=== PATIENT | female | born 1970 | race Caucasian/White ===

== ENCOUNTER → 2019-05-07 11:33 | Outpatient (CLI) | payer OTHER, MEDICAID, SELFPAY ==
[2019-05-07 14:25] LABS: Free T4, Direct Thyroxine 0.87 ng/dL (0.78-2.19)
== END ==
PROVIDERS: PCP Nurse Practitioner; Visit Provider Nurse Practitioner
DX: E03.9 Hypothyroidism, unspecified (principal)
CPT/HCPCS: 36415; 84439; 84443

== ENCOUNTER → 2019-09-10 09:50 | Outpatient (CLI) | payer MEDICARE, MEDICAID, SELFPAY ==
[2019-09-10 10:59] LABS: Add Manual Diff / Slide Review NO; Basophils Absolute Auto 100 /uL (0-100); Basophils Percent Auto 1.4 % (0-2); Eosinophils Absolute Auto 100 /uL (0-450); Eosinophils Percent Auto 1.9 % (2-4); Hematocrit 40.2 % (36-46); Hemoglobin 13.2 g/dL (12.0-16.0); Lymphocytes Absolute Auto 1800 /uL (1100-4500); Lymphocytes Percent Auto 24.9 % (25-40); Mean Corpuscular HGB Conc 32.9 % (30-36); Mean Corpuscular Hemoglobin 28.9 PG (26-34); Mean Corpuscular Volume 87.7 fL (80-100); Monocytes Absolute Auto 500 /uL (0-900); Monocytes Percent Auto 6.2 % (3-14); Neutrophils Absolute Auto 4800 /uL (1500-7000); Neutrophils Percent Auto 65.6 % (50-75); Platelet Count 235 X10^3/uL (150-400); Red Blood Cell Count 4.58 X10^6/uL (4.0-5.2); Red Cell Distribution Width 14.1 % (11.6-14.8); White Blood Cell Count 7.3 X10^3/uL (4.5-11.0)
[2019-09-10 11:40] LABS: Alanine Aminotransferase 55 IU/L (<35); Albumin 4.5 g/dL (3.5-5.0); Albumin Globulin Ratio 1.3 (1.0-2.8); Alkaline Phosphatase 123 U/L (38-126); Aspartate Aminotransferase 41 IU/L (14-36); Bilirubin Total 0.3 mg/dL (0.2-1.3); Blood Urea Nitrogen 21 mg/dL (7-17); Calcium 9.8 mg/dL (8.4-10.2); Carbon Dioxide 28 mmol/L (22-32); Chloride 101 mmol/L (98-107); Cholesterol 187 mg/dL (140-199); Estimated Glomerular Filt Rate > 60.0 mL/min (>60); Globulin 3.6 g/dL (1.7-4.1); Glucose 92 mg/dL (70-100); HDL Cholesterol 24 mg/dL (40-60); HEMOLYSIS < 15 (0-50); LDL Cholesterol Calculated 131 mg/dL (<100); Potassium 4.5 mmol/L (3.4-5.1); Sodium 138 mmol/L (137-145); Total Protein 8.1 g/dL (6.3-8.2); Triglycerides 160 mg/dL (35-150)
== END ==
PROVIDERS: PCP Nurse Practitioner; Referring Provider Nurse Practitioner; Visit Provider Nurse Practitioner
DX: E78.1 Pure hyperglyceridemia (principal); E78.5 Hyperlipidemia, unspecified
CPT/HCPCS: 36415; 80053; 80061; 85025

== ENCOUNTER 2019-09-30 16:31 | Emergency (ER) | payer MEDICARE, MEDICAID, SELFPAY ==
[2019-09-30 16:35] VITALS: BP 138/70; PULSE 80; RESP 16; TEMP 36.6; O2SAT 95; BMI 36.6
--- NOTE | 2019-09-30 16:38 | DI.CT.S_ITS ---
PROCEDURE: CT HEAD/BRAIN WO CON INDICATIONS: GLF, head injury, history of brain bleed TECHNIQUE: Noncontrast 4.5 mm thick angled axial sections acquired from the foramen magnum to the vertex, with coronal and sagittal reformats. For radiation dose reduction, the following was used: automated exposure control, adjustment of mA and/or kV according to patient size. COMPARISON: None. FINDINGS: Image quality: Excellent. CSF spaces: Basal cisterns are patent. Right MCA distribution aneurysm clip. No extra-axial fluid collections. Ventricles are normal in size and shape. Brain: Very large right MCA distribution chronic infarct with extensive encephalomalacia and compensatory dilatation of the right lateral ventricle. No midline shift. No intracranial masses or hemorrhage. Ignacio-white matter interface is normal. Skull and face: Remote right temporal cranial resection with prosthesis. Calvarium and visualized facial bones are intact, without suspicious lesions. Sinuses: Visualized sinuses and mastoids are clear. IMPRESSION: 1. Remote right MCA aneurysm clip, very large remote right MCA infarct. 2. No evidence acute stroke, hemorrhage, or mass Dictated by: Aldo Garcia M.D. on 09/30/2019 at 16:26 Approved by: Aldo Garcia M.D. on 09/30/2019 at 16:31
--- NOTE | 2019-09-30 16:38 | DI.RAD.S_ITS ---
PROCEDURE: XR SACRUM COCCYX MIN 2V INDICATIONS: Fall, coccyx pain TECHNIQUE: 3 views of the sacrum and coccyx acquired. COMPARISON: None. FINDINGS: Bones: No fractures or dislocations. No suspicious bony lesions. Soft tissues: Visualized bowel gas pattern is normal. No suspicious soft tissue densities. IMPRESSION: No evidence acute bony abnormality of the sacrum and coccyx. If clinical suspicion and/or symptoms persist, further assessment with repeat plain films, or advanced imaging (e.g., CT, MRI, or bone scan) may be helpful for further assessment. Dictated by: Aldo Garcia M.D. on 09/30/2019 at 16:35 Approved by: Aldo Garcia M.D. on 09/30/2019 at 16:36
[2019-09-30 17:51] VITALS: BP 110/59; PULSE 82; O2SAT 95
--- NOTE | 2019-09-30 18:03 | ED_ITS ---
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 Patient states she was walking a dog ran past her and knocked her over. She states she lost her balance and fell backward hitting the back of her head. She states when she hit her head she had right-sided frontal pain. She states this is the area where she was given artificial skull bone after her aneurysm repair. Patient denies any syncope, vision changes, vomiting, chest pain, shortness of breath, dizziness, or any other concerns. She denies any symptoms or feeling ill prior to the fall. Patient states she takes a daily aspirin, she denies any other blood thinners. Patient states her left arm is normally limp from past CVA, she also states she has decreased function of her left leg from past CVA. She denies any new sensations or muscle weakness. Related Data Home Medications Medication Instructions Recorded Confirmed famotidine 20 mg tablet 20 mg PO DAILY PRN 05/07/19 09/28/19 gabapentin 600 mg tablet 600 mg PO BID 05/07/19 09/28/19 ketoconazole 2 % topical cream 1 applictn TOP DAILY PRN 05/07/19 09/28/19 Previous Rx's Medication Instructions Recorded baclofen 10 mg tablet 20 mg PO .COMPLEX #450 tab 05/07/19 fluticasone propionate 50 1 spray NASAL DAILY #18.2 ml 05/07/19 mcg/actuation nasal spray,suspension levetiracetam 1,000 mg tablet 1,000 mg PO BID #180 tab 05/07/19 nortriptyline 50 mg capsule 50 mg PO BID #180 cap 05/07/19 polyethylene glycol 3350 17 17 gram PO DAILY #765 gram 05/07/19 gram/dose oral powder duloxetine 30 mg capsule,delayed 30 mg PO BID #180 cap 08/24/19 release levothyroxine 125 mcg tablet 125 mcg PO DAILY #90 tab 08/24/19 Allergies Allergy/AdvReac Type Severity Reaction Status Date / Time No Known Drug Allergies Allergy Verified 09/30/19 16:35 Review of Systems <KINJAL Morales - Last Filed: 09/30/19 18:31> Review of Systems Narrative: REVIEW OF SYSTEMS: GENERAL: Denies fever or chills. HENT: Reports head trauma, see HPI. EYES: No loss of vision, double vision, eye pain, or irritation. CARDIOVASCULAR: No chest pain or syncope. RESPIRATORY: No shortness of breath or cough. GASTROINTESTINAL: No nausea, vomiting, diarrhea, or constipation. MUSCULOSKELETAL: No pain, weakness, or deformities. INTEGUMENTARY: No rash, lesions, or pruritus. NEURO: No numbness, tingling, memory loss, or confusion. PSYCH: No behavior or mood changes. Patient History <KINJAL Morales - Last Filed: 09/30/19 18:31> Medical History ADHD (Chronic ~2014) Back pain with right-sided sciatica (Acute) Bleeding in brain due to brain aneurysm (Acute) Cervical somatic dysfunction (Acute) Chronic constipation (Chronic) Cranial somatic dysfunction (Acute) Dominant hemiplegia complicating stroke (Acute) Dry mouth, unspecified (Acute) Dysphagia (Acute) Elevated BP without diagnosis of hypertension (Acute) Excessive vitamin B12 intake (Acute) Family history of colon cancer (Acute) Fatigue (Acute) Generalized anxiety disorder (Acute) GERD (gastroesophageal reflux disease) (Chronic) Headache (Chronic) Hypothyroidism (Chronic) Iliotibial band syndrome, left leg (Acute) Irritable bowel syndrome (Chronic) Left hand weakness (Acute) Left hemiplegia (Acute) Major depressive disorder (Acute) Obesity (Acute) Obesity (BMI 35.0-39.9 without comorbidity) (Acute) Pelvic somatic dysfunction (Acute) Seasonal allergies (Acute) Segmental and somatic dysfunction of abdomen and other regions (Acute) Segmental and somatic dysfunction of lumbar region (Acute) Segmental and somatic dysfunction of rib cage (Acute) Segmental and somatic dysfunction of sacral region (Acute) Segmental and somatic dysfunction of thoracic region (Acute) Seizure disorder (Acute) Stiff neck (Acute) Stroke (Acute) Throat disorder (Chronic) Vision changes (Acute) Vision disorder (Chronic) Vitamin D deficiency (Acute) Surgical History Anesthesia (Resolved) Brain aneurysm (Resolved ~03/25/15) De Quervain's syndrome (tenosynovitis) (Resolved ~1996) Social History Smoking Status: Former smoker Smoking Status: Former smoker Exam <KINJAL Morales - Last Filed: 09/30/19 18:31> Initial Vital Signs Initial Vital Signs: Vital Signs Temperature 97.9 F 09/30/19 16:35 Pulse Rate 80 09/30/19 16:35 Respiratory Rate 16 09/30/19 16:35 Blood Pressure 138/70 09/30/19 16:35 Pulse Oximetry 95 09/30/19 16:35 PHYSICAL EXAMINATION: GENERAL: Well groomed, alert, and cooperative. Answers questions promptly and appropriately. Vital signs noted. HENT: Normocephalic. Ear canals patent. Oral mucosa is pink and moist. EYES: PERRLA, EOMIs, conjunctiva pink, sclera white, no periorbital swelling. NECK: Full ROM, no midline or spinal tenderness. CARDIOVASCULAR: S1 and S2 sounds normal. Regular rate and rhythm, no murmurs, clicks, or bruits. RESPIRATORY: Normal respiratory rate, trachea midline, airway patent. No stri lalitha, nasal flaring or accessory muscle use. Lungs are clear in all servin without wheeze, rhonchi, or crackles. MUSCULOSKELETAL: Left side deviation day, patient states normal. No spinal tenderness. No pain with palpation to shoulders, clavicles, back, elbows, wrists, hips, knees, or ankles. No obvious deformities. EXTREMITIES: CMS intact. Moves all extremities. SKIN: Warm, dry, soft, appropriate color for ethnicity. No lesions, rashes, or wounds to visualized areas. NEURO: Alert and Oriented X 3. GCS: 15. Good coordination. Patient walks with left leg instability due from past CVA. Cranial Nerves: II: Visual servin grossly intact. III & IV & : EOMIs V: Able to open and close jaw. VII: Facial movements symetrical. Able to close eyelids tightly. VIII: Hearing grossly intact, adequate balance. X: Uvula pronation intact. XI: Patient is able to shrug shoulders. XII: Patient is able to stick out tongue and move it side to side. PSYCH: Appropriate affect and mood. <Jus Greene MD - Last Filed: 10/03/19 07:36> Initial Vital Signs Initial Vital Signs: Vital Signs Temperature 97.9 F 09/30/19 16:35 Pulse Rate 80 09/30/19 16:35 Respiratory Rate 16 09/30/19 16:35 Blood Pressure 138/70 09/30/19 16:35 Pulse Oximetry 95 09/30/19 16:35 Scores <KINJAL Morales - Last Filed: 09/30/19 18:31> GCS Laura coma scale eye opening: Spontaneous [place] coma scale verbal response: Orientated Laura coma scale motor response: Obey commands [place] coma scale total score: 15 Nexus Score for C-Spine Focal Neurologic deficit present: No Midline spinal tenderness present: No Altered level of conciousness present: No Intoxication present: No Distracting Injury Present: No Nexus Criteria for C-spine: 0 Course <KINJAL Morales - Last Filed: 09/30/19 18:31> Orders Ordered: ED Orders 09/30/19 16:38 CT head/brain wo con Stat XR sacrum coccyx min 2V Stat Consultations Consultation #1: Patient staffed with Dr. Greene discussed symptoms, test results, and plan of care. Vital Signs Vital signs: Vital Signs - 8 hr 09/30/19 16:35 09/30/19 17:51 Temperature 97.9 F Pulse Rate 80 82 Respiratory Rate 16 Blood Pressure 138/70 Blood Pressure [Left Arm] 110/59 L Pulse Oximetry 95 95 <Jus Greene MD - Last Filed: 10/03/19 07:36> Orders Ordered: ED Orders 09/30/19 16:38 CT head/brain wo con Stat XR sacrum coccyx min 2V Stat Vital Signs Vital signs: Vital Signs - 8 hr 09/30/19 16:35 09/30/19 17:51 Temperature 97.9 F Pulse Rate 80 82 Respiratory Rate 16 Blood Pressure 138/70 Blood Pressure [Left Arm] 110/59 L Pulse Oximetry 95 95 MDM - Fall <KINJAL Morales - Last Filed: 09/30/19 18:31> Medical Records Attestation: I reviewed the patient's medical records. Lab Data Attestation: I reviewed the patient's lab results. Imaging Data CT scan - head: Radiologist's Impression: [address] [address] [address] Scan Report Signed Patient: Brittany Gastelum JMR#: [id number] : 1970Acct:[id number] Age/Sex: 49 / FDate of Service: 09/30/19 Loc: ED Accession Number: [id number] Procedure: CT head/brain wo con Ordering Provider: Lucia Shepard PROCEDURE: CT HEAD/BRAIN WO CON INDICATIONS: GLF, head injury, history of brain bleed TECHNIQUE: Noncontrast 4.5 mm thick angled axial sections acquired from the foramen magnum to the vertex, with coronal and sagittal reformats. For radiation dose reduction, the following was used: automated exposure control, adjustment of mA and/or kV according to patient size. COMPARISON: None. FINDINGS: Image quality: Excellent. CSF spaces: Basal cisterns are patent. Right MCA distribution aneurysm clip. No extra-axial fluid collections. Ventricles are normal in size and shape. Brain: Very large right MCA distribution chronic infarct with extensive encephalomalacia and compensatory dilatation of the right lateral ventricle. No midline shift. No intracranial masses or hemorrhage. Ignacio-white matter interface is normal. Skull and face: Remote right temporal cranial resection with prosthesis. Calvarium and visualized facial bones are intact, without suspicious lesions. Sinuses: Visualized sinuses and mastoids are clear. IMPRESSION: 1. Remote right MCA aneurysm clip, very large remote right MCA infarct. 2. No evidence acute stroke, hemorrhage, or mass Dictated by: Aldo Garcia M.D. on 09/30/2019 at 16:26 Approved by: Aldo Garcia M.D. on 09/30/2019 at 16:31 Coccyx X-ray: Radiologist's Impression: [address] [address] XRay Report Signed Patient: Brittany Gastelum SRIDEVIR#: [id number] : 1970Acct:[id number] Age/Sex: 49 / FDate of Service: 09/30/19 Loc: ED Accession Number: [id number] Procedure: XR sacrum coccyx min 2V Ordering Provider: Lucia Shepard PROCEDURE: XR SACRUM COCCYX MIN 2V INDICATIONS: Fall, coccyx pain TECHNIQUE: 3 views of the sacrum and coccyx acquired. COMPARISON: None. FINDINGS: Bones: No fractures or dislocations. No suspicious bony lesions. Soft tissues: Visualized bowel gas pattern is normal. No suspicious soft tissue densities. IMPRESSION: No evidence acute bony abnormality of the sacrum and coccyx. If clinical suspicion and/or symptoms persist, further assessment with repeat plain films, or advanced imaging (e.g., CT, MRI, or bone scan) may be helpful for further assessment. Dictated by: Aldo Garcia M.D. on 09/30/2019 at 16:35 Approved by: Aldo Garcia M.D. on 09/30/2019 at 16:36 [facility] Narrative Medical decision making narrative: 49-year-old female with a history of an aneurysm repair in CVA, presents emergency department after a ground level fall while hitting her head. Fall appears very mechanical as patient was tripped by a dog and she denies any symptoms prior to the fall. Patient does have balance issues due to deficits from prior CVA. Due to past history and head trauma, CT was ordered which is negative for any new acute fractures or bleeding. Patient's neuro examination was intact other than her past deficits of left-sided weakness which is patient's norm post CVA. Due to reports of coccyx pain, x-ray was ordered which was negative as well. Less concern for other distracting injuries due to lack of deformities on examination, no tenderness with palpation of all major joints. Patient remained awake and alert throughout the emergency department stay. She does not have any signs concerning for a severe concussion such as a headache, vomiting, or confusion. However, patient was encouraged to follow up with her primary care provider and return to the ED immediately for any new or worsening symptoms. Patient agreed to plan of care verbalized understanding. Discharge Plan Departure Patient Disposition: Home Clinical Impression: Fall from ground level Closed head injury Qualifiers: Encounter type: initial encounter Qualified Code(s): S09.90XA - Unspecified injury of head, initial encounter Discharge Date/Time: 09/30/19 18:23 Instructions: DI for Concussion, How to Prevent Falls Activity Restrictions/Additional Instructions: Thank you for entrusting me with your care today. As discussed, your head CT is negative for any acute fractures or bleeding. No fractures found on x-ray of your sacrum or coccyx. You may develop some symptoms of a concussion such as light sensitivity, mild headaches and mild fatigue. Please follow up with your primary care provider for further evaluation in 1-2 weeks. Return emergency department for any new or worsening symptoms such as severe headaches, uncontrollable vomiting, dizziness, chest pain, shortness of breath, vision changes, or any other concerns. Prescriptions: No Action duloxetine 30 mg capsule,delayed release(DR/EC) 30 mg PO BID Qty: 180 RF: 3 levothyroxine 125 mcg tablet 125 mcg PO DAILY Qty: 90 RF: 3 gabapentin 600 mg tablet 600 mg PO BID RF: 0 famotidine 20 mg tablet 20 mg PO DAILY PRN (Reason: GERD) RF: 0 ketoconazole 2 % cream 1 applictn TOP DAILY PRN (Reason: skin irritation) RF: 0 levetiracetam 1,000 mg tablet 1,000 mg PO BID Qty: 180 RF: 3 baclofen 10 mg tablet 20 mg PO .COMPLEX Qty: 450 RF: 3 fluticasone propionate [Allergy Relief (fluticasone)] 50 mcg/actuation spray,suspension 1 spray NASAL DAILY Qty: 18.2 RF: 11 nortriptyline 50 mg capsule 50 mg PO BID Qty: 180 RF: 3 polyethylene glycol 3350 [Miralax] 17 gram/dose powder 17 gram PO DAILY Qty: 765 RF: 11 Referrals: Amie Monique ARNP [Primary Care Provider] -
== END 2019-09-30 18:23 | disposition home or self-care (01) ==
PROVIDERS: Emergency Provider Nurse Practitioner; PCP Nurse Practitioner
DX: S09.90XA Unspecified injury of head, initial encounter (principal); M53.3 Sacrococcygeal disorders, not elsewhere classified; W18.30XA Fall on same level, unspecified, initial encounter
CPT/HCPCS: 70450; 72220; 99282; 99284

== ENCOUNTER → 2019-10-09 07:54 | Outpatient (CLI) | payer MEDICARE, MEDICAID, SELFPAY ==
[2019-10-09 10:21] LABS: Free T3, Triiodothyronine Free 2.54 pg/mL (2.77-5.27); Free T4, Direct Thyroxine 1.24 ng/dL (0.78-2.19)
[2019-10-09 10:34] LABS: Thyroid Stimulating Hormone 0.25 uIU/mL (0.47-4.68)
[2019-10-10 16:38] LABS: Creatinine Urine Random 91.2 mg/dL
[2019-10-10 16:42] LABS: Microalbumi Creatinin Ratio Ur 18.6 ug/mg CR (<30); Microalbumin Urine Random 1.7 mg/dL (0-1.6)
== END ==
PROVIDERS: PCP Nurse Practitioner; Referring Provider Nurse Practitioner; Visit Provider Nurse Practitioner
DX: E03.9 Hypothyroidism, unspecified (principal); E66.9 Obesity, unspecified; F32.9 Major depressive disorder, single episode, unspecified; F41.1 Generalized anxiety disorder; K59.09 Other constipation; Z79.899 Other long term (current) drug therapy; E78.1 Pure hyperglyceridemia; E78.5 Hyperlipidemia, unspecified
CPT/HCPCS: 36415; 82043; 82570; 84439; 84443; 84481

== ENCOUNTER → 2020-02-20 08:09 | Outpatient (CLI) | payer MEDICARE, MEDICAID, SELFPAY ==
[2020-02-20 10:20] LABS: Alanine Aminotransferase 34 IU/L (<35); Albumin 4.3 g/dL (3.5-5.0); Albumin Globulin Ratio 1.3 (1.0-2.8); Alkaline Phosphatase 112 U/L (38-126); Aspartate Aminotransferase 28 IU/L (14-36); BUN Creatinine Ratio 25.7 (6-22); Bilirubin Total 0.4 mg/dL (0.2-1.3); Blood Urea Nitrogen 19 mg/dL (7-17); Calcium 9.2 mg/dL (8.4-10.2); Carbon Dioxide 30 mmol/L (22-32); Chloride 102 mmol/L (98-107); Cholesterol 202 mg/dL (140-199); Estimated Glomerular Filt Rate > 60.0 mL/min (>60); Globulin 3.3 g/dL (1.7-4.1); Glucose 95 mg/dL (70-100); HDL Cholesterol 33 mg/dL (40-60); HEMOLYSIS < 15 (0-50); LDL Cholesterol Calculated 138 mg/dL (<100); Potassium 4.8 mmol/L (3.4-5.1); Sodium 139 mmol/L (137-145); Total Protein 7.6 g/dL (6.3-8.2); Triglycerides 156 mg/dL (35-150)
[2020-02-20 10:39] LABS: Thyroid Stimulating Hormone 2.51 uIU/mL (0.47-4.68)
== END ==
PROVIDERS: PCP Nurse Practitioner; Referring Provider Nurse Practitioner; Visit Provider Nurse Practitioner
DX: E03.9 Hypothyroidism, unspecified (principal); E66.9 Obesity, unspecified; E78.2 Mixed hyperlipidemia; F41.1 Generalized anxiety disorder; N95.0 Postmenopausal bleeding
CPT/HCPCS: 36415; 80053; 80061; 83001; 84443

== ENCOUNTER → 2020-03-14 08:30 | Outpatient (CLI) | payer MEDICARE, MEDICAID, SELFPAY | PROVIDERS: PCP Nurse Practitioner; Referring Provider Nurse Practitioner; Visit Provider Nurse Practitioner | DX: N63.31 Unspecified lump in axillary tail of the right breast (principal); N63.32 Unspecified lump in axillary tail of the left breast; Z53.8 Procedure and treatment not carried out for other reasons ==

== ENCOUNTER → 2020-04-08 12:32 | Outpatient (CLI) | payer MEDICARE, MEDICAID, SELFPAY ==
--- NOTE | 2020-04-08 | DI.US.S_ITS ---
ULTRASOUND OF RIGHT BREAST: 04/08/2020 CLINICAL: Palpable right axilla lump. Comparison is made to exams dated: 04/08/2020 mammogram - [facility] and 11/24/2018 mammogram - [facility]. Color flow ultrasound of the right breast was performed. Ignacio scale images of the real-time examination were reviewed. In the right axilla there is a oval-shaped 1.5 x 1.2 x 0.9 centimeter subcutaneous mass with internal echoes. Internal vascularity is questionable. IMPRESSION: PROBABLY BENIGN Given patient history of this palpable abnormality being present since 2005 and patient description of it having burst a couple of years ago like a boil, as well as its ultrasound appearance, this is likely a sebaceous cyst. Recommend surgical excision. This exam was interpreted at Station ID: [id number]. Electronically Signed By: Nahum Escobar acr/:04/08/2020 15:47:38 letter sent: Clinical Evaluation Ultrasound BI-RADS: 3 Probably benign
--- NOTE | 2020-04-08 | DI.MG.S_ITS ---
BILATERAL DIGITAL DIAGNOSTIC MAMMOGRAM 3D/2D: 04/08/2020 CLINICAL: Right axillary lump. Comparison is made to exam dated: 11/24/2018 mammogram - [facility]. There are scattered fibroglandular elements in both breasts. There is a palpable lump in the right axillary tail which was marked but has no correlating mammographic abnormality. No other significant masses, calcifications, or other findings are seen in either breast. IMPRESSION: INCOMPLETE: NEEDS ADDITIONAL IMAGING EVALUATION No mammographic abnormality. US will be performed and dictated separately. Electronically Signed By: Nahum Escobar acr/:04/08/2020 14:23:00 ACR BI-RADS Category 0: Incomplete [id number]
== END ==
PROVIDERS: PCP Nurse Practitioner; Referring Provider Nurse Practitioner; Visit Provider Nurse Practitioner
DX: R92.2 Inconclusive mammogram (principal); N63.31 Unspecified lump in axillary tail of the right breast
CPT/HCPCS: 76882; 77066; G0279

== ENCOUNTER 2020-05-05 12:36 | Emergency (ER) | payer MEDICARE, MEDICAID, SELFPAY ==
[2020-05-05 12:30] VITALS: BP 120/66; PULSE 83; RESP 16; TEMP 36.7; O2SAT 97
--- NOTE | 2020-05-05 12:31 | DI.RAD.S_ITS ---
PROCEDURE: XR HIP W PEL IF DONE LT 2V INDICATIONS: fall with hip pain TECHNIQUE: AP pelvis with lateral view(s) of the left hip(s). COMPARISON: None. FINDINGS: Bones: Question tiny avulsion off the greater trochanter of the left versus a faint calcification. No other fractures or dislocations. Pelvic ring appears intact. No suspicious bony lesions. Soft tissues: The visualized bowel gas pattern is normal. No suspicious soft tissue calcifications. IMPRESSION: Question faint calcification versus tiny avulsion off the greater trochanter of the left hip. Dictated by: Aldo Garcia M.D. on 05/05/2020 at 13:02 Approved by: Aldo Garcai M.D. on 05/05/2020 at 13:03
--- NOTE | 2020-05-05 12:32 | ED_ITS ---
HPI - Fall General Chief Complaint: Fall Stated Complaint: Ground level fall Time Seen by Provider: 05/05/20 12:38 Source: patient and EMS Mode of arrival: EMS Limitations: no limitations History of Present Illness HPI Narrative: 50-year-old female with a history of multiple strokes resulting in left-sided weakness presents by EMS for evaluation of a ground level fall with left hip pain. She states that she was transferring from chair to wheelchair when she slid out and landed on her left hip. She states her pain is minor and was even able to stand on it with the help of our local fire department. She is otherwise well and free of complaint. She has full recall. She denies any head, neck or back pain. Related Data Home Medications Medication Instructions Recorded Confirmed famotidine 20 mg tablet 20 mg PO DAILY PRN 05/07/19 04/23/20 ketoconazole 2 % topical cream 1 applictn TOP DAILY PRN 05/07/19 04/23/20 coenzyme Q10 200 mg capsule 200 mg PO BID cap 12/24/19 04/23/20 Previous Rx's Medication Instructions Recorded fluticasone propionate 50 1 spray NASAL DAILY #18.2 ml 05/07/19 mcg/actuation nasal spray,suspension Repair or replace AFO, left #1 ea 12/24/19 duloxetine 30 mg capsule,delayed 30 mg PO BID #180 cap 12/31/19 release gabapentin 600 mg tablet 600 mg PO BID #180 tab 12/31/19 levetiracetam 1,000 mg tablet 1,000 mg PO BID #180 tab 12/31/19 levothyroxine 112 mcg tablet 112 mcg PO DAILY #90 tab 12/31/19 nortriptyline 50 mg capsule 50 mg PO BID #180 cap 12/31/19 polyethylene glycol 3350 17 17 gram PO DAILY #765 gram 12/31/19 gram/dose oral powder baclofen 10 mg tablet 20 mg PO .COMPLEX #450 tab 01/01/20 Disabled [address]ing Permit See Rx Instructions .ROUTE 02/12/20 .COMPLEX #1 unit GivMohr sling #1 ea 02/12/20 fluconazole 150 mg tablet 150 mg PO Q3D #2 tab 03/25/20 nystatin 100,000 unit/gram topical 1 applic TOPICAL BID #30 g 03/25/20 powder medroxyprogesterone 10 mg tablet 10 mg PO DAILY #30 tab 04/23/20 Allergies Allergy/AdvReac Type Severity Reaction Status Date / Time No Known Drug Allergies Allergy Verified 04/23/20 10:04 Review of Systems Constitutional Constitutional: Denies chills, Denies fatigue, Denies fever(s), Denies frequent falls, Denies lethargy and Denies weakness Eyes Eyes: Denies change in vision, Denies eye discharge, Denies irritation and Denies loss of vision ENT Ears, Nose, Mouth, and Throat: Denies change in voice, Denies dizziness, Denies neck pain, Denies sore throat and Denies throat swelling Cardiovascular Cardiovascular: Denies chest pain, Denies irregular heart rhythm, Denies lightheadedness, Denies palpitations, Denies dyspnea, Denies dyspnea on exertion and Denies orthopnea Respiratory Respiratory: Denies cough, Denies dyspnea, Denies dyspnea on exertion and Denies wheezing Gastrointestinal Gastrointestinal: Denies abdominal pain, Denies change in bowel habits, Denies diarrhea, Denies nausea and Denies vomiting Musculoskeletal Musculoskeletal: Reports arthralgias, Denies neck pain and Denies numbness Integumentary/Breasts Skin/Breast: Denies pruritus, Denies erythema, Denies rash and Denies wounds Neurologic Neurologic: Denies behavioral changes, Denies confusion, Denies dizziness, Denies frequent falls, Denies loss of vision, Denies numbness and Denies weakness Psychiatric Psychiatric: Denies anxiety, Denies behavioral changes, Denies confusion, Denies depression, Denies homicidal ideation and Denies suicidal ideation Endocrine Endocrine: Denies fatigue, Denies flushing and Denies palpitations Hematologic/Lymphatic Hematologic/Lymphatic: Denies easy bruising Allergic/Immunologic Allergic/Immunologic: Denies urticaria, Denies throat swelling and Denies wheezing Patient History Medical History ADHD (~2014) Back pain with right-sided sciatica Bleeding in brain due to brain aneurysm Cervical somatic dysfunction Chronic constipation Chronic neck pain Constipation Cranial somatic dysfunction Dominant hemiplegia complicating stroke Dry mouth, unspecified Dysphagia Elevated BP without diagnosis of hypertension Excessive vitamin B12 intake Family history of colon cancer Fatigue Foot drop, left Generalized anxiety disorder GERD (gastroesophageal reflux disease) Headache Hypothyroidism Iliotibial band syndrome, left leg Irritable bowel syndrome Left hand weakness Left hemiplegia Major depressive disorder Mass of right axilla Menorrhagia Mixed hyperlipidemia Obesity Obesity (BMI 35.0-39.9 without comorbidity) Pelvic somatic dysfunction Right wrist pain Seasonal allergies Segmental and somatic dysfunction of abdomen and other regions Segmental and somatic dysfunction of lumbar region Segmental and somatic dysfunction of rib cage Segmental and somatic dysfunction of sacral region Segmental and somatic dysfunction of thoracic region Seizure disorder Stiff neck Stroke Throat disorder Vision changes Vision disorder Vitamin D deficiency Weight gain finding Surgical History Anesthesia Brain aneurysm (~03/25/15) De Quervain's syndrome (tenosynovitis) (~1996) Social History Smoking Status: Former smoker alcohol intake frequency: 0-2 drinks per day Substance Use Type: does not use Exam Narrative Exam Narrative: GENERAL: [50] year old patient appears stated age. Well- nourished, well-developed patient, in mild distress. GCS 15 HEAD: Atraumatic. Normocephalic. EYES: Pupils equal round and reactive. Extraocular motions intact. No scleral icterus. No injection or drainage. ENT: Nose without bleeding, purulent drainage. Throat without erythema, tonsillar hypertrophy or exudate. Airway patent. NECK: Trachea midline. Non tender CARDIOVASCULAR: Regular rate and rhythm without murmurs, gallops, or rubs. RESPIRATORY: Clear to auscultation. Breath sounds equal bilaterally. No wheezes, rales, or rhonchi. GASTROINTESTINAL: Abdomen soft, non-tender, nondistended. EXTREMITIES: No edema or joint tenderness. BACK: Nontender without deformity or crepitance. No flank tenderness. NEURO: AOx3. Left-side upper and lower extremity weakness, left lower extremity in brace, no shortening or external rotation, very minimal pain to palpation of left hip SKIN: No rash or erythema of visible areas Initial Vital Signs Initial Vital Signs: Vital Signs Temperature 98.0 F 05/05/20 12:30 Pulse Rate 83 05/05/20 12:30 Respiratory Rate 16 05/05/20 12:30 Blood Pressure 120/66 05/05/20 12:30 Pulse Oximetry 97 05/05/20 12:30 Course Orders Ordered: ED Orders 05/05/20 12:31 XR hip w pel if done LT 2V Stat MDM - Fall Imaging Data Hip Xray: Radiologist's Impression: No obvious fx, possible calcification or small avulsion of trochanter Discharge Plan Departure Patient Disposition: Home Clinical Impression: Acute pain of left hip Instructions: How to Prevent Falls Activity Restrictions/Additional Instructions: *You have been diagnosed with [left hip pain after fall. X-ray shows no hip fracture, however there may be a little tiny avulsion associated with your fall. This does not require any specific treatment other than pain control] *What to do: *Take medications as directed *Follow up with your primary care provider in 2-3 days, call for an appointment. Let them know you were seen in the Emergency Department and that we ask that you be seen in follow up *Return to ER if you should have any new, worsening or concerning symptoms Prescriptions: No Action levetiracetam 1,000 mg tablet 1,000 mg PO BID Qty: 180 RF: 3 levothyroxine [Synthroid] 112 mcg tablet 112 mcg PO DAILY Qty: 90 RF: 3 gabapentin 600 mg tablet 600 mg PO BID Qty: 180 RF: 1 duloxetine 30 mg capsule,delayed release(DR/EC) 30 mg PO BID Qty: 180 RF: 1 nortriptyline 50 mg capsule 50 mg PO BID Qty: 180 RF: 1 polyethylene glycol 3350 [Miralax] 17 gram/dose powder 17 gram PO DAILY Qty: 765 RF: 5 baclofen 10 mg tablet 20 mg PO .COMPLEX Qty: 450 RF: 3 medroxyprogesterone 10 mg tablet 10 mg PO DAILY Qty: 30 RF: 1 famotidine 20 mg tablet 20 mg PO DAILY PRN (Reason: GERD) RF: 0 ketoconazole 2 % cream 1 applictn TOP DAILY PRN (Reason: skin irritation) RF: 0 fluticasone propionate [Allergy Relief (fluticasone)] 50 mcg/actuation spray,suspension 1 spray NASAL DAILY Qty: 18.2 RF: 11 coenzyme Q10 200 mg capsule 200 mg PO BID RF: 0 (DME) Repair or replace AFO, left Qty: 1 RF: 0 Disabled Parking Permit See Rx Instructions .ROUTE .COMPLEX Qty: 1 RF: 0 (DME) GivMohr sling Qty: 1 RF: 0 fluconazole [Diflucan] 150 mg tablet 150 mg PO Q3D Qty: 2 RF: 0 nystatin 100,000 unit/gram powder 1 applic topical BID Qty: 30 RF: 2 Referrals: Amie Monique ARNP [Primary Care Provider] -
[2020-05-05 12:49] VITALS: BP 141/82; PULSE 77; O2SAT 93
== END 2020-05-05 13:57 | disposition home or self-care (01) ==
PROVIDERS: Emergency Provider Emergency Medicine; PCP Nurse Practitioner
DX: M25.552 Pain in left hip (principal); W19.XXXA Unspecified fall, initial encounter
CPT/HCPCS: 73502; 99283

== ENCOUNTER → 2020-05-08 12:18 | Outpatient (CLI) | payer MEDICARE, MEDICAID, SELFPAY ==
[2020-05-08 13:39] LABS: COVID19 -Nasal RAPID Negative (Negative)
== END ==
PROVIDERS: PCP Nurse Practitioner; Visit Provider Registered Nurse
DX: R05 Cough (principal); R06.02 Shortness of breath; R50.9 Fever, unspecified; R53.83 Other fatigue
CPT/HCPCS: 87635

== ENCOUNTER → 2020-05-08 12:40 | Outpatient (CLI) | payer MEDICARE, MEDICAID, SELFPAY ==
--- NOTE | 2020-05-08 12:41 | DI.RAD.S_ITS ---
PROCEDURE: XR CHEST 2V INDICATIONS: SHORTNESS OF BREATH TECHNIQUE: 2 views of the chest were acquired. COMPARISON: None. FINDINGS: Surgical changes and devices: None. Lungs and pleura: Lungs are clear. No pleural effusions or pneumothorax. Mediastinum: Mediastinal contours are normal. Heart size is normal. Bones and chest wall: No suspicious bony abnormalities. Soft tissues appear unremarkable. IMPRESSION: No acute disease. Dictated by: Elena Velásquez M.D. on 05/08/2020 at 12:56 Approved by: Elena Velásquez M.D. on 05/08/2020 at 12:57
== END ==
PROVIDERS: PCP Nurse Practitioner; Referring Provider Nurse Practitioner; Visit Provider Registered Nurse
DX: R06.02 Shortness of breath (principal); R05 Cough; R50.9 Fever, unspecified; R53.83 Other fatigue
CPT/HCPCS: 71046; 87635

== ENCOUNTER 2020-07-25 10:33 | Outpatient (RCR) | payer MEDICARE, MEDICAID, SELFPAY ==
--- NOTE | 2020-07-25 14:05 | OT.OP.EVAL ---
Visit Care Team Role Provider Type KINJAL Cooper Attending Provider Advanced Sign Builder Primary Care Provider Referring Provider Specialty: [facility] Address: [address] [place] [address], [id number] Email: [email or web address] Evaluation only for wheelchair for one visit only and discharge services. Please refer to scanned Multidisciplinary Evaluation Report.
== END 2020-07-28 07:49 ==
LOC: OT 10:33
PROVIDERS: PCP Nurse Practitioner; Referring Provider Nurse Practitioner; Visit Provider Nurse Practitioner
DX: G81.94 Hemiplegia, unspecified affecting left nondominant side (principal)
CPT/HCPCS: 97167; 97535; 97542

== ENCOUNTER → 2020-08-01 10:32 | Outpatient (CLI) | payer MEDICARE, MEDICAID, SELFPAY ==
[2020-08-01 12:17] LABS: Cholesterol 198 mg/dL (140-199); HDL Cholesterol 31 mg/dL (40-60); LDL Cholesterol Calculated 131 mg/dL (<100); Triglycerides 179 mg/dL (35-150)
[2020-08-01 12:36] LABS: Free T3, Triiodothyronine Free 2.84 pg/mL (2.77-5.27); Free T4, Direct Thyroxine 1.31 ng/dL (0.78-2.19)
[2020-08-01 12:49] LABS: Thyroid Stimulating Hormone 0.749 uIU/mL (0.47-4.68)
== END ==
PROVIDERS: PCP Nurse Practitioner; Referring Provider Nurse Practitioner; Visit Provider Nurse Practitioner
DX: E03.9 Hypothyroidism, unspecified (principal); E78.2 Mixed hyperlipidemia; Z79.899 Other long term (current) drug therapy
CPT/HCPCS: 36415; 80061; 84439; 84443; 84481

== ENCOUNTER 2020-10-13 10:30 | Outpatient (RCR) | payer MEDICARE, MEDICAID, SELFPAY ==
--- NOTE | 2019-11-15 11:43 | OT.OP.EVAL ---
Visit Care Team Role Provider Type KINJAL Cooper Attending Provider Advanced Farmworker [employer] Primary Care Provider Referring Provider Specialty: Family Practice Address: [address] [place] [address], [facility] Email: [email or web address] Occupational Therapy Initial Evaluation OT Outpatient Adult Evaluation Start: 11/15/19 09:37 Freq: Status: Active Protocol: Document 11/15/19 09:37 AMS (Rec: 11/15/19 10:29 AMS [id number]) General Information Visit Start Time 08:30 Visit Stop Time 09:20 Total Visit Minutes 50 Plan of Care Dates 11/15/19-02/07/20 Insurance Information [facility] Medicare Advantage; KX at 20 visits Treatment Setting Outpatient Care Note Type Initial Evaluation Referring Physician Amie Monique MD Reason for Referral L UE weakness; contracture of muscle, left upper arm Identification Confirmed Yes: Photo ID Range of Motion Right Active Elbow/Forearm ROM WFL Yes Forearm ROM Testing Position Sitting Left Elbow/Forearm ROM WFL No Forearm ROM Testing Position Sitting Shoulder Flex AROM (degrees) 0-10 Query Text: Shoulder Flex PROM (degrees) 0-80 Query Text: Shoulder Ext AROM (degrees) 0-25 Shoulder Ext PROM (degrees) 0-50 Shoulder Abd AROM (degrees) 0-0 Shoulder IR AROM (degrees) 0-10 Shoulder IR PROM (degrees) WFL Shoulder ER AROM (degrees) 0-0 Shoulder ER PROM (degrees) 0-30 Limitations Soft Tissue Tightness, Contracture,Muscle Tone,Pain Right Active Elbow/Forearm ROM WFL Yes Forearm ROM Testing Position Sitting Left Elbow/Forearm ROM WFL No Forearm ROM Testing Position Sitting Elbow Flex AROM (degrees) 0-5 Elbow Flex PROM (degrees) 0-130 Elbow Ext AROM (degrees) 0-5 Elbow Ext PROM (degrees) 0-130 Forearm Pron AROM (degrees) 0-0 Forearm Pron PROM (degrees) WFL Forearm Sup AROM (degrees) 0-0 Forearm Sup PROM (degrees) WFL Left Wrist ROM WFL No Wrist ROM Testing Position Sitting Wrist Flex AROM (degrees) 0-0 Wrist Flex PROM (degrees) WFL Wrist Ext AROM Fingers Open (degrees) 0-0 Wrist Ext PROM Fingers Open (degrees) 0-0 Wrist Ext AROM Fingers Flexed (degrees) 0-0 Wrist Ext PROM Fingers Flexed (degrees) WFL Ulnar Deviation AROM (degrees) 0-0 Ulnar Deviation PROM (degrees) WFL Radial Deviation AROM (degrees) 0-0 Radial Deviation PROM (degrees) WFL Goals Treatment Facilitation of active sh ext 1 x 10; elbow flex 1 x 10; elbow ext 1 x 10. Facilitation of scapular mobility with retraction/protraction of L scapula 1 x 10 w/ functional movement patterns. Short Term Goals 1. 0-15 degrees active L elbow flexion. 2. 0-15 degrees active L elbow extension. 3. 0-45 degrees active L shoulder extension. Prison Goals 1. Brittany will be modified independent with execution of upper extremity home exercise program (including UE ROM, positioning) with support of family and caregivers utilizing provided written and visual instructions from therapist. Assessment/Plan Treatment Assessment Brittany is a 49 year-old right hand dominant female referred to outpatient OT by PCP, Amie Monique MD, secondary to L UE weakness, other symptoms and signs involving the musuloskeletal system, contracture of muscle of L upper arm. Patient reported that she suffered a stroke in 2014 after having surgery for brain aneurysm; Brittany stated that it occurred while she was residing in [place]. Brittany reportedly moved frequently since date of onset to present day. Brittany has prox L sh stabilization brace; she reports that she has to have brace or encounters pain half way through the day. She also has night splint that she says doesn't work/doesn't stay in her hand. She has several Saebo products to encourage muscle contraction of the UE (e-stim to facilitate elbow flex/ext); she has a mirror box; she receives dry needling 2 x per month. She is receiving outpatient PT. PMH: Significant for memory loss; neck pain; neuropathy; seizures; stroke; thyroid disorder; traumatic brain inj; vision problems. Patient complaints: Loss of active range of motion of L UE . Evaluation Findings: R hand dominant; ambulates with quad cane; has manual w/c and power w/c; c/o pain in R distal UE w/ use of mobility AE w/ intermittent report of nerve compression; pain of posterior neck/lateral neck/between scapulae 3/10 on pain scale; pain of L lumbar region and distal L lateral LE 5/10 on pain scale; pain of R hand 4/ 10 on pain scale. Decreased functional independence w/ BADLS; based on self-report, Brittany is able to doff and don UB and LB clothing w/ mod I (besides assist w/ management of bra), is mod I w / toileting, and requires supervision w/ showering d/t seizures. Impaired posture; bilateral rounding of shoulders, forward positioning of head w/ chin protrusion, and IR of L sh. (-) arm swing and increased body weight placed through quad cane. Tightness of neck musculature and decreased L scapular mobility; decreased L lateral neck rotation ROM vs R. Decreased active ROM of L UE. Decreased motor planning of the L UE. Decreased orientation to midline. Impaired sensation of UE. Outpatient OT is recommended for education re: positioning and development of appropriate of UE HEP; it is also recommended to address UE pain and ROM. Reviewed with Patient Goals Comment 12 weeks Comment 1-2 times per week Therapeutic Contents Active Range of Motion, Adaptive Equipment Education, Client Education,Cognitive Skills Development,Functional Activities,Home Exercise Program,Joint Protection, Manual Therapy,Education, Neurodevelopment Treatment, Neuromuscular Re-Education, Self-Care,Splinting,Stretching /Flexibility Activities, Therapeutic Activities, Therapeutic Exercises, Modalities,Sensory Re- education Modalities As Needed,As Prescribed Types of Modalities E-Stim,Functional Stimulation (FES),Ice Massage,T.E.N. Stimulation,TENS Placement/ Application Additional Types of Modalities Heat
--- NOTE | 2019-11-21 13:07 | OT.OP.TRT ---
Visit Care Team Role Provider Type KINJAL Cooper Attending Provider Advanced Route Jumper Primary Care Provider Referring Provider Specialty: Family Practice Address: [address] [place] [address], [facility] Email: [email or web address] Occupational Therapy Treatment Note OT Outpatient Treatment Note - Adult Start: 11/15/19 09:37 Freq: Status: Active Protocol: Document 11/21/19 12:52 AMS (Rec: 11/21/19 13:07 AMS [id number]) OT Outpatient Adult Treatment Note Session Time Visit Start Time 10:30 Visit Stop Time 11:18 Total Visit Minutes 48 Visit Information Plan of Care Dates 11/15/19-02/07/20 Insurance Information [facility] Medicare Advantage; KX at 20 visits Setting Treatment Setting Outpatient Care Visit Type Note Type Treatment Note General Information General Information Brittany is a 49 year-old right hand dominant female referred to outpatient OT by PCP, Amie Monique MD, secondary to L UE weakness, other symptoms and signs involving the musuloskeletal system, contracture of muscle of L upper arm. Patient reported that she suffered a stroke in 2014 after having surgery for brain aneurysm; Brittany stated that it occurred while she was residing in [place]. Brittany reportedly moved frequently since date of onset to present day. Brittany has prox L sh stabilization brace; she reports that she has to have brace or encounters pain half way through the day. She also has night splint that she says doesn't work/doesn't stay in her hand. She has several Saeb[employer] products to encourage muscle contraction of the UE (e-stim to facilitate elbow flex/ext); she has a mirror box; she receives dry needling 2 x per month. She is receiving outpatient PT. PMH: Significant for memory loss; neck pain; neuropathy; seizures; stroke; thyroid disorder; traumatic brain inj; vision problems. - Subjective Identification Type Name Identification Reconciled With Medical Record Observations I had a seizure on Tuesday per Brittany. I had the dry needling done yesterday and I was and I am still super sore . I forgot to bring in all my things. - Objective Objective Measurements Please refer to below for progress towards meeting established goals. Short Term Goals 1. 0-15 degrees active L elbow flexion. 2. 0-15 degrees active L elbow extension. 3. 0-45 degrees active L shoulder extension. Halfway Goals 1. Brittany will be modified independent with execution of upper extremity home exercise program (including UE ROM, positioning) with support of family and caregivers utilizing provided written and visual instructions from therapist. - Treatment 1 Descriptor HEP/POC. Will need to provide caregiver education; increased success w/ execution w/ therapeutic facilitation, as well as given impaired memory. Exercises 5 Descriptor Tone management. WB yoga ball at hip height. 1 x 10; 1 x 5. Therapist facilitation. Elbow ext. WB into palm w/ digits extended. 4 Descriptor Neurofacilitation. Functional reaching pattern. 1 x 10. Therapist facilitation. 3 Descriptor Sh ROM. 2 Descriptor Elbow UE ROM. Elbow ext. 1 x 10. Elbow ext. TB #1. 1 x 10. Elbow flex. 1 x 10. Muscle tapping. 1 Descriptor TT UE ROM. Sh flex. 1 x 10. Sh hor abd. 1 x 10. Sh abd. 1 x 10. - Assessment Assessment of Improvement Advanced activities/exercises on this treatment date. Patient recently suffered a seizure. She presented w/ increased fatigue. Therapist also noted impaired memory on this date (identification of source of in-hand splint). Patient inquired about driving rehab; iinformed that this specialty is not provided at this outpatient clinic. Recommend seeking out local resources for this specialty. Outpatient OT is recommended for education re: positioning and development of appropriate of UE HEP; it is also recommended to address UE pain and ROM. Recommended activities: neuro facilitation/re-ed; ther ex; ther act; functional activities; bimanual coordination [ End ] Home Exercise Program Please refer to treatment section of note for specific details. - Plan Therapy Recommendations Continue with Current Program, Advance per Rehabilitation Protocol
--- NOTE | 2019-11-21 13:08 | OT.OP.TRT ---
Visit Care Team Role Provider Type KINJAL Cooper Attending Provider Advanced Cephalometric Technician Primary Care Provider Referring Provider Specialty: Family Practice Address: [address] [place] [address], [facility] Email: [email or web address] Occupational Therapy Treatment Note OT Outpatient Treatment Note - Adult Start: 11/15/19 09:37 Freq: Status: Active Protocol: Document 11/21/19 12:52 AMS (Rec: 11/21/19 13:07 AMS [id number]) OT Outpatient Adult Treatment Note Session Time Visit Start Time 10:30 Visit Stop Time 11:18 Total Visit Minutes 48 Visit Information Plan of Care Dates 11/15/19-02/07/20 Insurance Information [facility] Medicare Advantage; KX at 20 visits Setting Treatment Setting Outpatient Care Visit Type Note Type Treatment Note General Information General Information Brittany is a 49 year-old right hand dominant female referred to outpatient OT by PCP, Amie Monique MD, secondary to L UE weakness, other symptoms and signs involving the musuloskeletal system, contracture of muscle of L upper arm. Patient reported that she suffered a stroke in 2014 after having surgery for brain aneurysm; Brittany stated that it occurred while she was residing in [place]. Brittany reportedly moved frequently since date of onset to present day. Brittany has prox L sh stabilization brace; she reports that she has to have brace or encounters pain half way through the day. She also has night splint that she says doesn't work/doesn't stay in her hand. She has several [employer] products to encourage muscle contraction of the UE (e-stim to facilitate elbow flex/ext); she has a mirror box; she receives dry needling 2 x per month. She is receiving outpatient PT. PMH: Significant for memory loss; neck pain; neuropathy; seizures; stroke; thyroid disorder; traumatic brain inj; vision problems. - Subjective Identification Type Name Identification Reconciled With Medical Record Observations I had a seizure on Tuesday per Brittany. I had the dry needling done yesterday and I was and I am still super sore . I forgot to bring in all my things. - Objective Objective Measurements Please refer to below for progress towards meeting established goals. Short Term Goals 1. 0-15 degrees active L elbow flexion. 2. 0-15 degrees active L elbow extension. 3. 0-45 degrees active L shoulder extension. Senior Care Goals 1. Brittany will be modified independent with execution of upper extremity home exercise program (including UE ROM, positioning) with support of family and caregivers utilizing provided written and visual instructions from therapist. - Treatment 1 Descriptor HEP/POC. Will need to provide caregiver education; increased success w/ execution w/ therapeutic facilitation, as well as given impaired memory. Exercises 5 Descriptor Tone management. WB yoga ball at hip height. 1 x 10; 1 x 5. Therapist facilitation. Elbow ext. WB into palm w/ digits extended. 4 Descriptor Neurofacilitation. Functional reaching pattern. 1 x 10. Therapist facilitation. 3 Descriptor Sh ROM. 2 Descriptor Elbow UE ROM. Elbow ext. 1 x 10. Elbow ext. TB #1. 1 x 10. Elbow flex. 1 x 10. Muscle tapping. 1 Descriptor TT UE ROM. Sh flex. 1 x 10. Sh hor abd. 1 x 10. Sh abd. 1 x 10. - Assessment Assessment of Improvement Advanced activities/exercises on this treatment date. Patient recently suffered a seizure. She presented w/ increased fatigue. Therapist also noted impaired memory on this date (identification of source of in-hand splint). Patient inquired about driving rehab; iinformed that this specialty is not provided at this outpatient clinic. Recommend seeking out local resources for this specialty. Outpatient OT is recommended for education re: positioning and development of appropriate of UE HEP; it is also recommended to address UE pain and ROM. Recommended activities: neuro facilitation/re-ed; ther ex; ther act; functional activities; bimanual coordination [ End ] Home Exercise Program Please refer to treatment section of note for specific details. 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
--- NOTE | 2019-12-05 11:51 | OT.OP.TRT ---
Visit Care Team Role Provider Type KINJAL Cooper Attending Provider Advanced [employer]worker [employer] Primary Care Provider Referring Provider Specialty: Family Practice Address: [address] [place] [address], [facility] Email: [email or web address] Occupational Therapy Treatment Note OT Outpatient Treatment Note - Adult Start: 11/15/19 09:37 Freq: Status: Active Protocol: Document 12/05/19 08:35 [facility] (Rec: 12/05/19 09:12 [facility] [id number]) OT Outpatient Adult Treatment Note Session Time Visit Start Time 08:35 Visit Stop Time 09:25 Total Visit Minutes 50 Visit Information Plan of Care Dates 11/15/19-02/07/20 Insurance Information [facility] Medicare Advantage; KX at 20 visits Setting Treatment Setting Outpatient Care Visit Type Note Type Treatment Note General Information General Information Brittany is a 49 year-old right hand dominant female referred to outpatient OT by PCP, Amie Monique MD, secondary to L UE weakness, other symptoms and signs involving the musuloskeletal system, contracture of muscle of L upper arm. Patient reported that she suffered a stroke in 2014 after having surgery for brain aneurysm; Brittany stated that it occurred while she was residing in [place]. Brittany reportedly moved frequently since date of onset to present day. Brittany has prox L sh stabilization brace; she reports that she has to have brace or encounters pain half way through the day. She also has night splint that she says doesn't work/doesn't stay in her hand. She has several [employer] products to encourage muscle contraction of the UE (e-stim to facilitate elbow flex/ext); she has a mirror box; she receives dry needling 2 x per month. She is receiving outpatient PT. PMH: Significant for memory loss; neck pain; neuropathy; seizures; stroke; thyroid disorder; traumatic brain inj; vision problems. - Subjective Identification Type Name Identification Reconciled With Medical Record Observations I forgot to take my meds this morning for seizures and pain per Brittany. They recommended I use it daily for 20 minutes. I haven't been as good about doing it per Brittany. - Objective Objective Measurements Please refer to below for progress towards meeting established goals. Short Term Goals 1. 0-15 degrees active L elbow flexion. 2. 0-15 degrees active L elbow extension. 3. 0-45 degrees active L shoulder extension. Impregnator And Drier Helper Goals 1. Brittany will be modified independent with execution of upper extremity home exercise program (including UE ROM, positioning) with support of family and caregivers utilizing provided written and visual instructions from therapist. - Treatment 1 Descriptor HEP/POC. Caregiver was briefly present during outpatient OT session; recommended facilitation of elbow flex and elbow ext in supine w/ trunk and proximal UE supported on surface. Caregiver and Brittany denied questions. Exercises 7 Descriptor Supine ROM. Sh ext. Assist to facilitate. 1 x 10. Chest press. Assist to facilitate. 1 x 10. Sh flex. 1 x 10. Chest stretch. 6 Descriptor Sh ROM. Scapular pinches. 1 x 10. Sh ext. 1 x 10. 2 Descriptor Elbow UE ROM. Elbow ext. 1 x 10. Elbow ext. TB #1. 2 x 10. Elbow flex. 1 x 10. Muscle tapping. - Assessment Assessment of Improvement Initiated supine exercises w/ and without cane. Discussed potential placement of e-stim pads distally to facilitate wrist and digit extension in future as ability to motor plan elbow flex/ext improves. Discussed proximal -> distal return. Discussed alt option to current sling (givMOHR). Provided some caregiver training w/ focus on active elbow flex/ext supine. Impaired posture; pec tightness L side; h/o tightness through chest per patient. Outpatient OT is recommended for education re: positioning and development of appropriate of UE HEP; it is also recommended to address UE pain and ROM. Recommended activities: neuro facilitation/re-ed; ther ex; ther act; functional activities; bimanual coordination [ End ] Home Exercise Program Please refer to treatment section of note for specific details. - Plan Therapy Recommendations Continue with Current Program, Advance per Rehabilitation Protocol
--- NOTE | 2019-12-14 11:53 | OT.OP.TRT ---
Visit Care Team Role Provider Type KINJAL Cooper Attending Provider Advanced Electronic Science Teacher Primary Care Provider Referring Provider Specialty: Family Practice Address: [address] [place] [address], [facility] Email: [email or web address] Occupational Therapy Treatment Note OT Outpatient Treatment Note - Adult Start: 11/15/19 09:37 Freq: Status: Active Protocol: Document 12/05/19 08:35 AMS (Rec: 12/14/19 11:53 AMS [id number]) OT Outpatient Adult Treatment Note Session Time Visit Start Time 08:35 Visit Stop Time 09:25 Total Visit Minutes 50 Visit Information Plan of Care Dates 11/15/19-02/07/20 Insurance Information [facility] Medicare Advantage; KX at 20 visits Setting Treatment Setting Outpatient Care Visit Type Note Type Treatment Note General Information General Information Brittany is a 49 year-old right hand dominant female referred to outpatient OT by PCP, Amie Monique MD, secondary to L UE weakness, other symptoms and signs involving the musuloskeletal system, contracture of muscle of L upper arm. Patient reported that she suffered a stroke in 2014 after having surgery for brain aneurysm; Brittany stated that it occurred while she was residing in [place]. Brittany reportedly moved frequently since date of onset to present day. Brittany has prox L sh stabilization brace; she reports that she has to have brace or encounters pain half way through the day. She also has night splint that she says doesn't work/doesn't stay in her hand. She has several [employer] products to encourage muscle contraction of the UE (e-stim to facilitate elbow flex/ext); she has a mirror box; she receives dry needling 2 x per month. She is receiving outpatient PT. PMH: Significant for memory loss; neck pain; neuropathy; seizures; stroke; thyroid disorder; traumatic brain inj; vision problems. - Subjective Identification Type Name Identification Reconciled With Medical Record Observations I forgot to take my meds this morning for seizures and pain per Brittany. They recommended I use it daily for 20 minutes. I haven't been as good about doing it per Brittany. - Objective Objective Measurements Please refer to below for progress towards meeting established goals. Short Term Goals 1. 0-15 degrees active L elbow flexion. 2. 0-15 degrees active L elbow extension. 3. 0-45 degrees active L shoulder extension. [facility] Goals 1. Brittany will be modified independent with execution of upper extremity home exercise program (including UE ROM, positioning) with support of family and caregivers utilizing provided written and visual instructions from therapist. - Treatment 1 Descriptor HEP/POC. Caregiver was briefly present during outpatient OT session; recommended facilitation of elbow flex and elbow ext in supine w/ trunk and proximal UE supported on surface. Caregiver and Brittany denied questions. Exercises 7 Descriptor Supine ROM. Sh ext. Assist to facilitate. 1 x 10. Chest press. Assist to facilitate. 1 x 10. Sh flex. 1 x 10. Chest stretch. 6 Descriptor Sh ROM. Scapular pinches. 1 x 10. Sh ext. 1 x 10. 4 Descriptor Neurofacilitation. Functional reaching pattern. 1 x 10. Therapist facilitation. 2 Descriptor Elbow UE ROM. Elbow ext. 1 x 10. Elbow ext. TB #1. 2 x 10. Elbow flex. 1 x 10. Muscle tapping. - Assessment Assessment of Improvement Initiated supine exercises w/ and without cane. Discussed potential placement of e-stim pads distally to facilitate wrist and digit extension in future as ability to motor plan elbow flex/ext improves. Discussed proximal -> distal return. Discussed alt option to current sling (givMOHR). Provided some caregiver training w/ focus on active elbow flex/ext supine. Impaired posture; pec tightness L side; h/o tightness through chest per patient. Outpatient OT is recommended for education re: positioning and development of appropriate of UE HEP; it is also recommended to address UE pain and ROM. Recommended activities: neuro facilitation/re-ed; ther ex; ther act; functional activities; bimanual coordination [ End ] Home Exercise Program Please refer to treatment section of note for specific details. - Plan Therapy Recommendations Continue with Current Program, Advance per Rehabilitation Protocol
--- NOTE | 2019-12-21 16:46 | OT.OP.TRT ---
Visit Care Team Role Provider Type KINJAL Cooper Attending Provider Advanced Flight Steward Primary Care Provider Referring Provider Specialty: Family Practice Address: [address] [place] [address], [facility] Email: [email or web address] Occupational Therapy Treatment Note OT Outpatient Treatment Note - Adult Start: 11/15/19 09:37 Freq: Status: Active Protocol: Document 12/21/19 16:37 AMS (Rec: 12/21/19 16:45 AMS [id number]) OT Outpatient Adult Treatment Note Session Time Visit Start Time 10:30 Visit Stop Time 11:30 Total Visit Minutes 60 Visit Information Plan of Care Dates 11/15/19-02/07/20 Insurance Information [facility] Medicare Advantage; KX at 20 visits Setting Treatment Setting Outpatient Care Visit Type Note Type Treatment Note General Information General Information Brittany is a 49 year-old right hand dominant female referred to outpatient OT by PCP, Amie Monique MD, secondary to L UE weakness, other symptoms and signs involving the musuloskeletal system, contracture of muscle of L upper arm. Patient reported that she suffered a stroke in 2014 after having surgery for brain aneurysm; Brittany stated that it occurred while she was residing in [place]. Brittany reportedly moved frequently since date of onset to present day. Brittany has prox L sh stabilization brace; she reports that she has to have brace or encounters pain half way through the day. She also has night splint that she says doesn't work/doesn't stay in her hand. She has several Saebo products to encourage muscle contraction of the UE (e-stim to facilitate elbow flex/ext); she has a mirror box; she receives dry needling 2 x per month. She is receiving outpatient PT. PMH: Significant for memory loss; neck pain; neuropathy; seizures; stroke; thyroid disorder; traumatic brain inj; vision problems. - Subjective Identification Type Name Identification Reconciled With Medical Record Observations I will need my caregiver to come in so that you can show her per Brittany in re: exercises. - Objective Objective Measurements Please refer to below for progress towards meeting established goals. Short Term Goals 1. 0-15 degrees active L elbow flexion. 12/21/19= 25% met 2. 0-45 degrees active L shoulder extension. GOALS MET 0-15 degrees active L elbow extension. *MET 12/21/19; 0-125 degrees Residential Goals 1. Brittany will be modified independent with execution of upper extremity home exercise program (including UE ROM, positioning) with support of family and caregivers utilizing provided written and visual instructions from therapist. - Treatment 1 Descriptor HEP/POC. Recommended practicing active elbow extension/flexion. Provided contact information for individuals that oversee vision therapy. Exercises 8 Descriptor Macanese e-stim. Facilitation of wrist/digit extension. 10/ 10 cycle. 30 intensity. Skin intact pre- and post-treatment . Active participation by patient. x 8 minutes. 7 Descriptor Seated ROM/Cane exercises. Sh flex/ext. Assist to facilitate. 2 x 10. Circumduction. Assist to facilitate. 2 x 10. Sh hor abd/add. Assist to facilitate. 2 x 10. 6 Descriptor Sh ROM. Scapular pinches. 1 x 10. 5 Descriptor Tone management. 5-inch ball WB. Active elbow flex/ext. 1 x 10. 4 Descriptor Neurofacilitation. Tenodesis. Instruction of utilization for grasp and release. 3 Descriptor Sh PROM. Sh abd. Supine. 1 x 10. Sh ER. Supine. 1 x 10. 2 Descriptor Elbow UE ROM. Elbow ext. Seated. TB #3. 1x10 . TB #2. 1x10. Elbow flex. Seated. 2 x 10. Muscle tapping. - Assessment Assessment of Improvement Improving active elbow extension; met short term goal in this area. Continued need for muscle tapping to facilitate elbow flexion. Transitioned to seated at EOM exercises given that Brittany reported residing in small studio apartment and inability of caregiver to assist w/ exercises supine. Instructed in e-stim pad placement for facilitation of wrist and digit extension. Outpatient OT is recommended for education re: positioning and development of appropriate of UE HEP; it is also recommended to address UE pain and ROM. Recommended activities: neuro facilitation/re-ed; ther ex; ther act; functional activities; bimanual coordination [ End ] Home Exercise Program Please refer to treatment section of note for specific details. - Plan Therapy Recommendations Continue with Current Program, Advance per Rehabilitation Protocol Additional Therapy Recommendations Consult w/ PT Occupational Therapy Assessment OT Outpatient Range of Motion Start: 11/15/19 09:37 Freq: Status: Active Protocol: Document 12/21/19 16:37 AMS (Rec: 12/21/19 16:45 AMS [id number]) ROM - Shoulder Shoulder Right Active Shoulder ROM WFL Yes Forearm ROM Testing Position Sitting Left Shoulder ROM WFL No Forearm ROM Testing Position Sitting Shoulder Flex AROM (degrees) 0-10 Query Text: Shoulder Flex PROM (degrees) 0-80 Query Text: Shoulder Ext AROM (degrees) 0-25 Shoulder Ext PROM (degrees) 0-50 Shoulder Abd AROM (degrees) 0-0 Shoulder IR AROM (degrees) 0-10 Shoulder IR PROM (degrees) WFL Shoulder ER AROM (degrees) 0-0 Shoulder ER PROM (degrees) 0-30 ROM - Elbow/Forearm Elbow/Forearm Measured in Degrees Right Active Elbow/Forearm ROM WFL Yes Left Elbow/Forearm ROM WFL No Elbow Flex AROM (degrees) 0-5 Elbow Flex PROM (degrees) 0-130 Elbow Ext AROM (degrees) 0-125 Elbow Ext PROM (degrees) 0-130 Forearm Pron AROM (degrees) 0-0 Forearm Pron PROM (degrees) WFL Forearm Sup AROM (degrees) 0-0 Forearm Sup PROM (degrees) WFL Comments New measurements for active elbow flexion and extension. ROM - Wrist Wrist Range of Motion Measured in Degrees Left ROM Testing Position Sitting Wrist Flex AROM (degrees) 0-0 Wrist Flex PROM (degrees) WFL Wrist Ext AROM Fingers Open (degrees) 0-0 Wrist Ext PROM Fingers Open (degrees) 0-0 Wrist Ext AROM Fingers Flexed (degrees) 0-0 Wrist Ext PROM Fingers Flexed (degrees) WFL Ulnar Deviation AROM (degrees) 0-0 Ulnar Deviation PROM (degrees) WFL Radial Deviation AROM (degrees) 0-0 Radial Deviation PROM (degrees) WFL
--- NOTE | 2019-12-28 12:25 | OT.OP.TRT ---
Visit Care Team Role Provider Type KINJAL Cooper Attending Provider Advanced Bicycle Taxi Driver Primary Care Provider Referring Provider Specialty: Family Practice Address: [address] [place] [address], [facility] Email: [email or web address] Occupational Therapy Treatment Note OT Outpatient Treatment Note - Adult Start: 11/15/19 09:37 Freq: Status: Active Protocol: Document 12/28/19 12:10 AMS (Rec: 12/28/19 12:24 AMS [id number]) OT Outpatient Adult Treatment Note Session Time Visit Start Time 10:40 Visit Stop Time 11:40 Total Visit Minutes 60 Visit Information Plan of Care Dates 11/15/19-02/07/20 Insurance Information [facility] Medicare Advantage; KX at 20 visits Setting Treatment Setting Outpatient Care Visit Type Note Type Treatment Note General Information General Information Brittany is a 49 year-old right hand dominant female referred to outpatient OT by PCP, Amie Monique MD, secondary to L UE weakness, other symptoms and signs involving the musuloskeletal system, contracture of muscle of L upper arm. Patient reported that she suffered a stroke in 2014 after having surgery for brain aneurysm; Brittany stated that it occurred while she was residing in [place]. Brittany reportedly moved frequently since date of onset to present day. Brittany has prox L sh stabilization brace; she reports that she has to have brace or encounters pain half way through the day. She also has night splint that she says doesn't work/doesn't stay in her hand. She has several Saebo products to encourage muscle contraction of the UE (e-stim to facilitate elbow flex/ext); she has a mirror box; she receives dry needling 2 x per month. She is receiving outpatient PT. PMH: Significant for memory loss; neck pain; neuropathy; seizures; stroke; thyroid disorder; traumatic brain inj; vision problems. - Subjective Identification Type Name Identification Reconciled With Medical Record Observations My doctor delivered a stationary bike to my home because I had mentioned that I wanted to be more active per Brittany. - Objective Objective Measurements Please refer to below for progress towards meeting established goals. Short Term Goals 1. 0-15 degrees active L elbow flexion. 12/21/19= 25% met 2. 0-45 degrees active L shoulder extension. GOALS MET 0-15 degrees active L elbow extension. *MET 12/21/19; 0-125 degrees Retirement Goals 1. Brittany will be modified independent with execution of upper extremity home exercise program (including UE ROM, positioning) with support of family and caregivers utilizing provided written and visual instructions from therapist. - Treatment 1 Descriptor HEP/POC. Introduced unilateral UE TT exercises utilizing towel; written and visual instructions were provided. Original was placed in chart. Reviewed weight bearing strategies; problem solved and identified L knee would likely be more beneficial with execution of weight bearing exercise/tone management exercise. Discussed positioning of arm and use of dycem to support success w/ mirror therapy box; also discussed potential use of distal e-stim program w/ mirror box as an alternative therapeutic approach. Discussed importance of establishing a routine w/ exercises to support consistency. Brittany denied questions . Exercises 9 Descriptor TT unilateral exercises. 8 Descriptor Swedish e-stim. Facilitation of wrist/digit extension. 10/ 10 cycle. 30 intensity. Skin intact pre- and post-treatment . Active participation by patient. x 8 minutes. 7 Descriptor Seated ROM/Cane exercises. Wrist extension. Assist to facilitate. 2 x 10 Sh flex/ext. Assist to facilitate. 2 x 10. Circumduction. Assist to facilitate. 2 x 10. Sh hor abd/add. Assist to facilitate. 2 x 10. 6 Descriptor Sh ROM. Scapular pinches. 1 x 10. 4 Descriptor Neurofacilitation. Tenodesis. Instruction of utilization for grasp and release. 3 Descriptor Sh PROM. Sh abd. Supine. 1 x 10. Sh ER. Supine. 1 x 10. 2 Descriptor Elbow UE ROM. Elbow ext. Seated. TB #3. 1x10 . TB #2. 1x10. Elbow flex. Seated. 2 x 10. Muscle tapping. - Assessment Assessment of Improvement Focused on establishment of UE home program that would support carry-over of recommended exercises/ activities. Explored TT unilateral exercises to decrease assistance needed from caregiver. Education was completed on this date; recommended returning to PCP if additional questions arise re: exploration of alternative rehabilitation options. Outpatient OT is recommended for education re: positioning and development of appropriate of UE HEP; it is also recommended to address UE pain and ROM. Recommended activities: neuro facilitation/re-ed; ther ex; ther act; functional activities; bimanual coordination [ End ] Home Exercise Program Please refer to treatment section of note for specific details. - Plan Therapy Recommendations Continue with Current Program, Advance per Rehabilitation Protocol Additional Therapy Recommendations Consult w/ PT
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
--- NOTE | 2020-01-30 15:30 | OT.OP.TRT ---
Visit Care Team Role Provider Type KINJAL Cooper Attending Provider Advanced Real Estate Recruiter Primary Care Provider Referring Provider Specialty: Family Practice Address: [address] [place] [address], [facility] Email: [email or web address] Occupational Therapy Treatment Note OT Outpatient Treatment Note - Adult Start: 11/15/19 09:37 Freq: Status: Active Protocol: Document 01/30/20 15:30 AMS (Rec: 01/31/20 12:24 AMS [id number]) OT Outpatient Adult Treatment Note Session Time Visit Start Time 10:30 Visit Stop Time 11:18 Total Visit Minutes 48 Visit Information Plan of Care Dates 11/15/19-02/07/20 Insurance Information [facility] Medicare Advantage; KX at 20 visits Setting Treatment Setting Outpatient Care Visit Type Note Type Treatment Note General Information General Information Brittany is a 50 year-old right hand dominant female referred to outpatient OT by PCP, Amie Monique MD, secondary to L UE weakness, other symptoms and signs involving the musuloskeletal system, contracture of muscle of L upper arm. Patient reported that she suffered a stroke in 2014 after having surgery for brain aneurysm; Brittany stated that it occurred while she was residing in [place]. Brittany reportedly moved frequently since date of onset to present day. Brittany has prox L sh stabilization brace; she reports that she has to have brace or encounters pain half way through the day. She also has night splint that she says doesn't work/doesn't stay in her hand. She has several [employer] products to encourage muscle contraction of the UE (e-stim to facilitate elbow flex/ext); she has a mirror box; she receives dry needling 2 x per month. She is receiving outpatient PT. PMH: Significant for memory loss; neck pain; neuropathy; seizures; stroke; thyroid disorder; traumatic brain inj; vision problems. - Subjective Identification Type Name Identification Reconciled With Medical Record Observations Brittany was accompanied by her primary caregiver on this treatment date; Brittany and her caregiver are currently working on establishing a schedule. - Objective Objective Measurements Please refer to below for progress towards meeting established goals. Short Term Goals 1. 0-15 degrees active L elbow flexion. 12/21/19= 25% met 2. 0-45 degrees active L shoulder extension. Correction Warden Goals 1. Brittany will be modified independent with execution of upper extremity home exercise program (including UE ROM, positioning) with support of family and caregivers utilizing provided written and visual instructions from therapist. - Treatment 1 Descriptor HEP/POC. Brittany's primary caregiver accompanied her to OT treatment session; therapist reviewed current home recommendations, including developing a schedule/routine w/ HEP execution to support carry- over and to determine efficacy of current activities/ exercises. Therapist reviewed cane exercises (possible difficulties encountered w/ building of cane width), TT exercises, elbow ext strengthening, muscle tapping facilitation for elbow flex, tone management w/ WB, positioning of hand/fingers out of flexor pattern ( utilizing spherical objects ranging in sizes). Discussed importance of posture/scapular pinches. Problem solved given tendency into flexor pattern of distal UE and WB through heel of palm only. Recommended cross body modification to backpack to support success and Brittany's ability to manage tool without assistance . Brittany and primary caregiver denied questions. Exercises 9 Descriptor TT unilateral exercises. 7 Descriptor Seated ROM/Cane exercises. Wrist ext. Assist to facilitate. 2 x 10 Sh flex/ext. Assist to facilitate. 2 x 10. Circumduction. Assist to facilitate. 2 x 10. Sh hor abd/add. Assist to facilitate. 2 x 10. 6 Descriptor Sh ROM. Scapular pinches. 1 x 10. 5 Descriptor Tone management. EOM. 2 x 10. WB. Use of increasing size of object in palm of hand given decreased alejandro for initial WB through palm (tendency to WB through heel of palm only). 4 Descriptor Neurofacilitation. [place]. Instruction of utilization for grasp and release. 2 Descriptor Elbow UE ROM. Elbow ext. Seated. TB #3. 2x10 . Elbow flex. Seated. 2 x 10. Muscle tapping. 1 Descriptor UEB. x 5 min 30 sec seated. R hand enterprise application architect assist. - Assessment Assessment of Improvement Given that Brittany's primary caregiver accompanied her to today's treatment session focus of treatment was on reviewing current home recommendations and encouraging consistency w/ carry-over. Thus, did not obtain measurements for sling. Will also need to request RX from PCP for GivMohr Sling. Decreased consistency w/ carry -over of HEP. Brittany inquired about vision therapy, driving rehab, hyperbaric chamber, use of backpack. All questions were answered and therapist deferred to primary PCP re: efficacy of hyperbaric chamber use given her medical history . Outpatient OT is recommended for education re: positioning and development of appropriate of UE HEP; it is also recommended to address UE pain and ROM. Recommended activities: neuro facilitation/re-ed; ther ex; ther act; functional activities; bimanual coordination Home Exercise Program Please refer to treatment section of note for specific details. - Plan Therapy Recommendations Continue with Current Program, Advance per Rehabilitation Protocol Additional Therapy Recommendations Consult w/ other therapies
--- NOTE | 2020-02-06 15:30 | OT.OP.TRT ---
Visit Care Team Role Provider Type KINJAL Cooper Attending Provider Advanced [employer] Machinist 2Nd Shift Primary Care Provider Referring Provider Specialty: Family Practice Address: [address] [place] [address], [facility] Email: [email or web address] Occupational Therapy Treatment Note OT Outpatient Treatment Note - Adult Start: 11/15/19 09:37 Freq: Status: Active Protocol: Document 02/06/20 15:30 AMS (Rec: 02/08/20 16:46 AMS [id number]) OT Outpatient Adult Treatment Note Session Time Visit Start Time 10:30 Visit Stop Time 11:20 Total Visit Minutes 50 Visit Information Plan of Care Dates 02/06/20-04/30/20 Insurance Information [facility] Medicare Advantage; KX at 20 visits Setting Treatment Setting Outpatient Care Visit Type Note Type Treatment Note General Information General Information Brittany is a 50 year-old right hand dominant female referred to outpatient OT by PCP, Amie Monique MD, secondary to L UE weakness, other symptoms and signs involving the musuloskeletal system, contracture of muscle of L upper arm. Patient reported that she suffered a stroke in 2014 after having surgery for brain aneurysm; Brittany stated that it occurred while she was residing in [place]. Brittany reportedly moved frequently since date of onset to present day. Brittany has prox L sh stabilization brace; she reports that she has to have brace or encounters pain half way through the day. She also has night splint that she says doesn't work/doesn't stay in her hand. She has several [employer] products to encourage muscle contraction of the UE (e-stim to facilitate elbow flex/ext); she has a mirror box; she receives dry needling 2 x per month. She is receiving outpatient PT. PMH: Significant for memory loss; neck pain; neuropathy; seizures; stroke; thyroid disorder; traumatic brain inj; vision problems. - Subjective Identification Type Name Identification Reconciled With Medical Record Observations What about that sling? per Brittany. - Objective Objective Measurements Please refer to below for progress towards meeting established goals. Short Term Goals 1. 0-15 degrees active L elbow flexion. 12/21/19= 25% met 2. 0-45 degrees active L shoulder extension. Senior Care Goals 1. Brittany will be modified independent with execution of upper extremity home exercise program (including UE ROM, positioning) with support of family and caregivers utilizing provided written and visual instructions from therapist. - Treatment 1 Descriptor HEP/POC. Obtained height and weight from patient to support identification of correct sizing for sling. Faxed PCP to obtain prescription for alternate sling ([employer]); will need to follow-up to determine if MD in agreement to sling or prefers an alternate sling. Contacted [employer] to obtain further guidance relative to appropriate sizing. Exercises 9 Descriptor TT unilateral exercises. 8 Descriptor UEB. x 3 min 30 sec. 7 Descriptor Seated ROM/Cane exercises. Wrist ext. Assist to facilitate. 2 x 10 Sh flex/ext. Assist to facilitate. 2 x 10. Circumduction. Assist to facilitate. 2 x 10. Sh hor abd/add. Assist to facilitate. 2 x 10. 6 Descriptor Sh ROM. Scapular pinches. 1 x 10. 5 Descriptor Tone management. EOM. 2 x 10. WB. Use of increasing size of object in palm of hand given decreased alejandro for initial WB through palm (tendency to WB through heel of palm only). 4 Descriptor Neurofacilitation. [place]. Instruction of utilization for grasp and release. 2 Descriptor Elbow UE ROM. Elbow ext. Seated. TB #3. 2x10 . Elbow flex. Seated. 2 x 10. Muscle tapping. - Assessment Assessment of Improvement Obtained height and weight from patient. Faxed PCP requesting Rx for sling. Requested guidance from company for assist w/ identification of sling based on height and weight indicating different recommendations for sling size . Use of glove to help facilitate UEB success; discussed importance of consistency w/ execution of UE exercises to identify beneficial versus non- beneficial exercises/ activities. Recommend increasing length of time using UEB as tolerated at time of next treatment session. Outpatient OT is recommended for education re: positioning and development of appropriate of UE HEP; it is also recommended to address UE pain and ROM. Recommended activities: neuro facilitation/re-ed; ther ex; ther act; functional activities; bimanual coordination Home Exercise Program Please refer to treatment section of note for specific details. - Plan Therapy Recommendations Continue with Current Program, Advance per Rehabilitation Protocol Additional Therapy Recommendations Consult w/ other therapies
--- NOTE | 2020-02-11 11:51 | OT.OP.TRT ---
Visit Care Team Role Provider Type KINJAL Cooper Attending Provider Advanced Editor [employer] Co Founder Primary Care Provider Referring Provider Specialty: Family Practice Address: [address] [place] [address], [facility] Email: [email or web address] Occupational Therapy Treatment Note OT Outpatient Treatment Note - Adult Start: 11/15/19 09:37 Freq: Status: Active Protocol: Document 02/11/20 11:26 AMS (Rec: 02/11/20 11:51 AMS [id number]) OT Outpatient Adult Treatment Note Session Time Visit Start Time 10:30 Visit Stop Time 11:20 Total Visit Minutes 50 Visit Information Plan of Care Dates 02/06/20-04/30/20 Insurance Information [facility] Medicare Advantage; KX at 20 visits Setting Treatment Setting Outpatient Care Visit Type Note Type Treatment Note General Information General Information Brittany is a 50 year-old right hand dominant female referred to outpatient OT by PCP, Amie Monique MD, secondary to L UE weakness, other symptoms and signs involving the musuloskeletal system, contracture of muscle of L upper arm. Patient reported that she suffered a stroke in 2014 after having surgery for brain aneurysm; Brittany stated that it occurred while she was residing in [place]. Brittany reportedly moved frequently since date of onset to present day. Brittany has prox L sh stabilization brace; she reports that she has to have brace or encounters pain half way through the day. She also has night splint that she says doesn't work/doesn't stay in her hand. She has several Saebo products to encourage muscle contraction of the UE (e-stim to facilitate elbow flex/ext); she has a mirror box; she receives dry needling 2 x per month. She is receiving outpatient PT. PMH: Significant for memory loss; neck pain; neuropathy; seizures; stroke; thyroid disorder; traumatic brain inj; vision problems. - Subjective Identification Type Name Identification Reconciled With Medical Record Observations I have an appointment with my doctor tomorrow per Brittany. I was practicing this one this weekend per Brittany in re: active extension of L elbow w/ weight bearing at EOM . We still haven't found a ball that works. We are still working on a schedule. I have been using the UEB at home. - Objective Objective Measurements Please refer to below for progress towards meeting established goals. Short Term Goals 1. 0-15 degrees active L elbow flexion. 12/21/19= 25% met 2. 0-45 degrees active L shoulder extension. Longterm Goals 1. Brittany will be modified independent with execution of upper extremity home exercise program (including UE ROM, positioning) with support of family and caregivers utilizing provided written and visual instructions from therapist. 02/11/20 =25% met - Treatment 2 Descriptor Luxembourger e-stim. Application of pads to dorsum of L forearm to facilitate wrist and digit extension. 10/10 cycle used. Intensity of modality varied based on response to skilled observations and patient feedback (14 to 22). Skin intact pre- and post- treatment. Patient positively responded to modality and results. Patient unable to maintain grasp of the 1# DB w/ modality program. 1 Descriptor HEP/POC. Informed that therapist faxed PCP re: Rx for GivMohr sling and awaiting for feedback from PCP. Informed that therapist contacted [employer] for assistance w/ identifying appropriate size for GivMohr. Recommended working on isolated L scapular retraction versus backwards sh shrug based on skilled observations in treatment session. Discussed use of night splint and/or splint used during the day for approximately 2 hours to address tightness of digits /wrist into flexor pattern. Brittany indicated that she is unaware of current location of the splint previously used for this purpose. Exercises 9 Descriptor TT unilateral exercises. 8 Descriptor UEB. x 3 min 30 sec. 7 Descriptor Seated ROM/Cane exercises. Sh ext. Phys assist to maintain grasp of cane. Tendency towards wrist flexion . 1x10. Wrist ext. Assist to facilitate. 2 x 10 Sh flex/ext. Assist to facilitate. 2 x 10. Circumduction. Assist to facilitate. 2 x 10. Sh hor abd/add. Assist to facilitate. 2 x 10. 6 Descriptor Sh ROM. Scapular pinches. 1 x 10. Passive ER. 1 x 10. Passive sh ext. 5 Descriptor Tone management. Hand positioned at EOM w/ active weight bearing. 2 x 10. Forearm WB of L UE onto bolster. 1 x 10. Assist w/ positioning and cueing to support weight bearing. 4 Descriptor Neurofacilitation. Retraining of functional reach pattern of L UE. Retraining to support posture and address tightness. Weight bearing to address increased tone of the L UE. Scapular retraining; application of resistance to medial border of scapula. 1 x 10. 2 Descriptor Elbow UE ROM. Elbow ext. Seated. TB #4. 2x10 . Elbow flex. Seated. 2 x 10. Muscle tapping. - Assessment Assessment of Improvement Patient had increased ability to actively extend elbow ( multiple repetitions noted w/ TB). She demonstrated increased alejandro for active WB at EOM w/ hand positioned at edge; thus, therapist introduced forearm WB w/ use of bolster. Based on feedback from patient/what exercises were being completed in the home, therapist initiated use of e-stim of wrist and digit extensors. PT assisted w/ positioning of TB to LE to support carry-over their goals . Improved ability to actively retract L scapula w/ post- scapular retraining exercise. Improved functional reach w/ NDT movement pattern; thus, started to include scapular retraction and sh ext w/ functional reach motor pattern . Difficulty executing backwards sh shrug; isolated movements led to greater success. Outpatient OT is recommended for education re: positioning and development of appropriate of UE HEP; it is also recommended to address UE pain and ROM. Recommended activities: neuro facilitation/re-ed; ther ex; ther act; functional activities; bimanual coordination Home Exercise Program Please refer to treatment section of note for specific details. - Plan Therapy Recommendations Continue with Current Program, Advance per Rehabilitation Protocol Additional Therapy Recommendations Consult w/ other therapies
--- NOTE | 2020-03-03 15:30 | OT.OP.TRT ---
Visit Care Team Role Provider Type KINJAL Cooper Attending Provider Advanced Mail [employer]rier Primary Care Provider Referring Provider Specialty: Family Practice Address: [address] [place] [address], [facility] Email: [email or web address] Occupational Therapy Treatment Note OT Outpatient Treatment Note - Adult Start: 11/15/19 09:37 Freq: Status: Active Protocol: Document 03/03/20 15:30 AMS (Rec: 03/05/20 12:29 AMS [id number]) OT Outpatient Adult Treatment Note Session Time Visit Start Time 09:35 Visit Stop Time 10:30 Total Visit Minutes 55 Visit Information Plan of Care Dates 02/06/20-04/30/[address] [facility] Medicare Advantage; KX at 20 visits Setting Treatment Setting Outpatient Care Visit Type Note Type Treatment Note General Information General Information Brittany is a 50 year-old right hand dominant female referred to outpatient OT by PCP, Amie Monique MD, secondary to L UE weakness, other symptoms and signs involving the musuloskeletal system, contracture of muscle of L upper arm. Patient reported that she suffered a stroke in 2014 after having surgery for brain aneurysm; Brittany stated that it occurred while she was residing in [place]. Brittany reportedly moved frequently since date of onset to present day. Brittany has prox L sh stabilization brace; she reports that she has to have brace or encounters pain half way through the day. She also has night splint that she says doesn't work/doesn't stay in her hand. She has several [employer] products to encourage muscle contraction of the UE (e-stim to facilitate elbow flex/ext); she has a mirror box; she receives dry needling 2 x per month. She is receiving outpatient PT. PMH: Significant for memory loss; neck pain; neuropathy; seizures; stroke; thyroid disorder; traumatic brain inj; vision problems. - Subjective Identification Type Name Identification Reconciled With Medical Record Observations I was wondering if we could go over the cane exercises? per Brittany. - Objective Objective Measurements Please refer to below for progress towards meeting established goals. Short Term Goals 1. 0-15 degrees active L elbow flexion. 12/21/19= 25% met 2. 0-45 degrees active L shoulder extension. [facility] Goals 1. Brittany will be modified independent with execution of upper extremity home exercise program (including UE ROM, positioning) with support of family and caregivers utilizing provided written and visual instructions from therapist. 03/05/20 =25% met; reviewed HEP on this treatment date - Treatment 2 Descriptor Belgian e-stim. Application of pads to dorsum of L forearm to facilitate wrist and digit extension. 10/10 cycle used. Intensity of modality varied based on response to skilled observations and patient feedback (14 to 22). Skin intact pre- and post- treatment. Patient positively responded to modality and results. Patient unable to maintain grasp of the 1# DB w/ modality program. 1 Descriptor HEP/POC. Focus of treatment session on caregiver education . Exercises 7 Descriptor Seated ROM/Cane exercises. Sh ext. Phys assist to maintain grasp of cane. Tendency towards wrist flexion . 1x10. Wrist ext. Assist to facilitate. 2 x 10 Sh flex/ext. Assist to facilitate. 2 x 10. Circumduction. Assist to facilitate. 2 x 10. Sh hor abd/add. Assist to facilitate. 2 x 10. 6 Descriptor Sh ROM. Scapular pinches. 1 x 10. Passive ER. 1 x 10. Passive sh ext. 5 Descriptor Tone management. Hand positioned at EOM w/ active weight bearing. 2 x 10. Forearm WB of L UE onto bolster. 1 x 10. Assist w/ positioning and cueing to support weight bearing. 4 Descriptor Neurofacilitation. Retraining of functional reach pattern of L UE. Retraining to support posture and address tightness. Weight bearing to address increased tone of the L UE. Scapular retraining; application of resistance to medial border of scapula. 1 x 10. 2 Descriptor Elbow UE ROM. Elbow ext. Seated. TB #4. 2x10 . Elbow flex. Seated. 2 x 10. Muscle tapping. - Assessment Assessment of Improvement Patient was accompanied by Lena (sp?), a caregiver, to outpatient OT treatment session. Reviewed home exercise program recommendations; also discussed active incorporation of the L hand with functional activities (active stabilization of items at TT). Discussed use of slanted surface to support posture and discourage forward posturing. Outpatient OT is recommended for education re: positioning and development of appropriate of UE HEP; it is also recommended to address UE pain and ROM. Recommended activities: neuro facilitation/re-ed; ther ex; ther act; functional activities; bimanual coordination Home Exercise Program Please refer to treatment section of note for specific details. - Plan Therapy Recommendations Continue with Current Program, Advance per Rehabilitation Protocol Additional Therapy Recommendations Consult w/ other therapies
--- NOTE | 2020-03-11 15:30 | OT.OP.TRT ---
Visit Care Team Role Provider Type KINJAL Cooper Attending Provider Advanced Ground Crew Supervisor Primary Care Provider Referring Provider Specialty: Family Practice Address: [address] [place] [address], [facility] Email: [email or web address] Occupational Therapy Treatment Note OT Outpatient Treatment Note - Adult Start: 11/15/19 09:37 Freq: Status: Active Protocol: Document 03/11/20 15:30 AMS (Rec: 03/16/20 12:09 AMS [id number]) OT Outpatient Adult Treatment Note Session Time Visit Start Time 09:30 Visit Stop Time 10:20 Total Visit Minutes 50 Visit Information Plan of Care Dates 02/06/20-04/30/20 Insurance Information [facility] Medicare Advantage; KX at 20 visits Setting Treatment Setting Outpatient Care Visit Type Note Type Treatment Note General Information General Information Brittany is a 50 year-old right hand dominant female referred to outpatient OT by PCP, Amie Monique MD, secondary to L UE weakness, other symptoms and signs involving the musuloskeletal system, contracture of muscle of L upper arm. Patient reported that she suffered a stroke in 2014 after having surgery for brain aneurysm; Brittany stated that it occurred while she was residing in [place]. Brittany reportedly moved frequently since date of onset to present day. Brittany has prox L sh stabilization brace; she reports that she has to have brace or encounters pain half way through the day. She also has night splint that she says doesn't work/doesn't stay in her hand. She has several [employer] products to encourage muscle contraction of the UE (e-stim to facilitate elbow flex/ext); she has a mirror box; she receives dry needling 2 x per month. She is receiving outpatient PT. PMH: Significant for memory loss; neck pain; neuropathy; seizures; stroke; thyroid disorder; traumatic brain inj; vision problems. - Subjective Identification Type Name Identification Reconciled With Medical Record Observations Yes, I want to the e-stim again. - Objective Objective Measurements Please refer to below for progress towards meeting established goals. Short Term Goals 1. 0-90 degrees active L elbow flexion. 03/11/20= GOAL UPGRADED 2. 0-45 degrees active L shoulder extension. GOALS MET 0-15 degrees active L elbow flexion. 03/11/20 = 0-50 Electrical Appliance Preparer Goals 1. Brittany will be modified independent with execution of upper extremity home exercise program (including UE ROM, positioning) with support of family and caregivers utilizing provided written and visual instructions from therapist. 03/05/20 =25% met; reviewed HEP on this treatment date - Treatment 1 Descriptor HEP/POC. Focus of treatment session on caregiver education . Exercises 7 Descriptor Seated ROM/Cane exercises. Sh ext. Phys assist to maintain grasp of cane. Tendency towards wrist flexion . 1x10. Wrist ext. Assist to facilitate. 2 x 10 Sh flex/ext. Assist to facilitate. 2 x 10. Circumduction. Assist to facilitate. 2 x 10. Sh hor abd/add. Assist to facilitate. 2 x 10. 6 Descriptor Sh ROM. Scapular pinches. 1 x 10. Passive ER. 1 x 10. Passive sh ext. 5 Descriptor Tone management. Forearm WB of L UE onto bolster. 1 x 10. Assist w/ positioning and cueing to support weight bearing. Initiated WB at TT modified. 4 Descriptor Neurofacilitation. Retraining of functional reach pattern of L UE. Retraining to support posture and address tightness. Weight bearing to address increased tone of the L UE. Scapular retraining; application of resistance to medial border of scapula. 1 x 10. 3 Descriptor Slovak e-stim. 10 cycle. 38 intensity. Facilitation of wrist/digit extension. L forearm placement of pads. Skin intact pre- and post- treatment. Positive response to treatment. 2 Descriptor Elbow UE ROM. Elbow ext. Seated. TB #4. 2x10 . Elbow flex. Seated. 2 x 10. Muscle tapping. - Assessment Assessment of Improvement Patient was accompanied by Eusebia (sp?) to treatment session. Improving AROM of L UE; see ROM section of note. Progressing exercises/ activities as tolerated by patient. Introduced TT weight bearing/modified. Outpatient OT is recommended for education re: positioning and development of appropriate of UE HEP; it is also recommended to address UE pain and ROM. Recommended activities: neuro facilitation/re-ed; ther ex; ther act; functional activities; bimanual coordination Home Exercise Program Please refer to treatment section of note for specific details. - Plan Therapy Recommendations Continue with Current Program, Advance per Rehabilitation Protocol Additional Therapy Recommendations Consult w/ other therapies
--- NOTE | 2020-03-21 14:33 | OT.OP.TRT ---
Visit Care Team Role Provider Type KINJAL Cooper Attending Provider Advanced Film Cutter Primary Care Provider Referring Provider Specialty: Family Practice Address: [address] [place] [address], [facility] Email: [email or web address] Occupational Therapy Treatment Note OT Outpatient Treatment Note - Adult Start: 11/15/19 09:37 Freq: Status: Active Protocol: Document 03/21/20 12:11 AMS (Rec: 03/21/20 13:32 AMS [id number]) OT Outpatient Adult Treatment Note Session Time Visit Start Time 09:40 Visit Stop Time 10:20 Total Visit Minutes 40 Visit Information Plan of Care Dates 02/06/20-04/30/20 Insurance Information [facility] Medicare Advantage; KX at 20 visits Setting Treatment Setting Outpatient Care Visit Type Note Type Treatment Note General Information General Information Brittany is a 50 year-old right hand dominant female referred to outpatient OT by PCP, Amie Monique MD, secondary to L UE weakness, other symptoms and signs involving the musuloskeletal system, contracture of muscle of L upper arm. Patient reported that she suffered a stroke in 2014 after having surgery for brain aneurysm; Brittany stated that it occurred while she was residing in [place]. Brittany reportedly moved frequently since date of onset to present day. Brittany has prox L sh stabilization brace; she reports that she has to have brace or encounters pain half way through the day. She also has night splint that she says doesn't work/doesn't stay in her hand. She has several [employer] products to encourage muscle contraction of the UE (e-stim to facilitate elbow flex/ext); she has a mirror box; she receives dry needling 2 x per month. She is receiving outpatient PT. PMH: Significant for memory loss; neck pain; neuropathy; seizures; stroke; thyroid disorder; traumatic brain inj; vision problems. - Subjective Identification Type Name Identification Reconciled With Medical Record Observations Brittany arrived a little bit late to her appointment. I don't think I need the other brace anymore. Do they have something like this? per Brittany in re: home e-stim unit. - Objective Objective Measurements Please refer to below for progress towards meeting established goals. Short Term Goals 1. 0-90 degrees active L elbow flexion. 03/11/20= GOAL UPGRADED 2. 0-45 degrees active L shoulder extension. GOALS MET 0-15 degrees active L elbow flexion. 03/11/20 = 0-50 Safe Deposit Box Rental Clerk Goals 1. Brittany will be modified independent with execution of upper extremity home exercise program (including UE ROM, positioning) with support of family and caregivers utilizing provided written and visual instructions from therapist. 03/21/20 =25% met - Treatment 1 Descriptor HEP/POC. Brittany was seen 1:1; therapist reviewed request from PCP for Rx for GivMohr sling w/ patient. Patient denied continued need for GivMohr. Exercises 8 Descriptor UEB. x 3 min 30 sec. 7 Descriptor Seated ROM/Cane exercises. Sh ext. Phys assist to maintain grasp of cane. Tendency towards wrist flexion . 1x10. Wrist ext. Assist to facilitate. 2 x 10 Sh flex/ext. Assist to facilitate. 2 x 10. Circumduction. Assist to facilitate. 2 x 10. Sh hor abd/add. Assist to facilitate. 2 x 10. 6 Descriptor Sh ROM. Scapular pinches. 1 x 10. Passive ER. 1 x 10. Passive sh ext. 1 x 10. Passive sh abd. Passive hor abd w/ ER. 1 x 10. 5 Descriptor Tone management. Forearm WB of L UE onto bolster. 1x10. Assist w/ positioning and cueing to support weight bearing. Bolster. WB at TT modified w/ towel. 1x10. WB at TT at edge of table. 1x10. 4 Descriptor Neurofacilitation. Retraining of functional reach pattern of L UE. Scapular retraining. 1 x 10. 3 Descriptor [place] e-stim. 10 cycle. 32 --> 23 intensity. Facilitation of wrist/digit extension. L forearm placement of pads. Skin intact pre- and post-treatment. Positive response to treatment. 2 Descriptor Elbow UE ROM. Elbow ext. Seated. TB #4. 2x10 . Elbow flex. Seated. 2 x 10. Muscle tapping. - Assessment Assessment of Improvement Advancing weight bearing exercises as tolerated; increasing tolerance for weight shifting at TT this date. Advancing neuro re- education exercises/activities as tolerated. Decreased AROM of L sh, elbow, wrist and hand . Decreased interest in GivMohr sling as verbalized by patient on this treatment date. Continued outpatient OT is recommended for development of appropriate of UE HEP, addressing UE pain, UE ROM, education, and neuro re- education. Recommended activities: neuro facilitation/re-ed; ther ex; ther act; functional activities; bimanual coordination Home Exercise Program Please refer to treatment section of note for specific details. - Plan Therapy Recommendations Continue with Current Program, Advance per Rehabilitation Protocol Additional Therapy Recommendations Consult w/ other therapies
--- NOTE | 2020-03-28 12:25 | OT.OP.TRT ---
Visit Care Team Role Provider Type KINJAL Cooper Attending Provider Advanced Gas Examiner Primary Care Provider Referring Provider Specialty: Family Practice Address: [address] [place] [address], [facility] Email: [email or web address] Occupational Therapy Treatment Note OT Outpatient Treatment Note - Adult Start: 11/15/19 09:37 Freq: Status: Active Protocol: Document 03/28/20 11:50 AMS (Rec: 03/28/20 12:17 AMS [id number]) OT Outpatient Adult Treatment Note Session Time Visit Start Time 09:40 Visit Stop Time 10:30 Total Visit Minutes 50 Visit Information Plan of Care Dates 02/06/20-04/30/20 Insurance Information [facility] Medicare Advantage; KX at 20 visits Setting Treatment Setting Outpatient Care Visit Type Note Type Treatment Note General Information General Information Brittany is a 50 year-old right hand dominant female referred to outpatient OT by PCP, Amie Monique MD, secondary to L UE weakness, other symptoms and signs involving the musuloskeletal system, contracture of muscle of L upper arm. Patient reported that she suffered a stroke in 2014 after having surgery for brain aneurysm; Brittany stated that it occurred while she was residing in [place]. Brittany reportedly moved frequently since date of onset to present day. Brittany has prox L sh stabilization brace; she reports that she has to have brace or encounters pain half way through the day. She also has night splint that she says doesn't work/doesn't stay in her hand. She has several Saebo products to encourage muscle contraction of the UE (e-stim to facilitate elbow flex/ext); she has a mirror box; she receives dry needling 2 x per month. She is receiving outpatient PT. PMH: Significant for memory loss; neck pain; neuropathy; seizures; stroke; thyroid disorder; traumatic brain inj; vision problems. - Subjective Identification Type Name Identification Reconciled With Medical Record Observations Brittany arrived 10 minutes late to her appointment. Brittany indicated that her doctor was 'going to be sending back the appropriate paperwork for the sling'; Brittany inquired about insurance covering home e-stim unit. She reported that one of her saebo home units was ' no longer working' and that she is 'frustrated that it isn 't strong enough'. Brittany stated that 'she has not been doing her exercises'. - Objective Objective Measurements Please refer to below for progress towards meeting established goals. Short Term Goals 1. 0-90 degrees active L elbow flexion. 03/11/20= GOAL UPGRADED 2. 0-45 degrees active L shoulder extension. GOALS MET 0-15 degrees active L elbow flexion. 03/11/20 = 0-50 Skilled Nursing Goals 1. Brittany will be modified independent with execution of upper extremity home exercise program (including UE ROM, positioning) with support of family and caregivers utilizing provided written and visual instructions from therapist. 03/21/20 =25% met - Treatment 1 Descriptor HEP/POC. Brittany was seen with one of her caregivers present , Kasandra. Active problem solving for portable pedaling unit; discussed pursuing alternative pedal for the left foot/foot pedal given difficulties observed and based on patient' s concerns re: ability to use personal steward/stewardess bath to manage velcro. Reviewed importance of tone management of the UEs via WB exercises and consistency w/ execution of home exercises. Reviewed therapist's focus on identifying exercises/ activities that patient can complete without assistance ( to complete in the afternoon without caregiver assistance). Will need to follow-up w/ PCP re: referral for sling given different message being conveyed on this date from patient. Concerns re: home e- stim unit and ineffectiveness; recommended contacting accordion maker if unit is no longer working. Will need to look into home e-stim unit coverage. Exercises 6 Descriptor Sh ROM. Scapular pinches. 1 x 10. Passive ER. 1 x 10. Passive sh ext. 1 x 10. Passive sh abd. Passive hor abd w/ ER. 1 x 10. 5 Descriptor Tone management. Forearm WB of L UE onto bolster. 1x10. Assist w/ positioning and cueing to support weight bearing. Bolster. WB at TT modified w/ towel. 1x10. WB at TT at edge of table. 1x10. 4 Descriptor Neurofacilitation. Retraining of functional reach pattern of L UE. Scapular retraining. 1 x 10. 3 Descriptor Chadian e-stim. 10/10 cycle. 32 --> 23 intensity. Facilitation of wrist/digit extension. L forearm placement of pads. Skin intact pre- and post-treatment. Positive response to treatment. 2 Descriptor Elbow UE ROM. Elbow ext. Seated. TB #4. 2x10 . Elbow flex. Seated. 2 x 10. Muscle tapping. - Assessment Assessment of Improvement Patient expressed interest in GivMohr sling again on this treatment date w/ indication that PCP would be sending documentation as requested by therapist in near future. Frustration expressed re: home floor pedaling unit w/ management of left foot pedal; recommend pursuing alternative L foot pedal to support success given concerns w/ limitations of steward/stewardess bath w/ velcro management. Frustration expressed re: home e-stim units; recommended contacting accordion maker of unit deemed ' not working'. Patient reported decreased compliance w/ UE home exercise program; will need to monitor for carry-over . Recommend consulting w/ PT. Recommend consideration of SUPERVISOR PREPRESS referral. Continued outpatient OT is recommended for development of appropriate of UE HEP, addressing UE pain, UE ROM, education, and neuro re- education. Recommended activities: neuro facilitation/re-ed; ther ex; ther act; functional activities; bimanual coordination Home Exercise Program Please refer to treatment section of note for specific details. - Plan Therapy Recommendations Continue with Current Program, Advance per Rehabilitation Protocol Additional Therapy Recommendations Consult w/ other therapies
--- NOTE | 2020-04-01 11:56 | OT.OP.TRT ---
Visit Care Team Role Provider Type KINJAL Cooper Attending Provider Advanced Aids Nurse Primary Care Provider Referring Provider Specialty: Family Practice Address: [address] [place] [address], [facility] Email: [email or web address] Occupational Therapy Treatment Note OT Outpatient Treatment Note - Adult Start: 11/15/19 09:37 Freq: Status: Active Protocol: Document 04/01/20 11:45 AMS (Rec: 04/01/20 11:55 AMS [id number]) OT Outpatient Adult Treatment Note Session Time Visit Start Time 10:35 Visit Stop Time 11:25 Total Visit Minutes 50 Visit Information Plan of Care Dates 02/06/20-04/30/20 Insurance Information [facility] Medicare Advantage; KX at 20 visits Setting Treatment Setting Outpatient Care Visit Type Note Type Treatment Note General Information General Information Brittany is a 50 year-old right hand dominant female referred to outpatient OT by PCP, Amie Monique MD, secondary to L UE weakness, other symptoms and signs involving the musuloskeletal system, contracture of muscle of L upper arm. Patient reported that she suffered a stroke in 2014 after having surgery for brain aneurysm; Brittany stated that it occurred while she was residing in [place]. Brittany reportedly moved frequently since date of onset to present day. Brittany has prox L sh stabilization brace; she reports that she has to have brace or encounters pain half way through the day. She also has night splint that she says doesn't work/doesn't stay in her hand. She has several Saebo products to encourage muscle contraction of the UE (e-stim to facilitate elbow flex/ext); she has a mirror box; she receives dry needling 2 x per month. She is receiving outpatient PT. PMH: Significant for memory loss; neck pain; neuropathy; seizures; stroke; thyroid disorder; traumatic brain inj; vision problems. - Subjective Identification Type Name Identification Reconciled With Medical Record Observations Brittany indicated that she ' would like to try the GivMohr sling'. She indicated that ' she has been practicing her weight bearing with the wheelchair'. - Objective Objective Measurements Please refer to below for progress towards meeting established goals. Short Term Goals 1. 0-90 degrees active L elbow flexion. 03/11/20= GOAL UPGRADED 2. 0-45 degrees active L shoulder extension. GOALS MET 0-15 degrees active L elbow flexion. 03/11/20 = 0-50 Halfway Goals 1. Brittany will be modified independent with execution of upper extremity home exercise program (including UE ROM, positioning) with support of family and caregivers utilizing provided written and visual instructions from therapist. 03/21/20 =25% met - Treatment 2 Descriptor E-stim. 2 lead approach. 10 cycle. Facilitation of elbow flexion. Intensity. 31. Facilitation of wrist/digit extension. Intensity. 27. Skin intact pre- and post- treatment. Patient actively engaged in modality. 1 Descriptor HEP/POC. Will continue to need to follow-up w/ PCP re: referral for sling. Concerns re: home e-stim unit and ineffectiveness; recommended contacting silica spray mixer if unit is no longer working. Will need to look into home e- stim unit coverage; education was provided re: different types of units. Exercises 7 Descriptor Sh AROM. Scapular pinches. 1x10. Sh flexion. 1x10. 6 Descriptor Sh ROM. Passive ER. 1 x 10. Passive sh ext. 1 x 10. Passive sh abd. Passive hor abd w/ ER. 1 x 10. 5 Descriptor Tone management. Forearm WB of L UE onto bolster. 1x10. Assist w/ positioning and cueing to support weight bearing. WB at TT modified w/ towel. 1x10. WB at TT at edge of table. 1x10. Singular parallel bar. L hand. L<->R weight shifting. 1x10. Modified push-up/WB. 1x10. 4 Descriptor Neurofacilitation. Functional reach pattern of L UE TT. 2x10 pre- e-stim. 2x10 post- e-stim. Scapular retraining. 1 x 10. 2 Descriptor Elbow UE ROM. Elbow ext. Seated. TB #4. 2x10 . Elbow flex. Seated. 2 x 10. Muscle tapping. - Assessment Assessment of Improvement Patient expressed interest in 'wanting to try GivMohr sling' on this treatment date. Patient inquired about need for hospital bed w/ interest in the ability of bed to adjust different heights which support her mobility. Continued frustration expressed re: home e-stim units; recommend consulting w/ PT. Used 2-lead approach w/ e -stim based on patient concerns. Initiated functional /alternative weight bearing option at [facility] parallel bar. Patient reported increased compliance w/ weight bearing component of UE home exercise program; will need to monitor for carry-over. Recommend consideration of MICROFABRICATION ENGINEER MANAGER referral. Continued outpatient OT is recommended for development of appropriate of UE HEP, addressing UE pain, UE ROM, education, and neuro re- education. Recommended activities: neuro facilitation/re-ed; ther ex; ther act; functional activities; bimanual coordination Home Exercise Program Please refer to treatment section of note for specific details. - Plan Therapy Recommendations Continue with Current Program, Advance per Rehabilitation Protocol Additional Therapy Recommendations Consult w/ other therapies
--- NOTE | 2020-04-15 14:10 | OT.OP.TRT ---
Visit Care Team Role Provider Type KINJAL Cooper Attending Provider Advanced Supervisor Poultry Processing Primary Care Provider Referring Provider Specialty: Family Practice Address: [address] [place] [address], [facility] Email: [email or web address] Occupational Therapy Treatment Note OT Outpatient Treatment Note - Adult Start: 11/15/19 09:37 Freq: Status: Active Protocol: Document 04/15/20 13:58 AMS (Rec: 04/15/20 14:10 AMS [id number]) OT Outpatient Adult Treatment Note Session Time Visit Start Time 10:30 Visit Stop Time 11:20 Total Visit Minutes 50 Visit Information Plan of Care Dates 02/06/20-04/30/20 Insurance Information [facility] Medicare Advantage; KX at 20 visits Setting Treatment Setting Outpatient Care Visit Type Note Type Treatment Note General Information General Information Brittany is a 50 year-old right hand dominant female referred to outpatient OT by PCP, Amie Monique MD, secondary to L UE weakness, other symptoms and signs involving the musuloskeletal system, contracture of muscle of L upper arm. Patient reported that she suffered a stroke in 2014 after having surgery for brain aneurysm; Brittany stated that it occurred while she was residing in [place]. Brittany reportedly moved frequently since date of onset to present day. Brittany has prox L sh stabilization brace; she reports that she has to have brace or encounters pain half way through the day. She also has night splint that she says doesn't work/doesn't stay in her hand. She has several Saeb[employer] products to encourage muscle contraction of the UE (e-stim to facilitate elbow flex/ext); she has a mirror box; she receives dry needling 2 x per month. She is receiving outpatient PT. PMH: Significant for memory loss; neck pain; neuropathy; seizures; stroke; thyroid disorder; traumatic brain inj; vision problems. - Subjective Identification Type Name Identification Reconciled With Medical Record Observations Brittany reported that she saw her PCP yesterday and that she has been referred to a womens specialist. Brittany reported that she knows that 'she needs to work on her impulsivity' and that she is having a 'hard time with the bed/chair exercises' and 'that she needs help'. Brittany expressed an interest in 'maybe going back to work'. Patient/Caregiver Compliance with Home Fair Exercise Program - Objective Objective Measurements Please refer to below for progress towards meeting established goals. Short Term Goals 1. 0-90 degrees active L elbow flexion. 03/11/20= GOAL UPGRADED 2. 0-45 degrees active L shoulder extension. GOALS MET 0-15 degrees active L elbow flexion. 03/11/20 = 0-50 [facility] Goals 1. Brittany will be modified independent with execution of upper extremity home exercise program (including UE ROM, positioning) with support of family and caregivers utilizing provided written and visual instructions from therapist. 04/15/20 =25% met - Treatment 2 Descriptor E-stim. 2 lead approach. 02/15 cycle. Facilitation of elbow flexion. Intensity. 22. Facilitation of wrist/digit extension. Intensity. 20. Skin intact pre- and post- treatment. Patient actively engaged in modality. 1 Descriptor HEP/POC. Reviewed importance of carry-over of HEP. Based on feedback, re-faxed request for Rx for GivMohr sling to PCP. Based on interest in returning to higher level IADLS, recommended that Brittany consider being evaluated by outpatient WRAPPER LAYER AND EXAMINER SOFT WORK therapist. Faxed PCP for request for speech evaluation and treatment as deemed appropriate by PCP. Informed Brittany that Medicare does not cover the cost of TENS unit and that is $120.00 out of pocket per DME specialist linked to outpatient clinic. Brittany inquired if given the [employer] and [employer] whether or not the TENS unit would be covered. Will reach out to DME specialist linked to outpatient clinic to determine if this changes coverage, et cetera. Exercises 7 Descriptor Sh AROM. Scapular pinches. 1x10. Sh flexion. 1x10. 6 Descriptor Sh ROM. Passive ER. 1 x 10. Passive sh ext. 1 x 10. Passive sh abd. Passive hor abd w/ ER. 1 x 10. 5 Descriptor Tone management. Forearm WB of L UE onto bolster. 1x10. Assist w/ positioning and cueing to support weight bearing. WB at TT modified w/ towel. 1x10. WB at TT at edge of table. 1x10. Singular parallel bar. L hand. L<->R weight shifting. 1x10. Modified push-up/WB. 1x10. 4 Descriptor Neurofacilitation. Functional reach pattern of L UE TT. 2x10 pre- e-stim. 2x10 post- e-stim. Scapular retraining. 1 x 10. 2 Descriptor Elbow UE ROM. Elbow ext. Seated. TB #4. 2x10 . Elbow flex. Seated. 2 x 10. Muscle tapping. - Assessment Assessment of Improvement Faxed PCP w/ request for Rx for GivMohr sling; faxed PCP w / request for Rx for outpatient WRAPPER LAYER AND EXAMINER SOFT WORK referral and treatment. Informed that Medicare does not cover TENS unit; will need to follow-up w / DME specialist w/ additional patient specific questions. Decreased carry-over of HEP recommendations. Will need to determine if progress is still being made to support continued outpatient OT at this time; patient would likely benefit from WR[employer] AND EXAMINER SOFT WORK to support organization/cognition /functional problem solving which would also encourage carry-over of therapy recommendations. Continued outpatient OT is recommended for development of appropriate of UE HEP, addressing UE pain, UE ROM, education, and neuro re- education. Recommended activities: neuro facilitation/re-ed; ther ex; ther act; functional activities; bimanual coordination Home Exercise Program Please refer to treatment section of note for specific details. - Plan Therapy Recommendations Continue with Current Program, Advance per Rehabilitation Protocol Additional Therapy Recommendations Consult w/ other therapies Suggested Referrals Speech Therapy
--- NOTE | 2020-04-22 14:10 | OT.OP.TRT ---
Visit Care Team Role Provider Type KINJAL Cooper Attending Provider Advanced Keller Machine Operator Primary Care Provider Referring Provider Specialty: Family Practice Address: [address] [place] [address], [facility] Email: [email or web address] Occupational Therapy Treatment Note OT Outpatient Treatment Note - Adult Start: 11/15/19 09:37 Freq: Status: Active Protocol: Document 04/22/20 13:58 AMS (Rec: 04/22/20 14:09 AMS [id number]) OT Outpatient Adult Treatment Note Session Time Visit Start Time 10:30 Visit Stop Time 11:20 Total Visit Minutes 50 Visit Information Plan of Care Dates 02/06/20-04/30/[address] Insurance Information [facility] Medicare Advantage; KX at 20 visits Setting Treatment Setting Outpatient Care Visit Type Note Type Treatment Note General Information General Information Brittany is a 50 year-old right hand dominant female referred to outpatient OT by PCP, Amie Monique MD, secondary to L UE weakness, other symptoms and signs involving the musuloskeletal system, contracture of muscle of L upper arm. Patient reported that she suffered a stroke in 2014 after having surgery for brain aneurysm; Brittany stated that it occurred while she was residing in [place]. Brittany reportedly moved frequently since date of onset to present day. Brittany has prox L sh stabilization brace; she reports that she has to have brace or encounters pain half way through the day. She also has night splint that she says doesn't work/doesn't stay in her hand. She has several Saebo products to encourage muscle contraction of the UE (e-stim to facilitate elbow flex/ext); she has a mirror box; she receives dry needling 2 x per month. She is receiving outpatient PT. PMH: Significant for memory loss; neck pain; neuropathy; seizures; stroke; thyroid disorder; traumatic brain inj; vision problems. - Subjective Identification Type Name Identification Reconciled With Medical Record Observations I can use the bench per Brittany. Patient/Caregiver Compliance with Home Fair Exercise Program - Objective Objective Measurements Please refer to below for progress towards meeting established goals. Short Term Goals 1. 0-90 degrees active L elbow flexion. 03/11/20= GOAL UPGRADED 2. 0-45 degrees active L shoulder extension. GOALS MET 0-15 degrees active L elbow flexion. 03/11/20 = 0-50 Military Education Coordinator Goals 1. Brittany will be modified independent with execution of upper extremity home exercise program (including UE ROM, positioning) with support of family and caregivers utilizing provided written and visual instructions from therapist. 04/15/20 =25% met - Treatment 2 Descriptor E-stim. 2 lead approach. 10/10 cycle. Facilitation of elbow flexion. Intensity. 22. Facilitation of wrist/digit extension. Intensity. 24. Skin intact pre- and post- treatment. Patient actively engaged in modality. 1 Descriptor HEP/POC. Reviewed importance of carry-over of HEP. Focus on tone management w/ active weight bearing through digits/ hand. Reviewed at EOM given that patient reportedly has bench that she can use for this activity/exercise. Exercises 7 Descriptor Sh AROM. Scapular pinches. 1x10. Sh flexion. 1x10. Standing. TT . 6 Descriptor Sh ROM. Passive ER. 1 x 10. Passive sh ext. 1 x 10. Passive sh abd. Passive hor abd w/ ER. 1 x 10. 5 Descriptor Tone management. WB at TT modified w/ towel. 1x10. WB at TT at edge of table. 1x10. Singular parallel bar. L hand. L<->R weight shifting. 1x10. Modified push-up/WB. 1x10. 4 Descriptor Neurofacilitation. Functional reach pattern of L UE TT. 2x10 pre- e-stim. 2x10 post- e-stim. Scapular retraining. 1 x 10. 2 Descriptor Elbow UE ROM. Elbow ext. Seated. TB #4. 2x10 . Elbow flex. Seated. 2 x 10. Muscle tapping. - Assessment Assessment of Improvement Decreased carry-over of HEP recommendations. Patient reports inability to execute active elbow flex/ext exercises on own. Patient inquired about home e-stim unit and reports that she is currently not utilizing the one that she has. Patient however, did reportedly identify bench in the home as an option to support UE tone management. Practiced exercise /activity in treatment session w/ inconsistent success w/ proper positioning of digits to support tone management. Will need to determine if progress is still being made to support continued outpatient OT at this time; patient would likely benefit from [employer] to support organization/cognition/ functional problem solving which would also encourage carry-over of therapy recommendations. PLAN: progress note; collaborate w/ outpatient PT Continued outpatient OT is recommended for development of appropriate of UE HEP, addressing UE pain, UE ROM, education, and neuro re- education. Home Exercise Program Please refer to treatment section of note for specific details. - Plan Therapy Recommendations Continue with Current Program, Advance per Rehabilitation Protocol Additional Therapy Recommendations Consult w/ other therapies Suggested Referrals Speech Therapy
--- NOTE | 2020-04-29 14:04 | OT.OPPN ---
Current Diagnoses Contracture of muscle, left upper arm (04/29/20) Other symptoms and signs involving the musculoskeletal system (04/29/20) Occupational Therapy Inpatient Evaluation/Re-Eval OT Outpatient Adult Evaluation Start: 11/15/19 09:37 Freq: Status: Active Protocol: Document 11/15/19 09:37 AMS (Rec: 11/15/19 10:29 AMS [id number]) General Information Session Time Visit Start Time 08:30 Visit Stop Time 09:20 Total Visit Minutes 50 Visit Information Plan of Care Dates 11/15/19-02/07/20 Insurance Information [facility] Medicare Advantage; KX at 20 visits Setting Treatment Setting Outpatient Care Visit Type Note Type Initial Evaluation Referral Referring Physician Amie Monique MD Reason for Referral L UE weakness; contracture of muscle, left upper arm Identification Identification Confirmed Yes: Photo ID Range of Motion Shoulder Right Active Elbow/Forearm ROM WFL Yes Forearm ROM Testing Position Sitting Left Elbow/Forearm ROM WFL No Forearm ROM Testing Position Sitting Shoulder Flex AROM (degrees) 0-10 Shoulder Flex PROM (degrees) 0-80 Shoulder Ext AROM (degrees) 0-25 Shoulder Ext PROM (degrees) 0-50 Shoulder Abd AROM (degrees) 0-0 Shoulder IR AROM (degrees) 0-10 Shoulder IR PROM (degrees) WFL Shoulder ER AROM (degrees) 0-0 Shoulder ER PROM (degrees) 0-30 Limitations Soft Tissue Tightness, Contracture,Muscle Tone,Pain Elbow/Forearm Right Active Elbow/Forearm ROM WFL Yes Forearm ROM Testing Position Sitting Left Elbow/Forearm ROM WFL No Forearm ROM Testing Position Sitting Elbow Flex AROM (degrees) 0-5 Elbow Flex PROM (degrees) 0-130 Elbow Ext AROM (degrees) 0-5 Elbow Ext PROM (degrees) 0-130 Forearm Pron AROM (degrees) 0-0 Forearm Pron PROM (degrees) WFL Forearm Sup AROM (degrees) 0-0 Forearm Sup PROM (degrees) WFL Wrist Left Wrist ROM WFL No Wrist ROM Testing Position Sitting Wrist Flex AROM (degrees) 0-0 Wrist Flex PROM (degrees) WFL Wrist Ext AROM Fingers Open (degrees) 0-0 Wrist Ext PROM Fingers Open (degrees) 0-0 Wrist Ext AROM Fingers Flexed (degrees) 0-0 Wrist Ext PROM Fingers Flexed (degrees) WFL Ulnar Deviation AROM (degrees) 0-0 Ulnar Deviation PROM (degrees) WFL Radial Deviation AROM (degrees) 0-0 Radial Deviation PROM (degrees) WFL Goals Treatment Treatment Facilitation of active sh ext 1 x 10; elbow flex 1 x 10; elbow ext 1 x 10. Facilitation of scapular mobility with retraction/protraction of L scapula 1 x 10 w/ functional movement patterns. Short Term Goals Short Term Goals 1. 0-15 degrees active L elbow flexion. 2. 0-15 degrees active L elbow extension. 3. 0-45 degrees active L shoulder extension. Retirement Goals Rn Examiner Goals 1. Brittany will be modified independent with execution of upper extremity home exercise program (including UE ROM, positioning) with support of family and caregivers utilizing provided written and visual instructions from therapist. Assessment/Plan Assessment Treatment Assessment Brittany is a 49 year-old right hand dominant female referred to outpatient OT by PCP, Amie Monique MD, secondary to L UE weakness, other symptoms and signs involving the musuloskeletal system, contracture of muscle of L upper arm. Patient reported that she suffered a stroke in 2014 after having surgery for brain aneurysm; Brittany stated that it occurred while she was residing in [place]. Brittany reportedly moved frequently since date of onset to present day. Brittany has prox L sh stabilization brace; she reports that she has to have brace or encounters pain half way through the day. She also has night splint that she says doesn't work/doesn't stay in her hand. She has several Sa[employer] products to encourage muscle contraction of the UE (e-stim to facilitate elbow flex/ext); she has a mirror box; she receives dry needling 2 x per month. She is receiving outpatient PT. PMH: Significant for memory loss; neck pain; neuropathy; seizures; stroke; thyroid disorder; traumatic brain inj; vision problems. Patient complaints: Loss of active range of motion of L UE . Evaluation Findings: R hand dominant; ambulates with quad cane; has manual w/c and power w/c; c/o pain in R distal UE w/ use of mobility AE w/ intermittent report of nerve compression; pain of posterior neck/lateral neck/between scapulae 3/10 on pain scale; pain of L lumbar region and distal L lateral LE 5/10 on pain scale; pain of R hand 4/ 10 on pain scale. Decreased functional independence w/ BADLS; based on self-report, Brittany is able to doff and don UB and LB clothing w/ mod I (besides assist w/ management of bra), is mod I w / toileting, and requires supervision w/ showering d/t seizures. Impaired posture; bilateral rounding of shoulders, forward positioning of head w/ chin protrusion, and IR of L sh. (-) arm swing and increased body weight placed through quad cane. Tightness of neck musculature and decreased L scapular mobility; decreased L lateral neck rotation ROM vs R. Decreased active ROM of L UE. Decreased motor planning of the L UE. Decreased orientation to midline. Impaired sensation of UE. Outpatient OT is recommended for education re: positioning and development of appropriate of UE HEP; it is also recommended to address UE pain and ROM. Reviewed with Patient Goals Plan Comment 12 weeks Comment 1-2 times per week Therapeutic Contents Active Range of Motion, Adaptive Equipment Education, Client Education,Cognitive Skills Development,Functional Activities,Home Exercise Program,Joint Protection, Manual Therapy,Education, Neurodevelopment Treatment, Neuromuscular Re-Education, Self-Care,Splinting,Stretching /Flexibility Activities, Therapeutic Activities, Therapeutic Exercises, Modalities,Sensory Re- education Modalities As Needed,As Prescribed Types of Modalities E-Stim,Functional Stimulation (FES),Ice Massage,T.E.N. Stimulation,TENS Placement/ Application Additional Types of Modalities Heat Sensory Assessment Sensory Profile2 Functional Wrist/Hand Scan Hand Side OT Outpatient Treatment Note - Adult Start: 11/15/19 09:37 Freq: Status: Active Protocol: Document 04/29/20 13:44 AMS (Rec: 04/29/20 14:04 AMS [id number]) OT Outpatient Adult Treatment Note Session Time Visit Start Time 10:30 Visit Stop Time 11:20 Total Visit Minutes 50 Visit Information Plan of Care Dates 04/29/20-07/22/20 Insurance Information [facility] Medicare Advantage; KX at 20 visits Setting Treatment Setting Outpatient Care Visit Type Note Type Progress Note General Information General Information Brittany is a 50 year-old right hand dominant female referred to outpatient OT by PCP, Amie Monique MD, secondary to L UE weakness, other symptoms and signs involving the musuloskeletal system, contracture of muscle of L upper arm. Patient reported that she suffered a stroke in 2014 after having surgery for brain aneurysm; Brittany stated that it occurred while she was residing in [place]. Brittany reportedly moved frequently since date of onset to present day. Brittany has prox L sh stabilization brace; she reports that she has to have brace or encounters pain half way through the day. She also has night splint that she says doesn't work/doesn't stay in her hand. She has several Saeb[employer] products to encourage muscle contraction of the UE (e-stim to facilitate elbow flex/ext); she has a mirror box; she receives dry needling 2 x per month. She is receiving outpatient PT. PMH: Significant for memory loss; neck pain; neuropathy; seizures; stroke; thyroid disorder; traumatic brain inj; vision problems. - Subjective Identification Type Name Identification Reconciled With Medical Record Observations I have started writing down goals again per Brittany. There is an alarm on my phone to remind me to do my arm exercises per Brittany. I have quite a few questions for PT. I am glad that I am back on the schedule. I didn't sleep very well last night. Patient/Caregiver Compliance with Home Fair Exercise Program - Objective Objective Measurements Please refer to below for progress towards meeting established goals. Short Term Goals 1. 0-90 degrees active L elbow flexion. 04/29/20= 25% met; 0-60 degrees elbow flex 2. 0-45 degrees active L shoulder extension. 04/29/20 = 25% met; 0-30 degrees sh ext GOALS MET 0-15 degrees active L elbow flexion. 03/11/20 = 0-50 Rn Examiner Goals 1. Brittany will be modified independent with execution of upper extremity home exercise program (including UE ROM, positioning) with support of family and caregivers utilizing provided written and visual instructions from therapist. 04/29/20 =25% met - Treatment 2 Descriptor E-stim. 2Facilitation of wrist /digit extension. Intensity. 24. Skin intact pre- and post- treatment. Patient actively engaged in modality. 1 Descriptor HEP/POC. Reviewed importance of carry-over of HEP. Discussed establishment of short term/smaller goals and bigger goals. Discussed IMMIGRATION LAW SPECIALIST referral w/ d/c from OT versus alt therapies on a weekly basis. Discussed contact of DME provider associated w/ hospital outpatient clinic for GivMohr sling. Exercises 7 Descriptor Sh AROM. Scapular pinches. 1x10. Sh flexion. 1x10. Standing. TT . 6 Descriptor Sh ROM. Passive ER. 1 x 10. Passive sh ext. 1 x 10. Passive sh abd. Passive hor abd w/ ER. 1 x 10. 5 Descriptor Tone management. WB at TT modified w/ towel. 1x10. WB at TT at edge of table. 1x10. Singular parallel bar. L hand. L<->R weight shifting. 1x10. Modified push-up/WB. 1x10. 4 Descriptor Neurofacilitation. Functional reach pattern of L UE TT. 2x10 pre- e-stim. 2x10 post- e-stim. Scapular retraining. 1 x 10. 2 Descriptor Elbow UE ROM. Elbow ext. Seated. TB #4. 2x10 . Elbow flex. Seated. 2 x 10. Muscle tapping. - Assessment Assessment of Improvement Brittany has made minimal progress towards meeting established OT goals over this last certification period. She is demonstrating slightly improved active elbow flex and active elbow ext; she has been inconsistent w/ carry- over of home program recommendations. Therapist has provided education re: importance of carry-over. Brittany does have caregivers who come into the home; however, based on limitations of their hours, they have been unable to provide additional support for carry-over of OT HEP. Brittany has also been limited by space within the home, right wrist/hand pain, and intolerance for sidelying. Patient has expressed frustration in current g/h subluxation sling and hospital DME provider has ordered a GivMohr sling for patient. Will determine if the GivMohr sling is a better fit for the patient and her needs. Therapist has spoken to patient about IMMIGRATION LAW SPECIALIST to support organization/cognition/ functional problem solving which would likely also encourage carry-over of therapy recommendations. Ability to alternate therapies was also discussed. Will need to re-approach at time of next session. Continued outpatient OT is recommended for development of appropriate of UE HEP, GivMohr sling. Therapist will need to monitor if progress is made w/ addition of automated manufacturing instructor relative to UE goals. Home Exercise Program Please refer to treatment section of note for specific details. - Plan Therapy Recommendations Continue with Current Program, Advance per Rehabilitation Protocol Additional Therapy Recommendations Consult w/ other therapies Comment 12 weeks Frequency of Treatment Once a Week Therapeutic Contents Active Range of Motion, Adaptive Equipment Education, Client Education,Cognitive Skills Development,Functional Activities,Home Exercise Program,Joint Protection, Education,Neurodevelopment Treatment,Neuromuscular Re- Education,Self-Care,Splinting, Stretching/Flexibility Activities,Therapeutic Activities,Therapeutic Exercises,Modalities,Sensory Re-education Suggested Referrals Speech Therapy
--- NOTE | 2020-05-20 11:48 | OT.OP.TRT ---
Visit Care Team Role Provider Type KINJAL Cooper Attending Provider Advanced Deputy Clerk Of Court Primary Care Provider Referring Provider Specialty: Family Practice Address: [address] [place] [address], [facility] Email: [email or web address] Occupational Therapy Treatment Note OT Outpatient Treatment Note - Adult Start: 11/15/19 09:37 Freq: Status: Active Protocol: Document 05/20/20 11:30 AMS (Rec: 05/20/20 11:48 AMS [id number]) OT Outpatient Adult Treatment Note Session Time Visit Start Time 10:30 Visit Stop Time 11:20 Total Visit Minutes 50 Visit Information Plan of Care Dates 04/29/20-07/22/20 Insurance Information [facility] Medicare Advantage; KX at 20 visits Setting Treatment Setting Outpatient Care Visit Type Note Type Progress Note General Information General Information Brittany is a 50 year-old right hand dominant female referred to outpatient OT by PCP, Amie Monique MD, secondary to L UE weakness, other symptoms and signs involving the musuloskeletal system, contracture of muscle of L upper arm. Patient reported that she suffered a stroke in 2014 after having surgery for brain aneurysm; Brittany stated that it occurred while she was residing in [place]. Brittany reportedly moved frequently since date of onset to present day. Brittany has prox L sh stabilization brace; she reports that she has to have brace or encounters pain half way through the day. She also has night splint that she says doesn't work/doesn't stay in her hand. She has several [employer] products to encourage muscle contraction of the UE (e-stim to facilitate elbow flex/ext); she has a mirror box; she receives dry needling 2 x per month. She is receiving outpatient PT. PMH: Significant for memory loss; neck pain; neuropathy; seizures; stroke; thyroid disorder; traumatic brain inj; vision problems. - Subjective Identification Type Name Identification Reconciled With Medical Record Observations I had a fall onto this hip. I don't know if I fell because I was dizzy or because I didn' t place this foot right. They did an x-ray per Brittany. I was sick all last week. I felt really weak. I have using the e-stim unit for 15 minutes while I have been holding onto the bar. I have also been pushing down into the arm in the morning. I want to be able to get back to being able to wear regular shoes and be strong enough to not wear the AFO. 05/05/20 2V L XR Hip Findings: Question faint calcification versus tiny avulsion off the greater trochanter of the left hip. Patient/Caregiver Compliance with Home Fair Exercise Program - Objective Objective Measurements Please refer to below for progress towards meeting established goals. Short Term Goals 1. 0-90 degrees active L elbow flexion. 04/29/20= 25% met; 0-60 degrees elbow flex 2. 0-45 degrees active L shoulder extension. 04/29/20 = 25% met; 0-30 degrees sh ext GOALS MET 0-15 degrees active L elbow flexion. 03/11/20 = 0-50 [facility] Goals 1. Brittany will be modified independent with execution of upper extremity home exercise program (including UE ROM, positioning) with support of family and caregivers utilizing provided written and visual instructions from therapist. 04/29/20 =25% met - Treatment 2 Descriptor E-stim. Facilitation of wrist/ digit extension. Intensity. 24 . Facilitation of elbow flexion. Intensity 23. Skin intact pre- and post- treatment. Patient actively engaged in modality. 1 Descriptor HEP/POC. Trialed GivMohr L UE sling size medium. Brittany would like to determine if insurance will cover the full cost of the sling. Discussed pros and cons and working towards Brittany being able to don sling without assistance to support functional independence. Concerns were verbalized re: component of sling that goes under R armpit . Discussed possible modifications. Reviewed importance of carry-over of HEP. Exercises 7 Descriptor Sh AROM. Scapular pinches. 1x10. Sh flexion. 1x10. Standing. TT . 6 Descriptor Sh ROM. Passive ER. 1 x 10. Passive sh ext. 1 x 10. Passive sh abd. Passive hor abd w/ ER. 1 x 10. 5 Descriptor Tone management. WB at TT modified w/ towel. 1x10. WB at TT at edge of table. 1x10. Singular parallel bar. L hand. L<->R weight shifting. 1x10. Modified push-up/WB. 1x10. 4 Descriptor Neurofacilitation. Functional reach pattern of L UE TT. 2x10 pre- e-stim. 2x10 post- e-stim. Scapular retraining. 1 x 10. 2 Descriptor Elbow UE ROM. Elbow ext. Seated. TB #4. 2x10 . Elbow flex. Seated. 2 x 10. Muscle tapping. - Assessment Assessment of Improvement Trialed GivMohr sling size medium; Brittany voiced concerns re: component that is positioned in R armpit. Discussed modifications that could be made to support comfort. Discussed pros and cons. Brittany would like to determine if insurance covers full cost of sling; therapist discussed working towards Brittany's ability to don sling without assistance to support functional independence. Recent GLF w/ follow-up x-ray; communicated finding via e- mail to patient's primary PT. Reported recent illness w/ c/o weakness and need for rest; thus, decreased activity over the past week. Patient reports compliance w/ use of home e- stim unit w/ engagement of grasp and weight bearing through arm upon waking in the morning. Will need to follow- up re: GivMohr sling and addressing active ROM via various approaches (addressing body position, home set-up, et cetera). Continued outpatient OT is recommended for development of appropriate of UE HEP, GivMohr sling. Home Exercise Program Please refer to treatment section of note for specific details. - Plan Therapy Recommendations Continue with Current Program, Advance per Rehabilitation Protocol Suggested Referrals Speech Therapy
--- NOTE | 2020-05-27 12:31 | OT.OP.TRT ---
Visit Care Team Role Provider Type KINJAL Cooper Attending Provider Advanced Nurse Discharge Primary Care Provider Referring Provider Specialty: Family Practice Address: [address] [place] [address], [facility] Email: [email or web address] Occupational Therapy Treatment Note OT Outpatient Treatment Note - Adult Start: 11/15/19 09:37 Freq: Status: Active Protocol: Document 05/27/20 12:21 AMS (Rec: 05/27/20 12:30 AMS [id number]) OT Outpatient Adult Treatment Note Session Time Visit Start Time 10:30 Visit Stop Time 11:25 Total Visit Minutes 55 Visit Information Plan of Care Dates 04/29/20-07/22/20 Insurance Information [facility] Medicare Advantage; KX at 20 visits Setting Treatment Setting Outpatient Care Visit Type Note Type Treatment Note General Information General Information Brittany is a 50 year-old right hand dominant female referred to outpatient OT by PCP, Amie Monique MD, secondary to L UE weakness, other symptoms and signs involving the musuloskeletal system, contracture of muscle of L upper arm. Patient reported that she suffered a stroke in 2014 after having surgery for brain aneurysm; Brittany stated that it occurred while she was residing in [place]. Brittany reportedly moved frequently since date of onset to present day. Brittany has prox L sh stabilization brace; she reports that she has to have brace or encounters pain half way through the day. She also has night splint that she says doesn't work/doesn't stay in her hand. She has several [employer] products to encourage muscle contraction of the UE (e-stim to facilitate elbow flex/ext); she has a mirror box; she receives dry needling 2 x per month. She is receiving outpatient PT. PMH: Significant for memory loss; neck pain; neuropathy; seizures; stroke; thyroid disorder; traumatic brain inj; vision problems. - Subjective Identification Type Name Identification Reconciled With Medical Record Observations I need help with orientation (finding the front/back). I can put on my shirt and sweatshirt by myself but sometimes I need assistance. I can do my socks on my own. I have trouble with hygiene. I do have grab bars in the bathroom. I can't lay on my stomach and I have a hard time kneeling for Dr. Carter's visits . I got a new small elliptical that can go under the table. I have journaling and I have been writing down and doing my exercises per Brittany. 05/05/20 2V L XR Hip Findings: Question faint calcification versus tiny avulsion off the greater trochanter of the left hip. Patient/Caregiver Compliance with Home Fair Exercise Program Comment Improving - Objective Objective Measurements Please refer to below for progress towards meeting established goals. Short Term Goals 1. 0-90 degrees active L elbow flexion. 04/29/20= 25% met; 0-60 degrees elbow flex 2. 0-45 degrees active L shoulder extension. 04/29/20 = 25% met; 0-30 degrees sh ext GOALS MET 0-15 degrees active L elbow flexion. 03/11/20 = 0-50 Town Administrator Goals 1. Brittany will be modified independent with execution of upper extremity home exercise program (including UE ROM, positioning) with support of family and caregivers utilizing provided written and visual instructions from therapist. 04/29/20 =25% met - Treatment 2 Descriptor E-stim. Facilitation of wrist/ digit extension. Intensity. 24 . Facilitation of elbow flexion. Intensity 23. Skin intact pre- and post- treatment. Patient actively engaged in modality. 1 Descriptor HEP/POC. Provided w/ GivMohr sling size medium. Maximum assistance w/ donning/doffing sling. Recommend working on improving Brittany's functional independence w/ management of sling. Appropriate paperwork was completed and copy was provided to patient. Original was given to rehabilitation nurse to provide to hospital affiliated DME provider. Functional problem solving was completed relative to dressing/toileting . Will need to re-visit. Exercises 7 Descriptor Sh AROM. Scapular pinches. 1x10. Sh flexion. 1x10. Standing. TT . 6 Descriptor Sh ROM. Passive ER. 1 x 10. Passive sh ext. 1 x 10. Passive sh abd. Passive hor abd w/ ER. 1 x 10. 5 Descriptor Tone management. WB at TT modified w/ towel. 1x10. WB at TT at edge of table. 1x10. Singular parallel bar. L hand. L<->R weight shifting. 1x10. Modified push-up/WB. 1x10. 4 Descriptor Neurofacilitation. Functional reach pattern of L UE TT. 2x10 pre- e-stim. 2x10 post- e-stim. Scapular retraining. 1 x 10. 2 Descriptor Elbow UE ROM. Elbow ext. Seated. TB #4. 2x10 . Elbow flex. Seated. 2 x 10. Muscle tapping. - Assessment Assessment of Improvement Provided GivMohr size medium sling to patient; maximum physical assistance w/ donning /doffing/adjusting sling. Recommend working on improving functional independence w/ sling management. Problem solved w/ patient re: component that sits in R arm pit; will need to follow-up. Discussed functional independence w/ dressing, toileting, and weight shifting /functional transfers. Will need to re-visit these areas to support patient. Has h/o trialing various bras to support functional independence. Difficulty reported w/ orientation of clothing items; could explore this area further. Continued outpatient OT is recommended for development of appropriate of UE HEP, functional problem solving, functional independence, weight shifting Home Exercise Program Please refer to treatment section of note for specific details. - Plan Therapy Recommendations Continue with Current Program, Advance per Rehabilitation Protocol Suggested Referrals Speech Therapy
--- NOTE | 2020-06-03 15:00 | OT.OP.TRT ---
Visit Care Team Role Provider Type KINJAL Cooper Attending Provider Advanced Managing Consultant Clinical Professor Primary Care Provider Referring Provider Specialty: Family Practice Address: [address] [place] [address], [facility] Email: [email or web address] Occupational Therapy Treatment Note OT Outpatient Treatment Note - Adult Start: 11/15/19 09:37 Freq: Status: Active Protocol: Document 06/03/20 14:47 AMS (Rec: 06/03/20 14:59 AMS [id number]) OT Outpatient Adult Treatment Note Session Time Visit Start Time 10:30 Visit Stop Time 11:25 Total Visit Minutes 55 Visit Information Plan of Care Dates 04/29/20-07/22/20 Insurance Information [facility] Medicare Advantage; KX at 20 visits Setting Treatment Setting Outpatient Care Visit Type Note Type Treatment Note General Information General Information Brittany is a 50 year-old right hand dominant female referred to outpatient OT by PCP, Amie Monique MD, secondary to L UE weakness, other symptoms and signs involving the musuloskeletal system, contracture of muscle of L upper arm. Patient reported that she suffered a stroke in 2014 after having surgery for brain aneurysm; Brittany stated that it occurred while she was residing in [place]. Brittany reportedly moved frequently since date of onset to present day. Brittany has prox L sh stabilization brace; she reports that she has to have brace or encounters pain half way through the day. She also has night splint that she says doesn't work/doesn't stay in her hand. She has several [employer] products to encourage muscle contraction of the UE (e-stim to facilitate elbow flex/ext); she has a mirror box; she receives dry needling 2 x per month. She is receiving outpatient PT. PMH: Significant for memory loss; neck pain; neuropathy; seizures; stroke; thyroid disorder; traumatic brain inj; vision problems. - Subjective Identification Type Name Identification Reconciled With Medical Record Observations It is a horizontal grab bar at shoulder height per Brittany. I didn't realize that it was so high. They were having a hard time knowing how to put on the GivMohr sling per Brittany. 05/05/20 2V L XR Hip Findings: Question faint calcification versus tiny avulsion off the greater trochanter of the left hip. Patient/Caregiver Compliance with Home Fair Exercise Program Comment Improving - Objective Objective Measurements Please refer to below for progress towards meeting established goals. Short Term Goals 1. 0-90 degrees active L elbow flexion. 04/29/20= 25% met; 0-60 degrees elbow flex 2. 0-45 degrees active L shoulder extension. 04/29/20 = 25% met; 0-30 degrees sh ext GOALS MET 0-15 degrees active L elbow flexion. 03/11/20 = 0-50 Jail Goals 1Barry Soto will be modified independent with execution of upper extremity home exercise program (including UE ROM, positioning) with support of family and caregivers utilizing provided written and visual instructions from therapist. 04/29/20 =25% met - Treatment 2 Descriptor E-stim. Facilitation of wrist/ digit extension. Intensity. 24 . Facilitation of elbow flexion. Intensity 23. Skin intact pre- and post- treatment. Patient actively engaged in modality. 1 Descriptor HEP/POC. Took photographs on patient's personal cell phone to support caregivers donning of the GivMohr sling. Locked straps of sling into place to discourage further adjustments to lengths of straps. Further discussed bathroom set-up; Brittany indicated that the grab bar in the bathroom is at shoulder height horizontally. Therefore she can not weight shift to the left to support functional independence w/ hygiene. Brittany also indicated that the other vertical grab bar in the bathroom is too far away for her to grab w/ the left hand. Will need to discuss AE based on this additional information . Exercises 7 Descriptor Sh AROM. Scapular pinches. 1x10. Sh flexion. 1x10. Standing. TT . 6 Descriptor Sh ROM. Passive ER. 1 x 10. Passive sh ext. 1 x 10. Passive sh abd. Passive hor abd w/ ER. 1 x 10. 5 Descriptor Tone management. WB at TT modified w/ towel. 1x10. WB at TT at edge of table. 1x10. Singular parallel bar. L hand. L<->R weight shifting. 1x10. Modified push-up/WB. 1x10. 4 Descriptor Neurofacilitation. Functional reach pattern of L UE TT. 2x10 pre- e-stim. 2x10 post- e-stim. Scapular retraining. 1 x 10. 2 Descriptor Elbow UE ROM. Elbow ext. Seated. TB #4. 2x10 . Elbow flex. Seated. 2 x 10. Muscle tapping. - Assessment Assessment of Improvement Maximum assistance w/ donning and doffing GivMohr sling. Questions re: proper orientation of sling; took photographs on patient's personal cell phone to support caregivers/patient. Recommend working on improving functional independence w/ sling management. Decreased success with functional problem solving w/ toileting; thus, likely need to further explore AE that could assist in this area. Hesitancy w/ weight shifting/weight bearing w/ trunk flexion approach in standing. (+) attempts at s-s without UE support as recently directed by PT; however, did use R hand intermittently despite awareness. Continued outpatient OT is recommended for development of appropriate of UE HEP, functional problem solving, functional independence, weight shifting Home Exercise Program Please refer to treatment section of note for specific details. - Plan Therapy Recommendations Continue with Current Program, Advance per Rehabilitation Protocol Suggested Referrals Speech Therapy
--- NOTE | 2020-06-27 15:30 | OT.OP.TRT ---
Visit Care Team Role Provider Type KINJAL Cooper Attending Provider Advanced Software Manager Primary Care Provider Referring Provider Specialty: Family Practice Address: [address] [place] [address], [facility] Email: [email or web address] Occupational Therapy Treatment Note OT Outpatient Treatment Note - Adult Start: 11/15/19 09:37 Freq: Status: Active Protocol: Document 06/27/20 15:30 AMS (Rec: 06/30/20 09:54 AMS [id number]) OT Outpatient Adult Treatment Note Session Time Visit Start Time 10:30 Visit Stop Time 11:18 Total Visit Minutes 48 Visit Information Plan of Care Dates 04/29/20-07/22/[address] [facility] Medicare Advantage; KX at 20 visits Setting Treatment Setting Outpatient Care Visit Type Note Type Treatment Note General Information General Information Brittany is a 50 year-old right hand dominant female referred to outpatient OT by PCP, Amie Monique MD, secondary to L UE weakness, other symptoms and signs involving the musuloskeletal system, contracture of muscle of L upper arm. Patient reported that she suffered a stroke in 2014 after having surgery for brain aneurysm; Brittany stated that it occurred while she was residing in [place]. Brittany reportedly moved frequently since date of onset to present day. Brittany has prox L sh stabilization brace; she reports that she has to have brace or encounters pain half way through the day. She also has night splint that she says doesn't work/doesn't stay in her hand. She has several [employer] products to encourage muscle contraction of the UE (e-stim to facilitate elbow flex/ext); she has a mirror box; she receives dry needling 2 x per month. She is receiving outpatient PT. PMH: Significant for memory loss; neck pain; neuropathy; seizures; stroke; thyroid disorder; traumatic brain inj; vision problems. - Subjective Identification Type Name Identification Reconciled With Medical Record Observations Brittany was accompanied to OT treatment session w/ caregiver . No matter what we did the hand wouldn't stay on it per caregiver in re: GivMohr sling . It fell off her shoulder as well per caregiver. 05/05/20 2V L XR Hip Findings: Question faint calcification versus tiny avulsion off the greater trochanter of the left hip. Patient/Caregiver Compliance with Home Fair Exercise Program Comment Improving - Objective Objective Measurements Please refer to below for progress towards meeting established goals. Short Term Goals 1. 0-90 degrees active L elbow flexion. 04/29/20= 25% met; 0-60 degrees elbow flex 2. 0-45 degrees active L shoulder extension. 04/29/20 = 25% met; 0-30 degrees sh ext GOALS MET 0-15 degrees active L elbow flexion. 03/11/20 = 0-50 Tool Design Checker Goals 1. Brittany will be modified independent with execution of upper extremity home exercise program (including UE ROM, positioning) with support of family and caregivers utilizing provided written and visual instructions from therapist. 04/29/20 =25% met - Treatment 2 Descriptor E-stim. Facilitation of wrist/ digit extension. Intensity. 24 . Facilitation of elbow flexion. Intensity 23. Skin intact pre- and post- treatment. Patient actively engaged in modality. 1 Descriptor HEP/POC. Education provided re : GivMohr sling; reviewed recommendation for UE tone management prior to donning of GivMohr sling. Discussed use of visual marker(s) to support consistency with tension of straps. Reviewed recommendations for use of incline surface to support posture w/ TT tasks. Both patient and caregiver denied questions. Exercises 7 Descriptor Sh AROM. Scapular pinches. 1x10. Sh flexion. 1x10. Standing. TT . 6 Descriptor Sh ROM. Passive ER. 1 x 10. Passive sh ext. 1 x 10. Passive sh abd. Passive hor abd w/ ER. 1 x 10. 5 Descriptor Tone management. WB at TT modified w/ towel. 1x10. WB at TT at edge of table. 1x10. 4 Descriptor Neurofacilitation. Functional reach pattern of L UE TT. 2x10. TB #1. Scapular retraining. 1 x 10. 2 Descriptor Elbow UE ROM. Elbow ext. Seated. TB #4. 2x10 . Elbow flex. Seated. 2 x 10. Muscle tapping. - Assessment Assessment of Improvement Maximum assistance w/ donning and doffing GivMohr sling. Questions re: GivMohr sling; provided patient and caregiver education. Frustration re: sling expressed. Question arose re: w/c evaluation; deferred to patient's primary PT. Initiated use of TB #1 w/ functional reach exercise utilizing TT. Gap in treatment did occur. Will need to monitor carry-over and continued need for outpatient OT services. Recommend following-up w/ PT and patient /caregivers re: Kenzie sling. Continued outpatient OT is recommended for development of appropriate of UE HEP, functional problem solving, functional independence, weight shifting Home Exercise Program Please refer to treatment section of note for specific details. - Plan Therapy Recommendations Continue with Current Program, Advance per Rehabilitation Protocol
--- NOTE | 2020-07-04 15:30 | OT.OP.TRT ---
Visit Care Team Role Provider Type KINJAL Cooper Attending Provider Advanced Convention Services Director Primary Care Provider Referring Provider Specialty: Family Practice Address: [address] [place] [address], [facility] Email: [email or web address] Occupational Therapy Treatment Note OT Outpatient Treatment Note - Adult Start: 11/15/19 09:37 Freq: Status: Active Protocol: Document 07/04/20 15:30 AMS (Rec: 07/07/20 08:10 AMS [id number]) OT Outpatient Adult Treatment Note Session Time Visit Start Time 10:35 Visit Stop Time 11:20 Total Visit Minutes 45 Visit Information Plan of Care Dates 04/29/20-07/22/20 Insurance Information [facility] Medicare Advantage; KX at 20 visits Setting Treatment Setting Outpatient Care Visit Type Note Type Treatment Note General Information General Information Brittany is a 50 year-old right hand dominant female referred to outpatient OT by PCP, Amie Monique MD, secondary to L UE weakness, other symptoms and signs involving the musuloskeletal system, contracture of muscle of L upper arm. Patient reported that she suffered a stroke in 2014 after having surgery for brain aneurysm; Brittany stated that it occurred while she was residing in [place]. Brittany reportedly moved frequently since date of onset to present day. Brittany has prox L sh stabilization brace; she reports that she has to have brace or encounters pain half way through the day. She also has night splint that she says doesn't work/doesn't stay in her hand. She has several [employer] products to encourage muscle contraction of the UE (e-stim to facilitate elbow flex/ext); she has a mirror box; she receives dry needling 2 x per month. She is receiving outpatient PT. PMH: Significant for memory loss; neck pain; neuropathy; seizures; stroke; thyroid disorder; traumatic brain inj; vision problems. - Subjective Identification Type Name Identification Reconciled With Medical Record Observations Brittany was accompanied to OT treatment session w/ caregiver . We didn't have time to do the stretches this morning in order to get the sling on per Brittany. 05/05/20 2V L XR Hip Findings: Question faint calcification versus tiny avulsion off the greater trochanter of the left hip. Patient/Caregiver Compliance with Home Fair Exercise Program - Objective Objective Measurements Please refer to below for progress towards meeting established goals. Short Term Goals 1. 0-90 degrees active L elbow flexion. 04/29/20= 25% met; 0-60 degrees elbow flex 2. 0-45 degrees active L shoulder extension. 04/29/20 = 25% met; 0-30 degrees sh ext GOALS MET 0-15 degrees active L elbow flexion. 03/11/20 = 0-50 Intermediate Goals 1. Brittany will be modified independent with execution of upper extremity home exercise program (including UE ROM, positioning) with support of family and caregivers utilizing provided written and visual instructions from therapist. 04/29/20 =25% met - Treatment 1 Descriptor HEP/POC. Reviewed UE home exercise program; denied recent use of home e-stim unit for UE. Reported holding onto bar when doing PT exercises. Exercises 7 Descriptor Sh AROM. Scapular pinches. 1x10. Sh flexion. 1x10. Seated. Sh extension. 1x10. Standing. 6 Descriptor Sh ROM. Passive ER. 1 x 10. Passive sh abd. Passive hor abd w/ ER. 1 x 10. 5 Descriptor Tone management. WB at TT modified w/ towel. 1x10. WB at TT at edge of table. 1x10. 4 Descriptor Neurofacilitation. Functional reach pattern of L UE TT. 2x10. TB #1. Scapular retraining. 1 x 10. 2 Descriptor Elbow UE ROM. Elbow ext. Seated. TB #4. 2x10 . Elbow flex. Seated. 2 x 10. Muscle tapping. - Assessment Assessment of Improvement Recent inconsistency w/ use of home e-stim unit; (-) use of GivMohr on this date d/t time constraints per patient. Patient was also observed to not be wearing GivMohr sling previous treatment session w/ PT this week. No additional concerns were expressed re: GivMohr sling on this treatment date. Will need to monitor carry-over and continued need for outpatient OT services. Recommend following-up w/ PT and patient /caregivers re: GivMohr sling. Continued outpatient OT is recommended for development of appropriate of UE HEP, functional problem solving, functional independence, weight shifting Home Exercise Program Please refer to treatment section of note for specific details. - Plan Therapy Recommendations Continue with Current Program, Advance per Rehabilitation Protocol
--- NOTE | 2020-07-11 14:01 | OT.OP.TRT ---
Visit Care Team Role Provider Type KINJAL Cooper Attending Provider Advanced Manager Medical Writing Primary Care Provider Referring Provider Specialty: Family Practice Address: [address] [place] [address], [facility] Email: [email or web address] Occupational Therapy Treatment Note OT Outpatient Treatment Note - Adult Start: 11/15/19 09:37 Freq: Status: Active Protocol: Document 07/11/20 13:53 AMS (Rec: 07/11/20 14:01 AMS [id number]) OT Outpatient Adult Treatment Note Session Time Visit Start Time 10:30 Visit Stop Time 11:15 Total Visit Minutes 45 Visit Information Plan of Care Dates 04/29/20-07/22/20 Insurance Information [facility] Medicare Advantage; KX at 20 visits Setting Treatment Setting Outpatient Care Visit Type Note Type Treatment Note General Information General Information Brittany is a 50 year-old right hand dominant female referred to outpatient OT by PCP, Amie Monique MD, secondary to L UE weakness, other symptoms and signs involving the musuloskeletal system, contracture of muscle of L upper arm. Patient reported that she suffered a stroke in 2014 after having surgery for brain aneurysm; Brittany stated that it occurred while she was residing in [place]. Brittany reportedly moved frequently since date of onset to present day. Brittany has prox L sh stabilization brace; she reports that she has to have brace or encounters pain half way through the day. She also has night splint that she says doesn't work/doesn't stay in her hand. She has several [employer] products to encourage muscle contraction of the UE (e-stim to facilitate elbow flex/ext); she has a mirror box; she receives dry needling 2 x per month. She is receiving outpatient PT. PMH: Significant for memory loss; neck pain; neuropathy; seizures; stroke; thyroid disorder; traumatic brain inj; vision problems. - Subjective Identification Type Name Identification Reconciled With Medical Record Observations She still thinks the elbow strap is wrong. Yes, I can tell my mom how to help me put the sling on per Brittany. My neurologist is taking me off quite a few of my medications per Brittany. 05/05/20 2V L XR Hip Findings: Question faint calcification versus tiny avulsion off the greater trochanter of the left hip. Patient/Caregiver Compliance with Home Fair Exercise Program - Objective Objective Measurements Please refer to below for progress towards meeting established goals. Short Term Goals 1. 0-90 degrees active L elbow flexion. 04/29/20= 25% met; 0-60 degrees elbow flex 2. 0-45 degrees active L shoulder extension. 04/29/20 = 25% met; 0-30 degrees sh ext GOALS MET 0-15 degrees active L elbow flexion. 03/11/20 = 0-50 Insurance Claims Specialist Goals 1. Brittany will be modified independent with execution of upper extremity home exercise program (including UE ROM, positioning) with support of family and caregivers utilizing provided written and visual instructions from therapist. 04/29/20 =25% met - Treatment 1 Descriptor HEP/POC. Discussed sling with patient and LOGISTICS INTERN; Brittany reported that she could train her Mother to help her with donning GivMohr sling if needed. Brittany reported ' liking' the GivMohr sling. She acknowledged the need for time to complete tone management/use e-stim unit prior to donning sling. Exercises 7 Descriptor Sh AROM. Scapular pinches. 1x10. Sh flexion. 1x10. Seated. Sh extension. 1x10. Standing. 6 Descriptor Sh ROM. Passive ER. 1 x 10. Passive sh abd. Passive hor abd w/ ER. 1 x 10. 5 Descriptor Tone management. WB at TT modified w/ towel. 1x10. WB at TT at edge of table. 1x10. 4 Descriptor Neurofacilitation. Functional reach pattern of L UE TT. 2x10. TB #2. Scapular retraining. 1 x 10. 2 Descriptor Elbow UE ROM. Elbow ext. Seated. TB #4. 2x10 . Elbow flex. Seated. 2 x 10. Muscle tapping. - Assessment Assessment of Improvement Brittany reported that yariel is coming to her home this date for scooter evaluation. Discussed factors that are influencing compliance w/ wearing of GivMohr sling and available supports. Upgraded resistance with functional reach pattern utilizing TT to TB #2. Initiated additional TT exercises with use of towel to reduce friction/resistance between arm/hand and table surface. Will need to determine if progress is still being made relative to ROM. Continued outpatient OT is recommended for development of appropriate of UE HEP, functional problem solving, functional independence, weight shifting Home Exercise Program Please refer to treatment section of note for specific details. - Plan Therapy Recommendations Continue with Current Program, Advance per Rehabilitation Protocol
--- NOTE | 2020-07-18 11:47 | OT.OPPN ---
Current Diagnoses Contracture of muscle, left upper arm (07/18/20) Other symptoms and signs involving the musculoskeletal system (07/18/20) OT Progress Note OT Outpatient Treatment Note - Adult Start: 11/15/19 09:37 Freq: Status: Active Protocol: Document 07/18/20 10:48 AMS (Rec: 07/18/20 11:45 AMS [id number]) OT Outpatient Adult Treatment Note Session Time Visit Start Time 10:30 Visit Stop Time 11:15 Total Visit Minutes 45 Visit Information Plan of Care Dates 07/18/20-10/10/20 Insurance Information [facility] Medicare Advantage; KX at 20 visits Setting Treatment Setting Outpatient Care Visit Type Note Type Progress Note General Information General Information Brittany is a 50 year-old right hand dominant female referred to outpatient OT by PCP, Amie Monique MD, secondary to L UE weakness, other symptoms and signs involving the musuloskeletal system, contracture of muscle of L upper arm. Patient reported that she suffered a stroke in 2014 after having surgery for brain aneurysm; Brittany stated that it occurred while she was residing in [place]. Brittany reportedly moved frequently since date of onset to present day. Brittany has prox L sh stabilization brace; she reports that she has to have brace or encounters pain half way through the day. She also has night splint that she says doesn't work/doesn't stay in her hand. She has several Saebo products to encourage muscle contraction of the UE (e-stim to facilitate elbow flex/ext); she has a mirror box; she receives dry needling 2 x per month. She is receiving outpatient PT. PMH: Significant for memory loss; neck pain; neuropathy; seizures; stroke; thyroid disorder; traumatic brain inj; vision problems. - Subjective Identification Type Name Identification Reconciled With Medical Record Observations I had to re-schedule the w/c evaluation from today at 3:00 until next week right after my OT appointment. I am getting my first COVID shot in [place] today. 05/05/20 2V L XR Hip Findings: Question faint calcification versus tiny avulsion off the greater trochanter of the left hip. Patient/Caregiver Compliance with Home Fair Exercise Program - Objective Objective Measurements Please refer to below for progress towards meeting established goals. Short Term Goals 1. 0-90 degrees active L elbow flexion. 07/18/20= 75% met; 0-80 degrees elbow flex 2. 0-45 degrees active L shoulder extension. 07/18/20 = 50% met; 0-30 degrees sh ext GOALS MET 0-15 degrees active L elbow flexion. 03/11/20 = 0-50 Skilled Nursing Goals 1. Brittany will be modified independent with execution of upper extremity home exercise program (including UE ROM, positioning) with support of family and caregivers utilizing provided written and visual instructions from therapist. 07/19/19 =25% met - Treatment 1 Descriptor HEP/POC. Re-adjusted GivMohr sling fit to patient; will need to follow-up re: fit. Exercises 7 Descriptor Sh AROM. Scapular pinches. 1x10. Sh flexion. 1x10. Seated. Sh extension. 1x10. Standing. 6 Descriptor Sh ROM. Passive ER. 1 x 10. Passive sh abd. Passive hor abd w/ ER. 1 x 10. 5 Descriptor Tone management. WB at TT modified w/ towel. 1x10. WB at TT at edge of table. 1x10. 4 Descriptor Neurofacilitation. Functional reach pattern of L UE TT. 2x10. TB #2. Scapular retraining. 1 x 10. 3 Descriptor Sh strengthening. Sh abd. 2x10. 1# DB. Sh flex. 2x10. 1# DB. 2 Descriptor Elbow UE ROM. Elbow ext. Seated. TB #4. 2x10 . Elbow flex. Seated. 3x10. 1# DB. Muscle tapping. - Assessment Assessment of Improvement Brittany is getting first COVID shot today; she reported that w/c evaluation was scheduled for today but that she had it rescheduled to next Tuesday following OT appointment. Brittany presented to treatment session w/ GivMohr sling straps twisted x 2 w/ poor fit ; re-adjusted GivMohr fit and marked w/ chalk lines. Recommend repeating with contra colored marker to support carry-over. Brittany has demonstrated improved elbow flexion over certification period and has reported functional ability to maintain grasp with R hand to support LB dressing post toileting. Therapist has been able to advance some UE strengthening exercises. Thus, some progress has been made including identification of alternative R UE sling. Continued outpatient OT is recommended for development of appropriate of UE HEP, functional problem solving, functional independence, weight shifting Home Exercise Program Please refer to treatment section of note for specific details. - Plan Therapy Recommendations Continue with Current Program, Advance per Rehabilitation Protocol Comment 12 weeks Frequency of Treatment Once a Week Comment 1-2 times per week Therapeutic Contents Active Range of Motion, Adaptive Equipment Education, Client Education,Cognitive Skills Development,Functional Activities,Home Exercise Program,Joint Protection, Manual Therapy,Education, Neurodevelopment Treatment, Neuromuscular Re-Education, Self-Care,Stretching/ Flexibility Activities, Therapeutic Activities, Therapeutic Exercises, Modalities Types of Modalities E-Stim,Ultrasound Additional Types of Modalities heat/ice
--- NOTE | 2020-07-25 15:30 | OT.OP.TRT ---
Visit Care Team Role Provider Type KINJAL Cooper Attending Provider Advanced Cloth Dyer Primary Care Provider Referring Provider Specialty: Family Practice Address: [address] [place] [address], [facility] Email: [email or web address] Occupational Therapy Treatment Note OT Outpatient Treatment Note - Adult Start: 11/15/19 09:37 Freq: Status: Active Protocol: Document 07/25/20 15:30 AMS (Rec: 07/28/20 11:58 AMS [id number]) OT Outpatient Adult Treatment Note Session Time Visit Start Time 10:30 Visit Stop Time 11:15 Total Visit Minutes 45 Visit Information Plan of Care Dates 07/18/20-10/10/20 Insurance Information [facility] Medicare Advantage; KX at 20 visits Setting Treatment Setting Outpatient Care Visit Type Note Type Progress Note General Information General Information Brittany is a 50 year-old right hand dominant female referred to outpatient OT by PCP, Amie Monique MD, secondary to L UE weakness, other symptoms and signs involving the musuloskeletal system, contracture of muscle of L upper arm. Patient reported that she suffered a stroke in 2014 after having surgery for brain aneurysm; Brittany stated that it occurred while she was residing in [place]. Brittany reportedly moved frequently since date of onset to present day. Brittany has prox L sh stabilization brace; she reports that she has to have brace or encounters pain half way through the day. She also has night splint that she says doesn't work/doesn't stay in her hand. She has several Saebo products to encourage muscle contraction of the UE (e-stim to facilitate elbow flex/ext); she has a mirror box; she receives dry needling 2 x per month. She is receiving outpatient PT. PMH: Significant for memory loss; neck pain; neuropathy; seizures; stroke; thyroid disorder; traumatic brain inj; vision problems. - Subjective Identification Type Name Identification Reconciled With Medical Record Observations I have the wheelchair evaluation after this per Brittany. 05/05/20 2V L XR Hip Findings: Question faint calcification versus tiny avulsion off the greater trochanter of the left hip. Patient/Caregiver Compliance with Home Fair Exercise Program - Objective Objective Measurements Please refer to below for progress towards meeting established goals. Short Term Goals 1. 0-90 degrees active L elbow flexion. 07/18/20= 75% met; 0-80 degrees elbow flex 2. 0-45 degrees active L shoulder extension. 07/18/20 = 50% met; 0-30 degrees sh ext GOALS MET 0-15 degrees active L elbow flexion. 03/11/20 = 0-50 [facility] Goals 1Barry Soto will be modified independent with execution of upper extremity home exercise program (including UE ROM, positioning) with support of family and caregivers utilizing provided written and visual instructions from therapist. 07/19/19 =25% met - Treatment 1 Descriptor HEP/POC. Marked GivMohr sling to assist w/ maintaining fit of sling. Will need to follow- up. Exercises 7 Descriptor Sh AROM. Scapular pinches. 1x10. Sh flexion. 1x10. Seated. Sh extension. 1x10. Standing. 6 Descriptor Sh ROM. Passive ER. 1 x 10. Passive sh abd. Passive hor abd w/ ER. 1 x 10. 5 Descriptor Tone management. WB at TT modified w/ towel. 1x10. WB at TT at edge of table. 1x10. 4 Descriptor Neurofacilitation. Functional reach pattern of L UE TT. 2x10. TB #2. Scapular retraining. 1 x 10. 3 Descriptor Sh strengthening. Sh abd. 2x10. 1# DB. Sh flex. 2x10. 1# DB. 2 Descriptor Elbow UE ROM. Elbow ext. Seated. TB #4. 2x10 . Elbow flex. Seated. 3x10. 1# DB. Muscle tapping. - Assessment Assessment of Improvement Adjusted fit of sling during today's treatment session based on patient feedback; attempted to make mcdaniels on straps as directed by patient w/ silver permanent marker. Will need to follow-up w/ patientBarry Soto had w/c evaluation directly following this outpatient OT appointment . Increase resistance as able/ tolerated; consider increasing number of repetitions with dumbbell as an alternative. Continued outpatient OT is recommended for development of appropriate of UE HEP, functional problem solving, functional independence, weight shifting Home Exercise Program Please refer to treatment section of note for specific details. - Plan Therapy Recommendations Continue with Current Program, Advance per Rehabilitation Protocol
--- NOTE | 2020-07-30 15:41 | OT.OP.TRT ---
Visit Care Team Role Provider Type KINJAL Cooper Attending Provider Advanced Collections Curator Primary Care Provider Referring Provider Specialty: Family Practice Address: [address] [place] [address], [facility] Email: [email or web address] Occupational Therapy Treatment Note OT Outpatient Treatment Note - Adult Start: 11/15/19 09:37 Freq: Status: Active Protocol: Document 07/30/20 15:32 AMS (Rec: 07/30/20 15:41 AMS [id number]) OT Outpatient Adult Treatment Note Session Time Visit Start Time 13:30 Visit Stop Time 14:15 Total Visit Minutes 45 Visit Information Plan of Care Dates 07/18/20-10/10/20 Insurance Information [facility] Medicare Advantage; KX at 20 visits Setting Treatment Setting Outpatient Care Visit Type Note Type Treatment Note General Information General Information Brittany is a 50 year-old right hand dominant female referred to outpatient OT by PCP, Amie Monique MD, secondary to L UE weakness, other symptoms and signs involving the musuloskeletal system, contracture of muscle of L upper arm. Patient reported that she suffered a stroke in 2014 after having surgery for brain aneurysm; Brittany stated that it occurred while she was residing in [place]. Brittany reportedly moved frequently since date of onset to present day. Brittany has prox L sh stabilization brace; she reports that she has to have brace or encounters pain half way through the day. She also has night splint that she says doesn't work/doesn't stay in her hand. She has several [employer] products to encourage muscle contraction of the UE (e-stim to facilitate elbow flex/ext); she has a mirror box; she receives dry needling 2 x per month. She is receiving outpatient PT. PMH: Significant for memory loss; neck pain; neuropathy; seizures; stroke; thyroid disorder; traumatic brain inj; vision problems. - Subjective Identification Type Name Identification Reconciled With Medical Record Observations I have a telehealth appointment tomorrow with my doctor per Brittany. They took me off all of my antidepressants per Brittany. I think it was too much. 05/05/20 2V L XR Hip Findings: Question faint calcification versus tiny avulsion off the greater trochanter of the left hip. Patient/Caregiver Compliance with Home Fair Exercise Program - Objective Objective Measurements Please refer to below for progress towards meeting established goals. Short Term Goals 1. 0-90 degrees active L elbow flexion. 07/18/20= 75% met; 0-80 degrees elbow flex 2. 0-45 degrees active L shoulder extension. 07/18/20 = 50% met; 0-30 degrees sh ext GOALS MET 0-15 degrees active L elbow flexion. 03/11/20 = 0-50 Head Automatic Sawyer Goals 1. Brittany will be modified independent with execution of upper extremity home exercise program (including UE ROM, positioning) with support of family and caregivers utilizing provided written and visual instructions from therapist. 07/19/19 =25% met - Treatment 1 Descriptor HEP/POC. Assistance needed during PT appointment given sling is reportedly frequently falling off of L shoulder; patient did not bring GivMohr sling to OT appointment. Thus, unable to attempt modification, addition of strap to maintain sling on shoulder. Exercises 7 Descriptor Sh AROM. Scapular pinches. 1x10. Sh flexion. 1x10. Seated. Sh extension. 1x10. Standing. 6 Descriptor Sh ROM. Passive ER. 1 x 10. Passive sh abd. Passive hor abd w/ ER. 1 x 10. 5 Descriptor Tone management. WB at TT modified w/ towel. 1x10. WB at TT at edge of table. 1x10. 4 Descriptor Neurofacilitation. Functional reach pattern of L UE TT. 2x10. TB #2. Scapular retraining. 1 x 10. 3 Descriptor Sh strengthening. Sh abd. 2x10. 1# DB. Sh flex. 2x10. 1# DB. 2 Descriptor Elbow UE ROM. Elbow ext. Seated. TB #4. 2x10 . Elbow flex. Seated. 3x10. 1# DB. Muscle tapping. - Assessment Assessment of Improvement Brittany reported that she did not qualify for a scooter at time of the w/c evaluation; concerns were verbalized re: complete removal of antidepressants. Patient has telehealth appt 07/31/20 w/ PCP . Recommended that this info be conveyed to her PCP at time of this appointment. Decreased tolerance w/ c/o fatigue. Attempted replication of figure 8 in modified format based on patient feedback w/ use of TT and towel and breakdown of motor pattern. Continued outpatient OT is recommended for development of appropriate of UE HEP, functional problem solving, functional independence, weight shifting Home Exercise Program Please refer to treatment section of note for specific details. - Plan Therapy Recommendations Continue with Current Program, Advance per Rehabilitation Protocol
--- NOTE | 2020-08-29 13:28 | OT.OP.TRT ---
Visit Care Team Role Provider Type KINJAL Cooper Attending Provider Advanced Chimney Builder Helper Primary Care Provider Referring Provider Specialty: Family Practice Address: [address] [place] [address], [facility] Email: [email or web address] Occupational Therapy Treatment Note OT Outpatient Treatment Note - Adult Start: 11/15/19 09:37 Freq: Status: Active Protocol: Document 08/29/20 13:24 AMS (Rec: 08/29/20 13:28 AMS [id number]) OT Outpatient Adult Treatment Note Session Time Visit Start Time 10:30 Visit Stop Time 11:15 Total Visit Minutes 45 Visit Information Plan of Care Dates 07/18/20-10/10/20 Insurance Information [facility] Medicare Advantage; KX at 20 visits Setting Treatment Setting Outpatient Care Visit Type Note Type Treatment Note General Information General Information Brittany is a 50 year-old right hand dominant female referred to outpatient OT by PCP, Amie Monique MD, secondary to L UE weakness, other symptoms and signs involving the musuloskeletal system, contracture of muscle of L upper arm. Patient reported that she suffered a stroke in 2014 after having surgery for brain aneurysm; Brittany stated that it occurred while she was residing in [place]. Brittany reportedly moved frequently since date of onset to present day. Brittany has prox L sh stabilization brace; she reports that she has to have brace or encounters pain half way through the day. She also has night splint that she says doesn't work/doesn't stay in her hand. She has several [employer] products to encourage muscle contraction of the UE (e-stim to facilitate elbow flex/ext); she has a mirror box; she receives dry needling 2 x per month. She is receiving outpatient PT. PMH: Significant for memory loss; neck pain; neuropathy; seizures; stroke; thyroid disorder; traumatic brain inj; vision problems. - Subjective Identification Type Name Identification Reconciled With Medical Record Observations I have been using the old sling. It seems to be the easiest to manage with assistance per Brittany. 05/05/20 2V L XR Hip Findings: Question faint calcification versus tiny avulsion off the greater trochanter of the left hip. Patient/Caregiver Compliance with Home Fair Exercise Program - Objective Objective Measurements Please refer to below for progress towards meeting established goals. Short Term Goals 1. 0-90 degrees active L elbow flexion. 07/18/20= 75% met; 0-80 degrees elbow flex 2. 0-45 degrees active L shoulder extension. 07/18/20 = 50% met; 0-30 degrees sh ext GOALS MET 0-15 degrees active L elbow flexion. 03/11/20 = 0-50 Minister Goals 1. Brittany will be modified independent with execution of upper extremity home exercise program (including UE ROM, positioning) with support of family and caregivers utilizing provided written and visual instructions from therapist. 07/19/19 =25% met - Treatment 1 Descriptor HEP/POC. Provided large strap for GivMohr sling to discourage sling from sliding off of L shoulder (one of the primary complaints of patient re: sling use). Will need to follow-up. Exercises 7 Descriptor Sh AROM. Scapular pinches. 1x10. Sh flexion. 1x10. Seated. Sh extension. 1x10. Standing. 6 Descriptor Sh ROM. Passive ER. 1 x 10. Passive sh abd. Passive hor abd w/ ER. 1 x 10. 5 Descriptor Tone management. WB at TT modified w/ towel. 1x10. WB at TT at edge of table. 1x10. 4 Descriptor Neurofacilitation. Functional reach pattern of L UE TT. 2x10. TB #2. Scapular retraining. 1 x 10. 3 Descriptor Sh strengthening. Sh abd. 3x10. 1# DB. Sh flex. 3x10. 1# DB. Sh ext. 3x10. 1#DB. 2 Descriptor Elbow UE ROM. Elbow flex. Seated. 3x10. 1# DB. Muscle tapping. - Assessment Assessment of Improvement Gap in treatment occurred. Attempted to modify GivMohr sling w/ provision of large strap w/ velcro hook and loop points of attachment. Will need to follow-up. Decreased compliance w/ carry-over of exercises; needs support for execution of UE strengthening exercises. Increased number of sets/reps with light weight; initiated modified sh ext strengthening seated. Will need to monitor compliance and carry-over of recommendations . Continued outpatient OT is recommended for development of appropriate of UE HEP, functional problem solving, functional independence, weight shifting Home Exercise Program Please refer to treatment section of note for specific details. - Plan Therapy Recommendations Continue with Current Program, Advance per Rehabilitation Protocol
--- NOTE | 2020-09-05 13:20 | OT.OP.TRT ---
Visit Care Team Role Provider Type KINJAL Cooper Attending Provider Advanced Compensation Vice President Primary Care Provider Referring Provider Specialty: Family Practice Address: [address] [place] [address], [facility] Email: [email or web address] Occupational Therapy Treatment Note OT Outpatient Treatment Note - Adult Start: 11/15/19 09:37 Freq: Status: Active Protocol: Document 09/05/20 13:09 AMS (Rec: 09/05/20 13:20 AMS [id number]) OT Outpatient Adult Treatment Note Session Time Visit Start Time 10:30 Visit Stop Time 11:25 Total Visit Minutes 55 Visit Information Plan of Care Dates 07/18/20-10/10/20 Insurance Information [facility] Medicare Advantage; KX at 20 visits Setting Treatment Setting Outpatient Care Visit Type Note Type Treatment Note General Information General Information Brittany is a 50 year-old right hand dominant female referred to outpatient OT by PCP, Amie Monique MD, secondary to L UE weakness, other symptoms and signs involving the musuloskeletal system, contracture of muscle of L upper arm. Patient reported that she suffered a stroke in 2014 after having surgery for brain aneurysm; Brittany stated that it occurred while she was residing in [place]. Brittany reportedly moved frequently since date of onset to present day. Brittany has prox L sh stabilization brace; she reports that she has to have brace or encounters pain half way through the day. She also has night splint that she says doesn't work/doesn't stay in her hand. She has several Saeb[employer] products to encourage muscle contraction of the UE (e-stim to facilitate elbow flex/ext); she has a mirror box; she receives dry needling 2 x per month. She is receiving outpatient PT. PMH: Significant for memory loss; neck pain; neuropathy; seizures; stroke; thyroid disorder; traumatic brain inj; vision problems. - Subjective Identification Type Name Identification Reconciled With Medical Record Observations I have been using the old sling. It seems to be the easiest to manage. Renetta gave me something for where it was bothering my thumb. It seems to rub in this arm pit too per Brittany re: R arm pit. They are looking for a new caregiver for me. Lena is no longer working with me. She gave me a wedge so that I wouldn't hyperextend my knee as much. 05/05/20 2V L XR Hip Findings: Question faint calcification versus tiny avulsion off the greater trochanter of the left hip. Patient/Caregiver Compliance with Home Fair Exercise Program - Objective Objective Measurements Please refer to below for progress towards meeting established goals. Short Term Goals 1. 0-90 degrees active L elbow flexion. 07/18/20= 75% met; 0-80 degrees elbow flex 2. 0-45 degrees active L shoulder extension. 07/18/20 = 50% met; 0-30 degrees sh ext GOALS MET 0-15 degrees active L elbow flexion. 03/11/20 = 0-50 Custodial Goals 1. Brittany will be modified independent with execution of upper extremity home exercise program (including UE ROM, positioning) with support of family and caregivers utilizing provided written and visual instructions from therapist. 09/06/19 =25% met - Treatment 1 Descriptor HEP/POC. Reviewed frontal strap placement to discourage GivMohr sling sliding off of right shoulder. Repositioned left shoulder strap to discourage irritating rubbing in the left arm pit. Recommend considering padding to this component at next treatment session. Exercises 7 Descriptor Sh AROM. Scapular pinches. 1x10. Sh flexion. 1x10. Seated. Sh extension. 1x10. Standing. 6 Descriptor Sh ROM. Passive ER. 1 x 10. Passive sh abd. Passive hor abd w/ ER. 1 x 10. 5 Descriptor Tone management. WB at TT modified w/ towel. 1x10. WB at TT at edge of table. 1x10. 4 Descriptor Neurofacilitation. Functional reach pattern of L UE TT. 2x10. TB #2. Scapular retraining. 1 x 10. 3 Descriptor Sh strengthening. Sh abd. 3x10. 1# DB. Sh flex. 3x10. 1# DB. Sh ext. 3x10. 1#DB. Sh add. Sh ext (sh flex pulldown to side). 2x10 each. Seated. TB #2. 2 Descriptor Elbow/Wrist strengthening. Elbow flex. Seated. 3x10. 2# DB. Muscle tapping. Wrist ext. Seated. 3x10. 2# DB . Muscle tapping. Wrist RD. Seated. 3x10. 2# DB. Muscle tapping. - Assessment Assessment of Improvement Change in caregiver assistance . Reported inconsistent use of home e-stim until. Completing retraction exercises at mirror and weight bearing as able. Incorporating UE with functional clothing management with toileting. Attempt to execute ROM exercises w/ positioning of UE to left of body via various approaches based on patient report. Inability to recall positioning of front strap to maintain sling on shoulder w/ transitional movements/ participation in tasks. Irritation complaints in L armpit with GivMohr sling. Will need to follow-up next session. Concern re: wedge in shoe positioning; recommended follow-up w/ PT. Introduced new ther ex; continued need to facilitate via muscle tapping to support motor contration. Decreased motor planning. Decreased tone management; tightness of digits into flexor pattern. Continued outpatient OT is recommended for development of appropriate of UE HEP, functional problem solving, functional independence, weight shifting Home Exercise Program Please refer to treatment section of note for specific details. - Plan Therapy Recommendations Continue with Current Program, Advance per Rehabilitation Protocol
--- NOTE | 2020-09-08 14:10 | OT.OP.TRT ---
Visit Care Team Role Provider Type KINJAL Cooper Attending Provider Advanced Chief Privacy Officer Primary Care Provider Referring Provider Specialty: Family Practice Address: [address] [place] [address], [facility] Email: [email or web address] Occupational Therapy Treatment Note OT Outpatient Treatment Note - Adult Start: 11/15/19 09:37 Freq: Status: Active Protocol: Document 09/08/20 14:05 AMS (Rec: 09/08/20 14:09 AMS [id number]) OT Outpatient Adult Treatment Note Session Time Visit Start Time 10:30 Visit Stop Time 11:25 Total Visit Minutes 55 Visit Information Plan of Care Dates 07/18/20-10/10/20 Insurance Information [facility] Medicare Advantage; KX at 20 visits Setting Treatment Setting Outpatient Care Visit Type Note Type Treatment Note General Information General Information Brittany is a 50 year-old right hand dominant female referred to outpatient OT by PCP, Amie Monique MD, secondary to L UE weakness, other symptoms and signs involving the musuloskeletal system, contracture of muscle of L upper arm. Patient reported that she suffered a stroke in 2014 after having surgery for brain aneurysm; Brittany stated that it occurred while she was residing in [place]. Brittany reportedly moved frequently since date of onset to present day. Brittany has prox L sh stabilization brace; she reports that she has to have brace or encounters pain half way through the day. She also has night splint that she says doesn't work/doesn't stay in her hand. She has several Saebo products to encourage muscle contraction of the UE (e-stim to facilitate elbow flex/ext); she has a mirror box; she receives dry needling 2 x per month. She is receiving outpatient PT. PMH: Significant for memory loss; neck pain; neuropathy; seizures; stroke; thyroid disorder; traumatic brain inj; vision problems. - Subjective Identification Type Name Identification Reconciled With Medical Record Observations Brittany denied any new concerns. 05/05/20 2V L XR Hip Findings: Question faint calcification versus tiny avulsion off the greater trochanter of the left hip. Patient/Caregiver Compliance with Home Fair Exercise Program - Objective Objective Measurements Please refer to below for progress towards meeting established goals. Short Term Goals 1. 0-90 degrees active L elbow flexion. 07/18/20= 75% met; 0-80 degrees elbow flex 2. 0-45 degrees active L shoulder extension. 07/18/20 = 50% met; 0-30 degrees sh ext GOALS MET 0-15 degrees active L elbow flexion. 03/11/20 = 0-50 Community Health Director Goals 1. Brittany will be modified independent with execution of upper extremity home exercise program (including UE ROM, positioning) with support of family and caregivers utilizing provided written and visual instructions from therapist. 09/09/19 =25% met - Treatment 1 Descriptor HEP/POC. Preference for older version of L shoulder sling. Brittany reports difficulty completing exercises at home for arm without assistance. Currently in process of looking for new caregiver. Brittany's Mother provided transportation to and from treatment session. Exercises 7 Descriptor Sh AROM. Scapular pinches. 1x10. Sh flexion. 1x10. Seated. Sh extension. 1x10. Standing. 6 Descriptor Sh ROM. Passive ER. 1 x 10. Passive sh abd. Passive hor abd w/ ER. 1 x 10. 5 Descriptor Tone management. WB at TT modified w/ towel. 1x10. WB at TT at edge of table. 1x10. 4 Descriptor Neurofacilitation. Functional reach pattern of L UE TT. 2x10. TB #2. Scapular retraining. 1 x 10. 3 Descriptor Sh strengthening. Sh abd. 3x10. 1# DB. Sh flex. 3x10. 1# DB. Sh ext. 3x10. 1#DB. Sh add. Sh ext (sh flex pulldown to side). 2x10 each. Seated. TB #2. 2 Descriptor Elbow/Wrist strengthening. Elbow flex. Seated. 3x10. 2# DB. Muscle tapping. Wrist ext. Seated. 3x10. 2# DB . Muscle tapping. Wrist RD. Seated. 3x10. 2# DB. Muscle tapping. - Assessment Assessment of Improvement Decreased motor planning. Decreased tone management; tightness of digits into flexor pattern. Decreased functional abilities of the L upper extremity; is actively incorporating L UE with clothing management w/ toileting successfully per self-report. Preference for ' older' version of L sh sling. Continued outpatient OT is recommended for development of appropriate of UE HEP, functional problem solving, functional independence, weight shifting Home Exercise Program Please refer to treatment section of note for specific details. - Plan Therapy Recommendations Continue with Current Program, Advance per Rehabilitation Protocol
--- NOTE | 2020-09-19 11:48 | OT.OP.TRT ---
Visit Care Team Role Provider Type KINJAL Cooper Attending Provider Advanced Household Personal Assistant Primary Care Provider Referring Provider Specialty: Family Practice Address: [address] [place] [address], [facility] Email: [email or web address] Occupational Therapy Treatment Note OT Outpatient Treatment Note - Adult Start: 11/15/19 09:37 Freq: Status: Active Protocol: Document 09/19/20 11:40 AMS (Rec: 09/19/20 11:48 AMS [id number]) OT Outpatient Adult Treatment Note Session Time Visit Start Time 10:30 Visit Stop Time 11:30 Total Visit Minutes 60 Visit Information Plan of Care Dates 07/18/20-10/10/20 Insurance Information [facility] Medicare Advantage; KX at 20 visits Setting Treatment Setting Outpatient Care Visit Type Note Type Treatment Note General Information General Information Brittany is a 50 year-old right hand dominant female referred to outpatient OT by PCP, Amie Monique MD, secondary to L UE weakness, other symptoms and signs involving the musuloskeletal system, contracture of muscle of L upper arm. Patient reported that she suffered a stroke in 2014 after having surgery for brain aneurysm; Brittany stated that it occurred while she was residing in [place]. Brittany reportedly moved frequently since date of onset to present day. Brittany has prox L sh stabilization brace; she reports that she has to have brace or encounters pain half way through the day. She also has night splint that she says doesn't work/doesn't stay in her hand. She has several [employer] products to encourage muscle contraction of the UE (e-stim to facilitate elbow flex/ext); she has a mirror box; she receives dry needling 2 x per month. She is receiving outpatient PT. PMH: Significant for memory loss; neck pain; neuropathy; seizures; stroke; thyroid disorder; traumatic brain inj; vision problems. - Subjective Identification Type Name Identification Reconciled With Medical Record Observations Brittany reported that they are still looking for a new caregiver for her and that ' her mom' has had to start doing a lot more. 05/05/20 2V L XR Hip Findings: Question faint calcification versus tiny avulsion off the greater trochanter of the left hip. Patient/Caregiver Compliance with Home Fair Exercise Program - Objective Objective Measurements Please refer to below for progress towards meeting established goals. Short Term Goals 1. 0-90 degrees active L elbow flexion. 07/18/20= 75% met; 0-80 degrees elbow flex 2. 0-45 degrees active L shoulder extension. 07/18/20 = 50% met; 0-30 degrees sh ext GOALS MET 0-15 degrees active L elbow flexion. 03/11/20 = 0-50 Mcc Goals 1. Brittany will be modified independent with execution of upper extremity home exercise program (including UE ROM, positioning) with support of family and caregivers utilizing provided written and visual instructions from therapist. 09/20/19 =25% met - Treatment 1 Descriptor HEP/POC. Discussed utilizing larger width tools w/ right hand and/or altering grasp pattern to determine if symptoms may reduce in presentation. Brittany has not yet been given another caregiver; thus, it has been difficult for her to complete exercises. Exercises 7 Descriptor Sh AROM. Scapular pinches. 1x10. Sh flexion. 1x10. Seated. Sh extension. 1x10. Standing. 6 Descriptor Sh ROM. Passive ER. 1 x 10. Passive sh abd. Passive hor abd w/ ER. 1 x 10. 5 Descriptor Tone management. WB at TT modified w/ towel. 1x10. WB at TT at edge of table. 1x10. 4 Descriptor Neurofacilitation. Functional reach pattern of L UE TT. 2x10. TB #2. Scapular retraining. 1 x 10. 3 Descriptor Sh strengthening. Sh abd. 3x10. 1# DB. Sh flex. 3x10. 1# DB. Sh ext. 3x10. 1#DB. Sh add. Sh ext (sh flex pulldown to side). 2x10 each. Seated. TB #2. 2 Descriptor Elbow/Wrist strengthening. Elbow flex. Seated. 3x10. 2# DB. Muscle tapping. Wrist ext. Seated. 3x10. 2# DB . Muscle tapping. Wrist RD. Seated. 3x10. 2# DB. Muscle tapping. 1 Descriptor Irish e-stim. x 10 minutes. Skin intact pre- and post- treatment. Facilitation of wrist/digit extension. L UE. 10/10 cycle. Intensity 16. - Assessment Assessment of Improvement Patient reported that her neurologist may put her back on pain medication d/t symptoms. Brittany also verbally indicated that they are still trying to find a new caregiver to support her in the home. She stated that her mother has been having to do a lot more. Without the extra caregiver support, it has been difficult for patient to comply with home exercise program (L UE). Decreased tone management; tightness of digits into flexor pattern. Decreased functional abilities of the L upper extremity. Decreased motor planning. Continued outpatient OT is recommended for development of appropriate of UE HEP, functional problem solving, functional independence, weight shifting Home Exercise Program Please refer to treatment section of note for specific details. - Plan Therapy Recommendations Continue with Current Program, Advance per Rehabilitation Protocol
--- NOTE | 2020-09-26 12:06 | OT.OP.TRT ---
Visit Care Team Role Provider Type KINJAL Cooper Attending Provider Advanced Application Analyst Primary Care Provider Referring Provider Specialty: Family Practice Address: [address] [place] [address], [facility] Email: [email or web address] Occupational Therapy Treatment Note OT Outpatient Treatment Note - Adult Start: 11/15/19 09:37 Freq: Status: Active Protocol: Document 09/26/20 11:52 AMS (Rec: 09/26/20 12:06 AMS [id number]) OT Outpatient Adult Treatment Note Session Time Visit Start Time 10:30 Visit Stop Time 11:30 Total Visit Minutes 60 Visit Information Plan of Care Dates 07/18/20-10/10/20 Insurance Information [facility] Medicare Advantage; KX at 20 visits Setting Treatment Setting Outpatient Care Visit Type Note Type Treatment Note General Information General Information Brittany is a 50 year-old right hand dominant female referred to outpatient OT by PCP, Amie Monique MD, secondary to L UE weakness, other symptoms and signs involving the musuloskeletal system, contracture of muscle of L upper arm. Patient reported that she suffered a stroke in 2014 after having surgery for brain aneurysm; Brittany stated that it occurred while she was residing in [place]. Brittany reportedly moved frequently since date of onset to present day. Brittany has prox L sh stabilization brace; she reports that she has to have brace or encounters pain half way through the day. She also has night splint that she says doesn't work/doesn't stay in her hand. She has several [employer] products to encourage muscle contraction of the UE (e-stim to facilitate elbow flex/ext); she has a mirror box; she receives dry needling 2 x per month. She is receiving outpatient PT. PMH: Significant for memory loss; neck pain; neuropathy; seizures; stroke; thyroid disorder; traumatic brain inj; vision problems. - Subjective Identification Type Name Identification Reconciled With Medical Record Observations Brittany reported that they are still looking for a new caregiver for her. 05/05/20 2V L XR Hip Findings: Question faint calcification versus tiny avulsion off the greater trochanter of the left hip. Patient/Caregiver Compliance with Home Fair Exercise Program - Objective Objective Measurements Please refer to below for progress towards meeting established goals. Short Term Goals 1. 0-90 degrees active L elbow flexion. 07/18/20= 75% met; 0-80 degrees elbow flex 2. 0-45 degrees active L shoulder extension. 07/18/20 = 50% met; 0-30 degrees sh ext GOALS MET 0-15 degrees active L elbow flexion. 03/11/20 = 0-50 Product Coordinator Goals 1Barry Soto will be modified independent with execution of upper extremity home exercise program (including UE ROM, positioning) with support of family and caregivers utilizing provided written and visual instructions from therapist. 09/27/19 =25% met - Treatment 1 Descriptor HEP/POC. Brittany has not yet been given another caregiver; thus, it has been difficult for her to complete exercises. Recommended increased focus on supine chest press exercise , in conjunction with tone management at edge of bed, and consistent use of home e-stim unit to facilitate wrist/ digit extension (based on patient feedback). Exercises 10 Descriptor Supine Exercises. Chest press. 3x10. Min phys assist to support. 2# DB. Sh flexion. 2x10. 7 Descriptor Sh AROM. Scapular pinches. 1x10. Sh flexion. 1x10. Seated. Sh extension. 1x10. Standing. 6 Descriptor Sh ROM. Passive ER. 1 x 10. Passive sh abd. Passive hor abd w/ ER. 1 x 10. 5 Descriptor Tone management. WB at TT modified w/ towel. 1x10. WB at TT at edge of table. 1x10. 4 Descriptor Neurofacilitation. Functional reach pattern of L UE TT. 2x10. TB #2. Scapular retraining. 1 x 10. 3 Descriptor Sh strengthening. Sh abd. 3x10. 1# DB. Sh flex. 3x10. 1# DB. Sh ext. 3x10. 1#DB. Sh add. Sh ext (sh flex pulldown to side). 2x10 each. Seated. TB #2. 2 Descriptor Elbow/Wrist strengthening. Elbow flex. Seated. 3x10. 2# DB. Muscle tapping. Wrist ext. Seated. 3x10. 2# DB . Muscle tapping. Wrist RD. Seated. 3x10. 2# DB. Muscle tapping. 1 Descriptor Citizen [place] e-stim. x 10 minutes. Skin intact pre- and post- treatment. Facilitation of wrist/digit extension. L UE. 10/10 cycle. Intensity 16. - Assessment Assessment of Improvement Brittany also verbally indicated that they are still trying to find a new caregiver to support her in the home. Without the extra caregiver support, it has been difficult for patient to comply with home exercise program (L UE). Recommended increased compliance with chest press exercise while supine. Decreased tone management; tightness of digits into flexor pattern. Decreased functional abilities of the L upper extremity. Decreased motor planning. Continued outpatient OT is recommended for development of appropriate of UE HEP, functional problem solving, functional independence, weight shifting Home Exercise Program Please refer to treatment section of note for specific details. - Plan Therapy Recommendations Continue with Current Program, Advance per Rehabilitation Protocol
--- NOTE | 2020-10-03 12:21 | OT.OP.TRT ---
Visit Care Team Role Provider Type KINJAL Cooper Attending Provider Advanced Shank Stitcher Primary Care Provider Referring Provider Specialty: Family Practice Address: [address] [place] [address], [facility] Email: [email or web address] Occupational Therapy Treatment Note OT Outpatient Treatment Note - Adult Start: 11/15/19 09:37 Freq: Status: Active Protocol: Document 10/03/20 12:14 AMS (Rec: 10/03/20 12:21 AMS [id number]) OT Outpatient Adult Treatment Note Session Time Visit Start Time 10:30 Visit Stop Time 11:25 Total Visit Minutes 55 Visit Information Plan of Care Dates 07/18/20-10/10/20 Insurance Information [facility] Medicare Advantage; KX at 20 visits Setting Treatment Setting Outpatient Care Visit Type Note Type Treatment Note General Information General Information Brittany is a 50 year-old right hand dominant female referred to outpatient OT by PCP, Amie Monique MD, secondary to L UE weakness, other symptoms and signs involving the musuloskeletal system, contracture of muscle of L upper arm. Patient reported that she suffered a stroke in 2014 after having surgery for brain aneurysm; Brittany stated that it occurred while she was residing in [place]. Brittany reportedly moved frequently since date of onset to present day. Brittany has prox L sh stabilization brace; she reports that she has to have brace or encounters pain half way through the day. She also has night splint that she says doesn't work/doesn't stay in her hand. She has several [employer] products to encourage muscle contraction of the UE (e-stim to facilitate elbow flex/ext); she has a mirror box; she receives dry needling 2 x per month. She is receiving outpatient PT. PMH: Significant for memory loss; neck pain; neuropathy; seizures; stroke; thyroid disorder; traumatic brain inj; vision problems. - Subjective Identification Type Name Identification Reconciled With Medical Record Observations Brittany reported that they are still looking for a new caregiver for her. 05/05/20 2V L XR Hip Findings: Question faint calcification versus tiny avulsion off the greater trochanter of the left hip. Patient/Caregiver Compliance with Home Fair Exercise Program - Objective Objective Measurements Please refer to below for progress towards meeting established goals. Short Term Goals 1. 0-90 degrees active L elbow flexion. 07/18/20= 75% met; 0-80 degrees elbow flex 2. 0-45 degrees active L shoulder extension. 07/18/20 = 50% met; 0-30 degrees sh ext GOALS MET 0-15 degrees active L elbow flexion. 03/11/20 = 0-50 Macerator Operator Goals 1. Brittany will be modified independent with execution of upper extremity home exercise program (including UE ROM, positioning) with support of family and caregivers utilizing provided written and visual instructions from therapist. 09/27/19 =25% met - Treatment 1 Descriptor HEP/POC. Reviewed chest press supine, tone management and consistent use of home e-stim unit. Exercises 10 Descriptor Supine Exercises. Chest press. 3x10. Min phys assist to support. 2# DB. Sh flexion. 2x10. 7 Descriptor Sh AROM. Scapular pinches. 1x10. Sh flexion. 1x10. Seated. Sh extension. 1x10. Standing. 6 Descriptor Sh ROM. Passive ER. 1 x 10. Passive sh abd. Passive hor abd w/ ER. 1 x 10. 5 Descriptor Tone management. WB at TT modified w/ towel. 1x10. WB at TT at edge of table. 1x10. 4 Descriptor Neurofacilitation. Functional reach pattern of L UE TT. 2x10. TB #2. Scapular retraining. 1 x 10. 3 Descriptor Sh strengthening. Sh abd. 3x10. 1# DB. Sh flex. 3x10. 1# DB. Sh ext. 3x10. 1#DB. Sh add. Sh ext (sh flex pulldown to side). 2x10 each. Seated. TB #2. 2 Descriptor Elbow/Wrist strengthening. Elbow flex. Seated. 3x10. 2# DB. Muscle tapping. Wrist ext. Seated. 3x10. 2# DB . Muscle tapping. Wrist RD. Seated. 3x10. 2# DB. Muscle tapping. 1 Descriptor Djib[place]ian e-stim. x 10 minutes. Skin intact pre- and post- treatment. Facilitation of wrist/digit extension. L UE. 10/10 cycle. Intensity 19. With use of 1# DB. - Assessment Assessment of Improvement Brittany indicated that current caregiver is able to assist her more during the week; however, she is only able to work until noon on Fridays. Thus, she was unable to attend today's treatment session for a review of recommended home exercises. Brittany has reported compliance w/ chest press exercise, passive range of motion of UE while supine and seated, and tone management. Based on impaired sensation, tone, motor planning, and impaired executive function skills, Brittany would likely benefit from caregiver's assistance w/ execution of home exercise program w/ the UE. She expressed interest in returning to the pool and indicated that her caregiver's are not able to assist her in the local gym d/t liability issues. Brittany also continues to present w/ decreased tone management; tightness of digits into flexor pattern. Decreased functional abilities of the L upper extremity. Decreased motor planning. Continued outpatient OT is recommended for development of appropriate of UE HEP, functional problem solving, functional independence, weight shifting Home Exercise Program Please refer to treatment section of note for specific details. - Plan Therapy Recommendations Continue with Current Program, Advance per Rehabilitation Protocol
--- NOTE | 2020-10-13 11:45 | OT.OP.DC ---
Visit Care Team Role Provider Type KINJAL oCoper Attending Provider Advanced Creative Resource Manager Primary Care Provider Referring Provider Address: [address] [place] [address], [id number] Email: [email or web address] Outpatient OT Outpatient Adult Evaluation Start: 11/15/19 09:37 Freq: Status: Active Protocol: Document 11/15/19 09:37 AMS (Rec: 11/15/19 10:29 AMS [id number]) General Information Session Time Visit Start Time 08:30 Visit Stop Time 09:20 Total Visit Minutes 50 Visit Information Plan of Care Dates 11/15/19-02/07/20 Insurance Information [facility] Medicare Advantage; KX at 20 visits Setting Treatment Setting Outpatient Care Visit Type Note Type Initial Evaluation Referral Referring Physician Amie Monique MD Reason for Referral L UE weakness; contracture of muscle, left upper arm Identification Identification Confirmed Yes: Photo ID Range of Motion Shoulder Right Active Elbow/Forearm ROM WFL Yes Forearm ROM Testing Position Sitting Left Elbow/Forearm ROM WFL No Forearm ROM Testing Position Sitting Shoulder Flex AROM (degrees) 0-10 Query Text: Shoulder Flex PROM (degrees) 0-80 Query Text: Shoulder Ext AROM (degrees) 0-25 Shoulder Ext PROM (degrees) 0-50 Shoulder Abd AROM (degrees) 0-0 Shoulder IR AROM (degrees) 0-10 Shoulder IR PROM (degrees) WFL Shoulder ER AROM (degrees) 0-0 Shoulder ER PROM (degrees) 0-30 Limitations Soft Tissue Tightness, Contracture,Muscle Tone,Pain Elbow/Forearm Right Active Elbow/Forearm ROM WFL Yes Forearm ROM Testing Position Sitting Left Elbow/Forearm ROM WFL No Forearm ROM Testing Position Sitting Elbow Flex AROM (degrees) 0-5 Elbow Flex PROM (degrees) 0-130 Elbow Ext AROM (degrees) 0-5 Elbow Ext PROM (degrees) 0-130 Forearm Pron AROM (degrees) 0-0 Forearm Pron PROM (degrees) WFL Forearm Sup AROM (degrees) 0-0 Forearm Sup PROM (degrees) WFL Wrist Left Wrist ROM WFL No Wrist ROM Testing Position Sitting Wrist Flex AROM (degrees) 0-0 Wrist Flex PROM (degrees) WFL Wrist Ext AROM Fingers Open (degrees) 0-0 Wrist Ext PROM Fingers Open (degrees) 0-0 Wrist Ext AROM Fingers Flexed (degrees) 0-0 Wrist Ext PROM Fingers Flexed (degrees) WFL Ulnar Deviation AROM (degrees) 0-0 Ulnar Deviation PROM (degrees) WFL Radial Deviation AROM (degrees) 0-0 Radial Deviation PROM (degrees) WFL Goals Treatment Treatment Facilitation of active sh ext 1 x 10; elbow flex 1 x 10; elbow ext 1 x 10. Facilitation of scapular mobility with retraction/protraction of L scapula 1 x 10 w/ functional movement patterns. Short Term Goals Short Term Goals 1. 0-15 degrees active L elbow flexion. 2. 0-15 degrees active L elbow extension. 3. 0-45 degrees active L shoulder extension. Advertising Supervisor Goals Penitentiary Goals 1. Brittany will be modified independent with execution of upper extremity home exercise program (including UE ROM, positioning) with support of family and caregivers utilizing provided written and visual instructions from therapist. Assessment/Plan Assessment Treatment Assessment Brittany is a 49 year-old right hand dominant female referred to outpatient OT by PCP, Amie Monique MD, secondary to L UE weakness, other symptoms and signs involving the musuloskeletal system, contracture of muscle of L upper arm. Patient reported that she suffered a stroke in 2014 after having surgery for brain aneurysm; Brittany stated that it occurred while she was residing in [place]. Brittany reportedly moved frequently since date of onset to present day. Brittany has prox L sh stabilization brace; she reports that she has to have brace or encounters pain half way through the day. She also has night splint that she says doesn't work/doesn't stay in her hand. She has several Saebo products to encourage muscle contraction of the UE (e-stim to facilitate elbow flex/ext); she has a mirror box; she receives dry needling 2 x per month. She is receiving outpatient PT. PMH: Significant for memory loss; neck pain; neuropathy; seizures; stroke; thyroid disorder; traumatic brain inj; vision problems. Patient complaints: Loss of active range of motion of L UE . Evaluation Findings: R hand dominant; ambulates with quad cane; has manual w/c and power w/c; c/o pain in R distal UE w/ use of mobility AE w/ intermittent report of nerve compression; pain of posterior neck/lateral neck/between scapulae 3/10 on pain scale; pain of L lumbar region and distal L lateral LE 5/10 on pain scale; pain of R hand 4/ 10 on pain scale. Decreased functional independence w/ BADLS; based on self-report, Brittany is able to doff and don UB and LB clothing w/ mod I (besides assist w/ management of bra), is mod I w / toileting, and requires supervision w/ showering d/t seizures. Impaired posture; bilateral rounding of shoulders, forward positioning of head w/ chin protrusion, and IR of L sh. (-) arm swing and increased body weight placed through quad cane. Tightness of neck musculature and decreased L scapular mobility; decreased L lateral neck rotation ROM vs R. Decreased active ROM of L UE. Decreased motor planning of the L UE. Decreased orientation to midline. Impaired sensation of UE. Outpatient OT is recommended for education re: positioning and development of appropriate of UE HEP; it is also recommended to address UE pain and ROM. Reviewed with Patient Goals Plan Comment 12 weeks Comment 1-2 times per week Therapeutic Contents Active Range of Motion, Adaptive Equipment Education, Client Education,Cognitive Skills Development,Functional Activities,Home Exercise Program,Joint Protection, Manual Therapy,Education, Neurodevelopment Treatment, Neuromuscular Re-Education, Self-Care,Splinting,Stretching /Flexibility Activities, Therapeutic Activities, Therapeutic Exercises, Modalities,Sensory Re- education Modalities As Needed,As Prescribed Types of Modalities E-Stim,Functional Stimulation (FES),Ice Massage,T.E.N. Stimulation,TENS Placement/ Application Additional Types of Modalities Heat Sensory Assessment Sensory Profile2 Functional Wrist/Hand Scan Hand Side OT Outpatient Range of Motion Start: 11/15/19 09:37 Freq: Status: Active Protocol: Document 10/03/20 12:14 [facility] (Rec: 10/03/20 12:21 [facility] [id number]) ROM - Shoulder Shoulder Right Active Shoulder ROM WFL Yes Forearm ROM Testing Position Sitting Left Shoulder ROM WFL No Forearm ROM Testing Position Sitting Shoulder Flex AROM (degrees) 0-25 Query Text: Shoulder Flex PROM (degrees) 0-80 Query Text: Shoulder Ext AROM (degrees) 0-30 Shoulder Ext PROM (degrees) 0-50 Shoulder Abd AROM (degrees) 0-30 Shoulder IR AROM (degrees) WFL Shoulder IR PROM (degrees) WFL Shoulder ER AROM (degrees) 0-0 Shoulder ER PROM (degrees) 0-30 Comments Initial Findings: 0-10 sh flex AROM; 0-25 sh ext AROM; 0 -0 sh abd AROM; 0-10 IR AROM; 0-0 ER AROM ROM - Elbow/Forearm Elbow/Forearm Measured in Degrees Right Active Elbow/Forearm ROM WFL Yes Left Elbow/Forearm ROM WFL No Elbow Flex AROM (degrees) 0-80 (07/18/20) Elbow Flex PROM (degrees) 0-130 Elbow Ext AROM (degrees) 0-125 Elbow Ext PROM (degrees) 0-130 Forearm Pron AROM (degrees) 0-0 Forearm Pron PROM (degrees) WFL Forearm Sup AROM (degrees) 0-0 Forearm Sup PROM (degrees) WFL Comments Initial findings ROM - Wrist Wrist Range of Motion Measured in Degrees Left ROM Testing Position Sitting Wrist Flex AROM (degrees) 0-0 Wrist Flex PROM (degrees) WFL Wrist Ext AROM Fingers Open (degrees) 0-0 Wrist Ext PROM Fingers Open (degrees) 0-0 Wrist Ext AROM Fingers Flexed (degrees) 0-0 Wrist Ext PROM Fingers Flexed (degrees) WFL Ulnar Deviation AROM (degrees) 0-0 Ulnar Deviation PROM (degrees) WFL Radial Deviation AROM (degrees) 0-0 Radial Deviation PROM (degrees) WFL OT Outpatient Treatment Note - Adult Start: 11/15/19 09:37 Freq: Status: Active Protocol: Document 10/13/20 11:25 AMS (Rec: 10/13/20 11:44 AMS [id number]) OT Outpatient Adult Treatment Note Session Time Visit Start Time 10:24 Visit Stop Time 11:20 Total Visit Minutes 54 Visit Information Plan of Care Dates 07/18/20-10/10/20 Insurance Information [facility] Medicare Advantage; KX at 20 visits Setting Treatment Setting Outpatient Care Visit Type Note Type Treatment Note General Information General Information Brittany is a 50 year-old right hand dominant female referred to outpatient OT by PCP, Amie Monique MD, secondary to L UE weakness, other symptoms and signs involving the musuloskeletal system, contracture of muscle of L upper arm. Patient reported that she suffered a stroke in 2014 after having surgery for brain aneurysm; Brittany stated that it occurred while she was residing in [place]. Brittany reportedly moved frequently since date of onset to present day. Brittany has prox L sh stabilization brace; she reports that she has to have brace or encounters pain half way through the day. She also has night splint that she says doesn't work/doesn't stay in her hand. She has several Saebo products to encourage muscle contraction of the UE (e-stim to facilitate elbow flex/ext); she has a mirror box; she receives dry needling 2 x per month. She is receiving outpatient PT. PMH: Significant for memory loss; neck pain; neuropathy; seizures; stroke; thyroid disorder; traumatic brain inj; vision problems. - Subjective Identification Type Name Identification Reconciled With Medical Record Observations I still haven't gotten my w/c . I have another appointment with my doctor scheduled to talk about it with her per Brittany. 05/05/20 2V L XR Hip Findings: Question faint calcification versus tiny avulsion off the greater trochanter of the left hip. Patient/Caregiver Compliance with Home Fair Exercise Program - Objective Objective Measurements Please refer to below for progress towards meeting established goals. Short Term Goals GOALS D/C 1. 0-90 degrees active L elbow flexion. 10/13/20= 75% met ; 0-70 degrees elbow flex 2. 0-45 degrees active L shoulder extension. 10/13/20 = 50% met; 0-30 degrees sh ext GOALS MET 0-15 degrees active L elbow flexion. 03/11/20 = 0-50 Advertising Supervisor Goals 1. Brittany will be modified independent with execution of upper extremity home exercise program (including UE ROM, positioning) with support of family and caregivers utilizing provided written and visual instructions from therapist. 10/13/20 = Provided with written and visual instructions - Treatment 1 Descriptor HEP/POC. Provided written and visual instructions for HEP. Recommend d/c to home exercise program. Reviewed exercises in treatment session. HEP to be scanned into EMR when front desk attendant staff able. Exercises 10 Descriptor Supine Exercises. Chest press. 3x10. Min phys assist to support. 2# DB. Sh flexion. 2x10. 7 Descriptor Sh AROM. Scapular pinches. 1x10. Sh flexion. 1x10. Seated. Sh extension. 1x10. Standing. 6 Descriptor Sh ROM. Passive ER. 1 x 10. Passive sh abd. Passive hor abd w/ ER. 1 x 10. 5 Descriptor Tone management. WB at TT modified w/ towel. 1x10. WB at TT at edge of table. 1x10. 4 Descriptor Neurofacilitation. Functional reach pattern of L UE TT. 2x10. TB #2. Scapular retraining. 1 x 10. 3 Descriptor Sh strengthening. Sh abd. 3x10. 1# DB. Sh flex. 3x10. 1# DB. Sh ext. 3x10. 1#DB. Sh add. Sh ext (sh flex pulldown to side). 2x10 each. Seated. TB #2. 2 Descriptor Elbow/Wrist strengthening. Elbow flex. Seated. 3x10. 2# DB. Muscle tapping. Wrist ext. Seated. 3x10. 2# DB . Muscle tapping. Wrist RD. Seated. 3x10. 2# DB. Muscle tapping. 1 Descriptor Hong Konger e-stim. x 10 minutes. Skin intact pre- and post- treatment. Facilitation of wrist/digit extension. L UE. 10/10 cycle. Intensity 19. With use of 1# DB. - Assessment Assessment of Improvement Therapist completed re- assessment. Decline in available active elbow flexion and sh extension observed compared to last time measurements were taken. Brittany has reported compliance with chest press exercise, passive distal UE ROM of wrist/digits, weight bearing, and active incoporation of L hand w/ grasping things (e.g., clothing management w/ toileting). Therapist modified home recommendations based on feedback and caregiver availability; introduced cane row at TT and cane elbow flexion/extension. Brittany denied excerbation of CTS symptoms with these exercises w/ modifications of grasp/ exclusion of thumb w/ SPC use. Based on inability to demonstrate further progress towards current goals/ functional abilities of the left UE recommend d/c to HEP at this time and re-evaluation in the future as deemed appropriate by PCP. Brittany was provided w/ updated schedule and contact information for this therapist if questions were to arise re : HEP recommendations. Home Exercise Program Please refer to treatment section of note for specific details. - Plan Therapy Recommendations Discharge to Home Exercise Program
== END 2020-10-14 07:31 | disposition home or self-care (01) ==
LOC: OT 10:30
PROVIDERS: PCP Nurse Practitioner; Referring Provider Nurse Practitioner; Visit Provider Nurse Practitioner
DX: R29.898 Other symptoms and signs involving the musculoskeletal system (principal); M62.422 Contracture of muscle, left upper arm
CPT/HCPCS: 97032; 97110; 97112; 97166; 97530; 97542

== ENCOUNTER → 2020-10-29 12:04 | Outpatient (CLI) | payer MEDICARE, MEDICAID, SELFPAY ==
[2020-10-29 12:09] LABS: Bacteria Urine None Seen; RBC Urine None Seen (0-5/HPF)
[2020-10-29 12:31] LABS: Appearance Urine UA CLEAR; Bilirubin Urine UA NEGATIVE (NEGATIVE); Color Urine UA YELLOW; Glucose Urine UA NEGATIVE (Negative); Ketones Urine UA NEGATIVE (NEGATIVE); Leukocyte Esterase Urine UA NEGATIVE (NEGATIVE); Nitrite Urine UA NEGATIVE (Negative); Occult Blood Urine UA NEGATIVE (Negative); Protein Urine UA NEGATIVE (Negative); Specific Gravity Urine UA 1.025 (1.000-1.035); Urobilinogen Urine UA 0.2 E.U./dL (0.2)
[2020-10-29 12:33] LABS: pH Urine UA 5.5 (4.5-8.0)
[2020-10-29 12:41] LABS: WBC Urine 5-10/HPF (0-5/HPF)
[2020-10-29 12:42] LABS: Culture Indicated Urine Cult Not Indicated; Squamous Epithelial Cell Urine 5-10 /HPF (0-5/HPF)
== END ==
PROVIDERS: PCP Nurse Practitioner; Referring Provider Nurse Practitioner; Visit Provider Nurse Practitioner
DX: R30.0 Dysuria (principal); R32 Unspecified urinary incontinence; R35.0 Frequency of micturition; R39.15 Urgency of urination
CPT/HCPCS: 81001

== ENCOUNTER → 2021-01-22 10:03 | Outpatient (CLI) | payer MEDICARE, MEDICAID, SELFPAY ==
[2021-01-22 10:30] LABS: Hematocrit 41.3 % (36-46); Hemoglobin 13.6 g/dL (12.0-16.0); Mean Corpuscular HGB Conc 32.8 % (30-36); Mean Corpuscular Hemoglobin 29.6 PG (26-34); Platelet Count 229 X10^3/uL (150-400); Red Blood Cell Count 4.59 X10^6/uL (4.0-5.2); Red Cell Distribution Width 13.6 % (11.6-14.8); White Blood Cell Count 6.9 X10^3/uL (4.5-11.0)
[2021-01-22 10:38] LABS: Alanine Aminotransferase 33 IU/L (<35); Albumin 4.6 g/dL (3.5-5.0); Albumin Globulin Ratio 1.4 (1.0-2.8); Alkaline Phosphatase 96 U/L (38-126); Aspartate Aminotransferase 28 IU/L (14-36); BUN Creatinine Ratio 26.6 (6-22); Bilirubin Total 0.3 mg/dL (0.2-1.3); Blood Urea Nitrogen 17 mg/dL (7-17); Calcium 9.3 mg/dL (8.4-10.2); Carbon Dioxide 29 mmol/L (22-32); Chloride 102 mmol/L (98-107); Cholesterol 222 mg/dL (140-199); Estimated Glomerular Filt Rate > 60.0 mL/min (>60); Globulin 3.4 g/dL (1.7-4.1); Glucose 97 mg/dL (70-100); HDL Cholesterol 34 mg/dL (40-60); HEMOLYSIS < 15 (0-50); LDL Cholesterol Calculated 135 mg/dL (<100); Potassium 4.5 mmol/L (3.4-5.1); Sodium 139 mmol/L (137-145); Triglycerides 263 mg/dL (35-150)
[2021-01-22 12:08] LABS: Creatinine Urine Random 86.9 mg/dL
[2021-01-22 12:12] LABS: Microalbumin Urine Random 0.7 mg/dL (0-1.6)
[2021-01-22 12:35] LABS: Thyroid Stimulating Hormone 0.458 uIU/mL (0.47-4.68)
[2021-01-26 09:20] LABS: Free T3, Triiodothyronine Free 3.07 pg/mL (2.77-5.27); Free T4, Direct Thyroxine 1.21 ng/dL (0.78-2.19)
== END ==
PROVIDERS: PCP Nurse Practitioner; Referring Provider Nurse Practitioner; Visit Provider Nurse Practitioner
DX: E03.9 Hypothyroidism, unspecified (principal); Z00.00 Encounter for general adult medical examination without abnormal findings; E78.2 Mixed hyperlipidemia; F41.8 Other specified anxiety disorders; F90.9 Attention-deficit hyperactivity disorder, unspecified type; Z79.899 Other long term (current) drug therapy
CPT/HCPCS: 36415; 80053; 80061; 82043; 82570; 84439; 84443; 84481; 85027

== ENCOUNTER → 2021-04-15 12:08 | Outpatient (CLI) | payer MEDICARE, MEDICAID, SELFPAY | PROVIDERS: PCP Nurse Practitioner; Referring Provider Physician Assistant; Visit Provider Physician Assistant | DX: N34.3 Urethral syndrome, unspecified (principal) | CPT/HCPCS: 87086 ==

== ENCOUNTER → 2021-04-28 09:25 | Outpatient (CLI) | payer MEDICARE, MEDICAID, SELFPAY ==
[2021-04-28 12:02] LABS: Thyroid Stimulating Hormone 7.56 uIU/mL (0.47-4.68)
== END ==
PROVIDERS: PCP Nurse Practitioner; Referring Provider Nurse Practitioner; Visit Provider Nurse Practitioner
DX: E03.9 Hypothyroidism, unspecified (principal)
CPT/HCPCS: 36415; 84439; 84443; 84481

== ENCOUNTER → 2021-04-30 12:25 | Outpatient (CLI) | payer MEDICARE, MEDICAID, SELFPAY ==
[2021-04-30 13:23] LABS: Appearance Urine UA CLOUDY; Bilirubin Urine UA NEGATIVE (NEGATIVE); Color Urine UA YELLOW; Glucose Urine UA NEGATIVE (Negative); Ketones Urine UA NEGATIVE (NEGATIVE); Leukocyte Esterase Urine UA 2+ (NEGATIVE); Nitrite Urine UA POSITIVE (Negative); Occult Blood Urine UA 3+ (Negative); Protein Urine UA 1+ (Negative); Urobilinogen Urine UA 0.2 E.U./dL (0.2)
[2021-04-30 13:25] LABS: pH Urine UA 5.5 (4.5-8.0)
[2021-04-30 13:29] LABS: Bacteria Urine Moderate (10-30); Culture Indicated Urine Specimen Cultured; RBC Urine 10-30/HPF (0-5/HPF); Uric Acid Crystals Urine Moderate; WBC Urine 10-30/HPF (0-5/HPF)
== END ==
PROVIDERS: PCP Nurse Practitioner; Referring Provider Nurse Practitioner; Visit Provider Nurse Practitioner
DX: R30.0 Dysuria (principal)
CPT/HCPCS: 81001; 87077; 87086; 87186

== ENCOUNTER → 2021-07-10 10:44 | Outpatient (CLI) | payer MEDICARE, MEDICAID, SELFPAY ==
[2021-07-10 12:04] LABS: Cholesterol 246 mg/dL (140-199); HDL Cholesterol 33 mg/dL (40-60); LDL Cholesterol Calculated 173 mg/dL (<100); Triglycerides 199 mg/dL (35-150)
[2021-07-10 12:20] LABS: Free T3, Triiodothyronine Free 2.22 pg/mL (2.77-5.27); Free T4, Direct Thyroxine 0.41 ng/dL (0.78-2.19)
[2021-07-10 12:33] LABS: Thyroid Stimulating Hormone 20.4 uIU/mL (0.47-4.68)
[2021-07-10 12:38] LABS: Appearance Urine UA CLEAR; Bilirubin Urine UA NEGATIVE (NEGATIVE); Color Urine UA YELLOW; Glucose Urine UA NEGATIVE (Negative); Ketones Urine UA NEGATIVE (NEGATIVE); Leukocyte Esterase Urine UA 1+ (NEGATIVE); Nitrite Urine UA NEGATIVE (Negative); Occult Blood Urine UA NEGATIVE (Negative); Protein Urine UA NEGATIVE (Negative); Specific Gravity Urine UA 1.015 (1.000-1.035); Urobilinogen Urine UA 0.2 E.U./dL (0.2)
[2021-07-10 12:52] LABS: Calcium Oxalate Crystals Urine Few; RBC Urine None Seen (0-5/HPF); Squamous Epithelial Cell Urine 1-5 /HPF (0-5/HPF); WBC Urine 10-30/HPF (0-5/HPF)
[2021-07-10 12:53] LABS: Amorphous Sediment Urine 1+; Bacteria Urine Few (2-10); Culture Indicated Urine Specimen Cultured; Mucus Urine 1+ (Negative)
[2021-07-10 12:56] LABS: Hep C Virus Ab w/Reflex Quant NEGATIVE s/c (NEGATIVE)
== END ==
PROVIDERS: PCP Nurse Practitioner; Referring Provider Nurse Practitioner; Visit Provider Nurse Practitioner
DX: E03.9 Hypothyroidism, unspecified (principal); N39.0 Urinary tract infection, site not specified; R39.15 Urgency of urination; Z79.899 Other long term (current) drug therapy; E78.2 Mixed hyperlipidemia; Z11.59 Encounter for screening for other viral diseases
CPT/HCPCS: 36415; 80061; 81001; 84439; 84443; 84481; 86803; 87077; 87086

== ENCOUNTER → 2021-08-20 11:46 | Outpatient (CLI) | payer MEDICARE, MEDICAID, SELFPAY ==
[2021-08-20 15:01] LABS: Appearance Urine UA SL CLOUDY; Bilirubin Urine UA NEGATIVE (NEGATIVE); Color Urine UA YELLOW; Glucose Urine UA NEGATIVE (Negative); Ketones Urine UA NEGATIVE (NEGATIVE); Leukocyte Esterase Urine UA NEGATIVE (NEGATIVE); Nitrite Urine UA NEGATIVE (Negative); Occult Blood Urine UA NEGATIVE (Negative); Protein Urine UA NEGATIVE (Negative); Urobilinogen Urine UA 0.2 E.U./dL (0.2)
[2021-08-20 15:10] LABS: RBC Urine None Seen (0-5/HPF); Squamous Epithelial Cell Urine 0-1 /HPF (0-5/HPF); WBC Urine 0-1/HPF (0-5/HPF)
[2021-08-20 15:11] LABS: Bacteria Urine None Seen; Calcium Oxalate Crystals Urine Moderate; Culture Indicated Urine Cult Not Indicated
== END ==
PROVIDERS: Family Provider Nurse Practitioner; PCP Nurse Practitioner; Referring Provider Nurse Practitioner; Visit Provider Nurse Practitioner
DX: R30.0 Dysuria (principal)
CPT/HCPCS: 81001

== ENCOUNTER → 2021-08-26 11:29 | Outpatient (CLI) | payer MEDICARE, MEDICAID, SELFPAY ==
--- NOTE | 2021-08-26 11:31 | DI.RAD.S_ITS ---
PROCEDURE: XR KUB INDICATIONS: Flank pain with urination TECHNIQUE: One view of the abdomen acquired. COMPARISON: None. FINDINGS: Surgical changes and devices: None. Bowel: Bowel gas pattern is normal. Moderate fecal debris in the right colon Soft tissues: No suspicious abdominal calcifications. Visualized solid organ contours appear normal in size. Bones: No suspicious bony lesions. IMPRESSION: Moderate fecal debris in the right colon without obstruction Approved by: Tyler Alexandre M.D. on 08/26/2021 at 16:24
== END ==
PROVIDERS: Family Provider Nurse Practitioner; PCP Nurse Practitioner; Referring Provider Nurse Practitioner; Visit Provider Nurse Practitioner
DX: R10.9 Unspecified abdominal pain (principal); N20.0 Calculus of kidney; R19.8 Other specified symptoms and signs involving the digestive system and abdomen
CPT/HCPCS: 74018

== ENCOUNTER → 2021-10-08 10:26 | Outpatient (CLI) | payer MEDICARE, MEDICAID, SELFPAY ==
--- NOTE | 2021-10-08 11:45 | DI.MG.S_ITS ---
BILATERAL DIGITAL SCREENING MAMMOGRAM 3D/2D WITH CAD: 10/08/2021 CLINICAL: Routine screening. Comparison is made to exams dated: 04/08/2020 ultrasound, 04/08/2020 mammogram - [facility], and 11/24/2018 mammogram - [facility]. There are scattered fibroglandular elements in both breasts. Current study was also evaluated with a Computer Aided Detection (CAD) system. No significant masses, calcifications, or other findings are seen in either breast. There has been no significant interval change. IMPRESSION: NEGATIVE There is no mammographic evidence of malignancy. A 1 year screening mammogram is recommended. This exam was interpreted at Station ID: [id number]. NOTE: For mammograms, a report in lay terms will be sent to the patient. Approximately 15% of breast malignancies will not be visualized mammographically. In the management of a palpable breast mass, a negative mammogram must not discourage biopsy of a clinically suspicious lesion. Electronically Signed By: Jose Manuel rojas/josr:10/08/2021 13:30:27 letter sent: Normal Exam ACR BI-RADS Category 1: Negative [id number]
== END ==
PROVIDERS: Family Provider Nurse Practitioner; PCP Nurse Practitioner; Referring Provider Nurse Practitioner; Visit Provider Nurse Practitioner
DX: Z12.31 Encounter for screening mammogram for malignant neoplasm of breast (principal)
CPT/HCPCS: 77063; 77067

== ENCOUNTER → 2021-10-17 08:16 | Outpatient (CLI) | payer MEDICARE, MEDICAID, SELFPAY ==
[2021-10-17 09:42] LABS: Alanine Aminotransferase 33 IU/L (<35); Albumin 4.6 g/dL (3.5-5.0); Albumin Globulin Ratio 1.4 (1.0-2.8); Alkaline Phosphatase 87 U/L (38-126); Aspartate Aminotransferase 28 IU/L (14-36); BUN Creatinine Ratio 22.9 (6-22); Bilirubin Total 0.3 mg/dL (0.2-1.3); Blood Urea Nitrogen 19 mg/dL (7-17); Calcium 9.1 mg/dL (8.4-10.2); Carbon Dioxide 23 mmol/L (22-32); Chloride 108 mmol/L (98-107); Cholesterol 249 mg/dL (140-199); Estimated Glomerular Filt Rate > 60 mL/min (>60); Globulin 3.4 g/dL (1.7-4.1); Glucose 103 mg/dL (70-100); HDL Cholesterol 30 mg/dL (40-60); HEMOLYSIS < 15 (0-50); LDL Cholesterol Calculated 168 mg/dL (<100); Potassium 4.4 mmol/L (3.4-5.1); Sodium 140 mmol/L (137-145); Triglycerides 255 mg/dL (35-150)
[2021-10-17 09:59] LABS: Free T3, Triiodothyronine Free 2.76 pg/mL (2.77-5.27); Free T4, Direct Thyroxine 0.59 ng/dL (0.78-2.19)
[2021-10-17 10:13] LABS: Thyroid Stimulating Hormone 2.21 uIU/mL (0.47-4.68)
== END ==
PROVIDERS: Family Provider Nurse Practitioner; PCP Nurse Practitioner; Referring Provider Nurse Practitioner; Visit Provider Nurse Practitioner
DX: E03.9 Hypothyroidism, unspecified (principal); E78.2 Mixed hyperlipidemia; F41.8 Other specified anxiety disorders; Z79.899 Other long term (current) drug therapy
CPT/HCPCS: 36415; 80053; 80061; 84439; 84443; 84481

== ENCOUNTER → 2021-12-17 10:34 | Outpatient (CLI) | payer MEDICARE, MEDICAID, SELFPAY ==
--- NOTE | 2021-12-17 10:38 | DIET.CONS ---
Addendum entered by Amparo Pederson 12/22/21 16:39: Additional Diagnoses: obesity r/t excessive calorie intake and physical inactivity aeb BMI 35.5, pt reports emotional eating after stroke, pt walker and wheelchair bound s/p stroke. Original Note: Dietary Consultation Note Assessment: 51y disabled F attending RD visit for help with weight management after stroke that resulted in hemiplegia and chronic constipation. Pt eating general healthy diet with good portion control, however pts barriers are emotional eating, especially at night r/t life altering stroke and relocation of grandchildren to [place], [place]. Pt also endorses some problems with impulse control after stroke, for instance, she used to keep sweets in home and could limit her intake, now she has difficulty. Ht: 5'2 Wt: 88kg Pt with dry mouth and constipation. Pt has MBSS scheduled on 01/06 as she often reports pills getting stuck and stacking in throat and trouble drinking thin liquids. She was on nectar thick in the hospital before d/c but did not continue this texture at home. Pt able to easily drink protein drinks as these are nectar thick. Usual Day: wakes 8am water and thyroid pill then sets timer Coffee c SF creamer Premier Protein drink or hb egg and turkey moran every once in a while mini wheats drinks Avocare with miralax each morning Lunch around noon: bagged salad with chicken and dressing, sometimes soup- tomato, veggie barley and sandwich- grilled cheese c mozzarella, broccoli salad Dinner (5pm): 1/2 sweet potato c butter c pork loin, stir fried cabbage c pork or chicken and mixed veggies, brussels sprouts, broccoli, peas, asparagus, stuffed pittman peppers with ground turkey and beans. Pt feels dinner is often not enough so ends up binging at night on almond butter c celery or apple, SF gum, protein bars. Nutrition Diagnosis: abnormal weight gain r/t emotional eating as coping mechanism aeb pt reports reduced impulse control and feelings of loss after stroke, BMI 35.5, pt wheelchair bound. Interventions: 1. To address emotional eating, introduced pt to hunger scale. Pt likely undereating meals leading to overeating later on. Recc pt eat at 3 and stop at 8. If pt trying to eat when 5, discussed strategies to identify driving emotion and non-food coping mechanisms. 2. To support weight loss and constipation discussed pts fiber intake and fiber goal of 21g/d. Pt given handout on fiber content of foods and collaborated c RD on ways to increase fiber. 3. Discussed pts difficulty drinking water r/t constipation. Reinforced pts work with CIRCULATION LIBRARIAN to work on strategies and exercises to support safe swallow. Provided pt 3 simply thick packets to trial with plain water for ease of drinking. 4. Introduced pt to [employer] as resource for 1200kcal meal plans and healthy recipes. EER: 1200kcals, 21g fiber Monitoring/Evaluations: f/u in 4w Electronically Signed by: Amparo Pederson 12/17/21 10:38 Clinical Dietitian [address] [id number]
== END ==
PROVIDERS: Family Provider Nurse Practitioner; PCP Nurse Practitioner; Referring Provider Nurse Practitioner; Visit Provider Nurse Practitioner
DX: I69.354 Hemiplegia and hemiparesis following cerebral infarction affecting left non-dominant side (principal); K59.09 Other constipation; R63.5 Abnormal weight gain; Z71.3 Dietary counseling and surveillance; Z68.35 Body mass index [BMI] 35.0-35.9, adult
CPT/HCPCS: 97802

== ENCOUNTER → 2021-12-24 09:41 | Outpatient (CLI) | payer MEDICARE, MEDICAID, SELFPAY ==
[2021-12-24 12:02] LABS: Free T4, Direct Thyroxine 2.22 ng/dL (0.78-2.19)
[2021-12-24 12:25] LABS: Thyroid Stimulating Hormone < 0.015 uIU/mL (0.47-4.68)
== END ==
PROVIDERS: Family Provider Nurse Practitioner; PCP Nurse Practitioner; Referring Provider Student in an Organized Health Care Education/Training Program; Visit Provider Student in an Organized Health Care Education/Training Program
DX: E03.9 Hypothyroidism, unspecified (principal)
CPT/HCPCS: 36415; 84439; 84443

== ENCOUNTER → 2022-01-06 11:06 | Outpatient (CLI) | payer MEDICARE, MEDICAID, SELFPAY ==
--- NOTE | 2022-01-06 11:07 | DI.RAD.S_ITS ---
PROCEDURE: FL BARIUM SWALLOW W SPEECH INDICATIONS: difficulty swallowing pills, get stuck, and painful COMPARISON: None. TECHNIQUE: Examination was conducted in conjunction with speech pathology per standard protocol. In the lateral projection, filming was performed of the patient swallowing. AP projection filming may also be performed with patient swallowing. COMPARISON: FINDINGS: Function: The oral preparatory phase appears normal, with proper containment. The subsequent oral propulsive phase, pharyngeal phase, and esophageal phase of swallowing also appear normal with all proffered substances. No laryngotracheal penetration or aspiration. No pathologic vallecular pooling. There is delayed transit of a barium tablet through the gastroesophageal junction. Morphology: No cricopharyngeal bar is identified. No cervical esophageal webs. No Zenker's diverticulum. No strictures. IMPRESSION: 1. No laryngeal penetration, or aspiration. 2. Possible gastroesophageal junction stricture. Initial further assessment with endoscopy is recommended. Dictated by: Tripp Ng M.D. on 01/06/2022 at 14:49 Approved by: Tripp Ng M.D. on 01/06/2022 at 14:50
--- NOTE | 2022-01-06 15:30 | ST.SWALLOW ---
Visit Care Team Role Provider Type KINJAL Cooper Attending Provider Advanced Advertising Executive Family Provider Primary Care Provider Referring Provider Specialty: Family Practice Address: [address] [place] [address], [facility] Email: [email or web address] Modified Barium Swallow Study CLINICAL FACULTY Modified Barium Swallow Study Start: 01/06/22 15:28 Freq: Status: Active Protocol: Document 01/06/22 15:28 ZS (Rec: 01/06/22 15:28 ZS [id number]) Modified Barium Swallow Study Total Time Visit Start Time 11:30 Visit Stop Time 11:50 Total Visit Minutes 20 Setting Setting Outpatient Care Patient Information Identification Type Name Patient History Adelaide is a 51 year old female referred for a modified barium swallow study for persistent swallowing difficulties since 2014. 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 Adelaide reported she was on a trach for respiratory support and has had difficulty swallowing several pills at once. She stated she used to be able to swallow several pills at the same time and has been experiencing difficulty swallowing even one pill since the events in 2014 . Adelaide reported she also experiences some reflux. Subjective Observations Adelaide was seated in the assessment chair when CLINICAL FACULTY arrived. Her block captain joined at the end of the assessment to review results. Procedure and process described to pt, who expressed understanding and agreed to participate. Patient Positioning Position View Lat-A/P Imaging Lateral View Textures Administered Trials Presented Thin Liquid via Cup,[place] Liquid via Cup,Regular Textures Oral Phase Source: MBSIMP (TM) (C) Bolus Specific Scoring Grid Lip Closure No Impairment (WNL) Tongue Control During Bolus Hold No Impairment (WNL) Bolus Prep/Mastication No Impairment (WNL) Bolus Transport/Lingual Motion No Impairment (WNL) A/P Lingual Propulsion Delay No Oral Residue Mild Impairment Residue Clearing No Impairment (WNL) Nasal Regurgitation No Additional Oral Phase Observations No anterior loss of bolus and no loss of bolus during tongue hold. A/p propulsion and mastication were timely and efficient. Some munching observed, which transitioned into rotary chew. Bolus was masticated and swallowed WFL. The pt exhibited mild oral residue following swallows, which she cleared with a spontaneous second swallow. Pharyngeal Phase Source: MBSIMP (TM) (C) Bolus Specific Scoring Grid Delayed Initiation of Pharyngeal Swallow Yes: bolus head in valleculae Soft Palate Elevation No Impairment (WNL) Tongue Base Strength/Range of Motion No Impairment (WNL) Residue Along the Tongue Base No Laryngeal Elevation No Impairment (WNL) Anterior Hyoid Movement Minimal Impairment Epiglottic Range of Motion No Impairment (WNL) Vallecular Residue Yes Clearance of Vallecular Residue No Impairment (WNL) Laryngeal Vestibular Closure No Impairment (WNL) Pharyngeal Stripping Wave Minimal Impairment Pharyngeal Contraction No Impairment (WNL) Posterior Pharyngeal Wall Residue No Upper Esophageal Sphincter Opening No Impairment (WNL) Residue in the Pyriform Sinuses Yes Clearance of Residue in the Pyriform No Impairment (WNL) Sinuses Esophageal Clearance Upright Position Mild Impairment Pharyngoesophageal Backflow Observed No Additional Pharyngeal Phase Observations Delayed initiation of pharyngeal swallow, with the head of the bolus in the valleculae. Mildly impaired anterior hyoid excursion and minimally impaired pharyngeal stripping wave, which did not appear to impact bolus movement or laryngeal vestibular closure. No penetration or aspiration observed. Trace residue present in pyriforms and valleculae, which was cleared with a spontaneous second swallow. A/P View Textures Administered Trials Presented Thin Liquid via Cup,Barium Tablet A/P View Observations Pharyngeal Contraction No Impairment (WNL) Esophageal Function Slowed Clearing Esophageal Clearance Upright Position Mild Impairment Additional Observations Bolus moved slowly through esophagus and residue remained after swallow was complete. Barium tablet did not pass to stomach by the end of the assessment. No obvious obstruction observed. Clinical Impressions Findings The pt presents with swallowing WNL. Slowed clearance of barium tablet through esophagus, which is may be contributing to difficulty swallowing pills. Recommend referral for GI consult due to slowed clearance of barium tablet and reported reflux symptoms. Speech therapy is not recommended at this time as pt presents with swallowing WNL. Patient Appropriate for Therapy No Recommendations Diet Liquids Order Thin Diet Order Regular Medication Recommendation As Tolerated Treatment Plan Recommended Referrals GI Consult
== END ==
PROVIDERS: Family Provider Nurse Practitioner; PCP Nurse Practitioner; Referring Provider Nurse Practitioner; Visit Provider Nurse Practitioner
DX: R19.8 Other specified symptoms and signs involving the digestive system and abdomen (principal); R07.0 Pain in throat
CPT/HCPCS: 74230; 92611

== ENCOUNTER → 2022-03-24 07:56 | Outpatient (CLI) | payer MEDICARE, MEDICAID, SELFPAY ==
[2022-03-24 10:21] LABS: Cholesterol 194 mg/dL (140-199); HDL Cholesterol 29 mg/dL (40-60); LDL Cholesterol Calculated 118 mg/dL (<100); Triglycerides 234 mg/dL (35-150)
[2022-03-24 10:32] LABS: Free T3, Triiodothyronine Free 3.24 pg/mL (2.77-5.27); Free T4, Direct Thyroxine 1.65 ng/dL (0.78-2.19)
[2022-03-24 10:46] LABS: Thyroid Stimulating Hormone < 0.015 uIU/mL (0.47-4.68)
== END ==
PROVIDERS: Family Provider Nurse Practitioner; PCP Nurse Practitioner; Referring Provider Nurse Practitioner; Visit Provider Nurse Practitioner
DX: E78.2 Mixed hyperlipidemia (principal); E03.9 Hypothyroidism, unspecified
CPT/HCPCS: 36415; 80061; 84439; 84443; 84481

== ENCOUNTER → 2022-06-14 10:10 | Outpatient (CLI) | payer MEDICARE, MEDICAID, SELFPAY ==
[2022-06-14 12:45] LABS: Cholesterol 251 mg/dL (140-199); HDL Cholesterol 34 mg/dL (40-60); LDL Cholesterol Calculated 172 mg/dL (<100); Triglycerides 226 mg/dL (35-150)
[2022-06-14 13:28] LABS: Free T3, Triiodothyronine Free 3.08 pg/mL (2.77-5.27); Free T4, Direct Thyroxine 1.28 ng/dL (0.78-2.19)
== END ==
PROVIDERS: Family Provider Nurse Practitioner; PCP Nurse Practitioner; Referring Provider Student in an Organized Health Care Education/Training Program; Visit Provider Student in an Organized Health Care Education/Training Program
DX: E03.9 Hypothyroidism, unspecified (principal); E78.2 Mixed hyperlipidemia; Z79.899 Other long term (current) drug therapy
CPT/HCPCS: 36415; 80061; 84439; 84443; 84481

== ENCOUNTER → 2022-06-16 10:42 | Outpatient (CLI) | payer MEDICARE, MEDICAID, SELFPAY ==
[2022-06-17 11:11] LABS: Fecal Immunochemical Test Negative (Negative)
== END ==
PROVIDERS: Family Provider Nurse Practitioner; PCP Nurse Practitioner; Referring Provider Nurse Practitioner; Visit Provider Nurse Practitioner
DX: Z12.11 Encounter for screening for malignant neoplasm of colon (principal)
CPT/HCPCS: 82274

== ENCOUNTER → 2022-07-20 12:53 | Outpatient (CLI) | payer MEDICARE, MEDICAID, SELFPAY | PROVIDERS: Family Provider Nurse Practitioner; PCP Nurse Practitioner; Visit Provider Student in an Organized Health Care Education/Training Program | DX: R30.0 Dysuria (principal) | CPT/HCPCS: 87077; 87086; 87147; 87186 ==

== ENCOUNTER 2022-08-31 09:30 | Outpatient (RCR) | payer MEDICARE, MEDICAID, SELFPAY ==
--- NOTE | 2021-07-29 15:30 | OT.OP.EVAL ---
Visit Care Team Role Provider Type KINJAL Cooper Attending Provider Advanced Steam Press Tender Family Provider Primary Care Provider Referring Provider Specialty: Family Practice Address: [address] [place] [address], [id number] Email: [email or web address] Occupational Therapy Initial Evaluation OT Outpatient Adult Evaluation Start: 07/31/21 08:56 Freq: Status: Active Protocol: Document 07/29/21 15:30 AMS (Rec: 07/31/21 09:27 AMS [id number]) General Information Visit Start Time 10:30 Visit Stop Time 11:15 Total Visit Minutes 45 Visit Number 05/18 Plan of Care Dates 07/29/21 - 10/07/21 Insurance Information Medicare Treatment Setting Outpatient Care Note Type Initial Evaluation Goals Treatment Weight shifting onto left hand while seated at mat; fingers come over edge of the mat. Active elbow extension. Reviewed posture; scapular pinches. Short Term Goals 1. Adelaide will demonstrate improved active range of motion of the left upper extremity: 1a. 0-25 degrees active left shoulder extension. 1b. 0-50 degrees active left shoulder flexion. 1c. 0- 15 degrees active left shoulder abduction. Chief Construction Inspector Goals 1. Adelaide will be modified independent with execution of upper extremity home exercise program with the support of her caregiver(s) utilizing provided written and visual instructions from therapist. Assessment/Plan Treatment Assessment Adelaide (or Sofi) is a 51 year- old right hand dominant female referred to outpatient OT by PCP, KINJAL Cooper, secondary to residual effects of stroke that occurred in 2014 after having surgery for brain aneurysm. Brittany was previously been seen in the outpatient setting by this OT; she was d/c to home exercise program with intent of returning to OT for upgrading of HEP. Due to inconsistent caregiver support, Brittany reports that she was inconsistent with doing her exercises. She continues to prefer proximal L sh stabilization brace versus Giv Sameer sling (d/t reported discomfort w/ Giv Sameer sling in right armpit from cyst). Brittany reports inconsistent use of night splint. Brittany is receiving outpatient PT for gait/balance/lower extremity weakness. She is also seeing Dr. Carter for pain management and seeing Dr. Stanton for development of coping skills. Brittany completed Pain Assessment Grid and indicated 6 out of 10 on the pain scale relative to right dorsal wrist . Will need to have patient complete updated body pain grid at time of next session. She obtained a score of 79.55 on the QuickDASH UE Outcome Measure. Goniometer Measurements: R sh/elbow/wrist /fingers AROM WFL. 0-25 degrees active L sh flex; 0-90 degrees passive L sh flex; 0- 0 degrees active L sh ext; 0- 50 degrees passive L sh ext; 0 -0 degrees active L sh abd; 0- 90 degrees passive L sh abd; IR active WFL w/ blocking; 0-0 degrees active L sh ER; 0-30 degrees active L sh ER; 0-0 degrees active L elbow flex; 0 -130 degrees passive L elbow flex; 0-130 degrees active L elbow ext; 0-0 degrees active L forearm pronation; WNL passive L forearm pronation; 0 -0 degrees active L forearm supination; WNL passive L forearm supination. No active ROM of L wrist. Passive AROM L wrist WFL. When fingers extended and to flex into fisted position; (-) active extension of digits of the L hand. Assist for positioning of the left upper extremity to facilitate weight bearing; tolerates better w/ fingers positioned over 'edge' of seated surface. Report of inclusion of the left hand/ upper extremity w/ clothing management w/ toileting and positioning L hand/UE on TT surface when engaging in art based tasks on vertical surface. Dependence on right upper extremity. Impaired posture. Decreased orientation ot midline. Impaired sensation of the left upper extremity. Brittany would likely benefit from outpatient OT to establish appropriate HEP and caregiver training and to address posture, UE range of motion, and provide education to maintain available range of motion. Comment 10 weeks Comment 1 to 2 times per week Therapeutic Contents Active Range of Motion, Adaptive Equipment Education, Client Education,Cognitive Skills Development,Functional Activities,Home Exercise Program,Joint Protection, Manual Therapy,Education, Neurodevelopment Treatment, Neuromuscular Re-Education, Self-Care,Stretching/ Flexibility Activities, Therapeutic Activities, Therapeutic Exercises, Modalities,Sensory Re- education Modalities As Needed,As Prescribed Types of Modalities E-Stim,Ultrasound Additional Types of Modalities Hot pack/Cold pack
--- NOTE | 2021-08-14 15:48 | OT.OP.TRT ---
Visit Care Team Role Provider Type KINJAL Cooper Attending Provider Advanced Brass Chaser Family Provider Primary Care Provider Referring Provider Specialty: Family Practice Address: [address] [place] [address], [facility] Email: [email or web address] Occupational Therapy Treatment Note OT Outpatient Treatment Note - Adult Start: 07/31/21 08:56 Freq: Status: Active Protocol: Document 08/14/21 15:41 AMS (Rec: 08/14/21 15:48 AMS [id number]) OT Outpatient Adult Treatment Note Session Time Visit Start Time 10:30 Visit Stop Time 11:25 Total Visit Minutes 55 Visit Information Visit Number 06/18 Plan of Care Dates 07/29/21 - 10/07/21 Insurance Information Medicare Setting Treatment Setting Outpatient Care Visit Type Note Type Treatment Note General Information General Information Adelaide (or Sofi) is a 51 year- old right hand dominant female referred to outpatient OT by PCP, KINJAL Cooper, secondary to residual effects of stroke that occurred in 2014 after having surgery for brain aneurysm. Brittany was previously been seen in the outpatient setting by this OT; she was d/c to home exercise program with intent of returning to OT for upgrading of HEP. Due to inconsistent caregiver support, Brittany reports that she was inconsistent with doing her exercises. She continues to prefer proximal L sh stabilization brace versus Giv Sameer sling (d/t reported discomfort w/ Giv Sameer sling in right armpit from cyst). Brittany reports inconsistent use of night splint. Brittany is receiving outpatient PT for gait/balance/lower extremity weakness. She is also seeing Dr. Carter for pain management and seeing Dr. Stanton for development of coping skills. - Subjective Identification Type Name Identification Reconciled With Medical Record Observations Adelaide was accompanied by her caregiver to OT treatment session. - Objective Objective Measurements Please refer to below for progress towards meeting established goals. Short Term Goals 1. Adelaide will demonstrate improved active range of motion of the left upper extremity: 1a. 0-25 degrees active left shoulder extension. 1b. 0-50 degrees active left shoulder flexion. 1c. 0- 15 degrees active left shoulder abduction. Magazine Publisher Goals 1. Adelaide will be modified independent with execution of upper extremity home exercise program with the support of her caregiver(s) utilizing provided written and visual instructions from therapist. - Treatment 1 Descriptor HEP/POC. Provided written and visual instructions for HEP. Exercises 5 Descriptor [place] e-stim to facilitate digit and wrist extension. Intensity 26. 10/10 cycle. x 9 minutes. 4 Descriptor TT exercises. Functional reaching w/ towel. 1 x 15. Circles 1 x 5. 3 Descriptor UE exercises. Scapular retraction. 1 x 15. Sh ext. 1 x 15. Elbow ext. 1 x 15. 2 Descriptor Cane exercises. Supine. Chest press 1 x 15. Sh flex 1 x 15. Seated. Elbow flex/ext. 1 x 15 . 1 Descriptor Tone management at EOM. Hand; weight shifting to the left. Weight shifting forwards and backwards w/ and without elbow flexion. - Assessment Assessment of Improvement Adelaide was accompanied by her caregiver to treatment session . Focus of treatment session on re-establishing UE home exercise program. Written and visual instructions were provided to caregiver; this information will be scanned into EMR by frontend engineer staff when they are able to do so. Briefly discussed home e-stim unit; will need to follow-up w / PT. Adelaide would likely benefit from outpatient OT to establish appropriate HEP and caregiver training and to address posture, UE range of motion, and provide education to maintain available range of motion. - Plan Therapy Recommendations Continue with Current Program, Advance per Rehabilitation Protocol
--- NOTE | 2021-08-20 13:29 | OT.OP.TRT ---
Visit Care Team Role Provider Type KINJAL Cooper Attending Provider Advanced Telecommunications Repairer Family Provider Primary Care Provider Referring Provider Specialty: Family Practice Address: [address] [place] [address], [address] Email: [email or web address] Occupational Therapy Treatment Note OT Outpatient Treatment Note - Adult Start: 07/31/21 08:56 Freq: Status: Active Protocol: Document 08/20/21 13:22 AMS (Rec: 08/20/21 13:29 AMS [id number]) OT Outpatient Adult Treatment Note Session Time Visit Start Time 10:30 Visit Stop Time 11:25 Total Visit Minutes 55 Visit Information Visit Number 07/16 Plan of Care Dates 07/29/21 - 10/07/21 Insurance Information Medicare Setting Treatment Setting Outpatient Care Visit Type Note Type Treatment Note General Information General Information Adelaide (or Sofi) is a 51 year- old right hand dominant female referred to outpatient OT by PCP, KINJAL Cooper, secondary to residual effects of stroke that occurred in 2014 after having surgery for brain aneurysm. Brittany was previously been seen in the outpatient setting by this OT; she was d/c to home exercise program with intent of returning to OT for upgrading of HEP. Due to inconsistent caregiver support, Brittany reports that she was inconsistent with doing her exercises. She continues to prefer proximal L sh stabilization brace versus Giv Sameer sling (d/t reported discomfort w/ Giv Sameer sling in right armpit from cyst). Brittany reports inconsistent use of night splint. Brittany is receiving outpatient PT for gait/balance/lower extremity weakness. She is also seeing Dr. Carter for pain management and seeing Dr. Stanton for development of coping skills. - Subjective Identification Type Name Identification Reconciled With Medical Record Observations Adelaide was accompanied by her caregiver to 75% of OT treatment session. Both denied questions in re: HEP. We are slowly working into the home exercises per caregiver. - Objective Objective Measurements Please refer to below for progress towards meeting established goals. Short Term Goals 1. Adelaide will demonstrate improved active range of motion of the left upper extremity: 1a. 0-25 degrees active left shoulder extension. 1b. 0-50 degrees active left shoulder flexion. 1c. 0- 15 degrees active left shoulder abduction. Statistical Financial Analyst Goals 1. Adelaide will be modified independent with execution of upper extremity home exercise program with the support of her caregiver(s) utilizing provided written and visual instructions from therapist. - Treatment 1 Descriptor HEP/POC. Recommended consideration of passive wrist /digit stretch of right upper extremity (elbow ext, forearm supination and wrist ext) w/ use of TT. Exercises 6 Descriptor Resistant UE exercises. Elbow ext. 2# TB. 1 x 10. 5 Descriptor Scottish e-stim to facilitate digit and wrist extension. Intensity 26. 10/10 cycle. x 10 minutes. Skin intact pre- and post- treatment. Active participation w/ e-stim protocol. 4 Descriptor TT exercises. Functional reaching w/ towel. Infront of body. Circles. Sh abd. 1 x 15. 3 Descriptor UE exercises. Scapular retraction. 1 x 10. Sh ext. 1 x 10. Elbow flex. Muscle tapping to facilitate. 1 x 10. 2 Descriptor Cane exercises. Supine. Chest press 1 x 15. Sh flex 1 x 15. Seated. Elbow flex/ext. 1 x 15 . 1 Descriptor Tone management at EOM. Hand; weight shifting to the left. Weight shifting forwards and backwards w/ and without elbow flexion. - Assessment Assessment of Improvement Adelaide was accompanied by her caregiver to treatment session . Upgraded exercises completed in treatment session; no additional exercises were added for L UE to home exercise program given 'slowly ' getting back to home routine of exercises. Increased ability to actively flex elbow post- muscle tapping/ facilitation provided by therapist. Able to fully extend all digits on top of TT post tone management work. Overall, good session. Adelaide would likely benefit from outpatient OT to establish appropriate HEP and caregiver training and to address posture, UE range of motion, and provide education to maintain available range of motion. - Plan Therapy Recommendations Continue with Current Program, Advance per Rehabilitation Protocol
--- NOTE | 2021-08-25 14:07 | OT.OP.TRT ---
Visit Care Team Role Provider Type KINJAL Cooper Attending Provider Advanced Outsole Splicer Family Provider Primary Care Provider Referring Provider Specialty: Family Practice Address: [address] [place] [address], [facility] Email: [email or web address] Occupational Therapy Treatment Note OT Outpatient Treatment Note - Adult Start: 07/31/21 08:56 Freq: Status: Active Protocol: Document 08/25/21 13:54 AMS (Rec: 08/25/21 14:07 AMS [id number]) OT Outpatient Adult Treatment Note Session Time Visit Start Time 10:30 Visit Stop Time 11:25 Total Visit Minutes 55 Visit Information Visit Number 08/16 Plan of Care Dates 07/29/21 - 10/07/21 Insurance Information Medicare Setting Treatment Setting Outpatient Care Visit Type Note Type Treatment Note General Information General Information Adelaide (or Sofi) is a 51 year- old right hand dominant female referred to outpatient OT by PCP, KINJAL Cooper, secondary to residual effects of stroke that occurred in 2014 after having surgery for brain aneurysm. Brittany was previously been seen in the outpatient setting by this OT; she was d/c to home exercise program with intent of returning to OT for upgrading of HEP. Due to inconsistent caregiver support, Brittany reports that she was inconsistent with doing her exercises. She continues to prefer proximal L sh stabilization brace versus Giv Sameer sling (d/t reported discomfort w/ Giv Sameer sling in right armpit from cyst). Brittany reports inconsistent use of night splint. Brittany is receiving outpatient PT for gait/balance/lower extremity weakness. She is also seeing Dr. Carter for pain management and seeing Dr. Stanton for development of coping skills. - Subjective Identification Type Name Identification Reconciled With Medical Record Observations Adelaide was accompanied by her caregiver to OT treatment session. Both denied questions in re: HEP; I put on the night brace for this arm by myself. My mom had to help with the velcro straps. - Objective Objective Measurements Please refer to below for progress towards meeting established goals. Short Term Goals 1. Adelaide will demonstrate improved active range of motion of the left upper extremity: 1a. 0-25 degrees active left shoulder extension. 1b. 0-50 degrees active left shoulder flexion. 1c. 0- 15 degrees active left shoulder abduction. Usp Goals 1. Adelaide will be modified independent with execution of upper extremity home exercise program with the support of her caregiver(s) utilizing provided written and visual instructions from therapist. - Treatment 1 Descriptor HEP/POC. Requested that Adelaide brings home e-stim unit to next PT session. No changes were made to HEP. Discussed Adelaide bringing in night distal UE splint to practice donning w/ therapist to support functional independence given that she does not have assistance from her caregiver at night. Exercises 6 Descriptor Resistant UE exercises. Elbow ext. 2# TB. 1 x 10. 5 Descriptor Martiniquais e-stim to facilitate digit and wrist extension. Intensity 26. 10/10 cycle. x 10 minutes. Skin intact pre- and post- treatment. Active participation w/ e-stim protocol. 4 Descriptor TT exercises. Functional reaching w/ towel. Infront of body. Circles. Sh abd. 1 x 15. 3 Descriptor UE exercises. Scapular retraction. 1 x 10. Sh ext. 1 x 10. Elbow flex. Muscle tapping to facilitate. 1 x 10. 2 Descriptor Active flexion of digits. 1 x 10. 1 Descriptor Tone management at EOM. Hand; weight shifting to the left. Weight shifting forwards and backwards w/ and without elbow flexion. - Assessment Assessment of Improvement Adelaide was accompanied by caregiver to treatment session . Able to tolerate full extension of digits post tone management/passive range of motion by therapist. Poor weight bearing into digits of the left hand; benefits from progression of tone/weight bearing exercises (to eventual positioning of digits in extension). Poor motor planning of left upper extremity. Discussed Adelaide bringing in night distal UE splint to practice donning w/ therapist to support functional independence given that she does not have assistance from her caregiver at night. Requested Adelaide brings home e-stim unit to next outpatient PT session. Overall, good session. Adelaide would likely benefit from outpatient OT to establish appropriate HEP and caregiver training and to address posture, UE range of motion, and provide education to maintain available range of motion. - Plan Therapy Recommendations Continue with Current Program, Advance per Rehabilitation Protocol
--- NOTE | 2021-09-01 13:06 | OT.OP.TRT ---
Visit Care Team Role Provider Type KINJAL Cooper Attending Provider Advanced Perinatal Director Family Provider Primary Care Provider Referring Provider Specialty: Family Practice Address: [address] [place] [address], [address] Email: [email or web address] Occupational Therapy Treatment Note OT Outpatient Treatment Note - Adult Start: 07/31/21 08:56 Freq: Status: Active Protocol: Document 09/01/21 12:54 AMS (Rec: 09/01/21 13:06 AMS [id number]) OT Outpatient Adult Treatment Note Session Time Visit Start Time 10:30 Visit Stop Time 11:25 Total Visit Minutes 55 Visit Information Visit Number 09/15 Plan of Care Dates 07/29/21 - 10/07/21 Insurance Information Medicare Setting Treatment Setting Outpatient Care Visit Type Note Type Treatment Note General Information General Information Adelaide (or Sofi) is a 51 year- old right hand dominant female referred to outpatient OT by PCP, KINJAL Cooper, secondary to residual effects of stroke that occurred in 2014 after having surgery for brain aneurysm. Brittany was previously been seen in the outpatient setting by this OT; she was d/c to home exercise program with intent of returning to OT for upgrading of HEP. Due to inconsistent caregiver support, Brittany reports that she was inconsistent with doing her exercises. She continues to prefer proximal L sh stabilization brace versus Giv Sameer sling (d/t reported discomfort w/ Giv Sameer sling in right armpit from cyst). Brittany reports inconsistent use of night splint. Brittany is receiving outpatient PT for gait/balance/lower extremity weakness. She is also seeing Dr. Carter for pain management and seeing Dr. Stanton for development of coping skills. - Subjective Identification Type Name Identification Reconciled With Medical Record Observations Adelaide was accompanied by her caregiver to OT treatment session. - Objective Objective Measurements Please refer to below for progress towards meeting established goals. Short Term Goals 1. Adelaide will demonstrate improved active range of motion of the left upper extremity: 1a. 0-25 degrees active left shoulder extension. 1b. 0-50 degrees active left shoulder flexion. 1c. 0- 15 degrees active left shoulder abduction. Wharf Worker Goals 1. Adelaide will be modified independent with execution of upper extremity home exercise program with the support of her caregiver(s) utilizing provided written and visual instructions from therapist. - Treatment 1 Descriptor HEP/POC. Adelaide brought in one of her home e-stim units; reviewed placement of pads to facilitate wrist/digit extension. Discussed importance of adherence of pads to skin (trading for new e-stim pads). Photograph of placement of e-stim pads was taken by caregiver. Inquiry about 'butterfly' e-stim use ( alternative home e-stim unit Adelaide has). Discussed bringing in this additional unit to treatment. Adelaide brought in blue pancake digit/ hand brace; dependent w/ donning this brace (donned prior to e-stim use and tone management exercises). Discussed time limitations of caregiver assistance w/ patient and caregiver and focus on current home exercises, using night brace, and home e-stim unit. Recommend following up w/ patient and caregiver. Exercises 6 Descriptor Resistant UE exercises. Elbow ext. 2# TB. 2 x 10. 5 Descriptor Sudanese e-stim to facilitate digit and wrist extension. Intensity 26. 10/10 cycle. x 10 minutes. Skin intact pre- and post- treatment. Active participation w/ e-stim protocol. 4 Descriptor TT exercises. Functional reaching w/ towel. Infront of body. Circles. Sh abd. 1 x 15. 3 Descriptor UE exercises. Scapular retraction. 1 x 10. Sh ext. 1 x 10. Elbow flex. Muscle tapping to facilitate. 1 x 10. 2 Descriptor Active flexion of digits. 1 x 10. 1 Descriptor Tone management at EOM. Hand; weight shifting to the left. Weight shifting forwards and backwards w/ and without elbow flexion. - Assessment Assessment of Improvement Adelaide was accompanied by caregiver to treatment session . See HEP/POC section of note for details. Dependent w/ extending all digits onto flat /tabletop surface; discussed working towards Adelaide's ability to extend digits on her own (as therapist is able to do so in treatment session) versus use of blue pancake splint at this time. Discussed consistent use of night wrist /digit brace and e-stim unit to support tone management and completing already recommended UE exercises on regular basis to determine if progress can be made and/or adjustments to exercises were needed. Overall, good session. Adelaide would likely benefit from outpatient OT to establish appropriate HEP and caregiver training and to address posture, UE range of motion, and provide education to maintain available range of motion. - Plan Therapy Recommendations Continue with Current Program, Advance per Rehabilitation Protocol
--- NOTE | 2021-09-16 14:16 | OT.OP.TRT ---
Visit Care Team Role Provider Type KINJAL Cooper Attending Provider Advanced Triage Clinician Family Provider Primary Care Provider Referring Provider Specialty: Family Practice Address: [address] [place] [address], [facility] Email: [email or web address] Occupational Therapy Treatment Note OT Outpatient Treatment Note - Adult Start: 07/31/21 08:56 Freq: Status: Active Protocol: Document 09/16/21 14:08 AMS (Rec: 09/16/21 14:16 AMS [id number]) OT Outpatient Adult Treatment Note Session Time Visit Start Time 10:30 Visit Stop Time 11:25 Total Visit Minutes 55 Visit Information Visit Number 10/16 Plan of Care Dates 07/29/21 - 10/07/21 Insurance Information Medicare Setting Treatment Setting Outpatient Care Visit Type Note Type Treatment Note General Information General Information Adelaide (or Sofi) is a 51 year- old right hand dominant female referred to outpatient OT by PCP, KINJAL Cooper, secondary to residual effects of stroke that occurred in 2014 after having surgery for brain aneurysm. Brittany was previously been seen in the outpatient setting by this OT; she was d/c to home exercise program with intent of returning to OT for upgrading of HEP. Due to inconsistent caregiver support, Brittany reports that she was inconsistent with doing her exercises. She continues to prefer proximal L sh stabilization brace versus Giv Sameer sling (d/t reported discomfort w/ Giv Sameer sling in right armpit from cyst). Brittany reports inconsistent use of night splint. Brittany is receiving outpatient PT for gait/balance/lower extremity weakness. She is also seeing Dr. Carter for pain management and seeing Dr. Stanton for development of coping skills. - Subjective Identification Type Name Identification Reconciled With Medical Record Observations Adelaide was accompanied by her caregiver to OT treatment session. I am going to [place]. I hope to see my grandkids per Adelaide. My doctor changed my medications. I am going to be seeing her in 30 days for a follow-up. I am supposed to give her feedback. I am having a hard time putting the night splint on. My mom has arthritis in her hands and it is hard for her to help me put it on. Patient/Caregiver Compliance with Home Good Exercise Program Comment w/ support - Objective Objective Measurements Please refer to below for progress towards meeting established goals. Short Term Goals 1. Adelaide will demonstrate improved active range of motion of the left upper extremity: 1a. 0-25 degrees active left shoulder extension. 1b. 0-50 degrees active left shoulder flexion. 1c. 0- 15 degrees active left shoulder abduction. Jail Goals 1. Adelaide will be modified independent with execution of upper extremity home exercise program with the support of her caregiver(s) utilizing provided written and visual instructions from therapist. - Treatment 1 Descriptor HEP/POC. No changes to HEP/POC were made on this treatment date. Exercises 6 Descriptor Resistant UE exercises. Elbow ext. 2# TB. 2 x 15. 5 Descriptor [place] e-stim to facilitate digit and wrist extension. Use of heat. Intensity 26. 10/10 cycle. x 10 minutes. Skin intact pre- and post- treatment. Active participation w/ e-stim protocol. 4 Descriptor TT exercises. Functional reaching w/ towel. Infront of body. Circles. Sh abd. 1 x 15. 3 Descriptor UE exercises. Scapular retraction. 1 x 15. Sh ext. 1 x 15. Elbow flex. Muscle tapping to facilitate. 1 x 15. 2 Descriptor Active flexion of digits. 1 x 10. 1 Descriptor Tone management at EOM. Hand; weight shifting to the left. Weight shifting forwards and backwards w/ and without elbow flexion. - Assessment Assessment of Improvement Adelaide was accompanied by caregiver to treatment session . No changes to HEP/POC were made on this date. Dependent w / extending all digits onto flat/tabletop surface; discussed options to support donning of night splint (e.g., use of heat, tone management, working towards Adelaide's ability to don night splint without splint) given Mother's arthritis/difficulty assisting Adelaide. Increased number of repetitions of UE exercises. This suggests slight improvement w/ endurance/strength. Will need to monitor impact of changes to medications on tone of UE. Overall, good session. Adelaide would likely benefit from outpatient OT to establish appropriate HEP and caregiver training and to address posture, UE range of motion, and provide education to maintain available range of motion. - Plan Therapy Recommendations Continue with Current Program, Advance per Rehabilitation Protocol
--- NOTE | 2021-09-30 15:36 | OT.OP.TRT ---
Visit Care Team Role Provider Type KINJAL Cooper Attending Provider Advanced [employer] Dyer Family Provider Primary Care Provider Referring Provider Specialty: Family Practice Address: [address] [place] [address], [facility] Email: [email or web address] Occupational Therapy Treatment Note OT Outpatient Treatment Note - Adult Start: 07/31/21 08:56 Freq: Status: Active Protocol: Document 09/30/21 15:32 AMS (Rec: 10/01/21 15:36 AMS [id number]) OT Outpatient Adult Treatment Note Session Time Visit Start Time 10:30 Visit Stop Time 11:25 Total Visit Minutes 55 Visit Information Visit Number 11/15 Plan of Care Dates 07/29/21 - 10/07/21 Insurance Information Medicare Setting Treatment Setting Outpatient Care Visit Type Note Type Treatment Note General Information General Information Adelaide (or Sofi) is a 51 year- old right hand dominant female referred to outpatient OT by PCP, KINJAL Cooper, secondary to residual effects of stroke that occurred in 2014 after having surgery for brain aneurysm. Brittany was previously been seen in the outpatient setting by this OT; she was d/c to home exercise program with intent of returning to OT for upgrading of HEP. Due to inconsistent caregiver support, Brittany reports that she was inconsistent with doing her exercises. She continues to prefer proximal L sh stabilization brace versus Giv Sameer sling (d/t reported discomfort w/ Giv Sameer sling in right armpit from cyst). Brittany reports inconsistent use of night splint. Brittany is receiving outpatient PT for gait/balance/lower extremity weakness. She is also seeing Dr. Carter for pain management and seeing Dr. Stanton for development of coping skills. - Subjective Identification Type Name Identification Reconciled With Medical Record Observations Adelaide was accompanied by her caregiver to OT treatment session. No new concerns were reported. Patient/Caregiver Compliance with Home Good Exercise Program Comment w/ support - Objective Objective Measurements Please refer to below for progress towards meeting established goals. Short Term Goals 1. Adelaide will demonstrate improved active range of motion of the left upper extremity: 1a. 0-25 degrees active left shoulder extension. 1b. 0-50 degrees active left shoulder flexion. 1c. 0- 15 degrees active left shoulder abduction. Senior Living Goals 1. Adelaide will be modified independent with execution of upper extremity home exercise program with the support of her caregiver(s) utilizing provided written and visual instructions from therapist. - Treatment 1 Descriptor HEP/POC. Requested that Adelaide position left hand/digits flat on TT surface when seated and practice ranging multiple digits of the left hand at the same time (versus individually). Exercises 6 Descriptor Resistant UE exercises. Elbow ext. 3# TB. 2 x 15. 5 Descriptor Bhutanese e-stim to facilitate digit and wrist extension. Use of heat. Intensity 26. 10/10 cycle. x 10 minutes. Skin intact pre- and post- treatment. Active participation w/ e-stim protocol. 4 Descriptor TT exercises. Functional reaching w/ towel. Infront of body. Circles. Sh abd. 1 x 15. 3 Descriptor UE exercises. Scapular retraction. 1 x 15. Sh ext. 1 x 15. Elbow flex. Muscle tapping to facilitate. 1 x 15. 2 Descriptor Active flexion of digits. 1 x 10. 1 Descriptor Tone management at EOM. Hand; weight shifting to the left. Weight shifting forwards and backwards w/ and without elbow flexion. - Assessment Assessment of Improvement Adelaide was accompanied by caregiver to treatment session . Instruction on self-ranging of hand; recommended positioning left hand flat on TT surface when seated ( maintaining hand on surface for 5 to 10 minutes ( frequently throughout the day) . Reported tendency to individually range digits of the left hand and frequently position digits of the left hand curved over right arm rest of wheelchair. Increased resistance w/ elbow ext exercise. Will need to monitor impact of changes to medications on tone of UE. Overall, good session. Adelaide would likely benefit from outpatient OT to establish appropriate HEP and caregiver training and to address posture, UE range of motion, and provide education to maintain available range of motion. - Plan Therapy Recommendations Continue with Current Program, Advance per Rehabilitation Protocol
--- NOTE | 2021-10-07 13:24 | OT.OPPOC ---
Physical, Occupational & Speech Therapy At [facility] Brittany Gastelum [id number] 1970 Visit Care Team Role Provider Type KINJAL Cooper Attending Provider Advanced Ship Captain Family Provider Primary Care Provider Referring Provider Address: [address] [place] [address], [id number] Occupational Therapy Plan of Care OT Outpatient Adult Evaluation Start: 07/31/21 08:56 Freq: Status: Active Protocol: Document 07/29/21 15:30 AMS (Rec: 07/31/21 09:27 AMS [id number]) General Information Session Time Visit Start Time 10:30 Visit Stop Time 11:15 Total Visit Minutes 45 Visit Information Visit Number 05/18 Plan of Care Dates 07/29/21 - 10/07/21 Insurance Information Medicare Setting Treatment Setting Outpatient Care Visit Type Note Type Initial Evaluation Goals Treatment Treatment Weight shifting onto left hand while seated at mat; fingers come over edge of the mat. Active elbow extension. Reviewed posture; scapular pinches. Short Term Goals Short Term Goals 1. Adelaide will demonstrate improved active range of motion of the left upper extremity: 1a. 0-25 degrees active left shoulder extension. 1b. 0-50 degrees active left shoulder flexion. 1c. 0- 15 degrees active left shoulder abduction. Custodial Goals Community Associate Goals 1. Adelaide will be modified independent with execution of upper extremity home exercise program with the support of her caregiver(s) utilizing provided written and visual instructions from therapist. Assessment/Plan Assessment Treatment Assessment Adelaide (or Sofi) is a 51 year- old right hand dominant female referred to outpatient OT by PCP, KINJAL Cooper, secondary to residual effects of stroke that occurred in 2014 after having surgery for brain aneurysm. Brittany was previously been seen in the outpatient setting by this OT; she was d/c to home exercise program with intent of returning to OT for upgrading of HEP. Due to inconsistent caregiver support, Brittany reports that she was inconsistent with doing her exercises. She continues to prefer proximal L sh stabilization brace versus Giv Sameer sling (d/t reported discomfort w/ Giv Sameer sling in right armpit from cyst). Brittany reports inconsistent use of night splint. Brittany is receiving outpatient PT for gait/balance/lower extremity weakness. She is also seeing Dr. Carter for pain management and seeing Dr. Stanton for development of coping skills. Brittany completed Pain Assessment Grid and indicated 6 out of 10 on the pain scale relative to right dorsal wrist . Will need to have patient complete updated body pain grid at time of next session. She obtained a score of 79.55 on the QuickDASH UE Outcome Measure. Goniometer Measurements: R sh/elbow/wrist /fingers AROM WFL. 0-25 degrees active L sh flex; 0-90 degrees passive L sh flex; 0- 0 degrees active L sh ext; 0- 50 degrees passive L sh ext; 0 -0 degrees active L sh abd; 0- 90 degrees passive L sh abd; IR active WFL w/ blocking; 0-0 degrees active L sh ER; 0-30 degrees active L sh ER; 0-0 degrees active L elbow flex; 0 -130 degrees passive L elbow flex; 0-130 degrees active L elbow ext; 0-0 degrees active L forearm pronation; WNL passive L forearm pronation; 0 -0 degrees active L forearm supination; WNL passive L forearm supination. No active ROM of L wrist. Passive AROM L wrist WFL. When fingers extended and to flex into fisted position; (-) active extension of digits of the L hand. Assist for positioning of the left upper extremity to facilitate weight bearing; tolerates better w/ fingers positioned over 'edge' of seated surface. Report of inclusion of the left hand/ upper extremity w/ clothing management w/ toileting and positioning L hand/UE on TT surface when engaging in art based tasks on vertical surface. Dependence on right upper extremity. Impaired posture. Decreased orientation ot midline. Impaired sensation of the left upper extremity. Brittany would likely benefit from outpatient OT to establish appropriate HEP and caregiver training and to address posture, UE range of motion, and provide education to maintain available range of motion. Plan Comment 10 weeks Comment 1 to 2 times per week Therapeutic Contents Active Range of Motion, Adaptive Equipment Education, Client Education,Cognitive Skills Development,Functional Activities,Home Exercise Program,Joint Protection, Manual Therapy,Education, Neurodevelopment Treatment, Neuromuscular Re-Education, Self-Care,Stretching/ Flexibility Activities, Therapeutic Activities, Therapeutic Exercises, Modalities,Sensory Re- education Modalities As Needed,As Prescribed Types of Modalities E-Stim,Ultrasound Additional Types of Modalities Hot pack/Cold pack Sensory Assessment Sensory Profile2 Functional Wrist/Hand Scan Hand Side OT Outpatient Treatment Note - Adult Start: 07/31/21 08:56 Freq: Status: Active Protocol: Document 10/07/21 13:12 AMS (Rec: 10/07/21 13:24 AMS [id number]) OT Outpatient Adult Treatment Note Session Time Visit Start Time 10:30 Visit Stop Time 11:25 Total Visit Minutes 55 Visit Information Visit Number 05/18 Plan of Care Dates 10/07/21 - 12/30/21 Insurance Information Medicare Setting Treatment Setting Outpatient Care Visit Type Note Type Treatment Note General Information General Information Adelaide (or Sofi) is a 51 year- old right hand dominant female referred to outpatient OT by PCP, KINJAL Cooper, secondary to residual effects of stroke that occurred in 2014 after having surgery for brain aneurysm. Brittany was previously been seen in the outpatient setting by this OT; she was d/c to home exercise program with intent of returning to OT for upgrading of HEP. Due to inconsistent caregiver support, Brittany reports that she was inconsistent with doing her exercises. She continues to prefer proximal L sh stabilization brace versus Giv Sameer sling (d/t reported discomfort w/ Giv Sameer sling in right armpit from cyst). Brittany reports inconsistent use of night splint. Brittany is receiving outpatient PT for gait/balance/lower extremity weakness. She is also seeing Dr. Carter for pain management and seeing Dr. Stanton for development of coping skills. - Subjective Identification Type Name Identification Reconciled With Medical Record Observations Adelaide was accompanied by her caregiver, Kateryna, to OT treatment session. No new concerns were reported. Patient/Caregiver Compliance with Home Good Exercise Program Comment w/ support - Objective Objective Measurements Please refer to below for progress towards meeting established goals. Short Term Goals 1. Adelaide will demonstrate improved active range of motion of the left upper extremity: 1a. 0-25 degrees active left shoulder extension. 10/07/21 = 50% met; 0-20 degrees 1b. 0-50 degrees active left shoulder flexion. 10/07/21 = 50% met; 0-40 degrees 1c. 0- 15 degrees active left shoulder abduction. 10/07/21 = 25% met; 0-5 degrees Custodial Goals 1. Adelaide will be modified independent with execution of upper extremity home exercise program with the support of her caregiver(s) utilizing provided written and visual instructions from therapist. 2. Adelaide will be able to don personal night splint for distal left upper extremity, without assistance, utilizing provided written and visual instructions and compensatory strategies, based on verbal caregiver and self-report. - Treatment 1 Descriptor HEP/POC. Discussed personal backpack options. Obtained pictures to support ability to don distal L UE splint. Exercises 6 Descriptor Resistant UE exercises. Elbow ext. 3# TB. 2 x 15. 5 Descriptor Croatian e-stim to facilitate digit and wrist extension. Use of heat. Intensity 26. 10/10 cycle. x 10 minutes. Skin intact pre- and post- treatment. Active participation w/ e-stim protocol. 4 Descriptor TT exercises. Functional reaching w/ towel. Infront of body. Circles. Sh abd. 1 x 15. 3 Descriptor UE exercises. Scapular retraction. 1 x 15. Sh ext. 1 x 15. Elbow flex. Muscle tapping to facilitate. 1 x 15. 2 Descriptor Active flexion of digits. 1 x 10. 1 Descriptor Tone management at EOM. Hand; weight shifting to the left. Weight shifting forwards and backwards w/ and without elbow flexion. - Assessment Assessment of Improvement Adelaide has made slight progress with outpatient occupational therapy; she has returned to a limited UE home exercise program w/ support of her caregiver and is demonstrating some improvements with left upper extremity active range of motion. She continues to require support with ranging of her distal upper extremity despite education and practicing in treatment session. She also continues to require support w/ donning L distal upper extremity night splint; therapist practiced this skill in today's treatment session and took photographs to support carry- over/Adelaide's ability to complete this on her own. Will look to add written dialogue to images at next treatment session. Adelaide would likely benefit from outpatient OT to establish appropriate HEP and caregiver training and to address posture, UE range of motion, and provide education to maintain available range of motion. - Plan Therapy Recommendations Continue with Current Program, Advance per Rehabilitation Protocol Frequency of Treatment Once a Week Therapeutic Contents Active Range of Motion, Adaptive Equipment Education, Client Education,Cognitive Skills Development,Functional Activities,Home Exercise Program,Joint Protection, Manual Therapy,Education, Neurodevelopment Treatment, Neuromuscular Re-Education, Self-Care,Therapeutic Activities,Therapeutic Exercises,Modalities,Sensory Re-education Modalities As Needed,As Prescribed Types of Modalities E-Stim,T.E.N. Stimulation,TENS Placement/Application, Ultrasound Additional Types of Modalities Hot pack/cold pack/contrast baths/paraffin Electronically Signed by: Reema Bhatia OT 10/07/21 [id number] If you are in agreement with this Plan of Care, please return a signed and dated copy. I have reviewed this Plan of Care and certify that the skilled therapy services above are required to meet the patient?s needs. Physician Signature Date Printed Name and Credentials Clinical Instructor Signature Printed Name and Credentials
--- NOTE | 2021-10-13 16:00 | OT.OP.TRT ---
Visit Care Team Role Provider Type KINJAL Cooper Attending Provider Advanced Herb Doctor Family Provider Primary Care Provider Referring Provider Specialty: Family Practice Address: [address] [place] [address], [id number] Email: [email or web address] Occupational Therapy Treatment Note OT Outpatient Treatment Note - Adult Start: 07/31/21 08:56 Freq: Status: Active Protocol: Document 10/13/21 15:49 AMS (Rec: 10/14/21 15:59 AMS [id number]) OT Outpatient Adult Treatment Note Session Time Visit Start Time 10:30 Visit Stop Time 11:25 Total Visit Minutes 55 Visit Information Visit Number 06/18 Plan of Care Dates 10/07/21 - 12/30/21 Insurance Information Medicare Setting Treatment Setting Outpatient Care Visit Type Note Type Treatment Note General Information General Information Adelaide (or Sofi) is a 51 year- old right hand dominant female referred to outpatient OT by PCP, KINJAL Cooper, secondary to residual effects of stroke that occurred in 2014 after having surgery for brain aneurysm. Brittany was previously been seen in the outpatient setting by this OT; she was d/c to home exercise program with intent of returning to OT for upgrading of HEP. Due to inconsistent caregiver support, Brittany reports that she was inconsistent with doing her exercises. She continues to prefer proximal L sh stabilization brace versus Giv Sameer sling (d/t reported discomfort w/ Giv Sameer sling in right armpit from cyst). Brittany reports inconsistent use of night splint. Brittany is receiving outpatient PT for gait/balance/lower extremity weakness. She is also seeing Dr. Carter for pain management and seeing Dr. Stanton for development of coping skills. - Subjective Identification Type Name Identification Reconciled With Medical Record Observations Adelaide was accompanied by her caregiver, Kateryna, to OT treatment session. No new concerns were reported. I gave her this cross body purse to use for now. She has her phone and wallet in here per Kateryna. Patient/Caregiver Compliance with Home Good Exercise Program Comment w/ support - Objective Objective Measurements Please refer to below for progress towards meeting established goals. Short Term Goals 1. Adelaide will demonstrate improved active range of motion of the left upper extremity: 1a. 0-25 degrees active left shoulder extension. 10/07/21 = 50% met; 0-20 degrees 1b. 0-50 degrees active left shoulder flexion. 10/07/21 = 50% met; 0-40 degrees 1c. 0- 15 degrees active left shoulder abduction. 10/07/21 = 25% met; 0-5 degrees Half-Way Goals 1. Adelaide will be modified independent with execution of upper extremity home exercise program with the support of her caregiver(s) utilizing provided written and visual instructions from therapist. 2. Adelaide will be able to don personal night splint for distal left upper extremity, without assistance, utilizing provided written and visual instructions and compensatory strategies, based on verbal caregiver and self-report. - Treatment 1 Descriptor HEP/POC. Provided patient and caregiver w/ photographs taken at previous treatment session . Discussed use of notebook for storage of photos w/ addition of written instructions/cues to be completed in the home by patient and caregiver. Discussed recommended orientation of photographs within notebook to support orientation. Splint was not brought to today's treatment session; thus, unable to practice. Exercises 6 Descriptor Resistant UE exercises. Elbow ext. 3# TB. 2 x 15. 5 Descriptor Liberian e-stim to facilitate elbow flexion. Intensity 29. 10/10 cycle. x 10 minutes. Skin intact pre- and post- treatment. Active participation w/ e-stim protocol. 4 Descriptor TT exercises. Functional reaching w/ towel. Infront of body. Circles. Sh abd. 1 x 15. 3 Descriptor UE exercises. Scapular retraction. 1 x 15. Sh ext. 1 x 15. Elbow flex. Muscle tapping to facilitate. 1 x 15. 2 Descriptor Active flexion of digits. 1 x 10. 1 Descriptor Tone management at EOM. Hand; weight shifting to the left. Weight shifting forwards and backwards w/ and without elbow flexion. - Assessment Assessment of Improvement Adelaide was accompanied by Kateryna to outpatient treatment session. Adelaide required less support with ranging of her distal upper extremity; instruction on positioning of digits on TT surface --> w/ subsequent adjustment at wrist /proximal forearm level. Provided patient and caregiver w/ photographs to support Adelaide's ability to don night splint. Will need to review in future as needed. Reviewed importance of execution of home exercise program and attending to left upper extremity. Overall, good session. Adelaide would likely benefit from outpatient OT to establish appropriate HEP and caregiver training and to address posture, UE range of motion, and provide education to maintain available range of motion. - Plan Therapy Recommendations Continue with Current Program, Advance per Rehabilitation Protocol
--- NOTE | 2021-10-20 15:30 | OT.OP.TRT ---
Visit Care Team Role Provider Type KINJAL Cooper Attending Provider Advanced Health And Safety Technician Family Provider Primary Care Provider Referring Provider Specialty: Family Practice Address: [address] [place] [address], [id number] Email: [email or web address] Occupational Therapy Treatment Note OT Outpatient Treatment Note - Adult Start: 07/31/21 08:56 Freq: Status: Active Protocol: Document 10/20/21 15:30 AMS (Rec: 10/21/21 11:40 AMS [id number]) OT Outpatient Adult Treatment Note Session Time Visit Start Time 09:30 Visit Stop Time 10:25 Total Visit Minutes 55 Visit Information Visit Number 07/16 Plan of Care Dates 10/07/21 - 12/30/21 Insurance Information Medicare Setting Treatment Setting Outpatient Care Visit Type Note Type Treatment Note General Information General Information Adelaide (or Sofi) is a 51 year- old right hand dominant female referred to outpatient OT by PCP, KINJAL Cooper, secondary to residual effects of stroke that occurred in 2014 after having surgery for brain aneurysm. Brittany was previously been seen in the outpatient setting by this OT; she was d/c to home exercise program with intent of returning to OT for upgrading of HEP. Due to inconsistent caregiver support, Brittany reports that she was inconsistent with doing her exercises. She continues to prefer proximal L sh stabilization brace versus Giv Sameer sling (d/t reported discomfort w/ Giv Sameer sling in right armpit from cyst). Brittany reports inconsistent use of night splint. Brittany is receiving outpatient PT for gait/balance/lower extremity weakness. She is also seeing Dr. Carter for pain management and seeing Dr. Stanton for development of coping skills. - Subjective Identification Type Name Identification Reconciled With Medical Record Observations Adelaide was accompanied by her caregiver, Kateryna, to OT treatment session. What kind of pillow should I have. I am afraid of falling when I sleep on my side per Adelaide. I haven't been very good about using the pictures and using my night splint. The pictures are sitting in a folder on my table per Adelaide. My doctor stopped taping my medication for my arm per Adelaide. Patient/Caregiver Compliance with Home Good Exercise Program Comment w/ support - Objective Objective Measurements Please refer to below for progress towards meeting established goals. Short Term Goals 1. Adelaide will demonstrate improved active range of motion of the left upper extremity: 1a. 0-25 degrees active left shoulder extension. 10/07/21 = 50% met; 0-20 degrees 1b. 0-50 degrees active left shoulder flexion. 10/07/21 = 50% met; 0-40 degrees 1c. 0- 15 degrees active left shoulder abduction. 10/07/21 = 25% met; 0-5 degrees Acute Care Assistant Goals 1. Adelaide will be modified independent with execution of upper extremity home exercise program with the support of her caregiver(s) utilizing provided written and visual instructions from therapist. 2. Adelaide will be able to don personal night splint for distal left upper extremity, without assistance, utilizing provided written and visual instructions and compensatory strategies, based on verbal caregiver and self-report. - Treatment 1 Descriptor HEP/POC. Provided patient and caregiver w/ photographs taken at previous treatment session in clear 3-ring sheets; 3- ring sheets attached together via single book ring provided by therapist. Night splint was not brought to today's treatment session; thus, unable to practice. Requested that patient and caregiver add 'written' instructions based on time constraints w/ new set -up. May have to revisit and complete w/ patient in session . Reviewed importance of regular use of night splint and daily completion of UE range/tone management exercises/attending to upper extremity. Exercises 6 Descriptor Resistant UE exercises. Elbow ext. 3# TB. 2 x 15. 5 Descriptor Turkish e-stim to facilitate wrist/digit. Intensity 30. 10/ 10 cycle. x 10 minutes. Skin intact pre- and post- treatment. Active participation w/ e-stim protocol. 4 Descriptor TT exercises. Functional reaching w/ towel. Infront of body. Circles. Sh abd. 1 x 15. 3 Descriptor UE exercises. Scapular retraction. 1 x 15. Sh ext. 1 x 15. Elbow flex. Muscle tapping to facilitate. 1 x 15. 2 Descriptor Active flexion of digits. 1 x 10. 1 Descriptor Tone management at EOM. Hand; weight shifting to the left. Weight shifting forwards and backwards w/ and without elbow flexion. - Assessment Assessment of Improvement Adelaide was accompanied by Kateryna to outpatient treatment session. Concerns/questions about positioning of body for sleep; outpatient PT to review w/ patient. Reviewed importance of execution of home exercise program and attending to left upper extremity; reviewed importance of consistent use of night splint for distal L UE. Provided alternative set-up/ storage of instructions for donning of night splint. Based on time constraints/and splint not being brought to session, did not add written instructions. Will need to follow-up and complete in outpatient treatment session. Inconsistent w/ carry-over of upper extremity recommendations. Overall, fair session. Adelaide would likely benefit from outpatient OT to establish appropriate HEP and caregiver training and to address posture, UE range of motion, and provide education to maintain available range of motion. - Plan Therapy Recommendations Continue with Current Program, Advance per Rehabilitation Protocol
--- NOTE | 2021-10-27 13:35 | OT.OP.TRT ---
Visit Care Team Role Provider Type KINJAL Cooper Attending Provider [employer] Cashier Family Provider Primary Care Provider Referring Provider Specialty: Family Practice Address: [address] [place] [address], [facility] Email: [email or web address] Occupational Therapy Treatment Note OT Outpatient Treatment Note - Adult Start: 07/31/21 08:56 Freq: Status: Active Protocol: Document 10/27/21 13:28 AMS (Rec: 10/27/21 13:35 AMS [id number]) OT Outpatient Adult Treatment Note Session Time Visit Start Time 10:30 Visit Stop Time 11:25 Total Visit Minutes 55 Visit Information Visit Number 09/15 Plan of Care Dates 10/07/21 - 12/30/21 Insurance Information Medicare Setting Treatment Setting Outpatient Care Visit Type Note Type Treatment Note General Information General Information Adelaide (or Sofi) is a 51 year- old right hand dominant female referred to outpatient OT by PCP, KINJAL Cooper, secondary to residual effects of stroke that occurred in 2014 after having surgery for brain aneurysm. Brittany was previously been seen in the outpatient setting by this OT; she was d/c to home exercise program with intent of returning to OT for upgrading of HEP. Due to inconsistent caregiver support, Brittany reports that she was inconsistent with doing her exercises. She continues to prefer proximal L sh stabilization brace versus Giv Sameer sling (d/t reported discomfort w/ Giv Sameer sling in right armpit from cyst). Brittany reports inconsistent use of night splint. Brittany is receiving outpatient PT for gait/balance/lower extremity weakness. She is also seeing Dr. Carter for pain management and seeing Dr. Stanton for development of coping skills. - Subjective Identification Type Name Identification Reconciled With Medical Record Observations Adelaide was accompanied by her caregiver, Kateryna, to OT treatment session. No, I haven't been putting the night splint on per Adelaide. Patient/Caregiver Compliance with Home Good Exercise Program Comment w/ support - Objective Objective Measurements Please refer to below for progress towards meeting established goals. Short Term Goals 1. Adelaide will demonstrate improved active range of motion of the left upper extremity: 1a. 0-25 degrees active left shoulder extension. 10/07/21 = 50% met; 0-20 degrees 1b. 0-50 degrees active left shoulder flexion. 10/07/21 = 50% met; 0-40 degrees 1c. 0- 15 degrees active left shoulder abduction. 10/07/21 = 25% met; 0-5 degrees Log Skidder Goals 1. Adelaide will be modified independent with execution of upper extremity home exercise program with the support of her caregiver(s) utilizing provided written and visual instructions from therapist. 2. Adelaide will be able to don personal night splint for distal left upper extremity, without assistance, utilizing provided written and visual instructions and compensatory strategies, based on verbal caregiver and self-report. - Treatment 1 Descriptor HEP/POC. Night splint was not brought into today's treatment session. Reviewed importance of regular use of night splint and daily completion of UE range/tone management exercises/attending to upper extremity. Active problem solving w/ patient and caregiver to support compliance; discussed placement of photos and splint within the home vs use of alarms on personal cell phone vs use of calendar within the home. Provided education to caregiver to support execution of AROM UE exercises; demonstrated hand hold to prevent dragging of hand/arm and positioning of contralateral hand as visual target. All questions were answered. Exercises 6 Descriptor Resistant UE exercises. Elbow ext. 3# TB. 2 x 15. 5 Descriptor Luxembourger e-stim to facilitate wrist/digit extension. Intensity 30. 10/10 cycle. x 10 minutes. Skin intact pre- and post- treatment. Active participation w/ e-stim protocol. 4 Descriptor TT exercises. Functional reaching w/ towel. Infront of body. Circles. Sh abd. 1 x 15. 3 Descriptor UE exercises. Scapular retraction. 1 x 15. Sh ext. 1 x 15. Elbow flex. Muscle tapping to facilitate. 1 x 15. Sh flex. 1 x 15. Sh abd. 1 x 15. 2 Descriptor Active flexion of digits. 1 x 10. 1 Descriptor Tone management at EOM. Hand; weight shifting to the left. Weight shifting forwards and backwards w/ and without elbow flexion. - Assessment Assessment of Improvement Adelaide was accompanied by Kateryna to outpatient treatment session. Poor compliance w/ use of night splint at this time; reviewed importance of consistent use of night splint for distal L UE. Actively problem solved w/ patient and caregiver to support carry- over. Reviewed AROM exercises w/ patient and caregiver based on questions; caregiver verbalized that all questions were answered. Poor weight bearing through left upper extremity; report of icing L shoulder (and R shoulder) daily at night time d/t pain/ discomfort. Overall, fair session. Adelaide would likely benefit from outpatient OT to establish appropriate HEP and caregiver training and to address posture, UE range of motion, and provide education to maintain available range of motion. - Plan Therapy Recommendations Continue with Current Program, Advance per Rehabilitation Protocol
--- NOTE | 2021-11-03 14:47 | OT.OP.TRT ---
Visit Care Team Role Provider Type KINJAL Cooper Attending Provider Advanced Aerodynamic Consultant Family Provider Primary Care Provider Referring Provider Specialty: Family Practice Address: [address] [place] [address], [facility] Email: [email or web address] Occupational Therapy Treatment Note OT Outpatient Treatment Note - Adult Start: 07/31/21 08:56 Freq: Status: Active Protocol: Document 11/03/21 14:42 AMS (Rec: 11/03/21 14:47 AMS [id number]) OT Outpatient Adult Treatment Note Session Time Visit Start Time 10:30 Visit Stop Time 11:25 Total Visit Minutes 55 Visit Information Visit Number 10/16 Plan of Care Dates 10/07/21 - 12/30/21 Insurance Information Medicare Setting Treatment Setting Outpatient Care Visit Type Note Type Treatment Note General Information General Information Adelaide (or Sofi) is a 51 year- old right hand dominant female referred to outpatient OT by PCP, KINJAL Cooper, secondary to residual effects of stroke that occurred in 2014 after having surgery for brain aneurysm. Brittany was previously been seen in the outpatient setting by this OT; she was d/c to home exercise program with intent of returning to OT for upgrading of HEP. Due to inconsistent caregiver support, Brittany reports that she was inconsistent with doing her exercises. She continues to prefer proximal L sh stabilization brace versus Giv Sameer sling (d/t reported discomfort w/ Giv Sameer sling in right armpit from cyst). Brittany reports inconsistent use of night splint. Brittany is receiving outpatient PT for gait/balance/lower extremity weakness. She is also seeing Dr. Carter for pain management and seeing Dr. Stanton for development of coping skills. - Subjective Identification Type Name Identification Reconciled With Medical Record Observations Adelaide was accompanied by her caregiver, Kateryna, to OT treatment session. I wore the night splint 3 nights. Kateryna helped me to remember by putting it on the table. I didn't have to use the instructions or anything. I put it right on per Adelaide. Patient/Caregiver Compliance with Home Good Exercise Program Comment w/ support - Objective Objective Measurements Please refer to below for progress towards meeting established goals. Short Term Goals 1. Adelaide will demonstrate improved active range of motion of the left upper extremity: 1a. 0-25 degrees active left shoulder extension. 10/07/21 = 50% met; 0-20 degrees 1b. 0-50 degrees active left shoulder flexion. 10/07/21 = 50% met; 0-40 degrees 1c. 0- 15 degrees active left shoulder abduction. 10/07/21 = 25% met; 0-5 degrees Retirement Goals 1. Adelaide will be modified independent with execution of upper extremity home exercise program with the support of her caregiver(s) utilizing provided written and visual instructions from therapist. 2. Adelaide will be able to don personal night splint for distal left upper extremity, without assistance, utilizing provided written and visual instructions and compensatory strategies, based on verbal caregiver and self-report. - Treatment 1 Descriptor HEP/POC. Reviewed importance of regular use of night splint ; discussed increasing compliance to 5 nights given wearing splint x 3 nights previous night. Reviewed importance of daily completion of UE range/tone management exercises/attending to upper extremity. All questions were answered. Exercises 6 Descriptor Resistant UE exercises. Elbow ext. 3# TB. 2 x 15. 5 Descriptor Croatian e-stim to facilitate wrist/digit extension. Intensity 24. 10/10 cycle. x 10 minutes. Skin intact pre- and post- treatment. Active participation w/ e-stim protocol. 4 Descriptor TT exercises. Functional reaching w/ towel. Infront of body. Circles. Sh abd. 1 x 15. 3 Descriptor UE exercises. Scapular retraction. 1 x 15. Sh ext. 1 x 15. Elbow flex. Muscle tapping to facilitate. 1 x 15. Sh flex. 1 x 15. Sh abd. 1 x 15. 2 Descriptor Active flexion of digits. 1 x 10. 1 Descriptor Tone management at EOM. Hand; weight shifting to the left. Weight shifting forwards and backwards w/ and without elbow flexion at EOM. Weight shifting at TT. - Assessment Assessment of Improvement Adelaide was accompanied by Kateryna to outpatient treatment session. Improved compliance w/ use of night splint at this time; wearing of night splint x 3 nights. Discussed increasing compliance to 5 nights. Adelaide reported that Kateryna 'noticed a difference but I didn't' with use of the night splints. Poor weight bearing through left upper extremity; introduced weight bearing/weight shifting/ positioning of left hand on TT . Report of icing L shoulder ( and R shoulder) daily at night time d/t pain/discomfort. Overall, fair ashley. Adelaide would likely benefit from outpatient OT to establish appropriate HEP and caregiver training and to address posture, UE range of motion, and provide education to maintain available range of motion. - Plan Therapy Recommendations Continue with Current Program, Advance per Rehabilitation Protocol
--- NOTE | 2021-11-20 11:59 | OT.OP.TRT ---
Visit Care Team Role Provider Type KINJAL Cooper Attending Provider Advanced [employer] Tinter Family Provider Primary Care Provider Referring Provider Specialty: Family Practice Address: [address] [place] [address], [id number] Email: [email or web address] Occupational Therapy Treatment Note OT Outpatient Treatment Note - Adult Start: 07/31/21 08:56 Freq: Status: Active Protocol: Document 11/20/21 11:52 AMS (Rec: 11/20/21 11:59 AMS [id number]) OT Outpatient Adult Treatment Note Session Time Visit Start Time 10:30 Visit Stop Time 11:25 Total Visit Minutes 55 Visit Information Visit Number 11/15 Plan of Care Dates 10/07/21 - 12/30/21 Insurance Information Medicare Setting Treatment Setting Outpatient Care Visit Type Note Type Treatment Note General Information General Information Adelaide (or Sofi) is a 51 year- old right hand dominant female referred to outpatient OT by PCP, KINJAL Cooper, secondary to residual effects of stroke that occurred in 2014 after having surgery for brain aneurysm. Brittany was previously been seen in the outpatient setting by this OT; she was d/c to home exercise program with intent of returning to OT for upgrading of HEP. Due to inconsistent caregiver support, Brittany reports that she was inconsistent with doing her exercises. She continues to prefer proximal L sh stabilization brace versus Giv Sameer sling (d/t reported discomfort w/ Giv Sameer sling in right armpit from cyst). Brittany reports inconsistent use of night splint. Brittany is receiving outpatient PT for gait/balance/lower extremity weakness. She is also seeing Dr. Carter for pain management and seeing Dr. Stanton for development of coping skills. - Subjective Identification Type Name Identification Reconciled With Medical Record Observations Adelaide was accompanied by her caregiver, Kateryna, to OT treatment session. Patient/Caregiver Compliance with Home Good Exercise Program Comment w/ support - Objective Objective Measurements Please refer to below for progress towards meeting established goals. Short Term Goals 1. Adelaide will demonstrate improved active range of motion of the left upper extremity: 1a. 0-25 degrees active left shoulder extension. 10/07/21 = 50% met; 0-20 degrees 1b. 0-50 degrees active left shoulder flexion. 10/07/21 = 50% met; 0-40 degrees 1c. 0- 15 degrees active left shoulder abduction. 10/07/21 = 25% met; 0-5 degrees Residential Goals 1. Adelaide will be modified independent with execution of upper extremity home exercise program with the support of her caregiver(s) utilizing provided written and visual instructions from therapist. 2. Adelaide will be able to don personal night splint for distal left upper extremity, without assistance, utilizing provided written and visual instructions and compensatory strategies, based on verbal caregiver and self-report. - Treatment 1 Descriptor HEP/POC. Reviewed importance of regular use of night splint ; discussed increasing compliance to 5 nights given wearing splint x 3 nights previous night. Reviewed importance of daily completion of UE range/tone management exercises/attending to upper extremity. Discussed use of Mother's free-standing pedal bike for UEs if set-up on table w/ possible use of dycem . Reviewed active participation w/ use of home e -stim units. All questions were answered. Exercises 7 Descriptor Pedal arm bike. Seated. x 10 minutes. Phys assist provided by therapist at 5 min to assist w/ maintenance of L hand ball thread machine tender; phys assist also provided to support motor planning ( increased reliance on left UE w/ elbow extension component of cycle). 6 Descriptor Resistant UE exercises. Elbow ext. 3# TB. 2 x 15. 5 Descriptor Togolese e-stim to facilitate sh flex/elbow flex. Intensity 24. 10/10 cycle. x 10 minutes. Skin intact pre- and post- treatment. Active participation w/ e-stim protocol. 4 Descriptor TT exercises. Functional reaching w/ towel. Infront of body. Circles. Sh abd. 1 x 15. 3 Descriptor UE exercises. Scapular retraction. 1 x 15. Sh ext. 1 x 15. Elbow flex. Muscle tapping to facilitate. 1 x 15. Sh flex. 1 x 15. Sh abd. 1 x 15. 2 Descriptor Active flexion of digits. 1 x 10. 1 Descriptor Tone management at EOM. Hand; weight shifting to the left. Weight shifting forwards and backwards w/ and without elbow flexion at EOM. Weight shifting at TT. - Assessment Assessment of Improvement Adelaide was accompanied by Kateryna caregiver, to outpatient treatment session. (-) changes re: compliance w/ night splint use. Use of pedal bike on TT w/ positive patient response. Increased focus on sh AROM, elbow flexion. Report of icing L shoulder (and R shoulder) daily at night time d/t pain/ discomfort. Overall, fair session. Adelaide would likely benefit from outpatient OT to establish appropriate HEP and caregiver training and to address posture, UE range of motion, and provide education to maintain available range of motion. - Plan Therapy Recommendations Continue with Current Program, Advance per Rehabilitation Protocol
--- NOTE | 2021-11-27 12:06 | OT.OP.TRT ---
Visit Care Team Role Provider Type KINJAL Cooper Attending Provider Advanced Termite Treater Helper Family Provider Primary Care Provider Referring Provider Specialty: Family Practice Address: [address] [place] [address], [address] Email: [email or web address] Occupational Therapy Treatment Note OT Outpatient Treatment Note - Adult Start: 07/31/21 08:56 Freq: Status: Active Protocol: Document 11/27/21 11:53 AMS (Rec: 11/27/21 12:06 AMS [id number]) OT Outpatient Adult Treatment Note Session Time Visit Start Time 10:30 Visit Stop Time 11:25 Total Visit Minutes 55 Visit Information Visit Number 12/16 Plan of Care Dates 10/07/21 - 12/30/21 Insurance Information Medicare Setting Treatment Setting Outpatient Care Visit Type Note Type Treatment Note General Information General Information Adelaide (or Sofi) is a 51 year- old right hand dominant female referred to outpatient OT by PCP, KINJAL Cooper, secondary to residual effects of stroke that occurred in 2014 after having surgery for brain aneurysm. Brittany was previously been seen in the outpatient setting by this OT; she was d/c to home exercise program with intent of returning to OT for upgrading of HEP. Due to inconsistent caregiver support, Brittany reports that she was inconsistent with doing her exercises. She continues to prefer proximal L sh stabilization brace versus Giv Sameer sling (d/t reported discomfort w/ Giv Sameer sling in right armpit from cyst). Brittany reports inconsistent use of night splint. Brittany is receiving outpatient PT for gait/balance/lower extremity weakness. She is also seeing Dr. Carter for pain management and seeing Dr. Stanton for development of coping skills. - Subjective Identification Type Name Identification Reconciled With Medical Record Observations Adelaide was accompanied by her caregiver, Kateryna, to OT treatment session. I used the brace last night. She has been leaving it on my bed and it has been working per Adelaide. Patient/Caregiver Compliance with Home Good Exercise Program Comment w/ support - Objective Objective Measurements Please refer to below for progress towards meeting established goals. Short Term Goals 1. Adelaide will demonstrate improved active range of motion of the left upper extremity: 1a. 0-25 degrees active left shoulder extension. 10/07/21 = 50% met; 0-20 degrees 1b. 0-50 degrees active left shoulder flexion. 10/07/21 = 50% met; 0-40 degrees 1c. 0- 15 degrees active left shoulder abduction. 10/07/21 = 25% met; 0-5 degrees Custodial Goals 1. Adelaide will be modified independent with execution of upper extremity home exercise program with the support of her caregiver(s) utilizing provided written and visual instructions from therapist. 2. Adelaide will be able to don personal night splint for distal left upper extremity, without assistance, utilizing provided written and visual instructions and compensatory strategies, based on verbal caregiver and self-report. - Treatment 1 Descriptor HEP/POC. Instructed in wrist/ digit flexion stretch w/ use of table/edge of table; practiced in session. Reviewed importance of regular use of night splint; discussed increasing compliance to 5 nights given wearing splint. Reviewed importance of daily completion of UE range/tone management exercises/attending to upper extremity. Discussed use of Mother's free-standing pedal bike for UEs if set-up on table w/ possible use of dycem. Reviewed active participation w/ use of home e -stim units. All questions were answered. Exercises 7 Descriptor Pedal arm bike. Seated. x 7 minutes. Intermittent phys assist provided to help sustain L project control manager on handle. 5 Descriptor Prydeinig e-stim to facilitate elbow flex. Intensity 31. 10/ 10 cycle. x 10 minutes. Skin intact pre- and post- treatment. Active participation w/ e-stim protocol. 4 Descriptor TT exercises. Functional reaching w/ towel. Infront of body. Circles. Sh abd. 1 x 15. 3 Descriptor UE exercises. Scapular retraction. 1 x 15. Sh ext. 1 x 15. Elbow flex. Muscle tapping to facilitate. 1 x 15. Sh flex. 1 x 15. Sh abd. 1 x 15. 1 Descriptor Tone management at EOM. Hand; weight shifting to the left. Weight shifting forwards and backwards w/ and without elbow flexion at EOM. Weight shifting at TT. - Assessment Assessment of Improvement Adelaide was accompanied by Kateryna, caregiver, to outpatient treatment session. Increased compliance w/ night splint use per patient report w/ splint being 'left on bed'. Use of pedal bike on TT x 7 minutes; (+) patient response. Introduced wrist/digit flexor stretch w/ use of edge of table; required min phys assist from therapist to support execution w/ bed side table. Recommend reviewing this stretch at next treatment session. Overall, good session. Adelaide would likely benefit from outpatient OT to establish appropriate HEP and caregiver training and to address posture, UE range of motion, and provide education to maintain available range of motion. - Plan Therapy Recommendations Continue with Current Program, Advance per Rehabilitation Protocol
--- NOTE | 2021-12-04 15:52 | OT.OP.TRT ---
Visit Care Team Role Provider Type KINJAL Cooper Attending Provider Advanced Outreach Consultant Family Provider Primary Care Provider Referring Provider Specialty: Family Practice Address: [address] [place] [address], [id number] Email: [email or web address] Occupational Therapy Treatment Note OT Outpatient Treatment Note - Adult Start: 07/31/21 08:56 Freq: Status: Active Protocol: Document 12/04/21 15:46 AMS (Rec: 12/04/21 15:52 AMS [id number]) OT Outpatient Adult Treatment Note Session Time Visit Start Time 10:30 Visit Stop Time 11:25 Total Visit Minutes 55 Visit Information Visit Number 01/16 Plan of Care Dates 10/07/21 - 12/30/21 Insurance Information Medicare Setting Treatment Setting Outpatient Care Visit Type Note Type Treatment Note General Information General Information Adelaide (or Sofi) is a 51 year- old right hand dominant female referred to outpatient OT by PCP, KINJAL Cooper, secondary to residual effects of stroke that occurred in 2014 after having surgery for brain aneurysm. Brittany was previously been seen in the outpatient setting by this OT; she was d/c to home exercise program with intent of returning to OT for upgrading of HEP. Due to inconsistent caregiver support, Brittany reports that she was inconsistent with doing her exercises. She continues to prefer proximal L sh stabilization brace versus Giv Sameer sling (d/t reported discomfort w/ Giv Sameer sling in right armpit from cyst). Brittany reports inconsistent use of night splint. Brittany is receiving outpatient PT for gait/balance/lower extremity weakness. She is also seeing Dr. Carter for pain management and seeing Dr. Stanton for development of coping skills. - Subjective Identification Type Name Identification Reconciled With Medical Record Observations Adelaide was accompanied by her caregiver, Kateryna, to OT treatment session. Can you go over the cane exercises again ? I took a picture on my phone when I put my hand flat on the table per Adelaide. Patient/Caregiver Compliance with Home Good Exercise Program Comment w/ support - Objective Objective Measurements Please refer to below for progress towards meeting established goals. Short Term Goals 1. Adelaide will demonstrate improved active range of motion of the left upper extremity: 1a. 0-25 degrees active left shoulder extension. 6/1/22 = 50% met; 0-20 degrees 1b. 0-50 degrees active left shoulder flexion. 10/07/21 = 50% met; 0-40 degrees 1c. 0- 15 degrees active left shoulder abduction. 10/07/21 = 25% met; 0-5 degrees Detention Goals 1. Adelaide will be modified independent with execution of upper extremity home exercise program with the support of her caregiver(s) utilizing provided written and visual instructions from therapist. 2. Adelaide will be able to don personal night splint for distal left upper extremity, without assistance, utilizing provided written and visual instructions and compensatory strategies, based on verbal caregiver and self-report. - Treatment 1 Descriptor HEP/POC. Modified cane exercises; recommended execution of row with cane hip <-> distal knees w/ L hand positioned to left of leg and evaluating space in room for pedal bike. Recommended trying to touch left knee with left hand seated at edge without arm rests to support active shoulder flexion. Reviewed importance of regular use of night splint; discussed increasing compliance to 5 nights given wearing splint. Reviewed importance of daily completion of UE range/tone management exercises/attending to upper extremity. Discussed use of Mother's free-standing pedal bike for UEs if set-up on table w/ possible use of dycem. Reviewed active participation w/ use of home e -stim units. All questions were answered. Exercises 7 Descriptor Pedal arm bike. Seated. x 5 minutes. CGA x 1 minute to maintain grasp of hand on handle of pedal bike. 5 Descriptor Peruvian e-stim to facilitate elbow flex. Intensity 31. 10/ 10 cycle. x 10 minutes. Skin intact pre- and post- treatment. Active participation w/ e-stim protocol. 4 Descriptor TT exercises. Functional reaching w/ towel. Infront of body. Circles. Sh abd. 1 x 15. 3 Descriptor UE exercises. Scapular retraction. 1 x 15. Sh ext. 1 x 15. Elbow flex. Muscle tapping to facilitate. 1 x 15. Sh flex. 1 x 15. Sh abd. 1 x 15. 1 Descriptor Tone management at EOM. Hand; weight shifting to the left. Weight shifting forwards and backwards w/ and without elbow flexion at EOM. Weight shifting at TT. - Assessment Assessment of Improvement Adelaide was accompanied by Kateryna, caregiver, to outpatient treatment session. Based on patient inquiries, reviewed cane exercises and modified appropriately based on patient feedback (pain in right wrist/left hand/fingers) . Improving tolerance for weight bearing w/ left wrist in extension w/ fingers slightly curved over vertical surface. Recommend continuing to work on weight bearing w/ wrist in extension and working towards ability to weight bear/push away w/ fingers extended. Requested that Kateryna and Adelaide assess her room for potential placement of pedal bike. Will need to follow-up. Overall, good session. Adelaide would likely benefit from outpatient OT to establish appropriate HEP and caregiver training and to address posture, UE range of motion, and provide education to maintain available range of motion. - Plan Therapy Recommendations Continue with Current Program, Advance per Rehabilitation Protocol
--- NOTE | 2021-12-09 11:52 | OT.OPPN ---
Current Diagnoses Flaccid hemiplegia affecting left nondominant side (12/09/21) Other lack of coordination (12/09/21) Weakness (12/09/21) OT Progress Note OT Outpatient Treatment Note - Adult Start: 07/31/21 08:56 Freq: Status: Active Protocol: Document 12/09/21 11:37 [facility]MS (Rec: 12/09/21 11:52 [facility] [id number]) OT Outpatient Adult Treatment Note Session Time Visit Start Time 09:30 Visit Stop Time 10:25 Total Visit Minutes 55 Visit Information Visit Number 05/18 Plan of Care Dates 12/09/21 - 03/03/22 Insurance Information Medicare Setting Treatment Setting Outpatient Care Visit Type Note Type Progress Note General Information General Information Adelaide (or Sofi) is a 51 year- old right hand dominant female referred to outpatient OT by PCP, KINJAL Cooper, secondary to residual effects of stroke that occurred in 2014 after having surgery for brain aneurysm. Brittany was previously been seen in the outpatient setting by this OT; she was d/c to home exercise program with intent of returning to OT for upgrading of HEP. Due to inconsistent caregiver support, Brittany reports that she was inconsistent with doing her exercises. She continues to prefer proximal L sh stabilization brace versus Giv Sameer sling (d/t reported discomfort w/ Giv Sameer sling in right armpit from cyst). Brittany reports inconsistent use of night splint. Brittany is receiving outpatient PT for gait/balance/lower extremity weakness. She is also seeing Dr. Carter for pain management and seeing Dr. Stanton for development of coping skills. - Subjective Identification Type Name Identification Reconciled With Medical Record Observations Adelaide was accompanied by her caregiver, Kateryna, to OT treatment session. We are going to pick-up the pedal bike from my mom's today per Adelaide. Patient/Caregiver Compliance with Home Good Exercise Program Comment w/ support - Objective Objective Measurements Please refer to below for progress towards meeting established goals. Short Term Goals 1. Adelaide will demonstrate improved active range of motion of the left upper extremity: 1a. 0-25 degrees active left shoulder extension. 10/07/21 = 50% met; 0-20 degrees 1b. 0-50 degrees active left shoulder flexion. 10/07/21 = 50% met; 0-40 degrees 1c. 0- 15 degrees active left shoulder abduction. 10/07/21 = 25% met; 0-5 degrees Poultry Boner Goals 1. Adelaide will be modified independent with execution of upper extremity home exercise program with the support of her caregiver(s) utilizing provided written and visual instructions from therapist. GOALS MET Adleaide will be able to don personal night splint for distal left upper extremity, without assistance, utilizing provided written and visual instructions and compensatory strategies, based on verbal caregiver and self-report. * MET 12/09/21 - Treatment 1 Descriptor HEP/POC. Reviewed cane exercise. Introduced additional exercises to support active elbow flex ( supine - elbow flex w/ caregiver assist, supine - elbow flex w/ placement of hand on stomach, and seated - elbow flex w/ muscle tapping w / caregiver support). Rec trying to touch left knee with left hand seated at edge without arm rests to support active shoulder flexion. Reviewed importance of regular use of night splint; discussed increasing compliance to 5 nights given wearing splint. Reviewed importance of daily completion of UE range/tone management exercises/attending to upper extremity. Reviewed passive versus active versus active assist. All questions were answered. Exercises 7 Descriptor Pedal arm bike. Seated. x 5 minutes. CGA x 1 minute to maintain grasp of hand on handle of pedal bike. 5 Descriptor German e-stim to facilitate elbow flex. Intensity 31. 10/ 10 cycle. x 10 minutes. Skin intact pre- and post- treatment. Active participation w/ e-stim protocol. 4 Descriptor TT exercises. Functional reaching w/ towel. Infront of body. Circles. Sh abd. 1 x 15. 3 Descriptor UE exercises. Scapular retraction. 1 x 15. Sh ext. 1 x 15. Elbow flex. Muscle tapping to facilitate. 1 x 15. Sh flex. 1 x 15. Sh abd. 1 x 15. 2 Descriptor Supine exercises. Elbow flex. 1 Descriptor Tone management at EOM. Hand; weight shifting to the left. Weight shifting forwards and backwards w/ and without elbow flexion at EOM. Weight shifting at TT. - Assessment Assessment of Improvement Adelaide has made some progress over the last certification period relative to functional independence w/ donning distal L UE night splint; Adelaide is able to don distal L UE night splint without assistance! A system to support compliance of wearing of night splint has been identified (placement of splint on bed); however, Adelaide still can be somewhat inconsistent w/ its use (3 days). Therapist continues to encourage wearing of night splint on a more regular basis . Adelaide has demonstrated progress relative to ranging of fingers as well; she has been able to lay her hand flat on table in her home setting without support. Adelaide is tolerating more weight bearing exercises; however, is still unable to functionally weight bear thru the upper extremity in sitting and/or standing. Based on patient feedback, increased focus has been placed on supporting active elbow flexion given good active elbow extension. Therapist continues to work with Adelaide and caregiver to establish appropriate HEP and modify/adapt as able based on patient/caregiver feedback. Adelaide would likely benefit from outpatient OT to establish appropriate HEP and caregiver training and to address posture, UE range of motion, and provide education to maintain available range of motion. - Plan Therapy Recommendations Continue with Current Program, Advance per Rehabilitation Protocol Comment 12 weeks Comment 1-2 times per week Therapeutic Contents Active Range of Motion, Adaptive Equipment Education, Client Education,Cognitive Skills Development,Functional Activities,Home Exercise Program,Joint Protection, Manual Therapy,Education, Neurodevelopment Treatment, Neuromuscular Re-Education, Self-Care,Stretching/ Flexibility Activities, Therapeutic Activities, Therapeutic Exercises, Modalities,Sensory Re- education Modalities As Needed,As Prescribed Types of Modalities E-Stim,T.E.N. Stimulation,TENS Placement/Application, Ultrasound Additional Types of Modalities Heat/Cold/Paraffin/Contrast If you are in agreement with this Plan of Care, please return a signed and dated copy. I have reviewed this Plan of Care and certify that the skilled therapy services above are required to meet the patient?s needs. Physician Signature Date Printed Name and Credentials Clinical Instructor Signature Printed Name and Credentials
--- NOTE | 2021-12-14 11:42 | OT.OP.TRT ---
Visit Care Team Role Provider Type KINJAL Cooper Attending Provider [employer] Consultant Family Provider Primary Care Provider Referring Provider Specialty: Family Practice Address: [address] [place] [address], [facility] Email: [email or web address] Occupational Therapy Treatment Note OT Outpatient Treatment Note - Adult Start: 07/31/21 08:56 Freq: Status: Active Protocol: Document 12/14/21 11:34 AMS (Rec: 12/14/21 11:42 AMS [id number]) OT Outpatient Adult Treatment Note Session Time Visit Start Time 09:30 Visit Stop Time 10:25 Visit Information Visit Number 06/18 Plan of Care Dates 12/09/21 - 03/03/22 Insurance Information Medicare Setting Treatment Setting Outpatient Care Visit Type Note Type Treatment Note General Information General Information Adelaide (or Sofi) is a 51 year- old right hand dominant female referred to outpatient OT by PCP, KINJAL Cooper, secondary to residual effects of stroke that occurred in 2014 after having surgery for brain aneurysm. Brittany was previously been seen in the outpatient setting by this OT; she was d/c to home exercise program with intent of returning to OT for upgrading of HEP. Due to inconsistent caregiver support, Brittany reports that she was inconsistent with doing her exercises. She continues to prefer proximal L sh stabilization brace versus Giv Sameer sling (d/t reported discomfort w/ Giv Sameer sling in right armpit from cyst). Brittany reports inconsistent use of night splint. Brittany is receiving outpatient PT for gait/balance/lower extremity weakness. She is also seeing Dr. Carter for pain management and seeing Dr. Stanton for development of coping skills. - Subjective Identification Type Name Identification Reconciled With Medical Record Observations Adelaide was accompanied by her caregiver, Kateryna, to OT treatment session. Right now, she needs some help using the pedal bike. She had a hard time opening up her fingers and putting her hand on the pedal per Kateryna. I am using the night splint almost 5 nights per week per Adelaide. Patient/Caregiver Compliance with Home Good Exercise Program Comment w/ support - Objective Objective Measurements Please refer to below for progress towards meeting established goals. Short Term Goals 1. Adelaide will demonstrate improved active range of motion of the left upper extremity: 1a. 0-25 degrees active left shoulder extension. 10/07/21 = 50% met; 0-20 degrees 1b. 0-50 degrees active left shoulder flexion. 10/07/21 = 50% met; 0-40 degrees 1c. 0- 15 degrees active left shoulder abduction. 10/07/21 = 25% met; 0-5 degrees Mcfp Goals 1. Adelaide will be modified independent with execution of upper extremity home exercise program with the support of her caregiver(s) utilizing provided written and visual instructions from therapist. GOALS MET Adelaide will be able to don personal night splint for distal left upper extremity, without assistance, utilizing provided written and visual instructions and compensatory strategies, based on verbal caregiver and self-report. * MET 12/09/21 - Treatment 1 Descriptor HEP/POC. Discussed methods of stabilization of pedal pike to flat surface w/ patient and caregiver. Reviewed importance of regular use of night splint; discussed increasing compliance to 5 nights given wearing splint. Reviewed importance of daily completion of UE range/tone management exercises/attending to upper extremity. Reviewed passive versus active versus active assist. All questions were answered. Exercises 7 Descriptor Pedal arm bike. Seated. x 5 minutes. Min phys assist to position hand on pedal. 5 Descriptor Wallisian e-stim to facilitate elbow flex. Intensity 30. 10/ 10 cycle. x 10 minutes. Skin intact pre- and post- treatment. Active participation w/ e-stim protocol. 4 Descriptor TT exercises. Functional reaching w/ towel. Infront of body. Circles. Sh abd. 1 x 15. 3 Descriptor UE exercises. Scapular retraction. 1 x 15. Sh ext. 1 x 15. Elbow flex. Muscle tapping to facilitate. 1 x 15. Sh flex. 1 x 15. Sh abd. 1 x 15. 2 Descriptor Supine exercises. Elbow flex. 1 Descriptor Tone management at EOM. Hand; weight shifting to the left. Weight shifting forwards and backwards w/ and without elbow flexion at EOM. Weight shifting at TT. - Assessment Assessment of Improvement Adelaide reports improved consistency w/ wearing of night splint; will need to monitor for use. Therapist continues to encourage wearing of night splint on a more regular basis. Lucy brought in personal pedal bike to treatment session; currently, Adelaide needs assistance to position left hand on pedal of bike. Adelaide and Kateryna still need to identify ideal location of pedal bike in the home; discussed ways to stabilize pedal bike to support Adelaide's use of equipment on own. Therapist continues to work with Adelaide and caregiver to establish appropriate HEP and modify/adapt as able based on patient/caregiver feedback. Adelaide would likely benefit from outpatient OT to establish appropriate HEP and caregiver training and to address posture, UE range of motion, and provide education to maintain available range of motion. - Plan Therapy Recommendations Continue with Current Program, Advance per Rehabilitation Protocol
--- NOTE | 2022-01-12 16:01 | OT.OP.TRT ---
Visit Care Team Role Provider Type KINJAL Cooper Attending Provider Advanced Emergency Medicine Nurse Practitioner Family Provider Primary Care Provider Referring Provider Specialty: Family Practice Address: [address] [place] [address], [facility] Email: [email or web address] Occupational Therapy Treatment Note OT Outpatient Treatment Note - Adult Start: 07/31/21 08:56 Freq: Status: Active Protocol: Document 01/12/22 15:54 AMS (Rec: 01/12/22 16:01 AMS [id number]) OT Outpatient Adult Treatment Note Session Time Visit Start Time 10:43 Visit Stop Time 11:25 Total Visit Minutes 42 Visit Information Visit Number 07/16 Plan of Care Dates 12/09/21 - 03/03/22 Insurance Information Medicare Setting Treatment Setting Outpatient Care Visit Type Note Type Treatment Note General Information General Information Adelaide (or Sofi) is a 51 year- old right hand dominant female referred to outpatient OT by PCP, KINJAL Cooper, secondary to residual effects of stroke that occurred in 2014 after having surgery for brain aneurysm. Brittany was previously been seen in the outpatient setting by this OT; she was d/c to home exercise program with intent of returning to OT for upgrading of HEP. Due to inconsistent caregiver support, Brittany reports that she was inconsistent with doing her exercises. She continues to prefer proximal L sh stabilization brace versus Giv Sameer sling (d/t reported discomfort w/ Giv Sameer sling in right armpit from cyst). Brittany reports inconsistent use of night splint. Brittany is receiving outpatient PT for gait/balance/lower extremity weakness. She is also seeing Dr. Carter for pain management and seeing Dr. Stanton for development of coping skills. - Subjective Identification Type Name Identification Reconciled With Medical Record Observations GonzaloAdelaide castro's caregiver, provided transportation of Adelaide to and from treatment session. Per Kateryna, Adelaide's father had suffered a stroke the previous night (although Adelaide did not wish to actively discuss this during treatment with therapist). Patient/Caregiver Compliance with Home Good Exercise Program Comment w/ support - Objective Objective Measurements Please refer to below for progress towards meeting established goals. Short Term Goals 1. Adelaide will demonstrate improved active range of motion of the left upper extremity: 1a. 0-25 degrees active left shoulder extension. 10/07/21 = 50% met; 0-20 degrees 1b. 0-50 degrees active left shoulder flexion. 10/07/21 = 50% met; 0-40 degrees 1c. 0- 15 degrees active left shoulder abduction. 10/07/21 = 25% met; 0-5 degrees Half-Way Goals 1. Adelaide will be modified independent with execution of upper extremity home exercise program with the support of her caregiver(s) utilizing provided written and visual instructions from therapist. GOALS MET Adelaide will be able to don personal night splint for distal left upper extremity, without assistance, utilizing provided written and visual instructions and compensatory strategies, based on verbal caregiver and self-report. * MET 12/09/21 - Treatment 1 Descriptor HEP/POC. Reviewed importance of regular use of night splint ; discussed increasing compliance to 5 nights given wearing splint. Introduced ' pushing away' with yoga ball w / fingers and wrist in extension; will need to review at time of next session given that caregiver only provided transportation to today's session. Reviewed importance of daily completion of UE range/tone management exercises/attending to upper extremity. Reviewed passive versus active versus active assist. All questions were answered. Exercises 7 Descriptor Pedal arm bike. Seated. x 5 minutes. Min phys assist to position hand on pedal. 5 Descriptor English e-stim to facilitate elbow flex. Intensity 30. 10/ 10 cycle. x 10 minutes. Skin intact pre- and post- treatment. Active participation w/ e-stim protocol. 4 Descriptor TT exercises. Functional reaching w/ towel. Infront of body. Circles. Sh abd. 1 x 15. 3 Descriptor UE exercises. Scapular retraction. 1 x 15. Sh ext. 1 x 15. Elbow flex. Muscle tapping to facilitate. 1 x 15. Sh flex. 1 x 15. Sh abd. 1 x 15. 2 Descriptor Supine exercises. Elbow flex. 1 Descriptor Tone management at EOM. Hand; weight shifting to the left. Weight shifting forwards and backwards w/ and without elbow flexion at EOM. Weight shifting at TT. - Assessment Assessment of Improvement Adelaide reports improved consistency w/ wearing of night splint; yet, had difficulty keeping 'splint on last night'; will need to monitor for consistency and use. Lucy are still trying to identify ideal location of pedal bike in the home, as well as method to stabilizing pedal bike to support Adelaide's use of equipment without support. Introduced 'pushing away' exercise w/ yoga ball w/ wrist and fingers in extension. Will need to review exercise at next session w/ caregiver present. Overall, good session . Therapist continues to work with Adelaide and caregiver to establish appropriate HEP and modify/adapt as able based on patient/caregiver feedback. Adelaide would likely benefit from outpatient OT to establish appropriate HEP and caregiver training and to address posture, UE range of motion, and provide education to maintain available range of motion. - Plan Therapy Recommendations Continue with Current Program, Advance per Rehabilitation Protocol
--- NOTE | 2022-01-20 15:30 | OT.OP.TRT ---
Visit Care Team Role Provider Type KINJAL Cooper Attending Provider [employer] Family Provider Primary Care Provider Referring Provider Specialty: Family Practice Address: [address] [place] [address], [facility] Email: [email or web address] Occupational Therapy Treatment Note OT Outpatient Treatment Note - Adult Start: 07/31/21 08:56 Freq: Status: Active Protocol: Document 01/20/22 15:30 AMS (Rec: 01/21/22 09:56 AMS [id number]) OT Outpatient Adult Treatment Note Session Time Visit Start Time 10:30 Visit Stop Time 11:25 Total Visit Minutes 55 Visit Information Visit Number 08/16 Plan of Care Dates 12/09/21 - 03/03/22 Insurance Information Medicare Setting Treatment Setting Outpatient Care Visit Type Note Type Treatment Note General Information General Information Adelaide (or Soif) is a 52 year- old right hand dominant female referred to outpatient OT by PCP, KINJAL Cooper, secondary to residual effects of stroke that occurred in 2014 after having surgery for brain aneurysm. Brittany was previously been seen in the outpatient setting by this OT; she was d/c to home exercise program with intent of returning to OT for upgrading of HEP. Due to inconsistent caregiver support, Brittany reports that she was inconsistent with doing her exercises. She continues to prefer proximal L sh stabilization brace versus Giv Sameer sling (d/t reported discomfort w/ Giv Sameer sling in right armpit from cyst). Brittany reports inconsistent use of night splint. Brittany is receiving outpatient PT for gait/balance/lower extremity weakness. She is also seeing Dr. Carter for pain management and seeing Dr. Stanton for development of coping skills. - Subjective Identification Type Name Identification Reconciled With Medical Record Observations Adelaide Silverio's caregiver, provided transportation of Adelaide to and from treatment session. My hand and arm wouldn't stay in the splint last night per Adelaide. Patient/Caregiver Compliance with Home Good Exercise Program Comment w/ support - Objective Objective Measurements Please refer to below for progress towards meeting established goals. Short Term Goals 1. Adelaide will demonstrate improved active range of motion of the left upper extremity: 1a. 0-25 degrees active left shoulder extension. 10/07/21 = 50% met; 0-20 degrees 1b. 0-50 degrees active left shoulder flexion. 10/07/21 = 50% met; 0-40 degrees 1c. 0- 15 degrees active left shoulder abduction. 10/07/21 = 25% met; 0-5 degrees Care Home Goals 1. Adelaide will be modified independent with execution of upper extremity home exercise program with the support of her caregiver(s) utilizing provided written and visual instructions from therapist. = 25% met GOALS MET Adelaide will be able to don personal night splint for distal left upper extremity, without assistance, utilizing provided written and visual instructions and compensatory strategies, based on verbal caregiver and self-report. * MET 12/09/21 - Treatment 1 Descriptor HEP/POC. Reviewed importance of regular use of night splint . Reviewed 'pushing away' with yoga ball w/ fingers and wrist in extension; will need to review at time of next session given that caregiver only provided transportation to today's session. Reviewed importance of daily completion of UE range/tone management exercises/attending to upper extremity. Reviewed passive versus active versus active assist. Problem solved w/ patient for practicing of active elbow flex in supine. All questions were answered. Exercises 7 Descriptor Pedal arm bike. Seated. x 5 minutes. Min phys assist to position hand on pedal. 5 Descriptor Belarusian e-stim to facilitate elbow flex. Intensity 30. 10/ 10 cycle. x 10 minutes. Skin intact pre- and post- treatment. Active participation w/ e-stim protocol. 4 Descriptor TT exercises. Functional reaching w/ towel. Infront of body. Circles. Sh abd. 1 x 15. 3 Descriptor UE exercises. Scapular retraction. 1 x 15. Sh ext. 1 x 15. Elbow flex. Muscle tapping to facilitate. 1 x 15. Sh flex. 1 x 15. Sh abd. 1 x 15. 2 Descriptor Supine exercises. 1 x 15. Elbow flex. Chest press. SA exercise. 1 Descriptor Tone management at EOM. Hand; weight shifting to the left. Weight shifting forwards and backwards w/ and without elbow flexion at EOM. Weight shifting at TT. - Assessment Assessment of Improvement Adelaide continues to report having difficulty keeping night splint on; will need to monitor for consistency and use. Recommend considering reviewing method of donning splint and/or providing visuals to support tightness/ order of velcro straps to splint. Will need to follow-up with Adelaide and caregiver re: set-up and stabilization of pedal bike in the home to support Adelaide's use of equipment. Reviewed 'pushing away' exercise w/ yoga ball w/ wrist and fingers in extension; will need to review exercise at next session w/ caregiver present to support carry-over. (-) aversion to supine exercises; positive participation w/ discussion to support carry-over and increased success w/ execution of elbow flex utilizing home e-stim unit. Overall, good session. Therapist continues to work with Adelaide and caregiver to establish appropriate HEP and modify/adapt as able based on patient/caregiver feedback. Adelaide would likely benefit from outpatient OT to establish appropriate HEP and caregiver training and to address posture, UE range of motion, and provide education to maintain available range of motion. - Plan Therapy Recommendations Continue with Current Program, Advance per Rehabilitation Protocol
--- NOTE | 2022-02-10 12:03 | OT.OP.TRT ---
Visit Care Team Role Provider Type KINJAL Cooper Attending Provider [employer] Analyst Family Provider Primary Care Provider Referring Provider Specialty: Family Practice Address: [address] [place] [address], [facility] Email: [email or web address] Occupational Therapy Treatment Note OT Outpatient Treatment Note - Adult Start: 07/31/21 08:56 Freq: Status: Active Protocol: Document 02/10/22 11:57 AMS (Rec: 02/10/22 12:03 AMS [id number]) OT Outpatient Adult Treatment Note Session Time Visit Start Time 10:30 Visit Stop Time 11:25 Total Visit Minutes 55 Visit Information Visit Number 09/15 Plan of Care Dates 12/09/21 - 03/03/22 Insurance Information Medicare Setting Treatment Setting Outpatient Care Visit Type Note Type Treatment Note General Information General Information Adelaide (or Sofi) is a 52 year- old right hand dominant female referred to outpatient OT by PCP, KINJAL Cooper, secondary to residual effects of stroke that occurred in 2014 after having surgery for brain aneurysm. Brittany was previously been seen in the outpatient setting by this OT; she was d/c to home exercise program with intent of returning to OT for upgrading of HEP. Due to inconsistent caregiver support, Brittany reports that she was inconsistent with doing her exercises. She continues to prefer proximal L sh stabilization brace versus Giv Sameer sling (d/t reported discomfort w/ Giv Sameer sling in right armpit from cyst). Brittany reports inconsistent use of night splint. Brittany is receiving outpatient PT for gait/balance/lower extremity weakness. She is also seeing Dr. Carter for pain management and seeing Dr. Stanton for development of coping skills. - Subjective Identification Type Name Identification Reconciled With Medical Record Observations Adelaide Avendaño's caregiver, provided transportation of Adelaide to and from treatment session. Adelaide to 'likely move in a month' to [place] . Patient/Caregiver Compliance with Home Good Exercise Program Comment w/ support - Objective Objective Measurements Please refer to below for progress towards meeting established goals. Short Term Goals 1. Adelaide will demonstrate improved active range of motion of the left upper extremity: 1a. 0-25 degrees active left shoulder extension. 10/07/21 = 50% met; 0-20 degrees 1b. 0-50 degrees active left shoulder flexion. 10/07/21 = 50% met; 0-40 degrees 1c. 0- 15 degrees active left shoulder abduction. 10/07/21 = 25% met; 0-5 degrees Residential Goals 1. Adelaide will be modified independent with execution of upper extremity home exercise program with the support of her caregiver(s) utilizing provided written and visual instructions from therapist. = 25% met GOALS MET Adelaide will be able to don personal night splint for distal left upper extremity, without assistance, utilizing provided written and visual instructions and compensatory strategies, based on verbal caregiver and self-report. * MET 12/09/21 - Treatment 1 Descriptor HEP/POC. Reviewed importance of regular use of night splint . Reviewed 'pushing away' with yoga ball w/ fingers and wrist in extension; completed w/ Kateryna present in treatment session. Discussed increased tolerance for w/ use of ball versus pushing away w/ therapist's hand. Reviewed importance of daily completion of UE range/tone management exercises/attending to upper extremity. Reviewed passive versus active versus active assist. Problem solved w/ patient for practicing of active elbow flex in supine. All questions were answered. Exercises 7 Descriptor Pedal arm bike. Seated. x 5 minutes. Min phys assist to position hand on pedal. 5 Descriptor Israeli e-stim to facilitate elbow flex. Intensity 32. 10/ 10 cycle. x 10 minutes. Skin intact pre- and post- treatment. Active participation w/ e-stim protocol. 4 Descriptor TT exercises. Functional reaching w/ towel. Infront of body. Circles. Sh abd. 1 x 15. 3 Descriptor UE exercises. Scapular retraction. 1 x 15. Sh ext. 1 x 15. Elbow flex. Muscle tapping to facilitate. 1 x 15. Sh flex. 1 x 15. Sh abd. 1 x 15. 2 Descriptor Supine exercises. 1 x 15. Elbow flex. Chest press. SA exercise. 1 Descriptor Tone management at EOM. Hand; weight shifting to the left. Weight shifting forwards and backwards w/ and without elbow flexion at EOM. Weight shifting at TT. - Assessment Assessment of Improvement Adelaide continues to report having difficulty keeping night splint on; will need to monitor for consistency and use. Recommend considering reviewing method of donning splint and/or providing visuals to support tightness/ order of velcro straps to splint. Will need to follow-up with Adelaide and caregiver re: set-up and stabilization of pedal bike in the home to support Adelaide's use of equipment. Reviewed 'pushing away' exercise w/ yoga ball w/ wrist and fingers in extension w/ caregiver present . Given that Adelaide is likely to relocate in near future, recommend ensuring understanding of current OT home exercise program. Provision of visual and written instructions recommended. (-) aversion to supine exercises; positive participation w/ discussion to support carry-over and increased success w/ execution of elbow flex utilizing home e-stim unit. Overall, good session. Therapist continues to work with Adelaide and caregiver to establish appropriate HEP and modify/adapt as able based on patient/caregiver feedback. Adelaide would likely benefit from outpatient OT to establish appropriate HEP and caregiver training and to address posture, UE range of motion, and provide education to maintain available range of motion. - Plan Therapy Recommendations Continue with Current Program, Advance per Rehabilitation Protocol
--- NOTE | 2022-02-17 13:55 | OT.OP.TRT ---
Visit Care Team Role Provider Type KINJAL Cooper Attending Provider Advanced Belt Sander Family Provider Primary Care Provider Referring Provider Specialty: Family Practice Address: [address] [place] [address], [facility] Email: [email or web address] Occupational Therapy Treatment Note OT Outpatient Treatment Note - Adult Start: 07/31/21 08:56 Freq: Status: Active Protocol: Document 02/17/22 13:49 AMS (Rec: 02/17/22 13:55 AMS [id number]) OT Outpatient Adult Treatment Note Session Time Visit Start Time 10:45 Visit Stop Time 11:25 Total Visit Minutes 40 Visit Information Visit Number 10/16 Plan of Care Dates 12/09/21 - 03/03/22 Insurance Information Medicare Setting Treatment Setting Outpatient Care Visit Type Note Type Treatment Note General Information General Information Adelaide (or Sofi) is a 52 year- old right hand dominant female referred to outpatient OT by PCP, KINJAL Cooper, secondary to residual effects of stroke that occurred in 2014 after having surgery for brain aneurysm. Brittany was previously been seen in the outpatient setting by this OT; she was d/c to home exercise program with intent of returning to OT for upgrading of HEP. Due to inconsistent caregiver support, Brittany reports that she was inconsistent with doing her exercises. She continues to prefer proximal L sh stabilization brace versus Giv Sameer sling (d/t reported discomfort w/ Giv Sameer sling in right armpit from cyst). Brittany reports inconsistent use of night splint. Brittany is receiving outpatient PT for gait/balance/lower extremity weakness. She is also seeing Dr. Carter for pain management and seeing Dr. Stanton for development of coping skills. - Subjective Identification Type Name Identification Reconciled With Medical Record Observations Adelaide Avendaño's caregiver, provided transportation of Adelaide to and from treatment session. She attended treatment session as well. Patient/Caregiver Compliance with Home Good Exercise Program Comment w/ support - Objective Objective Measurements Please refer to below for progress towards meeting established goals. Short Term Goals 1. Adelaide will demonstrate improved active range of motion of the left upper extremity: 1a. 0-25 degrees active left shoulder extension. 10/07/21 = 50% met; 0-20 degrees 1b. 0-50 degrees active left shoulder flexion. 10/07/21 = 50% met; 0-40 degrees 1c. 0- 15 degrees active left shoulder abduction. 10/07/21 = 25% met; 0-5 degrees Manager International Goals 1. Adelaide will be modified independent with execution of upper extremity home exercise program with the support of her caregiver(s) utilizing provided written and visual instructions from therapist. 02/17/22 = 25% met GOALS MET Adelaide will be able to don personal night splint for distal left upper extremity, without assistance, utilizing provided written and visual instructions and compensatory strategies, based on verbal caregiver and self-report. * MET 12/09/21 - Treatment 1 Descriptor HEP/POC. Reviewed importance of regular use of night splint . Reviewed 'pushing away' with yoga ball w/ fingers and wrist in extension. Reviewed importance of daily completion of UE range/tone management exercises/attending to upper extremity. All questions were answered. Exercises 7 Descriptor Pedal arm bike. Seated. x 5 minutes. Min phys assist to position hand on pedal. 5 Descriptor Swiss e-stim to facilitate elbow flex. Intensity 34. 10/ 10 cycle. x 10 minutes. Skin intact pre- and post- treatment. Active participation w/ e-stim protocol. 4 Descriptor TT exercises. Functional reaching w/ towel. Infront of body. Circles. Sh abd. 1 x 15. 3 Descriptor UE exercises. Scapular retraction. 1 x 15. Sh ext. 1 x 15. Elbow flex. Muscle tapping to facilitate. 1 x 15. Sh flex. 1 x 15. Sh abd. 1 x 15. 2 Descriptor Supine exercises. 1 x 15. Elbow flex. Chest press. SA exercise. 1 Descriptor Tone management at EOM. Hand; weight shifting to the left. Weight shifting forwards and backwards w/ and without elbow flexion at EOM. Weight shifting at TT. - Assessment Assessment of Improvement Adelaide reports having difficulties sleeping previous night d/t concerns about upcoming relocation to [place] (stressors). Adelaide continues to report having difficulty keeping night splint on; will need to monitor for consistency and use. Recommend considering reviewing method of donning splint and/or providing visuals to support tightness/ order of velcro straps for donning of splint. Reviewed ' pushing away' exercise w/ yoga ball w/ wrist and fingers in extension w/ caregiver present . Given that Adelaide is likely to relocate in near future, recommend ensuring understanding of current OT home exercise program. Provision of visual and written instructions recommended. (-) aversion to supine exercises. Overall, good session. Therapist continues to work with Adelaide and caregiver to establish appropriate HEP and modify/adapt as able based on patient/caregiver feedback. Adelaide would likely benefit from outpatient OT to establish appropriate HEP and caregiver training and to address posture, UE range of motion, and provide education to maintain available range of motion. - Plan Therapy Recommendations Continue with Current Program, Advance per Rehabilitation Protocol
--- NOTE | 2022-05-13 13:06 | OT.OPPN ---
Current Diagnoses Flaccid hemiplegia affecting left nondominant side (05/13/22) Other lack of coordination (05/13/22) Weakness (05/13/22) OT Progress Note OT Outpatient Treatment Note - Adult Start: 07/31/21 08:56 Freq: Status: Active Protocol: Document 05/13/22 12:44 AMS (Rec: 05/13/22 13:06 AMS [id number]) OT Outpatient Adult Treatment Note Session Time Visit Start Time 09:30 Visit Stop Time 10:15 Total Visit Minutes 45 Visit Information Plan of Care Dates 05/13/22 - 08/05/22 Insurance Information no pre-auth; unlimited visits; Therapist Only Setting Treatment Setting Outpatient Care Visit Type Note Type Treatment Note General Information General Information Adeliade (or Sofi) is a 52 year- old right hand dominant female referred to outpatient OT by PCP, KINJAL Cooper, secondary to residual effects of stroke that occurred in 2014 after having surgery for brain aneurysm. Brittany was previously been seen in the outpatient setting by this OT; she was d/c to home exercise program with intent of returning to OT for upgrading of HEP. Due to inconsistent caregiver support, Brittany reports that she was inconsistent with doing her exercises. She continues to prefer proximal L sh stabilization brace versus Giv Sameer sling (d/t reported discomfort w/ Giv Sameer sling in right armpit from cyst). Brittany reports inconsistent use of night splint. Brittany is receiving outpatient PT for gait/balance/lower extremity weakness. She is also seeing Dr. Carter for pain management and seeing Dr. Stanton for development of coping skills. - Subjective Identification Type Name Identification Reconciled With Medical Record Observations Brittany was accompanied by her new caregiver, Luke, to treatment session. Report of need to locate night wrist/ digit splint; currently not utilizing. Report of still working on 'set-up' of pedal bike for home use. Report of completing supine arm exercises. - Objective Objective Measurements Please refer to below for progress towards meeting established goals. 05/13/22 = no active L ER; no active L elbow flex. WFL L IR and L elbow ext. Short Term Goals 1. Adelaide will demonstrate improved active range of motion of the left upper extremity: 1a. 0-25 degrees active left shoulder extension. 10/07/21 = 50% met; 0-20 degrees. 05/13/22 = 0-20 degrees. 1b. 0-50 degrees active left shoulder flexion. 10/07/21 = 50% met; 0-40 degrees. 05/13/22 = 0 -30 degrees. 1c. 0- 15 degrees active left shoulder abduction. 10/07/21 = 25% met; 0-5 degrees. 05/13/22 = 0-5 degrees. Fpc Goals 1. Adelaide will be modified independent with execution of upper extremity home exercise program with the support of her caregiver(s) utilizing provided written and visual instructions from therapist. = 25% met GOALS MET Adelaide will be able to don personal night splint for distal left upper extremity, without assistance, utilizing provided written and visual instructions and compensatory strategies, based on verbal caregiver and self-report. * MET 12/09/21 - Treatment 1 Descriptor HEP/POC. Discussed w/ new caregiver locating night ( wrist/digit) splint; setting up pedal bike in the home. Focus on posture w/ scapular retraction based on patient inquiries. Use of mirror for visual feedback; use of wand ( bilateral and/or caregiver assist); seated on bench and/ or chair w/ no arm rest to practice scapular retraction and shoulder ext. Practiced alt foot lift seated at EOM w/ maintaining midline and good posture/scapular retraction. All questions were answered. Exercises 7 Descriptor Pedal arm bike. Seated. x 5 minutes. Min phys assist to position hand on pedal. 5 Descriptor [place] e-stim to facilitate elbow flex. Intensity 34. 10/ 10 cycle. x 10 minutes. Skin intact pre- and post- treatment. Active participation w/ e-stim protocol. 4 Descriptor TT exercises. Functional reaching w/ towel. Infront of body. Circles. Sh abd. 1 x 15. 3 Descriptor UE exercises. 05/13/22 = Focus on scapular retraction/sh extension. Scapular retraction. 1 x 15. Sh ext. 1 x 15. Elbow flex. Muscle tapping to facilitate. 1 x 15. Sh flex. 1 x 15. Sh abd. 1 x 15. 2 Descriptor Supine exercises. 1 x 15. Elbow flex. Chest press. SA exercise. 1 Descriptor Tone management at EOM. Hand; weight shifting to the left. Weight shifting forwards and backwards w/ and without elbow flexion at EOM. Weight shifting at TT. - Assessment Assessment of Improvement Gap in treatment occurred secondary to therapist being out of the clinic; Sofi has increased difficulties w/ carry-over of upper extremity home exercise program d/t change(s) in caregiver(s). She reports need to locate wrist/ digit distal L UE night splint , need to still secure small pedal bike to TT to support use, and need to return to regular execution of UE exercises. She reports execution of supine exercises w/ R UE support. Based on Sofi' s concerns, focus was on scapular retraction/sh extension. With the gap in treatment, she has lost some active range of motion of the L UE. Thus, Adelaide would likely benefit from outpatient OT to establish appropriate HEP and caregiver training and to address posture, UE range of motion, and provide education to maintain available range of motion. - Plan Comment 12 weeks Frequency of Treatment Once a Week Therapeutic Contents Active Range of Motion, Adaptive Equipment Education, Client Education,Cognitive Skills Development,Functional Activities,Home Exercise Program,Joint Protection, Manual Therapy,Education, Neurodevelopment Treatment, Neuromuscular Re-Education, Self-Care,Stretching/ Flexibility Activities, Therapeutic Activities, Therapeutic Exercises, Modalities,Sensory Re- education Types of Modalities E-Stim,Functional Stimulation (FES),T.E.N. Stimulation,TENS Placement/Application, Ultrasound Additional Types of Modalities Heat/Cold If you are in agreement with this Plan of Care, please return a signed and dated copy. I have reviewed this Plan of Care and certify that the skilled therapy services above are required to meet the patient?s needs. Physician Signature Date Printed Name and Credentials Clinical Instructor Signature Printed Name and Credentials
--- NOTE | 2022-05-19 15:30 | OT.OP.TRT ---
Visit Care Team Role Provider Type KINJAL Cooper Attending Provider Advanced Control Room Operator Family Provider Primary Care Provider Referring Provider Specialty: Family Practice Address: [address] [place] [address], [facility] Email: [email or web address] Occupational Therapy Treatment Note OT Outpatient Treatment Note - Adult Start: 07/31/21 08:56 Freq: Status: Active Protocol: Document 05/19/22 11:44 AMS (Rec: 05/19/22 11:54 AMS [id number]) OT Outpatient Adult Treatment Note Session Time Visit Start Time 10:45 Visit Stop Time 11:15 Total Visit Minutes 30 Visit Information Plan of Care Dates 05/13/22 - 08/05/22 Insurance Information no pre-auth; unlimited visits; Therapist Only Setting Treatment Setting Outpatient Care Visit Type Note Type Treatment Note General Information General Information Adelaide (or Sofi) is a 52 year- old right hand dominant female referred to outpatient OT by PCP, KINJAL Cooper, secondary to residual effects of stroke that occurred in 2014 after having surgery for brain aneurysm. Brittany was previously been seen in the outpatient setting by this OT; she was d/c to home exercise program with intent of returning to OT for upgrading of HEP. Due to inconsistent caregiver support, Brittany reports that she was inconsistent with doing her exercises. She continues to prefer proximal L sh stabilization brace versus Giv Sameer sling (d/t reported discomfort w/ Giv Sameer sling in right armpit from cyst). Brittany reports inconsistent use of night splint. Brittany is receiving outpatient PT for gait/balance/lower extremity weakness. She is also seeing Dr. Carter for pain management and seeing Dr. Stanton for development of coping skills. - Subjective Identification Type Name Identification Reconciled With Medical Record Observations Brittany was accompanied by temporary caregiver, Radha, to treatment session. Report of Luke finding night splint prior to leaving on 2 week vacation. - Objective Objective Measurements Please refer to below for progress towards meeting established goals. 05/13/22 = no active L ER; no active L elbow flex. WFL L IR and L elbow ext. Short Term Goals 1. Adelaide will demonstrate improved active range of motion of the left upper extremity: 1a. 0-25 degrees active left shoulder extension. 10/07/21 = 50% met; 0-20 degrees. 05/13/22 = 0-20 degrees. 1b. 0-50 degrees active left shoulder flexion. 10/07/21 = 50% met; 0-40 degrees. 05/13/22 = 0 -30 degrees. 1c. 0- 15 degrees active left shoulder abduction. 10/07/21 = 25% met; 0-5 degrees. 05/13/22 = 0-5 degrees. Chcf Goals 1. Adelaide will be modified independent with execution of upper extremity home exercise program with the support of her caregiver(s) utilizing provided written and visual instructions from therapist. = 25% met GOALS MET Adelaide will be able to don personal night splint for distal left upper extremity, without assistance, utilizing provided written and visual instructions and compensatory strategies, based on verbal caregiver and self-report. * MET 12/09/21 - Treatment 1 Descriptor HEP/POC. Reviewed sitting posture exercises. Recommended wearing distal UE splint to support tone management. Recommended assist w/ clipping of fingernails. Reviewed TT weight bearing/tone management exercise. Exercises 7 Descriptor Pedal arm bike. Seated. x 5 minutes. Min phys assist to position hand on pedal. 4 Descriptor TT exercises. Functional reaching w/ towel. Infront of body. Circles. Sh abd. 1 x 15. 3 Descriptor UE exercises. 05/19/22 = Focus on scapular retraction/sh extension. TB #1. Modified sh ext. 2 x 10 . Seated. TT. Elbow flex. Scapular retraction. 1 x 15. Sh ext. 1 x 15. Elbow flex. Muscle tapping to facilitate. 1 x 15. Sh flex. 1 x 15. Sh abd. 1 x 15. 1 Descriptor Tone management at EOM. Hand; weight shifting to the left. Weight shifting forwards and backwards w/ and without elbow flexion at EOM. Weight shifting at TT. - Assessment Assessment of Improvement Sofi was accompanied by a temporary caregiver, Radha, given that Luke has gone on 2- week vacation. Improved orientation to midline, sitting posture noted w/ decreased weight shift to the left or right w/ leg lift at EOM. (+) response to support resisted sh ext w/ TB; decreased compensatory strategies. Rec repeating this exercise. Reviewed TT tone management and recommended receiving assistance w/ nail care. Overall, good session despite shortened length. Adelaide would likely benefit from outpatient OT to establish appropriate HEP and caregiver training and to address posture, UE range of motion, and provide education to maintain available range of motion. - Plan Therapy Recommendations Continue with Current Program, Advance per Rehabilitation Protocol
--- NOTE | 2022-05-24 12:09 | OT.OP.TRT ---
Visit Care Team Role Provider Type KINJAL Cooper Attending Provider Advanced Tare Weigher Family Provider Primary Care Provider Referring Provider Specialty: Family Practice Address: [address] [place] [address], [facility] Email: [email or web address] Occupational Therapy Treatment Note OT Outpatient Treatment Note - Adult Start: 07/31/21 08:56 Freq: Status: Active Protocol: Document 05/24/22 11:56 [facility] (Rec: 05/24/22 12:08 [facility] [id number]) OT Outpatient Adult Treatment Note Session Time Visit Start Time 10:35 Visit Stop Time 11:30 Total Visit Minutes 55 Visit Information Visit Number 07/16 Plan of Care Dates 05/13/22 - 08/05/22 Insurance Information no pre-auth; unlimited visits; Therapist Only Setting Treatment Setting Outpatient Care Visit Type Note Type Treatment Note General Information General Information Adelaide (or Sofi) is a 52 year- old right hand dominant female referred to outpatient OT by PCP, KINJAL Cooper, secondary to residual effects of stroke that occurred in 2014 after having surgery for brain aneurysm. Brittany was previously been seen in the outpatient setting by this OT; she was d/c to home exercise program with intent of returning to OT for upgrading of HEP. Due to inconsistent caregiver support, Brittany reports that she was inconsistent with doing her exercises. She continues to prefer proximal L sh stabilization brace versus Giv Sameer sling (d/t reported discomfort w/ Giv Sameer sling in right armpit from cyst). Brittany reports inconsistent use of night splint. Brittany is receiving outpatient PT for gait/balance/lower extremity weakness. She is also seeing Dr. Carter for pain management and seeing Dr. Stanton for development of coping skills. - Subjective Identification Type Name Identification Reconciled With Medical Record Observations Sofi was seen 1:1 for treatment session. She reported wearing her distal L UE night splint previous night without need of support (to don splint) utilizing previously practiced strategies. Sofi is looking into getting 'straps' for pedal bike to support more regular use in the home. Comment Benefits from caregiver support(s) - Objective Objective Measurements Please refer to below for progress towards meeting established goals. 05/13/22 = no active L ER; no active L elbow flex. WFL L IR and L elbow ext. Short Term Goals 1. Adelaide will demonstrate improved active range of motion of the left upper extremity: 1a. 0-25 degrees active left shoulder extension. 10/07/21 = 50% met; 0-20 degrees. 05/13/22 = 0-20 degrees. 1b. 0-50 degrees active left shoulder flexion. 10/07/21 = 50% met; 0-40 degrees. 05/13/22 = 0 -30 degrees. 1c. 0- 15 degrees active left shoulder abduction. 10/07/21 = 25% met; 0-5 degrees. 05/13/22 = 0-5 degrees. Physical Science Technician Goals 1. Adelaide will be modified independent with execution of upper extremity home exercise program with the support of her caregiver(s) utilizing provided written and visual instructions from therapist. = 25% met GOALS MET Adelaide will be able to don personal night splint for distal left upper extremity, without assistance, utilizing provided written and visual instructions and compensatory strategies, based on verbal caregiver and self-report. * MET 12/09/21 - Treatment 1 Descriptor HEP/POC. Recommended continuing to practice good sitting posture; introduced trunk ext w/ and w/out hold at EOM to support engagement of core and circles CW/CCW w/ L hand positioned in lap for safety reasons. Familiar with these types of exercises. Reviewed e-stim pad placement to engage elbow flex given difficulty w/ this motor plan. Reviewed importance of wearing distal UE splint to support tone management, tone management (positioning hand flat on TT w/ transition to weight shift if having increased difficulty w/ edge of table exercise). Exercises 7 Descriptor Pedal arm bike. Seated. x 5 minutes. Min phys assist to position hand on pedal. 4 Descriptor TT exercises. Functional reaching w/ towel. Infront of body. Circles. Sh abd. 1 x 15. 3 Descriptor UE exercises. TB #1. Modified sh ext. 2 x 10 . Seated. TT. Elbow flex. Scapular retraction. 1 x 15. Sh ext. 1 x 15. Elbow flex. Muscle tapping to facilitate. 1 x 15. Sh flex. 1 x 15. (bolster use) Sh hor add/abd. 1 x 15. ( bolster use). AROM into armaan pattern. 1 x 15 TT. Unable to execute without UE support. 2 Descriptor [place] e-stim. Facilitation of elbow flexion L UE. Skin intact pre- and post- treatment. 10/10 cycle. Intensity = 32. 1 Descriptor Tone management at EOM. Hand; weight shifting to the left. Weight shifting forwards and backwards w/ and without elbow flexion at EOM. Weight shifting at TT. - Assessment Assessment of Improvement Reviewed TT weight bearing exercise versus edge of TT for tone management when presenting w/ increased tone in flexor pattern. Advanced EOM core exercises w/ focus on maintaining good posture. Did much better w/ UE exercises w / distal UE supported on bedside TT and/or bolster. Unable to move into flexed hami pattern against gravity; Need to monitor for distal UE swelling. Will cont to encourage use of night splint and daily execution of tone managemental exercises for distal UE. Discussed some 1- handed techniques for nail care; recommend follow-up re: any other activities that Adelaide may need assistance w/ modifying. Adelaide would likely benefit from outpatient OT to establish appropriate HEP and caregiver training and to address posture, UE range of motion, and provide education to maintain available range of motion. - Plan Therapy Recommendations Continue with Current Program, Advance per Rehabilitation Protocol
--- NOTE | 2022-05-26 12:29 | OT.OP.TRT ---
Visit Care Team Role Provider Type KINJAL Cooper Attending Provider Advanced Director Of Extension Work Family Provider Primary Care Provider Referring Provider Specialty: Family Practice Address: [address] [place] [address], [facility] Email: [email or web address] Occupational Therapy Treatment Note OT Outpatient Treatment Note - Adult Start: 07/31/21 08:56 Freq: Status: Active Protocol: Document 05/26/22 12:21 AMS (Rec: 05/26/22 12:29 AMS [id number]) OT Outpatient Adult Treatment Note Session Time Visit Start Time 10:30 Visit Stop Time 11:25 Total Visit Minutes 55 Visit Information Visit Number 08/[id number] Plan of Care Dates 05/13/22 - 08/05/22 Insurance Information no pre-auth; unlimited visits; Therapist Only Setting Treatment Setting Outpatient Care Visit Type Note Type Treatment Note General Information General Information Adelaide (or Sofi) is a 52 year- old right hand dominant female referred to outpatient OT by PCP, KINJAL Cooper, secondary to residual effects of stroke that occurred in 2014 after having surgery for brain aneurysm. Brittany was previously been seen in the outpatient setting by this OT; she was d/c to home exercise program with intent of returning to OT for upgrading of HEP. Due to inconsistent caregiver support, Brittany reports that she was inconsistent with doing her exercises. She continues to prefer proximal L sh stabilization brace versus Giv Sameer sling (d/t reported discomfort w/ Giv Sameer sling in right armpit from cyst). Brittany reports inconsistent use of night splint. Brittany is receiving outpatient PT for gait/balance/lower extremity weakness. She is also seeing Dr. Carter for pain management and seeing Dr. Stanton for development of coping skills. - Subjective Identification Type Name Identification Reconciled With Medical Record Observations Sofi was accompanied by Radha to treatment session. Report of wearing distal L UE night splint last night; report of using nail file as well to manage jagged corners of nails of L hand. Patient/Caregiver Compliance with Home Good Exercise Program Comment Benefits from caregiver support(s) - Objective Objective Measurements Please refer to below for progress towards meeting established goals. 05/13/22 = no active L ER; no active L elbow flex. WFL L IR and L elbow ext. Short Term Goals 1. Adelaide will demonstrate improved active range of motion of the left upper extremity: 1a. 0-25 degrees active left shoulder extension. 10/07/21 = 50% met; 0-20 degrees. 05/13/22 = 0-20 degrees. 1b. 0-50 degrees active left shoulder flexion. 10/07/21 = 50% met; 0-40 degrees. 05/13/22 = 0 -30 degrees. 1c. 0- 15 degrees active left shoulder abduction. 10/07/21 = 25% met; 0-5 degrees. 05/13/22 = 0-5 degrees. Airplane Technician Goals 1. Adelaide will be modified independent with execution of upper extremity home exercise program with the support of her caregiver(s) utilizing provided written and visual instructions from therapist. = 25% met GOALS MET Adelaide will be able to don personal night splint for distal left upper extremity, without assistance, utilizing provided written and visual instructions and compensatory strategies, based on verbal caregiver and self-report. * MET 12/09/21 - Treatment 1 Descriptor HEP/POC. Recommended combining trunk extension w/ alt leg lift while sitting to challenge trunk/core and orientation to midline from sitting; discussed potential surfaces in the home to ' practice' exercise. Reviewed e -stim pad placement to engage elbow flex given difficulty w/ this motor plan. Reviewed importance of wearing distal UE splint to support tone management, tone management ( positioning hand flat on TT w/ transition to weight shift w/ active trunk flexion). Exercises 7 Descriptor Pedal arm bike. Seated. x 5 minutes. Min phys assist to position hand on pedal. 4 Descriptor TT exercises. Functional reaching w/ towel. Infront of body. Circles. Sh abd. 1 x 15. 3 Descriptor UE exercises. TB #1. Modified sh ext. 2 x 10 . Seated. TT. Elbow flex. Scapular retraction. 1 x 15. Sh ext. 1 x 15. Elbow flex. Muscle tapping to facilitate. 1 x 15. Sh flex. 1 x 15. (bolster use) Sh hor add/abd. 1 x 15. ( bolster use). AROM into armaan pattern. 1 x 15 TT. Unable to execute without UE support. 2 Descriptor Taiwanese e-stim. Facilitation of elbow flexion L UE. Skin intact pre- and post- treatment. 02/15 cycle. Intensity = 32. 1 Descriptor Tone management at EOM. Hand; weight shifting to the left. Weight shifting forwards and backwards w/ and without elbow flexion at EOM. Weight shifting at TT. - Assessment Assessment of Improvement Tendency to weight shift to right/shift to R when combining trunk extension w/ L LE lift. Able to shift to center w/ cueing; cueing to support maintaining neck in alignment w/ trunk w/ trunk ext. Able to identify surfaces in the home to support carry- over of these EOM core trunk core exercises. Increased success w/ actively moving into flexed armaan pattern against gravity in sitting post TT towel exercises w/ muscle tapping to facilitate elbow flex. Decreased tolerance for pushing against therapist and/or object in the environment w/ wrist in ext combined w/ digit extension. Increased alejandro for progression w/ bed side table (palm flat - -> weight shift/pushing --> trunk flex w/ bed side table to left of body). Recommend follow-up re: any other activities that Adelaide may need assistance w/ modifying. Overall, good session. Adelaide would likely benefit from outpatient OT to establish appropriate HEP and caregiver training and to address posture, UE range of motion, and provide education to maintain available range of motion. - Plan Therapy Recommendations Continue with Current Program, Advance per Rehabilitation Protocol
--- NOTE | 2022-05-31 11:43 | OT.OP.TRT ---
Visit Care Team Role Provider Type KINJAL Cooper Attending Provider [employer]or Assembler Family Provider Primary Care Provider Referring Provider Specialty: Family Practice Address: [address] [place] [address], [facility] Email: [email or web address] Occupational Therapy Treatment Note OT Outpatient Treatment Note - Adult Start: 07/31/21 08:56 Freq: Status: Active Protocol: Document 05/31/22 11:32 AMS (Rec: 05/31/22 11:43 AMS [id number]) OT Outpatient Adult Treatment Note Session Time Visit Start Time 10:30 Visit Stop Time 11:20 Total Visit Minutes 50 Visit Information Visit Number 09/15 Plan of Care Dates 05/13/22 - 08/05/22 Insurance Information no pre-auth; unlimited visits; Therapist Only Setting Treatment Setting Outpatient Care Visit Type Note Type Treatment Note General Information General Information Adelaide (or Sfoi) is a 52 year- old right hand dominant female referred to outpatient OT by PCP, KINJAL Cooper, secondary to residual effects of stroke that occurred in 2014 after having surgery for brain aneurysm. Brittany was previously been seen in the outpatient setting by this OT; she was d/c to home exercise program with intent of returning to OT for upgrading of HEP. Due to inconsistent caregiver support, Brittany reports that she was inconsistent with doing her exercises. She continues to prefer proximal L sh stabilization brace versus Giv Sameer sling (d/t reported discomfort w/ Giv Sameer sling in right armpit from cyst). Brittany reports inconsistent use of night splint. Brittany is receiving outpatient PT for gait/balance/lower extremity weakness. She is also seeing Dr. Carter for pain management and seeing Dr. Stanton for development of coping skills. - Subjective Identification Type Name Identification Reconciled With Medical Record Observations Sofi was accompanied by Luke to treatment session. Report of wearing distal L UE night splint previous night; report of not wearing L shoulder subluxation sling on weekends. Patient/Caregiver Compliance with Home Good Exercise Program Comment Benefits from caregiver support(s) - Objective Objective Measurements Please refer to below for progress towards meeting established goals. 05/13/22 = no active L ER; no active L elbow flex. WFL L IR and L elbow ext. Short Term Goals 1. Adelaide will demonstrate improved active range of motion of the left upper extremity: 1a. 0-25 degrees active left shoulder extension. 10/07/21 = 50% met; 0-20 degrees. 05/13/22 = 0-20 degrees. 1b. 0-50 degrees active left shoulder flexion. 10/07/21 = 50% met; 0-40 degrees. 05/13/22 = 0 -30 degrees. 1c. 0- 15 degrees active left shoulder abduction. 10/07/21 = 25% met; 0-5 degrees. 05/13/22 = 0-5 degrees. Launch Steward Goals 1. Adelaide will be modified independent with execution of upper extremity home exercise program with the support of her caregiver(s) utilizing provided written and visual instructions from therapist. = 25% met GOALS MET Adelaide will be able to don personal night splint for distal left upper extremity, without assistance, utilizing provided written and visual instructions and compensatory strategies, based on verbal caregiver and self-report. * MET 12/09/21 - Treatment 1 Descriptor HEP/POC. Recommended combining trunk extension w/ alt leg lift while sitting to challenge trunk/core and orientation to midline from sitting; discussed potential surfaces in the home to ' practice' exercise. Reviewed supine cane exercises (sh abduction, elbow flex w/ forearm pronation, scapular protraction/retraction ( punches)). Recommended holding stretch for 20 to 30 seconds. Reviewed TT stretch cross arm /'x' w/ positioning of digits on 'edge' of table and trialed sh abd stretch w/ trunk rotation w/ use of edge of surface w/ arm positioned to the left of the body. Recommended holding stretch for 20 to 30 seconds. Reviewed seated punch w/ cane. Reviewed joint protection principles relative to the R thumb; increased strain on R thumb when pad positioned on cane. Reviewed importance of wearing distal UE splint to support tone management, tone management (positioning hand flat on TT w/ transition to weight shift w/ active trunk flexion). Exercises 7 Descriptor Pedal arm bike. Seated. x 5 minutes. Min phys assist to position hand on pedal. 4 Descriptor TT exercises. Functional reaching w/ towel. Infront of body. Circles. Sh abd. 1 x 15. 3 Descriptor UE exercises. TB #1. Modified sh ext. 2 x 10 . Seated. TT. Elbow flex. Scapular retraction. 1 x 15. Sh ext. 1 x 15. Elbow flex. Muscle tapping to facilitate. 1 x 15. Sh flex. 1 x 15. (bolster use) Sh hor add/abd. 1 x 15. ( bolster use). AROM into armaan pattern. 1 x 15 TT. Unable to execute without UE support. 1 Descriptor Tone management at EOM. Hand; weight shifting to the left. Weight shifting forwards and backwards w/ and without elbow flexion at EOM. Weight shifting at TT. - Assessment Assessment of Improvement Report of stretching arm throughout the day and completing punches at night- time on daily basis. Will need to modify HEP (self-directed exercises vs exercises w/ caregiver support) to support carry-over. When table clear completes TT exercises; needs to secure UEB to surface; completes nighttime stretches/ punches/ROM w/ assist of R at nighttime; and has built-up cane available in the home. Min v.c. to support posture and orientation to midline w/ completion of UE exercises. Unable to flatten hand at EOM despite preparatory TT tone management exercises; thus, did not complete standing tone management. Weight shift to R when uncomfortable w/ tone management at bedside TT. Need to work on carry-over/ consistency w/ tone management ; need to work on HEP. Overall , good session. Adelaide would likely benefit from outpatient OT to establish appropriate HEP and caregiver training and to address posture, UE range of motion, and provide education to maintain available range of motion. - Plan Therapy Recommendations Continue with Current Program, Advance per Rehabilitation Protocol
--- NOTE | 2022-06-02 11:34 | OT.OP.TRT ---
Visit Care Team Role Provider Type KINJAL Cooper Attending Provider Advanced [employer]r Family Provider Primary Care Provider Referring Provider Specialty: Family Practice Address: [address] [place] [address], [facility] Email: [email or web address] Occupational Therapy Treatment Note OT Outpatient Treatment Note - Adult Start: 07/31/21 08:56 Freq: Status: Active Protocol: Document 06/02/22 11:22 AMS (Rec: 06/02/22 11:34 AMS [id number]) OT Outpatient Adult Treatment Note Session Time Visit Start Time 10:30 Visit Stop Time 11:15 Total Visit Minutes 45 Visit Information Visit Number 10/16 Plan of Care Dates 05/13/22 - 08/05/22 Insurance Information no pre-auth; unlimited visits; Therapist Only Setting Treatment Setting Outpatient Care Visit Type Note Type Treatment Note General Information General Information Adelaide (or Sofi) is a 52 year- old right hand dominant female referred to outpatient OT by PCP, KINJAL Cooper, secondary to residual effects of stroke that occurred in 2014 after having surgery for brain aneurysm. Brittany was previously been seen in the outpatient setting by this OT; she was d/c to home exercise program with intent of returning to OT for upgrading of HEP. Due to inconsistent caregiver support, Brittany reports that she was inconsistent with doing her exercises. She continues to prefer proximal L sh stabilization brace versus Giv Sameer sling (d/t reported discomfort w/ Giv Sameer sling in right armpit from cyst). Brittany reports inconsistent use of night splint. Brittany is receiving outpatient PT for gait/balance/lower extremity weakness. She is also seeing Dr. Carter for pain management and seeing Dr. Stanton for development of coping skills. - Subjective Identification Type Name Identification Reconciled With Medical Record Observations Sfoi was accompanied by caregiver, Luke, to treatment session. Arrived without L sh subluxation sling; report of wearing distal L UE night splint previous night. c/o L hip pain post- previous OT treatment session. Dizziness reported post- standing; water was provided/as well as break . No additional assistance was needed to s-s and/or mobility out of clinic. Patient/Caregiver Compliance with Home Good Exercise Program Comment Benefits from caregiver support(s) - Objective Objective Measurements Please refer to below for progress towards meeting established goals. 05/13/22 = no active L ER; no active L elbow flex. WFL L IR and L elbow ext. Short Term Goals 1. Adelaide will demonstrate improved active range of motion of the left upper extremity: 1a. 0-25 degrees active left shoulder extension. 10/07/21 = 50% met; 0-20 degrees. 05/13/22 = 0-20 degrees. 1b. 0-50 degrees active left shoulder flexion. 10/07/21 = 50% met; 0-40 degrees. 05/13/22 = 0 -30 degrees. 1c. 0- 15 degrees active left shoulder abduction. 10/07/21 = 25% met; 0-5 degrees. 05/13/22 = 0-5 degrees. Mcc Goals 1. Adelaide will be modified independent with execution of upper extremity home exercise program with the support of her caregiver(s) utilizing provided written and visual instructions from therapist. = 25% met GOALS MET Adelaide will be able to don personal night splint for distal left upper extremity, without assistance, utilizing provided written and visual instructions and compensatory strategies, based on verbal caregiver and self-report. * MET 12/09/21 - Treatment 2 Descriptor Trunk/core. Alt leg lift hold 3 to 5 seconds. 1 jean of 5 repetitions. Blue balance disk EOM. Trunk ext EOM. 1 x 5; hold x 5 seconds. 1 Descriptor HEP/POC. Recommended combining trunk extension w/ alt leg lift while sitting to challenge trunk/core and orientation to midline from sitting. Reviewed importance of wearing distal UE night splint to support tone management and tone management (positioning hand flat on TT w/ transition to weight shift w/ active trunk flexion). Exercises 7 Descriptor Pedal arm bike. Seated. x 5 minutes. Min phys assist to position hand on pedal. 4 Descriptor TT exercises. Functional reaching w/ towel. Infront of body. Circles. Sh abd. 1 x 15. 3 Descriptor UE exercises. TB #2. Modified sh ext. 2 x 10 . Seated. TT. Elbow flex. Scapular retraction seated. 2 x 10. AROM into armaan pattern. 1 x 15 TT. Unable to execute without UE support. Standing. Pendulum. Sh ext combined w/ sh flex. 2 x 10. Scapular retraction combined w / sh ext. 2 x 10. 1 Descriptor Tone management at EOM. Hand; weight shifting to the left. Weight shifting forwards and backwards w/ and without elbow flexion TT. - Assessment Assessment of Improvement Upgraded trunk/core exercises at EOM. c/o pain/discomfort L hip post- last OT session ( will monitor alt marches w/ trunk/core and supine UE and impact on hip tightness). Discomfort of 2nd DIPJ, as well as 4th DIPJ particularly w/ tone management. Able to self-identify importance of positioning of L UE and impact on success w/ donning of L distal UE night splint. Will need to monitor L shoulder subluxation sling use. Difficulty w/ weight shifting to L in standing when asked to execute pendulum or scapular exercises; recommend repeating . Self-awareness however, re: that she was not shifted to the left when executing. Overall, good session. Adelaide would likely benefit from outpatient OT to establish appropriate HEP and caregiver training and to address posture, UE range of motion, and provide education to maintain available range of motion. - Plan Therapy Recommendations Continue with Current Program, Advance per Rehabilitation Protocol
--- NOTE | 2022-06-07 11:44 | OT.OP.TRT ---
Visit Care Team Role Provider Type KINJAL Cooper Attending Provider Advanced Senior Electrical Project Manager Family Provider Primary Care Provider Referring Provider Specialty: Family Practice Address: [address] [place] [address], [facility] Email: [email or web address] Occupational Therapy Treatment Note OT Outpatient Treatment Note - Adult Start: 07/31/21 08:56 Freq: Status: Active Protocol: Document 06/07/22 11:33 AMS (Rec: 06/07/22 11:44 AMS [id number]) OT Outpatient Adult Treatment Note Session Time Visit Start Time 10:30 Visit Stop Time 11:23 Total Visit Minutes 53 Visit Information Visit Number 11/15 Plan of Care Dates 05/13/22 - 08/05/22 Insurance Information no pre-auth; unlimited visits; Therapist Only Setting Treatment Setting Outpatient Care Visit Type Note Type Treatment Note General Information General Information Adelaide (or Sofi) is a 52 year- old right hand dominant female referred to outpatient OT by PCP, KINJAL Cooper, secondary to residual effects of stroke that occurred in 2014 after having surgery for brain aneurysm. Brittany was previously been seen in the outpatient setting by this OT; she was d/c to home exercise program with intent of returning to OT for upgrading of HEP. Due to inconsistent caregiver support, Brittany reports that she was inconsistent with doing her exercises. She continues to prefer proximal L sh stabilization brace versus Giv Sameer sling (d/t reported discomfort w/ Giv Sameer sling in right armpit from cyst). Brittany reports inconsistent use of night splint. Brittany is receiving outpatient PT for gait/balance/lower extremity weakness. She is also seeing Dr. Carter for pain management and seeing Dr. Stanton for development of coping skills. - Subjective Identification Type Name Identification Reconciled With Medical Record Observations Sofi was accompanied by caregiver, Luke, to treatment session. Arrived without L sh subluxation sling; report of wearing sling intermittently over the weekend. Report of lower back pain and tightness of hip flexors. Patient/Caregiver Compliance with Home Good Exercise Program Comment Benefits from caregiver support(s) - Objective Objective Measurements Please refer to below for progress towards meeting established goals. 05/13/22 = no active L ER; no active L elbow flex. WFL L IR and L elbow ext. Short Term Goals 1. Adelaide will demonstrate improved active range of motion of the left upper extremity: 1a. 0-25 degrees active left shoulder extension. 10/07/21 = 50% met; 0-20 degrees. 05/13/22 = 0-20 degrees. 1b. 0-50 degrees active left shoulder flexion. 10/07/21 = 50% met; 0-40 degrees. 05/13/22 = 0 -30 degrees. 1c. 0- 15 degrees active left shoulder abduction. 10/07/21 = 25% met; 0-5 degrees. 05/13/22 = 0-5 degrees. Electrical Transmission Engineer Goals 1. Adelaide will be modified independent with execution of upper extremity home exercise program with the support of her caregiver(s) utilizing provided written and visual instructions from therapist. = 25% met GOALS MET Adelaide will be able to don personal night splint for distal left upper extremity, without assistance, utilizing provided written and visual instructions and compensatory strategies, based on verbal caregiver and self-report. * MET 12/09/21 - Treatment 2 Descriptor Trunk/core. Posture. Feet positioned on bolster. Trunk ext 1 x 10. Modified diagonals R -> L 1 x 5; Modified diagonals L -> R 1 x 5 and 1 x 5 w/ UE weight bearing. 1 Descriptor HEP/POC. Recommended positioning of both feet on bolster as an alternative to balance disk and/or alt LE lifts (if hip flexor tightness w/ subsequent low back pain exacerbated). Reviewed importance of wearing distal UE night splint to support tone management and tone management (positioning hand flat on TT w/ transition to weight shift w/ active trunk flexion). Set-up of personal UBE has occurred (location); now Sofi and caregiver are looking to identify straps. Exercises 7 Descriptor Pedal arm bike. Seated. x 5 minutes. Min phys assist to position hand on pedal. 4 Descriptor TT exercises. Functional reaching w/ towel. Infront of body. Circles. Sh abd. 1 x 15. 3 Descriptor UE exercises. TB #2. Modified sh ext. 2 x 10 . Seated. TT. Elbow flex. Scapular retraction seated. 2 x 10. Cane exercise(s). Seated row. 2 x 10. Forearm 90 degrees supination w/ pushing away/ seated row. 2 x 10. 1 Descriptor Tone management at EOM. Hand; weight shifting to the left. Weight shifting forwards and backwards w/ and without elbow flexion TT. - Assessment Assessment of Improvement Modified trunk/core strengthening at EOM; positioning of bilateral feet on bolster at floor level. Focus on trunk ext within pain -free ROM. Improving awareness of posture w/ self correction particularly when seated! Increasing tolerance for weight bearing through the distal L UE; able to complete TT and EOM work --> then transition to standing at TT w / hand being positioned flat on surface. (+) response to cane/'pushing away' exercises. Recommend re-visiting pendulum exercise. Will need to continue to monitor L shoulder subluxation sling use . Overall, good session. Adelaide would likely benefit from outpatient OT to establish appropriate HEP and caregiver training and to address posture, UE range of motion, and provide education to maintain available range of motion. - Plan Therapy Recommendations Continue with Current Program, Advance per Rehabilitation Protocol
--- NOTE | 2022-06-09 13:28 | OT.OP.TRT ---
Visit Care Team Role Provider Type KINJAL Cooper Attending Provider Advanced Sustainability Project Coordinator Family Provider Primary Care Provider Referring Provider Specialty: Family Practice Address: [address] [place] [address], [facility] Email: [email or web address] Occupational Therapy Treatment Note OT Outpatient Treatment Note - Adult Start: 07/31/21 08:56 Freq: Status: Active Protocol: Document 06/09/22 13:22 AMS (Rec: 06/09/22 13:28 AMS [id number]) OT Outpatient Adult Treatment Note Session Time Visit Start Time 10:30 Visit Stop Time 11:23 Total Visit Minutes 53 Visit Information Visit Number 12/16 Plan of Care Dates 05/13/22 - 08/05/22 Insurance Information no pre-auth; unlimited visits; Therapist Only Setting Treatment Setting Outpatient Care Visit Type Note Type Treatment Note General Information General Information Adelaide (or Sofi) is a 52 year- old right hand dominant female referred to outpatient OT by PCP, KINJAL Cooper, secondary to residual effects of stroke that occurred in 2014 after having surgery for brain aneurysm. Brittany was previously been seen in the outpatient setting by this OT; she was d/c to home exercise program with intent of returning to OT for upgrading of HEP. Due to inconsistent caregiver support, Brittany reports that she was inconsistent with doing her exercises. She continues to prefer proximal L sh stabilization brace versus Giv Sameer sling (d/t reported discomfort w/ Giv Sameer sling in right armpit from cyst). Brittany reports inconsistent use of night splint. Brittany is receiving outpatient PT for gait/balance/lower extremity weakness. She is also seeing Dr. Carter for pain management and seeing Dr. Stanton for development of coping skills. - Subjective Identification Type Name Identification Reconciled With Medical Record Observations Sofi was accompanied by caregiver, Luke, to treatment session. Arrived without L sh subluxation sling. Patient/Caregiver Compliance with Home Good Exercise Program Comment Benefits from caregiver support(s) - Objective Objective Measurements Please refer to below for progress towards meeting established goals. 05/13/22 = no active L ER; no active L elbow flex. WFL L IR and L elbow ext. Short Term Goals 1. Adelaide will demonstrate improved active range of motion of the left upper extremity: 1a. 0-25 degrees active left shoulder extension. 10/07/21 = 50% met; 0-20 degrees. 05/13/22 = 0-20 degrees. 1b. 0-50 degrees active left shoulder flexion. 10/07/21 = 50% met; 0-40 degrees. 05/13/22 = 0 -30 degrees. 1c. 0- 15 degrees active left shoulder abduction. 10/07/21 = 25% met; 0-5 degrees. 05/13/22 = 0-5 degrees. Correction Goals 1. Adelaide will be modified independent with execution of upper extremity home exercise program with the support of her caregiver(s) utilizing provided written and visual instructions from therapist. = 25% met GOALS MET Adelaide will be able to don personal night splint for distal left upper extremity, without assistance, utilizing provided written and visual instructions and compensatory strategies, based on verbal caregiver and self-report. * MET 12/09/21 - Treatment 2 Descriptor Trunk/core. Posture. Feet positioned on bolster. Trunk ext 1 x 10. Modified diagonals R -> L 1 x 5; Modified diagonals L -> R 1 x 5 and 1 x 5 w/ UE weight bearing. 1 Descriptor HEP/POC. Recommended working on 'horizontal bar' push-ups, 2 sets of 10 reps. Reviewed importance of wearing distal UE night splint to support tone management and tone management (positioning hand flat on TT w/ transition to weight shift w/ active trunk flexion). Set-up of personal UBE has occurred (location) and UBE has been strapped to surface. Adelaide to trial its use over the coming days. Exercises 7 Descriptor Pedal arm bike. Seated. x 5 minutes. Min phys assist to position hand on pedal. 4 Descriptor TT exercises. Functional reaching w/ towel. Infront of body. Circles. Sh abd. 1 x 15. 3 Descriptor UE exercises. TB #2. Modified sh ext. 2 x 10 . Seated. TT. Elbow flex. Scapular retraction seated. 2 x 10. N/A Cane exercise(s). Seated row. 2 x 10. Forearm 90 degrees supination w/ pushing away/seated row. 2 x 10. 2 Descriptor Parallel bar. 2 x 10. Modified push-ups in standing. Focusing on technique/quality of execution . 1 x 10. Pulling self up into standing. 1 Descriptor Tone management at EOM. Hand; weight shifting to the left. Weight shifting forwards and backwards w/ and without elbow flexion TT. - Assessment Assessment of Improvement (+) reported set-up of UBE in the home; Adelaide to trial home UBE. Recommend follow-up re: set-up/ability to utilize on own without support. Introduced parallel bar exercises; recommend revisiting these exercises and expanding upon as able/ tolerated. Adelaide and Luke report availability of horizontal grab bar in the home's bathroom. (+) pendulum execution; will look to increase ROM w/ incorporation of visual cues/environmental cues. Overall, good session. Adelaide would likely benefit from outpatient OT to establish appropriate HEP and caregiver training and to address posture, UE range of motion, and provide education to maintain available range of motion. - Plan Therapy Recommendations Continue with Current Program, Advance per Rehabilitation Protocol
--- NOTE | 2022-06-14 12:49 | OT.OP.TRT ---
Visit Care Team Role Provider Type KINJAL Cooper Attending Provider Advanced Arboriculturist Family Provider Primary Care Provider Referring Provider Specialty: Family Practice Address: [address] [place] [address], [facility] Email: [email or web address] Occupational Therapy Treatment Note OT Outpatient Treatment Note - Adult Start: 07/31/21 08:56 Freq: Status: Active Protocol: Document 06/14/22 12:37 AMS (Rec: 06/14/22 12:49 AMS [id number]) OT Outpatient Adult Treatment Note Session Time Visit Start Time 10:30 Visit Stop Time 11:23 Total Visit Minutes 53 Visit Information Plan of Care Dates 05/13/22 - 08/05/22 Insurance Information no pre-auth; unlimited visits; Therapist Only Setting Treatment Setting Outpatient Care Visit Type Note Type Treatment Note General Information General Information Adelaide (or Sofi) is a 52 year- old right hand dominant female referred to outpatient OT by PCP, KINJAL Cooper, secondary to residual effects of stroke that occurred in 2014 after having surgery for brain aneurysm. Brittany was previously been seen in the outpatient setting by this OT; she was d/c to home exercise program with intent of returning to OT for upgrading of HEP. Due to inconsistent caregiver support, Brittany reports that she was inconsistent with doing her exercises. She continues to prefer proximal L sh stabilization brace versus Giv Sameer sling (d/t reported discomfort w/ Giv Sameer sling in right armpit from cyst). Brittany reports inconsistent use of night splint. Brittany is receiving outpatient PT for gait/balance/lower extremity weakness. She is also seeing Dr. Carter for pain management and seeing Dr. Stanton for development of coping skills. - Subjective Identification Type Name Identification Reconciled With Medical Record Observations Sofi was seen 1:1 for OT treatment session. Report ' fasting' d/t need for bloodwork. Patient/Caregiver Compliance with Home Good Exercise Program Comment Benefits from caregiver support(s) - Objective Objective Measurements Please refer to below for progress towards meeting established goals. 05/13/22 = no active L ER; no active L elbow flex. WFL L IR and L elbow ext. Short Term Goals 1. Adelaide will demonstrate improved active range of motion of the left upper extremity: 1a. 0-25 degrees active left shoulder extension. 10/07/21 = 50% met; 0-20 degrees. 05/13/22 = 0-20 degrees. 1b. 0-50 degrees active left shoulder flexion. 10/07/21 = 50% met; 0-40 degrees. 05/13/22 = 0 -30 degrees. 1c. 0- 15 degrees active left shoulder abduction. 10/07/21 = 25% met; 0-5 degrees. 05/13/22 = 0-5 degrees. Correction Goals 1. Adelaide will be modified independent with execution of upper extremity home exercise program with the support of her caregiver(s) utilizing provided written and visual instructions from therapist. = 25% met GOALS MET Adelaide will be able to don personal night splint for distal left upper extremity, without assistance, utilizing provided written and visual instructions and compensatory strategies, based on verbal caregiver and self-report. * MET 12/09/21 - Treatment 1 Descriptor HEP/POC. Reviewed importance of wearing distal left upper extremity night splint; discussed impact of L UE shoulder subluxation brace relative to L sh pain symptoms . Reviewed positioning of L UE on TT w/ drawing/engaging in meaningful activities. Current set-up of UBE is accessible to Sofi and she reported ability to utilize equip on own x 1 occasion; need to follow-up re: L hand positioning/strap. Exercises 7 Descriptor Pedal arm bike. Seated. x 5 minutes. Min phys assist to position hand on pedal. 5 Descriptor Trunk/core sitting exercises. Seated w/ feet positioned on bolster. Trunk ext. 2 x 10. Modified diagonals 1 x 5 each diagonal. 't' positioning of R arm. 1 x 5. 4 Descriptor TT exercises. Functional reaching w/ towel. Infront of body. Circles. Sh abd. 1 x 15. 3 Descriptor UE exercises. TB #2. Modified sh ext. 2 x 10 . Seated. TT. Elbow flex. Scapular retraction seated. 2 x 10. N/A Cane exercise(s). Seated row. 2 x 10. Forearm 90 degrees supination w/ pushing away/seated row. 2 x 10. 2 Descriptor Parallel bar. 2 x 10. Modified push-ups in standing. Focusing on technique/quality of execution . 1 x 10. Pulling self up into standing. 1 Descriptor Tone management at EOM. Hand; weight shifting to the left. Weight shifting forwards and backwards w/ and without elbow flexion TT. - Assessment Assessment of Improvement (+) reported set-up of UBE in the home and use x 1 occasion; need to follow-up re: L hand electrical electronics engineer/handle. Sofi arrived to session fasting d/t ordered bloodwork. Thus, modified treatment session to complete most exercises seated. Introduced exercise handle w/ resisted TB#1 sitting; recommend repeating. Upgraded seated trunk/core strengthening; focus on pain- free trunk ext. Introduced modified 't' w/ R arm. Recommend considering use of light weight for upgrading trunk/core EOM exercises. Overall, good session. Adelaide would likely benefit from outpatient OT to establish appropriate HEP and caregiver training and to address posture, UE range of motion, and provide education to maintain available range of motion. - Plan Therapy Recommendations Continue with Current Program, Advance per Rehabilitation Protocol
--- NOTE | 2022-06-16 11:58 | OT.OP.TRT ---
Visit Care Team Role Provider Type KINJAL Cooper Attending Provider Advanced Heel Painter Family Provider Primary Care Provider Referring Provider Specialty: Family Practice Address: [address] [place] [address], [facility] Email: [email or web address] Occupational Therapy Treatment Note OT Outpatient Treatment Note - Adult Start: 07/31/21 08:56 Freq: Status: Active Protocol: Document 06/16/22 11:49 [facility] (Rec: 06/16/22 11:57 [facility] [id number]) OT Outpatient Adult Treatment Note Session Time Visit Start Time 10:30 Visit Stop Time 11:25 Total Visit Minutes 55 Visit Information Plan of Care Dates 05/13/22 - 08/05/22 Insurance Information no pre-auth; unlimited visits; Therapist Only Setting Treatment Setting Outpatient Care Visit Type Note Type Treatment Note General Information General Information Adelaide (or Sofi) is a 52 year- old right hand dominant female referred to outpatient OT by PCP, KINJAL Cooper, secondary to residual effects of stroke that occurred in 2014 after having surgery for brain aneurysm. Brittany was previously been seen in the outpatient setting by this OT; she was d/c to home exercise program with intent of returning to OT for upgrading of HEP. Due to inconsistent caregiver support, Brittany reports that she was inconsistent with doing her exercises. She continues to prefer proximal L sh stabilization brace versus Giv Sameer sling (d/t reported discomfort w/ Giv Sameer sling in right armpit from cyst). Brittany reports inconsistent use of night splint. Brittany is receiving outpatient PT for gait/balance/lower extremity weakness. She is also seeing Dr. Carter for pain management and seeing Dr. Stanton for development of coping skills. - Subjective Identification Type Name Identification Reconciled With Medical Record Observations Luke accompanied Adelaide for a portion of the session. Report of difficulty sleeping previous night w/ waking of L UE discomfort. Patient/Caregiver Compliance with Home Good Exercise Program Comment Benefits from caregiver support(s) - Objective Objective Measurements Please refer to below for progress towards meeting established goals. 05/13/22 = no active L ER; no active L elbow flex. WFL L IR and L elbow ext. Short Term Goals 1. Adelaide will demonstrate improved active range of motion of the left upper extremity: 1a. 0-25 degrees active left shoulder extension. 10/07/21 = 50% met; 0-20 degrees. 05/13/22 = 0-20 degrees. 1b. 0-50 degrees active left shoulder flexion. 10/07/21 = 50% met; 0-40 degrees. 05/13/22 = 0 -30 degrees. 1c. 0- 15 degrees active left shoulder abduction. 10/07/21 = 25% met; 0-5 degrees. 05/13/22 = 0-5 degrees. Automotive Sales Manager Goals 1. Adelaide will be modified independent with execution of upper extremity home exercise program with the support of her caregiver(s) utilizing provided written and visual instructions from therapist. = 25% met GOALS MET Adelaide will be able to don personal night splint for distal left upper extremity, without assistance, utilizing provided written and visual instructions and compensatory strategies, based on verbal caregiver and self-report. * MET 12/09/21 - Treatment 2 Descriptor Trunk/core. Posture. Feet positioned on bolster. Trunk ext 1 x 10. Modified diagonals R -> L 1 x 5; Modified diagonals L -> R 1 x 5 and 1 x 5 w/ UE weight bearing. 1 Descriptor HEP/POC. Reviewed importance of wearing distal left upper extremity night splint; discussed impact of L UE shoulder subluxation brace relative to L sh pain symptoms . Discussed completing trunk flex at horizontal grab bar available in the home. Exercises 10 Descriptor Supine Exercises. Chest press. 3x10. Min phys assist to support. 2# DB. Sh flexion. 2x10. 9 Descriptor TT unilateral exercises. 6 Descriptor Resistant UE exercises. Elbow ext. 3# TB. 2 x 15. 5 Descriptor Trunk/core sitting exercises. Seated w/ feet positioned on bolster. Trunk ext. 2 x 10. Modified diagonals 1 x 10 each diagonal. 2.2# weighted spherical ball. Trunk extension at EOM. 1 x 10 . 4 Descriptor TT exercises. Functional reaching w/ towel. Infront of body. Circles. Sh abd. 1 x 15. 3 Descriptor UE exercises. TB #2. Modified seated sh ext. 2 x 10. TB #2. Modified seated row. 2 x 10. Scapular retraction seated. 2 x 10. N/A Cane exercise(s). Seated row. 2 x 10. Forearm 90 degrees supination w/ pushing away/seated row. 2 x 10. 2 Descriptor Parallel bar. Use of dycem. Weight shift L < -> R standing. 1 x 10. Use of dycem. Trunk flexion. 1 x 10. 1 Descriptor Tone management at EOM. Hand; weight shifting to the left. Weight shifting forwards and backwards w/ and without elbow flexion TT. - Assessment Assessment of Improvement Upgraded seated trunk/core strengthening to inclusion of weighted spherical ball at center of gravity. Improved performance w/ seated resistant row; decreased phys assistance needed to facilitate functional movement pattern. Discomfort reported in L LE; thus, modified elbow flex/ext exercise to trunk flex. Increased comfort reported. Recommended practicing of this exercise in the home. Overall, good session. Adelaide would likely benefit from outpatient OT to establish appropriate HEP and caregiver training and to address posture, UE range of motion, and provide education to maintain available range of motion. - Plan Therapy Recommendations Continue with Current Program, Advance per Rehabilitation Protocol
--- NOTE | 2022-06-23 13:30 | OT.OP.TRT ---
Visit Care Team Role Provider Type KINJAL Cooper Attending Provider Advanced Instructor Ground Services Family Provider Primary Care Provider Referring Provider Specialty: Family Practice Address: [address] [place] [address], [facility] Email: [email or web address] Occupational Therapy Treatment Note OT Outpatient Treatment Note - Adult Start: 07/31/21 08:56 Freq: Status: Active Protocol: Document 06/23/22 13:21 AMS (Rec: 06/23/22 13:29 AMS [id number]) OT Outpatient Adult Treatment Note Session Time Visit Start Time 10:30 Visit Stop Time 11:25 Total Visit Minutes 55 Visit Information Plan of Care Dates 05/13/22 - 08/05/22 Insurance Information no pre-auth; unlimited visits; Therapist Only Setting Treatment Setting Outpatient Care Visit Type Note Type Treatment Note General Information General Information Adelaide (or Sofi) is a 52 year- old right hand dominant female referred to outpatient OT by PCP, KIJNAL Cooper, secondary to residual effects of stroke that occurred in 2014 after having surgery for brain aneurysm. Brittany was previously been seen in the outpatient setting by this OT; she was d/c to home exercise program with intent of returning to OT for upgrading of HEP. Due to inconsistent caregiver support, Brittany reports that she was inconsistent with doing her exercises. She continues to prefer proximal L sh stabilization brace versus Giv Sameer sling (d/t reported discomfort w/ Giv Sameer sling in right armpit from cyst). Brittany reports inconsistent use of night splint. Brittany is receiving outpatient PT for gait/balance/lower extremity weakness. She is also seeing Dr. Carter for pain management and seeing Dr. Stanton for development of coping skills. - Subjective Identification Type Name Identification Reconciled With Medical Record Observations Adelaide indicated that 'she is getting a dog'. (+) intermittent use of UBE in the home; denied use of UBE past weekend. Report of practicing 'bar' exercises over the weekend while sitting in personal w/c. Patient/Caregiver Compliance with Home Good Exercise Program Comment Benefits from caregiver support(s) - Objective Objective Measurements Please refer to below for progress towards meeting established goals. 05/13/22 = no active L ER; no active L elbow flex. WFL L IR and L elbow ext. Short Term Goals 1. Adleaide will demonstrate improved active range of motion of the left upper extremity: 1a. 0-25 degrees active left shoulder extension. 10/07/21 = 50% met; 0-20 degrees. 05/13/22 = 0-20 degrees. 1b. 0-50 degrees active left shoulder flexion. 10/07/21 = 50% met; 0-40 degrees. 05/13/22 = 0 -30 degrees. 1c. 0- 15 degrees active left shoulder abduction. 10/07/21 = 25% met; 0-5 degrees. 05/13/22 = 0-5 degrees. Chcf Goals 1. Adelaide will be modified independent with execution of upper extremity home exercise program with the support of her caregiver(s) utilizing provided written and visual instructions from therapist. = 25% met GOALS MET Adelaide will be able to don personal night splint for distal left upper extremity, without assistance, utilizing provided written and visual instructions and compensatory strategies, based on verbal caregiver and self-report. * MET 12/09/21 - Treatment 1 Descriptor HEP/POC. Discussed use of dycem w/ grab bar exercises ( elbow flex/ext in standing at bar; pushing/pulling in standing at bar; weight shift L <-> R in standing at bar). Practiced exercises in treatment session. Recommend reviewing. Discussed use of shoulder sling/tone distal UE splint. Exercises 5 Descriptor Trunk/core sitting exercises. Seated w/ feet positioned on bolster. Trunk ext. 3 x 10. 2.2# weighted spherical ball. Trunk extension at EOM. 3 x 10 . Modified diagonals 2 x 10 each diagonal. 4 Descriptor TT exercises. Functional reaching w/ towel. Infront of body. Circles. Sh abd. 1 x 15. 3 Descriptor UE exercises. TB #1. Modified seated sh ext. 2 x 10. TB #1. Modified seated row. 2 x 10. Pendulum exercise. Standing. 2 x 10. PNF diagonals; PROM by therapist. 1 x 10. 2 Descriptor Parallel bar. #36 height. Use of dycem. Weight shift L < -> R standing. 1 x 10. Use of dycem. Trunk flexion. 1 x 10. Use of dycem. Pushing pulling. 1 x 10. 1 Descriptor Tone management at EOM. Hand; weight shifting to the left. Weight shifting forwards and backwards w/ and without elbow flexion TT. - Assessment Assessment of Improvement Upgraded seated trunk/core strengthening to inclusion of weighted spherical ball at center of gravity w/ diagonals ; increased number of repetitions. No c/o pain/ discomfort. Will be having telehealth MD appt following day; to discuss depressive symptoms. Report of getting small dog in the near future. (-) wearing of L shoulder sling; (+) use of cross bag purse. Difficulty w/ splint coming off in the middle of night; however, did go to sleep w/ splint on. Denied L LE discomfort w/ grab bar exercises; will look for dycem in the home to support use w/ grab bar exercises. Increased success w/ motor planning sh flex following sh ext ( pendulum); decreased need for need to break down motor task. Overall, good session. Adelaide would likely benefit from outpatient OT to establish appropriate HEP and caregiver training and to address posture, UE range of motion, and provide education to maintain available range of motion. - Plan Therapy Recommendations Continue with Current Program, Advance per Rehabilitation Protocol
--- NOTE | 2022-06-30 11:10 | OT.OP.TRT ---
Visit Care Team Role Provider Type KINJAL Cooper Attending Provider Advanced Air Brake Tester Family Provider Primary Care Provider Referring Provider Specialty: Family Practice Address: [address] [place] [address], [id number] Email: [email or web address] Occupational Therapy Treatment Note OT Outpatient Treatment Note - Adult Start: 07/31/21 08:56 Freq: Status: Active Protocol: Document 06/30/22 11:08 [facility] (Rec: 06/30/22 11:10 [facility] [id number]) OT Outpatient Adult Treatment Note Visit Information Plan of Care Dates 05/13/22 - 08/05/22 Insurance Information no pre-auth; unlimited visits; Therapist Only Setting Treatment Setting Outpatient Care Visit Type Note Type Administrative Note - Subjective Observations Therapist contacted Sofi via telephone; Sofi indicated that she had left a voicemail to cancel the outpatient OT visit given that she is [place] coming back from [place]. Therapist to follow-up as needed/ appropriate. - - - -
--- NOTE | 2022-07-08 15:51 | OT.OP.TRT ---
Visit Care Team Role Provider Type KINJAL Cooper Attending Provider Advanced Stringed Instrument Repairer Family Provider Primary Care Provider Referring Provider Specialty: Family Practice Address: [address] [place] [address], [facility] Email: [email or web address] Occupational Therapy Treatment Note OT Outpatient Treatment Note - Adult Start: 07/31/21 08:56 Freq: Status: Active Protocol: Document 07/07/22 15:30 AMS (Rec: 07/08/22 15:51 AMS [id number]) OT Outpatient Adult Treatment Note Session Time Visit Start Time 10:30 Visit Stop Time 11:25 Total Visit Minutes 55 Visit Information Plan of Care Dates 05/13/22 - 08/05/22 Insurance Information no pre-auth; unlimited visits; Therapist Only Setting Treatment Setting Outpatient Care Visit Type Note Type Treatment Note General Information General Information Adelaide (or Sofi) is a 52 year- old right hand dominant female referred to outpatient OT by PCP, KINJAL Cooper, secondary to residual effects of stroke that occurred in 2014 after having surgery for brain aneurysm. Brittany was previously been seen in the outpatient setting by this OT; she was d/c to home exercise program with intent of returning to OT for upgrading of HEP. Due to inconsistent caregiver support, Brittany reports that she was inconsistent with doing her exercises. She continues to prefer proximal L sh stabilization brace versus Giv Sameer sling (d/t reported discomfort w/ Giv Sameer sling in right armpit from cyst). Brittany reports inconsistent use of night splint. Brittany is receiving outpatient PT for gait/balance/lower extremity weakness. She is also seeing Dr. Carter for pain management and seeing Dr. Stanton for development of coping skills. - Subjective Identification Type Name Identification Reconciled With Medical Record Observations Sofi was accompanied by her caregiver, Luke, to OT treatment session. Report of utilizing horizontal grab bar in the home; report of also using dycem provided by PT on horizontal shower bar with bathing (relative to positioning of the left hand). Patient/Caregiver Compliance with Home Good Exercise Program Comment Benefits from caregiver support(s) - Objective Objective Measurements Please refer to below for progress towards meeting established goals. 05/13/22 = no active L ER; no active L elbow flex. WFL L IR and L elbow ext. Short Term Goals 1. Adelaide will demonstrate improved active range of motion of the left upper extremity: 1a. 0-25 degrees active left shoulder extension. 07/07/22 = 50% met; 0-20 degrees. 1b. 0-50 degrees active left shoulder flexion. 07/07/22 = 50% met; 0-40 degrees. 1c. 0- 15 degrees active left shoulder abduction. 07/07/22 = 25% met; 0- 5 degrees 1d. 0-40 degrees active left elbow flexion (with arm permitted to move into UE flexor pattern). 07/07/22 = NEW GOAL. 2. Adelaide will demonstrate improved attention and functional incorporation of the left upper extremity: 2a. Adelaide will be able to verbally identify 2 to 3 different functional activities that she is actively incorporating the left upper extremity into in the home (e.g., grasping of grab bar). 07/07/22 = NEW GOAL. Prison Goals 1. Adelaide will be modified independent with execution of upper extremity home exercise program with the support of her caregiver(s) utilizing provided written and visual instructions from therapist. = 25% met GOALS MET Adelaide will be able to don personal night splint for distal left upper extremity, without assistance, utilizing provided written and visual instructions and compensatory strategies, based on verbal caregiver and self-report. * MET 12/09/21 - Treatment 1 Descriptor HEP/POC. Discussed use of shoulder sling/tone distal UE splint. Exercises 5 Descriptor Trunk/core sitting exercises. Seated w/ feet positioned on bolster. Trunk ext. 3 x 10. 2.2# weighted spherical ball. Trunk extension at EOM. 3 x 10 . Modified diagonals 2 x 10 each diagonal. 3 Descriptor UE exercises. TB #1. Modified seated sh ext. 2 x 10. TB #1. Modified seated row. 2 x 10. Pendulum exercise. Standing. 2 x 10. PNF diagonals; PROM by therapist. 1 x 10. 2 Descriptor Parallel bar. #36 height. Use of dycem. Weight shift L < -> R standing. 1 x 10. Use of dycem. Trunk flexion. 1 x 10. Use of dycem. Pushing pulling. 1 x 10. 1 Descriptor Tone management at EOM. Hand; weight shifting to the left. Weight shifting forwards and backwards w/ and without elbow flexion TT. - Assessment Assessment of Improvement Raised height of feet off of floor w/ trunk/core EOM strengthening utilizing bolster; improving sitting posture w/ increasing engagement of trunk/core musculature w/ trunk ext and dynamic sitting weight shifts. (-) wearing of L shoulder sling. (+) execution of horizontal grab exercises in the home; (+) use of dycem on horizontal grab bar to assist w/ positioning of the left hand w/ bathing. Improving active elbow flexion into UE tonal pattern; regaining some of the active range of motion of the L shoulder that had been lost. Recommend considering trunk/core stabilization goals given ability to progress in this area. Overall, good session. Adelaide would likely benefit from outpatient OT to establish appropriate HEP and caregiver training and to address posture, UE range of motion, and provide education to maintain available range of motion. - Plan Therapy Recommendations Continue with Current Program, Advance per Rehabilitation Protocol
--- NOTE | 2022-07-14 15:06 | OT.OP.TRT ---
Visit Care Team Role Provider Type KINJAL Cooper Attending Provider Advanced Open Winder Family Provider Primary Care Provider Referring Provider Specialty: Family Practice Address: [address] [place] [address], [facility] Email: [email or web address] Occupational Therapy Treatment Note OT Outpatient Treatment Note - Adult Start: 07/31/21 08:56 Freq: Status: Active Protocol: Document 07/14/22 14:54 AMS (Rec: 07/14/22 15:06 AMS [id number]) OT Outpatient Adult Treatment Note Session Time Visit Start Time 10:35 Visit Stop Time 11:30 Total Visit Minutes 55 Visit Information Plan of Care Dates 05/13/22 - 08/05/22 Insurance Information no pre-auth; unlimited visits; Therapist Only Setting Treatment Setting Outpatient Care Visit Type Note Type Treatment Note General Information General Information Adelaide (or Sofi) is a 52 year- old right hand dominant female referred to outpatient OT by PCP, KINJAL Cooper, secondary to residual effects of stroke that occurred in 2014 after having surgery for brain aneurysm. Brittany was previously been seen in the outpatient setting by this OT; she was d/c to home exercise program with intent of returning to OT for upgrading of HEP. Due to inconsistent caregiver support, Brittany reports that she was inconsistent with doing her exercises. She continues to prefer proximal L sh stabilization brace versus Giv Sameer sling (d/t reported discomfort w/ Giv Sameer sling in right armpit from cyst). Brittany reports inconsistent use of night splint. Brittany is receiving outpatient PT for gait/balance/lower extremity weakness. She is also seeing Dr. Carter for pain management and seeing Dr. Stanton for development of coping skills. - Subjective Identification Type Name Identification Reconciled With Medical Record Observations Sofi was accompanied by her caregiver, Luke, to OT treatment session. Report of utilizing horizontal grab bar in the home; UBE (set-up on old keyboarding table w/ 2 attached straps); and night splint (which unfortunately was lost in the middle of the night). Patient/Caregiver Compliance with Home Good Exercise Program Comment Benefits from caregiver support(s) - Objective Objective Measurements Please refer to below for progress towards meeting established goals. 05/13/22 = no active L ER; no active L elbow flex. WFL L IR and L elbow ext. Short Term Goals 1. Adleaide will demonstrate improved active range of motion of the left upper extremity: 1a. 0-25 degrees active left shoulder extension. 07/07/22 = 50% met; 0-20 degrees. 1b. 0-50 degrees active left shoulder flexion. 07/07/22 = 50% met; 0-40 degrees. 1c. 0- 15 degrees active left shoulder abduction. 07/07/22 = 25% met; 0- 5 degrees 1d. 0-40 degrees active left elbow flexion (with arm permitted to move into UE flexor pattern). 07/07/22 = NEW GOAL. 2. Adelaide will demonstrate improved attention and functional incorporation of the left upper extremity: 2a. Adelaide will be able to verbally identify 2 to 3 different functional activities that she is actively incorporating the left upper extremity into in the home (e.g., grasping of grab bar). 07/07/22 = NEW GOAL. Pyrotechnist Goals 1. Adelaide will be modified independent with execution of upper extremity home exercise program with the support of her caregiver(s) utilizing provided written and visual instructions from therapist. = 25% met GOALS MET Adelaide will be able to don personal night splint for distal left upper extremity, without assistance, utilizing provided written and visual instructions and compensatory strategies, based on verbal caregiver and self-report. * MET 12/09/21 - Treatment 1 Descriptor HEP/POC. Reviewed cane exercises; recommended modified row, sh abd/add, elbow flex/ext w/ forearms pronated. Provided TB #1 for use w/ rowing exercise w/ focus on scapular retraction; demonstrated positioning of near L hand to discourage reliance completely on R UE. Recommended use of table/wall for right wrist/digit flexor stretch w/ hold of 20 to 30 seconds. Verbally reviewed supine cane exercises; may want to retry supine exercises and explore sh flex/ext etc w / this body position. Introduced palmar WB on mat in standing w/ use of dycemw/ angular positioning of body. Will need to practice this exercise in upcoming sessions. Exercises 5 Descriptor Trunk/core sitting exercises. Seated w/ feet positioned on bolster. Trunk ext. 3 x 10. 3.3# weighted spherical ball. Trunk extension at EOM. 3 x 10 . Modified diagonals 2 x 10 each diagonal. 3 Descriptor UE exercises. TB #1. Modified seated sh ext. 2 x 10. TB #1. Modified seated row. 2 x 10. Pendulum exercise. Standing. 2 x 10. PNF diagonals; PROM by therapist. 1 x 10. 1 Descriptor Tone management at EOM. Hand; weight shifting to the left. Weight shifting forwards and backwards w/ and without elbow flexion TT. Weight bearing in standing; angular positioning of body w/ use of dycem. - Assessment Assessment of Improvement (+) use of pedal bike in the home; positioning of the L arm on TT/surfaces w/ meaningful tasks; (+) execution of horizontal grab bar exercises w/ use of dycem; (+) use of dycem on horizontal grab bar w / bathing. Initiated modified WB at mat w/ use of dycem; initiated parallel handle bar WB at level w/ decreased assist from L arm to assist w/ coming into standing. This is likely d/t focus on using legs for s-s w/ PT; may need to use chair w/ bilateral arm rests as an alternative approach to this exercise. Reviewed cane exercises; consider reviewing supine exercises as well. Recommend considering trunk/core stabilization goals given progress with these exercises. Guamanian e-stim x 8 minutes, 28 intensity, 10/10 cycle, to facilitate wrist/digit extension; use of spherical ball given flexion at PIP/DIP joints. Overall, good session. Adelaide would likely benefit from outpatient OT to establish appropriate HEP and caregiver training and to address posture, UE range of motion, and provide education to maintain available range of motion. - Plan Therapy Recommendations Continue with Current Program, Advance per Rehabilitation Protocol
--- NOTE | 2022-07-21 12:18 | OT.OP.TRT ---
Visit Care Team Role Provider Type KINJAL Cooper Attending Provider [employer]isher [employer] Stuffer Family Provider Primary Care Provider Referring Provider Specialty: Family Practice Address: [address] [place] [address], [facility] Email: [email or web address] Occupational Therapy Treatment Note OT Outpatient Treatment Note - Adult Start: 07/31/21 08:56 Freq: Status: Active Protocol: Document 07/21/22 12:13 AMS (Rec: 07/21/22 12:18 AMS [id number]) OT Outpatient Adult Treatment Note Session Time Visit Start Time 10:30 Visit Stop Time 11:25 Total Visit Minutes 55 Visit Information Plan of Care Dates 05/13/22 - 08/05/22 Insurance Information no pre-auth; unlimited visits; Therapist Only Setting Treatment Setting Outpatient Care Visit Type Note Type Treatment Note General Information General Information Adelaide (or Sofi) is a 52 year- old right hand dominant female referred to outpatient OT by PCP, KINJAL Cooper, secondary to residual effects of stroke that occurred in 2014 after having surgery for brain aneurysm. Brittany was previously been seen in the outpatient setting by this OT; she was d/c to home exercise program with intent of returning to OT for upgrading of HEP. Due to inconsistent caregiver support, Brittany reports that she was inconsistent with doing her exercises. She continues to prefer proximal L sh stabilization brace versus Giv Sameer sling (d/t reported discomfort w/ Giv Sameer sling in right armpit from cyst). Brittany reports inconsistent use of night splint. Brittany is receiving outpatient PT for gait/balance/lower extremity weakness. She is also seeing Dr. Carter for pain management and seeing Dr. Stanton for development of coping skills. - Subjective Identification Type Name Identification Reconciled With Medical Record Observations Sofi was accompanied by her new caregiver, Fabian (sp?), to OT treatment session. Report of utilizing horizontal grab bar in the home; UBE; and night splint. Patient/Caregiver Compliance with Home Good Exercise Program Comment Benefits from caregiver support(s) - Objective Objective Measurements Please refer to below for progress towards meeting established goals. 05/13/22 = no active L ER; no active L elbow flex. WFL L IR and L elbow ext. Short Term Goals 1. Adelaide will demonstrate improved active range of motion of the left upper extremity: 1a. 0-25 degrees active left shoulder extension. 07/07/22 = 50% met; 0-20 degrees. 1b. 0-50 degrees active left shoulder flexion. 07/07/22 = 50% met; 0-40 degrees. 1c. 0- 15 degrees active left shoulder abduction. 07/07/22 = 25% met; 0- 5 degrees 1d. 0-40 degrees active left elbow flexion (with arm permitted to move into UE flexor pattern). 07/07/22 = NEW GOAL. 2. Adelaide will demonstrate improved attention and functional incorporation of the left upper extremity: 2a. Adelaide will be able to verbally identify 2 to 3 different functional activities that she is actively incorporating the left upper extremity into in the home (e.g., grasping of grab bar). 07/07/22 = NEW GOAL. [employer] Goals 1. Adelaide will be modified independent with execution of upper extremity home exercise program with the support of her caregiver(s) utilizing provided written and visual instructions from therapist. = 25% met GOALS MET Adelaide will be able to don personal night splint for distal left upper extremity, without assistance, utilizing provided written and visual instructions and compensatory strategies, based on verbal caregiver and self-report. * MET 12/09/21 - Treatment 1 Descriptor HEP/POC. Reviewed cane exercises; recommended modified row, sh abd/add, elbow flex/ext w/ forearms pronated. Provided TB #1 for use w/ rowing exercise w/ focus on scapular retraction; demonstrated positioning of near L hand to discourage reliance completely on R UE. Recommended use of table/wall for right wrist/digit flexor stretch w/ hold of 20 to 30 seconds. Verbally reviewed supine cane exercises; may want to retry supine exercises and explore sh flex/ext etc w / this body position. Introduced palmar WB on mat in standing w/ use of dycem w/ angular positioning of body. Will need to practice this exercise in upcoming sessions. Exercises 5 Descriptor Trunk/core sitting exercises. Seated w/ feet positioned on bolster. Trunk ext. 3 x 10. Modified diagonals 2 x 10 each diagonal. Trunk twist. 1 x 4. Difficulty dissociating UB/LB and maintaining upright spine and twisting. Report of having leg bolster in the home. Discussed narrowing base of support. 3 Descriptor UE exercises. TB #1. Modified seated sh ext. 2 x 10. TB #1. Modified seated row. 2 x 10. Pendulum exercise. Standing. 2 x 10. PNF diagonals; PROM by therapist. 1 x 10. 1 Descriptor Tone management at EOM. Hand; weight shifting to the left. Weight shifting forwards and backwards w/ and without elbow flexion TT. Weight bearing in standing; angular positioning of body w/ use of dycem. - Assessment Assessment of Improvement Sofi was accompanied by her new full-time caregiver. Repeated mat weight bearing w/ addition of maintaining elbows extended and bringing head/ nose [id number] of hand. Recommend repeating and working on L <-> R weight shifting as well. Max difficulty w/ trunk twists despite bimanual clasping of hands. Overall, good session. Adelaide would likely benefit from outpatient OT to establish appropriate HEP and caregiver training and to address posture, UE range of motion, and provide education to maintain available range of motion. - Plan Therapy Recommendations Continue with Current Program, Advance per Rehabilitation Protocol
--- NOTE | 2022-07-27 13:41 | OT.OP.TRT ---
Visit Care Team Role Provider Type KINJAL Cooper Attending Provider Advanced Station Chief Family Provider Primary Care Provider Referring Provider Specialty: Family Practice Address: [address] [place] [address], [facility] Email: [email or web address] Occupational Therapy Treatment Note OT Outpatient Treatment Note - Adult Start: 07/31/21 08:56 Freq: Status: Active Protocol: Document 07/27/22 13:33 [facility]MS (Rec: 07/27/22 13:41 [facility] [id number]) OT Outpatient Adult Treatment Note Session Time Visit Start Time 12:30 Visit Stop Time 13:25 Total Visit Minutes 55 Visit Information Plan of Care Dates 05/13/22 - 08/05/22 Insurance Information no pre-auth; unlimited visits; Therapist Only Setting Treatment Setting Outpatient Care Visit Type Note Type Treatment Note General Information General Information Adelaide (or Sofi) is a 52 year- old right hand dominant female referred to outpatient OT by PCP, KINJAL Cooper, secondary to residual effects of stroke that occurred in 2014 after having surgery for brain aneurysm. Brittany was previously been seen in the outpatient setting by this OT; she was d/c to home exercise program with intent of returning to OT for upgrading of HEP. Due to inconsistent caregiver support, Brittany reports that she was inconsistent with doing her exercises. She continues to prefer proximal L sh stabilization brace versus Giv Sameer sling (d/t reported discomfort w/ Giv Sameer sling in right armpit from cyst). Brittany reports inconsistent use of night splint. Brittany is receiving outpatient PT for gait/balance/lower extremity weakness. She is also seeing Dr. Carter for pain management and seeing Dr. Stanton for development of coping skills. - Subjective Identification Type Name Identification Reconciled With Medical Record Observations oSfi was seen 1:1 for OT treatment; report of having a different caregiver every day. Report of utilizing horizontal grab bar in the home and UBE; report of utilizing piece of dycem on horizontal grab bar w/ bathing . Report of difficulties w/ donning night splint. Patient/Caregiver Compliance with Home Good Exercise Program Comment Benefits from caregiver support(s) - Objective Objective Measurements Please refer to below for progress towards meeting established goals. 05/13/22 = no active L ER; no active L elbow flex. WFL L IR and L elbow ext. Short Term Goals 1. Adelaide will demonstrate improved active range of motion of the left upper extremity: 1a. 0-25 degrees active left shoulder extension. 07/07/22 = 50% met; 0-20 degrees. 1b. 0-50 degrees active left shoulder flexion. 07/07/22 = 50% met; 0-40 degrees. 1c. 0- 15 degrees active left shoulder abduction. 07/07/22 = 25% met; 0- 5 degrees 1d. 0-40 degrees active left elbow flexion (with arm permitted to move into UE flexor pattern). 07/07/22 = NEW GOAL. 2. Adelaide will demonstrate improved attention and functional incorporation of the left upper extremity: 2a. Adelaide will be able to verbally identify 2 to 3 different functional activities that she is actively incorporating the left upper extremity into in the home (e.g., grasping of grab bar). 07/07/22 = NEW GOAL. [employer] Goals 1. Adelaide will be modified independent with execution of upper extremity home exercise program with the support of her caregiver(s) utilizing provided written and visual instructions from therapist. = 25% met GOALS MET Adelaide will be able to don personal night splint for distal left upper extremity, without assistance, utilizing provided written and visual instructions and compensatory strategies, based on verbal caregiver and self-report. * MET 12/09/21 - Exercises 5 Descriptor Trunk/core sitting exercises. Introduced therapy/yoga ball. Focus on upright sitting posture and becoming orientated to midline without use of UE support for stabilization. N/A 07/27/22 Seated w/ feet positioned on bolster. Trunk ext. 3 x 10. Modified diagonals 2 x 10 each diagonal. Trunk twist. 1 x 4. Difficulty dissociating UB/LB and maintaining upright spine and twisting. Report of having leg bolster in the home. Discussed narrowing base of support. 3 Descriptor UE exercises. TB #1. Modified seated sh ext. 2 x 10. TB #1. Modified seated row. 2 x 10. Pendulum exercise. Standing. 2 x 10. PNF diagonals; PROM by therapist. 1 x 10. 1 Descriptor Tone management at EOM. Hand; weight shifting to the left. Weight shifting forwards and backwards w/ and without elbow flexion TT. Weight bearing in standing; angular positioning of body w/ use of dycem. - Assessment Assessment of Improvement Report of decreased success w/ donning night splint; recommended bringing night splint into next OT treatment session if needed to review donning process. Decreased tolerance for WB/tone management exercises in standing at mat. However, good tolerance for WB and pushing into standing w/ use of L arm rest from sitting position. Introduced large therapy/yoga ball w/ hips at height above knees; concern re: reservation /seeking of R UE hand hold to support seated balance. Recommend revisiting this exercise given familiarity w/ and carry-over of EOM/seated trunk/core strengthening. Overall, good session. Adelaide would likely benefit from outpatient OT to establish appropriate HEP and caregiver training and to address posture, UE range of motion, and provide education to maintain available range of motion. - Plan Therapy Recommendations Continue with Current Program, Advance per Rehabilitation Protocol
--- NOTE | 2022-08-04 15:24 | OT.OPPN ---
Current Diagnoses Flaccid hemiplegia affecting left nondominant side (08/04/22) Other lack of coordination (08/04/22) Weakness (08/04/22) OT Progress Note OT Outpatient Treatment Note - Adult Start: 07/31/21 08:56 Freq: Status: Active Protocol: Document 08/04/22 15:05 AMS (Rec: 08/04/22 15:23 AMS [id number]) OT Outpatient Adult Treatment Note Session Time Visit Start Time 10:40 Visit Stop Time 11:25 Total Visit Minutes 45 Visit Information Plan of Care Dates 08/04/22 - 10/27/22 Insurance Information no pre-auth; unlimited visits; Therapist Only Setting Treatment Setting Outpatient Care Visit Type Note Type Progress Note General Information General Information Adelaide (or Sofi) is a 52 year- old right hand dominant female referred to outpatient OT by PCP, KINJAL Cooper, secondary to residual effects of stroke that occurred in 2014 after having surgery for brain aneurysm. Brittany was previously been seen in the outpatient setting by this OT; she was d/c to home exercise program with intent of returning to OT for upgrading of HEP. Due to inconsistent caregiver support, Brittany reports that she was inconsistent with doing her exercises. She continues to prefer proximal L sh stabilization brace versus Giv Sameer sling (d/t reported discomfort w/ Giv Sameer sling in right armpit from cyst). Brittany reports inconsistent use of night splint. Brittany is receiving outpatient PT for gait/balance/lower extremity weakness. She is also seeing Dr. Carter for pain management and seeing Dr. Stanton for development of coping skills. - Subjective Identification Type Name Identification Reconciled With Medical Record Observations Sofi was seen 1:1 for OT treatment. Report of positioning of L hand on horizontal bar w/ showering/ bathing w/ dycem to support grasp; report of utilizing the L hand to support clothing management w/ toileting. Report of success w/ wearing of night splint last night. Patient/Caregiver Compliance with Home Good Exercise Program Comment Benefits from caregiver support(s) - Objective Objective Measurements Please refer to below for progress towards meeting established goals. 05/13/22 = no active L ER; no active L elbow flex. WFL L IR and L elbow ext. Short Term Goals 1. Adelaide will demonstrate improved active range of motion of the left upper extremity: 1a. 0-25 degrees active left shoulder extension. 08/04/22 = 50% met; 0-20 degrees. 1b. 0-50 degrees active left shoulder flexion. 08/04/22 = 75 % met; 0-45 degrees. 1c. 0- 15 degrees active left shoulder abduction. 07/07/22 = 25% met; 0- 5 degrees 1d. 0-40 degrees active left elbow flexion (with arm permitted to move into UE flexor pattern). 07/31/22 = 25% met. 2. Adelaide will demonstrate improved attention and functional incorporation of the left upper extremity: 2a. Adelaide will be able to stabilize the left hand on surface while in standing ( utilizing dycem as needed) x 3 minutes, requiring maximum phys assist with initial positioning of the hand . 08/04/22 = NEW GOAL. GOALS MET Able to verbally identify 2 different functional activities that she is actively incorporating the left upper extremity into in the home. *MET 08/04/22 Resident Physician Goals 1. Adelaide will be modified independent with execution of upper extremity home exercise program with the support of her caregiver(s) utilizing provided written and visual instructions from therapist. = 25% met GOALS MET Adelaide will be able to don personal night splint for distal left upper extremity, without assistance, utilizing provided written and visual instructions and compensatory strategies, based on verbal caregiver and self-report. * MET 12/09/21 - Exercises 5 Descriptor Trunk/core sitting exercises. Therapy/yoga ball. Seated use. Orientation to midline. L <-> R weight shift. Trunk ext x 8 reps without UE support. N/A 07/27/22 Seated w/ feet positioned on bolster. Trunk ext. 3 x 10. Modified diagonals 2 x 10 each diagonal. Trunk twist. 1 x 4. Difficulty dissociating UB/LB and maintaining upright spine and twisting. Report of having leg bolster in the home. Discussed narrowing base of support. 3 Descriptor UE exercises. Pendulum exercise. Standing. 2 x 10. Functional movement patterns/ PNF. 1 x 10. 1 Descriptor Tone management at EOM. Hand; weight shifting to the left. Weight shifting forwards and backwards w/ and without elbow flexion TT. Weight bearing in standing; angular positioning of body w/ use of dycem. - Assessment Assessment of Improvement Adelaide has made slight progress with left upper extremity active range of motion and weight bearing/tone management/stabilization over the last certification period . She is functionally incorporating and attending to the left upper extremity during bathing and w/ clothing management post toileting. She is demonstrating improving awareness to posture in sitting/standing and is completing seated trunk/core strengthening exercises in the home without support (self- directed!). Therapist recently introduced yoga/therapy ball to advance trunk/core work and Adelaide demonstrated increased comfort with its use in today 's session; she continues to be apprehensive when not able to actively grasp table/sturdy object w/ the right hand. Thus, this is an area we can look to progress in/fade support. Adelaide has recently changed caregivers; thus, will need to complete training and provide visual/written supports to aide in carry-over . Adelaide would likely benefit from outpatient OT to establish appropriate HEP and caregiver training and to address posture, orientation to midline, weight bearing/ stabilization, UE range of motion, and provide education to maintain available range of motion. - Plan Therapy Recommendations Continue with Current Program, Advance per Rehabilitation Protocol Comment 12 weeks Comment 1 x a week Therapeutic Contents Active Range of Motion, Adaptive Equipment Education, Client Education,Cognitive Skills Development,Functional Activities,Home Exercise Program,Joint Protection, Manual Therapy,Education, Neurodevelopment Treatment, Neuromuscular Re-Education, Self-Care,Stretching/ Flexibility Activities, Therapeutic Activities, Therapeutic Exercises, Modalities,Sensory Re- education Modalities As Needed,As Prescribed Additional Types of Modalities e-stim, US, heat, ice, contrast baths If you are in agreement with this Plan of Care, please return a signed and dated copy. I have reviewed this Plan of Care and certify that the skilled therapy services above are required to meet the patient?s needs. Physician Signature Date Printed Name and Credentials Clinical Instructor Signature Printed Name and Credentials
--- NOTE | 2022-08-10 10:43 | OT.OP.TRT ---
Visit Care Team Role Provider Type KINJAL Cooper Attending Provider Advanced Civil Engineer Helper Family Provider Primary Care Provider Referring Provider Specialty: Family Practice Address: [address] [place] [address], [facility] Email: [email or web address] Occupational Therapy Treatment Note OT Outpatient Treatment Note - Adult Start: 07/31/21 08:56 Freq: Status: Active Protocol: Document 08/10/22 10:30 [facility] (Rec: 08/10/22 10:43 [facility] [id number]) OT Outpatient Adult Treatment Note Session Time Visit Start Time 09:30 Visit Stop Time 10:23 Total Visit Minutes 53 Visit Information Plan of Care Dates 08/04/22 - 10/27/22 Insurance Information no pre-auth; unlimited visits; Therapist Only Setting Treatment Setting Outpatient Care Visit Type Note Type Treatment Note General Information General Information Adelaide (or Sofi) is a 52 year- old right hand dominant female referred to outpatient OT by PCP, KINJAL Cooper, secondary to residual effects of stroke that occurred in 2014 after having surgery for brain aneurysm. Brittany was previously been seen in the outpatient setting by this OT; she was d/c to home exercise program with intent of returning to OT for upgrading of HEP. Due to inconsistent caregiver support, Brittany reports that she was inconsistent with doing her exercises. She continues to prefer proximal L sh stabilization brace versus Giv Sameer sling (d/t reported discomfort w/ Giv Sameer sling in right armpit from cyst). Brittany reports inconsistent use of night splint. Brittany is receiving outpatient PT for gait/balance/lower extremity weakness. She is also seeing Dr. Carter for pain management and seeing Dr. Stanton for development of coping skills. - Subjective Identification Type Name Identification Reconciled With Medical Record Observations Sofi was accompanied by Kuldip ( sp?), newest caregiver, to OT treatment session. Transported in personal w/c (preferred w/ c given that Mother is able to lift/manage it). Report of success w/ wearing of night splint last night. Patient/Caregiver Compliance with Home Good Exercise Program Comment Benefits from caregiver support(s) - Objective Objective Measurements Please refer to below for progress towards meeting established goals. 05/13/22 = no active L ER; no active L elbow flex. WFL L IR and L elbow ext. Short Term Goals 1. Adelaide will demonstrate improved active range of motion of the left upper extremity: 1a. 0-25 degrees active left shoulder extension. 08/04/22 = 50% met; 0-20 degrees. 1b. 0-50 degrees active left shoulder flexion. 08/04/22 = 75 % met; 0-45 degrees. 1c. 0- 15 degrees active left shoulder abduction. 07/07/22 = 25% met; 0- 5 degrees 1d. 0-40 degrees active left elbow flexion (with arm permitted to move into UE flexor pattern). 07/31/22 = 25% met. 2. Adelaide will demonstrate improved attention and functional incorporation of the left upper extremity: 2a. Adelaide will be able to stabilize the left hand on surface while in standing ( utilizing dycem as needed) x 3 minutes, requiring maximum phys assist with initial positioning of the hand . 08/04/22 = NEW GOAL. GOALS MET Able to verbally identify 2 different functional activities that she is actively incorporating the left upper extremity into in the home. *MET 08/04/22 Residential Goals 1. Adelaide will be modified independent with execution of upper extremity home exercise program with the support of her caregiver(s) utilizing provided written and visual instructions from therapist. = 25% met GOALS MET Adelaide will be able to don personal night splint for distal left upper extremity, without assistance, utilizing provided written and visual instructions and compensatory strategies, based on verbal caregiver and self-report. * MET 12/09/21 - Exercises 5 Descriptor Trunk/core sitting exercises. Therapy/yoga ball. Seated use. Orientation to midline. L <-> R weight shift. Forwards <-> backwards weight shift. Trunk flex x 10 reps without UE support. Trunk ext x 10 reps without UE support. N/A 07/27/22 Seated w/ feet positioned on bolster. Trunk ext. 3 x 10. Modified diagonals 2 x 10 each diagonal. Trunk twist. 1 x 4. Difficulty dissociating UB/LB and maintaining upright spine and twisting. Report of having leg bolster in the home. Discussed narrowing base of support. 3 Descriptor UE exercises. Pendulum exercise. 2 x 10. Functional movement patterns/ PNF. 2 x 10. 1 Descriptor Tone management at EOM. Hand; weight shifting to the left. Weight shifting forwards and backwards w/ and without elbow flexion TT. Weight bearing in standing; angular positioning of body w/ use of dycem. - Assessment Assessment of Improvement Adelaide demonstrated increased comfort with trunk/core/ orientation to midline exercises while seated on yoga ball; increased trunk extension observed and improved orientation to midline when seated. Currently positioning left arm in lap w / exercises. Recommend looking to progress in/fade support w / yoga/therapy ball use. Increased focus on elbow flex w/ scapular retraction w/ seated rows; will look to support elbow flexion w/ this movement pattern given positive response from patient and improved posture w/ bilateral scapular pinches and cue to bring elbow back. Poor locking of bilateral brakes of personal chair; patient and caregiver notified. Overall, good session. Adelaide has recently changed caregivers; thus, will need to complete training and provide visual/written supports to aide in carry-over. Adelaide would likely benefit from outpatient OT to establish appropriate HEP and caregiver training and to address posture, orientation to midline, weight bearing/ stabilization, UE range of motion, and provide education to maintain available range of motion. Home Exercise Program 08/10/22 = Recommended getting new brakes for preferred w/c; Adelaide verbalized understanding. Instructed caregiver in seated row (w/ elbow flexion) w/ support of weight of arm for home carry- over. - Plan Therapy Recommendations Continue with Current Program, Advance per Rehabilitation Protocol
--- NOTE | 2022-08-17 12:45 | OT.OP.TRT ---
Visit Care Team Role Provider Type KINJAL Cooper Attending Provider [employer] Family Provider Primary Care Provider Referring Provider Specialty: Family Practice Address: [address] [place] [address], [facility] Email: [email or web address] Occupational Therapy Treatment Note OT Outpatient Treatment Note - Adult Start: 07/31/21 08:56 Freq: Status: Active Protocol: Document 08/17/22 12:42 [facility] (Rec: 08/17/22 12:45 [facility] [id number]) OT Outpatient Adult Treatment Note Session Time Visit Start Time 09:45 Visit Stop Time 10:25 Total Visit Minutes 40 Visit Information Plan of Care Dates 08/04/22 - 10/27/22 Insurance Information no pre-auth; unlimited visits; Therapist Only Setting Treatment Setting Outpatient Care Visit Type Note Type Treatment Note General Information General Information Adelaide (or Sofi) is a 52 year- old right hand dominant female referred to outpatient OT by PCP, KINJAL Cooper, secondary to residual effects of stroke that occurred in 2014 after having surgery for brain aneurysm. Brittany was previously been seen in the outpatient setting by this OT; she was d/c to home exercise program with intent of returning to OT for upgrading of HEP. Due to inconsistent caregiver support, Brittany reports that she was inconsistent with doing her exercises. She continues to prefer proximal L sh stabilization brace versus Giv Sameer sling (d/t reported discomfort w/ Giv Sameer sling in right armpit from cyst). Brittany reports inconsistent use of night splint. Brittany is receiving outpatient PT for gait/balance/lower extremity weakness. She is also seeing Dr. Carter for pain management and seeing Dr. Stanton for development of coping skills. - Subjective Identification Type Name Identification Reconciled With Medical Record Observations Transported in personal w/c. Report of success w/ wearing of night splint last night. Patient/Caregiver Compliance with Home Good Exercise Program Comment Benefits from caregiver support(s) - Objective Objective Measurements Please refer to below for progress towards meeting established goals. 05/13/22 = no active L ER; no active L elbow flex. WFL L IR and L elbow ext. Short Term Goals 1. Adelaide will demonstrate improved active range of motion of the left upper extremity: 1a. 0-25 degrees active left shoulder extension. 08/04/22 = 50% met; 0-20 degrees. 1b. 0-50 degrees active left shoulder flexion. 08/04/22 = 75 % met; 0-45 degrees. 1c. 0- 15 degrees active left shoulder abduction. 07/07/22 = 25% met; 0- 5 degrees 1d. 0-40 degrees active left elbow flexion (with arm permitted to move into UE flexor pattern). 07/31/22 = 25% met. 2. Adelaide will demonstrate improved attention and functional incorporation of the left upper extremity: 2a. Adelaide will be able to stabilize the left hand on surface while in standing ( utilizing dycem as needed) x 3 minutes, requiring maximum phys assist with initial positioning of the hand . 08/04/22 = NEW GOAL. GOALS MET Able to verbally identify 2 different functional activities that she is actively incorporating the left upper extremity into in the home. *MET 08/04/22 Bag Shop Worker Goals 1. Adelaide will be modified independent with execution of upper extremity home exercise program with the support of her caregiver(s) utilizing provided written and visual instructions from therapist. = 25% met GOALS MET Adelaide will be able to don personal night splint for distal left upper extremity, without assistance, utilizing provided written and visual instructions and compensatory strategies, based on verbal caregiver and self-report. * MET 12/09/21 - Exercises 5 Descriptor Trunk/core sitting exercises. Therapy/yoga ball. Seated use. Orientation to midline. L <-> R weight shift. Forwards <-> backwards weight shift. Trunk flex x 10 reps without UE support. Trunk ext x 10 reps without UE support. N/A 07/27/22 Seated w/ feet positioned on bolster. Trunk ext. 3 x 10. Modified diagonals 2 x 10 each diagonal. Trunk twist. 1 x 4. Difficulty dissociating UB/LB and maintaining upright spine and twisting. Report of having leg bolster in the home. Discussed narrowing base of support. 3 Descriptor UE exercises. Pendulum exercise. 2 x 10. Functional movement patterns/ PNF. 2 x 10. 2 Descriptor L UE strengthening. Sh extension. 1# ankle weight. 2 x 10. 1 Descriptor Tone management at EOM. Hand; weight shifting to the left. Weight shifting forwards and backwards w/ and without elbow flexion TT. Weight bearing in standing; angular positioning of body w/ use of dycem. - Assessment Assessment of Improvement Adelaide demonstrated decreased comfort with trunk/core/ orientation to midline exercises while seated on yoga ball; trialed this activity between parallel bars w/ overall, good success. Will need to monitor height and angle of L parallel bar to support grasp/weight bearing. Introduced light ankle weight for UE strengthening. Recommend increasing number of strengthening exercises. Good carry-over of use of home pedal bike. Overall, good session. Adelaide has recently changed caregivers; thus, will need to complete training and provide visual/written supports to aide in carry-over. Adelaide would likely benefit from outpatient OT to establish appropriate HEP and caregiver training and to address posture, orientation to midline, weight bearing/ stabilization, UE range of motion, and provide education to maintain available range of motion. Home Exercise Program 08/17/22 = Recommended getting new brakes for preferred w/c; Adelaide verbalized understanding. Instructed caregiver in seated row (w/ elbow flexion) w/ support of weight of arm for home carry- over. - Plan Therapy Recommendations Continue with Current Program, Advance per Rehabilitation Protocol
--- NOTE | 2022-08-24 14:06 | OT.OP.TRT ---
Visit Care Team Role Provider Type KINJAL Cooper Attending Provider Advanced Plant Attendant Family Provider Primary Care Provider Referring Provider Specialty: Family Practice Address: [address] [place] [address], [facility] Email: [email or web address] Occupational Therapy Treatment Note OT Outpatient Treatment Note - Adult Start: 07/31/21 08:56 Freq: Status: Active Protocol: Document 08/24/22 13:50 AMS (Rec: 08/24/22 14:06 AMS [id number]) OT Outpatient Adult Treatment Note Session Time Visit Start Time 09:30 Visit Stop Time 10:23 Total Visit Minutes 53 Visit Information Plan of Care Dates 08/04/22 - 10/27/22 Insurance Information no pre-auth; unlimited visits; Therapist Only Setting Treatment Setting Outpatient Care Visit Type Note Type Treatment Note General Information General Information Adelaide (or Sofi) is a 52 year- old right hand dominant female referred to outpatient OT by PCP, KINJAL Cooper, secondary to residual effects of stroke that occurred in 2014 after having surgery for brain aneurysm. Brittany was previously been seen in the outpatient setting by this OT; she was d/c to home exercise program with intent of returning to OT for upgrading of HEP. Due to inconsistent caregiver support, Brittany reports that she was inconsistent with doing her exercises. She continues to prefer proximal L sh stabilization brace versus Giv Sameer sling (d/t reported discomfort w/ Giv Sameer sling in right armpit from cyst). Brittany reports inconsistent use of night splint. Brittany is receiving outpatient PT for gait/balance/lower extremity weakness. She is also seeing Dr. Carter for pain management and seeing Dr. Stanton for development of coping skills. - Subjective Identification Type Name Identification Reconciled With Medical Record Observations Transported in personal w/c. Adelaide was accompanied by Milena to treatment session. Patient/Caregiver Compliance with Home Good Exercise Program Comment Benefits from caregiver support(s) - Objective Objective Measurements Please refer to below for progress towards meeting established goals. 05/13/22 = no active L ER; no active L elbow flex. WFL L IR and L elbow ext. Short Term Goals 1. Adelaide will demonstrate improved active range of motion of the left upper extremity: 1a. 0-25 degrees active left shoulder extension. 08/04/22 = 50% met; 0-20 degrees. 1b. 0-50 degrees active left shoulder flexion. 08/04/22 = 75 % met; 0-45 degrees. 1c. 0- 15 degrees active left shoulder abduction. 07/07/22 = 25% met; 0- 5 degrees 1d. 0-40 degrees active left elbow flexion (with arm permitted to move into UE flexor pattern). 07/31/22 = 25% met. 2. Adelaide will demonstrate improved attention and functional incorporation of the left upper extremity: 2a. Adelaide will be able to stabilize the left hand on surface while in standing ( utilizing dycem as needed) x 3 minutes, requiring maximum phys assist with initial positioning of the hand . 08/04/22 = NEW GOAL. GOALS MET Able to verbally identify 2 different functional activities that she is actively incorporating the left upper extremity into in the home. *MET 08/04/22 Penitentiary Goals 1. Adelaide will be modified independent with execution of upper extremity home exercise program with the support of her caregiver(s) utilizing provided written and visual instructions from therapist. = 25% met GOALS MET Adelaide will be able to don personal night splint for distal left upper extremity, without assistance, utilizing provided written and visual instructions and compensatory strategies, based on verbal caregiver and self-report. * MET 12/09/21 - Exercises 5 Descriptor Trunk/core sitting exercises. Therapy/yoga ball. Seated use. Orientation to midline. L <-> R weight shift. Forwards <-> backwards weight shift. Trunk flex x 10 reps without UE support. Trunk ext x 10 reps without UE support. N/A 07/27/22 Seated w/ feet positioned on bolster. Trunk ext. 3 x 10. Modified diagonals 2 x 10 each diagonal. Trunk twist. 1 x 4. Difficulty dissociating UB/LB and maintaining upright spine and twisting. Report of having leg bolster in the home. Discussed narrowing base of support. 3 Descriptor UE exercises. Pendulum exercise. 2 x 10. Functional movement patterns/ PNF. 2 x 10. 2 Descriptor L UE strengthening. Sh extension. 1# ankle weight. 2 x 10. Sh flexion. 1# ankle weight. 2 x 10. 1 Descriptor Tone management at EOM. Hand; weight shifting to the left. Weight shifting forwards and backwards w/ and without elbow flexion TT. Weight bearing in standing; angular positioning of body w/ use of dycem. - Assessment Assessment of Improvement Need to fix personal w/c brakes; brakes appear to have been worn down over time w/ use. Adelaide brought in night splint; it appears to need additional air. Adelaide indicated that she is unaware of current location of brace ' air pump'. Will need to follow -up and help problem solve as able. Improved trunk ext observed while seated on therapy ball between parallel bars w/ positioning of left hand on parallel bar; increased reliance on R LE w/ weight shift R. Will need to cont to work on orientation to midline. Overall, good session. Adelaide has recently changed caregivers; thus, will need to complete training and provide visual/written supports to aide in carry-over. Adelaide would likely benefit from outpatient OT to establish appropriate HEP and caregiver training and to address posture, orientation to midline, weight bearing/ stabilization, UE range of motion, and provide education to maintain available range of motion. Home Exercise Program 08/17/22 = Recommended getting new brakes for preferred w/c; Adelaide verbalized understanding. Instructed caregiver in seated row (w/ elbow flexion) w/ support of weight of arm for home carry- over. - Plan Therapy Recommendations Continue with Current Program, Advance per Rehabilitation Protocol
--- NOTE | 2022-08-31 15:30 | OT.OP.TRT ---
Visit Care Team Role Provider Type KINJAL Cooper Attending Provider Advanced Monogram Operator Family Provider Primary Care Provider Referring Provider Specialty: Family Practice Address: [address] [place] [address], [facility] Email: [email or web address] Occupational Therapy Treatment Note OT Outpatient Treatment Note - Adult Start: 07/31/21 08:56 Freq: Status: Active Protocol: Document 09/01/22 09:15 AMS (Rec: 09/01/22 09:21 [facility] [id number]) OT Outpatient Adult Treatment Note Session Time Visit Start Time 09:45 Visit Stop Time 10:28 Total Visit Minutes 43 Visit Information Plan of Care Dates 08/04/22 - 10/27/22 Insurance Information no pre-auth; unlimited visits; Therapist Only Setting Treatment Setting Outpatient Care Visit Type Note Type Treatment Note General Information General Information Adelaide (or Sofi) is a 52 year- old right hand dominant female referred to outpatient OT by PCP, KINJAL Cooper, secondary to residual effects of stroke that occurred in 2014 after having surgery for brain aneurysm. Brittany was previously been seen in the outpatient setting by this OT; she was d/c to home exercise program with intent of returning to OT for upgrading of HEP. Due to inconsistent caregiver support, Brittany reports that she was inconsistent with doing her exercises. She continues to prefer proximal L sh stabilization brace versus Giv Sameer sling (d/t reported discomfort w/ Giv Sameer sling in right armpit from cyst). Brittany reports inconsistent use of night splint. Brittany is receiving outpatient PT for gait/balance/lower extremity weakness. She is also seeing Dr. Carter for pain management and seeing Dr. Stanton for development of coping skills. - Subjective Identification Type Name Identification Reconciled With Medical Record Observations Transported in personal w/c. Sofi was seen 1:1 for treatment session. Slightly shortened treatment session d/t late arrival. Patient/Caregiver Compliance with Home Good Exercise Program Comment Benefits from caregiver support(s) - Objective Objective Measurements Please refer to below for progress towards meeting established goals. 05/13/22 = no active L ER; no active L elbow flex. WFL L IR and L elbow ext. Short Term Goals 1. Adelaide will demonstrate improved active range of motion of the left upper extremity: 1a. 0-25 degrees active left shoulder extension. 08/04/22 = 50% met; 0-20 degrees. 1b. 0-50 degrees active left shoulder flexion. 08/04/22 = 75 % met; 0-45 degrees. 1c. 0- 15 degrees active left shoulder abduction. 07/07/22 = 25% met; 0- 5 degrees 1d. 0-40 degrees active left elbow flexion (with arm permitted to move into UE flexor pattern). 07/31/22 = 25% met. 2. Adelaide will demonstrate improved attention and functional incorporation of the left upper extremity: 2a. Adelaide will be able to stabilize the left hand on surface while in standing ( utilizing dycem as needed) x 3 minutes, requiring maximum phys assist with initial positioning of the hand . 08/04/22 = NEW GOAL. GOALS MET Able to verbally identify 2 different functional activities that she is actively incorporating the left upper extremity into in the home. *MET 08/04/22 Electric Power Machine Operator Goals 1. Adelaide will be modified independent with execution of upper extremity home exercise program with the support of her caregiver(s) utilizing provided written and visual instructions from therapist. = 25% met GOALS MET Adelaide will be able to don personal night splint for distal left upper extremity, without assistance, utilizing provided written and visual instructions and compensatory strategies, based on verbal caregiver and self-report. * MET 12/09/21 - Exercises 5 Descriptor Trunk/core sitting exercises. Therapy/yoga ball. Seated use. Orientation to midline. L <-> R weight shift. Forwards <-> backwards weight shift. Trunk flex x 10 reps without UE support. Trunk ext x 10 reps without UE support. N/A 07/27/22 Seated w/ feet positioned on bolster. Trunk ext. 3 x 10. Modified diagonals 2 x 10 each diagonal. Trunk twist. 1 x 4. Difficulty dissociating UB/LB and maintaining upright spine and twisting. Report of having leg bolster in the home. Discussed narrowing base of support. 3 Descriptor UE exercises. Pendulum exercise. 2 x 10. Functional movement patterns/ PNF. 2 x 10. 2 Descriptor L UE strengthening. Sh extension. 1# ankle weight. 2 x 10. Sh flexion. 1# ankle weight. 2 x 10. 1 Descriptor Tone management at EOM. Hand; weight shifting to the left. Weight shifting forwards and backwards w/ and without elbow flexion TT. Weight bearing in standing; angular positioning of body w/ use of dycem. - Assessment Assessment of Improvement Sofi denied finding of air pump for night splint; report of curling up of fingers into palm as of late which leads to discomfort. This may be d/t deflation of air splint; Sofi to look into new air pump. Report of likely move to [place] in the near future. Continued need to fix personal w/c brakes; brakes appears to have been worn down over time w/ extended use. Continued tendency to weight shift to the right while seated on therapy ball; introduced ' [place]' w/ assist needed for repositioning of left foot d/t poor anchoring of base of support. However, did actively participate in newer activity to challenge sitting balance w/ good tolerance. Use of mirror for visual feedback. Will need to cont to work on orientation to midline. Decreased tolerance for weight bearing at EOM and w/ wrist in extension. Overall , good session. Adelaide has recently changed caregivers; thus, will need to complete training and provide visual/written supports to aide in carry-over. Adelaide would likely benefit from outpatient OT to establish appropriate HEP and caregiver training and to address posture, orientation to midline, weight bearing/ stabilization, UE range of motion, and provide education to maintain available range of motion. Home Exercise Program 08/17/22 = Recommended getting new brakes for preferred w/c; Adelaide verbalized understanding. Instructed caregiver in seated row (w/ elbow flexion) w/ support of weight of arm for home carry- over. - Plan Therapy Recommendations Continue with Current Program, Advance per Rehabilitation Protocol
--- NOTE | 2022-09-01 14:36 | OT.OP.DC ---
Visit Care Team Role Provider Type KINJAL Cooper Attending Provider Advanced Senior Net Software Engineer Family Provider Primary Care Provider Referring Provider Address: [address] [place] [address], [id number] Email: [email or web address] Outpatient OT Outpatient Adult Evaluation Start: 07/31/21 08:56 Freq: Status: Active Protocol: Document 07/29/21 15:30 AMS (Rec: 07/31/21 09:27 AMS [id number]) General Information Session Time Visit Start Time 10:30 Visit Stop Time 11:15 Total Visit Minutes 45 Visit Information Visit Number 05/18 Plan of Care Dates 07/29/21 - 10/07/21 Insurance Information Medicare Setting Treatment Setting Outpatient Care Visit Type Note Type Initial Evaluation Goals Treatment Treatment Weight shifting onto left hand while seated at mat; fingers come over edge of the mat. Active elbow extension. Reviewed posture; scapular pinches. Short Term Goals Short Term Goals 1. Adelaide will demonstrate improved active range of motion of the left upper extremity: 1a. 0-25 degrees active left shoulder extension. 1b. 0-50 degrees active left shoulder flexion. 1c. 0- 15 degrees active left shoulder abduction. Lumber Handler Goals Lumber Handler Goals 1. Adelaide will be modified independent with execution of upper extremity home exercise program with the support of her caregiver(s) utilizing provided written and visual instructions from therapist. Assessment/Plan Assessment Treatment Assessment Adelaide (or Sofi) is a 51 year- old right hand dominant female referred to outpatient OT by PCP, KINJAL Cooper, secondary to residual effects of stroke that occurred in 2014 after having surgery for brain aneurysm. Brittany was previously been seen in the outpatient setting by this OT; she was d/c to home exercise program with intent of returning to OT for upgrading of HEP. Due to inconsistent caregiver support, Brittany reports that she was inconsistent with doing her exercises. She continues to prefer proximal L sh stabilization brace versus Giv Sameer sling (d/t reported discomfort w/ Giv Sameer sling in right armpit from cyst). Brittany reports inconsistent use of night splint. Brittany is receiving outpatient PT for gait/balance/lower extremity weakness. She is also seeing Dr. Carter for pain management and seeing Dr. Stanton for development of coping skills. Brittany completed Pain Assessment Grid and indicated 6 out of 10 on the pain scale relative to right dorsal wrist . Will need to have patient complete updated body pain grid at time of next session. She obtained a score of 79.55 on the QuickDASH UE Outcome Measure. Goniometer Measurements: R sh/elbow/wrist /fingers AROM WFL. 0-25 degrees active L sh flex; 0-90 degrees passive L sh flex; 0- 0 degrees active L sh ext; 0- 50 degrees passive L sh ext; 0 -0 degrees active L sh abd; 0- 90 degrees passive L sh abd; IR active WFL w/ blocking; 0-0 degrees active L sh ER; 0-30 degrees active L sh ER; 0-0 degrees active L elbow flex; 0 -130 degrees passive L elbow flex; 0-130 degrees active L elbow ext; 0-0 degrees active L forearm pronation; WNL passive L forearm pronation; 0 -0 degrees active L forearm supination; WNL passive L forearm supination. No active ROM of L wrist. Passive AROM L wrist WFL. When fingers extended and to flex into fisted position; (-) active extension of digits of the L hand. Assist for positioning of the left upper extremity to facilitate weight bearing; tolerates better w/ fingers positioned over 'edge' of seated surface. Report of inclusion of the left hand/ upper extremity w/ clothing management w/ toileting and positioning L hand/UE on TT surface when engaging in art based tasks on vertical surface. Dependence on right upper extremity. Impaired posture. Decreased orientation ot midline. Impaired sensation of the left upper extremity. Brittany would likely benefit from outpatient OT to establish appropriate HEP and caregiver training and to address posture, UE range of motion, and provide education to maintain available range of motion. Plan Comment 10 weeks Comment 1 to 2 times per week Therapeutic Contents Active Range of Motion, Adaptive Equipment Education, Client Education,Cognitive Skills Development,Functional Activities,Home Exercise Program,Joint Protection, Manual Therapy,Education, Neurodevelopment Treatment, Neuromuscular Re-Education, Self-Care,Stretching/ Flexibility Activities, Therapeutic Activities, Therapeutic Exercises, Modalities,Sensory Re- education Modalities As Needed,As Prescribed Types of Modalities E-Stim,Ultrasound Additional Types of Modalities Hot pack/Cold pack Sensory Assessment Sensory Profile2 Functional Wrist/Hand Scan Hand Side OT Outpatient Treatment Note - Adult Start: 07/31/21 08:56 Freq: Status: Active Protocol: Document 09/01/22 14:35 AMS (Rec: 09/01/22 14:36 AMS [id number]) OT Outpatient Adult Treatment Note Visit Information Plan of Care Dates 08/04/22 - 10/27/22 Insurance Information no pre-auth; unlimited visits; Therapist Only Setting Treatment Setting Outpatient Care Visit Type Note Type Discharge Summary - Subjective Observations Per [facility] manager front office staff member, patient has requested d/c from outpatient OT services secondary to relocating/moving out of town. - Objective Objective Measurements Please refer to below for progress towards meeting established goals. 05/13/22 = no active L ER; no active L elbow flex. WFL L IR and L elbow ext. Short Term Goals ALL GOALS D/C 09/01/22 1. Adelaide will demonstrate improved active range of motion of the left upper extremity: 1a. 0-25 degrees active left shoulder extension. 08/04/22 = 50% met; 0-20 degrees. 1b. 0-50 degrees active left shoulder flexion. 08/04/22 = 75 % met; 0-45 degrees. 1c. 0- 15 degrees active left shoulder abduction. 07/07/22 = 25% met; 0- 5 degrees 1d. 0-40 degrees active left elbow flexion (with arm permitted to move into UE flexor pattern). 07/31/22 = 25% met. 2. Adelaide will demonstrate improved attention and functional incorporation of the left upper extremity: 2a. Adelaide will be able to stabilize the left hand on surface while in standing ( utilizing dycem as needed) x 3 minutes, requiring maximum phys assist with initial positioning of the hand . 08/04/22 = NEW GOAL. GOALS MET Able to verbally identify 2 different functional activities that she is actively incorporating the left upper extremity into in the home. *MET 08/04/22 Lumber Handler Goals ALL GOALS D/C 09/01/22 1. Adelaide will be modified independent with execution of upper extremity home exercise program with the support of her caregiver(s) utilizing provided written and visual instructions from therapist. = 25% met GOALS MET Adelaide will be able to don personal night splint for distal left upper extremity, without assistance, utilizing provided written and visual instructions and compensatory strategies, based on verbal caregiver and self-report. * MET 12/09/21 - - Assessment Assessment of Improvement Per [facility] manager front office staff member, patient has requested d/c from outpatient OT services secondary to relocating/moving out of town. - Plan Therapy Recommendations Discharge from Occupational Therapy
== END 2022-09-03 11:57 | disposition home or self-care (01) ==
LOC: OT 09:30
PROVIDERS: Family Provider Nurse Practitioner; PCP Nurse Practitioner; Referring Provider Nurse Practitioner; Visit Provider Nurse Practitioner
DX: G81.04 Flaccid hemiplegia affecting left nondominant side (principal); R53.1 Weakness; R27.8 Other lack of coordination
CPT/HCPCS: 97032; 97110; 97112; 97166; 97530

== ENCOUNTER 2022-09-01 14:30 | Outpatient (RCR) | payer MEDICARE, OTHER, MEDICAID, SELFPAY ==
--- NOTE | 2019-05-30 14:25 | PT.OIE ---
Current Diagnoses Hemiplegia, unspecified affecting unspecified side (05/28/19) Difficulty in walking, not elsewhere classified (05/28/19) Weakness (05/28/19) History of falling (05/28/19) Past Medical History (Last Updated 05/10/19 @ 13:10 by KINJAL Cooper) ADHD (Chronic ~2014) Bleeding in brain due to brain aneurysm (Acute) Chronic constipation (Chronic) Dominant hemiplegia complicating stroke (Acute) Dry mouth, unspecified (Acute) Dysphagia (Acute) Elevated BP without diagnosis of hypertension (Acute) Excessive vitamin B12 intake (Acute) Family history of colon cancer (Acute) Fatigue (Acute) Generalized anxiety disorder (Acute) GERD (gastroesophageal reflux disease) (Chronic) Headache (Chronic) Hypothyroidism (Chronic) Irritable bowel syndrome (Chronic) Left hand weakness (Acute) Major depressive disorder (Acute) Obesity (Acute) Obesity (BMI 35.0-39.9 without comorbidity) (Acute) Seasonal allergies (Acute) Seizure disorder (Acute) Throat disorder (Chronic) Vision changes (Acute) Vision disorder (Chronic) Vitamin D deficiency (Acute) Past Surgical History (Last Updated 04/27/19 @ 20:43 by Gracie Villanueva) Anesthesia (Resolved) Brain aneurysm (Resolved ~03/25/15) De Quervain's syndrome (tenosynovitis) (Resolved ~1996) Visit Care Team Role Provider Type KINJAL Cooper Attending Provider Advanced Guest Service Agent Primary Care Provider Specialty: Family Practice Address: [address] [place] [address], [facility] Email: [email or web address] Physical Therapy Initial Evaluation PT-OP-A Visit Information Start: 05/28/19 08:11 Freq: Status: Active Protocol: Document 05/28/19 14:30 SAK (Rec: 05/29/19 16:49 SAK [id number]) Out-Patient Physical Therapy Visit Information Visit Information Visit Type Initial Evaluation Visit Start Time 14:35 Visit Stop Time 15:15 Total Visit Minutes 40 Visit Number 1 Number of HAND ROLLER ENGRAVER Visits 0 Evaluation Information Evaluation Date 05/28/19 Precautions Precautions Seizure disorder memory dysfunction PT-OP-B Current Condition Start: 05/28/19 08:11 Freq: Status: Active Protocol: Document 05/28/19 14:30 SAK (Rec: 05/29/19 16:53 [facility] [id number]) Current Condition History of Current Condition Onset Date 2014 Current Complaints weakness, requires assistance with all mobility and household tasks History of Current Condition Reports that she suffered a stroke in 2014 after surgery for brain aneurysm. CVA caused weakness on the left side of her body, gait and balance difficulty, seizures. Prior Treatments and Tests prior PT, OT Future Testing and Treatments Planned uncertain of when has next physician appointment Treatment Goals Patient/Caregiver Goals Improve her strength, gait, balance, be trained in a floor transfer. Prior Functional Status Baseline Function- ADL's Independent Baseline Function- Mobility Independent Baseline Function- Gait was independent with gait without device Baseline Function- Work/School was able to work without limitations Baseline Function- Recreation/Hobbies no limitations Current Functional Impairments (Reported) Functional Limitations- ADL's assistance with all ADL's Functional Limitations- Mobility/Gait requires the use of morro- walker and is limited to household distances Functional Limitations- Work/School unable Functional Limitations- Recreation/ unable Hobbies Personal Factors Other Personal Factors That May Effect anxiety, depression, poor Therapy/Recovery memory PT-OP-C Subjective Start: 05/28/19 08:11 Freq: Status: Active Protocol: Document 05/28/19 14:30 [facility] (Rec: 05/29/19 16:49 [facility] [id number]) OP-PT Pain Assessment Pain Assessment Grid Paper Pain Assessment Grid Completed Yes Location right wrist Intensity 1 Scale Used Numeric (1 - 10) PT-OP-D Balance Start: 05/28/19 08:11 Freq: Status: Active Protocol: Document 05/29/19 14:30 [facility] (Rec: 05/30/19 14:24 [facility] [id number]) OP-PT Balance Assessment Sitting Balance Static Sitting Balance Ability Good Dynamic Sitting Balance Ability Fair Standing Balance Static Standing Balance Ability Good Dynamic Standing Balance Ability Fair Device Used hemiwalker right Tinetti Balance Assessment Sitting Balance Sitting Balance Steady, safe Arising from Chair Attempts to Arise Able, requires >1 attempt Standing Balance Immediate Standing Balance Steady with support Standing Balance Steady, wide stance Nudged Response Begins to fall Standing with Eyes Closed Unsteady Turning Step Pattern Turning 360 Degrees Discontinuous steps Stability Turning 360 Degrees Unsteady, grabs/staggers Sitting Down Sitting Down Uses arms or unsteady Gait and Step Initiation of Gait Hesitancy, mult. attempts Right Foot Step Length Does not pass stance ft. Right Foot Step Height Does not clear floor Left Foot Step Length Does not pass stance foot Left Foot Step Height Does not clear floor Step Description Step Symmetry Step length not equal Gait Description Path Description Mild/moderate deviation Trunk Description Marked sway or uses aide Walking Stance Heels apart Scoring and Interpretation Tinetti Composite Score (points) 6 Interpretation of Scores High risk for falls(< 19) Herrera Fall Scale Copyright Permission PT-OP-G Mobility & Gait Start: 05/28/19 08:11 Freq: Status: Active Protocol: Document 05/29/19 14:30 [facility] (Rec: 05/30/19 14:24 [facility] [id number]) OP Mobility Evaluation Bed Mobility Rolling min assist Supine to and from Sit min assist Transfers Sit to Stand uses right UE Bed to Chair Transfers uses right UE Floor Transfers unable Functional Movements Squats uses primarily right LE OP Gait Assessment Gait Gait Assistance Required: Standby Assistance Distance (Feet) 20 Assistive Devices Assistive Device Morro Walker Orthotic/Prosthetic Devices or Brace: Yes Gait Deviations General Gait Pattern Decreased Stride Length, Decreased Feet Clearance, Lateral Trunk Lean,Wide Based Gait Factors Limiting Gait Function Factors Limiting Gait Function Abnormal Tonal Influences, Decreased Strength PT-OP-H Neuro Start: 05/28/19 08:11 Freq: Status: Active Protocol: Document 05/29/19 14:30 [facility] (Rec: 05/30/19 14:24 [facility] [id number]) Sensation Evaluation Gross Sensation Gross Sensation Left UE Impaired,Left LE Impaired Sensation Description Paresthesia,Numbness Coordination Evaluation Lower Extremity Tests Left Alternate Heel to Knee; Heel to Toe Test Moderate Impairment Heel on Boles Test Moderate Impairment Foot Tapping Test Moderate Impairment PT-OP-K Range of Motion Start: 05/28/19 08:11 Freq: Status: Active Protocol: Document 05/29/19 14:30 [facility] (Rec: 05/30/19 14:24 [facility] [id number]) Hip Goniometric Range of Motion Hip jake Hip ROM WFL Yes Knee Goniometric Range of Motion Knee jake Knee ROM WFL Yes Ankle and Foot Goniometric Range of Motion Ankle and Foot Left Active Ankle/Foot ROM WFL No Right Ankle/Foot ROM WFL Yes Ankle and Foot ROM Limitations Comments left ankle df -5, right 5 PT-OP-M Strength Start: 05/28/19 08:11 Freq: Status: Active Protocol: Document 05/29/19 14:30 [facility] (Rec: 05/30/19 14:24 [facility] [id number]) Hip Strength Hip Manual Muscle Testing Left Flexion (L2) 3- Fair- Extension (S1) 2 Poor Abduction 2+ Poor+ External Rotation 3- Fair- Internal Rotation 3+ Fair+ Right Flexion (L2) 4 Good Extension (S1) 4- Good- Abduction 4 Good External Rotation 3+ Fair+ Internal Rotation 4- Good- Knee Strength Knee Manual Muscle Testing Left Flexion (S2) 3 Fair Extension (L3) 3+ Fair+ Right Flexion (S2) 4+ Good+ Extension (L3) 4+ Good+ Ankle/Foot Strength Ankle and Foot Manual Muscle Testing Left Dorsiflexion (L4) 0 Zero Plantarflexion (S1) 0 Zero Right Dorsiflexion (L4) 4+ Good+ Plantarflexion (S1) 4+ Good+ PT-OP-Q Treatments Start: 05/28/19 08:11 Freq: Status: Active Protocol: Document 05/29/19 14:30 [facility] (Rec: 05/30/19 14:24 [facility] [id number]) Self-Care/Home Management Treatment Education Patient Education Home Exercise Program PT-OP-T Assessment and Plan Start: 05/28/19 08:11 Freq: Status: Active Protocol: Document 05/28/19 14:30 [facility] (Rec: 05/29/19 16:49 [facility] [id number]) Physical Therapy Assessment Rehab Potential Rehabilitation Potential Fair Evaluation Complexity Number of Personal Factors/Comorbidities 3 or More Number of Body Systems Impaired 4 or More Clinical Presentation at Evaluation Evolving Impairments Impairments Balance,Functional Mobility, Gait,Strength Goals Four Impairment requires assistance with bed mobility and transfers Short Term Goal (STG) Patient will be able to perform all bed mobility independently to improve her functional independence. STG Duration 07/10/19 Half-Way Goal (LTG) Patient will be able to perform a floor transfer with SB to min assist LTG Duration 08/27/19 Three Impairment weakness left UE and LE s/p CVA Strategic Planning Specialist Goal (LTG) Improve functional strength in left LE, as evidenced by ability to move from sit > < stand without use of UE's. Request OT for left UE rehab. LTG Duration 08/27/19 Two Impairment balance dysfunction with high risk for falls Half-Way Goal (LTG) Improve balance as evidenced by improvement in Tinnetti balance and gait score to low fall risk range to improve safety in the home and community. LTG Duration 08/27/19 One Impairment requires morro-walker for gait, limited to household Strategic Planning Specialist Goal (LTG) Patient able to ambulate with least restrictive device for functional community distances to improve her functional independence and quality of life. LTG Duration 08/27/19 Assessment Summary Assessment Patient presents for PT due to impairments in gait, balance, strength, and all functional mobility skills s/p CVA 2014. Her left side was affected with the CVA resulting in completely flaccid left UE, weakness left LE (wears AFO), and gait dysfunction requiring the use of a morro-walker held in her right hand to ambulate and ambulates with a step-to pattern. She has had multiple episodes of PT over the years. She states she was recently benefiting from aquatic physical therapy but was unable to continue due to transportation issues. Feel she would benefit from both land and aquatic-based PT to address the above impairments to allow her to ambulate safely on level and uneven surfaces, perform daily activities around her apartment, and perform all functional mobility skills safely including training in floor transfer. Physical Therapy Plan Frequency and Duration Frequency of Treatment 2x/Week Duration of Treatment 12 wks Plan of Care Start Date 05/28/19 Plan of Care End Date 08/27/19 Therapeutic Interventions Therapeutic Interventions Aquatic Therapy,Balance Training,Gait Training,Home Exercise Program,Neuromuscular Re-education,Orthotic/ Prosthetic Management,Patient/ Caregiver Education,Self-Care/ Home Management,Taping, Therapeutic Activities, Therapeutic Exercises Modalities Cold Pack/Ice Massage,Hot Packs Next Visit Focus/Plan Next Note Type Treatment Note Next Visit Plan Initiate PT treatment with therapeutic exercise, neuro-re -ed, gait training
--- NOTE | 2019-05-30 14:25 | PT.OPPOC ---
Physical, Occupational & Speech Therapy At [facility] Current Diagnoses Hemiplegia, unspecified affecting unspecified side (05/28/19) Difficulty in walking, not elsewhere classified (05/28/19) Weakness (05/28/19) History of falling (05/28/19) Visit Care Team Role Provider Type KINJAL Cooper Attending Provider Advanced Hog Cooler Primary Care Provider Specialty: [facility] Practice Address: [address] [place] [address], [facility] Email: [email or web address] Plan Of Care PT-OP-T Assessment and Plan Start: 05/28/19 08:11 Freq: Status: Active Protocol: Document 05/28/19 14:30 SAK (Rec: 05/29/19 16:49 SAK [id number]) Physical Therapy Assessment Rehab Potential Rehabilitation Potential Fair Evaluation Complexity Number of Personal Factors/Comorbidities 3 or More Number of Body Systems Impaired 4 or More Clinical Presentation at Evaluation Evolving Impairments Impairments Balance,Functional Mobility, Gait,Strength Goals Four Impairment requires assistance with bed mobility and transfers Short Term Goal (STG) Patient will be able to perform all bed mobility independently to improve her functional independence. STG Duration 07/10/19 Delinquent Account Clerk Goal (LTG) Patient will be able to perform a floor transfer with SB to min assist LTG Duration 08/27/19 Three Impairment weakness left UE and LE s/p CVA Assisted Goal (LTG) Improve functional strength in left LE, as evidenced by ability to move from sit > < stand without use of UE's. Request OT for left UE rehab. LTG Duration 08/27/19 Two Impairment balance dysfunction with high risk for falls Assisted Goal (LTG) Improve balance as evidenced by improvement in Tinnetti balance and gait score to low fall risk range to improve safety in the home and community. LTG Duration 08/27/19 One Impairment requires armaan-walker for gait, limited to household Delinquent Account Clerk Goal (LTG) Patient able to ambulate with least restrictive device for functional community distances to improve her functional independence and quality of life. LTG Duration 08/27/19 Assessment Summary Assessment Patient presents for PT due to impairments in gait, balance, strength, and all functional mobility skills s/p CVA 2014. Her left side was affected with the CVA resulting in completely flaccid left UE, weakness left LE (wears AFO), and gait dysfunction requiring the use of a armaan-walker held in her right hand to ambulate and ambulates with a step-to pattern. She has had multiple episodes of PT over the years. She states she was recently benefiting from aquatic physical therapy but was unable to continue due to transportation issues. Feel she would benefit from both land and aquatic-based PT to address the above impairments to allow her to ambulate safely on level and uneven surfaces, perform daily activities around her apartment, and perform all functional mobility skills safely including training in floor transfer. Physical Therapy Plan Frequency and Duration Frequency of Treatment 2x/Week Duration of Treatment 12 wks Plan of Care Start Date 05/28/19 Plan of Care End Date 08/27/19 Therapeutic Interventions Therapeutic Interventions Aquatic Therapy,Balance Training,Gait Training,Home Exercise Program,Neuromuscular Re-education,Orthotic/ Prosthetic Management,Patient/ Caregiver Education,Self-Care/ Home Management,Taping, Therapeutic Activities, Therapeutic Exercises Modalities Cold Pack/Ice Massage,Hot Packs Next Visit Focus/Plan Next Note Type Treatment Note Next Visit Plan Initiate PT treatment with therapeutic exercise, neuro-re -ed, gait training Plan of Care Dates Plan of Care Start Date 05/28/19 Plan of Care End Date 08/27/19 Electronically Signed by: Renetta Villarreal, PT 05/30/19 [id number] Please Sign and Return: I have reviewed this Plan of Care and certify that the skilled therapy services above are required to meet the patient?s needs. Physician Signature Date Printed Name and Credentials Clinical Instructor Signature Printed Name and Credentials
--- NOTE | 2019-06-08 16:37 | PT.OTN ---
Current Diagnoses Hemiplegia, unspecified affecting unspecified side (06/08/19) Difficulty in walking, not elsewhere classified (06/08/19) Weakness (06/08/19) History of falling (06/08/19) Physical Therapy Treatment Note PT-OP-A Visit Information Start: 05/28/19 08:11 Freq: Status: Active Protocol: Document 06/08/19 14:30 LJ (Rec: 06/08/19 16:36 LJ [id number]) Out-Patient Physical Therapy Visit Information Visit Information Visit Type Treatment Note Visit Start Time 14:30 Visit Stop Time 15:15 Total Visit Minutes 45 Visit Number 2 Number of TELETRAY OPERATOR Visits 1 Precautions Precautions Seizure disorder memory dysfunction PT-OP-B Current Condition Start: 05/28/19 08:11 Freq: Status: Active Protocol: Document 05/28/19 14:30 SAK (Rec: 05/29/19 16:53 SAK [id number]) Current Condition History of Current Condition Onset Date 2014 Current Complaints weakness, requires assistance with all mobility and household tasks History of Current Condition Reports that she suffered a stroke in 2014 after surgery for brain aneurysm. CVA caused weakness on the left side of her body, gait and balance difficulty, seizures. Prior Treatments and Tests prior PT, OT Future Testing and Treatments Planned uncertain of when has next physician appointment Treatment Goals Patient/Caregiver Goals Improve her strength, gait, balance, be trained in a floor transfer. Prior Functional Status Baseline Function- ADL's Independent Baseline Function- Mobility Independent Baseline Function- Gait was independent with gait without device Baseline Function- Work/School was able to work without limitations Baseline Function- Recreation/Hobbies no limitations Current Functional Impairments (Reported) Functional Limitations- ADL's assistance with all ADL's Functional Limitations- Mobility/Gait requires the use of morro- walker and is limited to household distances Functional Limitations- Work/School unable Functional Limitations- Recreation/ unable Hobbies Personal Factors Other Personal Factors That May Effect anxiety, depression, poor Therapy/Recovery memory PT-OP-C Subjective Start: 05/28/19 08:11 Freq: Status: Active Protocol: Document 06/08/19 16:36 LJ (Rec: 06/08/19 16:37 LJ [id number]) OP-PT Subjective Patient Comments Patient Comments Feels she has lost function since last round of therapy at another location PT-OP-D Balance Start: 05/28/19 08:11 Freq: Status: Active Protocol: Document 05/29/19 14:30 [facility] (Rec: 05/30/19 14:24 [facility] [id number]) OP-PT Balance Assessment Sitting Balance Static Sitting Balance Ability Good Dynamic Sitting Balance Ability Fair Standing Balance Static Standing Balance Ability Good Dynamic Standing Balance Ability Fair Device Used hemiwalker right Tinetti Balance Assessment Sitting Balance Sitting Balance Steady, safe Arising from Chair Attempts to Arise Able, requires >1 attempt Standing Balance Immediate Standing Balance Steady with support Standing Balance Steady, wide stance Nudged Response Begins to fall Standing with Eyes Closed Unsteady Turning Step Pattern Turning 360 Degrees Discontinuous steps Stability Turning 360 Degrees Unsteady, grabs/staggers Sitting Down Sitting Down Uses arms or unsteady Gait and Step Initiation of Gait Hesitancy, mult. attempts Right Foot Step Length Does not pass stance ft. Right Foot Step Height Does not clear floor Left Foot Step Length Does not pass stance foot Left Foot Step Height Does not clear floor Step Description Step Symmetry Step length not equal Gait Description Path Description Mild/moderate deviation Trunk Description Marked sway or uses aide Walking Stance Heels apart Scoring and Interpretation Tinetti Composite Score (points) 6 Interpretation of Scores High risk for falls(< 19) Herrera Fall Scale Copyright Permission PT-OP-G Mobility & Gait Start: 05/28/19 08:11 Freq: Status: Active Protocol: Document 05/29/19 14:30 [facility] (Rec: 05/30/19 14:24 [facility] [id number]) OP Mobility Evaluation Bed Mobility Rolling min assist Supine to and from Sit min assist Transfers Sit to Stand uses right UE Bed to Chair Transfers uses right UE Floor Transfers unable Functional Movements Squats uses primarily right LE OP Gait Assessment Gait Gait Assistance Required: Standby Assistance Distance (Feet) 20 Assistive Devices Assistive Device Morro Walker Orthotic/Prosthetic Devices or Brace: Yes Gait Deviations General Gait Pattern Decreased Stride Length, Decreased Feet Clearance, Lateral Trunk Lean,Wide Based Gait Factors Limiting Gait Function Factors Limiting Gait Function Abnormal Tonal Influences, Decreased Strength PT-OP-H Neuro Start: 05/28/19 08:11 Freq: Status: Active Protocol: Document 05/29/19 14:30 [facility] (Rec: 05/30/19 14:24 [facility] [id number]) Sensation Evaluation Gross Sensation Gross Sensation Left UE Impaired,Left LE Impaired Sensation Description Paresthesia,Numbness Coordination Evaluation Lower Extremity Tests Left Alternate Heel to Knee; Heel to Toe Test Moderate Impairment Heel on Boles Test Moderate Impairment Foot Tapping Test Moderate Impairment PT-OP-K Range of Motion Start: 05/28/19 08:11 Freq: Status: Active Protocol: Document 05/29/19 14:30 SAK (Rec: 05/30/19 14:24 SAK [id number]) Hip Goniometric Range of Motion Hip jake Hip ROM WFL Yes Knee Goniometric Range of Motion Knee jake Knee ROM WFL Yes Ankle and Foot Goniometric Range of Motion Ankle and Foot Left Active Ankle/Foot ROM WFL No Right Ankle/Foot ROM WFL Yes Ankle and Foot ROM Limitations Comments left ankle df -5, right 5 PT-OP-M Strength Start: 05/28/19 08:11 Freq: Status: Active Protocol: Document 05/29/19 14:30 SAK (Rec: 05/30/19 14:24 SAK [id number]) Hip Strength Hip Manual Muscle Testing Left Flexion (L2) 3- Fair- Extension (S1) 2 Poor Abduction 2+ Poor+ External Rotation 3- Fair- Internal Rotation 3+ Fair+ Right Flexion (L2) 4 Good Extension (S1) 4- Good- Abduction 4 Good External Rotation 3+ Fair+ Internal Rotation 4- Good- Knee Strength Knee Manual Muscle Testing Left Flexion (S2) 3 Fair Extension (L3) 3+ Fair+ Right Flexion (S2) 4+ Good+ Extension (L3) 4+ Good+ Ankle/Foot Strength Ankle and Foot Manual Muscle Testing Left Dorsiflexion (L4) 0 Zero Plantarflexion (S1) 0 Zero Right Dorsiflexion (L4) 4+ Good+ Plantarflexion (S1) 4+ Good+ PT-OP-Q Treatments Start: 05/28/19 08:11 Freq: Status: Active Protocol: Document 06/08/19 14:30 NILAY (Rec: 06/08/19 16:36 LJ [id number]) Therapeutic Exercises Supine Exercises gastroc stretch Supine Exercise Name PROM Side bilateral Equipment Used manual assist Reps/Minutes 2x30 sec hamstring stretch Supine Exercise Name PROM Side bilateral Equipment Used manual assist Reps/Minutes 2x30 sec hooklying hip ab/ad Side bilateral Resistance manual Reps/Minutes 10 each direction Comments ModA for sttabilizing LLE bridges Reps/Minutes 10 Comments ModA for LLE Sitting Exercises marching Side bilateral Reps/Minutes 20 Standing Exercises hip abd Side bilateral Reps/Minutes 8 LLE 10 RLE Self-Care/Home Management Treatment Education Patient Education Home Exercise Program PT-OP-T Assessment and Plan Start: 05/28/19 08:11 Freq: Status: Active Protocol: Document 06/08/19 14:30 NILAY (Rec: 06/08/19 16:36 NILAY [id number]) Physical Therapy Assessment Rehab Potential Rehabilitation Potential Fair Evaluation Complexity Number of Personal Factors/Comorbidities 3 or More Number of Body Systems Impaired 4 or More Clinical Presentation at Evaluation Evolving Impairments Impairments Balance,Functional Mobility, Gait,Strength Goals Four Impairment requires assistance with bed mobility and transfers Short Term Goal (STG) Patient will be able to perform all bed mobility independently to improve her functional independence. STG Duration 07/10/19 Long-Term Goal (LTG) Patient will be able to perform a floor transfer with SB to min assist LTG Duration 08/27/19 Three Impairment weakness left UE and LE s/p CVA Cable Operator Goal (LTG) Improve functional strength in left LE, as evidenced by ability to move from sit > < stand without use of UE's. Request OT for left UE rehab. LTG Duration 08/27/19 Two Impairment balance dysfunction with high risk for falls Long-Term Goal (LTG) Improve balance as evidenced by improvement in Tinnetti balance and gait score to low fall risk range to improve safety in the home and community. LTG Duration 08/27/19 One Impairment requires morro-walker for gait, limited to household Long-Term Goal (LTG) Patient able to ambulate with least restrictive device for functional community distances to improve her functional independence and quality of life. LTG Duration 08/27/19 Assessment Summary Assessment Pt discussed her HEP from previous therapy. She requires Roberto-ModA for supine exercises and hemiwalker for standing exercies with CGA. Physical Therapy Plan Frequency and Duration Frequency of Treatment 2x/Week Duration of Treatment 12 wks Plan of Care Start Date 05/28/19 Plan of Care End Date 08/27/19 Therapeutic Interventions Therapeutic Interventions Aquatic Therapy,Balance Training,Gait Training,Home Exercise Program,Neuromuscular Re-education,Orthotic/ Prosthetic Management,Patient/ Caregiver Education,Self-Care/ Home Management,Taping, Therapeutic Activities, Therapeutic Exercises Modalities Cold Pack/Ice Massage,Hot Packs Next Visit Focus/Plan Next Note Type Treatment Note Next Visit Plan Initiate PT treatment with therapeutic exercise, neuro-re -ed, gait training. Review HEP and begin gait training. If possible, schedule in pool as soon as openings appear
--- NOTE | 2019-06-13 09:49 | PT.OTN ---
Addendum entered and electronically signed by Paola Farfan PTA 06/13/19 11:58: Continue to have caregiver active in treatment for carryover at home so can progress increased strength and functional independence. Original Note: Current Diagnoses Hemiplegia, unspecified affecting unspecified side (06/13/19) Difficulty in walking, not elsewhere classified (06/13/19) Weakness (06/13/19) History of falling (06/13/19) Physical Therapy Treatment Note PT-OP-A Visit Information Start: 05/28/19 08:11 Freq: Status: Active Protocol: Document 06/13/19 09:07 SP (Rec: 06/13/19 11:58 SP [id number]) Out-Patient Physical Therapy Visit Information Visit Information Visit Type Treatment Note Visit Start Time 09:07 Visit Stop Time 09:49 Total Visit Minutes 42 Visit Number 3 Number of BIBLICAL LANGUAGES PROFESSOR Visits 2 PT-OP-B Current Condition Start: 05/28/19 08:11 Freq: Status: Active Protocol: Document 05/28/19 14:30 SAK (Rec: 05/29/19 16:53 SAK [id number]) Current Condition History of Current Condition Onset Date 2014 Current Complaints weakness, requires assistance with all mobility and household tasks History of Current Condition Reports that she suffered a stroke in 2014 after surgery for brain aneurysm. CVA caused weakness on the left side of her body, gait and balance difficulty, seizures. Prior Treatments and Tests prior PT, OT Future Testing and Treatments Planned uncertain of when has next physician appointment Treatment Goals Patient/Caregiver Goals Improve her strength, gait, balance, be trained in a floor transfer. Prior Functional Status Baseline Function- ADL's Independent Baseline Function- Mobility Independent Baseline Function- Gait was independent with gait without device Baseline Function- Work/School was able to work without limitations Baseline Function- Recreation/Hobbies no limitations Current Functional Impairments (Reported) Functional Limitations- ADL's assistance with all ADL's Functional Limitations- Mobility/Gait requires the use of morro- walker and is limited to household distances Functional Limitations- Work/School unable Functional Limitations- Recreation/ unable Hobbies Personal Factors Other Personal Factors That May Effect anxiety, depression, poor Therapy/Recovery memory PT-OP-C Subjective Start: 05/28/19 08:11 Freq: Status: Active Protocol: Document 06/13/19 09:07 SP (Rec: 06/13/19 11:58 SP [id number]) OP-PT Subjective Patient Comments Patient Comments Pt reported tried a 14 step stair case with landing 1/2 way this past week and hasn't done in a while and felt fearful. Hasn't been doing much curb mgt and wants to do more bike as did prior at [facility] to progress in strength at some point in PT. PT-OP-D Balance Start: 05/28/19 08:11 Freq: Status: Active Protocol: Document 05/29/19 14:30 [facility] (Rec: 05/30/19 14:24 [facility] [id number]) OP-PT Balance Assessment Sitting Balance Static Sitting Balance Ability Good Dynamic Sitting Balance Ability Fair Standing Balance Static Standing Balance Ability Good Dynamic Standing Balance Ability Fair Device Used hemiwalker right Tinetti Balance Assessment Sitting Balance Sitting Balance Steady, safe Arising from Chair Attempts to Arise Able, requires >1 attempt Standing Balance Immediate Standing Balance Steady with support Standing Balance Steady, wide stance Nudged Response Begins to fall Standing with Eyes Closed Unsteady Turning Step Pattern Turning 360 Degrees Discontinuous steps Stability Turning 360 Degrees Unsteady, grabs/staggers Sitting Down Sitting Down Uses arms or unsteady Gait and Step Initiation of Gait Hesitancy, mult. attempts Right Foot Step Length Does not pass stance ft. Right Foot Step Height Does not clear floor Left Foot Step Length Does not pass stance foot Left Foot Step Height Does not clear floor Step Description Step Symmetry Step length not equal Gait Description Path Description Mild/moderate deviation Trunk Description Marked sway or uses aide Walking Stance Heels apart Scoring and Interpretation Tinetti Composite Score (points) 6 Interpretation of Scores High risk for falls(< 19) Herrera Fall Scale Copyright Permission PT-OP-G Mobility & Gait Start: 05/28/19 08:11 Freq: Status: Active Protocol: Document 05/29/19 14:30 [facility] (Rec: 05/30/19 14:24 [facility] [id number]) OP Mobility Evaluation Bed Mobility Rolling min assist Supine to and from Sit min assist Transfers Sit to Stand uses right UE Bed to Chair Transfers uses right UE Floor Transfers unable Functional Movements Squats uses primarily right LE OP Gait Assessment Gait Gait Assistance Required: Standby Assistance Distance (Feet) 20 Assistive Devices Assistive Device Morro Walker Orthotic/Prosthetic Devices or Brace: Yes Gait Deviations General Gait Pattern Decreased Stride Length, Decreased Feet Clearance, Lateral Trunk Lean,Wide Based Gait Factors Limiting Gait Function Factors Limiting Gait Function Abnormal Tonal Influences, Decreased Strength PT-OP-H Neuro Start: 05/28/19 08:11 Freq: Status: Active Protocol: Document 05/29/19 14:30 SAK (Rec: 05/30/19 14:24 SAK [id number]) Sensation Evaluation Gross Sensation Gross Sensation Left UE Impaired,Left LE Impaired Sensation Description Paresthesia,Numbness Coordination Evaluation Lower Extremity Tests Left Alternate Heel to Knee; Heel to Toe Test Moderate Impairment Heel on Boles Test Moderate Impairment Foot Tapping Test Moderate Impairment PT-OP-K Range of Motion Start: 05/28/19 08:11 Freq: Status: Active Protocol: Document 05/29/19 14:30 SAK (Rec: 05/30/19 14:24 SAK [id number]) Hip Goniometric Range of Motion Hip jake Hip ROM WFL Yes Knee Goniometric Range of Motion Knee jake Knee ROM WFL Yes Ankle and Foot Goniometric Range of Motion Ankle and Foot Left Active Ankle/Foot ROM WFL No Right Ankle/Foot ROM WFL Yes Ankle and Foot ROM Limitations Comments left ankle df -5, right 5 PT-OP-M Strength Start: 05/28/19 08:11 Freq: Status: Active Protocol: Document 05/29/19 14:30 SAK (Rec: 05/30/19 14:24 [facility] [id number]) Hip Strength Hip Manual Muscle Testing Left Flexion (L2) 3- Fair- Extension (S1) 2 Poor Abduction 2+ Poor+ External Rotation 3- Fair- Internal Rotation 3+ Fair+ Right Flexion (L2) 4 Good Extension (S1) 4- Good- Abduction 4 Good External Rotation 3+ Fair+ Internal Rotation 4- Good- Knee Strength Knee Manual Muscle Testing Left Flexion (S2) 3 Fair Extension (L3) 3+ Fair+ Right Flexion (S2) 4+ Good+ Extension (L3) 4+ Good+ Ankle/Foot Strength Ankle and Foot Manual Muscle Testing Left Dorsiflexion (L4) 0 Zero Plantarflexion (S1) 0 Zero Right Dorsiflexion (L4) 4+ Good+ Plantarflexion (S1) 4+ Good+ PT-OP-Q Treatments Start: 05/28/19 08:11 Freq: Status: Active Protocol: Document 06/13/19 09:07 SP (Rec: 06/13/19 11:58 SP [id number]) Therapeutic Exercises Standing Exercises f/b/side stepping Equipment Used rail Reps/Minutes 10 ft x2 laps each direction Comments cued L LE parallel side stepping, foward/backward knee flexion sit to stands Reps/Minutes x10 Gait Training Gait Activity stair mgt Comments 4 steps R HR CGA, step to gait , gait belt and caregiver training for safety and progress comfort and strengthening- good demonstration, therapist knee front L during descending for safety prevent buckling. PT-OP-T Assessment and Plan Start: 05/28/19 08:11 Freq: Status: Active Protocol: Document 06/13/19 09:07 SP (Rec: 06/13/19 11:58 SP [id number]) Physical Therapy Assessment Goals Four Impairment requires assistance with bed mobility and transfers Short Term Goal (STG) Patient will be able to perform all bed mobility independently to improve her functional independence. STG Duration 07/10/19 Community Services Manager Goal (LTG) Patient will be able to perform a floor transfer with SB to min assist LTG Duration 08/27/19 Three Impairment weakness left UE and LE s/p CVA Community Services Manager Goal (LTG) Improve functional strength in left LE, as evidenced by ability to move from sit > < stand without use of UE's. Request OT for left UE rehab. LTG Duration 08/27/19 Two Impairment balance dysfunction with high risk for falls Snf Goal (LTG) Improve balance as evidenced by improvement in Tinnetti balance and gait score to low fall risk range to improve safety in the home and community. LTG Duration 08/27/19 One Impairment requires morro-walker for gait, limited to household Snf Goal (LTG) Patient able to ambulate with least restrictive device for functional community distances to improve her functional independence and quality of life. LTG Duration 08/27/19 Assessment Summary Assessment Readjusted AFO to allow increased DF, heel positioning for flat foot in WB. Tx focused on standing strengthening and stair mgt with caregiver for comfort and cued for caregiver positioning and assist LLE if needed and cued proper postioning. Physical Therapy Plan Frequency and Duration Frequency of Treatment 2x/Week Duration of Treatment 12 wks Plan of Care Start Date 05/28/19 Plan of Care End Date 08/27/19 Therapeutic Interventions Therapeutic Interventions Aquatic Therapy,Balance Training,Gait Training,Home Exercise Program,Neuromuscular Re-education,Orthotic/ Prosthetic Management,Patient/ Caregiver Education,Self-Care/ Home Management,Taping, Therapeutic Activities, Therapeutic Exercises Modalities Cold Pack/Ice Massage,Hot Packs Next Visit Focus/Plan Next Note Type Treatment Note Next Visit Plan Assess last tx reponse, standing activity, stairs. Next tx add bike warmup Biodex and continue requested standing strengthening and ballance. Awareness of PT POC: Initiate PT treatment with therapeutic exercise, neuro-re-ed, gait training. Review HEP and begin gait training. If possible, schedule in pool as soon as openings appear
--- NOTE | 2019-06-19 14:35 | PT.OTN ---
Current Diagnoses Hemiplegia, unspecified affecting unspecified side (06/19/19) Difficulty in walking, not elsewhere classified (06/19/19) Weakness (06/19/19) History of falling (06/19/19) Physical Therapy Treatment Note PT-OP-A Visit Information Start: 05/28/19 08:11 Freq: Status: Active Protocol: Document 06/19/19 13:45 SP (Rec: 06/19/19 15:59 SP [id number]) Out-Patient Physical Therapy Visit Information Visit Information Visit Type Treatment Note Visit Start Time 13:45 Visit Stop Time 14:35 Total Visit Minutes 50 Visit Number 4 Number of ENGINEERING ILLUSTRATOR Visits 3 PT-OP-B Current Condition Start: 05/28/19 08:11 Freq: Status: Active Protocol: Document 05/28/19 14:30 SAK (Rec: 05/29/19 16:53 SAK [id number]) Current Condition History of Current Condition Onset Date 2014 Current Complaints weakness, requires assistance with all mobility and household tasks History of Current Condition Reports that she suffered a stroke in 2014 after surgery for brain aneurysm. CVA caused weakness on the left side of her body, gait and balance difficulty, seizures. Prior Treatments and Tests prior PT, OT Future Testing and Treatments Planned uncertain of when has next physician appointment Treatment Goals Patient/Caregiver Goals Improve her strength, gait, balance, be trained in a floor transfer. Prior Functional Status Baseline Function- ADL's Independent Baseline Function- Mobility Independent Baseline Function- Gait was independent with gait without device Baseline Function- Work/School was able to work without limitations Baseline Function- Recreation/Hobbies no limitations Current Functional Impairments (Reported) Functional Limitations- ADL's assistance with all ADL's Functional Limitations- Mobility/Gait requires the use of morro- walker and is limited to household distances Functional Limitations- Work/School unable Functional Limitations- Recreation/ unable Hobbies Personal Factors Other Personal Factors That May Effect anxiety, depression, poor Therapy/Recovery memory PT-OP-C Subjective Start: 05/28/19 08:11 Freq: Status: Active Protocol: Document 06/19/19 13:45 SP (Rec: 06/19/19 15:59 SP [id number]) OP-PT Subjective Patient Comments Patient Comments Pt reported has been working on L side stepping and stair mgt with R HR at home along with sit to stands and supine ex. PT-OP-D Balance Start: 05/28/19 08:11 Freq: Status: Active Protocol: Document 05/29/19 14:30 [facility] (Rec: 05/30/19 14:24 [facility] [id number]) OP-PT Balance Assessment Sitting Balance Static Sitting Balance Ability Good Dynamic Sitting Balance Ability Fair Standing Balance Static Standing Balance Ability Good Dynamic Standing Balance Ability Fair Device Used hemiwalker right Tinetti Balance Assessment Sitting Balance Sitting Balance Steady, safe Arising from Chair Attempts to Arise Able, requires >1 attempt Standing Balance Immediate Standing Balance Steady with support Standing Balance Steady, wide stance Nudged Response Begins to fall Standing with Eyes Closed Unsteady Turning Step Pattern Turning 360 Degrees Discontinuous steps Stability Turning 360 Degrees Unsteady, grabs/staggers Sitting Down Sitting Down Uses arms or unsteady Gait and Step Initiation of Gait Hesitancy, mult. attempts Right Foot Step Length Does not pass stance ft. Right Foot Step Height Does not clear floor Left Foot Step Length Does not pass stance foot Left Foot Step Height Does not clear floor Step Description Step Symmetry Step length not equal Gait Description Path Description Mild/moderate deviation Trunk Description Marked sway or uses aide Walking Stance Heels apart Scoring and Interpretation Tinetti Composite Score (points) 6 Interpretation of Scores High risk for falls(< 19) Herrera Fall Scale Copyright Permission PT-OP-G Mobility & Gait Start: 05/28/19 08:11 Freq: Status: Active Protocol: Document 05/29/19 14:30 [facility] (Rec: 05/30/19 14:24 [facility] [id number]) OP Mobility Evaluation Bed Mobility Rolling min assist Supine to and from Sit min assist Transfers Sit to Stand uses right UE Bed to Chair Transfers uses right UE Floor Transfers unable Functional Movements Squats uses primarily right LE OP Gait Assessment Gait Gait Assistance Required: Standby Assistance Distance (Feet) 20 Assistive Devices Assistive Device Morro Walker Orthotic/Prosthetic Devices or Brace: Yes Gait Deviations General Gait Pattern Decreased Stride Length, Decreased Feet Clearance, Lateral Trunk Lean,Wide Based Gait Factors Limiting Gait Function Factors Limiting Gait Function Abnormal Tonal Influences, Decreased Strength PT-OP-H Neuro Start: 05/28/19 08:11 Freq: Status: Active Protocol: Document 05/29/19 14:30 [facility] (Rec: 05/30/19 14:24 [facility] [id number]) Sensation Evaluation Gross Sensation Gross Sensation Left UE Impaired,Left LE Impaired Sensation Description Paresthesia,Numbness Coordination Evaluation Lower Extremity Tests Left Alternate Heel to Knee; Heel to Toe Test Moderate Impairment Heel on Boles Test Moderate Impairment Foot Tapping Test Moderate Impairment PT-OP-K Range of Motion Start: 05/28/19 08:11 Freq: Status: Active Protocol: Document 05/29/19 14:30 SAK (Rec: 05/30/19 14:24 SAK [id number]) Hip Goniometric Range of Motion Hip jake Hip ROM WFL Yes Knee Goniometric Range of Motion Knee jake Knee ROM WFL Yes Ankle and Foot Goniometric Range of Motion Ankle and Foot Left Active Ankle/Foot ROM WFL No Right Ankle/Foot ROM WFL Yes Ankle and Foot ROM Limitations Comments left ankle df -5, right 5 PT-OP-M Strength Start: 05/28/19 08:11 Freq: Status: Active Protocol: Document 05/29/19 14:30 SAK (Rec: 05/30/19 14:24 SAK [id number]) Hip Strength Hip Manual Muscle Testing Left Flexion (L2) 3- Fair- Extension (S1) 2 Poor Abduction 2+ Poor+ External Rotation 3- Fair- Internal Rotation 3+ Fair+ Right Flexion (L2) 4 Good Extension (S1) 4- Good- Abduction 4 Good External Rotation 3+ Fair+ Internal Rotation 4- Good- Knee Strength Knee Manual Muscle Testing Left Flexion (S2) 3 Fair Extension (L3) 3+ Fair+ Right Flexion (S2) 4+ Good+ Extension (L3) 4+ Good+ Ankle/Foot Strength Ankle and Foot Manual Muscle Testing Left Dorsiflexion (L4) 0 Zero Plantarflexion (S1) 0 Zero Right Dorsiflexion (L4) 4+ Good+ Plantarflexion (S1) 4+ Good+ PT-OP-Q Treatments Start: 05/28/19 08:11 Freq: Status: Active Protocol: Document 06/19/19 13:45 SP (Rec: 06/19/19 15:59 SP [id number]) Cardio Equipment Recumbent Elliptical ([employer]) Duration (Minutes) 6 Resistance 2 Other support for LUE on hand rail, L knee support into adduction to neutral Therapeutic Exercises Supine Exercises hamstring stretch Supine Exercise Name PROM Side bilateral Equipment Used manual assist Reps/Minutes 2x30 sec Sitting Exercises glut stretch Sitting Exercise Name R UE support RLE over LLE Reps/Minutes 30 x2 Comments cradle knee toward chest Standing Exercises f/b/side stepping Equipment Used rail Reps/Minutes 10 ft x2 laps each direction Comments cued L LE parallel side stepping, foward/backward knee flexion sit to stands Reps/Minutes x10 Neuro Re-Education Treatment Balance Activities NBOS, modified tandem Equipment raised table contact support Comments EO, EC, head turns PT-OP-T Assessment and Plan Start: 05/28/19 08:11 Freq: Status: Active Protocol: Document 06/19/19 13:45 SP (Rec: 06/19/19 15:59 SP [id number]) Physical Therapy Assessment Goals Four Impairment requires assistance with bed mobility and transfers Short Term Goal (STG) Patient will be able to perform all bed mobility independently to improve her functional independence. STG Duration 07/10/19 Detention Goal (LTG) Patient will be able to perform a floor transfer with SB to min assist LTG Duration 08/27/19 Three Impairment weakness left UE and LE s/p CVA Detention Goal (LTG) Improve functional strength in left LE, as evidenced by ability to move from sit > < stand without use of UE's. Request OT for left UE rehab. LTG Duration 08/27/19 Two Impairment balance dysfunction with high risk for falls Detention Goal (LTG) Improve balance as evidenced by improvement in Tinnetti balance and gait score to low fall risk range to improve safety in the home and community. LTG Duration 08/27/19 One Impairment requires morro-walker for gait, limited to household Detention Goal (LTG) Patient able to ambulate with least restrictive device for functional community distances to improve her functional independence and quality of life. LTG Duration 08/27/19 Assessment Summary Assessment Pt reported lateral L calf little burning sensation post lateral L side stepping but improved post hip IR AROM and glut stretch seated and manual HS stretch. Pt demonstrated improvement in heel toe LLE advancement with decreased L hip ER during heel stride into midstance gait. Physical Therapy Plan Frequency and Duration Frequency of Treatment 2x/Week Duration of Treatment 12 wks Plan of Care Start Date 05/28/19 Plan of Care End Date 08/27/19 Therapeutic Interventions Therapeutic Interventions Aquatic Therapy,Balance Training,Gait Training,Home Exercise Program,Neuromuscular Re-education,Orthotic/ Prosthetic Management,Patient/ Caregiver Education,Self-Care/ Home Management,Taping, Therapeutic Activities, Therapeutic Exercises Modalities Cold Pack/Ice Massage,Hot Packs Next Visit Focus/Plan Next Note Type Treatment Note Next Visit Plan Assess response to last tx: boidex warm up with support Dajuan QUINN and BETH, standing balance activities added last tx Next tx add seated Scottish ball performed prior PT for seated core strength assist. Awareness of PT POC: Initiate PT treatment with therapeutic exercise, neuro-re-ed, gait training. Review HEP and begin gait training.
--- NOTE | 2019-06-22 13:19 | PT.OTN ---
Current Diagnoses Hemiplegia, unspecified affecting unspecified side (06/19/19) Difficulty in walking, not elsewhere classified (06/19/19) Weakness (06/19/19) History of falling (06/19/19) Physical Therapy Treatment Note PT-OP-A Visit Information Start: 05/28/19 08:11 Freq: Status: Active Protocol: Document 06/22/19 10:34 LJ (Rec: 06/22/19 13:19 LJ [id number]) Out-Patient Physical Therapy Visit Information Visit Information Visit Type Aquatic Treatment Note Visit Start Time 10:34 Visit Stop Time 11:08 Total Visit Minutes 34 Visit Number 5 Number of TAPE MAKING MACHINE OPERATOR Visits 4 PT-OP-B Current Condition Start: 05/28/19 08:11 Freq: Status: Active Protocol: Document 05/28/19 14:30 SAK (Rec: 05/29/19 16:53 SAK [id number]) Current Condition History of Current Condition Onset Date 2014 Current Complaints weakness, requires assistance with all mobility and household tasks History of Current Condition Reports that she suffered a stroke in 2014 after surgery for brain aneurysm. CVA caused weakness on the left side of her body, gait and balance difficulty, seizures. Prior Treatments and Tests prior PT, OT Future Testing and Treatments Planned uncertain of when has next physician appointment Treatment Goals Patient/Caregiver Goals Improve her strength, gait, balance, be trained in a floor transfer. Prior Functional Status Baseline Function- ADL's Independent Baseline Function- Mobility Independent Baseline Function- Gait was independent with gait without device Baseline Function- Work/School was able to work without limitations Baseline Function- Recreation/Hobbies no limitations Current Functional Impairments (Reported) Functional Limitations- ADL's assistance with all ADL's Functional Limitations- Mobility/Gait requires the use of morro- walker and is limited to household distances Functional Limitations- Work/School unable Functional Limitations- Recreation/ unable Hobbies Personal Factors Other Personal Factors That May Effect anxiety, depression, poor Therapy/Recovery memory PT-OP-C Subjective Start: 05/28/19 08:11 Freq: Status: Active Protocol: Document 06/22/19 10:34 LJ (Rec: 06/22/19 13:19 LJ [id number]) OP-PT Subjective Patient Comments Patient Comments Pt arrived at 10:15 thinking that her appointment began at 10:30. Her caregiver did not show up that morning and her mother, Radha< is not able to assist patient with much. PT-OP-D Balance Start: 05/28/19 08:11 Freq: Status: Active Protocol: Document 05/29/19 14:30 [facility] (Rec: 05/30/19 14:24 [facility] [id number]) OP-PT Balance Assessment Sitting Balance Static Sitting Balance Ability Good Dynamic Sitting Balance Ability Fair Standing Balance Static Standing Balance Ability Good Dynamic Standing Balance Ability Fair Device Used hemiwalker right Tinetti Balance Assessment Sitting Balance Sitting Balance Steady, safe Arising from Chair Attempts to Arise Able, requires >1 attempt Standing Balance Immediate Standing Balance Steady with support Standing Balance Steady, wide stance Nudged Response Begins to fall Standing with Eyes Closed Unsteady Turning Step Pattern Turning 360 Degrees Discontinuous steps Stability Turning 360 Degrees Unsteady, grabs/staggers Sitting Down Sitting Down Uses arms or unsteady Gait and Step Initiation of Gait Hesitancy, mult. attempts Right Foot Step Length Does not pass stance ft. Right Foot Step Height Does not clear floor Left Foot Step Length Does not pass stance foot Left Foot Step Height Does not clear floor Step Description Step Symmetry Step length not equal Gait Description Path Description Mild/moderate deviation Trunk Description Marked sway or uses aide Walking Stance Heels apart Scoring and Interpretation Tinetti Composite Score (points) 6 Interpretation of Scores High risk for falls(< 19) Herrera Fall Scale Copyright Permission PT-OP-G Mobility & Gait Start: 05/28/19 08:11 Freq: Status: Active Protocol: Document 05/29/19 14:30 [facility] (Rec: 05/30/19 14:24 [facility] [id number]) OP Mobility Evaluation Bed Mobility Rolling min assist Supine to and from Sit min assist Transfers Sit to Stand uses right UE Bed to Chair Transfers uses right UE Floor Transfers unable Functional Movements Squats uses primarily right LE OP Gait Assessment Gait Gait Assistance Required: Standby Assistance Distance (Feet) 20 Assistive Devices Assistive Device Morro Walker Orthotic/Prosthetic Devices or Brace: Yes Gait Deviations General Gait Pattern Decreased Stride Length, Decreased Feet Clearance, Lateral Trunk Lean,Wide Based Gait Factors Limiting Gait Function Factors Limiting Gait Function Abnormal Tonal Influences, Decreased Strength PT-OP-H Neuro Start: 05/28/19 08:11 Freq: Status: Active Protocol: Document 05/29/19 14:30 [facility] (Rec: 05/30/19 14:24 [facility] [id number]) Sensation Evaluation Gross Sensation Gross Sensation Left UE Impaired,Left LE Impaired Sensation Description Paresthesia,Numbness Coordination Evaluation Lower Extremity Tests Left Alternate Heel to Knee; Heel to Toe Test Moderate Impairment Heel on Boles Test Moderate Impairment Foot Tapping Test Moderate Impairment PT-OP-K Range of Motion Start: 05/28/19 08:11 Freq: Status: Active Protocol: Document 05/29/19 14:30 [facility] (Rec: 05/30/19 14:24 SAK [id number]) Hip Goniometric Range of Motion Hip jake Hip ROM WFL Yes Knee Goniometric Range of Motion Knee jake Knee ROM WFL Yes Ankle and Foot Goniometric Range of Motion Ankle and Foot Left Active Ankle/Foot ROM WFL No Right Ankle/Foot ROM WFL Yes Ankle and Foot ROM Limitations Comments left ankle df -5, right 5 PT-OP-M Strength Start: 05/28/19 08:11 Freq: Status: Active Protocol: Document 05/29/19 14:30 [facility] (Rec: 05/30/19 14:24 SAK [id number]) Hip Strength Hip Manual Muscle Testing Left Flexion (L2) 3- Fair- Extension (S1) 2 Poor Abduction 2+ Poor+ External Rotation 3- Fair- Internal Rotation 3+ Fair+ Right Flexion (L2) 4 Good Extension (S1) 4- Good- Abduction 4 Good External Rotation 3+ Fair+ Internal Rotation 4- Good- Knee Strength Knee Manual Muscle Testing Left Flexion (S2) 3 Fair Extension (L3) 3+ Fair+ Right Flexion (S2) 4+ Good+ Extension (L3) 4+ Good+ Ankle/Foot Strength Ankle and Foot Manual Muscle Testing Left Dorsiflexion (L4) 0 Zero Plantarflexion (S1) 0 Zero Right Dorsiflexion (L4) 4+ Good+ Plantarflexion (S1) 4+ Good+ PT-OP-Q Treatments Start: 05/28/19 08:11 Freq: Status: Active Protocol: Document 06/19/19 13:45 SP (Rec: 06/19/19 15:59 SP [id number]) Cardio Equipment Recumbent Elliptical ([employer]) Duration (Minutes) 6 Resistance 2 Other support for LUE on hand rail, L knee support into adduction to neutral Therapeutic Exercises Supine Exercises hamstring stretch Supine Exercise Name PROM Side bilateral Equipment Used manual assist Reps/Minutes 2x30 sec Sitting Exercises glut stretch Sitting Exercise Name R UE support RLE over LLE Reps/Minutes 30 x2 Comments cradle knee toward chest Standing Exercises f/b/side stepping Equipment Used rail Reps/Minutes 10 ft x2 laps each direction Comments cued L LE parallel side stepping, foward/backward knee flexion sit to stands Reps/Minutes x10 Neuro Re-Education Treatment Balance Activities NBOS, modified tandem Equipment raised table contact support Comments EO, EC, head turns PT-OP-S Aquatic Treatment Start: 05/28/19 08:11 Freq: Status: Active Protocol: Document 06/22/19 10:34 [facility]IL[facility] (Rec: 06/22/19 13:19 [id number]) Aquatics Treatment Pool Entry/Exit Pool Entry/Exit Method Lift Assistance Minimal Assistance,Verbal Cues Comments take several minutes to change into water shoes Water Walking Marching Water Level Neck Level Walking Equipment Ankle Weight- 2.5#, sm float on LUE, sm [place] float Level of Assistance Contact Guard Assistance, Verbal Cues Sideways Water Level Waist Level Walking Equipment Ankle Weight- 2.5#, sm float on LUE Level of Assistance Contact Guard Assistance, Minimal Assistance,Verbal Cues Comments HH on wall w/RUE Forwards Water Level Waist Level Walking Equipment Ankle Weight- 2.5#, sm float on LUE Level of Assistance Contact Guard Assistance, Minimal Assistance,Verbal Cues Comments HH on wall w/RUE Lower Extremity Exercises SLS LLE Details HH on wall Body Position Standing Water Level Waist Level Equipment Ankle Weight- 2.5#, sm float on LUE Reps/Duration [id number] sec Comments assist with bracing LLE weight [id number] Details at wall Body Position Standing Water Level Waist Level Equipment Ankle Weight- 2.5#, sm float on LUE Comments assist with bracing left knee [place] Activities [place] Activities Bicycle Equipment sm float LUE, #2.5 LLE, sm [place] float Duration 5 min Comments CGA + Roberto for cues and directioning PT-OP-T Assessment and Plan Start: 05/28/19 08:11 Freq: Status: Active Protocol: Document 06/22/19 10:34 [facility] (Rec: 06/22/19 13:19 [id number]) Physical Therapy Assessment Goals Four Impairment requires assistance with bed mobility and transfers Short Term Goal (STG) Patient will be able to perform all bed mobility independently to improve her functional independence. STG Duration 07/10/19 Correction Goal (LTG) Patient will be able to perform a floor transfer with SB to min assist LTG Duration 08/27/19 Three Impairment weakness left UE and LE s/p CVA Conditioning Yard Supervisor Goal (LTG) Improve functional strength in left LE, as evidenced by ability to move from sit > < stand without use of UE's. Request OT for left UE rehab. LTG Duration 08/27/19 Two Impairment balance dysfunction with high risk for falls Correction Goal (LTG) Improve balance as evidenced by improvement in Tinnetti balance and gait score to low fall risk range to improve safety in the home and community. LTG Duration 08/27/19 One Impairment requires morro-walker for gait, limited to household Correction Goal (LTG) Patient able to ambulate with least restrictive device for functional community distances to improve her functional independence and quality of life. LTG Duration 08/27/19 Assessment Summary Assessment Pt arrived late without caregiver which resulted in taking longer in the locker room. She moves very slowly on deck walking to lift chair. First time pt was lowered into the water she experienced pain and needed to be lifted out of the water. She requested to try again and second time immersing, she tolerated the water. Pt wor sm float on LUE and #2.5 on LLE. During ambulation, left ankle tends to roll and externally rotate. Pt is able to get her foot flat with effort. Required bracing of left knee for SLS or it would buckle. Pt tolerated deep water bicycling and was able to increase the intensity of exercise. She was nervous initially but did well after donning the floatation. Physical Therapy Plan Frequency and Duration Frequency of Treatment 2x/Week Duration of Treatment 12 wks Plan of Care Start Date 05/28/19 Plan of Care End Date 08/27/19 Therapeutic Interventions Therapeutic Interventions Aquatic Therapy,Balance Training,Gait Training,Home Exercise Program,Neuromuscular Re-education,Orthotic/ Prosthetic Management,Patient/ Caregiver Education,Self-Care/ Home Management,Taping, Therapeutic Activities, Therapeutic Exercises Modalities Cold Pack/Ice Massage,Hot Packs Next Visit Focus/Plan Next Note Type Treatment Note Next Visit Plan Progress gait activities in the pool adding strengthening exercises for trunk, LEs and RUE. Progress balance activities as tolerated.
--- NOTE | 2019-06-25 15:51 | PT.OTN ---
Current Diagnoses Hemiplegia, unspecified affecting unspecified side (06/25/19) Difficulty in walking, not elsewhere classified (06/25/19) Weakness (06/25/19) History of falling (06/25/19) Physical Therapy Treatment Note PT-OP-A Visit Information Start: 05/28/19 08:11 Freq: Status: Active Protocol: Document 06/25/19 15:28 LJ (Rec: 06/25/19 15:51 LJ [email or web address]) Out-Patient Physical Therapy Visit Information Visit Information Visit Type Aquatic Treatment Note Visit Start Time 12:30 Visit Stop Time 13:20 Total Visit Minutes 50 Visit Number 6 Number of PHYSICAL THERAPIST CENTER MANAGER Visits 5 PT-OP-B Current Condition Start: 05/28/19 08:11 Freq: Status: Active Protocol: Document 05/28/19 14:30 SAK (Rec: 05/29/19 16:53 SAK [id number]) Current Condition History of Current Condition Onset Date 2014 Current Complaints weakness, requires assistance with all mobility and household tasks History of Current Condition Reports that she suffered a stroke in 2014 after surgery for brain aneurysm. CVA caused weakness on the left side of her body, gait and balance difficulty, seizures. Prior Treatments and Tests prior PT, OT Future Testing and Treatments Planned uncertain of when has next physician appointment Treatment Goals Patient/Caregiver Goals Improve her strength, gait, balance, be trained in a floor transfer. Prior Functional Status Baseline Function- ADL's Independent Baseline Function- Mobility Independent Baseline Function- Gait was independent with gait without device Baseline Function- Work/School was able to work without limitations Baseline Function- Recreation/Hobbies no limitations Current Functional Impairments (Reported) Functional Limitations- ADL's assistance with all ADL's Functional Limitations- Mobility/Gait requires the use of morro- walker and is limited to household distances Functional Limitations- Work/School unable Functional Limitations- Recreation/ unable Hobbies Personal Factors Other Personal Factors That May Effect anxiety, depression, poor Therapy/Recovery memory PT-OP-C Subjective Start: 05/28/19 08:11 Freq: Status: Active Protocol: Document 06/25/19 15:28 LJ (Rec: 06/25/19 15:51 LJ [email or web address]) OP-PT Subjective Patient Comments Patient Comments Pt didn't have discomport with entering the water this session. She offered to bring her soft brace for her left foot sto assist in keeping it from rolling outward PT-OP-D Balance Start: 05/28/19 08:11 Freq: Status: Active Protocol: Document 05/29/19 14:30 [facility] (Rec: 05/30/19 14:24 [facility] [id number]) OP-PT Balance Assessment Sitting Balance Static Sitting Balance Ability Good Dynamic Sitting Balance Ability Fair Standing Balance Static Standing Balance Ability Good Dynamic Standing Balance Ability Fair Device Used hemiwalker right Tinetti Balance Assessment Sitting Balance Sitting Balance Steady, safe Arising from Chair Attempts to Arise Able, requires >1 attempt Standing Balance Immediate Standing Balance Steady with support Standing Balance Steady, wide stance Nudged Response Begins to fall Standing with Eyes Closed Unsteady Turning Step Pattern Turning 360 Degrees Discontinuous steps Stability Turning 360 Degrees Unsteady, grabs/staggers Sitting Down Sitting Down Uses arms or unsteady Gait and Step Initiation of Gait Hesitancy, mult. attempts Right Foot Step Length Does not pass stance ft. Right Foot Step Height Does not clear floor Left Foot Step Length Does not pass stance foot Left Foot Step Height Does not clear floor Step Description Step Symmetry Step length not equal Gait Description Path Description Mild/moderate deviation Trunk Description Marked sway or uses aide Walking Stance Heels apart Scoring and Interpretation Tinetti Composite Score (points) 6 Interpretation of Scores High risk for falls(< 19) Herrera Fall Scale Copyright Permission PT-OP-G Mobility & Gait Start: 05/28/19 08:11 Freq: Status: Active Protocol: Document 05/29/19 14:30 [facility] (Rec: 05/30/19 14:24 [facility] [id number]) OP Mobility Evaluation Bed Mobility Rolling min assist Supine to and from Sit min assist Transfers Sit to Stand uses right UE Bed to Chair Transfers uses right UE Floor Transfers unable Functional Movements Squats uses primarily right LE OP Gait Assessment Gait Gait Assistance Required: Standby Assistance Distance (Feet) 20 Assistive Devices Assistive Device Morro Walker Orthotic/Prosthetic Devices or Brace: Yes Gait Deviations General Gait Pattern Decreased Stride Length, Decreased Feet Clearance, Lateral Trunk Lean,Wide Based Gait Factors Limiting Gait Function Factors Limiting Gait Function Abnormal Tonal Influences, Decreased Strength PT-OP-H Neuro Start: 05/28/19 08:11 Freq: Status: Active Protocol: Document 05/29/19 14:30 [facility] (Rec: 05/30/19 14:24 [facility] [id number]) Sensation Evaluation Gross Sensation Gross Sensation Left UE Impaired,Left LE Impaired Sensation Description Paresthesia,Numbness Coordination Evaluation Lower Extremity Tests Left Alternate Heel to Knee; Heel to Toe Test Moderate Impairment Heel on Boles Test Moderate Impairment Foot Tapping Test Moderate Impairment PT-OP-K Range of Motion Start: 05/28/19 08:11 Freq: Status: Active Protocol: Document 05/29/19 14:30 SAK (Rec: 05/30/19 14:24 SAK [id number]) Hip Goniometric Range of Motion Hip jake Hip ROM WFL Yes Knee Goniometric Range of Motion Knee jake Knee ROM WFL Yes Ankle and Foot Goniometric Range of Motion Ankle and Foot Left Active Ankle/Foot ROM WFL No Right Ankle/Foot ROM WFL Yes Ankle and Foot ROM Limitations Comments left ankle df -5, right 5 PT-OP-M Strength Start: 05/28/19 08:11 Freq: Status: Active Protocol: Document 05/29/19 14:30 SAK (Rec: 05/30/19 14:24 SAK [id number]) Hip Strength Hip Manual Muscle Testing Left Flexion (L2) 3- Fair- Extension (S1) 2 Poor Abduction 2+ Poor+ External Rotation 3- Fair- Internal Rotation 3+ Fair+ Right Flexion (L2) 4 Good Extension (S1) 4- Good- Abduction 4 Good External Rotation 3+ Fair+ Internal Rotation 4- Good- Knee Strength Knee Manual Muscle Testing Left Flexion (S2) 3 Fair Extension (L3) 3+ Fair+ Right Flexion (S2) 4+ Good+ Extension (L3) 4+ Good+ Ankle/Foot Strength Ankle and Foot Manual Muscle Testing Left Dorsiflexion (L4) 0 Zero Plantarflexion (S1) 0 Zero Right Dorsiflexion (L4) 4+ Good+ Plantarflexion (S1) 4+ Good+ PT-OP-Q Treatments Start: 05/28/19 08:11 Freq: Status: Active Protocol: Document 06/19/19 13:45 SP (Rec: 06/19/19 15:59 SP [id number]) Cardio Equipment Recumbent Elliptical (Biodex) Duration (Minutes) 6 Resistance 2 Other support for LUE on hand rail, L knee support into adduction to neutral Therapeutic Exercises Supine Exercises hamstring stretch Supine Exercise Name PROM Side bilateral Equipment Used manual assist Reps/Minutes 2x30 sec Sitting Exercises glut stretch Sitting Exercise Name R UE support RLE over LLE Reps/Minutes 30 x2 Comments cradle knee toward chest Standing Exercises f/b/side stepping Equipment Used rail Reps/Minutes 10 ft x2 laps each direction Comments cued L LE parallel side stepping, foward/backward knee flexion sit to stands Reps/Minutes x10 Neuro Re-Education Treatment Balance Activities NBOS, modified tandem Equipment raised table contact support Comments EO, EC, head turns PT-OP-S Aquatic Treatment Start: 05/28/19 08:11 Freq: Status: Active Protocol: Document 06/25/19 15:28 NILAY (Rec: 06/25/19 15:51 [email or web address]) Aquatics Treatment Pool Entry/Exit Pool Entry/Exit Method Lift Assistance Minimal Assistance,Verbal Cues Comments take several minutes to change into water shoes Water Walking Marching Water Level Chest Level Walking Equipment Ankle Weight- 2.5#, sm float on LUE, sm [place] float Level of Assistance Contact Guard Assistance, Minimal Assistance,Verbal Cues Comments sm blue float around waist Sideways Water Level Chest Level Walking Equipment Ankle Weight- 2.5#, sm float on LUE Level of Assistance Contact Guard Assistance, Minimal Assistance,Verbal Cues Comments sm blue float around waist Forwards Water Level Chest Level Walking Equipment Ankle Weight- 2.5#, sm float on LUE Level of Assistance Contact Guard Assistance, Minimal Assistance,Verbal Cues Comments sm blue float around waist Lower Extremity Exercises left hip flex/ext Details back against wall Body Position Standing Water Level Chest Level Equipment Ankle Floats Reps/Duration 10 Comments manual assist for maintaining knee extension weight shifting staggard stance Details HH on wall Body Position Standing Water Level Waist Level Equipment Ankle Weight- 2.5#, sm float on LUE Comments assist with bracing left knee SLS LLE Details HH on wall Body Position Standing Water Level Waist Level Equipment Ankle Weight- 2.5#, sm float on LUE Reps/Duration 8m33-83 sec Comments assist with bracing LLE, weight [id number] Details at wall Body Position Standing Water Level Waist Level Equipment Ankle Weight- 2.5#, sm float on LUE Comments assist with bracing left knee Lower Extremity Stretches adductors Details back against wall Body Position Standing Water Level Waist Level Equipment Ankle Floats Comments gentle dynamic stretch Hs Details back against wall Body Position Standing Water Level Waist Level Equipment Large Noodle Reps/Duration 2x45 sec Upper Extremity Exercises push pull Details back against wall Body Position Standing Water Level Waist Level Equipment lg noodle Reps/Duration 10x Comments assist with LUE hh on noodle Daggett Activities Daggett Activities Bicycle,Running,Sit Kicks Other Activities flutter kick Equipment sm float LUE, #2.5 LLE, sm [place] float Comments CGA + Roberto for vertical alignment and directioning PT-OP-T Assessment and Plan Start: 05/28/19 08:11 Freq: Status: Active Protocol: Document 06/25/19 15:28 LJ (Rec: 06/25/19 15:51 LJ [email or web address]) Physical Therapy Assessment Rehab Potential Rehabilitation Potential Fair Evaluation Complexity Number of Personal Factors/Comorbidities 3 or More Number of Body Systems Impaired 4 or More Clinical Presentation at Evaluation Evolving Impairments Impairments Balance,Functional Mobility, Gait,Strength Goals Four Impairment requires assistance with bed mobility and transfers Short Term Goal (STG) Patient will be able to perform all bed mobility independently to improve her functional independence. STG Duration 07/10/19 Half-Way Goal (LTG) Patient will be able to perform a floor transfer with SB to min assist LTG Duration 08/27/19 Three Impairment weakness left UE and LE s/p CVA Wind Turbine Engineer Goal (LTG) Improve functional strength in left LE, as evidenced by ability to move from sit > < stand without use of UE's. Request OT for left UE rehab. LTG Duration 08/27/19 Two Impairment balance dysfunction with high risk for falls Half-Way Goal (LTG) Improve balance as evidenced by improvement in Tinnetti balance and gait score to low fall risk range to improve safety in the home and community. LTG Duration 08/27/19 One Impairment requires morro-walker for gait, limited to household Wind Turbine Engineer Goal (LTG) Patient able to ambulate with least restrictive device for functional community distances to improve her functional independence and quality of life. LTG Duration 08/27/19 Assessment Summary Assessment Pt tolerated initial immersion without pain this session. During ambulation, left ankle tends to roll and externally rotate and required bracing and assistance with left foot. Pt is able to get her foot flat with effort. Required bracing of left knee for SLS and weight shifting. Pt tolerated deep water bicycling for several minutes but LLE remained mostly flacid so we changed exercises in hopes of getting more movement. Pt began experiencing LE cramping so deep water was abandoned. Pt required assistance to don shoes after therapy was finiished Physical Therapy Plan Frequency and Duration Frequency of Treatment 2x/Week Duration of Treatment 12 wks Plan of Care Start Date 05/28/19 Plan of Care End Date 08/27/19 Therapeutic Interventions Therapeutic Interventions Aquatic Therapy,Balance Training,Gait Training,Home Exercise Program,Neuromuscular Re-education,Orthotic/ Prosthetic Management,Patient/ Caregiver Education,Self-Care/ Home Management,Taping, Therapeutic Activities, Therapeutic Exercises Modalities Cold Pack/Ice Massage,Hot Packs Next Visit Focus/Plan Next Note Type Treatment Note Next Visit Plan Progress gait activities in the pool adding strengthening exercises for trunk, LEs and RUE. Progress balance activities as tolerated. Trial hydrobike and LE brace to improve gait mechanics and balance.
--- NOTE | 2019-06-27 10:45 | PT-OP ANOTE ---
Pt no showed today's morning appt, front desk associate stated she had a Dr appt at [phone] and wasn't sure could make it to see PT Renetta at [phone] for 6th visit but would try. Pt did not show. service desk analyst will call patient to see if can make it to 11ish appt time today for another PT to see for 6 th visit but if can't need to reschedule to see PT next for a land or pool with Renetta.
--- NOTE | 2019-06-27 14:16 | PT-OP ANOTE ---
DNS for today's PT appointment
--- NOTE | 2019-06-28 09:45 | PT.OTN ---
Current Diagnoses Hemiplegia, unspecified affecting unspecified side (06/28/19) Difficulty in walking, not elsewhere classified (06/28/19) Weakness (06/28/19) History of falling (06/28/19) Physical Therapy Treatment Note PT-OP-A Visit Information Start: 05/28/19 08:11 Freq: Status: Active Protocol: Document 06/28/19 09:45 SAK (Rec: 06/30/19 15:09 SAK [id number]) Out-Patient Physical Therapy Visit Information Visit Information Visit Type Treatment Note Visit Start Time 09:45 Visit Stop Time 10:33 Total Visit Minutes 48 Visit Number 7 Number of INSULATION NOZZLEMAN Visits 0 PT-OP-B Current Condition Start: 05/28/19 08:11 Freq: Status: Active Protocol: Document 05/28/19 14:30 SAK (Rec: 05/29/19 16:53 SAK [id number]) Current Condition History of Current Condition Onset Date 2014 Current Complaints weakness, requires assistance with all mobility and household tasks History of Current Condition Reports that she suffered a stroke in 2014 after surgery for brain aneurysm. CVA caused weakness on the left side of her body, gait and balance difficulty, seizures. Prior Treatments and Tests prior PT, OT Future Testing and Treatments Planned uncertain of when has next physician appointment Treatment Goals Patient/Caregiver Goals Improve her strength, gait, balance, be trained in a floor transfer. Prior Functional Status Baseline Function- ADL's Independent Baseline Function- Mobility Independent Baseline Function- Gait was independent with gait without device Baseline Function- Work/School was able to work without limitations Baseline Function- Recreation/Hobbies no limitations Current Functional Impairments (Reported) Functional Limitations- ADL's assistance with all ADL's Functional Limitations- Mobility/Gait requires the use of morro- walker and is limited to household distances Functional Limitations- Work/School unable Functional Limitations- Recreation/ unable Hobbies Personal Factors Other Personal Factors That May Effect anxiety, depression, poor Therapy/Recovery memory PT-OP-C Subjective Start: 05/28/19 08:11 Freq: Status: Active Protocol: Document 06/28/19 09:45 SAK (Rec: 06/30/19 15:09 SAK [id number]) OP-PT Subjective Patient Comments Patient Comments Patient reports some shoulder discomfort due to forgetting to put her shoulder brace on today. PT-OP-D Balance Start: 05/28/19 08:11 Freq: Status: Active Protocol: Document 05/29/19 14:30 [facility] (Rec: 05/30/19 14:24 [facility] [id number]) OP-PT Balance Assessment Sitting Balance Static Sitting Balance Ability Good Dynamic Sitting Balance Ability Fair Standing Balance Static Standing Balance Ability Good Dynamic Standing Balance Ability Fair Device Used hemiwalker right Tinetti Balance Assessment Sitting Balance Sitting Balance Steady, safe Arising from Chair Attempts to Arise Able, requires >1 attempt Standing Balance Immediate Standing Balance Steady with support Standing Balance Steady, wide stance Nudged Response Begins to fall Standing with Eyes Closed Unsteady Turning Step Pattern Turning 360 Degrees Discontinuous steps Stability Turning 360 Degrees Unsteady, grabs/staggers Sitting Down Sitting Down Uses arms or unsteady Gait and Step Initiation of Gait Hesitancy, mult. attempts Right Foot Step Length Does not pass stance ft. Right Foot Step Height Does not clear floor Left Foot Step Length Does not pass stance foot Left Foot Step Height Does not clear floor Step Description Step Symmetry Step length not equal Gait Description Path Description Mild/moderate deviation Trunk Description Marked sway or uses aide Walking Stance Heels apart Scoring and Interpretation Tinetti Composite Score (points) 6 Interpretation of Scores High risk for falls(< 19) Herrera Fall Scale Copyright Permission PT-OP-G Mobility & Gait Start: 05/28/19 08:11 Freq: Status: Active Protocol: Document 05/29/19 14:30 [facility] (Rec: 05/30/19 14:24 [facility] [id number]) OP Mobility Evaluation Bed Mobility Rolling min assist Supine to and from Sit min assist Transfers Sit to Stand uses right UE Bed to Chair Transfers uses right UE Floor Transfers unable Functional Movements Squats uses primarily right LE OP Gait Assessment Gait Gait Assistance Required: Standby Assistance Distance (Feet) 20 Assistive Devices Assistive Device Morro Walker Orthotic/Prosthetic Devices or Brace: Yes Gait Deviations General Gait Pattern Decreased Stride Length, Decreased Feet Clearance, Lateral Trunk Lean,Wide Based Gait Factors Limiting Gait Function Factors Limiting Gait Function Abnormal Tonal Influences, Decreased Strength PT-OP-H Neuro Start: 05/28/19 08:11 Freq: Status: Active Protocol: Document 05/29/19 14:30 [facility] (Rec: 05/30/19 14:24 [facility] [id number]) Sensation Evaluation Gross Sensation Gross Sensation Left UE Impaired,Left LE Impaired Sensation Description Paresthesia,Numbness Coordination Evaluation Lower Extremity Tests Left Alternate Heel to Knee; Heel to Toe Test Moderate Impairment Heel on Boles Test Moderate Impairment Foot Tapping Test Moderate Impairment PT-OP-K Range of Motion Start: 05/28/19 08:11 Freq: Status: Active Protocol: Document 05/29/19 14:30 [facility] (Rec: 05/30/19 14:24 [facility] [id number]) Hip Goniometric Range of Motion Hip jake Hip ROM WFL Yes Knee Goniometric Range of Motion Knee jake Knee ROM WFL Yes Ankle and Foot Goniometric Range of Motion Ankle and Foot Left Active Ankle/Foot ROM WFL No Right Ankle/Foot ROM WFL Yes Ankle and Foot ROM Limitations Comments left ankle df -5, right 5 PT-OP-M Strength Start: 05/28/19 08:11 Freq: Status: Active Protocol: Document 05/29/19 14:30 [facility] (Rec: 05/30/19 14:24 [facility] [id number]) Hip Strength Hip Manual Muscle Testing Left Flexion (L2) 3- Fair- Extension (S1) 2 Poor Abduction 2+ Poor+ External Rotation 3- Fair- Internal Rotation 3+ Fair+ Right Flexion (L2) 4 Good Extension (S1) 4- Good- Abduction 4 Good External Rotation 3+ Fair+ Internal Rotation 4- Good- Knee Strength Knee Manual Muscle Testing Left Flexion (S2) 3 Fair Extension (L3) 3+ Fair+ Right Flexion (S2) 4+ Good+ Extension (L3) 4+ Good+ Ankle/Foot Strength Ankle and Foot Manual Muscle Testing Left Dorsiflexion (L4) 0 Zero Plantarflexion (S1) 0 Zero Right Dorsiflexion (L4) 4+ Good+ Plantarflexion (S1) 4+ Good+ PT-OP-Q Treatments Start: 05/28/19 08:11 Freq: Status: Active Protocol: Document 06/28/19 09:45 [facility] (Rec: 06/30/19 15:12 [facility] [id number]) Cardio Equipment Recumbent Elliptical (Biodex) Duration (Minutes) 8 Resistance 2 Other support for LUE on hand rail, L knee support into adduction to neutral Gym Equipment Shuttle Recovery Unilateral Squats Resistance 37 right, 25 left Shuttle Recovery Platform Stable Reps/Time verbal and manual cues for left LE alignment Bilateral Squats Resistance 50 Shuttle Recovery Platform Stable Reps/Time 10x2 Therapeutic Exercises Standing Exercises f/b/side stepping Equipment Used rail Reps/Minutes 10 ft x2 laps each direction Comments cued L LE parallel side stepping, foward/backward knee flexion sit to stands Reps/Minutes x10 Gait Training Gait Activity 1 Description level surface Device Used quad cane Level of Assistance CGA, manual facil left LE Distance/Duration 50'x2 Treatment Focus increased weight shift to left Le PT-OP-S Aquatic Treatment Start: 05/28/19 08:11 Freq: Status: Active Protocol: Document 06/25/19 15:28 NILAY (Rec: 06/25/19 15:51 LJ [id number]) Aquatics Treatment Pool Entry/Exit Pool Entry/Exit Method Lift Assistance Minimal Assistance,Verbal Cues Comments take several minutes to change into water shoes Water Walking Marching Water Level Chest Level Walking Equipment Ankle Weight- 2.5#, sm float on LUE, sm [place] float Level of Assistance Contact Guard Assistance, Minimal Assistance,Verbal Cues Comments sm blue float around waist Sideways Water Level Chest Level Walking Equipment Ankle Weight- 2.5#, sm float on LUE Level of Assistance Contact Guard Assistance, Minimal Assistance,Verbal Cues Comments sm blue float around waist Forwards Water Level Chest Level Walking Equipment Ankle Weight- 2.5#, sm float on LUE Level of Assistance Contact Guard Assistance, Minimal Assistance,Verbal Cues Comments sm blue float around waist Lower Extremity Exercises left hip flex/ext Details back against wall Body Position Standing Water Level Chest Level Equipment Ankle Floats Reps/Duration 10 Comments manual assist for maintaining knee extension weight shifting staggard stance Details HH on wall Body Position Standing Water Level Waist Level Equipment Ankle Weight- 2.5#, sm float on LUE Comments assist with bracing left knee SLS LLE Details HH on wall Body Position Standing Water Level Waist Level Equipment Ankle Weight- 2.5#, sm float on LUE Reps/Duration 2f75-22 sec Comments assist with bracing LLE, weight [id number] Details at wall Body Position Standing Water Level Waist Level Equipment Ankle Weight- 2.5#, sm float on LUE Comments assist with bracing left knee Lower Extremity Stretches adductors Details back against wall Body Position Standing Water Level Waist Level Equipment Ankle Floats Comments gentle dynamic stretch Hs Details back against wall Body Position Standing Water Level Waist Level Equipment Large Noodle Reps/Duration 2x45 sec Upper Extremity Exercises push pull Details back against wall Body Position Standing Water Level Waist Level Equipment lg noodle Reps/Duration 10x Comments assist with LUE hh on noodle [place] Activities [place] Activities Bicycle,Running,Sit Kicks Other Activities flutter kick Equipment sm float LUE, #2.5 LLE, sm [place] float Comments CGA + Roberto for vertical alignment and directioning PT-OP-T Assessment and Plan Start: 05/28/19 08:11 Freq: Status: Active Protocol: Document 06/28/19 09:45 [facility] (Rec: 06/30/19 15:09 [facility] [id number]) Physical Therapy Assessment Rehab Potential Rehabilitation Potential Fair Evaluation Complexity Number of Personal Factors/Comorbidities 3 or More Number of Body Systems Impaired 4 or More Clinical Presentation at Evaluation Evolving Impairments Impairments Balance,Functional Mobility, Gait,Strength Goals Four Impairment requires assistance with bed mobility and transfers Short Term Goal (STG) Patient will be able to perform all bed mobility independently to improve her functional independence. STG Duration 07/10/19 Python Developer Goal (LTG) Patient will be able to perform a floor transfer with SB to min assist LTG Duration 08/27/19 Three Impairment weakness left UE and LE s/p CVA [facility] Goal (LTG) Improve functional strength in left LE, as evidenced by ability to move from sit > < stand without use of UE's. Request OT for left UE rehab. LTG Duration 08/27/19 Two Impairment balance dysfunction with high risk for falls [facility] Goal (LTG) Improve balance as evidenced by improvement in Tinnetti balance and gait score to low fall risk range to improve safety in the home and community. LTG Duration 08/27/19 One Impairment requires morro-walker for gait, limited to household Python Developer Goal (LTG) Patient able to ambulate with least restrictive device for functional community distances to improve her functional independence and quality of life. LTG Duration 08/27/19 Assessment Summary Assessment Focused primarily on neuro re- ed and gait training to improve patient use her left LE with improved alignment and muscle activation. With mod assist and right UE support on 4 stairs able to ascend and descend with alternating pattern. Physical Therapy Plan Frequency and Duration Frequency of Treatment 2x/Week Duration of Treatment 12 wks Plan of Care Start Date 05/28/19 Plan of Care End Date 08/27/19 Therapeutic Interventions Therapeutic Interventions Aquatic Therapy,Balance Training,Gait Training,Home Exercise Program,Neuromuscular Re-education,Orthotic/ Prosthetic Management,Patient/ Caregiver Education,Self-Care/ Home Management,Taping, Therapeutic Activities, Therapeutic Exercises Modalities Cold Pack/Ice Massage,Hot Packs
--- NOTE | 2019-07-02 15:26 | PT.OTN ---
Current Diagnoses Hemiplegia, unspecified affecting unspecified side (07/02/19) Difficulty in walking, not elsewhere classified (07/02/19) Weakness (07/02/19) History of falling (07/02/19) Physical Therapy Treatment Note PT-OP-A Visit Information Start: 05/28/19 08:11 Freq: Status: Active Protocol: Document 07/02/19 12:30 LJ (Rec: 07/02/19 15:26 LJ [id number]) Out-Patient Physical Therapy Visit Information Visit Information Visit Type Aquatic Treatment Note Visit Start Time 12:30 Visit Stop Time 13:15 Total Visit Minutes 45 Visit Number 8 Number of ALUMNI RELATIONS OFFICER Visits 1 PT-OP-B Current Condition Start: 05/28/19 08:11 Freq: Status: Active Protocol: Document 05/28/19 14:30 SAK (Rec: 05/29/19 16:53 SAK [id number]) Current Condition History of Current Condition Onset Date 2014 Current Complaints weakness, requires assistance with all mobility and household tasks History of Current Condition Reports that she suffered a stroke in 2014 after surgery for brain aneurysm. CVA caused weakness on the left side of her body, gait and balance difficulty, seizures. Prior Treatments and Tests prior PT, OT Future Testing and Treatments Planned uncertain of when has next physician appointment Treatment Goals Patient/Caregiver Goals Improve her strength, gait, balance, be trained in a floor transfer. Prior Functional Status Baseline Function- ADL's Independent Baseline Function- Mobility Independent Baseline Function- Gait was independent with gait without device Baseline Function- Work/School was able to work without limitations Baseline Function- Recreation/Hobbies no limitations Current Functional Impairments (Reported) Functional Limitations- ADL's assistance with all ADL's Functional Limitations- Mobility/Gait requires the use of morro- walker and is limited to household distances Functional Limitations- Work/School unable Functional Limitations- Recreation/ unable Hobbies Personal Factors Other Personal Factors That May Effect anxiety, depression, poor Therapy/Recovery memory PT-OP-C Subjective Start: 05/28/19 08:11 Freq: Status: Active Protocol: Document 07/02/19 12:30 LJ (Rec: 07/02/19 15:26 LJ [id number]) OP-PT Subjective Patient Comments Patient Comments Pt has been practising side stepping exercises at home trying to keep her left foot from inverting PT-OP-D Balance Start: 05/28/19 08:11 Freq: Status: Active Protocol: Document 05/29/19 14:30 [facility] (Rec: 05/30/19 14:24 [facility] [id number]) OP-PT Balance Assessment Sitting Balance Static Sitting Balance Ability Good Dynamic Sitting Balance Ability Fair Standing Balance Static Standing Balance Ability Good Dynamic Standing Balance Ability Fair Device Used hemiwalker right Tinetti Balance Assessment Sitting Balance Sitting Balance Steady, safe Arising from Chair Attempts to Arise Able, requires >1 attempt Standing Balance Immediate Standing Balance Steady with support Standing Balance Steady, wide stance Nudged Response Begins to fall Standing with Eyes Closed Unsteady Turning Step Pattern Turning 360 Degrees Discontinuous steps Stability Turning 360 Degrees Unsteady, grabs/staggers Sitting Down Sitting Down Uses arms or unsteady Gait and Step Initiation of Gait Hesitancy, mult. attempts Right Foot Step Length Does not pass stance ft. Right Foot Step Height Does not clear floor Left Foot Step Length Does not pass stance foot Left Foot Step Height Does not clear floor Step Description Step Symmetry Step length not equal Gait Description Path Description Mild/moderate deviation Trunk Description Marked sway or uses aide Walking Stance Heels apart Scoring and Interpretation Tinetti Composite Score (points) 6 Interpretation of Scores High risk for falls(< 19) Herrera Fall Scale Copyright Permission PT-OP-G Mobility & Gait Start: 05/28/19 08:11 Freq: Status: Active Protocol: Document 05/29/19 14:30 [facility] (Rec: 05/30/19 14:24 [facility] [id number]) OP Mobility Evaluation Bed Mobility Rolling min assist Supine to and from Sit min assist Transfers Sit to Stand uses right UE Bed to Chair Transfers uses right UE Floor Transfers unable Functional Movements Squats uses primarily right LE OP Gait Assessment Gait Gait Assistance Required: Standby Assistance Distance (Feet) 20 Assistive Devices Assistive Device Morro Walker Orthotic/Prosthetic Devices or Brace: Yes Gait Deviations General Gait Pattern Decreased Stride Length, Decreased Feet Clearance, Lateral Trunk Lean,Wide Based Gait Factors Limiting Gait Function Factors Limiting Gait Function Abnormal Tonal Influences, Decreased Strength PT-OP-H Neuro Start: 05/28/19 08:11 Freq: Status: Active Protocol: Document 05/29/19 14:30 [facility] (Rec: 05/30/19 14:24 [facility] [id number]) Sensation Evaluation Gross Sensation Gross Sensation Left UE Impaired,Left LE Impaired Sensation Description Paresthesia,Numbness Coordination Evaluation Lower Extremity Tests Left Alternate Heel to Knee; Heel to Toe Test Moderate Impairment Heel on Boles Test Moderate Impairment Foot Tapping Test Moderate Impairment PT-OP-K Range of Motion Start: 05/28/19 08:11 Freq: Status: Active Protocol: Document 05/29/19 14:30 [facility] (Rec: 05/30/19 14:24 [facility] [id number]) Hip Goniometric Range of Motion Hip jake Hip ROM WFL Yes Knee Goniometric Range of Motion Knee jake Knee ROM WFL Yes Ankle and Foot Goniometric Range of Motion Ankle and Foot Left Active Ankle/Foot ROM WFL No Right Ankle/Foot ROM WFL Yes Ankle and Foot ROM Limitations Comments left ankle df -5, right 5 PT-OP-M Strength Start: 05/28/19 08:11 Freq: Status: Active Protocol: Document 05/29/19 14:30 [facility] (Rec: 05/30/19 14:24 [facility] [id number]) Hip Strength Hip Manual Muscle Testing Left Flexion (L2) 3- Fair- Extension (S1) 2 Poor Abduction 2+ Poor+ External Rotation 3- Fair- Internal Rotation 3+ Fair+ Right Flexion (L2) 4 Good Extension (S1) 4- Good- Abduction 4 Good External Rotation 3+ Fair+ Internal Rotation 4- Good- Knee Strength Knee Manual Muscle Testing Left Flexion (S2) 3 Fair Extension (L3) 3+ Fair+ Right Flexion (S2) 4+ Good+ Extension (L3) 4+ Good+ Ankle/Foot Strength Ankle and Foot Manual Muscle Testing Left Dorsiflexion (L4) 0 Zero Plantarflexion (S1) 0 Zero Right Dorsiflexion (L4) 4+ Good+ Plantarflexion (S1) 4+ Good+ PT-OP-Q Treatments Start: 05/28/19 08:11 Freq: Status: Active Protocol: Document 06/28/19 09:45 [facility] (Rec: 06/30/19 15:12 [facility] [id number]) Cardio Equipment Recumbent Elliptical (Biodex) Duration (Minutes) 8 Resistance 2 Other support for LUE on hand rail, L knee support into adduction to neutral Gym Equipment Shuttle Recovery Unilateral Squats Resistance 37 right, 25 left Shuttle Recovery Platform Stable Reps/Time verbal and manual cues for left LE alignment Bilateral Squats Resistance 50 Shuttle Recovery Platform Stable Reps/Time 10x2 Therapeutic Exercises Standing Exercises f/b/side stepping Equipment Used rail Reps/Minutes 10 ft x2 laps each direction Comments cued L LE parallel side stepping, foward/backward knee flexion sit to stands Reps/Minutes x10 Gait Training Gait Activity 1 Description level surface Device Used quad cane Level of Assistance CGA, manual facil left LE Distance/Duration 50'x2 Treatment Focus increased weight shift to left Le PT-OP-S Aquatic Treatment Start: 05/28/19 08:11 Freq: Status: Active Protocol: Document 07/02/19 12:30 NILAY (Rec: 07/02/19 15:26 [id number]) Aquatics Treatment Pool Entry/Exit Pool Entry/Exit Method Lift Assistance Minimal Assistance,Verbal Cues Water Walking Marching Water Level Chest Level Walking Equipment Ankle Weight- 2.5#, sm float on LUE, sm [place] float Level of Assistance Contact Guard Assistance, Minimal Assistance,Verbal Cues Sideways Water Level Chest Level Walking Equipment Ankle Weight- 2.5#, sm float on LUE Level of Assistance Contact Guard Assistance, Minimal Assistance,Verbal Cues Forwards Water Level Chest Level Walking Equipment Ankle Weight- 2.5#, sm float on LUE Level of Assistance Contact Guard Assistance, Minimal Assistance,Verbal Cues Lower Extremity Exercises hydrobike Reps/Duration 15 min Comments seated on smiley face weight shifting staggard stance Details HH on wall Body Position Standing Water Level Waist Level Equipment Ankle Weight- 2.5#, sm float on LUE Comments assist with bracing left knee SLS LLE Details HH on wall Body Position Standing Water Level Waist Level Equipment Ankle Weight- 2.5#, sm float on LUE Reps/Duration 1i72-17 sec Comments assist with bracing LLE, weight [id number]-side Details at wall Body Position Standing Water Level Waist Level Equipment Ankle Weight- 2.5#, sm float on LUE Comments assist with bracing left knee Upper Extremity Exercises HABD/HADD with long BB Body Position Standing Water Level Chest Level Reps/Duration 12x Comments assist with left hand on BB push pull Details back against wall Body Position Standing Water Level Waist Level Equipment lg BB Reps/Duration 10x PT-OP-T Assessment and Plan Start: 05/28/19 08:11 Freq: Status: Active Protocol: Document 07/02/19 12:30 NILAY (Rec: 07/02/19 15:26 LJ [id number]) Physical Therapy Assessment Rehab Potential Rehabilitation Potential Fair Evaluation Complexity Number of Personal Factors/Comorbidities 3 or More Number of Body Systems Impaired 4 or More Clinical Presentation at Evaluation Evolving Impairments Impairments Balance,Functional Mobility, Gait,Strength Goals Four Impairment requires assistance with bed mobility and transfers Short Term Goal (STG) Patient will be able to perform all bed mobility independently to improve her functional independence. STG Duration 07/10/19 [facility] Goal (LTG) Patient will be able to perform a floor transfer with SB to min assist LTG Duration 08/27/19 Three Impairment weakness left UE and LE s/p CVA Lay Brother Goal (LTG) Improve functional strength in left LE, as evidenced by ability to move from sit > < stand without use of UE's. Request OT for left UE rehab. LTG Duration 08/27/19 Two Impairment balance dysfunction with high risk for falls Lay Brother Goal (LTG) Improve balance as evidenced by improvement in Tinnetti balance and gait score to low fall risk range to improve safety in the home and community. LTG Duration 08/27/19 One Impairment requires morro-walker for gait, limited to household Lay Brother Goal (LTG) Patient able to ambulate with least restrictive device for functional community distances to improve her functional independence and quality of life. LTG Duration 08/27/19 Assessment Summary Assessment Focus of treatment on walking activities without floatation. She was wearing wendy soft ankle brace which helped her maintain left ankle in neutral alignment without inverting. Once pt was on the bike she was able to maintain balance and pedaling speed with assist on LLE to prevent hip ER. Pt also sat on sm smiley face to make seat more comfortable. Physical Therapy Plan Frequency and Duration Frequency of Treatment 2x/Week Duration of Treatment 12 wks Plan of Care Start Date 05/28/19 Plan of Care End Date 08/27/19 Therapeutic Interventions Therapeutic Interventions Aquatic Therapy,Balance Training,Gait Training,Home Exercise Program,Neuromuscular Re-education,Orthotic/ Prosthetic Management,Patient/ Caregiver Education,Self-Care/ Home Management,Taping, Therapeutic Activities, Therapeutic Exercises Modalities Cold Pack/Ice Massage,Hot Packs Next Visit Focus/Plan Next Note Type Treatment Note Next Visit Plan Progress gait activities and strengthing. Add Bad Ragaz exercises in supine for trunk stabilization.
--- NOTE | 2019-07-04 11:21 | PT.OTN ---
Addendum entered and electronically signed by Paola Farfan, SPEECH PATHOLOGY ASSISTANT 07/04/19 12:04: Pt also stated she responded reallly well to the bike in the pool, thinks its loosening up the tightness in her legs. Original Note: Current Diagnoses Hemiplegia, unspecified affecting unspecified side (07/04/19) Difficulty in walking, not elsewhere classified (07/04/19) Weakness (07/04/19) History of falling (07/04/19) Physical Therapy Treatment Note PT-OP-A Visit Information Start: 05/28/19 08:11 Freq: Status: Active Protocol: Document 07/04/19 10:37 SP (Rec: 07/04/19 11:44 SP [id number]) Out-Patient Physical Therapy Visit Information Visit Information Visit Type Treatment Note Visit Start Time 10:37 Visit Stop Time 11:21 Total Visit Minutes 44 Visit Number 9 Number of SPEECH PATHOLOGY ASSISTANT Visits 2 PT-OP-B Current Condition Start: 05/28/19 08:11 Freq: Status: Active Protocol: Document 05/28/19 14:30 SAK (Rec: 05/29/19 16:53 SAK [id number]) Current Condition History of Current Condition Onset Date 2014 Current Complaints weakness, requires assistance with all mobility and household tasks History of Current Condition Reports that she suffered a stroke in 2014 after surgery for brain aneurysm. CVA caused weakness on the left side of her body, gait and balance difficulty, seizures. Prior Treatments and Tests prior PT, OT Future Testing and Treatments Planned uncertain of when has next physician appointment Treatment Goals Patient/Caregiver Goals Improve her strength, gait, balance, be trained in a floor transfer. Prior Functional Status Baseline Function- ADL's Independent Baseline Function- Mobility Independent Baseline Function- Gait was independent with gait without device Baseline Function- Work/School was able to work without limitations Baseline Function- Recreation/Hobbies no limitations Current Functional Impairments (Reported) Functional Limitations- ADL's assistance with all ADL's Functional Limitations- Mobility/Gait requires the use of morro- walker and is limited to household distances Functional Limitations- Work/School unable Functional Limitations- Recreation/ unable Hobbies Personal Factors Other Personal Factors That May Effect anxiety, depression, poor Therapy/Recovery memory PT-OP-C Subjective Start: 05/28/19 08:11 Freq: Status: Active Protocol: Document 07/04/19 10:37 SP (Rec: 07/04/19 11:44 SP [id number]) OP-PT Subjective Patient Comments Patient Comments Pt reported saw Dr Valdez and was for dry needling in [place] and maybe shld recently and felt so good after treatment, almost normal, no tightnessin LB but after woke up today, the tightness was back. She stated Dr Valdez stated might not stay for a longtime the first tx. Pt has more dryneedling appts every 2 weeks. PT-OP-D Balance Start: 05/28/19 08:11 Freq: Status: Active Protocol: Document 05/29/19 14:30 [facility] (Rec: 05/30/19 14:24 [facility] [id number]) OP-PT Balance Assessment Sitting Balance Static Sitting Balance Ability Good Dynamic Sitting Balance Ability Fair Standing Balance Static Standing Balance Ability Good Dynamic Standing Balance Ability Fair Device Used hemiwalker right Tinetti Balance Assessment Sitting Balance Sitting Balance Steady, safe Arising from Chair Attempts to Arise Able, requires >1 attempt Standing Balance Immediate Standing Balance Steady with support Standing Balance Steady, wide stance Nudged Response Begins to fall Standing with Eyes Closed Unsteady Turning Step Pattern Turning 360 Degrees Discontinuous steps Stability Turning 360 Degrees Unsteady, grabs/staggers Sitting Down Sitting Down Uses arms or unsteady Gait and Step Initiation of Gait Hesitancy, mult. attempts Right Foot Step Length Does not pass stance ft. Right Foot Step Height Does not clear floor Left Foot Step Length Does not pass stance foot Left Foot Step Height Does not clear floor Step Description Step Symmetry Step length not equal Gait Description Path Description Mild/moderate deviation Trunk Description Marked sway or uses aide Walking Stance Heels apart Scoring and Interpretation Tinetti Composite Score (points) 6 Interpretation of Scores High risk for falls(< 19) Herrera Fall Scale Copyright Permission PT-OP-G Mobility & Gait Start: 05/28/19 08:11 Freq: Status: Active Protocol: Document 05/29/19 14:30 [facility] (Rec: 05/30/19 14:24 [facility] [id number]) OP Mobility Evaluation Bed Mobility Rolling min assist Supine to and from Sit min assist Transfers Sit to Stand uses right UE Bed to Chair Transfers uses right UE Floor Transfers unable Functional Movements Squats uses primarily right LE OP Gait Assessment Gait Gait Assistance Required: Standby Assistance Distance (Feet) 20 Assistive Devices Assistive Device Morro Walker Orthotic/Prosthetic Devices or Brace: Yes Gait Deviations General Gait Pattern Decreased Stride Length, Decreased Feet Clearance, Lateral Trunk Lean,Wide Based Gait Factors Limiting Gait Function Factors Limiting Gait Function Abnormal Tonal Influences, Decreased Strength PT-OP-H Neuro Start: 05/28/19 08:11 Freq: Status: Active Protocol: Document 05/29/19 14:30 [facility] (Rec: 05/30/19 14:24 [facility] [id number]) Sensation Evaluation Gross Sensation Gross Sensation Left UE Impaired,Left LE Impaired Sensation Description Paresthesia,Numbness Coordination Evaluation Lower Extremity Tests Left Alternate Heel to Knee; Heel to Toe Test Moderate Impairment Heel on Boles Test Moderate Impairment Foot Tapping Test Moderate Impairment PT-OP-K Range of Motion Start: 05/28/19 08:11 Freq: Status: Active Protocol: Document 05/29/19 14:30 [facility] (Rec: 05/30/19 14:24 [facility] [id number]) Hip Goniometric Range of Motion Hip jake Hip ROM WFL Yes Knee Goniometric Range of Motion Knee jake Knee ROM WFL Yes Ankle and Foot Goniometric Range of Motion Ankle and Foot Left Active Ankle/Foot ROM WFL No Right Ankle/Foot ROM WFL Yes Ankle and Foot ROM Limitations Comments left ankle df -5, right 5 PT-OP-M Strength Start: 05/28/19 08:11 Freq: Status: Active Protocol: Document 05/29/19 14:30 [facility] (Rec: 05/30/19 14:24 [facility] [id number]) Hip Strength Hip Manual Muscle Testing Left Flexion (L2) 3- Fair- Extension (S1) 2 Poor Abduction 2+ Poor+ External Rotation 3- Fair- Internal Rotation 3+ Fair+ Right Flexion (L2) 4 Good Extension (S1) 4- Good- Abduction 4 Good External Rotation 3+ Fair+ Internal Rotation 4- Good- Knee Strength Knee Manual Muscle Testing Left Flexion (S2) 3 Fair Extension (L3) 3+ Fair+ Right Flexion (S2) 4+ Good+ Extension (L3) 4+ Good+ Ankle/Foot Strength Ankle and Foot Manual Muscle Testing Left Dorsiflexion (L4) 0 Zero Plantarflexion (S1) 0 Zero Right Dorsiflexion (L4) 4+ Good+ Plantarflexion (S1) 4+ Good+ PT-OP-Q Treatments Start: 05/28/19 08:11 Freq: Status: Active Protocol: Document 07/04/19 10:37 SP (Rec: 07/04/19 11:45 SP [id number]) Cardio Equipment Recumbent Elliptical (Biodex) Duration (Minutes) 8 Resistance 2 Other cued L knee more adduction control provded Min A 1/2 time when tired. Therapeutic Exercises Sitting Exercises sitting balance Sitting Exercise Name f/b/side wt shift, reaching out side of MIKA across body RUE Equipment Used [place] ball, next to rail (PRN R UE support not needed) Reps/Minutes 5 min Comments CGA- Roberto of 1 person Standing Exercises f/b/side stepping Equipment Used quad cane Reps/Minutes 10 ft x1 laps each direction Comments cued L LE parallel side stepping L knee flexion Gait Training Gait Activity 1 Description level surface Device Used quad cane Level of Assistance SBA with cuing for left LE increased IR during heel strike Distance/Duration 90' Treatment Focus increased weight shift to left Le stair mgt Comments 6 steps R HR ascend 4 step, step over step gait, gait belt and CGA provided by caregiver and 4- 6 step descend step to gait patterning Manual Therapy Treatment Soft Tissue Mobilization ITB, peroneal Body Location R ITB, R peroneal Mobilization Type Cross-Friction Intensity/Depth Moderate Body Position Sitting Comments good tolerance, it makes it feel less tight, much better. PT-OP-S Aquatic Treatment Start: 05/28/19 08:11 Freq: Status: Active Protocol: Document 07/02/19 12:30 NILAY (Rec: 07/02/19 15:26 LJ [id number]) Aquatics Treatment Pool Entry/Exit Pool Entry/Exit Method Lift Assistance Minimal Assistance,Verbal Cues Water Walking Marching Water Level Chest Level Walking Equipment Ankle Weight- 2.5#, sm float on LUE, sm ho-chunk float Level of Assistance Contact Guard Assistance, Minimal Assistance,Verbal Cues Sideways Water Level Chest Level Walking Equipment Ankle Weight- 2.5#, sm float on LUE Level of Assistance Contact Guard Assistance, Minimal Assistance,Verbal Cues Forwards Water Level Chest Level Walking Equipment Ankle Weight- 2.5#, sm float on LUE Level of Assistance Contact Guard Assistance, Minimal Assistance,Verbal Cues Lower Extremity Exercises hydrobike Reps/Duration 15 min Comments seated on smiley face weight shifting staggard stance Details HH on wall Body Position Standing Water Level Waist Level Equipment Ankle Weight- 2.5#, sm float on LUE Comments assist with bracing left knee SLS LLE Details HH on wall Body Position Standing Water Level Waist Level Equipment Ankle Weight- 2.5#, sm float on LUE Reps/Duration [id number] sec Comments assist with bracing LLE, weight [id number] Details at wall Body Position Standing Water Level Waist Level Equipment Ankle Weight- 2.5#, sm float on LUE Comments assist with bracing left knee Upper Extremity Exercises HABD/HADD with long BB Body Position Standing Water Level Chest Level Reps/Duration 12x Comments assist with left hand on BB push pull Details back against wall Body Position Standing Water Level Waist Level Equipment lg BB Reps/Duration 10x PT-OP-T Assessment and Plan Start: 05/28/19 08:11 Freq: Status: Active Protocol: Document 07/04/19 10:37 SP (Rec: 07/04/19 11:44 SP [id number]) Physical Therapy Assessment Goals Four Impairment requires assistance with bed mobility and transfers Short Term Goal (STG) Patient will be able to perform all bed mobility independently to improve her functional independence. STG Duration 07/10/19 Adult Protective Caseworker Goal (LTG) Patient will be able to perform a floor transfer with SB to min assist LTG Duration 08/27/19 Three Impairment weakness left UE and LE s/p CVA Fci Goal (LTG) Improve functional strength in left LE, as evidenced by ability to move from sit > < stand without use of UE's. Request OT for left UE rehab. LTG Duration 08/27/19 Two Impairment balance dysfunction with high risk for falls Adult Protective Caseworker Goal (LTG) Improve balance as evidenced by improvement in Tinnetti balance and gait score to low fall risk range to improve safety in the home and community. LTG Duration 08/27/19 One Impairment requires morro-walker for gait, limited to household Adult Protective Caseworker Goal (LTG) Patient able to ambulate with least restrictive device for functional community distances to improve her functional independence and quality of life. LTG Duration 08/27/19 Assessment Summary Assessment Pt complete stair mgt with caregiver,cued provided for CG body position ascend/descend with good follow through and assist repostioning L foot ( decrease ER) and cuing for L quad facilitation for extension during ascend step with RUE heavy support on RHR, stable step over step gait ( demonstrated hand occasional forearm WB on rail), step to patterning descending LLE leading with good slow pacing control CGA by caregiver with continued assist maintain L foot neutral position. Added seated on green [place] ball wt shifting and reacing no R UE support required but stated R quad tired by end of 4 min. CGA stand<>sit on [place] ball with R rail self support. Continued side stepping using quad cane then ambulating to front approx 90ft SBA and cuing for LLE neutral ( increase hip IR for proper foot positioning). Stable using quad cane step to gait, CGA initially then SBA and noted decreased R UE WB on quad cane, stable. Physical Therapy Plan Frequency and Duration Frequency of Treatment 2x/Week Duration of Treatment 12 wks Plan of Care Start Date 05/28/19 Plan of Care End Date 08/27/19 Therapeutic Interventions Therapeutic Interventions Aquatic Therapy,Balance Training,Gait Training,Home Exercise Program,Neuromuscular Re-education,Orthotic/ Prosthetic Management,Patient/ Caregiver Education,Self-Care/ Home Management,Taping, Therapeutic Activities, Therapeutic Exercises Modalities Cold Pack/Ice Massage,Hot Packs Next Visit Focus/Plan Next Note Type Treatment Note Next Visit Plan Progress gait activities and strengthing. Add Bad Ragaz exercises in supine for trunk stabilization.
--- NOTE | 2019-07-09 14:47 | PT.OTN ---
Current Diagnoses Hemiplegia, unspecified affecting unspecified side (07/09/19) Difficulty in walking, not elsewhere classified (07/09/19) Weakness (07/09/19) History of falling (07/09/19) Physical Therapy Treatment Note PT-OP-A Visit Information Start: 05/28/19 08:11 Freq: Status: Active Protocol: Document 07/09/19 10:15 LJ (Rec: 07/09/19 14:46 LJ [id number]) Out-Patient Physical Therapy Visit Information Visit Information Visit Type Aquatic Treatment Note Visit Start Time 10:15 Visit Stop Time 11:00 Total Visit Minutes 45 Visit Number 10 Number of STAFF NURSE Visits 3 PT-OP-B Current Condition Start: 05/28/19 08:11 Freq: Status: Active Protocol: Document 05/28/19 14:30 SAK (Rec: 05/29/19 16:53 SAK [id number]) Current Condition History of Current Condition Onset Date 2014 Current Complaints weakness, requires assistance with all mobility and household tasks History of Current Condition Reports that she suffered a stroke in 2014 after surgery for brain aneurysm. CVA caused weakness on the left side of her body, gait and balance difficulty, seizures. Prior Treatments and Tests prior PT, OT Future Testing and Treatments Planned uncertain of when has next physician appointment Treatment Goals Patient/Caregiver Goals Improve her strength, gait, balance, be trained in a floor transfer. Prior Functional Status Baseline Function- ADL's Independent Baseline Function- Mobility Independent Baseline Function- Gait was independent with gait without device Baseline Function- Work/School was able to work without limitations Baseline Function- Recreation/Hobbies no limitations Current Functional Impairments (Reported) Functional Limitations- ADL's assistance with all ADL's Functional Limitations- Mobility/Gait requires the use of morro- walker and is limited to household distances Functional Limitations- Work/School unable Functional Limitations- Recreation/ unable Hobbies Personal Factors Other Personal Factors That May Effect anxiety, depression, poor Therapy/Recovery memory PT-OP-C Subjective Start: 05/28/19 08:11 Freq: Status: Active Protocol: Document 07/09/19 10:15 LJ (Rec: 07/09/19 14:46 LJ [id number]) OP-PT Subjective Patient Comments Patient Comments Pt walked around house for several hours without wearing her brace and she was able to keep her left foot from inverting most of the time. Also, complaining of right wrist pain PT-OP-D Balance Start: 05/28/19 08:11 Freq: Status: Active Protocol: Document 05/29/19 14:30 [facility] (Rec: 05/30/19 14:24 [facility] [id number]) OP-PT Balance Assessment Sitting Balance Static Sitting Balance Ability Good Dynamic Sitting Balance Ability Fair Standing Balance Static Standing Balance Ability Good Dynamic Standing Balance Ability Fair Device Used hemiwalker right Tinetti Balance Assessment Sitting Balance Sitting Balance Steady, safe Arising from Chair Attempts to Arise Able, requires >1 attempt Standing Balance Immediate Standing Balance Steady with support Standing Balance Steady, wide stance Nudged Response Begins to fall Standing with Eyes Closed Unsteady Turning Step Pattern Turning 360 Degrees Discontinuous steps Stability Turning 360 Degrees Unsteady, grabs/staggers Sitting Down Sitting Down Uses arms or unsteady Gait and Step Initiation of Gait Hesitancy, mult. attempts Right Foot Step Length Does not pass stance ft. Right Foot Step Height Does not clear floor Left Foot Step Length Does not pass stance foot Left Foot Step Height Does not clear floor Step Description Step Symmetry Step length not equal Gait Description Path Description Mild/moderate deviation Trunk Description Marked sway or uses aide Walking Stance Heels apart Scoring and Interpretation Tinetti Composite Score (points) 6 Interpretation of Scores High risk for falls(< 19) Herrera Fall Scale Copyright Permission PT-OP-G Mobility & Gait Start: 05/28/19 08:11 Freq: Status: Active Protocol: Document 05/29/19 14:30 [facility] (Rec: 05/30/19 14:24 [facility] [id number]) OP Mobility Evaluation Bed Mobility Rolling min assist Supine to and from Sit min assist Transfers Sit to Stand uses right UE Bed to Chair Transfers uses right UE Floor Transfers unable Functional Movements Squats uses primarily right LE OP Gait Assessment Gait Gait Assistance Required: Standby Assistance Distance (Feet) 20 Assistive Devices Assistive Device Morro Walker Orthotic/Prosthetic Devices or Brace: Yes Gait Deviations General Gait Pattern Decreased Stride Length, Decreased Feet Clearance, Lateral Trunk Lean,Wide Based Gait Factors Limiting Gait Function Factors Limiting Gait Function Abnormal Tonal Influences, Decreased Strength PT-OP-H Neuro Start: 05/28/19 08:11 Freq: Status: Active Protocol: Document 05/29/19 14:30 [facility] (Rec: 05/30/19 14:24 [facility] [id number]) Sensation Evaluation Gross Sensation Gross Sensation Left UE Impaired,Left LE Impaired Sensation Description Paresthesia,Numbness Coordination Evaluation Lower Extremity Tests Left Alternate Heel to Knee; Heel to Toe Test Moderate Impairment Heel on Boles Test Moderate Impairment Foot Tapping Test Moderate Impairment PT-OP-K Range of Motion Start: 05/28/19 08:11 Freq: Status: Active Protocol: Document 05/29/19 14:30 [facility] (Rec: 05/30/19 14:24 [facility] [id number]) Hip Goniometric Range of Motion Hip jake Hip ROM WFL Yes Knee Goniometric Range of Motion Knee jake Knee ROM WFL Yes Ankle and Foot Goniometric Range of Motion Ankle and Foot Left Active Ankle/Foot ROM WFL No Right Ankle/Foot ROM WFL Yes Ankle and Foot ROM Limitations Comments left ankle df -5, right 5 PT-OP-M Strength Start: 05/28/19 08:11 Freq: Status: Active Protocol: Document 05/29/19 14:30 [facility] (Rec: 05/30/19 14:24 [facility] [id number]) Hip Strength Hip Manual Muscle Testing Left Flexion (L2) 3- Fair- Extension (S1) 2 Poor Abduction 2+ Poor+ External Rotation 3- Fair- Internal Rotation 3+ Fair+ Right Flexion (L2) 4 Good Extension (S1) 4- Good- Abduction 4 Good External Rotation 3+ Fair+ Internal Rotation 4- Good- Knee Strength Knee Manual Muscle Testing Left Flexion (S2) 3 Fair Extension (L3) 3+ Fair+ Right Flexion (S2) 4+ Good+ Extension (L3) 4+ Good+ Ankle/Foot Strength Ankle and Foot Manual Muscle Testing Left Dorsiflexion (L4) 0 Zero Plantarflexion (S1) 0 Zero Right Dorsiflexion (L4) 4+ Good+ Plantarflexion (S1) 4+ Good+ PT-OP-Q Treatments Start: 05/28/19 08:11 Freq: Status: Active Protocol: Document 07/04/19 10:37 SP (Rec: 07/04/19 11:45 SP [id number]) Cardio Equipment Recumbent Elliptical (Biodex) Duration (Minutes) 8 Resistance 2 Other cued L knee more adduction control provded Min A 1/2 time when tired. Therapeutic Exercises Sitting Exercises sitting balance Sitting Exercise Name f/b/side wt shift, reaching out side of MIKA across body RUE Equipment Used kenyan ball, next to rail (PRN R UE support not needed) Reps/Minutes 5 min Comments CGA- Roberto of 1 person Standing Exercises f/b/side stepping Equipment Used quad cane Reps/Minutes 10 ft x1 laps each direction Comments cued L LE parallel side stepping L knee flexion Gait Training Gait Activity 1 Description level surface Device Used quad cane Level of Assistance SBA with cuing for left LE increased IR during heel strike Distance/Duration 90' Treatment Focus increased weight shift to left Le stair mgt Comments 6 steps R HR ascend 4 step, step over step gait, gait belt and CGA provided by caregiver and 4- 6 step descend step to gait patterning Manual Therapy Treatment Soft Tissue Mobilization ITB, peroneal Body Location R ITB, R peroneal Mobilization Type Cross-Friction Intensity/Depth Moderate Body Position Sitting Comments good tolerance, it makes it feel less tight, much better. PT-OP-S Aquatic Treatment Start: 05/28/19 08:11 Freq: Status: Active Protocol: Document 07/09/19 10:15 NILAY (Rec: 07/09/19 14:46 NILAY [id number]) Aquatics Treatment Pool Entry/Exit Pool Entry/Exit Method Lift Assistance Minimal Assistance Water Walking Marching Water Level Chest Level Walking Equipment Ankle Weight- 2.5#, sm float on LUE, sm [place] float Level of Assistance Contact Guard Assistance, Minimal Assistance,Verbal Cues Comments right hand holding noodle Sideways Water Level Chest Level Walking Equipment Ankle Weight- 2.5#, sm float on LUE Level of Assistance Contact Guard Assistance, Minimal Assistance,Verbal Cues Comments right hand holding noodle Forwards Water Level Chest Level Walking Equipment Ankle Weight- 2.5#, sm float on LUE Level of Assistance Contact Guard Assistance, Minimal Assistance,Verbal Cues Comments right hand holding noodle Lower Extremity Exercises hydrobike Reps/Duration 10 min Comments seated on smiley face SLS LLE Details HH on wall Body Position Standing Water Level Waist Level Equipment Ankle Weight- 2.5#, sm float on LUE Reps/Duration [id number] sec Comments assist with bracing LLE, weight [id number]-[id number]-[id number]-side Details at wall Body Position Standing Water Level Waist Level Equipment Ankle Weight- 2.5#, sm float on LUE Comments assist with bracing left knee Upper Extremity Exercises HABD/HADD with long BB Body Position Standing Water Level Chest Level Reps/Duration 12x Comments assist with left hand on BB push pull Details back against wall Body Position Standing Water Level Waist Level Equipment lg BB Reps/Duration 10x PT-OP-T Assessment and Plan Start: 05/28/19 08:11 Freq: Status: Active Protocol: Document 07/09/19 10:15 LJ (Rec: 07/09/19 14:46 LJ [id number]) Physical Therapy Assessment Rehab Potential Rehabilitation Potential Fair Evaluation Complexity Number of Personal Factors/Comorbidities 3 or More Number of Body Systems Impaired 4 or More Clinical Presentation at Evaluation Evolving Impairments Impairments Balance,Functional Mobility, Gait,Strength Goals Four Impairment requires assistance with bed mobility and transfers Short Term Goal (STG) Patient will be able to perform all bed mobility independently to improve her functional independence. STG Duration 07/10/19 [facility] Goal (LTG) Patient will be able to perform a floor transfer with SB to min assist LTG Duration 08/27/19 Three Impairment weakness left UE and LE s/p CVA Watermelon Inspector Goal (LTG) Improve functional strength in left LE, as evidenced by ability to move from sit > < stand without use of UE's. Request OT for left UE rehab. LTG Duration 08/27/19 Two Impairment balance dysfunction with high risk for falls [facility] Goal (LTG) Improve balance as evidenced by improvement in Tinnetti balance and gait score to low fall risk range to improve safety in the home and community. LTG Duration 08/27/19 One Impairment requires morro-walker for gait, limited to household Watermelon Inspector Goal (LTG) Patient able to ambulate with least restrictive device for functional community distances to improve her functional independence and quality of life. LTG Duration 08/27/19 Assessment Summary Assessment Pt able to walk with CGA and use of sm noodle in right hand for balance assist. She was able to keep her left foot from inverting during walking exercises. Requires bracing with SLS on LLE Physical Therapy Plan Frequency and Duration Frequency of Treatment 2x/Week Duration of Treatment 12 wks Plan of Care Start Date 05/28/19 Plan of Care End Date 08/27/19 Therapeutic Interventions Therapeutic Interventions Aquatic Therapy,Balance Training,Gait Training,Home Exercise Program,Neuromuscular Re-education,Orthotic/ Prosthetic Management,Patient/ Caregiver Education,Self-Care/ Home Management,Taping, Therapeutic Activities, Therapeutic Exercises Modalities Cold Pack/Ice Massage,Hot Packs Next Visit Focus/Plan Next Note Type Treatment Note Next Visit Plan Progress gait activities and strengthening. Progress to deep water for cardio conditioning
--- NOTE | 2019-07-11 11:45 | PT.OTN ---
Current Diagnoses Hemiplegia, unspecified affecting unspecified side (07/11/19) Difficulty in walking, not elsewhere classified (07/11/19) Weakness (07/11/19) History of falling (07/11/19) Physical Therapy Treatment Note PT-OP-A Visit Information Start: 05/28/19 08:11 Freq: Status: Active Protocol: Document 07/11/19 11:45 SAK (Rec: 07/12/19 16:21 SAK [id number]) Out-Patient Physical Therapy Visit Information Visit Information Visit Type Aquatic Treatment Note Visit Start Time 11:45 Visit Stop Time 12:30 Total Visit Minutes 45 Visit Number 11 Number of VACUUM CLEANER OPERATOR Visits 4 PT-OP-B Current Condition Start: 05/28/19 08:11 Freq: Status: Active Protocol: Document 05/28/19 14:30 SAK (Rec: 05/29/19 16:53 SAK [id number]) Current Condition History of Current Condition Onset Date 2014 Current Complaints weakness, requires assistance with all mobility and household tasks History of Current Condition Reports that she suffered a stroke in 2014 after surgery for brain aneurysm. CVA caused weakness on the left side of her body, gait and balance difficulty, seizures. Prior Treatments and Tests prior PT, OT Future Testing and Treatments Planned uncertain of when has next physician appointment Treatment Goals Patient/Caregiver Goals Improve her strength, gait, balance, be trained in a floor transfer. Prior Functional Status Baseline Function- ADL's Independent Baseline Function- Mobility Independent Baseline Function- Gait was independent with gait without device Baseline Function- Work/School was able to work without limitations Baseline Function- Recreation/Hobbies no limitations Current Functional Impairments (Reported) Functional Limitations- ADL's assistance with all ADL's Functional Limitations- Mobility/Gait requires the use of morro- walker and is limited to household distances Functional Limitations- Work/School unable Functional Limitations- Recreation/ unable Hobbies Personal Factors Other Personal Factors That May Effect anxiety, depression, poor Therapy/Recovery memory PT-OP-C Subjective Start: 05/28/19 08:11 Freq: Status: Active Protocol: Document 07/11/19 11:45 SAK (Rec: 07/12/19 16:21 SAK [id number]) OP-PT Subjective Patient Comments Patient Comments No new c/o. Looking forward to more dry needling to decrease her pain and muscle tightness. PT-OP-D Balance Start: 05/28/19 08:11 Freq: Status: Active Protocol: Document 05/29/19 14:30 [facility] (Rec: 05/30/19 14:24 [facility] [id number]) OP-PT Balance Assessment Sitting Balance Static Sitting Balance Ability Good Dynamic Sitting Balance Ability Fair Standing Balance Static Standing Balance Ability Good Dynamic Standing Balance Ability Fair Device Used hemiwalker right Tinetti Balance Assessment Sitting Balance Sitting Balance Steady, safe Arising from Chair Attempts to Arise Able, requires >1 attempt Standing Balance Immediate Standing Balance Steady with support Standing Balance Steady, wide stance Nudged Response Begins to fall Standing with Eyes Closed Unsteady Turning Step Pattern Turning 360 Degrees Discontinuous steps Stability Turning 360 Degrees Unsteady, grabs/staggers Sitting Down Sitting Down Uses arms or unsteady Gait and Step Initiation of Gait Hesitancy, mult. attempts Right Foot Step Length Does not pass stance ft. Right Foot Step Height Does not clear floor Left Foot Step Length Does not pass stance foot Left Foot Step Height Does not clear floor Step Description Step Symmetry Step length not equal Gait Description Path Description Mild/moderate deviation Trunk Description Marked sway or uses aide Walking Stance Heels apart Scoring and Interpretation Tinetti Composite Score (points) 6 Interpretation of Scores High risk for falls(< 19) Herrera Fall Scale Copyright Permission PT-OP-G Mobility & Gait Start: 05/28/19 08:11 Freq: Status: Active Protocol: Document 05/29/19 14:30 [facility] (Rec: 05/30/19 14:24 [facility] [id number]) OP Mobility Evaluation Bed Mobility Rolling min assist Supine to and from Sit min assist Transfers Sit to Stand uses right UE Bed to Chair Transfers uses right UE Floor Transfers unable Functional Movements Squats uses primarily right LE OP Gait Assessment Gait Gait Assistance Required: Standby Assistance Distance (Feet) 20 Assistive Devices Assistive Device Morro Walker Orthotic/Prosthetic Devices or Brace: Yes Gait Deviations General Gait Pattern Decreased Stride Length, Decreased Feet Clearance, Lateral Trunk Lean,Wide Based Gait Factors Limiting Gait Function Factors Limiting Gait Function Abnormal Tonal Influences, Decreased Strength PT-OP-H Neuro Start: 05/28/19 08:11 Freq: Status: Active Protocol: Document 05/29/19 14:30 [facility] (Rec: 05/30/19 14:24 [facility] [id number]) Sensation Evaluation Gross Sensation Gross Sensation Left UE Impaired,Left LE Impaired Sensation Description Paresthesia,Numbness Coordination Evaluation Lower Extremity Tests Left Alternate Heel to Knee; Heel to Toe Test Moderate Impairment Heel on Boles Test Moderate Impairment Foot Tapping Test Moderate Impairment PT-OP-K Range of Motion Start: 05/28/19 08:11 Freq: Status: Active Protocol: Document 05/29/19 14:30 [facility] (Rec: 05/30/19 14:24 [facility] [id number]) Hip Goniometric Range of Motion Hip jake Hip ROM WFL Yes Knee Goniometric Range of Motion Knee jake Knee ROM WFL Yes Ankle and Foot Goniometric Range of Motion Ankle and Foot Left Active Ankle/Foot ROM WFL No Right Ankle/Foot ROM WFL Yes Ankle and Foot ROM Limitations Comments left ankle df -5, right 5 PT-OP-M Strength Start: 05/28/19 08:11 Freq: Status: Active Protocol: Document 05/29/19 14:30 [facility] (Rec: 05/30/19 14:24 [facility] [id number]) Hip Strength Hip Manual Muscle Testing Left Flexion (L2) 3- Fair- Extension (S1) 2 Poor Abduction 2+ Poor+ External Rotation 3- Fair- Internal Rotation 3+ Fair+ Right Flexion (L2) 4 Good Extension (S1) 4- Good- Abduction 4 Good External Rotation 3+ Fair+ Internal Rotation 4- Good- Knee Strength Knee Manual Muscle Testing Left Flexion (S2) 3 Fair Extension (L3) 3+ Fair+ Right Flexion (S2) 4+ Good+ Extension (L3) 4+ Good+ Ankle/Foot Strength Ankle and Foot Manual Muscle Testing Left Dorsiflexion (L4) 0 Zero Plantarflexion (S1) 0 Zero Right Dorsiflexion (L4) 4+ Good+ Plantarflexion (S1) 4+ Good+ PT-OP-Q Treatments Start: 05/28/19 08:11 Freq: Status: Active Protocol: Document 07/04/19 10:37 SP (Rec: 07/04/19 11:45 SP [id number]) Cardio Equipment Recumbent Elliptical (BiodInkomerce) Duration (Minutes) 8 Resistance 2 Other cued L knee more adduction control provded Min A 1/2 time when tired. Therapeutic Exercises Sitting Exercises sitting balance Sitting Exercise Name f/b/side wt shift, reaching out side of MIKA across body RUE Equipment Used trinidadian ball, next to rail (PRN R UE support not needed) Reps/Minutes 5 min Comments CGA- Roberto of 1 person Standing Exercises f/b/side stepping Equipment Used quad cane Reps/Minutes 10 ft x1 laps each direction Comments cued L LE parallel side stepping L knee flexion Gait Training Gait Activity 1 Description level surface Device Used quad cane Level of Assistance SBA with cuing for left LE increased IR during heel strike Distance/Duration 90' Treatment Focus increased weight shift to left Le stair mgt Comments 6 steps R HR ascend 4 step, step over step gait, gait belt and CGA provided by caregiver and 4- 6 step descend step to gait patterning Manual Therapy Treatment Soft Tissue Mobilization ITB, peroneal Body Location R ITB, R peroneal Mobilization Type Cross-Friction Intensity/Depth Moderate Body Position Sitting Comments good tolerance, it makes it feel less tight, much better. PT-OP-S Aquatic Treatment Start: 05/28/19 08:11 Freq: Status: Active Protocol: Document 07/11/19 11:45 [facility] (Rec: 07/12/19 16:21 [facility] [id number]) Aquatics Treatment Pool Entry/Exit Pool Entry/Exit Method Lift Assistance Minimal Assistance Water Walking Marching Water Level Chest Level Walking Equipment Ankle Weight- 2.5#, sm float on LUE, sm [place] float Level of Assistance Contact Guard Assistance, Minimal Assistance,Verbal Cues Comments right hand holding noodle Sideways Water Level Chest Level Walking Equipment Ankle Weight- 2.5#, sm float on LUE Level of Assistance Contact Guard Assistance, Minimal Assistance,Verbal Cues Comments right hand holding noodle Forwards Water Level Chest Level Walking Equipment Ankle Weight- 2.5#, sm float on LUE Level of Assistance Contact Guard Assistance, Minimal Assistance,Verbal Cues Comments right hand holding noodle Lower Extremity Exercises SLS LLE Details HH on wall Body Position Standing Water Level Waist Level Equipment Ankle Weight- 2.5#, sm float on LUE Reps/Duration [id number] sec Comments assist with bracing LLE, weight [id number] Details at wall Body Position Standing Water Level Waist Level Equipment Ankle Weight- 2.5#, sm float on LUE Comments assist with bracing left knee Upper Extremity Exercises HABD/HADD with long BB Body Position Standing Water Level Chest Level Reps/Duration 12x Comments assist with left hand on BB push pull Details back against wall Body Position Standing Water Level Waist Level Equipment lg BB Reps/Duration 10x Balance standing Equipment 4 box, right LE on box, left LE on floor [place] Activities [place] Activities Bicycle,Running,Sit Kicks Other Activities flutter kick Equipment sm float LUE, #2.5 LLE, sm [place] float Comments CGA + Roberto for vertical alignment and directioning. ( no weight in supine) Manual Techniques [place] hip ab/ad with manual resistance supine PT-OP-T Assessment and Plan Start: 05/28/19 08:11 Freq: Status: Active Protocol: Document 07/11/19 11:45 SAK (Rec: 07/12/19 16:21 SAK [id number]) Physical Therapy Assessment Goals Four Impairment requires assistance with bed mobility and transfers Short Term Goal (STG) Patient will be able to perform all bed mobility independently to improve her functional independence. STG Duration 07/10/19 [facility] Goal (LTG) Patient will be able to perform a floor transfer with SB to min assist LTG Duration 08/27/19 Three Impairment weakness left UE and LE s/p CVA [facility] Goal (LTG) Improve functional strength in left LE, as evidenced by ability to move from sit > < stand without use of UE's. Request OT for left UE rehab. LTG Duration 08/27/19 Two Impairment balance dysfunction with high risk for falls [facility] Goal (LTG) Improve balance as evidenced by improvement in Tinnetti balance and gait score to low fall risk range to improve safety in the home and community. LTG Duration 08/27/19 One Impairment requires morro-walker for gait, limited to household [facility] Goal (LTG) Patient able to ambulate with least restrictive device for functional community distances to improve her functional independence and quality of life. LTG Duration 08/27/19 Assessment Summary Assessment Had more difficulty keeping left foot from inverting, need to try aircast splint or AFO in water. Moderate verbal and manual cues for use of left LE with deep water activities. Physical Therapy Plan Frequency and Duration Frequency of Treatment 2x/Week Duration of Treatment 12 wks Plan of Care Start Date 05/28/19 Plan of Care End Date 08/27/19 Therapeutic Interventions Therapeutic Interventions Aquatic Therapy,Balance Training,Gait Training,Home Exercise Program,Neuromuscular Re-education,Orthotic/ Prosthetic Management,Patient/ Caregiver Education,Self-Care/ Home Management,Taping, Therapeutic Activities, Therapeutic Exercises Modalities Cold Pack/Ice Massage,Hot Packs Next Visit Focus/Plan Next Note Type Treatment Note Next Visit Plan Progress gait activities and strengthing. Progress to deep water for cardio conditioning
--- NOTE | 2019-07-12 16:21 | PT.OTN ---
Current Diagnoses Hemiplegia, unspecified affecting unspecified side (07/11/19) Difficulty in walking, not elsewhere classified (07/11/19) Weakness (07/11/19) History of falling (07/11/19) Physical Therapy Treatment Note PT-OP-A Visit Information Start: 05/28/19 08:11 Freq: Status: Active Protocol: Document 07/11/19 11:45 SAK (Rec: 07/12/19 16:21 SAK [id number]) Out-Patient Physical Therapy Visit Information Visit Information Visit Type Aquatic Treatment Note Visit Start Time 11:45 Visit Stop Time 12:30 Total Visit Minutes 45 Visit Number 11 Number of DIRECTOR OUTCOMES Visits 4 PT-OP-B Current Condition Start: 05/28/19 08:11 Freq: Status: Active Protocol: Document 05/28/19 14:30 SAK (Rec: 05/29/19 16:53 SAK [id number]) Current Condition History of Current Condition Onset Date 2014 Current Complaints weakness, requires assistance with all mobility and household tasks History of Current Condition Reports that she suffered a stroke in 2014 after surgery for brain aneurysm. CVA caused weakness on the left side of her body, gait and balance difficulty, seizures. Prior Treatments and Tests prior PT, OT Future Testing and Treatments Planned uncertain of when has next physician appointment Treatment Goals Patient/Caregiver Goals Improve her strength, gait, balance, be trained in a floor transfer. Prior Functional Status Baseline Function- ADL's Independent Baseline Function- Mobility Independent Baseline Function- Gait was independent with gait without device Baseline Function- Work/School was able to work without limitations Baseline Function- Recreation/Hobbies no limitations Current Functional Impairments (Reported) Functional Limitations- ADL's assistance with all ADL's Functional Limitations- Mobility/Gait requires the use of morro- walker and is limited to household distances Functional Limitations- Work/School unable Functional Limitations- Recreation/ unable Hobbies Personal Factors Other Personal Factors That May Effect anxiety, depression, poor Therapy/Recovery memory PT-OP-C Subjective Start: 05/28/19 08:11 Freq: Status: Active Protocol: Document 07/11/19 11:45 SAK (Rec: 07/12/19 16:21 SAK [id number]) OP-PT Subjective Patient Comments Patient Comments No new c/o. Looking forward to more dry needling to decrease her pain and muscle tightness. PT-OP-D Balance Start: 05/28/19 08:11 Freq: Status: Active Protocol: Document 05/29/19 14:30 [facility] (Rec: 05/30/19 14:24 [facility] [id number]) OP-PT Balance Assessment Sitting Balance Static Sitting Balance Ability Good Dynamic Sitting Balance Ability Fair Standing Balance Static Standing Balance Ability Good Dynamic Standing Balance Ability Fair Device Used hemiwalker right Tinetti Balance Assessment Sitting Balance Sitting Balance Steady, safe Arising from Chair Attempts to Arise Able, requires >1 attempt Standing Balance Immediate Standing Balance Steady with support Standing Balance Steady, wide stance Nudged Response Begins to fall Standing with Eyes Closed Unsteady Turning Step Pattern Turning 360 Degrees Discontinuous steps Stability Turning 360 Degrees Unsteady, grabs/staggers Sitting Down Sitting Down Uses arms or unsteady Gait and Step Initiation of Gait Hesitancy, mult. attempts Right Foot Step Length Does not pass stance ft. Right Foot Step Height Does not clear floor Left Foot Step Length Does not pass stance foot Left Foot Step Height Does not clear floor Step Description Step Symmetry Step length not equal Gait Description Path Description Mild/moderate deviation Trunk Description Marked sway or uses aide Walking Stance Heels apart Scoring and Interpretation Tinetti Composite Score (points) 6 Interpretation of Scores High risk for falls(< 19) Herrera Fall Scale Copyright Permission PT-OP-G Mobility & Gait Start: 05/28/19 08:11 Freq: Status: Active Protocol: Document 05/29/19 14:30 [facility] (Rec: 05/30/19 14:24 [facility] [id number]) OP Mobility Evaluation Bed Mobility Rolling min assist Supine to and from Sit min assist Transfers Sit to Stand uses right UE Bed to Chair Transfers uses right UE Floor Transfers unable Functional Movements Squats uses primarily right LE OP Gait Assessment Gait Gait Assistance Required: Standby Assistance Distance (Feet) 20 Assistive Devices Assistive Device Morro Walker Orthotic/Prosthetic Devices or Brace: Yes Gait Deviations General Gait Pattern Decreased Stride Length, Decreased Feet Clearance, Lateral Trunk Lean,Wide Based Gait Factors Limiting Gait Function Factors Limiting Gait Function Abnormal Tonal Influences, Decreased Strength PT-OP-H Neuro Start: 05/28/19 08:11 Freq: Status: Active Protocol: Document 05/29/19 14:30 [facility] (Rec: 05/30/19 14:24 [facility] [id number]) Sensation Evaluation Gross Sensation Gross Sensation Left UE Impaired,Left LE Impaired Sensation Description Paresthesia,Numbness Coordination Evaluation Lower Extremity Tests Left Alternate Heel to Knee; Heel to Toe Test Moderate Impairment Heel on Boles Test Moderate Impairment Foot Tapping Test Moderate Impairment PT-OP-K Range of Motion Start: 05/28/19 08:11 Freq: Status: Active Protocol: Document 05/29/19 14:30 [facility] (Rec: 05/30/19 14:24 [facility] [id number]) Hip Goniometric Range of Motion Hip jake Hip ROM WFL Yes Knee Goniometric Range of Motion Knee jake Knee ROM WFL Yes Ankle and Foot Goniometric Range of Motion Ankle and Foot Left Active Ankle/Foot ROM WFL No Right Ankle/Foot ROM WFL Yes Ankle and Foot ROM Limitations Comments left ankle df -5, right 5 PT-OP-M Strength Start: 05/28/19 08:11 Freq: Status: Active Protocol: Document 05/29/19 14:30 [facility] (Rec: 05/30/19 14:24 [facility] [id number]) Hip Strength Hip Manual Muscle Testing Left Flexion (L2) 3- Fair- Extension (S1) 2 Poor Abduction 2+ Poor+ External Rotation 3- Fair- Internal Rotation 3+ Fair+ Right Flexion (L2) 4 Good Extension (S1) 4- Good- Abduction 4 Good External Rotation 3+ Fair+ Internal Rotation 4- Good- Knee Strength Knee Manual Muscle Testing Left Flexion (S2) 3 Fair Extension (L3) 3+ Fair+ Right Flexion (S2) 4+ Good+ Extension (L3) 4+ Good+ Ankle/Foot Strength Ankle and Foot Manual Muscle Testing Left Dorsiflexion (L4) 0 Zero Plantarflexion (S1) 0 Zero Right Dorsiflexion (L4) 4+ Good+ Plantarflexion (S1) 4+ Good+ PT-OP-Q Treatments Start: 05/28/19 08:11 Freq: Status: Active Protocol: Document 07/04/19 10:37 SP (Rec: 07/04/19 11:45 SP [id number]) Cardio Equipment Recumbent Elliptical (BiodCerteon) Duration (Minutes) 8 Resistance 2 Other cued L knee more adduction control provded Min A 1/2 time when tired. Therapeutic Exercises Sitting Exercises sitting balance Sitting Exercise Name f/b/side wt shift, reaching out side of MIKA across body RUE Equipment Used [place] ball, next to rail (PRN R UE support not needed) Reps/Minutes 5 min Comments CGA- Roberto of 1 person Standing Exercises f/b/side stepping Equipment Used quad cane Reps/Minutes 10 ft x1 laps each direction Comments cued L LE parallel side stepping L knee flexion Gait Training Gait Activity 1 Description level surface Device Used quad cane Level of Assistance SBA with cuing for left LE increased IR during heel strike Distance/Duration 90' Treatment Focus increased weight shift to left Le stair mgt Comments 6 steps R HR ascend 4 step, step over step gait, gait belt and CGA provided by caregiver and 4- 6 step descend step to gait patterning Manual Therapy Treatment Soft Tissue Mobilization ITB, peroneal Body Location R ITB, R peroneal Mobilization Type Cross-Friction Intensity/Depth Moderate Body Position Sitting Comments good tolerance, it makes it feel less tight, much better. PT-OP-S Aquatic Treatment Start: 05/28/19 08:11 Freq: Status: Active Protocol: Document 07/11/19 11:45 [facility] (Rec: 07/12/19 16:21 [facility] [id number]) Aquatics Treatment Pool Entry/Exit Pool Entry/Exit Method Lift Assistance Minimal Assistance Water Walking Marching Water Level Chest Level Walking Equipment Ankle Weight- 2.5#, sm float on LUE, sm picayune float Level of Assistance Contact Guard Assistance, Minimal Assistance,Verbal Cues Comments right hand holding noodle Sideways Water Level Chest Level Walking Equipment Ankle Weight- 2.5#, sm float on LUE Level of Assistance Contact Guard Assistance, Minimal Assistance,Verbal Cues Comments right hand holding noodle Forwards Water Level Chest Level Walking Equipment Ankle Weight- 2.5#, sm float on LUE Level of Assistance Contact Guard Assistance, Minimal Assistance,Verbal Cues Comments right hand holding noodle Lower Extremity Exercises SLS LLE Details HH on wall Body Position Standing Water Level Waist Level Equipment Ankle Weight- 2.5#, sm float on LUE Reps/Duration [id number] sec Comments assist with bracing LLE, weight [id number] Details at wall Body Position Standing Water Level Waist Level Equipment Ankle Weight- 2.5#, sm float on LUE Comments assist with bracing left knee Upper Extremity Exercises HABD/HADD with long BB Body Position Standing Water Level Chest Level Reps/Duration 12x Comments assist with left hand on BB push pull Details back against wall Body Position Standing Water Level Waist Level Equipment lg BB Reps/Duration 10x Balance standing Equipment 4 box, right LE on box, left LE on floor Denison Activities Denison Activities Bicycle,Running,Sit Kicks Other Activities flutter kick Equipment sm float LUE, #2.5 LLE, sm picayune float Comments CGA + Roberto for vertical alignment and directioning. ( no weight in supine) Manual Techniques [place]az hip ab/ad with manual resistance supine PT-OP-T Assessment and Plan Start: 05/28/19 08:11 Freq: Status: Active Protocol: Document 07/11/19 11:45 SAK (Rec: 07/12/19 16:21 SAK [id number]) Physical Therapy Assessment Goals Four Impairment requires assistance with bed mobility and transfers Short Term Goal (STG) Patient will be able to perform all bed mobility independently to improve her functional independence. STG Duration 07/10/19 Care Home Goal (LTG) Patient will be able to perform a floor transfer with SB to min assist LTG Duration 08/27/19 Three Impairment weakness left UE and LE s/p CVA Care Home Goal (LTG) Improve functional strength in left LE, as evidenced by ability to move from sit > < stand without use of UE's. Request OT for left UE rehab. LTG Duration 08/27/19 Two Impairment balance dysfunction with high risk for falls Care Home Goal (LTG) Improve balance as evidenced by improvement in Tinnetti balance and gait score to low fall risk range to improve safety in the home and community. LTG Duration 08/27/19 One Impairment requires morro-walker for gait, limited to household Care Home Goal (LTG) Patient able to ambulate with least restrictive device for functional community distances to improve her functional independence and quality of life. LTG Duration 08/27/19 Assessment Summary Assessment Had more difficulty keeping left foot from inverting, need to try aircast splint or AFO in water. Moderate verbal and manual cues for use of left LE with deep water activities. Physical Therapy Plan Frequency and Duration Frequency of Treatment 2x/Week Duration of Treatment 12 wks Plan of Care Start Date 05/28/19 Plan of Care End Date 08/27/19 Therapeutic Interventions Therapeutic Interventions Aquatic Therapy,Balance Training,Gait Training,Home Exercise Program,Neuromuscular Re-education,Orthotic/ Prosthetic Management,Patient/ Caregiver Education,Self-Care/ Home Management,Taping, Therapeutic Activities, Therapeutic Exercises Modalities Cold Pack/Ice Massage,Hot Packs Next Visit Focus/Plan Next Note Type Treatment Note Next Visit Plan Progress gait activities and strengthing. Progress to deep water for cardio conditioning
--- NOTE | 2019-07-13 15:03 | PT.OTN ---
Current Diagnoses Hemiplegia, unspecified affecting unspecified side (07/13/19) Difficulty in walking, not elsewhere classified (07/13/19) Weakness (07/13/19) History of falling (07/13/19) Physical Therapy Treatment Note PT-OP-A Visit Information Start: 05/28/19 08:11 Freq: Status: Active Protocol: Document 07/13/19 10:15 LJ (Rec: 07/13/19 15:03 LJ [id number]) Out-Patient Physical Therapy Visit Information Visit Information Visit Type Aquatic Treatment Note Visit Start Time 10:15 Visit Stop Time 11:00 Total Visit Minutes 45 Visit Number 12 Number of THERMODYNAMICS PROFESSOR Visits 1 PT-OP-B Current Condition Start: 05/28/19 08:11 Freq: Status: Active Protocol: Document 05/28/19 14:30 SAK (Rec: 05/29/19 16:53 SAK [id number]) Current Condition History of Current Condition Onset Date 2014 Current Complaints weakness, requires assistance with all mobility and household tasks History of Current Condition Reports that she suffered a stroke in 2014 after surgery for brain aneurysm. CVA caused weakness on the left side of her body, gait and balance difficulty, seizures. Prior Treatments and Tests prior PT, OT Future Testing and Treatments Planned uncertain of when has next physician appointment Treatment Goals Patient/Caregiver Goals Improve her strength, gait, balance, be trained in a floor transfer. Prior Functional Status Baseline Function- ADL's Independent Baseline Function- Mobility Independent Baseline Function- Gait was independent with gait without device Baseline Function- Work/School was able to work without limitations Baseline Function- Recreation/Hobbies no limitations Current Functional Impairments (Reported) Functional Limitations- ADL's assistance with all ADL's Functional Limitations- Mobility/Gait requires the use of morro- walker and is limited to household distances Functional Limitations- Work/School unable Functional Limitations- Recreation/ unable Hobbies Personal Factors Other Personal Factors That May Effect anxiety, depression, poor Therapy/Recovery memory PT-OP-C Subjective Start: 05/28/19 08:11 Freq: Status: Active Protocol: Document 07/13/19 10:15 LJ (Rec: 07/13/19 15:03 LJ [id number]) OP-PT Subjective Patient Comments Patient Comments Stated she was sore after last pool session but thought it was a good sore PT-OP-D Balance Start: 05/28/19 08:11 Freq: Status: Active Protocol: Document 05/29/19 14:30 [facility] (Rec: 05/30/19 14:24 [facility] [id number]) OP-PT Balance Assessment Sitting Balance Static Sitting Balance Ability Good Dynamic Sitting Balance Ability Fair Standing Balance Static Standing Balance Ability Good Dynamic Standing Balance Ability Fair Device Used hemiwalker right Tinetti Balance Assessment Sitting Balance Sitting Balance Steady, safe Arising from Chair Attempts to Arise Able, requires >1 attempt Standing Balance Immediate Standing Balance Steady with support Standing Balance Steady, wide stance Nudged Response Begins to fall Standing with Eyes Closed Unsteady Turning Step Pattern Turning 360 Degrees Discontinuous steps Stability Turning 360 Degrees Unsteady, grabs/staggers Sitting Down Sitting Down Uses arms or unsteady Gait and Step Initiation of Gait Hesitancy, mult. attempts Right Foot Step Length Does not pass stance ft. Right Foot Step Height Does not clear floor Left Foot Step Length Does not pass stance foot Left Foot Step Height Does not clear floor Step Description Step Symmetry Step length not equal Gait Description Path Description Mild/moderate deviation Trunk Description Marked sway or uses aide Walking Stance Heels apart Scoring and Interpretation Tinetti Composite Score (points) 6 Interpretation of Scores High risk for falls(< 19) Herrera Fall Scale Copyright Permission PT-OP-G Mobility & Gait Start: 05/28/19 08:11 Freq: Status: Active Protocol: Document 05/29/19 14:30 [facility] (Rec: 05/30/19 14:24 [facility] [id number]) OP Mobility Evaluation Bed Mobility Rolling min assist Supine to and from Sit min assist Transfers Sit to Stand uses right UE Bed to Chair Transfers uses right UE Floor Transfers unable Functional Movements Squats uses primarily right LE OP Gait Assessment Gait Gait Assistance Required: Standby Assistance Distance (Feet) 20 Assistive Devices Assistive Device Morro Walker Orthotic/Prosthetic Devices or Brace: Yes Gait Deviations General Gait Pattern Decreased Stride Length, Decreased Feet Clearance, Lateral Trunk Lean,Wide Based Gait Factors Limiting Gait Function Factors Limiting Gait Function Abnormal Tonal Influences, Decreased Strength PT-OP-H Neuro Start: 05/28/19 08:11 Freq: Status: Active Protocol: Document 05/29/19 14:30 [facility] (Rec: 05/30/19 14:24 [facility] [id number]) Sensation Evaluation Gross Sensation Gross Sensation Left UE Impaired,Left LE Impaired Sensation Description Paresthesia,Numbness Coordination Evaluation Lower Extremity Tests Left Alternate Heel to Knee; Heel to Toe Test Moderate Impairment Heel on Boles Test Moderate Impairment Foot Tapping Test Moderate Impairment PT-OP-K Range of Motion Start: 05/28/19 08:11 Freq: Status: Active Protocol: Document 05/29/19 14:30 [facility] (Rec: 05/30/19 14:24 SAK [id number]) Hip Goniometric Range of Motion Hip jake Hip ROM WFL Yes Knee Goniometric Range of Motion Knee jake Knee ROM WFL Yes Ankle and Foot Goniometric Range of Motion Ankle and Foot Left Active Ankle/Foot ROM WFL No Right Ankle/Foot ROM WFL Yes Ankle and Foot ROM Limitations Comments left ankle df -5, right 5 PT-OP-M Strength Start: 05/28/19 08:11 Freq: Status: Active Protocol: Document 05/29/19 14:30 [facility] (Rec: 05/30/19 14:24 [facility] [id number]) Hip Strength Hip Manual Muscle Testing Left Flexion (L2) 3- Fair- Extension (S1) 2 Poor Abduction 2+ Poor+ External Rotation 3- Fair- Internal Rotation 3+ Fair+ Right Flexion (L2) 4 Good Extension (S1) 4- Good- Abduction 4 Good External Rotation 3+ Fair+ Internal Rotation 4- Good- Knee Strength Knee Manual Muscle Testing Left Flexion (S2) 3 Fair Extension (L3) 3+ Fair+ Right Flexion (S2) 4+ Good+ Extension (L3) 4+ Good+ Ankle/Foot Strength Ankle and Foot Manual Muscle Testing Left Dorsiflexion (L4) 0 Zero Plantarflexion (S1) 0 Zero Right Dorsiflexion (L4) 4+ Good+ Plantarflexion (S1) 4+ Good+ PT-OP-Q Treatments Start: 05/28/19 08:11 Freq: Status: Active Protocol: Document 07/04/19 10:37 SP (Rec: 07/04/19 11:45 SP [id number]) Cardio Equipment Recumbent Elliptical (Biodex) Duration (Minutes) 8 Resistance 2 Other cued L knee more adduction control provded Min A 1/2 time when tired. Therapeutic Exercises Sitting Exercises sitting balance Sitting Exercise Name f/b/side wt shift, reaching out side of MIKA across body RUE Equipment Used iraqi ball, next to rail (PRN R UE support not needed) Reps/Minutes 5 min Comments CGA- Roberto of 1 person Standing Exercises f/b/side stepping Equipment Used quad cane Reps/Minutes 10 ft x1 laps each direction Comments cued L LE parallel side stepping L knee flexion Gait Training Gait Activity 1 Description level surface Device Used quad cane Level of Assistance SBA with cuing for left LE increased IR during heel strike Distance/Duration 90' Treatment Focus increased weight shift to left Le stair mgt Comments 6 steps R HR ascend 4 step, step over step gait, gait belt and CGA provided by caregiver and 4- 6 step descend step to gait patterning Manual Therapy Treatment Soft Tissue Mobilization ITB, peroneal Body Location R ITB, R peroneal Mobilization Type Cross-Friction Intensity/Depth Moderate Body Position Sitting Comments good tolerance, it makes it feel less tight, much better. PT-OP-S Aquatic Treatment Start: 05/28/19 08:11 Freq: Status: Active Protocol: Document 07/13/19 10:15 NILAY (Rec: 07/13/19 15:03 NILAY [id number]) Aquatics Treatment Pool Entry/Exit Pool Entry/Exit Method Lift Assistance Minimal Assistance Water Walking Marching Water Level Chest Level Walking Equipment Ankle Weight- 2.5#, sm float on LUE, sm [place] float Level of Assistance Contact Guard Assistance, Minimal Assistance,Verbal Cues Sideways Water Level Chest Level Walking Equipment Ankle Weight- 2.5#, sm float on LUE Level of Assistance Contact Guard Assistance, Minimal Assistance,Verbal Cues Forwards Water Level Chest Level Walking Equipment Ankle Weight- 2.5#, sm float on LUE Level of Assistance Contact Guard Assistance, Minimal Assistance,Verbal Cues Lower Extremity Exercises pushing off wall with uni and bilateral LEs Details supine with feet against wall Body Position Supine Equipment neck and hip floats Reps/Duration 10 bilateral and 10 LLE Comments stabilizing at left knee to prevent lateral rotation left hip flex/ext Details standing on box with right foot Body Position Standing Water Level Waist Level Equipment Ankle Weight- 2.5# Reps/Duration 10 Comments manual assist for maintaining knee extension weight shifting staggard stance Details HH on wall Body Position Standing Water Level Waist Level Equipment Ankle Weight- 2.5#, sm float on LUE Comments assist with bracing left knee SLS LLE Details HH on wall Body Position Standing Water Level Waist Level Equipment Ankle Weight- 2.5#, sm float on LUE Reps/Duration [id number] sec Comments assist with bracing LLE, weight [id number] Details at wall Body Position Standing Water Level Waist Level Equipment Ankle Weight- 2.5#, sm float on LUE Comments assist with bracing left knee Upper Extremity Exercises pull downs Details standing at wall Water Level Chest Level Equipment BBs Reps/Duration 10 Comments assist with LUE HABD/HADD with long BB Body Position Standing Water Level Chest Level Reps/Duration 12x Comments assist with left hand on BB push pull Details back against wall Body Position Standing Water Level Waist Level Equipment lg BB Reps/Duration 10x Spinal Exercises Bad Ragaz Details trunk stabilization Body Position Supine Equipment Neck Float, hip float, arm float, LE floats Reps/Duration 2 min Manual Techniques Bad Ragaz hip ab/ad with manual resistance supine PT-OP-T Assessment and Plan Start: 05/28/19 08:11 Freq: Status: Active Protocol: Document 07/13/19 10:15 NILAY (Rec: 07/13/19 15:03 NILAY [id number]) Physical Therapy Assessment Rehab Potential Rehabilitation Potential Fair Evaluation Complexity Number of Personal Factors/Comorbidities 3 or More Number of Body Systems Impaired 4 or More Clinical Presentation at Evaluation Evolving Impairments Impairments Balance,Functional Mobility, Gait,Strength Goals Four Impairment requires assistance with bed mobility and transfers Short Term Goal (STG) Patient will be able to perform all bed mobility independently to improve her functional independence. STG Duration 07/10/19 Extruding Department Supervisor Goal (LTG) Patient will be able to perform a floor transfer with SB to min assist LTG Duration 08/27/19 Three Impairment weakness left UE and LE s/p CVA Intermediate Goal (LTG) Improve functional strength in left LE, as evidenced by ability to move from sit > < stand without use of UE's. Request OT for left UE rehab. LTG Duration 08/27/19 Two Impairment balance dysfunction with high risk for falls Intermediate Goal (LTG) Improve balance as evidenced by improvement in Tinnetti balance and gait score to low fall risk range to improve safety in the home and community. LTG Duration 08/27/19 One Impairment requires morro-walker for gait, limited to household Intermediate Goal (LTG) Patient able to ambulate with least restrictive device for functional community distances to improve her functional independence and quality of life. LTG Duration 08/27/19 Assessment Summary Assessment Left foot inverted during SLS and required bracing but during most ambulation exercises foot stayed flat. Pt refused aircast splint stating she wanted to see what she could do. Pt able to walk in shallow water w/o noodle but required redirecting and CGA for occasional LOB. Physical Therapy Plan Frequency and Duration Frequency of Treatment 2x/Week Duration of Treatment 12 wks Plan of Care Start Date 05/28/19 Plan of Care End Date 08/27/19 Therapeutic Interventions Therapeutic Interventions Aquatic Therapy,Balance Training,Gait Training,Home Exercise Program,Neuromuscular Re-education,Orthotic/ Prosthetic Management,Patient/ Caregiver Education,Self-Care/ Home Management,Taping, Therapeutic Activities, Therapeutic Exercises Modalities Cold Pack/Ice Massage,Hot Packs Next Visit Focus/Plan Next Note Type Treatment Note Next Visit Plan Progress gait activities and strengthening. Progress to deep water for cardio conditioning
--- NOTE | 2019-07-18 10:30 | PT.OTN ---
Current Diagnoses Hemiplegia, unspecified affecting unspecified side (07/18/19) Difficulty in walking, not elsewhere classified (07/18/19) Weakness (07/18/19) History of falling (07/18/19) Physical Therapy Treatment Note PT-OP-A Visit Information Start: 05/28/19 08:11 Freq: Status: Active Protocol: Document 07/18/19 09:50 SP (Rec: 07/18/19 10:34 SP [id number]) Out-Patient Physical Therapy Visit Information Visit Information Visit Type Treatment Note Visit Start Time 09:50 Visit Stop Time 10:30 Total Visit Minutes 40 Visit Number 13 Number of VINE PRUNER Visits 2 PT-OP-B Current Condition Start: 05/28/19 08:11 Freq: Status: Active Protocol: Document 05/28/19 14:30 SAK (Rec: 05/29/19 16:53 SAK [id number]) Current Condition History of Current Condition Onset Date 2014 Current Complaints weakness, requires assistance with all mobility and household tasks History of Current Condition Reports that she suffered a stroke in 2014 after surgery for brain aneurysm. CVA caused weakness on the left side of her body, gait and balance difficulty, seizures. Prior Treatments and Tests prior PT, OT Future Testing and Treatments Planned uncertain of when has next physician appointment Treatment Goals Patient/Caregiver Goals Improve her strength, gait, balance, be trained in a floor transfer. Prior Functional Status Baseline Function- ADL's Independent Baseline Function- Mobility Independent Baseline Function- Gait was independent with gait without device Baseline Function- Work/School was able to work without limitations Baseline Function- Recreation/Hobbies no limitations Current Functional Impairments (Reported) Functional Limitations- ADL's assistance with all ADL's Functional Limitations- Mobility/Gait requires the use of morro- walker and is limited to household distances Functional Limitations- Work/School unable Functional Limitations- Recreation/ unable Hobbies Personal Factors Other Personal Factors That May Effect anxiety, depression, poor Therapy/Recovery memory PT-OP-C Subjective Start: 05/28/19 08:11 Freq: Status: Active Protocol: Document 07/18/19 09:50 SP (Rec: 07/18/19 10:34 SP [id number]) OP-PT Subjective Patient Comments Patient Comments Pt stated saw physician yesterday and putting referral for OT and speech. Pt stated compliant with HEP instructed. 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 Elevator hasn't been working lately either. PT-OP-D Balance Start: 05/28/19 08:11 Freq: Status: Active Protocol: Document 05/29/19 14:30 [facility] (Rec: 05/30/19 14:24 [facility] [id number]) OP-PT Balance Assessment Sitting Balance Static Sitting Balance Ability Good Dynamic Sitting Balance Ability Fair Standing Balance Static Standing Balance Ability Good Dynamic Standing Balance Ability Fair Device Used hemiwalker right Tinetti Balance Assessment Sitting Balance Sitting Balance Steady, safe Arising from Chair Attempts to Arise Able, requires >1 attempt Standing Balance Immediate Standing Balance Steady with support Standing Balance Steady, wide stance Nudged Response Begins to fall Standing with Eyes Closed Unsteady Turning Step Pattern Turning 360 Degrees Discontinuous steps Stability Turning 360 Degrees Unsteady, grabs/staggers Sitting Down Sitting Down Uses arms or unsteady Gait and Step Initiation of Gait Hesitancy, mult. attempts Right Foot Step Length Does not pass stance ft. Right Foot Step Height Does not clear floor Left Foot Step Length Does not pass stance foot Left Foot Step Height Does not clear floor Step Description Step Symmetry Step length not equal Gait Description Path Description Mild/moderate deviation Trunk Description Marked sway or uses aide Walking Stance Heels apart Scoring and Interpretation Tinetti Composite Score (points) 6 Interpretation of Scores High risk for falls(< 19) Herrera Fall Scale Copyright Permission PT-OP-G Mobility & Gait Start: 05/28/19 08:11 Freq: Status: Active Protocol: Document 05/29/19 14:30 [facility] (Rec: 05/30/19 14:24 [facility] [id number]) OP Mobility Evaluation Bed Mobility Rolling min assist Supine to and from Sit min assist Transfers Sit to Stand uses right UE Bed to Chair Transfers uses right UE Floor Transfers unable Functional Movements Squats uses primarily right LE OP Gait Assessment Gait Gait Assistance Required: Standby Assistance Distance (Feet) 20 Assistive Devices Assistive Device Morro Walker Orthotic/Prosthetic Devices or Brace: Yes Gait Deviations General Gait Pattern Decreased Stride Length, Decreased Feet Clearance, Lateral Trunk Lean,Wide Based Gait Factors Limiting Gait Function Factors Limiting Gait Function Abnormal Tonal Influences, Decreased Strength PT-OP-H Neuro Start: 05/28/19 08:11 Freq: Status: Active Protocol: Document 05/29/19 14:30 [facility] (Rec: 05/30/19 14:24 [facility] [id number]) Sensation Evaluation Gross Sensation Gross Sensation Left UE Impaired,Left LE Impaired Sensation Description Paresthesia,Numbness Coordination Evaluation Lower Extremity Tests Left Alternate Heel to Knee; Heel to Toe Test Moderate Impairment Heel on Boles Test Moderate Impairment Foot Tapping Test Moderate Impairment PT-OP-K Range of Motion Start: 05/28/19 08:11 Freq: Status: Active Protocol: Document 05/29/19 14:30 [facility] (Rec: 05/30/19 14:24 [facility] [id number]) Hip Goniometric Range of Motion Hip jake Hip ROM WFL Yes Knee Goniometric Range of Motion Knee jake Knee ROM WFL Yes Ankle and Foot Goniometric Range of Motion Ankle and Foot Left Active Ankle/Foot ROM WFL No Right Ankle/Foot ROM WFL Yes Ankle and Foot ROM Limitations Comments left ankle df -5, right 5 PT-OP-M Strength Start: 05/28/19 08:11 Freq: Status: Active Protocol: Document 05/29/19 14:30 [facility] (Rec: 05/30/19 14:24 [facility] [id number]) Hip Strength Hip Manual Muscle Testing Left Flexion (L2) 3- Fair- Extension (S1) 2 Poor Abduction 2+ Poor+ External Rotation 3- Fair- Internal Rotation 3+ Fair+ Right Flexion (L2) 4 Good Extension (S1) 4- Good- Abduction 4 Good External Rotation 3+ Fair+ Internal Rotation 4- Good- Knee Strength Knee Manual Muscle Testing Left Flexion (S2) 3 Fair Extension (L3) 3+ Fair+ Right Flexion (S2) 4+ Good+ Extension (L3) 4+ Good+ Ankle/Foot Strength Ankle and Foot Manual Muscle Testing Left Dorsiflexion (L4) 0 Zero Plantarflexion (S1) 0 Zero Right Dorsiflexion (L4) 4+ Good+ Plantarflexion (S1) 4+ Good+ PT-OP-Q Treatments Start: 05/28/19 08:11 Freq: Status: Active Protocol: Document 07/18/19 09:50 SP (Rec: 07/18/19 10:34 SP [id number]) Therapeutic Exercises Standing Exercises step ups Standing Exercise Name RHR up/down min A for LLE IR for proper knee alignment Equipment Used R HR Reps/Minutes x5 lead each LE Comments CGA, improved L knee flexion. f/b/side stepping Standing Exercise Name side stepping at rail Equipment Used rail Reps/Minutes 10 ft x1 laps each direction Comments improvement in L foot IR parrell sit to stands Reps/Minutes 7 reps in 40 sec Comments intermittent contact with chair arm Gait Training Gait Activity 1 Description level surface Device Used quad cane x30 ft CGA- SBA, SPC 75 ft Distance/Duration 30 ft quad cane, 75 ft SPC Treatment Focus occasional cuing for left LE increased IR during heel strike, improved toda PT-OP-S Aquatic Treatment Start: 05/28/19 08:11 Freq: Status: Active Protocol: Document 07/13/19 10:15 NILAY (Rec: 07/13/19 15:03 NILAY [id number]) Aquatics Treatment Pool Entry/Exit Pool Entry/Exit Method Lift Assistance Minimal Assistance Water Walking Marching Water Level Chest Level Walking Equipment Ankle Weight- 2.5#, sm float on LUE, sm lumbee float Level of Assistance Contact Guard Assistance, Minimal Assistance,Verbal Cues Sideways Water Level Chest Level Walking Equipment Ankle Weight- 2.5#, sm float on LUE Level of Assistance Contact Guard Assistance, Minimal Assistance,Verbal Cues Forwards Water Level Chest Level Walking Equipment Ankle Weight- 2.5#, sm float on LUE Level of Assistance Contact Guard Assistance, Minimal Assistance,Verbal Cues Lower Extremity Exercises pushing off wall with uni and bilateral LEs Details supine with feet against wall Body Position Supine Equipment neck and hip floats Reps/Duration 10 bilateral and 10 LLE Comments stabilizing at left knee to prevent lateral rotation left hip flex/ext Details standing on box with right foot Body Position Standing Water Level Waist Level Equipment Ankle Weight- 2.5# Reps/Duration 10 Comments manual assist for maintaining knee extension weight shifting staggard stance Details HH on wall Body Position Standing Water Level Waist Level Equipment Ankle Weight- 2.5#, sm float on LUE Comments assist with bracing left knee SLS LLE Details HH on wall Body Position Standing Water Level Waist Level Equipment Ankle Weight- 2.5#, sm float on LUE Reps/Duration [id number] sec Comments assist with bracing LLE, weight [id number] Details at wall Body Position Standing Water Level Waist Level Equipment Ankle Weight- 2.5#, sm float on LUE Comments assist with bracing left knee Upper Extremity Exercises pull downs Details standing at wall Water Level Chest Level Equipment BBs Reps/Duration 10 Comments assist with LUE HABD/HADD with long BB Body Position Standing Water Level Chest Level Reps/Duration 12x Comments assist with left hand on BB push pull Details back against wall Body Position Standing Water Level Waist Level Equipment lg BB Reps/Duration 10x Spinal Exercises Bad Ragaz Details trunk stabilization Body Position Supine Equipment Neck Float, hip float, arm float, LE floats Reps/Duration 2 min Manual Techniques Bad Ragaz hip ab/ad with manual resistance supine PT-OP-T Assessment and Plan Start: 05/28/19 08:11 Freq: Status: Active Protocol: Document 07/18/19 09:50 SP (Rec: 07/18/19 10:40 SP [id number]) Physical Therapy Assessment Goals Four Impairment requires assistance with bed mobility and transfers Short Term Goal (STG) Patient will be able to perform all bed mobility independently to improve her functional independence. STG Duration 07/10/19 [employer]ator Goal (LTG) Patient will be able to perform a floor transfer with SB to min assist LTG Duration 08/27/19 Three Impairment weakness left UE and LE s/p CVA Senior Living Goal (LTG) Improve functional strength in left LE, as evidenced by ability to move from sit > < stand without use of UE's. Request OT for left UE rehab. LTG Duration 08/27/19 Two Impairment balance dysfunction with high risk for falls [employer] Systems Integrator Goal (LTG) Improve balance as evidenced by improvement in Tinnetti balance and gait score to low fall risk range to improve safety in the home and community. LTG Duration 08/27/19 One Impairment requires morro-walker for gait, limited to household Senior Living Goal (LTG) Patient able to ambulate with least restrictive device for functional community distances to improve her functional independence and quality of life. LTG Duration 08/27/19 Assessment Summary Assessment Pt demonstrated improvement in LLE hip IR self during side stepping, and knee flexion LLE during step up/down performance today. Pt reported tiring and little increased perspiration during step ups and stated little anxiety during rest break. Improved gait balance using quad cane and SPC approx 100 ft total CGA with self hip IR and 2 stopped rests for recovery, no deviations or LOB. Physical Therapy Plan Frequency and Duration Frequency of Treatment 2x/Week Duration of Treatment 12 wks Plan of Care Start Date 05/28/19 Plan of Care End Date 08/27/19 Therapeutic Interventions Therapeutic Interventions Aquatic Therapy,Balance Training,Gait Training,Home Exercise Program,Neuromuscular Re-education,Orthotic/ Prosthetic Management,Patient/ Caregiver Education,Self-Care/ Home Management,Taping, Therapeutic Activities, Therapeutic Exercises Modalities Cold Pack/Ice Massage,Hot Packs Next Visit Focus/Plan Next Note Type Treatment Note Next Visit Plan Assess step ups bottom step and RHR and gait using quad cane, SPC performed last tx. Provided patient purple paper for more pool/land appts with no more than 4 consecutive VINE PRUNER appts through end august . Continue per PT POC:Progress gait activities and strengthing. Progress to deep water for cardio conditioning
--- NOTE | 2019-07-23 09:45 | PT.OTN ---
Current Diagnoses Hemiplegia, unspecified affecting unspecified side (07/23/19) Difficulty in walking, not elsewhere classified (07/23/19) Weakness (07/23/19) History of falling (07/23/19) Physical Therapy Treatment Note PT-OP-A Visit Information Start: 05/28/19 08:11 Freq: Status: Active Protocol: Document 07/23/19 08:55 SP (Rec: 07/23/19 11:16 SP [id number]) Out-Patient Physical Therapy Visit Information Visit Information Visit Type Treatment Note Visit Start Time 08:55 Visit Stop Time 09:45 Total Visit Minutes 50 Visit Number 14 Number of SCIENCE TECHNICIAN Visits 3 PT-OP-B Current Condition Start: 05/28/19 08:11 Freq: Status: Active Protocol: Document 05/28/19 14:30 SAK (Rec: 05/29/19 16:53 SAK [id number]) Current Condition History of Current Condition Onset Date 2014 Current Complaints weakness, requires assistance with all mobility and household tasks History of Current Condition Reports that she suffered a stroke in 2014 after surgery for brain aneurysm. CVA caused weakness on the left side of her body, gait and balance difficulty, seizures. Prior Treatments and Tests prior PT, OT Future Testing and Treatments Planned uncertain of when has next physician appointment Treatment Goals Patient/Caregiver Goals Improve her strength, gait, balance, be trained in a floor transfer. Prior Functional Status Baseline Function- ADL's Independent Baseline Function- Mobility Independent Baseline Function- Gait was independent with gait without device Baseline Function- Work/School was able to work without limitations Baseline Function- Recreation/Hobbies no limitations Current Functional Impairments (Reported) Functional Limitations- ADL's assistance with all ADL's Functional Limitations- Mobility/Gait requires the use of morro- walker and is limited to household distances Functional Limitations- Work/School unable Functional Limitations- Recreation/ unable Hobbies Personal Factors Other Personal Factors That May Effect anxiety, depression, poor Therapy/Recovery memory PT-OP-C Subjective Start: 05/28/19 08:11 Freq: Status: Active Protocol: Document 07/23/19 08:55 SP (Rec: 07/23/19 11:16 SP [id number]) OP-PT Subjective Patient Comments Patient Comments Pt stated was able to ascend daughter's stairs using quad cane and family to guide for safety secondary to no railing to use with success. Pt was using her quad cane more over the weekend, feeling improving in gait. PT-OP-D Balance Start: 05/28/19 08:11 Freq: Status: Active Protocol: Document 05/29/19 14:30 [facility] (Rec: 05/30/19 14:24 [facility] [id number]) OP-PT Balance Assessment Sitting Balance Static Sitting Balance Ability Good Dynamic Sitting Balance Ability Fair Standing Balance Static Standing Balance Ability Good Dynamic Standing Balance Ability Fair Device Used hemiwalker right Tinetti Balance Assessment Sitting Balance Sitting Balance Steady, safe Arising from Chair Attempts to Arise Able, requires >1 attempt Standing Balance Immediate Standing Balance Steady with support Standing Balance Steady, wide stance Nudged Response Begins to fall Standing with Eyes Closed Unsteady Turning Step Pattern Turning 360 Degrees Discontinuous steps Stability Turning 360 Degrees Unsteady, grabs/staggers Sitting Down Sitting Down Uses arms or unsteady Gait and Step Initiation of Gait Hesitancy, mult. attempts Right Foot Step Length Does not pass stance ft. Right Foot Step Height Does not clear floor Left Foot Step Length Does not pass stance foot Left Foot Step Height Does not clear floor Step Description Step Symmetry Step length not equal Gait Description Path Description Mild/moderate deviation Trunk Description Marked sway or uses aide Walking Stance Heels apart Scoring and Interpretation Tinetti Composite Score (points) 6 Interpretation of Scores High risk for falls(< 19) Herrera Fall Scale Copyright Permission PT-OP-G Mobility & Gait Start: 05/28/19 08:11 Freq: Status: Active Protocol: Document 05/29/19 14:30 [facility] (Rec: 05/30/19 14:24 [facility] [id number]) OP Mobility Evaluation Bed Mobility Rolling min assist Supine to and from Sit min assist Transfers Sit to Stand uses right UE Bed to Chair Transfers uses right UE Floor Transfers unable Functional Movements Squats uses primarily right LE OP Gait Assessment Gait Gait Assistance Required: Standby Assistance Distance (Feet) 20 Assistive Devices Assistive Device Morro Walker Orthotic/Prosthetic Devices or Brace: Yes Gait Deviations General Gait Pattern Decreased Stride Length, Decreased Feet Clearance, Lateral Trunk Lean,Wide Based Gait Factors Limiting Gait Function Factors Limiting Gait Function Abnormal Tonal Influences, Decreased Strength PT-OP-H Neuro Start: 05/28/19 08:11 Freq: Status: Active Protocol: Document 05/29/19 14:30 [facility] (Rec: 05/30/19 14:24 [facility] [id number]) Sensation Evaluation Gross Sensation Gross Sensation Left UE Impaired,Left LE Impaired Sensation Description Paresthesia,Numbness Coordination Evaluation Lower Extremity Tests Left Alternate Heel to Knee; Heel to Toe Test Moderate Impairment Heel on Boles Test Moderate Impairment Foot Tapping Test Moderate Impairment PT-OP-K Range of Motion Start: 05/28/19 08:11 Freq: Status: Active Protocol: Document 05/29/19 14:30 [facility] (Rec: 05/30/19 14:24 [facility] [id number]) Hip Goniometric Range of Motion Hip jake Hip ROM WFL Yes Knee Goniometric Range of Motion Knee jake Knee ROM WFL Yes Ankle and Foot Goniometric Range of Motion Ankle and Foot Left Active Ankle/Foot ROM WFL No Right Ankle/Foot ROM WFL Yes Ankle and Foot ROM Limitations Comments left ankle df -5, right 5 PT-OP-M Strength Start: 05/28/19 08:11 Freq: Status: Active Protocol: Document 05/29/19 14:30 [facility] (Rec: 05/30/19 14:24 [facility] [id number]) Hip Strength Hip Manual Muscle Testing Left Flexion (L2) 3- Fair- Extension (S1) 2 Poor Abduction 2+ Poor+ External Rotation 3- Fair- Internal Rotation 3+ Fair+ Right Flexion (L2) 4 Good Extension (S1) 4- Good- Abduction 4 Good External Rotation 3+ Fair+ Internal Rotation 4- Good- Knee Strength Knee Manual Muscle Testing Left Flexion (S2) 3 Fair Extension (L3) 3+ Fair+ Right Flexion (S2) 4+ Good+ Extension (L3) 4+ Good+ Ankle/Foot Strength Ankle and Foot Manual Muscle Testing Left Dorsiflexion (L4) 0 Zero Plantarflexion (S1) 0 Zero Right Dorsiflexion (L4) 4+ Good+ Plantarflexion (S1) 4+ Good+ PT-OP-Q Treatments Start: 05/28/19 08:11 Freq: Status: Active Protocol: Document 07/23/19 08:55 SP (Rec: 07/23/19 11:16 SP [id number]) Cardio Equipment Recumbent Elliptical ([employer] Guide To) Duration (Minutes) 8 Resistance 2 Seat Position 4 Other cued L knee more adduction control provded Min A 1/2 time when tired. Therapeutic Exercises Sitting Exercises LAQ Reps/Minutes 2x5 pause 2 sec Comments cued slow pacing control, noted 4-5th MTP stimulating but ok Standing Exercises marching Side bilateral Equipment Used SPC Reps/Minutes x5 Comments CGA gait belt lunges Standing Exercise Name modified lunge Side bilateral Equipment Used SPC Reps/Minutes 3x5 each LE (RLE not as far front) Comments CGA gait belt f/b/side stepping Standing Exercise Name f/b/side stepping Equipment Used SPC Reps/Minutes 10 ft x1 laps each direction Gait Training Gait Activity 1 Description level surface Device Used SPC Distance/Duration 70 ft, 68ft Treatment Focus L hip IR and foot clearance, improve gait LRAD Comments CGA- close SBA, occasional cuing for L hip IR but improvement in self corrections stair mgt Device Used quad cane, gait belt Level of Assistance CGA and Min for quad cane stability Surface 4 step ascend, 6 step descend -step to gait Treatment Focus stair mgt assess for daughter' s 2 steps no HR, use quad cane Comments CGA ascend min quad cane stability 10% A, cued body COG over MIKA not lean into rail and occasional LLE alignment more IR neutral self corrections. PT-OP-S Aquatic Treatment Start: 05/28/19 08:11 Freq: Status: Active Protocol: Document 07/13/19 10:15 NILAY (Rec: 07/13/19 15:03 NILAY [id number]) Aquatics Treatment Pool Entry/Exit Pool Entry/Exit Method Lift Assistance Minimal Assistance Water Walking Marching Water Level Chest Level Walking Equipment Ankle Weight- 2.5#, sm float on LUE, sm tejon float Level of Assistance Contact Guard Assistance, Minimal Assistance,Verbal Cues Sideways Water Level Chest Level Walking Equipment Ankle Weight- 2.5#, sm float on LUE Level of Assistance Contact Guard Assistance, Minimal Assistance,Verbal Cues Forwards Water Level Chest Level Walking Equipment Ankle Weight- 2.5#, sm float on LUE Level of Assistance Contact Guard Assistance, Minimal Assistance,Verbal Cues Lower Extremity Exercises pushing off wall with uni and bilateral LEs Details supine with feet against wall Body Position Supine Equipment neck and hip floats Reps/Duration 10 bilateral and 10 LLE Comments stabilizing at left knee to prevent lateral rotation left hip flex/ext Details standing on box with right foot Body Position Standing Water Level Waist Level Equipment Ankle Weight- 2.5# Reps/Duration 10 Comments manual assist for maintaining knee extension weight shifting staggard stance Details HH on wall Body Position Standing Water Level Waist Level Equipment Ankle Weight- 2.5#, sm float on LUE Comments assist with bracing left knee SLS LLE Details HH on wall Body Position Standing Water Level Waist Level Equipment Ankle Weight- 2.5#, sm float on LUE Reps/Duration [id number] sec Comments assist with bracing LLE, weight [id number] Details at wall Body Position Standing Water Level Waist Level Equipment Ankle Weight- 2.5#, sm float on LUE Comments assist with bracing left knee Upper Extremity Exercises pull downs Details standing at wall Water Level Chest Level Equipment BBs Reps/Duration 10 Comments assist with LUE HABD/HADD with long BB Body Position Standing Water Level Chest Level Reps/Duration 12x Comments assist with left hand on BB push pull Details back against wall Body Position Standing Water Level Waist Level Equipment lg BB Reps/Duration 10x Spinal Exercises Bad Ragaz Details trunk stabilization Body Position Supine Equipment Neck Float, hip float, arm float, LE floats Reps/Duration 2 min Manual Techniques Bad Ragaz hip ab/ad with manual resistance supine PT-OP-T Assessment and Plan Start: 05/28/19 08:11 Freq: Status: Active Protocol: Document 07/23/19 08:55 SP (Rec: 07/23/19 11:16 SP [id number]) Physical Therapy Assessment Goals Four Impairment requires assistance with bed mobility and transfers Short Term Goal (STG) Patient will be able to perform all bed mobility independently to improve her functional independence. STG Duration 07/10/19 Skilled Nursing Goal (LTG) Patient will be able to perform a floor transfer with SB to min assist LTG Duration 08/27/19 Three Impairment weakness left UE and LE s/p CVA Technical Analyst Goal (LTG) Improve functional strength in left LE, as evidenced by ability to move from sit > < stand without use of UE's. Request OT for left UE rehab. LTG Duration 08/27/19 Two Impairment balance dysfunction with high risk for falls Technical Analyst Goal (LTG) Improve balance as evidenced by improvement in Tinnetti balance and gait score to low fall risk range to improve safety in the home and community. LTG Duration 08/27/19 One Impairment requires morro-walker for gait, limited to household Technical Analyst Goal (LTG) Patient able to ambulate with least restrictive device for functional community distances to improve her functional independence and quality of life. LTG Duration 08/27/19 Assessment Summary Assessment Pt demonstrates improvemenet in L knee adduction alignment during biodex war m up. Pt demonstrates self L hip IR during advancement into heel strike > mid stance during gait, incorportated SPC during tx CGA initially then close SBA. Tx focused on standing july, side/forward/ backstepping using SPC for support RUE with CGA,cued awareness of LLE ext during WB activities and not allow hyperextension with improvement demontration today . Pt reports wanting to use pool more between aquatic appts. SCIENCE TECHNICIAN suggested to discuss with pool therapy staff for safety feedback. Physical Therapy Plan Frequency and Duration Frequency of Treatment 2x/Week Duration of Treatment 12 wks Plan of Care Start Date 05/28/19 Plan of Care End Date 08/27/19 Therapeutic Interventions Therapeutic Interventions Aquatic Therapy,Balance Training,Gait Training,Home Exercise Program,Neuromuscular Re-education,Orthotic/ Prosthetic Management,Patient/ Caregiver Education,Self-Care/ Home Management,Taping, Therapeutic Activities, Therapeutic Exercises Modalities Cold Pack/Ice Massage,Hot Packs Next Visit Focus/Plan Next Note Type Treatment Note Next Visit Plan Assess response to standing activities last tx, gait using SPC, stair mgt using quad cane for safety at daughter's house and another person support. Continue per PT POC: Progress gait activities and strengthing. Progress to deep water for cardio conditioning.
--- NOTE | 2019-07-25 11:25 | PT.OTN ---
Current Diagnoses Hemiplegia, unspecified affecting unspecified side (07/25/19) Difficulty in walking, not elsewhere classified (07/25/19) Weakness (07/25/19) History of falling (07/25/19) Physical Therapy Treatment Note PT-OP-A Visit Information Start: 05/28/19 08:11 Freq: Status: Active Protocol: Document 07/25/19 10:34 SP (Rec: 07/25/19 11:46 SP [id number]) Out-Patient Physical Therapy Visit Information Visit Information Visit Type Treatment Note Visit Start Time 10:34 Visit Stop Time 11:25 Total Visit Minutes 51 Visit Number 15 Number of DIRECTOR OF LABOR AND DELIVERY Visits 4 PT-OP-B Current Condition Start: 05/28/19 08:11 Freq: Status: Active Protocol: Document 05/28/19 14:30 SAK (Rec: 05/29/19 16:53 SAK [id number]) Current Condition History of Current Condition Onset Date 2014 Current Complaints weakness, requires assistance with all mobility and household tasks History of Current Condition Reports that she suffered a stroke in 2014 after surgery for brain aneurysm. CVA caused weakness on the left side of her body, gait and balance difficulty, seizures. Prior Treatments and Tests prior PT, OT Future Testing and Treatments Planned uncertain of when has next physician appointment Treatment Goals Patient/Caregiver Goals Improve her strength, gait, balance, be trained in a floor transfer. Prior Functional Status Baseline Function- ADL's Independent Baseline Function- Mobility Independent Baseline Function- Gait was independent with gait without device Baseline Function- Work/School was able to work without limitations Baseline Function- Recreation/Hobbies no limitations Current Functional Impairments (Reported) Functional Limitations- ADL's assistance with all ADL's Functional Limitations- Mobility/Gait requires the use of morro- walker and is limited to household distances Functional Limitations- Work/School unable Functional Limitations- Recreation/ unable Hobbies Personal Factors Other Personal Factors That May Effect anxiety, depression, poor Therapy/Recovery memory PT-OP-C Subjective Start: 05/28/19 08:11 Freq: Status: Active Protocol: Document 07/25/19 10:34 SP (Rec: 07/25/19 11:46 SP [id number]) OP-PT Subjective Patient Comments Patient Comments Pt reported was in pain after last tx over L LB down posterolateral L LE around L knee into L lateral calf and lateral L foot that lasted into last night, usure if over did it last tx on her feet activities. Also had difficult time sleeping due to pain. Pt stated doesnt' seen Dr Valdez until early Apr and responded well to his treatments to decrease leg pain. Pt reported took a short walk with caregiver yesterday outside and difficult time during curb mgt while using morro walker would like to continue stair mgt to hellp. crimp setter not present during tx, inthe car to decrease community exposure per PT comment. PT-OP-D Balance Start: 05/28/19 08:11 Freq: Status: Active Protocol: Document 05/29/19 14:30 [facility] (Rec: 05/30/19 14:24 [facility] [id number]) OP-PT Balance Assessment Sitting Balance Static Sitting Balance Ability Good Dynamic Sitting Balance Ability Fair Standing Balance Static Standing Balance Ability Good Dynamic Standing Balance Ability Fair Device Used hemiwalker right Tinetti Balance Assessment Sitting Balance Sitting Balance Steady, safe Arising from Chair Attempts to Arise Able, requires >1 attempt Standing Balance Immediate Standing Balance Steady with support Standing Balance Steady, wide stance Nudged Response Begins to fall Standing with Eyes Closed Unsteady Turning Step Pattern Turning 360 Degrees Discontinuous steps Stability Turning 360 Degrees Unsteady, grabs/staggers Sitting Down Sitting Down Uses arms or unsteady Gait and Step Initiation of Gait Hesitancy, mult. attempts Right Foot Step Length Does not pass stance ft. Right Foot Step Height Does not clear floor Left Foot Step Length Does not pass stance foot Left Foot Step Height Does not clear floor Step Description Step Symmetry Step length not equal Gait Description Path Description Mild/moderate deviation Trunk Description Marked sway or uses aide Walking Stance Heels apart Scoring and Interpretation Tinetti Composite Score (points) 6 Interpretation of Scores High risk for falls(< 19) Herrera Fall Scale Copyright Permission PT-OP-G Mobility & Gait Start: 05/28/19 08:11 Freq: Status: Active Protocol: Document 05/29/19 14:30 [facility] (Rec: 05/30/19 14:24 [facility] [id number]) OP Mobility Evaluation Bed Mobility Rolling min assist Supine to and from Sit min assist Transfers Sit to Stand uses right UE Bed to Chair Transfers uses right UE Floor Transfers unable Functional Movements Squats uses primarily right LE OP Gait Assessment Gait Gait Assistance Required: Standby Assistance Distance (Feet) 20 Assistive Devices Assistive Device Morro Walker Orthotic/Prosthetic Devices or Brace: Yes Gait Deviations General Gait Pattern Decreased Stride Length, Decreased Feet Clearance, Lateral Trunk Lean,Wide Based Gait Factors Limiting Gait Function Factors Limiting Gait Function Abnormal Tonal Influences, Decreased Strength PT-OP-H Neuro Start: 05/28/19 08:11 Freq: Status: Active Protocol: Document 05/29/19 14:30 SAK (Rec: 05/30/19 14:24 [facility] [id number]) Sensation Evaluation Gross Sensation Gross Sensation Left UE Impaired,Left LE Impaired Sensation Description Paresthesia,Numbness Coordination Evaluation Lower Extremity Tests Left Alternate Heel to Knee; Heel to Toe Test Moderate Impairment Heel on Boles Test Moderate Impairment Foot Tapping Test Moderate Impairment PT-OP-K Range of Motion Start: 05/28/19 08:11 Freq: Status: Active Protocol: Document 05/29/19 14:30 [facility] (Rec: 05/30/19 14:24 [facility] [id number]) Hip Goniometric Range of Motion Hip jake Hip ROM WFL Yes Knee Goniometric Range of Motion Knee jake Knee ROM WFL Yes Ankle and Foot Goniometric Range of Motion Ankle and Foot Left Active Ankle/Foot ROM WFL No Right Ankle/Foot ROM WFL Yes Ankle and Foot ROM Limitations Comments left ankle df -5, right 5 PT-OP-M Strength Start: 05/28/19 08:11 Freq: Status: Active Protocol: Document 05/29/19 14:30 [facility] (Rec: 05/30/19 14:24 [facility] [id number]) Hip Strength Hip Manual Muscle Testing Left Flexion (L2) 3- Fair- Extension (S1) 2 Poor Abduction 2+ Poor+ External Rotation 3- Fair- Internal Rotation 3+ Fair+ Right Flexion (L2) 4 Good Extension (S1) 4- Good- Abduction 4 Good External Rotation 3+ Fair+ Internal Rotation 4- Good- Knee Strength Knee Manual Muscle Testing Left Flexion (S2) 3 Fair Extension (L3) 3+ Fair+ Right Flexion (S2) 4+ Good+ Extension (L3) 4+ Good+ Ankle/Foot Strength Ankle and Foot Manual Muscle Testing Left Dorsiflexion (L4) 0 Zero Plantarflexion (S1) 0 Zero Right Dorsiflexion (L4) 4+ Good+ Plantarflexion (S1) 4+ Good+ PT-OP-Q Treatments Start: 05/28/19 08:11 Freq: Status: Active Protocol: Document 07/25/19 10:34 SP (Rec: 07/25/19 11:46 SP [id number]) Cardio Equipment Recumbent Elliptical (Biodex) Duration (Minutes) 8 Resistance 2 Seat Position 4 Other cued L knee more adduction control provded occasiona A 1/ 2 time when tired. Gym Equipment Shuttle Recovery Unilateral Squats Resistance 37 right first set 50 second set, 25 left Shuttle Recovery Platform Stable Reps/Time verbal and manual cues for left LE alignment Bilateral Squats Resistance 50 Shuttle Recovery Platform Stable Reps/Time 10x2 Therapeutic Exercises Supine Exercises supine clam shell Side bilateral Resistance AROM Reps/Minutes 2x5 Comments cued slow pacing control and awareness of LLE still during RLE movement core march Side bilateral Reps/Minutes x5 Comments cued slow pacing bridges Reps/Minutes x5 Comments Mod A for maitaining L knee mid alignment Gait Training Gait Activity 1 Description level surface Device Used Quad cane, gait belt Distance/Duration 70 ft, 100ft Treatment Focus L hip IR and foot clearance, improve gait LRAD Comments close SBA, occasional cuing for L hip IR midline alignment during heel strike and into mid stance sequence self corrections stair mgt Device Used R HR,gait belt Level of Assistance CGA (see prior tx used quad cane) Surface 6 step descend step to gait Comments cued for L foot alignment with self corrections ascend, Roberto descend to assist L knee alignment. PT-OP-S Aquatic Treatment Start: 05/28/19 08:11 Freq: Status: Active Protocol: Document 07/13/19 10:15 NILAY (Rec: 07/13/19 15:03 LJ [id number]) Aquatics Treatment Pool Entry/Exit Pool Entry/Exit Method Lift Assistance Minimal Assistance Water Walking Marching Water Level Chest Level Walking Equipment Ankle Weight- 2.5#, sm float on LUE, sm curyung float Level of Assistance Contact Guard Assistance, Minimal Assistance,Verbal Cues Sideways Water Level Chest Level Walking Equipment Ankle Weight- 2.5#, sm float on LUE Level of Assistance Contact Guard Assistance, Minimal Assistance,Verbal Cues Forwards Water Level Chest Level Walking Equipment Ankle Weight- 2.5#, sm float on LUE Level of Assistance Contact Guard Assistance, Minimal Assistance,Verbal Cues Lower Extremity Exercises pushing off wall with uni and bilateral LEs Details supine with feet against wall Body Position Supine Equipment neck and hip floats Reps/Duration 10 bilateral and 10 LLE Comments stabilizing at left knee to prevent lateral rotation left hip flex/ext Details standing on box with right foot Body Position Standing Water Level Waist Level Equipment Ankle Weight- 2.5# Reps/Duration 10 Comments manual assist for maintaining knee extension weight shifting staggard stance Details HH on wall Body Position Standing Water Level Waist Level Equipment Ankle Weight- 2.5#, sm float on LUE Comments assist with bracing left knee SLS LLE Details HH on wall Body Position Standing Water Level Waist Level Equipment Ankle Weight- 2.5#, sm float on LUE Reps/Duration [id number] sec Comments assist with bracing LLE, weight [id number] Details at wall Body Position Standing Water Level Waist Level Equipment Ankle Weight- 2.5#, sm float on LUE Comments assist with bracing left knee Upper Extremity Exercises pull downs Details standing at wall Water Level Chest Level Equipment BBs Reps/Duration 10 Comments assist with LUE HABD/HADD with long BB Body Position Standing Water Level Chest Level Reps/Duration 12x Comments assist with left hand on BB push pull Details back against wall Body Position Standing Water Level Waist Level Equipment lg BB Reps/Duration 10x Spinal Exercises Bad Ragaz Details trunk stabilization Body Position Supine Equipment Neck Float, hip float, arm float, LE floats Reps/Duration 2 min Manual Techniques Bad Ragaz hip ab/ad with manual resistance supine PT-OP-T Assessment and Plan Start: 05/28/19 08:11 Freq: Status: Active Protocol: Document 07/25/19 10:34 SP (Rec: 07/25/19 11:46 SP [id number]) Physical Therapy Assessment Goals Four Impairment requires assistance with bed mobility and transfers Short Term Goal (STG) Patient will be able to perform all bed mobility independently to improve her functional independence. STG Duration 07/10/19 Senior Living Goal (LTG) Patient will be able to perform a floor transfer with SB to min assist LTG Duration 08/27/19 Three Impairment weakness left UE and LE s/p CVA Senior Living Goal (LTG) Improve functional strength in left LE, as evidenced by ability to move from sit > < stand without use of UE's. Request OT for left UE rehab. LTG Duration 08/27/19 Two Impairment balance dysfunction with high risk for falls Senior Living Goal (LTG) Improve balance as evidenced by improvement in Tinnetti balance and gait score to low fall risk range to improve safety in the home and community. LTG Duration 08/27/19 One Impairment requires morro-walker for gait, limited to household Tap Puller Goal (LTG) Patient able to ambulate with least restrictive device for functional community distances to improve her functional independence and quality of life. LTG Duration 08/27/19 Assessment Summary Assessment DIRECTOR OF LABOR AND DELIVERY discussed next tx to have caregiver attend Pt treatment for trng for curb mgt and stair reassessment for support using morro walker/quad cane and gait using LRAD and importance of gait belt for safety outside and stair mgt, patient verbal understanding. Pt had questions about HEP supine today, cued and provided support where needed durign HEP review. Tx focused on LE strengthening, stair mgt and HEP review and gait using quad cane today but SPC last tx. Pt reported L knee and LE pretty tired and little pain end of tx but none pre Tx. PT addd more land appts while pool closed to progress strengthening and mobility. Physical Therapy Plan Frequency and Duration Frequency of Treatment 2x/Week Duration of Treatment 12 wks Plan of Care Start Date 05/28/19 Plan of Care End Date 08/27/19 Therapeutic Interventions Therapeutic Interventions Aquatic Therapy,Balance Training,Gait Training,Home Exercise Program,Neuromuscular Re-education,Orthotic/ Prosthetic Management,Patient/ Caregiver Education,Self-Care/ Home Management,Taping, Therapeutic Activities, Therapeutic Exercises Modalities Cold Pack/Ice Massage,Hot Packs Next Visit Focus/Plan Next Note Type Treatment Note Next Visit Plan Assess response to last tx. Next tx add STMs as needed, caregiver training curb/stair mgt and continue progress LRAD gait, Progress per PT POC. Continue per PT POC: Progress gait activities and strengthing. Progress to deep water for cardio conditioning.
--- NOTE | 2019-10-31 12:49 | PT.OPPOC ---
Physical, Occupational & Speech Therapy At [facility] Current Diagnoses Hemiplegia, unspecified affecting unspecified side (10/31/19) Difficulty in walking, not elsewhere classified (10/31/19) Weakness (10/31/19) History of falling (10/31/19) Visit Care Team Role Provider Type KINJAL Cooper Attending Provider Advanced Rehabilitation Supervisor Primary Care Provider Specialty: [facility] Practice Address: [address] [place] [address], [id number] Email: [email or web address] Plan Of Care PT-OP-T Assessment and Plan Start: 05/28/19 08:11 Freq: Status: Active Protocol: Document 10/31/19 11:15 SAK (Rec: 10/31/19 11:57 SAK [id number]) Physical Therapy Assessment Goals Four Impairment requires assistance with bed mobility and transfers Short Term Goal (STG) Patient will be able to perform all bed mobility independently to improve her functional independence. 10/31/19: good goal progress STG Duration goal met Care Home Goal (LTG) Patient will be able to perform a floor transfer with SB to min assist 10/31/19: max assist today LTG Duration 12/30/19 Three Impairment weakness left UE and LE s/p CVA Care Home Goal (LTG) Improve functional strength in left LE, as evidenced by ability to move from sit > < stand without use of UE's. Request OT for left UE rehab. 10/31/19: OT starts tomorrow. Good progress with sit to stand, though mostly using right UE and LE LTG Duration 12/30/19 Two Impairment balance dysfunction with high risk for falls Garage Supervisor Goal (LTG) Improve balance as evidenced by improvement in Tinnetti balance and gait score to low fall risk range to improve safety in the home and community. 10/31/19: remains high risk for falls LTG Duration 12/30/19 One Impairment requires armaan-walker for gait, limited to household gait Garage Supervisor Goal (LTG) Patient able to ambulate with least restrictive device for functional community distances to improve her functional independence and quality of life. 10/30/19: no progress due to Covid 19. LTG Duration 12/30/19 Progress Towards Goals Progress Towards Goals Slow Progress - Other Assessment Summary Assessment Slow progress without PT due to Covid19. Goals remain the same for improvement in balance, gait, strength, and functional mobility. Will need to do caregiver training as well. Physical Therapy Plan Frequency and Duration Frequency of Treatment 2x/Week Duration of Treatment 12 wks Plan of Care Start Date 10/31/19 Plan of Care End Date 12/30/19 Therapeutic Interventions Therapeutic Interventions Aquatic Therapy,Balance Training,Gait Training,Home Exercise Program,Neuromuscular Re-education,Orthotic/ Prosthetic Management,Patient/ Caregiver Education,Self-Care/ Home Management,Taping, Therapeutic Activities, Therapeutic Exercises Modalities Cold Pack/Ice Massage,Hot Packs Next Visit Focus/Plan Next Note Type Treatment Note Next Visit Plan Review updated HEP, gait training on level and uneven surfaces, neur re-education activities for balance retraining. Will be starting in clinic, then transition to aquatic therapy when in Phase 3 of re-opening in state Plan of Care Dates Plan of Care Start Date 10/31/19 Plan of Care End Date 12/30/19 Electronically Signed by: Renetta Villarreal, PT 10/31/19 [id number] Please Sign and Return: I have reviewed this Plan of Care and certify that the skilled therapy services above are required to meet the patient?s needs. Physician Signature Date Printed Name and Credentials Clinical Instructor Signature Printed Name and Credentials
--- NOTE | 2019-10-31 12:49 | PT.OTN ---
Current Diagnoses Hemiplegia, unspecified affecting unspecified side (10/31/19) Difficulty in walking, not elsewhere classified (10/31/19) Weakness (10/31/19) History of falling (10/31/19) Physical Therapy Treatment Note PT-OP-A Visit Information Start: 05/28/19 08:11 Freq: Status: Active Protocol: Document 10/31/19 11:15 SAK (Rec: 10/31/19 11:57 SAK [id number]) Out-Patient Physical Therapy Visit Information Visit Information Visit Type Treatment Note Visit Start Time 11:15 Visit Stop Time 12:00 Total Visit Minutes 45 Visit Number 16 Number of SAND CARRIER Visits 5 PT-OP-B Current Condition Start: 05/28/19 08:11 Freq: Status: Active Protocol: Document 10/31/19 11:15 SAK (Rec: 10/31/19 11:57 SAK [id number]) Current Condition History of Current Condition Onset Date 2014 Current Complaints weakness, requires assistance with all mobility and household tasks History of Current Condition Reports that she suffered a stroke in 2014 after surgery for brain aneurysm. CVA caused weakness on the left side of her body, gait and balance difficulty, seizures. Treatment Goals Patient/Caregiver Goals Improve strength, get faster with walking including on stairs, improve balance. PT-OP-C Subjective Start: 05/28/19 08:11 Freq: Status: Active Protocol: Document 10/31/19 11:15 SAK (Rec: 10/31/19 11:57 SAK [id number]) OP-PT Subjective Patient Comments Patient Comments Reports feeling weaker since last seen in PT 3 months ago, had felt like aquatic therapy was really helping her, but due to Covid19 hasn't been able to have PT. Has been doing some exercises at home: squats, sidestepping,marching in place, stairs occasionally , starts IRG for occupational therapy tomorrow. Using mostly quad cane or single point cane with hurry cane bottom. Had fall recently when dog ran into her; had to call 911 for assistance due to inability to get up off floor PT-OP-D Balance Start: 05/28/19 08:11 Freq: Status: Active Protocol: Document 05/29/19 14:30 SAK (Rec: 05/30/19 14:24 SAK [id number]) OP-PT Balance Assessment Sitting Balance Static Sitting Balance Ability Good Dynamic Sitting Balance Ability Fair Standing Balance Static Standing Balance Ability Good Dynamic Standing Balance Ability Fair Device Used hemiwalker right Tinetti Balance Assessment Sitting Balance Sitting Balance Steady, safe Arising from Chair Attempts to Arise Able, requires >1 attempt Standing Balance Immediate Standing Balance Steady with support Standing Balance Steady, wide stance Nudged Response Begins to fall Standing with Eyes Closed Unsteady Turning Step Pattern Turning 360 Degrees Discontinuous steps Stability Turning 360 Degrees Unsteady, grabs/staggers Sitting Down Sitting Down Uses arms or unsteady Gait and Step Initiation of Gait Hesitancy, mult. attempts Right Foot Step Length Does not pass stance ft. Right Foot Step Height Does not clear floor Left Foot Step Length Does not pass stance foot Left Foot Step Height Does not clear floor Step Description Step Symmetry Step length not equal Gait Description Path Description Mild/moderate deviation Trunk Description Marked sway or uses aide Walking Stance Heels apart Scoring and Interpretation Tinetti Composite Score (points) 6 Interpretation of Scores High risk for falls(< 19) Herrera Fall Scale Copyright Permission PT-OP-G Mobility & Gait Start: 05/28/19 08:11 Freq: Status: Active Protocol: Document 05/29/19 14:30 [facility] (Rec: 05/30/19 14:24 [facility] [id number]) OP Mobility Evaluation Bed Mobility Rolling min assist Supine to and from Sit min assist Transfers Sit to Stand uses right UE Bed to Chair Transfers uses right UE Floor Transfers unable Functional Movements Squats uses primarily right LE OP Gait Assessment Gait Gait Assistance Required: Standby Assistance Distance (Feet) 20 Assistive Devices Assistive Device Morro Walker Orthotic/Prosthetic Devices or Brace: Yes Gait Deviations General Gait Pattern Decreased Stride Length, Decreased Feet Clearance, Lateral Trunk Lean,Wide Based Gait Factors Limiting Gait Function Factors Limiting Gait Function Abnormal Tonal Influences, Decreased Strength PT-OP-H Neuro Start: 05/28/19 08:11 Freq: Status: Active Protocol: Document 05/29/19 14:30 [facility] (Rec: 05/30/19 14:24 [facility] [id number]) Sensation Evaluation Gross Sensation Gross Sensation Left UE Impaired,Left LE Impaired Sensation Description Paresthesia,Numbness Coordination Evaluation Lower Extremity Tests Left Alternate Heel to Knee; Heel to Toe Test Moderate Impairment Heel on Boles Test Moderate Impairment Foot Tapping Test Moderate Impairment PT-OP-K Range of Motion Start: 05/28/19 08:11 Freq: Status: Active Protocol: Document 05/29/19 14:30 SAK (Rec: 05/30/19 14:24 SAK [id number]) Hip Goniometric Range of Motion Hip jake Hip ROM WFL Yes Knee Goniometric Range of Motion Knee jake Knee ROM WFL Yes Ankle and Foot Goniometric Range of Motion Ankle and Foot Left Active Ankle/Foot ROM WFL No Right Ankle/Foot ROM WFL Yes Ankle and Foot ROM Limitations Comments left ankle df -5, right 5 PT-OP-M Strength Start: 05/28/19 08:11 Freq: Status: Active Protocol: Document 05/29/19 14:30 SAK (Rec: 05/30/19 14:24 SAK [id number]) Hip Strength Hip Manual Muscle Testing Left Flexion (L2) 3- Fair- Extension (S1) 2 Poor Abduction 2+ Poor+ External Rotation 3- Fair- Internal Rotation 3+ Fair+ Right Flexion (L2) 4 Good Extension (S1) 4- Good- Abduction 4 Good External Rotation 3+ Fair+ Internal Rotation 4- Good- Knee Strength Knee Manual Muscle Testing Left Flexion (S2) 3 Fair Extension (L3) 3+ Fair+ Right Flexion (S2) 4+ Good+ Extension (L3) 4+ Good+ Ankle/Foot Strength Ankle and Foot Manual Muscle Testing Left Dorsiflexion (L4) 0 Zero Plantarflexion (S1) 0 Zero Right Dorsiflexion (L4) 4+ Good+ Plantarflexion (S1) 4+ Good+ PT-OP-Q Treatments Start: 05/28/19 08:11 Freq: Status: Active Protocol: Document 07/25/19 10:34 SP (Rec: 07/25/19 11:46 SP [id number]) Cardio Equipment Recumbent Elliptical (Biodex) Duration (Minutes) 8 Resistance 2 Seat Position 4 Other cued L knee more adduction control provded occasiona A 1/ 2 time when tired. Gym Equipment Shuttle Recovery Unilateral Squats Resistance 37 right first set 50 second set, 25 left Shuttle Recovery Platform Stable Reps/Time verbal and manual cues for left LE alignment Bilateral Squats Resistance 50 Shuttle Recovery Platform Stable Reps/Time 10x2 Therapeutic Exercises Supine Exercises supine clam shell Side bilateral Resistance AROM Reps/Minutes 2x5 Comments cued slow pacing control and awareness of LLE still during RLE movement core march Side bilateral Reps/Minutes x5 Comments cued slow pacing bridges Reps/Minutes x5 Comments Mod A for maitaining L knee mid alignment Gait Training Gait Activity 1 Description level surface Device Used Quad cane, gait belt Distance/Duration 70 ft, 100ft Treatment Focus L hip IR and foot clearance, improve gait LRAD Comments close SBA, occasional cuing for L hip IR midline alignment during heel strike and into mid stance sequence self corrections stair mgt Device Used R HR,gait belt Level of Assistance CGA (see prior tx used quad cane) Surface 6 step descend step to gait Comments cued for L foot alignment with self corrections ascend, Roberto descend to assist L knee alignment. PT-OP-S Aquatic Treatment Start: 05/28/19 08:11 Freq: Status: Active Protocol: Document 07/13/19 10:15 NILAY (Rec: 07/13/19 15:03 NILAY [id number]) Aquatics Treatment Pool Entry/Exit Pool Entry/Exit Method Lift Assistance Minimal Assistance Water Walking Marching Water Level Chest Level Walking Equipment Ankle Weight- 2.5#, sm float on LUE, sm [place] float Level of Assistance Contact Guard Assistance, Minimal Assistance,Verbal Cues Sideways Water Level Chest Level Walking Equipment Ankle Weight- 2.5#, sm float on LUE Level of Assistance Contact Guard Assistance, Minimal Assistance,Verbal Cues Forwards Water Level Chest Level Walking Equipment Ankle Weight- 2.5#, sm float on LUE Level of Assistance Contact Guard Assistance, Minimal Assistance,Verbal Cues Lower Extremity Exercises pushing off wall with uni and bilateral LEs Details supine with feet against wall Body Position Supine Equipment neck and hip floats Reps/Duration 10 bilateral and 10 LLE Comments stabilizing at left knee to prevent lateral rotation left hip flex/ext Details standing on box with right foot Body Position Standing Water Level Waist Level Equipment Ankle Weight- 2.5# Reps/Duration 10 Comments manual assist for maintaining knee extension weight shifting staggard stance Details HH on wall Body Position Standing Water Level Waist Level Equipment Ankle Weight- 2.5#, sm float on LUE Comments assist with bracing left knee SLS LLE Details HH on wall Body Position Standing Water Level Waist Level Equipment Ankle Weight- 2.5#, sm float on LUE Reps/Duration [id number] sec Comments assist with bracing LLE, weight [id number] Details at wall Body Position Standing Water Level Waist Level Equipment Ankle Weight- 2.5#, sm float on LUE Comments assist with bracing left knee Upper Extremity Exercises pull downs Details standing at wall Water Level Chest Level Equipment BBs Reps/Duration 10 Comments assist with LUE HABD/HADD with long BB Body Position Standing Water Level Chest Level Reps/Duration 12x Comments assist with left hand on BB push pull Details back against wall Body Position Standing Water Level Waist Level Equipment lg BB Reps/Duration 10x Spinal Exercises Bad Ragaz Details trunk stabilization Body Position Supine Equipment Neck Float, hip float, arm float, LE floats Reps/Duration 2 min Manual Techniques Bad Ragaz hip ab/ad with manual resistance supine PT-OP-T Assessment and Plan Start: 05/28/19 08:11 Freq: Status: Active Protocol: Document 10/31/19 11:15 KRYSTAL (Rec: 10/31/19 11:57 SAK [id number]) Physical Therapy Assessment Goals Four Impairment requires assistance with bed mobility and transfers Short Term Goal (STG) Patient will be able to perform all bed mobility independently to improve her functional independence. 10/31/19: good goal progress STG Duration goal met Cafeteria Manager Goal (LTG) Patient will be able to perform a floor transfer with SB to min assist 10/31/19: max assist today LTG Duration 12/30/19 Three Impairment weakness left UE and LE s/p CVA Detention Goal (LTG) Improve functional strength in left LE, as evidenced by ability to move from sit > < stand without use of UE's. Request OT for left UE rehab. 10/31/19: OT starts tomorrow. Good progress with sit to stand, though mostly using right UE and LE LTG Duration 12/30/19 Two Impairment balance dysfunction with high risk for falls Cafeteria Manager Goal (LTG) Improve balance as evidenced by improvement in Tinnetti balance and gait score to low fall risk range to improve safety in the home and community. 10/31/19: remains high risk for falls LTG Duration 12/30/19 One Impairment requires morro-walker for gait, limited to household gait Detention Goal (LTG) Patient able to ambulate with least restrictive device for functional community distances to improve her functional independence and quality of life. 10/30/19: no progress due to Covid 19. LTG Duration 12/30/19 Progress Towards Goals Progress Towards Goals Slow Progress - Other Assessment Summary Assessment Slow progress without PT due to Covid19. Goals remain the same for improvement in balance, gait, strength, and functional mobility. Will need to do caregiver training as well. Physical Therapy Plan Frequency and Duration Frequency of Treatment 2x/Week Duration of Treatment 12 wks Plan of Care Start Date 10/31/19 Plan of Care End Date 12/30/19 Therapeutic Interventions Therapeutic Interventions Aquatic Therapy,Balance Training,Gait Training,Home Exercise Program,Neuromuscular Re-education,Orthotic/ Prosthetic Management,Patient/ Caregiver Education,Self-Care/ Home Management,Taping, Therapeutic Activities, Therapeutic Exercises Modalities Cold Pack/Ice Massage,Hot Packs Next Visit Focus/Plan Next Note Type Treatment Note Next Visit Plan Review updated HEP, gait training on level and uneven surfaces, neur re-education activities for balance retraining. Will be starting in clinic, then transition to aquatic therapy when in Phase 3 of re[place]opening in state
--- NOTE | 2019-10-31 12:50 | PT.OPPOC ---
Physical, Occupational & Speech Therapy At [facility] Current Diagnoses Hemiplegia, unspecified affecting unspecified side (10/31/19) Difficulty in walking, not elsewhere classified (10/31/19) Weakness (10/31/19) History of falling (10/31/19) Visit Care Team Role Provider Type KINJAL Cooper Attending Provider Advanced Program Director Group Work Primary Care Provider Specialty: [facility] Practice Address: [address] [place] [address], [id number] Email: [email or web address] Plan Of Care PT-OP-T Assessment and Plan Start: 05/28/19 08:11 Freq: Status: Active Protocol: Document 10/31/19 11:15 SAK (Rec: 10/31/19 11:57 SAK [id number]) Physical Therapy Assessment Goals Four Impairment requires assistance with bed mobility and transfers Short Term Goal (STG) Patient will be able to perform all bed mobility independently to improve her functional independence. 10/31/19: good goal progress STG Duration goal met Halfway Goal (LTG) Patient will be able to perform a floor transfer with SB to min assist 10/31/19: max assist today LTG Duration 12/30/19 Three Impairment weakness left UE and LE s/p CVA Halfway Goal (LTG) Improve functional strength in left LE, as evidenced by ability to move from sit > < stand without use of UE's. Request OT for left UE rehab. 10/31/19: OT starts tomorrow. Good progress with sit to stand, though mostly using right UE and LE LTG Duration 12/30/19 Two Impairment balance dysfunction with high risk for falls Threat Analyst Goal (LTG) Improve balance as evidenced by improvement in Tinnetti balance and gait score to low fall risk range to improve safety in the home and community. 10/31/19: remains high risk for falls LTG Duration 12/30/19 One Impairment requires armaan-walker for gait, limited to household gait Threat Analyst Goal (LTG) Patient able to ambulate with least restrictive device for functional community distances to improve her functional independence and quality of life. 10/30/19: no progress due to Covid 19. LTG Duration 12/30/19 Progress Towards Goals Progress Towards Goals Slow Progress - Other Assessment Summary Assessment Slow progress without PT due to Covid19. Goals remain the same for improvement in balance, gait, strength, and functional mobility. Will need to do caregiver training as well. Physical Therapy Plan Frequency and Duration Frequency of Treatment 2x/Week Duration of Treatment 12 wks Plan of Care Start Date 10/31/19 Plan of Care End Date 12/30/19 Therapeutic Interventions Therapeutic Interventions Aquatic Therapy,Balance Training,Gait Training,Home Exercise Program,Neuromuscular Re-education,Orthotic/ Prosthetic Management,Patient/ Caregiver Education,Self-Care/ Home Management,Taping, Therapeutic Activities, Therapeutic Exercises Modalities Cold Pack/Ice Massage,Hot Packs Next Visit Focus/Plan Next Note Type Treatment Note Next Visit Plan Review updated HEP, gait training on level and uneven surfaces, neur re-education activities for balance retraining. Will be starting in clinic, then transition to aquatic therapy when in Phase 3 of re-opening in state Plan of Care Dates Plan of Care Start Date 10/31/19 Plan of Care End Date 12/30/19 Electronically Signed by: Renetta Villarreal PT 10/31/19 [id number] Please Sign and Return: I have reviewed this Plan of Care and certify that the skilled therapy services above are required to meet the patient?s needs. Physician Signature Date Printed Name and Credentials Clinical Instructor Signature Printed Name and Credentials
--- NOTE | 2019-11-12 12:14 | PT.OTN ---
Current Diagnoses Hemiplegia, unspecified affecting unspecified side (11/12/19) Difficulty in walking, not elsewhere classified (11/12/19) Weakness (11/12/19) History of falling (11/12/19) Physical Therapy Treatment Note PT-OP-A Visit Information Start: 05/28/19 08:11 Freq: Status: Active Protocol: Document 11/12/19 10:32 SAK (Rec: 11/12/19 11:22 SAK [id number]) Out-Patient Physical Therapy Visit Information Visit Information Visit Type Treatment Note Visit Start Time 10:30 Visit Stop Time 11:15 Total Visit Minutes 45 Visit Number 17 Number of COSTUMING SUPERVISOR Visits 0 PT-OP-B Current Condition Start: 05/28/19 08:11 Freq: Status: Active Protocol: Document 10/31/19 11:15 SAK (Rec: 10/31/19 11:57 SAK [id number]) Current Condition History of Current Condition Onset Date 2014 Current Complaints weakness, requires assistance with all mobility and household tasks History of Current Condition Reports that she suffered a stroke in 2014 after surgery for brain aneurysm. CVA caused weakness on the left side of her body, gait and balance difficulty, seizures. Treatment Goals Patient/Caregiver Goals Improve strength, get faster with walking including on stairs, improve balance. PT-OP-C Subjective Start: 05/28/19 08:11 Freq: Status: Active Protocol: Document 10/31/19 11:15 SAK (Rec: 10/31/19 11:57 SAK [id number]) OP-PT Subjective Patient Comments Patient Comments Reports feeling weaker since last seen in PT 3 months ago, had felt like aquatic therapy was really helping her, but due to Covid19 hasn't been able to have PT. Has been doing some exercises at home: squats, sidestepping,marching in place, stairs occasionally , starts IRG for occupational therapy tomorrow. Using mostly quad cane or single point cane with hurry cane bottom. Had fall recently when dog ran into her; had to call 911 for assistance due to inability to get up off floor PT-OP-D Balance Start: 05/28/19 08:11 Freq: Status: Active Protocol: Document 05/29/19 14:30 SAK (Rec: 05/30/19 14:24 SAK [id number]) OP-PT Balance Assessment Sitting Balance Static Sitting Balance Ability Good Dynamic Sitting Balance Ability Fair Standing Balance Static Standing Balance Ability Good Dynamic Standing Balance Ability Fair Device Used hemiwalker right Tinetti Balance Assessment Sitting Balance Sitting Balance Steady, safe Arising from Chair Attempts to Arise Able, requires >1 attempt Standing Balance Immediate Standing Balance Steady with support Standing Balance Steady, wide stance Nudged Response Begins to fall Standing with Eyes Closed Unsteady Turning Step Pattern Turning 360 Degrees Discontinuous steps Stability Turning 360 Degrees Unsteady, grabs/staggers Sitting Down Sitting Down Uses arms or unsteady Gait and Step Initiation of Gait Hesitancy, mult. attempts Right Foot Step Length Does not pass stance ft. Right Foot Step Height Does not clear floor Left Foot Step Length Does not pass stance foot Left Foot Step Height Does not clear floor Step Description Step Symmetry Step length not equal Gait Description Path Description Mild/moderate deviation Trunk Description Marked sway or uses aide Walking Stance Heels apart Scoring and Interpretation Tinetti Composite Score (points) 6 Interpretation of Scores High risk for falls(< 19) Herrera Fall Scale Copyright Permission PT-OP-G Mobility & Gait Start: 05/28/19 08:11 Freq: Status: Active Protocol: Document 05/29/19 14:30 [facility] (Rec: 05/30/19 14:24 [facility] [id number]) OP Mobility Evaluation Bed Mobility Rolling min assist Supine to and from Sit min assist Transfers Sit to Stand uses right UE Bed to Chair Transfers uses right UE Floor Transfers unable Functional Movements Squats uses primarily right LE OP Gait Assessment Gait Gait Assistance Required: Standby Assistance Distance (Feet) 20 Assistive Devices Assistive Device Morro Walker Orthotic/Prosthetic Devices or Brace: Yes Gait Deviations General Gait Pattern Decreased Stride Length, Decreased Feet Clearance, Lateral Trunk Lean,Wide Based Gait Factors Limiting Gait Function Factors Limiting Gait Function Abnormal Tonal Influences, Decreased Strength PT-OP-H Neuro Start: 05/28/19 08:11 Freq: Status: Active Protocol: Document 05/29/19 14:30 [facility] (Rec: 05/30/19 14:24 [facility] [id number]) Sensation Evaluation Gross Sensation Gross Sensation Left UE Impaired,Left LE Impaired Sensation Description Paresthesia,Numbness Coordination Evaluation Lower Extremity Tests Left Alternate Heel to Knee; Heel to Toe Test Moderate Impairment Heel on Boles Test Moderate Impairment Foot Tapping Test Moderate Impairment PT-OP-K Range of Motion Start: 05/28/19 08:11 Freq: Status: Active Protocol: Document 05/29/19 14:30 [facility] (Rec: 05/30/19 14:24 [facility] [id number]) Hip Goniometric Range of Motion Hip jake Hip ROM WFL Yes Knee Goniometric Range of Motion Knee jake Knee ROM WFL Yes Ankle and Foot Goniometric Range of Motion Ankle and Foot Left Active Ankle/Foot ROM WFL No Right Ankle/Foot ROM WFL Yes Ankle and Foot ROM Limitations Comments left ankle df -5, right 5 PT-OP-M Strength Start: 05/28/19 08:11 Freq: Status: Active Protocol: Document 05/29/19 14:30 [facility] (Rec: 05/30/19 14:24 [facility] [id number]) Hip Strength Hip Manual Muscle Testing Left Flexion (L2) 3- Fair- Extension (S1) 2 Poor Abduction 2+ Poor+ External Rotation 3- Fair- Internal Rotation 3+ Fair+ Right Flexion (L2) 4 Good Extension (S1) 4- Good- Abduction 4 Good External Rotation 3+ Fair+ Internal Rotation 4- Good- Knee Strength Knee Manual Muscle Testing Left Flexion (S2) 3 Fair Extension (L3) 3+ Fair+ Right Flexion (S2) 4+ Good+ Extension (L3) 4+ Good+ Ankle/Foot Strength Ankle and Foot Manual Muscle Testing Left Dorsiflexion (L4) 0 Zero Plantarflexion (S1) 0 Zero Right Dorsiflexion (L4) 4+ Good+ Plantarflexion (S1) 4+ Good+ PT-OP-Q Treatments Start: 05/28/19 08:11 Freq: Status: Active Protocol: Document 11/12/19 10:32 [facility] (Rec: 11/12/19 11:22 [facility] [id number]) Cardio Equipment Recumbent Stepper (Sci-Fit) Duration (Minutes) 7 Resistance 1.0 Seat Position 8 Other 0.5 miles Therapeutic Exercises Standing Exercises step ups Standing Exercise Name RHR up/down min A for LLE IR for proper knee alignment Equipment Used R HR Reps/Minutes x5 lead each LE Comments CGA, improved L knee flexion. sit to stands Reps/Minutes 10x Comments manual cues for lefty LE alignment and muscle activation Neuro Re-Education Treatment Balance Activities foam stand Surface 4 foam Reps/Duration 10 x each LE Comments manual guidance for LE alignment Self-Care/Home Management Treatment Education Patient Education Home Exercise Program Other Education written HEP PT-OP-S Aquatic Treatment Start: 05/28/19 08:11 Freq: Status: Active Protocol: Document 07/13/19 10:15 NILAY (Rec: 07/13/19 15:03 NILAY [id number]) Aquatics Treatment Pool Entry/Exit Pool Entry/Exit Method Lift Assistance Minimal Assistance Water Walking Marching Water Level Chest Level Walking Equipment Ankle Weight- 2.5#, sm float on LUE, sm [place] float Level of Assistance Contact Guard Assistance, Minimal Assistance,Verbal Cues Sideways Water Level Chest Level Walking Equipment Ankle Weight- 2.5#, sm float on LUE Level of Assistance Contact Guard Assistance, Minimal Assistance,Verbal Cues Forwards Water Level Chest Level Walking Equipment Ankle Weight- 2.5#, sm float on LUE Level of Assistance Contact Guard Assistance, Minimal Assistance,Verbal Cues Lower Extremity Exercises pushing off wall with uni and bilateral LEs Details supine with feet against wall Body Position Supine Equipment neck and hip floats Reps/Duration 10 bilateral and 10 LLE Comments stabilizing at left knee to prevent lateral rotation left hip flex/ext Details standing on box with right foot Body Position Standing Water Level Waist Level Equipment Ankle Weight- 2.5# Reps/Duration 10 Comments manual assist for maintaining knee extension weight shifting staggard stance Details HH on wall Body Position Standing Water Level Waist Level Equipment Ankle Weight- 2.5#, sm float on LUE Comments assist with bracing left knee SLS LLE Details HH on wall Body Position Standing Water Level Waist Level Equipment Ankle Weight- 2.5#, sm float on LUE Reps/Duration [id number] sec Comments assist with bracing LLE, weight [id number] Details at wall Body Position Standing Water Level Waist Level Equipment Ankle Weight- 2.5#, sm float on LUE Comments assist with bracing left knee Upper Extremity Exercises pull downs Details standing at wall Water Level Chest Level Equipment BBs Reps/Duration 10 Comments assist with LUE HABD/HADD with long BB Body Position Standing Water Level Chest Level Reps/Duration 12x Comments assist with left hand on BB push pull Details back against wall Body Position Standing Water Level Waist Level Equipment lg BB Reps/Duration 10x Spinal Exercises Bad Ragaz Details trunk stabilization Body Position Supine Equipment Neck Float, hip float, arm float, LE floats Reps/Duration 2 min Manual Techniques Bad Ragaz hip ab/ad with manual resistance supine PT-OP-T Assessment and Plan Start: 05/28/19 08:11 Freq: Status: Active Protocol: Document 11/12/19 10:32 KRYSTAL (Rec: 11/12/19 11:22 KRYSTAL [id number]) Physical Therapy Assessment Goals Four Impairment requires assistance with bed mobility and transfers Short Term Goal (STG) Patient will be able to perform all bed mobility independently to improve her functional independence. 10/31/19: good goal progress STG Duration goal met Vibrator Equipment Tester Goal (LTG) Patient will be able to perform a floor transfer with SB to min assist 10/31/19: max assist today LTG Duration 12/30/19 Three Impairment weakness left UE and LE s/p CVA Correction Goal (LTG) Improve functional strength in left LE, as evidenced by ability to move from sit > < stand without use of UE's. Request OT for left UE rehab. 10/31/19: OT starts tomorrow. Good progress with sit to stand, though mostly using right UE and LE LTG Duration 12/30/19 Two Impairment balance dysfunction with high risk for falls Vibrator Equipment Tester Goal (LTG) Improve balance as evidenced by improvement in Tinnetti balance and gait score to low fall risk range to improve safety in the home and community. 10/31/19: remains high risk for falls LTG Duration 12/30/19 One Impairment requires morro-walker for gait, limited to household gait Vibrator Equipment Tester Goal (LTG) Patient able to ambulate with least restrictive device for functional community distances to improve her functional independence and quality of life. 10/30/19: no progress due to Covid 19. LTG Duration 12/30/19 Assessment Summary Assessment Patient receptive to verbal and manual cues regarding left LE alignment and weight- bearing with all gait and exercises. Issued pictures for HEP. Patient left neglect both UE and LE with UE flaccid, going to IRG OT. Physical Therapy Plan Frequency and Duration Frequency of Treatment 2x/Week Duration of Treatment 12 wks Plan of Care Start Date 10/31/19 Plan of Care End Date 12/30/19 Therapeutic Interventions Therapeutic Interventions Aquatic Therapy,Balance Training,Gait Training,Home Exercise Program,Neuromuscular Re-education,Orthotic/ Prosthetic Management,Patient/ Caregiver Education,Self-Care/ Home Management,Taping, Therapeutic Activities, Therapeutic Exercises Modalities Cold Pack/Ice Massage,Hot Packs Next Visit Focus/Plan Next Note Type Treatment Note Next Visit Plan Continue PT for gait training, balance, neuro-reeducatioin.
--- NOTE | 2019-11-15 10:30 | PT.OTN ---
Current Diagnoses Hemiplegia, unspecified affecting unspecified side (11/15/19) Difficulty in walking, not elsewhere classified (11/15/19) Weakness (11/15/19) History of falling (11/15/19) Physical Therapy Treatment Note PT-OP-A Visit Information Start: 05/28/19 08:11 Freq: Status: Active Protocol: Document 11/15/19 09:48 SP (Rec: 11/15/19 10:33 SP [id number]) Out-Patient Physical Therapy Visit Information Visit Information Visit Type Treatment Note Visit Start Time 09:48 Visit Stop Time 10:30 Total Visit Minutes 42 Visit Number 18 Number of FOUNDER AND PRESIDENT Visits 1 PT-OP-B Current Condition Start: 05/28/19 08:11 Freq: Status: Active Protocol: Document 10/31/19 11:15 SAK (Rec: 10/31/19 11:57 SAK [id number]) Current Condition History of Current Condition Onset Date 2014 Current Complaints weakness, requires assistance with all mobility and household tasks History of Current Condition Reports that she suffered a stroke in 2014 after surgery for brain aneurysm. CVA caused weakness on the left side of her body, gait and balance difficulty, seizures. Treatment Goals Patient/Caregiver Goals Improve strength, get faster with walking including on stairs, improve balance. PT-OP-C Subjective Start: 05/28/19 08:11 Freq: Status: Active Protocol: Document 11/15/19 09:48 SP (Rec: 11/15/19 10:33 SP [id number]) OP-PT Subjective Patient Comments Patient Comments Pt reported still little sore from last tx, forgot to take a Tylenol before left . Has a new quad cane want to look at. 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 PT-OP-D Balance Start: 05/28/19 08:11 Freq: Status: Active Protocol: Document 05/29/19 14:30 SAK (Rec: 05/30/19 14:24 SAK [id number]) OP-PT Balance Assessment Sitting Balance Static Sitting Balance Ability Good Dynamic Sitting Balance Ability Fair Standing Balance Static Standing Balance Ability Good Dynamic Standing Balance Ability Fair Device Used hemiwalker right Tinetti Balance Assessment Sitting Balance Sitting Balance Steady, safe Arising from Chair Attempts to Arise Able, requires >1 attempt Standing Balance Immediate Standing Balance Steady with support Standing Balance Steady, wide stance Nudged Response Begins to fall Standing with Eyes Closed Unsteady Turning Step Pattern Turning 360 Degrees Discontinuous steps Stability Turning 360 Degrees Unsteady, grabs/staggers Sitting Down Sitting Down Uses arms or unsteady Gait and Step Initiation of Gait Hesitancy, mult. attempts Right Foot Step Length Does not pass stance ft. Right Foot Step Height Does not clear floor Left Foot Step Length Does not pass stance foot Left Foot Step Height Does not clear floor Step Description Step Symmetry Step length not equal Gait Description Path Description Mild/moderate deviation Trunk Description Marked sway or uses aide Walking Stance Heels apart Scoring and Interpretation Tinetti Composite Score (points) 6 Interpretation of Scores High risk for falls(< 19) Herrera Fall Scale Copyright Permission PT-OP-G Mobility & Gait Start: 05/28/19 08:11 Freq: Status: Active Protocol: Document 05/29/19 14:30 [facility] (Rec: 05/30/19 14:24 [facility] [id number]) OP Mobility Evaluation Bed Mobility Rolling min assist Supine to and from Sit min assist Transfers Sit to Stand uses right UE Bed to Chair Transfers uses right UE Floor Transfers unable Functional Movements Squats uses primarily right LE OP Gait Assessment Gait Gait Assistance Required: Standby Assistance Distance (Feet) 20 Assistive Devices Assistive Device Morro Walker Orthotic/Prosthetic Devices or Brace: Yes Gait Deviations General Gait Pattern Decreased Stride Length, Decreased Feet Clearance, Lateral Trunk Lean,Wide Based Gait Factors Limiting Gait Function Factors Limiting Gait Function Abnormal Tonal Influences, Decreased Strength PT-OP-H Neuro Start: 05/28/19 08:11 Freq: Status: Active Protocol: Document 05/29/19 14:30 [facility] (Rec: 05/30/19 14:24 [facility] [id number]) Sensation Evaluation Gross Sensation Gross Sensation Left UE Impaired,Left LE Impaired Sensation Description Paresthesia,Numbness Coordination Evaluation Lower Extremity Tests Left Alternate Heel to Knee; Heel to Toe Test Moderate Impairment Heel on Boles Test Moderate Impairment Foot Tapping Test Moderate Impairment PT-OP-K Range of Motion Start: 05/28/19 08:11 Freq: Status: Active Protocol: Document 05/29/19 14:30 [facility] (Rec: 05/30/19 14:24 [facility] [id number]) Hip Goniometric Range of Motion Hip jake Hip ROM WFL Yes Knee Goniometric Range of Motion Knee jake Knee ROM WFL Yes Ankle and Foot Goniometric Range of Motion Ankle and Foot Left Active Ankle/Foot ROM WFL No Right Ankle/Foot ROM WFL Yes Ankle and Foot ROM Limitations Comments left ankle df -5, right 5 PT-OP-M Strength Start: 05/28/19 08:11 Freq: Status: Active Protocol: Document 05/29/19 14:30 SAK (Rec: 05/30/19 14:24 SAK [id number]) Hip Strength Hip Manual Muscle Testing Left Flexion (L2) 3- Fair- Extension (S1) 2 Poor Abduction 2+ Poor+ External Rotation 3- Fair- Internal Rotation 3+ Fair+ Right Flexion (L2) 4 Good Extension (S1) 4- Good- Abduction 4 Good External Rotation 3+ Fair+ Internal Rotation 4- Good- Knee Strength Knee Manual Muscle Testing Left Flexion (S2) 3 Fair Extension (L3) 3+ Fair+ Right Flexion (S2) 4+ Good+ Extension (L3) 4+ Good+ Ankle/Foot Strength Ankle and Foot Manual Muscle Testing Left Dorsiflexion (L4) 0 Zero Plantarflexion (S1) 0 Zero Right Dorsiflexion (L4) 4+ Good+ Plantarflexion (S1) 4+ Good+ PT-OP-Q Treatments Start: 05/28/19 08:11 Freq: Status: Active Protocol: Document 11/15/19 09:48 SP (Rec: 11/15/19 10:33 SP [id number]) Cardio Equipment Recumbent Elliptical (Biodex) Duration (Minutes) 8 Resistance 2 Seat Position 4 Other cued L knee more adduction control provded occasiona A 1/ 2 time when tired. Gait Training Gait Activity stair mgt Description forwad/ lateral Device Used R HR,gait belt Level of Assistance CGA (see prior tx used quad cane) Surface 6 step descend step to gait Comments cued for L foot alignment with self corrections ascend, Roberto descend to assist L knee alignment. Neuro Re-Education Treatment Balance Activities foam stand Surface 4 foam Reps/Duration 10 x each LE Comments manual guidance for LE alignment NBOS, modified tandem Surface foam pad Equipment raised table contact support Comments EO, EC, head turns PT-OP-S Aquatic Treatment Start: 05/28/19 08:11 Freq: Status: Active Protocol: Document 07/13/19 10:15 LJ (Rec: 07/13/19 15:03 NILAY [id number]) Aquatics Treatment Pool Entry/Exit Pool Entry/Exit Method Lift Assistance Minimal Assistance Water Walking Marching Water Level Chest Level Walking Equipment Ankle Weight- 2.5#, sm float on LUE, sm [place] float Level of Assistance Contact Guard Assistance, Minimal Assistance,Verbal Cues Sideways Water Level Chest Level Walking Equipment Ankle Weight- 2.5#, sm float on LUE Level of Assistance Contact Guard Assistance, Minimal Assistance,Verbal Cues Forwards Water Level Chest Level Walking Equipment Ankle Weight- 2.5#, sm float on LUE Level of Assistance Contact Guard Assistance, Minimal Assistance,Verbal Cues Lower Extremity Exercises pushing off wall with uni and bilateral LEs Details supine with feet against wall Body Position Supine Equipment neck and hip floats Reps/Duration 10 bilateral and 10 LLE Comments stabilizing at left knee to prevent lateral rotation left hip flex/ext Details standing on box with right foot Body Position Standing Water Level Waist Level Equipment Ankle Weight- 2.5# Reps/Duration 10 Comments manual assist for maintaining knee extension weight shifting staggard stance Details HH on wall Body Position Standing Water Level Waist Level Equipment Ankle Weight- 2.5#, sm float on LUE Comments assist with bracing left knee SLS LLE Details HH on wall Body Position Standing Water Level Waist Level Equipment Ankle Weight- 2.5#, sm float on LUE Reps/Duration 2e78-30 sec Comments assist with bracing LLE, weight [id number] Details at wall Body Position Standing Water Level Waist Level Equipment Ankle Weight- 2.5#, sm float on LUE Comments assist with bracing left knee Upper Extremity Exercises pull downs Details standing at wall Water Level Chest Level Equipment BBs Reps/Duration 10 Comments assist with LUE HABD/HADD with long BB Body Position Standing Water Level Chest Level Reps/Duration 12x Comments assist with left hand on BB push pull Details back against wall Body Position Standing Water Level Waist Level Equipment lg BB Reps/Duration 10x Spinal Exercises Bad Ragaz Details trunk stabilization Body Position Supine Equipment Neck Float, hip float, arm float, LE floats Reps/Duration 2 min Manual Techniques Bad Ragaz hip ab/ad with manual resistance supine PT-OP-T Assessment and Plan Start: 05/28/19 08:11 Freq: Status: Active Protocol: Document 07/09/20 09:48 SP (Rec: 11/15/19 10:33 SP [id number]) Physical Therapy Assessment Goals Four Impairment requires assistance with bed mobility and transfers Short Term Goal (STG) Patient will be able to perform all bed mobility independently to improve her functional independence. 10/31/19: good goal progress STG Duration goal met Snf Goal (LTG) Patient will be able to perform a floor transfer with SB to min assist 10/31/19: max assist today LTG Duration 12/30/19 Three Impairment weakness left UE and LE s/p CVA Snf Goal (LTG) Improve functional strength in left LE, as evidenced by ability to move from sit > < stand without use of UE's. Request OT for left UE rehab. 10/31/19: OT starts tomorrow. Good progress with sit to stand, though mostly using right UE and LE LTG Duration 12/30/19 Two Impairment balance dysfunction with high risk for falls Snf Goal (LTG) Improve balance as evidenced by improvement in Tinnetti balance and gait score to low fall risk range to improve safety in the home and community. 10/31/19: remains high risk for falls LTG Duration 12/30/19 One Impairment requires morro-walker for gait, limited to household gait [employer] Biology Teacher Goal (LTG) Patient able to ambulate with least restrictive device for functional community distances to improve her functional independence and quality of life. 10/30/19: no progress due to Covid 19. LTG Duration 12/30/19 Assessment Summary Assessment Pt good follow through with verbal and occasional manual assist cuing for LLE realignment during gym equip and standing activities. Readjusted new black quad cane to proper height. Pt improved with LLe alignment during forward/backward and lateral stepping, Min A duirng standing balance activity with SUPERVISOR LEAF SPRING REPAIR RUE foam cushion. Physical Therapy Plan Frequency and Duration Frequency of Treatment 2x/Week Duration of Treatment 12 wks Plan of Care Start Date 10/31/19 Plan of Care End Date 12/30/19 Therapeutic Interventions Therapeutic Interventions Aquatic Therapy,Balance Training,Gait Training,Home Exercise Program,Neuromuscular Re-education,Orthotic/ Prosthetic Management,Patient/ Caregiver Education,Self-Care/ Home Management,Taping, Therapeutic Activities, Therapeutic Exercises Modalities Cold Pack/Ice Massage,Hot Packs Next Visit Focus/Plan Next Note Type Treatment Note Next Visit Plan Assess response to last tx. PT to discuss R AFO concerns next tx. Continue PT for gait training, balance, neuro-reeducatioin.
--- NOTE | 2019-11-19 16:31 | PT.OTN ---
Current Diagnoses Hemiplegia, unspecified affecting unspecified side (11/19/19) Difficulty in walking, not elsewhere classified (11/19/19) Weakness (11/19/19) History of falling (11/19/19) Physical Therapy Treatment Note PT-OP-A Visit Information Start: 05/28/19 08:11 Freq: Status: Active Protocol: Document 11/19/19 10:28 SAK (Rec: 11/19/19 11:16 SAK [id number]) Out-Patient Physical Therapy Visit Information Visit Information Visit Type Treatment Note Visit Start Time 10:30 Visit Stop Time 11:15 Total Visit Minutes 45 Visit Number 19 Number of GARNETT FEEDER Visits 0 PT-OP-B Current Condition Start: 05/28/19 08:11 Freq: Status: Active Protocol: Document 10/31/19 11:15 SAK (Rec: 10/31/19 11:57 SAK [id number]) Current Condition History of Current Condition Onset Date 2014 Current Complaints weakness, requires assistance with all mobility and household tasks History of Current Condition Reports that she suffered a stroke in 2014 after surgery for brain aneurysm. CVA caused weakness on the left side of her body, gait and balance difficulty, seizures. Treatment Goals Patient/Caregiver Goals Improve strength, get faster with walking including on stairs, improve balance. PT-OP-C Subjective Start: 05/28/19 08:11 Freq: Status: Active Protocol: Document 11/19/19 10:28 SAK (Rec: 11/19/19 11:16 [facility] [id number]) OP-PT Subjective Patient Comments Patient Comments Wants to be assessed for need for new AFO. Likes using straight cane instead of quad cane. PT-OP-D Balance Start: 05/28/19 08:11 Freq: Status: Active Protocol: Document 05/29/19 14:30 SAK (Rec: 05/30/19 14:24 [facility] [id number]) OP-PT Balance Assessment Sitting Balance Static Sitting Balance Ability Good Dynamic Sitting Balance Ability Fair Standing Balance Static Standing Balance Ability Good Dynamic Standing Balance Ability Fair Device Used [place] [place] right Tinetti Balance Assessment Sitting Balance Sitting Balance Steady, safe Arising from Chair Attempts to Arise Able, requires >1 attempt Standing Balance Immediate Standing Balance Steady with support Standing Balance Steady, wide stance Nudged Response Begins to fall Standing with Eyes Closed Unsteady Turning Step Pattern Turning 360 Degrees Discontinuous steps Stability Turning 360 Degrees Unsteady, grabs/staggers Sitting Down Sitting Down Uses arms or unsteady Gait and Step Initiation of Gait Hesitancy, mult. attempts Right Foot Step Length Does not pass stance ft. Right Foot Step Height Does not clear floor Left Foot Step Length Does not pass stance foot Left Foot Step Height Does not clear floor Step Description Step Symmetry Step length not equal Gait Description Path Description Mild/moderate deviation Trunk Description Marked sway or uses aide Walking Stance Heels apart Scoring and Interpretation Tinetti Composite Score (points) 6 Interpretation of Scores High risk for falls(< 19) Herrera Fall Scale Copyright Permission PT-OP-G Mobility & Gait Start: 05/28/19 08:11 Freq: Status: Active Protocol: Document 05/29/19 14:30 [facility] (Rec: 05/30/19 14:24 [facility] [id number]) OP Mobility Evaluation Bed Mobility Rolling min assist Supine to and from Sit min assist Transfers Sit to Stand uses right UE Bed to Chair Transfers uses right UE Floor Transfers unable Functional Movements Squats uses primarily right LE OP Gait Assessment Gait Gait Assistance Required: Standby Assistance Distance (Feet) 20 Assistive Devices Assistive Device Morro Walker Orthotic/Prosthetic Devices or Brace: Yes Gait Deviations General Gait Pattern Decreased Stride Length, Decreased Feet Clearance, Lateral Trunk Lean,Wide Based Gait Factors Limiting Gait Function Factors Limiting Gait Function Abnormal Tonal Influences, Decreased Strength PT-OP-H Neuro Start: 05/28/19 08:11 Freq: Status: Active Protocol: Document 05/29/19 14:30 [facility] (Rec: 05/30/19 14:24 [facility] [id number]) Sensation Evaluation Gross Sensation Gross Sensation Left UE Impaired,Left LE Impaired Sensation Description Paresthesia,Numbness Coordination Evaluation Lower Extremity Tests Left Alternate Heel to Knee; Heel to Toe Test Moderate Impairment Heel on Boles Test Moderate Impairment Foot Tapping Test Moderate Impairment PT-OP-K Range of Motion Start: 05/28/19 08:11 Freq: Status: Active Protocol: Document 05/29/19 14:30 [facility] (Rec: 05/30/19 14:24 [facility] [id number]) Hip Goniometric Range of Motion Hip jake Hip ROM WFL Yes Knee Goniometric Range of Motion Knee jake Knee ROM WFL Yes Ankle and Foot Goniometric Range of Motion Ankle and Foot Left Active Ankle/Foot ROM WFL No Right Ankle/Foot ROM WFL Yes Ankle and Foot ROM Limitations Comments left ankle df -5, right 5 PT-OP-M Strength Start: 05/28/19 08:11 Freq: Status: Active Protocol: Document 05/29/19 14:30 [facility] (Rec: 05/30/19 14:24 [facility] [id number]) Hip Strength Hip Manual Muscle Testing Left Flexion (L2) 3- Fair- Extension (S1) 2 Poor Abduction 2+ Poor+ External Rotation 3- Fair- Internal Rotation 3+ Fair+ Right Flexion (L2) 4 Good Extension (S1) 4- Good- Abduction 4 Good External Rotation 3+ Fair+ Internal Rotation 4- Good- Knee Strength Knee Manual Muscle Testing Left Flexion (S2) 3 Fair Extension (L3) 3+ Fair+ Right Flexion (S2) 4+ Good+ Extension (L3) 4+ Good+ Ankle/Foot Strength Ankle and Foot Manual Muscle Testing Left Dorsiflexion (L4) 0 Zero Plantarflexion (S1) 0 Zero Right Dorsiflexion (L4) 4+ Good+ Plantarflexion (S1) 4+ Good+ PT-OP-Q Treatments Start: 05/28/19 08:11 Freq: Status: Active Protocol: Document 11/19/19 10:28 [facility] (Rec: 11/19/19 11:16 [facility] [id number]) Cardio Equipment Recumbent Stepper (Sci-Fit) Duration (Minutes) 6 Resistance 1.0 Seat Position 8 Other 0.6 miles Therapeutic Exercises Standing Exercises step ups Standing Exercise Name RHR up/down min A for LLE IR for proper knee alignment Equipment Used R HR Reps/Minutes x5 lead each LE Comments CGA, improved L knee flexion. f/b/side stepping Standing Exercise Name f/b/side stepping Equipment Used SPC Reps/Minutes 10 ft x1 laps each direction sit to stands Reps/Minutes 10x Comments manual cues for lefty LE alignment and muscle activation Gait Training Gait Activity 1 Description level surface Device Used Straight cane, gait belt Distance/Duration 70 ft, 100ft Treatment Focus L hip IR and foot clearance, increased step dave gth right Comments close SBA, occasional cuing for L hip IR midline alignment during heel strike and into mid stance sequence self corrections Neuro Re-Education Treatment Balance Activities balloon volleyball Equipment blue foam Comments parallel bars NBOS, modified tandem Surface foam pad Equipment raised table contact support Comments EO, EC, head turns PT-OP-S Aquatic Treatment Start: 05/28/19 08:11 Freq: Status: Active Protocol: Document 07/13/19 10:15 NILAY (Rec: 07/13/19 15:03 NILAY [id number]) Aquatics Treatment Pool Entry/Exit Pool Entry/Exit Method Lift Assistance Minimal Assistance Water Walking Marching Water Level Chest Level Walking Equipment Ankle Weight- 2.5#, sm float on LUE, sm [place] float Level of Assistance Contact Guard Assistance, Minimal Assistance,Verbal Cues Sideways Water Level Chest Level Walking Equipment Ankle Weight- 2.5#, sm float on LUE Level of Assistance Contact Guard Assistance, Minimal Assistance,Verbal Cues Forwards Water Level Chest Level Walking Equipment Ankle Weight- 2.5#, sm float on LUE Level of Assistance Contact Guard Assistance, Minimal Assistance,Verbal Cues Lower Extremity Exercises pushing off wall with uni and bilateral LEs Details supine with feet against wall Body Position Supine Equipment neck and hip floats Reps/Duration 10 bilateral and 10 LLE Comments stabilizing at left knee to prevent lateral rotation left hip flex/ext Details standing on box with right foot Body Position Standing Water Level Waist Level Equipment Ankle Weight- 2.5# Reps/Duration 10 Comments manual assist for maintaining knee extension weight shifting staggard stance Details HH on wall Body Position Standing Water Level Waist Level Equipment Ankle Weight- 2.5#, sm float on LUE Comments assist with bracing left knee SLS LLE Details HH on wall Body Position Standing Water Level Waist Level Equipment Ankle Weight- 2.5#, sm float on LUE Reps/Duration [id number] sec Comments assist with bracing LLE, weight [id number] Details at wall Body Position Standing Water Level Waist Level Equipment Ankle Weight- 2.5#, sm float on LUE Comments assist with bracing left knee Upper Extremity Exercises pull downs Details standing at wall Water Level Chest Level Equipment BBs Reps/Duration 10 Comments assist with LUE HABD/HADD with long BB Body Position Standing Water Level Chest Level Reps/Duration 12x Comments assist with left hand on BB push pull Details back against wall Body Position Standing Water Level Waist Level Equipment lg BB Reps/Duration 10x Spinal Exercises Bad Ragaz Details trunk stabilization Body Position Supine Equipment Neck Float, hip float, arm float, LE floats Reps/Duration 2 min Manual Techniques Bad Ragaz hip ab/ad with manual resistance supine PT-OP-T Assessment and Plan Start: 05/28/19 08:11 Freq: Status: Active Protocol: Document 11/19/19 10:28 KRSYTAL (Rec: 11/19/19 11:16 KRYSTAL [id number]) Physical Therapy Assessment Goals Four Impairment requires assistance with bed mobility and transfers Short Term Goal (STG) Patient will be able to perform all bed mobility independently to improve her functional independence. 10/31/19: good goal progress STG Duration goal met Mcfp Goal (LTG) Patient will be able to perform a floor transfer with SB to min assist 10/31/19: max assist today LTG Duration 12/30/19 Three Impairment weakness left UE and LE s/p CVA Rf Manager Goal (LTG) Improve functional strength in left LE, as evidenced by ability to move from sit > < stand without use of UE's. Request OT for left UE rehab. 10/31/19: OT starts tomorrow. Good progress with sit to stand, though mostly using right UE and LE LTG Duration 12/30/19 Two Impairment balance dysfunction with high risk for falls Mcfp Goal (LTG) Improve balance as evidenced by improvement in Tinnetti balance and gait score to low fall risk range to improve safety in the home and community. 10/31/19: remains high risk for falls LTG Duration 12/30/19 One Impairment requires morro-walker for gait, limited to household gait Mcfp Goal (LTG) Patient able to ambulate with least restrictive device for functional community distances to improve her functional independence and quality of life. 10/30/19: no progress due to Covid 19. LTG Duration 12/30/19 Assessment Summary Assessment Feel patient would benefit from new AFO; velcro straps wearing out, space between heel and AFO with inability to adjust for improved fit and function. Patient given information regarding [facility], she plans to call her physician and consult with above clinic. Physical Therapy Plan Frequency and Duration Frequency of Treatment 2x/Week Duration of Treatment 12 wks Plan of Care Start Date 10/31/19 Plan of Care End Date 12/30/19 Therapeutic Interventions Therapeutic Interventions Aquatic Therapy,Balance Training,Gait Training,Home Exercise Program,Neuromuscular Re-education,Orthotic/ Prosthetic Management,Patient/ Caregiver Education,Self-Care/ Home Management,Taping, Therapeutic Activities, Therapeutic Exercises Modalities Cold Pack/Ice Massage,Hot Packs Next Visit Focus/Plan Next Note Type Treatment Note Next Visit Plan Continue PT for gait training, balance, neuro-reeducation. Consider use of theraband for facilitation of hip IR with gait
--- NOTE | 2019-11-22 10:35 | PT.OTN ---
Current Diagnoses Hemiplegia, unspecified affecting unspecified side (11/22/19) Difficulty in walking, not elsewhere classified (11/22/19) Weakness (11/22/19) History of falling (11/22/19) Physical Therapy Treatment Note PT-OP-A Visit Information Start: 05/28/19 08:11 Freq: Status: Active Protocol: Document 11/22/19 09:50 SP (Rec: 11/22/19 11:54 SP [id number]) Out-Patient Physical Therapy Visit Information Visit Information Visit Type Treatment Note Visit Start Time 09:50 Visit Stop Time 10:35 Total Visit Minutes 45 Visit Number 20 Number of RESAW CARRIAGE OPERATOR Visits 1 PT-OP-B Current Condition Start: 05/28/19 08:11 Freq: Status: Active Protocol: Document 10/31/19 11:15 SAK (Rec: 10/31/19 11:57 SAK [id number]) Current Condition History of Current Condition Onset Date 2014 Current Complaints weakness, requires assistance with all mobility and household tasks History of Current Condition Reports that she suffered a stroke in 2014 after surgery for brain aneurysm. CVA caused weakness on the left side of her body, gait and balance difficulty, seizures. Treatment Goals Patient/Caregiver Goals Improve strength, get faster with walking including on stairs, improve balance. PT-OP-C Subjective Start: 05/28/19 08:11 Freq: Status: Active Protocol: Document 11/22/19 09:50 SP (Rec: 11/22/19 11:56 SP [id number]) OP-PT Subjective Patient Comments Patient Comments Pt reports very tired today and having hard time keeping LLE forward alignment. Wants to be able to do exercise bike , feels boosts her energy. Trying to find one for home. Wants PT to write up something to get a new AFO. PT-OP-D Balance Start: 05/28/19 08:11 Freq: Status: Active Protocol: Document 05/29/19 14:30 SAK (Rec: 05/30/19 14:24 SAK [id number]) OP-PT Balance Assessment Sitting Balance Static Sitting Balance Ability Good Dynamic Sitting Balance Ability Fair Standing Balance Static Standing Balance Ability Good Dynamic Standing Balance Ability Fair Device Used hemiwalker right Tinetti Balance Assessment Sitting Balance Sitting Balance Steady, safe Arising from Chair Attempts to Arise Able, requires >1 attempt Standing Balance Immediate Standing Balance Steady with support Standing Balance Steady, wide stance Nudged Response Begins to fall Standing with Eyes Closed Unsteady Turning Step Pattern Turning 360 Degrees Discontinuous steps Stability Turning 360 Degrees Unsteady, grabs/staggers Sitting Down Sitting Down Uses arms or unsteady Gait and Step Initiation of Gait Hesitancy, mult. attempts Right Foot Step Length Does not pass stance ft. Right Foot Step Height Does not clear floor Left Foot Step Length Does not pass stance foot Left Foot Step Height Does not clear floor Step Description Step Symmetry Step length not equal Gait Description Path Description Mild/moderate deviation Trunk Description Marked sway or uses aide Walking Stance Heels apart Scoring and Interpretation Tinetti Composite Score (points) 6 Interpretation of Scores High risk for falls(< 19) Herrera Fall Scale Copyright Permission PT-OP-G Mobility & Gait Start: 05/28/19 08:11 Freq: Status: Active Protocol: Document 05/29/19 14:30 [facility] (Rec: 05/30/19 14:24 [facility] [id number]) OP Mobility Evaluation Bed Mobility Rolling min assist Supine to and from Sit min assist Transfers Sit to Stand uses right UE Bed to Chair Transfers uses right UE Floor Transfers unable Functional Movements Squats uses primarily right LE OP Gait Assessment Gait Gait Assistance Required: Standby Assistance Distance (Feet) 20 Assistive Devices Assistive Device Morro Walker Orthotic/Prosthetic Devices or Brace: Yes Gait Deviations General Gait Pattern Decreased Stride Length, Decreased Feet Clearance, Lateral Trunk Lean,Wide Based Gait Factors Limiting Gait Function Factors Limiting Gait Function Abnormal Tonal Influences, Decreased Strength PT-OP-H Neuro Start: 05/28/19 08:11 Freq: Status: Active Protocol: Document 05/29/19 14:30 [facility] (Rec: 05/30/19 14:24 [facility] [id number]) Sensation Evaluation Gross Sensation Gross Sensation Left UE Impaired,Left LE Impaired Sensation Description Paresthesia,Numbness Coordination Evaluation Lower Extremity Tests Left Alternate Heel to Knee; Heel to Toe Test Moderate Impairment Heel on Boles Test Moderate Impairment Foot Tapping Test Moderate Impairment PT-OP-K Range of Motion Start: 05/28/19 08:11 Freq: Status: Active Protocol: Document 05/29/19 14:30 [facility] (Rec: 05/30/19 14:24 [facility] [id number]) Hip Goniometric Range of Motion Hip jake Hip ROM WFL Yes Knee Goniometric Range of Motion Knee jake Knee ROM WFL Yes Ankle and Foot Goniometric Range of Motion Ankle and Foot Left Active Ankle/Foot ROM WFL No Right Ankle/Foot ROM WFL Yes Ankle and Foot ROM Limitations Comments left ankle df -5, right 5 PT-OP-M Strength Start: 05/28/19 08:11 Freq: Status: Active Protocol: Document 05/29/19 14:30 SAK (Rec: 05/30/19 14:24 SAK [id number]) Hip Strength Hip Manual Muscle Testing Left Flexion (L2) 3- Fair- Extension (S1) 2 Poor Abduction 2+ Poor+ External Rotation 3- Fair- Internal Rotation 3+ Fair+ Right Flexion (L2) 4 Good Extension (S1) 4- Good- Abduction 4 Good External Rotation 3+ Fair+ Internal Rotation 4- Good- Knee Strength Knee Manual Muscle Testing Left Flexion (S2) 3 Fair Extension (L3) 3+ Fair+ Right Flexion (S2) 4+ Good+ Extension (L3) 4+ Good+ Ankle/Foot Strength Ankle and Foot Manual Muscle Testing Left Dorsiflexion (L4) 0 Zero Plantarflexion (S1) 0 Zero Right Dorsiflexion (L4) 4+ Good+ Plantarflexion (S1) 4+ Good+ PT-OP-Q Treatments Start: 05/28/19 08:11 Freq: Status: Active Protocol: Document 11/22/19 09:50 SP (Rec: 11/22/19 11:54 SP [id number]) Cardio Equipment Recumbent Elliptical ([employer]lickr) Duration (Minutes) 5 Resistance 2 Seat Position 4 Other cued occas. L knee adduction 1/2 time when tired. Therapeutic Exercises Standing Exercises step ups Standing Exercise Name RHR up/down min A for LLE IR for proper knee alignment Equipment Used R HR Reps/Minutes x5 lead each LE Comments CGA, improved L knee flexion. f/b/side stepping Standing Exercise Name f/b/side stepping Equipment Used //bar Reps/Minutes 10 ft x1 laps each direction Comments LLE tiring today quicker, used // bar for support sit to stands Reps/Minutes 10x Comments manual cues for lefty LE alignment and L quad activation Neuro Re-Education Treatment Balance Activities foam stand Details feet side by side w/ head turns Surface blue foam Reps/Duration static stand approx 3min CGA no UE support required Comments manual guidance as needed for LE alignment IR position to neutral PT-OP-S Aquatic Treatment Start: 05/28/19 08:11 Freq: Status: Active Protocol: Document 07/13/19 10:15 NILAY (Rec: 07/13/19 15:03 NILAY [id number]) Aquatics Treatment Pool Entry/Exit Pool Entry/Exit Method Lift Assistance Minimal Assistance Water Walking Marching Water Level Chest Level Walking Equipment Ankle Weight- 2.5#, sm float on LUE, sm lumbee float Level of Assistance Contact Guard Assistance, Minimal Assistance,Verbal Cues Sideways Water Level Chest Level Walking Equipment Ankle Weight- 2.5#, sm float on LUE Level of Assistance Contact Guard Assistance, Minimal Assistance,Verbal Cues Forwards Water Level Chest Level Walking Equipment Ankle Weight- 2.5#, sm float on LUE Level of Assistance Contact Guard Assistance, Minimal Assistance,Verbal Cues Lower Extremity Exercises pushing off wall with uni and bilateral LEs Details supine with feet against wall Body Position Supine Equipment neck and hip floats Reps/Duration 10 bilateral and 10 LLE Comments stabilizing at left knee to prevent lateral rotation left hip flex/ext Details standing on box with right foot Body Position Standing Water Level Waist Level Equipment Ankle Weight- 2.5# Reps/Duration 10 Comments manual assist for maintaining knee extension weight shifting staggard stance Details HH on wall Body Position Standing Water Level Waist Level Equipment Ankle Weight- 2.5#, sm float on LUE Comments assist with bracing left knee SLS LLE Details HH on wall Body Position Standing Water Level Waist Level Equipment Ankle Weight- 2.5#, sm float on LUE Reps/Duration [id number] sec Comments assist with bracing LLE, weight [id number]-side Details at wall Body Position Standing Water Level Waist Level Equipment Ankle Weight- 2.5#, sm float on LUE Comments assist with bracing left knee Upper Extremity Exercises pull downs Details standing at wall Water Level Chest Level Equipment BBs Reps/Duration 10 Comments assist with LUE HABD/HADD with long BB Body Position Standing Water Level Chest Level Reps/Duration 12x Comments assist with left hand on BB push pull Details back against wall Body Position Standing Water Level Waist Level Equipment lg BB Reps/Duration 10x Spinal Exercises Bad Ragaz Details trunk stabilization Body Position Supine Equipment Neck Float, hip float, arm float, LE floats Reps/Duration 2 min Manual Techniques Bad Issacaz hip ab/ad with manual resistance supine PT-OP-T Assessment and Plan Start: 05/28/19 08:11 Freq: Status: Active Protocol: Document 11/22/19 09:50 SP (Rec: 11/22/19 11:54 SP [id number]) Physical Therapy Assessment Goals Four Impairment requires assistance with bed mobility and transfers Short Term Goal (STG) Patient will be able to perform all bed mobility independently to improve her functional independence. 10/31/19: good goal progress STG Duration goal met Snf Goal (LTG) Patient will be able to perform a floor transfer with SB to min assist 10/31/19: max assist today LTG Duration 12/30/19 Three Impairment weakness left UE and LE s/p CVA Snf Goal (LTG) Improve functional strength in left LE, as evidenced by ability to move from sit > < stand without use of UE's. Request OT for left UE rehab. 10/31/19: OT starts tomorrow. Good progress with sit to stand, though mostly using right UE and LE LTG Duration 12/30/19 Two Impairment balance dysfunction with high risk for falls Kitchen Clerk Goal (LTG) Improve balance as evidenced by improvement in Tinnetti balance and gait score to low fall risk range to improve safety in the home and community. 10/31/19: remains high risk for falls LTG Duration 12/30/19 One Impairment requires morro-walker for gait, limited to household gait Snf Goal (LTG) Patient able to ambulate with least restrictive device for functional community distances to improve her functional independence and quality of life. 10/30/19: no progress due to Covid 19. LTG Duration 12/30/19 Assessment Summary Assessment Pt reported very tired today up on arrival and L hip ER needing increased awarenes of IR recorrection every step. Pt required R UE support on HR to step on/off foam cushion, able to stand on foam pad with CGA and cuing for increase wt shift in LLE and quad facilitation no UE support on HR needed. Pt improved IR L hip during gait upon leaving with no conscious effort or cuing. Pt ended with biodex with only cuing required for L hip IR alignement and LUE able to self support/grasp after 1 min of outside assist on handle. Physical Therapy Plan Frequency and Duration Frequency of Treatment 2x/Week Duration of Treatment 12 wks Plan of Care Start Date 10/31/19 Plan of Care End Date 12/30/19 Therapeutic Interventions Therapeutic Interventions Aquatic Therapy,Balance Training,Gait Training,Home Exercise Program,Neuromuscular Re-education,Orthotic/ Prosthetic Management,Patient/ Caregiver Education,Self-Care/ Home Management,Taping, Therapeutic Activities, Therapeutic Exercises Modalities Cold Pack/Ice Massage,Hot Packs Next Visit Focus/Plan Next Note Type Treatment Note Next Visit Plan Assess response to last tx. Continue PT for gait training, balance, neuro-reeducation. Consider use of theraband for facilitation of hip IR with gait
--- NOTE | 2019-11-27 17:40 | PT.OTN ---
Current Diagnoses Hemiplegia, unspecified affecting unspecified side (11/27/19) Difficulty in walking, not elsewhere classified (11/27/19) Weakness (11/27/19) History of falling (11/27/19) Physical Therapy Treatment Note PT-OP-A Visit Information Start: 05/28/19 08:11 Freq: Status: Active Protocol: Document 11/27/19 17:30 [facility] (Rec: 11/27/19 17:40 [facility] [id number]) Out-Patient Physical Therapy Visit Information Visit Information Visit Type Treatment Note Visit Start Time 09:00 Visit Stop Time 09:45 Total Visit Minutes 45 Visit Number 21 Number of TELERADIOLOGIST Visits 0 PT-OP-B Current Condition Start: 05/28/19 08:11 Freq: Status: Active Protocol: Document 10/31/19 11:15 [facility] (Rec: 10/31/19 11:57 [facility] [id number]) Current Condition History of Current Condition Onset Date 2014 Current Complaints weakness, requires assistance with all mobility and household tasks History of Current Condition Reports that she suffered a stroke in 2014 after surgery for brain aneurysm. CVA caused weakness on the left side of her body, gait and balance difficulty, seizures. Treatment Goals Patient/Caregiver Goals Improve strength, get faster with walking including on stairs, improve balance. 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 She had to take the bus here today and is using a morro cane with a basket to carry all of her personal belongings. This is heavy though for her right wrist to have to lift up . Brittany reports she is hoping to have a new school childcare attendant within the next two weeks. PT-OP-D Balance Start: 05/28/19 08:11 Freq: Status: Active Protocol: Document 05/29/19 14:30 [facility] (Rec: 05/30/19 14:24 [facility] [id number]) OP-PT Balance Assessment Sitting Balance Static Sitting Balance Ability Good Dynamic Sitting Balance Ability Fair Standing Balance Static Standing Balance Ability Good Dynamic Standing Balance Ability Fair Device Used hemiwalker right Tinetti Balance Assessment Sitting Balance Sitting Balance Steady, safe Arising from Chair Attempts to Arise Able, requires >1 attempt Standing Balance Immediate Standing Balance Steady with support Standing Balance Steady, wide stance Nudged Response Begins to fall Standing with Eyes Closed Unsteady Turning Step Pattern Turning 360 Degrees Discontinuous steps Stability Turning 360 Degrees Unsteady, grabs/staggers Sitting Down Sitting Down Uses arms or unsteady Gait and Step Initiation of Gait Hesitancy, mult. attempts Right Foot Step Length Does not pass stance ft. Right Foot Step Height Does not clear floor Left Foot Step Length Does not pass stance foot Left Foot Step Height Does not clear floor Step Description Step Symmetry Step length not equal Gait Description Path Description Mild/moderate deviation Trunk Description Marked sway or uses aide Walking Stance Heels apart Scoring and Interpretation Tinetti Composite Score (points) 6 Interpretation of Scores High risk for falls(< 19) Herrera Fall Scale Copyright Permission PT-OP-G Mobility & Gait Start: 05/28/19 08:11 Freq: Status: Active Protocol: Document 05/29/19 14:30 [facility] (Rec: 05/30/19 14:24 [facility] [id number]) OP Mobility Evaluation Bed Mobility Rolling min assist Supine to and from Sit min assist Transfers Sit to Stand uses right UE Bed to Chair Transfers uses right UE Floor Transfers unable Functional Movements Squats uses primarily right LE OP Gait Assessment Gait Gait Assistance Required: Standby Assistance Distance (Feet) 20 Assistive Devices Assistive Device Morro Walker Orthotic/Prosthetic Devices or Brace: Yes Gait Deviations General Gait Pattern Decreased Stride Length, Decreased Feet Clearance, Lateral Trunk Lean,Wide Based Gait Factors Limiting Gait Function Factors Limiting Gait Function Abnormal Tonal Influences, Decreased Strength PT-OP-H Neuro Start: 05/28/19 08:11 Freq: Status: Active Protocol: Document 05/29/19 14:30 [facility] (Rec: 05/30/19 14:24 [facility] [id number]) Sensation Evaluation Gross Sensation Gross Sensation Left UE Impaired,Left LE Impaired Sensation Description Paresthesia,Numbness Coordination Evaluation Lower Extremity Tests Left Alternate Heel to Knee; Heel to Toe Test Moderate Impairment Heel on Boles Test Moderate Impairment Foot Tapping Test Moderate Impairment PT-OP-K Range of Motion Start: 05/28/19 08:11 Freq: Status: Active Protocol: Document 05/29/19 14:30 [facility] (Rec: 05/30/19 14:24 [facility] [id number]) Hip Goniometric Range of Motion Hip jake Hip ROM WFL Yes Knee Goniometric Range of Motion Knee jake Knee ROM WFL Yes Ankle and Foot Goniometric Range of Motion Ankle and Foot Left Active Ankle/Foot ROM WFL No Right Ankle/Foot ROM WFL Yes Ankle and Foot ROM Limitations Comments left ankle df -5, right 5 PT-OP-M Strength Start: 05/28/19 08:11 Freq: Status: Active Protocol: Document 05/29/19 14:30 [facility] (Rec: 05/30/19 14:24 [facility] [id number]) Hip Strength Hip Manual Muscle Testing Left Flexion (L2) 3- Fair- Extension (S1) 2 Poor Abduction 2+ Poor+ External Rotation 3- Fair- Internal Rotation 3+ Fair+ Right Flexion (L2) 4 Good Extension (S1) 4- Good- Abduction 4 Good External Rotation 3+ Fair+ Internal Rotation 4- Good- Knee Strength Knee Manual Muscle Testing Left Flexion (S2) 3 Fair Extension (L3) 3+ Fair+ Right Flexion (S2) 4+ Good+ Extension (L3) 4+ Good+ Ankle/Foot Strength Ankle and Foot Manual Muscle Testing Left Dorsiflexion (L4) 0 Zero Plantarflexion (S1) 0 Zero Right Dorsiflexion (L4) 4+ Good+ Plantarflexion (S1) 4+ Good+ PT-OP-Q Treatments Start: 05/28/19 08:11 Freq: Status: Active Protocol: Document 11/27/19 17:30 [facility] (Rec: 11/27/19 17:40 [facility] [id number]) Cardio Equipment Recumbent Elliptical (Biodex) Duration (Minutes) 5 Resistance 2 Seat Position 4 Other cued occas. L knee adduction 1/2 time when tired. Gym Equipment Shuttle Recovery Bilateral Squats Details bilateral squats Resistance 50# Reps/Time 3 x 10 reps Therapeutic Exercises Standing Exercises marching Side bilateral Equipment Used SPC Reps/Minutes x5 Comments CGA gait belt lunges Standing Exercise Name modified lunge Side bilateral Equipment Used SPC Reps/Minutes 3x5 each LE (RLE not as far front) Comments CGA gait belt step ups Standing Exercise Name RHR up/down min A for LLE IR for proper knee alignment Equipment Used R HR Reps/Minutes x5 lead each LE Comments CGA, improved L knee flexion. f/b/side stepping Standing Exercise Name f/b/side stepping Equipment Used //bar Reps/Minutes 10 ft x1 laps each direction Comments LLE tiring today quicker, used // bar for support sit to stands Reps/Minutes 10x Comments manual cues for lefty LE alignment and L quad activation hip abd Side bilateral Reps/Minutes 8 LLE 10 RLE Manual Therapy Treatment Manual Techniques 1 Type manual achilles tendon stretchin Body Position Sitting PT-OP-S Aquatic Treatment Start: 05/28/19 08:11 Freq: Status: Active Protocol: Document 07/13/19 10:15 [facility] (Rec: 07/13/19 15:03 [facility] [id number]) Aquatics Treatment Pool Entry/Exit Pool Entry/Exit Method Lift Assistance Minimal Assistance Water Walking Marching Water Level Chest Level Walking Equipment Ankle Weight- 2.5#, sm float on LUE, sm ewiiaapaayp float Level of Assistance Contact Guard Assistance, Minimal Assistance,Verbal Cues Sideways Water Level Chest Level Walking Equipment Ankle Weight- 2.5#, sm float on LUE Level of Assistance Contact Guard Assistance, Minimal Assistance,Verbal Cues Forwards Water Level Chest Level Walking Equipment Ankle Weight- 2.5#, sm float on LUE Level of Assistance Contact Guard Assistance, Minimal Assistance,Verbal Cues Lower Extremity Exercises pushing off wall with uni and bilateral LEs Details supine with feet against wall Body Position Supine Equipment neck and hip floats Reps/Duration 10 bilateral and 10 LLE Comments stabilizing at left knee to prevent lateral rotation left hip flex/ext Details standing on box with right foot Body Position Standing Water Level Waist Level Equipment Ankle Weight- 2.5# Reps/Duration 10 Comments manual assist for maintaining knee extension weight shifting staggard stance Details HH on wall Body Position Standing Water Level Waist Level Equipment Ankle Weight- 2.5#, sm float on LUE Comments assist with bracing left knee SLS LLE Details HH on wall Body Position Standing Water Level Waist Level Equipment Ankle Weight- 2.5#, sm float on LUE Reps/Duration [id number] sec Comments assist with bracing LLE, weight [id number] Details at wall Body Position Standing Water Level Waist Level Equipment Ankle Weight- 2.5#, sm float on LUE Comments assist with bracing left knee Upper Extremity Exercises pull downs Details standing at wall Water Level Chest Level Equipment BBs Reps/Duration 10 Comments assist with LUE HABD/HADD with long BB Body Position Standing Water Level Chest Level Reps/Duration 12x Comments assist with left hand on BB push pull Details back against wall Body Position Standing Water Level Waist Level Equipment lg BB Reps/Duration 10x Spinal Exercises Bad Ragaz Details trunk stabilization Body Position Supine Equipment Neck Float, hip float, arm float, LE floats Reps/Duration 2 min Manual Techniques Bad Ragaz hip ab/ad with manual resistance supine PT-OP-T Assessment and Plan Start: 05/28/19 08:11 Freq: Status: Active Protocol: Document 11/27/19 17:30 [facility] (Rec: 11/27/19 17:40 [facility] [id number]) Physical Therapy Assessment Assessment Summary Assessment pt had improved energy today. She reports she will be getting a new AFO and has a appt next week. I did do some manual stretching of the gastroc musculature as Brittany complained of tightness today . Physical Therapy Plan Frequency and Duration Frequency of Treatment 2x/Week Duration of Treatment 12 wks Plan of Care Start Date 10/31/19 Plan of Care End Date 12/30/19
--- NOTE | 2019-12-05 13:25 | PT.OTN ---
Current Diagnoses Hemiplegia, unspecified affecting unspecified side (12/05/19) Difficulty in walking, not elsewhere classified (12/05/19) Weakness (12/05/19) History of falling (12/05/19) Physical Therapy Treatment Note PT-OP-A Visit Information Start: 05/28/19 08:11 Freq: Status: Active Protocol: Document 12/05/19 10:15 SAK (Rec: 12/05/19 11:10 SAK [id number]) Out-Patient Physical Therapy Visit Information Visit Information Visit Type Treatment Note Visit Start Time 10:15 Visit Stop Time 11:00 Total Visit Minutes 45 Visit Number 22 Number of MINE PROMOTOR Visits 0 PT-OP-B Current Condition Start: 05/28/19 08:11 Freq: Status: Active Protocol: Document 10/31/19 11:15 SAK (Rec: 10/31/19 11:57 SAK [id number]) Current Condition History of Current Condition Onset Date 2014 Current Complaints weakness, requires assistance with all mobility and household tasks History of Current Condition Reports that she suffered a stroke in 2014 after surgery for brain aneurysm. CVA caused weakness on the left side of her body, gait and balance difficulty, seizures. Treatment Goals Patient/Caregiver Goals Improve strength, get faster with walking including on stairs, improve balance. PT-OP-C Subjective Start: 05/28/19 08:11 Freq: Status: Active Protocol: Document 12/05/19 10:15 SAK (Rec: 12/05/19 11:10 SAK [id number]) OP-PT Subjective Patient Comments Patient Comments Caregiver able to work for her now. Sees Bozena horowitz [facility] 02/25. PT-OP-D Balance Start: 05/28/19 08:11 Freq: Status: Active Protocol: Document 05/29/19 14:30 SAK (Rec: 05/30/19 14:24 SAK [id number]) OP-PT Balance Assessment Sitting Balance Static Sitting Balance Ability Good Dynamic Sitting Balance Ability Fair Standing Balance Static Standing Balance Ability Good Dynamic Standing Balance Ability Fair Device Used hemiwalker right Tinetti Balance Assessment Sitting Balance Sitting Balance Steady, safe Arising from Chair Attempts to Arise Able, requires >1 attempt Standing Balance Immediate Standing Balance Steady with support Standing Balance Steady, wide stance Nudged Response Begins to fall Standing with Eyes Closed Unsteady Turning Step Pattern Turning 360 Degrees Discontinuous steps Stability Turning 360 Degrees Unsteady, grabs/staggers Sitting Down Sitting Down Uses arms or unsteady Gait and Step Initiation of Gait Hesitancy, mult. attempts Right Foot Step Length Does not pass stance ft. Right Foot Step Height Does not clear floor Left Foot Step Length Does not pass stance foot Left Foot Step Height Does not clear floor Step Description Step Symmetry Step length not equal Gait Description Path Description Mild/moderate deviation Trunk Description Marked sway or uses aide Walking Stance Heels apart Scoring and Interpretation Tinetti Composite Score (points) 6 Interpretation of Scores High risk for falls(< 19) Herrera Fall Scale Copyright Permission PT-OP-G Mobility & Gait Start: 05/28/19 08:11 Freq: Status: Active Protocol: Document 05/29/19 14:30 [facility] (Rec: 05/30/19 14:24 [facility] [id number]) OP Mobility Evaluation Bed Mobility Rolling min assist Supine to and from Sit min assist Transfers Sit to Stand uses right UE Bed to Chair Transfers uses right UE Floor Transfers unable Functional Movements Squats uses primarily right LE OP Gait Assessment Gait Gait Assistance Required: Standby Assistance Distance (Feet) 20 Assistive Devices Assistive Device Morro Walker Orthotic/Prosthetic Devices or Brace: Yes Gait Deviations General Gait Pattern Decreased Stride Length, Decreased Feet Clearance, Lateral Trunk Lean,Wide Based Gait Factors Limiting Gait Function Factors Limiting Gait Function Abnormal Tonal Influences, Decreased Strength PT-OP-H Neuro Start: 05/28/19 08:11 Freq: Status: Active Protocol: Document 05/29/19 14:30 [facility] (Rec: 05/30/19 14:24 [facility] [id number]) Sensation Evaluation Gross Sensation Gross Sensation Left UE Impaired,Left LE Impaired Sensation Description Paresthesia,Numbness Coordination Evaluation Lower Extremity Tests Left Alternate Heel to Knee; Heel to Toe Test Moderate Impairment Heel on Boles Test Moderate Impairment Foot Tapping Test Moderate Impairment PT-OP-K Range of Motion Start: 05/28/19 08:11 Freq: Status: Active Protocol: Document 05/29/19 14:30 [facility] (Rec: 05/30/19 14:24 [facility] [id number]) Hip Goniometric Range of Motion Hip jkae Hip ROM WFL Yes Knee Goniometric Range of Motion Knee jake Knee ROM WFL Yes Ankle and Foot Goniometric Range of Motion Ankle and Foot Left Active Ankle/Foot ROM WFL No Right Ankle/Foot ROM WFL Yes Ankle and Foot ROM Limitations Comments left ankle df -5, right 5 PT-OP-M Strength Start: 05/28/19 08:11 Freq: Status: Active Protocol: Document 05/29/19 14:30 [facility] (Rec: 05/30/19 14:24 [facility] [id number]) Hip Strength Hip Manual Muscle Testing Left Flexion (L2) 3- Fair- Extension (S1) 2 Poor Abduction 2+ Poor+ External Rotation 3- Fair- Internal Rotation 3+ Fair+ Right Flexion (L2) 4 Good Extension (S1) 4- Good- Abduction 4 Good External Rotation 3+ Fair+ Internal Rotation 4- Good- Knee Strength Knee Manual Muscle Testing Left Flexion (S2) 3 Fair Extension (L3) 3+ Fair+ Right Flexion (S2) 4+ Good+ Extension (L3) 4+ Good+ Ankle/Foot Strength Ankle and Foot Manual Muscle Testing Left Dorsiflexion (L4) 0 Zero Plantarflexion (S1) 0 Zero Right Dorsiflexion (L4) 4+ Good+ Plantarflexion (S1) 4+ Good+ PT-OP-Q Treatments Start: 05/28/19 08:11 Freq: Status: Active Protocol: Document 12/05/19 10:15 [facility] (Rec: 12/05/19 11:10 [facility] [id number]) Cardio Equipment Recumbent Elliptical (Biodex) Duration (Minutes) 10 Resistance 1 Other no AFO, cues for left LE alignment, .65 miles Gym Equipment Shuttle Recovery Bilateral Squats Details bilateral squats Resistance 50# Reps/Time 3 x 10 reps (1 set without AFO ) Therapeutic Exercises Standing Exercises marching Side bilateral Equipment Used SPC Reps/Minutes x5 Comments CGA gait belt lunges Standing Exercise Name modified lunge Side bilateral Equipment Used SPC Reps/Minutes 3x5 each LE (RLE not as far front) Comments CGA gait belt step ups Standing Exercise Name RHR up/down min A for LLE IR for proper knee alignment Equipment Used R HR Reps/Minutes x5 lead each LE Comments CGA, improved L knee flexion. f/b/side stepping Standing Exercise Name f/b/side stepping Equipment Used //bar Reps/Minutes 10 ft x1 laps each direction Comments // bar for support sit to stands Reps/Minutes 10x Comments manual cues for lefty LE alignment and L quad activation Manual Therapy Treatment Manual Techniques 1 Type manual achilles tendon stretchin Body Position Sitting Neuro Re-Education Treatment Balance Activities tiltboard Details A/P, side bal and weight shift balloon volleyball Equipment blue foam Comments parallel bars PT-OP-S Aquatic Treatment Start: 05/28/19 08:11 Freq: Status: Active Protocol: Document 07/13/19 10:15 NILAY (Rec: 07/13/19 15:03 NILAY [id number]) Aquatics Treatment Pool Entry/Exit Pool Entry/Exit Method Lift Assistance Minimal Assistance Water Walking Marching Water Level Chest Level Walking Equipment Ankle Weight- 2.5#, sm float on LUE, sm [place] float Level of Assistance Contact Guard Assistance, Minimal Assistance,Verbal Cues Sideways Water Level Chest Level Walking Equipment Ankle Weight- 2.5#, sm float on LUE Level of Assistance Contact Guard Assistance, Minimal Assistance,Verbal Cues Forwards Water Level Chest Level Walking Equipment Ankle Weight- 2.5#, sm float on LUE Level of Assistance Contact Guard Assistance, Minimal Assistance,Verbal Cues Lower Extremity Exercises pushing off wall with uni and bilateral LEs Details supine with feet against wall Body Position Supine Equipment neck and hip floats Reps/Duration 10 bilateral and 10 LLE Comments stabilizing at left knee to prevent lateral rotation left hip flex/ext Details standing on box with right foot Body Position Standing Water Level Waist Level Equipment Ankle Weight- 2.5# Reps/Duration 10 Comments manual assist for maintaining knee extension weight shifting staggard stance Details HH on wall Body Position Standing Water Level Waist Level Equipment Ankle Weight- 2.5#, sm float on LUE Comments assist with bracing left knee SLS LLE Details HH on wall Body Position Standing Water Level Waist Level Equipment Ankle Weight- 2.5#, sm float on LUE Reps/Duration [id number] sec Comments assist with bracing LLE, weight [id number] Details at wall Body Position Standing Water Level Waist Level Equipment Ankle Weight- 2.5#, sm float on LUE Comments assist with bracing left knee Upper Extremity Exercises pull downs Details standing at wall Water Level Chest Level Equipment BBs Reps/Duration 10 Comments assist with LUE HABD/HADD with long BB Body Position Standing Water Level Chest Level Reps/Duration 12x Comments assist with left hand on BB push pull Details back against wall Body Position Standing Water Level Waist Level Equipment lg BB Reps/Duration 10x Spinal Exercises Bad Ragaz Details trunk stabilization Body Position Supine Equipment Neck Float, hip float, arm float, LE floats Reps/Duration 2 min Manual Techniques Christopher Villaseñor hip ab/ad with manual resistance supine PT-OP-T Assessment and Plan Start: 05/28/19 08:11 Freq: Status: Active Protocol: Document 12/05/19 10:15 SAK (Rec: 12/05/19 13:25 SAK [id number]) Physical Therapy Assessment Goals Four Impairment requires assistance with bed mobility and transfers Short Term Goal (STG) Patient will be able to perform all bed mobility independently to improve her functional independence. 10/31/19: good goal progress STG Duration goal met [facility] Goal (LTG) Patient will be able to perform a floor transfer with SB to min assist 10/31/19: max assist today LTG Duration 12/30/19 Three Impairment weakness left UE and LE s/p CVA Gate Shear Operator Goal (LTG) Improve functional strength in left LE, as evidenced by ability to move from sit > < stand without use of UE's. Request OT for left UE rehab. 10/31/19: OT starts tomorrow. Good progress with sit to stand, though mostly using right UE and LE LTG Duration 12/30/19 Two Impairment balance dysfunction with high risk for falls [facility] Goal (LTG) Improve balance as evidenced by improvement in Tinnetti balance and gait score to low fall risk range to improve safety in the home and community. 10/31/19: remains high risk for falls LTG Duration 12/30/19 One Impairment requires morro-walker for gait, limited to household gait Gate Shear Operator Goal (LTG) Patient able to ambulate with least restrictive device for functional community distances to improve her functional independence and quality of life. 10/30/19: no progress due to Covid 19. LTG Duration 12/30/19 Assessment Summary Assessment Patient given standing hip IR for HEP as continues to struggle with rotational control with her mobility. Did Sci-Fit without AFO today to allow for more ankle mobility. Also some weight shifting side to side in standing without AFO but reported lateral ankle pain without manual positional correction Physical Therapy Plan Frequency and Duration Frequency of Treatment 2x/Week Duration of Treatment 12 wks Plan of Care Start Date 10/31/19 Plan of Care End Date 08/23/20 Therapeutic Interventions Therapeutic Interventions Aquatic Therapy,Balance Training,Gait Training,Home Exercise Program,Neuromuscular Re-education,Orthotic/ Prosthetic Management,Patient/ Caregiver Education,Self-Care/ Home Management,Taping, Therapeutic Activities, Therapeutic Exercises Modalities Cold Pack/Ice Massage,Hot Packs Next Visit Focus/Plan Next Note Type Treatment Note Next Visit Plan Assess response to last tx. Continue PT for gait training, balance, neuro-reeducation. Consider use of theraband for facilitation of hip IR with gait
--- NOTE | 2019-12-18 17:24 | PT.OTN ---
Current Diagnoses Hemiplegia, unspecified affecting unspecified side (12/18/19) Difficulty in walking, not elsewhere classified (12/18/19) Weakness (12/18/19) History of falling (12/18/19) Physical Therapy Treatment Note PT-OP-A Visit Information Start: 05/28/19 08:11 Freq: Status: Active Protocol: Document 12/18/19 08:58 SAK (Rec: 12/18/19 09:44 SAK [id number]) Out-Patient Physical Therapy Visit Information Visit Information Visit Type Treatment Note Visit Start Time 10:15 Visit Stop Time 11:00 Total Visit Minutes 45 Visit Number 23 Number of VOICE COACH Visits 0 PT-OP-B Current Condition Start: 05/28/19 08:11 Freq: Status: Active Protocol: Document 10/31/19 11:15 SAK (Rec: 10/31/19 11:57 SAK [id number]) Current Condition History of Current Condition Onset Date 2014 Current Complaints weakness, requires assistance with all mobility and household tasks History of Current Condition Reports that she suffered a stroke in 2014 after surgery for brain aneurysm. CVA caused weakness on the left side of her body, gait and balance difficulty, seizures. Treatment Goals Patient/Caregiver Goals Improve strength, get faster with walking including on stairs, improve balance. PT-OP-C Subjective Start: 05/28/19 08:11 Freq: Status: Active Protocol: Document 12/05/19 10:15 SAK (Rec: 12/05/19 11:10 SAK [id number]) OP-PT Subjective Patient Comments Patient Comments Caregiver able to work for her now. Sees Bozena horowitz [facility] 02/25. PT-OP-D Balance Start: 05/28/19 08:11 Freq: Status: Active Protocol: Document 05/29/19 14:30 SAK (Rec: 05/30/19 14:24 SAK [id number]) OP-PT Balance Assessment Sitting Balance Static Sitting Balance Ability Good Dynamic Sitting Balance Ability Fair Standing Balance Static Standing Balance Ability Good Dynamic Standing Balance Ability Fair Device Used hemiwalker right Tinetti Balance Assessment Sitting Balance Sitting Balance Steady, safe Arising from Chair Attempts to Arise Able, requires >1 attempt Standing Balance Immediate Standing Balance Steady with support Standing Balance Steady, wide stance Nudged Response Begins to fall Standing with Eyes Closed Unsteady Turning Step Pattern Turning 360 Degrees Discontinuous steps Stability Turning 360 Degrees Unsteady, grabs/staggers Sitting Down Sitting Down Uses arms or unsteady Gait and Step Initiation of Gait Hesitancy, mult. attempts Right Foot Step Length Does not pass stance ft. Right Foot Step Height Does not clear floor Left Foot Step Length Does not pass stance foot Left Foot Step Height Does not clear floor Step Description Step Symmetry Step length not equal Gait Description Path Description Mild/moderate deviation Trunk Description Marked sway or uses aide Walking Stance Heels apart Scoring and Interpretation Tinetti Composite Score (points) 6 Interpretation of Scores High risk for falls(< 19) Herrera Fall Scale Copyright Permission PT-OP-G Mobility & Gait Start: 05/28/19 08:11 Freq: Status: Active Protocol: Document 05/29/19 14:30 [facility] (Rec: 05/30/19 14:24 [facility] [id number]) OP Mobility Evaluation Bed Mobility Rolling min assist Supine to and from Sit min assist Transfers Sit to Stand uses right UE Bed to Chair Transfers uses right UE Floor Transfers unable Functional Movements Squats uses primarily right LE OP Gait Assessment Gait Gait Assistance Required: Standby Assistance Distance (Feet) 20 Assistive Devices Assistive Device Morro Walker Orthotic/Prosthetic Devices or Brace: Yes Gait Deviations General Gait Pattern Decreased Stride Length, Decreased Feet Clearance, Lateral Trunk Lean,Wide Based Gait Factors Limiting Gait Function Factors Limiting Gait Function Abnormal Tonal Influences, Decreased Strength PT-OP-H Neuro Start: 05/28/19 08:11 Freq: Status: Active Protocol: Document 05/29/19 14:30 [facility] (Rec: 05/30/19 14:24 [facility] [id number]) Sensation Evaluation Gross Sensation Gross Sensation Left UE Impaired,Left LE Impaired Sensation Description Paresthesia,Numbness Coordination Evaluation Lower Extremity Tests Left Alternate Heel to Knee; Heel to Toe Test Moderate Impairment Heel on Boles Test Moderate Impairment Foot Tapping Test Moderate Impairment PT-OP-K Range of Motion Start: 05/28/19 08:11 Freq: Status: Active Protocol: Document 05/29/19 14:30 [facility] (Rec: 05/30/19 14:24 [facility] [id number]) Hip Goniometric Range of Motion Hip jake Hip ROM WFL Yes Knee Goniometric Range of Motion Knee jake Knee ROM WFL Yes Ankle and Foot Goniometric Range of Motion Ankle and Foot Left Active Ankle/Foot ROM WFL No Right Ankle/Foot ROM WFL Yes Ankle and Foot ROM Limitations Comments left ankle df -5, right 5 PT-OP-M Strength Start: 05/28/19 08:11 Freq: Status: Active Protocol: Document 05/29/19 14:30 SAK (Rec: 05/30/19 14:24 [facility] [id number]) Hip Strength Hip Manual Muscle Testing Left Flexion (L2) 3- Fair- Extension (S1) 2 Poor Abduction 2+ Poor+ External Rotation 3- Fair- Internal Rotation 3+ Fair+ Right Flexion (L2) 4 Good Extension (S1) 4- Good- Abduction 4 Good External Rotation 3+ Fair+ Internal Rotation 4- Good- Knee Strength Knee Manual Muscle Testing Left Flexion (S2) 3 Fair Extension (L3) 3+ Fair+ Right Flexion (S2) 4+ Good+ Extension (L3) 4+ Good+ Ankle/Foot Strength Ankle and Foot Manual Muscle Testing Left Dorsiflexion (L4) 0 Zero Plantarflexion (S1) 0 Zero Right Dorsiflexion (L4) 4+ Good+ Plantarflexion (S1) 4+ Good+ PT-OP-Q Treatments Start: 05/28/19 08:11 Freq: Status: Active Protocol: Document 12/18/19 08:58 [facility] (Rec: 12/18/19 09:44 [facility] [id number]) Cardio Equipment Recumbent Elliptical (99 Fahrenheit) Duration (Minutes) 10 Resistance 1-2 Other 400 steps Therapeutic Exercises Sitting Exercises HC stretch Side left Reps/Minutes 2x 30 Standing Exercises minisquats Reps/Minutes 10x Comments no AFO Gait Training Gait Activity forward/back steps Level of Assistance CG to mod assist Treatment Focus increase weight bearing and stance time left LE, prevent hyperextension L pre-gait weight shifts Description AP, side to side Device Used none, no AFO Level of Assistance CG to min assist, verbal and manual cues Surface firm Treatment Focus increased weight bearing left LE 1 Description level surface Device Used straight cane Level of Assistance CGA and verbal cues Surface firm Comments L4 TB tied at gait belt wrapped around LE and tied to left shoe with internal rotation facilitation Neuro Re-Education Treatment Balance Activities rhythmic stabilization Details standing Surface firm Reps/Duration 5 min Comments pressure at hips all directions, slow directional changes PT-OP-S Aquatic Treatment Start: 05/28/19 08:11 Freq: Status: Active Protocol: Document 07/13/19 10:15 LJ (Rec: 07/13/19 15:03 NILAY [id number]) Aquatics Treatment Pool Entry/Exit Pool Entry/Exit Method Lift Assistance Minimal Assistance Water Walking Marching Water Level Chest Level Walking Equipment Ankle Weight- 2.5#, sm float on LUE, sm [place] float Level of Assistance Contact Guard Assistance, Minimal Assistance,Verbal Cues Sideways Water Level Chest Level Walking Equipment Ankle Weight- 2.5#, sm float on LUE Level of Assistance Contact Guard Assistance, Minimal Assistance,Verbal Cues Forwards Water Level Chest Level Walking Equipment Ankle Weight- 2.5#, sm float on LUE Level of Assistance Contact Guard Assistance, Minimal Assistance,Verbal Cues Lower Extremity Exercises pushing off wall with uni and bilateral LEs Details supine with feet against wall Body Position Supine Equipment neck and hip floats Reps/Duration 10 bilateral and 10 LLE Comments stabilizing at left knee to prevent lateral rotation left hip flex/ext Details standing on box with right foot Body Position Standing Water Level Waist Level Equipment Ankle Weight- 2.5# Reps/Duration 10 Comments manual assist for maintaining knee extension weight shifting staggard stance Details HH on wall Body Position Standing Water Level Waist Level Equipment Ankle Weight- 2.5#, sm float on LUE Comments assist with bracing left knee SLS LLE Details HH on wall Body Position Standing Water Level Waist Level Equipment Ankle Weight- 2.5#, sm float on LUE Reps/Duration [id number] sec Comments assist with bracing LLE, weight [id number] Details at wall Body Position Standing Water Level Waist Level Equipment Ankle Weight- 2.5#, sm float on LUE Comments assist with bracing left knee Upper Extremity Exercises pull downs Details standing at wall Water Level Chest Level Equipment BBs Reps/Duration 10 Comments assist with LUE HABD/HADD with long BB Body Position Standing Water Level Chest Level Reps/Duration 12x Comments assist with left hand on BB push pull Details back against wall Body Position Standing Water Level Waist Level Equipment lg BB Reps/Duration 10x Spinal Exercises Bad Ragaz Details trunk stabilization Body Position Supine Equipment Neck Float, hip float, arm float, LE floats Reps/Duration 2 min Manual Techniques Bad Ragaz hip ab/ad with manual resistance supine PT-OP-T Assessment and Plan Start: 05/28/19 08:11 Freq: Status: Active Protocol: Document 12/18/19 08:58 KRYSTAL (Rec: 12/18/19 09:44 [facility] [id number]) Physical Therapy Assessment Goals Four Impairment requires assistance with bed mobility and transfers Short Term Goal (STG) Patient will be able to perform all bed mobility independently to improve her functional independence. 10/31/19: good goal progress STG Duration goal met Signal Supervisor Goal (LTG) Patient will be able to perform a floor transfer with SB to min assist 10/31/19: max assist today LTG Duration 12/30/19 Three Impairment weakness left UE and LE s/p CVA Detention Goal (LTG) Improve functional strength in left LE, as evidenced by ability to move from sit > < stand without use of UE's. Request OT for left UE rehab. 10/31/19: OT starts tomorrow. Good progress with sit to stand, though mostly using right UE and LE LTG Duration 12/30/19 Two Impairment balance dysfunction with high risk for falls Signal Supervisor Goal (LTG) Improve balance as evidenced by improvement in Tinnetti balance and gait score to low fall risk range to improve safety in the home and community. 10/31/19: remains high risk for falls LTG Duration 12/30/19 One Impairment requires morro-walker for gait, limited to household gait Detention Goal (LTG) Patient able to ambulate with least restrictive device for functional community distances to improve her functional independence and quality of life. 10/30/19: no progress due to Covid 19. LTG Duration 12/30/19 Assessment Summary Assessment LE alignment and knee control improved with gait with use of theraband. Patient has difficulty with knee control with pregait activities without AFO. Physical Therapy Plan Frequency and Duration Frequency of Treatment 2x/Week Duration of Treatment 12 wks Plan of Care Start Date 10/31/19 Plan of Care End Date 12/30/19 Therapeutic Interventions Therapeutic Interventions Aquatic Therapy,Balance Training,Gait Training,Home Exercise Program,Neuromuscular Re-education,Orthotic/ Prosthetic Management,Patient/ Caregiver Education,Self-Care/ Home Management,Taping, Therapeutic Activities, Therapeutic Exercises Modalities Cold Pack/Ice Massage,Hot Packs Next Visit Focus/Plan Next Note Type Treatment Note Next Visit Plan Continue PT for strengthening, gait training, neuro re-ed. Use theraband L4 again for facilitation of gait.
--- NOTE | 2019-12-20 09:49 | PT.OTN ---
Current Diagnoses Hemiplegia, unspecified affecting unspecified side (12/20/19) Difficulty in walking, not elsewhere classified (12/20/19) Weakness (12/20/19) History of falling (12/20/19) Physical Therapy Treatment Note PT-OP-A Visit Information Start: 05/28/19 08:11 Freq: Status: Active Protocol: Document 12/20/19 09:09 [facility] (Rec: 12/20/19 09:49 [facility] [id number]) Out-Patient Physical Therapy Visit Information Visit Information Visit Type Treatment Note Visit Start Time 09:00 Visit Stop Time 09:43 Total Visit Minutes 43 Visit Number 24 Number of BUSINESS PROGRAMMER Visits 0 PT-OP-B Current Condition Start: 05/28/19 08:11 Freq: Status: Active Protocol: Document 10/31/19 11:15 SAK (Rec: 10/31/19 11:57 SAK [id number]) Current Condition History of Current Condition Onset Date 2014 Current Complaints weakness, requires assistance with all mobility and household tasks History of Current Condition Reports that she suffered a stroke in 2014 after surgery for brain aneurysm. CVA caused weakness on the left side of her body, gait and balance difficulty, seizures. Treatment Goals Patient/Caregiver Goals Improve strength, get faster with walking including on stairs, improve balance. PT-OP-C Subjective Start: 05/28/19 08:11 Freq: Status: Active Protocol: Document 12/20/19 09:09 [facility] (Rec: 12/20/19 09:49 [facility] [id number]) OP-PT Subjective Patient Comments Patient Comments Pt reports compliance with exercises. Reports wanting core exercises PT-OP-D Balance Start: 05/28/19 08:11 Freq: Status: Active Protocol: Document 05/29/19 14:30 SAK (Rec: 05/30/19 14:24 SAK [id number]) OP-PT Balance Assessment Sitting Balance Static Sitting Balance Ability Good Dynamic Sitting Balance Ability Fair Standing Balance Static Standing Balance Ability Good Dynamic Standing Balance Ability Fair Device Used hemiwalker right Tinetti Balance Assessment Sitting Balance Sitting Balance Steady, safe Arising from Chair Attempts to Arise Able, requires >1 attempt Standing Balance Immediate Standing Balance Steady with support Standing Balance Steady, wide stance Nudged Response Begins to fall Standing with Eyes Closed Unsteady Turning Step Pattern Turning 360 Degrees Discontinuous steps Stability Turning 360 Degrees Unsteady, grabs/staggers Sitting Down Sitting Down Uses arms or unsteady Gait and Step Initiation of Gait Hesitancy, mult. attempts Right Foot Step Length Does not pass stance ft. Right Foot Step Height Does not clear floor Left Foot Step Length Does not pass stance foot Left Foot Step Height Does not clear floor Step Description Step Symmetry Step length not equal Gait Description Path Description Mild/moderate deviation Trunk Description Marked sway or uses aide Walking Stance Heels apart Scoring and Interpretation Tinetti Composite Score (points) 6 Interpretation of Scores High risk for falls(< 19) Herrera Fall Scale Copyright Permission PT-OP-G Mobility & Gait Start: 05/28/19 08:11 Freq: Status: Active Protocol: Document 05/29/19 14:30 [facility] (Rec: 05/30/19 14:24 [facility] [id number]) OP Mobility Evaluation Bed Mobility Rolling min assist Supine to and from Sit min assist Transfers Sit to Stand uses right UE Bed to Chair Transfers uses right UE Floor Transfers unable Functional Movements Squats uses primarily right LE OP Gait Assessment Gait Gait Assistance Required: Standby Assistance Distance (Feet) 20 Assistive Devices Assistive Device Morro Walker Orthotic/Prosthetic Devices or Brace: Yes Gait Deviations General Gait Pattern Decreased Stride Length, Decreased Feet Clearance, Lateral Trunk Lean,Wide Based Gait Factors Limiting Gait Function Factors Limiting Gait Function Abnormal Tonal Influences, Decreased Strength PT-OP-H Neuro Start: 05/28/19 08:11 Freq: Status: Active Protocol: Document 05/29/19 14:30 [facility] (Rec: 05/30/19 14:24 [facility] [id number]) Sensation Evaluation Gross Sensation Gross Sensation Left UE Impaired,Left LE Impaired Sensation Description Paresthesia,Numbness Coordination Evaluation Lower Extremity Tests Left Alternate Heel to Knee; Heel to Toe Test Moderate Impairment Heel on Boles Test Moderate Impairment Foot Tapping Test Moderate Impairment PT-OP-K Range of Motion Start: 05/28/19 08:11 Freq: Status: Active Protocol: Document 05/29/19 14:30 [facility] (Rec: 05/30/19 14:24 [facility] [id number]) Hip Goniometric Range of Motion Hip jake Hip ROM WFL Yes Knee Goniometric Range of Motion Knee jake Knee ROM WFL Yes Ankle and Foot Goniometric Range of Motion Ankle and Foot Left Active Ankle/Foot ROM WFL No Right Ankle/Foot ROM WFL Yes Ankle and Foot ROM Limitations Comments left ankle df -5, right 5 PT-OP-M Strength Start: 05/28/19 08:11 Freq: Status: Active Protocol: Document 05/29/19 14:30 SAK (Rec: 05/30/19 14:24 SAK [id number]) Hip Strength Hip Manual Muscle Testing Left Flexion (L2) 3- Fair- Extension (S1) 2 Poor Abduction 2+ Poor+ External Rotation 3- Fair- Internal Rotation 3+ Fair+ Right Flexion (L2) 4 Good Extension (S1) 4- Good- Abduction 4 Good External Rotation 3+ Fair+ Internal Rotation 4- Good- Knee Strength Knee Manual Muscle Testing Left Flexion (S2) 3 Fair Extension (L3) 3+ Fair+ Right Flexion (S2) 4+ Good+ Extension (L3) 4+ Good+ Ankle/Foot Strength Ankle and Foot Manual Muscle Testing Left Dorsiflexion (L4) 0 Zero Plantarflexion (S1) 0 Zero Right Dorsiflexion (L4) 4+ Good+ Plantarflexion (S1) 4+ Good+ PT-OP-Q Treatments Start: 05/28/19 08:11 Freq: Status: Active Protocol: Document 12/20/19 09:09 [facility] (Rec: 12/20/19 09:49 [facility] [id number]) Cardio Equipment Recumbent Elliptical ([employer]) Duration (Minutes) 10 Resistance 2 Other 462steps Therapeutic Exercises Sitting Exercises sit up Sitting Exercise Name reverse sit up Reps/Minutes 10 Comments focus on core and posture add Sitting Exercise Name TA contraction w/ball add Side bilateral Reps/Minutes [id number] marching Sitting Exercise Name w/TA contraction Side bilateral Reps/Minutes 15 Gait Training Gait Activity pre-gait weight shifts Description AP, side to side Device Used AFO & SPC Level of Assistance CG to min assist, verbal and manual cues Surface firm Treatment Focus increased weight bearing left LE Comments in mirror to focus on L WB 1 Description level surface Device Used straight cane Level of Assistance CGA and verbal cues Surface firm Comments 1.L4 TB tied at gait belt wrapped around LE and tied to left shoe with internal rotation facilitation 2. without tband with cueing for even steps & turning LLE in PT-OP-S Aquatic Treatment Start: 05/28/19 08:11 Freq: Status: Active Protocol: Document 07/13/19 10:15 NILAY (Rec: 07/13/19 15:03 LJ [id number]) Aquatics Treatment Pool Entry/Exit Pool Entry/Exit Method Lift Assistance Minimal Assistance Water Walking Marching Water Level Chest Level Walking Equipment Ankle Weight- 2.5#, sm float on LUE, sm [place] de[place] float Level of Assistance Contact Guard Assistance, Minimal Assistance,Verbal Cues Sideways Water Level Chest Level Walking Equipment Ankle Weight- 2.5#, sm float on LUE Level of Assistance Contact Guard Assistance, Minimal Assistance,Verbal Cues Forwards Water Level Chest Level Walking Equipment Ankle Weight- 2.5#, sm float on LUE Level of Assistance Contact Guard Assistance, Minimal Assistance,Verbal Cues Lower Extremity Exercises pushing off wall with uni and bilateral LEs Details supine with feet against wall Body Position Supine Equipment neck and hip floats Reps/Duration 10 bilateral and 10 LLE Comments stabilizing at left knee to prevent lateral rotation left hip flex/ext Details standing on box with right foot Body Position Standing Water Level Waist Level Equipment Ankle Weight- 2.5# Reps/Duration 10 Comments manual assist for maintaining knee extension weight shifting staggard stance Details HH on wall Body Position Standing Water Level Waist Level Equipment Ankle Weight- 2.5#, sm float on LUE Comments assist with bracing left knee SLS LLE Details HH on wall Body Position Standing Water Level Waist Level Equipment Ankle Weight- 2.5#, sm float on LUE Reps/Duration [id number] sec Comments assist with bracing LLE, weight [id number]-side Details at wall Body Position Standing Water Level Waist Level Equipment Ankle Weight- 2.5#, sm float on LUE Comments assist with bracing left knee Upper Extremity Exercises pull downs Details standing at wall Water Level Chest Level Equipment BBs Reps/Duration 10 Comments assist with LUE HABD/HADD with long BB Body Position Standing Water Level Chest Level Reps/Duration 12x Comments assist with left hand on BB push pull Details back against wall Body Position Standing Water Level Waist Level Equipment lg BB Reps/Duration 10x Spinal Exercises Bad Ragaz Details trunk stabilization Body Position Supine Equipment Neck Float, hip float, arm float, LE floats Reps/Duration 2 min Manual Techniques Bad Ragaz hip ab/ad with manual resistance supine PT-OP-T Assessment and Plan Start: 05/28/19 08:11 Freq: Status: Active Protocol: Document 12/20/19 09:09 [facility] (Rec: 12/20/19 09:49 [facility] [id number]) Physical Therapy Assessment Goals Four Impairment requires assistance with bed mobility and transfers Short Term Goal (STG) Patient will be able to perform all bed mobility independently to improve her functional independence. 10/31/19: good goal progress STG Duration goal met Senior Care Goal (LTG) Patient will be able to perform a floor transfer with SB to min assist 10/31/19: max assist today LTG Duration 12/30/19 Three Impairment weakness left UE and LE s/p CVA Charging Plug Placer Goal (LTG) Improve functional strength in left LE, as evidenced by ability to move from sit > < stand without use of UE's. Request OT for left UE rehab. 10/31/19: OT starts tomorrow. Good progress with sit to stand, though mostly using right UE and LE LTG Duration 12/30/19 Two Impairment balance dysfunction with high risk for falls Charging Plug Placer Goal (LTG) Improve balance as evidenced by improvement in Tinnetti balance and gait score to low fall risk range to improve safety in the home and community. 10/31/19: remains high risk for falls LTG Duration 12/30/19 One Impairment requires morro-walker for gait, limited to household gait Senior Care Goal (LTG) Patient able to ambulate with least restrictive device for functional community distances to improve her functional independence and quality of life. 10/30/19: no progress due to Covid 19. LTG Duration 12/30/19 Assessment Summary Assessment Pt tolerated exercises well and was challenged by wt shifting to L to try to offload RLE and accept wt into LLE. SHe did well with core exercises with cueing for upright positioning Physical Therapy Plan Frequency and Duration Frequency of Treatment 2x/Week Duration of Treatment 12 wks Plan of Care Start Date 10/31/19 Plan of Care End Date 12/30/19 Therapeutic Interventions Therapeutic Interventions Aquatic Therapy,Balance Training,Gait Training,Home Exercise Program,Neuromuscular Re-education,Orthotic/ Prosthetic Management,Patient/ Caregiver Education,Self-Care/ Home Management,Taping, Therapeutic Activities, Therapeutic Exercises Modalities Cold Pack/Ice Massage,Hot Packs Next Visit Focus/Plan Next Note Type Progress Note Next Visit Plan Continue PT for strengthening, gait training, neuro re-ed. Use theraband L4 again for facilitation of gait.
--- NOTE | 2020-01-02 16:12 | PT.OPPOC ---
Physical, Occupational & Speech Therapy At [facility] Current Diagnoses Hemiplegia, unspecified affecting unspecified side (01/02/20) Difficulty in walking, not elsewhere classified (01/02/20) Weakness (01/02/20) History of falling (01/02/20) Visit Care Team Role Provider Type KINJAL Cooper Attending Provider Advanced Repairer Helper Primary Care Provider Specialty: Family Practice Address: [address] [place] [address], [facility] Email: [email or web address] Plan Of Care PT-OP-T Assessment and Plan Start: 05/28/19 08:11 Freq: Status: Active Protocol: Document 01/02/20 09:45 SAK (Rec: 01/02/20 10:37 SAK [id number]) Physical Therapy Assessment Goals Four Impairment requires assistance with bed mobility and transfers Short Term Goal (STG) Patient will be able to perform all bed mobility independently to improve her functional independence. 10/31/19: good goal progress STG Duration goal met Half-Way Goal (LTG) Patient will be able to perform a floor transfer with SB to min assist 10/31/19: max assist today 01/02/20: has not been willing to try since 10/31/19 LTG Duration 04/02/20 Three Impairment weakness left UE and LE s/p CVA Geometry Tutor Goal (LTG) Improve functional strength in left LE, as evidenced by ability to move from sit > < stand without use of UE's. Request OT for left UE rehab. 10/31/19: OT starts tomorrow. Good progress with sit to stand, though mostly using right UE and LE 01/02/20: Improving ability to perform, able to increase weight-bearing through left LE with cues, but still some use of right UE LTG Duration 04/02/20 Two Impairment balance dysfunction with high risk for falls Geometry Tutor Goal (LTG) Improve balance as evidenced by improvement in Tinnetti balance and gait score to low fall risk range to improve safety in the home and community. 10/31/19: remains high risk for falls 01/02/20: some improvement but still in high risk category LTG Duration 04/02/20 One Impairment requires armaan-walker for gait, limited to household gait Geometry Tutor Goal (LTG) Patient able to ambulate with least restrictive device for functional community distances to improve her functional independence and quality of life. 10/30/19: no progress due to Covid 19. 11/02/19: able to ambulate with quad cane but with very slow speed, household distances, very short community distances . LTG Duration 04/02/20 Assessment Summary Assessment Patient continues to have difficulty with fit of AFO's and limited by gastroc tightness. Needs constant cues for increased weight shift left and stride length right. Improved leg rotation with use of theraband as derotation strap attached to gait belt. Feel she would benefit from obtaining derotation strap for home use; PT to research. Recommend continued skilled physical therapy to address the above goals. Physical Therapy Plan Frequency and Duration Frequency of Treatment 2x/Week Duration of Treatment 12 wks Plan of Care Start Date 01/02/20 Plan of Care End Date 04/02/20 Therapeutic Interventions Therapeutic Interventions Aquatic Therapy,Balance Training,Gait Training,Home Exercise Program,Neuromuscular Re-education,Orthotic/ Prosthetic Management,Patient/ Caregiver Education,Self-Care/ Home Management,Taping, Therapeutic Activities, Therapeutic Exercises Modalities Cold Pack/Ice Massage,Hot Packs Next Visit Focus/Plan Next Note Type Progress Note Next Visit Plan Continue PT per POC to improve strength, neuromuscular control, gait, and balance. Continue with use of theraband to facilitate derotation as we continue neuromuscular re- education and research derotation braces. Work on sit to stand without use of hand on hi/lo table, use of mirror. Plan of Care Dates Plan of Care Start Date 01/02/20 Plan of Care End Date 04/02/20 Electronically Signed by: Renetta Villarreal, PT 01/03/20 [id number] Please Sign and Return: I have reviewed this Plan of Care and certify that the skilled therapy services above are required to meet the patient?s needs. Physician Signature Date Printed Name and Credentials Clinical Instructor Signature Printed Name and Credentials
--- NOTE | 2020-01-02 16:14 | PT.OTRE ---
Current Diagnoses Hemiplegia, unspecified affecting unspecified side (01/02/20) Difficulty in walking, not elsewhere classified (01/02/20) Weakness (01/02/20) History of falling (01/02/20) Past Medical History (Last Reviewed 12/26/19 @ 14:05 by KINJAL Cooper) ADHD (Chronic ~2014) Back pain with right-sided sciatica (Inactive) Bleeding in brain due to brain aneurysm (Acute) Cervical somatic dysfunction (Inactive) Chronic constipation (Inactive) Chronic neck pain (Inactive) Cranial somatic dysfunction (Inactive) Dominant hemiplegia complicating stroke (Acute) Dry mouth, unspecified (Acute) Dysphagia (Acute) Elevated BP without diagnosis of hypertension (Acute) Excessive vitamin B12 intake (Acute) Family history of colon cancer (Acute) Fatigue (Acute) Foot drop, left (Inactive) Generalized anxiety disorder (Acute) GERD (gastroesophageal reflux disease) (Chronic) Headache (Inactive) Hypothyroidism (Chronic) Iliotibial band syndrome, left leg (Inactive) Irritable bowel syndrome (Chronic) Left hand weakness (Inactive) Left hemiplegia (Acute) Major depressive disorder (Acute) Obesity (Acute) Obesity (BMI 35.0-39.9 without comorbidity) (Acute) Pelvic somatic dysfunction (Inactive) Seasonal allergies (Inactive) Segmental and somatic dysfunction of abdomen and other regions (Inactive) Segmental and somatic dysfunction of lumbar region (Inactive) Segmental and somatic dysfunction of rib cage (Inactive) Segmental and somatic dysfunction of sacral region (Inactive) Segmental and somatic dysfunction of thoracic region (Inactive) Seizure disorder (Inactive) Stiff neck (Inactive) Stroke (Acute) Throat disorder (Inactive) Vision changes (Acute) Vision disorder (Inactive) Vitamin D deficiency (Acute) Surgical History (Last Reviewed 12/26/19 @ 14:05 by KINJAL Cooper) Anesthesia (Resolved) Brain aneurysm (Resolved ~03/25/15) De Quervain's syndrome (tenosynovitis) (Resolved ~1996) Visit Care Team Role Provider Type KINJAL Cooper Attending Provider [employer] Primary Care Provider Specialty: [facility] Address: [address] [place] [address], [id number] Email: [email or web address] Physical Therapy Re-Evaluation PT-OP-A Visit Information Start: 05/28/19 08:11 Freq: Status: Active Protocol: Document 01/02/20 09:45 SAK (Rec: 01/02/20 10:37 SAK [id number]) Out-Patient Physical Therapy Visit Information Visit Information Visit Type Treatment Note Visit Start Time 09:45 Visit Stop Time 10:30 Total Visit Minutes 45 Visit Number 25 Number of PROFESSOR OF THEOLOGY Visits 0 PT-OP-B Current Condition Start: 05/28/19 08:11 Freq: Status: Active Protocol: Document 10/31/19 11:15 SAK (Rec: 10/31/19 11:57 SAK [id number]) Current Condition History of Current Condition Onset Date 2014 Current Complaints weakness, requires assistance with all mobility and household tasks History of Current Condition Reports that she suffered a stroke in 2014 after surgery for brain aneurysm. CVA caused weakness on the left side of her body, gait and balance difficulty, seizures. Treatment Goals Patient/Caregiver Goals Improve strength, get faster with walking including on stairs, improve balance. PT-OP-C Subjective Start: 05/28/19 08:11 Freq: Status: Active Protocol: Document 01/02/20 09:45 SAK (Rec: 01/02/20 10:37 [facility] [id number]) OP-PT Subjective Patient Comments Patient Comments Was given recumbant exercise bike, cant use by herself because can't keep foot on pedal or knee in but can use with caregiver help. Wearing AFO portion of KAFO per recommendation oforthotist, but states feeling uncomfortable and plans to consult with shoer again. PT-OP-D Balance Start: 05/28/19 08:11 Freq: Status: Active Protocol: Document 05/29/19 14:30 SAK (Rec: 05/30/19 14:24 [facility] [id number]) OP-PT Balance Assessment Sitting Balance Static Sitting Balance Ability Good Dynamic Sitting Balance Ability Fair Standing Balance Static Standing Balance Ability Good Dynamic Standing Balance Ability Fair Device Used [facility] right Tinetti Balance Assessment Sitting Balance Sitting Balance Steady, safe Arising from Chair Attempts to Arise Able, requires >1 attempt Standing Balance Immediate Standing Balance Steady with support Standing Balance Steady, wide stance Nudged Response Begins to fall Standing with Eyes Closed Unsteady Turning Step Pattern Turning 360 Degrees Discontinuous steps Stability Turning 360 Degrees Unsteady, grabs/staggers Sitting Down Sitting Down Uses arms or unsteady Gait and Step Initiation of Gait Hesitancy, mult. attempts Right Foot Step Length Does not pass stance ft. Right Foot Step Height Does not clear floor Left Foot Step Length Does not pass stance foot Left Foot Step Height Does not clear floor Step Description Step Symmetry Step length not equal Gait Description Path Description Mild/moderate deviation Trunk Description Marked sway or uses aide Walking Stance Heels apart Scoring and Interpretation Tinetti Composite Score (points) 6 Interpretation of Scores High risk for falls(< 19) Herrera Fall Scale Copyright Permission Javier JM, Javier RM, Baldev SJ. Development of a scale to identify the fall- prone patient. Can J Aging 1989;8;366-7. Fabian Herrera (2009). Preventing patient falls. (2nd ed). [place]: Bai. PT-OP-G Mobility & Gait Start: 05/28/19 08:11 Freq: Status: Active Protocol: Document 05/29/19 14:30 [facility] (Rec: 05/30/19 14:24 [facility] [id number]) OP Mobility Evaluation Bed Mobility Rolling min assist Supine to and from Sit min assist Transfers Sit to Stand uses right UE Bed to Chair Transfers uses right UE Floor Transfers unable Functional Movements Squats uses primarily right LE OP Gait Assessment Gait Gait Assistance Required: Standby Assistance Distance (Feet) 20 Assistive Devices Assistive Device Morro Walker Orthotic/Prosthetic Devices or Brace: Yes Gait Deviations General Gait Pattern Decreased Stride Length, Decreased Feet Clearance, Lateral Trunk Lean,Wide Based Gait Factors Limiting Gait Function Factors Limiting Gait Function Abnormal Tonal Influences, Decreased Strength PT-OP-H Neuro Start: 05/28/19 08:11 Freq: Status: Active Protocol: Document 05/29/19 14:30 [facility] (Rec: 05/30/19 14:24 [facility] [id number]) Sensation Evaluation Gross Sensation Gross Sensation Left UE Impaired,Left LE Impaired Sensation Description Paresthesia,Numbness Coordination Evaluation Lower Extremity Tests Left Alternate Heel to Knee; Heel to Toe Test Moderate Impairment Heel on Boles Test Moderate Impairment Foot Tapping Test Moderate Impairment PT-OP-K Range of Motion Start: 05/28/19 08:11 Freq: Status: Active Protocol: Document 05/29/19 14:30 [facility] (Rec: 05/30/19 14:24 [facility] [id number]) Hip Goniometric Range of Motion Hip Measured in Degrees jake Hip ROM WFL Yes Knee Goniometric Range of Motion Knee Measured in Degrees jake Knee ROM WFL Yes Ankle and Foot Goniometric Range of Motion Ankle and Foot Measured in Degrees Left Active Ankle/Foot ROM WFL No Right Ankle/Foot ROM WFL Yes Ankle and Foot ROM Limitations Comments left ankle df -5, right 5 PT-OP-M Strength Start: 05/28/19 08:11 Freq: Status: Active Protocol: Document 05/29/19 14:30 [facility] (Rec: 05/30/19 14:24 [facility] [id number]) Hip Strength Hip Manual Muscle Testing Left Flexion (L2) 3- Fair- Extension (S1) 2 Poor Abduction 2+ Poor+ External Rotation 3- Fair- Internal Rotation 3+ Fair+ Right Flexion (L2) 4 Good Extension (S1) 4- Good- Abduction 4 Good External Rotation 3+ Fair+ Internal Rotation 4- Good- Knee Strength Knee Manual Muscle Testing Left Flexion (S2) 3 Fair Extension (L3) 3+ Fair+ Right Flexion (S2) 4+ Good+ Extension (L3) 4+ Good+ Ankle/Foot Strength Ankle and Foot Manual Muscle Testing Left Dorsiflexion (L4) 0 Zero Plantarflexion (S1) 0 Zero Right Dorsiflexion (L4) 4+ Good+ Plantarflexion (S1) 4+ Good+ PT-OP-Q Treatments Start: 05/28/19 08:11 Freq: Status: Active Protocol: Document 01/02/20 09:45 [facility] (Rec: 01/02/20 10:37 [facility] [id number]) Cardio Equipment Recumbent Elliptical (Biodex) Duration (Minutes) 10 Resistance 2 Other 759 steps, assist for LE alignment Therapeutic Exercises Sitting Exercises sit up Sitting Exercise Name reverse sit up Reps/Minutes 10 Comments focus on core and posture add Sitting Exercise Name TA contraction w/ball add Side bilateral Reps/Minutes [id number] HC stretch Side left Reps/Minutes 2x 30 Comments manual marching Sitting Exercise Name w/TA contraction Side bilateral Reps/Minutes 15 Standing Exercises minisquats Reps/Minutes 10x Comments no AFO Gait Training Gait Activity pre-gait weight shifts Description AP, side to side Device Used AFO & SPC Level of Assistance CG to min assist, verbal and manual cues Surface firm Treatment Focus increased weight bearing left LE Comments in mirror to focus on L WB 1 Description level surface Device Used straight cane Level of Assistance CGA and verbal cues Surface firm Comments 1.L4 TB tied at gait belt wrapped around LE and tied to left shoe with internal rotation facilitation 2. without tband with cueing for even steps & turning LLE in PT-OP-T Assessment and Plan Start: 05/28/19 08:11 Freq: Status: Active Protocol: Document 01/02/20 09:45 [facility] (Rec: 01/02/20 10:37 [facility] [id number]) Physical Therapy Assessment Goals Four Impairment requires assistance with bed mobility and transfers Short Term Goal (STG) Patient will be able to perform all bed mobility independently to improve her functional independence. 10/31/19: good goal progress STG Duration goal met Pelletizer Operator Goal (LTG) Patient will be able to perform a floor transfer with SB to min assist 10/31/19: max assist today 01/02/20: has not been willing to try since 10/31/19 LTG Duration 04/02/20 Three Impairment weakness left UE and LE s/p CVA Halfway Goal (LTG) Improve functional strength in left LE, as evidenced by ability to move from sit > < stand without use of UE's. Request OT for left UE rehab. 10/31/19: OT starts tomorrow. Good progress with sit to stand, though mostly using right UE and LE 01/02/20: Improving ability to perform, able to increase weight-bearing through left LE with cues, but still some use of right UE LTG Duration 04/02/20 Two Impairment balance dysfunction with high risk for falls Halfway Goal (LTG) Improve balance as evidenced by improvement in Tinnetti balance and gait score to low fall risk range to improve safety in the home and community. 10/31/19: remains high risk for falls 01/02/20: some improvement but still in high risk category LTG Duration 04/02/20 One Impairment requires morro-walker for gait, limited to household gait Pelletizer Operator Goal (LTG) Patient able to ambulate with least restrictive device for functional community distances to improve her functional independence and quality of life. 10/30/19: no progress due to Covid 19. 11/02/19: able to ambulate with quad cane but with very slow speed, household distances, very short community distances . LTG Duration 04/02/20 Assessment Summary Assessment Patient continues to have difficulty with fit of AFO's and limited by gastroc tightness. Needs constant cues for increased weight shift left and stride length right. Improved leg rotation with use of theraband as derotation strap attached to gait belt. Feel she would benefit from obtaining derotation strap for home use; PT to research. Recommend continued skilled physical therapy to address the above goals. Physical Therapy Plan Frequency and Duration Frequency of Treatment 2x/Week Duration of Treatment 12 wks Plan of Care Start Date 01/02/20 Plan of Care End Date 04/02/20 Therapeutic Interventions Therapeutic Interventions Aquatic Therapy,Balance Training,Gait Training,Home Exercise Program,Neuromuscular Re-education,Orthotic/ Prosthetic Management,Patient/ Caregiver Education,Self-Care/ Home Management,Taping, Therapeutic Activities, Therapeutic Exercises Modalities Cold Pack/Ice Massage,Hot Packs Next Visit Focus/Plan Next Note Type Progress Note Next Visit Plan Continue PT per POC to improve strength, neuromuscular control, gait, and balance. Continue with use of theraband to facilitate derotation as we continue neuromuscular re- education and research derotation braces. Work on sit to stand without use of hand on hi/lo table, use of mirror.
--- NOTE | 2020-01-02 17:03 | PT.OTN ---
Current Diagnoses Hemiplegia, unspecified affecting unspecified side (01/02/20) Difficulty in walking, not elsewhere classified (01/02/20) Weakness (01/02/20) History of falling (01/02/20) Physical Therapy Treatment Note PT-OP-A Visit Information Start: 05/28/19 08:11 Freq: Status: Active Protocol: Document 01/02/20 09:45 SAK (Rec: 01/02/20 10:37 SAK [id number]) Out-Patient Physical Therapy Visit Information Visit Information Visit Type Treatment Note Visit Start Time 09:45 Visit Stop Time 10:30 Total Visit Minutes 45 Visit Number 25 Number of FOOD AIDE Visits 0 PT-OP-B Current Condition Start: 05/28/19 08:11 Freq: Status: Active Protocol: Document 10/31/19 11:15 SAK (Rec: 10/31/19 11:57 SAK [id number]) Current Condition History of Current Condition Onset Date 2014 Current Complaints weakness, requires assistance with all mobility and household tasks History of Current Condition Reports that she suffered a stroke in 2014 after surgery for brain aneurysm. CVA caused weakness on the left side of her body, gait and balance difficulty, seizures. Treatment Goals Patient/Caregiver Goals Improve strength, get faster with walking including on stairs, improve balance. PT-OP-C Subjective Start: 05/28/19 08:11 Freq: Status: Active Protocol: Document 01/02/20 09:45 SAK (Rec: 01/02/20 10:37 SAK [id number]) OP-PT Subjective Patient Comments Patient Comments Was given recumbant exercise bike, cant use by herself because can't keep foot on pedal or knee in but can use with caregiver help. Wearing AFO portion of KAFO per recommendation oforthotist, but states feeling uncomfortable and plans to consult with medical case worker again. PT-OP-D Balance Start: 05/28/19 08:11 Freq: Status: Active Protocol: Document 05/29/19 14:30 SAK (Rec: 05/30/19 14:24 SAK [id number]) OP-PT Balance Assessment Sitting Balance Static Sitting Balance Ability Good Dynamic Sitting Balance Ability Fair Standing Balance Static Standing Balance Ability Good Dynamic Standing Balance Ability Fair Device Used hemiwalker right Tinetti Balance Assessment Sitting Balance Sitting Balance Steady, safe Arising from Chair Attempts to Arise Able, requires >1 attempt Standing Balance Immediate Standing Balance Steady with support Standing Balance Steady, wide stance Nudged Response Begins to fall Standing with Eyes Closed Unsteady Turning Step Pattern Turning 360 Degrees Discontinuous steps Stability Turning 360 Degrees Unsteady, grabs/staggers Sitting Down Sitting Down Uses arms or unsteady Gait and Step Initiation of Gait Hesitancy, mult. attempts Right Foot Step Length Does not pass stance ft. Right Foot Step Height Does not clear floor Left Foot Step Length Does not pass stance foot Left Foot Step Height Does not clear floor Step Description Step Symmetry Step length not equal Gait Description Path Description Mild/moderate deviation Trunk Description Marked sway or uses aide Walking Stance Heels apart Scoring and Interpretation Tinetti Composite Score (points) 6 Interpretation of Scores High risk for falls(< 19) Herrera Fall Scale Copyright Permission PT-OP-G Mobility & Gait Start: 05/28/19 08:11 Freq: Status: Active Protocol: Document 05/29/19 14:30 [facility] (Rec: 05/30/19 14:24 [facility] [id number]) OP Mobility Evaluation Bed Mobility Rolling min assist Supine to and from Sit min assist Transfers Sit to Stand uses right UE Bed to Chair Transfers uses right UE Floor Transfers unable Functional Movements Squats uses primarily right LE OP Gait Assessment Gait Gait Assistance Required: Standby Assistance Distance (Feet) 20 Assistive Devices Assistive Device Morro Walker Orthotic/Prosthetic Devices or Brace: Yes Gait Deviations General Gait Pattern Decreased Stride Length, Decreased Feet Clearance, Lateral Trunk Lean,Wide Based Gait Factors Limiting Gait Function Factors Limiting Gait Function Abnormal Tonal Influences, Decreased Strength PT-OP-H Neuro Start: 05/28/19 08:11 Freq: Status: Active Protocol: Document 05/29/19 14:30 [facility] (Rec: 05/30/19 14:24 [facility] [id number]) Sensation Evaluation Gross Sensation Gross Sensation Left UE Impaired,Left LE Impaired Sensation Description Paresthesia,Numbness Coordination Evaluation Lower Extremity Tests Left Alternate Heel to Knee; Heel to Toe Test Moderate Impairment Heel on Boles Test Moderate Impairment Foot Tapping Test Moderate Impairment PT-OP-K Range of Motion Start: 05/28/19 08:11 Freq: Status: Active Protocol: Document 05/29/19 14:30 [facility] (Rec: 05/30/19 14:24 [facility] [id number]) Hip Goniometric Range of Motion Hip jake Hip ROM WFL Yes Knee Goniometric Range of Motion Knee jake Knee ROM WFL Yes Ankle and Foot Goniometric Range of Motion Ankle and Foot Left Active Ankle/Foot ROM WFL No Right Ankle/Foot ROM WFL Yes Ankle and Foot ROM Limitations Comments left ankle df -5, right 5 PT-OP-M Strength Start: 05/28/19 08:11 Freq: Status: Active Protocol: Document 05/29/19 14:30 [facility] (Rec: 05/30/19 14:24 [facility] [id number]) Hip Strength Hip Manual Muscle Testing Left Flexion (L2) 3- Fair- Extension (S1) 2 Poor Abduction 2+ Poor+ External Rotation 3- Fair- Internal Rotation 3+ Fair+ Right Flexion (L2) 4 Good Extension (S1) 4- Good- Abduction 4 Good External Rotation 3+ Fair+ Internal Rotation 4- Good- Knee Strength Knee Manual Muscle Testing Left Flexion (S2) 3 Fair Extension (L3) 3+ Fair+ Right Flexion (S2) 4+ Good+ Extension (L3) 4+ Good+ Ankle/Foot Strength Ankle and Foot Manual Muscle Testing Left Dorsiflexion (L4) 0 Zero Plantarflexion (S1) 0 Zero Right Dorsiflexion (L4) 4+ Good+ Plantarflexion (S1) 4+ Good+ PT-OP-Q Treatments Start: 05/28/19 08:11 Freq: Status: Active Protocol: Document 01/02/20 09:45 [facility] (Rec: 01/02/20 10:37 [facility] [id number]) Cardio Equipment Recumbent Elliptical (Biodex) Duration (Minutes) 10 Resistance 2 Other 759 steps, assist for LE alignment Therapeutic Exercises Sitting Exercises sit up Sitting Exercise Name reverse sit up Reps/Minutes 10 Comments focus on core and posture add Sitting Exercise Name TA contraction w/ball add Side bilateral Reps/Minutes [id number] HC stretch Side left Reps/Minutes 2x 30 Comments manual marching Sitting Exercise Name w/TA contraction Side bilateral Reps/Minutes 15 Standing Exercises minisquats Reps/Minutes 10x Comments no AFO Gait Training Gait Activity pre-gait weight shifts Description AP, side to side Device Used AFO & SPC Level of Assistance CG to min assist, verbal and manual cues Surface firm Treatment Focus increased weight bearing left LE Comments in mirror to focus on L WB 1 Description level surface Device Used straight cane Level of Assistance CGA and verbal cues Surface firm Comments 1.L4 TB tied at gait belt wrapped around LE and tied to left shoe with internal rotation facilitation 2. without tband with cueing for even steps & turning LLE in PT-OP-S Aquatic Treatment Start: 05/28/19 08:11 Freq: Status: Active Protocol: Document 07/13/19 10:15 NILAY (Rec: 07/13/19 15:03 NILAY [id number]) Aquatics Treatment Pool Entry/Exit Pool Entry/Exit Method Lift Assistance Minimal Assistance Water Walking Marching Water Level Chest Level Walking Equipment Ankle Weight- 2.5#, sm float on LUE, sm [place] float Level of Assistance Contact Guard Assistance, Minimal Assistance,Verbal Cues Sideways Water Level Chest Level Walking Equipment Ankle Weight- 2.5#, sm float on LUE Level of Assistance Contact Guard Assistance, Minimal Assistance,Verbal Cues Forwards Water Level Chest Level Walking Equipment Ankle Weight- 2.5#, sm float on LUE Level of Assistance Contact Guard Assistance, Minimal Assistance,Verbal Cues Lower Extremity Exercises pushing off wall with uni and bilateral LEs Details supine with feet against wall Body Position Supine Equipment neck and hip floats Reps/Duration 10 bilateral and 10 LLE Comments stabilizing at left knee to prevent lateral rotation left hip flex/ext Details standing on box with right foot Body Position Standing Water Level Waist Level Equipment Ankle Weight- 2.5# Reps/Duration 10 Comments manual assist for maintaining knee extension weight shifting staggard stance Details HH on wall Body Position Standing Water Level Waist Level Equipment Ankle Weight- 2.5#, sm float on LUE Comments assist with bracing left knee SLS LLE Details HH on wall Body Position Standing Water Level Waist Level Equipment Ankle Weight- 2.5#, sm float on LUE Reps/Duration [id number] sec Comments assist with bracing LLE, weight [id number] Details at wall Body Position Standing Water Level Waist Level Equipment Ankle Weight- 2.5#, sm float on LUE Comments assist with bracing left knee Upper Extremity Exercises pull downs Details standing at wall Water Level Chest Level Equipment BBs Reps/Duration 10 Comments assist with LUE HABD/HADD with long BB Body Position Standing Water Level Chest Level Reps/Duration 12x Comments assist with left hand on BB push pull Details back against wall Body Position Standing Water Level Waist Level Equipment lg BB Reps/Duration 10x Spinal Exercises Bad Ragaz Details trunk stabilization Body Position Supine Equipment Neck Float, hip float, arm float, LE floats Reps/Duration 2 min Manual Techniques Christopher Villaseñor hip ab/ad with manual resistance supine PT-OP-T Assessment and Plan Start: 05/28/19 08:11 Freq: Status: Active Protocol: Document 01/02/20 09:45 SAK (Rec: 01/02/20 10:37 SAK [id number]) Physical Therapy Assessment Goals Four Impairment requires assistance with bed mobility and transfers Short Term Goal (STG) Patient will be able to perform all bed mobility independently to improve her functional independence. 10/31/19: good goal progress STG Duration goal met Detention Goal (LTG) Patient will be able to perform a floor transfer with SB to min assist 10/31/19: max assist today LTG Duration 12/30/19 Three Impairment weakness left UE and LE s/p CVA [employer]ch[employer] Goal (LTG) Improve functional strength in left LE, as evidenced by ability to move from sit > < stand without use of UE's. Request OT for left UE rehab. 10/31/19: OT starts tomorrow. Good progress with sit to stand, though mostly using right UE and LE LTG Duration 12/30/19 Two Impairment balance dysfunction with high risk for falls Detention Goal (LTG) Improve balance as evidenced by improvement in Tinnetti balance and gait score to low fall risk range to improve safety in the home and community. 10/31/19: remains high risk for falls LTG Duration 12/30/19 One Impairment requires morro-walker for gait, limited to household gait [employer]ch[employer] Goal (LTG) Patient able to ambulate with least restrictive device for functional community distances to improve her functional independence and quality of life. 10/30/19: no progress due to Covid 19. LTG Duration 12/30/19 Assessment Summary Assessment Patient continues to have difficulty with fit of AFO's and limited by gastroc tightness. Needs constant cues for increased weight shift left and stride length right. Physical Therapy Plan Frequency and Duration Frequency of Treatment 2x/Week Duration of Treatment 12 wks Plan of Care Start Date 10/31/19 Plan of Care End Date 12/30/19 Therapeutic Interventions Therapeutic Interventions Aquatic Therapy,Balance Training,Gait Training,Home Exercise Program,Neuromuscular Re-education,Orthotic/ Prosthetic Management,Patient/ Caregiver Education,Self-Care/ Home Management,Taping, Therapeutic Activities, Therapeutic Exercises Modalities Cold Pack/Ice Massage,Hot Packs Next Visit Focus/Plan Next Note Type Progress Note Next Visit Plan Continue PT per POC to improve strength, neuromuscular control, gait, and balance.
--- NOTE | 2020-01-03 16:12 | PT.OTRE ---
Current Diagnoses Hemiplegia, unspecified affecting unspecified side (01/02/20) Difficulty in walking, not elsewhere classified (01/02/20) Weakness (01/02/20) History of falling (01/02/20) Past Medical History (Last Reviewed 12/26/19 @ 14:05 by KINJAL Cooper) ADHD (Chronic ~2014) Back pain with right-sided sciatica (Inactive) Bleeding in brain due to brain aneurysm (Acute) Cervical somatic dysfunction (Inactive) Chronic constipation (Inactive) Chronic neck pain (Inactive) Cranial somatic dysfunction (Inactive) Dominant hemiplegia complicating stroke (Acute) Dry mouth, unspecified (Acute) Dysphagia (Acute) Elevated BP without diagnosis of hypertension (Acute) Excessive vitamin B12 intake (Acute) Family history of colon cancer (Acute) Fatigue (Acute) Foot drop, left (Inactive) Generalized anxiety disorder (Acute) GERD (gastroesophageal reflux disease) (Chronic) Headache (Inactive) Hypothyroidism (Chronic) Iliotibial band syndrome, left leg (Inactive) Irritable bowel syndrome (Chronic) Left hand weakness (Inactive) Left hemiplegia (Acute) Major depressive disorder (Acute) Obesity (Acute) Obesity (BMI 35.0-39.9 without comorbidity) (Acute) Pelvic somatic dysfunction (Inactive) Seasonal allergies (Inactive) Segmental and somatic dysfunction of abdomen and other regions (Inactive) Segmental and somatic dysfunction of lumbar region (Inactive) Segmental and somatic dysfunction of rib cage (Inactive) Segmental and somatic dysfunction of sacral region (Inactive) Segmental and somatic dysfunction of thoracic region (Inactive) Seizure disorder (Inactive) Stiff neck (Inactive) Stroke (Acute) Throat disorder (Inactive) Vision changes (Acute) Vision disorder (Inactive) Vitamin D deficiency (Acute) Surgical History (Last Reviewed 12/26/19 @ 14:05 by KINJAL Cooper) Anesthesia (Resolved) Brain aneurysm (Resolved ~03/25/15) De Quervain's syndrome (tenosynovitis) (Resolved ~1996) Visit Care Team Role Provider Type KINJAL Cooper Attending Provider [employer] Primary Care Provider Specialty: [facility] Address: [address] [place] [address], [id number] Email: [email or web address] Physical Therapy Re-Evaluation PT-OP-A Visit Information Start: 05/28/19 08:11 Freq: Status: Active Protocol: Document 01/02/20 09:45 SAK (Rec: 01/02/20 10:37 SAK [id number]) Out-Patient Physical Therapy Visit Information Visit Information Visit Type Treatment Note Visit Start Time 09:45 Visit Stop Time 10:30 Total Visit Minutes 45 Visit Number 25 Number of DEVELOPMENT DISABILITY SPECIALIST Visits 0 PT-OP-B Current Condition Start: 05/28/19 08:11 Freq: Status: Active Protocol: Document 10/31/19 11:15 SAK (Rec: 10/31/19 11:57 SAK [id number]) Current Condition History of Current Condition Onset Date 2014 Current Complaints weakness, requires assistance with all mobility and household tasks History of Current Condition Reports that she suffered a stroke in 2014 after surgery for brain aneurysm. CVA caused weakness on the left side of her body, gait and balance difficulty, seizures. Treatment Goals Patient/Caregiver Goals Improve strength, get faster with walking including on stairs, improve balance. PT-OP-C Subjective Start: 05/28/19 08:11 Freq: Status: Active Protocol: Document 01/02/20 09:45 SAK (Rec: 01/02/20 10:37 [facility] [id number]) OP-PT Subjective Patient Comments Patient Comments Was given recumbant exercise bike, cant use by herself because can't keep foot on pedal or knee in but can use with caregiver help. Wearing AFO portion of KAFO per recommendation oforthotist, but states feeling uncomfortable and plans to consult with physician neonatology again. PT-OP-D Balance Start: 05/28/19 08:11 Freq: Status: Active Protocol: Document 05/29/19 14:30 SAK (Rec: 05/30/19 14:24 [facility] [id number]) OP-PT Balance Assessment Sitting Balance Static Sitting Balance Ability Good Dynamic Sitting Balance Ability Fair Standing Balance Static Standing Balance Ability Good Dynamic Standing Balance Ability Fair Device Used [facility] right Tinetti Balance Assessment Sitting Balance Sitting Balance Steady, safe Arising from Chair Attempts to Arise Able, requires >1 attempt Standing Balance Immediate Standing Balance Steady with support Standing Balance Steady, wide stance Nudged Response Begins to fall Standing with Eyes Closed Unsteady Turning Step Pattern Turning 360 Degrees Discontinuous steps Stability Turning 360 Degrees Unsteady, grabs/staggers Sitting Down Sitting Down Uses arms or unsteady Gait and Step Initiation of Gait Hesitancy, mult. attempts Right Foot Step Length Does not pass stance ft. Right Foot Step Height Does not clear floor Left Foot Step Length Does not pass stance foot Left Foot Step Height Does not clear floor Step Description Step Symmetry Step length not equal Gait Description Path Description Mild/moderate deviation Trunk Description Marked sway or uses aide Walking Stance Heels apart Scoring and Interpretation Tinetti Composite Score (points) 6 Interpretation of Scores High risk for falls(< 19) Herrera Fall Scale Copyright Permission Javier JM, Javier RM, Baldev SJ. Development of a scale to identify the fall- prone patient. Can J Aging 1989;8;366-7. Fabian Herrera (2009). Preventing patient falls. (2nd ed). [place]: Bai. PT-OP-G Mobility & Gait Start: 05/28/19 08:11 Freq: Status: Active Protocol: Document 05/29/19 14:30 [facility] (Rec: 05/30/19 14:24 [facility] [id number]) OP Mobility Evaluation Bed Mobility Rolling min assist Supine to and from Sit min assist Transfers Sit to Stand uses right UE Bed to Chair Transfers uses right UE Floor Transfers unable Functional Movements Squats uses primarily right LE OP Gait Assessment Gait Gait Assistance Required: Standby Assistance Distance (Feet) 20 Assistive Devices Assistive Device Morro Walker Orthotic/Prosthetic Devices or Brace: Yes Gait Deviations General Gait Pattern Decreased Stride Length, Decreased Feet Clearance, Lateral Trunk Lean,Wide Based Gait Factors Limiting Gait Function Factors Limiting Gait Function Abnormal Tonal Influences, Decreased Strength PT-OP-H Neuro Start: 05/28/19 08:11 Freq: Status: Active Protocol: Document 05/29/19 14:30 [facility] (Rec: 05/30/19 14:24 [facility] [id number]) Sensation Evaluation Gross Sensation Gross Sensation Left UE Impaired,Left LE Impaired Sensation Description Paresthesia,Numbness Coordination Evaluation Lower Extremity Tests Left Alternate Heel to Knee; Heel to Toe Test Moderate Impairment Heel on Boles Test Moderate Impairment Foot Tapping Test Moderate Impairment PT-OP-K Range of Motion Start: 05/28/19 08:11 Freq: Status: Active Protocol: Document 05/29/19 14:30 [facility] (Rec: 05/30/19 14:24 [facility] [id number]) Hip Goniometric Range of Motion Hip Measured in Degrees jake Hip ROM WFL Yes Knee Goniometric Range of Motion Knee Measured in Degrees jake Knee ROM WFL Yes Ankle and Foot Goniometric Range of Motion Ankle and Foot Measured in Degrees Left Active Ankle/Foot ROM WFL No Right Ankle/Foot ROM WFL Yes Ankle and Foot ROM Limitations Comments left ankle df -5, right 5 PT-OP-M Strength Start: 05/28/19 08:11 Freq: Status: Active Protocol: Document 05/29/19 14:30 [facility] (Rec: 05/30/19 14:24 [facility] [id number]) Hip Strength Hip Manual Muscle Testing Left Flexion (L2) 3- Fair- Extension (S1) 2 Poor Abduction 2+ Poor+ External Rotation 3- Fair- Internal Rotation 3+ Fair+ Right Flexion (L2) 4 Good Extension (S1) 4- Good- Abduction 4 Good External Rotation 3+ Fair+ Internal Rotation 4- Good- Knee Strength Knee Manual Muscle Testing Left Flexion (S2) 3 Fair Extension (L3) 3+ Fair+ Right Flexion (S2) 4+ Good+ Extension (L3) 4+ Good+ Ankle/Foot Strength Ankle and Foot Manual Muscle Testing Left Dorsiflexion (L4) 0 Zero Plantarflexion (S1) 0 Zero Right Dorsiflexion (L4) 4+ Good+ Plantarflexion (S1) 4+ Good+ PT-OP-Q Treatments Start: 05/28/19 08:11 Freq: Status: Active Protocol: Document 01/02/20 09:45 [facility] (Rec: 01/02/20 10:37 [facility] [id number]) Cardio Equipment Recumbent Elliptical (Biodex) Duration (Minutes) 10 Resistance 2 Other 759 steps, assist for LE alignment Therapeutic Exercises Sitting Exercises sit up Sitting Exercise Name reverse sit up Reps/Minutes 10 Comments focus on core and posture add Sitting Exercise Name TA contraction w/ball add Side bilateral Reps/Minutes [id number] HC stretch Side left Reps/Minutes 2x 30 Comments manual marching Sitting Exercise Name w/TA contraction Side bilateral Reps/Minutes 15 Standing Exercises minisquats Reps/Minutes 10x Comments no AFO Gait Training Gait Activity pre-gait weight shifts Description AP, side to side Device Used AFO & SPC Level of Assistance CG to min assist, verbal and manual cues Surface firm Treatment Focus increased weight bearing left LE Comments in mirror to focus on L WB 1 Description level surface Device Used straight cane Level of Assistance CGA and verbal cues Surface firm Comments 1.L4 TB tied at gait belt wrapped around LE and tied to left shoe with internal rotation facilitation 2. without tband with cueing for even steps & turning LLE in PT-OP-T Assessment and Plan Start: 05/28/19 08:11 Freq: Status: Active Protocol: Document 01/02/20 09:45 SAK (Rec: 01/02/20 10:37 SAK [id number]) Physical Therapy Assessment Goals Four Impairment requires assistance with bed mobility and transfers Short Term Goal (STG) Patient will be able to perform all bed mobility independently to improve her functional independence. 10/31/19: good goal progress STG Duration goal met Reconciliation Analyst Goal (LTG) Patient will be able to perform a floor transfer with SB to min assist 10/31/19: max assist today 01/02/20: has not been willing to try since 10/31/19 LTG Duration 04/02/20 Three Impairment weakness left UE and LE s/p CVA Nursing Home Goal (LTG) Improve functional strength in left LE, as evidenced by ability to move from sit > < stand without use of UE's. Request OT for left UE rehab. 10/31/19: OT starts tomorrow. Good progress with sit to stand, though mostly using right UE and LE 01/02/20: Improving ability to perform, able to increase weight-bearing through left LE with cues, but still some use of right UE LTG Duration 04/02/20 Two Impairment balance dysfunction with high risk for falls Nursing Home Goal (LTG) Improve balance as evidenced by improvement in Tinnetti balance and gait score to low fall risk range to improve safety in the home and community. 10/31/19: remains high risk for falls 01/02/20: some improvement but still in high risk category LTG Duration 04/02/20 One Impairment requires morro-walker for gait, limited to household gait Reconciliation Analyst Goal (LTG) Patient able to ambulate with least restrictive device for functional community distances to improve her functional independence and quality of life. 10/30/19: no progress due to Covid 19. 11/02/19: able to ambulate with quad cane but with very slow speed, household distances, very short community distances . LTG Duration 04/02/20 Assessment Summary Assessment Patient continues to have difficulty with fit of AFO's and limited by gastroc tightness. Needs constant cues for increased weight shift left and stride length right. Improved leg rotation with use of theraband as derotation strap attached to gait belt. Feel she would benefit from obtaining derotation strap for home use; PT to research. Recommend continued skilled physical therapy to address the above goals. Physical Therapy Plan Frequency and Duration Frequency of Treatment 2x/Week Duration of Treatment 12 wks Plan of Care Start Date 01/02/20 Plan of Care End Date 04/02/20 Therapeutic Interventions Therapeutic Interventions Aquatic Therapy,Balance Training,Gait Training,Home Exercise Program,Neuromuscular Re-education,Orthotic/ Prosthetic Management,Patient/ Caregiver Education,Self-Care/ Home Management,Taping, Therapeutic Activities, Therapeutic Exercises Modalities Cold Pack/Ice Massage,Hot Packs Next Visit Focus/Plan Next Note Type Progress Note Next Visit Plan Continue PT per POC to improve strength, neuromuscular control, gait, and balance. Continue with use of theraband to facilitate derotation as we continue neuromuscular re- education and research derotation braces. Work on sit to stand without use of hand on hi/lo table, use of mirror.
--- NOTE | 2020-01-04 10:00 | PT-OP ANOTE ---
Pt DNS for today's appt , when called stated doesn't have an appt on her calendar for PT today but has an OT appt at 1030. HISTORICAL MANUSCRIPTS CURATOR reviewed [facility] and told her today 01/03 and 01/10 OT appts were listed as cancelled, next OT appt on 01/17 at 1030. Pt stated will call front office coordinator to investigate discrepancies. Pt confirmed Tuesday's appt 01/06 at 9 am for PT.
--- NOTE | 2020-01-07 09:50 | PT.OTN ---
Current Diagnoses Hemiplegia, unspecified affecting unspecified side (01/07/20) Difficulty in walking, not elsewhere classified (01/07/20) Weakness (01/07/20) History of falling (01/07/20) Physical Therapy Treatment Note PT-OP-A Visit Information Start: 05/28/19 08:11 Freq: Status: Active Protocol: Document 01/07/20 09:01 SP (Rec: 01/07/20 11:13 SP [id number]) Out-Patient Physical Therapy Visit Information Visit Information Visit Type Treatment Note Visit Start Time 09:01 Visit Stop Time 09:50 Total Visit Minutes 49 Visit Number 26 Number of SURGICAL SUPPLY ASSISTANT Visits 1 PT-OP-B Current Condition Start: 05/28/19 08:11 Freq: Status: Active Protocol: Document 10/31/19 11:15 SAK (Rec: 10/31/19 11:57 SAK [id number]) Current Condition History of Current Condition Onset Date 2014 Current Complaints weakness, requires assistance with all mobility and household tasks History of Current Condition Reports that she suffered a stroke in 2014 after surgery for brain aneurysm. CVA caused weakness on the left side of her body, gait and balance difficulty, seizures. Treatment Goals Patient/Caregiver Goals Improve strength, get faster with walking including on stairs, improve balance. PT-OP-C Subjective Start: 05/28/19 08:11 Freq: Status: Active Protocol: Document 01/07/20 09:01 SP (Rec: 01/07/20 11:11 SP [id number]) OP-PT Subjective Patient Comments Patient Comments Pt reported frustrated can't keep my L foot on the pedal with recumbent bike just acquired and using the carbon fiber AFO on LLE dont feel allows my knee to bend when walking as well. Pt requested when are we going to work on L ankle and toe AROM to help with walking? I am tired of walking the way I do and want to be back to normal again. PT-OP-D Balance Start: 05/28/19 08:11 Freq: Status: Active Protocol: Document 05/29/19 14:30 SAK (Rec: 05/30/19 14:24 SAK [id number]) OP-PT Balance Assessment Sitting Balance Static Sitting Balance Ability Good Dynamic Sitting Balance Ability Fair Standing Balance Static Standing Balance Ability Good Dynamic Standing Balance Ability Fair Device Used hemiwalker right Tinetti Balance Assessment Sitting Balance Sitting Balance Steady, safe Arising from Chair Attempts to Arise Able, requires >1 attempt Standing Balance Immediate Standing Balance Steady with support Standing Balance Steady, wide stance Nudged Response Begins to fall Standing with Eyes Closed Unsteady Turning Step Pattern Turning 360 Degrees Discontinuous steps Stability Turning 360 Degrees Unsteady, grabs/staggers Sitting Down Sitting Down Uses arms or unsteady Gait and Step Initiation of Gait Hesitancy, mult. attempts Right Foot Step Length Does not pass stance ft. Right Foot Step Height Does not clear floor Left Foot Step Length Does not pass stance foot Left Foot Step Height Does not clear floor Step Description Step Symmetry Step length not equal Gait Description Path Description Mild/moderate deviation Trunk Description Marked sway or uses aide Walking Stance Heels apart Scoring and Interpretation Tinetti Composite Score (points) 6 Interpretation of Scores High risk for falls(< 19) Herrera Fall Scale Copyright Permission PT-OP-E Functional Tests Start: 05/28/19 08:11 Freq: Status: Active Protocol: Document 01/07/20 09:01 SP (Rec: 01/07/20 11:11 SP [id number]) Functional Tests 2 Minute Walk Test Distance 44ft Device Used SBQC Comments improved L hip IR and decreased knee hyperextension PT-OP-G Mobility & Gait Start: 05/28/19 08:11 Freq: Status: Active Protocol: Document 05/29/19 14:30 [facility] (Rec: 05/30/19 14:24 [facility] [id number]) OP Mobility Evaluation Bed Mobility Rolling min assist Supine to and from Sit min assist Transfers Sit to Stand uses right UE Bed to Chair Transfers uses right UE Floor Transfers unable Functional Movements Squats uses primarily right LE OP Gait Assessment Gait Gait Assistance Required: Standby Assistance Distance (Feet) 20 Assistive Devices Assistive Device Morro Walker Orthotic/Prosthetic Devices or Brace: Yes Gait Deviations General Gait Pattern Decreased Stride Length, Decreased Feet Clearance, Lateral Trunk Lean,Wide Based Gait Factors Limiting Gait Function Factors Limiting Gait Function Abnormal Tonal Influences, Decreased Strength PT-OP-H Neuro Start: 05/28/19 08:11 Freq: Status: Active Protocol: Document 05/29/19 14:30 SAK (Rec: 05/30/19 14:24 [facility] [id number]) Sensation Evaluation Gross Sensation Gross Sensation Left UE Impaired,Left LE Impaired Sensation Description Paresthesia,Numbness Coordination Evaluation Lower Extremity Tests Left Alternate Heel to Knee; Heel to Toe Test Moderate Impairment Heel on Boles Test Moderate Impairment Foot Tapping Test Moderate Impairment PT-OP-K Range of Motion Start: 05/28/19 08:11 Freq: Status: Active Protocol: Document 05/29/19 14:30 [facility] (Rec: 05/30/19 14:24 SAK [id number]) Hip Goniometric Range of Motion Hip jake Hip ROM WFL Yes Knee Goniometric Range of Motion Knee jake Knee ROM WFL Yes Ankle and Foot Goniometric Range of Motion Ankle and Foot Left Active Ankle/Foot ROM WFL No Right Ankle/Foot ROM WFL Yes Ankle and Foot ROM Limitations Comments left ankle df -5, right 5 PT-OP-M Strength Start: 05/28/19 08:11 Freq: Status: Active Protocol: Document 05/29/19 14:30 [facility] (Rec: 05/30/19 14:24 SAK [id number]) Hip Strength Hip Manual Muscle Testing Left Flexion (L2) 3- Fair- Extension (S1) 2 Poor Abduction 2+ Poor+ External Rotation 3- Fair- Internal Rotation 3+ Fair+ Right Flexion (L2) 4 Good Extension (S1) 4- Good- Abduction 4 Good External Rotation 3+ Fair+ Internal Rotation 4- Good- Knee Strength Knee Manual Muscle Testing Left Flexion (S2) 3 Fair Extension (L3) 3+ Fair+ Right Flexion (S2) 4+ Good+ Extension (L3) 4+ Good+ Ankle/Foot Strength Ankle and Foot Manual Muscle Testing Left Dorsiflexion (L4) 0 Zero Plantarflexion (S1) 0 Zero Right Dorsiflexion (L4) 4+ Good+ Plantarflexion (S1) 4+ Good+ PT-OP-Q Treatments Start: 05/28/19 08:11 Freq: Status: Active Protocol: Document 01/07/20 09:01 SP (Rec: 01/07/20 11:11 SP [id number]) Cardio Equipment Recumbent Bicycle Duration (Minutes) 6 Resistance 8 Other Doffed AFO, L4 TB support L foot on pedel Fig 8, lateral support cuing alig Gait Training Gait Activity 1 Description level surface Device Used SBQC Level of Assistance close SBA Surface firm Distance/Duration 44ft x2 Treatment Focus L hip IR and decrease L knee hyperextension during 2MWT Comments 1.L4 TB tied at gait belt wrapped around LE and tied to left shoe with internal rotation facilitation 2. (Not done today) without tband with cueing for even steps & turning LLE in PT-OP-S Aquatic Treatment Start: 05/28/19 08:11 Freq: Status: Active Protocol: Document 07/13/19 10:15 NILAY (Rec: 07/13/19 15:03 NILAY [id number]) Aquatics Treatment Pool Entry/Exit Pool Entry/Exit Method Lift Assistance Minimal Assistance Water Walking Marching Water Level Chest Level Walking Equipment Ankle Weight- 2.5#, sm float on LUE, sm [place] float Level of Assistance Contact Guard Assistance, Minimal Assistance,Verbal Cues Sideways Water Level Chest Level Walking Equipment Ankle Weight- 2.5#, sm float on LUE Level of Assistance Contact Guard Assistance, Minimal Assistance,Verbal Cues Forwards Water Level Chest Level Walking Equipment Ankle Weight- 2.5#, sm float on LUE Level of Assistance Contact Guard Assistance, Minimal Assistance,Verbal Cues Lower Extremity Exercises pushing off wall with uni and bilateral LEs Details supine with feet against wall Body Position Supine Equipment neck and hip floats Reps/Duration 10 bilateral and 10 LLE Comments stabilizing at left knee to prevent lateral rotation left hip flex/ext Details standing on box with right foot Body Position Standing Water Level Waist Level Equipment Ankle Weight- 2.5# Reps/Duration 10 Comments manual assist for maintaining knee extension weight shifting staggard stance Details HH on wall Body Position Standing Water Level Waist Level Equipment Ankle Weight- 2.5#, sm float on LUE Comments assist with bracing left knee SLS LLE Details HH on wall Body Position Standing Water Level Waist Level Equipment Ankle Weight- 2.5#, sm float on LUE Reps/Duration 3g04-27 sec Comments assist with bracing LLE, weight [id number] Details at wall Body Position Standing Water Level Waist Level Equipment Ankle Weight- 2.5#, sm float on LUE Comments assist with bracing left knee Upper Extremity Exercises pull downs Details standing at wall Water Level Chest Level Equipment BBs Reps/Duration 10 Comments assist with LUE HABD/HADD with long BB Body Position Standing Water Level Chest Level Reps/Duration 12x Comments assist with left hand on BB push pull Details back against wall Body Position Standing Water Level Waist Level Equipment lg BB Reps/Duration 10x Spinal Exercises Bad Ragaz Details trunk stabilization Body Position Supine Equipment Neck Float, hip float, arm float, LE floats Reps/Duration 2 min Manual Techniques Christopher Villaseñor hip ab/ad with manual resistance supine PT-OP-T Assessment and Plan Start: 05/28/19 08:11 Freq: Status: Active Protocol: Document 01/07/20 09:01 SP (Rec: 01/07/20 11:11 SP [id number]) Physical Therapy Assessment Goals Four Impairment requires assistance with bed mobility and transfers Short Term Goal (STG) Patient will be able to perform all bed mobility independently to improve her functional independence. 10/31/19: good goal progress STG Duration goal met Snf Goal (LTG) Patient will be able to perform a floor transfer with SB to min assist 10/31/19: max assist today 01/02/20: has not been willing to try since 10/31/19 LTG Duration 04/02/20 Three Impairment weakness left UE and LE s/p CVA Pull Socket Assembler Goal (LTG) Improve functional strength in left LE, as evidenced by ability to move from sit > < stand without use of UE's. Request OT for left UE rehab. 10/31/19: OT starts tomorrow. Good progress with sit to stand, though mostly using right UE and LE 01/02/20: Improving ability to perform, able to increase weight-bearing through left LE with cues, but still some use of right UE LTG Duration 04/02/20 Two Impairment balance dysfunction with high risk for falls Snf Goal (LTG) Improve balance as evidenced by improvement in Tinnetti balance and gait score to low fall risk range to improve safety in the home and community. 10/31/19: remains high risk for falls 01/02/20: some improvement but still in high risk category LTG Duration 04/02/20 One Impairment requires morro-walker for gait, limited to household gait Pull Socket Assembler Goal (LTG) Patient able to ambulate with least restrictive device for functional community distances to improve her functional independence and quality of life. 10/30/19: no progress due to Covid 19. 11/02/19: able to ambulate with quad cane but with very slow speed, household distances, very short community distances . LTG Duration 04/02/20 Assessment Summary Assessment Extra time spent contacting her caregiver to bring seizure meds to appt, forgot to take today. Tx allowable focused on assessing TB support of LLE on recumbent bike pedal for home adaption with success in able to get L ankle and knee ROM with ball of foot positioned on pedal and lateral knee intermittent Min A contact support for proper alignment, improved and able to focus on strengthening, [employer] attended bike portion and videotaped TB placement, ankle/foot positioning and cuing for knee alignment to recreate at home for carryover . Initially pt stated didn't feel the Tb wrapping on LLE for hip IR support was helping but end of 2MWT reported felt Tibialis Anterior facilitation and maybe is helpful to reeducate LE functional mobility. Will continue to assess progress. Physical Therapy Plan Frequency and Duration Frequency of Treatment 2x/Week Duration of Treatment 12 wks Plan of Care Start Date 01/02/20 Plan of Care End Date 04/02/20 Therapeutic Interventions Therapeutic Interventions Aquatic Therapy,Balance Training,Gait Training,Home Exercise Program,Neuromuscular Re-education,Orthotic/ Prosthetic Management,Patient/ Caregiver Education,Self-Care/ Home Management,Taping, Therapeutic Activities, Therapeutic Exercises Modalities Cold Pack/Ice Massage,Hot Packs Next Visit Focus/Plan Next Note Type Progress Note Next Visit Plan Assess response to last tx: Tb ankel support on recumbent bike, Tb wrapping for LE hip IR support. Next tx add NMES to L DFs to assist facilitation of reeducating ROM end of next tx. Continue with use of theraband to facilitate derotation as we continue neuromuscular re- education and research derotation braces. Work on sit to stand without use of hand on hi/lo table, use of mirror. Continue PT per POC to improve strength, neuromuscular control, gait, and balance.
--- NOTE | 2020-01-09 08:12 | PT-OP ANOTE ---
patient cancelled, reason unknown
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
--- NOTE | 2020-01-28 10:30 | PT.OTN ---
Current Diagnoses Hemiplegia, unspecified affecting unspecified side (01/28/20) Difficulty in walking, not elsewhere classified (01/28/20) Weakness (01/28/20) History of falling (01/28/20) Physical Therapy Treatment Note PT-OP-A Visit Information Start: 05/28/19 08:11 Freq: Status: Active Protocol: Document 01/28/20 09:51 SP (Rec: 01/28/20 11:42 SP [id number]) Out-Patient Physical Therapy Visit Information Visit Information Visit Type Treatment Note Visit Start Time 09:51 Visit Stop Time 10:30 Total Visit Minutes 39 Visit Number 29 Number of MOTORBOAT MECHANIC HELPER Visits 1 PT-OP-B Current Condition Start: 05/28/19 08:11 Freq: Status: Active Protocol: Document 10/31/19 11:15 SAK (Rec: 10/31/19 11:57 SAK [id number]) Current Condition History of Current Condition Onset Date 2014 Current Complaints weakness, requires assistance with all mobility and household tasks History of Current Condition Reports that she suffered a stroke in 2014 after surgery for brain aneurysm. CVA caused weakness on the left side of her body, gait and balance difficulty, seizures. Treatment Goals Patient/Caregiver Goals Improve strength, get faster with walking including on stairs, improve balance. PT-OP-C Subjective Start: 05/28/19 08:11 Freq: Status: Active Protocol: Document 01/28/20 09:51 SP (Rec: 01/28/20 11:42 SP [id number]) OP-PT Subjective Patient Comments Patient Comments Pt arrived with rollator bike to assess use for home and velcro straps to don and assist keeping LLE foot placement to ride personal nustep. PT-OP-D Balance Start: 05/28/19 08:11 Freq: Status: Active Protocol: Document 05/29/19 14:30 SAK (Rec: 05/30/19 14:24 SAK [id number]) OP-PT Balance Assessment Sitting Balance Static Sitting Balance Ability Good Dynamic Sitting Balance Ability Fair Standing Balance Static Standing Balance Ability Good Dynamic Standing Balance Ability Fair Device Used [facility] right Tinetti Balance Assessment Sitting Balance Sitting Balance Steady, safe Arising from Chair Attempts to Arise Able, requires >1 attempt Standing Balance Immediate Standing Balance Steady with support Standing Balance Steady, wide stance Nudged Response Begins to fall Standing with Eyes Closed Unsteady Turning Step Pattern Turning 360 Degrees Discontinuous steps Stability Turning 360 Degrees Unsteady, grabs/staggers Sitting Down Sitting Down Uses arms or unsteady Gait and Step Initiation of Gait Hesitancy, mult. attempts Right Foot Step Length Does not pass stance ft. Right Foot Step Height Does not clear floor Left Foot Step Length Does not pass stance foot Left Foot Step Height Does not clear floor Step Description Step Symmetry Step length not equal Gait Description Path Description Mild/moderate deviation Trunk Description Marked sway or uses aide Walking Stance Heels apart Scoring and Interpretation Tinetti Composite Score (points) 6 Interpretation of Scores High risk for falls(< 19) Herrera Fall Scale Copyright Permission PT-OP-E Functional Tests Start: 05/28/19 08:11 Freq: Status: Active Protocol: Document 01/07/20 09:01 SP (Rec: 01/07/20 11:11 SP [id number]) Functional Tests 2 Minute Walk Test Distance 44ft Device Used SBQC Comments improved L hip IR and decreased knee hyperextension PT-OP-G Mobility & Gait Start: 05/28/19 08:11 Freq: Status: Active Protocol: Document 05/29/19 14:30 [facility] (Rec: 05/30/19 14:24 [facility] [id number]) OP Mobility Evaluation Bed Mobility Rolling min assist Supine to and from Sit min assist Transfers Sit to Stand uses right UE Bed to Chair Transfers uses right UE Floor Transfers unable Functional Movements Squats uses primarily right LE OP Gait Assessment Gait Gait Assistance Required: Standby Assistance Distance (Feet) 20 Assistive Devices Assistive Device Morro Walker Orthotic/Prosthetic Devices or Brace: Yes Gait Deviations General Gait Pattern Decreased Stride Length, Decreased Feet Clearance, Lateral Trunk Lean,Wide Based Gait Factors Limiting Gait Function Factors Limiting Gait Function Abnormal Tonal Influences, Decreased Strength PT-OP-H Neuro Start: 05/28/19 08:11 Freq: Status: Active Protocol: Document 05/29/19 14:30 SAK (Rec: 05/30/19 14:24 [facility] [id number]) Sensation Evaluation Gross Sensation Gross Sensation Left UE Impaired,Left LE Impaired Sensation Description Paresthesia,Numbness Coordination Evaluation Lower Extremity Tests Left Alternate Heel to Knee; Heel to Toe Test Moderate Impairment Heel on Boles Test Moderate Impairment Foot Tapping Test Moderate Impairment PT-OP-K Range of Motion Start: 05/28/19 08:11 Freq: Status: Active Protocol: Document 05/29/19 14:30 SAK (Rec: 05/30/19 14:24 SAK [id number]) Hip Goniometric Range of Motion Hip jake Hip ROM WFL Yes Knee Goniometric Range of Motion Knee jake Knee ROM WFL Yes Ankle and Foot Goniometric Range of Motion Ankle and Foot Left Active Ankle/Foot ROM WFL No Right Ankle/Foot ROM WFL Yes Ankle and Foot ROM Limitations Comments left ankle df -5, right 5 PT-OP-M Strength Start: 05/28/19 08:11 Freq: Status: Active Protocol: Document 05/29/19 14:30 SAK (Rec: 05/30/19 14:24 SAK [id number]) Hip Strength Hip Manual Muscle Testing Left Flexion (L2) 3- Fair- Extension (S1) 2 Poor Abduction 2+ Poor+ External Rotation 3- Fair- Internal Rotation 3+ Fair+ Right Flexion (L2) 4 Good Extension (S1) 4- Good- Abduction 4 Good External Rotation 3+ Fair+ Internal Rotation 4- Good- Knee Strength Knee Manual Muscle Testing Left Flexion (S2) 3 Fair Extension (L3) 3+ Fair+ Right Flexion (S2) 4+ Good+ Extension (L3) 4+ Good+ Ankle/Foot Strength Ankle and Foot Manual Muscle Testing Left Dorsiflexion (L4) 0 Zero Plantarflexion (S1) 0 Zero Right Dorsiflexion (L4) 4+ Good+ Plantarflexion (S1) 4+ Good+ PT-OP-Q Treatments Start: 05/28/19 08:11 Freq: Status: Active Protocol: Document 01/28/20 09:51 SP (Rec: 01/28/20 11:42 SP [id number]) Cardio Equipment Recumbent Bicycle Duration (Minutes) 5 Resistance 4 Seat Position 2-3 Other velcro straps post LLE heel for positioning Gait Training Gait Activity 1 Description level surface Device Used single point cane Level of Assistance close SBA Surface firm Distance/Duration 200 ft Treatment Focus L hip IR and decrease L knee hyperextension Comments 1.L4 TB tied at left shoe, wrapped around LE and tied to gait belt with internal rotation facilitation stair mgt Description forwad/ lateral Device Used R HR, quad cane, SPC Level of Assistance close SBA, CGA, Min A Surface 6 step ascend/descend step to gait Distance/Duration 4 stairs 3 sets Comments cued for slow LLE placement, TB wrapping around L leg facilitate medial rotation and prevent hyperextension. PT-OP-R Modalities Start: 05/28/19 08:11 Freq: Status: Active Protocol: Document 01/23/20 09:51 SAK (Rec: 01/23/20 14:57 SAK [id number]) Electric Stimulation Electric Stimulation Functional Electric Stimulation Body Location left anterior tib Duration (Minutes) 10 Intensity 37 Contraction Type Normal Cycle 10/10 Ramp 2.0 Patient Position Sitting Comments Croatian stim PT-OP-S Aquatic Treatment Start: 05/28/19 08:11 Freq: Status: Active Protocol: Document 07/13/19 10:15 LJ (Rec: 07/13/19 15:03 LJ [id number]) Aquatics Treatment Pool Entry/Exit Pool Entry/Exit Method Lift Assistance Minimal Assistance Water Walking Marching Water Level Chest Level Walking Equipment Ankle Weight- 2.5#, sm float on LUE, sm [place] float Level of Assistance Contact Guard Assistance, Minimal Assistance,Verbal Cues Sideways Water Level Chest Level Walking Equipment Ankle Weight- 2.5#, sm float on LUE Level of Assistance Contact Guard Assistance, Minimal Assistance,Verbal Cues Forwards Water Level Chest Level Walking Equipment Ankle Weight- 2.5#, sm float on LUE Level of Assistance Contact Guard Assistance, Minimal Assistance,Verbal Cues Lower Extremity Exercises pushing off wall with uni and bilateral LEs Details supine with feet against wall Body Position Supine Equipment neck and hip floats Reps/Duration 10 bilateral and 10 LLE Comments stabilizing at left knee to prevent lateral rotation left hip flex/ext Details standing on box with right foot Body Position Standing Water Level Waist Level Equipment Ankle Weight- 2.5# Reps/Duration 10 Comments manual assist for maintaining knee extension weight shifting staggard stance Details HH on wall Body Position Standing Water Level Waist Level Equipment Ankle Weight- 2.5#, sm float on LUE Comments assist with bracing left knee SLS LLE Details HH on wall Body Position Standing Water Level Waist Level Equipment Ankle Weight- 2.5#, sm float on LUE Reps/Duration 1h93-47 sec Comments assist with bracing LLE, weight [id number] Details at wall Body Position Standing Water Level Waist Level Equipment Ankle Weight- 2.5#, sm float on LUE Comments assist with bracing left knee Upper Extremity Exercises pull downs Details standing at wall Water Level Chest Level Equipment BBs Reps/Duration 10 Comments assist with LUE HABD/HADD with long BB Body Position Standing Water Level Chest Level Reps/Duration 12x Comments assist with left hand on BB push pull Details back against wall Body Position Standing Water Level Waist Level Equipment lg BB Reps/Duration 10x Spinal Exercises Bad Ragaz Details trunk stabilization Body Position Supine Equipment Neck Float, hip float, arm float, LE floats Reps/Duration 2 min Manual Techniques Bad Ragaz hip ab/ad with manual resistance supine PT-OP-T Assessment and Plan Start: 05/28/19 08:11 Freq: Status: Active Protocol: Document 01/28/20 09:51 SP (Rec: 01/28/20 11:42 SP [id number]) Physical Therapy Assessment Goals Four Impairment requires assistance with bed mobility and transfers Short Term Goal (STG) Patient will be able to perform all bed mobility independently to improve her functional independence. 10/31/19: good goal progress STG Duration goal met Usp Goal (LTG) Patient will be able to perform a floor transfer with SB to min assist 10/31/19: max assist today 01/02/20: has not been willing to try since 10/31/19 LTG Duration 04/02/20 Three Impairment weakness left UE and LE s/p CVA Feeder Driver Goal (LTG) Improve functional strength in left LE, as evidenced by ability to move from sit > < stand without use of UE's. Request OT for left UE rehab. 10/31/19: OT starts tomorrow. Good progress with sit to stand, though mostly using right UE and LE 01/02/20: Improving ability to perform, able to increase weight-bearing through left LE with cues, but still some use of right UE LTG Duration 04/02/20 Two Impairment balance dysfunction with high risk for falls Usp Goal (LTG) Improve balance as evidenced by improvement in Tinnetti balance and gait score to low fall risk range to improve safety in the home and community. 10/31/19: remains high risk for falls 01/02/20: some improvement but still in high risk category LTG Duration 04/02/20 One Impairment requires morro-walker for gait, limited to household gait Usp Goal (LTG) Patient able to ambulate with least restrictive device for functional community distances to improve her functional independence and quality of life. 10/30/19: no progress due to Covid 19. 11/02/19: able to ambulate with quad cane but with very slow speed, household distances, very short community distances . LTG Duration 04/02/20 Assessment Summary Assessment Education with pt and her caregiver on proper donning TB wrap to LLE foot>gait belt to assist medial rotation and promote knee flexion stability during gait and use of velcro straps on personal stationary front chair peddle blower and compressor assembler to assist LLe secured positioning with success and carried over to recumbent bike . Discussed will need someone to assist with velcro. Pt improved with ascend/descend 4 stairs x3 with TB wrapping security LLE positioning while using RHR initially close SBA then able to assess QC and SPC with increased CGA- Min support for safety with cuing for trunk upright and support for AD stability with success to allow her to enter/exit 5th wheel camper reported doesn't have a rail. Pt is making gains in confidence with gait, stair mgt and use of recumbent bike decreased assist required. Physical Therapy Plan Frequency and Duration Frequency of Treatment 2x/Week Duration of Treatment 12 wks Plan of Care Start Date 01/02/20 Plan of Care End Date 04/02/20 Therapeutic Interventions Therapeutic Interventions Aquatic Therapy,Balance Training,Gait Training,Home Exercise Program,Neuromuscular Re-education,Orthotic/ Prosthetic Management,Patient/ Caregiver Education,Self-Care/ Home Management,Taping, Therapeutic Activities, Therapeutic Exercises Modalities Cold Pack/Ice Massage,Hot Packs Next Visit Focus/Plan Next Note Type Treatment Note Next Visit Plan Continue PT with emphasis on neuro re-education of for improved gait and mobility, improved functional strength. Continue NMES left ankle df.
--- NOTE | 2020-01-30 11:45 | PT.OTN ---
Current Diagnoses Hemiplegia, unspecified affecting unspecified side (01/30/20) Difficulty in walking, not elsewhere classified (01/30/20) Weakness (01/30/20) History of falling (01/30/20) Physical Therapy Treatment Note PT-OP-A Visit Information Start: 05/28/19 08:11 Freq: Status: Active Protocol: Document 01/30/20 09:59 SAK (Rec: 01/30/20 10:31 SAK [id number]) Out-Patient Physical Therapy Visit Information Visit Information Visit Type Treatment Note Visit Start Time 09:45 Visit Stop Time 10:30 Total Visit Minutes 45 Visit Number 30 Number of RESIDENTIAL FINISH CARPENTER Visits 1 PT-OP-B Current Condition Start: 05/28/19 08:11 Freq: Status: Active Protocol: Document 10/31/19 11:15 SAK (Rec: 10/31/19 11:57 SAK [id number]) Current Condition History of Current Condition Onset Date 2014 Current Complaints weakness, requires assistance with all mobility and household tasks History of Current Condition Reports that she suffered a stroke in 2014 after surgery for brain aneurysm. CVA caused weakness on the left side of her body, gait and balance difficulty, seizures. Treatment Goals Patient/Caregiver Goals Improve strength, get faster with walking including on stairs, improve balance. PT-OP-C Subjective Start: 05/28/19 08:11 Freq: Status: Active Protocol: Document 01/30/20 09:59 SAK (Rec: 01/30/20 10:31 SAK [id number]) OP-PT Subjective Patient Comments Patient Comments Brings straps for use on recumbent ex bike today. Hasn 't used at home yet. PT-OP-D Balance Start: 05/28/19 08:11 Freq: Status: Active Protocol: Document 05/29/19 14:30 SAK (Rec: 05/30/19 14:24 SAK [id number]) OP-PT Balance Assessment Sitting Balance Static Sitting Balance Ability Good Dynamic Sitting Balance Ability Fair Standing Balance Static Standing Balance Ability Good Dynamic Standing Balance Ability Fair Device Used hemiwalker right Tinetti Balance Assessment Sitting Balance Sitting Balance Steady, safe Arising from Chair Attempts to Arise Able, requires >1 attempt Standing Balance Immediate Standing Balance Steady with support Standing Balance Steady, wide stance Nudged Response Begins to fall Standing with Eyes Closed Unsteady Turning Step Pattern Turning 360 Degrees Discontinuous steps Stability Turning 360 Degrees Unsteady, grabs/staggers Sitting Down Sitting Down Uses arms or unsteady Gait and Step Initiation of Gait Hesitancy, mult. attempts Right Foot Step Length Does not pass stance ft. Right Foot Step Height Does not clear floor Left Foot Step Length Does not pass stance foot Left Foot Step Height Does not clear floor Step Description Step Symmetry Step length not equal Gait Description Path Description Mild/moderate deviation Trunk Description Marked sway or uses aide Walking Stance Heels apart Scoring and Interpretation Tinetti Composite Score (points) 6 Interpretation of Scores High risk for falls(< 19) Herrera Fall Scale Copyright Permission PT-OP-E Functional Tests Start: 05/28/19 08:11 Freq: Status: Active Protocol: Document 01/07/20 09:01 SP (Rec: 01/07/20 11:11 SP [id number]) Functional Tests 2 Minute Walk Test Distance 44ft Device Used SBQC Comments improved L hip IR and decreased knee hyperextension PT-OP-G Mobility & Gait Start: 05/28/19 08:11 Freq: Status: Active Protocol: Document 05/29/19 14:30 SAK (Rec: 05/30/19 14:24 [facility] [id number]) OP Mobility Evaluation Bed Mobility Rolling min assist Supine to and from Sit min assist Transfers Sit to Stand uses right UE Bed to Chair Transfers uses right UE Floor Transfers unable Functional Movements Squats uses primarily right LE OP Gait Assessment Gait Gait Assistance Required: Standby Assistance Distance (Feet) 20 Assistive Devices Assistive Device Morro Walker Orthotic/Prosthetic Devices or Brace: Yes Gait Deviations General Gait Pattern Decreased Stride Length, Decreased Feet Clearance, Lateral Trunk Lean,Wide Based Gait Factors Limiting Gait Function Factors Limiting Gait Function Abnormal Tonal Influences, Decreased Strength PT-OP-H Neuro Start: 05/28/19 08:11 Freq: Status: Active Protocol: Document 05/29/19 14:30 SAK (Rec: 05/30/19 14:24 SAK [id number]) Sensation Evaluation Gross Sensation Gross Sensation Left UE Impaired,Left LE Impaired Sensation Description Paresthesia,Numbness Coordination Evaluation Lower Extremity Tests Left Alternate Heel to Knee; Heel to Toe Test Moderate Impairment Heel on Boles Test Moderate Impairment Foot Tapping Test Moderate Impairment PT-OP-K Range of Motion Start: 05/28/19 08:11 Freq: Status: Active Protocol: Document 05/29/19 14:30 SAK (Rec: 05/30/19 14:24 [facility] [id number]) Hip Goniometric Range of Motion Hip jake Hip ROM WFL Yes Knee Goniometric Range of Motion Knee jake Knee ROM WFL Yes Ankle and Foot Goniometric Range of Motion Ankle and Foot Left Active Ankle/Foot ROM WFL No Right Ankle/Foot ROM WFL Yes Ankle and Foot ROM Limitations Comments left ankle df -5, right 5 PT-OP-M Strength Start: 05/28/19 08:11 Freq: Status: Active Protocol: Document 05/29/19 14:30 [facility] (Rec: 05/30/19 14:24 [facility] [id number]) Hip Strength Hip Manual Muscle Testing Left Flexion (L2) 3- Fair- Extension (S1) 2 Poor Abduction 2+ Poor+ External Rotation 3- Fair- Internal Rotation 3+ Fair+ Right Flexion (L2) 4 Good Extension (S1) 4- Good- Abduction 4 Good External Rotation 3+ Fair+ Internal Rotation 4- Good- Knee Strength Knee Manual Muscle Testing Left Flexion (S2) 3 Fair Extension (L3) 3+ Fair+ Right Flexion (S2) 4+ Good+ Extension (L3) 4+ Good+ Ankle/Foot Strength Ankle and Foot Manual Muscle Testing Left Dorsiflexion (L4) 0 Zero Plantarflexion (S1) 0 Zero Right Dorsiflexion (L4) 4+ Good+ Plantarflexion (S1) 4+ Good+ PT-OP-Q Treatments Start: 05/28/19 08:11 Freq: Status: Active Protocol: Document 01/30/20 09:59 [facility] (Rec: 01/30/20 10:31 [facility] [id number]) Cardio Equipment Recumbent Bicycle Duration (Minutes) 10 Resistance 7 Seat Position 3 Other velcro straps post LLE heel for positioning, cues for knee alignment Gait Training Gait Activity 1 Description level surface Device Used quad cane, none Level of Assistance close SBA Surface firm Distance/Duration 200 ft Treatment Focus L hip IR and decrease L knee hyperextension Comments 1.L4 TB tied at left shoe, wrapped around LE and tied to gait belt with internal rotation facilitation cues for increased weight shift and stance time on left LE 15' without device but close to bar at wall, patient has difficulty trusting her left LE stair mgt Description forward Device Used quad cane Level of Assistance CG-min assist Surface 4 steps x 1, 6 steps' x 1 Comments cued for slow LLE placement, anterior weight shift, TB wrapping around L leg facilitate medial rotation and prevent hyperextension. Self-Care/Home Management Treatment Education Caregiver Education velcro straps on recumbant bike, theraband and gait belt to left LE for gait training at home. PT-OP-R Modalities Start: 05/28/19 08:11 Freq: Status: Active Protocol: Document 01/23/20 09:51 SAK (Rec: 01/23/20 14:57 SAK [id number]) Electric Stimulation Electric Stimulation Functional Electric Stimulation Body Location left anterior tib Duration (Minutes) 10 Intensity 37 Contraction Type Normal Cycle 10/10 Ramp 2.0 Patient Position Sitting Comments [place] stim PT-OP-S Aquatic Treatment Start: 05/28/19 08:11 Freq: Status: Active Protocol: Document 07/13/19 10:15 LJ (Rec: 07/13/19 15:03 LJ [id number]) Aquatics Treatment Pool Entry/Exit Pool Entry/Exit Method Lift Assistance Minimal Assistance Water Walking Marching Water Level Chest Level Walking Equipment Ankle Weight- 2.5#, sm float on LUE, sm [place] float Level of Assistance Contact Guard Assistance, Minimal Assistance,Verbal Cues Sideways Water Level Chest Level Walking Equipment Ankle Weight- 2.5#, sm float on LUE Level of Assistance Contact Guard Assistance, Minimal Assistance,Verbal Cues Forwards Water Level Chest Level Walking Equipment Ankle Weight- 2.5#, sm float on LUE Level of Assistance Contact Guard Assistance, Minimal Assistance,Verbal Cues Lower Extremity Exercises pushing off wall with uni and bilateral LEs Details supine with feet against wall Body Position Supine Equipment neck and hip floats Reps/Duration 10 bilateral and 10 LLE Comments stabilizing at left knee to prevent lateral rotation left hip flex/ext Details standing on box with right foot Body Position Standing Water Level Waist Level Equipment Ankle Weight- 2.5# Reps/Duration 10 Comments manual assist for maintaining knee extension weight shifting staggard stance Details HH on wall Body Position Standing Water Level Waist Level Equipment Ankle Weight- 2.5#, sm float on LUE Comments assist with bracing left knee SLS LLE Details HH on wall Body Position Standing Water Level Waist Level Equipment Ankle Weight- 2.5#, sm float on LUE Reps/Duration [id number] sec Comments assist with bracing LLE, weight [id number] Details at wall Body Position Standing Water Level Waist Level Equipment Ankle Weight- 2.5#, sm float on LUE Comments assist with bracing left knee Upper Extremity Exercises pull downs Details standing at wall Water Level Chest Level Equipment BBs Reps/Duration 10 Comments assist with LUE HABD/HADD with long BB Body Position Standing Water Level Chest Level Reps/Duration 12x Comments assist with left hand on BB push pull Details back against wall Body Position Standing Water Level Waist Level Equipment lg BB Reps/Duration 10x Spinal Exercises Bad Ragaz Details trunk stabilization Body Position Supine Equipment Neck Float, hip float, arm float, LE floats Reps/Duration 2 min Manual Techniques Bad Ragaz hip ab/ad with manual resistance supine PT-OP-T Assessment and Plan Start: 05/28/19 08:11 Freq: Status: Active Protocol: Document 01/30/20 09:59 [facility] (Rec: 01/30/20 10:31 SAK [id number]) Physical Therapy Assessment Goals Four Impairment requires assistance with bed mobility and transfers Short Term Goal (STG) Patient will be able to perform all bed mobility independently to improve her functional independence. 10/31/19: good goal progress STG Duration goal met Licensed Sales Producer Goal (LTG) Patient will be able to perform a floor transfer with SB to min assist 10/31/19: max assist today 01/02/20: has not been willing to try since 10/31/19 LTG Duration 04/02/20 Three Impairment weakness left UE and LE s/p CVA Alf Goal (LTG) Improve functional strength in left LE, as evidenced by ability to move from sit > < stand without use of UE's. Request OT for left UE rehab. 10/31/19: OT starts tomorrow. Good progress with sit to stand, though mostly using right UE and LE 01/02/20: Improving ability to perform, able to increase weight-bearing through left LE with cues, but still some use of right UE LTG Duration 04/02/20 Two Impairment balance dysfunction with high risk for falls Licensed Sales Producer Goal (LTG) Improve balance as evidenced by improvement in Tinnetti balance and gait score to low fall risk range to improve safety in the home and community. 10/31/19: remains high risk for falls 01/02/20: some improvement but still in high risk category LTG Duration 04/02/20 One Impairment requires morro-walker for gait, limited to household gait Alf Goal (LTG) Patient able to ambulate with least restrictive device for functional community distances to improve her functional independence and quality of life. 10/30/19: no progress due to Covid 19. 11/02/19: able to ambulate with quad cane but with very slow speed, household distances, very short community distances . LTG Duration 04/02/20 Assessment Summary Assessment Caregiver demonstrated good understanding of use of velcro straps and therband and gait belt for hip internal rotation facilitation. Physical Therapy Plan Frequency and Duration Frequency of Treatment 2x/Week Duration of Treatment 12 wks Plan of Care Start Date 01/02/20 Plan of Care End Date 04/02/20 Therapeutic Interventions Therapeutic Interventions Aquatic Therapy,Balance Training,Gait Training,Home Exercise Program,Neuromuscular Re-education,Orthotic/ Prosthetic Management,Patient/ Caregiver Education,Self-Care/ Home Management,Taping, Therapeutic Activities, Therapeutic Exercises Modalities Cold Pack/Ice Massage,Hot Packs Next Visit Focus/Plan Next Note Type Treatment Note Next Visit Plan Try SLS, standing with right foot on box or chair to increase WB through left LE and facilitate balance and stability through left LE. Continue PT with emphasis on neuro re-education of for improved gait and mobility, improved functional strength. Continue NMES left ankle df.
--- NOTE | 2020-02-04 09:42 | PT-OP ANOTE ---
Ptcalled and cancelled appt, does not have a ride today for an appt, offered late pm appt and stated still couldn't. Discussed has a 2 week gap in appts the next 2 weeks. I discussed adding Tues with me next week 02/11 at 1030 and going to communicate with waterfront director to call her to add 3 more until next scheduled appt 02/21. She confirmed would appreciate that.
--- NOTE | 2020-02-06 11:33 | PT.OTN ---
Current Diagnoses Hemiplegia, unspecified affecting unspecified side (02/06/20) Difficulty in walking, not elsewhere classified (02/06/20) Weakness (02/06/20) History of falling (02/06/20) Physical Therapy Treatment Note PT-OP-A Visit Information Start: 05/28/19 08:11 Freq: Status: Active Protocol: Document 02/06/20 09:46 SAK (Rec: 02/06/20 10:31 SAK [id number]) Out-Patient Physical Therapy Visit Information Visit Information Visit Type Treatment Note Visit Start Time 09:45 Visit Stop Time 10:30 Total Visit Minutes 45 Visit Number 45 Number of [place] ADMINISTRATOR Visits 0 PT-OP-B Current Condition Start: 05/28/19 08:11 Freq: Status: Active Protocol: Document 10/31/19 11:15 SAK (Rec: 10/31/19 11:57 SAK [id number]) Current Condition History of Current Condition Onset Date 2014 Current Complaints weakness, requires assistance with all mobility and household tasks History of Current Condition Reports that she suffered a stroke in 2014 after surgery for brain aneurysm. CVA caused weakness on the left side of her body, gait and balance difficulty, seizures. Treatment Goals Patient/Caregiver Goals Improve strength, get faster with walking including on stairs, improve balance. PT-OP-C Subjective Start: 05/28/19 08:11 Freq: Status: Active Protocol: Document 02/06/20 09:46 SAK (Rec: 02/06/20 10:31 SAK [id number]) OP-PT Subjective Patient Comments Patient Comments Feels weaker today. Having a hard time using bike at home by herself. PT-OP-D Balance Start: 05/28/19 08:11 Freq: Status: Active Protocol: Document 05/29/19 14:30 SAK (Rec: 05/30/19 14:24 [facility] [id number]) OP-PT Balance Assessment Sitting Balance Static Sitting Balance Ability Good Dynamic Sitting Balance Ability Fair Standing Balance Static Standing Balance Ability Good Dynamic Standing Balance Ability Fair Device Used [facility] right Tinetti Balance Assessment Sitting Balance Sitting Balance Steady, safe Arising from Chair Attempts to Arise Able, requires >1 attempt Standing Balance Immediate Standing Balance Steady with support Standing Balance Steady, wide stance Nudged Response Begins to fall Standing with Eyes Closed Unsteady Turning Step Pattern Turning 360 Degrees Discontinuous steps Stability Turning 360 Degrees Unsteady, grabs/staggers Sitting Down Sitting Down Uses arms or unsteady Gait and Step Initiation of Gait Hesitancy, mult. attempts Right Foot Step Length Does not pass stance ft. Right Foot Step Height Does not clear floor Left Foot Step Length Does not pass stance foot Left Foot Step Height Does not clear floor Step Description Step Symmetry Step length not equal Gait Description Path Description Mild/moderate deviation Trunk Description Marked sway or uses aide Walking Stance Heels apart Scoring and Interpretation Tinetti Composite Score (points) 6 Interpretation of Scores High risk for falls(< 19) Herrera Fall Scale Copyright Permission PT-OP-E Functional Tests Start: 05/28/19 08:11 Freq: Status: Active Protocol: Document 01/07/20 09:01 SP (Rec: 01/07/20 11:11 SP [id number]) Functional Tests 2 Minute Walk Test Distance 44ft Device Used SBQC Comments improved L hip IR and decreased knee hyperextension PT-OP-G Mobility & Gait Start: 05/28/19 08:11 Freq: Status: Active Protocol: Document 05/29/19 14:30 [facility] (Rec: 05/30/19 14:24 [facility] [id number]) OP Mobility Evaluation Bed Mobility Rolling min assist Supine to and from Sit min assist Transfers Sit to Stand uses right UE Bed to Chair Transfers uses right UE Floor Transfers unable Functional Movements Squats uses primarily right LE OP Gait Assessment Gait Gait Assistance Required: Standby Assistance Distance (Feet) 20 Assistive Devices Assistive Device Morro Walker Orthotic/Prosthetic Devices or Brace: Yes Gait Deviations General Gait Pattern Decreased Stride Length, Decreased Feet Clearance, Lateral Trunk Lean,Wide Based Gait Factors Limiting Gait Function Factors Limiting Gait Function Abnormal Tonal Influences, Decreased Strength PT-OP-H Neuro Start: 05/28/19 08:11 Freq: Status: Active Protocol: Document 05/29/19 14:30 SAK (Rec: 05/30/19 14:24 [facility] [id number]) Sensation Evaluation Gross Sensation Gross Sensation Left UE Impaired,Left LE Impaired Sensation Description Paresthesia,Numbness Coordination Evaluation Lower Extremity Tests Left Alternate Heel to Knee; Heel to Toe Test Moderate Impairment Heel on Boles Test Moderate Impairment Foot Tapping Test Moderate Impairment PT-OP-K Range of Motion Start: 05/28/19 08:11 Freq: Status: Active Protocol: Document 05/29/19 14:30 SAK (Rec: 05/30/19 14:24 [facility] [id number]) Hip Goniometric Range of Motion Hip jake Hip ROM WFL Yes Knee Goniometric Range of Motion Knee jake Knee ROM WFL Yes Ankle and Foot Goniometric Range of Motion Ankle and Foot Left Active Ankle/Foot ROM WFL No Right Ankle/Foot ROM WFL Yes Ankle and Foot ROM Limitations Comments left ankle df -5, right 5 PT-OP-M Strength Start: 05/28/19 08:11 Freq: Status: Active Protocol: Document 05/29/19 14:30 [facility] (Rec: 05/30/19 14:24 [facility] [id number]) Hip Strength Hip Manual Muscle Testing Left Flexion (L2) 3- Fair- Extension (S1) 2 Poor Abduction 2+ Poor+ External Rotation 3- Fair- Internal Rotation 3+ Fair+ Right Flexion (L2) 4 Good Extension (S1) 4- Good- Abduction 4 Good External Rotation 3+ Fair+ Internal Rotation 4- Good- Knee Strength Knee Manual Muscle Testing Left Flexion (S2) 3 Fair Extension (L3) 3+ Fair+ Right Flexion (S2) 4+ Good+ Extension (L3) 4+ Good+ Ankle/Foot Strength Ankle and Foot Manual Muscle Testing Left Dorsiflexion (L4) 0 Zero Plantarflexion (S1) 0 Zero Right Dorsiflexion (L4) 4+ Good+ Plantarflexion (S1) 4+ Good+ PT-OP-Q Treatments Start: 05/28/19 08:11 Freq: Status: Active Protocol: Document 02/06/20 09:46 [facility] (Rec: 02/06/20 10:31 [facility] [id number]) Cardio Equipment Recumbent Bicycle Duration (Minutes) 10 Resistance 4 Seat Position 3 Other cues for bilateral neutral LE alignment, verbal and manual Other Cardio Equipment Other Cardio Equipment .48 miles on recumbent bike Therapeutic Exercises Sitting Exercises HC stretch Side left Reps/Minutes 2x 30 Comments manual LAQ Reps/Minutes 10x Standing Exercises sit to stands Reps/Minutes 5x Comments manual cues for left LE alignment and L quad activation Gait Training Gait Activity 1 Description level surface Device Used quad cane, none Level of Assistance close SBA Surface firm Distance/Duration 100ft, 40ft Treatment Focus L hip IR and decrease L knee hyperextension Comments 1.L4 TB tied at left shoe, wrapped around LE and tied to gait belt with internal rotation facilitation cues for increased weight shift and stance time on left LE Unable to ambulate without device today. stair mgt Description forward Device Used quad cane Level of Assistance CG-min assist Surface 4 steps x 1, 6 steps' x 1 Comments cued for slow LLE placement, anterior weight shift, TB wrapping around L leg facilitate medial rotation and prevent hyperextension. Neuro Re-Education Treatment Balance Activities tiltboard Details A/P, side bal and weight shift PT-OP-R Modalities Start: 05/28/19 08:11 Freq: Status: Active Protocol: Document 01/23/20 09:51 SAK (Rec: 01/23/20 14:57 SAK [id number]) Electric Stimulation Electric Stimulation Functional Electric Stimulation Body Location left anterior tib Duration (Minutes) 10 Intensity 37 Contraction Type Normal Cycle 10/10 Ramp 2.0 Patient Position Sitting Comments Panamanian stim PT-OP-S Aquatic Treatment Start: 05/28/19 08:11 Freq: Status: Active Protocol: Document 07/13/19 10:15 LJ (Rec: 07/13/19 15:03 LJ [id number]) Aquatics Treatment Pool Entry/Exit Pool Entry/Exit Method Lift Assistance Minimal Assistance Water Walking Marching Water Level Chest Level Walking Equipment Ankle Weight- 2.5#, sm float on LUE, sm [place] float Level of Assistance Contact Guard Assistance, Minimal Assistance,Verbal Cues Sideways Water Level Chest Level Walking Equipment Ankle Weight- 2.5#, sm float on LUE Level of Assistance Contact Guard Assistance, Minimal Assistance,Verbal Cues Forwards Water Level Chest Level Walking Equipment Ankle Weight- 2.5#, sm float on LUE Level of Assistance Contact Guard Assistance, Minimal Assistance,Verbal Cues Lower Extremity Exercises pushing off wall with uni and bilateral LEs Details supine with feet against wall Body Position Supine Equipment neck and hip floats Reps/Duration 10 bilateral and 10 LLE Comments stabilizing at left knee to prevent lateral rotation left hip flex/ext Details standing on box with right foot Body Position Standing Water Level Waist Level Equipment Ankle Weight- 2.5# Reps/Duration 10 Comments manual assist for maintaining knee extension weight shifting staggard stance Details HH on wall Body Position Standing Water Level Waist Level Equipment Ankle Weight- 2.5#, sm float on LUE Comments assist with bracing left knee SLS LLE Details HH on wall Body Position Standing Water Level Waist Level Equipment Ankle Weight- 2.5#, sm float on LUE Reps/Duration [id number] sec Comments assist with bracing LLE, weight [id number] Details at wall Body Position Standing Water Level Waist Level Equipment Ankle Weight- 2.5#, sm float on LUE Comments assist with bracing left knee Upper Extremity Exercises pull downs Details standing at wall Water Level Chest Level Equipment BBs Reps/Duration 10 Comments assist with LUE HABD/HADD with long BB Body Position Standing Water Level Chest Level Reps/Duration 12x Comments assist with left hand on BB push pull Details back against wall Body Position Standing Water Level Waist Level Equipment lg BB Reps/Duration 10x Spinal Exercises Bad Ragaz Details trunk stabilization Body Position Supine Equipment Neck Float, hip float, arm float, LE floats Reps/Duration 2 min Manual Techniques Bad Ragaz hip ab/ad with manual resistance supine PT-OP-T Assessment and Plan Start: 05/28/19 08:11 Freq: Status: Active Protocol: Document 02/06/20 09:46 [facility] (Rec: 02/06/20 10:31 [facility] [id number]) Physical Therapy Assessment Goals Four Impairment requires assistance with bed mobility and transfers Short Term Goal (STG) Patient will be able to perform all bed mobility independently to improve her functional independence. 10/31/19: good goal progress STG Duration goal met Senior Living Goal (LTG) Patient will be able to perform a floor transfer with SB to min assist 10/31/19: max assist today 01/02/20: has not been willing to try since 10/31/19 LTG Duration 04/02/20 Three Impairment weakness left UE and LE s/p CVA Senior Living Goal (LTG) Improve functional strength in left LE, as evidenced by ability to move from sit > < stand without use of UE's. Request OT for left UE rehab. 10/31/19: OT starts tomorrow. Good progress with sit to stand, though mostly using right UE and LE 01/02/20: Improving ability to perform, able to increase weight-bearing through left LE with cues, but still some use of right UE LTG Duration 04/02/20 Two Impairment balance dysfunction with high risk for falls Weight Guesser Goal (LTG) Improve balance as evidenced by improvement in Tinnetti balance and gait score to low fall risk range to improve safety in the home and community. 10/31/19: remains high risk for falls 01/02/20: some improvement but still in high risk category LTG Duration 04/02/20 One Impairment requires morro-walker for gait, limited to household gait Weight Guesser Goal (LTG) Patient able to ambulate with least restrictive device for functional community distances to improve her functional independence and quality of life. 10/30/19: no progress due to Covid 19. 11/02/19: able to ambulate with quad cane but with very slow speed, household distances, very short community distances . LTG Duration 04/02/20 Assessment Summary Assessment Patient had difficult day today with low energy level, frustration at feeling weaker today, lower tolerance for gait. Did demonstrate improved understanding of left hip forward cue for hip protraction after visual demonstration Physical Therapy Plan Frequency and Duration Frequency of Treatment 2x/Week Duration of Treatment 12 wks Plan of Care Start Date 01/02/20 Plan of Care End Date 04/02/20 Therapeutic Interventions Therapeutic Interventions Aquatic Therapy,Balance Training,Gait Training,Home Exercise Program,Neuromuscular Re-education,Orthotic/ Prosthetic Management,Patient/ Caregiver Education,Self-Care/ Home Management,Taping, Therapeutic Activities, Therapeutic Exercises Modalities Cold Pack/Ice Massage,Hot Packs Next Visit Focus/Plan Next Note Type Treatment Note Next Visit Plan Try SLS, standing with right foot on box or chair to increase WB through left LE and facilitate balance and stability through left LE. Continue PT with emphasis on neuro re-education of for improved gait and mobility, improved functional strength. Continue NMES left ankle df when therapy schedule allows; today OT right after PT so not able due to time constraints
--- NOTE | 2020-02-12 09:47 | PT.OTN ---
Current Diagnoses Hemiplegia, unspecified affecting unspecified side (02/12/20) Difficulty in walking, not elsewhere classified (02/12/20) Weakness (02/12/20) History of falling (02/12/20) Physical Therapy Treatment Note PT-OP-A Visit Information Start: 05/28/19 08:11 Freq: Status: Active Protocol: Document 02/12/20 09:05 SP (Rec: 02/13/20 18:09 SP [id number]) Out-Patient Physical Therapy Visit Information Visit Information Visit Type Treatment Note Visit Start Time 09:05 Visit Stop Time 09:47 Total Visit Minutes 42 Visit Number 46 Number of BASKET BRAIDER Visits 1 PT-OP-B Current Condition Start: 05/28/19 08:11 Freq: Status: Active Protocol: Document 10/31/19 11:15 SAK (Rec: 10/31/19 11:57 SAK [id number]) Current Condition History of Current Condition Onset Date 2014 Current Complaints weakness, requires assistance with all mobility and household tasks History of Current Condition Reports that she suffered a stroke in 2014 after surgery for brain aneurysm. CVA caused weakness on the left side of her body, gait and balance difficulty, seizures. Treatment Goals Patient/Caregiver Goals Improve strength, get faster with walking including on stairs, improve balance. PT-OP-C Subjective Start: 05/28/19 08:11 Freq: Status: Active Protocol: Document 02/12/20 09:05 SP (Rec: 02/13/20 18:09 SP [id number]) OP-PT Subjective Patient Comments Patient Comments Pt reported is getting a new caregiver soon and continue assist her 3-4 hrs m-f, wish had more time due to much of time can be spent at appts, showering, dressing if needed and not as much help with walking, home bike use, stairs as wouldlike and her mom can' t help her. PT-OP-D Balance Start: 05/28/19 08:11 Freq: Status: Active Protocol: Document 05/29/19 14:30 SAK (Rec: 05/30/19 14:24 SAK [id number]) OP-PT Balance Assessment Sitting Balance Static Sitting Balance Ability Good Dynamic Sitting Balance Ability Fair Standing Balance Static Standing Balance Ability Good Dynamic Standing Balance Ability Fair Device Used hemiwalker right Tinetti Balance Assessment Sitting Balance Sitting Balance Steady, safe Arising from Chair Attempts to Arise Able, requires >1 attempt Standing Balance Immediate Standing Balance Steady with support Standing Balance Steady, wide stance Nudged Response Begins to fall Standing with Eyes Closed Unsteady Turning Step Pattern Turning 360 Degrees Discontinuous steps Stability Turning 360 Degrees Unsteady, grabs/staggers Sitting Down Sitting Down Uses arms or unsteady Gait and Step Initiation of Gait Hesitancy, mult. attempts Right Foot Step Length Does not pass stance ft. Right Foot Step Height Does not clear floor Left Foot Step Length Does not pass stance foot Left Foot Step Height Does not clear floor Step Description Step Symmetry Step length not equal Gait Description Path Description Mild/moderate deviation Trunk Description Marked sway or uses aide Walking Stance Heels apart Scoring and Interpretation Tinetti Composite Score (points) 6 Interpretation of Scores High risk for falls(< 19) Herrera Fall Scale Copyright Permission PT-OP-E Functional Tests Start: 05/28/19 08:11 Freq: Status: Active Protocol: Document 01/07/20 09:01 SP (Rec: 01/07/20 11:11 SP [id number]) Functional Tests 2 Minute Walk Test Distance 44ft Device Used SBQC Comments improved L hip IR and decreased knee hyperextension PT-OP-G Mobility & Gait Start: 05/28/19 08:11 Freq: Status: Active Protocol: Document 05/29/19 14:30 SAK (Rec: 05/30/19 14:24 SAK [id number]) OP Mobility Evaluation Bed Mobility Rolling min assist Supine to and from Sit min assist Transfers Sit to Stand uses right UE Bed to Chair Transfers uses right UE Floor Transfers unable Functional Movements Squats uses primarily right LE OP Gait Assessment Gait Gait Assistance Required: Standby Assistance Distance (Feet) 20 Assistive Devices Assistive Device Morro Walker Orthotic/Prosthetic Devices or Brace: Yes Gait Deviations General Gait Pattern Decreased Stride Length, Decreased Feet Clearance, Lateral Trunk Lean,Wide Based Gait Factors Limiting Gait Function Factors Limiting Gait Function Abnormal Tonal Influences, Decreased Strength PT-OP-H Neuro Start: 05/28/19 08:11 Freq: Status: Active Protocol: Document 05/29/19 14:30 SAK (Rec: 05/30/19 14:24 SAK [id number]) Sensation Evaluation Gross Sensation Gross Sensation Left UE Impaired,Left LE Impaired Sensation Description Paresthesia,Numbness Coordination Evaluation Lower Extremity Tests Left Alternate Heel to Knee; Heel to Toe Test Moderate Impairment Heel on Boles Test Moderate Impairment Foot Tapping Test Moderate Impairment PT-OP-K Range of Motion Start: 05/28/19 08:11 Freq: Status: Active Protocol: Document 05/29/19 14:30 SAK (Rec: 05/30/19 14:24 SAK [id number]) Hip Goniometric Range of Motion Hip jake Hip ROM WFL Yes Knee Goniometric Range of Motion Knee jake Knee ROM WFL Yes Ankle and Foot Goniometric Range of Motion Ankle and Foot Left Active Ankle/Foot ROM WFL No Right Ankle/Foot ROM WFL Yes Ankle and Foot ROM Limitations Comments left ankle df -5, right 5 PT-OP-M Strength Start: 05/28/19 08:11 Freq: Status: Active Protocol: Document 05/29/19 14:30 [facility] (Rec: 05/30/19 14:24 SAK [id number]) Hip Strength Hip Manual Muscle Testing Left Flexion (L2) 3- Fair- Extension (S1) 2 Poor Abduction 2+ Poor+ External Rotation 3- Fair- Internal Rotation 3+ Fair+ Right Flexion (L2) 4 Good Extension (S1) 4- Good- Abduction 4 Good External Rotation 3+ Fair+ Internal Rotation 4- Good- Knee Strength Knee Manual Muscle Testing Left Flexion (S2) 3 Fair Extension (L3) 3+ Fair+ Right Flexion (S2) 4+ Good+ Extension (L3) 4+ Good+ Ankle/Foot Strength Ankle and Foot Manual Muscle Testing Left Dorsiflexion (L4) 0 Zero Plantarflexion (S1) 0 Zero Right Dorsiflexion (L4) 4+ Good+ Plantarflexion (S1) 4+ Good+ PT-OP-Q Treatments Start: 05/28/19 08:11 Freq: Status: Active Protocol: Document 02/12/20 09:05 SP (Rec: 02/13/20 18:09 SP [id number]) Cardio Equipment Recumbent Elliptical (Biodex) Duration (Minutes) 6 Resistance 2 Other 161 steps, AFO donned, unable alejandro LUE on arm bar w/support, LLE add cues Gait Training Gait Activity 1 Description level surface (Blue TB spiral wrap) Device Used SPC Level of Assistance close SBA Surface firm Distance/Duration 120 ft, 40 ft x2 Treatment Focus L hip IR and decrease L knee hyperextension Comments 1.L4 TB tied at left shoe, wrapped around clockwise LE and tied to gait belt assist with internal rotation foot/ hip facilitation cues for increased weight shift and stance time on left LE Unable to ambulate without device today. Neuro Re-Education Treatment Balance Activities step taps at rail Equipment 4 step, R rail Reps/Duration 2x5 BLE Comments w/ Tb wrapping PT-OP-R Modalities Start: 05/28/19 08:11 Freq: Status: Active Protocol: Document 01/23/20 09:51 SAK (Rec: 01/23/20 14:57 SAK [id number]) Electric Stimulation Electric Stimulation Functional Electric Stimulation Body Location left anterior tib Duration (Minutes) 10 Intensity 37 Contraction Type Normal Cycle 10/10 Ramp 2.0 Patient Position Sitting Comments [place] stim PT-OP-S Aquatic Treatment Start: 05/28/19 08:11 Freq: Status: Active Protocol: Document 07/13/19 10:15 LJ (Rec: 07/13/19 15:03 LJ [id number]) Aquatics Treatment Pool Entry/Exit Pool Entry/Exit Method Lift Assistance Minimal Assistance Water Walking Marching Water Level Chest Level Walking Equipment Ankle Weight- 2.5#, sm float on LUE, sm [place] float Level of Assistance Contact Guard Assistance, Minimal Assistance,Verbal Cues Sideways Water Level Chest Level Walking Equipment Ankle Weight- 2.5#, sm float on LUE Level of Assistance Contact Guard Assistance, Minimal Assistance,Verbal Cues Forwards Water Level Chest Level Walking Equipment Ankle Weight- 2.5#, sm float on LUE Level of Assistance Contact Guard Assistance, Minimal Assistance,Verbal Cues Lower Extremity Exercises pushing off wall with uni and bilateral LEs Details supine with feet against wall Body Position Supine Equipment neck and hip floats Reps/Duration 10 bilateral and 10 LLE Comments stabilizing at left knee to prevent lateral rotation left hip flex/ext Details standing on box with right foot Body Position Standing Water Level Waist Level Equipment Ankle Weight- 2.5# Reps/Duration 10 Comments manual assist for maintaining knee extension weight shifting staggard stance Details HH on wall Body Position Standing Water Level Waist Level Equipment Ankle Weight- 2.5#, sm float on LUE Comments assist with bracing left knee SLS LLE Details HH on wall Body Position Standing Water Level Waist Level Equipment Ankle Weight- 2.5#, sm float on LUE Reps/Duration 8x27-24 sec Comments assist with bracing LLE, weight [id number] Details at wall Body Position Standing Water Level Waist Level Equipment Ankle Weight- 2.5#, sm float on LUE Comments assist with bracing left knee Upper Extremity Exercises pull downs Details standing at wall Water Level Chest Level Equipment BBs Reps/Duration 10 Comments assist with LUE HABD/HADD with long BB Body Position Standing Water Level Chest Level Reps/Duration 12x Comments assist with left hand on BB push pull Details back against wall Body Position Standing Water Level Waist Level Equipment lg BB Reps/Duration 10x Spinal Exercises Bad Ragaz Details trunk stabilization Body Position Supine Equipment Neck Float, hip float, arm float, LE floats Reps/Duration 2 min Manual Techniques Bad Ragaz hip ab/ad with manual resistance supine PT-OP-T Assessment and Plan Start: 05/28/19 08:11 Freq: Status: Active Protocol: Document 02/12/20 09:05 SP (Rec: 02/13/20 18:09 SP [id number]) Physical Therapy Assessment Goals Four Impairment requires assistance with bed mobility and transfers Short Term Goal (STG) Patient will be able to perform all bed mobility independently to improve her functional independence. 10/31/19: good goal progress STG Duration goal met Body Maker Machine Setter Goal (LTG) Patient will be able to perform a floor transfer with SB to min assist 10/31/19: max assist today 01/02/20: has not been willing to try since 10/31/19 LTG Duration 04/02/20 Three Impairment weakness left UE and LE s/p CVA Assisted Goal (LTG) Improve functional strength in left LE, as evidenced by ability to move from sit > < stand without use of UE's. Request OT for left UE rehab. 10/31/19: OT starts tomorrow. Good progress with sit to stand, though mostly using right UE and LE 01/02/20: Improving ability to perform, able to increase weight-bearing through left LE with cues, but still some use of right UE LTG Duration 04/02/20 Two Impairment balance dysfunction with high risk for falls Body Maker Machine Setter Goal (LTG) Improve balance as evidenced by improvement in Tinnetti balance and gait score to low fall risk range to improve safety in the home and community. 10/31/19: remains high risk for falls 01/02/20: some improvement but still in high risk category LTG Duration 04/02/20 One Impairment requires morro-walker for gait, limited to household gait Assisted Goal (LTG) Patient able to ambulate with least restrictive device for functional community distances to improve her functional independence and quality of life. 10/30/19: no progress due to Covid 19. 11/02/19: able to ambulate with quad cane but with very slow speed, household distances, very short community distances . LTG Duration 04/02/20 Assessment Summary Assessment Pt L foot foward in shoe and AFO, self repositioned when sitting on biodex, readjusted strap over anterior ankle and educated caregiver to assess when arrives for improved L ankle support. Reviewed Tb wrapping around LLE clockwise for L hip IR support during gait and reeducationing muscle strengthening. Discussed change in caregiver happening soon and would be good for next persont o attend tx's for education on carryover gait, stairs and bike assist pt requires and wants to progress at home as well to improve function and continue make gains. Suggested mother to attend for education on recumbent bike strap donning to also allow pt to perform more often at home. Pt improved in decrease attention needed for hip IR post biodex to chair at rail pre Tb wrapping short gait. Physical Therapy Plan Frequency and Duration Frequency of Treatment 2x/Week Duration of Treatment 12 wks Plan of Care Start Date 01/02/20 Plan of Care End Date 04/02/20 Therapeutic Interventions Therapeutic Interventions Aquatic Therapy,Balance Training,Gait Training,Home Exercise Program,Neuromuscular Re-education,Orthotic/ Prosthetic Management,Patient/ Caregiver Education,Self-Care/ Home Management,Taping, Therapeutic Activities, Therapeutic Exercises Modalities Cold Pack/Ice Massage,Hot Packs Next Visit Focus/Plan Next Note Type Treatment Note Next Visit Plan Try SLS, standing with right foot on box or chair to increase WB through left LE and facilitate balance and stability through left LE. Continue PT with emphasis on neuro re-education of for improved gait and mobility, improved functional strength. Continue NMES left ankle df when therapy schedule allows
--- NOTE | 2020-02-13 09:47 | PT.OTN ---
Current Diagnoses Hemiplegia, unspecified affecting unspecified side (02/12/20) Difficulty in walking, not elsewhere classified (02/12/20) Weakness (02/12/20) History of falling (02/12/20) Physical Therapy Treatment Note PT-OP-A Visit Information Start: 05/28/19 08:11 Freq: Status: Active Protocol: Document 02/12/20 09:05 SP (Rec: 02/13/20 18:09 SP [id number]) Out-Patient Physical Therapy Visit Information Visit Information Visit Type Treatment Note Visit Start Time 09:05 Visit Stop Time 09:47 Total Visit Minutes 42 Visit Number 46 Number of POWER TOOL REPAIRER Visits 1 PT-OP-B Current Condition Start: 05/28/19 08:11 Freq: Status: Active Protocol: Document 10/31/19 11:15 SAK (Rec: 10/31/19 11:57 SAK [id number]) Current Condition History of Current Condition Onset Date 2014 Current Complaints weakness, requires assistance with all mobility and household tasks History of Current Condition Reports that she suffered a stroke in 2014 after surgery for brain aneurysm. CVA caused weakness on the left side of her body, gait and balance difficulty, seizures. Treatment Goals Patient/Caregiver Goals Improve strength, get faster with walking including on stairs, improve balance. PT-OP-C Subjective Start: 05/28/19 08:11 Freq: Status: Active Protocol: Document 02/12/20 09:05 SP (Rec: 02/13/20 18:09 SP [id number]) OP-PT Subjective Patient Comments Patient Comments Pt reported is getting a new caregiver soon and continue assist her 3-4 hrs m-f, wish had more time due to much of time can be spent at appts, showering, dressing if needed and not as much help with walking, home bike use, stairs as wouldlike and her mom can' t help her. PT-OP-D Balance Start: 05/28/19 08:11 Freq: Status: Active Protocol: Document 05/29/19 14:30 SAK (Rec: 05/30/19 14:24 SAK [id number]) OP-PT Balance Assessment Sitting Balance Static Sitting Balance Ability Good Dynamic Sitting Balance Ability Fair Standing Balance Static Standing Balance Ability Good Dynamic Standing Balance Ability Fair Device Used hemiwalker right Tinetti Balance Assessment Sitting Balance Sitting Balance Steady, safe Arising from Chair Attempts to Arise Able, requires >1 attempt Standing Balance Immediate Standing Balance Steady with support Standing Balance Steady, wide stance Nudged Response Begins to fall Standing with Eyes Closed Unsteady Turning Step Pattern Turning 360 Degrees Discontinuous steps Stability Turning 360 Degrees Unsteady, grabs/staggers Sitting Down Sitting Down Uses arms or unsteady Gait and Step Initiation of Gait Hesitancy, mult. attempts Right Foot Step Length Does not pass stance ft. Right Foot Step Height Does not clear floor Left Foot Step Length Does not pass stance foot Left Foot Step Height Does not clear floor Step Description Step Symmetry Step length not equal Gait Description Path Description Mild/moderate deviation Trunk Description Marked sway or uses aide Walking Stance Heels apart Scoring and Interpretation Tinetti Composite Score (points) 6 Interpretation of Scores High risk for falls(< 19) Herrera Fall Scale Copyright Permission PT-OP-E Functional Tests Start: 05/28/19 08:11 Freq: Status: Active Protocol: Document 01/07/20 09:01 SP (Rec: 01/07/20 11:11 SP [id number]) Functional Tests 2 Minute Walk Test Distance 44ft Device Used SBQC Comments improved L hip IR and decreased knee hyperextension PT-OP-G Mobility & Gait Start: 05/28/19 08:11 Freq: Status: Active Protocol: Document 05/29/19 14:30 SAK (Rec: 05/30/19 14:24 SAK [id number]) OP Mobility Evaluation Bed Mobility Rolling min assist Supine to and from Sit min assist Transfers Sit to Stand uses right UE Bed to Chair Transfers uses right UE Floor Transfers unable Functional Movements Squats uses primarily right LE OP Gait Assessment Gait Gait Assistance Required: Standby Assistance Distance (Feet) 20 Assistive Devices Assistive Device Morro Walker Orthotic/Prosthetic Devices or Brace: Yes Gait Deviations General Gait Pattern Decreased Stride Length, Decreased Feet Clearance, Lateral Trunk Lean,Wide Based Gait Factors Limiting Gait Function Factors Limiting Gait Function Abnormal Tonal Influences, Decreased Strength PT-OP-H Neuro Start: 05/28/19 08:11 Freq: Status: Active Protocol: Document 05/29/19 14:30 SAK (Rec: 05/30/19 14:24 SAK [id number]) Sensation Evaluation Gross Sensation Gross Sensation Left UE Impaired,Left LE Impaired Sensation Description Paresthesia,Numbness Coordination Evaluation Lower Extremity Tests Left Alternate Heel to Knee; Heel to Toe Test Moderate Impairment Heel on Boles Test Moderate Impairment Foot Tapping Test Moderate Impairment PT-OP-K Range of Motion Start: 05/28/19 08:11 Freq: Status: Active Protocol: Document 05/29/19 14:30 SAK (Rec: 05/30/19 14:24 SAK [id number]) Hip Goniometric Range of Motion Hip jake Hip ROM WFL Yes Knee Goniometric Range of Motion Knee jake Knee ROM WFL Yes Ankle and Foot Goniometric Range of Motion Ankle and Foot Left Active Ankle/Foot ROM WFL No Right Ankle/Foot ROM WFL Yes Ankle and Foot ROM Limitations Comments left ankle df -5, right 5 PT-OP-M Strength Start: 05/28/19 08:11 Freq: Status: Active Protocol: Document 05/29/19 14:30 [facility] (Rec: 05/30/19 14:24 SAK [id number]) Hip Strength Hip Manual Muscle Testing Left Flexion (L2) 3- Fair- Extension (S1) 2 Poor Abduction 2+ Poor+ External Rotation 3- Fair- Internal Rotation 3+ Fair+ Right Flexion (L2) 4 Good Extension (S1) 4- Good- Abduction 4 Good External Rotation 3+ Fair+ Internal Rotation 4- Good- Knee Strength Knee Manual Muscle Testing Left Flexion (S2) 3 Fair Extension (L3) 3+ Fair+ Right Flexion (S2) 4+ Good+ Extension (L3) 4+ Good+ Ankle/Foot Strength Ankle and Foot Manual Muscle Testing Left Dorsiflexion (L4) 0 Zero Plantarflexion (S1) 0 Zero Right Dorsiflexion (L4) 4+ Good+ Plantarflexion (S1) 4+ Good+ PT-OP-Q Treatments Start: 05/28/19 08:11 Freq: Status: Active Protocol: Document 02/12/20 09:05 SP (Rec: 02/13/20 18:09 SP [id number]) Cardio Equipment Recumbent Elliptical (Biodex) Duration (Minutes) 6 Resistance 2 Other 161 steps, AFO donned, unable alejandro LUE on arm bar w/support, LLE add cues Gait Training Gait Activity 1 Description level surface (Blue TB spiral wrap) Device Used SPC Level of Assistance close SBA Surface firm Distance/Duration 120 ft, 40 ft x2 Treatment Focus L hip IR and decrease L knee hyperextension Comments 1.L4 TB tied at left shoe, wrapped around clockwise LE and tied to gait belt assist with internal rotation foot/ hip facilitation cues for increased weight shift and stance time on left LE Unable to ambulate without device today. Neuro Re-Education Treatment Balance Activities step taps at rail Equipment 4 step, R rail Reps/Duration 2x5 BLE Comments w/ Tb wrapping PT-OP-R Modalities Start: 05/28/19 08:11 Freq: Status: Active Protocol: Document 01/23/20 09:51 SAK (Rec: 01/23/20 14:57 SAK [id number]) Electric Stimulation Electric Stimulation Functional Electric Stimulation Body Location left anterior tib Duration (Minutes) 10 Intensity 37 Contraction Type Normal Cycle 10/10 Ramp 2.0 Patient Position Sitting Comments Finnish stim PT-OP-S Aquatic Treatment Start: 05/28/19 08:11 Freq: Status: Active Protocol: Document 07/13/19 10:15 LJ (Rec: 07/13/19 15:03 LJ [id number]) Aquatics Treatment Pool Entry/Exit Pool Entry/Exit Method Lift Assistance Minimal Assistance Water Walking Marching Water Level Chest Level Walking Equipment Ankle Weight- 2.5#, sm float on LUE, sm [place] float Level of Assistance Contact Guard Assistance, Minimal Assistance,Verbal Cues Sideways Water Level Chest Level Walking Equipment Ankle Weight- 2.5#, sm float on LUE Level of Assistance Contact Guard Assistance, Minimal Assistance,Verbal Cues Forwards Water Level Chest Level Walking Equipment Ankle Weight- 2.5#, sm float on LUE Level of Assistance Contact Guard Assistance, Minimal Assistance,Verbal Cues Lower Extremity Exercises pushing off wall with uni and bilateral LEs Details supine with feet against wall Body Position Supine Equipment neck and hip floats Reps/Duration 10 bilateral and 10 LLE Comments stabilizing at left knee to prevent lateral rotation left hip flex/ext Details standing on box with right foot Body Position Standing Water Level Waist Level Equipment Ankle Weight- 2.5# Reps/Duration 10 Comments manual assist for maintaining knee extension weight shifting staggard stance Details HH on wall Body Position Standing Water Level Waist Level Equipment Ankle Weight- 2.5#, sm float on LUE Comments assist with bracing left knee SLS LLE Details HH on wall Body Position Standing Water Level Waist Level Equipment Ankle Weight- 2.5#, sm float on LUE Reps/Duration [id number] sec Comments assist with bracing LLE, weight [id number] Details at wall Body Position Standing Water Level Waist Level Equipment Ankle Weight- 2.5#, sm float on LUE Comments assist with bracing left knee Upper Extremity Exercises pull downs Details standing at wall Water Level Chest Level Equipment BBs Reps/Duration 10 Comments assist with LUE HABD/HADD with long BB Body Position Standing Water Level Chest Level Reps/Duration 12x Comments assist with left hand on BB push pull Details back against wall Body Position Standing Water Level Waist Level Equipment lg BB Reps/Duration 10x Spinal Exercises Bad Ragaz Details trunk stabilization Body Position Supine Equipment Neck Float, hip float, arm float, LE floats Reps/Duration 2 min Manual Techniques Bad Ragaz hip ab/ad with manual resistance supine PT-OP-T Assessment and Plan Start: 05/28/19 08:11 Freq: Status: Active Protocol: Document 02/12/20 09:05 SP (Rec: 02/13/20 18:09 SP [id number]) Physical Therapy Assessment Goals Four Impairment requires assistance with bed mobility and transfers Short Term Goal (STG) Patient will be able to perform all bed mobility independently to improve her functional independence. 10/31/19: good goal progress STG Duration goal met Retail Sales Associate Bilingual Goal (LTG) Patient will be able to perform a floor transfer with SB to min assist 10/31/19: max assist today 01/02/20: has not been willing to try since 10/31/19 LTG Duration 04/02/20 Three Impairment weakness left UE and LE s/p CVA Prison Goal (LTG) Improve functional strength in left LE, as evidenced by ability to move from sit > < stand without use of UE's. Request OT for left UE rehab. 10/31/19: OT starts tomorrow. Good progress with sit to stand, though mostly using right UE and LE 01/02/20: Improving ability to perform, able to increase weight-bearing through left LE with cues, but still some use of right UE LTG Duration 04/02/20 Two Impairment balance dysfunction with high risk for falls Retail Sales Associate Bilingual Goal (LTG) Improve balance as evidenced by improvement in Tinnetti balance and gait score to low fall risk range to improve safety in the home and community. 10/31/19: remains high risk for falls 01/02/20: some improvement but still in high risk category LTG Duration 04/02/20 One Impairment requires morro-walker for gait, limited to household gait Prison Goal (LTG) Patient able to ambulate with least restrictive device for functional community distances to improve her functional independence and quality of life. 10/30/19: no progress due to Covid 19. 11/02/19: able to ambulate with quad cane but with very slow speed, household distances, very short community distances . LTG Duration 04/02/20 Assessment Summary Assessment Pt L foot foward in shoe and AFO, self repositioned when sitting on biodex, readjusted strap over anterior ankle and educated caregiver to assess when arrives for improved L ankle support. Reviewed Tb wrapping around LLE clockwise for L hip IR support during gait and reeducationing muscle strengthening. Discussed change in caregiver happening soon and would be good for next persont o attend tx's for education on carryover gait, stairs and bike assist pt requires and wants to progress at home as well to improve function and continue make gains. Suggested mother to attend for education on recumbent bike strap donning to also allow pt to perform more often at home. Pt improved in decrease attention needed for hip IR post biodex to chair at rail pre Tb wrapping short gait. Physical Therapy Plan Frequency and Duration Frequency of Treatment 2x/Week Duration of Treatment 12 wks Plan of Care Start Date 01/02/20 Plan of Care End Date 04/02/20 Therapeutic Interventions Therapeutic Interventions Aquatic Therapy,Balance Training,Gait Training,Home Exercise Program,Neuromuscular Re-education,Orthotic/ Prosthetic Management,Patient/ Caregiver Education,Self-Care/ Home Management,Taping, Therapeutic Activities, Therapeutic Exercises Modalities Cold Pack/Ice Massage,Hot Packs Next Visit Focus/Plan Next Note Type Treatment Note Next Visit Plan Try SLS, standing with right foot on box or chair to increase WB through left LE and facilitate balance and stability through left LE. Continue PT with emphasis on neuro re-education of for improved gait and mobility, improved functional strength. Continue NMES left ankle df when therapy schedule allows
--- NOTE | 2020-02-22 12:00 | PT.OTN ---
Current Diagnoses Hemiplegia, unspecified affecting unspecified side (02/22/20) Difficulty in walking, not elsewhere classified (02/22/20) Weakness (02/22/20) History of falling (02/22/20) Physical Therapy Treatment Note PT-OP-A Visit Information Start: 05/28/19 08:11 Freq: Status: Active Protocol: Document 02/22/20 12:52 MA (Rec: 02/22/20 13:18 MA [id number]) Out-Patient Physical Therapy Visit Information Visit Information Visit Type Treatment Note Visit Start Time 11:15 Visit Stop Time 12:00 Total Visit Minutes 45 Visit Number 47 Number of MUTUAL FUNDS AGENT Visits 2 PT-OP-B Current Condition Start: 05/28/19 08:11 Freq: Status: Active Protocol: Document 10/31/19 11:15 SAK (Rec: 10/31/19 11:57 SAK [id number]) Current Condition History of Current Condition Onset Date 2014 Current Complaints weakness, requires assistance with all mobility and household tasks History of Current Condition Reports that she suffered a stroke in 2014 after surgery for brain aneurysm. CVA caused weakness on the left side of her body, gait and balance difficulty, seizures. Treatment Goals Patient/Caregiver Goals Improve strength, get faster with walking including on stairs, improve balance. PT-OP-C Subjective Start: 05/28/19 08:11 Freq: Status: Active Protocol: Document 02/22/20 12:52 MA (Rec: 02/22/20 13:18 MA [id number]) OP-PT Subjective Patient Comments Patient Comments PT arrived in from dryneedling treatment with new caregiver. She discussed wanting to get a powerchair and work on educating new caregiver on stair training and on TB placement. Pt gave the okay to talk to her mom about her POC. At end of session pt asked to work on getting into and out of prone position next session to help with her drs appts PT-OP-D Balance Start: 05/28/19 08:11 Freq: Status: Active Protocol: Document 05/29/19 14:30 SAK (Rec: 05/30/19 14:24 SAK [id number]) OP-PT Balance Assessment Sitting Balance Static Sitting Balance Ability Good Dynamic Sitting Balance Ability Fair Standing Balance Static Standing Balance Ability Good Dynamic Standing Balance Ability Fair Device Used hemiwalker right Tinetti Balance Assessment Sitting Balance Sitting Balance Steady, safe Arising from Chair Attempts to Arise Able, requires >1 attempt Standing Balance Immediate Standing Balance Steady with support Standing Balance Steady, wide stance Nudged Response Begins to fall Standing with Eyes Closed Unsteady Turning Step Pattern Turning 360 Degrees Discontinuous steps Stability Turning 360 Degrees Unsteady, grabs/staggers Sitting Down Sitting Down Uses arms or unsteady Gait and Step Initiation of Gait Hesitancy, mult. attempts Right Foot Step Length Does not pass stance ft. Right Foot Step Height Does not clear floor Left Foot Step Length Does not pass stance foot Left Foot Step Height Does not clear floor Step Description Step Symmetry Step length not equal Gait Description Path Description Mild/moderate deviation Trunk Description Marked sway or uses aide Walking Stance Heels apart Scoring and Interpretation Tinetti Composite Score (points) 6 Interpretation of Scores High risk for falls(< 19) Herrera Fall Scale Copyright Permission PT-OP-E Functional Tests Start: 05/28/19 08:11 Freq: Status: Active Protocol: Document 01/07/20 09:01 SP (Rec: 01/07/20 11:11 SP [id number]) Functional Tests 2 Minute Walk Test Distance 44ft Device Used SBQC Comments improved L hip IR and decreased knee hyperextension PT-OP-G Mobility & Gait Start: 05/28/19 08:11 Freq: Status: Active Protocol: Document 05/29/19 14:30 [facility] (Rec: 05/30/19 14:24 [facility] [id number]) OP Mobility Evaluation Bed Mobility Rolling min assist Supine to and from Sit min assist Transfers Sit to Stand uses right UE Bed to Chair Transfers uses right UE Floor Transfers unable Functional Movements Squats uses primarily right LE OP Gait Assessment Gait Gait Assistance Required: Standby Assistance Distance (Feet) 20 Assistive Devices Assistive Device Morro Walker Orthotic/Prosthetic Devices or Brace: Yes Gait Deviations General Gait Pattern Decreased Stride Length, Decreased Feet Clearance, Lateral Trunk Lean,Wide Based Gait Factors Limiting Gait Function Factors Limiting Gait Function Abnormal Tonal Influences, Decreased Strength PT-OP-H Neuro Start: 05/28/19 08:11 Freq: Status: Active Protocol: Document 05/29/19 14:30 SAK (Rec: 05/30/19 14:24 [facility] [id number]) Sensation Evaluation Gross Sensation Gross Sensation Left UE Impaired,Left LE Impaired Sensation Description Paresthesia,Numbness Coordination Evaluation Lower Extremity Tests Left Alternate Heel to Knee; Heel to Toe Test Moderate Impairment Heel on Boles Test Moderate Impairment Foot Tapping Test Moderate Impairment PT-OP-K Range of Motion Start: 05/28/19 08:11 Freq: Status: Active Protocol: Document 05/29/19 14:30 [facility] (Rec: 05/30/19 14:24 [facility] [id number]) Hip Goniometric Range of Motion Hip jake Hip ROM WFL Yes Knee Goniometric Range of Motion Knee jake Knee ROM WFL Yes Ankle and Foot Goniometric Range of Motion Ankle and Foot Left Active Ankle/Foot ROM WFL No Right Ankle/Foot ROM WFL Yes Ankle and Foot ROM Limitations Comments left ankle df -5, right 5 PT-OP-M Strength Start: 05/28/19 08:11 Freq: Status: Active Protocol: Document 05/29/19 14:30 [facility] (Rec: 05/30/19 14:24 [facility] [id number]) Hip Strength Hip Manual Muscle Testing Left Flexion (L2) 3- Fair- Extension (S1) 2 Poor Abduction 2+ Poor+ External Rotation 3- Fair- Internal Rotation 3+ Fair+ Right Flexion (L2) 4 Good Extension (S1) 4- Good- Abduction 4 Good External Rotation 3+ Fair+ Internal Rotation 4- Good- Knee Strength Knee Manual Muscle Testing Left Flexion (S2) 3 Fair Extension (L3) 3+ Fair+ Right Flexion (S2) 4+ Good+ Extension (L3) 4+ Good+ Ankle/Foot Strength Ankle and Foot Manual Muscle Testing Left Dorsiflexion (L4) 0 Zero Plantarflexion (S1) 0 Zero Right Dorsiflexion (L4) 4+ Good+ Plantarflexion (S1) 4+ Good+ PT-OP-Q Treatments Start: 05/28/19 08:11 Freq: Status: Active Protocol: Document 02/22/20 12:52 MA (Rec: 02/22/20 13:18 MA [email or web address]) Cardio Equipment Recumbent Elliptical (Biodex) Duration (Minutes) 10 Resistance 1 Other AFO donned, unable to hold LUE on arm bar w/support, LLE add cues Therapeutic Exercises Standing Exercises Stairs Side bilateral Equipment Used Rehab gym stairs Reps/Minutes 3x up/down Comments pt needing VC to bend L knee in order to clear step when ascending stairs Neuro Re-Education Treatment Balance Activities Modified SLS Details Modified SLS on LLE Equipment 4inch step Reps/Duration 2x60 seconds Comments RLE on step with verbal cues to place majority of weight through LLE in order to facilitate WB. CGA needed Self-Care/Home Management Treatment Education Patient Education Body Mechanics,Fall Risk,Home Exercise Program,Safety Caregiver Education Educated caregiver on how to wrap TB to assist in DF and IV of LLE. Practiced stair training with caregiver and educated caregiver on fall risks and safety measures when at home. PT-OP-R Modalities Start: 05/28/19 08:11 Freq: Status: Active Protocol: Document 01/23/20 09:51 SAK (Rec: 01/23/20 14:57 SAK [id number]) Electric Stimulation Electric Stimulation Functional Electric Stimulation Body Location left anterior tib Duration (Minutes) 10 Intensity 37 Contraction Type Normal Cycle 10/10 Ramp 2.0 Patient Position Sitting Comments Greek stim PT-OP-S Aquatic Treatment Start: 05/28/19 08:11 Freq: Status: Active Protocol: Document 07/13/19 10:15 LJ (Rec: 07/13/19 15:03 LJ [id number]) Aquatics Treatment Pool Entry/Exit Pool Entry/Exit Method Lift Assistance Minimal Assistance Water Walking Marching Water Level Chest Level Walking Equipment Ankle Weight- 2.5#, sm float on LUE, sm [place] float Level of Assistance Contact Guard Assistance, Minimal Assistance,Verbal Cues Sideways Water Level Chest Level Walking Equipment Ankle Weight- 2.5#, sm float on LUE Level of Assistance Contact Guard Assistance, Minimal Assistance,Verbal Cues Forwards Water Level Chest Level Walking Equipment Ankle Weight- 2.5#, sm float on LUE Level of Assistance Contact Guard Assistance, Minimal Assistance,Verbal Cues Lower Extremity Exercises pushing off wall with uni and bilateral LEs Details supine with feet against wall Body Position Supine Equipment neck and hip floats Reps/Duration 10 bilateral and 10 LLE Comments stabilizing at left knee to prevent lateral rotation left hip flex/ext Details standing on box with right foot Body Position Standing Water Level Waist Level Equipment Ankle Weight- 2.5# Reps/Duration 10 Comments manual assist for maintaining knee extension weight shifting staggard stance Details HH on wall Body Position Standing Water Level Waist Level Equipment Ankle Weight- 2.5#, sm float on LUE Comments assist with bracing left knee SLS LLE Details HH on wall Body Position Standing Water Level Waist Level Equipment Ankle Weight- 2.5#, sm float on LUE Reps/Duration [id number] sec Comments assist with bracing LLE, weight [id number] Details at wall Body Position Standing Water Level Waist Level Equipment Ankle Weight- 2.5#, sm float on LUE Comments assist with bracing left knee Upper Extremity Exercises pull downs Details standing at wall Water Level Chest Level Equipment BBs Reps/Duration 10 Comments assist with LUE HABD/HADD with long BB Body Position Standing Water Level Chest Level Reps/Duration 12x Comments assist with left hand on BB push pull Details back against wall Body Position Standing Water Level Waist Level Equipment lg BB Reps/Duration 10x Spinal Exercises Bad Ragaz Details trunk stabilization Body Position Supine Equipment Neck Float, hip float, arm float, LE floats Reps/Duration 2 min Manual Techniques Bad Ragaz hip ab/ad with manual resistance supine PT-OP-T Assessment and Plan Start: 05/28/19 08:11 Freq: Status: Active Protocol: Document 02/22/20 12:52 MA (Rec: 02/22/20 13:18 MA [email or web address]) Physical Therapy Assessment Goals Four Impairment requires assistance with bed mobility and transfers Short Term Goal (STG) Patient will be able to perform all bed mobility independently to improve her functional independence. 10/31/19: good goal progress STG Duration goal met Correction Goal (LTG) Patient will be able to perform a floor transfer with SB to min assist 10/31/19: max assist today 01/02/20: has not been willing to try since 10/31/19 LTG Duration 04/02/20 Three Impairment weakness left UE and LE s/p CVA Correction Goal (LTG) Improve functional strength in left LE, as evidenced by ability to move from sit > < stand without use of UE's. Request OT for left UE rehab. 10/31/19: OT starts tomorrow. Good progress with sit to stand, though mostly using right UE and LE 01/02/20: Improving ability to perform, able to increase weight-bearing through left LE with cues, but still some use of right UE LTG Duration 04/02/20 Two Impairment balance dysfunction with high risk for falls Psychiatric Therapist Goal (LTG) Improve balance as evidenced by improvement in Tinnetti balance and gait score to low fall risk range to improve safety in the home and community. 10/31/19: remains high risk for falls 01/02/20: some improvement but still in high risk category LTG Duration 04/02/20 One Impairment requires morro-walker for gait, limited to household gait Correction Goal (LTG) Patient able to ambulate with least restrictive device for functional community distances to improve her functional independence and quality of life. 10/30/19: no progress due to Covid 19. 11/02/19: able to ambulate with quad cane but with very slow speed, household distances, very short community distances . LTG Duration 04/02/20 Assessment Summary Assessment Pt continues to show left sided vision deficits during session making her unsafe for a powerchair at this time. With minimal VCs she is able to adjust her LLE for correct tracking when on Biodex. Pt needs verbal/tactile cues for safe placement of LLE when sitting but can consitently remember to place LLE when standing from chair. Caregiver needed max cues for stair training with M[employer]UAL [employer]DS AGENT assisting on R side of pt. Caregiver showed disinterest in training today with therapist needing to encourage her to participate throughout session . Physical Therapy Plan Next Visit Focus/Plan Next Note Type Treatment Note Next Visit Plan Pt would like to practice getting into and out of prone positioning next tx. Review stair training and TB placement with caregiver to ensure carryover from previous session. Set up obstacle course to practice coordination/balance and ensure pt uses sweeping views in order to evaluate if pt is safe for powerchair. Continue NMES for L DF when schedule allows.
--- NOTE | 2020-02-26 17:10 | PT.OTN ---
Current Diagnoses Hemiplegia, unspecified affecting unspecified side (02/26/20) Difficulty in walking, not elsewhere classified (02/26/20) Weakness (02/26/20) History of falling (02/26/20) Physical Therapy Treatment Note PT-OP-A Visit Information Start: 05/28/19 08:11 Freq: Status: Active Protocol: Document 02/26/20 09:00 SAK (Rec: 02/26/20 17:09 SAK [id number]) Out-Patient Physical Therapy Visit Information Visit Information Visit Type Treatment Note Visit Start Time 09:00 Visit Stop Time 09:56 Total Visit Minutes 56 Visit Number 48 Number of PASSENGER CAR INSPECTOR Visits 0 PT-OP-B Current Condition Start: 05/28/19 08:11 Freq: Status: Active Protocol: Document 10/31/19 11:15 SAK (Rec: 10/31/19 11:57 SAK [id number]) Current Condition History of Current Condition Onset Date 2014 Current Complaints weakness, requires assistance with all mobility and household tasks History of Current Condition Reports that she suffered a stroke in 2014 after surgery for brain aneurysm. CVA caused weakness on the left side of her body, gait and balance difficulty, seizures. Treatment Goals Patient/Caregiver Goals Improve strength, get faster with walking including on stairs, improve balance. PT-OP-C Subjective Start: 05/28/19 08:11 Freq: Status: Active Protocol: Document 02/26/20 09:00 SAK (Rec: 02/26/20 17:09 [facility] [id number]) OP-PT Subjective Patient Comments Patient Comments Patient comes to PT with jillcristin Paredes who is willing to stay for further PT training. Patient expressing interest in using electric scooter; states she has done ok with them in the grocery store. PT-OP-D Balance Start: 05/28/19 08:11 Freq: Status: Active Protocol: Document 05/29/19 14:30 SAK (Rec: 05/30/19 14:24 SAK [id number]) OP-PT Balance Assessment Sitting Balance Static Sitting Balance Ability Good Dynamic Sitting Balance Ability Fair Standing Balance Static Standing Balance Ability Good Dynamic Standing Balance Ability Fair Device Used hemiwalker right Tinetti Balance Assessment Sitting Balance Sitting Balance Steady, safe Arising from Chair Attempts to Arise Able, requires >1 attempt Standing Balance Immediate Standing Balance Steady with support Standing Balance Steady, wide stance Nudged Response Begins to fall Standing with Eyes Closed Unsteady Turning Step Pattern Turning 360 Degrees Discontinuous steps Stability Turning 360 Degrees Unsteady, grabs/staggers Sitting Down Sitting Down Uses arms or unsteady Gait and Step Initiation of Gait Hesitancy, mult. attempts Right Foot Step Length Does not pass stance ft. Right Foot Step Height Does not clear floor Left Foot Step Length Does not pass stance foot Left Foot Step Height Does not clear floor Step Description Step Symmetry Step length not equal Gait Description Path Description Mild/moderate deviation Trunk Description Marked sway or uses aide Walking Stance Heels apart Scoring and Interpretation Tinetti Composite Score (points) 6 Interpretation of Scores High risk for falls(< 19) Herrera Fall Scale Copyright Permission PT-OP-E Functional Tests Start: 05/28/19 08:11 Freq: Status: Active Protocol: Document 01/07/20 09:01 SP (Rec: 01/07/20 11:11 SP [id number]) Functional Tests 2 Minute Walk Test Distance 44ft Device Used SBQC Comments improved L hip IR and decreased knee hyperextension PT-OP-G Mobility & Gait Start: 05/28/19 08:11 Freq: Status: Active Protocol: Document 05/29/19 14:30 SAK (Rec: 05/30/19 14:24 [facility] [id number]) OP Mobility Evaluation Bed Mobility Rolling min assist Supine to and from Sit min assist Transfers Sit to Stand uses right UE Bed to Chair Transfers uses right UE Floor Transfers unable Functional Movements Squats uses primarily right LE OP Gait Assessment Gait Gait Assistance Required: Standby Assistance Distance (Feet) 20 Assistive Devices Assistive Device Morro Walker Orthotic/Prosthetic Devices or Brace: Yes Gait Deviations General Gait Pattern Decreased Stride Length, Decreased Feet Clearance, Lateral Trunk Lean,Wide Based Gait Factors Limiting Gait Function Factors Limiting Gait Function Abnormal Tonal Influences, Decreased Strength PT-OP-H Neuro Start: 05/28/19 08:11 Freq: Status: Active Protocol: Document 05/29/19 14:30 SAK (Rec: 05/30/19 14:24 SAK [id number]) Sensation Evaluation Gross Sensation Gross Sensation Left UE Impaired,Left LE Impaired Sensation Description Paresthesia,Numbness Coordination Evaluation Lower Extremity Tests Left Alternate Heel to Knee; Heel to Toe Test Moderate Impairment Heel on Boles Test Moderate Impairment Foot Tapping Test Moderate Impairment PT-OP-K Range of Motion Start: 05/28/19 08:11 Freq: Status: Active Protocol: Document 05/29/19 14:30 [facility] (Rec: 05/30/19 14:24 [facility] [id number]) Hip Goniometric Range of Motion Hip jake Hip ROM WFL Yes Knee Goniometric Range of Motion Knee jake Knee ROM WFL Yes Ankle and Foot Goniometric Range of Motion Ankle and Foot Left Active Ankle/Foot ROM WFL No Right Ankle/Foot ROM WFL Yes Ankle and Foot ROM Limitations Comments left ankle df -5, right 5 PT-OP-M Strength Start: 05/28/19 08:11 Freq: Status: Active Protocol: Document 05/29/19 14:30 [facility] (Rec: 05/30/19 14:24 [facility] [id number]) Hip Strength Hip Manual Muscle Testing Left Flexion (L2) 3- Fair- Extension (S1) 2 Poor Abduction 2+ Poor+ External Rotation 3- Fair- Internal Rotation 3+ Fair+ Right Flexion (L2) 4 Good Extension (S1) 4- Good- Abduction 4 Good External Rotation 3+ Fair+ Internal Rotation 4- Good- Knee Strength Knee Manual Muscle Testing Left Flexion (S2) 3 Fair Extension (L3) 3+ Fair+ Right Flexion (S2) 4+ Good+ Extension (L3) 4+ Good+ Ankle/Foot Strength Ankle and Foot Manual Muscle Testing Left Dorsiflexion (L4) 0 Zero Plantarflexion (S1) 0 Zero Right Dorsiflexion (L4) 4+ Good+ Plantarflexion (S1) 4+ Good+ PT-OP-Q Treatments Start: 05/28/19 08:11 Freq: Status: Active Protocol: Document 02/26/20 09:00 [facility] (Rec: 02/26/20 17:09 [facility] [id number]) Therapeutic Exercises Standing Exercises Stairs Side bilateral Equipment Used Rehab gym stairs Reps/Minutes 3x up/down Comments pt needing VC to bend L knee in order to clear step when ascending stairs Gait Training Gait Activity step up/down blue foam Device Used quad cane Level of Assistance CG to min assist Distance/Duration 4x Treatment Focus stability, balance, increased weight-bearing through left LE around cones Treatment Focus scanning, avoiding obstacles Comments missed cone x 1, knocked cone over x 1 1 Description level surface (Blue TB spiral wrap) Device Used SPC Level of Assistance close SBA Surface firm Distance/Duration 100 ft, 50 ft x2 Treatment Focus L hip IR and decrease L knee hyperextension Comments 1.L4 TB tied at left shoe, wrapped around clockwise LE and tied to gait belt assist with internal rotation foot/ hip facilitation cues for increased weight shift and stance time on left LE Unable to ambulate without device today. Neuro Re-Education Treatment Balance Activities Modified SLS Details Modified SLS on LLE Equipment right foot on blue foam Reps/Duration 2x60 seconds Comments RLE on foam with verbal cues to place majority of weight through LLE in order to facilitate WB. CGA to min assist/facil needed Self-Care/Home Management Treatment Education Caregiver Education review of wrapping left LE with new caregiver Lena. Stair training with demo first by PT, then caregiver assisted x 2. PT-OP-R Modalities Start: 05/28/19 08:11 Freq: Status: Active Protocol: Document 02/26/20 17:10 SAK (Rec: 02/26/20 17:10 SAK [id number]) Electric Stimulation Electric Stimulation Functional Electric Stimulation Body Location left anterior tib Duration (Minutes) 10 Intensity 37 Contraction Type Normal Cycle 10/10 Ramp 2.0 Patient Position Sitting Comments Liberian stim PT-OP-S Aquatic Treatment Start: 05/28/19 08:11 Freq: Status: Active Protocol: Document 07/13/19 10:15 LJ (Rec: 07/13/19 15:03 LJ [id number]) Aquatics Treatment Pool Entry/Exit Pool Entry/Exit Method Lift Assistance Minimal Assistance Water Walking Marching Water Level Chest Level Walking Equipment Ankle Weight- 2.5#, sm float on LUE, sm [place] float Level of Assistance Contact Guard Assistance, Minimal Assistance,Verbal Cues Sideways Water Level Chest Level Walking Equipment Ankle Weight- 2.5#, sm float on LUE Level of Assistance Contact Guard Assistance, Minimal Assistance,Verbal Cues Forwards Water Level Chest Level Walking Equipment Ankle Weight- 2.5#, sm float on LUE Level of Assistance Contact Guard Assistance, Minimal Assistance,Verbal Cues Lower Extremity Exercises pushing off wall with uni and bilateral LEs Details supine with feet against wall Body Position Supine Equipment neck and hip floats Reps/Duration 10 bilateral and 10 LLE Comments stabilizing at left knee to prevent lateral rotation left hip flex/ext Details standing on box with right foot Body Position Standing Water Level Waist Level Equipment Ankle Weight- 2.5# Reps/Duration 10 Comments manual assist for maintaining knee extension weight shifting staggard stance Details HH on wall Body Position Standing Water Level Waist Level Equipment Ankle Weight- 2.5#, sm float on LUE Comments assist with bracing left knee SLS LLE Details HH on wall Body Position Standing Water Level Waist Level Equipment Ankle Weight- 2.5#, sm float on LUE Reps/Duration [id number] sec Comments assist with bracing LLE, weight [id number] Details at wall Body Position Standing Water Level Waist Level Equipment Ankle Weight- 2.5#, sm float on LUE Comments assist with bracing left knee Upper Extremity Exercises pull downs Details standing at wall Water Level Chest Level Equipment BBs Reps/Duration 10 Comments assist with LUE HABD/HADD with long BB Body Position Standing Water Level Chest Level Reps/Duration 12x Comments assist with left hand on BB push pull Details back against wall Body Position Standing Water Level Waist Level Equipment lg BB Reps/Duration 10x Spinal Exercises Bad Ragaz Details trunk stabilization Body Position Supine Equipment Neck Float, hip float, arm float, LE floats Reps/Duration 2 min Manual Techniques Bad Ragaz hip ab/ad with manual resistance supine PT-OP-T Assessment and Plan Start: 05/28/19 08:11 Freq: Status: Active Protocol: Document 02/26/20 09:00 KRYSTAL (Rec: 02/26/20 17:09 [facility] [id number]) Physical Therapy Assessment Goals Four Impairment requires assistance with bed mobility and transfers Short Term Goal (STG) Patient will be able to perform all bed mobility independently to improve her functional independence. 10/31/19: good goal progress STG Duration goal met Regulatory Services Consultant Goal (LTG) Patient will be able to perform a floor transfer with SB to min assist 10/31/19: max assist today 01/02/20: has not been willing to try since 10/31/19 LTG Duration 04/02/20 Three Impairment weakness left UE and LE s/p CVA Senior Living Goal (LTG) Improve functional strength in left LE, as evidenced by ability to move from sit > < stand without use of UE's. Request OT for left UE rehab. 10/31/19: OT starts tomorrow. Good progress with sit to stand, though mostly using right UE and LE 01/02/20: Improving ability to perform, able to increase weight-bearing through left LE with cues, but still some use of right UE LTG Duration 04/02/20 Two Impairment balance dysfunction with high risk for falls Regulatory Services Consultant Goal (LTG) Improve balance as evidenced by improvement in Tinnetti balance and gait score to low fall risk range to improve safety in the home and community. 10/31/19: remains high risk for falls 01/02/20: some improvement but still in high risk category LTG Duration 04/02/20 One Impairment requires morro-walker for gait, limited to household gait Regulatory Services Consultant Goal (LTG) Patient able to ambulate with least restrictive device for functional community distances to improve her functional independence and quality of life. 10/30/19: no progress due to Covid 19. 11/02/19: able to ambulate with quad cane but with very slow speed, household distances, very short community distances . LTG Duration 04/02/20 Assessment Summary Assessment New caregiver verbalized good understanding of LE wrapping, able to assist well on stairs after demo by PT. Was attentive this date and patient verbalized things going well. Physical Therapy Plan Frequency and Duration Frequency of Treatment 2x/Week Duration of Treatment 12 wks Plan of Care Start Date 01/02/20 Plan of Care End Date 04/02/20 Therapeutic Interventions Therapeutic Interventions Aquatic Therapy,Balance Training,Gait Training,Home Exercise Program,Neuromuscular Re-education,Orthotic/ Prosthetic Management,Patient/ Caregiver Education,Self-Care/ Home Management,Taping, Therapeutic Activities, Therapeutic Exercises Modalities Cold Pack/Ice Massage,Hot Packs Next Visit Focus/Plan Next Note Type Treatment Note Next Visit Plan Patient education on getting into and out of prone position . Continue obstacle course practice with increased difficulty, facilitate increased weight-bearing through left LE.
--- NOTE | 2020-03-03 11:25 | PT.OTN ---
Current Diagnoses Hemiplegia, unspecified affecting unspecified side (03/03/20) Difficulty in walking, not elsewhere classified (03/03/20) Weakness (03/03/20) History of falling (03/03/20) Physical Therapy Treatment Note PT-OP-A Visit Information Start: 05/28/19 08:11 Freq: Status: Active Protocol: Document 03/03/20 10:35 SP (Rec: 03/03/20 12:15 SP [id number]) Out-Patient Physical Therapy Visit Information Visit Information Visit Type Treatment Note Visit Start Time 10:35 Visit Stop Time 11:25 Total Visit Minutes 50 Visit Number 49 Number of SVP MONETIZATION Visits 1 PT-OP-B Current Condition Start: 05/28/19 08:11 Freq: Status: Active Protocol: Document 10/31/19 11:15 SAK (Rec: 10/31/19 11:57 SAK [id number]) Current Condition History of Current Condition Onset Date 2014 Current Complaints weakness, requires assistance with all mobility and household tasks History of Current Condition Reports that she suffered a stroke in 2014 after surgery for brain aneurysm. CVA caused weakness on the left side of her body, gait and balance difficulty, seizures. Treatment Goals Patient/Caregiver Goals Improve strength, get faster with walking including on stairs, improve balance. PT-OP-C Subjective Start: 05/28/19 08:11 Freq: Status: Active Protocol: Document 03/03/20 10:35 SP (Rec: 03/03/20 12:15 SP [id number]) OP-PT Subjective Patient Comments Patient Comments Pt reported is compliant with recumbent bike at home 1 x day with caregiver and stair mgt at family since last tx and did well both patient and caregiver felt more confident together since last tx. Pt asked again if can walk on treadmill if safe for her or elliptical. Pt reported fell off side of bed when getting out since last tx and discussed with physician possibility of getting a hospital bed for safety, has a higher twin bed with mattress and boxspring on the floor with no rail but uses night stand at right to hang onto but foot doesn't touch floor when sits up and many times is close to the edge before moves and tries to scoot as much as can further onto bed but challenging without rail , L arms gets in the way lateral scoot to L and LLE difficult to move to L and bridge with socks on, non skids socks rotate on feet and don't always help. PT-OP-D Balance Start: 05/28/19 08:11 Freq: Status: Active Protocol: Document 05/29/19 14:30 SAK (Rec: 05/30/19 14:24 [facility] [id number]) OP-PT Balance Assessment Sitting Balance Static Sitting Balance Ability Good Dynamic Sitting Balance Ability Fair Standing Balance Static Standing Balance Ability Good Dynamic Standing Balance Ability Fair Device Used hemiwalker right Tinetti Balance Assessment Sitting Balance Sitting Balance Steady, safe Arising from Chair Attempts to Arise Able, requires >1 attempt Standing Balance Immediate Standing Balance Steady with support Standing Balance Steady, wide stance Nudged Response Begins to fall Standing with Eyes Closed Unsteady Turning Step Pattern Turning 360 Degrees Discontinuous steps Stability Turning 360 Degrees Unsteady, grabs/staggers Sitting Down Sitting Down Uses arms or unsteady Gait and Step Initiation of Gait Hesitancy, mult. attempts Right Foot Step Length Does not pass stance ft. Right Foot Step Height Does not clear floor Left Foot Step Length Does not pass stance foot Left Foot Step Height Does not clear floor Step Description Step Symmetry Step length not equal Gait Description Path Description Mild/moderate deviation Trunk Description Marked sway or uses aide Walking Stance Heels apart Scoring and Interpretation Tinetti Composite Score (points) 6 Interpretation of Scores High risk for falls(< 19) Herrera Fall Scale Copyright Permission PT-OP-E Functional Tests Start: 05/28/19 08:11 Freq: Status: Active Protocol: Document 01/07/20 09:01 SP (Rec: 01/07/20 11:11 SP [id number]) Functional Tests 2 Minute Walk Test Distance 44ft Device Used SBQC Comments improved L hip IR and decreased knee hyperextension PT-OP-G Mobility & Gait Start: 05/28/19 08:11 Freq: Status: Active Protocol: Document 05/29/19 14:30 [facility] (Rec: 05/30/19 14:24 [facility] [id number]) OP Mobility Evaluation Bed Mobility Rolling min assist Supine to and from Sit min assist Transfers Sit to Stand uses right UE Bed to Chair Transfers uses right UE Floor Transfers unable Functional Movements Squats uses primarily right LE OP Gait Assessment Gait Gait Assistance Required: Standby Assistance Distance (Feet) 20 Assistive Devices Assistive Device Morro Walker Orthotic/Prosthetic Devices or Brace: Yes Gait Deviations General Gait Pattern Decreased Stride Length, Decreased Feet Clearance, Lateral Trunk Lean,Wide Based Gait Factors Limiting Gait Function Factors Limiting Gait Function Abnormal Tonal Influences, Decreased Strength PT-OP-H Neuro Start: 05/28/19 08:11 Freq: Status: Active Protocol: Document 05/29/19 14:30 [facility] (Rec: 05/30/19 14:24 [facility] [id number]) Sensation Evaluation Gross Sensation Gross Sensation Left UE Impaired,Left LE Impaired Sensation Description Paresthesia,Numbness Coordination Evaluation Lower Extremity Tests Left Alternate Heel to Knee; Heel to Toe Test Moderate Impairment Heel on Boles Test Moderate Impairment Foot Tapping Test Moderate Impairment PT-OP-K Range of Motion Start: 05/28/19 08:11 Freq: Status: Active Protocol: Document 05/29/19 14:30 [facility] (Rec: 05/30/19 14:24 [facility] [id number]) Hip Goniometric Range of Motion Hip jake Hip ROM WFL Yes Knee Goniometric Range of Motion Knee jake Knee ROM WFL Yes Ankle and Foot Goniometric Range of Motion Ankle and Foot Left Active Ankle/Foot ROM WFL No Right Ankle/Foot ROM WFL Yes Ankle and Foot ROM Limitations Comments left ankle df -5, right 5 PT-OP-M Strength Start: 05/28/19 08:11 Freq: Status: Active Protocol: Document 05/29/19 14:30 [facility] (Rec: 05/30/19 14:24 [facility] [id number]) Hip Strength Hip Manual Muscle Testing Left Flexion (L2) 3- Fair- Extension (S1) 2 Poor Abduction 2+ Poor+ External Rotation 3- Fair- Internal Rotation 3+ Fair+ Right Flexion (L2) 4 Good Extension (S1) 4- Good- Abduction 4 Good External Rotation 3+ Fair+ Internal Rotation 4- Good- Knee Strength Knee Manual Muscle Testing Left Flexion (S2) 3 Fair Extension (L3) 3+ Fair+ Right Flexion (S2) 4+ Good+ Extension (L3) 4+ Good+ Ankle/Foot Strength Ankle and Foot Manual Muscle Testing Left Dorsiflexion (L4) 0 Zero Plantarflexion (S1) 0 Zero Right Dorsiflexion (L4) 4+ Good+ Plantarflexion (S1) 4+ Good+ PT-OP-Q Treatments Start: 05/28/19 08:11 Freq: Status: Active Protocol: Document 03/03/20 10:35 SP (Rec: 03/03/20 12:15 SP [id number]) Therapeutic Activity Therapeutic Activity sitting<> supine Name on/ off R side bed (assimulate home) Reps/Minutes x1 Comments close SBA, able to complete self sitting>supine using RUE on table side for support, challenged lateral scoot to L without something to hang onto . Supine>sitting unable to complete without something to grab onto, completed with provided QC with assist fully stabilized as rail at side of bed as though bolted on, patient performs to close to edge even after cuing for scoot more to L due to tiring during lat scoot and doesn't get fully center let alone to L side more. Completed to sit but BLE unable to touch floor due to assimulated height 24 bed as has at home. Provided CGA and cuing for not sliding off table with then R toe only able contact floor for stabilizing. Unsafe and caregiver agrees but she is usually out of bed before arrives and patient reported mom not usually with her, stated I can do this all herself but has fallen off and need call someone usually EMS to help get off floor. I need to practice getting on/ off floor to get better at it can do myself. I think I could use a hospital bed with rails and surface closer to the floor so can touch. Gait Training Gait Activity 1 Description level surface (Blue TB spiral wrap) Device Used QC Level of Assistance close SBA Surface level floor, firm Distance/Duration 200ft x4 Treatment Focus L hip IR and decrease L knee hyperextension Comments 1.L4 TB tied at left shoe, wrapped around clockwise LE and tied to gait belt assist with internal rotation foot/ hip facilitation cues for forward trunk positioning to allow LLE proper alignment. Uses QC today. stair mgt Description forward Device Used R HR Level of Assistance CG assist by new caregiver Surface ascend 6- 4 short depth step, descend 4- 6 x2 laps Treatment Focus knee alignment LE motor planning step to pattern Comments cued for slow LLE knee flexion placement, w/ TB wrapping around L leg clockwise to facilitate medial rotation and prevent hyperextension. PT-OP-R Modalities Start: 05/28/19 08:11 Freq: Status: Active Protocol: Document 02/26/20 17:10 SAK (Rec: 02/26/20 17:10 SAK [id number]) Electric Stimulation Electric Stimulation Functional Electric Stimulation Body Location left anterior tib Duration (Minutes) 10 Intensity 37 Contraction Type Normal Cycle 10/10 Ramp 2.0 Patient Position Sitting Comments Bruneian stim PT-OP-S Aquatic Treatment Start: 05/28/19 08:11 Freq: Status: Active Protocol: Document 07/13/19 10:15 NILAY (Rec: 07/13/19 15:03 LJ [id number]) Aquatics Treatment Pool Entry/Exit Pool Entry/Exit Method Lift Assistance Minimal Assistance Water Walking Marching Water Level Chest Level Walking Equipment Ankle Weight- 2.5#, sm float on LUE, sm [place] float Level of Assistance Contact Guard Assistance, Minimal Assistance,Verbal Cues Sideways Water Level Chest Level Walking Equipment Ankle Weight- 2.5#, sm float on LUE Level of Assistance Contact Guard Assistance, Minimal Assistance,Verbal Cues Forwards Water Level Chest Level Walking Equipment Ankle Weight- 2.5#, sm float on LUE Level of Assistance Contact Guard Assistance, Minimal Assistance,Verbal Cues Lower Extremity Exercises pushing off wall with uni and bilateral LEs Details supine with feet against wall Body Position Supine Equipment neck and hip floats Reps/Duration 10 bilateral and 10 LLE Comments stabilizing at left knee to prevent lateral rotation left hip flex/ext Details standing on box with right foot Body Position Standing Water Level Waist Level Equipment Ankle Weight- 2.5# Reps/Duration 10 Comments manual assist for maintaining knee extension weight shifting staggard stance Details HH on wall Body Position Standing Water Level Waist Level Equipment Ankle Weight- 2.5#, sm float on LUE Comments assist with bracing left knee SLS LLE Details HH on wall Body Position Standing Water Level Waist Level Equipment Ankle Weight- 2.5#, sm float on LUE Reps/Duration 1i17-32 sec Comments assist with bracing LLE, weight [id number] Details at wall Body Position Standing Water Level Waist Level Equipment Ankle Weight- 2.5#, sm float on LUE Comments assist with bracing left knee Upper Extremity Exercises pull downs Details standing at wall Water Level Chest Level Equipment BBs Reps/Duration 10 Comments assist with LUE HABD/HADD with long BB Body Position Standing Water Level Chest Level Reps/Duration 12x Comments assist with left hand on BB push pull Details back against wall Body Position Standing Water Level Waist Level Equipment lg BB Reps/Duration 10x Spinal Exercises Christopher Villaseñor Details trunk stabilization Body Position Supine Equipment Neck Float, hip float, arm float, LE floats Reps/Duration 2 min Manual Techniques Christopher Villaseñor hip ab/ad with manual resistance supine PT-OP-T Assessment and Plan Start: 05/28/19 08:11 Freq: Status: Active Protocol: Document 03/03/20 10:35 SP (Rec: 03/03/20 12:15 SP [id number]) Physical Therapy Assessment Goals Four Impairment requires assistance with bed mobility and transfers Short Term Goal (STG) Patient will be able to perform all bed mobility independently to improve her functional independence. 10/31/19: good goal progress STG Duration goal met [employer] Goal (LTG) Patient will be able to perform a floor transfer with SB to min assist 10/31/19: max assist today 01/02/20: has not been willing to try since 10/31/19 LTG Duration 04/02/20 Three Impairment weakness left UE and LE s/p CVA Fpc Goal (LTG) Improve functional strength in left LE, as evidenced by ability to move from sit > < stand without use of UE's. Request OT for left UE rehab. 10/31/19: OT starts tomorrow. Good progress with sit to stand, though mostly using right UE and LE 01/02/20: Improving ability to perform, able to increase weight-bearing through left LE with cues, but still some use of right UE LTG Duration 04/02/20 Two Impairment balance dysfunction with high risk for falls [employer] Goal (LTG) Improve balance as evidenced by improvement in Tinnetti balance and gait score to low fall risk range to improve safety in the home and community. 10/31/19: remains high risk for falls 01/02/20: some improvement but still in high risk category LTG Duration 04/02/20 One Impairment requires morro-walker for gait, limited to household gait [employer] Goal (LTG) Patient able to ambulate with least restrictive device for functional community distances to improve her functional independence and quality of life. 10/30/19: no progress due to Covid 19. 11/02/19: able to ambulate with quad cane but with very slow speed, household distances, very short community distances . LTG Duration 04/02/20 Assessment Summary Assessment Tx focused on patient requested stair mgt, gait with TB and supine< >sitting for safety assessment and feedback she is requesting if also agreed acquiring a hospital bed for increase self safety of height ( 19 ) and rail for self guidence and support that doesn't not currently have. See detail comments in objective Ther Act. I would agree with Brittany that recommend use of hospital bed for ability to decrease height of bed to allow BLe to be support on floor when sits up and access of hand rail for trunk righting safety, side table doesn't have good positioning and proper recycling center operator as a hand rail can provide. SVP MONETIZATION discussed with supervising PT, Renetta to discuss next tx and possible give recommendation to physician for possible script order if also feels is a good safety DME for Brittany to have at home to decreased risk for falls. Pt able to walk further distance and stair mgt during tx with TB wrapping LLE. Pt did demonstrate little L hip ER toward end of 40 min activity on feet total. The band today fit is helping alot to bend my knee and keeping my leg turned in more so dont have to think about it as much. Caregiver agreed. Caregiver donned on Brittany when started . If have the availability to increase txtime, would benefit from ther ex, gait, stairs, bed mobilty along with strengthening to improve endurance walking w/ LRAD. Physical Therapy Plan Frequency and Duration Frequency of Treatment 2x/Week Duration of Treatment 12 wks Plan of Care Start Date 01/02/20 Plan of Care End Date 04/02/20 Therapeutic Interventions Therapeutic Interventions Aquatic Therapy,Balance Training,Gait Training,Home Exercise Program,Neuromuscular Re-education,Orthotic/ Prosthetic Management,Patient/ Caregiver Education,Self-Care/ Home Management,Taping, Therapeutic Activities, Therapeutic Exercises Modalities Cold Pack/Ice Massage,Hot Packs Next Visit Focus/Plan Next Note Type Treatment Note Next Visit Plan Rediscuss hospital bed, see assessment/ objective details. Continue obstacle course practice with increased difficulty, facilitate increased weight-bearing through left LE. Gait pacing w /metronome to possibly progress for ability to use treadmill.
--- NOTE | 2020-03-11 14:14 | PT.OTN ---
Current Diagnoses Hemiplegia, unspecified affecting unspecified side (03/11/20) Difficulty in walking, not elsewhere classified (03/11/20) Weakness (03/11/20) History of falling (03/11/20) Physical Therapy Treatment Note PT-OP-A Visit Information Start: 05/28/19 08:11 Freq: Status: Active Protocol: Document 03/11/20 11:18 SAK (Rec: 03/11/20 11:19 SAK [id number]) Out-Patient Physical Therapy Visit Information Visit Information Visit Type Treatment Note Visit Start Time 10:35 Visit Stop Time 11:20 Total Visit Minutes 55 Visit Number 50 Number of RECORD RETRIEVAL SPECIALIST Visits 0 PT-OP-B Current Condition Start: 05/28/19 08:11 Freq: Status: Active Protocol: Document 10/31/19 11:15 SAK (Rec: 10/31/19 11:57 SAK [id number]) Current Condition History of Current Condition Onset Date 2014 Current Complaints weakness, requires assistance with all mobility and household tasks History of Current Condition Reports that she suffered a stroke in 2014 after surgery for brain aneurysm. CVA caused weakness on the left side of her body, gait and balance difficulty, seizures. Treatment Goals Patient/Caregiver Goals Improve strength, get faster with walking including on stairs, improve balance. PT-OP-C Subjective Start: 05/28/19 08:11 Freq: Status: Active Protocol: Document 03/11/20 11:18 SAK (Rec: 03/11/20 14:09 [facility] [id number]) OP-PT Subjective Patient Comments Patient Comments No new c/o, still interested in treadmill. PT-OP-D Balance Start: 05/28/19 08:11 Freq: Status: Active Protocol: Document 05/29/19 14:30 SAK (Rec: 05/30/19 14:24 SAK [id number]) OP-PT Balance Assessment Sitting Balance Static Sitting Balance Ability Good Dynamic Sitting Balance Ability Fair Standing Balance Static Standing Balance Ability Good Dynamic Standing Balance Ability Fair Device Used hemiwalker right Tinetti Balance Assessment Sitting Balance Sitting Balance Steady, safe Arising from Chair Attempts to Arise Able, requires >1 attempt Standing Balance Immediate Standing Balance Steady with support Standing Balance Steady, wide stance Nudged Response Begins to fall Standing with Eyes Closed Unsteady Turning Step Pattern Turning 360 Degrees Discontinuous steps Stability Turning 360 Degrees Unsteady, grabs/staggers Sitting Down Sitting Down Uses arms or unsteady Gait and Step Initiation of Gait Hesitancy, mult. attempts Right Foot Step Length Does not pass stance ft. Right Foot Step Height Does not clear floor Left Foot Step Length Does not pass stance foot Left Foot Step Height Does not clear floor Step Description Step Symmetry Step length not equal Gait Description Path Description Mild/moderate deviation Trunk Description Marked sway or uses aide Walking Stance Heels apart Scoring and Interpretation Tinetti Composite Score (points) 6 Interpretation of Scores High risk for falls(< 19) Herrera Fall Scale Copyright Permission PT-OP-E Functional Tests Start: 05/28/19 08:11 Freq: Status: Active Protocol: Document 01/07/20 09:01 SP (Rec: 01/07/20 11:11 SP [id number]) Functional Tests 2 Minute Walk Test Distance 44ft Device Used SBQC Comments improved L hip IR and decreased knee hyperextension PT-OP-G Mobility & Gait Start: 05/28/19 08:11 Freq: Status: Active Protocol: Document 05/29/19 14:30 [facility] (Rec: 05/30/19 14:24 [facility] [id number]) OP Mobility Evaluation Bed Mobility Rolling min assist Supine to and from Sit min assist Transfers Sit to Stand uses right UE Bed to Chair Transfers uses right UE Floor Transfers unable Functional Movements Squats uses primarily right LE OP Gait Assessment Gait Gait Assistance Required: Standby Assistance Distance (Feet) 20 Assistive Devices Assistive Device Morro Walker Orthotic/Prosthetic Devices or Brace: Yes Gait Deviations General Gait Pattern Decreased Stride Length, Decreased Feet Clearance, Lateral Trunk Lean,Wide Based Gait Factors Limiting Gait Function Factors Limiting Gait Function Abnormal Tonal Influences, Decreased Strength PT-OP-H Neuro Start: 05/28/19 08:11 Freq: Status: Active Protocol: Document 05/29/19 14:30 [facility] (Rec: 05/30/19 14:24 [facility] [id number]) Sensation Evaluation Gross Sensation Gross Sensation Left UE Impaired,Left LE Impaired Sensation Description Paresthesia,Numbness Coordination Evaluation Lower Extremity Tests Left Alternate Heel to Knee; Heel to Toe Test Moderate Impairment Heel on Boles Test Moderate Impairment Foot Tapping Test Moderate Impairment PT-OP-K Range of Motion Start: 05/28/19 08:11 Freq: Status: Active Protocol: Document 05/29/19 14:30 [facility] (Rec: 05/30/19 14:24 [facility] [id number]) Hip Goniometric Range of Motion Hip jake Hip ROM WFL Yes Knee Goniometric Range of Motion Knee jake Knee ROM WFL Yes Ankle and Foot Goniometric Range of Motion Ankle and Foot Left Active Ankle/Foot ROM WFL No Right Ankle/Foot ROM WFL Yes Ankle and Foot ROM Limitations Comments left ankle df -5, right 5 PT-OP-M Strength Start: 05/28/19 08:11 Freq: Status: Active Protocol: Document 05/29/19 14:30 [facility] (Rec: 05/30/19 14:24 [facility] [id number]) Hip Strength Hip Manual Muscle Testing Left Flexion (L2) 3- Fair- Extension (S1) 2 Poor Abduction 2+ Poor+ External Rotation 3- Fair- Internal Rotation 3+ Fair+ Right Flexion (L2) 4 Good Extension (S1) 4- Good- Abduction 4 Good External Rotation 3+ Fair+ Internal Rotation 4- Good- Knee Strength Knee Manual Muscle Testing Left Flexion (S2) 3 Fair Extension (L3) 3+ Fair+ Right Flexion (S2) 4+ Good+ Extension (L3) 4+ Good+ Ankle/Foot Strength Ankle and Foot Manual Muscle Testing Left Dorsiflexion (L4) 0 Zero Plantarflexion (S1) 0 Zero Right Dorsiflexion (L4) 4+ Good+ Plantarflexion (S1) 4+ Good+ PT-OP-Q Treatments Start: 05/28/19 08:11 Freq: Status: Active Protocol: Document 03/11/20 11:18 [facility] (Rec: 03/11/20 11:19 [facility] [id number]) Therapeutic Exercises Standing Exercises minisquats Reps/Minutes 10x Comments no AFO Gait Training Gait Activity pre-gait weight shifts Description AP, side to side Device Used parallel bars Level of Assistance CG to min assist, verbal and manual cues Surface firm Treatment Focus increased weight bearing left LE Comments with mirror to focus on inc L WB 1 Description level surface (Blue TB spiral wrap) Device Used QC Level of Assistance close SBA Surface level floor, firm Distance/Duration 200ft x4 Treatment Focus L hip IR and decrease L knee hyperextension, pacing Comments 1.L4 TB tied at left shoe, wrapped around clockwise LE and tied to gait belt assist with internal rotation foot/ hip facilitation cues for forward trunk positioning to allow LLE proper alignment. 2.protraction of left hip with gait Uses QC today. Use of metronome @50bpm for training gait enrike Neuro Re-Education Treatment Balance Activities tiltboard Details A/P, side bal and weight shift Comments parallel bars unilateral UE support PT-OP-R Modalities Start: 05/28/19 08:11 Freq: Status: Active Protocol: Document 03/11/20 11:18 SAK (Rec: 03/11/20 14:09 SAK [id number]) Electric Stimulation Electric Stimulation Functional Electric Stimulation Body Location left anterior tib Duration (Minutes) 10 Intensity 52 Contraction Type Normal Cycle 10 Ramp 2.0 Patient Position Sitting Comments Argentine stim PT-OP-S Aquatic Treatment Start: 05/28/19 08:11 Freq: Status: Active Protocol: Document 07/13/19 10:15 LJ (Rec: 07/13/19 15:03 LJ [id number]) Aquatics Treatment Pool Entry/Exit Pool Entry/Exit Method Lift Assistance Minimal Assistance Water Walking Marching Water Level Chest Level Walking Equipment Ankle Weight- 2.5#, sm float on LUE, sm nez perce float Level of Assistance Contact Guard Assistance, Minimal Assistance,Verbal Cues Sideways Water Level Chest Level Walking Equipment Ankle Weight- 2.5#, sm float on LUE Level of Assistance Contact Guard Assistance, Minimal Assistance,Verbal Cues Forwards Water Level Chest Level Walking Equipment Ankle Weight- 2.5#, sm float on LUE Level of Assistance Contact Guard Assistance, Minimal Assistance,Verbal Cues Lower Extremity Exercises pushing off wall with uni and bilateral LEs Details supine with feet against wall Body Position Supine Equipment neck and hip floats Reps/Duration 10 bilateral and 10 LLE Comments stabilizing at left knee to prevent lateral rotation left hip flex/ext Details standing on box with right foot Body Position Standing Water Level Waist Level Equipment Ankle Weight- 2.5# Reps/Duration 10 Comments manual assist for maintaining knee extension weight shifting staggard stance Details HH on wall Body Position Standing Water Level Waist Level Equipment Ankle Weight- 2.5#, sm float on LUE Comments assist with bracing left knee SLS LLE Details HH on wall Body Position Standing Water Level Waist Level Equipment Ankle Weight- 2.5#, sm float on LUE Reps/Duration 2p62-00 sec Comments assist with bracing LLE, weight [id number] Details at wall Body Position Standing Water Level Waist Level Equipment Ankle Weight- 2.5#, sm float on LUE Comments assist with bracing left knee Upper Extremity Exercises pull downs Details standing at wall Water Level Chest Level Equipment BBs Reps/Duration 10 Comments assist with LUE HABD/HADD with long BB Body Position Standing Water Level Chest Level Reps/Duration 12x Comments assist with left hand on BB push pull Details back against wall Body Position Standing Water Level Waist Level Equipment lg BB Reps/Duration 10x Spinal Exercises Bad Ragaz Details trunk stabilization Body Position Supine Equipment Neck Float, hip float, arm float, LE floats Reps/Duration 2 min Manual Techniques Bad Ragaz hip ab/ad with manual resistance supine PT-OP-T Assessment and Plan Start: 05/28/19 08:11 Freq: Status: Active Protocol: Document 03/11/20 11:15 KRYSTAL (Rec: 03/11/20 14:14 KRYSTAL [id number]) Physical Therapy Assessment Goals Four Impairment requires assistance with bed mobility and transfers Short Term Goal (STG) Patient will be able to perform all bed mobility independently to improve her functional independence. 10/31/19: good goal progress STG Duration goal met Senior Qa Tester Goal (LTG) Patient will be able to perform a floor transfer with SB to min assist 10/31/19: max assist today 01/02/20: has not been willing to try since 10/31/19 LTG Duration 04/02/20 Three Impairment weakness left UE and LE s/p CVA Senior Qa Tester Goal (LTG) Improve functional strength in left LE, as evidenced by ability to move from sit > < stand without use of UE's. Request OT for left UE rehab. 10/31/19: OT starts tomorrow. Good progress with sit to stand, though mostly using right UE and LE 01/02/20: Improving ability to perform, able to increase weight-bearing through left LE with cues, but still some use of right UE LTG Duration 04/02/20 Two Impairment balance dysfunction with high risk for falls Senior Qa Tester Goal (LTG) Improve balance as evidenced by improvement in Tinnetti balance and gait score to low fall risk range to improve safety in the home and community. 10/31/19: remains high risk for falls 01/02/20: some improvement but still in high risk category LTG Duration 04/02/20 One Impairment requires morro-walker for gait, limited to household gait Senior Qa Tester Goal (LTG) Patient able to ambulate with least restrictive device for functional community distances to improve her functional independence and quality of life. 10/30/19: no progress due to Covid 19. 11/02/19: able to ambulate with quad cane but with very slow speed, household distances, very short community distances . LTG Duration 04/02/20 Assessment Summary Assessment Emphasis on gait pacing, increased weight shift left, correction of retraction left hip with gait. Metronome trial at 50 bpm (comperable to slowest pace on treadmill); patient unable to keep up with pace at this time. Will practice at home to work up to being able to use treadmill Physical Therapy Plan Frequency and Duration Frequency of Treatment 2x/Week Duration of Treatment 12 wks Plan of Care Start Date 01/02/20 Plan of Care End Date 04/02/20 Therapeutic Interventions Therapeutic Interventions Aquatic Therapy,Balance Training,Gait Training,Home Exercise Program,Neuromuscular Re-education,Orthotic/ Prosthetic Management,Patient/ Caregiver Education,Self-Care/ Home Management,Taping, Therapeutic Activities, Therapeutic Exercises Modalities Cold Pack/Ice Massage,Hot Packs Next Visit Focus/Plan Next Note Type Treatment Note Next Visit Plan Start with gait with metronome to determine if ready to do treadmill trial. Continue obstacle course work, facilitate increased weight- bearing through left LE
--- NOTE | 2020-03-19 12:52 | PT.OTN ---
Current Diagnoses Hemiplegia, unspecified affecting unspecified side (03/19/20) Difficulty in walking, not elsewhere classified (03/19/20) Weakness (03/19/20) History of falling (03/19/20) Physical Therapy Treatment Note PT-OP-A Visit Information Start: 05/28/19 08:11 Freq: Status: Active Protocol: Document 03/19/20 10:31 SAK (Rec: 03/19/20 11:17 SAK [id number]) Out-Patient Physical Therapy Visit Information Visit Information Visit Type Treatment Note Visit Start Time 10:32 Visit Stop Time 11:27 Total Visit Minutes 55 Visit Number 51 Number of ENGINEERING LABORATORY TECHNICIAN Visits 0 PT-OP-B Current Condition Start: 05/28/19 08:11 Freq: Status: Active Protocol: Document 10/31/19 11:15 SAK (Rec: 10/31/19 11:57 SAK [id number]) Current Condition History of Current Condition Onset Date 2014 Current Complaints weakness, requires assistance with all mobility and household tasks History of Current Condition Reports that she suffered a stroke in 2014 after surgery for brain aneurysm. CVA caused weakness on the left side of her body, gait and balance difficulty, seizures. Treatment Goals Patient/Caregiver Goals Improve strength, get faster with walking including on stairs, improve balance. PT-OP-C Subjective Start: 05/28/19 08:11 Freq: Status: Active Protocol: Document 03/19/20 10:31 SAK (Rec: 03/19/20 12:52 [facility] [id number]) OP-PT Subjective Patient Comments Patient Comments Patient reports she doesn't feel she is ready for treadmill, not feeling she is walking good enough PT-OP-D Balance Start: 05/28/19 08:11 Freq: Status: Active Protocol: Document 05/29/19 14:30 SAK (Rec: 05/30/19 14:24 SAK [id number]) OP-PT Balance Assessment Sitting Balance Static Sitting Balance Ability Good Dynamic Sitting Balance Ability Fair Standing Balance Static Standing Balance Ability Good Dynamic Standing Balance Ability Fair [facility] right Tinetti Balance Assessment Sitting Balance Sitting Balance Steady, safe Arising from Chair Attempts to Arise Able, requires >1 attempt Standing Balance Immediate Standing Balance Steady with support Standing Balance Steady, wide stance Nudged Response Begins to fall Standing with Eyes Closed Unsteady Turning Step Pattern Turning 360 Degrees Discontinuous steps Stability Turning 360 Degrees Unsteady, grabs/staggers Sitting Down Sitting Down Uses arms or unsteady Gait and Step Initiation of Gait Hesitancy, mult. attempts Right Foot Step Length Does not pass stance ft. Right Foot Step Height Does not clear floor Left Foot Step Length Does not pass stance foot Left Foot Step Height Does not clear floor Step Description Step Symmetry Step length not equal Gait Description Path Description Mild/moderate deviation Trunk Description Marked sway or uses aide Walking Stance Heels apart Scoring and Interpretation Tinetti Composite Score (points) 6 Interpretation of Scores High risk for falls(< 19) Herrera Fall Scale Copyright Permission PT-OP-E Functional Tests Start: 05/28/19 08:11 Freq: Status: Active Protocol: Document 01/07/20 09:01 SP (Rec: 01/07/20 11:11 SP [id number]) Functional Tests 2 Minute Walk Test Distance 44ft Device Used SBQC Comments improved L hip IR and decreased knee hyperextension PT-OP-G Mobility & Gait Start: 05/28/19 08:11 Freq: Status: Active Protocol: Document 05/29/19 14:30 [facility] (Rec: 05/30/19 14:24 [facility] [id number]) OP Mobility Evaluation Bed Mobility Rolling min assist Supine to and from Sit min assist Transfers Sit to Stand uses right UE Bed to Chair Transfers uses right UE Floor Transfers unable Functional Movements Squats uses primarily right LE OP Gait Assessment Gait Gait Assistance Required: Standby Assistance Distance (Feet) 20 Assistive Devices Assistive Device Morro Walker Orthotic/Prosthetic Devices or Brace: Yes Gait Deviations General Gait Pattern Decreased Stride Length, Decreased Feet Clearance, Lateral Trunk Lean,Wide Based Gait Factors Limiting Gait Function Factors Limiting Gait Function Abnormal Tonal Influences, Decreased Strength PT-OP-H Neuro Start: 05/28/19 08:11 Freq: Status: Active Protocol: Document 05/29/19 14:30 SAK (Rec: 05/30/19 14:24 SAK [id number]) Sensation Evaluation Gross Sensation Gross Sensation Left UE Impaired,Left LE Impaired Sensation Description Paresthesia,Numbness Coordination Evaluation Lower Extremity Tests Left Alternate Heel to Knee; Heel to Toe Test Moderate Impairment Heel on Boles Test Moderate Impairment Foot Tapping Test Moderate Impairment PT-OP-K Range of Motion Start: 05/28/19 08:11 Freq: Status: Active Protocol: Document 05/29/19 14:30 SAK (Rec: 05/30/19 14:24 [facility] [id number]) Hip Goniometric Range of Motion Hip jake Hip ROM WFL Yes Knee Goniometric Range of Motion Knee jake Knee ROM WFL Yes Ankle and Foot Goniometric Range of Motion Ankle and Foot Left Active Ankle/Foot ROM WFL No Right Ankle/Foot ROM WFL Yes Ankle and Foot ROM Limitations Comments left ankle df -5, right 5 PT-OP-M Strength Start: 05/28/19 08:11 Freq: Status: Active Protocol: Document 05/29/19 14:30 [facility] (Rec: 05/30/19 14:24 [facility] [id number]) Hip Strength Hip Manual Muscle Testing Left Flexion (L2) 3- Fair- Extension (S1) 2 Poor Abduction 2+ Poor+ External Rotation 3- Fair- Internal Rotation 3+ Fair+ Right Flexion (L2) 4 Good Extension (S1) 4- Good- Abduction 4 Good External Rotation 3+ Fair+ Internal Rotation 4- Good- Knee Strength Knee Manual Muscle Testing Left Flexion (S2) 3 Fair Extension (L3) 3+ Fair+ Right Flexion (S2) 4+ Good+ Extension (L3) 4+ Good+ Ankle/Foot Strength Ankle and Foot Manual Muscle Testing Left Dorsiflexion (L4) 0 Zero Plantarflexion (S1) 0 Zero Right Dorsiflexion (L4) 4+ Good+ Plantarflexion (S1) 4+ Good+ PT-OP-Q Treatments Start: 05/28/19 08:11 Freq: Status: Active Protocol: Document 03/19/20 10:31 [facility] (Rec: 03/19/20 11:17 [facility] [id number]) Therapeutic Exercises Sitting Exercises sit up Sitting Exercise Name reverse sit up Reps/Minutes 10 Comments focus on core and posture, equal R/L weight bearing with mirror for feedbac Standing Exercises minisquats Standing Exercise Name squats Reps/Minutes 10x Comments mirror for visual feedback sit to stands Reps/Minutes 5x Comments manual cues for left LE alignment and L quad activation Gait Training Gait Activity pre-gait weight shifts Description AP, side to side Device Used parallel bars Level of Assistance CG to min assist, verbal and manual cues Surface firm Treatment Focus increased weight bearing left LE Comments with mirror to focus on inc L WB 1 Description level surface (Blue TB spiral wrap) Device Used single point cane Level of Assistance close SBA Surface level floor, firm Distance/Duration 250' Treatment Focus L hip IR and decrease L knee hyperextension, pacing Comments 1.L4 TB tied at left shoe, wrapped around clockwise LE and tied to gait belt assist with internal rotation foot/ hip facilitation cues for forward trunk positioning to allow LLE proper alignment. 2.protraction of left hip with gait Use of metronome @50bpm for training gait enrike Neuro Re-Education Treatment Balance Activities Modified SLS Details Modified SLS on LLE Equipment right foot on blue foam Reps/Duration 2x60 seconds Comments RLE on foam with verbal cues to place majority of weight through LLE in order to facilitate WB. CGA to min assist/facil needed rhythmic stabilization Details standing Surface firm Reps/Duration 5 min Comments pressure at hips all directions, slow directional changes tiltboard Details A/P, side bal and weight shift Comments parallel bars unilateral UE support PT-OP-R Modalities Start: 05/28/19 08:11 Freq: Status: Active Protocol: Document 03/19/20 10:31 SAK (Rec: 03/19/20 11:17 SAK [id number]) Electric Stimulation Electric Stimulation Functional Electric Stimulation Body Location left anterior tib Duration (Minutes) 10 Intensity 52 Contraction Type Normal Cycle 10/10 Ramp 2.0 Patient Position Sitting Comments [place] stim PT-OP-S Aquatic Treatment Start: 05/28/19 08:11 Freq: Status: Active Protocol: Document 07/13/19 10:15 NIALY (Rec: 07/13/19 15:03 LJ [id number]) Aquatics Treatment Pool Entry/Exit Pool Entry/Exit Method Lift Assistance Minimal Assistance Water Walking Marching Water Level Chest Level Walking Equipment Ankle Weight- 2.5#, sm float on LUE, sm [place] float Level of Assistance Contact Guard Assistance, Minimal Assistance,Verbal Cues Sideways Water Level Chest Level Walking Equipment Ankle Weight- 2.5#, sm float on LUE Level of Assistance Contact Guard Assistance, Minimal Assistance,Verbal Cues Forwards Water Level Chest Level Walking Equipment Ankle Weight- 2.5#, sm float on LUE Level of Assistance Contact Guard Assistance, Minimal Assistance,Verbal Cues Lower Extremity Exercises pushing off wall with uni and bilateral LEs Details supine with feet against wall Body Position Supine Equipment neck and hip floats Reps/Duration 10 bilateral and 10 LLE Comments stabilizing at left knee to prevent lateral rotation left hip flex/ext Details standing on box with right foot Body Position Standing Water Level Waist Level Equipment Ankle Weight- 2.5# Reps/Duration 10 Comments manual assist for maintaining knee extension weight shifting staggard stance Details HH on wall Body Position Standing Water Level Waist Level Equipment Ankle Weight- 2.5#, sm float on LUE Comments assist with bracing left knee SLS LLE Details HH on wall Body Position Standing Water Level Waist Level Equipment Ankle Weight- 2.5#, sm float on LUE Reps/Duration [id number] sec Comments assist with bracing LLE, weight [id number] Details at wall Body Position Standing Water Level Waist Level Equipment Ankle Weight- 2.5#, sm float on LUE Comments assist with bracing left knee Upper Extremity Exercises pull downs Details standing at wall Water Level Chest Level Equipment BBs Reps/Duration 10 Comments assist with LUE HABD/HADD with long BB Body Position Standing Water Level Chest Level Reps/Duration 12x Comments assist with left hand on BB push pull Details back against wall Body Position Standing Water Level Waist Level Equipment lg BB Reps/Duration 10x Spinal Exercises Bad Ragaz Details trunk stabilization Body Position Supine Equipment Neck Float, hip float, arm float, LE floats Reps/Duration 2 min Manual Techniques Bad Ragaz hip ab/ad with manual resistance supine PT-OP-T Assessment and Plan Start: 05/28/19 08:11 Freq: Status: Active Protocol: Document 03/19/20 10:31 [facility] (Rec: 03/19/20 12:52 [facility] [id number]) Physical Therapy Assessment Goals Four Impairment requires assistance with bed mobility and transfers Short Term Goal (STG) Patient will be able to perform all bed mobility independently to improve her functional independence. 10/31/19: good goal progress STG Duration goal met Senior Controls Analyst Goal (LTG) Patient will be able to perform a floor transfer with SB to min assist 10/31/19: max assist today 01/02/20: has not been willing to try since 10/31/19 LTG Duration 04/02/20 Three Impairment weakness left UE and LE s/p CVA Senior Controls Analyst Goal (LTG) Improve functional strength in left LE, as evidenced by ability to move from sit > < stand without use of UE's. Request OT for left UE rehab. 10/31/19: OT starts tomorrow. Good progress with sit to stand, though mostly using right UE and LE 01/02/20: Improving ability to perform, able to increase weight-bearing through left LE with cues, but still some use of right UE LTG Duration 04/02/20 Two Impairment balance dysfunction with high risk for falls Senior Controls Analyst Goal (LTG) Improve balance as evidenced by improvement in Tinnetti balance and gait score to low fall risk range to improve safety in the home and community. 10/31/19: remains high risk for falls 01/02/20: some improvement but still in high risk category LTG Duration 04/02/20 One Impairment requires morro-walker for gait, limited to household gait Fci Goal (LTG) Patient able to ambulate with least restrictive device for functional community distances to improve her functional independence and quality of life. 10/30/19: no progress due to Covid 19. 11/02/19: able to ambulate with quad cane but with very slow speed, household distances, very short community distances . LTG Duration 04/02/20 Physical Therapy Plan Frequency and Duration Frequency of Treatment 2x/Week Duration of Treatment 12 wks Plan of Care Start Date 01/02/20 Plan of Care End Date 04/02/20 Therapeutic Interventions Therapeutic Interventions Aquatic Therapy,Balance Training,Gait Training,Home Exercise Program,Neuromuscular Re-education,Orthotic/ Prosthetic Management,Patient/ Caregiver Education,Self-Care/ Home Management,Taping, Therapeutic Activities, Therapeutic Exercises Modalities Cold Pack/Ice Massage,Hot Packs Next Visit Focus/Plan Next Note Type Treatment Note Next Visit Plan Continue PT for neuro re-ed, balance, gait training. balloon volleyball and other activities to encourage more automatic balance reactions
--- NOTE | 2020-03-26 08:16 | PT-OP ANOTE ---
cancelled due to conflict with MD forde
--- NOTE | 2020-03-26 11:39 | PT.OTN ---
Current Diagnoses Hemiplegia, unspecified affecting unspecified side (03/26/20) Difficulty in walking, not elsewhere classified (03/26/20) Weakness (03/26/20) History of falling (03/26/20) Physical Therapy Treatment Note PT-OP-A Visit Information Start: 05/28/19 08:11 Freq: Status: Active Protocol: Document 03/26/20 11:26 AW (Rec: 03/26/20 11:39 AW [id number]) Out-Patient Physical Therapy Visit Information Visit Information Visit Type Treatment Note Visit Note Pt was able to reschedule with this therapist for 10:30. Visit Start Time 10:33 Visit Stop Time 11:15 Total Visit Minutes 42 Visit Number 52 Number of ADDICTION MEDICINE PHYSICIAN Visits 0 PT-OP-B Current Condition Start: 05/28/19 08:11 Freq: Status: Active Protocol: Document 10/31/19 11:15 SAK (Rec: 10/31/19 11:57 SAK [id number]) Current Condition History of Current Condition Onset Date 2014 Current Complaints weakness, requires assistance with all mobility and household tasks History of Current Condition Reports that she suffered a stroke in 2014 after surgery for brain aneurysm. CVA caused weakness on the left side of her body, gait and balance difficulty, seizures. Treatment Goals Patient/Caregiver Goals Improve strength, get faster with walking including on stairs, improve balance. PT-OP-C Subjective Start: 05/28/19 08:11 Freq: Status: Active Protocol: Document 03/26/20 11:26 AW (Rec: 03/26/20 11:39 AW [id number]) OP-PT Subjective Patient Comments Patient Comments Pt has a headache today but is willing to work with PT. Since she had not planned to attend therapy, she does not have her arm sling. PT-OP-D Balance Start: 05/28/19 08:11 Freq: Status: Active Protocol: Document 05/29/19 14:30 SAK (Rec: 05/30/19 14:24 SAK [id number]) OP-PT Balance Assessment Sitting Balance Static Sitting Balance Ability Good Dynamic Sitting Balance Ability Fair Standing Balance Static Standing Balance Ability Good Dynamic Standing Balance Ability Fair Device Used hemiwalker right Tinetti Balance Assessment Sitting Balance Sitting Balance Steady, safe Arising from Chair Attempts to Arise Able, requires >1 attempt Standing Balance Immediate Standing Balance Steady with support Standing Balance Steady, wide stance Nudged Response Begins to fall Standing with Eyes Closed Unsteady Turning Step Pattern Turning 360 Degrees Discontinuous steps Stability Turning 360 Degrees Unsteady, grabs/staggers Sitting Down Sitting Down Uses arms or unsteady Gait and Step Initiation of Gait Hesitancy, mult. attempts Right Foot Step Length Does not pass stance ft. Right Foot Step Height Does not clear floor Left Foot Step Length Does not pass stance foot Left Foot Step Height Does not clear floor Step Description Step Symmetry Step length not equal Gait Description Path Description Mild/moderate deviation Trunk Description Marked sway or uses aide Walking Stance Heels apart Scoring and Interpretation Tinetti Composite Score (points) 6 Interpretation of Scores High risk for falls(< 19) Herrera Fall Scale Copyright Permission PT-OP-E Functional Tests Start: 05/28/19 08:11 Freq: Status: Active Protocol: Document 01/07/20 09:01 SP (Rec: 01/07/20 11:11 SP [id number]) Functional Tests 2 Minute Walk Test Distance 44ft Device Used SBQC Comments improved L hip IR and decreased knee hyperextension PT-OP-G Mobility & Gait Start: 05/28/19 08:11 Freq: Status: Active Protocol: Document 05/29/19 14:30 [facility] (Rec: 05/30/19 14:24 SAK [id number]) OP Mobility Evaluation Bed Mobility Rolling min assist Supine to and from Sit min assist Transfers Sit to Stand uses right UE Bed to Chair Transfers uses right UE Floor Transfers unable Functional Movements Squats uses primarily right LE OP Gait Assessment Gait Gait Assistance Required: Standby Assistance Distance (Feet) 20 Assistive Devices Assistive Device Morro Walker Orthotic/Prosthetic Devices or Brace: Yes Gait Deviations General Gait Pattern Decreased Stride Length, Decreased Feet Clearance, Lateral Trunk Lean,Wide Based Gait Factors Limiting Gait Function Factors Limiting Gait Function Abnormal Tonal Influences, Decreased Strength PT-OP-H Neuro Start: 05/28/19 08:11 Freq: Status: Active Protocol: Document 05/29/19 14:30 SAK (Rec: 05/30/19 14:24 [facility] [id number]) Sensation Evaluation Gross Sensation Gross Sensation Left UE Impaired,Left LE Impaired Sensation Description Paresthesia,Numbness Coordination Evaluation Lower Extremity Tests Left Alternate Heel to Knee; Heel to Toe Test Moderate Impairment Heel on Boles Test Moderate Impairment Foot Tapping Test Moderate Impairment PT-OP-K Range of Motion Start: 05/28/19 08:11 Freq: Status: Active Protocol: Document 05/29/19 14:30 SAK (Rec: 05/30/19 14:24 SAK [id number]) Hip Goniometric Range of Motion Hip jake Hip ROM WFL Yes Knee Goniometric Range of Motion Knee jake Knee ROM WFL Yes Ankle and Foot Goniometric Range of Motion Ankle and Foot Left Active Ankle/Foot ROM WFL No Right Ankle/Foot ROM WFL Yes Ankle and Foot ROM Limitations Comments left ankle df -5, right 5 PT-OP-M Strength Start: 05/28/19 08:11 Freq: Status: Active Protocol: Document 05/29/19 14:30 SAK (Rec: 05/30/19 14:24 SAK [id number]) Hip Strength Hip Manual Muscle Testing Left Flexion (L2) 3- Fair- Extension (S1) 2 Poor Abduction 2+ Poor+ External Rotation 3- Fair- Internal Rotation 3+ Fair+ Right Flexion (L2) 4 Good Extension (S1) 4- Good- Abduction 4 Good External Rotation 3+ Fair+ Internal Rotation 4- Good- Knee Strength Knee Manual Muscle Testing Left Flexion (S2) 3 Fair Extension (L3) 3+ Fair+ Right Flexion (S2) 4+ Good+ Extension (L3) 4+ Good+ Ankle/Foot Strength Ankle and Foot Manual Muscle Testing Left Dorsiflexion (L4) 0 Zero Plantarflexion (S1) 0 Zero Right Dorsiflexion (L4) 4+ Good+ Plantarflexion (S1) 4+ Good+ PT-OP-Q Treatments Start: 05/28/19 08:11 Freq: Status: Active Protocol: Document 03/26/20 11:26 AW (Rec: 03/26/20 11:39 AW [email or web address]) Cardio Equipment Recumbent Elliptical (Biodex) Duration (Minutes) 5 Resistance 1 Other AFO donned, unable to hold LUE on arm bar w/support, LLE add cues Therapeutic Exercises Standing Exercises minisquats Standing Exercise Name squats Reps/Minutes 10x Comments mirror for visual feedback sit to stands Reps/Minutes 5x Comments manual cues for left LE alignment and L quad activation Gait Training Gait Activity 1 Description level surface (Blue TB spiral wrap) Device Used single point cane Level of Assistance close SBA Surface level floor, firm Distance/Duration 300' Treatment Focus L hip IR and decrease L knee hyperextension, pacing Comments 1.L4 TB tied at left shoe, wrapped around clockwise LE and tied to gait belt assist with internal rotation foot/ hip facilitation cues for forward trunk positioning to allow LLE proper alignment. 2.protraction of left hip with gait Did not use metronome this visit. Neuro Re-Education Treatment Balance Activities Modified SLS Details Modified SLS on LLE Equipment right foot on blue foam Reps/Duration 2x60 seconds Comments RLE on foam with verbal cues to place majority of weight through LLE in order to facilitate WB. CGA to min assist/facil needed rhythmic stabilization Details standing Surface firm Reps/Duration 5 min Comments pressure at hips all directions, slow directional changes PT-OP-R Modalities Start: 05/28/19 08:11 Freq: Status: Active Protocol: Document 03/19/20 10:31 SAK (Rec: 03/19/20 11:17 SAK [id number]) Electric Stimulation Electric Stimulation Functional Electric Stimulation Body Location left anterior tib Duration (Minutes) 10 Intensity 52 Contraction Type Normal Cycle 10/10 Ramp 2.0 Patient Position Sitting Comments Iranian stim PT-OP-S Aquatic Treatment Start: 05/28/19 08:11 Freq: Status: Active Protocol: Document 07/13/19 10:15 LJ (Rec: 07/13/19 15:03 LJ [id number]) Aquatics Treatment Pool Entry/Exit Pool Entry/Exit Method Lift Assistance Minimal Assistance Water Walking Marching Water Level Chest Level Walking Equipment Ankle Weight- 2.5#, sm float on LUE, sm sitka float Level of Assistance Contact Guard Assistance, Minimal Assistance,Verbal Cues Sideways Water Level Chest Level Walking Equipment Ankle Weight- 2.5#, sm float on LUE Level of Assistance Contact Guard Assistance, Minimal Assistance,Verbal Cues Forwards Water Level Chest Level Walking Equipment Ankle Weight- 2.5#, sm float on LUE Level of Assistance Contact Guard Assistance, Minimal Assistance,Verbal Cues Lower Extremity Exercises pushing off wall with uni and bilateral LEs Details supine with feet against wall Body Position Supine Equipment neck and hip floats Reps/Duration 10 bilateral and 10 LLE Comments stabilizing at left knee to prevent lateral rotation left hip flex/ext Details standing on box with right foot Body Position Standing Water Level Waist Level Equipment Ankle Weight- 2.5# Reps/Duration 10 Comments manual assist for maintaining knee extension weight shifting staggard stance Details HH on wall Body Position Standing Water Level Waist Level Equipment Ankle Weight- 2.5#, sm float on LUE Comments assist with bracing left knee SLS LLE Details HH on wall Body Position Standing Water Level Waist Level Equipment Ankle Weight- 2.5#, sm float on LUE Reps/Duration 3v09-92 sec Comments assist with bracing LLE, weight [id number]-side Details at wall Body Position Standing Water Level Waist Level Equipment Ankle Weight- 2.5#, sm float on LUE Comments assist with bracing left knee Upper Extremity Exercises pull downs Details standing at wall Water Level Chest Level Equipment BBs Reps/Duration 10 Comments assist with LUE HABD/HADD with long BB Body Position Standing Water Level Chest Level Reps/Duration 12x Comments assist with left hand on BB push pull Details back against wall Body Position Standing Water Level Waist Level Equipment lg BB Reps/Duration 10x Spinal Exercises Bad Ragaz Details trunk stabilization Body Position Supine Equipment Neck Float, hip float, arm float, LE floats Reps/Duration 2 min Manual Techniques Bad Issacaz hip ab/ad with manual resistance supine PT-OP-T Assessment and Plan Start: 05/28/19 08:11 Freq: Status: Active Protocol: Document 03/26/20 11:26 AW (Rec: 03/26/20 11:39 AW [email or web address]) Physical Therapy Assessment Goals Four Impairment requires assistance with bed mobility and transfers Short Term Goal (STG) Patient will be able to perform all bed mobility independently to improve her functional independence. 10/31/19: good goal progress STG Duration goal met Culvert Installer Goal (LTG) Patient will be able to perform a floor transfer with SB to min assist 10/31/19: max assist today 01/02/20: has not been willing to try since 10/31/19 LTG Duration 04/02/20 Three Impairment weakness left UE and LE s/p CVA Long-Term Goal (LTG) Improve functional strength in left LE, as evidenced by ability to move from sit > < stand without use of UE's. Request OT for left UE rehab. 10/31/19: OT starts tomorrow. Good progress with sit to stand, though mostly using right UE and LE 01/02/20: Improving ability to perform, able to increase weight-bearing through left LE with cues, but still some use of right UE LTG Duration 04/02/20 Two Impairment balance dysfunction with high risk for falls Long-Term Goal (LTG) Improve balance as evidenced by improvement in Tinnetti balance and gait score to low fall risk range to improve safety in the home and community. 10/31/19: remains high risk for falls 01/02/20: some improvement but still in high risk category LTG Duration 04/02/20 One Impairment requires morro-walker for gait, limited to household gait Culvert Installer Goal (LTG) Patient able to ambulate with least restrictive device for functional community distances to improve her functional independence and quality of life. 10/30/19: no progress due to Covid 19. 11/02/19: able to ambulate with quad cane but with very slow speed, household distances, very short community distances . LTG Duration 04/02/20 Assessment Summary Assessment Pt was limited by headache pain at this visit but worked hard with all activities. Gait training focused on internal rotation L hip, reduction in knee hyperextension, and heelstrike at inital contact. Physical Therapy Plan Frequency and Duration Frequency of Treatment 2x/Week Duration of Treatment 12 wks Plan of Care Start Date 01/02/20 Plan of Care End Date 04/02/20 Therapeutic Interventions Therapeutic Interventions Aquatic Therapy,Balance Training,Gait Training,Home Exercise Program,Neuromuscular Re-education,Orthotic/ Prosthetic Management,Patient/ Caregiver Education,Self-Care/ Home Management,Taping, Therapeutic Activities, Therapeutic Exercises Modalities Cold Pack/Ice Massage,Hot Packs Next Visit Focus/Plan Next Note Type Treatment Note Next Visit Plan Continue PT for neuro re-ed, balance, gait training. balloon volleyball and other activities to encourage more automatic balance reactions
--- NOTE | 2020-05-26 17:04 | PT.OTN ---
Current Diagnoses Hemiplegia, unspecified affecting unspecified side (05/26/20) Difficulty in walking, not elsewhere classified (05/26/20) Weakness (05/26/20) History of falling (05/26/20) Physical Therapy Treatment Note PT-OP-A Visit Information Start: 05/28/19 08:11 Freq: Status: Active Protocol: Document 05/26/20 11:15 SAK (Rec: 05/26/20 17:04 [facility] [id number]) Out-Patient Physical Therapy Visit Information Visit Information Visit Type Treatment Note Visit Start Time 11:15 Visit Stop Time 12:02 Total Visit Minutes 47 Visit Number 53 Number of EXHAUST EMISSIONS AUTOMOTIVE TECHNICIAN Visits 0 PT-OP-B Current Condition Start: 05/28/19 08:11 Freq: Status: Active Protocol: Document 10/31/19 11:15 SAK (Rec: 10/31/19 11:57 SAK [id number]) Current Condition History of Current Condition Onset Date 2014 Current Complaints weakness, requires assistance with all mobility and household tasks History of Current Condition Reports that she suffered a stroke in 2014 after surgery for brain aneurysm. CVA caused weakness on the left side of her body, gait and balance difficulty, seizures. Treatment Goals Patient/Caregiver Goals Improve strength, get faster with walking including on stairs, improve balance. PT-OP-C Subjective Start: 05/28/19 08:11 Freq: Status: Active Protocol: Document 05/26/20 11:15 SAK (Rec: 05/26/20 17:04 [facility] [id number]) OP-PT Subjective Patient Comments Patient Comments States she fell at home back in April, doesn't know what happened but fell forward, no serious injury. Then was sick for 1 week, Covid19 test negative. States she is feeling weak but glad to back in PT. Caregiver present who states she is getting better at putting the theraband on Brittany's leg to correct the rotation for walking. Patient frustrated she can't do on her own. PT-OP-D Balance Start: 05/28/19 08:11 Freq: Status: Active Protocol: Document 05/29/19 14:30 SAK (Rec: 05/30/19 14:24 SAK [id number]) OP-PT Balance Assessment Sitting Balance Static Sitting Balance Ability Good Dynamic Sitting Balance Ability Fair Standing Balance Static Standing Balance Ability Good Dynamic Standing Balance Ability Fair Device Used hemiwalker right Tinetti Balance Assessment Sitting Balance Sitting Balance Steady, safe Arising from Chair Attempts to Arise Able, requires >1 attempt Standing Balance Immediate Standing Balance Steady with support Standing Balance Steady, wide stance Nudged Response Begins to fall Standing with Eyes Closed Unsteady Turning Step Pattern Turning 360 Degrees Discontinuous steps Stability Turning 360 Degrees Unsteady, grabs/staggers Sitting Down Sitting Down Uses arms or unsteady Gait and Step Initiation of Gait Hesitancy, mult. attempts Right Foot Step Length Does not pass stance ft. Right Foot Step Height Does not clear floor Left Foot Step Length Does not pass stance foot Left Foot Step Height Does not clear floor Step Description Step Symmetry Step length not equal Gait Description Path Description Mild/moderate deviation Trunk Description Marked sway or uses aide Walking Stance Heels apart Scoring and Interpretation Tinetti Composite Score (points) 6 Interpretation of Scores High risk for falls(< 19) Herrera Fall Scale Copyright Permission PT-OP-E Functional Tests Start: 05/28/19 08:11 Freq: Status: Active Protocol: Document 05/26/20 11:15 [facility] (Rec: 05/26/20 17:04 [facility] [id number]) Functional Tests 2 Minute Walk Test Distance 39 ft Device Used single point cane Comments derotation application of level 4 theraband to decrease excess ER right LE PT-OP-G Mobility & Gait Start: 05/28/19 08:11 Freq: Status: Active Protocol: Document 05/26/20 11:15 [facility] (Rec: 05/26/20 17:04 [facility] [id number]) OP Mobility Evaluation Bed Mobility Rolling min assist to right CGA to left Supine to and from Sit min assist to right CGA to left Transfers Sit to Stand CGA to min assist without UE use Bed to Chair Transfers requires use of right UE but able to do with SBA Floor Transfers unable PT-OP-H Neuro Start: 05/28/19 08:11 Freq: Status: Active Protocol: Document 05/29/19 14:30 [facility] (Rec: 05/30/19 14:24 [facility] [id number]) Sensation Evaluation Gross Sensation Gross Sensation Left UE Impaired,Left LE Impaired Sensation Description Paresthesia,Numbness Coordination Evaluation Lower Extremity Tests Left Alternate Heel to Knee; Heel to Toe Test Moderate Impairment Heel on Boles Test Moderate Impairment Foot Tapping Test Moderate Impairment PT-OP-K Range of Motion Start: 05/28/19 08:11 Freq: Status: Active Protocol: Document 05/26/20 11:15 [facility] (Rec: 05/26/20 17:04 [facility] [id number]) Hip Goniometric Range of Motion Hip jake Hip ROM WFL Yes Comments actively right LE, passively left LE Knee Goniometric Range of Motion Knee jake Knee ROM WFL Yes Ankle and Foot Goniometric Range of Motion Ankle and Foot Left Passive Ankle/Foot ROM WFL No Left Active Ankle/Foot ROM WFL No PT-OP-M Strength Start: 05/28/19 08:11 Freq: Status: Active Protocol: Document 05/26/20 11:15 [facility] (Rec: 05/26/20 17:04 [facility] [id number]) Hip Strength Hip Manual Muscle Testing Left Flexion (L2) 3- Fair- Extension (S1) 2 Poor Abduction 2+ Poor+ External Rotation 3- Fair- Internal Rotation 3+ Fair+ Right Flexion (L2) 4 Good Extension (S1) 4- Good- Abduction 4 Good External Rotation 3+ Fair+ Internal Rotation 4- Good- PT-OP-Q Treatments Start: 05/28/19 08:11 Freq: Status: Active Protocol: Document 05/26/20 11:15 [facility] (Rec: 05/26/20 17:04 [facility] [id number]) Therapeutic Exercises Standing Exercises weight-shifting Standing Exercise Name side to side Reps/Minutes 2 Comments mirror for visual feedback minisquats Standing Exercise Name squats Reps/Minutes 10x Comments mirror for visual feedback sit to stands Reps/Minutes 5x Comments manual cues for left LE alignment and L quad activation Gait Training Gait Activity pre-gait weight shifts Description AP, side to side Device Used bar at right Level of Assistance CG to min assist, verbal and manual cues Surface firm Treatment Focus increased weight bearing left LE Comments with mirror to focus on inc L WB 1 Description level surface (Blue TB spiral wrap) Device Used single point cane Level of Assistance close SBA Surface level floor, firm Distance/Duration 300' Treatment Focus L hip IR and decrease L knee hyperextension, pacing Comments 1.L4 TB tied at left shoe, wrapped around clockwise LE and tied to gait belt assist with internal rotation foot/ hip facilitation cues for forward trunk positioning to allow LLE proper alignment. 2.protraction of left hip with gait Did not use metronome this visit. Neuro Re-Education Treatment Balance Activities rhythmic stabilization Details standing Surface firm Reps/Duration 5 min Comments pressure at hips all directions, slow directional changes PT-OP-R Modalities Start: 05/28/19 08:11 Freq: Status: Active Protocol: Document 03/19/20 10:31 SAK (Rec: 03/19/20 11:17 SAK [id number]) Electric Stimulation Electric Stimulation Functional Electric Stimulation Body Location left anterior tib Duration (Minutes) 10 Intensity 52 Contraction Type Normal Cycle 10/10 Ramp 2.0 Patient Position Sitting Comments [place] stim PT-OP-S Aquatic Treatment Start: 05/28/19 08:11 Freq: Status: Active Protocol: Document 07/13/19 10:15 LJ (Rec: 07/13/19 15:03 LJ [id number]) Aquatics Treatment Pool Entry/Exit Pool Entry/Exit Method Lift Assistance Minimal Assistance Water Walking Marching Water Level Chest Level Walking Equipment Ankle Weight- 2.5#, sm float on LUE, sm sun'aq float Level of Assistance Contact Guard Assistance, Minimal Assistance,Verbal Cues Sideways Water Level Chest Level Walking Equipment Ankle Weight- 2.5#, sm float on LUE Level of Assistance Contact Guard Assistance, Minimal Assistance,Verbal Cues Forwards Water Level Chest Level Walking Equipment Ankle Weight- 2.5#, sm float on LUE Level of Assistance Contact Guard Assistance, Minimal Assistance,Verbal Cues Lower Extremity Exercises pushing off wall with uni and bilateral LEs Details supine with feet against wall Body Position Supine Equipment neck and hip floats Reps/Duration 10 bilateral and 10 LLE Comments stabilizing at left knee to prevent lateral rotation left hip flex/ext Details standing on box with right foot Body Position Standing Water Level Waist Level Equipment Ankle Weight- 2.5# Reps/Duration 10 Comments manual assist for maintaining knee extension weight shifting staggard stance Details HH on wall Body Position Standing Water Level Waist Level Equipment Ankle Weight- 2.5#, sm float on LUE Comments assist with bracing left knee SLS LLE Details HH on wall Body Position Standing Water Level Waist Level Equipment Ankle Weight- 2.5#, sm float on LUE Reps/Duration [id number] sec Comments assist with bracing LLE, weight [id number] Details at wall Body Position Standing Water Level Waist Level Equipment Ankle Weight- 2.5#, sm float on LUE Comments assist with bracing left knee Upper Extremity Exercises pull downs Details standing at wall Water Level Chest Level Equipment BBs Reps/Duration 10 Comments assist with LUE HABD/HADD with long BB Body Position Standing Water Level Chest Level Reps/Duration 12x Comments assist with left hand on BB push pull Details back against wall Body Position Standing Water Level Waist Level Equipment lg BB Reps/Duration 10x Spinal Exercises Bad Ragaz Details trunk stabilization Body Position Supine Equipment Neck Float, hip float, arm float, LE floats Reps/Duration 2 min Manual Techniques Bad Ragaz hip ab/ad with manual resistance supine PT-OP-T Assessment and Plan Start: 05/28/19 08:11 Freq: Status: Active Protocol: Document 05/26/20 11:15 SAK (Rec: 05/26/20 17:04 SAK [id number]) Physical Therapy Assessment Goals Five Impairment gait speed not adequate for safe community ambulation Assisted Goal (LTG) Patient able to ambulate 300' in 6 min LTG Duration 08/24/20 Four Impairment requires assistance with bed mobility and transfers Short Term Goal (STG) Patient will be able to perform all bed mobility independently to improve her functional independence. 10/31/19: good goal progress STG Duration goal met Assisted Goal (LTG) Patient will be able to perform a floor transfer with SB to min assist 10/31/19: max assist today 01/02/20: has not been willing to try since 10/31/19 LTG Duration 08/24/20 Three Impairment weakness left UE and LE s/p CVA Assisted Goal (LTG) Improve functional strength in left LE, as evidenced by ability to move from sit > < stand without use of UE's. 10/31/19: OT starts tomorrow. Good progress with sit to stand, though mostly using right UE and LE 01/02/20: Improving ability to perform, able to increase weight-bearing through left LE with cues, but still some use of right UE 05/26/20: With manual and visual feedback patient able to transfer sit to stand with only CG A. LTG Duration 08/24/20 Two Impairment balance dysfunction with high risk for falls Assisted Goal (LTG) Improve balance as evidenced by improvement in Tinnetti balance and gait score to low fall risk range to improve safety in the home and community. 10/31/19: remains high risk for falls 01/02/20: some improvement but still in high risk category 05/26/20: Tinetti score in high risk category LTG Duration 08/24/20 One Impairment requires armaan-walker for gait, limited to household gait Butter Wrapper Goal (LTG) Patient able to ambulate with least restrictive device for functional community distances to improve her functional independence and quality of life. 10/30/19: no progress due to Covid 19. 11/02/19: able to ambulate with quad cane but with very slow speed, household distances, very short community distances . 05/26/20: Now able to ambulate with use of single point cane and use of L4 theraband wrapped around left LE to facilitate left LE internal rotation for improved alignment. Patient unable to don the theraband on her own. Gait is for short distances and very slow at 39 ft in 2 min. LTG Duration 08/24/20 Assessment Summary Assessment Despite feeling weak, patient demonstrated improved focus and continues to benefit highly from use of mirror for visual feedback for alignment as she has much difficulty sensing when she is compensating. Sit to stands and squats performed without her AFO to allow more normal movement of her ankle joint. She has progressed from use of quad cane or armaan-walker to use of single point cane indoors, though her gait is very slow and not functional for safe community ambulation. She fatigues quickly and also c/o burning pain in her left LE with gait. Would benefit from continued skilled PT to help her address her above PT goals. Physical Therapy Plan Frequency and Duration Frequency of Treatment 2x/Week Duration of Treatment 12 wks Plan of Care Start Date 05/26/20 Plan of Care End Date 08/24/20 Therapeutic Interventions Therapeutic Interventions Aquatic Therapy,Balance Training,Gait Training,Home Exercise Program,Neuromuscular Re-education,Orthotic/ Prosthetic Management,Patient/ Caregiver Education,Self-Care/ Home Management,Taping, Therapeutic Activities, Therapeutic Exercises Modalities Cold Pack/Ice Massage,Hot Packs Next Visit Focus/Plan Next Note Type Treatment Note Next Visit Plan PT for functional strengthening, balance training, neur re-ed, mobility skills.
--- NOTE | 2020-05-28 11:45 | PT.OTN ---
Current Diagnoses Hemiplegia, unspecified affecting unspecified side (05/28/20) Difficulty in walking, not elsewhere classified (05/28/20) Weakness (05/28/20) History of falling (05/28/20) Physical Therapy Treatment Note PT-OP-A Visit Information Start: 05/28/19 08:11 Freq: Status: Active Protocol: Document 05/28/20 11:30 AW (Rec: 05/28/20 11:37 AW [id number]) Out-Patient Physical Therapy Visit Information Visit Information Visit Type Treatment Note Visit Note Pt showed up early today and was amenable to switching therapists so she would not have to wait. Visit Start Time 10:40 Visit Stop Time 11:25 Total Visit Minutes 45 Visit Number 54 Number of INGOT WEIGHER Visits 0 PT-OP-B Current Condition Start: 05/28/19 08:11 Freq: Status: Active Protocol: Document 10/31/19 11:15 SAK (Rec: 10/31/19 11:57 SAK [id number]) Current Condition History of Current Condition Onset Date 2014 Current Complaints weakness, requires assistance with all mobility and household tasks History of Current Condition Reports that she suffered a stroke in 2014 after surgery for brain aneurysm. CVA caused weakness on the left side of her body, gait and balance difficulty, seizures. Treatment Goals Patient/Caregiver Goals Improve strength, get faster with walking including on stairs, improve balance. PT-OP-C Subjective Start: 05/28/19 08:11 Freq: Status: Active Protocol: Document 05/28/20 11:30 AW (Rec: 05/28/20 11:37 AW [id number]) OP-PT Subjective Patient Comments Patient Comments Pt arrives with tighter shoes to work without brace today. Caregiver present with all supplies. PT-OP-D Balance Start: 05/28/19 08:11 Freq: Status: Active Protocol: Document 05/29/19 14:30 SAK (Rec: 05/30/19 14:24 SAK [id number]) OP-PT Balance Assessment Sitting Balance Static Sitting Balance Ability Good Dynamic Sitting Balance Ability Fair Standing Balance Static Standing Balance Ability Good Dynamic Standing Balance Ability Fair Device Used [facility] right Tinetti Balance Assessment Sitting Balance Sitting Balance Steady, safe Arising from Chair Attempts to Arise Able, requires >1 attempt Standing Balance Immediate Standing Balance Steady with support Standing Balance Steady, wide stance Nudged Response Begins to fall Standing with Eyes Closed Unsteady Turning Step Pattern Turning 360 Degrees Discontinuous steps Stability Turning 360 Degrees Unsteady, grabs/staggers Sitting Down Sitting Down Uses arms or unsteady Gait and Step Initiation of Gait Hesitancy, mult. attempts Right Foot Step Length Does not pass stance ft. Right Foot Step Height Does not clear floor Left Foot Step Length Does not pass stance foot Left Foot Step Height Does not clear floor Step Description Step Symmetry Step length not equal Gait Description Path Description Mild/moderate deviation Trunk Description Marked sway or uses aide Walking Stance Heels apart Scoring and Interpretation Tinetti Composite Score (points) 6 Interpretation of Scores High risk for falls(< 19) Herrera Fall Scale Copyright Permission PT-OP-E Functional Tests Start: 05/28/19 08:11 Freq: Status: Active Protocol: Document 05/26/20 11:15 SAK (Rec: 05/26/20 17:04 [facility] [id number]) Functional Tests 2 Minute Walk Test Distance 39 ft Device Used single point cane Comments derotation application of level 4 theraband to decrease excess ER right LE PT-OP-G Mobility & Gait Start: 05/28/19 08:11 Freq: Status: Active Protocol: Document 05/26/20 11:15 SAK (Rec: 05/26/20 17:04 [facility] [id number]) OP Mobility Evaluation Bed Mobility Rolling min assist to right CGA to left Supine to and from Sit min assist to right CGA to left Transfers Sit to Stand CGA to min assist without UE use Bed to Chair Transfers requires use of right UE but able to do with SBA Floor Transfers unable PT-OP-H Neuro Start: 05/28/19 08:11 Freq: Status: Active Protocol: Document 05/29/19 14:30 [facility] (Rec: 05/30/19 14:24 [facility] [id number]) Sensation Evaluation Gross Sensation Gross Sensation Left UE Impaired,Left LE Impaired Sensation Description Paresthesia,Numbness Coordination Evaluation Lower Extremity Tests Left Alternate Heel to Knee; Heel to Toe Test Moderate Impairment Heel on Boles Test Moderate Impairment Foot Tapping Test Moderate Impairment PT-OP-K Range of Motion Start: 05/28/19 08:11 Freq: Status: Active Protocol: Document 05/26/20 11:15 SAK (Rec: 05/26/20 17:04 [facility] [id number]) Hip Goniometric Range of Motion Hip jake Hip ROM WFL Yes Comments actively right LE, passively left LE Knee Goniometric Range of Motion Knee jake Knee ROM WFL Yes Ankle and Foot Goniometric Range of Motion Ankle and Foot Left Passive Ankle/Foot ROM WFL No Left Active Ankle/Foot ROM WFL No PT-OP-M Strength Start: 05/28/19 08:11 Freq: Status: Active Protocol: Document 05/26/20 11:15 SAK (Rec: 05/26/20 17:04 SAK [id number]) Hip Strength Hip Manual Muscle Testing Left Flexion (L2) 3- Fair- Extension (S1) 2 Poor Abduction 2+ Poor+ External Rotation 3- Fair- Internal Rotation 3+ Fair+ Right Flexion (L2) 4 Good Extension (S1) 4- Good- Abduction 4 Good External Rotation 3+ Fair+ Internal Rotation 4- Good- PT-OP-Q Treatments Start: 05/28/19 08:11 Freq: Status: Active Protocol: Document 05/28/20 11:30 AW (Rec: 05/28/20 11:43 AW [id number]) Therapeutic Exercises Standing Exercises weight-shifting Standing Exercise Name side to side Equipment Used no AFO Reps/Minutes 2 Comments mirror for visual feedback minisquats Standing Exercise Name squats Reps/Minutes 10x Comments no AFO; mirror for visual feedback f/b/side stepping Standing Exercise Name f/b/side stepping Equipment Used //bar; no AFO Reps/Minutes 10 ft x1 laps each direction Comments // bar for support sit to stands Equipment Used no AFO Reps/Minutes 5x Comments manual cues for left LE alignment and L quad activation Gait Training Gait Activity pre-gait weight shifts Description AP, side to side Device Used no AFO; bar at right or left Level of Assistance CG to min assist, verbal and manual cues Surface firm Treatment Focus increased weight bearing left LE Comments with mirror to focus on inc L WB; preparation phase with midline alignment followed by weight shifts 1 Description level surface (Blue TB spiral wrap) Device Used single point cane Level of Assistance close SBA Surface level floor, firm Distance/Duration 100' Treatment Focus L hip IR and decrease L knee hyperextension, pacing Comments 1.L4 TB tied at left shoe, wrapped around clockwise LE and tied to gait belt assist with internal rotation foot/ hip facilitation cues for forward trunk positioning to allow LLE proper alignment. 2.protraction of left hip with gait Did not use metronome this visit. Neuro Re-Education Treatment Balance Activities rhythmic stabilization Details standing Surface firm Equipment no AFO Reps/Duration 5 min Comments pressure at hips all directions, slow directional changes PT-OP-R Modalities Start: 05/28/19 08:11 Freq: Status: Active Protocol: Document 03/19/20 10:31 SAK (Rec: 03/19/20 11:17 SAK [id number]) Electric Stimulation Electric Stimulation Functional Electric Stimulation Body Location left anterior tib Duration (Minutes) 10 Intensity 52 Contraction Type Normal Cycle 02/15 Ramp 2.0 Patient Position Sitting Comments Finnish stim PT-OP-S Aquatic Treatment Start: 05/28/19 08:11 Freq: Status: Active Protocol: Document 07/13/19 10:15 LJ (Rec: 07/13/19 15:03 LJ [id number]) Aquatics Treatment Pool Entry/Exit Pool Entry/Exit Method Lift Assistance Minimal Assistance Water Walking Marching Water Level Chest Level Walking Equipment Ankle Weight- 2.5#, sm float on LUE, sm [place] float Level of Assistance Contact Guard Assistance, Minimal Assistance,Verbal Cues Sideways Water Level Chest Level Walking Equipment Ankle Weight- 2.5#, sm float on LUE Level of Assistance Contact Guard Assistance, Minimal Assistance,Verbal Cues Forwards Water Level Chest Level Walking Equipment Ankle Weight- 2.5#, sm float on LUE Level of Assistance Contact Guard Assistance, Minimal Assistance,Verbal Cues Lower Extremity Exercises pushing off wall with uni and bilateral LEs Details supine with feet against wall Body Position Supine Equipment neck and hip floats Reps/Duration 10 bilateral and 10 LLE Comments stabilizing at left knee to prevent lateral rotation left hip flex/ext Details standing on box with right foot Body Position Standing Water Level Waist Level Equipment Ankle Weight- 2.5# Reps/Duration 10 Comments manual assist for maintaining knee extension weight shifting staggard stance Details HH on wall Body Position Standing Water Level Waist Level Equipment Ankle Weight- 2.5#, sm float on LUE Comments assist with bracing left knee SLS LLE Details HH on wall Body Position Standing Water Level Waist Level Equipment Ankle Weight- 2.5#, sm float on LUE Reps/Duration 0x45-93 sec Comments assist with bracing LLE, weight [id number] Details at wall Body Position Standing Water Level Waist Level Equipment Ankle Weight- 2.5#, sm float on LUE Comments assist with bracing left knee Upper Extremity Exercises pull downs Details standing at wall Water Level Chest Level Equipment BBs Reps/Duration 10 Comments assist with LUE HABD/HADD with long BB Body Position Standing Water Level Chest Level Reps/Duration 12x Comments assist with left hand on BB push pull Details back against wall Body Position Standing Water Level Waist Level Equipment lg BB Reps/Duration 10x Spinal Exercises Bad Ragaz Details trunk stabilization Body Position Supine Equipment Neck Float, hip float, arm float, LE floats Reps/Duration 2 min Manual Techniques Bad Ragaz hip ab/ad with manual resistance supine PT-OP-T Assessment and Plan Start: 05/28/19 08:11 Freq: Status: Active Protocol: Document 05/28/20 11:30 AW (Rec: 05/28/20 11:37 AW [id number]) Physical Therapy Assessment Goals Five Impairment gait speed not adequate for safe community ambulation Biology Lecturer Goal (LTG) Patient able to ambulate 300' in 6 min LTG Duration 08/24/20 Four Impairment requires assistance with bed mobility and transfers Short Term Goal (STG) Patient will be able to perform all bed mobility independently to improve her functional independence. 10/31/19: good goal progress STG Duration goal met Biology Lecturer Goal (LTG) Patient will be able to perform a floor transfer with SB to min assist 10/31/19: max assist today 01/02/20: has not been willing to try since 10/31/19 LTG Duration 08/24/20 Three Impairment weakness left UE and LE s/p CVA Detention Goal (LTG) Improve functional strength in left LE, as evidenced by ability to move from sit > < stand without use of UE's. 10/31/19: OT starts tomorrow. Good progress with sit to stand, though mostly using right UE and LE 01/02/20: Improving ability to perform, able to increase weight-bearing through left LE with cues, but still some use of right UE 05/26/20: With manual and visual feedback patient able to transfer sit to stand with only CG A. LTG Duration 08/24/20 Two Impairment balance dysfunction with high risk for falls Detention Goal (LTG) Improve balance as evidenced by improvement in Tinnetti balance and gait score to low fall risk range to improve safety in the home and community. 10/31/19: remains high risk for falls 01/02/20: some improvement but still in high risk category 05/26/20: Tinetti score in high risk category LTG Duration 08/24/20 One Impairment requires armaan-walker for gait, limited to household gait Detention Goal (LTG) Patient able to ambulate with least restrictive device for functional community distances to improve her functional independence and quality of life. 10/30/19: no progress due to Covid 19. 11/02/19: able to ambulate with quad cane but with very slow speed, household distances, very short community distances . 05/26/20: Now able to ambulate with use of single point cane and use of L4 theraband wrapped around left LE to facilitate left LE internal rotation for improved alignment. Patient unable to don the theraband on her own. Gait is for short distances and very slow at 39 ft in 2 min. LTG Duration 08/24/20 Assessment Summary Assessment Brittany participated today with tighter shoes/no inserts to focus on weightbearing, weight shifting, and ambulation without ankle brace . Continued to use lvl 4 TB for derotation LLE. Hyperextension LLE produces pain and limits tolerance but manual facilitation of knee flexion in standing and during sit to stand was helpful. Physical Therapy Plan Frequency and Duration Frequency of Treatment 2x/Week Duration of Treatment 12 wks Plan of Care Start Date 05/26/20 Plan of Care End Date 08/24/20 Therapeutic Interventions Therapeutic Interventions Aquatic Therapy,Balance Training,Gait Training,Home Exercise Program,Neuromuscular Re-education,Orthotic/ Prosthetic Management,Patient/ Caregiver Education,Self-Care/ Home Management,Taping, Therapeutic Activities, Therapeutic Exercises Modalities Cold Pack/Ice Massage,Hot Packs Next Visit Focus/Plan Next Note Type Treatment Note Next Visit Plan PT for functional strengthening, balance training, neur re-ed, mobility skills. Re-introduce metronome
--- NOTE | 2020-06-02 12:19 | PT.OTN ---
Current Diagnoses Hemiplegia, unspecified affecting unspecified side (06/02/20) Difficulty in walking, not elsewhere classified (06/02/20) Weakness (06/02/20) History of falling (06/02/20) Physical Therapy Treatment Note PT-OP-A Visit Information Start: 05/28/19 08:11 Freq: Status: Active Protocol: Document 06/02/20 11:13 SAK (Rec: 06/02/20 12:04 SAK [id number]) Out-Patient Physical Therapy Visit Information Visit Information Visit Type Treatment Note Visit Start Time 11:15 Visit Stop Time 12:10 Total Visit Minutes 55 Visit Number 55 PT-OP-B Current Condition Start: 05/28/19 08:11 Freq: Status: Active Protocol: Document 10/31/19 11:15 SAK (Rec: 10/31/19 11:57 SAK [id number]) Current Condition History of Current Condition Onset Date 2014 Current Complaints weakness, requires assistance with all mobility and household tasks History of Current Condition Reports that she suffered a stroke in 2014 after surgery for brain aneurysm. CVA caused weakness on the left side of her body, gait and balance difficulty, seizures. Treatment Goals Patient/Caregiver Goals Improve strength, get faster with walking including on stairs, improve balance. PT-OP-C Subjective Start: 05/28/19 08:11 Freq: Status: Active Protocol: Document 06/02/20 11:13 SAK (Rec: 06/02/20 12:04 SAK [id number]) OP-PT Subjective Patient Comments Patient Comments Patient reports spent 1 hour on her feet at [facility] over weekend, reports left knee was sore and swollen. Very fatigued today, doesn't think she'll do well on 6 min walk test. PT-OP-D Balance Start: 05/28/19 08:11 Freq: Status: Active Protocol: Document 05/29/19 14:30 SAK (Rec: 05/30/19 14:24 SAK [id number]) OP-PT Balance Assessment Sitting Balance Static Sitting Balance Ability Good Dynamic Sitting Balance Ability Fair Standing Balance Static Standing Balance Ability Good Dynamic Standing Balance Ability Fair Device [facility] right Tinetti Balance Assessment Sitting Balance Sitting Balance Steady, safe Arising from Chair Attempts to Arise Able, requires >1 attempt Standing Balance Immediate Standing Balance Steady with support Standing Balance Steady, wide stance Nudged Response Begins to fall Standing with Eyes Closed Unsteady Turning Step Pattern Turning 360 Degrees Discontinuous steps Stability Turning 360 Degrees Unsteady, grabs/staggers Sitting Down Sitting Down Uses arms or unsteady Gait and Step Initiation of Gait Hesitancy, mult. attempts Right Foot Step Length Does not pass stance ft. Right Foot Step Height Does not clear floor Left Foot Step Length Does not pass stance foot Left Foot Step Height Does not clear floor Step Description Step Symmetry Step length not equal Gait Description Path Description Mild/moderate deviation Trunk Description Marked sway or uses aide Walking Stance Heels apart Scoring and Interpretation Tinetti Composite Score (points) 6 Interpretation of Scores High risk for falls(< 19) Herrera Fall Scale Copyright Permission PT-OP-E Functional Tests Start: 05/28/19 08:11 Freq: Status: Active Protocol: Document 05/26/20 11:15 SAK (Rec: 05/26/20 17:04 [facility] [id number]) Functional Tests 2 Minute Walk Test Distance 39 ft Device Used single point cane Comments derotation application of level 4 theraband to decrease excess ER right LE PT-OP-G Mobility & Gait Start: 05/28/19 08:11 Freq: Status: Active Protocol: Document 05/26/20 11:15 SAK (Rec: 05/26/20 17:04 [facility] [id number]) OP Mobility Evaluation Bed Mobility Rolling min assist to right CGA to left Supine to and from Sit min assist to right CGA to left Transfers Sit to Stand CGA to min assist without UE use Bed to Chair Transfers requires use of right UE but able to do with SBA Floor Transfers unable PT-OP-H Neuro Start: 05/28/19 08:11 Freq: Status: Active Protocol: Document 05/29/19 14:30 [facility] (Rec: 05/30/19 14:24 [facility] [id number]) Sensation Evaluation Gross Sensation Gross Sensation Left UE Impaired,Left LE Impaired Sensation Description Paresthesia,Numbness Coordination Evaluation Lower Extremity Tests Left Alternate Heel to Knee; Heel to Toe Test Moderate Impairment Heel on Boles Test Moderate Impairment Foot Tapping Test Moderate Impairment PT-OP-K Range of Motion Start: 05/28/19 08:11 Freq: Status: Active Protocol: Document 05/26/20 11:15 SAK (Rec: 05/26/20 17:04 [facility] [id number]) Hip Goniometric Range of Motion Hip jake Hip ROM WFL Yes Comments actively right LE, passively left LE Knee Goniometric Range of Motion Knee jake Knee ROM WFL Yes Ankle and Foot Goniometric Range of Motion Ankle and Foot Left Passive Ankle/Foot ROM WFL No Left Active Ankle/Foot ROM WFL No PT-OP-M Strength Start: 05/28/19 08:11 Freq: Status: Active Protocol: Document 05/26/20 11:15 [facility] (Rec: 05/26/20 17:04 [facility] [id number]) Hip Strength Hip Manual Muscle Testing Left Flexion (L2) 3- Fair- Extension (S1) 2 Poor Abduction 2+ Poor+ External Rotation 3- Fair- Internal Rotation 3+ Fair+ Right Flexion (L2) 4 Good Extension (S1) 4- Good- Abduction 4 Good External Rotation 3+ Fair+ Internal Rotation 4- Good- PT-OP-Q Treatments Start: 05/28/19 08:11 Freq: Status: Active Protocol: Document 06/02/20 11:13 [facility] (Rec: 06/02/20 12:19 [facility] [id number]) Therapeutic Exercises Standing Exercises minisquats Standing Exercise Name squats incl w/ right foot on green foam to facil increased weight-bearing L Reps/Minutes 10x Comments no AFO; mirror for visual feedback sit to stands Standing Exercise Name including with right foot on green foam to facil increased weight-bearing L Equipment Used no AFO Reps/Minutes 5x Comments manual cues for left LE alignment and L quad activation Gait Training Gait Activity pre-gait weight shifts Description AP, side to side Device Used no AFO; bar at right or left Level of Assistance CG to min assist, verbal and manual cues Surface firm Treatment Focus increased weight bearing left LE Comments with mirror to focus on inc L WB; preparation phase with midline alignment followed by weight shifts stair mgt Comments next session, hallway stairs PT-OP-R Modalities Start: 05/28/19 08:11 Freq: Status: Active Protocol: Document 03/19/20 10:31 [facility] (Rec: 03/19/20 11:17 [facility] [id number]) Electric Stimulation Electric Stimulation Functional Electric Stimulation Body Location left anterior tib Duration (Minutes) 10 Intensity 52 Contraction Type Normal Cycle 10/10 Ramp 2.0 Patient Position Sitting Comments [place] stim PT-OP-S Aquatic Treatment Start: 05/28/19 08:11 Freq: Status: Active Protocol: Document 07/13/19 10:15 NILAY (Rec: 07/13/19 15:03 NILAY [id number]) Aquatics Treatment Pool Entry/Exit Pool Entry/Exit Method Lift Assistance Minimal Assistance Water Walking Marching Water Level Chest Level Walking Equipment Ankle Weight- 2.5#, sm float on LUE, sm [place] float Level of Assistance Contact Guard Assistance, Minimal Assistance,Verbal Cues Sideways Water Level Chest Level Walking Equipment Ankle Weight- 2.5#, sm float on LUE Level of Assistance Contact Guard Assistance, Minimal Assistance,Verbal Cues Forwards Water Level Chest Level Walking Equipment Ankle Weight- 2.5#, sm float on LUE Level of Assistance Contact Guard Assistance, Minimal Assistance,Verbal Cues Lower Extremity Exercises pushing off wall with uni and bilateral LEs Details supine with feet against wall Body Position Supine Equipment neck and hip floats Reps/Duration 10 bilateral and 10 LLE Comments stabilizing at left knee to prevent lateral rotation left hip flex/ext Details standing on box with right foot Body Position Standing Water Level Waist Level Equipment Ankle Weight- 2.5# Reps/Duration 10 Comments manual assist for maintaining knee extension weight shifting staggard stance Details HH on wall Body Position Standing Water Level Waist Level Equipment Ankle Weight- 2.5#, sm float on LUE Comments assist with bracing left knee SLS LLE Details HH on wall Body Position Standing Water Level Waist Level Equipment Ankle Weight- 2.5#, sm float on LUE Reps/Duration [id number] sec Comments assist with bracing LLE, weight [id number] Details at wall Body Position Standing Water Level Waist Level Equipment Ankle Weight- 2.5#, sm float on LUE Comments assist with bracing left knee Upper Extremity Exercises pull downs Details standing at wall Water Level Chest Level Equipment BBs Reps/Duration 10 Comments assist with LUE HABD/HADD with long BB Body Position Standing Water Level Chest Level Reps/Duration 12x Comments assist with left hand on BB push pull Details back against wall Body Position Standing Water Level Waist Level Equipment lg BB Reps/Duration 10x Spinal Exercises Bad Ragaz Details trunk stabilization Body Position Supine Equipment Neck Float, hip float, arm float, LE floats Reps/Duration 2 min Manual Techniques Bad Ragaz hip ab/ad with manual resistance supine PT-OP-T Assessment and Plan Start: 05/28/19 08:11 Freq: Status: Active Protocol: Document 06/02/20 11:13 KRYSTAL (Rec: 06/02/20 12:04 KRYSTAL [id number]) Physical Therapy Assessment Goals Five Impairment gait speed not adequate for safe community ambulation Group Home Goal (LTG) Patient able to ambulate 300' in 6 min 06/02/20: 134' LTG Duration 08/24/20 Four Impairment requires assistance with bed mobility and transfers Short Term Goal (STG) Patient will be able to perform all bed mobility independently to improve her functional independence. 10/31/19: good goal progress 06/02/20: STG Duration goal met Support Specialist Goal (LTG) Patient will be able to perform a floor transfer with SB to min assist 10/31/19: max assist today 01/02/20: has not been willing to try since 10/31/19 06/02/20: does not feel strong enough to try yet. LTG Duration 08/24/20 Three Impairment weakness left UE and LE s/p CVA Support Specialist Goal (LTG) Improve functional strength in left LE, as evidenced by ability to move from sit > < stand without use of UE's. 10/31/19: OT starts tomorrow. Good progress with sit to stand, though mostly using right UE and LE 01/02/20: Improving ability to perform, able to increase weight-bearing through left LE with cues, but still some use of right UE 05/26/20: With manual and visual feedback patient able to transfer sit to stand with only CG A. LTG Duration 08/24/20 Two Impairment balance dysfunction with high risk for falls Support Specialist Goal (LTG) Improve balance as evidenced by improvement in Tinnetti balance and gait score to low fall risk range to improve safety in the home and community. 10/31/19: remains high risk for falls 01/02/20: some improvement but still in high risk category 05/26/20: Tinetti score in high risk category LTG Duration 08/24/20 One Impairment requires armaan-walker for gait, limited to household gait Support Specialist Goal (LTG) Patient able to ambulate with least restrictive device for functional community distances to improve her functional independence and quality of life. 10/30/19: no progress due to Covid 19. 11/02/19: able to ambulate with quad cane but with very slow speed, household distances, very short community distances . 05/26/20: Now able to ambulate with use of single point cane and use of L4 theraband wrapped around left LE to facilitate left LE internal rotation for improved alignment. Patient unable to don the theraband on her own. Gait is for short distances and very slow at 39 ft in 2 min. LTG Duration 08/24/20 Assessment Summary Assessment Patient more willing to push herself with increased weight on left LE with sit to stand transfers, even though very fearful. She is in need of new shoes, and forgot to bring alternate pair of shoes for working without AFO. She was able to observe improved medial/lateral knee control in stance while doing pre-gait activities with mirror for visual feedback. Physical Therapy Plan Frequency and Duration Frequency of Treatment 2x/Week Duration of Treatment 12 wks Plan of Care Start Date 05/26/20 Plan of Care End Date 08/24/20 Therapeutic Interventions Therapeutic Interventions Aquatic Therapy,Balance Training,Gait Training,Home Exercise Program,Neuromuscular Re-education,Orthotic/ Prosthetic Management,Patient/ Caregiver Education,Self-Care/ Home Management,Taping, Therapeutic Activities, Therapeutic Exercises Modalities Cold Pack/Ice Massage,Hot Packs Next Visit Focus/Plan Next Note Type Treatment Note Next Visit Plan PT for functional strengthening, balance training, neur re-ed, mobility skills. Metronome for gait training.
--- NOTE | 2020-06-05 16:34 | PT.OTN ---
Current Diagnoses Hemiplegia, unspecified affecting unspecified side (06/04/20) Difficulty in walking, not elsewhere classified (06/04/20) Weakness (06/04/20) History of falling (06/04/20) Physical Therapy Treatment Note PT-OP-A Visit Information Start: 05/28/19 08:11 Freq: Status: Active Protocol: Document 06/04/20 11:15 [facility]AK (Rec: 06/05/20 16:34 SAK [id number]) Out-Patient Physical Therapy Visit Information Visit Information Visit Type Treatment Note Visit Start Time 11:15 Visit Stop Time 12:10 Total Visit Minutes 55 Visit Number 55 PT-OP-B Current Condition Start: 05/28/19 08:11 Freq: Status: Active Protocol: Document 06/04/20 11:15 SAK (Rec: 06/05/20 16:34 SAK [id number]) Current Condition History of Current Condition Onset Date 2014 Current Complaints weakness, requires assistance with all mobility and household tasks History of Current Condition Reports that she suffered a stroke in 2014 after surgery for brain aneurysm. CVA caused weakness on the left side of her body, gait and balance difficulty, seizures. PT-OP-C Subjective Start: 05/28/19 08:11 Freq: Status: Active Protocol: Document 06/04/20 11:15 SAK (Rec: 06/05/20 16:34 SAK [id number]) OP-PT Subjective Patient Comments Patient Comments Reports very sore and tired after PT 2 days ago, not sure how much she will be able to do today. PT-OP-D Balance Start: 05/28/19 08:11 Freq: Status: Active Protocol: Document 05/29/19 14:30 SAK (Rec: 05/30/19 14:24 SAK [id number]) OP-PT Balance Assessment Sitting Balance Static Sitting Balance Ability Good Dynamic Sitting Balance Ability Fair Standing Balance Static Standing Balance Ability Good Dynamic Standing Balance Ability Fair Device Used hemiwalker right Tinetti Balance Assessment Sitting Balance Sitting Balance Steady, safe Arising from Chair Attempts to Arise Able, requires >1 attempt Standing Balance Immediate Standing Balance Steady with support Standing Balance Steady, wide stance Nudged Response Begins to fall Standing with Eyes Closed Unsteady Turning Step Pattern Turning 360 Degrees Discontinuous steps Stability Turning 360 Degrees Unsteady, grabs/staggers Sitting Down Sitting Down Uses arms or unsteady Gait and Step Initiation of Gait Hesitancy, mult. attempts Right Foot Step Length Does not pass stance ft. Right Foot Step Height Does not clear floor Left Foot Step Length Does not pass stance foot Left Foot Step Height Does not clear floor Step Description Step Symmetry Step length not equal Gait Description Path Description Mild/moderate deviation Trunk Description Marked sway or uses aide Walking Stance Heels apart Scoring and Interpretation Tinetti Composite Score (points) 6 Interpretation of Scores High risk for falls(< 19) Herrera Fall Scale Copyright Permission PT-OP-E Functional Tests Start: 05/28/19 08:11 Freq: Status: Active Protocol: Document 05/26/20 11:15 [facility] (Rec: 05/26/20 17:04 [facility] [id number]) Functional Tests 2 Minute Walk Test Distance 39 ft Device Used single point cane Comments derotation application of level 4 theraband to decrease excess ER right LE PT-OP-G Mobility & Gait Start: 05/28/19 08:11 Freq: Status: Active Protocol: Document 05/26/20 11:15 [facility] (Rec: 05/26/20 17:04 [facility] [id number]) OP Mobility Evaluation Bed Mobility Rolling min assist to right CGA to left Supine to and from Sit min assist to right CGA to left Transfers Sit to Stand CGA to min assist without UE use Bed to Chair Transfers requires use of right UE but able to do with SBA Floor Transfers unable PT-OP-H Neuro Start: 05/28/19 08:11 Freq: Status: Active Protocol: Document 05/29/19 14:30 [facility] (Rec: 05/30/19 14:24 [facility] [id number]) Sensation Evaluation Gross Sensation Gross Sensation Left UE Impaired,Left LE Impaired Sensation Description Paresthesia,Numbness Coordination Evaluation Lower Extremity Tests Left Alternate Heel to Knee; Heel to Toe Test Moderate Impairment Heel on Boles Test Moderate Impairment Foot Tapping Test Moderate Impairment PT-OP-K Range of Motion Start: 05/28/19 08:11 Freq: Status: Active Protocol: Document 05/26/20 11:15 [facility] (Rec: 05/26/20 17:04 [facility] [id number]) Hip Goniometric Range of Motion Hip jake Hip ROM WFL Yes Comments actively right LE, passively left LE Knee Goniometric Range of Motion Knee jake Knee ROM WFL Yes Ankle and Foot Goniometric Range of Motion Ankle and Foot Left Passive Ankle/Foot ROM WFL No Left Active Ankle/Foot ROM WFL No PT-OP-M Strength Start: 05/28/19 08:11 Freq: Status: Active Protocol: Document 05/26/20 11:15 [facility] (Rec: 05/26/20 17:04 [facility] [id number]) Hip Strength Hip Manual Muscle Testing Left Flexion (L2) 3- Fair- Extension (S1) 2 Poor Abduction 2+ Poor+ External Rotation 3- Fair- Internal Rotation 3+ Fair+ Right Flexion (L2) 4 Good Extension (S1) 4- Good- Abduction 4 Good External Rotation 3+ Fair+ Internal Rotation 4- Good- PT-OP-Q Treatments Start: 05/28/19 08:11 Freq: Status: Active Protocol: Document 06/04/20 11:15 [facility] (Rec: 06/05/20 16:34 [facility] [id number]) Cardio Equipment Recumbent Stepper (Sci-Fit) Duration (Minutes) 10 Resistance 1 Other no AFO, cues for left LE alignment, .65 miles Therapeutic Exercises Sitting Exercises HC stretch Side left Reps/Minutes 2x 30 Comments manual Standing Exercises weight-shifting Standing Exercise Name side to side Equipment Used no AFO Reps/Minutes 2 Comments mirror for visual feedback sit to stands Standing Exercise Name including with right foot on green foam to facil increased weight-bearing L Equipment Used no AFO Reps/Minutes 5x Comments manual cues for left LE alignment and L quad activation Gait Training Gait Activity pre-gait weight shifts Description AP, side to side Device Used no AFO; bar at right or left Level of Assistance CG to min assist, verbal and manual cues Surface firm Treatment Focus increased weight bearing left LE Comments with mirror to focus on inc L WB; preparation phase with midline alignment followed by weight shifts 1 Description level surface (Blue TB spiral wrap) Device Used single point cane Level of Assistance close SBA Surface level floor, firm Distance/Duration 75' Treatment Focus L hip IR and decrease L knee hyperextension, pacing Comments 1.L4 TB tied at left shoe, wrapped around clockwise LE and tied to gait belt assist with internal rotation foot/ hip facilitation cues for forward trunk positioning to allow LLE proper alignment. 2.protraction of left hip with gait Did not use metronome this visit. stair mgt Comments no stairs done today due to fatigue and soreness, patient request PT-OP-R Modalities Start: 05/28/19 08:11 Freq: Status: Active Protocol: Document 03/19/20 10:31 [facility]AK (Rec: 03/19/20 11:17 SAK [id number]) Electric Stimulation Electric Stimulation Functional Electric Stimulation Body Location left anterior tib Duration (Minutes) 10 Intensity 52 Contraction Type Normal Cycle 10/10 Ramp 2.0 Patient Position Sitting Comments [place] stim PT-OP-T Assessment and Plan Start: 05/28/19 08:11 Freq: Status: Active Protocol: Document 06/04/20 11:15 [facility] (Rec: 06/05/20 16:34 [facility] [id number]) Physical Therapy Assessment Goals Five Impairment gait speed not adequate for safe community ambulation Correction Goal (LTG) Patient able to ambulate 300' in 6 min 06/02/20: 134' LTG Duration 08/24/20 Four Impairment requires assistance with bed mobility and transfers Short Term Goal (STG) Patient will be able to perform all bed mobility independently to improve her functional independence. 10/31/19: good goal progress 06/02/20: STG Duration goal met Correction Goal (LTG) Patient will be able to perform a floor transfer with SB to min assist 10/31/19: max assist today 01/02/20: has not been willing to try since 10/31/19 06/02/20: does not feel strong enough to try yet. LTG Duration 08/24/20 Three Impairment weakness left UE and LE s/p CVA Correction Goal (LTG) Improve functional strength in left LE, as evidenced by ability to move from sit > < stand without use of UE's. 10/31/19: OT starts tomorrow. Good progress with sit to stand, though mostly using right UE and LE 01/02/20: Improving ability to perform, able to increase weight-bearing through left LE with cues, but still some use of right UE 05/26/20: With manual and visual feedback patient able to transfer sit to stand with only CG A. LTG Duration 08/24/20 Two Impairment balance dysfunction with high risk for falls Correction Goal (LTG) Improve balance as evidenced by improvement in Tinnetti balance and gait score to low fall risk range to improve safety in the home and community. 10/31/19: remains high risk for falls 8/26/20: some improvement but still in high risk category 05/26/20: Tinetti score in high risk category LTG Duration 08/24/20 One Impairment requires armaan-walker for gait, limited to household gait Correction Goal (LTG) Patient able to ambulate with least restrictive device for functional community distances to improve her functional independence and quality of life. 10/30/19: no progress due to Covid 19. 11/02/19: able to ambulate with quad cane but with very slow speed, household distances, very short community distances . 05/26/20: Now able to ambulate with use of single point cane and use of L4 theraband wrapped around left LE to facilitate left LE internal rotation for improved alignment. Patient unable to don the theraband on her own. Gait is for short distances and very slow at 39 ft in 2 min. LTG Duration 08/24/20 Assessment Summary Assessment Patient had difficulty and became easily frustrated with SciFit due to difficulty keeping left LE in neutral without constant attention. Needed more rest due to fatigue and soreness but wants to focus on functional standing exercises. Physical Therapy Plan Frequency and Duration Frequency of Treatment 2x/Week Duration of Treatment 12 wks Plan of Care Start Date 05/26/20 Plan of Care End Date 08/24/20 Therapeutic Interventions Therapeutic Interventions Aquatic Therapy,Balance Training,Gait Training,Home Exercise Program,Neuromuscular Re-education,Orthotic/ Prosthetic Management,Patient/ Caregiver Education,Self-Care/ Home Management,Taping, Therapeutic Activities, Therapeutic Exercises Modalities Cold Pack/Ice Massage,Hot Packs Next Visit Focus/Plan Next Note Type Treatment Note Next Visit Plan Metronome for gait training, shuttle leg press, especially single leg on left . Hallway stairs.
--- NOTE | 2020-06-11 16:20 | PT.OTN ---
Current Diagnoses Hemiplegia, unspecified affecting unspecified side (06/11/20) Difficulty in walking, not elsewhere classified (06/11/20) Weakness (06/11/20) History of falling (06/11/20) Physical Therapy Treatment Note PT-OP-A Visit Information Start: 05/28/19 08:11 Freq: Status: Active Protocol: Document 06/11/20 10:38 [facility]AK (Rec: 06/11/20 11:17 SAK [id number]) Out-Patient Physical Therapy Visit Information Visit Information Visit Type Treatment Note Visit Start Time 10:35 Visit Number 57 PT-OP-B Current Condition Start: 05/28/19 08:11 Freq: Status: Active Protocol: Document 06/04/20 11:15 [facility]AK (Rec: 06/05/20 16:34 SAK [id number]) Current Condition History of Current Condition Onset Date 2014 Current Complaints weakness, requires assistance with all mobility and household tasks History of Current Condition Reports that she suffered a stroke in 2014 after surgery for brain aneurysm. CVA caused weakness on the left side of her body, gait and balance difficulty, seizures. PT-OP-C Subjective Start: 05/28/19 08:11 Freq: Status: Active Protocol: Document 06/11/20 10:38 [facility]AK (Rec: 06/11/20 11:17 SAK [id number]) OP-PT Subjective Patient Comments Patient Comments States she has been working a lot in standing without brace , and feels she is shifting her weight more equally now PT-OP-D Balance Start: 05/28/19 08:11 Freq: Status: Active Protocol: Document 05/29/19 14:30 [facility]AK (Rec: 05/30/19 14:24 SAK [id number]) OP-PT Balance Assessment Sitting Balance Static Sitting Balance Ability Good Dynamic Sitting Balance Ability Fair Standing Balance Static Standing Balance Ability Good Dynamic Standing Balance Ability Fair Device Used hemiwalker right Tinetti Balance Assessment Sitting Balance Sitting Balance Steady, safe Arising from Chair Attempts to Arise Able, requires >1 attempt Standing Balance Immediate Standing Balance Steady with support Standing Balance Steady, wide stance Nudged Response Begins to fall Standing with Eyes Closed Unsteady Turning Step Pattern Turning 360 Degrees Discontinuous steps Stability Turning 360 Degrees Unsteady, grabs/staggers Sitting Down Sitting Down Uses arms or unsteady Gait and Step Initiation of Gait Hesitancy, mult. attempts Right Foot Step Length Does not pass stance ft. Right Foot Step Height Does not clear floor Left Foot Step Length Does not pass stance foot Left Foot Step Height Does not clear floor Step Description Step Symmetry Step length not equal Gait Description Path Description Mild/moderate deviation Trunk Description Marked sway or uses aide Walking Stance Heels apart Scoring and Interpretation Tinetti Composite Score (points) 6 Interpretation of Scores High risk for falls(< 19) Herrera Fall Scale Copyright Permission PT-OP-E Functional Tests Start: 05/28/19 08:11 Freq: Status: Active Protocol: Document 05/26/20 11:15 [facility] (Rec: 05/26/20 17:04 [facility] [id number]) Functional Tests 2 Minute Walk Test Distance 39 ft Device Used single point cane Comments derotation application of level 4 theraband to decrease excess ER right LE PT-OP-G Mobility & Gait Start: 05/28/19 08:11 Freq: Status: Active Protocol: Document 05/26/20 11:15 [facility]AK (Rec: 05/26/20 17:04 [facility] [id number]) OP Mobility Evaluation Bed Mobility Rolling min assist to right CGA to left Supine to and from Sit min assist to right CGA to left Transfers Sit to Stand CGA to min assist without UE use Bed to Chair Transfers requires use of right UE but able to do with SBA Floor Transfers unable PT-OP-H Neuro Start: 05/28/19 08:11 Freq: Status: Active Protocol: Document 05/29/19 14:30 [facility]AK (Rec: 05/30/19 14:24 [facility] [id number]) Sensation Evaluation Gross Sensation Gross Sensation Left UE Impaired,Left LE Impaired Sensation Description Paresthesia,Numbness Coordination Evaluation Lower Extremity Tests Left Alternate Heel to Knee; Heel to Toe Test Moderate Impairment Heel on Boles Test Moderate Impairment Foot Tapping Test Moderate Impairment PT-OP-K Range of Motion Start: 05/28/19 08:11 Freq: Status: Active Protocol: Document 05/26/20 11:15 [facility]AK (Rec: 05/26/20 17:04 [facility] [id number]) Hip Goniometric Range of Motion Hip jake Hip ROM WFL Yes Comments actively right LE, passively left LE Knee Goniometric Range of Motion Knee ajke Knee ROM WFL Yes Ankle and Foot Goniometric Range of Motion Ankle and Foot Left Passive Ankle/Foot ROM WFL No Left Active Ankle/Foot ROM WFL No PT-OP-M Strength Start: 05/28/19 08:11 Freq: Status: Active Protocol: Document 05/26/20 11:15 [facility] (Rec: 05/26/20 17:04 [facility] [id number]) Hip Strength Hip Manual Muscle Testing Left Flexion (L2) 3- Fair- Extension (S1) 2 Poor Abduction 2+ Poor+ External Rotation 3- Fair- Internal Rotation 3+ Fair+ Right Flexion (L2) 4 Good Extension (S1) 4- Good- Abduction 4 Good External Rotation 3+ Fair+ Internal Rotation 4- Good- PT-OP-Q Treatments Start: 05/28/19 08:11 Freq: Status: Active Protocol: Document 06/11/20 10:38 [facility] (Rec: 06/11/20 16:20 [facility] [id number]) Gait Training Gait Activity pre-gait weight shifts Description AP, side to side Device Used no AFO; bar at right or left Level of Assistance CG to min assist, verbal and manual cues Surface firm Treatment Focus increased weight bearing left LE Comments with mirror to focus on inc L WB; preparation phase with midline alignment followed by weight shifts 1 Description level surface (Blue TB spiral wrap) Device Used single point cane Level of Assistance close SBA Surface level floor, firm Distance/Duration 75' Treatment Focus L hip IR and decrease L knee hyperextension, pacing Comments 1.L4 TB tied at left shoe, wrapped around clockwise LE and tied to gait belt assist with internal rotation foot/ hip facilitation cues for forward trunk positioning to allow LLE proper alignment. 2.protraction of left hip with gait Did not use metronome this visit. stair mgt Description hallway stairs Device Used R HR Level of Assistance CG to min assist, cues for increased weight shift left, decreased use of Surface 4 stairs Distance/Duration 10 stairs Treatment Focus increased weight shift left, decreased use right UE Self-Care/Home Management Treatment Education Other Education education of caregiver Lena about correct application and alignment of gait belt and theraband to left LE PT-OP-R Modalities Start: 05/28/19 08:11 Freq: Status: Active Protocol: Document 03/19/20 10:31 [facility] (Rec: 03/19/20 11:17 [facility] [id number]) Electric Stimulation Electric Stimulation Functional Electric Stimulation Body Location left anterior tib Duration (Minutes) 10 Intensity 52 Contraction Type Normal Cycle 10/10 Ramp 2.0 Patient Position Sitting Comments [place]ag[place] rashmi PT-OP-T Assessment and Plan Start: 05/28/19 08:11 Freq: Status: Active Protocol: Document 06/11/20 10:38 [facility] (Rec: 06/11/20 16:20 [facility] [id number]) Physical Therapy Assessment Goals Five Impairment gait speed not adequate for safe community ambulation Builder Operator Goal (LTG) Patient able to ambulate 300' in 6 min 06/02/20: 134' LTG Duration 08/24/20 Four Impairment requires assistance with bed mobility and transfers Short Term Goal (STG) Patient will be able to perform all bed mobility independently to improve her functional independence. 10/31/19: good goal progress 06/02/20: STG Duration goal met Builder Operator Goal (LTG) Patient will be able to perform a floor transfer with SB to min assist 10/31/19: max assist today 01/02/20: has not been willing to try since 10/31/19 06/02/20: does not feel strong enough to try yet. LTG Duration 08/24/20 Three Impairment weakness left UE and LE s/p CVA Builder Operator Goal (LTG) Improve functional strength in left LE, as evidenced by ability to move from sit > < stand without use of UE's. 10/31/19: OT starts tomorrow. Good progress with sit to stand, though mostly using right UE and LE 01/02/20: Improving ability to perform, able to increase weight-bearing through left LE with cues, but still some use of right UE 05/26/20: With manual and visual feedback patient able to transfer sit to stand with only CG A. LTG Duration 08/24/20 Two Impairment balance dysfunction with high risk for falls Senior Care Goal (LTG) Improve balance as evidenced by improvement in Tinnetti balance and gait score to low fall risk range to improve safety in the home and community. 10/31/19: remains high risk for falls 01/02/20: some improvement but still in high risk category 05/26/20: Tinetti score in high risk category LTG Duration 08/24/20 One Impairment requires armaan-walker for gait, limited to household gait Senior Care Goal (LTG) Patient able to ambulate with least restrictive device for functional community distances to improve her functional independence and quality of life. 10/30/19: no progress due to Covid 19. 11/02/19: able to ambulate with quad cane but with very slow speed, household distances, very short community distances . 05/26/20: Now able to ambulate with use of single point cane and use of L4 theraband wrapped around left LE to facilitate left LE internal rotation for improved alignment. Patient unable to don the theraband on her own. Gait is for short distances and very slow at 39 ft in 2 min. LTG Duration 08/24/20 Assessment Summary Assessment Patient able to take 3 short steps in parallel bars without UE support. C/o fatigue and left LE soreness with PT but demonstrating improved weight shift to left and continues to benefit from use of theraband for assist with rotation al control left LE. Caregiver demonstrated improved undrestanding of correct application of gait belt and theraband for best rotational control and function. Patient has appointment with Dr. Valdez after PT. Physical Therapy Plan Frequency and Duration Frequency of Treatment 2x/Week Duration of Treatment 12 wks Plan of Care Start Date 05/26/20 Plan of Care End Date 08/24/20 Therapeutic Interventions Therapeutic Interventions Aquatic Therapy,Balance Training,Gait Training,Home Exercise Program,Neuromuscular Re-education,Orthotic/ Prosthetic Management,Patient/ Caregiver Education,Self-Care/ Home Management,Taping, Therapeutic Activities, Therapeutic Exercises Modalities Cold Pack/Ice Massage,Hot Packs Next Visit Focus/Plan Next Note Type Treatment Note Next Visit Plan Metronome for gait training, shuttle leg press, especially single leg on left . Continue stair training
--- NOTE | 2020-06-18 16:57 | PT.OTN ---
Current Diagnoses Hemiplegia, unspecified affecting unspecified side (06/18/20) Difficulty in walking, not elsewhere classified (06/18/20) Weakness (06/18/20) History of falling (06/18/20) Physical Therapy Treatment Note PT-OP-A Visit Information Start: 05/28/19 08:11 Freq: Status: Active Protocol: Document 06/18/20 16:49 SAK (Rec: 06/18/20 16:57 SAK [id number]) Out-Patient Physical Therapy Visit Information Visit Information Visit Type Treatment Note Visit Start Time 10:40 Visit Stop Time 11:25 Total Visit Minutes 57 Visit Number 45 PT-OP-B Current Condition Start: 05/28/19 08:11 Freq: Status: Active Protocol: Document 06/04/20 11:15 SAK (Rec: 06/05/20 16:34 SAK [id number]) Current Condition History of Current Condition Onset Date 2014 Current Complaints weakness, requires assistance with all mobility and household tasks History of Current Condition Reports that she suffered a stroke in 2014 after surgery for brain aneurysm. CVA caused weakness on the left side of her body, gait and balance difficulty, seizures. PT-OP-C Subjective Start: 05/28/19 08:11 Freq: Status: Active Protocol: Document 06/18/20 16:49 SAK (Rec: 06/18/20 16:57 SAK [id number]) OP-PT Subjective Patient Comments Patient Comments Patient reports she has been having a hard week, frustrated with progress, feeling bad about her body. Hasn't done as much exercise PT-OP-D Balance Start: 05/28/19 08:11 Freq: Status: Active Protocol: Document 05/29/19 14:30 SAK (Rec: 05/30/19 14:24 SAK [id number]) OP-PT Balance Assessment Sitting Balance Static Sitting Balance Ability Good Dynamic Sitting Balance Ability Fair Standing Balance Static Standing Balance Ability Good Dynamic Standing Balance Ability Fair Device Used hemiwalker right Tinetti Balance Assessment Sitting Balance Sitting Balance Steady, safe Arising from Chair Attempts to Arise Able, requires >1 attempt Standing Balance Immediate Standing Balance Steady with support Standing Balance Steady, wide stance Nudged Response Begins to fall Standing with Eyes Closed Unsteady Turning Step Pattern Turning 360 Degrees Discontinuous steps Stability Turning 360 Degrees Unsteady, grabs/staggers Sitting Down Sitting Down Uses arms or unsteady Gait and Step Initiation of Gait Hesitancy, mult. attempts Right Foot Step Length Does not pass stance ft. Right Foot Step Height Does not clear floor Left Foot Step Length Does not pass stance foot Left Foot Step Height Does not clear floor Step Description Step Symmetry Step length not equal Gait Description Path Description Mild/moderate deviation Trunk Description Marked sway or uses aide Walking Stance Heels apart Scoring and Interpretation Tinetti Composite Score (points) 6 Interpretation of Scores High risk for falls(< 19) Herrera Fall Scale Copyright Permission PT-OP-E Functional Tests Start: 05/28/19 08:11 Freq: Status: Active Protocol: Document 05/26/20 11:15 [facility] (Rec: 05/26/20 17:04 [facility] [id number]) Functional Tests 2 Minute Walk Test Distance 39 ft Device Used single point cane Comments derotation application of level 4 theraband to decrease excess ER right LE PT-OP-G Mobility & Gait Start: 05/28/19 08:11 Freq: Status: Active Protocol: Document 05/26/20 11:15 [facility] (Rec: 05/26/20 17:04 [facility] [id number]) OP Mobility Evaluation Bed Mobility Rolling min assist to right CGA to left Supine to and from Sit min assist to right CGA to left Transfers Sit to Stand CGA to min assist without UE use Bed to Chair Transfers requires use of right UE but able to do with SBA Floor Transfers unable PT-OP-H Neuro Start: 05/28/19 08:11 Freq: Status: Active Protocol: Document 05/29/19 14:30 [facility] (Rec: 05/30/19 14:24 [facility] [id number]) Sensation Evaluation Gross Sensation Gross Sensation Left UE Impaired,Left LE Impaired Sensation Description Paresthesia,Numbness Coordination Evaluation Lower Extremity Tests Left Alternate Heel to Knee; Heel to Toe Test Moderate Impairment Heel on Boles Test Moderate Impairment Foot Tapping Test Moderate Impairment PT-OP-K Range of Motion Start: 05/28/19 08:11 Freq: Status: Active Protocol: Document 05/26/20 11:15 [facility] (Rec: 05/26/20 17:04 [facility] [id number]) Hip Goniometric Range of Motion Hip jake Hip ROM WFL Yes Comments actively right LE, passively left LE Knee Goniometric Range of Motion Knee jake Knee ROM WFL Yes Ankle and Foot Goniometric Range of Motion Ankle and Foot Left Passive Ankle/Foot ROM WFL No Left Active Ankle/Foot ROM WFL No PT-OP-M Strength Start: 05/28/19 08:11 Freq: Status: Active Protocol: Document 05/26/20 11:15 [facility] (Rec: 05/26/20 17:04 [facility] [id number]) Hip Strength Hip Manual Muscle Testing Left Flexion (L2) 3- Fair- Extension (S1) 2 Poor Abduction 2+ Poor+ External Rotation 3- Fair- Internal Rotation 3+ Fair+ Right Flexion (L2) 4 Good Extension (S1) 4- Good- Abduction 4 Good External Rotation 3+ Fair+ Internal Rotation 4- Good- PT-OP-Q Treatments Start: 05/28/19 08:11 Freq: Status: Active Protocol: Document 06/18/20 16:49 [facility] (Rec: 06/18/20 16:57 [facility] [id number]) Cardio Equipment Recumbent Stepper (Sci-Fit) Duration (Minutes) 10 Resistance 1 Seat Position 8 Other AFO loosened, assist for left LE alignment, emphasis RPM 50, 1 mile in 10:4 Therapeutic Exercises Standing Exercises weight-shifting Standing Exercise Name side to side, front to back Equipment Used no AFO Reps/Minutes 2 Comments mirror for visual feedback sit to stands Standing Exercise Name including with right foot on green foam to facil increased weight-bearing L Equipment Used no AFO Reps/Minutes 5x Comments manual cues for left LE alignment and L quad activation Gait Training Gait Activity 1 Description level surface (Blue TB spiral wrap) Device Used quad cane Level of Assistance close SBA, Metronome at 50bpm Surface level floor, firm Distance/Duration 75'x1 Treatment Focus L hip IR and decrease L knee hyperextension, pacing, metronome for pacing Comments 1.L4 TB tied at left shoe, wrapped around clockwise LE and tied to gait belt assist with internal rotation foot/ hip facilitation cues for forward trunk positioning to allow LLE proper alignment. 2.protraction of left hip with gait Did not use metronome this visit. stair mgt Description hallway stairs Device Used R HR Level of Assistance CG to min assist, cues for increased weight shift left, decreased use of Surface 4 stairs Distance/Duration 20 stairs Treatment Focus increased weight shift left, decreased use right UE Comments alternating feet 6x ascending, 4x descending with excess use right UE, very fearful especially descending PT-OP-R Modalities Start: 05/28/19 08:11 Freq: Status: Active Protocol: Document 03/19/20 10:31 SAK (Rec: 03/19/20 11:17 SAK [id number]) Electric Stimulation Electric Stimulation Functional Electric Stimulation Body Location left anterior tib Duration (Minutes) 10 Intensity 52 Contraction Type Normal Cycle 10/10 Ramp 2.0 Patient Position Sitting Comments Estonian stim PT-OP-T Assessment and Plan Start: 05/28/19 08:11 Freq: Status: Active Protocol: Document 06/18/20 16:49 SAK (Rec: 06/18/20 16:57 [facility] [id number]) Physical Therapy Assessment Goals Five Impairment gait speed not adequate for safe community ambulation Hand Reamer Goal (LTG) Patient able to ambulate 300' in 6 min 06/02/20: 134' LTG Duration 08/24/20 Four Impairment requires assistance with bed mobility and transfers Short Term Goal (STG) Patient will be able to perform all bed mobility independently to improve her functional independence. 10/31/19: good goal progress 06/02/20: STG Duration goal met Hand Reamer Goal (LTG) Patient will be able to perform a floor transfer with SB to min assist 10/31/19: max assist today 01/02/20: has not been willing to try since 10/31/19 06/02/20: does not feel strong enough to try yet. LTG Duration 08/24/20 Three Impairment weakness left UE and LE s/p CVA Long-Term Goal (LTG) Improve functional strength in left LE, as evidenced by ability to move from sit > < stand without use of UE's. 10/31/19: OT starts tomorrow. Good progress with sit to stand, though mostly using right UE and LE 01/02/20: Improving ability to perform, able to increase weight-bearing through left LE with cues, but still some use of right UE 05/26/20: With manual and visual feedback patient able to transfer sit to stand with only CG A. LTG Duration 08/24/20 Two Impairment balance dysfunction with high risk for falls Hand Reamer Goal (LTG) Improve balance as evidenced by improvement in Tinnetti balance and gait score to low fall risk range to improve safety in the home and community. 6/24/20: remains high risk for falls 01/02/20: some improvement but still in high risk category 05/26/20: Tinetti score in high risk category LTG Duration 08/24/20 One Impairment requires armaan-walker for gait, limited to household gait Long-Term Goal (LTG) Patient able to ambulate with least restrictive device for functional community distances to improve her functional independence and quality of life. 10/30/19: no progress due to Covid 19. 11/02/19: able to ambulate with quad cane but with very slow speed, household distances, very short community distances . 05/26/20: Now able to ambulate with use of single point cane and use of L4 theraband wrapped around left LE to facilitate left LE internal rotation for improved alignment. Patient unable to don the theraband on her own. Gait is for short distances and very slow at 39 ft in 2 min. LTG Duration 08/24/20 Assessment Summary Assessment Patient unable to adjust gait to 50bpm, excess stance time right, decreased step length right. Patient having difficult day emotionally, needed much encouragement. Physical Therapy Plan Frequency and Duration Frequency of Treatment 2x/Week Duration of Treatment 12 wks Plan of Care Start Date 05/26/20 Plan of Care End Date 08/24/20 Therapeutic Interventions Therapeutic Interventions Aquatic Therapy,Balance Training,Gait Training,Home Exercise Program,Neuromuscular Re-education,Orthotic/ Prosthetic Management,Patient/ Caregiver Education,Self-Care/ Home Management,Taping, Therapeutic Activities, Therapeutic Exercises Modalities Cold Pack/Ice Massage,Hot Packs Next Visit Focus/Plan Next Note Type Treatment Note Next Visit Plan Metronome for gait training, shuttle leg press, especially single leg on left . Continue stair training
--- NOTE | 2020-06-25 12:25 | PT.OTN ---
Current Diagnoses Hemiplegia, unspecified affecting unspecified side (06/25/20) Difficulty in walking, not elsewhere classified (06/25/20) Weakness (06/25/20) History of falling (06/25/20) Physical Therapy Treatment Note PT-OP-A Visit Information Start: 05/28/19 08:11 Freq: Status: Active Protocol: Document 06/25/20 12:12 AW (Rec: 06/25/20 12:25 AW [id number]) Out-Patient Physical Therapy Visit Information Visit Information Visit Type Treatment Note Visit Start Time 11:18 Visit Stop Time 12:03 Total Visit Minutes 58 Visit Number 45 PT-OP-B Current Condition Start: 05/28/19 08:11 Freq: Status: Active Protocol: Document 06/04/20 11:15 SAK (Rec: 06/05/20 16:34 SAK [id number]) Current Condition History of Current Condition Onset Date 2014 Current Complaints weakness, requires assistance with all mobility and household tasks History of Current Condition Reports that she suffered a stroke in 2014 after surgery for brain aneurysm. CVA caused weakness on the left side of her body, gait and balance difficulty, seizures. PT-OP-C Subjective Start: 05/28/19 08:11 Freq: Status: Active Protocol: Document 06/25/20 12:12 AW (Rec: 06/25/20 12:25 AW [id number]) OP-PT Subjective Patient Comments Patient Comments Pt would like to try using a SPC and brings a collapsible one today. PT-OP-D Balance Start: 05/28/19 08:11 Freq: Status: Active Protocol: Document 05/29/19 14:30 SAK (Rec: 05/30/19 14:24 SAK [id number]) OP-PT Balance Assessment Sitting Balance Static Sitting Balance Ability Good Dynamic Sitting Balance Ability Fair Standing Balance Static Standing Balance Ability Good Dynamic Standing Balance Ability Fair Device Used hemiwalker right Tinetti Balance Assessment Sitting Balance Sitting Balance Steady, safe Arising from Chair Attempts to Arise Able, requires >1 attempt Standing Balance Immediate Standing Balance Steady with support Standing Balance Steady, wide stance Nudged Response Begins to fall Standing with Eyes Closed Unsteady Turning Step Pattern Turning 360 Degrees Discontinuous steps Stability Turning 360 Degrees Unsteady, grabs/staggers Sitting Down Sitting Down Uses arms or unsteady Gait and Step Initiation of Gait Hesitancy, mult. attempts Right Foot Step Length Does not pass stance ft. Right Foot Step Height Does not clear floor Left Foot Step Length Does not pass stance foot Left Foot Step Height Does not clear floor Step Description Step Symmetry Step length not equal Gait Description Path Description Mild/moderate deviation Trunk Description Marked sway or uses aide Walking Stance Heels apart Scoring and Interpretation Tinetti Composite Score (points) 6 Interpretation of Scores High risk for falls(< 19) Herrera Fall Scale Copyright Permission PT-OP-E Functional Tests Start: 05/28/19 08:11 Freq: Status: Active Protocol: Document 05/26/20 11:15 SAK (Rec: 05/26/20 17:04 [facility] [id number]) Functional Tests 2 Minute Walk Test Distance 39 ft Device Used single point cane Comments derotation application of level 4 theraband to decrease excess ER right LE PT-OP-G Mobility & Gait Start: 05/28/19 08:11 Freq: Status: Active Protocol: Document 05/26/20 11:15 SAK (Rec: 05/26/20 17:04 [facility] [id number]) OP Mobility Evaluation Bed Mobility Rolling min assist to right CGA to left Supine to and from Sit min assist to right CGA to left Transfers Sit to Stand CGA to min assist without UE use Bed to Chair Transfers requires use of right UE but able to do with SBA Floor Transfers unable PT-OP-H Neuro Start: 05/28/19 08:11 Freq: Status: Active Protocol: Document 05/29/19 14:30 SAK (Rec: 05/30/19 14:24 [facility] [id number]) Sensation Evaluation Gross Sensation Gross Sensation Left UE Impaired,Left LE Impaired Sensation Description Paresthesia,Numbness Coordination Evaluation Lower Extremity Tests Left Alternate Heel to Knee; Heel to Toe Test Moderate Impairment Heel on Boles Test Moderate Impairment Foot Tapping Test Moderate Impairment PT-OP-K Range of Motion Start: 05/28/19 08:11 Freq: Status: Active Protocol: Document 05/26/20 11:15 SAK (Rec: 05/26/20 17:04 [facility] [id number]) Hip Goniometric Range of Motion Hip jake Hip ROM WFL Yes Comments actively right LE, passively left LE Knee Goniometric Range of Motion Knee jake Knee ROM WFL Yes Ankle and Foot Goniometric Range of Motion Ankle and Foot Left Passive Ankle/Foot ROM WFL No Left Active Ankle/Foot ROM WFL No PT-OP-M Strength Start: 05/28/19 08:11 Freq: Status: Active Protocol: Document 05/26/20 11:15 SAK (Rec: 05/26/20 17:04 SAK [id number]) Hip Strength Hip Manual Muscle Testing Left Flexion (L2) 3- Fair- Extension (S1) 2 Poor Abduction 2+ Poor+ External Rotation 3- Fair- Internal Rotation 3+ Fair+ Right Flexion (L2) 4 Good Extension (S1) 4- Good- Abduction 4 Good External Rotation 3+ Fair+ Internal Rotation 4- Good- PT-OP-Q Treatments Start: 05/28/19 08:11 Freq: Status: Active Protocol: Document 06/25/20 12:12 AW (Rec: 06/25/20 12:25 AW [id number]) Cardio Equipment Recumbent Stepper (Sci-Fit) Duration (Minutes) 10 Resistance 1 Seat Position 8 Other AFO loosened, assist for left LE alignment, emphasis RPM 50 Gym Equipment Shuttle Recovery Unilateral Squats Details LLE Resistance 25# Shuttle Recovery Platform Stable Reps/Time verbal and manual cues for left LE alignment and avoidance of hyperextensio Bilateral Squats Details bilateral squats Resistance 50# Reps/Time 2 x 10 reps Therapeutic Exercises Standing Exercises weight-shifting Standing Exercise Name side to side, front to back Equipment Used no AFO Reps/Minutes 2 Comments mirror for visual feedback sit to stands Standing Exercise Name including with right foot on green foam to facil increased weight-bearing L Equipment Used no AFO Reps/Minutes 5x Comments manual cues for left LE alignment and L quad activation Gait Training Gait Activity 1 Description level surface (Blue TB spiral wrap) Device Used SPC Level of Assistance close SBA, Metronome at 50, 45 bpm Surface level floor, firm Distance/Duration 75'x2 Treatment Focus L hip IR and decrease L knee hyperextension, pacing, metronome for pacing Comments 1.L4 TB tied at left shoe, wrapped around clockwise LE and tied to gait belt assist with internal rotation foot/ hip facilitation cues for forward trunk positioning to allow LLE proper alignment. 2.protraction of left hip with gait 3.metronome at 50/min but with limited success. Reset metronome to 45/min on second pass and increased feedback on weight shift in left stance with improved results and enrike. 4.pain reported in right wrist using SPC PT-OP-R Modalities Start: 05/28/19 08:11 Freq: Status: Active Protocol: Document 03/19/20 10:31 SAK (Rec: 03/19/20 11:17 SAK [id number]) Electric Stimulation Electric Stimulation Functional Electric Stimulation Body Location left anterior tib Duration (Minutes) 10 Intensity 52 Contraction Type Normal Cycle 10/10 Ramp 2.0 Patient Position Sitting Comments [place] stim PT-OP-T Assessment and Plan Start: 05/28/19 08:11 Freq: Status: Active Protocol: Document 06/25/20 12:12 AW (Rec: 06/25/20 12:25 AW [id number]) Physical Therapy Assessment Goals Five Impairment gait speed not adequate for safe community ambulation Usp Goal (LTG) Patient able to ambulate 300' in 6 min 06/02/20: 134' LTG Duration 08/24/20 Four Impairment requires assistance with bed mobility and transfers Short Term Goal (STG) Patient will be able to perform all bed mobility independently to improve her functional independence. 10/31/19: good goal progress 06/02/20: STG Duration goal met Usp Goal (LTG) Patient will be able to perform a floor transfer with SB to min assist 10/31/19: max assist today 01/02/20: has not been willing to try since 10/31/19 06/02/20: does not feel strong enough to try yet. LTG Duration 08/24/20 Three Impairment weakness left UE and LE s/p CVA Usp Goal (LTG) Improve functional strength in left LE, as evidenced by ability to move from sit > < stand without use of UE's. 10/31/19: OT starts tomorrow. Good progress with sit to stand, though mostly using right UE and LE 01/02/20: Improving ability to perform, able to increase weight-bearing through left LE with cues, but still some use of right UE 05/26/20: With manual and visual feedback patient able to transfer sit to stand with only CG A. LTG Duration 08/24/20 Two Impairment balance dysfunction with high risk for falls Usp Goal (LTG) Improve balance as evidenced by improvement in Tinnetti balance and gait score to low fall risk range to improve safety in the home and community. 10/31/19: remains high risk for falls 01/02/20: some improvement but still in high risk category 05/26/20: Tinetti score in high risk category LTG Duration 08/24/20 One Impairment requires armaan-walker for gait, limited to household gait Electronic Engraver Goal (LTG) Patient able to ambulate with least restrictive device for functional community distances to improve her functional independence and quality of life. 10/30/19: no progress due to Covid 19. 11/02/19: able to ambulate with quad cane but with very slow speed, household distances, very short community distances . 05/26/20: Now able to ambulate with use of single point cane and use of L4 theraband wrapped around left LE to facilitate left LE internal rotation for improved alignment. Patient unable to don the theraband on her own. Gait is for short distances and very slow at 39 ft in 2 min. LTG Duration 08/24/20 Assessment Summary Assessment Pt improved LLE weight shift and stance time with metronome set to 45 bpm but progress was limited by trial of SPC. PT recommending continued use of quad cane at this time due to increased RUE weightbearing causing right wrist pain. Physical Therapy Plan Frequency and Duration Frequency of Treatment 2x/Week Duration of Treatment 12 wks Plan of Care Start Date 05/26/20 Plan of Care End Date 08/24/20 Therapeutic Interventions Therapeutic Interventions Aquatic Therapy,Balance Training,Gait Training,Home Exercise Program,Neuromuscular Re-education,Orthotic/ Prosthetic Management,Patient/ Caregiver Education,Self-Care/ Home Management,Taping, Therapeutic Activities, Therapeutic Exercises Modalities Cold Pack/Ice Massage,Hot Packs Next Visit Focus/Plan Next Note Type Treatment Note Next Visit Plan Metronome for gait training, shuttle leg press, especially single leg on left . Continue stair training
--- NOTE | 2020-06-27 10:30 | PT.OTN ---
Current Diagnoses Hemiplegia, unspecified affecting unspecified side (06/27/20) Difficulty in walking, not elsewhere classified (06/27/20) Weakness (06/27/20) History of falling (06/27/20) Physical Therapy Treatment Note PT-OP-A Visit Information Start: 05/28/19 08:11 Freq: Status: Active Protocol: Document 06/27/20 09:46 SP (Rec: 06/27/20 11:58 SP [id number]) Out-Patient Physical Therapy Visit Information Visit Information Visit Type Treatment Note Visit Note WOJCIECH Rodriguez attended tx observation only. Visit Start Time 09:46 Visit Stop Time 10:30 Total Visit Minutes 44 Visit Number 46 Number of FINGERNAIL FORMER Visits 1 PT-OP-B Current Condition Start: 05/28/19 08:11 Freq: Status: Active Protocol: Document 06/04/20 11:15 SAK (Rec: 06/05/20 16:34 SAK [id number]) Current Condition History of Current Condition Onset Date 2014 Current Complaints weakness, requires assistance with all mobility and household tasks History of Current Condition Reports that she suffered a stroke in 2014 after surgery for brain aneurysm. CVA caused weakness on the left side of her body, gait and balance difficulty, seizures. PT-OP-C Subjective Start: 05/28/19 08:11 Freq: Status: Active Protocol: Document 06/27/20 09:46 SP (Rec: 06/27/20 11:58 SP [id number]) OP-PT Subjective Patient Comments Patient Comments Pt stated her physician is considering decreasing her pain med Nortriptyline and afraid this will cause her more pain. Pt reported having lateral L thigh pain that extends down to her foot more today and wanted to work on stretching with instruction with her caregiver Lena to help her at home during tx. PT-OP-D Balance Start: 05/28/19 08:11 Freq: Status: Active Protocol: Document 05/29/19 14:30 SAK (Rec: 05/30/19 14:24 SAK [id number]) OP-PT Balance Assessment Sitting Balance Static Sitting Balance Ability Good Dynamic Sitting Balance Ability Fair Standing Balance Static Standing Balance Ability Good Dynamic Standing Balance Ability Fair Device Used hemiwalker right Tinetti Balance Assessment Sitting Balance Sitting Balance Steady, safe Arising from Chair Attempts to Arise Able, requires >1 attempt Standing Balance Immediate Standing Balance Steady with support Standing Balance Steady, wide stance Nudged Response Begins to fall Standing with Eyes Closed Unsteady Turning Step Pattern Turning 360 Degrees Discontinuous steps Stability Turning 360 Degrees Unsteady, grabs/staggers Sitting Down Sitting Down Uses arms or unsteady Gait and Step Initiation of Gait Hesitancy, mult. attempts Right Foot Step Length Does not pass stance ft. Right Foot Step Height Does not clear floor Left Foot Step Length Does not pass stance foot Left Foot Step Height Does not clear floor Step Description Step Symmetry Step length not equal Gait Description Path Description Mild/moderate deviation Trunk Description Marked sway or uses aide Walking Stance Heels apart Scoring and Interpretation Tinetti Composite Score (points) 6 Interpretation of Scores High risk for falls(< 19) Herrera Fall Scale Copyright Permission PT-OP-E Functional Tests Start: 05/28/19 08:11 Freq: Status: Active Protocol: Document 05/26/20 11:15 [facility] (Rec: 05/26/20 17:04 [facility] [id number]) Functional Tests 2 Minute Walk Test Distance 39 ft Device Used single point cane Comments derotation application of level 4 theraband to decrease excess ER right LE PT-OP-G Mobility & Gait Start: 05/28/19 08:11 Freq: Status: Active Protocol: Document 05/26/20 11:15 SAK (Rec: 05/26/20 17:04 [facility] [id number]) OP Mobility Evaluation Bed Mobility Rolling min assist to right CGA to left Supine to and from Sit min assist to right CGA to left Transfers Sit to Stand CGA to min assist without UE use Bed to Chair Transfers requires use of right UE but able to do with SBA Floor Transfers unable PT-OP-H Neuro Start: 05/28/19 08:11 Freq: Status: Active Protocol: Document 05/29/19 14:30 SAK (Rec: 05/30/19 14:24 [facility] [id number]) Sensation Evaluation Gross Sensation Gross Sensation Left UE Impaired,Left LE Impaired Sensation Description Paresthesia,Numbness Coordination Evaluation Lower Extremity Tests Left Alternate Heel to Knee; Heel to Toe Test Moderate Impairment Heel on Boles Test Moderate Impairment Foot Tapping Test Moderate Impairment PT-OP-K Range of Motion Start: 05/28/19 08:11 Freq: Status: Active Protocol: Document 05/26/20 11:15 SAK (Rec: 05/26/20 17:04 [facility] [id number]) Hip Goniometric Range of Motion Hip jake Hip ROM WFL Yes Comments actively right LE, passively left LE Knee Goniometric Range of Motion Knee jake Knee ROM WFL Yes Ankle and Foot Goniometric Range of Motion Ankle and Foot Left Passive Ankle/Foot ROM WFL No Left Active Ankle/Foot ROM WFL No PT-OP-M Strength Start: 05/28/19 08:11 Freq: Status: Active Protocol: Document 05/26/20 11:15 SAK (Rec: 05/26/20 17:04 SAK [id number]) Hip Strength Hip Manual Muscle Testing Left Flexion (L2) 3- Fair- Extension (S1) 2 Poor Abduction 2+ Poor+ External Rotation 3- Fair- Internal Rotation 3+ Fair+ Right Flexion (L2) 4 Good Extension (S1) 4- Good- Abduction 4 Good External Rotation 3+ Fair+ Internal Rotation 4- Good- PT-OP-Q Treatments Start: 05/28/19 08:11 Freq: Status: Active Protocol: Document 06/27/20 09:46 SP (Rec: 06/27/20 11:58 SP [id number]) Gym Equipment Shuttle Recovery Unilateral Squats Details LLE, RLE alternate Resistance 25#, 37# Shuttle Recovery Platform Stable Reps/Time verbal and manual cues for left LE alignment, avoid knee hyperext & hip ER Bilateral Squats Details bilateral squats w/ ball between knees, glut fac heel press Resistance 50# Reps/Time 2 x 10 reps Therapeutic Exercises Supine Exercises LTR Supine Exercise Name R> L states most beneficial Side bilateral Reps/Minutes 20 sec x2 Comments cued feet together DKFO tolerant range ITB stretch w/ strap Supine Exercise Name AAROM w/ caregiver education and support Side left Equipment Used manual assist AAROM using L6 TB Reps/Minutes 30x3 Comments cued slow movement into patient feedback: hip flex/ knee ext/ hip add alejandro gastroc stretch Supine Exercise Name manual stretch for DF back into sneaker/ AFO Side left Equipment Used in supine on Shuttle Recovery Comments adjusted straps to support DF for gait hamstring stretch Supine Exercise Name AAROM w/ caregiver education and support Side left Equipment Used manual assist AAROM using L6 TBj Reps/Minutes 2x30 sec Comments cued slow movement into patient feedback: hip flex/ knee ext/ hip add alejandro Gait Training Gait Activity gait w/ AD no wrapping Description forward level surface (L hip IR and soft knee flex/ ext) Device Used QC Level of Assistance SBA-S Surface level, firm floor Distance/Duration 101ft Treatment Focus L hip IR and decrease L knee hyperextension, pacing Comments occasional cuing for slow heel strike- improved with demonstration, pt stated is focusing on hip IR and not locking out knee. Self-Care/Home Management Treatment Education Patient Education Body Mechanics,Home Exercise Program,Joint Protection, Safety Caregiver Education Manual stretching HS and ITB with caregiver education on proper set up, form, support with slow pacing control while pt used BTB for self performance and benefits of decreasing L lateral leg burning pain. PT-OP-R Modalities Start: 05/28/19 08:11 Freq: Status: Active Protocol: Document 03/19/20 10:31 SAK (Rec: 03/19/20 11:17 SAK [id number]) Electric Stimulation Electric Stimulation Functional Electric Stimulation Body Location left anterior tib Duration (Minutes) 10 Intensity 52 Contraction Type Normal Cycle 10/10 Ramp 2.0 Patient Position Sitting Comments Tongan stim PT-OP-T Assessment and Plan Start: 05/28/19 08:11 Freq: Status: Active Protocol: Document 06/27/20 09:46 SP (Rec: 06/27/20 11:58 SP [id number]) Physical Therapy Assessment Goals Five Impairment gait speed not adequate for safe community ambulation Group Home Goal (LTG) Patient able to ambulate 300' in 6 min 06/02/20: 134' LTG Duration 08/24/20 Four Impairment requires assistance with bed mobility and transfers Short Term Goal (STG) Patient will be able to perform all bed mobility independently to improve her functional independence. 10/31/19: good goal progress 06/02/20: STG Duration goal met Group Home Goal (LTG) Patient will be able to perform a floor transfer with SB to min assist 10/31/19: max assist today 01/02/20: has not been willing to try since 10/31/19 06/02/20: does not feel strong enough to try yet. LTG Duration 08/24/20 Three Impairment weakness left UE and LE s/p CVA Group Home Goal (LTG) Improve functional strength in left LE, as evidenced by ability to move from sit > < stand without use of UE's. 10/31/19: OT starts tomorrow. Good progress with sit to stand, though mostly using right UE and LE 01/02/20: Improving ability to perform, able to increase weight-bearing through left LE with cues, but still some use of right UE 05/26/20: With manual and visual feedback patient able to transfer sit to stand with only CG A. LTG Duration 08/24/20 Two Impairment balance dysfunction with high risk for falls Group Home Goal (LTG) Improve balance as evidenced by improvement in Tinnetti balance and gait score to low fall risk range to improve safety in the home and community. 10/31/19: remains high risk for falls 01/02/20: some improvement but still in high risk category 05/26/20: Tinetti score in high risk category LTG Duration 08/24/20 One Impairment requires armaan-walker for gait, limited to household gait Automotive Parts Salesperson Goal (LTG) Patient able to ambulate with least restrictive device for functional community distances to improve her functional independence and quality of life. 10/30/19: no progress due to Covid 19. 11/02/19: able to ambulate with quad cane but with very slow speed, household distances, very short community distances . 05/26/20: Now able to ambulate with use of single point cane and use of L4 theraband wrapped around left LE to facilitate left LE internal rotation for improved alignment. Patient unable to don the theraband on her own. Gait is for short distances and very slow at 39 ft in 2 min. LTG Duration 08/24/20 Assessment Summary Assessment Pt improved with L hip IR and control knee flexion during gait, minimal hyperextension gait back to gym without TB suppport today. Pt c/o burning pain L lateral thigh into foot, improved post manual stretching, incorporated instruction w/ Lena caregiver for hip flex and assist maintain knee extension while pt used Blue Tb ( attached to foot) for hip flexion HS and ITB stretch. Lena requires mod cuing for hand placement and directioning of stretches while communicating with [place] for benefits of stretch needs/ wanting with success and improved slow pacing movement control. Lena is uncertain at times if doing correctly but is able with pt 's feedback. Pt reported that her and Lena are unsure how to don her new sling. FINGERNAIL FORMER did not have time today to review but passed off to her OT for further education but maybe carry over in PT tx with caregiver proficiency would be benificial and OT agreed both disiplines can support if needed during tx. Physical Therapy Plan Frequency and Duration Frequency of Treatment 2x/Week Duration of Treatment 12 wks Plan of Care Start Date 05/26/20 Plan of Care End Date 08/24/20 Therapeutic Interventions Therapeutic Interventions Aquatic Therapy,Balance Training,Gait Training,Home Exercise Program,Neuromuscular Re-education,Orthotic/ Prosthetic Management,Patient/ Caregiver Education,Self-Care/ Home Management,Taping, Therapeutic Activities, Therapeutic Exercises Modalities Cold Pack/Ice Massage,Hot Packs Next Visit Focus/Plan Next Note Type Treatment Note Next Visit Plan Assess response to last tx: gait and manual AAROM LLE stretching. Continue next tx PT POC: Metronome for gait training, shuttle leg press, especially single leg on left . Continue stair training. Assist with new sling trng if needed with pt and caregiver LenaBarry
--- NOTE | 2020-07-02 12:11 | PT.OTN ---
Current Diagnoses Hemiplegia, unspecified affecting unspecified side (07/02/20) Difficulty in walking, not elsewhere classified (07/02/20) Weakness (07/02/20) History of falling (07/02/20) Physical Therapy Treatment Note PT-OP-A Visit Information Start: 05/28/19 08:11 Freq: Status: Active Protocol: Document 07/02/20 11:17 AW (Rec: 07/02/20 12:11 AW [id number]) Out-Patient Physical Therapy Visit Information Visit Information Visit Type Treatment Note Visit Start Time 10:30 Visit Stop Time 11:15 Total Visit Minutes 45 Visit Number 47 Number of RECIPROCATING DRILL OPERATOR Visits 0 PT-OP-B Current Condition Start: 05/28/19 08:11 Freq: Status: Active Protocol: Document 06/04/20 11:15 SAK (Rec: 06/05/20 16:34 SAK [id number]) Current Condition History of Current Condition Onset Date 2014 Current Complaints weakness, requires assistance with all mobility and household tasks History of Current Condition Reports that she suffered a stroke in 2014 after surgery for brain aneurysm. CVA caused weakness on the left side of her body, gait and balance difficulty, seizures. PT-OP-C Subjective Start: 05/28/19 08:11 Freq: Status: Active Protocol: Document 07/02/20 11:17 AW (Rec: 07/02/20 12:11 AW [id number]) OP-PT Subjective Patient Comments Patient Comments Pt is in good spirits today and asks about working on the stairs. PT-OP-D Balance Start: 05/28/19 08:11 Freq: Status: Active Protocol: Document 05/29/19 14:30 SAK (Rec: 05/30/19 14:24 SAK [id number]) OP-PT Balance Assessment Sitting Balance Static Sitting Balance Ability Good Dynamic Sitting Balance Ability Fair Standing Balance Static Standing Balance Ability Good Dynamic Standing Balance Ability Fair Device Used hemiwalker right Tinetti Balance Assessment Sitting Balance Sitting Balance Steady, safe Arising from Chair Attempts to Arise Able, requires >1 attempt Standing Balance Immediate Standing Balance Steady with support Standing Balance Steady, wide stance Nudged Response Begins to fall Standing with Eyes Closed Unsteady Turning Step Pattern Turning 360 Degrees Discontinuous steps Stability Turning 360 Degrees Unsteady, grabs/staggers Sitting Down Sitting Down Uses arms or unsteady Gait and Step Initiation of Gait Hesitancy, mult. attempts Right Foot Step Length Does not pass stance ft. Right Foot Step Height Does not clear floor Left Foot Step Length Does not pass stance foot Left Foot Step Height Does not clear floor Step Description Step Symmetry Step length not equal Gait Description Path Description Mild/moderate deviation Trunk Description Marked sway or uses aide Walking Stance Heels apart Scoring and Interpretation Tinetti Composite Score (points) 6 Interpretation of Scores High risk for falls(< 19) Herrera Fall Scale Copyright Permission PT-OP-E Functional Tests Start: 05/28/19 08:11 Freq: Status: Active Protocol: Document 05/26/20 11:15 [facility] (Rec: 05/26/20 17:04 [facility] [id number]) Functional Tests 2 Minute Walk Test Distance 39 ft Device Used single point cane Comments derotation application of level 4 theraband to decrease excess ER right LE PT-OP-G Mobility & Gait Start: 05/28/19 08:11 Freq: Status: Active Protocol: Document 05/26/20 11:15 SAK (Rec: 05/26/20 17:04 [facility] [id number]) OP Mobility Evaluation Bed Mobility Rolling min assist to right CGA to left Supine to and from Sit min assist to right CGA to left Transfers Sit to Stand CGA to min assist without UE use Bed to Chair Transfers requires use of right UE but able to do with SBA Floor Transfers unable PT-OP-H Neuro Start: 05/28/19 08:11 Freq: Status: Active Protocol: Document 05/29/19 14:30 [facility] (Rec: 05/30/19 14:24 [facility] [id number]) Sensation Evaluation Gross Sensation Gross Sensation Left UE Impaired,Left LE Impaired Sensation Description Paresthesia,Numbness Coordination Evaluation Lower Extremity Tests Left Alternate Heel to Knee; Heel to Toe Test Moderate Impairment Heel on Boles Test Moderate Impairment Foot Tapping Test Moderate Impairment PT-OP-K Range of Motion Start: 05/28/19 08:11 Freq: Status: Active Protocol: Document 05/26/20 11:15 SAK (Rec: 05/26/20 17:04 [facility] [id number]) Hip Goniometric Range of Motion Hip jake Hip ROM WFL Yes Comments actively right LE, passively left LE Knee Goniometric Range of Motion Knee jake Knee ROM WFL Yes Ankle and Foot Goniometric Range of Motion Ankle and Foot Left Passive Ankle/Foot ROM WFL No Left Active Ankle/Foot ROM WFL No PT-OP-M Strength Start: 05/28/19 08:11 Freq: Status: Active Protocol: Document 05/26/20 11:15 SAK (Rec: 05/26/20 17:04 SAK [id number]) Hip Strength Hip Manual Muscle Testing Left Flexion (L2) 3- Fair- Extension (S1) 2 Poor Abduction 2+ Poor+ External Rotation 3- Fair- Internal Rotation 3+ Fair+ Right Flexion (L2) 4 Good Extension (S1) 4- Good- Abduction 4 Good External Rotation 3+ Fair+ Internal Rotation 4- Good- PT-OP-Q Treatments Start: 05/28/19 08:11 Freq: Status: Active Protocol: Document 07/02/20 11:17 AW (Rec: 07/02/20 12:11 AW [id number]) Cardio Equipment Recumbent Stepper (Sci-Fit) Duration (Minutes) 12 Resistance 1 Seat Position 8 Other 1 mile, AFO loosened, assist for left LE alignment, emphasis RPM 50 Gym Equipment Shuttle Recovery Unilateral Squats Details LLE Resistance 25# Shuttle Recovery Platform Stable Reps/Time verbal and manual cues for left LE alignment, avoid knee hyperext & hip ER Bilateral Squats Details bilateral squats w/ ball between knees, glut fac heel press Resistance 50# Reps/Time 2 x 10 reps Gait Training Gait Activity 1 Description level surface (Blue TB spiral wrap) Device Used quad cane Level of Assistance close SBA, Metronome at 47 bpm Surface level floor, firm Distance/Duration 75'x2 Treatment Focus L hip IR and decrease L knee hyperextension, pacing, metronome for pacing Comments 1.L4 TB tied at left shoe, wrapped around clockwise LE and tied to gait belt assist with internal rotation foot/ hip facilitation cues for forward trunk positioning to allow LLE proper alignment. 2.protraction of left hip with gait 3.metronome at 50/min but with limited success. Reset metronome to 45/min on second pass and increased feedback on weight shift in left stance with improved results and enrike. 4.pain reported in right wrist using SPC stair mgt Description hallway stairs Device Used R HR Level of Assistance CG to min assist Surface 4 stairs Distance/Duration 20 stairs Treatment Focus increased weight shift left, decreased use right UE Comments alternating feet 8x ascending, 4x descending with excess use right UE, very fearful but reassured with assist PT-OP-R Modalities Start: 05/28/19 08:11 Freq: Status: Active Protocol: Document 03/19/20 10:31 SAK (Rec: 03/19/20 11:17 SAK [id number]) Electric Stimulation Electric Stimulation Functional Electric Stimulation Body Location left anterior tib Duration (Minutes) 10 Intensity 52 Contraction Type Normal Cycle 10/10 Ramp 2.0 Patient Position Sitting Comments [place] Of [place] stim PT-OP-T Assessment and Plan Start: 05/28/19 08:11 Freq: Status: Active Protocol: Document 07/02/20 11:17 AW (Rec: 07/02/20 12:11 AW [id number]) Physical Therapy Assessment Goals Five Impairment gait speed not adequate for safe community ambulation Client Relationship Manager Goal (LTG) Patient able to ambulate 300' in 6 min 06/02/20: 134' LTG Duration 08/24/20 Four Impairment requires assistance with bed mobility and transfers Short Term Goal (STG) Patient will be able to perform all bed mobility independently to improve her functional independence. 10/31/19: good goal progress 06/02/20: STG Duration goal met Client Relationship Manager Goal (LTG) Patient will be able to perform a floor transfer with SB to min assist 10/31/19: max assist today 01/02/20: has not been willing to try since 10/31/19 06/02/20: does not feel strong enough to try yet. LTG Duration 08/24/20 Three Impairment weakness left UE and LE s/p CVA Care Home Goal (LTG) Improve functional strength in left LE, as evidenced by ability to move from sit > < stand without use of UE's. 10/31/19: OT starts tomorrow. Good progress with sit to stand, though mostly using right UE and LE 01/02/20: Improving ability to perform, able to increase weight-bearing through left LE with cues, but still some use of right UE 05/26/20: With manual and visual feedback patient able to transfer sit to stand with only CG A. LTG Duration 08/24/20 Two Impairment balance dysfunction with high risk for falls Client Relationship Manager Goal (LTG) Improve balance as evidenced by improvement in Tinnetti balance and gait score to low fall risk range to improve safety in the home and community. 10/31/19: remains high risk for falls 01/02/20: some improvement but still in high risk category 05/26/20: Tinetti score in high risk category LTG Duration 08/24/20 One Impairment requires armaan-walker for gait, limited to household gait Client Relationship Manager Goal (LTG) Patient able to ambulate with least restrictive device for functional community distances to improve her functional independence and quality of life. 10/30/19: no progress due to Covid 19. 11/02/19: able to ambulate with quad cane but with very slow speed, household distances, very short community distances . 05/26/20: Now able to ambulate with use of single point cane and use of L4 theraband wrapped around left LE to facilitate left LE internal rotation for improved alignment. Patient unable to don the theraband on her own. Gait is for short distances and very slow at 39 ft in 2 min. LTG Duration 08/24/20 Assessment Summary Assessment Improved awareness of left knee/hip during unilateral and bilateral squats. Treatment otherwise focused on gait activities with improved weight shift during gait at 46 -47 bpm on metronome. Physical Therapy Plan Frequency and Duration Frequency of Treatment 2x/Week Duration of Treatment 12 wks Plan of Care Start Date 05/26/20 Plan of Care End Date 08/24/20 Therapeutic Interventions Therapeutic Interventions Aquatic Therapy,Balance Training,Gait Training,Home Exercise Program,Neuromuscular Re-education,Orthotic/ Prosthetic Management,Patient/ Caregiver Education,Self-Care/ Home Management,Taping, Therapeutic Activities, Therapeutic Exercises Modalities Cold Pack/Ice Massage,Hot Packs Next Visit Focus/Plan Next Note Type Treatment Note Next Visit Plan Assess response to last tx: gait and manual AAROM LLE stretching. Continue next tx PT POC: Metronome for gait training, shuttle leg press, especially single leg on left . Continue stair training. Assist with new sling trng if needed with pt and caregiver Lena.
--- NOTE | 2020-07-04 10:42 | PT.OTN ---
Current Diagnoses Hemiplegia, unspecified affecting unspecified side (07/04/20) Difficulty in walking, not elsewhere classified (07/04/20) Weakness (07/04/20) History of falling (07/04/20) Physical Therapy Treatment Note PT-OP-A Visit Information Start: 05/28/19 08:11 Freq: Status: Active Protocol: Document 07/04/20 09:51 LD (Rec: 07/04/20 11:59 LD [id number]) Out-Patient Physical Therapy Visit Information Visit Information Visit Type Treatment Note Visit Note WOJCIECH Rodriguez co-led tx w/ LOG BRANDER Paola. Visit Start Time 09:51 Visit Stop Time 10:42 Total Visit Minutes 49 Visit Number 48 Number of LOG BRANDER Visits 1 PT-OP-B Current Condition Start: 05/28/19 08:11 Freq: Status: Active Protocol: Document 06/04/20 11:15 SAK (Rec: 06/05/20 16:34 SAK [id number]) Current Condition History of Current Condition Onset Date 2014 Current Complaints weakness, requires assistance with all mobility and household tasks History of Current Condition Reports that she suffered a stroke in 2014 after surgery for brain aneurysm. CVA caused weakness on the left side of her body, gait and balance difficulty, seizures. PT-OP-C Subjective Start: 05/28/19 08:11 Freq: Status: Active Protocol: Document 07/04/20 09:51 LD (Rec: 07/04/20 11:59 LD [id number]) OP-PT Subjective Patient Comments Patient Comments Pt arrived 6 min late, had late breakast. Pt reports she was exhausted after working with Reema serna tx but in a good way. PT-OP-D Balance Start: 05/28/19 08:11 Freq: Status: Active Protocol: Document 05/29/19 14:30 SAK (Rec: 05/30/19 14:24 SAK [id number]) OP-PT Balance Assessment Sitting Balance Static Sitting Balance Ability Good Dynamic Sitting Balance Ability Fair Standing Balance Static Standing Balance Ability Good Dynamic Standing Balance Ability Fair Device Used [facility] right Tinetti Balance Assessment Sitting Balance Sitting Balance Steady, safe Arising from Chair Attempts to Arise Able, requires >1 attempt Standing Balance Immediate Standing Balance Steady with support Standing Balance Steady, wide stance Nudged Response Begins to fall Standing with Eyes Closed Unsteady Turning Step Pattern Turning 360 Degrees Discontinuous steps Stability Turning 360 Degrees Unsteady, grabs/staggers Sitting Down Sitting Down Uses arms or unsteady Gait and Step Initiation of Gait Hesitancy, mult. attempts Right Foot Step Length Does not pass stance ft. Right Foot Step Height Does not clear floor Left Foot Step Length Does not pass stance foot Left Foot Step Height Does not clear floor Step Description Step Symmetry Step length not equal Gait Description Path Description Mild/moderate deviation Trunk Description Marked sway or uses aide Walking Stance Heels apart Scoring and Interpretation Tinetti Composite Score (points) 6 Interpretation of Scores High risk for falls(< 19) Herrera Fall Scale Copyright Permission PT-OP-E Functional Tests Start: 05/28/19 08:11 Freq: Status: Active Protocol: Document 05/26/20 11:15 [facility] (Rec: 05/26/20 17:04 [facility] [id number]) Functional Tests 2 Minute Walk Test Distance 39 ft Device Used single point cane Comments derotation application of level 4 theraband to decrease excess ER right LE PT-OP-G Mobility & Gait Start: 05/28/19 08:11 Freq: Status: Active Protocol: Document 05/26/20 11:15 [facility] (Rec: 05/26/20 17:04 [facility] [id number]) OP Mobility Evaluation Bed Mobility Rolling min assist to right CGA to left Supine to and from Sit min assist to right CGA to left Transfers Sit to Stand CGA to min assist without UE use Bed to Chair Transfers requires use of right UE but able to do with SBA Floor Transfers unable PT-OP-H Neuro Start: 05/28/19 08:11 Freq: Status: Active Protocol: Document 05/29/19 14:30 [facility] (Rec: 05/30/19 14:24 [facility] [id number]) Sensation Evaluation Gross Sensation Gross Sensation Left UE Impaired,Left LE Impaired Sensation Description Paresthesia,Numbness Coordination Evaluation Lower Extremity Tests Left Alternate Heel to Knee; Heel to Toe Test Moderate Impairment Heel on Boles Test Moderate Impairment Foot Tapping Test Moderate Impairment PT-OP-K Range of Motion Start: 05/28/19 08:11 Freq: Status: Active Protocol: Document 05/26/20 11:15 SAK (Rec: 05/26/20 17:04 [facility] [id number]) Hip Goniometric Range of Motion Hip jake Hip ROM WFL Yes Comments actively right LE, passively left LE Knee Goniometric Range of Motion Knee jake Knee ROM WFL Yes Ankle and Foot Goniometric Range of Motion Ankle and Foot Left Passive Ankle/Foot ROM WFL No Left Active Ankle/Foot ROM WFL No PT-OP-M Strength Start: 05/28/19 08:11 Freq: Status: Active Protocol: Document 05/26/20 11:15 SAK (Rec: 05/26/20 17:04 SAK [id number]) Hip Strength Hip Manual Muscle Testing Left Flexion (L2) 3- Fair- Extension (S1) 2 Poor Abduction 2+ Poor+ External Rotation 3- Fair- Internal Rotation 3+ Fair+ Right Flexion (L2) 4 Good Extension (S1) 4- Good- Abduction 4 Good External Rotation 3+ Fair+ Internal Rotation 4- Good- PT-OP-Q Treatments Start: 05/28/19 08:11 Freq: Status: Active Protocol: Document 07/04/20 09:51 LD (Rec: 07/04/20 11:59 LD [id number]) Cardio Equipment Recumbent Stepper (Sci-Fit) Duration (Minutes) 10 Resistance 1 Seat Position 8 Other 0.95 mile, AFO loosened, assist for left LE alignment, emphasis RPM 50 Gym Equipment Shuttle Recovery Unilateral Squats Details LLE Resistance 25# Shuttle Recovery Platform Stable Reps/Time verbal and manual cues for left LE alignment, avoid knee hyperext & hip ER Bilateral Squats Details bilateral squats w/ ball between knees, glut fac heel press Resistance 50# Reps/Time 2 x 10 reps, tingling in L lateral distal foot Gait Training Gait Activity 1 Description level surface (Blue TB spiral wrap) Device Used quad cane Level of Assistance close SBA, Metronome at 47 bpm Surface level floor, firm Distance/Duration 75' Treatment Focus L hip IR and decrease L knee hyperextension, pacing, metronome for pacing Comments 1. Caregiver assisted w/ L4 TB tied at left shoe, wrapped around clockwise LE with gait belt to assist with internal rotation foot/ hip facilitation to allow LLE proper alignment. stair mgt Description 4 Device Used R HR Level of Assistance CG to min assist Surface 6 stairs Distance/Duration 4x2 stairs Treatment Focus increased weight shift left, decreased use right UE Comments 1. alternating feet ascending step to pattern providing lateral support of L knee w/ therapist LE and anterior L patella support w/ hand to prevent excessive knee varus and flexion, descending w/ L LE first support of lateral and anterior L patella, cueing to keep L LE bent slightly to prevent hyperextension. 2. Cues to keep knee slightly bent and L LE internally rotated w/ toes facing forward . 3. Instructed caregiver to assist w/ details above PT-OP-R Modalities Start: 05/28/19 08:11 Freq: Status: Active Protocol: Document 03/19/20 10:31 SAK (Rec: 03/19/20 11:17 SAK [id number]) Electric Stimulation Electric Stimulation Functional Electric Stimulation Body Location left anterior tib Duration (Minutes) 10 Intensity 52 Contraction Type Normal Cycle 10/ Ramp 2.0 Patient Position Sitting Comments [place] stim PT-OP-T Assessment and Plan Start: 05/28/19 08:11 Freq: Status: Active Protocol: Document 07/04/20 09:51 LD (Rec: 07/04/20 11:59 LD [id number]) Physical Therapy Assessment Goals Five Impairment gait speed not adequate for safe community ambulation Administration Assistant Goal (LTG) Patient able to ambulate 300' in 6 min 06/02/20: 134' LTG Duration 08/24/20 Four Impairment requires assistance with bed mobility and transfers Short Term Goal (STG) Patient will be able to perform all bed mobility independently to improve her functional independence. 10/31/19: good goal progress 06/02/20: STG Duration goal met Administration Assistant Goal (LTG) Patient will be able to perform a floor transfer with SB to min assist 10/31/19: max assist today 01/02/20: has not been willing to try since 10/31/19 06/02/20: does not feel strong enough to try yet. LTG Duration 08/24/20 Three Impairment weakness left UE and LE s/p CVA Administration Assistant Goal (LTG) Improve functional strength in left LE, as evidenced by ability to move from sit > < stand without use of UE's. 10/31/19: OT starts tomorrow. Good progress with sit to stand, though mostly using right UE and LE 01/02/20: Improving ability to perform, able to increase weight-bearing through left LE with cues, but still some use of right UE 05/26/20: With manual and visual feedback patient able to transfer sit to stand with only CG A. LTG Duration 08/24/20 Two Impairment balance dysfunction with high risk for falls Half-Way Goal (LTG) Improve balance as evidenced by improvement in Tinnetti balance and gait score to low fall risk range to improve safety in the home and community. 10/31/19: remains high risk for falls 01/02/20: some improvement but still in high risk category 05/26/20: Tinetti score in high risk category LTG Duration 08/24/20 One Impairment requires armaan-walker for gait, limited to household gait Administration Assistant Goal (LTG) Patient able to ambulate with least restrictive device for functional community distances to improve her functional independence and quality of life. 10/30/19: no progress due to Covid 19. 11/02/19: able to ambulate with quad cane but with very slow speed, household distances, very short community distances . 05/26/20: Now able to ambulate with use of single point cane and use of L4 theraband wrapped around left LE to facilitate left LE internal rotation for improved alignment. Patient unable to don the theraband on her own. Gait is for short distances and very slow at 39 ft in 2 min. LTG Duration 08/24/20 Assessment Summary Assessment Tx focus on gait activities and strength of L LE. Pt reported tingling in L distal lateral along 5th MTP LE required tactile cues to facilitate med quad muscle and internal rotation during shuttle leg press. Pt tolerated stair mgt well with improved weight shift and knee flexion, requiring occasional cues to prevent hyperextension of knee and external rotation. Instructed caregiver how to assist w/ stairs at home. Pt forgot to bring her new sling today, stated will bring next tx, OT recommended if could incorporate in carryover reinforcement and proper application by caregiver to allow L UE support during gait. Pt improved w/ L hip IR and knee flexion control by end of tx. Physical Therapy Plan Frequency and Duration Frequency of Treatment 2x/Week Duration of Treatment 12 wks Plan of Care Start Date 05/26/20 Plan of Care End Date 08/24/20 Therapeutic Interventions Therapeutic Interventions Aquatic Therapy,Balance Training,Gait Training,Home Exercise Program,Neuromuscular Re-education,Orthotic/ Prosthetic Management,Patient/ Caregiver Education,Self-Care/ Home Management,Taping, Therapeutic Activities, Therapeutic Exercises Modalities Cold Pack/Ice Massage,Hot Packs Next Visit Focus/Plan Next Note Type Treatment Note Next Visit Plan Assess response to last tx: gait, shuttle leg press and stair mgt. Continue next tx PT POC: Metronome for gait training, shuttle leg press, especially single leg on left . Continue stair training. Assist with new sling trng if needed with pt and caregiver LenaBarry
--- NOTE | 2020-07-09 12:28 | PT.OTN ---
Current Diagnoses Hemiplegia, unspecified affecting unspecified side (07/09/20) Difficulty in walking, not elsewhere classified (07/09/20) Weakness (07/09/20) History of falling (07/09/20) Physical Therapy Treatment Note PT-OP-A Visit Information Start: 05/28/19 08:11 Freq: Status: Active Protocol: Document 07/09/20 10:39 AW (Rec: 07/09/20 12:28 AW [id number]) Out-Patient Physical Therapy Visit Information Visit Information Visit Type Treatment Note Visit Start Time 10:35 Visit Stop Time 11:15 Total Visit Minutes 40 Visit Number 49 Number of CARDIOPULMONARY SUPERVISOR Visits 0 PT-OP-B Current Condition Start: 05/28/19 08:11 Freq: Status: Active Protocol: Document 06/04/20 11:15 SAK (Rec: 06/05/20 16:34 SAK [id number]) Current Condition History of Current Condition Onset Date 2014 Current Complaints weakness, requires assistance with all mobility and household tasks History of Current Condition Reports that she suffered a stroke in 2014 after surgery for brain aneurysm. CVA caused weakness on the left side of her body, gait and balance difficulty, seizures. PT-OP-C Subjective Start: 05/28/19 08:11 Freq: Status: Active Protocol: Document 07/09/20 10:39 AW (Rec: 07/09/20 10:50 AW [id number]) OP-PT Subjective Patient Comments Patient Comments Pt reports some right hip pain in recent weeks. She says she is mostly just sore after treatment and does not attribute pain to PT. Patient Reported Progress Same PT-OP-D Balance Start: 05/28/19 08:11 Freq: Status: Active Protocol: Document 05/29/19 14:30 SAK (Rec: 05/30/19 14:24 SAK [id number]) OP-PT Balance Assessment Sitting Balance Static Sitting Balance Ability Good Dynamic Sitting Balance Ability Fair Standing Balance Static Standing Balance Ability Good Dynamic Standing Balance Ability Fair Device Used hemiwalker right Tinetti Balance Assessment Sitting Balance Sitting Balance Steady, safe Arising from Chair Attempts to Arise Able, requires >1 attempt Standing Balance Immediate Standing Balance Steady with support Standing Balance Steady, wide stance Nudged Response Begins to fall Standing with Eyes Closed Unsteady Turning Step Pattern Turning 360 Degrees Discontinuous steps Stability Turning 360 Degrees Unsteady, grabs/staggers Sitting Down Sitting Down Uses arms or unsteady Gait and Step Initiation of Gait Hesitancy, mult. attempts Right Foot Step Length Does not pass stance ft. Right Foot Step Height Does not clear floor Left Foot Step Length Does not pass stance foot Left Foot Step Height Does not clear floor Step Description Step Symmetry Step length not equal Gait Description Path Description Mild/moderate deviation Trunk Description Marked sway or uses aide Walking Stance Heels apart Scoring and Interpretation Tinetti Composite Score (points) 6 Interpretation of Scores High risk for falls(< 19) Herrera Fall Scale Copyright Permission PT-OP-E Functional Tests Start: 05/28/19 08:11 Freq: Status: Active Protocol: Document 05/26/20 11:15 [facility] (Rec: 05/26/20 17:04 [facility] [id number]) Functional Tests 2 Minute Walk Test Distance 39 ft Device Used single point cane Comments derotation application of level 4 theraband to decrease excess ER right LE PT-OP-G Mobility & Gait Start: 05/28/19 08:11 Freq: Status: Active Protocol: Document 05/26/20 11:15 [facility] (Rec: 05/26/20 17:04 [facility] [id number]) OP Mobility Evaluation Bed Mobility Rolling min assist to right CGA to left Supine to and from Sit min assist to right CGA to left Transfers Sit to Stand CGA to min assist without UE use Bed to Chair Transfers requires use of right UE but able to do with SBA Floor Transfers unable PT-OP-H Neuro Start: 05/28/19 08:11 Freq: Status: Active Protocol: Document 05/29/19 14:30 [facility] (Rec: 05/30/19 14:24 [facility] [id number]) Sensation Evaluation Gross Sensation Gross Sensation Left UE Impaired,Left LE Impaired Sensation Description Paresthesia,Numbness Coordination Evaluation Lower Extremity Tests Left Alternate Heel to Knee; Heel to Toe Test Moderate Impairment Heel on Boles Test Moderate Impairment Foot Tapping Test Moderate Impairment PT-OP-K Range of Motion Start: 05/28/19 08:11 Freq: Status: Active Protocol: Document 05/26/20 11:15 [facility] (Rec: 05/26/20 17:04 [facility] [id number]) Hip Goniometric Range of Motion Hip jake Hip ROM WFL Yes Comments actively right LE, passively left LE Knee Goniometric Range of Motion Knee jake Knee ROM WFL Yes Ankle and Foot Goniometric Range of Motion Ankle and Foot Left Passive Ankle/Foot ROM WFL No Left Active Ankle/Foot ROM WFL No PT-OP-M Strength Start: 05/28/19 08:11 Freq: Status: Active Protocol: Document 05/26/20 11:15 SAK (Rec: 05/26/20 17:04 SAK [id number]) Hip Strength Hip Manual Muscle Testing Left Flexion (L2) 3- Fair- Extension (S1) 2 Poor Abduction 2+ Poor+ External Rotation 3- Fair- Internal Rotation 3+ Fair+ Right Flexion (L2) 4 Good Extension (S1) 4- Good- Abduction 4 Good External Rotation 3+ Fair+ Internal Rotation 4- Good- PT-OP-Q Treatments Start: 05/28/19 08:11 Freq: Status: Active Protocol: Document 07/09/20 10:39 AW (Rec: 07/09/20 10:47 AW [id number]) Cardio Equipment Recumbent Stepper (Sci-Fit) Duration (Minutes) 11 Resistance 1 Seat Position 8 Other 1.0 mile, AFO loosened, assist for left LE alignment, emphasis RPM 50 Gym Equipment Shuttle Recovery Unilateral Squats Details LLE Resistance 25# Shuttle Recovery Platform Stable Reps/Time verbal and manual cues for left LE alignment, avoid knee hyperext & hip ER Bilateral Squats Details bilateral squats w/ ball between knees, glut fac heel press Resistance 50# Reps/Time 2 x 10 reps; cues for LLE hip rotation Gait Training Gait Activity 1 Description level surface (Blue TB spiral wrap) Device Used quad cane Level of Assistance close SBA, Metronome at 45 bpm Surface level floor, firm Distance/Duration 75' Treatment Focus L hip IR and decrease L knee hyperextension, pacing, metronome for pacing Comments 1. L4 TB tied at left shoe, wrapped around clockwise LE with gait belt to assist with internal rotation foot/ hip facilitation to allow LLE proper alignment. 2. metronome at 45 bpm for emphasis on increased LLE weightbearing and stance time. PT-OP-R Modalities Start: 05/28/19 08:11 Freq: Status: Active Protocol: Document 03/19/20 10:31 SAK (Rec: 03/19/20 11:17 SAK [id number]) Electric Stimulation Electric Stimulation Functional Electric Stimulation Body Location left anterior tib Duration (Minutes) 10 Intensity 52 Contraction Type Normal Cycle 10/10 Ramp 2.0 Patient Position Sitting Comments Yemeni stim PT-OP-T Assessment and Plan Start: 05/28/19 08:11 Freq: Status: Active Protocol: Document 07/09/20 10:39 AW (Rec: 07/09/20 12:28 AW [id number]) Physical Therapy Assessment Goals Five Impairment gait speed not adequate for safe community ambulation Long-Term Goal (LTG) Patient able to ambulate 300' in 6 min 06/02/20: 134' LTG Duration 08/24/20 Four Impairment requires assistance with bed mobility and transfers Short Term Goal (STG) Patient will be able to perform all bed mobility independently to improve her functional independence. 10/31/19: good goal progress 06/02/20: STG Duration goal met Long-Term Goal (LTG) Patient will be able to perform a floor transfer with SB to min assist 10/31/19: max assist today 01/02/20: has not been willing to try since 10/31/19 06/02/20: does not feel strong enough to try yet. LTG Duration 08/24/20 Three Impairment weakness left UE and LE s/p CVA Long-Term Goal (LTG) Improve functional strength in left LE, as evidenced by ability to move from sit > < stand without use of UE's. 10/31/19: OT starts tomorrow. Good progress with sit to stand, though mostly using right UE and LE 01/02/20: Improving ability to perform, able to increase weight-bearing through left LE with cues, but still some use of right UE 05/26/20: With manual and visual feedback patient able to transfer sit to stand with only CG A. LTG Duration 08/24/20 Two Impairment balance dysfunction with high risk for falls Occupational Health Nurse Manager Goal (LTG) Improve balance as evidenced by improvement in Tinnetti balance and gait score to low fall risk range to improve safety in the home and community. 10/31/19: remains high risk for falls 01/02/20: some improvement but still in high risk category 05/26/20: Tinetti score in high risk category LTG Duration 08/24/20 One Impairment requires armaan-walker for gait, limited to household gait Occupational Health Nurse Manager Goal (LTG) Patient able to ambulate with least restrictive device for functional community distances to improve her functional independence and quality of life. 10/30/19: no progress due to Covid 19. 11/02/19: able to ambulate with quad cane but with very slow speed, household distances, very short community distances . 05/26/20: Now able to ambulate with use of single point cane and use of L4 theraband wrapped around left LE to facilitate left LE internal rotation for improved alignment. Patient unable to don the theraband on her own. Gait is for short distances and very slow at 39 ft in 2 min. LTG Duration 08/24/20 Assessment Summary Assessment Continued focus on LLE hip rotation in WB and NWB. Metronome for 45 bpm enrike was more successful than previous attempts at 50 bpm. Physical Therapy Plan Frequency and Duration Frequency of Treatment 2x/Week Duration of Treatment 12 wks Plan of Care Start Date 05/26/20 Plan of Care End Date 08/24/20 Therapeutic Interventions Therapeutic Interventions Aquatic Therapy,Balance Training,Gait Training,Home Exercise Program,Neuromuscular Re-education,Orthotic/ Prosthetic Management,Patient/ Caregiver Education,Self-Care/ Home Management,Taping, Therapeutic Activities, Therapeutic Exercises Modalities Cold Pack/Ice Massage,Hot Packs Next Visit Focus/Plan Next Note Type Treatment Note
--- NOTE | 2020-07-11 10:34 | PT.OTN ---
Current Diagnoses Hemiplegia, unspecified affecting unspecified side (07/11/20) Difficulty in walking, not elsewhere classified (07/11/20) Weakness (07/11/20) History of falling (07/11/20) Physical Therapy Treatment Note PT-OP-A Visit Information Start: 05/28/19 08:11 Freq: Status: Active Protocol: Document 07/11/20 09:51 SP (Rec: 07/11/20 17:31 SP [id number]) Out-Patient Physical Therapy Visit Information Visit Information Visit Type Treatment Note Visit Note No caregiver present this tx, mom provided transportation today. Visit Start Time 09:51 Visit Stop Time 10:34 Total Visit Minutes 43 Visit Number 50 Number of INFORMATION ARCHITECT Visits 1 PT-OP-B Current Condition Start: 05/28/19 08:11 Freq: Status: Active Protocol: Document 06/04/20 11:15 SAK (Rec: 06/05/20 16:34 SAK [id number]) Current Condition History of Current Condition Onset Date 2014 Current Complaints weakness, requires assistance with all mobility and household tasks History of Current Condition Reports that she suffered a stroke in 2014 after surgery for brain aneurysm. CVA caused weakness on the left side of her body, gait and balance difficulty, seizures. PT-OP-C Subjective Start: 05/28/19 08:11 Freq: Status: Active Protocol: Document 07/11/20 09:51 SP (Rec: 07/11/20 17:31 SP [id number]) OP-PT Subjective Patient Comments Patient Comments Pt reported doing well today and wanted to work on walking and stairs near the front door and be sure to incorporate bike due to not having help to get on hers at home. Pt verbalized to be sure when questioning caregiver Lena regarding safe patient handling to be sure to include pt in the conversation so when she is at home working together they are both in understanding of proper form of activity being taught. PT-OP-D Balance Start: 05/28/19 08:11 Freq: Status: Active Protocol: Document 05/29/19 14:30 SAK (Rec: 05/30/19 14:24 SAK [id number]) OP-PT Balance Assessment Sitting Balance Static Sitting Balance Ability Good Dynamic Sitting Balance Ability Fair Standing Balance Static Standing Balance Ability Good Dynamic Standing Balance Ability Fair Device Used hemiwalker right Tinetti Balance Assessment Sitting Balance Sitting Balance Steady, safe Arising from Chair Attempts to Arise Able, requires >1 attempt Standing Balance Immediate Standing Balance Steady with support Standing Balance Steady, wide stance Nudged Response Begins to fall Standing with Eyes Closed Unsteady Turning Step Pattern Turning 360 Degrees Discontinuous steps Stability Turning 360 Degrees Unsteady, grabs/staggers Sitting Down Sitting Down Uses arms or unsteady Gait and Step Initiation of Gait Hesitancy, mult. attempts Right Foot Step Length Does not pass stance ft. Right Foot Step Height Does not clear floor Left Foot Step Length Does not pass stance foot Left Foot Step Height Does not clear floor Step Description Step Symmetry Step length not equal Gait Description Path Description Mild/moderate deviation Trunk Description Marked sway or uses aide Walking Stance Heels apart Scoring and Interpretation Tinetti Composite Score (points) 6 Interpretation of Scores High risk for falls(< 19) Herrera Fall Scale Copyright Permission PT-OP-E Functional Tests Start: 05/28/19 08:11 Freq: Status: Active Protocol: Document 05/26/20 11:15 [facility] (Rec: 05/26/20 17:04 [facility] [id number]) Functional Tests 2 Minute Walk Test Distance 39 ft Device Used single point cane Comments derotation application of level 4 theraband to decrease excess ER right LE PT-OP-G Mobility & Gait Start: 05/28/19 08:11 Freq: Status: Active Protocol: Document 05/26/20 11:15 SAK (Rec: 05/26/20 17:04 [facility] [id number]) OP Mobility Evaluation Bed Mobility Rolling min assist to right CGA to left Supine to and from Sit min assist to right CGA to left Transfers Sit to Stand CGA to min assist without UE use Bed to Chair Transfers requires use of right UE but able to do with SBA Floor Transfers unable PT-OP-H Neuro Start: 05/28/19 08:11 Freq: Status: Active Protocol: Document 05/29/19 14:30 SAK (Rec: 05/30/19 14:24 [facility] [id number]) Sensation Evaluation Gross Sensation Gross Sensation Left UE Impaired,Left LE Impaired Sensation Description Paresthesia,Numbness Coordination Evaluation Lower Extremity Tests Left Alternate Heel to Knee; Heel to Toe Test Moderate Impairment Heel on Boles Test Moderate Impairment Foot Tapping Test Moderate Impairment PT-OP-K Range of Motion Start: 05/28/19 08:11 Freq: Status: Active Protocol: Document 05/26/20 11:15 SAK (Rec: 05/26/20 17:04 SAK [id number]) Hip Goniometric Range of Motion Hip jake Hip ROM WFL Yes Comments actively right LE, passively left LE Knee Goniometric Range of Motion Knee jake Knee ROM WFL Yes Ankle and Foot Goniometric Range of Motion Ankle and Foot Left Passive Ankle/Foot ROM WFL No Left Active Ankle/Foot ROM WFL No PT-OP-M Strength Start: 05/28/19 08:11 Freq: Status: Active Protocol: Document 05/26/20 11:15 SAK (Rec: 05/26/20 17:04 SAK [id number]) Hip Strength Hip Manual Muscle Testing Left Flexion (L2) 3- Fair- Extension (S1) 2 Poor Abduction 2+ Poor+ External Rotation 3- Fair- Internal Rotation 3+ Fair+ Right Flexion (L2) 4 Good Extension (S1) 4- Good- Abduction 4 Good External Rotation 3+ Fair+ Internal Rotation 4- Good- PT-OP-Q Treatments Start: 05/28/19 08:11 Freq: Status: Active Protocol: Document 07/11/20 09:51 SP (Rec: 07/11/20 17:31 SP [id number]) Therapeutic Exercises Standing Exercises minisquats Standing Exercise Name squats incl w/ right foot on green foam to facil increased weight-bearing L Equipment Used 18 chair Reps/Minutes 10x Comments no AFO; mirror for visual feedback f/b/side stepping Standing Exercise Name f/b/side stepping Equipment Used //bar; w/ AFO Reps/Minutes 10 ft x2 laps each direction Gait Training Gait Activity gait w/ AD no wrapping Description w/ TB clockwise wrapping w/2 pt gait Device Used QC Level of Assistance SBA Surface stable Distance/Duration 200 ft Treatment Focus L knee flexion, hip IR and initiated 2pt gait Comments good patterning, CGA initially then close SBA as distance progressed. pre-gait weight shifts Description AP, side to side Device Used no AFO; bar at right or left Level of Assistance CG, verbal cues Surface firm Distance/Duration //bar Treatment Focus increased weight bearing left LE Comments preparation phase with midline alignment followed by weight shifts PT-OP-R Modalities Start: 05/28/19 08:11 Freq: Status: Active Protocol: Document 03/19/20 10:31 SAK (Rec: 03/19/20 11:17 SAK [id number]) Electric Stimulation Electric Stimulation Functional Electric Stimulation Body Location left anterior tib Duration (Minutes) 10 Intensity 52 Contraction Type Normal Cycle 10 Ramp 2.0 Patient Position Sitting Comments Cypriot stim PT-OP-T Assessment and Plan Start: 05/28/19 08:11 Freq: Status: Active Protocol: Document 07/11/20 09:51 SP (Rec: 07/11/20 17:31 SP [id number]) Physical Therapy Assessment Goals Five Impairment gait speed not adequate for safe community ambulation Nursing Home Goal (LTG) Patient able to ambulate 300' in 6 min 06/02/20: 134' LTG Duration 08/24/20 Four Impairment requires assistance with bed mobility and transfers Short Term Goal (STG) Patient will be able to perform all bed mobility independently to improve her functional independence. 10/31/19: good goal progress 06/02/20: STG Duration goal met Cost Engineer Goal (LTG) Patient will be able to perform a floor transfer with SB to min assist 10/31/19: max assist today 01/02/20: has not been willing to try since 10/31/19 06/02/20: does not feel strong enough to try yet. LTG Duration 08/24/20 Three Impairment weakness left UE and LE s/p CVA Nursing Home Goal (LTG) Improve functional strength in left LE, as evidenced by ability to move from sit > < stand without use of UE's. 10/31/19: OT starts tomorrow. Good progress with sit to stand, though mostly using right UE and LE 01/02/20: Improving ability to perform, able to increase weight-bearing through left LE with cues, but still some use of right UE 05/26/20: With manual and visual feedback patient able to transfer sit to stand with only CG A. LTG Duration 08/24/20 Two Impairment balance dysfunction with high risk for falls Nursing Home Goal (LTG) Improve balance as evidenced by improvement in Tinnetti balance and gait score to low fall risk range to improve safety in the home and community. 10/31/19: remains high risk for falls 01/02/20: some improvement but still in high risk category 05/26/20: Tinetti score in high risk category LTG Duration 08/24/20 One Impairment requires armaan-walker for gait, limited to household gait Cost Engineer Goal (LTG) Patient able to ambulate with least restrictive device for functional community distances to improve her functional independence and quality of life. 10/30/19: no progress due to Covid 19. 11/02/19: able to ambulate with quad cane but with very slow speed, household distances, very short community distances . 05/26/20: Now able to ambulate with use of single point cane and use of L4 theraband wrapped around left LE to facilitate left LE internal rotation for improved alignment. Patient unable to don the theraband on her own. Gait is for short distances and very slow at 39 ft in 2 min. LTG Duration 08/24/20 Assessment Summary Assessment Tx focused on stair mgt, 3>2pt gait using QC and blue Tb clockwise wrap with good stability CG> SBA. Assessed in //bars as well no wrapping with increased cuing and challenged with maintaining L hip IR and soft knee as distance progressed. Recommended to perform 2pt gait w/ TB for safety support with verbal confirmation. Pt improving in quad and glut facilitation w/ support of TB during stair mgt and 2pt gait while using QC today. Physical Therapy Plan Frequency and Duration Frequency of Treatment 2x/Week Duration of Treatment 12 wks Plan of Care Start Date 05/26/20 Plan of Care End Date 08/24/20 Therapeutic Interventions Therapeutic Interventions Aquatic Therapy,Balance Training,Gait Training,Home Exercise Program,Neuromuscular Re-education,Orthotic/ Prosthetic Management,Patient/ Caregiver Education,Self-Care/ Home Management,Taping, Therapeutic Activities, Therapeutic Exercises Modalities Cold Pack/Ice Massage,Hot Packs Next Visit Focus/Plan Next Note Type Treatment Note Next Visit Plan Assess response to last tx: 2 pt gait, stair mgt, standing w /out brace wt shifting. Continue next tx PT POC: Metronome for gait training, shuttle leg press, especially single leg on left . Continue stair training. Assist with new sling trng if needed with pt and caregiver.
--- NOTE | 2020-07-14 17:35 | PT.OTN ---
Current Diagnoses Hemiplegia, unspecified affecting unspecified side (07/14/20) Difficulty in walking, not elsewhere classified (07/14/20) Weakness (07/14/20) History of falling (07/14/20) Physical Therapy Treatment Note PT-OP-A Visit Information Start: 05/28/19 08:11 Freq: Status: Active Protocol: Document 07/14/20 10:28 SAK (Rec: 07/14/20 12:58 [facility] [id number]) Out-Patient Physical Therapy Visit Information Visit Information Visit Type Treatment Note Visit Start Time 10:30 Visit Stop Time 11:15 Total Visit Minutes 45 Visit Number 51 Number of TYPE CUTTER Visits 0 PT-OP-B Current Condition Start: 05/28/19 08:11 Freq: Status: Active Protocol: Document 06/04/20 11:15 SAK (Rec: 06/05/20 16:34 [facility] [id number]) Current Condition History of Current Condition Onset Date 2014 Current Complaints weakness, requires assistance with all mobility and household tasks History of Current Condition Reports that she suffered a stroke in 2014 after surgery for brain aneurysm. CVA caused weakness on the left side of her body, gait and balance difficulty, seizures. PT-OP-C Subjective Start: 05/28/19 08:11 Freq: Status: Active Protocol: Document 07/14/20 10:28 SAK (Rec: 07/14/20 12:58 [facility] [id number]) OP-PT Subjective Patient Comments Patient Comments Feeling tired and depressed today, stateshe is not sure she can do very much today. REports her whole left side hurts. Having difficulty getting scheduled with Dr. Valdez. PT-OP-D Balance Start: 05/28/19 08:11 Freq: Status: Active Protocol: Document 05/29/19 14:30 SAK (Rec: 05/30/19 14:24 SAK [id number]) OP-PT Balance Assessment Sitting Balance Static Sitting Balance Ability Good Dynamic Sitting Balance Ability Fair Standing Balance Static Standing Balance Ability Good Dynamic Standing Balance Ability Fair Device Used hemiwalker right Tinetti Balance Assessment Sitting Balance Sitting Balance Steady, safe Arising from Chair Attempts to Arise Able, requires >1 attempt Standing Balance Immediate Standing Balance Steady with support Standing Balance Steady, wide stance Nudged Response Begins to fall Standing with Eyes Closed Unsteady Turning Step Pattern Turning 360 Degrees Discontinuous steps Stability Turning 360 Degrees Unsteady, grabs/staggers Sitting Down Sitting Down Uses arms or unsteady Gait and Step Initiation of Gait Hesitancy, mult. attempts Right Foot Step Length Does not pass stance ft. Right Foot Step Height Does not clear floor Left Foot Step Length Does not pass stance foot Left Foot Step Height Does not clear floor Step Description Step Symmetry Step length not equal Gait Description Path Description Mild/moderate deviation Trunk Description Marked sway or uses aide Walking Stance Heels apart Scoring and Interpretation Tinetti Composite Score (points) 6 Interpretation of Scores High risk for falls(< 19) Herrera Fall Scale Copyright Permission PT-OP-E Functional Tests Start: 05/28/19 08:11 Freq: Status: Active Protocol: Document 05/26/20 11:15 [facility] (Rec: 05/26/20 17:04 [facility] [id number]) Functional Tests 2 Minute Walk Test Distance 39 ft Device Used single point cane Comments derotation application of level 4 theraband to decrease excess ER right LE PT-OP-G Mobility & Gait Start: 05/28/19 08:11 Freq: Status: Active Protocol: Document 05/26/20 11:15 [facility] (Rec: 05/26/20 17:04 [facility] [id number]) OP Mobility Evaluation Bed Mobility Rolling min assist to right CGA to left Supine to and from Sit min assist to right CGA to left Transfers Sit to Stand CGA to min assist without UE use Bed to Chair Transfers requires use of right UE but able to do with SBA Floor Transfers unable PT-OP-H Neuro Start: 05/28/19 08:11 Freq: Status: Active Protocol: Document 05/29/19 14:30 [facility] (Rec: 05/30/19 14:24 [facility] [id number]) Sensation Evaluation Gross Sensation Gross Sensation Left UE Impaired,Left LE Impaired Sensation Description Paresthesia,Numbness Coordination Evaluation Lower Extremity Tests Left Alternate Heel to Knee; Heel to Toe Test Moderate Impairment Heel on Boles Test Moderate Impairment Foot Tapping Test Moderate Impairment PT-OP-K Range of Motion Start: 05/28/19 08:11 Freq: Status: Active Protocol: Document 05/26/20 11:15 [facility] (Rec: 05/26/20 17:04 [facility] [id number]) Hip Goniometric Range of Motion Hip jake Hip ROM WFL Yes Comments actively right LE, passively left LE Knee Goniometric Range of Motion Knee jake Knee ROM WFL Yes Ankle and Foot Goniometric Range of Motion Ankle and Foot Left Passive Ankle/Foot ROM WFL No Left Active Ankle/Foot ROM WFL No PT-OP-M Strength Start: 05/28/19 08:11 Freq: Status: Active Protocol: Document 05/26/20 11:15 [facility] (Rec: 05/26/20 17:04 [facility] [id number]) Hip Strength Hip Manual Muscle Testing Left Flexion (L2) 3- Fair- Extension (S1) 2 Poor Abduction 2+ Poor+ External Rotation 3- Fair- Internal Rotation 3+ Fair+ Right Flexion (L2) 4 Good Extension (S1) 4- Good- Abduction 4 Good External Rotation 3+ Fair+ Internal Rotation 4- Good- PT-OP-Q Treatments Start: 05/28/19 08:11 Freq: Status: Active Protocol: Document 07/14/20 10:28 [facility] (Rec: 07/14/20 12:58 [facility] [id number]) Cardio Equipment Recumbent Stepper (Sci-Fit) Duration (Minutes) 10 Resistance 1 Seat Position 8 Other 1.0 mile, AFO loosened, assist for left LE alignment, emphasis RPM 50 Therapeutic Exercises Standing Exercises weight-shifting Standing Exercise Name side to side, front to back Equipment Used no AFO Reps/Minutes 2 Comments mirror for visual feedback for touching hip to bar each side w/ side to anaya minisquats Standing Exercise Name squats Equipment Used 18 chair Reps/Minutes 10x Comments no AFO; mirror for visual feedback Gait Training Gait Activity gait w/ AD no wrapping Description w/ TB clockwise wrapping w/2 pt gait Device Used QC Level of Assistance SBA Surface stable Distance/Duration 200 ft Treatment Focus L knee flexion, hip IR pre-gait weight shifts Description AP, side to side Device Used no AFO; bar at right or left Level of Assistance CG, verbal cues Surface firm Distance/Duration //bar Treatment Focus increased weight bearing left LE Comments preparation phase with midline alignment followed by weight shifts 1 Description level surface (Blue TB spiral wrap) Device Used quad cane Level of Assistance close SBA, Metronome at 45 bpm Surface level floor, firm Distance/Duration 75' Treatment Focus L hip IR and decrease L knee hyperextension, pacing, metronome for pacing Comments 1. L4 TB tied at left shoe, wrapped around clockwise LE with gait belt to assist with internal rotation foot/ hip facilitation to allow LLE proper alignment. 2. metronome at 45 bpm for emphasis on increased LLE weightbearing and stance time. PT-OP-R Modalities Start: 05/28/19 08:11 Freq: Status: Active Protocol: Document 03/19/20 10:31 SAK (Rec: 03/19/20 11:17 SAK [id number]) Electric Stimulation Electric Stimulation Functional Electric Stimulation Body Location left anterior tib Duration (Minutes) 10 Intensity 52 Contraction Type Normal Cycle 10 Ramp 2.0 Patient Position Sitting Comments [place]ron[place] stim PT-OP-T Assessment and Plan Start: 05/28/19 08:11 Freq: Status: Active Protocol: Document 07/14/20 10:28 SAK (Rec: 07/14/20 12:58 SAK [id number]) Physical Therapy Assessment Goals Five Impairment gait speed not adequate for safe community ambulation Occupational Health Nurse Supervisor Goal (LTG) Patient able to ambulate 300' in 6 min 06/02/20: 134' LTG Duration 08/24/20 Four Impairment requires assistance with bed mobility and transfers Short Term Goal (STG) Patient will be able to perform all bed mobility independently to improve her functional independence. 10/31/19: good goal progress 06/02/20: STG Duration goal met Occupational Health Nurse Supervisor Goal (LTG) Patient will be able to perform a floor transfer with SB to min assist 10/31/19: max assist today 01/02/20: has not been willing to try since 10/31/19 06/02/20: does not feel strong enough to try yet. LTG Duration 08/24/20 Three Impairment weakness left UE and LE s/p CVA Intermediate Goal (LTG) Improve functional strength in left LE, as evidenced by ability to move from sit > < stand without use of UE's. 10/31/19: OT starts tomorrow. Good progress with sit to stand, though mostly using right UE and LE 01/02/20: Improving ability to perform, able to increase weight-bearing through left LE with cues, but still some use of right UE 05/26/20: With manual and visual feedback patient able to transfer sit to stand with only CG A. LTG Duration 08/24/20 Two Impairment balance dysfunction with high risk for falls Intermediate Goal (LTG) Improve balance as evidenced by improvement in Tinnetti balance and gait score to low fall risk range to improve safety in the home and community. 10/31/19: remains high risk for falls 01/02/20: some improvement but still in high risk category 05/26/20: Tinetti score in high risk category LTG Duration 08/24/20 One Impairment requires armaan-walker for gait, limited to household gait Intermediate Goal (LTG) Patient able to ambulate with least restrictive device for functional community distances to improve her functional independence and quality of life. 10/30/19: no progress due to Covid 19. 11/02/19: able to ambulate with quad cane but with very slow speed, household distances, very short community distances . 05/26/20: Now able to ambulate with use of single point cane and use of L4 theraband wrapped around left LE to facilitate left LE internal rotation for improved alignment. Patient unable to don the theraband on her own. Gait is for short distances and very slow at 39 ft in 2 min. LTG Duration 08/24/20 Assessment Summary Assessment Initially patient very negative about any therapy activities, frustrated by looking at herself in the mirror expressing frustration with her weight. Refused shuttle leg press. AFter Sci- Fit patient reported feeling less depressed and having a little more energy than when she started her session today. Getting fit with new shoes which may be helpful for biomechanics of gait, pain control. May benefit from session focused on flexibility , mat ex with review for HEP. Physical Therapy Plan Frequency and Duration Frequency of Treatment 2x/Week Duration of Treatment 12 wks Plan of Care Start Date 05/26/20 Plan of Care End Date 08/24/20 Therapeutic Interventions Therapeutic Interventions Aquatic Therapy,Balance Training,Gait Training,Home Exercise Program,Neuromuscular Re-education,Orthotic/ Prosthetic Management,Patient/ Caregiver Education,Self-Care/ Home Management,Taping, Therapeutic Activities, Therapeutic Exercises Modalities Cold Pack/Ice Massage,Hot Packs Next Visit Focus/Plan Next Note Type Treatment Note Next Visit Plan Assess new footwear, compliance to HEP. Metronome with gait training as tolerated, less use of mirror. Consider mat ex for good portion of session including flexibility ex and strengthening with training of caregiver
--- NOTE | 2020-07-16 17:07 | PT.OTN ---
Current Diagnoses Hemiplegia, unspecified affecting unspecified side (07/16/20) Difficulty in walking, not elsewhere classified (07/16/20) Weakness (07/16/20) History of falling (07/16/20) Physical Therapy Treatment Note PT-OP-A Visit Information Start: 05/28/19 08:11 Freq: Status: Active Protocol: Document 07/16/20 10:31 SAK (Rec: 07/16/20 11:21 SAK [id number]) Out-Patient Physical Therapy Visit Information Visit Information Visit Type Treatment Note Visit Start Time 10:30 Visit Stop Time 11:15 Total Visit Minutes 45 Visit Number 51 Number of AIRCRAFT REFUELLER Visits 0 PT-OP-B Current Condition Start: 05/28/19 08:11 Freq: Status: Active Protocol: Document 06/04/20 11:15 SAK (Rec: 06/05/20 16:34 SAK [id number]) Current Condition History of Current Condition Onset Date 2014 Current Complaints weakness, requires assistance with all mobility and household tasks History of Current Condition Reports that she suffered a stroke in 2014 after surgery for brain aneurysm. CVA caused weakness on the left side of her body, gait and balance difficulty, seizures. PT-OP-C Subjective Start: 05/28/19 08:11 Freq: Status: Active Protocol: Document 07/16/20 10:31 SAK (Rec: 07/16/20 11:21 SAK [id number]) OP-PT Subjective Patient Comments Patient Comments no new c/o. During discussion about dogs patient reported she considered getting an assistance dog previously but never followed up. Not entirely sure what the dog would be able to do for her and concerned about it not being able to be a pet. Receptive to having therapy dog come to PT session to be able to help her decide if something she wants to do. Measured for new shoes, but hasn't received yet. PT-OP-D Balance Start: 05/28/19 08:11 Freq: Status: Active Protocol: Document 05/29/19 14:30 SAK (Rec: 05/30/19 14:24 SAK [id number]) OP-PT Balance Assessment Sitting Balance Static Sitting Balance Ability Good Dynamic Sitting Balance Ability Fair Standing Balance Static Standing Balance Ability Good Dynamic Standing Balance Ability Fair Device Used hemiwalker right Tinetti Balance Assessment Sitting Balance Sitting Balance Steady, safe Arising from Chair Attempts to Arise Able, requires >1 attempt Standing Balance Immediate Standing Balance Steady with support Standing Balance Steady, wide stance Nudged Response Begins to fall Standing with Eyes Closed Unsteady Turning Step Pattern Turning 360 Degrees Discontinuous steps Stability Turning 360 Degrees Unsteady, grabs/staggers Sitting Down Sitting Down Uses arms or unsteady Gait and Step Initiation of Gait Hesitancy, mult. attempts Right Foot Step Length Does not pass stance ft. Right Foot Step Height Does not clear floor Left Foot Step Length Does not pass stance foot Left Foot Step Height Does not clear floor Step Description Step Symmetry Step length not equal Gait Description Path Description Mild/moderate deviation Trunk Description Marked sway or uses aide Walking Stance Heels apart Scoring and Interpretation Tinetti Composite Score (points) 6 Interpretation of Scores High risk for falls(< 19) Herrera Fall Scale Copyright Permission PT-OP-E Functional Tests Start: 05/28/19 08:11 Freq: Status: Active Protocol: Document 05/26/20 11:15 SAK (Rec: 05/26/20 17:04 [facility] [id number]) Functional Tests 2 Minute Walk Test Distance 39 ft Device Used single point cane Comments derotation application of level 4 theraband to decrease excess ER right LE PT-OP-G Mobility & Gait Start: 05/28/19 08:11 Freq: Status: Active Protocol: Document 05/26/20 11:15 SAK (Rec: 05/26/20 17:04 [facility] [id number]) OP Mobility Evaluation Bed Mobility Rolling min assist to right CGA to left Supine to and from Sit min assist to right CGA to left Transfers Sit to Stand CGA to min assist without UE use Bed to Chair Transfers requires use of right UE but able to do with SBA Floor Transfers unable PT-OP-H Neuro Start: 05/28/19 08:11 Freq: Status: Active Protocol: Document 05/29/19 14:30 SAK (Rec: 05/30/19 14:24 [facility] [id number]) Sensation Evaluation Gross Sensation Gross Sensation Left UE Impaired,Left LE Impaired Sensation Description Paresthesia,Numbness Coordination Evaluation Lower Extremity Tests Left Alternate Heel to Knee; Heel to Toe Test Moderate Impairment Heel on Boles Test Moderate Impairment Foot Tapping Test Moderate Impairment PT-OP-K Range of Motion Start: 05/28/19 08:11 Freq: Status: Active Protocol: Document 05/26/20 11:15 SAK (Rec: 05/26/20 17:04 [facility] [id number]) Hip Goniometric Range of Motion Hip jake Hip ROM WFL Yes Comments actively right LE, passively left LE Knee Goniometric Range of Motion Knee jake Knee ROM WFL Yes Ankle and Foot Goniometric Range of Motion Ankle and Foot Left Passive Ankle/Foot ROM WFL No Left Active Ankle/Foot ROM WFL No PT-OP-M Strength Start: 05/28/19 08:11 Freq: Status: Active Protocol: Document 05/26/20 11:15 [facility] (Rec: 05/26/20 17:04 [facility] [id number]) Hip Strength Hip Manual Muscle Testing Left Flexion (L2) 3- Fair- Extension (S1) 2 Poor Abduction 2+ Poor+ External Rotation 3- Fair- Internal Rotation 3+ Fair+ Right Flexion (L2) 4 Good Extension (S1) 4- Good- Abduction 4 Good External Rotation 3+ Fair+ Internal Rotation 4- Good- PT-OP-Q Treatments Start: 05/28/19 08:11 Freq: Status: Active Protocol: Document 07/16/20 10:31 [facility] (Rec: 07/16/20 11:21 [facility] [id number]) Cardio Equipment Recumbent Stepper (Sci-Fit) Duration (Minutes) 10 Resistance 1 Seat Position 8 Other 1.0 mile, AFO loosened, assist for left LE alignment, emphasis RPM 50 Gym Equipment Shuttle Recovery Unilateral Squats Details LLE Resistance 25# Shuttle Recovery Platform Stable Reps/Time verbal and manual cues for left LE alignment, avoid knee hyperext & hip ER Bilateral Squats Details bilateral squats w/ ball between knees, glut fac heel press Resistance 50# Reps/Time 2 x 10 reps; cues for LLE hip rotation Gait Training Gait Activity stairs Description 4 stairs Device Used right railing, AFO, TB wrap Level of Assistance SBA to min assist, cues for alternating pattern Distance/Duration 4 stairs Treatment Focus alternating pattern Comments Patient has difficulty with alternating pattern, difficulty trusting left LE though improving. gait w/ AD no wrapping Description w/ TB clockwise wrapping w/2 pt gait Device Used QC Level of Assistance SBA Surface stable Distance/Duration 50 ft Treatment Focus L knee flexion, hip IR pre-gait weight shifts Description AP, side to side Device Used no AFO; bar at right or left Level of Assistance CG, verbal cues Surface firm Distance/Duration //bar Treatment Focus increased weight bearing left LE Comments preparation phase with midline alignment followed by weight shifts 1 Description level surface (Blue TB spiral wrap) Device Used quad cane Level of Assistance close SBA, Metronome at 45 bpm Surface level floor, firm Distance/Duration 75' Treatment Focus L hip IR and decrease L knee hyperextension, pacing, metronome for pacing Comments 1. L4 TB tied at left shoe, wrapped around clockwise LE with gait belt to assist with internal rotation foot/ hip facilitation to allow LLE proper alignment. 2. metronome at 45 bpm for emphasis on increased LLE weightbearing and stance time. PT-OP-R Modalities Start: 05/28/19 08:11 Freq: Status: Active Protocol: Document 03/19/20 10:31 [facility] (Rec: 03/19/20 11:17 [facility] [id number]) Electric Stimulation Electric Stimulation Functional Electric Stimulation Body Location left anterior tib Duration (Minutes) 10 Intensity 52 Contraction Type Normal Cycle 10/10 Ramp 2.0 Patient Position Sitting Comments [place] stim PT-OP-T Assessment and Plan Start: 05/28/19 08:11 Freq: Status: Active Protocol: Document 07/16/20 10:31 [facility] (Rec: 07/16/20 11:21 [facility] [id number]) Physical Therapy Assessment Goals Five Impairment gait speed not adequate for safe community ambulation Phys Asst Goal (LTG) Patient able to ambulate 300' in 6 min 06/02/20: 134' LTG Duration 08/24/20 Four Impairment requires assistance with bed mobility and transfers Short Term Goal (STG) Patient will be able to perform all bed mobility independently to improve her functional independence. 10/31/19: good goal progress 06/02/20: STG Duration goal met Correction Goal (LTG) Patient will be able to perform a floor transfer with SB to min assist 10/31/19: max assist today 01/02/20: has not been willing to try since 10/31/19 06/02/20: does not feel strong enough to try yet. LTG Duration 08/24/20 Three Impairment weakness left UE and LE s/p CVA Phys Asst Goal (LTG) Improve functional strength in left LE, as evidenced by ability to move from sit > < stand without use of UE's. 10/31/19: OT starts tomorrow. Good progress with sit to stand, though mostly using right UE and LE 01/02/20: Improving ability to perform, able to increase weight-bearing through left LE with cues, but still some use of right UE 05/26/20: With manual and visual feedback patient able to transfer sit to stand with only CG A. LTG Duration 08/24/20 Two Impairment balance dysfunction with high risk for falls Correction Goal (LTG) Improve balance as evidenced by improvement in Tinnetti balance and gait score to low fall risk range to improve safety in the home and community. 10/31/19: remains high risk for falls 01/02/20: some improvement but still in high risk category 05/26/20: Tinetti score in high risk category LTG Duration 08/24/20 One Impairment requires armaan-walker for gait, limited to household gait Phys Asst Goal (LTG) Patient able to ambulate with least restrictive device for functional community distances to improve her functional independence and quality of life. 10/30/19: no progress due to Covid 19. 11/02/19: able to ambulate with quad cane but with very slow speed, household distances, very short community distances . 05/26/20: Now able to ambulate with use of single point cane and use of L4 theraband wrapped around left LE to facilitate left LE internal rotation for improved alignment. Patient unable to don the theraband on her own. Gait is for short distances and very slow at 39 ft in 2 min. LTG Duration 08/24/20 Assessment Summary Assessment Patient more positive today, interested in exploring possibility of assistance dog, and agreeable to have PT contact therapy dog plant maintenance supervisor to have come to PT session if allowed during Covid. Physical Therapy Plan Frequency and Duration Frequency of Treatment 2x/Week Duration of Treatment 12 wks Plan of Care Start Date 05/26/20 Plan of Care End Date 08/24/20 Therapeutic Interventions Therapeutic Interventions Aquatic Therapy,Balance Training,Gait Training,Home Exercise Program,Neuromuscular Re-education,Orthotic/ Prosthetic Management,Patient/ Caregiver Education,Self-Care/ Home Management,Taping, Therapeutic Activities, Therapeutic Exercises Modalities Cold Pack/Ice Massage,Hot Packs Next Visit Focus/Plan Next Note Type Treatment Note Next Visit Plan Possible therapy dog during session, continue gait training on level surfaces and stairs, strengthening, neuro re-ed. If c/o pain consider mat exercises to include flexibility with training of caregiver.
--- NOTE | 2020-07-21 10:57 | PT-OP ANOTE ---
cancelled PT appointment due to recent Covid vaccination, not feeling well
--- NOTE | 2020-07-23 16:45 | PT.OTN ---
Current Diagnoses Hemiplegia, unspecified affecting unspecified side (07/23/20) Difficulty in walking, not elsewhere classified (07/23/20) Weakness (07/23/20) History of falling (07/23/20) Physical Therapy Treatment Note PT-OP-A Visit Information Start: 05/28/19 08:11 Freq: Status: Active Protocol: Document 07/23/20 10:37 SAK (Rec: 07/23/20 11:13 SAK [id number]) Out-Patient Physical Therapy Visit Information Visit Information Visit Type Treatment Note Visit Note shortened treatment due to patient doctor appt Visit Start Time 10:31 Visit Stop Time 11:10 Total Visit Minutes 39 Visit Number 52 PT-OP-B Current Condition Start: 05/28/19 08:11 Freq: Status: Active Protocol: Document 06/04/20 11:15 SAK (Rec: 06/05/20 16:34 SAK [id number]) Current Condition History of Current Condition Onset Date 2014 Current Complaints weakness, requires assistance with all mobility and household tasks History of Current Condition Reports that she suffered a stroke in 2014 after surgery for brain aneurysm. CVA caused weakness on the left side of her body, gait and balance difficulty, seizures. PT-OP-C Subjective Start: 05/28/19 08:11 Freq: Status: Active Protocol: Document 07/23/20 10:37 SAK (Rec: 07/23/20 11:13 SAK [id number]) OP-PT Subjective Patient Comments Patient Comments Repports couldn't hardly get out of bed after first Covid vaccine shot for a few days. Still tired today, joints achy . PT-OP-D Balance Start: 05/28/19 08:11 Freq: Status: Active Protocol: Document 05/29/19 14:30 SAK (Rec: 05/30/19 14:24 SAK [id number]) OP-PT Balance Assessment Sitting Balance Static Sitting Balance Ability Good Dynamic Sitting Balance Ability Fair Standing Balance Static Standing Balance Ability Good Dynamic Standing Balance Ability Fair Device Used [facility] right Tinetti Balance Assessment Sitting Balance Sitting Balance Steady, safe Arising from Chair Attempts to Arise Able, requires >1 attempt Standing Balance Immediate Standing Balance Steady with support Standing Balance Steady, wide stance Nudged Response Begins to fall Standing with Eyes Closed Unsteady Turning Step Pattern Turning 360 Degrees Discontinuous steps Stability Turning 360 Degrees Unsteady, grabs/staggers Sitting Down Sitting Down Uses arms or unsteady Gait and Step Initiation of Gait Hesitancy, mult. attempts Right Foot Step Length Does not pass stance ft. Right Foot Step Height Does not clear floor Left Foot Step Length Does not pass stance foot Left Foot Step Height Does not clear floor Step Description Step Symmetry Step length not equal Gait Description Path Description Mild/moderate deviation Trunk Description Marked sway or uses aide Walking Stance Heels apart Scoring and Interpretation Tinetti Composite Score (points) 6 Interpretation of Scores High risk for falls(< 19) Herrera Fall Scale Copyright Permission PT-OP-E Functional Tests Start: 05/28/19 08:11 Freq: Status: Active Protocol: Document 05/26/20 11:15 SAK (Rec: 05/26/20 17:04 [facility] [id number]) Functional Tests 2 Minute Walk Test Distance 39 ft Device Used single point cane Comments derotation application of level 4 theraband to decrease excess ER right LE PT-OP-G Mobility & Gait Start: 05/28/19 08:11 Freq: Status: Active Protocol: Document 05/26/20 11:15 SAK (Rec: 05/26/20 17:04 [facility] [id number]) OP Mobility Evaluation Bed Mobility Rolling min assist to right CGA to left Supine to and from Sit min assist to right CGA to left Transfers Sit to Stand CGA to min assist without UE use Bed to Chair Transfers requires use of right UE but able to do with SBA Floor Transfers unable PT-OP-H Neuro Start: 05/28/19 08:11 Freq: Status: Active Protocol: Document 05/29/19 14:30 [facility] (Rec: 05/30/19 14:24 [facility] [id number]) Sensation Evaluation Gross Sensation Gross Sensation Left UE Impaired,Left LE Impaired Sensation Description Paresthesia,Numbness Coordination Evaluation Lower Extremity Tests Left Alternate Heel to Knee; Heel to Toe Test Moderate Impairment Heel on Bloes Test Moderate Impairment Foot Tapping Test Moderate Impairment PT-OP-K Range of Motion Start: 05/28/19 08:11 Freq: Status: Active Protocol: Document 05/26/20 11:15 SAK (Rec: 05/26/20 17:04 [facility] [id number]) Hip Goniometric Range of Motion Hip jake Hip ROM WFL Yes Comments actively right LE, passively left LE Knee Goniometric Range of Motion Knee jake Knee ROM WFL Yes Ankle and Foot Goniometric Range of Motion Ankle and Foot Left Passive Ankle/Foot ROM WFL No Left Active Ankle/Foot ROM WFL No PT-OP-M Strength Start: 05/28/19 08:11 Freq: Status: Active Protocol: Document 05/26/20 11:15 [facility] (Rec: 05/26/20 17:04 [facility] [id number]) Hip Strength Hip Manual Muscle Testing Left Flexion (L2) 3- Fair- Extension (S1) 2 Poor Abduction 2+ Poor+ External Rotation 3- Fair- Internal Rotation 3+ Fair+ Right Flexion (L2) 4 Good Extension (S1) 4- Good- Abduction 4 Good External Rotation 3+ Fair+ Internal Rotation 4- Good- PT-OP-Q Treatments Start: 05/28/19 08:11 Freq: Status: Active Protocol: Document 07/23/20 10:37 [facility] (Rec: 07/23/20 11:13 [facility] [id number]) Cardio Equipment Recumbent Stepper (Sci-Fit) Duration (Minutes) 10 Resistance 1 Seat Position 8 Gait Training Gait Activity gait w/ AD no wrapping Description w/ TB clockwise wrapping w/2 pt gait Device Used QC Level of Assistance SBA Surface stable Distance/Duration 50 ft Treatment Focus L knee flexion, hip IR 1 Description level surface (Blue TB spiral wrap) Device Used quad cane Level of Assistance close SBA, Metronome at 45 bpm Surface level floor, firm Distance/Duration 75' Treatment Focus L hip IR and decrease L knee hyperextension, pacing, metronome for pacing Comments 1. L4 TB tied at left shoe, wrapped around clockwise LE with gait belt to assist with internal rotation foot/ hip facilitation to allow LLE proper alignment. 2. metronome at 45 bpm for emphasis on increased LLE weightbearing and stance time. PT-OP-R Modalities Start: 05/28/19 08:11 Freq: Status: Active Protocol: Document 03/19/20 10:31 [facility] (Rec: 03/19/20 11:17 [facility] [id number]) Electric Stimulation Electric Stimulation Functional Electric Stimulation Body Location left anterior tib Duration (Minutes) 10 Intensity 52 Contraction Type Normal Cycle 10/10 Ramp 2.0 Patient Position Sitting Comments Ecuadorean stim PT-OP-T Assessment and Plan Start: 05/28/19 08:11 Freq: Status: Active Protocol: Document 07/23/20 10:37 KRYSTAL (Rec: 07/23/20 11:13 [facility] [id number]) Physical Therapy Assessment Goals Five Impairment gait speed not adequate for safe community ambulation Motion Picture Equipment Supervisor Goal (LTG) Patient able to ambulate 300' in 6 min 06/02/20: 134' LTG Duration 08/24/20 Four Impairment requires assistance with bed mobility and transfers Short Term Goal (STG) Patient will be able to perform all bed mobility independently to improve her functional independence. 10/31/19: good goal progress 06/02/20: STG Duration goal met Motion Picture Equipment Supervisor Goal (LTG) Patient will be able to perform a floor transfer with SB to min assist 10/31/19: max assist today 01/02/20: has not been willing to try since 10/31/19 06/02/20: does not feel strong enough to try yet. LTG Duration 08/24/20 Three Impairment weakness left UE and LE s/p CVA Motion Picture Equipment Supervisor Goal (LTG) Improve functional strength in left LE, as evidenced by ability to move from sit > < stand without use of UE's. 10/31/19: OT starts tomorrow. Good progress with sit to stand, though mostly using right UE and LE 01/02/20: Improving ability to perform, able to increase weight-bearing through left LE with cues, but still some use of right UE 05/26/20: With manual and visual feedback patient able to transfer sit to stand with only CG A. LTG Duration 08/24/20 Two Impairment balance dysfunction with high risk for falls Residential Goal (LTG) Improve balance as evidenced by improvement in Tinnetti balance and gait score to low fall risk range to improve safety in the home and community. 10/31/19: remains high risk for falls 01/02/20: some improvement but still in high risk category 05/26/20: Tinetti score in high risk category LTG Duration 08/24/20 One Impairment requires armaan-walker for gait, limited to household gait Residential Goal (LTG) Patient able to ambulate with least restrictive device for functional community distances to improve her functional independence and quality of life. 10/30/19: no progress due to Covid 19. 11/02/19: able to ambulate with quad cane but with very slow speed, household distances, very short community distances . 05/26/20: Now able to ambulate with use of single point cane and use of L4 theraband wrapped around left LE to facilitate left LE internal rotation for improved alignment. Patient unable to don the theraband on her own. Gait is for short distances and very slow at 39 ft in 2 min. LTG Duration 08/24/20 Assessment Summary Assessment Treatment limited by patient fatigue after several days in bed after Covid vaccine, and needed to leave early for physician appointment Physical Therapy Plan Frequency and Duration Frequency of Treatment 2x/Week Duration of Treatment 12 wks Plan of Care Start Date 05/26/20 Plan of Care End Date 08/24/20 Therapeutic Interventions Therapeutic Interventions Aquatic Therapy,Balance Training,Gait Training,Home Exercise Program,Neuromuscular Re-education,Orthotic/ Prosthetic Management,Patient/ Caregiver Education,Self-Care/ Home Management,Taping, Therapeutic Activities, Therapeutic Exercises Modalities Cold Pack/Ice Massage,Hot Packs Next Visit Focus/Plan Next Note Type Treatment Note Next Visit Plan Possible therapy dog during session; waiting to hear back from therapy dog utilization supervisor. Continue PT for neur re-ed, balance, gait, strengthening.
--- NOTE | 2020-07-28 14:25 | PT.OTN ---
Current Diagnoses Hemiplegia, unspecified affecting unspecified side (07/28/20) Difficulty in walking, not elsewhere classified (07/28/20) Weakness (07/28/20) History of falling (07/28/20) Physical Therapy Treatment Note PT-OP-A Visit Information Start: 05/28/19 08:11 Freq: Status: Active Protocol: Document 07/28/20 10:36 SAK (Rec: 07/28/20 11:18 SAK [id number]) Out-Patient Physical Therapy Visit Information Visit Information Visit Type Treatment Note Visit Note pt 5 min late Visit Start Time 10:35 Visit Stop Time 11:15 Total Visit Minutes 40 Visit Number 53 PT-OP-B Current Condition Start: 05/28/19 08:11 Freq: Status: Active Protocol: Document 06/04/20 11:15 SAK (Rec: 06/05/20 16:34 SAK [id number]) Current Condition History of Current Condition Onset Date 2014 Current Complaints weakness, requires assistance with all mobility and household tasks History of Current Condition Reports that she suffered a stroke in 2014 after surgery for brain aneurysm. CVA caused weakness on the left side of her body, gait and balance difficulty, seizures. PT-OP-C Subjective Start: 05/28/19 08:11 Freq: Status: Active Protocol: Document 07/28/20 10:36 SAK (Rec: 07/28/20 11:18 SAK [id number]) OP-PT Subjective Patient Comments Patient Comments finally feeling back to normal after vaccine. Hoping to be able to do aquatic therapy soon. Informed that we are waiting to hear when volunteers are allowed back in hospital to be able to bring therapy dog into hospital. PT-OP-D Balance Start: 05/28/19 08:11 Freq: Status: Active Protocol: Document 05/29/19 14:30 SAK (Rec: 05/30/19 14:24 SAK [id number]) OP-PT Balance Assessment Sitting Balance Static Sitting Balance Ability Good Dynamic Sitting Balance Ability Fair Standing Balance Static Standing Balance Ability Good Dynamic Standing Balance Ability Fair Device [facility] right Tinetti Balance Assessment Sitting Balance Sitting Balance Steady, safe Arising from Chair Attempts to Arise Able, requires >1 attempt Standing Balance Immediate Standing Balance Steady with support Standing Balance Steady, wide stance Nudged Response Begins to fall Standing with Eyes Closed Unsteady Turning Step Pattern Turning 360 Degrees Discontinuous steps Stability Turning 360 Degrees Unsteady, grabs/staggers Sitting Down Sitting Down Uses arms or unsteady Gait and Step Initiation of Gait Hesitancy, mult. attempts Right Foot Step Length Does not pass stance ft. Right Foot Step Height Does not clear floor Left Foot Step Length Does not pass stance foot Left Foot Step Height Does not clear floor Step Description Step Symmetry Step length not equal Gait Description Path Description Mild/moderate deviation Trunk Description Marked sway or uses aide Walking Stance Heels apart Scoring and Interpretation Tinetti Composite Score (points) 6 Interpretation of Scores High risk for falls(< 19) Herrera Fall Scale Copyright Permission PT-OP-E Functional Tests Start: 05/28/19 08:11 Freq: Status: Active Protocol: Document 05/26/20 11:15 [facility] (Rec: 05/26/20 17:04 [facility] [id number]) Functional Tests 2 Minute Walk Test Distance 39 ft Device Used single point cane Comments derotation application of level 4 theraband to decrease excess ER right LE PT-OP-G Mobility & Gait Start: 05/28/19 08:11 Freq: Status: Active Protocol: Document 05/26/20 11:15 [facility] (Rec: 05/26/20 17:04 [facility] [id number]) OP Mobility Evaluation Bed Mobility Rolling min assist to right CGA to left Supine to and from Sit min assist to right CGA to left Transfers Sit to Stand CGA to min assist without UE use Bed to Chair Transfers requires use of right UE but able to do with SBA Floor Transfers unable PT-OP-H Neuro Start: 05/28/19 08:11 Freq: Status: Active Protocol: Document 05/29/19 14:30 [facility] (Rec: 05/30/19 14:24 [facility] [id number]) Sensation Evaluation Gross Sensation Gross Sensation Left UE Impaired,Left LE Impaired Sensation Description Paresthesia,Numbness Coordination Evaluation Lower Extremity Tests Left Alternate Heel to Knee; Heel to Toe Test Moderate Impairment Heel on Boles Test Moderate Impairment Foot Tapping Test Moderate Impairment PT-OP-K Range of Motion Start: 05/28/19 08:11 Freq: Status: Active Protocol: Document 05/26/20 11:15 [facility] (Rec: 05/26/20 17:04 [facility] [id number]) Hip Goniometric Range of Motion Hip jake Hip ROM WFL Yes Comments actively right LE, passively left LE Knee Goniometric Range of Motion Knee jake Knee ROM WFL Yes Ankle and Foot Goniometric Range of Motion Ankle and Foot Left Passive Ankle/Foot ROM WFL No Left Active Ankle/Foot ROM WFL No PT-OP-M Strength Start: 05/28/19 08:11 Freq: Status: Active Protocol: Document 05/26/20 11:15 [facility] (Rec: 05/26/20 17:04 [facility] [id number]) Hip Strength Hip Manual Muscle Testing Left Flexion (L2) 3- Fair- Extension (S1) 2 Poor Abduction 2+ Poor+ External Rotation 3- Fair- Internal Rotation 3+ Fair+ Right Flexion (L2) 4 Good Extension (S1) 4- Good- Abduction 4 Good External Rotation 3+ Fair+ Internal Rotation 4- Good- PT-OP-Q Treatments Start: 05/28/19 08:11 Freq: Status: Active Protocol: Document 07/28/20 10:36 [facility] (Rec: 07/28/20 11:18 [facility] [id number]) Cardio Equipment Recumbent Stepper (Sci-Fit) Duration (Minutes) 10 Resistance 1 Seat Position 8 Gym Equipment Shuttle Balance green Details balance Reps/Duration 6 min Comments patient c/o anxiety and nausea Gait Training Gait Activity stairs Description 4 stairs Device Used right railing, AFO, TB wrap Level of Assistance SBA to min assist, cues for alternating pattern Distance/Duration 4 stairs Treatment Focus alternating pattern facilatiting Comments Patient has difficulty with alternating pattern, difficulty trusting left LE, anxious, though some improvement gait w/ AD no wrapping Description w/ TB clockwise wrapping w/2 pt gait Device Used QC Level of Assistance SBA Surface stable Distance/Duration 50 ft Treatment Focus L knee flexion, hip IR 1 Description level surface (Blue TB spiral wrap) Device Used quad cane Level of Assistance close SBA, Metronome at 45 bpm Surface level floor, firm Distance/Duration 75' Treatment Focus L hip IR and decrease L knee hyperextension, pacing, metronome for pacing Comments 1. L4 TB tied at left shoe, wrapped around clockwise LE with gait belt to assist with internal rotation foot/ hip facilitation to allow LLE proper alignment. 2. metronome at 45 bpm for emphasis on increased LLE weightbearing and stance time. PT-OP-R Modalities Start: 05/28/19 08:11 Freq: Status: Active Protocol: Document 03/19/20 10:31 SAK (Rec: 03/19/20 11:17 SAK [id number]) Electric Stimulation Electric Stimulation Functional Electric Stimulation Body Location left anterior tib Duration (Minutes) 10 Intensity 52 Contraction Type Normal Cycle 10 Ramp 2.0 Patient Position Sitting Comments Togolese stim PT-OP-T Assessment and Plan Start: 05/28/19 08:11 Freq: Status: Active Protocol: Document 07/28/20 10:36 SAK (Rec: 07/28/20 11:18 SAK [id number]) Physical Therapy Assessment Goals Five Impairment gait speed not adequate for safe community ambulation Polishing Pad Mounter Goal (LTG) Patient able to ambulate 300' in 6 min 06/02/20: 134' LTG Duration 08/24/20 Four Impairment requires assistance with bed mobility and transfers Short Term Goal (STG) Patient will be able to perform all bed mobility independently to improve her functional independence. 10/31/19: good goal progress 06/02/20: STG Duration goal met Prison Goal (LTG) Patient will be able to perform a floor transfer with SB to min assist 10/31/19: max assist today 01/02/20: has not been willing to try since 10/31/19 06/02/20: does not feel strong enough to try yet. LTG Duration 08/24/20 Three Impairment weakness left UE and LE s/p CVA Polishing Pad Mounter Goal (LTG) Improve functional strength in left LE, as evidenced by ability to move from sit > < stand without use of UE's. 10/31/19: OT starts tomorrow. Good progress with sit to stand, though mostly using right UE and LE 01/02/20: Improving ability to perform, able to increase weight-bearing through left LE with cues, but still some use of right UE 05/26/20: With manual and visual feedback patient able to transfer sit to stand with only CG A. LTG Duration 08/24/20 Two Impairment balance dysfunction with high risk for falls Prison Goal (LTG) Improve balance as evidenced by improvement in Tinnetti balance and gait score to low fall risk range to improve safety in the home and community. 10/31/19: remains high risk for falls 01/02/20: some improvement but still in high risk category 05/26/20: Tinetti score in high risk category LTG Duration 08/24/20 One Impairment requires armaan-walker for gait, limited to household gait Prison Goal (LTG) Patient able to ambulate with least restrictive device for functional community distances to improve her functional independence and quality of life. 10/30/19: no progress due to Covid 19. 11/02/19: able to ambulate with quad cane but with very slow speed, household distances, very short community distances . 05/26/20: Now able to ambulate with use of single point cane and use of L4 theraband wrapped around left LE to facilitate left LE internal rotation for improved alignment. Patient unable to don the theraband on her own. Gait is for short distances and very slow at 39 ft in 2 min. LTG Duration 08/24/20 Assessment Summary Assessment Able to resume ambulation on stairs though fatigues quickly and becomes very anxious. Trial on Shuttle balance chains green, cords tight; patient became very anxious and reported nausea due to the anxiety she felt. Physical Therapy Plan Frequency and Duration Frequency of Treatment 2x/Week Duration of Treatment 12 wks Plan of Care Start Date 05/26/20 Plan of Care End Date 08/24/20 Therapeutic Interventions Therapeutic Interventions Aquatic Therapy,Balance Training,Gait Training,Home Exercise Program,Neuromuscular Re-education,Orthotic/ Prosthetic Management,Patient/ Caregiver Education,Self-Care/ Home Management,Taping, Therapeutic Activities, Therapeutic Exercises Modalities Cold Pack/Ice Massage,Hot Packs Next Visit Focus/Plan Next Note Type Treatment Note Next Visit Plan Continue PT per POC.
--- NOTE | 2020-07-30 17:04 | PT.OTN ---
Current Diagnoses Hemiplegia, unspecified affecting unspecified side (07/30/20) Difficulty in walking, not elsewhere classified (07/30/20) Weakness (07/30/20) History of falling (07/30/20) Physical Therapy Treatment Note PT-OP-A Visit Information Start: 05/28/19 08:11 Freq: Status: Active Protocol: Document 07/30/20 10:52 SAK (Rec: 07/30/20 11:22 SAK [id number]) Out-Patient Physical Therapy Visit Information Visit Information Visit Type Treatment Note Visit Note pt 7 min late Visit Start Time 10:37 Visit Stop Time 11:15 Total Visit Minutes 38 Visit Number 54 PT-OP-B Current Condition Start: 05/28/19 08:11 Freq: Status: Active Protocol: Document 06/04/20 11:15 SAK (Rec: 06/05/20 16:34 SAK [id number]) Current Condition History of Current Condition Onset Date 2014 Current Complaints weakness, requires assistance with all mobility and household tasks History of Current Condition Reports that she suffered a stroke in 2014 after surgery for brain aneurysm. CVA caused weakness on the left side of her body, gait and balance difficulty, seizures. PT-OP-C Subjective Start: 05/28/19 08:11 Freq: Status: Active Protocol: Document 07/30/20 10:52 SAK (Rec: 07/30/20 11:22 SAK [id number]) OP-PT Subjective Patient Comments Patient Comments Reports didn't sleep well last night. Scared of using balance machine again. PT-OP-D Balance Start: 05/28/19 08:11 Freq: Status: Active Protocol: Document 05/29/19 14:30 SAK (Rec: 05/30/19 14:24 SAK [id number]) OP-PT Balance Assessment Sitting Balance Static Sitting Balance Ability Good Dynamic Sitting Balance Ability Fair Standing Balance Static Standing Balance Ability Good Dynamic Standing Balance Ability Fair Device Used hemiwalker right Tinetti Balance Assessment Sitting Balance Sitting Balance Steady, safe Arising from Chair Attempts to Arise Able, requires >1 attempt Standing Balance Immediate Standing Balance Steady with support Standing Balance Steady, wide stance Nudged Response Begins to fall Standing with Eyes Closed Unsteady Turning Step Pattern Turning 360 Degrees Discontinuous steps Stability Turning 360 Degrees Unsteady, grabs/staggers Sitting Down Sitting Down Uses arms or unsteady Gait and Step Initiation of Gait Hesitancy, mult. attempts Right Foot Step Length Does not pass stance ft. Right Foot Step Height Does not clear floor Left Foot Step Length Does not pass stance foot Left Foot Step Height Does not clear floor Step Description Step Symmetry Step length not equal Gait Description Path Description Mild/moderate deviation Trunk Description Marked sway or uses aide Walking Stance Heels apart Scoring and Interpretation Tinetti Composite Score (points) 6 Interpretation of Scores High risk for falls(< 19) Herrera Fall Scale Copyright Permission PT-OP-E Functional Tests Start: 05/28/19 08:11 Freq: Status: Active Protocol: Document 05/26/20 11:15 [facility] (Rec: 05/26/20 17:04 [facility] [id number]) Functional Tests 2 Minute Walk Test Distance 39 ft Device Used single point cane Comments derotation application of level 4 theraband to decrease excess ER right LE PT-OP-G Mobility & Gait Start: 05/28/19 08:11 Freq: Status: Active Protocol: Document 05/26/20 11:15 [facility] (Rec: 05/26/20 17:04 [facility] [id number]) OP Mobility Evaluation Bed Mobility Rolling min assist to right CGA to left Supine to and from Sit min assist to right CGA to left Transfers Sit to Stand CGA to min assist without UE use Bed to Chair Transfers requires use of right UE but able to do with SBA Floor Transfers unable PT-OP-H Neuro Start: 05/28/19 08:11 Freq: Status: Active Protocol: Document 05/29/19 14:30 [facility] (Rec: 05/30/19 14:24 [facility] [id number]) Sensation Evaluation Gross Sensation Gross Sensation Left UE Impaired,Left LE Impaired Sensation Description Paresthesia,Numbness Coordination Evaluation Lower Extremity Tests Left Alternate Heel to Knee; Heel to Toe Test Moderate Impairment Heel on Boles Test Moderate Impairment Foot Tapping Test Moderate Impairment PT-OP-K Range of Motion Start: 05/28/19 08:11 Freq: Status: Active Protocol: Document 05/26/20 11:15 [facility] (Rec: 05/26/20 17:04 [facility] [id number]) Hip Goniometric Range of Motion Hip jake Hip ROM WFL Yes Comments actively right LE, passively left LE Knee Goniometric Range of Motion Knee jake Knee ROM WFL Yes Ankle and Foot Goniometric Range of Motion Ankle and Foot Left Passive Ankle/Foot ROM WFL No Left Active Ankle/Foot ROM WFL No PT-OP-M Strength Start: 05/28/19 08:11 Freq: Status: Active Protocol: Document 05/26/20 11:15 [facility] (Rec: 05/26/20 17:04 [facility] [id number]) Hip Strength Hip Manual Muscle Testing Left Flexion (L2) 3- Fair- Extension (S1) 2 Poor Abduction 2+ Poor+ External Rotation 3- Fair- Internal Rotation 3+ Fair+ Right Flexion (L2) 4 Good Extension (S1) 4- Good- Abduction 4 Good External Rotation 3+ Fair+ Internal Rotation 4- Good- PT-OP-Q Treatments Start: 05/28/19 08:11 Freq: Status: Active Protocol: Document 07/30/20 10:52 [facility] (Rec: 07/30/20 11:22 [facility] [id number]) Cardio Equipment Recumbent Stepper (Sci-Fit) Resistance 1 Seat Position 10 Other 1.0 Gym Equipment Shuttle Recovery Unilateral Squats Resistance 37 Shuttle Recovery Platform Stable Reps/Time 2 x 10 Bilateral Squats Details bilateral squats w/ ball between knees, glut fac heel press Resistance 50# Reps/Time 2 x 10 reps; cues for LLE hip rotation Gait Training Gait Activity gait w/ AD no wrapping Description w/ TB clockwise wrapping w/2 pt gait Device Used QC Level of Assistance SBA Surface stable Distance/Duration 50 ftx2 Treatment Focus L knee flexion, hip IR 1 Description level surface (Blue TB spiral wrap) Device Used quad cane Level of Assistance close SBA, Metronome at 45 bpm Surface level floor, firm Distance/Duration 75' Treatment Focus L hip IR and decrease L knee hyperextension, pacing, metronome for pacing Comments 1. L4 TB tied at left shoe, wrapped around clockwise LE with gait belt to assist with internal rotation foot/ hip facilitation to allow LLE proper alignment. 2. metronome at 45 bpm for emphasis on increased LLE weightbearing and stance time. PT-OP-R Modalities Start: 05/28/19 08:11 Freq: Status: Active Protocol: Document 03/19/20 10:31 SAK (Rec: 03/19/20 11:17 [facility] [id number]) Electric Stimulation Electric Stimulation Functional Electric Stimulation Body Location left anterior tib Duration (Minutes) 10 Intensity 52 Contraction Type Normal Cycle 10/10 Ramp 2.0 Patient Position Sitting Comments Christi caraballo PT-OP-T Assessment and Plan Start: 05/28/19 08:11 Freq: Status: Active Protocol: Document 07/30/20 10:52 [facility] (Rec: 07/30/20 11:22 [facility] [id number]) Physical Therapy Assessment Goals Five Impairment gait speed not adequate for safe community ambulation [facility]idential Goal (LTG) Patient able to ambulate 300' in 6 min 06/02/20: 134' LTG Duration 08/24/20 Four Impairment requires assistance with bed mobility and transfers Short Term Goal (STG) Patient will be able to perform all bed mobility independently to improve her functional independence. 10/31/19: good goal progress 06/02/20: STG Duration goal met [facility] Goal (LTG) Patient will be able to perform a floor transfer with SB to min assist 10/31/19: max assist today 01/02/20: has not been willing to try since 10/31/19 06/02/20: does not feel strong enough to try yet. LTG Duration 08/24/20 Three Impairment weakness left UE and LE s/p CVA [facility] Goal (LTG) Improve functional strength in left LE, as evidenced by ability to move from sit > < stand without use of UE's. 10/31/19: OT starts tomorrow. Good progress with sit to stand, though mostly using right UE and LE 01/02/20: Improving ability to perform, able to increase weight-bearing through left LE with cues, but still some use of right UE 05/26/20: With manual and visual feedback patient able to transfer sit to stand with only CG A. LTG Duration 08/24/20 Two Impairment balance dysfunction with high risk for falls [facility] Goal (LTG) Improve balance as evidenced by improvement in Tinnetti balance and gait score to low fall risk range to improve safety in the home and community. 10/31/19: remains high risk for falls 01/02/20: some improvement but still in high risk category 05/26/20: Tinetti score in high risk category LTG Duration 08/24/20 One Impairment requires armaan-walker for gait, limited to household gait [facility] Goal (LTG) Patient able to ambulate with least restrictive device for functional community distances to improve her functional independence and quality of life. 10/30/19: no progress due to Covid 19. 11/02/19: able to ambulate with quad cane but with very slow speed, household distances, very short community distances . 05/26/20: Now able to ambulate with use of single point cane and use of L4 theraband wrapped around left LE to facilitate left LE internal rotation for improved alignment. Patient unable to don the theraband on her own. Gait is for short distances and very slow at 39 ft in 2 min. LTG Duration 08/24/20 Assessment Summary Assessment Patient expressing frustration and hopelessness. Working with her doctor regarding medications. Low tolerance for therapy activities today. C/o pain in her foot so brace strap loosened and foam put under strap; encouraged patient to consult with sanforizer regarding brace. Physical Therapy Plan Frequency and Duration Frequency of Treatment 2x/Week Duration of Treatment 12 wks Plan of Care Start Date 05/26/20 Plan of Care End Date 08/24/20 Therapeutic Interventions Therapeutic Interventions Aquatic Therapy,Balance Training,Gait Training,Home Exercise Program,Neuromuscular Re-education,Orthotic/ Prosthetic Management,Patient/ Caregiver Education,Self-Care/ Home Management,Taping, Therapeutic Activities, Therapeutic Exercises Modalities Cold Pack/Ice Massage,Hot Packs Next Visit Focus/Plan Next Note Type Treatment Note Next Visit Plan shuttle balance, stairs, gait with metronome.
--- NOTE | 2020-08-04 12:31 | PT.OTN ---
Current Diagnoses Hemiplegia, unspecified affecting unspecified side (08/04/20) Difficulty in walking, not elsewhere classified (08/04/20) Weakness (08/04/20) History of falling (08/04/20) Physical Therapy Treatment Note PT-OP-A Visit Information Start: 05/28/19 08:11 Freq: Status: Active Protocol: Document 08/04/20 10:31 SAK (Rec: 08/04/20 11:13 SAK [id number]) Out-Patient Physical Therapy Visit Information Visit Information Visit Type Treatment Note Visit Note pt 6 min late Visit Start Time 10:36 Visit Stop Time 11:15 Total Visit Minutes 39 Visit Number 55 PT-OP-B Current Condition Start: 05/28/19 08:11 Freq: Status: Active Protocol: Document 06/04/20 11:15 SAK (Rec: 06/05/20 16:34 SAK [id number]) Current Condition History of Current Condition Onset Date 2014 Current Complaints weakness, requires assistance with all mobility and household tasks History of Current Condition Reports that she suffered a stroke in 2014 after surgery for brain aneurysm. CVA caused weakness on the left side of her body, gait and balance difficulty, seizures. PT-OP-C Subjective Start: 05/28/19 08:11 Freq: Status: Active Protocol: Document 08/04/20 10:31 SAK (Rec: 08/04/20 11:13 SAK [id number]) OP-PT Subjective Patient Comments Patient Comments Reports didn't sleep well last , needs to talk with her physician. Also reports having a difficult time regulating her temperature, thyroid numbers off. PT-OP-D Balance Start: 05/28/19 08:11 Freq: Status: Active Protocol: Document 05/29/19 14:30 SAK (Rec: 05/30/19 14:24 SAK [id number]) OP-PT Balance Assessment Sitting Balance Static Sitting Balance Ability Good Dynamic Sitting Balance Ability Fair Standing Balance Static Standing Balance Ability Good Dynamic Standing Balance Ability Fair Device Used [facility] right Tinetti Balance Assessment Sitting Balance Sitting Balance Steady, safe Arising from Chair Attempts to Arise Able, requires >1 attempt Standing Balance Immediate Standing Balance Steady with support Standing Balance Steady, wide stance Nudged Response Begins to fall Standing with Eyes Closed Unsteady Turning Step Pattern Turning 360 Degrees Discontinuous steps Stability Turning 360 Degrees Unsteady, grabs/staggers Sitting Down Sitting Down Uses arms or unsteady Gait and Step Initiation of Gait Hesitancy, mult. attempts Right Foot Step Length Does not pass stance ft. Right Foot Step Height Does not clear floor Left Foot Step Length Does not pass stance foot Left Foot Step Height Does not clear floor Step Description Step Symmetry Step length not equal Gait Description Path Description Mild/moderate deviation Trunk Description Marked sway or uses aide Walking Stance Heels apart Scoring and Interpretation Tinetti Composite Score (points) 6 Interpretation of Scores High risk for falls(< 19) Ehrrera Fall Scale Copyright Permission PT-OP-E Functional Tests Start: 05/28/19 08:11 Freq: Status: Active Protocol: Document 05/26/20 11:15 [facility] (Rec: 05/26/20 17:04 [facility] [id number]) Functional Tests 2 Minute Walk Test Distance 39 ft Device Used single point cane Comments derotation application of level 4 theraband to decrease excess ER right LE PT-OP-G Mobility & Gait Start: 05/28/19 08:11 Freq: Status: Active Protocol: Document 05/26/20 11:15 [facility] (Rec: 05/26/20 17:04 [facility] [id number]) OP Mobility Evaluation Bed Mobility Rolling min assist to right CGA to left Supine to and from Sit min assist to right CGA to left Transfers Sit to Stand CGA to min assist without UE use Bed to Chair Transfers requires use of right UE but able to do with SBA Floor Transfers unable PT-OP-H Neuro Start: 05/28/19 08:11 Freq: Status: Active Protocol: Document 05/29/19 14:30 [facility] (Rec: 05/30/19 14:24 [facility] [id number]) Sensation Evaluation Gross Sensation Gross Sensation Left UE Impaired,Left LE Impaired Sensation Description Paresthesia,Numbness Coordination Evaluation Lower Extremity Tests Left Alternate Heel to Knee; Heel to Toe Test Moderate Impairment Heel on Boles Test Moderate Impairment Foot Tapping Test Moderate Impairment PT-OP-K Range of Motion Start: 05/28/19 08:11 Freq: Status: Active Protocol: Document 05/26/20 11:15 SAK (Rec: 05/26/20 17:04 [facility] [id number]) Hip Goniometric Range of Motion Hip jake Hip ROM WFL Yes Comments actively right LE, passively left LE Knee Goniometric Range of Motion Knee jake Knee ROM WFL Yes Ankle and Foot Goniometric Range of Motion Ankle and Foot Left Passive Ankle/Foot ROM WFL No Left Active Ankle/Foot ROM WFL No PT-OP-M Strength Start: 05/28/19 08:11 Freq: Status: Active Protocol: Document 05/26/20 11:15 [facility] (Rec: 05/26/20 17:04 [facility] [id number]) Hip Strength Hip Manual Muscle Testing Left Flexion (L2) 3- Fair- Extension (S1) 2 Poor Abduction 2+ Poor+ External Rotation 3- Fair- Internal Rotation 3+ Fair+ Right Flexion (L2) 4 Good Extension (S1) 4- Good- Abduction 4 Good External Rotation 3+ Fair+ Internal Rotation 4- Good- PT-OP-Q Treatments Start: 05/28/19 08:11 Freq: Status: Active Protocol: Document 08/04/20 10:31 [facility] (Rec: 08/04/20 11:13 [facility] [id number]) Cardio Equipment Recumbent Stepper (Sci-Fit) Duration (Minutes) 10 Resistance 1.5 Seat Position 9 Other 1.29 mi Gym Equipment Shuttle Balance green Details balance, weight shift, movement of platform by pt Reps/Duration 6 min Comments cords tight Gait Training Gait Activity 1 Description level surface (Blue TB spiral wrap) Device Used quad cane Level of Assistance close SBA, Metronome at 52 bpm Surface level floor, firm Distance/Duration 75' Treatment Focus L hip IR and decrease L knee hyperextension, pacing, metronome for pacing Comments 1. L4 TB tied at left shoe, wrapped around clockwise LE with gait belt to assist with internal rotation foot/ hip facilitation to allow LLE proper alignment. 2. metronome at 45 bpm for emphasis on increased LLE weightbearing and stance time. stair mgt Description 4 Device Used right handriail ascend, left descend Level of Assistance min assist Surface 4 stairs Distance/Duration 4x2 stairs Treatment Focus increased weight shift left, decreased use right UE Comments 1. alternating feet ascending, step-to x 2 and alternating x2 descending providing lateral support of L knee w/ therapist LE and anterior L patella support w/ hand to prevent excessive knee varus and flexion, descending w/ L LE first support of lateral and anterior L patella, cueing to keep L LE bent slightly to prevent hyperextension. 2. Cues to keep knee slightly bent and L LE internally rotated w/ toes facing forward . 3. Instructed caregiver to assist w/ details above PT-OP-R Modalities Start: 05/28/19 08:11 Freq: Status: Active Protocol: Document 03/19/20 10:31 [facility] (Rec: 03/19/20 11:17 SAK [id number]) Electric Stimulation Electric Stimulation Functional Electric Stimulation Body Location left anterior tib Duration (Minutes) 10 Intensity 52 Contraction Type Normal Cycle 10/10 Ramp 2.0 Patient Position Sitting Comments [place] stim PT-OP-T Assessment and Plan Start: 05/28/19 08:11 Freq: Status: Active Protocol: Document 08/04/20 10:31 [facility] (Rec: 08/04/20 11:13 [facility] [id number]) Physical Therapy Assessment Goals Five Impairment gait speed not adequate for safe community ambulation [facility] Goal (LTG) Patient able to ambulate 300' in 6 min 06/02/20: 134' LTG Duration 08/24/20 Four Impairment requires assistance with bed mobility and transfers Short Term Goal (STG) Patient will be able to perform all bed mobility independently to improve her functional independence. 10/31/19: good goal progress 06/02/20: STG Duration goal met [employer] Goal (LTG) Patient will be able to perform a floor transfer with SB to min assist 10/31/19: max assist today 01/02/20: has not been willing to try since 10/31/19 06/02/20: does not feel strong enough to try yet. LTG Duration 08/24/20 Three Impairment weakness left UE and LE s/p CVA [employer] Goal (LTG) Improve functional strength in left LE, as evidenced by ability to move from sit > < stand without use of UE's. 10/31/19: OT starts tomorrow. Good progress with sit to stand, though mostly using right UE and LE 01/02/20: Improving ability to perform, able to increase weight-bearing through left LE with cues, but still some use of right UE 05/26/20: With manual and visual feedback patient able to transfer sit to stand with only CG A. LTG Duration 08/24/20 Two Impairment balance dysfunction with high risk for falls [facility] Goal (LTG) Improve balance as evidenced by improvement in Tinnetti balance and gait score to low fall risk range to improve safety in the home and community. 10/31/19: remains high risk for falls 01/02/20: some improvement but still in high risk category 05/26/20: Tinetti score in high risk category LTG Duration 08/24/20 One Impairment requires armaan-walker for gait, limited to household gait [employer] Goal (LTG) Patient able to ambulate with least restrictive device for functional community distances to improve her functional independence and quality of life. 10/30/19: no progress due to Covid 19. 11/02/19: able to ambulate with quad cane but with very slow speed, household distances, very short community distances . 05/26/20: Now able to ambulate with use of single point cane and use of L4 theraband wrapped around left LE to facilitate left LE internal rotation for improved alignment. Patient unable to don the theraband on her own. Gait is for short distances and very slow at 39 ft in 2 min. LTG Duration 08/24/20 Assessment Summary Assessment Patient came in reporting low energy but had best day in PT she has had in some time; increased speed and distance on Sci-Fit, improved tolerance on second trial of shuttle balance, and increased ability to perform alternating pattern on 4 stairs though required much encouragement and assist for left LE alignment. Physical Therapy Plan Frequency and Duration Frequency of Treatment 2x/Week Duration of Treatment 12 wks Plan of Care Start Date 05/26/20 Plan of Care End Date 08/24/20 Therapeutic Interventions Therapeutic Interventions Aquatic Therapy,Balance Training,Gait Training,Home Exercise Program,Neuromuscular Re-education,Orthotic/ Prosthetic Management,Patient/ Caregiver Education,Self-Care/ Home Management,Taping, Therapeutic Activities, Therapeutic Exercises Modalities Cold Pack/Ice Massage,Hot Packs Next Visit Focus/Plan Next Note Type Treatment Note Next Visit Plan Continue PT per POC.
--- NOTE | 2020-08-06 11:22 | PT.OTN ---
Current Diagnoses Hemiplegia, unspecified affecting unspecified side (08/06/20) Difficulty in walking, not elsewhere classified (08/06/20) Weakness (08/06/20) History of falling (08/06/20) Physical Therapy Treatment Note PT-OP-A Visit Information Start: 05/28/19 08:11 Freq: Status: Active Protocol: Document 08/06/20 10:34 SAK (Rec: 08/06/20 11:22 SAK [id number]) Out-Patient Physical Therapy Visit Information Visit Information Visit Type Treatment Note Visit Note 4 min late Visit Start Time 10:34 Visit Stop Time 11:15 Total Visit Minutes 41 Visit Number 56 PT-OP-B Current Condition Start: 05/28/19 08:11 Freq: Status: Active Protocol: Document 06/04/20 11:15 SAK (Rec: 06/05/20 16:34 SAK [id number]) Current Condition History of Current Condition Onset Date 2014 Current Complaints weakness, requires assistance with all mobility and household tasks History of Current Condition Reports that she suffered a stroke in 2014 after surgery for brain aneurysm. CVA caused weakness on the left side of her body, gait and balance difficulty, seizures. PT-OP-C Subjective Start: 05/28/19 08:11 Freq: Status: Active Protocol: Document 08/06/20 10:34 SAK (Rec: 08/06/20 11:22 SAK [id number]) OP-PT Subjective Patient Comments Patient Comments Fatigued today, slow, apologizes for being late. PT-OP-D Balance Start: 05/28/19 08:11 Freq: Status: Active Protocol: Document 05/29/19 14:30 SAK (Rec: 05/30/19 14:24 SAK [id number]) OP-PT Balance Assessment Sitting Balance Static Sitting Balance Ability Good Dynamic Sitting Balance Ability Fair Standing Balance Static Standing Balance Ability Good Dynamic Standing Balance Ability Fair Device Used hemiwalker right Tinetti Balance Assessment Sitting Balance Sitting Balance Steady, safe Arising from Chair Attempts to Arise Able, requires >1 attempt Standing Balance Immediate Standing Balance Steady with support Standing Balance Steady, wide stance Nudged Response Begins to fall Standing with Eyes Closed Unsteady Turning Step Pattern Turning 360 Degrees Discontinuous steps Stability Turning 360 Degrees Unsteady, grabs/staggers Sitting Down Sitting Down Uses arms or unsteady Gait and Step Initiation of Gait Hesitancy, mult. attempts Right Foot Step Length Does not pass stance ft. Right Foot Step Height Does not clear floor Left Foot Step Length Does not pass stance foot Left Foot Step Height Does not clear floor Step Description Step Symmetry Step length not equal Gait Description Path Description Mild/moderate deviation Trunk Description Marked sway or uses aide Walking Stance Heels apart Scoring and Interpretation Tinetti Composite Score (points) 6 Interpretation of Scores High risk for falls(< 19) Herrera Fall Scale Copyright Permission PT-OP-E Functional Tests Start: 05/28/19 08:11 Freq: Status: Active Protocol: Document 05/26/20 11:15 SAK (Rec: 05/26/20 17:04 [facility] [id number]) Functional Tests 2 Minute Walk Test Distance 39 ft Device Used single point cane Comments derotation application of level 4 theraband to decrease excess ER right LE PT-OP-G Mobility & Gait Start: 05/28/19 08:11 Freq: Status: Active Protocol: Document 05/26/20 11:15 SAK (Rec: 05/26/20 17:04 [facility] [id number]) OP Mobility Evaluation Bed Mobility Rolling min assist to right CGA to left Supine to and from Sit min assist to right CGA to left Transfers Sit to Stand CGA to min assist without UE use Bed to Chair Transfers requires use of right UE but able to do with SBA Floor Transfers unable PT-OP-H Neuro Start: 05/28/19 08:11 Freq: Status: Active Protocol: Document 05/29/19 14:30 SAK (Rec: 05/30/19 14:24 [facility] [id number]) Sensation Evaluation Gross Sensation Gross Sensation Left UE Impaired,Left LE Impaired Sensation Description Paresthesia,Numbness Coordination Evaluation Lower Extremity Tests Left Alternate Heel to Knee; Heel to Toe Test Moderate Impairment Heel on Boles Test Moderate Impairment Foot Tapping Test Moderate Impairment PT-OP-K Range of Motion Start: 05/28/19 08:11 Freq: Status: Active Protocol: Document 05/26/20 11:15 SAK (Rec: 05/26/20 17:04 [facility] [id number]) Hip Goniometric Range of Motion Hip jake Hip ROM WFL Yes Comments actively right LE, passively left LE Knee Goniometric Range of Motion Knee jake Knee ROM WFL Yes Ankle and Foot Goniometric Range of Motion Ankle and Foot Left Passive Ankle/Foot ROM WFL No Left Active Ankle/Foot ROM WFL No PT-OP-M Strength Start: 05/28/19 08:11 Freq: Status: Active Protocol: Document 05/26/20 11:15 [facility] (Rec: 05/26/20 17:04 [facility] [id number]) Hip Strength Hip Manual Muscle Testing Left Flexion (L2) 3- Fair- Extension (S1) 2 Poor Abduction 2+ Poor+ External Rotation 3- Fair- Internal Rotation 3+ Fair+ Right Flexion (L2) 4 Good Extension (S1) 4- Good- Abduction 4 Good External Rotation 3+ Fair+ Internal Rotation 4- Good- PT-OP-Q Treatments Start: 05/28/19 08:11 Freq: Status: Active Protocol: Document 08/06/20 10:34 [facility] (Rec: 08/06/20 11:22 [facility] [id number]) Cardio Equipment Recumbent Stepper (Sci-Fit) Duration (Minutes) 10 Resistance 1.5 Seat Position 9 Other 1.34 mi Gym Equipment Shuttle Recovery Bilateral Squats Details bilateral squats w/ ball between knees, glut fac heel press Resistance 50# Reps/Time 2 x 10 reps; cues for LLE hip rotation Shuttle Balance green Details balance, weight shift, movement of platform by pt, balloon volleyball Reps/Duration 6 min Comments cords tight Gait Training Gait Activity 1 Description level surface (Blue TB spiral wrap) Device Used quad cane Level of Assistance close SBA, Metronome at 52 bpm Surface level floor, firm Distance/Duration 75' Treatment Focus L hip IR and decrease L knee hyperextension, pacing, metronome for pacing Comments 1. L4 TB tied at left shoe, wrapped around clockwise LE with gait belt to assist with internal rotation foot/ hip facilitation to allow LLE proper alignment. 2. metronome at 45 bpm for emphasis on increased LLE weightbearing and stance time. PT-OP-R Modalities Start: 05/28/19 08:11 Freq: Status: Active Protocol: Document 03/19/20 10:31 [facility] (Rec: 03/19/20 11:17 [facility] [id number]) Electric Stimulation Electric Stimulation Functional Electric Stimulation Body Location left anterior tib Duration (Minutes) 10 Intensity 52 Contraction Type Normal Cycle 10/10 Ramp 2.0 Patient Position Sitting Comments [place] stim PT-OP-T Assessment and Plan Start: 05/28/19 08:11 Freq: Status: Active Protocol: Document 08/06/20 10:34 KRYSTAL (Rec: 08/06/20 11:22 KRYSTAL [id number]) Physical Therapy Assessment Goals Five Impairment gait speed not adequate for safe community ambulation Shelter Goal (LTG) Patient able to ambulate 300' in 6 min 06/02/20: 134' LTG Duration 08/24/20 Four Impairment requires assistance with bed mobility and transfers Short Term Goal (STG) Patient will be able to perform all bed mobility independently to improve her functional independence. 10/31/19: good goal progress 06/02/20: STG Duration goal met Manager Msw Goal (LTG) Patient will be able to perform a floor transfer with SB to min assist 10/31/19: max assist today 01/02/20: has not been willing to try since 10/31/19 06/02/20: does not feel strong enough to try yet. LTG Duration 08/24/20 Three Impairment weakness left UE and LE s/p CVA Manager Msw Goal (LTG) Improve functional strength in left LE, as evidenced by ability to move from sit > < stand without use of UE's. 10/31/19: OT starts tomorrow. Good progress with sit to stand, though mostly using right UE and LE 01/02/20: Improving ability to perform, able to increase weight-bearing through left LE with cues, but still some use of right UE 05/26/20: With manual and visual feedback patient able to transfer sit to stand with only CG A. LTG Duration 08/24/20 Two Impairment balance dysfunction with high risk for falls Manager Msw Goal (LTG) Improve balance as evidenced by improvement in Tinnetti balance and gait score to low fall risk range to improve safety in the home and community. 10/31/19: remains high risk for falls 01/02/20: some improvement but still in high risk category 05/26/20: Tinetti score in high risk category LTG Duration 08/24/20 One Impairment requires armaan-walker for gait, limited to household gait Manager Msw Goal (LTG) Patient able to ambulate with least restrictive device for functional community distances to improve her functional independence and quality of life. 10/30/19: no progress due to Covid 19. 11/02/19: able to ambulate with quad cane but with very slow speed, household distances, very short community distances . 05/26/20: Now able to ambulate with use of single point cane and use of L4 theraband wrapped around left LE to facilitate left LE internal rotation for improved alignment. Patient unable to don the theraband on her own. Gait is for short distances and very slow at 39 ft in 2 min. LTG Duration 08/24/20 Assessment Summary Assessment Increased distance and speed again on Sci-Fit recumbant stepper, improved alternating pattern on 4 stairs with cues for increased weight bearing through left LE, less on right UE. Able to progress to balloon volleyball on shuttle balance today; patient reported feeling some nausea afterwards due to anxiety but pleased with ability to do more. Physical Therapy Plan Frequency and Duration Frequency of Treatment 2x/Week Duration of Treatment 12 wks Plan of Care Start Date 05/26/20 Plan of Care End Date 08/24/20 Therapeutic Interventions Therapeutic Interventions Aquatic Therapy,Balance Training,Gait Training,Home Exercise Program,Neuromuscular Re-education,Orthotic/ Prosthetic Management,Patient/ Caregiver Education,Self-Care/ Home Management,Taping, Therapeutic Activities, Therapeutic Exercises Modalities Cold Pack/Ice Massage,Hot Packs Next Visit Focus/Plan Next Note Type Treatment Note Next Visit Plan Progression of shuttle balance , gait on stairs with emphasis on alternating pattern, encourage increased gait and ther ex at home.
--- NOTE | 2020-08-18 11:18 | PT.OTN ---
Addendum entered and electronically signed by Paola Farfan PTA 08/18/20 11:47: Progress note due next tx, POC exp 08/24/20. Original Note: Current Diagnoses Hemiplegia, unspecified affecting unspecified side (08/18/20) Difficulty in walking, not elsewhere classified (08/18/20) Weakness (08/18/20) History of falling (08/18/20) Physical Therapy Treatment Note PT-OP-A Visit Information Start: 05/28/19 08:11 Freq: Status: Active Protocol: Document 08/18/20 10:39 SP (Rec: 08/18/20 11:37 SP [id number]) Out-Patient Physical Therapy Visit Information Visit Information Visit Type Treatment Note Visit Note pt 9 min late for appt. Visit Start Time 10:39 Visit Stop Time 11:18 Total Visit Minutes 41 Visit Number 57 Number of ACQUISITION PROFESSIONAL Visits 1 Precautions Precautions Seizure disorder memory dysfunction PT-OP-B Current Condition Start: 05/28/19 08:11 Freq: Status: Active Protocol: Document 06/04/20 11:15 SAK (Rec: 06/05/20 16:34 SAK [id number]) Current Condition History of Current Condition Onset Date 2014 Current Complaints weakness, requires assistance with all mobility and household tasks History of Current Condition Reports that she suffered a stroke in 2014 after surgery for brain aneurysm. CVA caused weakness on the left side of her body, gait and balance difficulty, seizures. PT-OP-C Subjective Start: 05/28/19 08:11 Freq: Status: Active Protocol: Document 08/18/20 10:39 SP (Rec: 08/18/20 11:37 SP [id number]) OP-PT Subjective Patient Comments Patient Comments Pt stated Wished didnt' miss last Tue so haven't been to PT in over a week. Did do walking in house at home but not the same as what do PT-OP-D Balance Start: 05/28/19 08:11 Freq: Status: Active Protocol: Document 05/29/19 14:30 SAK (Rec: 05/30/19 14:24 SAK [id number]) OP-PT Balance Assessment Sitting Balance Static Sitting Balance Ability Good Dynamic Sitting Balance Ability Fair Standing Balance Static Standing Balance Ability Good Dynamic Standing Balance Ability Fair Device Used hemiwalker right Tinetti Balance Assessment Sitting Balance Sitting Balance Steady, safe Arising from Chair Attempts to Arise Able, requires >1 attempt Standing Balance Immediate Standing Balance Steady with support Standing Balance Steady, wide stance Nudged Response Begins to fall Standing with Eyes Closed Unsteady Turning Step Pattern Turning 360 Degrees Discontinuous steps Stability Turning 360 Degrees Unsteady, grabs/staggers Sitting Down Sitting Down Uses arms or unsteady Gait and Step Initiation of Gait Hesitancy, mult. attempts Right Foot Step Length Does not pass stance ft. Right Foot Step Height Does not clear floor Left Foot Step Length Does not pass stance foot Left Foot Step Height Does not clear floor Step Description Step Symmetry Step length not equal Gait Description Path Description Mild/moderate deviation Trunk Description Marked sway or uses aide Walking Stance Heels apart Scoring and Interpretation Tinetti Composite Score (points) 6 Interpretation of Scores High risk for falls(< 19) Herrera Fall Scale Copyright Permission PT-OP-E Functional Tests Start: 05/28/19 08:11 Freq: Status: Active Protocol: Document 05/26/20 11:15 [facility] (Rec: 05/26/20 17:04 [facility] [id number]) Functional Tests 2 Minute Walk Test Distance 39 ft Device Used single point cane Comments derotation application of level 4 theraband to decrease excess ER right LE PT-OP-G Mobility & Gait Start: 05/28/19 08:11 Freq: Status: Active Protocol: Document 05/26/20 11:15 [facility] (Rec: 05/26/20 17:04 [facility] [id number]) OP Mobility Evaluation Bed Mobility Rolling min assist to right CGA to left Supine to and from Sit min assist to right CGA to left Transfers Sit to Stand CGA to min assist without UE use Bed to Chair Transfers requires use of right UE but able to do with SBA Floor Transfers unable PT-OP-H Neuro Start: 05/28/19 08:11 Freq: Status: Active Protocol: Document 05/29/19 14:30 [facility] (Rec: 05/30/19 14:24 [facility] [id number]) Sensation Evaluation Gross Sensation Gross Sensation Left UE Impaired,Left LE Impaired Sensation Description Paresthesia,Numbness Coordination Evaluation Lower Extremity Tests Left Alternate Heel to Knee; Heel to Toe Test Moderate Impairment Heel on Boles Test Moderate Impairment Foot Tapping Test Moderate Impairment PT-OP-K Range of Motion Start: 05/28/19 08:11 Freq: Status: Active Protocol: Document 05/26/20 11:15 SAK (Rec: 05/26/20 17:04 [facility] [id number]) Hip Goniometric Range of Motion Hip jake Hip ROM WFL Yes Comments actively right LE, passively left LE Knee Goniometric Range of Motion Knee jake Knee ROM WFL Yes Ankle and Foot Goniometric Range of Motion Ankle and Foot Left Passive Ankle/Foot ROM WFL No Left Active Ankle/Foot ROM WFL No PT-OP-M Strength Start: 05/28/19 08:11 Freq: Status: Active Protocol: Document 05/26/20 11:15 [facility] (Rec: 05/26/20 17:04 [facility] [id number]) Hip Strength Hip Manual Muscle Testing Left Flexion (L2) 3- Fair- Extension (S1) 2 Poor Abduction 2+ Poor+ External Rotation 3- Fair- Internal Rotation 3+ Fair+ Right Flexion (L2) 4 Good Extension (S1) 4- Good- Abduction 4 Good External Rotation 3+ Fair+ Internal Rotation 4- Good- PT-OP-Q Treatments Start: 05/28/19 08:11 Freq: Status: Active Protocol: Document 08/18/20 10:39 SP (Rec: 08/18/20 11:37 SP [id number]) Cardio Equipment Recumbent Stepper (Sci-Fit) Duration (Minutes) 11 Resistance 2 Seat Position 10 Other 1.40 mil Gait Training Gait Activity stairs Description 6 stairs Device Used right railing, AFO, TB wrap Level of Assistance CG assist, cues for alternating pattern Distance/Duration 2 sets stairs (MAP bld full stairway flight) Treatment Focus alternating LE pattern facilitation Comments Patient little anxious LLE stability, cued L adductor and RUE downward press rail improvement in upright postural alignment 1 Description level surface (Blue TB spiral wrap) Device Used quad cane Level of Assistance close SBA, Metronome at 52 bpm Surface level floor, firm Distance/Duration 95.8' (bottom MAP steps to SciFit) Treatment Focus L hip IR and decrease L knee hyperextension, pacing, metronome for pacing Comments 1. L4 TB tied at left shoe, wrapped around clockwise LE with gait belt to assist with internal rotation foot/ hip facilitation to allow LLE proper alignment. 2. metronome at 52 bpm for emphasis on increased LLE weightbearing and stance time- improved keeping step time 50 % of the time. PT-OP-R Modalities Start: 05/28/19 08:11 Freq: Status: Active Protocol: Document 03/19/20 10:31 SAK (Rec: 03/19/20 11:17 SAK [id number]) Electric Stimulation Electric Stimulation Functional Electric Stimulation Body Location left anterior tib Duration (Minutes) 10 Intensity 52 Contraction Type Normal Cycle 10/10 Ramp 2.0 Patient Position Sitting Comments [place] stim PT-OP-T Assessment and Plan Start: 05/28/19 08:11 Freq: Status: Active Protocol: Document 08/18/20 10:39 SP (Rec: 08/18/20 11:37 SP [id number]) Physical Therapy Assessment Goals Five Impairment gait speed not adequate for safe community ambulation [employer] Co Founder Goal (LTG) Patient able to ambulate 300' in 6 min 06/02/20: 134' LTG Duration 08/24/20 Four Impairment requires assistance with bed mobility and transfers Short Term Goal (STG) Patient will be able to perform all bed mobility independently to improve her functional independence. 10/31/19: good goal progress 06/02/20: STG Duration goal met Group Home Goal (LTG) Patient will be able to perform a floor transfer with SB to min assist 10/31/19: max assist today 01/02/20: has not been willing to try since 10/31/19 06/02/20: does not feel strong enough to try yet. LTG Duration 08/24/20 Three Impairment weakness left UE and LE s/p CVA [employer] Co [employer]ounder Goal (LTG) Improve functional strength in left LE, as evidenced by ability to move from sit > < stand without use of UE's. 10/31/19: OT starts tomorrow. Good progress with sit to stand, though mostly using right UE and LE 01/02/20: Improving ability to perform, able to increase weight-bearing through left LE with cues, but still some use of right UE 05/26/20: With manual and visual feedback patient able to transfer sit to stand with only CG A. LTG Duration 08/24/20 Two Impairment balance dysfunction with high risk for falls Chairman [employer] Co Founder Goal (LTG) Improve balance as evidenced by improvement in Tinnetti balance and gait score to low fall risk range to improve safety in the home and community. 10/31/19: remains high risk for falls 01/02/20: some improvement but still in high risk category 05/26/20: Tinetti score in high risk category LTG Duration 08/24/20 One Impairment requires armaan-walker for gait, limited to household gait Group Home Goal (LTG) Patient able to ambulate with least restrictive device for functional community distances to improve her functional independence and quality of life. 10/30/19: no progress due to Covid 19. 11/02/19: able to ambulate with quad cane but with very slow speed, household distances, very short community distances . 05/26/20: Now able to ambulate with use of single point cane and use of L4 theraband wrapped around left LE to facilitate left LE internal rotation for improved alignment. Patient unable to don the theraband on her own. Gait is for short distances and very slow at 39 ft in 2 min. LTG Duration 08/24/20 Assessment Summary Assessment Pt progressed gait 95 ft 52bpm metronome keeping time 50% of the time. Pt was able to complete full 2 sets fo stair in MAP bldg today step over step with cuing for sequencing decreased CGA. Physical Therapy Plan Frequency and Duration Frequency of Treatment 2x/Week Duration of Treatment 12 wks Plan of Care Start Date 05/26/20 Plan of Care End Date 08/24/20 Therapeutic Interventions Therapeutic Interventions Aquatic Therapy,Balance Training,Gait Training,Home Exercise Program,Neuromuscular Re-education,Orthotic/ Prosthetic Management,Patient/ Caregiver Education,Self-Care/ Home Management,Taping, Therapeutic Activities, Therapeutic Exercises Modalities Cold Pack/Ice Massage,Hot Packs Next Visit Focus/Plan Next Note Type Treatment Note Next Visit Plan Assess response to last tx stair mgt, further distance gait and scit fit. Continue per PT POC: Progression of shuttle balance , gait on stairs with emphasis on alternating pattern, encourage increased gait and ther ex at home.
--- NOTE | 2020-08-27 11:44 | PT-OP ANOTE ---
Pt needs updated POC but arrived too late today (20 minutes remaining) for progress note visit. Elected not to see pt for short treatment. She is scheduled for one week from today with PT.
--- NOTE | 2020-08-28 16:09 | PT.OTRE ---
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 Cervical somatic dysfunction Chronic constipation Chronic neck pain Chronic neck pain Chronic neck pain with abnormal neurologic examination Chronic pain Chronic right-sided thoracic back pain Constipation Cranial somatic dysfunction Dominant hemiplegia complicating stroke Dry mouth, unspecified Dysphagia Elevated BP without diagnosis of hypertension Excessive vitamin B12 intake Family history of colon cancer Fatigue Foot drop, left Generalized anxiety disorder GERD (gastroesophageal reflux disease) Headache Hypothyroidism Iliotibial band syndrome, left leg Irritable bowel syndrome Left hand weakness Left hemiplegia Major depressive disorder Mass of right axilla Menorrhagia Mixed hyperlipidemia Obesity Obesity (BMI 35.0-39.9 without comorbidity) Pelvic somatic dysfunction Right wrist pain Seasonal allergies Segmental and somatic dysfunction of abdomen and other regions Segmental and somatic dysfunction of lumbar region Segmental and somatic dysfunction of rib cage Segmental and somatic dysfunction of sacral region Segmental and somatic dysfunction of thoracic region Seizure disorder Shortness of breath Sleep apnea in adult Stiff neck Stroke Throat disorder Vision changes Vision disorder Vitamin D deficiency Weight gain finding Surgical History (Last Reviewed 08/27/20 @ 08:53 by KINJAL Cooper) Anesthesia Brain aneurysm (~03/25/15) De Quervain's syndrome (tenosynovitis) (~1996) Visit Care Team Role Provider Type KINJAL Cooper Attending Provider Advanced Brush Polisher Primary Care Provider Specialty: Family Practice Address: [address] [place] [address], [facility] Email: [email or web address] Physical Therapy Re-Evaluation PT-OP-A Visit Information Start: 05/28/19 08:11 Freq: Status: Active Protocol: Document 08/28/20 08:14 KRYSTAL (Rec: 08/28/20 09:00 KRYSTAL [id number]) Out-Patient Physical Therapy Visit Information Visit Information Visit Type Treatment Note Visit Start Time 08:15 Visit Stop Time 09:00 Total Visit Minutes 45 Visit Number 58 Number of GRANULATING MACHINE OPERATOR Visits 0 PT-OP-B Current Condition Start: 05/28/19 08:11 Freq: Status: Active Protocol: Document 06/04/20 11:15 SAK (Rec: 06/05/20 16:34 SAK [id number]) Current Condition History of Current Condition Onset Date 2014 Current Complaints weakness, requires assistance with all mobility and household tasks History of Current Condition Reports that she suffered a stroke in 2014 after surgery for brain aneurysm. CVA caused weakness on the left side of her body, gait and balance difficulty, seizures. PT-OP-C Subjective Start: 05/28/19 08:11 Freq: Status: Active Protocol: Document 08/28/20 08:14 SAK (Rec: 08/28/20 09:00 SAK [id number]) OP-PT Subjective Patient Comments Patient Comments Joined the gym at [employer] [place], scheduled for this Tuesday to start. Got new shoes, need some modification, not working with her newest AFO, seeing felt coverer tomorrow. Was pleased with her ability to ambulate on stairs last session PT-OP-D Balance Start: 05/28/19 08:11 Freq: Status: Active Protocol: Document 05/29/19 14:30 SAK (Rec: 05/30/19 14:24 SAK [id number]) OP-PT Balance Assessment Sitting Balance Static Sitting Balance Ability Good Dynamic Sitting Balance Ability Fair Standing Balance Static Standing Balance Ability Good Dynamic Standing Balance Ability Fair Device Used hemiwalker right Tinetti Balance Assessment Sitting Balance Sitting Balance Steady, safe Arising from Chair Attempts to Arise Able, requires >1 attempt Standing Balance Immediate Standing Balance Steady with support Standing Balance Steady, wide stance Nudged Response Begins to fall Standing with Eyes Closed Unsteady Turning Step Pattern Turning 360 Degrees Discontinuous steps Stability Turning 360 Degrees Unsteady, grabs/staggers Sitting Down Sitting Down Uses arms or unsteady Gait and Step Initiation of Gait Hesitancy, mult. attempts Right Foot Step Length Does not pass stance ft. Right Foot Step Height Does not clear floor Left Foot Step Length Does not pass stance foot Left Foot Step Height Does not clear floor Step Description Step Symmetry Step length not equal Gait Description Path Description Mild/moderate deviation Trunk Description Marked sway or uses aide Walking Stance Heels apart Scoring and Interpretation Tinetti Composite Score (points) 6 Interpretation of Scores High risk for falls(< 19) Herrera Fall Scale Copyright Permission Javier LAUREANO, Javier RM, Baldev SJ. Development of a scale to identify the fall- prone patient. Can J Aging 1989;8;366-7. Fabian Herrera (2009). Preventing patient falls. (2nd ed). Camp: [place]. PT-OP-E Functional Tests Start: 05/28/19 08:11 Freq: Status: Active Protocol: Document 05/26/20 11:15 SAK (Rec: 05/26/20 17:04 [facility] [id number]) Functional Tests 2 Minute Walk Test Distance 39 ft Device Used single point cane Comments derotation application of level 4 theraband to decrease excess ER right LE PT-OP-G Mobility & Gait Start: 05/28/19 08:11 Freq: Status: Active Protocol: Document 05/26/20 11:15 SAK (Rec: 05/26/20 17:04 [facility] [id number]) OP Mobility Evaluation Bed Mobility Rolling min assist to right CGA to left Supine to and from Sit min assist to right CGA to left Transfers Sit to Stand CGA to min assist without UE use Bed to Chair Transfers requires use of right UE but able to do with SBA Floor Transfers unable PT-OP-H Neuro Start: 05/28/19 08:11 Freq: Status: Active Protocol: Document 05/29/19 14:30 SAK (Rec: 05/30/19 14:24 [facility] [id number]) Sensation Evaluation Gross Sensation Gross Sensation Left UE Impaired,Left LE Impaired Sensation Description Paresthesia,Numbness Coordination Evaluation Lower Extremity Tests Left Alternate Heel to Knee; Heel to Toe Test Moderate Impairment Heel on Boles Test Moderate Impairment Foot Tapping Test Moderate Impairment PT-OP-K Range of Motion Start: 05/28/19 08:11 Freq: Status: Active Protocol: Document 05/26/20 11:15 SAK (Rec: 05/26/20 17:04 [facility] [id number]) Hip Goniometric Range of Motion Hip Measured in Degrees jake Hip ROM WFL Yes Comments actively right LE, passively left LE Knee Goniometric Range of Motion Knee Measured in Degrees jake Knee ROM WFL Yes Ankle and Foot Goniometric Range of Motion Ankle and Foot Measured in Degrees Left Passive Ankle/Foot ROM WFL No Left Active Ankle/Foot ROM WFL No PT-OP-M Strength Start: 05/28/19 08:11 Freq: Status: Active Protocol: Document 05/26/20 11:15 [facility] (Rec: 05/26/20 17:04 [facility] [id number]) Hip Strength Hip Manual Muscle Testing Left Flexion (L2) 3- Fair- Extension (S1) 2 Poor Abduction 2+ Poor+ External Rotation 3- Fair- Internal Rotation 3+ Fair+ Right Flexion (L2) 4 Good Extension (S1) 4- Good- Abduction 4 Good External Rotation 3+ Fair+ Internal Rotation 4- Good- PT-OP-Q Treatments Start: 05/28/19 08:11 Freq: Status: Active Protocol: Document 08/28/20 08:14 [facility] (Rec: 08/28/20 09:00 [facility] [id number]) Cardio Equipment Recumbent Stepper (Sci-Fit) Duration (Minutes) 10 Resistance 2 Seat Position 10 Other 1.06 mi Therapeutic Activity Therapeutic Activity TUG Reps/Minutes 1 min 22 sec 5x sit to stand test Reps/Minutes 55 sec Comments using quad cane right Gait Training Gait Activity 6 min walk test Distance/Duration 144' Treatment Focus speed and safety 1 Description level surface (Blue TB spiral wrap) Device Used quad cane Level of Assistance close SBA, Metronome at 52 bpm Surface level floor, firm Distance/Duration 95.8' (bottom MAP steps to SciFit) Treatment Focus L hip IR and decrease L knee hyperextension, pacing, metronome for pacing Comments 1. L4 TB tied at left shoe, wrapped around clockwise LE with gait belt to assist with internal rotation foot/ hip facilitation to allow LLE proper alignment. 2. metronome at 52 bpm for emphasis on increased LLE weightbearing and stance time- improved keeping step time 50 % of the time. Self-Care/Home Management Treatment Education Other Education instructed in toe stretching due to cramping when gets up in middle of night to go to the bathroom PT-OP-R Modalities Start: 05/28/19 08:11 Freq: Status: Active Protocol: Document 03/19/20 10:31 [facility] (Rec: 03/19/20 11:17 [facility] [id number]) Electric Stimulation Electric Stimulation Functional Electric Stimulation Body Location left anterior tib Duration (Minutes) 10 Intensity 52 Contraction Type Normal Cycle 10/10 Ramp 2.0 Patient Position Sitting Comments Kittitian stim PT-OP-T Assessment and Plan Start: 05/28/19 08:11 Freq: Status: Active Protocol: Document 08/28/20 08:14 KRYSTAL (Rec: 08/28/20 09:00 KRYSTAL [id number]) Physical Therapy Assessment Goals Five Impairment gait speed not adequate for safe community ambulation Nursing Home Goal (LTG) Patient able to ambulate 300' in 6 min 06/02/20: 134' 08/28/20: 144', likely not as high due to new shoes and wearing old AFO because fits better in new shoes. Requires level 4 theraband for derotation of left LE into more neutral position for gait . LTG Duration 11/25/20 Four Impairment requires assistance with bed mobility and transfers Short Term Goal (STG) Patient will be able to perform all bed mobility independently to improve her functional independence. 10/31/19: good goal progress 06/02/20:inconsistent, but min assist most times 08/28/20 STG Duration goal met Nursing Home Goal (LTG) Patient will be able to perform a floor transfer with SB to min assist 10/31/19: max assist today 01/02/20: has not been willing to try since 10/31/19 06/02/20: does not feel strong enough to try yet. 08/28/20: max assistance required LTG Duration 11/25/20 Three Impairment weakness left UE and LE s/p CVA Gore Inserter Goal (LTG) Improve functional strength in left LE, as evidenced by ability to move from sit > < stand without use of UE's. 10/31/19: OT starts tomorrow. Good progress with sit to stand, though mostly using right UE and LE 01/02/20: Improving ability to perform, able to increase weight-bearing through left LE with cues, but still some use of right UE 05/26/20: With manual and visual feedback patient able to transfer sit to stand with only CG A. 08/28/20: inconsistent ability to move sit to stand without using UE's, but able to do transfer without physical assistance LTG Duration 11/25/20 Two Impairment balance dysfunction with high risk for falls Gore Inserter Goal (LTG) Improve balance as evidenced by improvement in Tinnetti balance and gait score to low fall risk range to improve safety in the home and community. 10/31/19: remains high risk for falls 8/26/20: some improvement but still in high risk category 05/26/20: Tinetti score in high risk category 08/28/20: moderate risk for falls LTG Duration 11/25/20 One Impairment requires armaan-walker for gait, limited to household gait Gore Inserter Goal (LTG) Patient able to ambulate with least restrictive device for functional community distances to improve her functional independence and quality of life. 10/30/19: no progress due to Covid 19. 11/02/19: able to ambulate with quad cane but with very slow speed, household distances, very short community distances . 05/26/20: Now able to ambulate with use of single point cane and use of L4 theraband wrapped around left LE to facilitate left LE internal rotation for improved alignment. Patient unable to don the theraband on her own. Gait is for short distances and very slow at 39 ft in 2 min. 08/28/20: has demonstrated improved gait ability, still using theraband for derotation of LE for more neutral position. Able to consistenly use quad cane and is increasing stride length especially with cues. Now able to ascend and descend 4 stairs with min assist using railing. Mod assist on 6 stairs. LTG Duration 11/25/20 Assessment Summary Assessment Has had some medication changes which appear to be affecting her function, as well as new shoes which are not yet comfortable. Patient reports wanting to not be brace dependent, be able to get up from the floor, and be able to walk faster and further without pain or knee collapsing. TUG test 1:22, 5x sit to stand 55 sec. Patient inconsistently able to stand without use of right UE to compensate for balance and left LE weakness. Inconsistencies with caregivers impacts her ability to follow-through with HEP and gait practice. Has now joined a gym and has her first scheduled time 08/30/20. Recommend further PT to address above goals. Physical Therapy Plan Frequency and Duration Frequency of Treatment 2x/Week Duration of Treatment 12 wks Plan of Care Start Date 08/28/20 Plan of Care End Date 11/26/20 Therapeutic Interventions Therapeutic Interventions Aquatic Therapy,Balance Training,Gait Training,Home Exercise Program,Neuromuscular Re-education,Orthotic/ Prosthetic Management,Patient/ Caregiver Education,Self-Care/ Home Management,Taping, Therapeutic Activities, Therapeutic Exercises Modalities Cold Pack/Ice Massage,Hot Packs Next Visit Focus/Plan Next Note Type Treatment Note Next Visit Plan Continue strengthening, gait training, balance training and neur re-ed. Add staggered squat, lunges as we work toward floor transfer.
--- NOTE | 2020-09-03 12:07 | PT.OTN ---
Current Diagnoses Hemiplegia, unspecified affecting unspecified side (09/03/20) Difficulty in walking, not elsewhere classified (09/03/20) Weakness (09/03/20) History of falling (09/03/20) Physical Therapy Treatment Note PT-OP-A Visit Information Start: 05/28/19 08:11 Freq: Status: Active Protocol: Document 09/03/20 11:14 SAK (Rec: 09/03/20 12:07 SAK [id number]) Out-Patient Physical Therapy Visit Information Visit Information Visit Type Treatment Note Visit Start Time 11:15 Visit Stop Time 12:00 Total Visit Minutes 45 Visit Number 59 Number of SUPERVISOR LATHING Visits 0 PT-OP-B Current Condition Start: 05/28/19 08:11 Freq: Status: Active Protocol: Document 06/04/20 11:15 SAK (Rec: 06/05/20 16:34 SAK [id number]) Current Condition History of Current Condition Onset Date 2014 Current Complaints weakness, requires assistance with all mobility and household tasks History of Current Condition Reports that she suffered a stroke in 2014 after surgery for brain aneurysm. CVA caused weakness on the left side of her body, gait and balance difficulty, seizures. PT-OP-C Subjective Start: 05/28/19 08:11 Freq: Status: Active Protocol: Document 09/03/20 11:14 SAK (Rec: 09/03/20 12:07 SAK [id number]) OP-PT Subjective Patient Comments Patient Comments States she gets a lot of left hip pain when laying in bed at night; lays on back or on left side. Pain is when lays on back and right LE rolls to the outside. States hasn't been able to go to fitness center due to caregivers not allowed by their company to take her, states not sure why. (Company: [employer] in [place]). PT-OP-D Balance Start: 05/28/19 08:11 Freq: Status: Active Protocol: Document 05/29/19 14:30 SAK (Rec: 05/30/19 14:24 SAK [id number]) OP-PT Balance Assessment Sitting Balance Static Sitting Balance Ability Good Dynamic Sitting Balance Ability Fair Standing Balance Static Standing Balance Ability Good Dynamic Standing Balance Ability Fair Device Used hemiwalker right Tinetti Balance Assessment Sitting Balance Sitting Balance Steady, safe Arising from Chair Attempts to Arise Able, requires >1 attempt Standing Balance Immediate Standing Balance Steady with support Standing Balance Steady, wide stance Nudged Response Begins to fall Standing with Eyes Closed Unsteady Turning Step Pattern Turning 360 Degrees Discontinuous steps Stability Turning 360 Degrees Unsteady, grabs/staggers Sitting Down Sitting Down Uses arms or unsteady Gait and Step Initiation of Gait Hesitancy, mult. attempts Right Foot Step Length Does not pass stance ft. Right Foot Step Height Does not clear floor Left Foot Step Length Does not pass stance foot Left Foot Step Height Does not clear floor Step Description Step Symmetry Step length not equal Gait Description Path Description Mild/moderate deviation Trunk Description Marked sway or uses aide Walking Stance Heels apart Scoring and Interpretation Tinetti Composite Score (points) 6 Interpretation of Scores High risk for falls(< 19) Herrera Fall Scale Copyright Permission PT-OP-E Functional Tests Start: 05/28/19 08:11 Freq: Status: Active Protocol: Document 05/26/20 11:15 SAK (Rec: 05/26/20 17:[address] [facility] [id number]) Functional Tests 2 Minute Walk Test Distance 39 ft Device Used single point cane Comments derotation application of level 4 theraband to decrease excess ER right LE PT-OP-G Mobility & Gait Start: 05/28/19 08:11 Freq: Status: Active Protocol: Document 05/26/20 11:15 SAK (Rec: 05/26/20 17:[address] [facility] [id number]) OP Mobility Evaluation Bed Mobility Rolling min assist to right CGA to left Supine to and from Sit min assist to right CGA to left Transfers Sit to Stand CGA to min assist without UE use Bed to Chair Transfers requires use of right UE but able to do with SBA Floor Transfers unable PT-OP-H Neuro Start: 05/28/19 08:11 Freq: Status: Active Protocol: Document 05/29/19 14:30 SAK (Rec: 05/30/19 14:[address] [facility] [id number]) Sensation Evaluation Gross Sensation Gross Sensation Left UE Impaired,Left LE Impaired Sensation Description Paresthesia,Numbness Coordination Evaluation Lower Extremity Tests Left Alternate Heel to Knee; Heel to Toe Test Moderate Impairment Heel on Boles Test Moderate Impairment Foot Tapping Test Moderate Impairment PT-OP-K Range of Motion Start: 05/28/19 08:11 Freq: Status: Active Protocol: Document 05/26/20 11:15 SAK (Rec: 05/26/20 17:[address] [facility] [id number]) Hip Goniometric Range of Motion Hip jake Hip ROM WFL Yes Comments actively right LE, passively left LE Knee Goniometric Range of Motion Knee jake Knee ROM WFL Yes Ankle and Foot Goniometric Range of Motion Ankle and Foot Left Passive Ankle/Foot ROM WFL No Left Active Ankle/Foot ROM WFL No PT-OP-M Strength Start: 05/28/19 08:11 Freq: Status: Active Protocol: Document 05/26/20 11:[address] [facility] (Rec: 05/26/20 17:[address] [facility] [id number]) Hip Strength Hip Manual Muscle Testing Left Flexion (L2) 3- Fair- Extension (S1) 2 Poor Abduction 2+ Poor+ External Rotation 3- Fair- Internal Rotation 3+ Fair+ Right Flexion (L2) 4 Good Extension (S1) 4- Good- Abduction 4 Good External Rotation 3+ Fair+ Internal Rotation 4- Good- PT-OP-Q Treatments Start: 05/28/19 08:11 Freq: Status: Active Protocol: Document 09/03/20 11:[address] [facility] (Rec: 09/03/20 12:[address] [facility] [id number]) Cardio Equipment Recumbent Stepper (Sci-Fit) Duration (Minutes) 10 Resistance 2 Seat Position 10 Other 1.06 mi Therapeutic Exercises Sitting Exercises HC stretch Side left Reps/Minutes 2x 30 Comments manual Standing Exercises staggered lunge Reps/Minutes 10x Comments leans right, right UE support, decreased ROM right ankle d/t tightness &AFO Gait Training Gait Activity stairs Description 6 stairs Device Used right railing, AFO, TB wrap Level of Assistance CG assist, cues for alternating pattern Distance/Duration 2 sets stairs (MAP bld full stairway flight) Treatment Focus alternating LE pattern facilitation Comments Patient little anxious LLE stability, cued L adductor and RUE downward press rail improvement in upright postural alignment 1 Description level surface (Blue TB spiral wrap) Device Used quad cane Level of Assistance close SBA, Metronome at 52 bpm Surface level floor, firm Distance/Duration 95.8' (bottom MAP steps to SciFit) Treatment Focus L hip IR and decrease L knee hyperextension, pacing, metronome for pacing Comments 1. L4 TB tied at left shoe, wrapped around clockwise LE with gait belt to assist with internal rotation foot/ hip facilitation to allow LLE proper alignment. 2. metronome at 52 bpm for emphasis on increased LLE weightbearing and stance time- improved keeping step time 50 % of the time. PT-OP-R Modalities Start: 05/28/19 08:11 Freq: Status: Active Protocol: Document 03/19/20 10:31 SAK (Rec: 03/19/20 11:17 SAK [id number]) Electric Stimulation Electric Stimulation Functional Electric Stimulation Body Location left anterior tib Duration (Minutes) 10 Intensity 52 Contraction Type Normal Cycle 10/10 Ramp 2.0 Patient Position Sitting Comments [place]araguan stim PT-OP-T Assessment and Plan Start: 05/28/19 08:11 Freq: Status: Active Protocol: Document 09/03/20 11:14 SAK (Rec: 09/03/20 12:07 SAK [id number]) Physical Therapy Assessment Goals Five Impairment gait speed not adequate for safe community ambulation Billet Worker Goal (LTG) Patient able to ambulate 300' in 6 min 06/02/20: 134' 08/28/20: 144', likely not as high due to new shoes and wearing old AFO because fits better in new shoes. Requires level 4 theraband for derotation of left LE into more neutral position for gait . LTG Duration 11/25/20 Four Impairment requires assistance with bed mobility and transfers Short Term Goal (STG) Patient will be able to perform all bed mobility independently to improve her functional independence. 10/31/19: good goal progress 06/02/20:inconsistent, but min assist most times 08/28/20 STG Duration goal met Mcfp Goal (LTG) Patient will be able to perform a floor transfer with SB to min assist 10/31/19: max assist today 01/02/20: has not been willing to try since 10/31/19 06/02/20: does not feel strong enough to try yet. 08/28/20: max assistance required LTG Duration 11/25/20 Three Impairment weakness left UE and LE s/p CVA Mcfp Goal (LTG) Improve functional strength in left LE, as evidenced by ability to move from sit > < stand without use of UE's. 10/31/19: OT starts tomorrow. Good progress with sit to stand, though mostly using right UE and LE 01/02/20: Improving ability to perform, able to increase weight-bearing through left LE with cues, but still some use of right UE 05/26/20: With manual and visual feedback patient able to transfer sit to stand with only CG A. 08/28/20: inconsistent ability to move sit to stand without using UE's, but able to do transfer without physical assistance LTG Duration 11/25/20 Two Impairment balance dysfunction with high risk for falls Mcfp Goal (LTG) Improve balance as evidenced by improvement in Tinnetti balance and gait score to low fall risk range to improve safety in the home and community. 10/31/19: remains high risk for falls 01/02/20: some improvement but still in high risk category 05/26/20: Tinetti score in high risk category 08/28/20: moderate risk for falls LTG Duration 11/25/20 One Impairment requires armaan-walker for gait, limited to household gait Mcfp Goal (LTG) Patient able to ambulate with least restrictive device for functional community distances to improve her functional independence and quality of life. 10/30/19: no progress due to Covid 19. 11/02/19: able to ambulate with quad cane but with very slow speed, household distances, very short community distances . 05/26/20: Now able to ambulate with use of single point cane and use of L4 theraband wrapped around left LE to facilitate left LE internal rotation for improved alignment. Patient unable to don the theraband on her own. Gait is for short distances and very slow at 39 ft in 2 min. 08/28/20: has demonstrated improved gait ability, still using theraband for derotation of LE for more neutral position. Able to consistenly use quad cane and is increasing stride length especially with cues. Now able to ascend and descend 4 stairs with min assist using railing. Mod assist on 6 stairs. LTG Duration 11/25/20 Assessment Summary Assessment Modification to shoe and AFO improved patient's left knee control, decreased hyperextension. Feel we need to work on staggered squat and possibly stair ambulation without brace next session due to limited ROM while wearing brace. Needs cues for smaller step left, bigger step length right. Physical Therapy Plan Frequency and Duration Frequency of Treatment 2x/Week Duration of Treatment 12 wks Plan of Care Start Date 08/28/20 Plan of Care End Date 11/26/20 Therapeutic Interventions Therapeutic Interventions Aquatic Therapy,Balance Training,Gait Training,Home Exercise Program,Neuromuscular Re-education,Orthotic/ Prosthetic Management,Patient/ Caregiver Education,Self-Care/ Home Management,Taping, Therapeutic Activities, Therapeutic Exercises Modalities Cold Pack/Ice Massage,Hot Packs Next Visit Focus/Plan Next Note Type Treatment Note Next Visit Plan Gait training on level surfaces, stairs, uneven surfaces. Work toward floor transfers. Repeat 6 min walk test.
--- NOTE | 2020-09-03 13:48 | PT.OTN ---
Current Diagnoses Hemiplegia, unspecified affecting unspecified side (09/03/20) Difficulty in walking, not elsewhere classified (09/03/20) Weakness (09/03/20) History of falling (09/03/20) Physical Therapy Treatment Note PT-OP-A Visit Information Start: 05/28/19 08:11 Freq: Status: Active Protocol: Document 09/03/20 11:14 SAK (Rec: 09/03/20 12:07 SAK [id number]) Out-Patient Physical Therapy Visit Information Visit Information Visit Type Treatment Note Visit Start Time 11:15 Visit Stop Time 12:00 Total Visit Minutes 45 Visit Number 59 Number of RFID MANAGER Visits 0 PT-OP-B Current Condition Start: 05/28/19 08:11 Freq: Status: Active Protocol: Document 06/04/20 11:15 SAK (Rec: 06/05/20 16:34 SAK [id number]) Current Condition History of Current Condition Onset Date 2014 Current Complaints weakness, requires assistance with all mobility and household tasks History of Current Condition Reports that she suffered a stroke in 2014 after surgery for brain aneurysm. CVA caused weakness on the left side of her body, gait and balance difficulty, seizures. PT-OP-C Subjective Start: 05/28/19 08:11 Freq: Status: Active Protocol: Document 09/03/20 11:14 SAK (Rec: 09/03/20 12:07 SAK [id number]) OP-PT Subjective Patient Comments Patient Comments States she gets a lot of left hip pain when laying in bed at night; lays on back or on left side. Pain is when lays on back and right LE rolls to the outside. States hasn't been able to go to fitness center due to caregivers not allowed by their company to take her, states not sure why. (Company: [employer] in [place]). PT-OP-D Balance Start: 05/28/19 08:11 Freq: Status: Active Protocol: Document 05/29/19 14:30 SAK (Rec: 05/30/19 14:24 SAK [id number]) OP-PT Balance Assessment Sitting Balance Static Sitting Balance Ability Good Dynamic Sitting Balance Ability Fair Standing Balance Static Standing Balance Ability Good Dynamic Standing Balance Ability Fair Device Used hemiwalker right Tinetti Balance Assessment Sitting Balance Sitting Balance Steady, safe Arising from Chair Attempts to Arise Able, requires >1 attempt Standing Balance Immediate Standing Balance Steady with support Standing Balance Steady, wide stance Nudged Response Begins to fall Standing with Eyes Closed Unsteady Turning Step Pattern Turning 360 Degrees Discontinuous steps Stability Turning 360 Degrees Unsteady, grabs/staggers Sitting Down Sitting Down Uses arms or unsteady Gait and Step Initiation of Gait Hesitancy, mult. attempts Right Foot Step Length Does not pass stance ft. Right Foot Step Height Does not clear floor Left Foot Step Length Does not pass stance foot Left Foot Step Height Does not clear floor Step Description Step Symmetry Step length not equal Gait Description Path Description Mild/moderate deviation Trunk Description Marked sway or uses aide Walking Stance Heels apart Scoring and Interpretation Tinetti Composite Score (points) 6 Interpretation of Scores High risk for falls(< 19) Herrera Fall Scale Copyright Permission PT-OP-E Functional Tests Start: 05/28/19 08:11 Freq: Status: Active Protocol: Document 05/26/20 11:15 SAK (Rec: 05/26/20 17:04 [facility] [id number]) Functional Tests 2 Minute Walk Test Distance 39 ft Device Used single point cane Comments derotation application of level 4 theraband to decrease excess ER right LE PT-OP-G Mobility & Gait Start: 05/28/19 08:11 Freq: Status: Active Protocol: Document 05/26/20 11:15 SAK (Rec: 05/26/20 17:04 [facility] [id number]) OP Mobility Evaluation Bed Mobility Rolling min assist to right CGA to left Supine to and from Sit min assist to right CGA to left Transfers Sit to Stand CGA to min assist without UE use Bed to Chair Transfers requires use of right UE but able to do with SBA Floor Transfers unable PT-OP-H Neuro Start: 05/28/19 08:11 Freq: Status: Active Protocol: Document 05/29/19 14:30 SAK (Rec: 05/30/19 14:24 [facility] [id number]) Sensation Evaluation Gross Sensation Gross Sensation Left UE Impaired,Left LE Impaired Sensation Description Paresthesia,Numbness Coordination Evaluation Lower Extremity Tests Left Alternate Heel to Knee; Heel to Toe Test Moderate Impairment Heel on Boles Test Moderate Impairment Foot Tapping Test Moderate Impairment PT-OP-K Range of Motion Start: 05/28/19 08:11 Freq: Status: Active Protocol: Document 05/26/20 11:15 SAK (Rec: 05/26/20 17:04 [facility] [id number]) Hip Goniometric Range of Motion Hip jake Hip ROM WFL Yes Comments actively right LE, passively left LE Knee Goniometric Range of Motion Knee jake Knee ROM WFL Yes Ankle and Foot Goniometric Range of Motion Ankle and Foot Left Passive Ankle/Foot ROM WFL No Left Active Ankle/Foot ROM WFL No PT-OP-M Strength Start: 05/28/19 08:11 Freq: Status: Active Protocol: Document 05/26/20 11:15 [facility] (Rec: 05/26/20 17:04 [facility] [id number]) Hip Strength Hip Manual Muscle Testing Left Flexion (L2) 3- Fair- Extension (S1) 2 Poor Abduction 2+ Poor+ External Rotation 3- Fair- Internal Rotation 3+ Fair+ Right Flexion (L2) 4 Good Extension (S1) 4- Good- Abduction 4 Good External Rotation 3+ Fair+ Internal Rotation 4- Good- PT-OP-Q Treatments Start: 05/28/19 08:11 Freq: Status: Active Protocol: Document 09/03/20 11:14 [facility] (Rec: 09/03/20 12:07 [facility] [id number]) Cardio Equipment Recumbent Stepper (Sci-Fit) Duration (Minutes) 10 Resistance 2 Seat Position 10 Other 1.06 mi Therapeutic Exercises Sitting Exercises HC stretch Side left Reps/Minutes 2x 30 Comments manual Standing Exercises staggered lunge Reps/Minutes 10x Comments leans right, right UE support, decreased ROM right ankle d/t tightness &AFO Gait Training Gait Activity stairs Description 6 stairs Device Used right railing, AFO, TB wrap Level of Assistance CG assist, cues for alternating pattern Distance/Duration 1 set 5 stairs Treatment Focus alternating LE pattern facilitation Comments verbal and manual cues to increase weight shift to left LE, attempt alternating pattern 1 Description level surface (Blue TB spiral wrap) Device Used quad cane Level of Assistance close SBA, Metronome at 52 bpm Surface level floor, firm Distance/Duration 50'x3 Treatment Focus L hip IR and decrease L knee hyperextension, pacing, metronome for pacing Comments 1. L4 TB tied at left shoe, wrapped around clockwise LE with gait belt to assist with internal rotation foot/ hip facilitation to allow LLE proper alignment. 2. metronome at 52 bpm for emphasis on increased LLE weightbearing and stance time- improved keeping step time 50 % of the time. PT-OP-R Modalities Start: 05/28/19 08:11 Freq: Status: Active Protocol: Document 03/19/20 10:31 SAK (Rec: 03/19/20 11:17 SAK [id number]) Electric Stimulation Electric Stimulation Functional Electric Stimulation Body Location left anterior tib Duration (Minutes) 10 Intensity 52 Contraction Type Normal Cycle 10/10 Ramp 2.0 Patient Position Sitting Comments Spanish stim PT-OP-T Assessment and Plan Start: 05/28/19 08:11 Freq: Status: Active Protocol: Document 09/03/20 11:14 [facility] (Rec: 09/03/20 12:07 [facility] [id number]) Physical Therapy Assessment Goals Five Impairment gait speed not adequate for safe community ambulation Sales Support Specialist Goal (LTG) Patient able to ambulate 300' in 6 min 06/02/20: 134' 08/28/20: 144', likely not as high due to new shoes and wearing old AFO because fits better in new shoes. Requires level 4 theraband for derotation of left LE into more neutral position for gait . LTG Duration 11/25/20 Four Impairment requires assistance with bed mobility and transfers Short Term Goal (STG) Patient will be able to perform all bed mobility independently to improve her functional independence. 10/31/19: good goal progress 06/02/20:inconsistent, but min assist most times 08/28/20 STG Duration goal met Sales Support Specialist Goal (LTG) Patient will be able to perform a floor transfer with SB to min assist 10/31/19: max assist today 01/02/20: has not been willing to try since 10/31/19 06/02/20: does not feel strong enough to try yet. 08/28/20: max assistance required LTG Duration 11/25/20 Three Impairment weakness left UE and LE s/p CVA Assisted Goal (LTG) Improve functional strength in left LE, as evidenced by ability to move from sit > < stand without use of UE's. 10/31/19: OT starts tomorrow. Good progress with sit to stand, though mostly using right UE and LE 01/02/20: Improving ability to perform, able to increase weight-bearing through left LE with cues, but still some use of right UE 05/26/20: With manual and visual feedback patient able to transfer sit to stand with only CG A. 08/28/20: inconsistent ability to move sit to stand without using UE's, but able to do transfer without physical assistance LTG Duration 11/25/20 Two Impairment balance dysfunction with high risk for falls Assisted Goal (LTG) Improve balance as evidenced by improvement in Tinnetti balance and gait score to low fall risk range to improve safety in the home and community. 10/31/19: remains high risk for falls 01/02/20: some improvement but still in high risk category 05/26/20: Tinetti score in high risk category 08/28/20: moderate risk for falls LTG Duration 11/25/20 One Impairment requires armaan-walker for gait, limited to household gait Assisted Goal (LTG) Patient able to ambulate with least restrictive device for functional community distances to improve her functional independence and quality of life. 10/30/19: no progress due to Covid 19. 11/02/19: able to ambulate with quad cane but with very slow speed, household distances, very short community distances . 05/26/20: Now able to ambulate with use of single point cane and use of L4 theraband wrapped around left LE to facilitate left LE internal rotation for improved alignment. Patient unable to don the theraband on her own. Gait is for short distances and very slow at 39 ft in 2 min. 08/28/20: has demonstrated improved gait ability, still using theraband for derotation of LE for more neutral position. Able to consistenly use quad cane and is increasing stride length especially with cues. Now able to ascend and descend 4 stairs with min assist using railing. Mod assist on 6 stairs. LTG Duration 11/25/20 Assessment Summary Assessment Modification to shoe and AFO improved patient's left knee control, decreased hyperextension. Feel we need to work on staggered squat and possibly stair ambulation without brace next session due to limited ROM while wearing brace. Needs cues for smaller step left, bigger step length right. Physical Therapy Plan Frequency and Duration Frequency of Treatment 2x/Week Duration of Treatment 12 wks Plan of Care Start Date 08/28/20 Plan of Care End Date 11/26/20 Therapeutic Interventions Therapeutic Interventions Aquatic Therapy,Balance Training,Gait Training,Home Exercise Program,Neuromuscular Re-education,Orthotic/ Prosthetic Management,Patient/ Caregiver Education,Self-Care/ Home Management,Taping, Therapeutic Activities, Therapeutic Exercises Modalities Cold Pack/Ice Massage,Hot Packs Next Visit Focus/Plan Next Note Type Treatment Note Next Visit Plan Gait training on level surfaces, stairs, uneven surfaces. Work toward floor transfers. Repeat 6 min walk test, 5x sit to stand test.
--- NOTE | 2020-09-05 13:00 | PT.OTN ---
Current Diagnoses Hemiplegia, unspecified affecting unspecified side (09/05/20) Difficulty in walking, not elsewhere classified (09/05/20) Weakness (09/05/20) History of falling (09/05/20) Physical Therapy Treatment Note PT-OP-A Visit Information Start: 05/28/19 08:11 Freq: Status: Active Protocol: Document 09/05/20 12:16 SP (Rec: 09/05/20 15:44 SP [id number]) Out-Patient Physical Therapy Visit Information Visit Information Visit Type Treatment Note Visit Start Time 12:16 Visit Stop Time 13:00 Total Visit Minutes 44 Visit Number 60 Number of BENCH HAND Visits 1 Precautions Precautions Seizure disorder memory dysfunction PT-OP-B Current Condition Start: 05/28/19 08:11 Freq: Status: Active Protocol: Document 06/04/20 11:15 SAK (Rec: 06/05/20 16:34 SAK [id number]) Current Condition History of Current Condition Onset Date 2014 Current Complaints weakness, requires assistance with all mobility and household tasks History of Current Condition Reports that she suffered a stroke in 2014 after surgery for brain aneurysm. CVA caused weakness on the left side of her body, gait and balance difficulty, seizures. PT-OP-C Subjective Start: 05/28/19 08:11 Freq: Status: Active Protocol: Document 09/05/20 12:16 SP (Rec: 09/05/20 15:44 SP [id number]) OP-PT Subjective Patient Comments Patient Comments Pt stated got a heel lift wedge in L shoe today to assist decrease L hyperknee extension uncertainty if helping today. Pt stated she was told by her caregivers that their employer not having them assist with her activity in gym membership, not wanting the liability, would rather her see therapy for this assistance. Pt disappointed because has been trained in PT for on/off bike, stairs, gait with TB all of which would be doing at home just at the gym so wants to look further into it. PT-OP-D Balance Start: 05/28/19 08:11 Freq: Status: Active Protocol: Document 05/29/19 14:30 SAK (Rec: 05/30/19 14:24 SAK [id number]) OP-PT Balance Assessment Sitting Balance Static Sitting Balance Ability Good Dynamic Sitting Balance Ability Fair Standing Balance Static Standing Balance Ability Good Dynamic Standing Balance Ability Fair Device Used hemiwalker right Tinetti Balance Assessment Sitting Balance Sitting Balance Steady, safe Arising from Chair Attempts to Arise Able, requires >1 attempt Standing Balance Immediate Standing Balance Steady with support Standing Balance Steady, wide stance Nudged Response Begins to fall Standing with Eyes Closed Unsteady Turning Step Pattern Turning 360 Degrees Discontinuous steps Stability Turning 360 Degrees Unsteady, grabs/staggers Sitting Down Sitting Down Uses arms or unsteady Gait and Step Initiation of Gait Hesitancy, mult. attempts Right Foot Step Length Does not pass stance ft. Right Foot Step Height Does not clear floor Left Foot Step Length Does not pass stance foot Left Foot Step Height Does not clear floor Step Description Step Symmetry Step length not equal Gait Description Path Description Mild/moderate deviation Trunk Description Marked sway or uses aide Walking Stance Heels apart Scoring and Interpretation Tinetti Composite Score (points) 6 Interpretation of Scores High risk for falls(< 19) Herrera Fall Scale Copyright Permission PT-OP-E Functional Tests Start: 05/28/19 08:11 Freq: Status: Active Protocol: Document 05/26/20 11:15 [facility] (Rec: 05/26/20 17:04 [facility] [id number]) Functional Tests 2 Minute Walk Test Distance 39 ft Device Used single point cane Comments derotation application of level 4 theraband to decrease excess ER right LE PT-OP-G Mobility & Gait Start: 05/28/19 08:11 Freq: Status: Active Protocol: Document 05/26/20 11:15 [facility] (Rec: 05/26/20 17:04 [facility] [id number]) OP Mobility Evaluation Bed Mobility Rolling min assist to right CGA to left Supine to and from Sit min assist to right CGA to left Transfers Sit to Stand CGA to min assist without UE use Bed to Chair Transfers requires use of right UE but able to do with SBA Floor Transfers unable PT-OP-H Neuro Start: 05/28/19 08:11 Freq: Status: Active Protocol: Document 05/29/19 14:30 [facility] (Rec: 05/30/19 14:24 [facility] [id number]) Sensation Evaluation Gross Sensation Gross Sensation Left UE Impaired,Left LE Impaired Sensation Description Paresthesia,Numbness Coordination Evaluation Lower Extremity Tests Left Alternate Heel to Knee; Heel to Toe Test Moderate Impairment Heel on Boles Test Moderate Impairment Foot Tapping Test Moderate Impairment PT-OP-K Range of Motion Start: 05/28/19 08:11 Freq: Status: Active Protocol: Document 05/26/20 11:15 SAK (Rec: 05/26/20 17:04 SAK [id number]) Hip Goniometric Range of Motion Hip jake Hip ROM WFL Yes Comments actively right LE, passively left LE Knee Goniometric Range of Motion Knee jake Knee ROM WFL Yes Ankle and Foot Goniometric Range of Motion Ankle and Foot Left Passive Ankle/Foot ROM WFL No Left Active Ankle/Foot ROM WFL No PT-OP-M Strength Start: 05/28/19 08:11 Freq: Status: Active Protocol: Document 05/26/20 11:15 SAK (Rec: 05/26/20 17:04 SAK [id number]) Hip Strength Hip Manual Muscle Testing Left Flexion (L2) 3- Fair- Extension (S1) 2 Poor Abduction 2+ Poor+ External Rotation 3- Fair- Internal Rotation 3+ Fair+ Right Flexion (L2) 4 Good Extension (S1) 4- Good- Abduction 4 Good External Rotation 3+ Fair+ Internal Rotation 4- Good- PT-OP-Q Treatments Start: 05/28/19 08:11 Freq: Status: Active Protocol: Document 09/05/20 12:16 SP (Rec: 09/05/20 15:44 SP [id number]) Therapeutic Exercises Sitting Exercises HC stretch Sitting Exercise Name hamstring stretch Side left Reps/Minutes 3 x 30 Comments manual Standing Exercises lunges Standing Exercise Name modified lunge Side bilateral Equipment Used rail Reps/Minutes 3x5 each LE (RLE not as far front) Comments CGA gait belt Gait Training Gait Activity stairs Description 4 stairs Device Used right railing, AFO, TB wrap Level of Assistance CG assist, cues for alternating pattern Distance/Duration 2 set 5 stairs Treatment Focus alternating LE pattern facilitation Comments verbal and manual cues to increase weight shift to left LE, alternating pattern, lateral support w/ cues for L knee flexion during RLE descend 1 Description level surface (Blue TB spiral wrap) Device Used quad cane Level of Assistance close SBA, Metronome at 52 bpm Surface level floor, firm Distance/Duration 116, 140 ft Treatment Focus L hip IR and decrease L knee hyperextension, pacing, metronome for pacing Comments 1. L4 TB tied at left shoe, wrapped around clockwise LE with gait belt to assist with internal rotation foot/ hip facilitation to allow LLE proper alignment. 2. metronome at 52 bpm for emphasis on increased LLE weightbearing and stance time- improved keeping step time 50 % of the time. PT-OP-R Modalities Start: 05/28/19 08:11 Freq: Status: Active Protocol: Document 03/19/20 10:31 SAK (Rec: 03/19/20 11:17 SAK [id number]) Electric Stimulation Electric Stimulation Functional Electric Stimulation Body Location left anterior tib Duration (Minutes) 10 Intensity 52 Contraction Type Normal Cycle 10/10 Ramp 2.0 Patient Position Sitting Comments American stim PT-OP-T Assessment and Plan Start: 05/28/19 08:11 Freq: Status: Active Protocol: Document 09/05/20 12:16 SP (Rec: 09/05/20 15:44 SP [id number]) Physical Therapy Assessment Goals Five Impairment gait speed not adequate for safe community ambulation Retirement Goal (LTG) Patient able to ambulate 300' in 6 min 06/02/20: 134' 08/28/20: 144', likely not as high due to new shoes and wearing old AFO because fits better in new shoes. Requires level 4 theraband for derotation of left LE into more neutral position for gait . LTG Duration 11/25/20 Four Impairment requires assistance with bed mobility and transfers Short Term Goal (STG) Patient will be able to perform all bed mobility independently to improve her functional independence. 10/31/19: good goal progress 06/02/20:inconsistent, but min assist most times 08/28/20 STG Duration goal met Retirement Goal (LTG) Patient will be able to perform a floor transfer with SB to min assist 10/31/19: max assist today 01/02/20: has not been willing to try since 10/31/19 06/02/20: does not feel strong enough to try yet. 08/28/20: max assistance required LTG Duration 11/25/20 Three Impairment weakness left UE and LE s/p CVA [employer] Manager Goal (LTG) Improve functional strength in left LE, as evidenced by ability to move from sit > < stand without use of UE's. 10/31/19: OT starts tomorrow. Good progress with sit to stand, though mostly using right UE and LE 01/02/20: Improving ability to perform, able to increase weight-bearing through left LE with cues, but still some use of right UE 05/26/20: With manual and visual feedback patient able to transfer sit to stand with only CG A. 08/28/20: inconsistent ability to move sit to stand without using UE's, but able to do transfer without physical assistance LTG Duration 11/25/20 Two Impairment balance dysfunction with high risk for falls Retirement Goal (LTG) Improve balance as evidenced by improvement in Tinnetti balance and gait score to low fall risk range to improve safety in the home and community. 10/31/19: remains high risk for falls 01/02/20: some improvement but still in high risk category 05/26/20: Tinetti score in high risk category 08/28/20: moderate risk for falls LTG Duration 11/25/20 One Impairment requires armaan-walker for gait, limited to household gait Retirement Goal (LTG) Patient able to ambulate with least restrictive device for functional community distances to improve her functional independence and quality of life. 10/30/19: no progress due to Covid 19. 11/02/19: able to ambulate with quad cane but with very slow speed, household distances, very short community distances . 05/26/20: Now able to ambulate with use of single point cane and use of L4 theraband wrapped around left LE to facilitate left LE internal rotation for improved alignment. Patient unable to don the theraband on her own. Gait is for short distances and very slow at 39 ft in 2 min. 08/28/20: has demonstrated improved gait ability, still using theraband for derotation of LE for more neutral position. Able to consistenly use quad cane and is increasing stride length especially with cues. Now able to ascend and descend 4 stairs with min assist using railing. Mod assist on 6 stairs. LTG Duration 11/25/20 Assessment Summary Assessment Pt stated increase hyperextension upon arrival not sure if due to added heel lift in L shoe. BENCH HAND provided cuing for awareness of soft L knee during mid stand and more narrow MIKA with improved stability throughout tx. Physical Therapy Plan Frequency and Duration Frequency of Treatment 2x/Week Duration of Treatment 12 wks Plan of Care Start Date 08/28/20 Plan of Care End Date 11/26/20 Therapeutic Interventions Therapeutic Interventions Aquatic Therapy,Balance Training,Gait Training,Home Exercise Program,Neuromuscular Re-education,Orthotic/ Prosthetic Management,Patient/ Caregiver Education,Self-Care/ Home Management,Taping, Therapeutic Activities, Therapeutic Exercises Modalities Cold Pack/Ice Massage,Hot Packs Next Visit Focus/Plan Next Note Type Treatment Note Next Visit Plan Continue assess heel lift in new L shoe. Repeat 6 min walk test, 5x sit to stand test next tx. POC: Gait training on level surfaces, stairs, uneven surfaces. Work toward floor transfers.
--- NOTE | 2020-09-10 14:03 | PT.OTN ---
Current Diagnoses Hemiplegia, unspecified affecting unspecified side (09/10/20) Difficulty in walking, not elsewhere classified (09/10/20) Weakness (09/10/20) History of falling (09/10/20) Physical Therapy Treatment Note PT-OP-A Visit Information Start: 05/28/19 08:11 Freq: Status: Active Protocol: Document 09/10/20 10:26 SAK (Rec: 09/10/20 11:15 SAK [id number]) Out-Patient Physical Therapy Visit Information Visit Information Visit Type Treatment Note Visit Start Time 10:30 Visit Stop Time 11:15 Total Visit Minutes 45 Visit Number 61 Number of AUTO RADIATOR MECHANIC Visits 1 Precautions Precautions Seizure disorder memory dysfunction PT-OP-B Current Condition Start: 05/28/19 08:11 Freq: Status: Active Protocol: Document 06/04/20 11:15 SAK (Rec: 06/05/20 16:34 SAK [id number]) Current Condition History of Current Condition Onset Date 2014 Current Complaints weakness, requires assistance with all mobility and household tasks History of Current Condition Reports that she suffered a stroke in 2014 after surgery for brain aneurysm. CVA caused weakness on the left side of her body, gait and balance difficulty, seizures. PT-OP-C Subjective Start: 05/28/19 08:11 Freq: Status: Active Protocol: Document 09/10/20 10:26 SAK (Rec: 09/10/20 11:15 SAK [id number]) OP-PT Subjective Patient Comments Patient Comments Good energy day, I've been telling myself I need to work harder. States in the community she is fearful of doing curbs, wants to be able to do. PT-OP-D Balance Start: 05/28/19 08:11 Freq: Status: Active Protocol: Document 05/29/19 14:30 SAK (Rec: 05/30/19 14:24 SAK [id number]) OP-PT Balance Assessment Sitting Balance Static Sitting Balance Ability Good Dynamic Sitting Balance Ability Fair Standing Balance Static Standing Balance Ability Good Dynamic Standing Balance Ability Fair Device Used hemiwalker right Tinetti Balance Assessment Sitting Balance Sitting Balance Steady, safe Arising from Chair Attempts to Arise Able, requires >1 attempt Standing Balance Immediate Standing Balance Steady with support Standing Balance Steady, wide stance Nudged Response Begins to fall Standing with Eyes Closed Unsteady Turning Step Pattern Turning 360 Degrees Discontinuous steps Stability Turning 360 Degrees Unsteady, grabs/staggers Sitting Down Sitting Down Uses arms or unsteady Gait and Step Initiation of Gait Hesitancy, mult. attempts Right Foot Step Length Does not pass stance ft. Right Foot Step Height Does not clear floor Left Foot Step Length Does not pass stance foot Left Foot Step Height Does not clear floor Step Description Step Symmetry Step length not equal Gait Description Path Description Mild/moderate deviation Trunk Description Marked sway or uses aide Walking Stance Heels apart Scoring and Interpretation Tinetti Composite Score (points) 6 Interpretation of Scores High risk for falls(< 19) Herrera Fall Scale Copyright Permission PT-OP-E Functional Tests Start: 05/28/19 08:11 Freq: Status: Active Protocol: Document 05/26/20 11:15 [facility] (Rec: 05/26/20 17:04 [facility] [id number]) Functional Tests 2 Minute Walk Test Distance 39 ft Device Used single point cane Comments derotation application of level 4 theraband to decrease excess ER right LE PT-OP-G Mobility & Gait Start: 05/28/19 08:11 Freq: Status: Active Protocol: Document 05/26/20 11:15 [facility] (Rec: 05/26/20 17:04 [facility] [id number]) OP Mobility Evaluation Bed Mobility Rolling min assist to right CGA to left Supine to and from Sit min assist to right CGA to left Transfers Sit to Stand CGA to min assist without UE use Bed to Chair Transfers requires use of right UE but able to do with SBA Floor Transfers unable PT-OP-H Neuro Start: 05/28/19 08:11 Freq: Status: Active Protocol: Document 05/29/19 14:30 [facility] (Rec: 05/30/19 14:24 [facility] [id number]) Sensation Evaluation Gross Sensation Gross Sensation Left UE Impaired,Left LE Impaired Sensation Description Paresthesia,Numbness Coordination Evaluation Lower Extremity Tests Left Alternate Heel to Knee; Heel to Toe Test Moderate Impairment Heel on Boles Test Moderate Impairment Foot Tapping Test Moderate Impairment PT-OP-K Range of Motion Start: 05/28/19 08:11 Freq: Status: Active Protocol: Document 05/26/20 11:15 [facility] (Rec: 05/26/20 17:04 [facility] [id number]) Hip Goniometric Range of Motion Hip jake Hip ROM WFL Yes Comments actively right LE, passively left LE Knee Goniometric Range of Motion Knee jake Knee ROM WFL Yes Ankle and Foot Goniometric Range of Motion Ankle and Foot Left Passive Ankle/Foot ROM WFL No Left Active Ankle/Foot ROM WFL No PT-OP-M Strength Start: 05/28/19 08:11 Freq: Status: Active Protocol: Document 05/26/20 11:15 [facility] (Rec: 05/26/20 17:04 [facility] [id number]) Hip Strength Hip Manual Muscle Testing Left Flexion (L2) 3- Fair- Extension (S1) 2 Poor Abduction 2+ Poor+ External Rotation 3- Fair- Internal Rotation 3+ Fair+ Right Flexion (L2) 4 Good Extension (S1) 4- Good- Abduction 4 Good External Rotation 3+ Fair+ Internal Rotation 4- Good- PT-OP-Q Treatments Start: 05/28/19 08:11 Freq: Status: Active Protocol: Document 09/10/20 10:26 [facility] (Rec: 09/10/20 11:15 [facility] [id number]) Cardio Equipment Recumbent Stepper (Sci-Fit) Duration (Minutes) 10 Resistance 2 Seat Position 10 Other 1.12 mi (several breaks to reposition left foot) Gait Training Gait Activity curb simulation Device Used quad cane Level of Assistance min assist, verbal and manual cues Surface 4 box Distance/Duration up and down 1x, patient too fatigued for more, at end of session stairs Description 4 stairs Device Used right railing, AFO, TB wrap Level of Assistance CG assist, cues for alternating pattern Distance/Duration 2 set 12 stairs Treatment Focus alternating LE pattern facilitation Comments verbal and manual cues to increase weight shift to left LE, unlock left knee, alternating pattern, lateral support w/ cues for L knee flexion during RLE descend due to excess abduction and external rotation with knee in without assist. 1 Description level surface (Blue TB spiral wrap) Device Used quad cane Level of Assistance close SBA, Metronome at 52 bpm Surface level floor, firm Distance/Duration 100', 50' Treatment Focus L hip IR and decrease L knee hyperextension, pacing, metronome for pacing Comments 1. L4 TB tied at left shoe, wrapped around clockwise LE with gait belt to assist with internal rotation foot/ hip facilitation to allow LLE proper alignment. 2. metronome at 52 bpm for emphasis on increased LLE weightbearing and stance time- improved keeping step time 50 % of the time. PT-OP-R Modalities Start: 05/28/19 08:11 Freq: Status: Active Protocol: Document 03/19/20 10:31 SAK (Rec: 03/19/20 11:17 SAK [id number]) Electric Stimulation Electric Stimulation Functional Electric Stimulation Body Location left anterior tib Duration (Minutes) 10 Intensity 52 Contraction Type Normal Cycle 10/10 Ramp 2.0 Patient Position Sitting Comments [place] stim PT-OP-T Assessment and Plan Start: 05/28/19 08:11 Freq: Status: Active Protocol: Document 09/10/20 10:26 SAK (Rec: 09/10/20 11:15 [facility] [id number]) Physical Therapy Assessment Goals Five Impairment gait speed not adequate for safe community ambulation Gas Operator Goal (LTG) Patient able to ambulate 300' in 6 min 06/02/20: 134' 08/28/20: 144', likely not as high due to new shoes and wearing old AFO because fits better in new shoes. Requires level 4 theraband for derotation of left LE into more neutral position for gait . LTG Duration 11/25/20 Four Impairment requires assistance with bed mobility and transfers Short Term Goal (STG) Patient will be able to perform all bed mobility independently to improve her functional independence. 10/31/19: good goal progress 06/02/20:inconsistent, but min assist most times 08/28/20 STG Duration goal met Gas Operator Goal (LTG) Patient will be able to perform a floor transfer with SB to min assist 10/31/19: max assist today 01/02/20: has not been willing to try since 10/31/19 06/02/20: does not feel strong enough to try yet. 08/28/20: max assistance required LTG Duration 11/25/20 Three Impairment weakness left UE and LE s/p CVA Senior Care Goal (LTG) Improve functional strength in left LE, as evidenced by ability to move from sit > < stand without use of UE's. 10/31/19: OT starts tomorrow. Good progress with sit to stand, though mostly using right UE and LE 01/02/20: Improving ability to perform, able to increase weight-bearing through left LE with cues, but still some use of right UE 05/26/20: With manual and visual feedback patient able to transfer sit to stand with only CG A. 08/28/20: inconsistent ability to move sit to stand without using UE's, but able to do transfer without physical assistance LTG Duration 11/25/20 Two Impairment balance dysfunction with high risk for falls Senior Care Goal (LTG) Improve balance as evidenced by improvement in Tinnetti balance and gait score to low fall risk range to improve safety in the home and community. 10/31/19: remains high risk for falls 01/02/20: some improvement but still in high risk category 05/26/20: Tinetti score in high risk category 08/28/20: moderate risk for falls LTG Duration 11/25/20 One Impairment requires armaan-walker for gait, limited to household gait Gas Operator Goal (LTG) Patient able to ambulate with least restrictive device for functional community distances to improve her functional independence and quality of life. 10/30/19: no progress due to Covid 19. 11/02/19: able to ambulate with quad cane but with very slow speed, household distances, very short community distances . 05/26/20: Now able to ambulate with use of single point cane and use of L4 theraband wrapped around left LE to facilitate left LE internal rotation for improved alignment. Patient unable to don the theraband on her own. Gait is for short distances and very slow at 39 ft in 2 min. 08/28/20: has demonstrated improved gait ability, still using theraband for derotation of LE for more neutral position. Able to consistenly use quad cane and is increasing stride length especially with cues. Now able to ascend and descend 4 stairs with min assist using railing. Mod assist on 6 stairs. LTG Duration 11/25/20 Assessment Summary Assessment Patient had excellent day in PT, did 2 flights of 4 stairs , working on alternating LE's and trying to decrease UE support. Patient self- correcting more frequently. patient very fatigued at end of session. Physical Therapy Plan Frequency and Duration Frequency of Treatment 2x/Week Duration of Treatment 12 wks Plan of Care Start Date 08/28/20 Plan of Care End Date 11/26/20 Therapeutic Interventions Therapeutic Interventions Aquatic Therapy,Balance Training,Gait Training,Home Exercise Program,Neuromuscular Re-education,Orthotic/ Prosthetic Management,Patient/ Caregiver Education,Self-Care/ Home Management,Taping, Therapeutic Activities, Therapeutic Exercises Modalities Cold Pack/Ice Massage,Hot Packs Next Visit Focus/Plan Next Note Type Treatment Note Next Visit Plan Gait training on level surfaces, stairs, uneven surfaces. Work toward floor transfers, curbs.
--- NOTE | 2020-09-12 13:05 | PT.OTN ---
Current Diagnoses Hemiplegia, unspecified affecting unspecified side (09/12/20) Difficulty in walking, not elsewhere classified (09/12/20) Weakness (09/12/20) History of falling (09/12/20) Physical Therapy Treatment Note PT-OP-A Visit Information Start: 05/28/19 08:11 Freq: Status: Active Protocol: Document 09/12/20 12:16 SP (Rec: 09/12/20 14:37 SP [id number]) Out-Patient Physical Therapy Visit Information Visit Information Visit Type Treatment Note Visit Start Time 12:16 Visit Stop Time 13:05 Total Visit Minutes 49 Visit Number 62 Number of HOEING ROW BOSS Visits 1 Precautions Precautions Seizure disorder memory dysfunction PT-OP-B Current Condition Start: 05/28/19 08:11 Freq: Status: Active Protocol: Document 06/04/20 11:15 SAK (Rec: 06/05/20 16:34 SAK [id number]) Current Condition History of Current Condition Onset Date 2014 Current Complaints weakness, requires assistance with all mobility and household tasks History of Current Condition Reports that she suffered a stroke in 2014 after surgery for brain aneurysm. CVA caused weakness on the left side of her body, gait and balance difficulty, seizures. PT-OP-C Subjective Start: 05/28/19 08:11 Freq: Status: Active Protocol: Document 09/12/20 12:16 SP (Rec: 09/12/20 14:37 SP [id number]) OP-PT Subjective Patient Comments Patient Comments Pt stated did really good last tx but today is not the same and L knee hyperextending alot causing L knee to hurt more today. She stated has been depressed past few days and only taking Tylenol for pain now, is attending her support group which helps her. Pt willing to work on [employer] today. PT-OP-D Balance Start: 05/28/19 08:11 Freq: Status: Active Protocol: Document 05/29/19 14:30 SAK (Rec: 05/30/19 14:24 SAK [id number]) OP-PT Balance Assessment Sitting Balance Static Sitting Balance Ability Good Dynamic Sitting Balance Ability Fair Standing Balance Static Standing Balance Ability Good Dynamic Standing Balance Ability Fair Device Used hemiwalker right Tinetti Balance Assessment Sitting Balance Sitting Balance Steady, safe Arising from Chair Attempts to Arise Able, requires >1 attempt Standing Balance Immediate Standing Balance Steady with support Standing Balance Steady, wide stance Nudged Response Begins to fall Standing with Eyes Closed Unsteady Turning Step Pattern Turning 360 Degrees Discontinuous steps Stability Turning 360 Degrees Unsteady, grabs/staggers Sitting Down Sitting Down Uses arms or unsteady Gait and Step Initiation of Gait Hesitancy, mult. attempts Right Foot Step Length Does not pass stance ft. Right Foot Step Height Does not clear floor Left Foot Step Length Does not pass stance foot Left Foot Step Height Does not clear floor Step Description Step Symmetry Step length not equal Gait Description Path Description Mild/moderate deviation Trunk Description Marked sway or uses aide Walking Stance Heels apart Scoring and Interpretation Tinetti Composite Score (points) 6 Interpretation of Scores High risk for falls(< 19) Herrera Fall Scale Copyright Permission PT-OP-E Functional Tests Start: 05/28/19 08:11 Freq: Status: Active Protocol: Document 05/26/20 11:15 [facility] (Rec: 05/26/20 17:04 [facility] [id number]) Functional Tests 2 Minute Walk Test Distance 39 ft Device Used single point cane Comments derotation application of level 4 theraband to decrease excess ER right LE PT-OP-G Mobility & Gait Start: 05/28/19 08:11 Freq: Status: Active Protocol: Document 05/26/20 11:15 SAK (Rec: 05/26/20 17:04 [facility] [id number]) OP Mobility Evaluation Bed Mobility Rolling min assist to right CGA to left Supine to and from Sit min assist to right CGA to left Transfers Sit to Stand CGA to min assist without UE use Bed to Chair Transfers requires use of right UE but able to do with SBA Floor Transfers unable PT-OP-H Neuro Start: 05/28/19 08:11 Freq: Status: Active Protocol: Document 05/29/19 14:30 SAK (Rec: 05/30/19 14:24 [facility] [id number]) Sensation Evaluation Gross Sensation Gross Sensation Left UE Impaired,Left LE Impaired Sensation Description Paresthesia,Numbness Coordination Evaluation Lower Extremity Tests Left Alternate Heel to Knee; Heel to Toe Test Moderate Impairment Heel on Boles Test Moderate Impairment Foot Tapping Test Moderate Impairment PT-OP-K Range of Motion Start: 05/28/19 08:11 Freq: Status: Active Protocol: Document 05/26/20 11:15 [facility] (Rec: 05/26/20 17:04 [facility] [id number]) Hip Goniometric Range of Motion Hip jake Hip ROM WFL Yes Comments actively right LE, passively left LE Knee Goniometric Range of Motion Knee jake Knee ROM WFL Yes Ankle and Foot Goniometric Range of Motion Ankle and Foot Left Passive Ankle/Foot ROM WFL No Left Active Ankle/Foot ROM WFL No PT-OP-M Strength Start: 05/28/19 08:11 Freq: Status: Active Protocol: Document 05/26/20 11:15 SAK (Rec: 05/26/20 17:04 SAK [id number]) Hip Strength Hip Manual Muscle Testing Left Flexion (L2) 3- Fair- Extension (S1) 2 Poor Abduction 2+ Poor+ External Rotation 3- Fair- Internal Rotation 3+ Fair+ Right Flexion (L2) 4 Good Extension (S1) 4- Good- Abduction 4 Good External Rotation 3+ Fair+ Internal Rotation 4- Good- PT-OP-Q Treatments Start: 05/28/19 08:11 Freq: Status: Active Protocol: Document 09/12/20 12:16 SP (Rec: 09/12/20 14:37 SP [id number]) Cardio Equipment Recumbent Stepper (Sci-Fit) Duration (Minutes) 5 Resistance 2 Seat Position 10 Other 0.50 mi (2 breaks to reposition left foot/ knee adduction cues), 40 PRMs Gait Training Gait Activity curb simulation Device Used quad cane Level of Assistance 15% A, verbal and manual cues, contact QC Surface 3, 6 curb (second last section sidewalk front MAP blg ) Distance/Duration up and down 1x, patient too fatigued for more, at end of session Treatment Focus increase stability curb mgt Comments cued quad facilitation L knee during RLE advancement to ascend. 1 Description level surface (Blue TB spiral wrap) Device Used quad cane Level of Assistance close SBA- CGA, Metronome at 52 bpm Surface uneven outdoor pavement, indoor carpet, firm Distance/Duration 98', 152' Treatment Focus L hip IR and decrease L knee hyperextension, pacing, metronome for pacing Comments 1. L4 TB tied at left shoe, wrapped around clockwise LE with gait belt to assist with internal rotation foot/ hip facilitation to allow LLE proper alignment. 2. metronome at 52 bpm for emphasis on increased LLE weightbearing and stance time- improved keeping step time 50 % of the time. PT-OP-R Modalities Start: 05/28/19 08:11 Freq: Status: Active Protocol: Document 03/19/20 10:31 [facility]AK (Rec: 03/19/20 11:17 SAK [id number]) Electric Stimulation Electric Stimulation Functional Electric Stimulation Body Location left anterior tib Duration (Minutes) 10 Intensity 52 Contraction Type Normal Cycle 10/10 Ramp 2.0 Patient Position Sitting Comments [place] stim PT-OP-T Assessment and Plan Start: 05/28/19 08:11 Freq: Status: Active Protocol: Document 09/12/20 12:16 SP (Rec: 09/12/20 14:37 SP [id number]) Physical Therapy Assessment Goals Five Impairment gait speed not adequate for safe community ambulation Manufacturers Service Representative Goal (LTG) Patient able to ambulate 300' in 6 min 06/02/20: 134' 08/28/20: 144', likely not as high due to new shoes and wearing old AFO because fits better in new shoes. Requires level 4 theraband for derotation of left LE into more neutral position for gait . LTG Duration 11/25/20 Four Impairment requires assistance with bed mobility and transfers Short Term Goal (STG) Patient will be able to perform all bed mobility independently to improve her functional independence. 10/31/19: good goal progress 06/02/20:inconsistent, but min assist most times 08/28/20 STG Duration goal met Retirement Goal (LTG) Patient will be able to perform a floor transfer with SB to min assist 10/31/19: max assist today 01/02/20: has not been willing to try since 10/31/19 06/02/20: does not feel strong enough to try yet. 08/28/20: max assistance required LTG Duration 11/25/20 Three Impairment weakness left UE and LE s/p CVA Retirement Goal (LTG) Improve functional strength in left LE, as evidenced by ability to move from sit > < stand without use of UE's. 10/31/19: OT starts tomorrow. Good progress with sit to stand, though mostly using right UE and LE 01/02/20: Improving ability to perform, able to increase weight-bearing through left LE with cues, but still some use of right UE 05/26/20: With manual and visual feedback patient able to transfer sit to stand with only CG A. 08/28/20: inconsistent ability to move sit to stand without using UE's, but able to do transfer without physical assistance LTG Duration 11/25/20 Two Impairment balance dysfunction with high risk for falls Retirement Goal (LTG) Improve balance as evidenced by improvement in Tinnetti balance and gait score to low fall risk range to improve safety in the home and community. 10/31/19: remains high risk for falls 01/02/20: some improvement but still in high risk category 05/26/20: Tinetti score in high risk category 08/28/20: moderate risk for falls LTG Duration 11/25/20 One Impairment requires armaan-walker for gait, limited to household gait Retirement Goal (LTG) Patient able to ambulate with least restrictive device for functional community distances to improve her functional independence and quality of life. 10/30/19: no progress due to Covid 19. 11/02/19: able to ambulate with quad cane but with very slow speed, household distances, very short community distances . 05/26/20: Now able to ambulate with use of single point cane and use of L4 theraband wrapped around left LE to facilitate left LE internal rotation for improved alignment. Patient unable to don the theraband on her own. Gait is for short distances and very slow at 39 ft in 2 min. 08/28/20: has demonstrated improved gait ability, still using theraband for derotation of LE for more neutral position. Able to consistenly use quad cane and is increasing stride length especially with cues. Now able to ascend and descend 4 stairs with min assist using railing. Mod assist on 6 stairs. LTG Duration 11/25/20 Assessment Summary Assessment Pt able to ascend/ descend curb 3 then 6 height using QC 15% A w/ contact QC for stability safety and reassurance and cuing for positioning body, QC and BLE sequencing. Pt stated this is a little scary but I am glad and feel better about doing this again. Pt had difficulty with maintaining 52 spm using metronome on outdoor sidewalk with increased L hyper knee extension and medial L knee pain during gait today. Improved with cuing for adduction of LLE to decrease MIKA and small step LLE, larger step RLE. Decreased endurance on scifit today due to L lateral ankle pain (no AFO donned), slight improvement in small quicker steps noted increased adduction of LLE positioning. Physical Therapy Plan Frequency and Duration Frequency of Treatment 2x/Week Duration of Treatment 12 wks Plan of Care Start Date 08/28/20 Plan of Care End Date 11/26/20 Therapeutic Interventions Therapeutic Interventions Aquatic Therapy,Balance Training,Gait Training,Home Exercise Program,Neuromuscular Re-education,Orthotic/ Prosthetic Management,Patient/ Caregiver Education,Self-Care/ Home Management,Taping, Therapeutic Activities, Therapeutic Exercises Modalities Cold Pack/Ice Massage,Hot Packs Next Visit Focus/Plan Next Note Type Treatment Note Next Visit Plan Gait training on level surfaces, stairs, uneven surfaces, curb mgt. Work toward floor transfers.
--- NOTE | 2020-09-17 15:57 | PT.OTN ---
Current Diagnoses Hemiplegia, unspecified affecting unspecified side (09/17/20) Difficulty in walking, not elsewhere classified (09/17/20) Weakness (09/17/20) History of falling (09/17/20) Physical Therapy Treatment Note PT-OP-A Visit Information Start: 05/28/19 08:11 Freq: Status: Active Protocol: Document 09/17/20 10:20 SAK (Rec: 09/17/20 10:23 SAK [id number]) Out-Patient Physical Therapy Visit Information Visit Information Visit Type Treatment Note Visit Start Time 10:25 Visit Stop Time 11:15 Total Visit Minutes 50 Visit Number 63 Number of [employer] Visits 0 Precautions Precautions Seizure disorder memory dysfunction PT-OP-B Current Condition Start: 05/28/19 08:11 Freq: Status: Active Protocol: Document 06/04/20 11:15 SAK (Rec: 06/05/20 16:34 SAK [id number]) Current Condition History of Current Condition Onset Date 2014 Current Complaints weakness, requires assistance with all mobility and household tasks History of Current Condition Reports that she suffered a stroke in 2014 after surgery for brain aneurysm. CVA caused weakness on the left side of her body, gait and balance difficulty, seizures. PT-OP-C Subjective Start: 05/28/19 08:11 Freq: Status: Active Protocol: Document 09/12/20 12:16 SP (Rec: 09/12/20 14:37 SP [id number]) OP-PT Subjective Patient Comments Patient Comments Pt stated did really good last tx but today is not the same and L knee hyperextending alot causing L knee to hurt more today. She stated has been depressed past few days and only taking Tylenol for pain now, is attending her support group which helps her. Pt willing to work on [employer] today. PT-OP-D Balance Start: 05/28/19 08:11 Freq: Status: Active Protocol: Document 05/29/19 14:30 SAK (Rec: 05/30/19 14:24 SAK [id number]) OP-PT Balance Assessment Sitting Balance Static Sitting Balance Ability Good Dynamic Sitting Balance Ability Fair Standing Balance Static Standing Balance Ability Good Dynamic Standing Balance Ability Fair Device Used hemiwalker right Tinetti Balance Assessment Sitting Balance Sitting Balance Steady, safe Arising from Chair Attempts to Arise Able, requires >1 attempt Standing Balance Immediate Standing Balance Steady with support Standing Balance Steady, wide stance Nudged Response Begins to fall Standing with Eyes Closed Unsteady Turning Step Pattern Turning 360 Degrees Discontinuous steps Stability Turning 360 Degrees Unsteady, grabs/staggers Sitting Down Sitting Down Uses arms or unsteady Gait and Step Initiation of Gait Hesitancy, mult. attempts Right Foot Step Length Does not pass stance ft. Right Foot Step Height Does not clear floor Left Foot Step Length Does not pass stance foot Left Foot Step Height Does not clear floor Step Description Step Symmetry Step length not equal Gait Description Path Description Mild/moderate deviation Trunk Description Marked sway or uses aide Walking Stance Heels apart Scoring and Interpretation Tinetti Composite Score (points) 6 Interpretation of Scores High risk for falls(< 19) Herrera Fall Scale Copyright Permission PT-OP-E Functional Tests Start: 05/28/19 08:11 Freq: Status: Active Protocol: Document 05/26/20 11:15 [facility] (Rec: 05/26/20 17:04 [facility] [id number]) Functional Tests 2 Minute Walk Test Distance 39 ft Device Used single point cane Comments derotation application of level 4 theraband to decrease excess ER right LE PT-OP-G Mobility & Gait Start: 05/28/19 08:11 Freq: Status: Active Protocol: Document 05/26/20 11:15 SAK (Rec: 05/26/20 17:04 [facility] [id number]) OP Mobility Evaluation Bed Mobility Rolling min assist to right CGA to left Supine to and from Sit min assist to right CGA to left Transfers Sit to Stand CGA to min assist without UE use Bed to Chair Transfers requires use of right UE but able to do with SBA Floor Transfers unable PT-OP-H Neuro Start: 05/28/19 08:11 Freq: Status: Active Protocol: Document 05/29/19 14:30 SAK (Rec: 05/30/19 14:24 [facility] [id number]) Sensation Evaluation Gross Sensation Gross Sensation Left UE Impaired,Left LE Impaired Sensation Description Paresthesia,Numbness Coordination Evaluation Lower Extremity Tests Left Alternate Heel to Knee; Heel to Toe Test Moderate Impairment Heel on Boles Test Moderate Impairment Foot Tapping Test Moderate Impairment PT-OP-K Range of Motion Start: 05/28/19 08:11 Freq: Status: Active Protocol: Document 05/26/20 11:15 [facility] (Rec: 05/26/20 17:04 [facility] [id number]) Hip Goniometric Range of Motion Hip jake Hip ROM WFL Yes Comments actively right LE, passively left LE Knee Goniometric Range of Motion Knee jake Knee ROM WFL Yes Ankle and Foot Goniometric Range of Motion Ankle and Foot Left Passive Ankle/Foot ROM WFL No Left Active Ankle/Foot ROM WFL No PT-OP-M Strength Start: 05/28/19 08:11 Freq: Status: Active Protocol: Document 05/26/20 11:15 [facility] (Rec: 05/26/20 17:04 [facility] [id number]) Hip Strength Hip Manual Muscle Testing Left Flexion (L2) 3- Fair- Extension (S1) 2 Poor Abduction 2+ Poor+ External Rotation 3- Fair- Internal Rotation 3+ Fair+ Right Flexion (L2) 4 Good Extension (S1) 4- Good- Abduction 4 Good External Rotation 3+ Fair+ Internal Rotation 4- Good- PT-OP-Q Treatments Start: 05/28/19 08:11 Freq: Status: Active Protocol: Document 09/17/20 10:20 [facility] (Rec: 09/17/20 11:12 [facility] [id number]) Cardio Equipment Recumbent Stepper (Sci-Fit) Duration (Minutes) 10 Resistance 2 Seat Position 10 Other 1.17 mi (2 breaks to reposition left foot/ knee adduction cues), 50 PRMs Gait Training Gait Activity stairs Description 4 stairs Device Used right railing, AFO, TB wrap Level of Assistance CG assist, cues for alternating pattern Distance/Duration 2 set 12 stairs Treatment Focus alternating LE pattern facilitation Comments verbal and manual cues to increase weight shift to left LE, unlock left knee, alternating pattern, lateral support w/ cues for L knee flexion during RLE descend due to excess abduction and external rotation with knee in without assist. 1 Description level surface (Blue TB spiral wrap) Device Used quad cane Level of Assistance close SBA- CGA, Metronome at 52 bpm Surface , indoor carpet, firm Distance/Duration 60'x2 Treatment Focus L hip IR and decrease L knee hyperextension, pacing, metronome for pacing Comments 1. L4 TB tied at left shoe, wrapped around clockwise LE with gait belt to assist with internal rotation foot/ hip facilitation to allow LLE proper alignment. 2. metronome at 52 bpm for emphasis on increased LLE weightbearing and stance time- improved keeping step time 50 % of the time. PT-OP-R Modalities Start: 05/28/19 08:11 Freq: Status: Active Protocol: Document 03/19/20 10:31 SAK (Rec: 03/19/20 11:17 SAK [id number]) Electric Stimulation Electric Stimulation Functional Electric Stimulation Body Location left anterior tib Duration (Minutes) 10 Intensity 52 Contraction Type Normal Cycle 10/10 Ramp 2.0 Patient Position Sitting Comments Barbadian stim PT-OP-T Assessment and Plan Start: 05/28/19 08:11 Freq: Status: Active Protocol: Document 09/17/20 10:20 SAK (Rec: 09/17/20 10:23 SAK [id number]) Physical Therapy Assessment Goals Five Impairment gait speed not adequate for safe community ambulation [employer] Goal (LTG) Patient able to ambulate 300' in 6 min 06/02/20: 134' 08/28/20: 144', likely not as high due to new shoes and wearing old AFO because fits better in new shoes. Requires level 4 theraband for derotation of left LE into more neutral position for gait . LTG Duration 11/25/20 Four Impairment requires assistance with bed mobility and transfers Short Term Goal (STG) Patient will be able to perform all bed mobility independently to improve her functional independence. 10/31/19: good goal progress 06/02/20:inconsistent, but min assist most times 08/28/20 STG Duration goal met Residential Goal (LTG) Patient will be able to perform a floor transfer with SB to min assist 10/31/19: max assist today 01/02/20: has not been willing to try since 10/31/19 06/02/20: does not feel strong enough to try yet. 08/28/20: max assistance required LTG Duration 11/25/20 Three Impairment weakness left UE and LE s/p CVA Residential Goal (LTG) Improve functional strength in left LE, as evidenced by ability to move from sit > < stand without use of UE's. 10/31/19: OT starts tomorrow. Good progress with sit to stand, though mostly using right UE and LE 01/02/20: Improving ability to perform, able to increase weight-bearing through left LE with cues, but still some use of right UE 05/26/20: With manual and visual feedback patient able to transfer sit to stand with only CG A. 08/28/20: inconsistent ability to move sit to stand without using UE's, but able to do transfer without physical assistance LTG Duration 11/25/20 Two Impairment balance dysfunction with high risk for falls Capacitor Repairer Goal (LTG) Improve balance as evidenced by improvement in Tinnetti balance and gait score to low fall risk range to improve safety in the home and community. 10/31/19: remains high risk for falls 01/02/20: some improvement but still in high risk category 05/26/20: Tinetti score in high risk category 08/28/20: moderate risk for falls LTG Duration 11/25/20 One Impairment requires armaan-walker for gait, limited to household gait Capacitor Repairer Goal (LTG) Patient able to ambulate with least restrictive device for functional community distances to improve her functional independence and quality of life. 10/30/19: no progress due to Covid 19. 11/02/19: able to ambulate with quad cane but with very slow speed, household distances, very short community distances . 05/26/20: Now able to ambulate with use of single point cane and use of L4 theraband wrapped around left LE to facilitate left LE internal rotation for improved alignment. Patient unable to don the theraband on her own. Gait is for short distances and very slow at 39 ft in 2 min. 08/28/20: has demonstrated improved gait ability, still using theraband for derotation of LE for more neutral position. Able to consistenly use quad cane and is increasing stride length especially with cues. Now able to ascend and descend 4 stairs with min assist using railing. Mod assist on 6 stairs. LTG Duration 11/25/20 Assessment Summary Assessment Patient presenting with lower energy level, down mood. Reports she had moderate pain in her right UE from pushing so hard on cane practicing curb. States Dr. Valdez worked on it yesterday but didn't really help, and he then didn' t have time to work on her LB and left LE. Patient able to descend stairs with left leg first easily but unable to alternate feet without severe lean to right. Physical Therapy Plan Frequency and Duration Frequency of Treatment 2x/Week Duration of Treatment 12 wks Plan of Care Start Date 08/28/20 Plan of Care End Date 11/26/20 Therapeutic Interventions Therapeutic Interventions Aquatic Therapy,Balance Training,Gait Training,Home Exercise Program,Neuromuscular Re-education,Orthotic/ Prosthetic Management,Patient/ Caregiver Education,Self-Care/ Home Management,Taping, Therapeutic Activities, Therapeutic Exercises Modalities Cold Pack/Ice Massage,Hot Packs Next Visit Focus/Plan Next Note Type Treatment Note Next Visit Plan Patient requests more work on bridging, step-ups and down on approx 1/2 curb and step height due to UE pain after doing full curb last session. SLS with mirror for visual feedback.
--- NOTE | 2020-09-19 12:52 | PT.OTN ---
Current Diagnoses Hemiplegia, unspecified affecting unspecified side (09/19/20) Difficulty in walking, not elsewhere classified (09/19/20) Weakness (09/19/20) History of falling (09/19/20) Physical Therapy Treatment Note PT-OP-A Visit Information Start: 05/28/19 08:11 Freq: Status: Active Protocol: Document 09/19/20 12:12 SP (Rec: 09/19/20 13:04 SP [id number]) Out-Patient Physical Therapy Visit Information Visit Information Visit Type Treatment Note Visit Start Time 12:12 Visit Stop Time 12:52 Total Visit Minutes 45 Visit Number 64 Number of JEWEL BEARING BROACHER Visits 1 Precautions Precautions Seizure disorder memory dysfunction PT-OP-B Current Condition Start: 05/28/19 08:11 Freq: Status: Active Protocol: Document 06/04/20 11:15 SAK (Rec: 06/05/20 16:34 SAK [id number]) Current Condition History of Current Condition Onset Date 2014 Current Complaints weakness, requires assistance with all mobility and household tasks History of Current Condition Reports that she suffered a stroke in 2014 after surgery for brain aneurysm. CVA caused weakness on the left side of her body, gait and balance difficulty, seizures. PT-OP-C Subjective Start: 05/28/19 08:11 Freq: Status: Active Protocol: Document 09/19/20 12:12 SP (Rec: 09/19/20 13:04 SP [id number]) OP-PT Subjective Patient Comments Patient Comments Pt stated want to get info from J[facility]AL regarding w/c eval and where is at in process getting. Will call doctor if need help with referral. Want to continue to work on sit<> stands and curb mgt on step. PT-OP-D Balance Start: 05/28/19 08:11 Freq: Status: Active Protocol: Document 05/29/19 14:30 SAK (Rec: 05/30/19 14:24 SAK [id number]) OP-PT Balance Assessment Sitting Balance Static Sitting Balance Ability Good Dynamic Sitting Balance Ability Fair Standing Balance Static Standing Balance Ability Good Dynamic Standing Balance Ability Fair Device Used [facility] right Tinetti Balance Assessment Sitting Balance Sitting Balance Steady, safe Arising from Chair Attempts to Arise Able, requires >1 attempt Standing Balance Immediate Standing Balance Steady with support Standing Balance Steady, wide stance Nudged Response Begins to fall Standing with Eyes Closed Unsteady Turning Step Pattern Turning 360 Degrees Discontinuous steps Stability Turning 360 Degrees Unsteady, grabs/staggers Sitting Down Sitting Down Uses arms or unsteady Gait and Step Initiation of Gait Hesitancy, mult. attempts Right Foot Step Length Does not pass stance ft. Right Foot Step Height Does not clear floor Left Foot Step Length Does not pass stance foot Left Foot Step Height Does not clear floor Step Description Step Symmetry Step length not equal Gait Description Path Description Mild/moderate deviation Trunk Description Marked sway or uses aide Walking Stance Heels apart Scoring and Interpretation Tinetti Composite Score (points) 6 Interpretation of Scores High risk for falls(< 19) Herrera Fall Scale Copyright Permission PT-OP-E Functional Tests Start: 05/28/19 08:11 Freq: Status: Active Protocol: Document 05/26/20 11:15 [facility] (Rec: 05/26/20 17:04 [facility] [id number]) Functional Tests 2 Minute Walk Test Distance 39 ft Device Used single point cane Comments derotation application of level 4 theraband to decrease excess ER right LE PT-OP-G Mobility & Gait Start: 05/28/19 08:11 Freq: Status: Active Protocol: Document 05/26/20 11:15 SAK (Rec: 05/26/20 17:04 [facility] [id number]) OP Mobility Evaluation Bed Mobility Rolling min assist to right CGA to left Supine to and from Sit min assist to right CGA to left Transfers Sit to Stand CGA to min assist without UE use Bed to Chair Transfers requires use of right UE but able to do with SBA Floor Transfers unable PT-OP-H Neuro Start: 05/28/19 08:11 Freq: Status: Active Protocol: Document 05/29/19 14:30 [facility] (Rec: 05/30/19 14:24 [facility] [id number]) Sensation Evaluation Gross Sensation Gross Sensation Left UE Impaired,Left LE Impaired Sensation Description Paresthesia,Numbness Coordination Evaluation Lower Extremity Tests Left Alternate Heel to Knee; Heel to Toe Test Moderate Impairment Heel on Boles Test Moderate Impairment Foot Tapping Test Moderate Impairment PT-OP-K Range of Motion Start: 05/28/19 08:11 Freq: Status: Active Protocol: Document 05/26/20 11:15 SAK (Rec: 05/26/20 17:04 [facility] [id number]) Hip Goniometric Range of Motion Hip jake Hip ROM WFL Yes Comments actively right LE, passively left LE Knee Goniometric Range of Motion Knee jake Knee ROM WFL Yes Ankle and Foot Goniometric Range of Motion Ankle and Foot Left Passive Ankle/Foot ROM WFL No Left Active Ankle/Foot ROM WFL No PT-OP-M Strength Start: 05/28/19 08:11 Freq: Status: Active Protocol: Document 05/26/20 11:15 SAK (Rec: 05/26/20 17:04 SAK [id number]) Hip Strength Hip Manual Muscle Testing Left Flexion (L2) 3- Fair- Extension (S1) 2 Poor Abduction 2+ Poor+ External Rotation 3- Fair- Internal Rotation 3+ Fair+ Right Flexion (L2) 4 Good Extension (S1) 4- Good- Abduction 4 Good External Rotation 3+ Fair+ Internal Rotation 4- Good- PT-OP-Q Treatments Start: 05/28/19 08:11 Freq: Status: Active Protocol: Document 09/19/20 12:12 SP (Rec: 09/19/20 13:04 SP [id number]) Therapeutic Exercises Standing Exercises sit stands w/ AFO donned Standing Exercise Name no UEs Equipment Used 18 chair Reps/Minutes x10 reps Comments cued even BLE WB. Gait Training Gait Activity 6 min walk test Device Used QC, Tb Blue wrapping Distance/Duration 146 ft Treatment Focus speed and safety Comments cued 2 pt gait, did not use metronome today stairs Description 4 stairs Device Used right railing, AFO, TB wrap Level of Assistance CG assist, cues for alternating pattern Distance/Duration 1 set 12 stairs-tiring quickly declined 2 set Treatment Focus alternating LE pattern facilitation Comments verbal and manual cues to increase weight shift to left LE, unlock left knee, alternating pattern, lateral support w/ cues for L knee flexion during RLE descend due to excess abduction and external rotation with knee in without assist. Neuro Re-Education Treatment Balance Activities tiltboard Details A/P weight shift Comments parallel bars R UE support PT-OP-R Modalities Start: 05/28/19 08:11 Freq: Status: Active Protocol: Document 03/19/20 10:31 SAK (Rec: 03/19/20 11:17 SAK [id number]) Electric Stimulation Electric Stimulation Functional Electric Stimulation Body Location left anterior tib Duration (Minutes) 10 Intensity 52 Contraction Type Normal Cycle 10/10 Ramp 2.0 Patient Position Sitting Comments Afghan stim PT-OP-T Assessment and Plan Start: 05/28/19 08:11 Freq: Status: Active Protocol: Document 09/19/20 12:12 SP (Rec: 09/19/20 13:04 SP [id number]) Physical Therapy Assessment Goals Five Impairment gait speed not adequate for safe community ambulation 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 Requires level 4 theraband for derotation of left LE into more neutral position for gait . 09/19/20: 146 ft 6 min w/ QC and Tb wrapping to LLE. LTG Duration 11/25/20 Four Impairment requires assistance with bed mobility and transfers Short Term Goal (STG) Patient will be able to perform all bed mobility independently to improve her functional independence. 10/31/19: good goal progress 06/02/20:inconsistent, but min assist most times 08/28/20 STG Duration goal met Projection Welding Machine Operator Goal (LTG) Patient will be able to perform a floor transfer with SB to min assist 10/31/19: max assist today 01/02/20: has not been willing to try since 10/31/19 06/02/20: does not feel strong enough to try yet. 08/28/20: max assistance required LTG Duration 11/25/20 Three Impairment weakness left UE and LE s/p CVA Residential Goal (LTG) Improve functional strength in left LE, as evidenced by ability to move from sit > < stand without use of UE's. 10/31/19: OT starts tomorrow. Good progress with sit to stand, though mostly using right UE and LE 01/02/20: Improving ability to perform, able to increase weight-bearing through left LE with cues, but still some use of right UE 05/26/20: With manual and visual feedback patient able to transfer sit to stand with only CG A. 08/28/20: inconsistent ability to move sit to stand without using UE's, but able to do transfer without physical assistance LTG Duration 11/25/20 Two Impairment balance dysfunction with high risk for falls Residential Goal (LTG) Improve balance as evidenced by improvement in Tinnetti balance and gait score to low fall risk range to improve safety in the home and community. 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 10/30/19: no progress due to Covid 19. 11/02/19: able to ambulate with quad cane but with very slow speed, household distances, very short community distances . 05/26/20: Now able to ambulate with use of single point cane and use of L4 theraband wrapped around left LE to facilitate left LE internal rotation for improved alignment. Patient unable to don the theraband on her own. Gait is for short distances and very slow at 39 ft in 2 min. 08/28/20: has demonstrated improved gait ability, still using theraband for derotation of LE for more neutral position. Able to consistenly use quad cane and is increasing stride length especially with cues. Now able to ascend and descend 4 stairs with min assist using railing. Mod assist on 6 stairs. LTG Duration 11/25/20 Assessment Summary Assessment Pt presents with low energy level today, down mood. Pt stated felt L thigh tightening during stair mgt. Performed sit<> stands 10 reps w/ AFO donned noted L knee improved with abducted neutral alignment, retest next tx for time. Revisited tilt board today, required max cuing for L knee quad faciltation and body alignment between BLE, assisted LLE support on //bar. Physical Therapy Plan Frequency and Duration Frequency of Treatment 2x/Week Duration of Treatment 12 wks Plan of Care Start Date 08/28/20 Plan of Care End Date 11/26/20 Therapeutic Interventions Therapeutic Interventions Aquatic Therapy,Balance Training,Gait Training,Home Exercise Program,Neuromuscular Re-education,Orthotic/ Prosthetic Management,Patient/ Caregiver Education,Self-Care/ Home Management,Taping, Therapeutic Activities, Therapeutic Exercises Modalities Cold Pack/Ice Massage,Hot Packs Next Visit Focus/Plan Next Note Type Treatment Note Next Visit Plan Patient requests more work on bridging, step-ups and down on approx 1/2 curb and step height due to UE pain after doing full curb last session. SLS with mirror for visual feedback.
--- NOTE | 2020-09-22 12:56 | PT.OTN ---
Current Diagnoses Hemiplegia, unspecified affecting unspecified side (09/22/20) Difficulty in walking, not elsewhere classified (09/22/20) Weakness (09/22/20) History of falling (09/22/20) Physical Therapy Treatment Note PT-OP-A Visit Information Start: 05/28/19 08:11 Freq: Status: Active Protocol: Document 09/22/20 10:29 SAK (Rec: 09/22/20 11:26 SAK [id number]) Out-Patient Physical Therapy Visit Information Visit Information Visit Type Treatment Note Visit Start Time 10:31 Visit Stop Time 11:16 Total Visit Minutes 45 Visit Number 65 Number of BEAD STRINGER Visits 0 Precautions Precautions Seizure disorder memory dysfunction PT-OP-B Current Condition Start: 05/28/19 08:11 Freq: Status: Active Protocol: Document 06/04/20 11:15 SAK (Rec: 06/05/20 16:34 SAK [id number]) Current Condition History of Current Condition Onset Date 2014 Current Complaints weakness, requires assistance with all mobility and household tasks History of Current Condition Reports that she suffered a stroke in 2014 after surgery for brain aneurysm. CVA caused weakness on the left side of her body, gait and balance difficulty, seizures. PT-OP-C Subjective Start: 05/28/19 08:11 Freq: Status: Active Protocol: Document 09/22/20 10:29 SAK (Rec: 09/22/20 11:26 SAK [id number]) OP-PT Subjective Patient Comments Patient Comments Patient tired and sore from walking [place] yesterday. Right shoulder sore from pushing on cane, and left LE sore from increased walking distance. PT-OP-D Balance Start: 05/28/19 08:11 Freq: Status: Active Protocol: Document 05/29/19 14:30 SAK (Rec: 05/30/19 14:24 SAK [id number]) OP-PT Balance Assessment Sitting Balance Static Sitting Balance Ability Good Dynamic Sitting Balance Ability Fair Standing Balance Static Standing Balance Ability Good Dynamic Standing Balance Ability Fair Device Used [facility] right Tinetti Balance Assessment Sitting Balance Sitting Balance Steady, safe Arising from Chair Attempts to Arise Able, requires >1 attempt Standing Balance Immediate Standing Balance Steady with support Standing Balance Steady, wide stance Nudged Response Begins to fall Standing with Eyes Closed Unsteady Turning Step Pattern Turning 360 Degrees Discontinuous steps Stability Turning 360 Degrees Unsteady, grabs/staggers Sitting Down Sitting Down Uses arms or unsteady Gait and Step Initiation of Gait Hesitancy, mult. attempts Right Foot Step Length Does not pass stance ft. Right Foot Step Height Does not clear floor Left Foot Step Length Does not pass stance foot Left Foot Step Height Does not clear floor Step Description Step Symmetry Step length not equal Gait Description Path Description Mild/moderate deviation Trunk Description Marked sway or uses aide Walking Stance Heels apart Scoring and Interpretation Tinetti Composite Score (points) 6 Interpretation of Scores High risk for falls(< 19) Herrera Fall Scale Copyright Permission PT-OP-E Functional Tests Start: 05/28/19 08:11 Freq: Status: Active Protocol: Document 05/26/20 11:15 [facility] (Rec: 05/26/20 17:04 [facility] [id number]) Functional Tests 2 Minute Walk Test Distance 39 ft Device Used single point cane Comments derotation application of level 4 theraband to decrease excess ER right LE PT-OP-G Mobility & Gait Start: 05/28/19 08:11 Freq: Status: Active Protocol: Document 05/26/20 11:15 [facility] (Rec: 05/26/20 17:04 [facility] [id number]) OP Mobility Evaluation Bed Mobility Rolling min assist to right CGA to left Supine to and from Sit min assist to right CGA to left Transfers Sit to Stand CGA to min assist without UE use Bed to Chair Transfers requires use of right UE but able to do with SBA Floor Transfers unable PT-OP-H Neuro Start: 05/28/19 08:11 Freq: Status: Active Protocol: Document 05/29/19 14:30 [facility] (Rec: 05/30/19 14:24 [facility] [id number]) Sensation Evaluation Gross Sensation Gross Sensation Left UE Impaired,Left LE Impaired Sensation Description Paresthesia,Numbness Coordination Evaluation Lower Extremity Tests Left Alternate Heel to Knee; Heel to Toe Test Moderate Impairment Heel on Boles Test Moderate Impairment Foot Tapping Test Moderate Impairment PT-OP-K Range of Motion Start: 05/28/19 08:11 Freq: Status: Active Protocol: Document 05/26/20 11:15 [facility] (Rec: 05/26/20 17:04 [facility] [id number]) Hip Goniometric Range of Motion Hip jake Hip ROM WFL Yes Comments actively right LE, passively left LE Knee Goniometric Range of Motion Knee jake Knee ROM WFL Yes Ankle and Foot Goniometric Range of Motion Ankle and Foot Left Passive Ankle/Foot ROM WFL No Left Active Ankle/Foot ROM WFL No PT-OP-M Strength Start: 05/28/19 08:11 Freq: Status: Active Protocol: Document 05/26/20 11:15 [facility] (Rec: 05/26/20 17:04 [facility] [id number]) Hip Strength Hip Manual Muscle Testing Left Flexion (L2) 3- Fair- Extension (S1) 2 Poor Abduction 2+ Poor+ External Rotation 3- Fair- Internal Rotation 3+ Fair+ Right Flexion (L2) 4 Good Extension (S1) 4- Good- Abduction 4 Good External Rotation 3+ Fair+ Internal Rotation 4- Good- PT-OP-Q Treatments Start: 05/28/19 08:11 Freq: Status: Active Protocol: Document 09/22/20 10:29 [facility] (Rec: 09/22/20 11:26 [facility] [id number]) Cardio Equipment Recumbent Stepper (Sci-Fit) Duration (Minutes) 10 Resistance 2 Seat Position 10 Other 1.21 mi (2 breaks to reposition left foot/ knee adduction cues), 50 PRMs Therapeutic Exercises Standing Exercises sit stands w/ AFO donned Standing Exercise Name no UEs Equipment Used 18 chair Reps/Minutes x5 reps Comments cued even BLE WB. Gait Training Gait Activity curb simulation Device Used quad cane Level of Assistance 15% A, verbal and manual cues, contact QC Surface 4 box, 3 blue foam pad Distance/Duration 1x ea Treatment Focus increase stability curb mgt Comments cued quad facilitation L knee during RLE advancement to ascend, and decreased UE support pre-gait weight shifts Description AP, side to side Device Used none Level of Assistance CG, verbal cues Surface firm Distance/Duration mirror Treatment Focus increased weight bearing left LE (cued >50%) Comments preparation phase with midline alignment followed by weight shifts with mirror for visual feedback 1 Description level surface (Blue TB spiral wrap) Device Used quad cane Level of Assistance close SBA- CGA Surface , indoor carpet, firm Distance/Duration 50' x 2 Treatment Focus L hip IR and decrease L knee hyperextension, pacing, metronome for pacing Comments 1. L4 TB tied at left shoe, wrapped around clockwise LE with gait belt to assist with internal rotation foot/ hip facilitation to allow LLE proper alignment. Neuro Re-Education Treatment Balance Activities balloon volleyball Surface firm Comments after weight-shifting in front of mirror PT-OP-R Modalities Start: 05/28/19 08:11 Freq: Status: Active Protocol: Document 03/19/20 10:31 SAK (Rec: 03/19/20 11:17 SAK [id number]) Electric Stimulation Electric Stimulation Functional Electric Stimulation Body Location left anterior tib Duration (Minutes) 10 Intensity 52 Contraction Type Normal Cycle 10/10 Ramp 2.0 Patient Position Sitting Comments Hungarian stim PT-OP-T Assessment and Plan Start: 05/28/19 08:11 Freq: Status: Active Protocol: Document 09/22/20 10:29 SAK (Rec: 09/22/20 11:26 SAK [id number]) Physical Therapy Assessment Goals Five Impairment gait speed not adequate for safe community ambulation Half-Way Goal (LTG) Patient able to ambulate 300' in 6 min 06/02/20: 134' 08/28/20: 144', likely not as high due to new shoes and wearing old AFO because fits better in new shoes. Requires level 4 theraband for derotation of left LE into more neutral position for gait . 09/19/20: 146 ft 6 min w/ QC and Tb wrapping to LLE. LTG Duration 11/25/20 Four Impairment requires assistance with bed mobility and transfers Short Term Goal (STG) Patient will be able to perform all bed mobility independently to improve her functional independence. 10/31/19: good goal progress 06/02/20:inconsistent, but min assist most times 08/28/20 STG Duration goal met Half-Way Goal (LTG) Patient will be able to perform a floor transfer with SB to min assist 10/31/19: max assist today 01/02/20: has not been willing to try since 10/31/19 06/02/20: does not feel strong enough to try yet. 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 10/31/19: OT starts tomorrow. Good progress with sit to stand, though mostly using right UE and LE 01/02/20: Improving ability to perform, able to increase weight-bearing through left LE with cues, but still some use of right UE 05/26/20: With manual and visual feedback patient able to transfer sit to stand with only CG A. 08/28/20: inconsistent ability to move sit to stand without using UE's, but able to do transfer without physical assistance LTG Duration 11/25/20 Two Impairment balance dysfunction with high risk for falls Half-Way Goal (LTG) Improve balance as evidenced by improvement in Tinnetti balance and gait score to low fall risk range to improve safety in the home and community. 10/31/19: remains high risk for falls 01/02/20: some improvement but still in high risk category 05/26/20: Tinetti score in high risk category 08/28/20: moderate risk for falls LTG Duration 11/25/20 One Impairment requires armaan-walker for gait, limited to household gait Half-Way Goal (LTG) Patient able to ambulate with least restrictive device for functional community distances to improve her functional independence and quality of life. 10/30/19: no progress due to Covid 19. 11/02/19: able to ambulate with quad cane but with very slow speed, household distances, very short community distances . 05/26/20: Now able to ambulate with use of single point cane and use of L4 theraband wrapped around left LE to facilitate left LE internal rotation for improved alignment. Patient unable to don the theraband on her own. Gait is for short distances and very slow at 39 ft in 2 min. 08/28/20: has demonstrated improved gait ability, still using theraband for derotation of LE for more neutral position. Able to consistenly use quad cane and is increasing stride length especially with cues. Now able to ascend and descend 4 stairs with min assist using railing. Mod assist on 6 stairs. LTG Duration 11/25/20 Assessment Summary Assessment Patient fatigued and sore today after walking [place] by [place] yesterday; sore right arm from pushing so hard on quad cane and left LE. Patient experienced much anxiety stepping up and down blue foam. Fearful of both 4 box and foam done away from solid UE support. Able to shift to 50-60% weight to left LE with visual feedback; unable to do more due to fear, left LE soreness. Expresses understanding of need to shift 100% to left for her goal of walking without device. Physical Therapy Plan Frequency and Duration Frequency of Treatment 2x/Week Duration of Treatment 12 wks Plan of Care Start Date 08/28/20 Plan of Care End Date 11/26/20 Therapeutic Interventions Therapeutic Interventions Aquatic Therapy,Balance Training,Gait Training,Home Exercise Program,Neuromuscular Re-education,Orthotic/ Prosthetic Management,Patient/ Caregiver Education,Self-Care/ Home Management,Taping, Therapeutic Activities, Therapeutic Exercises Modalities Cold Pack/Ice Massage,Hot Packs Next Visit Focus/Plan Next Note Type Treatment Note Next Visit Plan Continue PT with emphasis on increasing weight-shift to left LE, gait on uneven surfaces.
--- NOTE | 2020-09-26 13:01 | PT.OTN ---
Current Diagnoses Hemiplegia, unspecified affecting unspecified side (09/26/20) Difficulty in walking, not elsewhere classified (09/26/20) Weakness (09/26/20) History of falling (09/26/20) Physical Therapy Treatment Note PT-OP-A Visit Information Start: 05/28/19 08:11 Freq: Status: Active Protocol: Document 09/26/20 12:20 SP (Rec: 09/26/20 16:54 SP [id number]) Out-Patient Physical Therapy Visit Information Visit Information Visit Type Treatment Note Visit Start Time 12:20 Visit Stop Time 13:01 Total Visit Minutes 41 Visit Number 66 Number of WELFARE WORKER Visits 1 Precautions Precautions Seizure disorder memory dysfunction PT-OP-B Current Condition Start: 05/28/19 08:11 Freq: Status: Active Protocol: Document 06/04/20 11:15 SAK (Rec: 06/05/20 16:34 SAK [id number]) Current Condition History of Current Condition Onset Date 2014 Current Complaints weakness, requires assistance with all mobility and household tasks History of Current Condition Reports that she suffered a stroke in 2014 after surgery for brain aneurysm. CVA caused weakness on the left side of her body, gait and balance difficulty, seizures. PT-OP-C Subjective Start: 05/28/19 08:11 Freq: Status: Active Protocol: Document 09/26/20 12:20 SP (Rec: 09/26/20 16:54 SP [id number]) OP-PT Subjective Patient Comments Patient Comments Pt stated wanted to work on balance on foam pad again and be sure ride the bike, really enjoys. Pt states hoping to return to the pool, feels benefited alot and how can help therapy return to pool. PT-OP-D Balance Start: 05/28/19 08:11 Freq: Status: Active Protocol: Document 05/29/19 14:30 SAK (Rec: 05/30/19 14:24 SAK [id number]) OP-PT Balance Assessment Sitting Balance Static Sitting Balance Ability Good Dynamic Sitting Balance Ability Fair Standing Balance Static Standing Balance Ability Good Dynamic Standing Balance Ability Fair Device Used [facility] right Tinetti Balance Assessment Sitting Balance Sitting Balance Steady, safe Arising from Chair Attempts to Arise Able, requires >1 attempt Standing Balance Immediate Standing Balance Steady with support Standing Balance Steady, wide stance Nudged Response Begins to fall Standing with Eyes Closed Unsteady Turning Step Pattern Turning 360 Degrees Discontinuous steps Stability Turning 360 Degrees Unsteady, grabs/staggers Sitting Down Sitting Down Uses arms or unsteady Gait and Step Initiation of Gait Hesitancy, mult. attempts Right Foot Step Length Does not pass stance ft. Right Foot Step Height Does not clear floor Left Foot Step Length Does not pass stance foot Left Foot Step Height Does not clear floor Step Description Step Symmetry Step length not equal Gait Description Path Description Mild/moderate deviation Trunk Description Marked sway or uses aide Walking Stance Heels apart Scoring and Interpretation Tinetti Composite Score (points) 6 Interpretation of Scores High risk for falls(< 19) Herrera Fall Scale Copyright Permission PT-OP-E Functional Tests Start: 05/28/19 08:11 Freq: Status: Active Protocol: Document 05/26/20 11:15 [facility] (Rec: 05/26/20 17:04 [facility] [id number]) Functional Tests 2 Minute Walk Test Distance 39 ft Device Used single point cane Comments derotation application of level 4 theraband to decrease excess ER right LE PT-OP-G Mobility & Gait Start: 05/28/19 08:11 Freq: Status: Active Protocol: Document 05/26/20 11:15 SAK (Rec: 05/26/20 17:04 [facility] [id number]) OP Mobility Evaluation Bed Mobility Rolling min assist to right CGA to left Supine to and from Sit min assist to right CGA to left Transfers Sit to Stand CGA to min assist without UE use Bed to Chair Transfers requires use of right UE but able to do with SBA Floor Transfers unable PT-OP-H Neuro Start: 05/28/19 08:11 Freq: Status: Active Protocol: Document 05/29/19 14:30 [facility] (Rec: 05/30/19 14:24 [facility] [id number]) Sensation Evaluation Gross Sensation Gross Sensation Left UE Impaired,Left LE Impaired Sensation Description Paresthesia,Numbness Coordination Evaluation Lower Extremity Tests Left Alternate Heel to Knee; Heel to Toe Test Moderate Impairment Heel on Boles Test Moderate Impairment Foot Tapping Test Moderate Impairment PT-OP-K Range of Motion Start: 05/28/19 08:11 Freq: Status: Active Protocol: Document 05/26/20 11:15 SAK (Rec: 05/26/20 17:04 [facility] [id number]) Hip Goniometric Range of Motion Hip jake Hip ROM WFL Yes Comments actively right LE, passively left LE Knee Goniometric Range of Motion Knee jake Knee ROM WFL Yes Ankle and Foot Goniometric Range of Motion Ankle and Foot Left Passive Ankle/Foot ROM WFL No Left Active Ankle/Foot ROM WFL No PT-OP-M Strength Start: 05/28/19 08:11 Freq: Status: Active Protocol: Document 05/26/20 11:15 SAK (Rec: 05/26/20 17:04 SAK [id number]) Hip Strength Hip Manual Muscle Testing Left Flexion (L2) 3- Fair- Extension (S1) 2 Poor Abduction 2+ Poor+ External Rotation 3- Fair- Internal Rotation 3+ Fair+ Right Flexion (L2) 4 Good Extension (S1) 4- Good- Abduction 4 Good External Rotation 3+ Fair+ Internal Rotation 4- Good- PT-OP-Q Treatments Start: 05/28/19 08:11 Freq: Status: Active Protocol: Document 09/26/20 12:20 SP (Rec: 09/26/20 16:54 SP [id number]) Cardio Equipment Recumbent Stepper (Sci-Fit) Duration (Minutes) 7 Resistance 2 Seat Position 10 Other 0.88 miles, 60-63 RPMs, min cues for LLE adduction w/ heel press Gait Training Gait Activity step up/down blue foam Device Used quad cane Level of Assistance CG to min assist Distance/Duration 4x Treatment Focus stability, balance, increased weight-bearing through left LE Comments cued L knee flexion trailing LE pre-gait weight shifts Description AP, side to side Device Used none Level of Assistance CG, verbal cues Surface firm Distance/Duration mirror Treatment Focus increased weight bearing left LE (cued >50%) Comments preparation phase with midline alignment followed by weight shifts with mirror for visual feedback 1 Description level surface (Blue TB spiral wrap) Device Used quad cane Level of Assistance close SBA- CGA Surface , indoor carpet, firm Distance/Duration lap around immediate gym Treatment Focus L hip IR and decrease L knee hyperextension, pacing, metronome for pacing Comments 1. L4 TB tied at left shoe, wrapped around clockwise LE with gait belt to assist with internal rotation foot/ hip facilitation to allow LLE proper alignment. Neuro Re-Education Treatment Balance Activities Modified SLS Details Modified SLS on LLE Surface firm> blue foam pad Equipment RUE WB on //bar, RLE touch LLE Reps/Duration 3x 30 sec Comments cued L quad facilitation/ knee extension/ wt shift over LLE and decrease RUE heavy WB on / /bar. PT-OP-R Modalities Start: 05/28/19 08:11 Freq: Status: Active Protocol: Document 03/19/20 10:31 SAK (Rec: 03/19/20 11:17 SAK [id number]) Electric Stimulation Electric Stimulation Functional Electric Stimulation Body Location left anterior tib Duration (Minutes) 10 Intensity 52 Contraction Type Normal Cycle 10/10 Ramp 2.0 Patient Position Sitting Comments Faroese stim PT-OP-T Assessment and Plan Start: 05/28/19 08:11 Freq: Status: Active Protocol: Document 09/26/20 12:20 SP (Rec: 09/26/20 16:54 SP [id number]) Physical Therapy Assessment Goals Five Impairment gait speed not adequate for safe community ambulation Adjustment Examiner Goal (LTG) Patient able to ambulate 300' in 6 min 06/02/20: 134' 08/28/20: 144', likely not as high due to new shoes and wearing old AFO because fits better in new shoes. Requires level 4 theraband for derotation of left LE into more neutral position for gait . 09/19/20: 146 ft 6 min w/ QC and Tb wrapping to LLE. LTG Duration 11/25/20 Four Impairment requires assistance with bed mobility and transfers Short Term Goal (STG) Patient will be able to perform all bed mobility independently to improve her functional independence. 10/31/19: good goal progress 06/02/20:inconsistent, but min assist most times 08/28/20 STG Duration goal met Longterm Goal (LTG) Patient will be able to perform a floor transfer with SB to min assist 10/31/19: max assist today 01/02/20: has not been willing to try since 10/31/19 06/02/20: does not feel strong enough to try yet. 08/28/20: max assistance required LTG Duration 11/25/20 Three Impairment weakness left UE and LE s/p CVA Adjustment Examiner Goal (LTG) Improve functional strength in left LE, as evidenced by ability to move from sit > < stand without use of UE's. 10/31/19: OT starts tomorrow. Good progress with sit to stand, though mostly using right UE and LE 01/02/20: Improving ability to perform, able to increase weight-bearing through left LE with cues, but still some use of right UE 05/26/20: With manual and visual feedback patient able to transfer sit to stand with only CG A. 08/28/20: inconsistent ability to move sit to stand without using UE's, but able to do transfer without physical assistance LTG Duration 11/25/20 Two Impairment balance dysfunction with high risk for falls Adjustment Examiner Goal (LTG) Improve balance as evidenced by improvement in Tinnetti balance and gait score to low fall risk range to improve safety in the home and community. 10/31/19: remains high risk for falls 01/02/20: some improvement but still in high risk category 05/26/20: Tinetti score in high risk category 08/28/20: moderate risk for falls LTG Duration 11/25/20 One Impairment requires armaan-walker for gait, limited to household gait Adjustment Examiner Goal (LTG) Patient able to ambulate with least restrictive device for functional community distances to improve her functional independence and quality of life. 10/30/19: no progress due to Covid 19. 11/02/19: able to ambulate with quad cane but with very slow speed, household distances, very short community distances . 05/26/20: Now able to ambulate with use of single point cane and use of L4 theraband wrapped around left LE to facilitate left LE internal rotation for improved alignment. Patient unable to don the theraband on her own. Gait is for short distances and very slow at 39 ft in 2 min. 08/28/20: has demonstrated improved gait ability, still using theraband for derotation of LE for more neutral position. Able to consistenly use quad cane and is increasing stride length especially with cues. Now able to ascend and descend 4 stairs with min assist using railing. Mod assist on 6 stairs. LTG Duration 11/25/20 Assessment Summary Assessment Pt improved decrease LLE hyperextension with occasional cuing and wrapping TB support today when focused on2 pt gait, she has increased aware of self LLE positioning during 2 pt gait. Pt felt more confident in balance today and wanting to challenge herself on foam pad LLE SLS with R UE support,therapist support anterior L knee for safety but not needed, soft knee positioning. Physical Therapy Plan Frequency and Duration Frequency of Treatment 2x/Week Duration of Treatment 12 wks Plan of Care Start Date 08/28/20 Plan of Care End Date 11/26/20 Therapeutic Interventions Therapeutic Interventions Aquatic Therapy,Balance Training,Gait Training,Home Exercise Program,Neuromuscular Re-education,Orthotic/ Prosthetic Management,Patient/ Caregiver Education,Self-Care/ Home Management,Taping, Therapeutic Activities, Therapeutic Exercises Modalities Cold Pack/Ice Massage,Hot Packs Next Visit Focus/Plan Next Note Type Treatment Note Next Visit Plan Continue PT with emphasis on increasing weight-shift to left LE, gait on uneven surfaces.
--- NOTE | 2020-10-01 12:12 | PT.OTN ---
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 CVA caused weakness on the left side of her body, gait and balance difficulty, seizures. PT-OP-C Subjective Start: 05/28/19 08:11 Freq: Status: Active Protocol: Document 10/01/20 11:15 SAK (Rec: 10/01/20 12:10 [facility] [id number]) OP-PT Subjective Patient Comments Patient Comments Had difficulty sleeping last night, took PT-OP-D Balance Start: 05/28/19 08:11 Freq: Status: Active Protocol: Document 05/29/19 14:30 SAK (Rec: 05/30/19 14:24 [facility] [id number]) OP-PT Balance Assessment Sitting Balance Static Sitting Balance Ability Good Dynamic Sitting Balance Ability Fair Standing Balance Static Standing Balance Ability Good Dynamic Standing Balance Ability Fair Device Used hemiwalker right Tinetti Balance Assessment Sitting Balance Sitting Balance Steady, safe Arising from Chair Attempts to Arise Able, requires >1 attempt Standing Balance Immediate Standing Balance Steady with support Standing Balance Steady, wide stance Nudged Response Begins to fall Standing with Eyes Closed Unsteady Turning Step Pattern Turning 360 Degrees Discontinuous steps Stability Turning 360 Degrees Unsteady, grabs/staggers Sitting Down Sitting Down Uses arms or unsteady Gait and Step Initiation of Gait Hesitancy, mult. attempts Right Foot Step Length Does not pass stance ft. Right Foot Step Height Does not clear floor Left Foot Step Length Does not pass stance foot Left Foot Step Height Does not clear floor Step Description Step Symmetry Step length not equal Gait Description Path Description Mild/moderate deviation Trunk Description Marked sway or uses aide Walking Stance Heels apart Scoring and Interpretation Tinetti Composite Score (points) 6 Interpretation of Scores High risk for falls(< 19) Herrera Fall Scale Copyright Permission PT-OP-E Functional Tests Start: 05/28/19 08:11 Freq: Status: Active Protocol: Document 05/26/20 11:15 SAK (Rec: 05/26/20 17:04 [facility] [id number]) Functional Tests 2 Minute Walk Test Distance 39 ft Device Used single point cane Comments derotation application of level 4 theraband to decrease excess ER right LE PT-OP-G Mobility & Gait Start: 05/28/19 08:11 Freq: Status: Active Protocol: Document 05/26/20 11:15 SAK (Rec: 05/26/20 17:04 [facility] [id number]) OP Mobility Evaluation Bed Mobility Rolling min assist to right CGA to left Supine to and from Sit min assist to right CGA to left Transfers Sit to Stand CGA to min assist without UE use Bed to Chair Transfers requires use of right UE but able to do with SBA Floor Transfers unable PT-OP-H Neuro Start: 05/28/19 08:11 Freq: Status: Active Protocol: Document 05/29/19 14:30 SAK (Rec: 05/30/19 14:24 [facility] [id number]) Sensation Evaluation Gross Sensation Gross Sensation Left UE Impaired,Left LE Impaired Sensation Description Paresthesia,Numbness Coordination Evaluation Lower Extremity Tests Left Alternate Heel to Knee; Heel to Toe Test Moderate Impairment Heel on Boles Test Moderate Impairment Foot Tapping Test Moderate Impairment PT-OP-K Range of Motion Start: 05/28/19 08:11 Freq: Status: Active Protocol: Document 05/26/20 11:15 SAK (Rec: 05/26/20 17:04 [facility] [id number]) Hip Goniometric Range of Motion Hip jake Hip ROM WFL Yes Comments actively right LE, passively left LE Knee Goniometric Range of Motion Knee jake Knee ROM WFL Yes Ankle and Foot Goniometric Range of Motion Ankle and Foot Left Passive Ankle/Foot ROM WFL No Left Active Ankle/Foot ROM WFL No PT-OP-M Strength Start: 05/28/19 08:11 Freq: Status: Active Protocol: Document 05/26/20 11:15 [facility] (Rec: 05/26/20 17:04 [facility] [id number]) Hip Strength Hip Manual Muscle Testing Left Flexion (L2) 3- Fair- Extension (S1) 2 Poor Abduction 2+ Poor+ External Rotation 3- Fair- Internal Rotation 3+ Fair+ Right Flexion (L2) 4 Good Extension (S1) 4- Good- Abduction 4 Good External Rotation 3+ Fair+ Internal Rotation 4- Good- PT-OP-Q Treatments Start: 05/28/19 08:11 Freq: Status: Active Protocol: Document 10/01/20 11:15 [facility] (Rec: 10/01/20 12:10 [facility] [id number]) Cardio Equipment Recumbent Stepper (Sci-Fit) Duration (Minutes) 9 Resistance 1 Seat Position 10 Other 0.9 miles, 2 breaks to reposition left foot, cues for L knee adduction Therapeutic Exercises Sitting Exercises sit up Sitting Exercise Name reverse sit up Equipment Used Dynadisc Reps/Minutes 10 Comments focus on core and posture, equal R/L weight bearing with mirror for feedbac Standing Exercises sit stands w/ AFO donned Standing Exercise Name no UEs Equipment Used 18 hi/lo table Reps/Minutes x5 reps Comments cued even BLE WB. Gait Training Gait Activity pre-gait weight shifts Description AP, side to side Device Used none Level of Assistance CG, verbal cues Surface firm Distance/Duration mirror Treatment Focus increased weight bearing left LE (cued >50%) Comments preparation phase with midline alignment followed by weight shifts with mirror for visual feedback 1 Description level surface (Blue TB spiral wrap) Device Used quad cane Level of Assistance close SBA- CGA Surface , indoor carpet, firm Distance/Duration 75'x1, 50'x 2 Treatment Focus L hip IR and decrease L knee hyperextension, pacing, metronome for pacing Comments 1. L4 TB tied at left shoe, wrapped around clockwise LE with gait belt to assist with internal rotation foot/ hip facilitation to allow LLE proper alignment. Neuro Re-Education Treatment Balance Activities Dynadisc Details sitting weight shifts Equipment small Dynadisc PT-OP-R Modalities Start: 05/28/19 08:11 Freq: Status: Active Protocol: Document 03/19/20 10:31 KRYSTAL (Rec: 03/19/20 11:17 [facility] [id number]) Electric Stimulation Electric Stimulation Functional Electric Stimulation Body Location left anterior tib Duration (Minutes) 10 Intensity 52 Contraction Type Normal Cycle 10 Ramp 2.0 Patient Position Sitting Comments Surinamese stim PT-OP-T Assessment and Plan Start: 05/28/19 08:11 Freq: Status: Active Protocol: Document 10/01/20 11:15 [facility] (Rec: 10/01/20 12:10 [facility] [id number]) Physical Therapy Assessment Goals Five Impairment gait speed not adequate for safe community ambulation Blanket Folder Goal (LTG) Patient able to ambulate 300' in 6 min 06/02/20: 134' 08/28/20: 144', likely not as high due to new shoes and wearing old AFO because fits better in new shoes. Requires level 4 theraband for derotation of left LE into more neutral position for gait . 09/19/20: 146 ft 6 min w/ QC and Tb wrapping to LLE. LTG Duration 11/25/20 Four Impairment requires assistance with bed mobility and transfers Short Term Goal (STG) Patient will be able to perform all bed mobility independently to improve her functional independence. 10/31/19: good goal progress 06/02/20:inconsistent, but min assist most times 08/28/20 STG Duration goal met Jail Goal (LTG) Patient will be able to perform a floor transfer with SB to min assist 10/31/19: max assist today 01/02/20: has not been willing to try since 10/31/19 06/02/20: does not feel strong enough to try yet. 08/28/20: max assistance required LTG Duration 11/25/20 Three Impairment weakness left UE and LE s/p CVA Jail Goal (LTG) Improve functional strength in left LE, as evidenced by ability to move from sit > < stand without use of UE's. 10/31/19: OT starts tomorrow. Good progress with sit to stand, though mostly using right UE and LE 01/02/20: Improving ability to perform, able to increase weight-bearing through left LE with cues, but still some use of right UE 05/26/20: With manual and visual feedback patient able to transfer sit to stand with only CG A. 08/28/20: inconsistent ability to move sit to stand without using UE's, but able to do transfer without physical assistance LTG Duration 11/25/20 Two Impairment balance dysfunction with high risk for falls Blanket Folder Goal (LTG) Improve balance as evidenced by improvement in Tinnetti balance and gait score to low fall risk range to improve safety in the home and community. 10/31/19: remains high risk for falls 01/02/20: some improvement but still in high risk category 05/26/20: Tinetti score in high risk category 08/28/20: moderate risk for falls LTG Duration 11/25/20 One Impairment requires armaan-walker for gait, limited to household gait Jail Goal (LTG) Patient able to ambulate with least restrictive device for functional community distances to improve her functional independence and quality of life. 10/30/19: no progress due to Covid 19. 11/02/19: able to ambulate with quad cane but with very slow speed, household distances, very short community distances . 05/26/20: Now able to ambulate with use of single point cane and use of L4 theraband wrapped around left LE to facilitate left LE internal rotation for improved alignment. Patient unable to don the theraband on her own. Gait is for short distances and very slow at 39 ft in 2 min. 08/28/20: has demonstrated improved gait ability, still using theraband for derotation of LE for more neutral position. Able to consistenly use quad cane and is increasing stride length especially with cues. Now able to ascend and descend 4 stairs with min assist using railing. Mod assist on 6 stairs. LTG Duration 11/25/20 Assessment Summary Assessment Patient having difficult day today due to taking sleeping pill late, overwhelmed by noise in gym, taken to private room for most of treatment, used mirror for visual feedback, Dynadisc for dynamic sitting balance and core activation. Frequent left knee hyperextension with gait. Longer session as went back to gym to finish with Sci-Fit after other patients left Physical Therapy Plan Frequency and Duration Frequency of Treatment 2x/Week Duration of Treatment 12 wks Plan of Care Start Date 08/28/20 Plan of Care End Date 11/26/20 Therapeutic Interventions Therapeutic Interventions Aquatic Therapy,Balance Training,Gait Training,Home Exercise Program,Neuromuscular Re-education,Orthotic/ Prosthetic Management,Patient/ Caregiver Education,Self-Care/ Home Management,Taping, Therapeutic Activities, Therapeutic Exercises Modalities Cold Pack/Ice Massage,Hot Packs Next Visit Focus/Plan Next Note Type Treatment Note Next Visit Plan Continue PT with emphasis on increasing weight-shift to left LE, gait on uneven surfaces.
--- NOTE | 2020-10-03 13:00 | PT.OTN ---
Current Diagnoses Hemiplegia, unspecified affecting unspecified side (10/03/20) Difficulty in walking, not elsewhere classified (10/03/20) Weakness (10/03/20) History of falling (10/03/20) Physical Therapy Treatment Note PT-OP-A Visit Information Start: 05/28/19 08:11 Freq: Status: Active Protocol: Document 10/03/20 12:12 SP (Rec: 10/03/20 13:04 SP [id number]) Out-Patient Physical Therapy Visit Information Visit Information Visit Type Treatment Note Visit Start Time 12:12 Visit Stop Time 13:00 Total Visit Minutes 48 Visit Number 68 Number of MACADAM RAKER Visits 1 Precautions Precautions Seizure disorder memory dysfunction PT-OP-B Current Condition Start: 05/28/19 08:11 Freq: Status: Active Protocol: Document 06/04/20 11:15 SAK (Rec: 06/05/20 16:34 SAK [id number]) Current Condition History of Current Condition Onset Date 2014 Current Complaints weakness, requires assistance with all mobility and household tasks History of Current Condition Reports that she suffered a stroke in 2014 after surgery for brain aneurysm. CVA caused weakness on the left side of her body, gait and balance difficulty, seizures. PT-OP-C Subjective Start: 05/28/19 08:11 Freq: Status: Active Protocol: Document 10/03/20 12:12 SP (Rec: 10/03/20 13:04 SP [id number]) OP-PT Subjective Patient Comments Patient Comments Pt stated did some sit<> stands and wt shift while waiting between appts in waiting room. PT-OP-D Balance Start: 05/28/19 08:11 Freq: Status: Active Protocol: Document 05/29/19 14:30 SAK (Rec: 05/30/19 14:24 SAK [id number]) OP-PT Balance Assessment Sitting Balance Static Sitting Balance Ability Good Dynamic Sitting Balance Ability Fair Standing Balance Static Standing Balance Ability Good Dynamic Standing Balance Ability Fair Device Used hemiwalker right Tinetti Balance Assessment Sitting Balance Sitting Balance Steady, safe Arising from Chair Attempts to Arise Able, requires >1 attempt Standing Balance Immediate Standing Balance Steady with support Standing Balance Steady, wide stance Nudged Response Begins to fall Standing with Eyes Closed Unsteady Turning Step Pattern Turning 360 Degrees Discontinuous steps Stability Turning 360 Degrees Unsteady, grabs/staggers Sitting Down Sitting Down Uses arms or unsteady Gait and Step Initiation of Gait Hesitancy, mult. attempts Right Foot Step Length Does not pass stance ft. Right Foot Step Height Does not clear floor Left Foot Step Length Does not pass stance foot Left Foot Step Height Does not clear floor Step Description Step Symmetry Step length not equal Gait Description Path Description Mild/moderate deviation Trunk Description Marked sway or uses aide Walking Stance Heels apart Scoring and Interpretation Tinetti Composite Score (points) 6 Interpretation of Scores High risk for falls(< 19) Herrera Fall Scale Copyright Permission PT-OP-E Functional Tests Start: 05/28/19 08:11 Freq: Status: Active Protocol: Document 05/26/20 11:15 [facility] (Rec: 05/26/20 17:04 [facility] [id number]) Functional Tests 2 Minute Walk Test Distance 39 ft Device Used single point cane Comments derotation application of level 4 theraband to decrease excess ER right LE PT-OP-G Mobility & Gait Start: 05/28/19 08:11 Freq: Status: Active Protocol: Document 05/26/20 11:15 [facility] (Rec: 05/26/20 17:04 [facility] [id number]) OP Mobility Evaluation Bed Mobility Rolling min assist to right CGA to left Supine to and from Sit min assist to right CGA to left Transfers Sit to Stand CGA to min assist without UE use Bed to Chair Transfers requires use of right UE but able to do with SBA Floor Transfers unable PT-OP-H Neuro Start: 05/28/19 08:11 Freq: Status: Active Protocol: Document 05/29/19 14:30 [facility] (Rec: 05/30/19 14:24 [facility] [id number]) Sensation Evaluation Gross Sensation Gross Sensation Left UE Impaired,Left LE Impaired Sensation Description Paresthesia,Numbness Coordination Evaluation Lower Extremity Tests Left Alternate Heel to Knee; Heel to Toe Test Moderate Impairment Heel on Boles Test Moderate Impairment Foot Tapping Test Moderate Impairment PT-OP-K Range of Motion Start: 05/28/19 08:11 Freq: Status: Active Protocol: Document 05/26/20 11:15 [facility] (Rec: 05/26/20 17:04 [facility] [id number]) Hip Goniometric Range of Motion Hip jake Hip ROM WFL Yes Comments actively right LE, passively left LE Knee Goniometric Range of Motion Knee jake Knee ROM WFL Yes Ankle and Foot Goniometric Range of Motion Ankle and Foot Left Passive Ankle/Foot ROM WFL No Left Active Ankle/Foot ROM WFL No PT-OP-M Strength Start: 05/28/19 08:11 Freq: Status: Active Protocol: Document 05/26/20 11:15 SAK (Rec: 05/26/20 17:04 SAK [id number]) Hip Strength Hip Manual Muscle Testing Left Flexion (L2) 3- Fair- Extension (S1) 2 Poor Abduction 2+ Poor+ External Rotation 3- Fair- Internal Rotation 3+ Fair+ Right Flexion (L2) 4 Good Extension (S1) 4- Good- Abduction 4 Good External Rotation 3+ Fair+ Internal Rotation 4- Good- PT-OP-Q Treatments Start: 05/28/19 08:11 Freq: Status: Active Protocol: Document 10/03/20 12:12 SP (Rec: 10/03/20 13:04 SP [id number]) Cardio Equipment Recumbent Stepper (Sci-Fit) Duration (Minutes) 10 Resistance 2 Seat Position 9 Other 1. miles, 1 stop break assist LLE off arm bar (PROM) at 6'12 Therapeutic Exercises Standing Exercises sit stands w/ AFO donned Standing Exercise Name no UEs Equipment Used 18 chair Reps/Minutes x8 reps firm no hands, x4 from foam pad UE contact chair Comments cued even BLE WB. Gait Training Gait Activity curb simulation Device Used quad cane Level of Assistance 15% A, verbal and manual cues, contact QC Surface 3 blue foam pad x1 reps scared> 4 step rail Distance/Duration 1x Treatment Focus increase stability curb mgt Comments cued quad facilitation L knee during RLE advancement to ascend, and decreased UE support 1 Description level surface (Blue TB spiral wrap) Device Used quad cane - 2 pt gait Level of Assistance SBA Surface indoor carpet, firm Distance/Duration 170 ft in 8 min 15 sec Treatment Focus L hip IR and decrease L knee hyperextension, pacing, metronome for pacing Comments 1. L4 TB tied at left shoe, wrapped around clockwise LE with gait belt to assist with internal rotation foot/ hip facilitation to allow LLE proper alignment. stair mgt Description 4 Device Used right handriail ascend, left descend Level of Assistance min assist Surface 4 stairs Distance/Duration 5- 4 steps x2 sets Treatment Focus increased weight shift left, decreased use right UE Comments 1. alternating feet ascending, step-to x 2 and alternating LEs 2. Cues to keep L knee slightly bent and w/ toes facing forward. Neuro Re-Education Treatment Balance Activities foam stand Details feet side by side wt shift into LLE Surface blue foam Reps/Duration static stand approx CGA no UE support required PT-OP-R Modalities Start: 05/28/19 08:11 Freq: Status: Active Protocol: Document 03/19/20 10:31 SAK (Rec: 03/19/20 11:17 SAK [id number]) Electric Stimulation Electric Stimulation Functional Electric Stimulation Body Location left anterior tib Duration (Minutes) 10 Intensity 52 Contraction Type Normal Cycle 10 Ramp 2.0 Patient Position Sitting Comments [place] stim PT-OP-T Assessment and Plan Start: 05/28/19 08:11 Freq: Status: Active Protocol: Document 10/03/20 12:12 SP (Rec: 10/03/20 13:04 SP [id number]) Physical Therapy Assessment Goals Five Impairment gait speed not adequate for safe community ambulation Hyperbaric Tech Goal (LTG) Patient able to ambulate 300' in 6 min 06/02/20: 134' 08/28/20: 144', likely not as high due to new shoes and wearing old AFO because fits better in new shoes. Requires level 4 theraband for derotation of left LE into more neutral position for gait . 09/19/20: 146 ft 6 min w/ QC and Tb wrapping to LLE. LTG Duration 11/25/20 Four Impairment requires assistance with bed mobility and transfers Short Term Goal (STG) Patient will be able to perform all bed mobility independently to improve her functional independence. 10/31/19: good goal progress 06/02/20:inconsistent, but min assist most times 08/28/20 STG Duration goal met Halfway Goal (LTG) Patient will be able to perform a floor transfer with SB to min assist 10/31/19: max assist today 01/02/20: has not been willing to try since 10/31/19 06/02/20: does not feel strong enough to try yet. 08/28/20: max assistance required LTG Duration 11/25/20 Three Impairment weakness left UE and LE s/p CVA Halfway Goal (LTG) Improve functional strength in left LE, as evidenced by ability to move from sit > < stand without use of UE's. 10/31/19: OT starts tomorrow. Good progress with sit to stand, though mostly using right UE and LE 01/02/20: Improving ability to perform, able to increase weight-bearing through left LE with cues, but still some use of right UE 05/26/20: With manual and visual feedback patient able to transfer sit to stand with only CG A. 08/28/20: inconsistent ability to move sit to stand without using UE's, but able to do transfer without physical assistance LTG Duration 11/25/20 Two Impairment balance dysfunction with high risk for falls Hyperbaric Tech Goal (LTG) Improve balance as evidenced by improvement in Tinnetti balance and gait score to low fall risk range to improve safety in the home and community. 10/31/19: remains high risk for falls 01/02/20: some improvement but still in high risk category 05/26/20: Tinetti score in high risk category 08/28/20: moderate risk for falls LTG Duration 11/25/20 One Impairment requires armaan-walker for gait, limited to household gait Hyperbaric Tech Goal (LTG) Patient able to ambulate with least restrictive device for functional community distances to improve her functional independence and quality of life. 10/30/19: no progress due to Covid 19. 11/02/19: able to ambulate with quad cane but with very slow speed, household distances, very short community distances . 05/26/20: Now able to ambulate with use of single point cane and use of L4 theraband wrapped around left LE to facilitate left LE internal rotation for improved alignment. Patient unable to don the theraband on her own. Gait is for short distances and very slow at 39 ft in 2 min. 08/28/20: has demonstrated improved gait ability, still using theraband for derotation of LE for more neutral position. Able to consistenly use quad cane and is increasing stride length especially with cues. Now able to ascend and descend 4 stairs with min assist using railing. Mod assist on 6 stairs. LTG Duration 11/25/20 Assessment Summary Assessment Pt worked hard during tx, focus on WB into LLE during gait with soft knee bend, even WB during sit<> stands. Pt nervous step downs off foam cushion, more confident 4' step with rail, improved alternaing BLE on stairs. Pt tolerated LUE on scit fit 6.25 min today and no cuing required for LLE adduction. Pt worked hard today. Physical Therapy Plan Frequency and Duration Frequency of Treatment 2x/Week Duration of Treatment 12 wks Plan of Care Start Date 08/28/20 Plan of Care End Date 11/26/20 Therapeutic Interventions Therapeutic Interventions Aquatic Therapy,Balance Training,Gait Training,Home Exercise Program,Neuromuscular Re-education,Orthotic/ Prosthetic Management,Patient/ Caregiver Education,Self-Care/ Home Management,Taping, Therapeutic Activities, Therapeutic Exercises Modalities Cold Pack/Ice Massage,Hot Packs Next Visit Focus/Plan Next Note Type Treatment Note Next Visit Plan Continue PT with emphasis on increasing weight-shift to left LE, gait on uneven surfaces.
--- NOTE | 2020-10-13 13:17 | PT.OTN ---
Current Diagnoses Hemiplegia, unspecified affecting unspecified side (10/13/20) Difficulty in walking, not elsewhere classified (10/13/20) Weakness (10/13/20) History of falling (10/13/20) Physical Therapy Treatment Note PT-OP-A Visit Information Start: 05/28/19 08:11 Freq: Status: Active Protocol: Document 10/13/20 11:17 SAK (Rec: 10/13/20 12:02 SAK [id number]) Out-Patient Physical Therapy Visit Information Visit Information Visit Type Treatment Note Visit Start Time 11:20 Visit Stop Time 12:00 Total Visit Minutes 40 Visit Number 69 Number of C CONSULTANT Visits 0 PT-OP-B Current Condition Start: 05/28/19 08:11 Freq: Status: Active Protocol: Document 06/04/20 11:15 SAK (Rec: 06/05/20 16:34 [facility] [id number]) Current Condition History of Current Condition Onset Date 2014 Current Complaints weakness, requires assistance with all mobility and household tasks History of Current Condition Reports that she suffered a stroke in 2014 after surgery for brain aneurysm. CVA caused weakness on the left side of her body, gait and balance difficulty, seizures. PT-OP-C Subjective Start: 05/28/19 08:11 Freq: Status: Active Protocol: Document 10/13/20 11:17 SAK (Rec: 10/13/20 12:02 SAK [id number]) OP-PT Subjective Patient Comments Patient Comments Reports pleased she was able to walk around [facility] using her single point cane. Feels single point cane working better for her, doesn't hurt her right hand as much because doesn't lean on it as much. PT-OP-D Balance Start: 05/28/19 08:11 Freq: Status: Active Protocol: Document 05/29/19 14:30 SAK (Rec: 05/30/19 14:24 SAK [id number]) OP-PT Balance Assessment Sitting Balance Static Sitting Balance Ability Good Dynamic Sitting Balance Ability Fair Standing Balance Static Standing Balance Ability Good Dynamic Standing Balance Ability Fair Device [facility] right Tinetti Balance Assessment Sitting Balance Sitting Balance Steady, safe Arising from Chair Attempts to Arise Able, requires >1 attempt Standing Balance Immediate Standing Balance Steady with support Standing Balance Steady, wide stance Nudged Response Begins to fall Standing with Eyes Closed Unsteady Turning Step Pattern Turning 360 Degrees Discontinuous steps Stability Turning 360 Degrees Unsteady, grabs/staggers Sitting Down Sitting Down Uses arms or unsteady Gait and Step Initiation of Gait Hesitancy, mult. attempts Right Foot Step Length Does not pass stance ft. Right Foot Step Height Does not clear floor Left Foot Step Length Does not pass stance foot Left Foot Step Height Does not clear floor Step Description Step Symmetry Step length not equal Gait Description Path Description Mild/moderate deviation Trunk Description Marked sway or uses aide Walking Stance Heels apart Scoring and Interpretation Tinetti Composite Score (points) 6 Interpretation of Scores High risk for falls(< 19) Herrera Fall Scale Copyright Permission PT-OP-E Functional Tests Start: 05/28/19 08:11 Freq: Status: Active Protocol: Document 05/26/20 11:15 [facility] (Rec: 05/26/20 17:04 [facility] [id number]) Functional Tests 2 Minute Walk Test Distance 39 ft Device Used single point cane Comments derotation application of level 4 theraband to decrease excess ER right LE PT-OP-G Mobility & Gait Start: 05/28/19 08:11 Freq: Status: Active Protocol: Document 05/26/20 11:15 [facility] (Rec: 05/26/20 17:04 [facility] [id number]) OP Mobility Evaluation Bed Mobility Rolling min assist to right CGA to left Supine to and from Sit min assist to right CGA to left Transfers Sit to Stand CGA to min assist without UE use Bed to Chair Transfers requires use of right UE but able to do with SBA Floor Transfers unable PT-OP-H Neuro Start: 05/28/19 08:11 Freq: Status: Active Protocol: Document 05/29/19 14:30 [facility] (Rec: 05/30/19 14:24 [facility] [id number]) Sensation Evaluation Gross Sensation Gross Sensation Left UE Impaired,Left LE Impaired Sensation Description Paresthesia,Numbness Coordination Evaluation Lower Extremity Tests Left Alternate Heel to Knee; Heel to Toe Test Moderate Impairment Heel on Boles Test Moderate Impairment Foot Tapping Test Moderate Impairment PT-OP-K Range of Motion Start: 05/28/19 08:11 Freq: Status: Active Protocol: Document 05/26/20 11:15 [facility] (Rec: 05/26/20 17:04 [facility] [id number]) Hip Goniometric Range of Motion Hip jake Hip ROM WFL Yes Comments actively right LE, passively left LE Knee Goniometric Range of Motion Knee jake Knee ROM WFL Yes Ankle and Foot Goniometric Range of Motion Ankle and Foot Left Passive Ankle/Foot ROM WFL No Left Active Ankle/Foot ROM WFL No PT-OP-M Strength Start: 05/28/19 08:11 Freq: Status: Active Protocol: Document 05/26/20 11:15 SAK (Rec: 05/26/20 17:04 SAK [id number]) Hip Strength Hip Manual Muscle Testing Left Flexion (L2) 3- Fair- Extension (S1) 2 Poor Abduction 2+ Poor+ External Rotation 3- Fair- Internal Rotation 3+ Fair+ Right Flexion (L2) 4 Good Extension (S1) 4- Good- Abduction 4 Good External Rotation 3+ Fair+ Internal Rotation 4- Good- PT-OP-Q Treatments Start: 05/28/19 08:11 Freq: Status: Active Protocol: Document 10/13/20 11:17 [facility] (Rec: 10/13/20 12:02 [facility] [id number]) Cardio Equipment Recumbent Stepper (Sci-Fit) Duration (Minutes) 10 Resistance 2 Seat Position 9 Other 1.71 mi, 5.5 min with left UE on arm bar without assist Gait Training Gait Activity stairs Description 6 stairs, 4 stairs Device Used right railing, AFO, TB wrap Level of Assistance CG assist, cues for alternating pattern Distance/Duration 1 set 4 6 stairs, 1 set 6 stairs Treatment Focus alternating LE pattern facilitation Comments verbal and manual cues to increase weight shift to left LE, unlock left knee, alternating pattern, lateral support w/ cues for L knee flexion during RLE descend due to excess abduction and external rotation with knee in without assist. 1 Description level surface (Blue TB spiral wrap) Device Used quad cane - 2 pt gait Level of Assistance SBA Surface indoor carpet, firm Distance/Duration 170 ft in 8 min 15 sec Treatment Focus L hip IR and decrease L knee hyperextension, pacing, metronome for pacing Comments 1. L4 TB tied at left shoe, wrapped around clockwise LE with gait belt to assist with internal rotation foot/ hip facilitation to allow LLE proper alignment. PT-OP-R Modalities Start: 05/28/19 08:11 Freq: Status: Active Protocol: Document 03/19/20 10:31 SAK (Rec: 03/19/20 11:17 [facility] [id number]) Electric Stimulation Electric Stimulation Functional Electric Stimulation Body Location left anterior tib Duration (Minutes) 10 Intensity 52 Contraction Type Normal Cycle 02/15 Ramp 2.0 Patient Position Sitting Comments Lebanese stim PT-OP-T Assessment and Plan Start: 05/28/19 08:11 Freq: Status: Active Protocol: Document 10/13/20 11:17 [facility] (Rec: 10/13/20 12:02 [facility] [id number]) Physical Therapy Assessment Goals Five Impairment gait speed not adequate for safe community ambulation Mcfp Goal (LTG) Patient able to ambulate 300' in 6 min 06/02/20: 134' 08/28/20: 144', likely not as high due to new shoes and wearing old AFO because fits better in new shoes. Requires level 4 theraband for derotation of left LE into more neutral position for gait . 09/19/20: 146 ft 6 min w/ QC and Tb wrapping to LLE. LTG Duration 11/25/20 Four Impairment requires assistance with bed mobility and transfers Short Term Goal (STG) Patient will be able to perform all bed mobility independently to improve her functional independence. 10/31/19: good goal progress 06/02/20:inconsistent, but min assist most times 08/28/20 STG Duration goal met Mcfp Goal (LTG) Patient will be able to perform a floor transfer with SB to min assist 10/31/19: max assist today 01/02/20: has not been willing to try since 10/31/19 06/02/20: does not feel strong enough to try yet. 08/28/20: max assistance required LTG Duration 11/25/20 Three Impairment weakness left UE and LE s/p CVA Stitch Bonding Machine Tender Helper Goal (LTG) Improve functional strength in left LE, as evidenced by ability to move from sit > < stand without use of UE's. 10/31/19: OT starts tomorrow. Good progress with sit to stand, though mostly using right UE and LE 01/02/20: Improving ability to perform, able to increase weight-bearing through left LE with cues, but still some use of right UE 05/26/20: With manual and visual feedback patient able to transfer sit to stand with only CG A. 08/28/20: inconsistent ability to move sit to stand without using UE's, but able to do transfer without physical assistance LTG Duration 11/25/20 Two Impairment balance dysfunction with high risk for falls Mcfp Goal (LTG) Improve balance as evidenced by improvement in Tinnetti balance and gait score to low fall risk range to improve safety in the home and community. 10/31/19: remains high risk for falls 01/02/20: some improvement but still in high risk category 05/26/20: Tinetti score in high risk category 08/28/20: moderate risk for falls LTG Duration 11/25/20 One Impairment requires armaan-walker for gait, limited to household gait Mcfp Goal (LTG) Patient able to ambulate with least restrictive device for functional community distances to improve her functional independence and quality of life. 10/30/19: no progress due to Covid 19. 11/02/19: able to ambulate with quad cane but with very slow speed, household distances, very short community distances . 05/26/20: Now able to ambulate with use of single point cane and use of L4 theraband wrapped around left LE to facilitate left LE internal rotation for improved alignment. Patient unable to don the theraband on her own. Gait is for short distances and very slow at 39 ft in 2 min. 08/28/20: has demonstrated improved gait ability, still using theraband for derotation of LE for more neutral position. Able to consistenly use quad cane and is increasing stride length especially with cues. Now able to ascend and descend 4 stairs with min assist using railing. Mod assist on 6 stairs. LTG Duration 11/25/20 Physical Therapy Plan Frequency and Duration Frequency of Treatment 2x/Week Duration of Treatment 12 wks Plan of Care Start Date 08/28/20 Plan of Care End Date 11/26/20 Therapeutic Interventions Therapeutic Interventions Aquatic Therapy,Balance Training,Gait Training,Home Exercise Program,Neuromuscular Re-education,Orthotic/ Prosthetic Management,Patient/ Caregiver Education,Self-Care/ Home Management,Taping, Therapeutic Activities, Therapeutic Exercises Modalities Cold Pack/Ice Massage,Hot Packs Next Visit Focus/Plan Next Note Type Treatment Note Next Visit Plan Continue PT with emphasis on increasing weight-shift to left LE, gait on uneven surfaces, decreased UE support . Contacted personal lines insurance advisor at [phone] for potential private aquatic exercise sessions for patient as aquatic therapy program has not opened up again yet.
--- NOTE | 2020-10-16 11:38 | PT.OTN ---
Current Diagnoses Hemiplegia, unspecified affecting unspecified side (10/16/20) Difficulty in walking, not elsewhere classified (10/16/20) Weakness (10/16/20) History of falling (10/16/20) Physical Therapy Treatment Note PT-OP-A Visit Information Start: 05/28/19 08:11 Freq: Status: Active Protocol: Document 10/16/20 10:33 SAK (Rec: 10/16/20 11:35 SAK [id number]) Out-Patient Physical Therapy Visit Information Visit Information Visit Type Treatment Note Visit Start Time 10:30 Visit Stop Time 11:15 Total Visit Minutes 45 Visit Number 70 Number of MILL HELPER Visits 0 PT-OP-B Current Condition Start: 05/28/19 08:11 Freq: Status: Active Protocol: Document 06/04/20 11:15 SAK (Rec: 06/05/20 16:34 SAK [id number]) Current Condition History of Current Condition Onset Date 2014 Current Complaints weakness, requires assistance with all mobility and household tasks History of Current Condition Reports that she suffered a stroke in 2014 after surgery for brain aneurysm. CVA caused weakness on the left side of her body, gait and balance difficulty, seizures. PT-OP-C Subjective Start: 05/28/19 08:11 Freq: Status: Active Protocol: Document 10/16/20 10:33 SAK (Rec: 10/16/20 11:35 SAK [id number]) OP-PT Subjective Patient Comments Patient Comments Patient frustrated her arm hasn't been working as well, wondering if due to medication changes. Being referred for sleep study. PT-OP-D Balance Start: 05/28/19 08:11 Freq: Status: Active Protocol: Document 05/29/19 14:30 SAK (Rec: 05/30/19 14:24 SAK [id number]) OP-PT Balance Assessment Sitting Balance Static Sitting Balance Ability Good Dynamic Sitting Balance Ability Fair Standing Balance Static Standing Balance Ability Good Dynamic Standing Balance Ability Fair Device Used hemiwalker right Tinetti Balance Assessment Sitting Balance Sitting Balance Steady, safe Arising from Chair Attempts to Arise Able, requires >1 attempt Standing Balance Immediate Standing Balance Steady with support Standing Balance Steady, wide stance Nudged Response Begins to fall Standing with Eyes Closed Unsteady Turning Step Pattern Turning 360 Degrees Discontinuous steps Stability Turning 360 Degrees Unsteady, grabs/staggers Sitting Down Sitting Down Uses arms or unsteady Gait and Step Initiation of Gait Hesitancy, mult. attempts Right Foot Step Length Does not pass stance ft. Right Foot Step Height Does not clear floor Left Foot Step Length Does not pass stance foot Left Foot Step Height Does not clear floor Step Description Step Symmetry Step length not equal Gait Description Path Description Mild/moderate deviation Trunk Description Marked sway or uses aide Walking Stance Heels apart Scoring and Interpretation Tinetti Composite Score (points) 6 Interpretation of Scores High risk for falls(< 19) Herrera Fall Scale Copyright Permission PT-OP-E Functional Tests Start: 05/28/19 08:11 Freq: Status: Active Protocol: Document 05/26/20 11:15 [facility] (Rec: 05/26/20 17:04 [facility] [id number]) Functional Tests 2 Minute Walk Test Distance 39 ft Device Used single point cane Comments derotation application of level 4 theraband to decrease excess ER right LE PT-OP-G Mobility & Gait Start: 05/28/19 08:11 Freq: Status: Active Protocol: Document 05/26/20 11:15 [facility] (Rec: 05/26/20 17:04 [facility] [id number]) OP Mobility Evaluation Bed Mobility Rolling min assist to right CGA to left Supine to and from Sit min assist to right CGA to left Transfers Sit to Stand CGA to min assist without UE use Bed to Chair Transfers requires use of right UE but able to do with SBA Floor Transfers unable PT-OP-H Neuro Start: 05/28/19 08:11 Freq: Status: Active Protocol: Document 05/29/19 14:30 [facility] (Rec: 05/30/19 14:24 [facility] [id number]) Sensation Evaluation Gross Sensation Gross Sensation Left UE Impaired,Left LE Impaired Sensation Description Paresthesia,Numbness Coordination Evaluation Lower Extremity Tests Left Alternate Heel to Knee; Heel to Toe Test Moderate Impairment Heel on Boles Test Moderate Impairment Foot Tapping Test Moderate Impairment PT-OP-K Range of Motion Start: 05/28/19 08:11 Freq: Status: Active Protocol: Document 05/26/20 11:15 [facility] (Rec: 05/26/20 17:04 [facility] [id number]) Hip Goniometric Range of Motion Hip jake Hip ROM WFL Yes Comments actively right LE, passively left LE Knee Goniometric Range of Motion Knee jake Knee ROM WFL Yes Ankle and Foot Goniometric Range of Motion Ankle and Foot Left Passive Ankle/Foot ROM WFL No Left Active Ankle/Foot ROM WFL No PT-OP-M Strength Start: 05/28/19 08:11 Freq: Status: Active Protocol: Document 05/26/20 11:15 [facility] (Rec: 05/26/20 17:04 [facility] [id number]) Hip Strength Hip Manual Muscle Testing Left Flexion (L2) 3- Fair- Extension (S1) 2 Poor Abduction 2+ Poor+ External Rotation 3- Fair- Internal Rotation 3+ Fair+ Right Flexion (L2) 4 Good Extension (S1) 4- Good- Abduction 4 Good External Rotation 3+ Fair+ Internal Rotation 4- Good- PT-OP-Q Treatments Start: 05/28/19 08:11 Freq: Status: Active Protocol: Document 10/16/20 10:33 [facility] (Rec: 10/16/20 11:35 [facility] [id number]) Cardio Equipment Recumbent Stepper (Sci-Fit) Duration (Minutes) 10 Resistance 2 Seat Position 9 Other 1.12 miles Gym Equipment Shuttle Recovery Unilateral Squats Resistance 37 Shuttle Recovery Platform Stable Reps/Time 2 x 10 Bilateral Squats Details bilateral squats w/ ball between knees, glut fac heel press Resistance 50# Reps/Time 2 x 10 reps; cues for LLE hip rotation Shuttle Balance green Details balance, weight shift, movement of platform by pt, balloon volleyball Reps/Duration 6 min Comments cords loose Gait Training Gait Activity parallel bars Description forward Device Used cues for minimal UE support Level of Assistance min UE support right on bar Surface firm Treatment Focus neutral alignment, weight- shift Comments mirror for visual feedback. gait w/ AD no wrapping Description no theraband Device Used QC Level of Assistance SBA Surface stable Distance/Duration 50 ftx3, Treatment Focus L knee flexion, hip IR, wt shift to left, step-through gait 1 Description level surface (Blue TB spiral wrap) Device Used quad cane - 2 pt gait Level of Assistance SBA Surface indoor carpet, firm Distance/Duration 170 ft in 8 min 15 sec Treatment Focus L hip IR and decrease L knee hyperextension, pacing, metronome for pacing Comments 1. L4 TB tied at left shoe, wrapped around clockwise LE with gait belt to assist with internal rotation foot/ hip facilitation to allow LLE proper alignment. PT-OP-R Modalities Start: 05/28/19 08:11 Freq: Status: Active Protocol: Document 03/19/20 10:31 SAK (Rec: 03/19/20 11:17 SAK [id number]) Electric Stimulation Electric Stimulation Functional Electric Stimulation Body Location left anterior tib Duration (Minutes) 10 Intensity 52 Contraction Type Normal Cycle 10 Ramp 2.0 Patient Position Sitting Comments Armenian stim PT-OP-T Assessment and Plan Start: 05/28/19 08:11 Freq: Status: Active Protocol: Document 10/16/20 10:33 SAK (Rec: 10/16/20 11:35 [facility] [id number]) Physical Therapy Assessment Goals Five Impairment gait speed not adequate for safe community ambulation [employer] Technician Goal (LTG) Patient able to ambulate 300' in 6 min 06/02/20: 134' 08/28/20: 144', likely not as high due to new shoes and wearing old AFO because fits better in new shoes. Requires level 4 theraband for derotation of left LE into more neutral position for gait . 09/19/20: 146 ft 6 min w/ QC and Tb wrapping to LLE. LTG Duration 11/25/20 Four Impairment requires assistance with bed mobility and transfers Short Term Goal (STG) Patient will be able to perform all bed mobility independently to improve her functional independence. 10/31/19: good goal progress 06/02/20:inconsistent, but min assist most times 08/28/20 STG Duration goal met Senior Care Goal (LTG) Patient will be able to perform a floor transfer with SB to min assist 10/31/19: max assist today 01/02/20: has not been willing to try since 10/31/19 06/02/20: does not feel strong enough to try yet. 08/28/20: max assistance required LTG Duration 11/25/20 Three Impairment weakness left UE and LE s/p CVA [employer] Equipment Technician Goal (LTG) Improve functional strength in left LE, as evidenced by ability to move from sit > < stand without use of UE's. 10/31/19: OT starts tomorrow. Good progress with sit to stand, though mostly using right UE and LE 01/02/20: Improving ability to perform, able to increase weight-bearing through left LE with cues, but still some use of right UE 05/26/20: With manual and visual feedback patient able to transfer sit to stand with only CG A. 08/28/20: inconsistent ability to move sit to stand without using UE's, but able to do transfer without physical assistance LTG Duration 11/25/20 Two Impairment balance dysfunction with high risk for falls [employer] Equipment Technician Goal (LTG) Improve balance as evidenced by improvement in Tinnetti balance and gait score to low fall risk range to improve safety in the home and community. 10/31/19: remains high risk for falls 01/02/20: some improvement but still in high risk category 05/26/20: Tinetti score in high risk category 08/28/20: moderate risk for falls LTG Duration 11/25/20 One Impairment requires armaan-walker for gait, limited to household gait Senior Care Goal (LTG) Patient able to ambulate with least restrictive device for functional community distances to improve her functional independence and quality of life. 10/30/19: no progress due to Covid 19. 11/02/19: able to ambulate with quad cane but with very slow speed, household distances, very short community distances . 05/26/20: Now able to ambulate with use of single point cane and use of L4 theraband wrapped around left LE to facilitate left LE internal rotation for improved alignment. Patient unable to don the theraband on her own. Gait is for short distances and very slow at 39 ft in 2 min. 08/28/20: has demonstrated improved gait ability, still using theraband for derotation of LE for more neutral position. Able to consistenly use quad cane and is increasing stride length especially with cues. Now able to ascend and descend 4 stairs with min assist using railing. Mod assist on 6 stairs. LTG Duration 11/25/20 Assessment Summary Assessment Able to progress shuttle balance with loosening of cords on green setting, patient more aware of her weight-bearing side to side today but difficulty with step through gait pattern; tendency still to take too large step left, too small on right with difficulty shifting full weight to left LE. Physical Therapy Plan Frequency and Duration Frequency of Treatment 2x/Week Duration of Treatment 12 wks Plan of Care Start Date 08/28/20 Plan of Care End Date 11/26/20 Therapeutic Interventions Therapeutic Interventions Aquatic Therapy,Balance Training,Gait Training,Home Exercise Program,Neuromuscular Re-education,Orthotic/ Prosthetic Management,Patient/ Caregiver Education,Self-Care/ Home Management,Taping, Therapeutic Activities, Therapeutic Exercises Modalities Cold Pack/Ice Massage,Hot Packs Next Visit Focus/Plan Next Note Type Treatment Note Next Visit Plan foam step ups, further balance training including shuttle balance; try with right side shortened one link to facilitate increased weight- bearing to left. Continue gait training with cues for shorter step left, larger step right with inc weight shift left.
--- NOTE | 2020-10-21 08:29 | PT.OTN ---
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 CVA caused weakness on the left side of her body, gait and balance difficulty, seizures. PT-OP-C Subjective Start: 05/28/19 08:11 Freq: Status: Active Protocol: Document 10/20/20 11:30 SAK (Rec: 10/20/20 12:56 [facility] [id number]) OP-PT Subjective Patient Comments Patient Comments Reports not much energy today. Frustrated with pain control ; states feels she can't push herself like she wants to to get better when her body hurts so much; left arm, left buttock and leg; states left leg goes numb and has pulling pain and knot in buttock in all positions. Dry needling by Dr. Valdez not helpful last session. mobility and ability to do HEP and push hard in PT limited by pain. Also reports she is going to get a sleep study, woke up in middle of night last night gasping for breath. States hospital bed has been ordered for her again as never received when previously ordered by physician. Would like to be able to lay prone for Dr. Valdez but states it has been a long time since she has been able to do that, has difficulty with bed mobility, looking forward to having railing on hospital bed to help with mobility. OP-PT Pain Assessment Location left LE Intensity 8 left buttock Intensity 8 PT-OP-D Balance Start: 05/28/19 08:11 Freq: Status: Active Protocol: Document 05/29/19 14:30 [facility] (Rec: 05/30/19 14:24 [facility] [id number]) OP-PT Balance Assessment Sitting Balance Static Sitting Balance Ability Good Dynamic Sitting Balance Ability Fair Standing Balance Static Standing Balance Ability Good Dynamic Standing Balance Ability Fair Device Used hemiwalker right Tinetti Balance Assessment Sitting Balance Sitting Balance Steady, safe Arising from Chair Attempts to Arise Able, requires >1 attempt Standing Balance Immediate Standing Balance Steady with support Standing Balance Steady, wide stance Nudged Response Begins to fall Standing with Eyes Closed Unsteady Turning Step Pattern Turning 360 Degrees Discontinuous steps Stability Turning 360 Degrees Unsteady, grabs/staggers Sitting Down Sitting Down Uses arms or unsteady Gait and Step Initiation of Gait Hesitancy, mult. attempts Right Foot Step Length Does not pass stance ft. Right Foot Step Height Does not clear floor Left Foot Step Length Does not pass stance foot Left Foot Step Height Does not clear floor Step Description Step Symmetry Step length not equal Gait Description Path Description Mild/moderate deviation Trunk Description Marked sway or uses aide Walking Stance Heels apart Scoring and Interpretation Tinetti Composite Score (points) 6 Interpretation of Scores High risk for falls(< 19) Herrera Fall Scale Copyright Permission PT-OP-E Functional Tests Start: 05/28/19 08:11 Freq: Status: Active Protocol: Document 05/26/20 11:15 [facility] (Rec: 05/26/20 17:04 [facility] [id number]) Functional Tests 2 Minute Walk Test Distance 39 ft Device Used single point cane Comments derotation application of level 4 theraband to decrease excess ER right LE PT-OP-G Mobility & Gait Start: 05/28/19 08:11 Freq: Status: Active Protocol: Document 05/26/20 11:15 [facility] (Rec: 05/26/20 17:04 [facility] [id number]) OP Mobility Evaluation Bed Mobility Rolling min assist to right CGA to left Supine to and from Sit min assist to right CGA to left Transfers Sit to Stand CGA to min assist without UE use Bed to Chair Transfers requires use of right UE but able to do with SBA Floor Transfers unable PT-OP-H Neuro Start: 05/28/19 08:11 Freq: Status: Active Protocol: Document 05/29/19 14:30 [facility] (Rec: 05/30/19 14:24 [facility] [id number]) Sensation Evaluation Gross Sensation Gross Sensation Left UE Impaired,Left LE Impaired Sensation Description Paresthesia,Numbness Coordination Evaluation Lower Extremity Tests Left Alternate Heel to Knee; Heel to Toe Test Moderate Impairment Heel on Boles Test Moderate Impairment Foot Tapping Test Moderate Impairment PT-OP-K Range of Motion Start: 05/28/19 08:11 Freq: Status: Active Protocol: Document 05/26/20 11:15 [facility] (Rec: 05/26/20 17:04 [facility] [id number]) Hip Goniometric Range of Motion Hip jake Hip ROM WFL Yes Comments actively right LE, passively left LE Knee Goniometric Range of Motion Knee jake Knee ROM WFL Yes Ankle and Foot Goniometric Range of Motion Ankle and Foot Left Passive Ankle/Foot ROM WFL No Left Active Ankle/Foot ROM WFL No PT-OP-M Strength Start: 05/28/19 08:11 Freq: Status: Active Protocol: Document 05/26/20 11:15 [facility] (Rec: 05/26/20 17:04 [facility] [id number]) Hip Strength Hip Manual Muscle Testing Left Flexion (L2) 3- Fair- Extension (S1) 2 Poor Abduction 2+ Poor+ External Rotation 3- Fair- Internal Rotation 3+ Fair+ Right Flexion (L2) 4 Good Extension (S1) 4- Good- Abduction 4 Good External Rotation 3+ Fair+ Internal Rotation 4- Good- PT-OP-Q Treatments Start: 05/28/19 08:11 Freq: Status: Active Protocol: Document 10/20/20 11:30 [facility] (Rec: 10/20/20 12:56 [facility] [id number]) Cardio Equipment Recumbent Stepper (Sci-Fit) Duration (Minutes) 10 Resistance 2 Seat Position 9 Other 1.12 miles Gym Equipment Shuttle Recovery Unilateral Squats Resistance 37 Shuttle Recovery Platform Stable Reps/Time 2 x 10 Bilateral Squats Details bilateral squats w/ ball between knees, glut fac heel press Resistance 50# Reps/Time 2 x 10 reps; cues for LLE hip rotation Therapeutic Exercises Supine Exercises piriformis stretch Side left Reps/Minutes 2x30 Comments passive first, then patient able to do independently using right UE Therapeutic Activity Therapeutic Activity bed mobility Reps/Minutes 12 min Comments sit to supine, scooting to left, rolling to right side; mod assist on treatment table, Gait Training Gait Activity parallel bars Description forward Device Used cues for minimal UE support Level of Assistance min UE support right on bar Surface firm Treatment Focus neutral alignment, weight- shift Comments mirror for visual feedback. stairs Description 4 stairs Device Used right railing, AFO, TB wrap Level of Assistance CG assist, cues for alternating pattern Distance/Duration 1 set 4 6 stairs Treatment Focus alternating LE pattern facilitation Comments verbal and manual cues to increase weight shift to left LE, unlock left knee, alternating pattern, lateral support w/ cues for L knee flexion during RLE descend due to excess abduction and external rotation with knee in without assist. 1 Description level surface (Blue TB spiral wrap) Device Used quad cane - 2 pt gait Level of Assistance SBA Surface indoor carpet, firm Distance/Duration 170 ft in 8 min 15 sec Treatment Focus L hip IR and decrease L knee hyperextension, pacing, metronome for pacing Comments 1. L4 TB tied at left shoe, wrapped around clockwise LE with gait belt to assist with internal rotation foot/ hip facilitation to allow LLE proper alignment. PT-OP-R Modalities Start: 05/28/19 08:11 Freq: Status: Active Protocol: Document 03/19/20 10:31 [facility] (Rec: 03/19/20 11:17 [facility] [id number]) Electric Stimulation Electric Stimulation Functional Electric Stimulation Body Location left anterior tib Duration (Minutes) 10 Intensity 52 Contraction Type Normal Cycle 10/10 Ramp 2.0 Patient Position Sitting Comments [place] stim PT-OP-T Assessment and Plan Start: 05/28/19 08:11 Freq: Status: Active Protocol: Document 10/20/20 11:30 [facility] (Rec: 10/20/20 12:56 [facility] [id number]) Physical Therapy Assessment Goals Five Impairment gait speed not adequate for safe community ambulation Group Home Goal (LTG) Patient able to ambulate 300' in 6 min 06/02/20: 134' 08/28/20: 144', likely not as high due to new shoes and wearing old AFO because fits better in new shoes. Requires level 4 theraband for derotation of left LE into more neutral position for gait . 09/19/20: 146 ft 6 min w/ QC and Tb wrapping to LLE. LTG Duration 11/25/20 Four Impairment requires assistance with bed mobility and transfers Short Term Goal (STG) Patient will be able to perform all bed mobility independently to improve her functional independence. 10/31/19: good goal progress 06/02/20:inconsistent, but min assist most times 08/28/20 STG Duration goal met Group Home Goal (LTG) Patient will be able to perform a floor transfer with SB to min assist 10/31/19: max assist today 01/02/20: has not been willing to try since 10/31/19 06/02/20: does not feel strong enough to try yet. 08/28/20: max assistance required LTG Duration 11/25/20 Three Impairment weakness left UE and LE s/p CVA Laboratory Tester Goal (LTG) Improve functional strength in left LE, as evidenced by ability to move from sit > < stand without use of UE's. 10/31/19: OT starts tomorrow. Good progress with sit to stand, though mostly using right UE and LE 01/02/20: Improving ability to perform, able to increase weight-bearing through left LE with cues, but still some use of right UE 05/26/20: With manual and visual feedback patient able to transfer sit to stand with only CG A. 08/28/20: inconsistent ability to move sit to stand without using UE's, but able to do transfer without physical assistance LTG Duration 11/25/20 Two Impairment balance dysfunction with high risk for falls Group Home Goal (LTG) Improve balance as evidenced by improvement in Tinnetti balance and gait score to low fall risk range to improve safety in the home and community. 10/31/19: remains high risk for falls 01/02/20: some improvement but still in high risk category 05/26/20: Tinetti score in high risk category 08/28/20: moderate risk for falls LTG Duration 11/25/20 One Impairment requires armaan-walker for gait, limited to household gait Laboratory Tester Goal (LTG) Patient able to ambulate with least restrictive device for functional community distances to improve her functional independence and quality of life. 10/30/19: no progress due to Covid 19. 11/02/19: able to ambulate with quad cane but with very slow speed, household distances, very short community distances . 05/26/20: Now able to ambulate with use of single point cane and use of L4 theraband wrapped around left LE to facilitate left LE internal rotation for improved alignment. Patient unable to don the theraband on her own. Gait is for short distances and very slow at 39 ft in 2 min. 08/28/20: has demonstrated improved gait ability, still using theraband for derotation of LE for more neutral position. Able to consistenly use quad cane and is increasing stride length especially with cues. Now able to ascend and descend 4 stairs with min assist using railing. Mod assist on 6 stairs. LTG Duration 11/25/20 Assessment Summary Assessment mod assist for sidelying positioning including for scooting to side, once in position supine, required only min assist to roll to side. She was uncomfortable remaining in that position without grab bar as fearful of falling, doesn't feel stable, will need more practice with PT. Due to narrow width of physician treatment table especially at this time feel prone positioning not possible (today's bed mobility done on wider treatment table), will need further practice and trials. Pain is major limiting factor in patient progress, discussed possible need to have current AFO reassessed and alternative considered. Patient to talk with physician about pain medication due to her concerns . Physical Therapy Plan Frequency and Duration Frequency of Treatment 2x/Week Duration of Treatment 12 wks Plan of Care Start Date 08/28/20 Plan of Care End Date 11/26/20 Therapeutic Interventions Therapeutic Interventions Aquatic Therapy,Balance Training,Gait Training,Home Exercise Program,Neuromuscular Re-education,Orthotic/ Prosthetic Management,Patient/ Caregiver Education,Self-Care/ Home Management,Taping, Therapeutic Activities, Therapeutic Exercises Modalities Cold Pack/Ice Massage,Hot Packs Next Visit Focus/Plan Next Note Type Treatment Note Next Visit Plan Further bed mobility retraining, foam step ups, further balance training including shuttle balance; try with right side shortened one link to facilitate increased weight-bearing to left. Continue gait training with cues for shorter step left, larger step right with inc weight shift left. Further mobility ex closed chain without AFO
--- NOTE | 2020-10-24 13:14 | PT.OTN ---
Current Diagnoses Hemiplegia, unspecified affecting unspecified side (10/24/20) Difficulty in walking, not elsewhere classified (10/24/20) Weakness (10/24/20) History of falling (10/24/20) Physical Therapy Treatment Note PT-OP-A Visit Information Start: 05/28/19 08:11 Freq: Status: Active Protocol: Document 10/24/20 12:15 MA (Rec: 10/24/20 13:14 MA [id number]) Out-Patient Physical Therapy Visit Information Visit Information Visit Type Treatment Note Visit Start Time 12:05 Visit Stop Time 01:00 Total Visit Minutes 55 Visit Number 72 Number of WHIP SAWYER Visits 1 PT-OP-B Current Condition Start: 05/28/19 08:11 Freq: Status: Active Protocol: Document 06/04/20 11:15 SAK (Rec: 06/05/20 16:34 SAK [id number]) Current Condition History of Current Condition Onset Date 2014 Current Complaints weakness, requires assistance with all mobility and household tasks History of Current Condition Reports that she suffered a stroke in 2014 after surgery for brain aneurysm. CVA caused weakness on the left side of her body, gait and balance difficulty, seizures. PT-OP-C Subjective Start: 05/28/19 08:11 Freq: Status: Active Protocol: Document 10/24/20 12:15 MA (Rec: 10/24/20 13:14 MA [id number]) OP-PT Subjective Patient Comments Patient Comments Pt reports she is trying to find a psychiatrist because she has been feeling really down but all places aren't accepting new pts. Her dr is calling around for her now for an out of network provider. PT-OP-D Balance Start: 05/28/19 08:11 Freq: Status: Active Protocol: Document 05/29/19 14:30 SAK (Rec: 05/30/19 14:24 SAK [id number]) OP-PT Balance Assessment Sitting Balance Static Sitting Balance Ability Good Dynamic Sitting Balance Ability Fair Standing Balance Static Standing Balance Ability Good Dynamic Standing Balance Ability Fair Device Used hemiwalker right Tinetti Balance Assessment Sitting Balance Sitting Balance Steady, safe Arising from Chair Attempts to Arise Able, requires >1 attempt Standing Balance Immediate Standing Balance Steady with support Standing Balance Steady, wide stance Nudged Response Begins to fall Standing with Eyes Closed Unsteady Turning Step Pattern Turning 360 Degrees Discontinuous steps Stability Turning 360 Degrees Unsteady, grabs/staggers Sitting Down Sitting Down Uses arms or unsteady Gait and Step Initiation of Gait Hesitancy, mult. attempts Right Foot Step Length Does not pass stance ft. Right Foot Step Height Does not clear floor Left Foot Step Length Does not pass stance foot Left Foot Step Height Does not clear floor Step Description Step Symmetry Step length not equal Gait Description Path Description Mild/moderate deviation Trunk Description Marked sway or uses aide Walking Stance Heels apart Scoring and Interpretation Tinetti Composite Score (points) 6 Interpretation of Scores High risk for falls(< 19) Herrera Fall Scale Copyright Permission PT-OP-E Functional Tests Start: 05/28/19 08:11 Freq: Status: Active Protocol: Document 05/26/20 11:15 [facility] (Rec: 05/26/20 17:04 [facility] [id number]) Functional Tests 2 Minute Walk Test Distance 39 ft Device Used single point cane Comments derotation application of level 4 theraband to decrease excess ER right LE PT-OP-G Mobility & Gait Start: 05/28/19 08:11 Freq: Status: Active Protocol: Document 05/26/20 11:15 [facility] (Rec: 05/26/20 17:04 [facility] [id number]) OP Mobility Evaluation Bed Mobility Rolling min assist to right CGA to left Supine to and from Sit min assist to right CGA to left Transfers Sit to Stand CGA to min assist without UE use Bed to Chair Transfers requires use of right UE but able to do with SBA Floor Transfers unable PT-OP-H Neuro Start: 05/28/19 08:11 Freq: Status: Active Protocol: Document 05/29/19 14:30 [facility] (Rec: 05/30/19 14:24 [facility] [id number]) Sensation Evaluation Gross Sensation Gross Sensation Left UE Impaired,Left LE Impaired Sensation Description Paresthesia,Numbness Coordination Evaluation Lower Extremity Tests Left Alternate Heel to Knee; Heel to Toe Test Moderate Impairment Heel on Boles Test Moderate Impairment Foot Tapping Test Moderate Impairment PT-OP-K Range of Motion Start: 05/28/19 08:11 Freq: Status: Active Protocol: Document 05/26/20 11:15 SAK (Rec: 05/26/20 17:04 [facility] [id number]) Hip Goniometric Range of Motion Hip jake Hip ROM WFL Yes Comments actively right LE, passively left LE Knee Goniometric Range of Motion Knee jake Knee ROM WFL Yes Ankle and Foot Goniometric Range of Motion Ankle and Foot Left Passive Ankle/Foot ROM WFL No Left Active Ankle/Foot ROM WFL No PT-OP-M Strength Start: 05/28/19 08:11 Freq: Status: Active Protocol: Document 05/26/20 11:15 SAK (Rec: 05/26/20 17:04 [facility] [id number]) Hip Strength Hip Manual Muscle Testing Left Flexion (L2) 3- Fair- Extension (S1) 2 Poor Abduction 2+ Poor+ External Rotation 3- Fair- Internal Rotation 3+ Fair+ Right Flexion (L2) 4 Good Extension (S1) 4- Good- Abduction 4 Good External Rotation 3+ Fair+ Internal Rotation 4- Good- PT-OP-Q Treatments Start: 05/28/19 08:11 Freq: Status: Active Protocol: Document 10/24/20 12:15 MA (Rec: 10/24/20 13:14 MA [id number]) Cardio Equipment Recumbent Stepper (Sci-Fit) Duration (Minutes) 10 Resistance 2 Seat Position 9 Other 1.23 mi Therapeutic Exercises Supine Exercises piriformis stretch Side left Reps/Minutes 2x30 Comments passive first, then patient able to do independently using right UE Standing Exercises sit stands w/ AFO donned Standing Exercise Name no UEs Equipment Used 18 chair Reps/Minutes 3x Comments working on not twisting while sitting marching Side bilateral Equipment Used //bars Reps/Minutes 2 min Comments CGA gait belt Therapeutic Activity Therapeutic Activity bed mobility Reps/Minutes 12 min Comments sit to supine, scooting to left, rolling to right side; mod assist on treatment table, Gait Training Gait Activity parallel bars Description forward Device Used cues for minimal UE support Level of Assistance min UE support right on bar Surface firm Treatment Focus neutral alignment, weight- shift Comments mirror for visual feedback. Focusing on Flexing L knee/Hip PT-OP-R Modalities Start: 05/28/19 08:11 Freq: Status: Active Protocol: Document 03/19/20 10:31 SAK (Rec: 03/19/20 11:17 [facility] [id number]) Electric Stimulation Electric Stimulation Functional Electric Stimulation Body Location left anterior tib Duration (Minutes) 10 Intensity 52 Contraction Type Normal Cycle 10/10 Ramp 2.0 Patient Position Sitting Comments Jordanian stim PT-OP-T Assessment and Plan Start: 05/28/19 08:11 Freq: Status: Active Protocol: Document 10/24/20 12:15 MA (Rec: 10/24/20 13:14 MA [id number]) Physical Therapy Assessment Goals Five Impairment gait speed not adequate for safe community ambulation Filament Cutter Goal (LTG) Patient able to ambulate 300' in 6 min 06/02/20: 134' 08/28/20: 144', likely not as high due to new shoes and wearing old AFO because fits better in new shoes. Requires level 4 theraband for derotation of left LE into more neutral position for gait . 09/19/20: 146 ft 6 min w/ QC and Tb wrapping to LLE. LTG Duration 11/25/20 Four Impairment requires assistance with bed mobility and transfers Short Term Goal (STG) Patient will be able to perform all bed mobility independently to improve her functional independence. 10/31/19: good goal progress 06/02/20:inconsistent, but min assist most times 08/28/20 STG Duration goal met Prison Goal (LTG) Patient will be able to perform a floor transfer with SB to min assist 10/31/19: max assist today 01/02/20: has not been willing to try since 10/31/19 06/02/20: does not feel strong enough to try yet. 08/28/20: max assistance required LTG Duration 11/25/20 Three Impairment weakness left UE and LE s/p CVA Filament Cutter Goal (LTG) Improve functional strength in left LE, as evidenced by ability to move from sit > < stand without use of UE's. 10/31/19: OT starts tomorrow. Good progress with sit to stand, though mostly using right UE and LE 01/02/20: Improving ability to perform, able to increase weight-bearing through left LE with cues, but still some use of right UE 05/26/20: With manual and visual feedback patient able to transfer sit to stand with only CG A. 08/28/20: inconsistent ability to move sit to stand without using UE's, but able to do transfer without physical assistance LTG Duration 11/25/20 Two Impairment balance dysfunction with high risk for falls Prison Goal (LTG) Improve balance as evidenced by improvement in Tinnetti balance and gait score to low fall risk range to improve safety in the home and community. 10/31/19: remains high risk for falls 01/02/20: some improvement but still in high risk category 05/26/20: Tinetti score in high risk category 08/28/20: moderate risk for falls LTG Duration 11/25/20 One Impairment requires armaan-walker for gait, limited to household gait Prison Goal (LTG) Patient able to ambulate with least restrictive device for functional community distances to improve her functional independence and quality of life. 10/30/19: no progress due to Covid 19. 11/02/19: able to ambulate with quad cane but with very slow speed, household distances, very short community distances . 05/26/20: Now able to ambulate with use of single point cane and use of L4 theraband wrapped around left LE to facilitate left LE internal rotation for improved alignment. Patient unable to don the theraband on her own. Gait is for short distances and very slow at 39 ft in 2 min. 08/28/20: has demonstrated improved gait ability, still using theraband for derotation of LE for more neutral position. Able to consistenly use quad cane and is increasing stride length especially with cues. Now able to ascend and descend 4 stairs with min assist using railing. Mod assist on 6 stairs. LTG Duration 11/25/20 Assessment Summary Assessment Pt has L knee pain throughout session that can be decreased by focusing on flexing L knee/ hip to aovid circumducting LLE and ER which causes the knee pain. Worked on marching in // bars for improved gait. Pt was able to complete bed moblity with min A today except supine to sit was mod A. Pt cannot hold SL R position and would like to find a way to hold position without risking rolling off smaller hospital bed. She feels the piriformis stretch she learned last session has helped a lot with her hip pain. Physical Therapy Plan Frequency and Duration Frequency of Treatment 2x/Week Duration of Treatment 12 wks Plan of Care Start Date 08/28/20 Plan of Care End Date 11/26/20 Therapeutic Interventions Therapeutic Interventions Aquatic Therapy,Balance Training,Gait Training,Home Exercise Program,Neuromuscular Re-education,Orthotic/ Prosthetic Management,Patient/ Caregiver Education,Self-Care/ Home Management,Taping, Therapeutic Activities, Therapeutic Exercises Modalities Cold Pack/Ice Massage,Hot Packs Next Visit Focus/Plan Next Note Type Treatment Note Next Visit Plan Further bed mobility retraining, foam step ups, further balance training including shuttle balance; try with right side shortened one link to facilitate increased weight-bearing to left. Continue gait training with cues for shorter step left, larger step right with inc weight shift left. Further mobility ex closed chain without AFO
--- NOTE | 2020-10-27 12:15 | PT.OTN ---
Current Diagnoses Hemiplegia, unspecified affecting unspecified side (10/27/20) Difficulty in walking, not elsewhere classified (10/27/20) Weakness (10/27/20) History of falling (10/27/20) Physical Therapy Treatment Note PT-OP-A Visit Information Start: 05/28/19 08:11 Freq: Status: Active Protocol: Document 10/27/20 12:01 SAK (Rec: 10/27/20 12:15 SAK [id number]) Out-Patient Physical Therapy Visit Information Visit Information Visit Type Treatment Note Visit Start Time 11:15 Visit Stop Time 12:10 Total Visit Minutes 55 Visit Number 73 Number of PARTS PRODUCT ANALYST Visits 0 PT-OP-B Current Condition Start: 05/28/19 08:11 Freq: Status: Active Protocol: Document 06/04/20 11:15 SAK (Rec: 06/05/20 16:34 [facility] [id number]) Current Condition History of Current Condition Onset Date 2014 Current Complaints weakness, requires assistance with all mobility and household tasks History of Current Condition Reports that she suffered a stroke in 2014 after surgery for brain aneurysm. CVA caused weakness on the left side of her body, gait and balance difficulty, seizures. PT-OP-C Subjective Start: 05/28/19 08:11 Freq: Status: Active Protocol: Document 10/27/20 12:01 SAK (Rec: 10/27/20 12:15 [facility] [id number]) OP-PT Subjective Patient Comments Patient Comments Patient c/o incontinence this am into her right shoe, had to wear a different shoe on that side which is lower than on left. PT-OP-D Balance Start: 05/28/19 08:11 Freq: Status: Active Protocol: Document 05/29/19 14:30 SAK (Rec: 05/30/19 14:24 SAK [id number]) OP-PT Balance Assessment Sitting Balance Static Sitting Balance Ability Good Dynamic Sitting Balance Ability Fair Standing Balance Static Standing Balance Ability Good Dynamic Standing Balance Ability Fair Device Used [facility] right Tinetti Balance Assessment Sitting Balance Sitting Balance Steady, safe Arising from Chair Attempts to Arise Able, requires >1 attempt Standing Balance Immediate Standing Balance Steady with support Standing Balance Steady, wide stance Nudged Response Begins to fall Standing with Eyes Closed Unsteady Turning Step Pattern Turning 360 Degrees Discontinuous steps Stability Turning 360 Degrees Unsteady, grabs/staggers Sitting Down Sitting Down Uses arms or unsteady Gait and Step Initiation of Gait Hesitancy, mult. attempts Right Foot Step Length Does not pass stance ft. Right Foot Step Height Does not clear floor Left Foot Step Length Does not pass stance foot Left Foot Step Height Does not clear floor Step Description Step Symmetry Step length not equal Gait Description Path Description Mild/moderate deviation Trunk Description Marked sway or uses aide Walking Stance Heels apart Scoring and Interpretation Tinetti Composite Score (points) 6 Interpretation of Scores High risk for falls(< 19) Herrera Fall Scale Copyright Permission PT-OP-E Functional Tests Start: 05/28/19 08:11 Freq: Status: Active Protocol: Document 05/26/20 11:15 [facility] (Rec: 05/26/20 17:04 [facility] [id number]) Functional Tests 2 Minute Walk Test Distance 39 ft Device Used single point cane Comments derotation application of level 4 theraband to decrease excess ER right LE PT-OP-G Mobility & Gait Start: 05/28/19 08:11 Freq: Status: Active Protocol: Document 05/26/20 11:15 [facility] (Rec: 05/26/20 17:04 [facility] [id number]) OP Mobility Evaluation Bed Mobility Rolling min assist to right CGA to left Supine to and from Sit min assist to right CGA to left Transfers Sit to Stand CGA to min assist without UE use Bed to Chair Transfers requires use of right UE but able to do with SBA Floor Transfers unable PT-OP-H Neuro Start: 05/28/19 08:11 Freq: Status: Active Protocol: Document 05/29/19 14:30 [facility] (Rec: 05/30/19 14:24 [facility] [id number]) Sensation Evaluation Gross Sensation Gross Sensation Left UE Impaired,Left LE Impaired Sensation Description Paresthesia,Numbness Coordination Evaluation Lower Extremity Tests Left Alternate Heel to Knee; Heel to Toe Test Moderate Impairment Heel on Boles Test Moderate Impairment Foot Tapping Test Moderate Impairment PT-OP-K Range of Motion Start: 05/28/19 08:11 Freq: Status: Active Protocol: Document 05/26/20 11:15 SAK (Rec: 05/26/20 17:04 [facility] [id number]) Hip Goniometric Range of Motion Hip jake Hip ROM WFL Yes Comments actively right LE, passively left LE Knee Goniometric Range of Motion Knee jake Knee ROM WFL Yes Ankle and Foot Goniometric Range of Motion Ankle and Foot Left Passive Ankle/Foot ROM WFL No Left Active Ankle/Foot ROM WFL No PT-OP-M Strength Start: 05/28/19 08:11 Freq: Status: Active Protocol: Document 05/26/20 11:15 [facility] (Rec: 05/26/20 17:04 [facility] [id number]) Hip Strength Hip Manual Muscle Testing Left Flexion (L2) 3- Fair- Extension (S1) 2 Poor Abduction 2+ Poor+ External Rotation 3- Fair- Internal Rotation 3+ Fair+ Right Flexion (L2) 4 Good Extension (S1) 4- Good- Abduction 4 Good External Rotation 3+ Fair+ Internal Rotation 4- Good- PT-OP-Q Treatments Start: 05/28/19 08:11 Freq: Status: Active Protocol: Document 10/27/20 12:01 [facility] (Rec: 10/27/20 12:15 [facility] [id number]) Cardio Equipment Recumbent Stepper (Sci-Fit) Duration (Minutes) 10 Resistance 2 Seat Position 9 Other 1.27 mi, assist for left LE alignment Therapeutic Exercises Sitting Exercises sitting balance Sitting Exercise Name f/b/side wt shift, reaching out side of MIKA across body RUE, balloon volle Equipment Used dynadiClubLocal Reps/Minutes 5 min Comments CGA- Roberto of 1 person Gait Training Gait Activity parallel bars Description forward Device Used cues for minimal UE support Level of Assistance min UE support right on bar Surface firm Treatment Focus neutral alignment, weight- shift Comments mirror for visual feedback. Focusing on Flexing L knee/hip , increased stance time left LE 1 Description level surface (Blue TB spiral wrap) Device Used quad cane - 2 pt gait Level of Assistance SBA Surface indoor carpet, firm Distance/Duration 170 ft in 8 min 15 sec Treatment Focus L hip IR and decrease L knee hyperextension, pacing, metronome for pacing Comments 1. L4 TB tied at left shoe, wrapped around clockwise LE with gait belt to assist with internal rotation foot/ hip facilitation to allow LLE proper alignment. PT-OP-R Modalities Start: 05/28/19 08:11 Freq: Status: Active Protocol: Document 03/19/20 10:31 [facility] (Rec: 03/19/20 11:17 [facility] [id number]) Electric Stimulation Electric Stimulation Functional Electric Stimulation Body Location left anterior tib Duration (Minutes) 10 Intensity 52 Contraction Type Normal Cycle 10/10 Ramp 2.0 Patient Position Sitting Comments Christi stim PT-OP-T Assessment and Plan Start: 05/28/19 08:11 Freq: Status: Active Protocol: Document 10/27/20 12:01 [facility] (Rec: 10/27/20 12:15 [facility] [id number]) Physical Therapy Assessment Goals Five Impairment gait speed not adequate for safe community ambulation Senior Living Goal (LTG) Patient able to ambulate 300' in 6 min 06/02/20: 134' 08/28/20: 144', likely not as high due to new shoes and wearing old AFO because fits better in new shoes. Requires level 4 theraband for derotation of left LE into more neutral position for gait . 09/19/20: 146 ft 6 min w/ QC and Tb wrapping to LLE. LTG Duration 11/25/20 Four Impairment requires assistance with bed mobility and transfers Short Term Goal (STG) Patient will be able to perform all bed mobility independently to improve her functional independence. 10/31/19: good goal progress 06/02/20:inconsistent, but min assist most times 08/28/20 STG Duration goal met Senior Living Goal (LTG) Patient will be able to perform a floor transfer with SB to min assist 10/31/19: max assist today 01/02/20: has not been willing to try since 10/31/19 06/02/20: does not feel strong enough to try yet. 08/28/20: max assistance required LTG Duration 11/25/20 Three Impairment weakness left UE and LE s/p CVA Senior Living Goal (LTG) Improve functional strength in left LE, as evidenced by ability to move from sit > < stand without use of UE's. 10/31/19: OT starts tomorrow. Good progress with sit to stand, though mostly using right UE and LE 01/02/20: Improving ability to perform, able to increase weight-bearing through left LE with cues, but still some use of right UE 05/26/20: With manual and visual feedback patient able to transfer sit to stand with only CG A. 08/28/20: inconsistent ability to move sit to stand without using UE's, but able to do transfer without physical assistance LTG Duration 11/25/20 Two Impairment balance dysfunction with high risk for falls Senior Living Goal (LTG) Improve balance as evidenced by improvement in Tinnetti balance and gait score to low fall risk range to improve safety in the home and community. 10/31/19: remains high risk for falls 01/02/20: some improvement but still in high risk category 05/26/20: Tinetti score in high risk category 08/28/20: moderate risk for falls LTG Duration 11/25/20 One Impairment requires armaan-walker for gait, limited to household gait Window Glazier Helper Goal (LTG) Patient able to ambulate with least restrictive device for functional community distances to improve her functional independence and quality of life. 10/30/19: no progress due to Covid 19. 11/02/19: able to ambulate with quad cane but with very slow speed, household distances, very short community distances . 05/26/20: Now able to ambulate with use of single point cane and use of L4 theraband wrapped around left LE to facilitate left LE internal rotation for improved alignment. Patient unable to don the theraband on her own. Gait is for short distances and very slow at 39 ft in 2 min. 08/28/20: has demonstrated improved gait ability, still using theraband for derotation of LE for more neutral position. Able to consistenly use quad cane and is increasing stride length especially with cues. Now able to ascend and descend 4 stairs with min assist using railing. Mod assist on 6 stairs. LTG Duration 11/25/20 Assessment Summary Assessment Patient struggling more with gait today due to different height shoes, though was able to go furthest with Sci-Fit today, no rest break. Physical Therapy Plan Frequency and Duration Frequency of Treatment 2x/Week Duration of Treatment 12 wks Plan of Care Start Date 08/28/20 Plan of Care End Date 11/26/20 Therapeutic Interventions Therapeutic Interventions Aquatic Therapy,Balance Training,Gait Training,Home Exercise Program,Neuromuscular Re-education,Orthotic/ Prosthetic Management,Patient/ Caregiver Education,Self-Care/ Home Management,Taping, Therapeutic Activities, Therapeutic Exercises Modalities Cold Pack/Ice Massage,Hot Packs Next Visit Focus/Plan Next Note Type Treatment Note Next Visit Plan standing pre-gait activities without AFO, Blue foam.
--- NOTE | 2020-10-30 17:14 | PT.OTN ---
Current Diagnoses Hemiplegia, unspecified affecting unspecified side (10/30/20) Difficulty in walking, not elsewhere classified (10/30/20) Weakness (10/30/20) History of falling (10/30/20) Physical Therapy Treatment Note PT-OP-A Visit Information Start: 05/28/19 08:11 Freq: Status: Active Protocol: Document 10/30/20 11:15 SAK (Rec: 10/30/20 12:05 SAK [id number]) Out-Patient Physical Therapy Visit Information Visit Information Visit Type Treatment Note Visit Start Time 11:15 Visit Stop Time 12:10 Total Visit Minutes 55 Visit Number 73 Number of HEADLIGHT ADJUSTER Visits 0 PT-OP-B Current Condition Start: 05/28/19 08:11 Freq: Status: Active Protocol: Document 06/04/20 11:15 SAK (Rec: 06/05/20 16:34 SAK [id number]) Current Condition History of Current Condition Onset Date 2014 Current Complaints weakness, requires assistance with all mobility and household tasks History of Current Condition Reports that she suffered a stroke in 2014 after surgery for brain aneurysm. CVA caused weakness on the left side of her body, gait and balance difficulty, seizures. PT-OP-C Subjective Start: 05/28/19 08:11 Freq: Status: Active Protocol: Document 10/30/20 11:15 SAK (Rec: 10/30/20 12:05 SAK [id number]) OP-PT Subjective Patient Comments Patient Comments Having evaluation of AFO . Being put back on pain medication at night, can't remember name. Being referred to behavioral health for counseling, on waiting list. Agreeable to do some ex without AFO. PT-OP-D Balance Start: 05/28/19 08:11 Freq: Status: Active Protocol: Document 05/29/19 14:30 SAK (Rec: 05/30/19 14:24 SAK [id number]) OP-PT Balance Assessment Sitting Balance Static Sitting Balance Ability Good Dynamic Sitting Balance Ability Fair Standing Balance Static Standing Balance Ability Good Dynamic Standing Balance Ability Fair Device Used hemiwalker right Tinetti Balance Assessment Sitting Balance Sitting Balance Steady, safe Arising from Chair Attempts to Arise Able, requires >1 attempt Standing Balance Immediate Standing Balance Steady with support Standing Balance Steady, wide stance Nudged Response Begins to fall Standing with Eyes Closed Unsteady Turning Step Pattern Turning 360 Degrees Discontinuous steps Stability Turning 360 Degrees Unsteady, grabs/staggers Sitting Down Sitting Down Uses arms or unsteady Gait and Step Initiation of Gait Hesitancy, mult. attempts Right Foot Step Length Does not pass stance ft. Right Foot Step Height Does not clear floor Left Foot Step Length Does not pass stance foot Left Foot Step Height Does not clear floor Step Description Step Symmetry Step length not equal Gait Description Path Description Mild/moderate deviation Trunk Description Marked sway or uses aide Walking Stance Heels apart Scoring and Interpretation Tinetti Composite Score (points) 6 Interpretation of Scores High risk for falls(< 19) Herrera Fall Scale Copyright Permission PT-OP-E Functional Tests Start: 05/28/19 08:11 Freq: Status: Active Protocol: Document 05/26/20 11:15 [facility] (Rec: 05/26/20 17:04 [facility] [id number]) Functional Tests 2 Minute Walk Test Distance 39 ft Device Used single point cane Comments derotation application of level 4 theraband to decrease excess ER right LE PT-OP-G Mobility & Gait Start: 05/28/19 08:11 Freq: Status: Active Protocol: Document 05/26/20 11:15 [facility] (Rec: 05/26/20 17:04 [facility] [id number]) OP Mobility Evaluation Bed Mobility Rolling min assist to right CGA to left Supine to and from Sit min assist to right CGA to left Transfers Sit to Stand CGA to min assist without UE use Bed to Chair Transfers requires use of right UE but able to do with SBA Floor Transfers unable PT-OP-H Neuro Start: 05/28/19 08:11 Freq: Status: Active Protocol: Document 05/29/19 14:30 [facility] (Rec: 05/30/19 14:24 [facility] [id number]) Sensation Evaluation Gross Sensation Gross Sensation Left UE Impaired,Left LE Impaired Sensation Description Paresthesia,Numbness Coordination Evaluation Lower Extremity Tests Left Alternate Heel to Knee; Heel to Toe Test Moderate Impairment Heel on Boles Test Moderate Impairment Foot Tapping Test Moderate Impairment PT-OP-K Range of Motion Start: 05/28/19 08:11 Freq: Status: Active Protocol: Document 05/26/20 11:15 SAK (Rec: 05/26/20 17:04 [facility] [id number]) Hip Goniometric Range of Motion Hip jake Hip ROM WFL Yes Comments actively right LE, passively left LE Knee Goniometric Range of Motion Knee jake Knee ROM WFL Yes Ankle and Foot Goniometric Range of Motion Ankle and Foot Left Passive Ankle/Foot ROM WFL No Left Active Ankle/Foot ROM WFL No PT-OP-M Strength Start: 05/28/19 08:11 Freq: Status: Active Protocol: Document 05/26/20 11:15 [facility] (Rec: 05/26/20 17:04 [facility] [id number]) Hip Strength Hip Manual Muscle Testing Left Flexion (L2) 3- Fair- Extension (S1) 2 Poor Abduction 2+ Poor+ External Rotation 3- Fair- Internal Rotation 3+ Fair+ Right Flexion (L2) 4 Good Extension (S1) 4- Good- Abduction 4 Good External Rotation 3+ Fair+ Internal Rotation 4- Good- PT-OP-Q Treatments Start: 05/28/19 08:11 Freq: Status: Active Protocol: Document 10/30/20 11:15 [facility] (Rec: 10/30/20 12:05 [facility] [id number]) Cardio Equipment Recumbent Stepper (Sci-Fit) Duration (Minutes) 10 Resistance 2 Seat Position 9 Other 1.32 mi, assist for left LE alignment Therapeutic Exercises Sitting Exercises HC stretch Side left Reps/Minutes 3 x 30 Comments manual Standing Exercises sit stands w/ AFO donned Standing Exercise Name no UEs Equipment Used 18 chair Reps/Minutes 5x with AFO, 5x without AFO using hands some Comments working on not twisting while sitting Gait Training Gait Activity pre-gait weight shifts Description AP, side to side Device Used none Level of Assistance CG, verbal cues Surface firm Distance/Duration mirror Treatment Focus increased weight bearing left LE (cued >50%) Comments preparation phase with midline alignment followed by weight shifts with mirror for visual feedback, no AFO 1 Description level surface Device Used single point cane, AFO Level of Assistance SBA, cues Surface indoor carpet, firm Treatment Focus L hip IR and decrease L knee hyperextension, pacing, metronome for pacing Comments 1. L4 TB tied at left shoe, wrapped around clockwise LE with gait belt to assist with internal rotation foot/ hip facilitation to allow LLE proper alignment. Neuro Re-Education Treatment Balance Activities balloon volleyball Details standing Surface firm Comments after weight-shifting in front of mirror no AFO PT-OP-R Modalities Start: 05/28/19 08:11 Freq: Status: Active Protocol: Document 11/11/20 10:31 SAK (Rec: 03/19/20 11:17 SAK [id number]) Electric Stimulation Electric Stimulation Functional Electric Stimulation Body Location left anterior tib Duration (Minutes) 10 Intensity 52 Contraction Type Normal Cycle 10 Ramp 2.0 Patient Position Sitting Comments Palestinian stim PT-OP-T Assessment and Plan Start: 05/28/19 08:11 Freq: Status: Active Protocol: Document 10/30/20 11:15 SAK (Rec: 10/30/20 12:05 [facility] [id number]) Physical Therapy Assessment Goals Five Impairment gait speed not adequate for safe community ambulation Shelter Goal (LTG) Patient able to ambulate 300' in 6 min 06/02/20: 134' 08/28/20: 144', likely not as high due to new shoes and wearing old AFO because fits better in new shoes. Requires level 4 theraband for derotation of left LE into more neutral position for gait . 09/19/20: 146 ft 6 min w/ QC and Tb wrapping to LLE. LTG Duration 11/25/20 Four Impairment requires assistance with bed mobility and transfers Short Term Goal (STG) Patient will be able to perform all bed mobility independently to improve her functional independence. 10/31/19: good goal progress 06/02/20:inconsistent, but min assist most times 08/28/20 STG Duration goal met Shelter Goal (LTG) Patient will be able to perform a floor transfer with SB to min assist 10/31/19: max assist today 01/02/20: has not been willing to try since 10/31/19 06/02/20: does not feel strong enough to try yet. 08/28/20: max assistance required LTG Duration 11/25/20 Three Impairment weakness left UE and LE s/p CVA Shelter Goal (LTG) Improve functional strength in left LE, as evidenced by ability to move from sit > < stand without use of UE's. 10/31/19: OT starts tomorrow. Good progress with sit to stand, though mostly using right UE and LE 01/02/20: Improving ability to perform, able to increase weight-bearing through left LE with cues, but still some use of right UE 05/26/20: With manual and visual feedback patient able to transfer sit to stand with only CG A. 08/28/20: inconsistent ability to move sit to stand without using UE's, but able to do transfer without physical assistance LTG Duration 11/25/20 Two Impairment balance dysfunction with high risk for falls Shelter Goal (LTG) Improve balance as evidenced by improvement in Tinnetti balance and gait score to low fall risk range to improve safety in the home and community. 10/31/19: remains high risk for falls 01/02/20: some improvement but still in high risk category 05/26/20: Tinetti score in high risk category 08/28/20: moderate risk for falls LTG Duration 11/25/20 One Impairment requires armaan-walker for gait, limited to household gait Shelter Goal (LTG) Patient able to ambulate with least restrictive device for functional community distances to improve her functional independence and quality of life. 10/30/19: no progress due to Covid 19. 11/02/19: able to ambulate with quad cane but with very slow speed, household distances, very short community distances . 05/26/20: Now able to ambulate with use of single point cane and use of L4 theraband wrapped around left LE to facilitate left LE internal rotation for improved alignment. Patient unable to don the theraband on her own. Gait is for short distances and very slow at 39 ft in 2 min. 08/28/20: has demonstrated improved gait ability, still using theraband for derotation of LE for more neutral position. Able to consistenly use quad cane and is increasing stride length especially with cues. Now able to ascend and descend 4 stairs with min assist using railing. Mod assist on 6 stairs. LTG Duration 11/25/20 Assessment Summary Assessment During balloon volleyball, no AFO CG to min assist required to prevent knee recurvatum. Needs further work on knee control in weight-bearing. Unable to ambulate without AFO due to lack of knee control at this time. Depression affecting progress with PT. Patient to start pain medication at night. Physical Therapy Plan Frequency and Duration Frequency of Treatment 2x/Week Duration of Treatment 12 wks Plan of Care Start Date 08/28/20 Plan of Care End Date 11/26/20 Therapeutic Interventions Therapeutic Interventions Aquatic Therapy,Balance Training,Gait Training,Home Exercise Program,Neuromuscular Re-education,Orthotic/ Prosthetic Management,Patient/ Caregiver Education,Self-Care/ Home Management,Taping, Therapeutic Activities, Therapeutic Exercises Modalities Cold Pack/Ice Massage,Hot Packs Next Visit Focus/Plan Next Note Type Treatment Note Next Visit Plan Continue closed chain exercises without AFO as tolerated.
--- NOTE | 2020-11-03 12:06 | PT-OP ANOTE ---
cancelled due to excessive heat.
--- NOTE | 2020-11-05 14:01 | PT.OTN ---
Current Diagnoses Hemiplegia, unspecified affecting unspecified side (11/05/20) Difficulty in walking, not elsewhere classified (11/05/20) Weakness (11/05/20) History of falling (11/05/20) Physical Therapy Treatment Note PT-OP-A Visit Information Start: 05/28/19 08:11 Freq: Status: Active Protocol: Document 11/05/20 11:39 SAK (Rec: 11/05/20 14:01 SAK [id number]) Out-Patient Physical Therapy Visit Information Visit Information Visit Type Treatment Note Visit Start Time 11:15 Visit Stop Time 12:05 Total Visit Minutes 50 Visit Number 74 Number of MEDICAL EQUIPMENT TECHNICIAN Visits 0 PT-OP-B Current Condition Start: 05/28/19 08:11 Freq: Status: Active Protocol: Document 06/04/20 11:15 SAK (Rec: 06/05/20 16:34 [facility] [id number]) Current Condition History of Current Condition Onset Date 2014 Current Complaints weakness, requires assistance with all mobility and household tasks History of Current Condition Reports that she suffered a stroke in 2014 after surgery for brain aneurysm. CVA caused weakness on the left side of her body, gait and balance difficulty, seizures. PT-OP-C Subjective Start: 05/28/19 08:11 Freq: Status: Active Protocol: Document 11/05/20 11:39 SAK (Rec: 11/05/20 14:01 SAK [id number]) OP-PT Subjective Patient Comments Patient Comments Patient reports she has renewed motivation for PT;I won't get better unless I work hard. Reports poor tolerance for the heat prior few days, no air conditioning, didn't feeel she could tolerate PT. PT-OP-D Balance Start: 05/28/19 08:11 Freq: Status: Active Protocol: Document 05/29/19 14:30 SAK (Rec: 05/30/19 14:24 SAK [id number]) OP-PT Balance Assessment Sitting Balance Static Sitting Balance Ability Good Dynamic Sitting Balance Ability Fair Standing Balance Static Standing Balance Ability Good Dynamic Standing Balance Ability Fair Device Used hemiwalker right Tinetti Balance Assessment Sitting Balance Sitting Balance Steady, safe Arising from Chair Attempts to Arise Able, requires >1 attempt Standing Balance Immediate Standing Balance Steady with support Standing Balance Steady, wide stance Nudged Response Begins to fall Standing with Eyes Closed Unsteady Turning Step Pattern Turning 360 Degrees Discontinuous steps Stability Turning 360 Degrees Unsteady, grabs/staggers Sitting Down Sitting Down Uses arms or unsteady Gait and Step Initiation of Gait Hesitancy, mult. attempts Right Foot Step Length Does not pass stance ft. Right Foot Step Height Does not clear floor Left Foot Step Length Does not pass stance foot Left Foot Step Height Does not clear floor Step Description Step Symmetry Step length not equal Gait Description Path Description Mild/moderate deviation Trunk Description Marked sway or uses aide Walking Stance Heels apart Scoring and Interpretation Tinetti Composite Score (points) 6 Interpretation of Scores High risk for falls(< 19) Herrera Fall Scale Copyright Permission PT-OP-E Functional Tests Start: 05/28/19 08:11 Freq: Status: Active Protocol: Document 05/26/20 11:15 [facility] (Rec: 05/26/20 17:04 [facility] [id number]) Functional Tests 2 Minute Walk Test Distance 39 ft Device Used single point cane Comments derotation application of level 4 theraband to decrease excess ER right LE PT-OP-G Mobility & Gait Start: 05/28/19 08:11 Freq: Status: Active Protocol: Document 05/26/20 11:15 [facility] (Rec: 05/26/20 17:04 [facility] [id number]) OP Mobility Evaluation Bed Mobility Rolling min assist to right CGA to left Supine to and from Sit min assist to right CGA to left Transfers Sit to Stand CGA to min assist without UE use Bed to Chair Transfers requires use of right UE but able to do with SBA Floor Transfers unable PT-OP-H Neuro Start: 05/28/19 08:11 Freq: Status: Active Protocol: Document 05/29/19 14:30 [facility] (Rec: 05/30/19 14:24 [facility] [id number]) Sensation Evaluation Gross Sensation Gross Sensation Left UE Impaired,Left LE Impaired Sensation Description Paresthesia,Numbness Coordination Evaluation Lower Extremity Tests Left Alternate Heel to Knee; Heel to Toe Test Moderate Impairment Heel on Boles Test Moderate Impairment Foot Tapping Test Moderate Impairment PT-OP-K Range of Motion Start: 05/28/19 08:11 Freq: Status: Active Protocol: Document 05/26/20 11:15 [facility] (Rec: 05/26/20 17:04 [facility] [id number]) Hip Goniometric Range of Motion Hip jake Hip ROM WFL Yes Comments actively right LE, passively left LE Knee Goniometric Range of Motion Knee jake Knee ROM WFL Yes Ankle and Foot Goniometric Range of Motion Ankle and Foot Left Passive Ankle/Foot ROM WFL No Left Active Ankle/Foot ROM WFL No PT-OP-M Strength Start: 05/28/19 08:11 Freq: Status: Active Protocol: Document 05/26/20 11:15 SAK (Rec: 05/26/20 17:04 [facility] [id number]) Hip Strength Hip Manual Muscle Testing Left Flexion (L2) 3- Fair- Extension (S1) 2 Poor Abduction 2+ Poor+ External Rotation 3- Fair- Internal Rotation 3+ Fair+ Right Flexion (L2) 4 Good Extension (S1) 4- Good- Abduction 4 Good External Rotation 3+ Fair+ Internal Rotation 4- Good- PT-OP-Q Treatments Start: 05/28/19 08:11 Freq: Status: Active Protocol: Document 11/05/20 11:39 [facility] (Rec: 11/05/20 12:07 [facility] [id number]) Cardio Equipment Recumbent Stepper (Sci-Fit) Duration (Minutes) 11 Resistance 2 Seat Position 11 Other 1.14mi, L5 TB to hold left LE on pedal Gym Equipment Shuttle Recovery Unilateral Squats Resistance 37 Shuttle Recovery Platform Stable Reps/Time 2 x 15 Bilateral Squats Details bilateral squats w/ ball between knees, glut fac heel press Resistance 50# Reps/Time 2 x 10 reps; cues for LLE hip rotation Shuttle Balance green Details balance, weight shift, movement of platform by pt, balloon volleyball Reps/Duration 6 min Comments cords loose Gait Training Gait Activity stairs Description 4 stairs Device Used right railing, AFO, TB wrap Level of Assistance CG assist, cues for alternating pattern Distance/Duration 1 set 4 6 stairs Treatment Focus alternating LE pattern facilitation Comments verbal and manual cues to increase weight shift to left LE, unlock left knee, alternating pattern 1 Description level surface Device Used single point cane, AFO Level of Assistance SBA, cues Surface indoor carpet, firm Distance/Duration 50'x4 Treatment Focus L hip IR and decrease L knee hyperextension, pacing, metronome for pacing Comments 1. L4 TB tied at left shoe, wrapped around clockwise LE with gait belt to assist with internal rotation foot/ hip facilitation to allow LLE proper alignment. PT-OP-R Modalities Start: 05/28/19 08:11 Freq: Status: Active Protocol: Document 03/19/20 10:31 SAK (Rec: 03/19/20 11:17 SAK [id number]) Electric Stimulation Electric Stimulation Functional Electric Stimulation Body Location left anterior tib Duration (Minutes) 10 Intensity 52 Contraction Type Normal Cycle 10/10 Ramp 2.0 Patient Position Sitting Comments Stateless stim PT-OP-T Assessment and Plan Start: 05/28/19 08:11 Freq: Status: Active Protocol: Document 11/05/20 11:39 [facility] (Rec: 11/05/20 12:07 [facility] [id number]) Physical Therapy Assessment Goals Five Impairment gait speed not adequate for safe community ambulation Internal Control Analyst Goal (LTG) Patient able to ambulate 300' in 6 min 06/02/20: 134' 08/28/20: 144', likely not as high due to new shoes and wearing old AFO because fits better in new shoes. Requires level 4 theraband for derotation of left LE into more neutral position for gait . 09/19/20: 146 ft 6 min w/ QC and Tb wrapping to LLE. LTG Duration 11/25/20 Four Impairment requires assistance with bed mobility and transfers Short Term Goal (STG) Patient will be able to perform all bed mobility independently to improve her functional independence. 10/31/19: good goal progress 06/02/20:inconsistent, but min assist most times 08/28/20 STG Duration goal met Internal Control Analyst Goal (LTG) Patient will be able to perform a floor transfer with SB to min assist 10/31/19: max assist today 01/02/20: has not been willing to try since 10/31/19 06/02/20: does not feel strong enough to try yet. 08/28/20: max assistance required LTG Duration 11/25/20 Three Impairment weakness left UE and LE s/p CVA Internal Control Analyst Goal (LTG) Improve functional strength in left LE, as evidenced by ability to move from sit > < stand without use of UE's. 10/31/19: OT starts tomorrow. Good progress with sit to stand, though mostly using right UE and LE 01/02/20: Improving ability to perform, able to increase weight-bearing through left LE with cues, but still some use of right UE 05/26/20: With manual and visual feedback patient able to transfer sit to stand with only CG A. 08/28/20: inconsistent ability to move sit to stand without using UE's, but able to do transfer without physical assistance LTG Duration 11/25/20 Two Impairment balance dysfunction with high risk for falls Correction Goal (LTG) Improve balance as evidenced by improvement in Tinnetti balance and gait score to low fall risk range to improve safety in the home and community. 10/31/19: remains high risk for falls 01/02/20: some improvement but still in high risk category 05/26/20: Tinetti score in high risk category 08/28/20: moderate risk for falls LTG Duration 11/25/20 One Impairment requires armaan-walker for gait, limited to household gait Correction Goal (LTG) Patient able to ambulate with least restrictive device for functional community distances to improve her functional independence and quality of life. 10/30/19: no progress due to Covid 19. 11/02/19: able to ambulate with quad cane but with very slow speed, household distances, very short community distances . 05/26/20: Now able to ambulate with use of single point cane and use of L4 theraband wrapped around left LE to facilitate left LE internal rotation for improved alignment. Patient unable to don the theraband on her own. Gait is for short distances and very slow at 39 ft in 2 min. 08/28/20: has demonstrated improved gait ability, still using theraband for derotation of LE for more neutral position. Able to consistenly use quad cane and is increasing stride length especially with cues. Now able to ascend and descend 4 stairs with min assist using railing. Mod assist on 6 stairs. LTG Duration 11/25/20 Assessment Summary Assessment Patient had increased activity tolerance today, improved speed of gait, and improved wt shift to left during shuttle balance and with stair ambulation. Very fatigued after PT but able to ambulate out to waiting room despite fatigue, despite feeling she may need wheelchai. Physical Therapy Plan Frequency and Duration Frequency of Treatment 2x/Week Duration of Treatment 12 wks Plan of Care Start Date 08/28/20 Plan of Care End Date 11/26/20 Therapeutic Interventions Therapeutic Interventions Aquatic Therapy,Balance Training,Gait Training,Home Exercise Program,Neuromuscular Re-education,Orthotic/ Prosthetic Management,Patient/ Caregiver Education,Self-Care/ Home Management,Taping, Therapeutic Activities, Therapeutic Exercises Modalities Cold Pack/Ice Massage,Hot Packs Next Visit Focus/Plan Next Note Type Treatment Note Next Visit Plan Continue PT per POC. Start with 6 min walk test to assess speed as we work toward community ambulation speed. Consider step-ups/downs onto 1 -2 height with cane only.
--- NOTE | 2020-11-13 11:23 | PT.OTN ---
Current Diagnoses Hemiplegia, unspecified affecting unspecified side (11/13/20) Difficulty in walking, not elsewhere classified (11/13/20) Weakness (11/13/20) History of falling (11/13/20) Physical Therapy Treatment Note PT-OP-A Visit Information Start: 05/28/19 08:11 Freq: Status: Active Protocol: Document 11/13/20 10:34 SP (Rec: 11/13/20 12:08 SP [id number]) Out-Patient Physical Therapy Visit Information Visit Information Visit Type Treatment Note Visit Start Time 10:34 Visit Stop Time 11:23 Total Visit Minutes 49 Visit Number 75 Number of EARLY EDUCATION TEACHER Visits 1 Precautions Precautions Seizure disorder memory dysfunction PT-OP-B Current Condition Start: 05/28/19 08:11 Freq: Status: Active Protocol: Document 06/04/20 11:15 SAK (Rec: 06/05/20 16:34 SAK [id number]) Current Condition History of Current Condition Onset Date 2014 Current Complaints weakness, requires assistance with all mobility and household tasks History of Current Condition Reports that she suffered a stroke in 2014 after surgery for brain aneurysm. CVA caused weakness on the left side of her body, gait and balance difficulty, seizures. PT-OP-C Subjective Start: 05/28/19 08:11 Freq: Status: Active Protocol: Document 11/13/20 10:34 SP (Rec: 11/13/20 12:08 SP [id number]) OP-PT Subjective Patient Comments Patient Comments Pt reports her R hip down leg to lateral side of calf has been burning pain since last tx. Her caregiver has been helping with stretching and massage which does help due to challenging doing self. Would like to continue bike if have time but want to try decrease pain this tx. Pt also stated has an appt with processing tech on 12th to follow up and reevaluate her L AFO and thigh extension due to pain getting worse in her L knee when walking, maybe needs more support. She also saw Dr Valdez last week for needling and seemed to make it worse burning pain, later in day after his appt, noted one of the needles was still in her ankle and pt thinks maybe why was having worsening pain walking with it still inserted , improved a little after took out. Patient Reported Progress Worse PT-OP-D Balance Start: 05/28/19 08:11 Freq: Status: Active Protocol: Document 05/29/19 14:30 [facility] (Rec: 05/30/19 14:24 [facility] [id number]) OP-PT Balance Assessment Sitting Balance Static Sitting Balance Ability Good Dynamic Sitting Balance Ability Fair Standing Balance Static Standing Balance Ability Good Dynamic Standing Balance Ability Fair Device Used hemiwalker right Tinetti Balance Assessment Sitting Balance Sitting Balance Steady, safe Arising from Chair Attempts to Arise Able, requires >1 attempt Standing Balance Immediate Standing Balance Steady with support Standing Balance Steady, wide stance Nudged Response Begins to fall Standing with Eyes Closed Unsteady Turning Step Pattern Turning 360 Degrees Discontinuous steps Stability Turning 360 Degrees Unsteady, grabs/staggers Sitting Down Sitting Down Uses arms or unsteady Gait and Step Initiation of Gait Hesitancy, mult. attempts Right Foot Step Length Does not pass stance ft. Right Foot Step Height Does not clear floor Left Foot Step Length Does not pass stance foot Left Foot Step Height Does not clear floor Step Description Step Symmetry Step length not equal Gait Description Path Description Mild/moderate deviation Trunk Description Marked sway or uses aide Walking Stance Heels apart Scoring and Interpretation Tinetti Composite Score (points) 6 Interpretation of Scores High risk for falls(< 19) Herrera Fall Scale Copyright Permission PT-OP-E Functional Tests Start: 05/28/19 08:11 Freq: Status: Active Protocol: Document 05/26/20 11:15 [facility] (Rec: 05/26/20 17:04 [facility] [id number]) Functional Tests 2 Minute Walk Test Distance 39 ft Device Used single point cane Comments derotation application of level 4 theraband to decrease excess ER right LE PT-OP-G Mobility & Gait Start: 05/28/19 08:11 Freq: Status: Active Protocol: Document 05/26/20 11:15 [facility] (Rec: 05/26/20 17:04 [facility] [id number]) OP Mobility Evaluation Bed Mobility Rolling min assist to right CGA to left Supine to and from Sit min assist to right CGA to left Transfers Sit to Stand CGA to min assist without UE use Bed to Chair Transfers requires use of right UE but able to do with SBA Floor Transfers unable PT-OP-H Neuro Start: 05/28/19 08:11 Freq: Status: Active Protocol: Document 05/29/19 14:30 [facility] (Rec: 05/30/19 14:24 [facility] [id number]) Sensation Evaluation Gross Sensation Gross Sensation Left UE Impaired,Left LE Impaired Sensation Description Paresthesia,Numbness Coordination Evaluation Lower Extremity Tests Left Alternate Heel to Knee; Heel to Toe Test Moderate Impairment Heel on Boles Test Moderate Impairment Foot Tapping Test Moderate Impairment PT-OP-K Range of Motion Start: 05/28/19 08:11 Freq: Status: Active Protocol: Document 05/26/20 11:15 SAK (Rec: 05/26/20 17:04 SAK [id number]) Hip Goniometric Range of Motion Hip jake Hip ROM WFL Yes Comments actively right LE, passively left LE Knee Goniometric Range of Motion Knee jake Knee ROM WFL Yes Ankle and Foot Goniometric Range of Motion Ankle and Foot Left Passive Ankle/Foot ROM WFL No Left Active Ankle/Foot ROM WFL No PT-OP-M Strength Start: 05/28/19 08:11 Freq: Status: Active Protocol: Document 05/26/20 11:15 [facility] (Rec: 05/26/20 17:04 SAK [id number]) Hip Strength Hip Manual Muscle Testing Left Flexion (L2) 3- Fair- Extension (S1) 2 Poor Abduction 2+ Poor+ External Rotation 3- Fair- Internal Rotation 3+ Fair+ Right Flexion (L2) 4 Good Extension (S1) 4- Good- Abduction 4 Good External Rotation 3+ Fair+ Internal Rotation 4- Good- PT-OP-Q Treatments Start: 05/28/19 08:11 Freq: Status: Active Protocol: Document 11/13/20 10:34 SP (Rec: 11/13/20 12:08 SP [id number]) Gait Training Gait Activity 6 min walk test Description 2 pt gait most of distance, then 3pt as tired Device Used SPC, Tb Blue wrapping Distance/Duration 153 ft (improved 7 ft from last assessed 146 ft) Treatment Focus speed and safety Comments did not use metronome today Manual Therapy Treatment Soft Tissue Mobilization L calf Mobilization Type Cross-Friction,Myofascial Release,Sustained Pressure, Other Intensity/Depth Superficial Body Position Hooklying Comments also sustained pressure achilles or calf manual MWM PF /DF with good response decreased tension. piriformis Body Location left piriformis ( R sidelying) Mobilization Type Cross-Friction,Myofascial Release,Sustained Pressure Intensity/Depth Superficial Body Position Sidelying Comments sensitive to pressure, broad more tolerant. Joint Mobilizations MTPs, talocrual mobs, rotation forefoot Joint L Direction PAs Grade II Body Position Hooklying Comments good feedback response Nerve Glides sciatic nerve glide Nerve L Body Position Hooklying Comments manual HS stretch then gentle MWM w/ PF/DF - good feedback response Manual Techniques 1 Type manual achilles tendon and HS stretchin Body Location L Body Position Hooklying Comments MWM w/ ankle pump PT-OP-R Modalities Start: 05/28/19 08:11 Freq: Status: Active Protocol: Document 03/19/20 10:31 SAK (Rec: 03/19/20 11:17 SAK [id number]) Electric Stimulation Electric Stimulation Functional Electric Stimulation Body Location left anterior tib Duration (Minutes) 10 Intensity 52 Contraction Type Normal Cycle 10/10 Ramp 2.0 Patient Position Sitting Comments [place] stim PT-OP-T Assessment and Plan Start: 05/28/19 08:11 Freq: Status: Active Protocol: Document 11/13/20 10:34 SP (Rec: 11/13/20 12:08 SP [id number]) Physical Therapy Assessment Goals Five Impairment gait speed not adequate for safe community ambulation Unisaw Operator Goal (LTG) Patient able to ambulate 300' in 6 min 06/02/20: 134' 08/28/20: 144', likely not as high due to new shoes and wearing old AFO because fits better in new shoes. Requires level 4 theraband for derotation of left LE into more neutral position for gait . 09/19/20: 146 ft 6 min w/ QC and Tb wrapping to LLE. 11/13/20: 153 ft CG w/ SPC 2>3 pt gait w/out metronome w/ reported L glut/ lateral leg burn pain, 2 step brief stand breaks. LTG Duration 11/25/20 Four Impairment requires assistance with bed mobility and transfers Short Term Goal (STG) Patient will be able to perform all bed mobility independently to improve her functional independence. 10/31/19: good goal progress 06/02/20:inconsistent, but min assist most times 08/28/20 STG Duration goal met Unisaw Operator Goal (LTG) Patient will be able to perform a floor transfer with SB to min assist 10/31/19: max assist today 01/02/20: has not been willing to try since 10/31/19 06/02/20: does not feel strong enough to try yet. 08/28/20: max assistance required LTG Duration 11/25/20 Three Impairment weakness left UE and LE s/p CVA Unisaw Operator Goal (LTG) Improve functional strength in left LE, as evidenced by ability to move from sit > < stand without use of UE's. 10/31/19: OT starts tomorrow. Good progress with sit to stand, though mostly using right UE and LE 01/02/20: Improving ability to perform, able to increase weight-bearing through left LE with cues, but still some use of right UE 05/26/20: With manual and visual feedback patient able to transfer sit to stand with only CG A. 08/28/20: inconsistent ability to move sit to stand without using UE's, but able to do transfer without physical assistance LTG Duration 11/25/20 Two Impairment balance dysfunction with high risk for falls Unisaw Operator Goal (LTG) Improve balance as evidenced by improvement in Tinnetti balance and gait score to low fall risk range to improve safety in the home and community. 10/31/19: remains high risk for falls 01/02/20: some improvement but still in high risk category 05/26/20: Tinetti score in high risk category 08/28/20: moderate risk for falls LTG Duration 11/25/20 One Impairment requires armaan-walker for gait, limited to household gait Care Home Goal (LTG) Patient able to ambulate with least restrictive device for functional community distances to improve her functional independence and quality of life. 10/30/19: no progress due to Covid 19. 11/02/19: able to ambulate with quad cane but with very slow speed, household distances, very short community distances . 05/26/20: Now able to ambulate with use of single point cane and use of L4 theraband wrapped around left LE to facilitate left LE internal rotation for improved alignment. Patient unable to don the theraband on her own. Gait is for short distances and very slow at 39 ft in 2 min. 08/28/20: has demonstrated improved gait ability, still using theraband for derotation of LE for more neutral position. Able to consistenly use quad cane and is increasing stride length especially with cues. Now able to ascend and descend 4 stairs with min assist using railing. Mod assist on 6 stairs. LTG Duration 11/25/20 Assessment Summary Assessment Pt improved distance 6MWT by 7 ft today with SPC vs QC in past but had burning pain in L LE pre tx but improved decrease muscle tightness and pain post manual noted when walking to front end of tx. Pt demonstrates L knee hyperextending more today w/ Blue TB wrap. Will be assessed by ortho next week in this regard. The thigh added support used to have attached to brace cut into back of her thigh so seeing if can adjust this to fit more properly, per pt feedback. Physical Therapy Plan Frequency and Duration Frequency of Treatment 2x/Week Duration of Treatment 12 wks Plan of Care Start Date 08/28/20 Plan of Care End Date 11/26/20 Therapeutic Interventions Therapeutic Interventions Aquatic Therapy,Balance Training,Gait Training,Home Exercise Program,Neuromuscular Re-education,Orthotic/ Prosthetic Management,Patient/ Caregiver Education,Self-Care/ Home Management,Taping, Therapeutic Activities, Therapeutic Exercises Modalities Cold Pack/Ice Massage,Hot Packs Next Visit Focus/Plan Next Note Type Treatment Note Next Visit Plan Continue PT per POC. Start with gait endurance (6 min walk test if prefer) to assess speed as we work toward community ambulation speed. Consider step-ups/downs onto 1 -2 height with cane only.
--- NOTE | 2020-11-18 12:02 | PT.OTN ---
Current Diagnoses Hemiplegia, unspecified affecting unspecified side (11/18/20) Difficulty in walking, not elsewhere classified (11/18/20) Weakness (11/18/20) History of falling (11/18/20) Physical Therapy Treatment Note PT-OP-A Visit Information Start: 05/28/19 08:11 Freq: Status: Active Protocol: Document 11/18/20 11:15 DCW (Rec: 11/18/20 12:01 DCW [id number]) Out-Patient Physical Therapy Visit Information Visit Information Visit Type Treatment Note Visit Start Time 11:15 Visit Stop Time 12:00 Total Visit Minutes 45 Visit Number 76 Number of FIRE SPRINKLER APPARATUS INSPECTOR Visits 0 Precautions Precautions Seizure disorder memory dysfunction PT-OP-B Current Condition Start: 05/28/19 08:11 Freq: Status: Active Protocol: Document 06/04/20 11:15 SAK (Rec: 06/05/20 16:34 SAK [id number]) Current Condition History of Current Condition Onset Date 2014 Current Complaints weakness, requires assistance with all mobility and household tasks History of Current Condition Reports that she suffered a stroke in 2014 after surgery for brain aneurysm. CVA caused weakness on the left side of her body, gait and balance difficulty, seizures. PT-OP-C Subjective Start: 05/28/19 08:11 Freq: Status: Active Protocol: Document 11/18/20 11:15 DCW (Rec: 11/18/20 12:01 DCW [id number]) OP-PT Subjective Patient Comments Patient Comments Pt reports she saw someone about her AFO yesterday, but they were not able to fix it, and recommended she go to a cobbler to adjust her shoe instead. ALso notes they noticed her Achilles was very tight, and recommended stretching. PT-OP-D Balance Start: 05/28/19 08:11 Freq: Status: Active Protocol: Document 05/29/19 14:30 SAK (Rec: 05/30/19 14:24 SAK [id number]) OP-PT Balance Assessment Sitting Balance Static Sitting Balance Ability Good Dynamic Sitting Balance Ability Fair Standing Balance Static Standing Balance Ability Good Dynamic Standing Balance Ability Fair Device Used [facility] right Tinetti Balance Assessment Sitting Balance Sitting Balance Steady, safe Arising from Chair Attempts to Arise Able, requires >1 attempt Standing Balance Immediate Standing Balance Steady with support Standing Balance Steady, wide stance Nudged Response Begins to fall Standing with Eyes Closed Unsteady Turning Step Pattern Turning 360 Degrees Discontinuous steps Stability Turning 360 Degrees Unsteady, grabs/staggers Sitting Down Sitting Down Uses arms or unsteady Gait and Step Initiation of Gait Hesitancy, mult. attempts Right Foot Step Length Does not pass stance ft. Right Foot Step Height Does not clear floor Left Foot Step Length Does not pass stance foot Left Foot Step Height Does not clear floor Step Description Step Symmetry Step length not equal Gait Description Path Description Mild/moderate deviation Trunk Description Marked sway or uses aide Walking Stance Heels apart Scoring and Interpretation Tinetti Composite Score (points) 6 Interpretation of Scores High risk for falls(< 19) Herrera Fall Scale Copyright Permission PT-OP-E Functional Tests Start: 05/28/19 08:11 Freq: Status: Active Protocol: Document 05/26/20 11:15 SAK (Rec: 05/26/20 17:04 [facility] [id number]) Functional Tests 2 Minute Walk Test Distance 39 ft Device Used single point cane Comments derotation application of level 4 theraband to decrease excess ER right LE PT-OP-G Mobility & Gait Start: 05/28/19 08:11 Freq: Status: Active Protocol: Document 05/26/20 11:15 SAK (Rec: 05/26/20 17:04 [facility] [id number]) OP Mobility Evaluation Bed Mobility Rolling min assist to right CGA to left Supine to and from Sit min assist to right CGA to left Transfers Sit to Stand CGA to min assist without UE use Bed to Chair Transfers requires use of right UE but able to do with SBA Floor Transfers unable PT-OP-H Neuro Start: 05/28/19 08:11 Freq: Status: Active Protocol: Document 05/29/19 14:30 SAK (Rec: 05/30/19 14:24 [facility] [id number]) Sensation Evaluation Gross Sensation Gross Sensation Left UE Impaired,Left LE Impaired Sensation Description Paresthesia,Numbness Coordination Evaluation Lower Extremity Tests Left Alternate Heel to Knee; Heel to Toe Test Moderate Impairment Heel on Boles Test Moderate Impairment Foot Tapping Test Moderate Impairment PT-OP-K Range of Motion Start: 05/28/19 08:11 Freq: Status: Active Protocol: Document 05/26/20 11:15 SAK (Rec: 05/26/20 17:04 [facility] [id number]) Hip Goniometric Range of Motion Hip jake Hip ROM WFL Yes Comments actively right LE, passively left LE Knee Goniometric Range of Motion Knee jake Knee ROM WFL Yes Ankle and Foot Goniometric Range of Motion Ankle and Foot Left Passive Ankle/Foot ROM WFL No Left Active Ankle/Foot ROM WFL No PT-OP-M Strength Start: 05/28/19 08:11 Freq: Status: Active Protocol: Document 05/26/20 11:15 SAK (Rec: 05/26/20 17:04 SAK [id number]) Hip Strength Hip Manual Muscle Testing Left Flexion (L2) 3- Fair- Extension (S1) 2 Poor Abduction 2+ Poor+ External Rotation 3- Fair- Internal Rotation 3+ Fair+ Right Flexion (L2) 4 Good Extension (S1) 4- Good- Abduction 4 Good External Rotation 3+ Fair+ Internal Rotation 4- Good- PT-OP-Q Treatments Start: 05/28/19 08:11 Freq: Status: Active Protocol: Document 11/18/20 11:15 DCW (Rec: 11/18/20 12:01 DCW [id number]) Cardio Equipment Recumbent Stepper (Sci-Fit) Duration (Minutes) 8 Resistance 2 Seat Position 11 Other 0.90 mi Gym Equipment Shuttle Recovery Unilateral Squats Resistance 37# R, 25# L Shuttle Recovery Platform Stable Reps/Time 2 x 10 Bilateral Squats Details bilateral squats w/ ball between knees, glut fac heel press Resistance 50# Reps/Time 2 x 10 reps; cues for LLE hip rotation Manual Therapy Treatment Soft Tissue Mobilization L calf Mobilization Type Cross-Friction,Myofascial Release,Sustained Pressure, Other Intensity/Depth Superficial Body Position Hooklying Comments also sustained pressure achilles or calf manual MWM PF /DF with good response decreased tension. Joint Mobilizations MTPs, talocrual mobs, rotation forefoot Joint L Direction PAs Grade II Body Position Hooklying Comments good feedback response Nerve Glides sciatic nerve glide Nerve L Body Position Hooklying Comments manual HS stretch then gentle MWM w/ PF/DF - good feedback response Manual Techniques 1 Type manual achilles tendon and HS stretchin Body Location L Body Position Hooklying Comments MWM w/ ankle pump PT-OP-R Modalities Start: 05/28/19 08:11 Freq: Status: Active Protocol: Document 03/19/20 10:31 SAK (Rec: 03/19/20 11:17 SAK [id number]) Electric Stimulation Electric Stimulation Functional Electric Stimulation Body Location left anterior tib Duration (Minutes) 10 Intensity 52 Contraction Type Normal Cycle 10/10 Ramp 2.0 Patient Position Sitting Comments [place] stim PT-OP-T Assessment and Plan Start: 05/28/19 08:11 Freq: Status: Active Protocol: Document 11/18/20 11:15 DCW (Rec: 11/18/20 12:01 DCW [id number]) Physical Therapy Assessment Goals Five Impairment gait speed not adequate for safe community ambulation Inner Diameter Grinder Tool Goal (LTG) Patient able to ambulate 300' in 6 min 06/02/20: 134' 08/28/20: 144', likely not as high due to new shoes and wearing old AFO because fits better in new shoes. Requires level 4 theraband for derotation of left LE into more neutral position for gait . 09/19/20: 146 ft 6 min w/ QC and Tb wrapping to LLE. 11/13/20: 153 ft CG w/ SPC 2>3 pt gait w/out metronome w/ reported L glut/ lateral leg burn pain, 2 step brief stand breaks. LTG Duration 11/25/20 Four Impairment requires assistance with bed mobility and transfers Short Term Goal (STG) Patient will be able to perform all bed mobility independently to improve her functional independence. 10/31/19: good goal progress 06/02/20:inconsistent, but min assist most times 08/28/20 STG Duration goal met Longterm Goal (LTG) Patient will be able to perform a floor transfer with SB to min assist 10/31/19: max assist today 01/02/20: has not been willing to try since 10/31/19 06/02/20: does not feel strong enough to try yet. 08/28/20: max assistance required LTG Duration 11/25/20 Three Impairment weakness left UE and LE s/p CVA Longterm Goal (LTG) Improve functional strength in left LE, as evidenced by ability to move from sit > < stand without use of UE's. 10/31/19: OT starts tomorrow. Good progress with sit to stand, though mostly using right UE and LE 01/02/20: Improving ability to perform, able to increase weight-bearing through left LE with cues, but still some use of right UE 05/26/20: With manual and visual feedback patient able to transfer sit to stand with only CG A. 08/28/20: inconsistent ability to move sit to stand without using UE's, but able to do transfer without physical assistance LTG Duration 11/25/20 Two Impairment balance dysfunction with high risk for falls Longterm Goal (LTG) Improve balance as evidenced by improvement in Tinnetti balance and gait score to low fall risk range to improve safety in the home and community. 10/31/19: remains high risk for falls 01/02/20: some improvement but still in high risk category 05/26/20: Tinetti score in high risk category 08/28/20: moderate risk for falls LTG Duration 11/25/20 One Impairment requires armaan-walker for gait, limited to household gait Inner Diameter Grinder Tool Goal (LTG) Patient able to ambulate with least restrictive device for functional community distances to improve her functional independence and quality of life. 10/30/19: no progress due to Covid 19. 11/02/19: able to ambulate with quad cane but with very slow speed, household distances, very short community distances . 05/26/20: Now able to ambulate with use of single point cane and use of L4 theraband wrapped around left LE to facilitate left LE internal rotation for improved alignment. Patient unable to don the theraband on her own. Gait is for short distances and very slow at 39 ft in 2 min. 08/28/20: has demonstrated improved gait ability, still using theraband for derotation of LE for more neutral position. Able to consistenly use quad cane and is increasing stride length especially with cues. Now able to ascend and descend 4 stairs with min assist using railing. Mod assist on 6 stairs. LTG Duration 11/25/20 Assessment Summary Assessment Pt tolerated treatment well today, was fairly tender with calf stretching and STM, but wanted to work through it, because she feels it will be beneficial. Physical Therapy Plan Frequency and Duration Frequency of Treatment 2x/Week Duration of Treatment 12 wks Plan of Care Start Date 08/28/20 Plan of Care End Date 11/26/20 Therapeutic Interventions Therapeutic Interventions Aquatic Therapy,Balance Training,Gait Training,Home Exercise Program,Neuromuscular Re-education,Orthotic/ Prosthetic Management,Patient/ Caregiver Education,Self-Care/ Home Management,Taping, Therapeutic Activities, Therapeutic Exercises Modalities Cold Pack/Ice Massage,Hot Packs Next Visit Focus/Plan Next Note Type Treatment Note Next Visit Plan Continue PT per POC. Start with gait endurance (6 min walk test if prefer) to assess speed as we work toward community ambulation speed. Consider step-ups/downs onto 1 -2 height with cane only.
--- NOTE | 2020-11-21 17:19 | PT.OTN ---
Current Diagnoses Hemiplegia, unspecified affecting unspecified side (11/21/20) Difficulty in walking, not elsewhere classified (11/21/20) Weakness (11/21/20) History of falling (11/21/20) Physical Therapy Treatment Note PT-OP-A Visit Information Start: 05/28/19 08:11 Freq: Status: Active Protocol: Document 11/21/20 11:22 MA (Rec: 11/21/20 12:13 MA [id number]) Out-Patient Physical Therapy Visit Information Visit Information Visit Type Treatment Note Visit Start Time 11:15 Visit Stop Time 11:55 Total Visit Minutes 40 Visit Number 77 Number of AVIONICS TECHNICIAN Visits 1 Precautions Precautions Seizure disorder memory dysfunction PT-OP-B Current Condition Start: 05/28/19 08:11 Freq: Status: Active Protocol: Document 06/04/20 11:15 SAK (Rec: 06/05/20 16:34 SAK [id number]) Current Condition History of Current Condition Onset Date 2014 Current Complaints weakness, requires assistance with all mobility and household tasks History of Current Condition Reports that she suffered a stroke in 2014 after surgery for brain aneurysm. CVA caused weakness on the left side of her body, gait and balance difficulty, seizures. PT-OP-C Subjective Start: 05/28/19 08:11 Freq: Status: Active Protocol: Document 11/21/20 11:22 MA (Rec: 11/21/20 12:13 MA [id number]) OP-PT Subjective Patient Comments Patient Comments Pt has been trying to stretch her achilles with her cane by hooking her foot and pulling toes back at home. PT-OP-D Balance Start: 05/28/19 08:11 Freq: Status: Active Protocol: Document 05/29/19 14:30 SAK (Rec: 05/30/19 14:24 SAK [id number]) OP-PT Balance Assessment Sitting Balance Static Sitting Balance Ability Good Dynamic Sitting Balance Ability Fair Standing Balance Static Standing Balance Ability Good Dynamic Standing Balance Ability Fair Device [facility] right Tinetti Balance Assessment Sitting Balance Sitting Balance Steady, safe Arising from Chair Attempts to Arise Able, requires >1 attempt Standing Balance Immediate Standing Balance Steady with support Standing Balance Steady, wide stance Nudged Response Begins to fall Standing with Eyes Closed Unsteady Turning Step Pattern Turning 360 Degrees Discontinuous steps Stability Turning 360 Degrees Unsteady, grabs/staggers Sitting Down Sitting Down Uses arms or unsteady Gait and Step Initiation of Gait Hesitancy, mult. attempts Right Foot Step Length Does not pass stance ft. Right Foot Step Height Does not clear floor Left Foot Step Length Does not pass stance foot Left Foot Step Height Does not clear floor Step Description Step Symmetry Step length not equal Gait Description Path Description Mild/moderate deviation Trunk Description Marked sway or uses aide Walking Stance Heels apart Scoring and Interpretation Tinetti Composite Score (points) 6 Interpretation of Scores High risk for falls(< 19) Herrera Fall Scale Copyright Permission PT-OP-E Functional Tests Start: 05/28/19 08:11 Freq: Status: Active Protocol: Document 05/26/20 11:15 [facility] (Rec: 05/26/20 17:04 [facility] [id number]) Functional Tests 2 Minute Walk Test Distance 39 ft Device Used single point cane Comments derotation application of level 4 theraband to decrease excess ER right LE PT-OP-G Mobility & Gait Start: 05/28/19 08:11 Freq: Status: Active Protocol: Document 05/26/20 11:15 [facility] (Rec: 05/26/20 17:04 [facility] [id number]) OP Mobility Evaluation Bed Mobility Rolling min assist to right CGA to left Supine to and from Sit min assist to right CGA to left Transfers Sit to Stand CGA to min assist without UE use Bed to Chair Transfers requires use of right UE but able to do with SBA Floor Transfers unable PT-OP-H Neuro Start: 05/28/19 08:11 Freq: Status: Active Protocol: Document 05/29/19 14:30 [facility] (Rec: 05/30/19 14:24 [facility] [id number]) Sensation Evaluation Gross Sensation Gross Sensation Left UE Impaired,Left LE Impaired Sensation Description Paresthesia,Numbness Coordination Evaluation Lower Extremity Tests Left Alternate Heel to Knee; Heel to Toe Test Moderate Impairment Heel on Boles Test Moderate Impairment Foot Tapping Test Moderate Impairment PT-OP-K Range of Motion Start: 05/28/19 08:11 Freq: Status: Active Protocol: Document 05/26/20 11:15 SAK (Rec: 05/26/20 17:04 [facility] [id number]) Hip Goniometric Range of Motion Hip jake Hip ROM WFL Yes Comments actively right LE, passively left LE Knee Goniometric Range of Motion Knee jake Knee ROM WFL Yes Ankle and Foot Goniometric Range of Motion Ankle and Foot Left Passive Ankle/Foot ROM WFL No Left Active Ankle/Foot ROM WFL No PT-OP-M Strength Start: 05/28/19 08:11 Freq: Status: Active Protocol: Document 05/26/20 11:15 SAK (Rec: 05/26/20 17:04 SAK [id number]) Hip Strength Hip Manual Muscle Testing Left Flexion (L2) 3- Fair- Extension (S1) 2 Poor Abduction 2+ Poor+ External Rotation 3- Fair- Internal Rotation 3+ Fair+ Right Flexion (L2) 4 Good Extension (S1) 4- Good- Abduction 4 Good External Rotation 3+ Fair+ Internal Rotation 4- Good- PT-OP-Q Treatments Start: 05/28/19 08:11 Freq: Status: Active Protocol: Document 11/21/20 11:22 MA (Rec: 11/21/20 12:13 MA [id number]) Cardio Equipment Recumbent Stepper (Sci-Fit) Duration (Minutes) 8 Resistance 2 Seat Position 11 Other 1.0 Gym Equipment Shuttle Recovery Unilateral Squats Resistance 37# R, 25# L Shuttle Recovery Platform Stable Reps/Time 2 x 10 Bilateral Squats Details bilateral squats w/ ball between knees, glut fac heel press Resistance 50# Reps/Time 2 x 10 reps; cues for LLE hip rotation Manual Therapy Treatment Soft Tissue Mobilization L calf Mobilization Type Cross-Friction,Myofascial Release,Sustained Pressure, Other Intensity/Depth Superficial Body Position Hooklying Comments also sustained pressure achilles or calf manual MWM PF /DF with good response decreased tension. Self-Care/Home Management Treatment Education Other Education Discussed rocker bottom shoe options with pt. Pt will try to get a rocker bottom cast shoe vs paying cobbler to cut her shoes to try if rocker bottom improves gait PT-OP-R Modalities Start: 05/28/19 08:11 Freq: Status: Active Protocol: Document 03/19/20 10:31 [facility] (Rec: 03/19/20 11:17 SAK [id number]) Electric Stimulation Electric Stimulation Functional Electric Stimulation Body Location left anterior tib Duration (Minutes) 10 Intensity 52 Contraction Type Normal Cycle 10/10 Ramp 2.0 Patient Position Sitting Comments Irish stim PT-OP-T Assessment and Plan Start: 05/28/19 08:11 Freq: Status: Active Protocol: Document 11/21/20 11:22 MA (Rec: 11/21/20 12:13 MA [id number]) Physical Therapy Assessment Goals Five Impairment gait speed not adequate for safe community ambulation Principal Systems Engineer Goal (LTG) Patient able to ambulate 300' in 6 min 06/02/20: 134' 08/28/20: 144', likely not as high due to new shoes and wearing old AFO because fits better in new shoes. Requires level 4 theraband for derotation of left LE into more neutral position for gait . 09/19/20: 146 ft 6 min w/ QC and Tb wrapping to LLE. 11/13/20: 153 ft CG w/ SPC 2>3 pt gait w/out metronome w/ reported L glut/ lateral leg burn pain, 2 step brief stand breaks. LTG Duration 11/25/20 Four Impairment requires assistance with bed mobility and transfers Short Term Goal (STG) Patient will be able to perform all bed mobility independently to improve her functional independence. 10/31/19: good goal progress 06/02/20:inconsistent, but min assist most times 08/28/20 STG Duration goal met Principal Systems Engineer Goal (LTG) Patient will be able to perform a floor transfer with SB to min assist 10/31/19: max assist today 01/02/20: has not been willing to try since 10/31/19 06/02/20: does not feel strong enough to try yet. 08/28/20: max assistance required LTG Duration 11/25/20 Three Impairment weakness left UE and LE s/p CVA Assisted Goal (LTG) Improve functional strength in left LE, as evidenced by ability to move from sit > < stand without use of UE's. 10/31/19: OT starts tomorrow. Good progress with sit to stand, though mostly using right UE and LE 01/02/20: Improving ability to perform, able to increase weight-bearing through left LE with cues, but still some use of right UE 05/26/20: With manual and visual feedback patient able to transfer sit to stand with only CG A. 08/28/20: inconsistent ability to move sit to stand without using UE's, but able to do transfer without physical assistance LTG Duration 11/25/20 Two Impairment balance dysfunction with high risk for falls Assisted Goal (LTG) Improve balance as evidenced by improvement in Tinnetti balance and gait score to low fall risk range to improve safety in the home and community. 10/31/19: remains high risk for falls 01/02/20: some improvement but still in high risk category 05/26/20: Tinetti score in high risk category 08/28/20: moderate risk for falls LTG Duration 11/25/20 One Impairment requires armaan-walker for gait, limited to household gait Assisted Goal (LTG) Patient able to ambulate with least restrictive device for functional community distances to improve her functional independence and quality of life. 10/30/19: no progress due to Covid 19. 11/02/19: able to ambulate with quad cane but with very slow speed, household distances, very short community distances . 05/26/20: Now able to ambulate with use of single point cane and use of L4 theraband wrapped around left LE to facilitate left LE internal rotation for improved alignment. Patient unable to don the theraband on her own. Gait is for short distances and very slow at 39 ft in 2 min. 08/28/20: has demonstrated improved gait ability, still using theraband for derotation of LE for more neutral position. Able to consistenly use quad cane and is increasing stride length especially with cues. Now able to ascend and descend 4 stairs with min assist using railing. Mod assist on 6 stairs. LTG Duration 11/25/20 Assessment Summary Assessment Pt arrives requesting STM to L gastroc per dr's request. Her dr discussed getting rocker bottom cobblered into her L shoe to help with gait. Spent time discussing how rocker bottom shoe may help with push off but will likely not help with snap back of knee due to increased quad activation. Pt will order a cast cover rocker bottom shoe to try out at therapy vs getting cobbler to alter shoe. Physical Therapy Plan Frequency and Duration Frequency of Treatment 2x/Week Duration of Treatment 12 wks Plan of Care Start Date 08/28/20 Plan of Care End Date 11/26/20 Therapeutic Interventions Therapeutic Interventions Aquatic Therapy,Balance Training,Gait Training,Home Exercise Program,Neuromuscular Re-education,Orthotic/ Prosthetic Management,Patient/ Caregiver Education,Self-Care/ Home Management,Taping, Therapeutic Activities, Therapeutic Exercises Modalities Cold Pack/Ice Massage,Hot Packs Next Visit Focus/Plan Next Note Type Treatment Note Next Visit Plan Continue PT per POC. Start with gait endurance (6 min walk test if prefer) to assess speed as we work toward community ambulation speed. Consider step-ups/downs onto 1 -2 height with cane only.
--- NOTE | 2020-11-24 13:03 | PT.OTN ---
Current Diagnoses Hemiplegia, unspecified affecting unspecified side (11/24/20) Difficulty in walking, not elsewhere classified (11/24/20) Weakness (11/24/20) History of falling (11/24/20) Physical Therapy Treatment Note PT-OP-A Visit Information Start: 05/28/19 08:11 Freq: Status: Active Protocol: Document 11/24/20 12:17 SP (Rec: 11/24/20 16:06 SP [id number]) Out-Patient Physical Therapy Visit Information Visit Information Visit Type Treatment Note Visit Note POC update next visit by PT. Visit Start Time 12:17 Visit Stop Time 13:03 Total Visit Minutes 46 Visit Number 78 Number of FINANCIAL OPERATIONS CLERK Visits 2 Precautions Precautions Seizure disorder memory dysfunction PT-OP-B Current Condition Start: 05/28/19 08:11 Freq: Status: Active Protocol: Document 06/04/20 11:15 SAK (Rec: 06/05/20 16:34 SAK [id number]) Current Condition History of Current Condition Onset Date 2014 Current Complaints weakness, requires assistance with all mobility and household tasks History of Current Condition Reports that she suffered a stroke in 2014 after surgery for brain aneurysm. CVA caused weakness on the left side of her body, gait and balance difficulty, seizures. PT-OP-C Subjective Start: 05/28/19 08:11 Freq: Status: Active Protocol: Document 11/24/20 12:17 SP (Rec: 11/24/20 16:06 SP [id number]) OP-PT Subjective Patient Comments Patient Comments Pt stated discussed with previous FINANCIAL OPERATIONS CLERK last tx, saw healthcare manager to assess LLE AFO and he wants to assess take off sole of sneaker and add a rocker to assist improveL knee flexion to decrease hyperextension. Pt is hesitant on completing and want to try out first somehow before making adjustment to her sneaker. Pt asked if PT or FINANCIAL OPERATIONS CLERK can call orthist to coordinate and see if can do something in PT first to assess if would be beneficial, knows would have to learn to walk all over again but is nervous about it throwing off her balance, is more confident w/ SPC. PT-OP-D Balance Start: 05/28/19 08:11 Freq: Status: Active Protocol: Document 05/29/19 14:30 SAK (Rec: 05/30/19 14:24 SAK [id number]) OP-PT Balance Assessment Sitting Balance Static Sitting Balance Ability Good Dynamic Sitting Balance Ability Fair Standing Balance Static Standing Balance Ability Good Dynamic Standing Balance Ability Fair Device Used hemiwalker right Tinetti Balance Assessment Sitting Balance Sitting Balance Steady, safe Arising from Chair Attempts to Arise Able, requires >1 attempt Standing Balance Immediate Standing Balance Steady with support Standing Balance Steady, wide stance Nudged Response Begins to fall Standing with Eyes Closed Unsteady Turning Step Pattern Turning 360 Degrees Discontinuous steps Stability Turning 360 Degrees Unsteady, grabs/staggers Sitting Down Sitting Down Uses arms or unsteady Gait and Step Initiation of Gait Hesitancy, mult. attempts Right Foot Step Length Does not pass stance ft. Right Foot Step Height Does not clear floor Left Foot Step Length Does not pass stance foot Left Foot Step Height Does not clear floor Step Description Step Symmetry Step length not equal Gait Description Path Description Mild/moderate deviation Trunk Description Marked sway or uses aide Walking Stance Heels apart Scoring and Interpretation Tinetti Composite Score (points) 6 Interpretation of Scores High risk for falls(< 19) Herrera Fall Scale Copyright Permission PT-OP-E Functional Tests Start: 05/28/19 08:11 Freq: Status: Active Protocol: Document 05/26/20 11:15 [facility] (Rec: 05/26/20 17:04 [facility] [id number]) Functional Tests 2 Minute Walk Test Distance 39 ft Device Used single point cane Comments derotation application of level 4 theraband to decrease excess ER right LE PT-OP-G Mobility & Gait Start: 05/28/19 08:11 Freq: Status: Active Protocol: Document 05/26/20 11:15 [facility] (Rec: 05/26/20 17:04 [facility] [id number]) OP Mobility Evaluation Bed Mobility Rolling min assist to right CGA to left Supine to and from Sit min assist to right CGA to left Transfers Sit to Stand CGA to min assist without UE use Bed to Chair Transfers requires use of right UE but able to do with SBA Floor Transfers unable PT-OP-H Neuro Start: 05/28/19 08:11 Freq: Status: Active Protocol: Document 05/29/19 14:30 [facility] (Rec: 05/30/19 14:24 [facility] [id number]) Sensation Evaluation Gross Sensation Gross Sensation Left UE Impaired,Left LE Impaired Sensation Description Paresthesia,Numbness Coordination Evaluation Lower Extremity Tests Left Alternate Heel to Knee; Heel to Toe Test Moderate Impairment Heel on Boles Test Moderate Impairment Foot Tapping Test Moderate Impairment PT-OP-K Range of Motion Start: 05/28/19 08:11 Freq: Status: Active Protocol: Document 05/26/20 11:15 SAK (Rec: 05/26/20 17:04 [facility] [id number]) Hip Goniometric Range of Motion Hip jake Hip ROM WFL Yes Comments actively right LE, passively left LE Knee Goniometric Range of Motion Knee jake Knee ROM WFL Yes Ankle and Foot Goniometric Range of Motion Ankle and Foot Left Passive Ankle/Foot ROM WFL No Left Active Ankle/Foot ROM WFL No PT-OP-M Strength Start: 05/28/19 08:11 Freq: Status: Active Protocol: Document 05/26/20 11:15 [facility] (Rec: 05/26/20 17:04 [facility] [id number]) Hip Strength Hip Manual Muscle Testing Left Flexion (L2) 3- Fair- Extension (S1) 2 Poor Abduction 2+ Poor+ External Rotation 3- Fair- Internal Rotation 3+ Fair+ Right Flexion (L2) 4 Good Extension (S1) 4- Good- Abduction 4 Good External Rotation 3+ Fair+ Internal Rotation 4- Good- PT-OP-Q Treatments Start: 05/28/19 08:11 Freq: Status: Active Protocol: Document 11/24/20 12:17 SP (Rec: 11/24/20 16:06 SP [id number]) Gym Equipment Shuttle Balance green Details balance, weight shift, movement of platform by pt, balloon volleyball Reps/Duration 8 min Comments cords loose CG- Roberto, Cued even wt BLE, (pt tends to wt shift into RLE more) Gait Training Gait Activity 6 min walk test Description 2 pt gait most of distance, then 3pt as tired Device Used SPC, Tb Blue wrapping Level of Assistance S> SBA as distance progressed Surface firim Distance/Duration 173.7 ft (improved 20 ft from last assessed) Treatment Focus speed and safety Comments did not use metronome today, requires cues for focus on task, less conversation but still gained more distance. Manual Therapy Treatment Soft Tissue Mobilization L calf Mobilization Type Cross-Friction,Myofascial Release,Sustained Pressure, Other Intensity/Depth Superficial Body Position Hooklying Comments also sustained pressure achilles or calf manual MWM PF /DF with good response decreased tension. piriformis Body Location left piriformis ( R sidelying) Mobilization Type Cross-Friction,Myofascial Release,Sustained Pressure Intensity/Depth Superficial Body Position Sidelying Comments sensitive to pressure, broad more tolerant. ITB, peroneal Body Location R ITB, R peroneal Mobilization Type Cross-Friction Intensity/Depth Moderate Body Position Sitting Comments good tolerance, it makes it feel less tight, much better. PT-OP-R Modalities Start: 05/28/19 08:11 Freq: Status: Active Protocol: Document 03/19/20 10:31 SAK (Rec: 03/19/20 11:17 SAK [id number]) Electric Stimulation Electric Stimulation Functional Electric Stimulation Body Location left anterior tib Duration (Minutes) 10 Intensity 52 Contraction Type Normal Cycle 10/10 Ramp 2.0 Patient Position Sitting Comments Ethiopian stim PT-OP-T Assessment and Plan Start: 05/28/19 08:11 Freq: Status: Active Protocol: Document 11/24/20 12:17 SP (Rec: 11/24/20 16:06 SP [id number]) Physical Therapy Assessment Goals Five Impairment gait speed not adequate for safe community ambulation Correction Goal (LTG) Patient able to ambulate 300' in 6 min 06/02/20: 134' 08/28/20: 144', likely not as high due to new shoes and wearing old AFO because fits better in new shoes. Requires level 4 theraband for derotation of left LE into more neutral position for gait . 09/19/20: 146 ft 6 min w/ QC and Tb wrapping to LLE. 11/13/20: 153 ft CG w/ SPC 2>3 pt gait w/out metronome w/ reported L glut/ lateral leg burn pain, 2 step brief stand breaks. 11/24/20: progressing 173.7 ft using SPC, predominently 2 pt gait. LTG Duration 11/25/20 (11/24/20: progressing) Four Impairment requires assistance with bed mobility and transfers Short Term Goal (STG) Patient will be able to perform all bed mobility independently to improve her functional independence. 10/31/19: good goal progress 06/02/20:inconsistent, but min assist most times 11/24/20: Met goal: pt is independent in supine>sit. STG Duration goal met ( independent 11/24/20 ) Correction Goal (LTG) Patient will be able to perform a floor transfer with SB to min assist 10/31/19: max assist today 01/02/20: has not been willing to try since 10/31/19 06/02/20: does not feel strong enough to try yet. 08/28/20: max assistance required LTG Duration 11/25/20 Three Impairment weakness left UE and LE s/p CVA Deblocker Goal (LTG) Improve functional strength in left LE, as evidenced by ability to move from sit > < stand without use of UE's. 10/31/19: OT starts tomorrow. Good progress with sit to stand, though mostly using right UE and LE 01/02/20: Improving ability to perform, able to increase weight-bearing through left LE with cues, but still some use of right UE 05/26/20: With manual and visual feedback patient able to transfer sit to stand with only CG A. 08/28/20: inconsistent ability to move sit to stand without using UE's, but able to do transfer without physical assistance 11/24/20: Goal Met: 5 STS in 20 sec without UE support LTG Duration 11/25/20 (Met Goal 11/24/20) Two Impairment balance dysfunction with high risk for falls Correction Goal (LTG) Improve balance as evidenced by improvement in Tinnetti balance and gait score to low fall risk range to improve safety in the home and community. 10/31/19: remains high risk for falls 01/02/20: some improvement but still in high risk category 05/26/20: Tinetti score in high risk category 08/28/20: moderate risk for falls LTG Duration 11/25/20 One Impairment requires armaan-walker for gait, limited to household gait Deblocker Goal (LTG) Patient able to ambulate with least restrictive device for functional community distances to improve her functional independence and quality of life. 10/30/19: no progress due to Covid 19. 11/02/19: able to ambulate with quad cane but with very slow speed, household distances, very short community distances . 05/26/20: Now able to ambulate with use of single point cane and use of L4 theraband wrapped around left LE to facilitate left LE internal rotation for improved alignment. Patient unable to don the theraband on her own. Gait is for short distances and very slow at 39 ft in 2 min. 08/28/20: has demonstrated improved gait ability, still using theraband for derotation of LE for more neutral position. Able to consistenly use quad cane and is increasing stride length especially with cues. Now able to ascend and descend 4 stairs with min assist using railing. Mod assist on 6 stairs. LTG Duration 11/25/20 Progress Towards Goals Progress Towards Goals Progressing Toward Goals Progress Comments Met STG goal #4 & #3. Pt improved 20 ft distance further during 6MWT. Pt I in bed mobility w/ weight of shoes and TB donned today. Assessment Summary Assessment Pt improved endurance during gait using SPC, 2<> 3pt gait. Pt required occasional cues for hip adduction and assist for L foot repositioning on [employer] bike, good strong effort during peddling. Physical Therapy Plan Frequency and Duration Frequency of Treatment 2x/Week Duration of Treatment 12 wks Plan of Care Start Date 08/28/20 Plan of Care End Date 11/26/20 Therapeutic Interventions Therapeutic Interventions Aquatic Therapy,Balance Training,Gait Training,Home Exercise Program,Neuromuscular Re-education,Orthotic/ Prosthetic Management,Patient/ Caregiver Education,Self-Care/ Home Management,Taping, Therapeutic Activities, Therapeutic Exercises Modalities Cold Pack/Ice Massage,Hot Packs Next Visit Focus/Plan Next Note Type Treatment Note Next Visit Plan Continue PT per POC. Start with gait endurance (6 min walk test if prefer) to assess speed as we work toward community ambulation speed. Consider step-ups/downs onto 1 -2 height with cane only.
--- NOTE | 2020-12-02 16:31 | PT.OTRE ---
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 Cervical somatic dysfunction Chronic constipation Chronic hip pain after total replacement of left hip joint Chronic neck pain Chronic neck pain Chronic neck pain with abnormal neurologic examination Chronic pain Chronic pain of left lower extremity Chronic pain of right lower extremity Chronic right hip pain Chronic right shoulder pain Chronic right-sided thoracic back pain Constipation Cranial somatic dysfunction Dominant hemiplegia complicating stroke Dry mouth, unspecified Dysphagia Elevated BP without diagnosis of hypertension Excessive vitamin B12 intake Family history of colon cancer Fatigue Foot drop, left Generalized anxiety disorder GERD (gastroesophageal reflux disease) Headache Hyperextension deformity of left knee Hypothyroidism Iliotibial band syndrome, left leg Irritable bowel syndrome Left hand weakness Left hemiplegia Left leg weakness Major depressive disorder Mass of right axilla Menorrhagia Mixed hyperlipidemia Neuropathic pain Obesity Obesity (BMI 35.0-39.9 without comorbidity) Pelvic somatic dysfunction Right wrist pain Seasonal allergies Segmental and somatic dysfunction of abdomen and other regions Segmental and somatic dysfunction of lumbar region Segmental and somatic dysfunction of rib cage Segmental and somatic dysfunction of sacral region Segmental and somatic dysfunction of thoracic region Seizure disorder Shortness of breath Sleep apnea in adult Stiff neck Stroke Throat disorder Vision changes Vision disorder Vitamin D deficiency Weight gain finding Surgical History (Last Reviewed 11/04/20 @ 13:30 by Tyrone Petty MD) Anesthesia Brain aneurysm (~03/25/15) De Quervain's syndrome (tenosynovitis) (~1996) Visit Care Team Role Provider Type KINJAL Cooper Attending Provider Advanced Leather Staker Primary Care Provider Specialty: Family Practice Address: [address] [place] [address], [id number] Email: [email or web address] Physical Therapy Re-Evaluation PT-OP-A Visit Information Start: 05/28/19 08:11 Freq: Status: Active Protocol: Document 12/02/20 11:18 [facility]AK (Rec: 12/02/20 12:18 SAK [id number]) Out-Patient Physical Therapy Visit Information Visit Information Visit Type Re-Evaluation Visit Start Time 11:15 Visit Stop Time 12:15 Total Visit Minutes 60 Visit Number 79 Number of SUPERVISOR [employer] Visits 0 PT-OP-B Current Condition Start: 05/28/19 08:11 Freq: Status: Active Protocol: Document 06/04/20 11:15 [facility] (Rec: 06/05/20 16:34 [facility] [id number]) Current Condition History of Current Condition Onset Date 2014 Current Complaints weakness, requires assistance with all mobility and household tasks History of Current Condition Reports that she suffered a stroke in 2014 after surgery for brain aneurysm. CVA caused weakness on the left side of her body, gait and balance difficulty, seizures. PT-OP-C Subjective Start: 05/28/19 08:11 Freq: Status: Active Protocol: Document 12/02/20 11:18 [facility] (Rec: 12/02/20 12:14 [facility] [id number]) OP-PT Subjective Patient Comments Patient Comments Requesting PT talk with batch dumper Santana at [facility] in [place] because they were company that made her brace, they didn't have old records. Not pleased with their recommendations. Caregiver able to do calf stretch, mother unable to. Getting regular bed back due to discomfort in hospital bed. Concern over AFO to big to allow other shoes, heel doesn' t fit. PT-OP-D Balance Start: 05/28/19 08:11 Freq: Status: Active Protocol: Document 05/29/19 14:30 [facility] (Rec: 05/30/19 14:24 [facility] [id number]) OP-PT Balance Assessment Sitting Balance Static Sitting Balance Ability Good Dynamic Sitting Balance Ability Fair Standing Balance Static Standing Balance Ability Good Dynamic Standing Balance Ability Fair Device Used [facility] right Tinetti Balance Assessment Sitting Balance Sitting Balance Steady, safe Arising from Chair Attempts to Arise Able, requires >1 attempt Standing Balance Immediate Standing Balance Steady with support Standing Balance Steady, wide stance Nudged Response Begins to fall Standing with Eyes Closed Unsteady Turning Step Pattern Turning 360 Degrees Discontinuous steps Stability Turning 360 Degrees Unsteady, grabs/staggers Sitting Down Sitting Down Uses arms or unsteady Gait and Step Initiation of Gait Hesitancy, mult. attempts Right Foot Step Length Does not pass stance ft. Right Foot Step Height Does not clear floor Left Foot Step Length Does not pass stance foot Left Foot Step Height Does not clear floor Step Description Step Symmetry Step length not equal Gait Description Path Description Mild/moderate deviation Trunk Description Marked sway or uses aide Walking Stance Heels apart Scoring and Interpretation Tinetti Composite Score (points) 6 Interpretation of Scores High risk for falls(< 19) Herrera Fall Scale Copyright Permission Javier LAUREANO, Javier RM, Baldev SJ. Development of a scale to identify the fall- prone patient. Can J Aging 1989;8;366-7. Fabian Herrera (2009). Preventing patient falls. (2nd ed). Cook: Bai. PT-OP-E Functional Tests Start: 05/28/19 08:11 Freq: Status: Active Protocol: Document 05/26/20 11:15 [facility] (Rec: 05/26/20 17:04 [facility] [id number]) Functional Tests 2 Minute Walk Test Distance 39 ft Device Used single point cane Comments derotation application of level 4 theraband to decrease excess ER right LE PT-OP-G Mobility & Gait Start: 05/28/19 08:11 Freq: Status: Active Protocol: Document 05/26/20 11:15 [facility] (Rec: 05/26/20 17:04 [facility] [id number]) OP Mobility Evaluation Bed Mobility Rolling min assist to right CGA to left Supine to and from Sit min assist to right CGA to left Transfers Sit to Stand CGA to min assist without UE use Bed to Chair Transfers requires use of right UE but able to do with SBA Floor Transfers unable PT-OP-H Neuro Start: 05/28/19 08:11 Freq: Status: Active Protocol: Document 05/29/19 14:30 [facility] (Rec: 05/30/19 14:24 [facility] [id number]) Sensation Evaluation Gross Sensation Gross Sensation Left UE Impaired,Left LE Impaired Sensation Description Paresthesia,Numbness Coordination Evaluation Lower Extremity Tests Left Alternate Heel to Knee; Heel to Toe Test Moderate Impairment Heel on Boles Test Moderate Impairment Foot Tapping Test Moderate Impairment PT-OP-K Range of Motion Start: 05/28/19 08:11 Freq: Status: Active Protocol: Document 05/26/20 11:15 [facility] (Rec: 05/26/20 17:04 [facility] [id number]) Hip Goniometric Range of Motion Hip Measured in Degrees jake Hip ROM WFL Yes Comments actively right LE, passively left LE Knee Goniometric Range of Motion Knee Measured in Degrees jake Knee ROM WFL Yes Ankle and Foot Goniometric Range of Motion Ankle and Foot Measured in Degrees Left Passive Ankle/Foot ROM WFL No Left Active Ankle/Foot ROM WFL No PT-OP-M Strength Start: 05/28/19 08:11 Freq: Status: Active Protocol: Document 05/26/20 11:15 [facility] (Rec: 05/26/20 17:04 [facility] [id number]) Hip Strength Hip Manual Muscle Testing Left Flexion (L2) 3- Fair- Extension (S1) 2 Poor Abduction 2+ Poor+ External Rotation 3- Fair- Internal Rotation 3+ Fair+ Right Flexion (L2) 4 Good Extension (S1) 4- Good- Abduction 4 Good External Rotation 3+ Fair+ Internal Rotation 4- Good- PT-OP-Q Treatments Start: 05/28/19 08:11 Freq: Status: Active Protocol: Document 12/02/20 11:18 [facility] (Rec: 12/02/20 12:18 [facility] [id number]) Cardio Equipment Recumbent Elliptical (BiodFidus Writer) Duration (Minutes) 10 Resistance 1 Other AFO on, 607 steps Therapeutic Exercises Sitting Exercises HS curl AROM Sitting Exercise Name with manual facilitation and resistance today Side left Reps/Minutes 2x10 HC stretch Side left Reps/Minutes 3 x 30 Comments manual, instructed caregiver Standing Exercises sit stands w/ AFO donned Standing Exercise Name no UEs Equipment Used 18 chair Reps/Minutes 5x with AFO, 5x without AFO using hands some Comments working on not twisting while sitting weight-shifting Standing Exercise Name side to side, front to back Equipment Used no AFO Reps/Minutes 5 min Comments mirror for visual feedback minisquats Standing Exercise Name squats Equipment Used 18 chair Reps/Minutes 10x Comments no AFO; mirror for visual feedback sit to stands Equipment Used AFO, no AFO Reps/Minutes 5x, 5x Comments manual cues for left LE alignment and L quad activation PT-OP-R Modalities Start: 05/28/19 08:11 Freq: Status: Active Protocol: Document 03/19/20 10:31 [facility] (Rec: 03/19/20 11:17 [facility] [id number]) Electric Stimulation Electric Stimulation Functional Electric Stimulation Body Location left anterior tib Duration (Minutes) 10 Intensity 52 Contraction Type Normal Cycle 10/10 Ramp 2.0 Patient Position Sitting Comments Christi caraballo PT-OP-T Assessment and Plan Start: 05/28/19 08:11 Freq: Status: Active Protocol: Document 12/02/20 11:18 [facility] (Rec: 12/02/20 12:14 [facility] [id number]) Physical Therapy Assessment Goals Five Impairment gait speed not adequate for safe community ambulation Mcc Goal (LTG) Patient able to ambulate 300' in 6 min 06/02/20: 134' 08/28/20: 144', likely not as high due to new shoes and wearing old AFO because fits better in new shoes. Requires level 4 theraband for derotation of left LE into more neutral position for gait . 09/19/20: 146 ft 6 min w/ QC and Tb wrapping to LLE. 11/13/20: 153 ft CG w/ SPC 2>3 pt gait w/out metronome w/ reported L glut/ lateral leg burn pain, 2 step brief stand breaks. 11/24/20: progressing 173.7 ft using SPC, predominently 2 pt gait. LTG Duration 01/31/21 Four Impairment requires assistance with bed mobility and transfers Short Term Goal (STG) Patient will be able to perform all bed mobility independently to improve her functional independence. 10/31/19: good goal progress 06/02/20:inconsistent, but min assist most times 11/24/20: Met goal: pt is independent in supine>sit. STG Duration goal met ( independent 11/24/20 ) Longshore Equipment Operator Goal (LTG) Patient will be able to perform a floor transfer with SB to min assist 10/31/19: max assist today 01/02/20: has not been willing to try since 10/31/19 06/02/20: does not feel strong enough to try yet. 08/28/20: max assistance required 12/02/20: remains at max assist , not recently willing to attempt LTG Duration 01/31/21 Three Impairment weakness left UE and LE s/p CVA Longshore Equipment Operator Goal (LTG) Improve functional strength in left LE, as evidenced by ability to move from sit > < stand without use of UE's. 10/31/19: OT starts tomorrow. Good progress with sit to stand, though mostly using right UE and LE 01/02/20: Improving ability to perform, able to increase weight-bearing through left LE with cues, but still some use of right UE 05/26/20: With manual and visual feedback patient able to transfer sit to stand with only CG A. 08/28/20: inconsistent ability to move sit to stand without using UE's, but able to do transfer without physical assistance 11/24/20: Goal Met: 5 STS in 20 sec without UE support LTG Duration 11/25/20 (Met Goal 11/24/20) Two Impairment balance dysfunction with high risk for falls Mcc Goal (LTG) Improve balance as evidenced by improvement in Tinnetti balance and gait score to low fall risk range to improve safety in the home and community. 10/31/19: remains high risk for falls 01/02/20: some improvement but still in high risk category 05/26/20: Tinetti score in high risk category 08/28/20: moderate risk for falls 12/02/20: remains in moderate risk for falls. LTG Duration 01/31/21 One Impairment requires armaan-walker for gait, limited to household gait Longshore Equipment Operator Goal (LTG) Patient able to ambulate with least restrictive device for functional community distances to improve her functional independence and quality of life. 10/30/19: no progress due to Covid 19. 11/02/19: able to ambulate with quad cane but with very slow speed, household distances, very short community distances . 05/26/20: Now able to ambulate with use of single point cane and use of L4 theraband wrapped around left LE to facilitate left LE internal rotation for improved alignment. Patient unable to don the theraband on her own. Gait is for short distances and very slow at 39 ft in 2 min. 08/28/20: has demonstrated improved gait ability, still using theraband for derotation of LE for more neutral position. Able to consistenly use quad cane and is increasing stride length especially with cues. Now able to ascend and descend 4 stairs with min assist using railing. Mod assist on 6 stairs. 12/02/20: Patient ambulating with SPC, mostly household but some community distances, improved gait alignment with use of theraband for improved alignment. Patient not consistently able to ambulate community distances due to pain in her left LE, and lack of neurological control left LE. Patient may benefit from modification to her current AFO or fabrication of new AFO. LTG Duration 01/31/21 Progress Towards Goals Progress Towards Goals Progressing Toward Goals Progress Comments Met STG goal #4 & #3. Pt improved 20 ft distance further during 6MWT. Pt I in bed mobility w/ weight of shoes and TB donned today. Has good potential for further improvement and is highly motivated. Assessment Summary Assessment Patient progress has been variable due to pain, soft tissue tightness, variability with caregivers, mental health issues, difficulty with fit and function of AFO. Patient reports she has been able to get scheduled to see a counselor again. As above improved distance with 6 min walk test, has improved bed mobility, and met goals #3 and #4. Recommend further skilled therapy to help patient fully meet her functional goals and return to more active and independent lifestyle. Physical Therapy Plan Frequency and Duration Frequency of Treatment 2x/Week Duration of Treatment 12 wks Plan of Care Start Date 12/02/20 Plan of Care End Date 01/31/21 Therapeutic Interventions Therapeutic Interventions Aquatic Therapy,Balance Training,Gait Training,Home Exercise Program,Neuromuscular Re-education,Orthotic/ Prosthetic Management,Patient/ Caregiver Education,Self-Care/ Home Management,Taping, Therapeutic Activities, Therapeutic Exercises Modalities Cold Pack/Ice Massage,Hot Packs Next Visit Focus/Plan Next Note Type Treatment Note Next Visit Plan Continue PT with emphasis on left LE functional strengthening and calf and ankle flexibility and facilitation of active movement, balance, gait training. Consult with patient's batch dumper to problem -solve brace issues. Manual therapy as indicated due to soft tissue tightness. Consider FES to ankle df again ; feel patient may benefit from home use as has unit for wrist.
--- NOTE | 2020-12-02 17:49 | PT.OTRE ---
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 Cervical somatic dysfunction Chronic constipation Chronic hip pain after total replacement of left hip joint Chronic neck pain Chronic neck pain Chronic neck pain with abnormal neurologic examination Chronic pain Chronic pain of left lower extremity Chronic pain of right lower extremity Chronic right hip pain Chronic right shoulder pain Chronic right-sided thoracic back pain Constipation Cranial somatic dysfunction Dominant hemiplegia complicating stroke Dry mouth, unspecified Dysphagia Elevated BP without diagnosis of hypertension Excessive vitamin B12 intake Family history of colon cancer Fatigue Foot drop, left Generalized anxiety disorder GERD (gastroesophageal reflux disease) Headache Hyperextension deformity of left knee Hypothyroidism Iliotibial band syndrome, left leg Irritable bowel syndrome Left hand weakness Left hemiplegia Left leg weakness Major depressive disorder Mass of right axilla Menorrhagia Mixed hyperlipidemia Neuropathic pain Obesity Obesity (BMI 35.0-39.9 without comorbidity) Pelvic somatic dysfunction Right wrist pain Seasonal allergies Segmental and somatic dysfunction of abdomen and other regions Segmental and somatic dysfunction of lumbar region Segmental and somatic dysfunction of rib cage Segmental and somatic dysfunction of sacral region Segmental and somatic dysfunction of thoracic region Seizure disorder Shortness of breath Sleep apnea in adult Stiff neck Stroke Throat disorder Vision changes Vision disorder Vitamin D deficiency Weight gain finding Surgical History (Last Reviewed 11/04/20 @ 13:30 by Tyrone Petty MD) Anesthesia Brain aneurysm (~03/25/15) De Quervain's syndrome (tenosynovitis) (~1996) Visit Care Team Role Provider Type KINJAL Cooper Attending Provider [employer] Sales Executive Primary Care Provider Specialty: Family Practice Address: [address] [place] [address], [id number] Email: [email or web address] Physical Therapy Re-Evaluation PT-OP-A Visit Information Start: 05/28/19 08:11 Freq: Status: Active Protocol: Document 12/02/20 11:18 [facility]AK (Rec: 12/02/20 12:18 [facility]AK [id number]) Out-Patient Physical Therapy Visit Information Visit Information Visit Type Re-Evaluation Visit Start Time 11:15 Visit Stop Time 12:15 Total Visit Minutes 60 Visit Number 79 Number of PROJECT DEVELOPMENT LEADER Visits 0 PT-OP-B Current Condition Start: 05/28/19 08:11 Freq: Status: Active Protocol: Document 06/04/20 11:15 [facility] (Rec: 06/05/20 16:34 [facility] [id number]) Current Condition History of Current Condition Onset Date 2014 Current Complaints weakness, requires assistance with all mobility and household tasks History of Current Condition Reports that she suffered a stroke in 2014 after surgery for brain aneurysm. CVA caused weakness on the left side of her body, gait and balance difficulty, seizures. PT-OP-C Subjective Start: 05/28/19 08:11 Freq: Status: Active Protocol: Document 12/02/20 11:18 [facility] (Rec: 12/02/20 12:14 [facility] [id number]) OP-PT Subjective Patient Comments Patient Comments Requesting PT talk with cottage attendant Santana at [facility] in [place] because they were company that made her brace, they didn't have old records. Not pleased with their recommendations. Caregiver able to do calf stretch, mother unable to. Getting regular bed back due to discomfort in hospital bed. Concern over AFO to big to allow other shoes, heel doesn' t fit. Wants to be able to walk better, pleased her 6 minute walk test score was better. PT-OP-D Balance Start: 05/28/19 08:11 Freq: Status: Active Protocol: Document 05/29/19 14:30 [facility] (Rec: 05/30/19 14:24 [facility] [id number]) OP-PT Balance Assessment Sitting Balance Static Sitting Balance Ability Good Dynamic Sitting Balance Ability Fair Standing Balance Static Standing Balance Ability Good Dynamic Standing Balance Ability Fair Device Used hemiwalker right Tinetti Balance Assessment Sitting Balance Sitting Balance Steady, safe Arising from Chair Attempts to Arise Able, requires >1 attempt Standing Balance Immediate Standing Balance Steady with support Standing Balance Steady, wide stance Nudged Response Begins to fall Standing with Eyes Closed Unsteady Turning Step Pattern Turning 360 Degrees Discontinuous steps Stability Turning 360 Degrees Unsteady, grabs/staggers Sitting Down Sitting Down Uses arms or unsteady Gait and Step Initiation of Gait Hesitancy, mult. attempts Right Foot Step Length Does not pass stance ft. Right Foot Step Height Does not clear floor Left Foot Step Length Does not pass stance foot Left Foot Step Height Does not clear floor Step Description Step Symmetry Step length not equal Gait Description Path Description Mild/moderate deviation Trunk Description Marked sway or uses aide Walking Stance Heels apart Scoring and Interpretation Tinetti Composite Score (points) 6 Interpretation of Scores High risk for falls(< 19) Herrera Fall Scale Copyright Permission Javier JM, Javier RM, Baldev SJ. Development of a scale to identify the fall- prone patient. Can J Aging 1989;8;366-7. Fabian Herrera (2009). Preventing patient falls. (2nd ed). [place]: Bai. PT-OP-E Functional Tests Start: 05/28/19 08:11 Freq: Status: Active Protocol: Document 05/26/20 11:15 [facility] (Rec: 05/26/20 17:04 [facility] [id number]) Functional Tests 2 Minute Walk Test Distance 39 ft Device Used single point cane Comments derotation application of level 4 theraband to decrease excess ER right LE PT-OP-G Mobility & Gait Start: 05/28/19 08:11 Freq: Status: Active Protocol: Document 05/26/20 11:15 [facility] (Rec: 05/26/20 17:04 [facility] [id number]) OP Mobility Evaluation Bed Mobility Rolling min assist to right CGA to left Supine to and from Sit min assist to right CGA to left Transfers Sit to Stand CGA to min assist without UE use Bed to Chair Transfers requires use of right UE but able to do with SBA Floor Transfers unable PT-OP-H Neuro Start: 05/28/19 08:11 Freq: Status: Active Protocol: Document 05/29/19 14:30 [facility] (Rec: 05/30/19 14:24 [facility] [id number]) Sensation Evaluation Gross Sensation Gross Sensation Left UE Impaired,Left LE Impaired Sensation Description Paresthesia,Numbness Coordination Evaluation Lower Extremity Tests Left Alternate Heel to Knee; Heel to Toe Test Moderate Impairment Heel on Boles Test Moderate Impairment Foot Tapping Test Moderate Impairment PT-OP-K Range of Motion Start: 05/28/19 08:11 Freq: Status: Active Protocol: Document 05/26/20 11:15 [facility] (Rec: 05/26/20 17:04 [facility] [id number]) Hip Goniometric Range of Motion Hip Measured in Degrees jake Hip ROM WFL Yes Comments actively right LE, passively left LE Knee Goniometric Range of Motion Knee Measured in Degrees jake Knee ROM WFL Yes Ankle and Foot Goniometric Range of Motion Ankle and Foot Measured in Degrees Left Passive Ankle/Foot ROM WFL No Left Active Ankle/Foot ROM WFL No PT-OP-M Strength Start: 05/28/19 08:11 Freq: Status: Active Protocol: Document 05/26/20 11:15 [facility] (Rec: 05/26/20 17:04 [facility] [id number]) Hip Strength Hip Manual Muscle Testing Left Flexion (L2) 3- Fair- Extension (S1) 2 Poor Abduction 2+ Poor+ External Rotation 3- Fair- Internal Rotation 3+ Fair+ Right Flexion (L2) 4 Good Extension (S1) 4- Good- Abduction 4 Good External Rotation 3+ Fair+ Internal Rotation 4- Good- PT-OP-Q Treatments Start: 05/28/19 08:11 Freq: Status: Active Protocol: Document 12/02/20 11:18 [facility] (Rec: 12/02/20 12:18 [facility] [id number]) Cardio Equipment Recumbent Elliptical ([employer]) Duration (Minutes) 10 Resistance 1 Other AFO on, 607 steps Therapeutic Exercises Sitting Exercises HS curl AROM Sitting Exercise Name with manual facilitation and resistance today Side left Reps/Minutes 2x10 HC stretch Side left Reps/Minutes 3 x 30 Comments manual, instructed caregiver Standing Exercises sit stands w/ AFO donned Standing Exercise Name no UEs Equipment Used 18 chair Reps/Minutes 5x with AFO, 5x without AFO using hands some Comments working on not twisting while sitting weight-shifting Standing Exercise Name side to side, front to back Equipment Used no AFO Reps/Minutes 5 min Comments mirror for visual feedback minisquats Standing Exercise Name squats Equipment Used 18 chair Reps/Minutes 10x Comments no AFO; mirror for visual feedback sit to stands Equipment Used AFO, no AFO Reps/Minutes 5x, 5x Comments manual cues for left LE alignment and L quad activation PT-OP-R Modalities Start: 05/28/19 08:11 Freq: Status: Active Protocol: Document 03/19/20 10:31 [facility] (Rec: 03/19/20 11:17 [facility] [id number]) Electric Stimulation Electric Stimulation Functional Electric Stimulation Body Location left anterior tib Duration (Minutes) 10 Intensity 52 Contraction Type Normal Cycle 10/10 Ramp 2.0 Patient Position Sitting Comments Syrian stim PT-OP-T Assessment and Plan Start: 05/28/19 08:11 Freq: Status: Active Protocol: Document 12/02/20 11:18 [facility] (Rec: 12/02/20 12:14 [facility] [id number]) Physical Therapy Assessment Goals Five Impairment gait speed not adequate for safe community ambulation Half-Way Goal (LTG) Patient able to ambulate 300' in 6 min. TUG score no greater than 30 sec 06/02/20: 134' 08/28/20: 144', likely not as high due to new shoes and wearing old AFO because fits better in new shoes. Requires level 4 theraband for derotation of left LE into more neutral position for gait . 09/19/20: 146 ft 6 min w/ QC and Tb wrapping to LLE. 11/13/20: 153 ft CG w/ SPC 2>3 pt gait w/out metronome w/ reported L glut/ lateral leg burn pain, 2 step brief stand breaks. 11/24/20: progressing 173.7 ft using SPC, predominently 2 pt gait. TUG score 59 sec using SPC LTG Duration 01/31/21 Four Impairment requires assistance with bed mobility and transfers Short Term Goal (STG) Patient will be able to perform all bed mobility independently to improve her functional independence. 10/31/19: good goal progress 06/02/20:inconsistent, but min assist most times 11/24/20: Met goal: pt is independent in supine>sit. STG Duration goal met ( independent 11/24/20 ) Hog Stomach Preparer Goal (LTG) Patient will be able to perform a floor transfer with SB to min assist. 5x sit to stand score in no more than 15 sec as measure of functional strength for transfers 10/31/19: max assist today 01/02/20: has not been willing to try since 10/31/19 06/02/20: does not feel strong enough to try yet. 08/28/20: max assistance required 12/02/20: remains at max assist , not recently willing to attempt floor transfer. 5x sit to stand score 26 seconds LTG Duration 01/31/21 Three Impairment weakness left UE and LE s/p CVA Half-Way Goal (LTG) Improve functional strength in left LE, as evidenced by ability to move from sit > < stand without use of UE's. 10/31/19: OT starts tomorrow. Good progress with sit to stand, though mostly using right UE and LE 01/02/20: Improving ability to perform, able to increase weight-bearing through left LE with cues, but still some use of right UE 05/26/20: With manual and visual feedback patient able to transfer sit to stand with only CG A. 08/28/20: inconsistent ability to move sit to stand without using UE's, but able to do transfer without physical assistance 11/24/20: Goal Met LTG Duration 11/25/20 (Met Goal 11/24/20) Two Impairment balance dysfunction with high risk for falls Hog Stomach Preparer Goal (LTG) Improve balance as evidenced by improvement in Tinnetti balance and gait score to low fall risk range to improve safety in the home and community. 10/31/19: remains high risk for falls 01/02/20: some improvement but still in high risk category 05/26/20: Tinetti score in high risk category 08/28/20: moderate risk for falls 12/02/20: remains in moderate risk for falls. LTG Duration 01/31/21 One Impairment requires armaan-walker for gait, limited to household gait Half-Way Goal (LTG) Patient able to ambulate with least restrictive device for functional community distances to improve her functional independence and quality of life. 10/30/19: no progress due to Covid 19. 11/02/19: able to ambulate with quad cane but with very slow speed, household distances, very short community distances . 05/26/20: Now able to ambulate with use of single point cane and use of L4 theraband wrapped around left LE to facilitate left LE internal rotation for improved alignment. Patient unable to don the theraband on her own. Gait is for short distances and very slow at 39 ft in 2 min. 08/28/20: has demonstrated improved gait ability, still using theraband for derotation of LE for more neutral position. Able to consistenly use quad cane and is increasing stride length especially with cues. Now able to ascend and descend 4 stairs with min assist using railing. Mod assist on 6 stairs. 12/02/20: Patient ambulating with SPC, mostly household but some community distances, improved gait alignment with use of theraband for improved alignment. Patient not consistently able to ambulate community distances due to pain in her left LE, and lack of neurological control left LE. Patient may benefit from modification to her current AFO or fabrication of new AFO. 173 ft in 6 minutes LTG Duration 01/31/21 Progress Towards Goals Progress Towards Goals Progressing Toward Goals Progress Comments Met STG goal #4 & #3. Pt improved 20 ft distance further during 6MWT. Pt I in bed mobility w/ weight of shoes and TB donned today. Has good potential for further improvement and is highly motivated. Assessment Summary Assessment Patient progress has been variable due to pain, soft tissue tightness, variability with caregivers and ability follow through with home program , mental health issues , difficulty with fit and function of AFO, . Patient reports she has been able to get scheduled to see a counselor again. As above improved distance with 6 min walk test, has improved bed mobility, and met goals #3 and #4. Recommend further skilled therapy to help patient fully meet her functional goals and return to more active and independent lifestyle. Help patient attain best AFO for her needs. Physical Therapy Plan Frequency and Duration Frequency of Treatment 2x/Week Duration of Treatment 12 wks Plan of Care Start Date 12/02/20 Plan of Care End Date 01/31/21 Therapeutic Interventions Therapeutic Interventions Aquatic Therapy,Balance Training,Gait Training,Home Exercise Program,Neuromuscular Re-education,Orthotic/ Prosthetic Management,Patient/ Caregiver Education,Self-Care/ Home Management,Taping, Therapeutic Activities, Therapeutic Exercises Modalities Cold Pack/Ice Massage,Hot Packs Next Visit Focus/Plan Next Note Type Treatment Note Next Visit Plan Continue PT with emphasis on left LE functional strengthening and calf and ankle flexibility and facilitation of active movement, balance, gait training. Consult with patient's cottage attendant to problem -solve brace issues. Manual therapy as indicated due to soft tissue tightness. Consider FES to ankle df again ; feel patient may benefit from home use as has unit for wrist.
--- NOTE | 2020-12-04 17:07 | PT.OTN ---
Current Diagnoses Hemiplegia, unspecified affecting unspecified side (12/04/20) Difficulty in walking, not elsewhere classified (12/04/20) Weakness (12/04/20) History of falling (12/04/20) Physical Therapy Treatment Note PT-OP-A Visit Information Start: 05/28/19 08:11 Freq: Status: Active Protocol: Document 12/04/20 16:47 SAK (Rec: 12/04/20 17:07 SAK [id number]) Out-Patient Physical Therapy Visit Information Visit Information Visit Type Treatment Note Visit Start Time 10:30 Visit Stop Time 11:17 Total Visit Minutes 47 Visit Number 80 Number of HISTOLOGIST TECHNOLOGIST Visits 0 PT-OP-B Current Condition Start: 05/28/19 08:11 Freq: Status: Active Protocol: Document 06/04/20 11:15 SAK (Rec: 06/05/20 16:34 SAK [id number]) Current Condition History of Current Condition Onset Date 2014 Current Complaints weakness, requires assistance with all mobility and household tasks History of Current Condition Reports that she suffered a stroke in 2014 after surgery for brain aneurysm. CVA caused weakness on the left side of her body, gait and balance difficulty, seizures. PT-OP-C Subjective Start: 05/28/19 08:11 Freq: Status: Active Protocol: Document 12/04/20 16:47 SAK (Rec: 12/04/20 17:07 SAK [id number]) OP-PT Subjective Patient Comments Patient Comments Patient brought contact info for front attendant into PT today. PT LVM 12/02/20, called too late today, will try again tomorrow. Patient frustrated by trying to keep all medical appointments scheduled, sees counselor today after PT. PT-OP-D Balance Start: 05/28/19 08:11 Freq: Status: Active Protocol: Document 05/29/19 14:30 SAK (Rec: 05/30/19 14:24 SAK [id number]) OP-PT Balance Assessment Sitting Balance Static Sitting Balance Ability Good Dynamic Sitting Balance Ability Fair Standing Balance Static Standing Balance Ability Good Dynamic Standing Balance Ability Fair Device Used hemiwalker right Tinetti Balance Assessment Sitting Balance Sitting Balance Steady, safe Arising from Chair Attempts to Arise Able, requires >1 attempt Standing Balance Immediate Standing Balance Steady with support Standing Balance Steady, wide stance Nudged Response Begins to fall Standing with Eyes Closed Unsteady Turning Step Pattern Turning 360 Degrees Discontinuous steps Stability Turning 360 Degrees Unsteady, grabs/staggers Sitting Down Sitting Down Uses arms or unsteady Gait and Step Initiation of Gait Hesitancy, mult. attempts Right Foot Step Length Does not pass stance ft. Right Foot Step Height Does not clear floor Left Foot Step Length Does not pass stance foot Left Foot Step Height Does not clear floor Step Description Step Symmetry Step length not equal Gait Description Path Description Mild/moderate deviation Trunk Description Marked sway or uses aide Walking Stance Heels apart Scoring and Interpretation Tinetti Composite Score (points) 6 Interpretation of Scores High risk for falls(< 19) Herrera Fall Scale Copyright Permission PT-OP-E Functional Tests Start: 05/28/19 08:11 Freq: Status: Active Protocol: Document 05/26/20 11:15 [facility] (Rec: 05/26/20 17:04 [facility] [id number]) Functional Tests 2 Minute Walk Test Distance 39 ft Device Used single point cane Comments derotation application of level 4 theraband to decrease excess ER right LE PT-OP-G Mobility & Gait Start: 05/28/19 08:11 Freq: Status: Active Protocol: Document 05/26/20 11:15 SAK (Rec: 05/26/20 17:04 [facility] [id number]) OP Mobility Evaluation Bed Mobility Rolling min assist to right CGA to left Supine to and from Sit min assist to right CGA to left Transfers Sit to Stand CGA to min assist without UE use Bed to Chair Transfers requires use of right UE but able to do with SBA Floor Transfers unable PT-OP-H Neuro Start: 05/28/19 08:11 Freq: Status: Active Protocol: Document 05/29/19 14:30 [facility] (Rec: 05/30/19 14:24 [facility] [id number]) Sensation Evaluation Gross Sensation Gross Sensation Left UE Impaired,Left LE Impaired Sensation Description Paresthesia,Numbness Coordination Evaluation Lower Extremity Tests Left Alternate Heel to Knee; Heel to Toe Test Moderate Impairment Heel on Boles Test Moderate Impairment Foot Tapping Test Moderate Impairment PT-OP-K Range of Motion Start: 05/28/19 08:11 Freq: Status: Active Protocol: Document 05/26/20 11:15 SAK (Rec: 05/26/20 17:04 [facility] [id number]) Hip Goniometric Range of Motion Hip jake Hip ROM WFL Yes Comments actively right LE, passively left LE Knee Goniometric Range of Motion Knee jake Knee ROM WFL Yes Ankle and Foot Goniometric Range of Motion Ankle and Foot Left Passive Ankle/Foot ROM WFL No Left Active Ankle/Foot ROM WFL No PT-OP-M Strength Start: 05/28/19 08:11 Freq: Status: Active Protocol: Document 05/26/20 11:15 [facility] (Rec: 05/26/20 17:04 [facility] [id number]) Hip Strength Hip Manual Muscle Testing Left Flexion (L2) 3- Fair- Extension (S1) 2 Poor Abduction 2+ Poor+ External Rotation 3- Fair- Internal Rotation 3+ Fair+ Right Flexion (L2) 4 Good Extension (S1) 4- Good- Abduction 4 Good External Rotation 3+ Fair+ Internal Rotation 4- Good- PT-OP-Q Treatments Start: 05/28/19 08:11 Freq: Status: Active Protocol: Document 12/04/20 16:47 [facility] (Rec: 12/04/20 17:07 [facility] [id number]) Cardio Equipment Recumbent Elliptical ([employer]) Duration (Minutes) 10 Resistance 1 Other no AFO Therapeutic Exercises Sitting Exercises hip ab/ad Resistance manual Comments knee extended HS curl AROM Sitting Exercise Name with manual facilitation and resistance today Side left Reps/Minutes 2x10 HC stretch Side left Reps/Minutes 3 x 30 Comments manual LAQ Reps/Minutes 10x Comments with manual resistance Standing Exercises weight-shifting Standing Exercise Name side to side, front to back Equipment Used no AFO Reps/Minutes 5 min Comments mirror for visual feedback minisquats Standing Exercise Name squats Equipment Used 18 chair Reps/Minutes 10x Comments no AFO; mirror for visual feedback sit to stands Equipment Used no AFO Reps/Minutes 5x Comments manual cues for left LE alignment and L quad activation Gait Training Gait Activity 6 min walk test Description 2 pt gait most of distance, then 3pt as tired Device Used SPC, Tb Blue wrapping Level of Assistance S> SBA as distance progressed Surface firm Distance/Duration 75' no TB, 75' with TB Treatment Focus speed and safety Comments did not use metronome today, requires cues for focus on task, increased weight shift left, increased step length right Neuro Re-Education Treatment Balance Activities standing balance Reps/Duration 4 min Comments no AFO, cues for soft knee, increased weight-shift left, minimal UE support PT-OP-R Modalities Start: 05/28/19 08:11 Freq: Status: Active Protocol: Document 03/19/20 10:31 SAK (Rec: 03/19/20 11:17 SAK [id number]) Electric Stimulation Electric Stimulation Functional Electric Stimulation Body Location left anterior tib Duration (Minutes) 10 Intensity 52 Contraction Type Normal Cycle 10/10 Ramp 2.0 Patient Position Sitting Comments Moz[place]ican stim PT-OP-T Assessment and Plan Start: 05/28/19 08:11 Freq: Status: Active Protocol: Document 12/04/20 16:47 SAK (Rec: 12/04/20 17:07 [facility] [id number]) Physical Therapy Assessment Goals Five Impairment gait speed not adequate for safe community ambulation [place] [facility] Goal (LTG) Patient able to ambulate 300' in 6 min. TUG score no greater than 30 sec 06/02/20: 134' 08/28/20: 144', likely not as high due to new shoes and wearing old AFO because fits better in new shoes. Requires level 4 theraband for derotation of left LE into more neutral position for gait . 09/19/20: 146 ft 6 min w/ QC and Tb wrapping to LLE. 11/13/20: 153 ft CG w/ SPC 2>3 pt gait w/out metronome w/ reported L glut/ lateral leg burn pain, 2 step brief stand breaks. 11/24/20: progressing 173.7 ft using SPC, predominently 2 pt gait. TUG score 59 sec using SPC LTG Duration 01/31/21 Four Impairment requires assistance with bed mobility and transfers Short Term Goal (STG) Patient will be able to perform all bed mobility independently to improve her functional independence. 10/31/19: good goal progress 06/02/20:inconsistent, but min assist most times 11/24/20: Met goal: pt is independent in supine>sit. STG Duration goal met ( independent 11/24/20 ) [place] [facility] Goal (LTG) Patient will be able to perform a floor transfer with SB to min assist. 5x sit to stand score in no more than 15 sec as measure of functional strength for transfers 10/31/19: max assist today 01/02/20: has not been willing to try since 10/31/19 06/02/20: does not feel strong enough to try yet. 08/28/20: max assistance required 12/02/20: remains at max assist , not recently willing to attempt floor transfer. 5x sit to stand score 26 seconds LTG Duration 01/31/21 Three Impairment weakness left UE and LE s/p CVA Correction Goal (LTG) Improve functional strength in left LE, as evidenced by ability to move from sit > < stand without use of UE's. 10/31/19: OT starts tomorrow. Good progress with sit to stand, though mostly using right UE and LE 01/02/20: Improving ability to perform, able to increase weight-bearing through left LE with cues, but still some use of right UE 05/26/20: With manual and visual feedback patient able to transfer sit to stand with only CG A. 08/28/20: inconsistent ability to move sit to stand without using UE's, but able to do transfer without physical assistance 11/24/20: Goal Met LTG Duration 11/25/20 (Met Goal 11/24/20) Two Impairment balance dysfunction with high risk for falls Correction Goal (LTG) Improve balance as evidenced by improvement in Tinnetti balance and gait score to low fall risk range to improve safety in the home and community. 10/31/19: remains high risk for falls 01/02/20: some improvement but still in high risk category 05/26/20: Tinetti score in high risk category 08/28/20: moderate risk for falls 12/02/20: remains in moderate risk for falls. LTG Duration 01/31/21 One Impairment requires armaan-walker for gait, limited to household gait [place] [facility] Goal (LTG) Patient able to ambulate with least restrictive device for functional community distances to improve her functional independence and quality of life. 10/30/19: no progress due to Covid 19. 11/02/19: able to ambulate with quad cane but with very slow speed, household distances, very short community distances . 05/26/20: Now able to ambulate with use of single point cane and use of L4 theraband wrapped around left LE to facilitate left LE internal rotation for improved alignment. Patient unable to don the theraband on her own. Gait is for short distances and very slow at 39 ft in 2 min. 08/28/20: has demonstrated improved gait ability, still using theraband for derotation of LE for more neutral position. Able to consistenly use quad cane and is increasing stride length especially with cues. Now able to ascend and descend 4 stairs with min assist using railing. Mod assist on 6 stairs. 12/02/20: Patient ambulating with SPC, mostly household but some community distances, improved gait alignment with use of theraband for improved alignment. Patient not consistently able to ambulate community distances due to pain in her left LE, and lack of neurological control left LE. Patient may benefit from modification to her current AFO or fabrication of new AFO. 173 ft in 6 minutes LTG Duration 01/31/21 Assessment Summary Assessment Patient reported pain and fatigue left ankle after ther ex without AFO today. PT has been unsuccessful in contacting patient front attendant yet to discuss options for patient, will try again tomorrow. Feel therapy needs to include ther ex without AFO to allow for more normal biomechanical movement at foot and ankle especially with squat and lunge activities to improve strength and stability as tolerated. Physical Therapy Plan Frequency and Duration Frequency of Treatment 2x/Week Duration of Treatment 12 wks Plan of Care Start Date 12/02/20 Plan of Care End Date 01/31/21 Therapeutic Interventions Therapeutic Interventions Aquatic Therapy,Balance Training,Gait Training,Home Exercise Program,Neuromuscular Re-education,Orthotic/ Prosthetic Management,Patient/ Caregiver Education,Self-Care/ Home Management,Taping, Therapeutic Activities, Therapeutic Exercises Modalities Cold Pack/Ice Massage,Hot Packs Next Visit Focus/Plan Next Note Type Treatment Note Next Visit Plan Continue PT with emphasis on left LE functional strengthening and calf and ankle flexibility and facilitation of active movement, balance, gait training. Consult with patient's front attendant to problem -solve brace issues. Manual therapy as indicated due to soft tissue tightness. Consider FES to ankle df again ; feel patient may benefit from home use as has unit for wrist.
--- NOTE | 2020-12-05 16:10 | PT-OP ANOTE ---
Patient gave permission to call the figure skater at [facility] regarding modification wanting to make to her shoe/AFO to asisist with gait. BARBARA Guevara, spoke with Santana Villalobos at [facility] at 1555 on 12/05/20 for approx 15 min. He talked with me regarding applying a tappered wedge to Sofi's L shoe to assist level out her L ankle contracture of 20deg plantarflexion and allow increased L knee flexion to decrease hyperextension. He stated the person that last molded her AFO didn't address allowance of increase DF just casted to get the most of DF could get at that time. His recommendation is to add a tapered wedge to the bottom of her AFO or shoe to improve DF and allow if not prevent hyperextension of L knee, currently he measured her at 10 deg hyperextension. I asked him to email me a drawing and or visual of some sort to help understand and explain to Sofi possible benefits what the figure skater could chief solution architect her gait. I (SERVICE CASHIER) asked why not a hinge ankle AFO to prevent further PF but encourage DF and or why not adding previous thigh attachment to prevent hyperextension that thought assist her in the past. Santana told me [place] didn't want that back on because it put to much pressure on her thigh. I was unsure if needed adjustment in padding, modify molding, due to never seen? SERVICE CASHIER will forward images to SERVICE CASHIER forwarded info to supervising PTs, will provide info received to [place] and scan in images to chart that Santana Villalobos at [facility] sends for all in awareness working with [place].
--- NOTE | 2020-12-08 13:08 | PT.OTN ---
Current Diagnoses Hemiplegia, unspecified affecting unspecified side (12/08/20) Difficulty in walking, not elsewhere classified (12/08/20) Weakness (12/08/20) History of falling (12/08/20) Physical Therapy Treatment Note PT-OP-A Visit Information Start: 05/28/19 08:11 Freq: Status: Active Protocol: Document 12/08/20 12:16 SP (Rec: 12/08/20 16:26 SP [id number]) Out-Patient Physical Therapy Visit Information Visit Information Visit Type Treatment Note Visit Note Caregiver left and stated pt's mom will be picking her up. Visit Start Time 12:16 Visit Stop Time 13:08 Total Visit Minutes 52 Visit Number 81 Number of JV [employer] Visits 1 Precautions Precautions Seizure disorder memory dysfunction PT-OP-B Current Condition Start: 05/28/19 08:11 Freq: Status: Active Protocol: Document 06/04/20 11:15 SAK (Rec: 06/05/20 16:34 SAK [id number]) Current Condition History of Current Condition Onset Date 2014 Current Complaints weakness, requires assistance with all mobility and household tasks History of Current Condition Reports that she suffered a stroke in 2014 after surgery for brain aneurysm. CVA caused weakness on the left side of her body, gait and balance difficulty, seizures. PT-OP-C Subjective Start: 05/28/19 08:11 Freq: Status: Active Protocol: Document 12/08/20 12:16 SP (Rec: 12/08/20 16:26 SP [id number]) OP-PT Subjective Patient Comments Patient Comments Pt arrived with caregiver. Pt stated her L calf and buttocks need to be stretched out and massaged today, in more pain. Pt stated thinks her L ankle still sore from all the good work did last tx without using AFO, would like to do more of the same with the left over time. Pt stated ordered a normal tricycle with basket on back and realized did have any where to store and didn't have any adatptions to help her use it so looking to figure how to sell it due to the company stated keep it and refunded most of her money. PT-OP-D Balance Start: 05/28/19 08:11 Freq: Status: Active Protocol: Document 05/29/19 14:30 SAK (Rec: 05/30/19 14:24 SAK [id number]) OP-PT Balance Assessment Sitting Balance Static Sitting Balance Ability Good Dynamic Sitting Balance Ability Fair Standing Balance Static Standing Balance Ability Good Dynamic Standing Balance Ability Fair Device Used hemiwalker right Tinetti Balance Assessment Sitting Balance Sitting Balance Steady, safe Arising from Chair Attempts to Arise Able, requires >1 attempt Standing Balance Immediate Standing Balance Steady with support Standing Balance Steady, wide stance Nudged Response Begins to fall Standing with Eyes Closed Unsteady Turning Step Pattern Turning 360 Degrees Discontinuous steps Stability Turning 360 Degrees Unsteady, grabs/staggers Sitting Down Sitting Down Uses arms or unsteady Gait and Step Initiation of Gait Hesitancy, mult. attempts Right Foot Step Length Does not pass stance ft. Right Foot Step Height Does not clear floor Left Foot Step Length Does not pass stance foot Left Foot Step Height Does not clear floor Step Description Step Symmetry Step length not equal Gait Description Path Description Mild/moderate deviation Trunk Description Marked sway or uses aide Walking Stance Heels apart Scoring and Interpretation Tinetti Composite Score (points) 6 Interpretation of Scores High risk for falls(< 19) Herrera Fall Scale Copyright Permission PT-OP-E Functional Tests Start: 05/28/19 08:11 Freq: Status: Active Protocol: Document 05/26/20 11:15 [facility] (Rec: 05/26/20 17:04 [facility] [id number]) Functional Tests 2 Minute Walk Test Distance 39 ft Device Used single point cane Comments derotation application of level 4 theraband to decrease excess ER right LE PT-OP-G Mobility & Gait Start: 05/28/19 08:11 Freq: Status: Active Protocol: Document 05/26/20 11:15 [facility] (Rec: 05/26/20 17:04 [facility] [id number]) OP Mobility Evaluation Bed Mobility Rolling min assist to right CGA to left Supine to and from Sit min assist to right CGA to left Transfers Sit to Stand CGA to min assist without UE use Bed to Chair Transfers requires use of right UE but able to do with SBA Floor Transfers unable PT-OP-H Neuro Start: 05/28/19 08:11 Freq: Status: Active Protocol: Document 05/29/19 14:30 [facility] (Rec: 05/30/19 14:24 [facility] [id number]) Sensation Evaluation Gross Sensation Gross Sensation Left UE Impaired,Left LE Impaired Sensation Description Paresthesia,Numbness Coordination Evaluation Lower Extremity Tests Left Alternate Heel to Knee; Heel to Toe Test Moderate Impairment Heel on Boles Test Moderate Impairment Foot Tapping Test Moderate Impairment PT-OP-K Range of Motion Start: 05/28/19 08:11 Freq: Status: Active Protocol: Document 05/26/20 11:15 SAK (Rec: 05/26/20 17:04 SAK [id number]) Hip Goniometric Range of Motion Hip jake Hip ROM WFL Yes Comments actively right LE, passively left LE Knee Goniometric Range of Motion Knee jake Knee ROM WFL Yes Ankle and Foot Goniometric Range of Motion Ankle and Foot Left Passive Ankle/Foot ROM WFL No Left Active Ankle/Foot ROM WFL No PT-OP-M Strength Start: 05/28/19 08:11 Freq: Status: Active Protocol: Document 05/26/20 11:15 SAK (Rec: 05/26/20 17:04 SAK [id number]) Hip Strength Hip Manual Muscle Testing Left Flexion (L2) 3- Fair- Extension (S1) 2 Poor Abduction 2+ Poor+ External Rotation 3- Fair- Internal Rotation 3+ Fair+ Right Flexion (L2) 4 Good Extension (S1) 4- Good- Abduction 4 Good External Rotation 3+ Fair+ Internal Rotation 4- Good- PT-OP-Q Treatments Start: 05/28/19 08:11 Freq: Status: Active Protocol: Document 12/08/20 12:16 SP (Rec: 12/08/20 16:26 SP [id number]) Therapeutic Exercises Supine Exercises SKFO Supine Exercise Name w/ increase knee flexion MWM Side left Resistance AROM Reps/Minutes 2x10 Comments good feedback response decrease R ankle tone of PF and IV. gastroc stretch Supine Exercise Name manual stretch calf Side left Equipment Used in supine on table Sitting Exercises LAQ Sitting Exercise Name flex, ext, IR, ER Side left Reps/Minutes 10x Comments with manual resistance Standing Exercises weight-shifting Standing Exercise Name side to side, front to back Equipment Used no AFO, SPC RUE at side table Reps/Minutes 5 min sit to stands Equipment Used no AFO Reps/Minutes 5x Comments manual cues for left LE alignment and L quad activation Gait Training Gait Activity gait w/ AD no wrapping Description no theraband Device Used SPC Level of Assistance SBA Surface stable Distance/Duration 100 x2 Treatment Focus L knee flexion, hip IR, wt shift to left, step-through gait Comments cued small step LLE, bigger step RLE: 2-3 pt gait Manual Therapy Treatment Soft Tissue Mobilization L calf Mobilization Type Cross-Friction,Myofascial Release,Sustained Pressure, Other Intensity/Depth Superficial Body Position Hooklying Comments also sustained pressure achilles or calf manual MWM PF /DF with good response decreased tension. piriformis Body Location left piriformis ( R sidelying) Mobilization Type Cross-Friction,Myofascial Release,Sustained Pressure Intensity/Depth Superficial Body Position Sidelying Comments sensitive to pressure, broad more tolerant. Joint Mobilizations MTPs, talocrual mobs, rotation forefoot Joint L Grade I Body Position Hooklying Comments good feedback response MWM support foot/ ankle in table L knee bent and pt performed SLFO ( Hip ER/ ER vs manual PAs), noted decrease plantar and inversion tone. PT-OP-R Modalities Start: 05/28/19 08:11 Freq: Status: Active Protocol: Document 03/19/20 10:31 SAK (Rec: 03/19/20 11:17 SAK [id number]) Electric Stimulation Electric Stimulation Functional Electric Stimulation Body Location left anterior tib Duration (Minutes) 10 Intensity 52 Contraction Type Normal Cycle 10/10 Ramp 2.0 Patient Position Sitting Comments [place] stim PT-OP-T Assessment and Plan Start: 05/28/19 08:11 Freq: Status: Active Protocol: Document 12/08/20 12:16 SP (Rec: 12/08/20 16:26 SP [id number]) Physical Therapy Assessment Goals Five Impairment gait speed not adequate for safe community ambulation Mcfp Goal (LTG) Patient able to ambulate 300' in 6 min. TUG score no greater than 30 sec 06/02/20: 134' 08/28/20: 144', likely not as high due to new shoes and wearing old AFO because fits better in new shoes. Requires level 4 theraband for derotation of left LE into more neutral position for gait . 09/19/20: 146 ft 6 min w/ QC and Tb wrapping to LLE. 11/13/20: 153 ft CG w/ SPC 2>3 pt gait w/out metronome w/ reported L glut/ lateral leg burn pain, 2 step brief stand breaks. 11/24/20: progressing 173.7 ft using SPC, predominently 2 pt gait. TUG score 59 sec using SPC LTG Duration 01/31/21 Four Impairment requires assistance with bed mobility and transfers Short Term Goal (STG) Patient will be able to perform all bed mobility independently to improve her functional independence. 10/31/19: good goal progress 06/02/20:inconsistent, but min assist most times 11/24/20: Met goal: pt is independent in supine>sit. STG Duration goal met ( independent 11/24/20 ) Mcfp Goal (LTG) Patient will be able to perform a floor transfer with SB to min assist. 5x sit to stand score in no more than 15 sec as measure of functional strength for transfers 10/31/19: max assist today 01/02/20: has not been willing to try since 10/31/19 06/02/20: does not feel strong enough to try yet. 08/28/20: max assistance required 12/02/20: remains at max assist , not recently willing to attempt floor transfer. 5x sit to stand score 26 seconds LTG Duration 01/31/21 Three Impairment weakness left UE and LE s/p CVA Cnc Operator Goal (LTG) Improve functional strength in left LE, as evidenced by ability to move from sit > < stand without use of UE's. 10/31/19: OT starts tomorrow. Good progress with sit to stand, though mostly using right UE and LE 01/02/20: Improving ability to perform, able to increase weight-bearing through left LE with cues, but still some use of right UE 05/26/20: With manual and visual feedback patient able to transfer sit to stand with only CG A. 08/28/20: inconsistent ability to move sit to stand without using UE's, but able to do transfer without physical assistance 11/24/20: Goal Met LTG Duration 11/25/20 (Met Goal 11/24/20) Two Impairment balance dysfunction with high risk for falls Cnc Operator Goal (LTG) Improve balance as evidenced by improvement in Tinnetti balance and gait score to low fall risk range to improve safety in the home and community. 10/31/19: remains high risk for falls 01/02/20: some improvement but still in high risk category 05/26/20: Tinetti score in high risk category 08/28/20: moderate risk for falls 12/02/20: remains in moderate risk for falls. LTG Duration 01/31/21 One Impairment requires armaan-walker for gait, limited to household gait Cnc Operator Goal (LTG) Patient able to ambulate with least restrictive device for functional community distances to improve her functional independence and quality of life. 10/30/19: no progress due to Covid 19. 11/02/19: able to ambulate with quad cane but with very slow speed, household distances, very short community distances . 05/26/20: Now able to ambulate with use of single point cane and use of L4 theraband wrapped around left LE to facilitate left LE internal rotation for improved alignment. Patient unable to don the theraband on her own. Gait is for short distances and very slow at 39 ft in 2 min. 08/28/20: has demonstrated improved gait ability, still using theraband for derotation of LE for more neutral position. Able to consistenly use quad cane and is increasing stride length especially with cues. Now able to ascend and descend 4 stairs with min assist using railing. Mod assist on 6 stairs. 12/02/20: Patient ambulating with SPC, mostly household but some community distances, improved gait alignment with use of theraband for improved alignment. Patient not consistently able to ambulate community distances due to pain in her left LE, and lack of neurological control left LE. Patient may benefit from modification to her current AFO or fabrication of new AFO. 173 ft in 6 minutes LTG Duration 01/31/21 Assessment Summary Assessment Pt reported big reduction in pain L pirformis and decreased L calf tightness. Pt challenged with wt shift at side table using SPC (more unsteady), required ant/ posterior L knee support and cues for allowing heel down to decrease foot IV and PF with contact and corrections. Pt is still uncertain if wants to allow the orthothist to make modifications to her L sneaker to assist decrease L knee hyperextension, and doesn;t have a spare to wear while he does modifications. Physical Therapy Plan Frequency and Duration Frequency of Treatment 2x/Week Duration of Treatment 12 wks Plan of Care Start Date 12/02/20 Plan of Care End Date 01/31/21 Therapeutic Interventions Therapeutic Interventions Aquatic Therapy,Balance Training,Gait Training,Home Exercise Program,Neuromuscular Re-education,Orthotic/ Prosthetic Management,Patient/ Caregiver Education,Self-Care/ Home Management,Taping, Therapeutic Activities, Therapeutic Exercises Modalities Cold Pack/Ice Massage,Hot Packs Next Visit Focus/Plan Next Note Type Treatment Note Next Visit Plan Continue PT with emphasis on left LE functional strengthening and calf and ankle flexibility and facilitation of active movement, balance, gait training. 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 Manual therapy as indicated due to soft tissue tightness. Consider FES to ankle df again ; feel patient may benefit from home use as has unit for wrist.
--- NOTE | 2020-12-19 12:23 | PT.OTN ---
Current Diagnoses Hemiplegia, unspecified affecting unspecified side (12/19/20) Difficulty in walking, not elsewhere classified (12/19/20) Weakness (12/19/20) History of falling (12/19/20) Physical Therapy Treatment Note PT-OP-A Visit Information Start: 05/28/19 08:11 Freq: Status: Active Protocol: Document 12/19/20 10:45 MA (Rec: 12/19/20 12:23 MA [id number]) Out-Patient Physical Therapy Visit Information Visit Information Visit Type Treatment Note Visit Start Time 10:30 Visit Stop Time 11:15 Total Visit Minutes 45 Visit Number 82 Number of RELATIONS LIAISON Visits 2 Precautions Precautions Seizure disorder memory dysfunction PT-OP-B Current Condition Start: 05/28/19 08:11 Freq: Status: Active Protocol: Document 06/04/20 11:15 SAK (Rec: 06/05/20 16:34 SAK [id number]) Current Condition History of Current Condition Onset Date 2014 Current Complaints weakness, requires assistance with all mobility and household tasks History of Current Condition Reports that she suffered a stroke in 2014 after surgery for brain aneurysm. CVA caused weakness on the left side of her body, gait and balance difficulty, seizures. PT-OP-C Subjective Start: 05/28/19 08:11 Freq: Status: Active Protocol: Document 12/19/20 10:45 MA (Rec: 12/19/20 12:23 MA [id number]) OP-PT Subjective Patient Comments Patient Comments Pt took her nerve medication this morning. Her doctor told her she can start taking it in the morning and night for her nerve pain PT-OP-D Balance Start: 05/28/19 08:11 Freq: Status: Active Protocol: Document 05/29/19 14:30 SAK (Rec: 05/30/19 14:24 SAK [id number]) OP-PT Balance Assessment Sitting Balance Static Sitting Balance Ability Good Dynamic Sitting Balance Ability Fair Standing Balance Static Standing Balance Ability Good Dynamic Standing Balance Ability Fair Device Used hemiwalker right Tinetti Balance Assessment Sitting Balance Sitting Balance Steady, safe Arising from Chair Attempts to Arise Able, requires >1 attempt Standing Balance Immediate Standing Balance Steady with support Standing Balance Steady, wide stance Nudged Response Begins to fall Standing with Eyes Closed Unsteady Turning Step Pattern Turning 360 Degrees Discontinuous steps Stability Turning 360 Degrees Unsteady, grabs/staggers Sitting Down Sitting Down Uses arms or unsteady Gait and Step Initiation of Gait Hesitancy, mult. attempts Right Foot Step Length Does not pass stance ft. Right Foot Step Height Does not clear floor Left Foot Step Length Does not pass stance foot Left Foot Step Height Does not clear floor Step Description Step Symmetry Step length not equal Gait Description Path Description Mild/moderate deviation Trunk Description Marked sway or uses aide Walking Stance Heels apart Scoring and Interpretation Tinetti Composite Score (points) 6 Interpretation of Scores High risk for falls(< 19) Herrera Fall Scale Copyright Permission PT-OP-E Functional Tests Start: 05/28/19 08:11 Freq: Status: Active Protocol: Document 05/26/20 11:15 [facility] (Rec: 05/26/20 17:04 [facility] [id number]) Functional Tests 2 Minute Walk Test Distance 39 ft Device Used single point cane Comments derotation application of level 4 theraband to decrease excess ER right LE PT-OP-G Mobility & Gait Start: 05/28/19 08:11 Freq: Status: Active Protocol: Document 05/26/20 11:15 [facility] (Rec: 05/26/20 17:04 [facility] [id number]) OP Mobility Evaluation Bed Mobility Rolling min assist to right CGA to left Supine to and from Sit min assist to right CGA to left Transfers Sit to Stand CGA to min assist without UE use Bed to Chair Transfers requires use of right UE but able to do with SBA Floor Transfers unable PT-OP-H Neuro Start: 05/28/19 08:11 Freq: Status: Active Protocol: Document 05/29/19 14:30 [facility] (Rec: 05/30/19 14:24 [facility] [id number]) Sensation Evaluation Gross Sensation Gross Sensation Left UE Impaired,Left LE Impaired Sensation Description Paresthesia,Numbness Coordination Evaluation Lower Extremity Tests Left Alternate Heel to Knee; Heel to Toe Test Moderate Impairment Heel on Boles Test Moderate Impairment Foot Tapping Test Moderate Impairment PT-OP-K Range of Motion Start: 05/28/19 08:11 Freq: Status: Active Protocol: Document 05/26/20 11:15 [facility] (Rec: 05/26/20 17:04 [facility] [id number]) Hip Goniometric Range of Motion Hip jake Hip ROM WFL Yes Comments actively right LE, passively left LE Knee Goniometric Range of Motion Knee jake Knee ROM WFL Yes Ankle and Foot Goniometric Range of Motion Ankle and Foot Left Passive Ankle/Foot ROM WFL No Left Active Ankle/Foot ROM WFL No PT-OP-M Strength Start: 05/28/19 08:11 Freq: Status: Active Protocol: Document 05/26/20 11:15 SAK (Rec: 05/26/20 17:04 [facility] [id number]) Hip Strength Hip Manual Muscle Testing Left Flexion (L2) 3- Fair- Extension (S1) 2 Poor Abduction 2+ Poor+ External Rotation 3- Fair- Internal Rotation 3+ Fair+ Right Flexion (L2) 4 Good Extension (S1) 4- Good- Abduction 4 Good External Rotation 3+ Fair+ Internal Rotation 4- Good- PT-OP-Q Treatments Start: 05/28/19 08:11 Freq: Status: Active Protocol: Document 12/19/20 10:45 MA (Rec: 12/19/20 12:23 MA [id number]) Cardio Equipment Recumbent Stepper (Sci-Fit) Duration (Minutes) 8 Resistance 2 Seat Position 5 Other 1.0 Therapeutic Exercises Standing Exercises weight-shifting Standing Exercise Name side to side, front to back Equipment Used no AFO, RUE on raised plinth Reps/Minutes 5 min Gait Training Gait Activity gait w/ AD no wrapping Description no theraband Device Used SPC Level of Assistance SBA Surface stable Distance/Duration 100 Treatment Focus L knee flexion, hip IR, wt shift to left, step-through gait Comments cued small step LLE, bigger step RLE: 2-3 pt gait Manual Therapy Treatment Soft Tissue Mobilization L calf Mobilization Type Cross-Friction,Myofascial Release,Sustained Pressure, Other Intensity/Depth Superficial Body Position Hooklying Comments also sustained pressure achilles or calf manual MWM PF /DF with good response decreased tension. PT-OP-R Modalities Start: 05/28/19 08:11 Freq: Status: Active Protocol: Document 03/19/20 10:31 SAK (Rec: 03/19/20 11:17 [facility] [id number]) Electric Stimulation Electric Stimulation Functional Electric Stimulation Body Location left anterior tib Duration (Minutes) 10 Intensity 52 Contraction Type Normal Cycle 10/10 Ramp 2.0 Patient Position Sitting Comments Mauritian stim PT-OP-T Assessment and Plan Start: 05/28/19 08:11 Freq: Status: Active Protocol: Document 12/19/20 10:45 MA (Rec: 12/19/20 12:23 MA [id number]) Physical Therapy Assessment Goals Five Impairment gait speed not adequate for safe community ambulation [facility] Goal (LTG) Patient able to ambulate 300' in 6 min. TUG score no greater than 30 sec 06/02/20: 134' 08/28/20: 144', likely not as high due to new shoes and wearing old AFO because fits better in new shoes. Requires level 4 theraband for derotation of left LE into more neutral position for gait . 09/19/20: 146 ft 6 min w/ QC and Tb wrapping to LLE. 11/13/20: 153 ft CG w/ SPC 2>3 pt gait w/out metronome w/ reported L glut/ lateral leg burn pain, 2 step brief stand breaks. 11/24/20: progressing 173.7 ft using SPC, predominently 2 pt gait. TUG score 59 sec using SPC LTG Duration 01/31/21 Four Impairment requires assistance with bed mobility and transfers Short Term Goal (STG) Patient will be able to perform all bed mobility independently to improve her functional independence. 10/31/19: good goal progress 06/02/20:inconsistent, but min assist most times 11/24/20: Met goal: pt is independent in supine>sit. STG Duration goal met ( independent 11/24/20 ) [facility] Goal (LTG) Patient will be able to perform a floor transfer with SB to min assist. 5x sit to stand score in no more than 15 sec as measure of functional strength for transfers 10/31/19: max assist today 01/02/20: has not been willing to try since 10/31/19 06/02/20: does not feel strong enough to try yet. 08/28/20: max assistance required 12/02/20: remains at max assist , not recently willing to attempt floor transfer. 5x sit to stand score 26 seconds LTG Duration 01/31/21 Three Impairment weakness left UE and LE s/p CVA Relationship Assoc Goal (LTG) Improve functional strength in left LE, as evidenced by ability to move from sit > < stand without use of UE's. 10/31/19: OT starts tomorrow. Good progress with sit to stand, though mostly using right UE and LE 01/02/20: Improving ability to perform, able to increase weight-bearing through left LE with cues, but still some use of right UE 05/26/20: With manual and visual feedback patient able to transfer sit to stand with only CG A. 08/28/20: inconsistent ability to move sit to stand without using UE's, but able to do transfer without physical assistance 11/24/20: Goal Met LTG Duration 11/25/20 (Met Goal 11/24/20) Two Impairment balance dysfunction with high risk for falls Relationship Assoc Goal (LTG) Improve balance as evidenced by improvement in Tinnetti balance and gait score to low fall risk range to improve safety in the home and community. 10/31/19: remains high risk for falls 01/02/20: some improvement but still in high risk category 05/26/20: Tinetti score in high risk category 08/28/20: moderate risk for falls 12/02/20: remains in moderate risk for falls. LTG Duration 01/31/21 One Impairment requires armaan-walker for gait, limited to household gait Relationship Assoc Goal (LTG) Patient able to ambulate with least restrictive device for functional community distances to improve her functional independence and quality of life. 10/30/19: no progress due to Covid 19. 11/02/19: able to ambulate with quad cane but with very slow speed, household distances, very short community distances . 05/26/20: Now able to ambulate with use of single point cane and use of L4 theraband wrapped around left LE to facilitate left LE internal rotation for improved alignment. Patient unable to don the theraband on her own. Gait is for short distances and very slow at 39 ft in 2 min. 08/28/20: has demonstrated improved gait ability, still using theraband for derotation of LE for more neutral position. Able to consistenly use quad cane and is increasing stride length especially with cues. Now able to ascend and descend 4 stairs with min assist using railing. Mod assist on 6 stairs. 12/02/20: Patient ambulating with SPC, mostly household but some community distances, improved gait alignment with use of theraband for improved alignment. Patient not consistently able to ambulate community distances due to pain in her left LE, and lack of neurological control left LE. Patient may benefit from modification to her current AFO or fabrication of new AFO. 173 ft in 6 minutes LTG Duration 01/31/21 Assessment Summary Assessment Pt reports less pain in piriformis but increased L nerve pain and calf tightness today. Her doctor told her to start taking medication for nerve pain in the AM and PM with pt starting moring meds today. Medication sometimes makes pt tired and dizzy. Pt had some dizziness while walking to plinth during today 's session that improved after seated rest break. Pt is improving with self-correcting L knee extension, avoiding snap back during weight shifts. Had pt try weight shifts with LLE fwd in staggered stance with pt showing good form and she is able to perform safely. encouraged pt to continue working on weight shifts at home holding stable surface vs cane since she feels she is too nervous to weight shift alone with only cane. [place] was able to complete 1 mile on stepper in 8 min 30 sec today vs usual ~10 min and can correct ER of LLE ~50% of the time without physical assistance. Physical Therapy Plan Frequency and Duration Frequency of Treatment 2x/Week Duration of Treatment 12 wks Plan of Care Start Date 12/02/20 Plan of Care End Date 01/31/21 Therapeutic Interventions Therapeutic Interventions Aquatic Therapy,Balance Training,Gait Training,Home Exercise Program,Neuromuscular Re-education,Orthotic/ Prosthetic Management,Patient/ Caregiver Education,Self-Care/ Home Management,Taping, Therapeutic Activities, Therapeutic Exercises Modalities Cold Pack/Ice Massage,Hot Packs Next Visit Focus/Plan Next Note Type Treatment Note Next Visit Plan Continue PT with emphasis on left LE functional strengthening and calf and ankle flexibility and facilitation of active movement, balance, gait training. 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 Manual therapy as indicated due to soft tissue tightness. Consider FES to ankle df again ; feel patient may benefit from home use as has unit for wrist.
--- NOTE | 2020-12-25 12:33 | PT.OTN ---
Current Diagnoses Hemiplegia, unspecified affecting unspecified side (12/25/20) Difficulty in walking, not elsewhere classified (12/25/20) Weakness (12/25/20) History of falling (12/25/20) Physical Therapy Treatment Note PT-OP-A Visit Information Start: 05/28/19 08:11 Freq: Status: Active Protocol: Document 12/25/20 10:35 AW (Rec: 12/25/20 10:41 AW [id number]) Out-Patient Physical Therapy Visit Information Visit Information Visit Type Treatment Note Visit Start Time 09:45 Visit Stop Time 10:35 Total Visit Minutes 50 Visit Number 83 Number of SURGICAL SUPERVISOR Visits 0 Precautions Precautions Seizure disorder memory dysfunction PT-OP-B Current Condition Start: 05/28/19 08:11 Freq: Status: Active Protocol: Document 06/04/20 11:15 SAK (Rec: 06/05/20 16:34 SAK [id number]) Current Condition History of Current Condition Onset Date 2014 Current Complaints weakness, requires assistance with all mobility and household tasks History of Current Condition Reports that she suffered a stroke in 2014 after surgery for brain aneurysm. CVA caused weakness on the left side of her body, gait and balance difficulty, seizures. PT-OP-C Subjective Start: 05/28/19 08:11 Freq: Status: Active Protocol: Document 12/25/20 10:35 AW (Rec: 12/25/20 10:41 AW [id number]) OP-PT Subjective Patient Comments Patient Comments I just feel so deconditioned. PT-OP-D Balance Start: 05/28/19 08:11 Freq: Status: Active Protocol: Document 05/29/19 14:30 SAK (Rec: 05/30/19 14:24 SAK [id number]) OP-PT Balance Assessment Sitting Balance Static Sitting Balance Ability Good Dynamic Sitting Balance Ability Fair Standing Balance Static Standing Balance Ability Good Dynamic Standing Balance Ability Fair Device Used hemiwalker right Tinetti Balance Assessment Sitting Balance Sitting Balance Steady, safe Arising from Chair Attempts to Arise Able, requires >1 attempt Standing Balance Immediate Standing Balance Steady with support Standing Balance Steady, wide stance Nudged Response Begins to fall Standing with Eyes Closed Unsteady Turning Step Pattern Turning 360 Degrees Discontinuous steps Stability Turning 360 Degrees Unsteady, grabs/staggers Sitting Down Sitting Down Uses arms or unsteady Gait and Step Initiation of Gait Hesitancy, mult. attempts Right Foot Step Length Does not pass stance ft. Right Foot Step Height Does not clear floor Left Foot Step Length Does not pass stance foot Left Foot Step Height Does not clear floor Step Description Step Symmetry Step length not equal Gait Description Path Description Mild/moderate deviation Trunk Description Marked sway or uses aide Walking Stance Heels apart Scoring and Interpretation Tinetti Composite Score (points) 6 Interpretation of Scores High risk for falls(< 19) Herrera Fall Scale Copyright Permission PT-OP-E Functional Tests Start: 05/28/19 08:11 Freq: Status: Active Protocol: Document 05/26/20 11:15 SAK (Rec: 05/26/20 17:04 [facility] [id number]) Functional Tests 2 Minute Walk Test Distance 39 ft Device Used single point cane Comments derotation application of level 4 theraband to decrease excess ER right LE PT-OP-G Mobility & Gait Start: 05/28/19 08:11 Freq: Status: Active Protocol: Document 05/26/20 11:15 SAK (Rec: 05/26/20 17:04 [facility] [id number]) OP Mobility Evaluation Bed Mobility Rolling min assist to right CGA to left Supine to and from Sit min assist to right CGA to left Transfers Sit to Stand CGA to min assist without UE use Bed to Chair Transfers requires use of right UE but able to do with SBA Floor Transfers unable PT-OP-H Neuro Start: 05/28/19 08:11 Freq: Status: Active Protocol: Document 05/29/19 14:30 [facility] (Rec: 05/30/19 14:24 [facility] [id number]) Sensation Evaluation Gross Sensation Gross Sensation Left UE Impaired,Left LE Impaired Sensation Description Paresthesia,Numbness Coordination Evaluation Lower Extremity Tests Left Alternate Heel to Knee; Heel to Toe Test Moderate Impairment Heel on Boles Test Moderate Impairment Foot Tapping Test Moderate Impairment PT-OP-K Range of Motion Start: 05/28/19 08:11 Freq: Status: Active Protocol: Document 05/26/20 11:15 SAK (Rec: 05/26/20 17:04 [facility] [id number]) Hip Goniometric Range of Motion Hip jake Hip ROM WFL Yes Comments actively right LE, passively left LE Knee Goniometric Range of Motion Knee jake Knee ROM WFL Yes Ankle and Foot Goniometric Range of Motion Ankle and Foot Left Passive Ankle/Foot ROM WFL No Left Active Ankle/Foot ROM WFL No PT-OP-M Strength Start: 05/28/19 08:11 Freq: Status: Active Protocol: Document 05/26/20 11:15 SAK (Rec: 05/26/20 17:04 SAK [id number]) Hip Strength Hip Manual Muscle Testing Left Flexion (L2) 3- Fair- Extension (S1) 2 Poor Abduction 2+ Poor+ External Rotation 3- Fair- Internal Rotation 3+ Fair+ Right Flexion (L2) 4 Good Extension (S1) 4- Good- Abduction 4 Good External Rotation 3+ Fair+ Internal Rotation 4- Good- PT-OP-Q Treatments Start: 05/28/19 08:11 Freq: Status: Active Protocol: Document 12/25/20 10:35 AW (Rec: 12/25/20 10:41 AW [id number]) Cardio Equipment Recumbent Stepper (Sci-Fit) Duration (Minutes) 8 Resistance 2 Seat Position 7 Other 1.0 Therapeutic Exercises Standing Exercises weight-shifting Standing Exercise Name side to side, front to back Equipment Used no AFO, RUE on raised plinth Reps/Minutes 10 min Comments manual facilitation for left knee stability Gait Training Gait Activity gait w/ AD no wrapping Description no theraband Device Used SPC Level of Assistance SBA Surface stable Distance/Duration 100, 200 Treatment Focus L knee flexion, hip IR, wt shift to left, step-through gait Comments cued small step LLE, bigger step RLE: 2-3 pt gait Manual Therapy Treatment Soft Tissue Mobilization L calf Mobilization Type Cross-Friction,Myofascial Release,Sustained Pressure, Other Intensity/Depth Superficial Body Position Hooklying Comments also sustained pressure achilles or calf manual MWM PF /DF with good response decreased tension. PT-OP-R Modalities Start: 05/28/19 08:11 Freq: Status: Active Protocol: Document 03/19/20 10:31 SAK (Rec: 03/19/20 11:17 SAK [id number]) Electric Stimulation Electric Stimulation Functional Electric Stimulation Body Location left anterior tib Duration (Minutes) 10 Intensity 52 Contraction Type Normal Cycle 10/10 Ramp 2.0 Patient Position Sitting Comments [place] stim PT-OP-T Assessment and Plan Start: 05/28/19 08:11 Freq: Status: Active Protocol: Document 12/25/20 10:35 AW (Rec: 12/25/20 12:33 AW [id number]) Physical Therapy Assessment Goals Five Impairment gait speed not adequate for safe community ambulation Physician Relations Specialist Goal (LTG) Patient able to ambulate 300' in 6 min. TUG score no greater than 30 sec 06/02/20: 134' 08/28/20: 144', likely not as high due to new shoes and wearing old AFO because fits better in new shoes. Requires level 4 theraband for derotation of left LE into more neutral position for gait . 09/19/20: 146 ft 6 min w/ QC and Tb wrapping to LLE. 11/13/20: 153 ft CG w/ SPC 2>3 pt gait w/out metronome w/ reported L glut/ lateral leg burn pain, 2 step brief stand breaks. 11/24/20: progressing 173.7 ft using SPC, predominently 2 pt gait. TUG score 59 sec using SPC LTG Duration 01/31/21 Four Impairment requires assistance with bed mobility and transfers Short Term Goal (STG) Patient will be able to perform all bed mobility independently to improve her functional independence. 10/31/19: good goal progress 06/02/20:inconsistent, but min assist most times 11/24/20: Met goal: pt is independent in supine>sit. STG Duration goal met ( independent 11/24/20 ) Shelter Goal (LTG) Patient will be able to perform a floor transfer with SB to min assist. 5x sit to stand score in no more than 15 sec as measure of functional strength for transfers 10/31/19: max assist today 01/02/20: has not been willing to try since 10/31/19 06/02/20: does not feel strong enough to try yet. 08/28/20: max assistance required 12/02/20: remains at max assist , not recently willing to attempt floor transfer. 5x sit to stand score 26 seconds LTG Duration 01/31/21 Three Impairment weakness left UE and LE s/p CVA Shelter Goal (LTG) Improve functional strength in left LE, as evidenced by ability to move from sit > < stand without use of UE's. 10/31/19: OT starts tomorrow. Good progress with sit to stand, though mostly using right UE and LE 01/02/20: Improving ability to perform, able to increase weight-bearing through left LE with cues, but still some use of right UE 05/26/20: With manual and visual feedback patient able to transfer sit to stand with only CG A. 08/28/20: inconsistent ability to move sit to stand without using UE's, but able to do transfer without physical assistance 11/24/20: Goal Met LTG Duration 11/25/20 (Met Goal 11/24/20) Two Impairment balance dysfunction with high risk for falls Physician Relations Specialist Goal (LTG) Improve balance as evidenced by improvement in Tinnetti balance and gait score to low fall risk range to improve safety in the home and community. 10/31/19: remains high risk for falls 01/02/20: some improvement but still in high risk category 05/26/20: Tinetti score in high risk category 08/28/20: moderate risk for falls 12/02/20: remains in moderate risk for falls. LTG Duration 01/31/21 One Impairment requires armaan-walker for gait, limited to household gait Shelter Goal (LTG) Patient able to ambulate with least restrictive device for functional community distances to improve her functional independence and quality of life. 10/30/19: no progress due to Covid 19. 11/02/19: able to ambulate with quad cane but with very slow speed, household distances, very short community distances . 05/26/20: Now able to ambulate with use of single point cane and use of L4 theraband wrapped around left LE to facilitate left LE internal rotation for improved alignment. Patient unable to don the theraband on her own. Gait is for short distances and very slow at 39 ft in 2 min. 08/28/20: has demonstrated improved gait ability, still using theraband for derotation of LE for more neutral position. Able to consistenly use quad cane and is increasing stride length especially with cues. Now able to ascend and descend 4 stairs with min assist using railing. Mod assist on 6 stairs. 12/02/20: Patient ambulating with SPC, mostly household but some community distances, improved gait alignment with use of theraband for improved alignment. Patient not consistently able to ambulate community distances due to pain in her left LE, and lack of neurological control left LE. Patient may benefit from modification to her current AFO or fabrication of new AFO. 173 ft in 6 minutes LTG Duration 9/25/21 Assessment Summary Assessment Treatment focused on gait training with no TB wrap with SPC and standing tolerance/ weight shifting with therapist facilitation for left knee stability. Physical Therapy Plan Frequency and Duration Frequency of Treatment 2x/Week Duration of Treatment 12 wks Plan of Care Start Date 12/02/20 Plan of Care End Date 01/31/21 Therapeutic Interventions Therapeutic Interventions Aquatic Therapy,Balance Training,Gait Training,Home Exercise Program,Neuromuscular Re-education,Orthotic/ Prosthetic Management,Patient/ Caregiver Education,Self-Care/ Home Management,Taping, Therapeutic Activities, Therapeutic Exercises Modalities Cold Pack/Ice Massage,Hot Packs Next Visit Focus/Plan Next Note Type Treatment Note Next Visit Plan Continue PT with emphasis on left LE functional strengthening and calf and ankle flexibility and facilitation of active movement, balance, gait training. Consult with patient's lactation nurse to problem -solve brace issues. Manual therapy as indicated due to soft tissue tightness. Consider FES to ankle df again ; feel patient may benefit from home use as has unit for wrist.
--- NOTE | 2020-12-29 11:27 | PT.OTN ---
Current Diagnoses Hemiplegia, unspecified affecting unspecified side (12/29/20) Difficulty in walking, not elsewhere classified (12/29/20) Weakness (12/29/20) History of falling (12/29/20) Physical Therapy Treatment Note PT-OP-A Visit Information Start: 05/28/19 08:11 Freq: Status: Active Protocol: Document 12/29/20 10:30 SP (Rec: 12/29/20 11:44 SP [id number]) Out-Patient Physical Therapy Visit Information Visit Information Visit Type Treatment Note Visit Start Time 10:30 Visit Stop Time 11:27 Total Visit Minutes 57 Visit Number 84 Number of DERMATOLOGY SALES REPRESENTATIVE Visits 1 PT-OP-B Current Condition Start: 05/28/19 08:11 Freq: Status: Active Protocol: Document 06/04/20 11:15 SAK (Rec: 06/05/20 16:34 SAK [id number]) Current Condition History of Current Condition Onset Date 2014 Current Complaints weakness, requires assistance with all mobility and household tasks History of Current Condition Reports that she suffered a stroke in 2014 after surgery for brain aneurysm. CVA caused weakness on the left side of her body, gait and balance difficulty, seizures. PT-OP-C Subjective Start: 05/28/19 08:11 Freq: Status: Active Protocol: Document 12/29/20 10:30 SP (Rec: 12/29/20 11:44 SP [id number]) OP-PT Subjective Patient Comments Patient Comments I feel tired today and more lately. I want to walk more like I did when was at my dad' s. Seems like when got this AFO is when my L leg got weaker and not sure why. PT-OP-D Balance Start: 05/28/19 08:11 Freq: Status: Active Protocol: Document 05/29/19 14:30 SAK (Rec: 05/30/19 14:24 SAK [id number]) OP-PT Balance Assessment Sitting Balance Static Sitting Balance Ability Good Dynamic Sitting Balance Ability Fair Standing Balance Static Standing Balance Ability Good Dynamic Standing Balance Ability Fair Device Used hemiwalker right Tinetti Balance Assessment Sitting Balance Sitting Balance Steady, safe Arising from Chair Attempts to Arise Able, requires >1 attempt Standing Balance Immediate Standing Balance Steady with support Standing Balance Steady, wide stance Nudged Response Begins to fall Standing with Eyes Closed Unsteady Turning Step Pattern Turning 360 Degrees Discontinuous steps Stability Turning 360 Degrees Unsteady, grabs/staggers Sitting Down Sitting Down Uses arms or unsteady Gait and Step Initiation of Gait Hesitancy, mult. attempts Right Foot Step Length Does not pass stance ft. Right Foot Step Height Does not clear floor Left Foot Step Length Does not pass stance foot Left Foot Step Height Does not clear floor Step Description Step Symmetry Step length not equal Gait Description Path Description Mild/moderate deviation Trunk Description Marked sway or uses aide Walking Stance Heels apart Scoring and Interpretation Tinetti Composite Score (points) 6 Interpretation of Scores High risk for falls(< 19) Herrera Fall Scale Copyright Permission PT-OP-E Functional Tests Start: 05/28/19 08:11 Freq: Status: Active Protocol: Document 05/26/20 11:15 [facility] (Rec: 05/26/20 17:04 [facility] [id number]) Functional Tests 2 Minute Walk Test Distance 39 ft Device Used single point cane Comments derotation application of level 4 theraband to decrease excess ER right LE PT-OP-G Mobility & Gait Start: 05/28/19 08:11 Freq: Status: Active Protocol: Document 05/26/20 11:15 [facility] (Rec: 05/26/20 17:04 [facility] [id number]) OP Mobility Evaluation Bed Mobility Rolling min assist to right CGA to left Supine to and from Sit min assist to right CGA to left Transfers Sit to Stand CGA to min assist without UE use Bed to Chair Transfers requires use of right UE but able to do with SBA Floor Transfers unable PT-OP-H Neuro Start: 05/28/19 08:11 Freq: Status: Active Protocol: Document 05/29/19 14:30 [facility] (Rec: 05/30/19 14:24 [facility] [id number]) Sensation Evaluation Gross Sensation Gross Sensation Left UE Impaired,Left LE Impaired Sensation Description Paresthesia,Numbness Coordination Evaluation Lower Extremity Tests Left Alternate Heel to Knee; Heel to Toe Test Moderate Impairment Heel on Boles Test Moderate Impairment Foot Tapping Test Moderate Impairment PT-OP-K Range of Motion Start: 05/28/19 08:11 Freq: Status: Active Protocol: Document 05/26/20 11:15 SAK (Rec: 05/26/20 17:04 [facility] [id number]) Hip Goniometric Range of Motion Hip jake Hip ROM WFL Yes Comments actively right LE, passively left LE Knee Goniometric Range of Motion Knee jake Knee ROM WFL Yes Ankle and Foot Goniometric Range of Motion Ankle and Foot Left Passive Ankle/Foot ROM WFL No Left Active Ankle/Foot ROM WFL No PT-OP-M Strength Start: 05/28/19 08:11 Freq: Status: Active Protocol: Document 05/26/20 11:15 SAK (Rec: 05/26/20 17:04 SAK [id number]) Hip Strength Hip Manual Muscle Testing Left Flexion (L2) 3- Fair- Extension (S1) 2 Poor Abduction 2+ Poor+ External Rotation 3- Fair- Internal Rotation 3+ Fair+ Right Flexion (L2) 4 Good Extension (S1) 4- Good- Abduction 4 Good External Rotation 3+ Fair+ Internal Rotation 4- Good- PT-OP-Q Treatments Start: 05/28/19 08:11 Freq: Status: Active Protocol: Document 12/29/20 10:30 SP (Rec: 12/29/20 11:44 SP [id number]) Cardio Equipment Recumbent Stepper (Sci-Fit) Duration (Minutes) 10 Resistance 2 Seat Position 7 Other 1.11 LEs only, assist adduction Gait Training Gait Activity gait w/ AD no wrapping Description no theraband Device Used SPC Level of Assistance SBA Surface stable Distance/Duration 100 ft x2 Treatment Focus L knee flexion, hip IR, wt shift to left, step-through gait Comments cued small step LLE, bigger step RLE: 2-3 pt gait Manual Therapy Treatment Soft Tissue Mobilization L calf Body Location L gastroc, soleus, peroneals, achilles, distal HS Mobilization Type Cross-Friction,Myofascial Release,Sustained Pressure, Other Intensity/Depth Superficial Body Position Hooklying Comments also sustained pressure achilles or calf manual MWM PF /DF with good response decreased tension. (seated on scifit) Joint Mobilizations MTPs, talocrual mobs, rotation forefoot Joint L Grade I Body Position Hooklying Comments good feedback response manual MWM support foot/ ankle seated on scifit w/ L knee bent, noted decrease plantar and inversion tone. Manual Techniques 1 Type manual achilles tendon and HS stretchin Body Location L Body Position Hooklying Comments MWM w/ ankle pump seated on [employer] Neuro Re-Education Treatment Balance Activities standing balance Reps/Duration 4 min Comments no AFO, cues and asisist for soft L knee, increased weight- shift left, minimal UE support then progressed to RLE step together and //,used rail for support, CGA NBOS, modified tandem Details NBOS only this tx Surface firm floor Equipment facing rail Comments wt shifts, assist support LLE on floor (no AFO or shoes BLE) Self-Care/Home Management Treatment Education Patient Education Body Mechanics,Home Exercise Program,Safety Other Education Time spent on self NMES pad placement for forearm/ hand extensor facilitation, good understanding not as active as patient would like at this time to compliment self PROM to LUE by RUJose. Discussion with hand out therapy was provided by brick loader how wanting to adapt heel lift wedge on AFO to facilitate knee flexion support during gait of LLE. PT-OP-R Modalities Start: 05/28/19 08:11 Freq: Status: Active Protocol: Document 12/29/20 10:30 SP (Rec: 12/29/20 11:44 SP [id number]) Electric Stimulation Electric Stimulation Functional Electric Stimulation Body Location L hand/ forearm extensors Duration (Minutes) 2 Patient Position Sitting Comments NMES- education on placement of pad for muscular feedback extension based- check self placement understanding. PT-OP-T Assessment and Plan Start: 05/28/19 08:11 Freq: Status: Active Protocol: Document 12/29/20 10:30 SP (Rec: 12/29/20 11:44 SP [id number]) Physical Therapy Assessment Goals Five Impairment gait speed not adequate for safe community ambulation Longterm Goal (LTG) Patient able to ambulate 300' in 6 min. TUG score no greater than 30 sec 06/02/20: 134' 08/28/20: 144', likely not as high due to new shoes and wearing old AFO because fits better in new shoes. Requires level 4 theraband for derotation of left LE into more neutral position for gait . 09/19/20: 146 ft 6 min w/ QC and Tb wrapping to LLE. 11/13/20: 153 ft CG w/ SPC 2>3 pt gait w/out metronome w/ reported L glut/ lateral leg burn pain, 2 step brief stand breaks. 11/24/20: progressing 173.7 ft using SPC, predominently 2 pt gait. TUG score 59 sec using SPC LTG Duration 01/31/21 Four Impairment requires assistance with bed mobility and transfers Short Term Goal (STG) Patient will be able to perform all bed mobility independently to improve her functional independence. 10/31/19: good goal progress 06/02/20:inconsistent, but min assist most times 11/24/20: Met goal: pt is independent in supine>sit. STG Duration goal met ( independent 11/24/20 ) Motor Vehicle License Clerk Goal (LTG) Patient will be able to perform a floor transfer with SB to min assist. 5x sit to stand score in no more than 15 sec as measure of functional strength for transfers 10/31/19: max assist today 01/02/20: has not been willing to try since 10/31/19 06/02/20: does not feel strong enough to try yet. 08/28/20: max assistance required 12/02/20: remains at max assist , not recently willing to attempt floor transfer. 5x sit to stand score 26 seconds LTG Duration 01/31/21 Three Impairment weakness left UE and LE s/p CVA Longterm Goal (LTG) Improve functional strength in left LE, as evidenced by ability to move from sit > < stand without use of UE's. 10/31/19: OT starts tomorrow. Good progress with sit to stand, though mostly using right UE and LE 01/02/20: Improving ability to perform, able to increase weight-bearing through left LE with cues, but still some use of right UE 05/26/20: With manual and visual feedback patient able to transfer sit to stand with only CG A. 08/28/20: inconsistent ability to move sit to stand without using UE's, but able to do transfer without physical assistance 11/24/20: Goal Met LTG Duration 11/25/20 (Met Goal 11/24/20) Two Impairment balance dysfunction with high risk for falls Motor Vehicle License Clerk Goal (LTG) Improve balance as evidenced by improvement in Tinnetti balance and gait score to low fall risk range to improve safety in the home and community. 10/31/19: remains high risk for falls 01/02/20: some improvement but still in high risk category 05/26/20: Tinetti score in high risk category 08/28/20: moderate risk for falls 12/02/20: remains in moderate risk for falls. LTG Duration 01/31/21 One Impairment requires armaan-walker for gait, limited to household gait Longterm Goal (LTG) Patient able to ambulate with least restrictive device for functional community distances to improve her functional independence and quality of life. 10/30/19: no progress due to Covid 19. 11/02/19: able to ambulate with quad cane but with very slow speed, household distances, very short community distances . 05/26/20: Now able to ambulate with use of single point cane and use of L4 theraband wrapped around left LE to facilitate left LE internal rotation for improved alignment. Patient unable to don the theraband on her own. Gait is for short distances and very slow at 39 ft in 2 min. 08/28/20: has demonstrated improved gait ability, still using theraband for derotation of LE for more neutral position. Able to consistenly use quad cane and is increasing stride length especially with cues. Now able to ascend and descend 4 stairs with min assist using railing. Mod assist on 6 stairs. 12/02/20: Patient ambulating with SPC, mostly household but some community distances, improved gait alignment with use of theraband for improved alignment. Patient not consistently able to ambulate community distances due to pain in her left LE, and lack of neurological control left LE. Patient may benefit from modification to her current AFO or fabrication of new AFO. 173 ft in 6 minutes LTG Duration 01/31/21 Assessment Summary Assessment Pt decreased plantar flexion and quad tone with decrease hyperextension end of tx during gait, good pt verbalized smaller step L and bigger step RLE to while using SPC today, stable. Pt improved decreased tone post manual and standing wt shift at rail. Physical Therapy Plan Frequency and Duration Frequency of Treatment 2x/Week Duration of Treatment 12 wks Plan of Care Start Date 12/02/20 Plan of Care End Date 01/31/21 Therapeutic Interventions Therapeutic Interventions Aquatic Therapy,Balance Training,Gait Training,Home Exercise Program,Neuromuscular Re-education,Orthotic/ Prosthetic Management,Patient/ Caregiver Education,Self-Care/ Home Management,Taping, Therapeutic Activities, Therapeutic Exercises Modalities Cold Pack/Ice Massage,Hot Packs Next Visit Focus/Plan Next Note Type Treatment Note Next Visit Plan Continue PT with emphasis on left LE functional strengthening and calf and ankle flexibility and facilitation of active movement, balance, gait training. Consult with patient's brick loader to problem -solve brace issues. Manual therapy as indicated due to soft tissue tightness. Consider FES to ankle df again ; feel patient may benefit from home use as has unit for wrist.
--- NOTE | 2021-01-01 17:35 | PT.OTN ---
Current Diagnoses Hemiplegia, unspecified affecting unspecified side (01/01/21) Difficulty in walking, not elsewhere classified (01/01/21) Weakness (01/01/21) History of falling (01/01/21) Physical Therapy Treatment Note PT-OP-A Visit Information Start: 05/28/19 08:11 Freq: Status: Active Protocol: Document 01/01/21 13:45 AW (Rec: 01/01/21 13:48 AW [id number]) Out-Patient Physical Therapy Visit Information Visit Information Visit Type Treatment Note Visit Start Time 13:00 Visit Stop Time 13:45 Total Visit Minutes 45 Visit Number 85 Number of DISEASE INTERVENTION SPECIALIST Visits 0 Precautions Precautions Seizure disorder memory dysfunction PT-OP-B Current Condition Start: 05/28/19 08:11 Freq: Status: Active Protocol: Document 06/04/20 11:15 SAK (Rec: 06/05/20 16:34 SAK [id number]) Current Condition History of Current Condition Onset Date 2014 Current Complaints weakness, requires assistance with all mobility and household tasks History of Current Condition Reports that she suffered a stroke in 2014 after surgery for brain aneurysm. CVA caused weakness on the left side of her body, gait and balance difficulty, seizures. PT-OP-C Subjective Start: 05/28/19 08:11 Freq: Status: Active Protocol: Document 01/01/21 13:45 AW (Rec: 01/01/21 13:48 AW [id number]) OP-PT Subjective Patient Comments Patient Comments It's been a busy day with two doctor appointments already. Feel like I'm running on fumes . PT-OP-D Balance Start: 05/28/19 08:11 Freq: Status: Active Protocol: Document 05/29/19 14:30 SAK (Rec: 05/30/19 14:24 SAK [id number]) OP-PT Balance Assessment Sitting Balance Static Sitting Balance Ability Good Dynamic Sitting Balance Ability Fair Standing Balance Static Standing Balance Ability Good Dynamic Standing Balance Ability Fair Device Used [facility] right Tinetti Balance Assessment Sitting Balance Sitting Balance Steady, safe Arising from Chair Attempts to Arise Able, requires >1 attempt Standing Balance Immediate Standing Balance Steady with support Standing Balance Steady, wide stance Nudged Response Begins to fall Standing with Eyes Closed Unsteady Turning Step Pattern Turning 360 Degrees Discontinuous steps Stability Turning 360 Degrees Unsteady, grabs/staggers Sitting Down Sitting Down Uses arms or unsteady Gait and Step Initiation of Gait Hesitancy, mult. attempts Right Foot Step Length Does not pass stance ft. Right Foot Step Height Does not clear floor Left Foot Step Length Does not pass stance foot Left Foot Step Height Does not clear floor Step Description Step Symmetry Step length not equal Gait Description Path Description Mild/moderate deviation Trunk Description Marked sway or uses aide Walking Stance Heels apart Scoring and Interpretation Tinetti Composite Score (points) 6 Interpretation of Scores High risk for falls(< 19) Herrera Fall Scale Copyright Permission PT-OP-E Functional Tests Start: 05/28/19 08:11 Freq: Status: Active Protocol: Document 05/26/20 11:15 [facility] (Rec: 05/26/20 17:04 [facility] [id number]) Functional Tests 2 Minute Walk Test Distance 39 ft Device Used single point cane Comments derotation application of level 4 theraband to decrease excess ER right LE PT-OP-G Mobility & Gait Start: 05/28/19 08:11 Freq: Status: Active Protocol: Document 05/26/20 11:15 [facility] (Rec: 05/26/20 17:04 [facility] [id number]) OP Mobility Evaluation Bed Mobility Rolling min assist to right CGA to left Supine to and from Sit min assist to right CGA to left Transfers Sit to Stand CGA to min assist without UE use Bed to Chair Transfers requires use of right UE but able to do with SBA Floor Transfers unable PT-OP-H Neuro Start: 05/28/19 08:11 Freq: Status: Active Protocol: Document 05/29/19 14:30 [facility] (Rec: 05/30/19 14:24 [facility] [id number]) Sensation Evaluation Gross Sensation Gross Sensation Left UE Impaired,Left LE Impaired Sensation Description Paresthesia,Numbness Coordination Evaluation Lower Extremity Tests Left Alternate Heel to Knee; Heel to Toe Test Moderate Impairment Heel on Boles Test Moderate Impairment Foot Tapping Test Moderate Impairment PT-OP-K Range of Motion Start: 05/28/19 08:11 Freq: Status: Active Protocol: Document 05/26/20 11:15 SAK (Rec: 05/26/20 17:04 [facility] [id number]) Hip Goniometric Range of Motion Hip jake Hip ROM WFL Yes Comments actively right LE, passively left LE Knee Goniometric Range of Motion Knee jake Knee ROM WFL Yes Ankle and Foot Goniometric Range of Motion Ankle and Foot Left Passive Ankle/Foot ROM WFL No Left Active Ankle/Foot ROM WFL No PT-OP-M Strength Start: 05/28/19 08:11 Freq: Status: Active Protocol: Document 05/26/20 11:15 SAK (Rec: 05/26/20 17:04 SAK [id number]) Hip Strength Hip Manual Muscle Testing Left Flexion (L2) 3- Fair- Extension (S1) 2 Poor Abduction 2+ Poor+ External Rotation 3- Fair- Internal Rotation 3+ Fair+ Right Flexion (L2) 4 Good Extension (S1) 4- Good- Abduction 4 Good External Rotation 3+ Fair+ Internal Rotation 4- Good- PT-OP-Q Treatments Start: 05/28/19 08:11 Freq: Status: Active Protocol: Document 01/01/21 13:45 AW (Rec: 01/01/21 13:48 AW [id number]) Cardio Equipment Recumbent Stepper (Sci-Fit) Duration (Minutes) 10 Resistance 2 Seat Position 8 Other 1.25 LEs only, PT assist adduction Therapeutic Exercises Standing Exercises sit to stands Equipment Used no AFO Reps/Minutes 5x Comments manual cues for left LE alignment and L quad activation Gait Training Gait Activity parallel bars Description forward Device Used cues for minimal UE support Level of Assistance min UE support right on bar Surface firm Treatment Focus neutral alignment, weight- shift Comments mirror for visual feedback. Focusing on Flexing L knee/hip , increased stance time left LE gait w/ AD no wrapping Description no theraband Device Used SPC Level of Assistance SBA Surface stable Distance/Duration 150 ft x2 Treatment Focus L knee flexion, hip IR, wt shift to left, step-through gait Comments cued small step LLE, bigger step RLE: 2-3 pt gait Manual Therapy Treatment Soft Tissue Mobilization L calf Body Location L gastroc, soleus, peroneals, achilles, distal HS Mobilization Type Cross-Friction,Myofascial Release,Sustained Pressure, Other Intensity/Depth Moderate Body Position Hooklying Comments (seated on scifit) Manual Techniques 1 Type manual achilles tendon and HS stretchin Body Location L Body Position Hooklying Comments MWM w/ ankle pump seated on Scifit Neuro Re-Education Treatment Balance Activities standing balance Details lateral and A/P weight shifts in WBOS and split stance Reps/Duration 12 min Comments no AFO, cues and manual facilitation for soft L knee , increased weight-shift left, minimal UE support on // PT-OP-R Modalities Start: 05/28/19 08:11 Freq: Status: Active Protocol: Document 12/29/20 10:30 SP (Rec: 12/29/20 11:44 SP [id number]) Electric Stimulation Electric Stimulation Functional Electric Stimulation Body Location L hand/ forearm extensors Duration (Minutes) 2 Patient Position Sitting Comments NMES- education on placement of pad for muscular feedback extension based- check self placement understanding. PT-OP-T Assessment and Plan Start: 05/28/19 08:11 Freq: Status: Active Protocol: Document 01/01/21 13:45 AW (Rec: 01/01/21 17:35 AW [id number]) Physical Therapy Assessment Goals Five Impairment gait speed not adequate for safe community ambulation Pull Worker Goal (LTG) Patient able to ambulate 300' in 6 min. TUG score no greater than 30 sec 06/02/20: 134' 08/28/20: 144', likely not as high due to new shoes and wearing old AFO because fits better in new shoes. Requires level 4 theraband for derotation of left LE into more neutral position for gait . 09/19/20: 146 ft 6 min w/ QC and Tb wrapping to LLE. 11/13/20: 153 ft CG w/ SPC 2>3 pt gait w/out metronome w/ reported L glut/ lateral leg burn pain, 2 step brief stand breaks. 11/24/20: progressing 173.7 ft using SPC, predominently 2 pt gait. TUG score 59 sec using SPC LTG Duration 01/31/21 Four Impairment requires assistance with bed mobility and transfers Short Term Goal (STG) Patient will be able to perform all bed mobility independently to improve her functional independence. 10/31/19: good goal progress 06/02/20:inconsistent, but min assist most times 11/24/20: Met goal: pt is independent in supine>sit. STG Duration goal met ( independent 11/24/20 ) Pull Worker Goal (LTG) Patient will be able to perform a floor transfer with SB to min assist. 5x sit to stand score in no more than 15 sec as measure of functional strength for transfers 10/31/19: max assist today 01/02/20: has not been willing to try since 10/31/19 06/02/20: does not feel strong enough to try yet. 08/28/20: max assistance required 12/02/20: remains at max assist , not recently willing to attempt floor transfer. 5x sit to stand score 26 seconds LTG Duration 01/31/21 Three Impairment weakness left UE and LE s/p CVA Pull Worker Goal (LTG) Improve functional strength in left LE, as evidenced by ability to move from sit > < stand without use of UE's. 10/31/19: OT starts tomorrow. Good progress with sit to stand, though mostly using right UE and LE 01/02/20: Improving ability to perform, able to increase weight-bearing through left LE with cues, but still some use of right UE 05/26/20: With manual and visual feedback patient able to transfer sit to stand with only CG A. 08/28/20: inconsistent ability to move sit to stand without using UE's, but able to do transfer without physical assistance 11/24/20: Goal Met LTG Duration 11/25/20 (Met Goal 11/24/20) Two Impairment balance dysfunction with high risk for falls [facility] Goal (LTG) Improve balance as evidenced by improvement in Tinnetti balance and gait score to low fall risk range to improve safety in the home and community. 10/31/19: remains high risk for falls 01/02/20: some improvement but still in high risk category 05/26/20: Tinetti score in high risk category 08/28/20: moderate risk for falls 12/02/20: remains in moderate risk for falls. LTG Duration 01/31/21 One Impairment requires armaan-walker for gait, limited to household gait Pull Worker Goal (LTG) Patient able to ambulate with least restrictive device for functional community distances to improve her functional independence and quality of life. 10/30/19: no progress due to Covid 19. 11/02/19: able to ambulate with quad cane but with very slow speed, household distances, very short community distances . 05/26/20: Now able to ambulate with use of single point cane and use of L4 theraband wrapped around left LE to facilitate left LE internal rotation for improved alignment. Patient unable to don the theraband on her own. Gait is for short distances and very slow at 39 ft in 2 min. 08/28/20: has demonstrated improved gait ability, still using theraband for derotation of LE for more neutral position. Able to consistenly use quad cane and is increasing stride length especially with cues. Now able to ascend and descend 4 stairs with min assist using railing. Mod assist on 6 stairs. 12/02/20: Patient ambulating with SPC, mostly household but some community distances, improved gait alignment with use of theraband for improved alignment. Patient not consistently able to ambulate community distances due to pain in her left LE, and lack of neurological control left LE. Patient may benefit from modification to her current AFO or fabrication of new AFO. 173 ft in 6 minutes LTG Duration 01/31/21 Assessment Summary Assessment Continued focus on gait training without TB wrap and with SPC. Pt able to verbalize strategy of shorter LLE stride and longer RLE stride and able to execute ~25% of strides during 150 feet ambulation. Physical Therapy Plan Frequency and Duration Frequency of Treatment 2x/Week Duration of Treatment 12 wks Plan of Care Start Date 12/02/20 Plan of Care End Date 01/31/21 Therapeutic Interventions Therapeutic Interventions Aquatic Therapy,Balance Training,Gait Training,Home Exercise Program,Neuromuscular Re-education,Orthotic/ Prosthetic Management,Patient/ Caregiver Education,Self-Care/ Home Management,Taping, Therapeutic Activities, Therapeutic Exercises Modalities Cold Pack/Ice Massage,Hot Packs Next Visit Focus/Plan Next Note Type Treatment Note Next Visit Plan Continue PT with emphasis on left LE functional strengthening and calf and ankle flexibility and facilitation of active movement, balance, gait training. Consult with patient's radiologic technologist to problem -solve brace issues. Manual therapy as indicated due to soft tissue tightness. Consider FES to ankle df again ; feel patient may benefit from home use as has unit for wrist.
--- NOTE | 2021-01-05 13:06 | PT.OTN ---
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 CVA caused weakness on the left side of her body, gait and balance difficulty, seizures. PT-OP-C Subjective Start: 05/28/19 08:11 Freq: Status: Active Protocol: Document 01/05/21 12:17 SP (Rec: 01/05/21 14:12 SP [id number]) OP-PT Subjective Patient Comments Patient Comments I am going to see [facility] week of Jan 19 as second opinion. Pt stated tried walking without QC and touch wall on R like used to do a long time ago. She wants to get back to not having to use QC and wanting to get back to doing Alin. PT-OP-D Balance Start: 05/28/19 08:11 Freq: Status: Active Protocol: Document 05/29/19 14:30 SAK (Rec: 05/30/19 14:24 SAK [id number]) OP-PT Balance Assessment Sitting Balance Static Sitting Balance Ability Good Dynamic Sitting Balance Ability Fair Standing Balance Static Standing Balance Ability Good Dynamic Standing Balance Ability Fair Device Used hemiwalker right Tinetti Balance Assessment Sitting Balance Sitting Balance Steady, safe Arising from Chair Attempts to Arise Able, requires >1 attempt Standing Balance Immediate Standing Balance Steady with support Standing Balance Steady, wide stance Nudged Response Begins to fall Standing with Eyes Closed Unsteady Turning Step Pattern Turning 360 Degrees Discontinuous steps Stability Turning 360 Degrees Unsteady, grabs/staggers Sitting Down Sitting Down Uses arms or unsteady Gait and Step Initiation of Gait Hesitancy, mult. attempts Right Foot Step Length Does not pass stance ft. Right Foot Step Height Does not clear floor Left Foot Step Length Does not pass stance foot Left Foot Step Height Does not clear floor Step Description Step Symmetry Step length not equal Gait Description Path Description Mild/moderate deviation Trunk Description Marked sway or uses aide Walking Stance Heels apart Scoring and Interpretation Tinetti Composite Score (points) 6 Interpretation of Scores High risk for falls(< 19) Herrera Fall Scale Copyright Permission PT-OP-E Functional Tests Start: 05/28/19 08:11 Freq: Status: Active Protocol: Document 05/26/20 11:15 [facility] (Rec: 05/26/20 17:04 [facility] [id number]) Functional Tests 2 Minute Walk Test Distance 39 ft Device Used single point cane Comments derotation application of level 4 theraband to decrease excess ER right LE PT-OP-G Mobility & Gait Start: 05/28/19 08:11 Freq: Status: Active Protocol: Document 05/26/20 11:15 SAK (Rec: 05/26/20 17:04 [facility] [id number]) OP Mobility Evaluation Bed Mobility Rolling min assist to right CGA to left Supine to and from Sit min assist to right CGA to left Transfers Sit to Stand CGA to min assist without UE use Bed to Chair Transfers requires use of right UE but able to do with SBA Floor Transfers unable PT-OP-H Neuro Start: 05/28/19 08:11 Freq: Status: Active Protocol: Document 05/29/19 14:30 SAK (Rec: 05/30/19 14:24 [facility] [id number]) Sensation Evaluation Gross Sensation Gross Sensation Left UE Impaired,Left LE Impaired Sensation Description Paresthesia,Numbness Coordination Evaluation Lower Extremity Tests Left Alternate Heel to Knee; Heel to Toe Test Moderate Impairment Heel on Boles Test Moderate Impairment Foot Tapping Test Moderate Impairment PT-OP-K Range of Motion Start: 05/28/19 08:11 Freq: Status: Active Protocol: Document 05/26/20 11:15 SAK (Rec: 05/26/20 17:04 [facility] [id number]) Hip Goniometric Range of Motion Hip jake Hip ROM WFL Yes Comments actively right LE, passively left LE Knee Goniometric Range of Motion Knee jake Knee ROM WFL Yes Ankle and Foot Goniometric Range of Motion Ankle and Foot Left Passive Ankle/Foot ROM WFL No Left Active Ankle/Foot ROM WFL No PT-OP-M Strength Start: 05/28/19 08:11 Freq: Status: Active Protocol: Document 05/26/20 11:15 SAK (Rec: 05/26/20 17:04 SAK [id number]) Hip Strength Hip Manual Muscle Testing Left Flexion (L2) 3- Fair- Extension (S1) 2 Poor Abduction 2+ Poor+ External Rotation 3- Fair- Internal Rotation 3+ Fair+ Right Flexion (L2) 4 Good Extension (S1) 4- Good- Abduction 4 Good External Rotation 3+ Fair+ Internal Rotation 4- Good- PT-OP-Q Treatments Start: 05/28/19 08:11 Freq: Status: Active Protocol: Document 01/05/21 12:17 SP (Rec: 01/05/21 14:12 SP [id number]) Cardio Equipment Recumbent Stepper (Sci-Fit) Duration (Minutes) 10 Resistance 2 Seat Position 8 Other 0.79 miles, LEs only, occasional assist for L ankle respostion, cues adduct Therapeutic Exercises Standing Exercises TKE Standing Exercise Name initiated- therapist held TB at front Side left Resistance Tb #2 Equipment Used Mod contact rail for balance support Reps/Minutes 2x10 Comments cued for quad fac but not to hyperextension, eccentric control Gait Training Gait Activity forward gait at rail Description step to gait without AFO Device Used R HR Level of Assistance CGA, Min A for LLE foot flat and encourage quad/ HS fac Surface firm Distance/Duration 20 ft x3 Treatment Focus WB into LLE, DF ROM, dynamic balance Comments assisted foot/ ankle positioning while provided CGA through gait belt. Decreased tone foot contact into mid stance, states pain during this phase transition until therapist assist toe extension flat to counter act tone. gait w/ AD no wrapping Description no theraband Device Used SPC Level of Assistance SBA Surface stable Distance/Duration 170 ft AFO donned Treatment Focus L knee flexion, hip IR, wt shift to left, step-through gait Comments cued small step LLE, bigger step RLE: 2-3 pt gait and LLE awareness of adduction to decrease L hip ER. pre-gait weight shifts Description AP, side to side Device Used none Level of Assistance CG, verbal cues Surface firm Distance/Duration rail on R Treatment Focus increased weight bearing left LE (cued >50-75%) Comments preparation phase with midline alignment followed by weight shifts, no AFO in socks on carpet Manual Therapy Treatment Soft Tissue Mobilization L calf Body Location L gastroc, soleus, peroneals, achilles, distal HS Mobilization Type Cross-Friction,Myofascial Release,Sustained Pressure, Other Intensity/Depth Moderate Body Position Hooklying Comments (seated on scifit) Joint Mobilizations MTPs, talocrual mobs, rotation forefoot Joint L Grade I Body Position Hooklying Comments good feedback response manual MWM support foot/ ankle seated on scifit w/ L knee bent, noted decrease plantar and inversion tone. PT-OP-R Modalities Start: 05/28/19 08:11 Freq: Status: Active Protocol: Document 12/29/20 10:30 SP (Rec: 12/29/20 11:44 SP [id number]) Electric Stimulation Electric Stimulation Functional Electric Stimulation Body Location L hand/ forearm extensors Duration (Minutes) 2 Patient Position Sitting Comments NMES- education on placement of pad for muscular feedback extension based- check self placement understanding. PT-OP-T Assessment and Plan Start: 05/28/19 08:11 Freq: Status: Active Protocol: Document 01/05/21 12:17 SP (Rec: 01/05/21 14:12 SP [id number]) Physical Therapy Assessment Goals Five Impairment gait speed not adequate for safe community ambulation [place] Goal (LTG) Patient able to ambulate 300' in 6 min. TUG score no greater than 30 sec 06/02/20: 134' 08/28/20: 144', likely not as high due to new shoes and wearing old AFO because fits better in new shoes. Requires level 4 theraband for derotation of left LE into more neutral position for gait . 09/19/20: 146 ft 6 min w/ QC and Tb wrapping to LLE. 11/13/20: 153 ft CG w/ SPC 2>3 pt gait w/out metronome w/ reported L glut/ lateral leg burn pain, 2 step brief stand breaks. 11/24/20: progressing 173.7 ft using SPC, predominently 2 pt gait. TUG score 59 sec using SPC LTG Duration 01/31/21 Four Impairment requires assistance with bed mobility and transfers Short Term Goal (STG) Patient will be able to perform all bed mobility independently to improve her functional independence. 10/31/19: good goal progress 06/02/20:inconsistent, but min assist most times 11/24/20: Met goal: pt is independent in supine>sit. STG Duration goal met ( independent 11/24/20 ) [facility] Goal (LTG) Patient will be able to perform a floor transfer with SB to min assist. 5x sit to stand score in no more than 15 sec as measure of functional strength for transfers 10/31/19: max assist today 01/02/20: has not been willing to try since 10/31/19 06/02/20: does not feel strong enough to try yet. 08/28/20: max assistance required 12/02/20: remains at max assist , not recently willing to attempt floor transfer. 5x sit to stand score 26 seconds LTG Duration 01/31/21 Three Impairment weakness left UE and LE s/p CVA [place] Goal (LTG) Improve functional strength in left LE, as evidenced by ability to move from sit > < stand without use of UE's. 10/31/19: OT starts tomorrow. Good progress with sit to stand, though mostly using right UE and LE 01/02/20: Improving ability to perform, able to increase weight-bearing through left LE with cues, but still some use of right UE 05/26/20: With manual and visual feedback patient able to transfer sit to stand with only CG A. 08/28/20: inconsistent ability to move sit to stand without using UE's, but able to do transfer without physical assistance 11/24/20: Goal Met LTG Duration 11/25/20 (Met Goal 11/24/20) Two Impairment balance dysfunction with high risk for falls [place] Goal (LTG) Improve balance as evidenced by improvement in Tinnetti balance and gait score to low fall risk range to improve safety in the home and community. 10/31/19: remains high risk for falls 01/02/20: some improvement but still in high risk category 05/26/20: Tinetti score in high risk category 08/28/20: moderate risk for falls 12/02/20: remains in moderate risk for falls. LTG Duration 01/31/21 One Impairment requires armaan-walker for gait, limited to household gait [place] Goal (LTG) Patient able to ambulate with least restrictive device for functional community distances to improve her functional independence and quality of life. 10/30/19: no progress due to Covid 19. 11/02/19: able to ambulate with quad cane but with very slow speed, household distances, very short community distances . 05/26/20: Now able to ambulate with use of single point cane and use of L4 theraband wrapped around left LE to facilitate left LE internal rotation for improved alignment. Patient unable to don the theraband on her own. Gait is for short distances and very slow at 39 ft in 2 min. 08/28/20: has demonstrated improved gait ability, still using theraband for derotation of LE for more neutral position. Able to consistenly use quad cane and is increasing stride length especially with cues. Now able to ascend and descend 4 stairs with min assist using railing. Mod assist on 6 stairs. 12/02/20: Patient ambulating with SPC, mostly household but some community distances, improved gait alignment with use of theraband for improved alignment. Patient not consistently able to ambulate community distances due to pain in her left LE, and lack of neurological control left LE. Patient may benefit from modification to her current AFO or fabrication of new AFO. 173 ft in 6 minutes LTG Duration 01/31/21 Assessment Summary Assessment Pt increase DF, required Manual assist during scifit and WB gait at rail, [facility] but notes foot pain into heel strike and WB into LLE dueto fighting tone. Physical Therapy Plan Frequency and Duration Frequency of Treatment 2x/Week Duration of Treatment 12 wks Plan of Care Start Date 12/02/20 Plan of Care End Date 01/31/21 Therapeutic Interventions Therapeutic Interventions Aquatic Therapy,Balance Training,Gait Training,Home Exercise Program,Neuromuscular Re-education,Orthotic/ Prosthetic Management,Patient/ Caregiver Education,Self-Care/ Home Management,Taping, Therapeutic Activities, Therapeutic Exercises Modalities Cold Pack/Ice Massage,Hot Packs Next Visit Focus/Plan Next Note Type Treatment Note Next Visit Plan Next tx: check personal stimulator on LUE, forgot last tx to assess placement pads per pt request. Continue PT with emphasis on left LE functional strengthening and calf and ankle flexibility and facilitation of active movement, balance, gait training. Consult with patient's inspector materials and processes to problem -solve brace issues. Manual therapy as indicated due to soft tissue tightness. Consider FES to ankle df again ; feel patient may benefit from home use as has unit for wrist.
--- NOTE | 2021-01-07 11:15 | PT.OTN ---
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 CVA caused weakness on the left side of her body, gait and balance difficulty, seizures. PT-OP-C Subjective Start: 05/28/19 08:11 Freq: Status: Active Protocol: Document 01/07/21 11:14 SAK (Rec: 01/07/21 12:05 [facility] [id number]) OP-PT Subjective Patient Comments Patient Comments Fatigued after last session, no increase in pain. brought e-stim unit with new electrodes for patient to assess and show application. Patient has used on her hand and wrist previously. PT-OP-D Balance Start: 05/28/19 08:11 Freq: Status: Active Protocol: Document 05/29/19 14:30 SAK (Rec: 05/30/19 14:24 SAK [id number]) OP-PT Balance Assessment Sitting Balance Static Sitting Balance Ability Good Dynamic Sitting Balance Ability Fair Standing Balance Static Standing Balance Ability Good Dynamic Standing Balance Ability Fair Device Used hemiwalker right Tinetti Balance Assessment Sitting Balance Sitting Balance Steady, safe Arising from Chair Attempts to Arise Able, requires >1 attempt Standing Balance Immediate Standing Balance Steady with support Standing Balance Steady, wide stance Nudged Response Begins to fall Standing with Eyes Closed Unsteady Turning Step Pattern Turning 360 Degrees Discontinuous steps Stability Turning 360 Degrees Unsteady, grabs/staggers Sitting Down Sitting Down Uses arms or unsteady Gait and Step Initiation of Gait Hesitancy, mult. attempts Right Foot Step Length Does not pass stance ft. Right Foot Step Height Does not clear floor Left Foot Step Length Does not pass stance foot Left Foot Step Height Does not clear floor Step Description Step Symmetry Step length not equal Gait Description Path Description Mild/moderate deviation Trunk Description Marked sway or uses aide Walking Stance Heels apart Scoring and Interpretation Tinetti Composite Score (points) 6 Interpretation of Scores High risk for falls(< 19) Herrera Fall Scale Copyright Permission PT-OP-E Functional Tests Start: 05/28/19 08:11 Freq: Status: Active Protocol: Document 05/26/20 11:15 [facility] (Rec: 05/26/20 17:04 [facility] [id number]) Functional Tests 2 Minute Walk Test Distance 39 ft Device Used single point cane Comments derotation application of level 4 theraband to decrease excess ER right LE PT-OP-G Mobility & Gait Start: 05/28/19 08:11 Freq: Status: Active Protocol: Document 05/26/20 11:15 [facility] (Rec: 05/26/20 17:04 [facility] [id number]) OP Mobility Evaluation Bed Mobility Rolling min assist to right CGA to left Supine to and from Sit min assist to right CGA to left Transfers Sit to Stand CGA to min assist without UE use Bed to Chair Transfers requires use of right UE but able to do with SBA Floor Transfers unable PT-OP-H Neuro Start: 05/28/19 08:11 Freq: Status: Active Protocol: Document 05/29/19 14:30 [facility] (Rec: 05/30/19 14:24 [facility] [id number]) Sensation Evaluation Gross Sensation Gross Sensation Left UE Impaired,Left LE Impaired Sensation Description Paresthesia,Numbness Coordination Evaluation Lower Extremity Tests Left Alternate Heel to Knee; Heel to Toe Test Moderate Impairment Heel on Boles Test Moderate Impairment Foot Tapping Test Moderate Impairment PT-OP-K Range of Motion Start: 05/28/19 08:11 Freq: Status: Active Protocol: Document 05/26/20 11:15 [facility] (Rec: 05/26/20 17:04 [facility] [id number]) Hip Goniometric Range of Motion Hip jake Hip ROM WFL Yes Comments actively right LE, passively left LE Knee Goniometric Range of Motion Knee jake Knee ROM WFL Yes Ankle and Foot Goniometric Range of Motion Ankle and Foot Left Passive Ankle/Foot ROM WFL No Left Active Ankle/Foot ROM WFL No PT-OP-M Strength Start: 05/28/19 08:11 Freq: Status: Active Protocol: Document 05/26/20 11:15 [facility] (Rec: 05/26/20 17:04 [facility] [id number]) Hip Strength Hip Manual Muscle Testing Left Flexion (L2) 3- Fair- Extension (S1) 2 Poor Abduction 2+ Poor+ External Rotation 3- Fair- Internal Rotation 3+ Fair+ Right Flexion (L2) 4 Good Extension (S1) 4- Good- Abduction 4 Good External Rotation 3+ Fair+ Internal Rotation 4- Good- PT-OP-Q Treatments Start: 05/28/19 08:11 Freq: Status: Active Protocol: Document 01/07/21 11:14 [facility] (Rec: 01/07/21 12:05 [facility] [id number]) Cardio Equipment Recumbent Stepper (Sci-Fit) Duration (Minutes) 10 Resistance 2 Seat Position 11 Other 1.17 miles,frequent assist for L ankle respostion, cues adduct Therapeutic Exercises Standing Exercises TKE Standing Exercise Name therapist held TB at front Side left Resistance Tb #2 Equipment Used Mod contact rail for balance support Reps/Minutes 2x10 Comments cued for quad fac but not to hyperextension, eccentric control Gait Training Gait Activity parallel bars Description forward Device Used cues for minimal UE support Level of Assistance min UE support right on bar Surface firm Treatment Focus neutral alignment, weight- shift Comments mirror for visual feedback. Focusing on Flexing L knee/hip , increased stance time left LE, PT assisted foot/ ankle positioning while provided CGA through gait belt. Decreased tone foot contact into mid stance, gait w/ AD no wrapping Description no theraband Device Used SPC Level of Assistance SBA Surface stable Distance/Duration 100'x2 ft AFO donned Treatment Focus L knee flexion, hip IR, wt shift to left, step-through gait Comments cued small step LLE, bigger step RLE: 2-3 pt gait and LLE awareness of adduction to decrease L hip ER. pre-gait weight shifts Description AP, side to side Device Used none Level of Assistance CG, verbal cues Surface firm Distance/Duration rail on R Treatment Focus increased weight bearing left LE (cued >50-75%) Comments preparation phase with midline alignment followed by weight shifts, no AFO in socks on carpet Manual Therapy Treatment Soft Tissue Mobilization L calf Body Location L gastroc, soleus, peroneals, achilles, distal HS Mobilization Type Cross-Friction,Myofascial Release,Sustained Pressure, Other Intensity/Depth Moderate Body Position Hooklying Comments (seated on scifit) Joint Mobilizations MTPs, talocrual mobs, rotation forefoot Joint L Grade I Body Position Hooklying Comments good feedback response manual MWM support foot/ ankle seated on scifit w/ L knee bent, noted decrease plantar and inversion tone. Neuro Re-Education Treatment Balance Activities standing balance Details lateral and A/P weight shifts in WBOS and split stance Reps/Duration 12 min Comments no AFO, cues and manual facilitation for soft L knee , increased weight-shift left, minimal UE support on // PT-OP-R Modalities Start: 05/28/19 08:11 Freq: Status: Active Protocol: Document 12/29/20 10:30 SP (Rec: 12/29/20 11:44 SP [id number]) Electric Stimulation Electric Stimulation Functional Electric Stimulation Body Location L hand/ forearm extensors Duration (Minutes) 2 Patient Position Sitting Comments NMES- education on placement of pad for muscular feedback extension based- check self placement understanding. PT-OP-T Assessment and Plan Start: 05/28/19 08:11 Freq: Status: Active Protocol: Document 01/07/21 11:14 SAK (Rec: 01/07/21 12:05 SAK [id number]) Physical Therapy Assessment Goals Five Impairment gait speed not adequate for safe community ambulation Shop Worker Goal (LTG) Patient able to ambulate 300' in 6 min. TUG score no greater than 30 sec 06/02/20: 134' 08/28/20: 144', likely not as high due to new shoes and wearing old AFO because fits better in new shoes. Requires level 4 theraband for derotation of left LE into more neutral position for gait . 09/19/20: 146 ft 6 min w/ QC and Tb wrapping to LLE. 11/13/20: 153 ft CG w/ SPC 2>3 pt gait w/out metronome w/ reported L glut/ lateral leg burn pain, 2 step brief stand breaks. 11/24/20: progressing 173.7 ft using SPC, predominently 2 pt gait. TUG score 59 sec using SPC LTG Duration 01/31/21 Four Impairment requires assistance with bed mobility and transfers Short Term Goal (STG) Patient will be able to perform all bed mobility independently to improve her functional independence. 10/31/19: good goal progress 06/02/20:inconsistent, but min assist most times 11/24/20: Met goal: pt is independent in supine>sit. STG Duration goal met ( independent 11/24/20 ) Halfway Goal (LTG) Patient will be able to perform a floor transfer with SB to min assist. 5x sit to stand score in no more than 15 sec as measure of functional strength for transfers 10/31/19: max assist today 01/02/20: has not been willing to try since 10/31/19 06/02/20: does not feel strong enough to try yet. 08/28/20: max assistance required 12/02/20: remains at max assist , not recently willing to attempt floor transfer. 5x sit to stand score 26 seconds LTG Duration 01/31/21 Three Impairment weakness left UE and LE s/p CVA Shop Worker Goal (LTG) Improve functional strength in left LE, as evidenced by ability to move from sit > < stand without use of UE's. 10/31/19: OT starts tomorrow. Good progress with sit to stand, though mostly using right UE and LE 01/02/20: Improving ability to perform, able to increase weight-bearing through left LE with cues, but still some use of right UE 05/26/20: With manual and visual feedback patient able to transfer sit to stand with only CG A. 08/28/20: inconsistent ability to move sit to stand without using UE's, but able to do transfer without physical assistance 11/24/20: Goal Met LTG Duration 11/25/20 (Met Goal 11/24/20) Two Impairment balance dysfunction with high risk for falls Shop Worker Goal (LTG) Improve balance as evidenced by improvement in Tinnetti balance and gait score to low fall risk range to improve safety in the home and community. 10/31/19: remains high risk for falls 01/02/20: some improvement but still in high risk category 05/26/20: Tinetti score in high risk category 08/28/20: moderate risk for falls 12/02/20: remains in moderate risk for falls. LTG Duration 01/31/21 One Impairment requires armaan-walker for gait, limited to household gait Halfway Goal (LTG) Patient able to ambulate with least restrictive device for functional community distances to improve her functional independence and quality of life. 10/30/19: no progress due to Covid 19. 11/02/19: able to ambulate with quad cane but with very slow speed, household distances, very short community distances . 05/26/20: Now able to ambulate with use of single point cane and use of L4 theraband wrapped around left LE to facilitate left LE internal rotation for improved alignment. Patient unable to don the theraband on her own. Gait is for short distances and very slow at 39 ft in 2 min. 08/28/20: has demonstrated improved gait ability, still using theraband for derotation of LE for more neutral position. Able to consistenly use quad cane and is increasing stride length especially with cues. Now able to ascend and descend 4 stairs with min assist using railing. Mod assist on 6 stairs. 12/02/20: Patient ambulating with SPC, mostly household but some community distances, improved gait alignment with use of theraband for improved alignment. Patient not consistently able to ambulate community distances due to pain in her left LE, and lack of neurological control left LE. Patient may benefit from modification to her current AFO or fabrication of new AFO. 173 ft in 6 minutes LTG Duration 01/31/21 Assessment Summary Assessment PT required to decrease tone in toe flexors during gait without AFO and encourage forward weight shift without knee hyperextension during gait without AFO. Patient seeking another opinion about possibly modification of her AFO. Demonstrated good understanding of application of e-stim for stimulation to ankle df after demonstration by PT, contraction but no movement of foot achieved today; patient to continue at home. Physical Therapy Plan Frequency and Duration Frequency of Treatment 2x/Week Duration of Treatment 12 wks Plan of Care Start Date 12/02/20 Plan of Care End Date 01/31/21 Therapeutic Interventions Therapeutic Interventions Aquatic Therapy,Balance Training,Gait Training,Home Exercise Program,Neuromuscular Re-education,Orthotic/ Prosthetic Management,Patient/ Caregiver Education,Self-Care/ Home Management,Taping, Therapeutic Activities, Therapeutic Exercises Modalities Cold Pack/Ice Massage,Hot Packs Next Visit Focus/Plan Next Note Type Treatment Note Next Visit Plan Continue PT with emphasis on left LE functional strengthening and calf and ankle flexibility and facilitation of active movement, balance, gait training. Consult with patient's intensive care anaesthetist to problem -solve brace issues. Manual therapy as indicated due to soft tissue tightness.
--- NOTE | 2021-01-13 13:59 | PT-OP ANOTE ---
DNS for PT appointment
--- NOTE | 2021-01-15 17:02 | PT.OTN ---
Current Diagnoses Hemiplegia, unspecified affecting unspecified side (01/15/21) Difficulty in walking, not elsewhere classified (01/15/21) Weakness (01/15/21) History of falling (01/15/21) Physical Therapy Treatment Note PT-OP-A Visit Information Start: 05/28/19 08:11 Freq: Status: Active Protocol: Document 01/15/21 12:55 SAK (Rec: 01/15/21 13:49 SAK [id number]) Out-Patient Physical Therapy Visit Information Visit Information Visit Type Treatment Note Visit Start Time 13:00 Visit Stop Time 13:45 Total Visit Minutes 45 Visit Number 87 Precautions Precautions Seizure disorder memory dysfunction PT-OP-B Current Condition Start: 05/28/19 08:11 Freq: Status: Active Protocol: Document 06/04/20 11:15 SAK (Rec: 06/05/20 16:34 SAK [id number]) Current Condition History of Current Condition Onset Date 2014 Current Complaints weakness, requires assistance with all mobility and household tasks History of Current Condition Reports that she suffered a stroke in 2014 after surgery for brain aneurysm. CVA caused weakness on the left side of her body, gait and balance difficulty, seizures. PT-OP-C Subjective Start: 05/28/19 08:11 Freq: Status: Active Protocol: Document 01/15/21 12:55 SAK (Rec: 01/15/21 13:49 SAK [id number]) OP-PT Subjective Patient Comments Patient Comments Reports severe pain last night due to her neuropathy, saw Dr Barry Valdez for treatment, some better now with that treatment and pain medication, but doesn't want to take too much. Thinks due to both menopause and her Hashimotos PT-OP-D Balance Start: 05/28/19 08:11 Freq: Status: Active Protocol: Document 05/29/19 14:30 SAK (Rec: 05/30/19 14:24 SAK [id number]) OP-PT Balance Assessment Sitting Balance Static Sitting Balance Ability Good Dynamic Sitting Balance Ability Fair Standing Balance Static Standing Balance Ability Good Dynamic Standing Balance Ability Fair Device Used hemiwalker right Tinetti Balance Assessment Sitting Balance Sitting Balance Steady, safe Arising from Chair Attempts to Arise Able, requires >1 attempt Standing Balance Immediate Standing Balance Steady with support Standing Balance Steady, wide stance Nudged Response Begins to fall Standing with Eyes Closed Unsteady Turning Step Pattern Turning 360 Degrees Discontinuous steps Stability Turning 360 Degrees Unsteady, grabs/staggers Sitting Down Sitting Down Uses arms or unsteady Gait and Step Initiation of Gait Hesitancy, mult. attempts Right Foot Step Length Does not pass stance ft. Right Foot Step Height Does not clear floor Left Foot Step Length Does not pass stance foot Left Foot Step Height Does not clear floor Step Description Step Symmetry Step length not equal Gait Description Path Description Mild/moderate deviation Trunk Description Marked sway or uses aide Walking Stance Heels apart Scoring and Interpretation Tinetti Composite Score (points) 6 Interpretation of Scores High risk for falls(< 19) Herrera Fall Scale Copyright Permission PT-OP-E Functional Tests Start: 05/28/19 08:11 Freq: Status: Active Protocol: Document 05/26/20 11:15 [facility] (Rec: 05/26/20 17:04 [facility] [id number]) Functional Tests 2 Minute Walk Test Distance 39 ft Device Used single point cane Comments derotation application of level 4 theraband to decrease excess ER right LE PT-OP-G Mobility & Gait Start: 05/28/19 08:11 Freq: Status: Active Protocol: Document 05/26/20 11:15 [facility] (Rec: 05/26/20 17:04 [facility] [id number]) OP Mobility Evaluation Bed Mobility Rolling min assist to right CGA to left Supine to and from Sit min assist to right CGA to left Transfers Sit to Stand CGA to min assist without UE use Bed to Chair Transfers requires use of right UE but able to do with SBA Floor Transfers unable PT-OP-H Neuro Start: 05/28/19 08:11 Freq: Status: Active Protocol: Document 05/29/19 14:30 [facility] (Rec: 05/30/19 14:24 [facility] [id number]) Sensation Evaluation Gross Sensation Gross Sensation Left UE Impaired,Left LE Impaired Sensation Description Paresthesia,Numbness Coordination Evaluation Lower Extremity Tests Left Alternate Heel to Knee; Heel to Toe Test Moderate Impairment Heel on Boles Test Moderate Impairment Foot Tapping Test Moderate Impairment PT-OP-K Range of Motion Start: 05/28/19 08:11 Freq: Status: Active Protocol: Document 05/26/20 11:15 [facility] (Rec: 05/26/20 17:04 [facility] [id number]) Hip Goniometric Range of Motion Hip jake Hip ROM WFL Yes Comments actively right LE, passively left LE Knee Goniometric Range of Motion Knee jake Knee ROM WFL Yes Ankle and Foot Goniometric Range of Motion Ankle and Foot Left Passive Ankle/Foot ROM WFL No Left Active Ankle/Foot ROM WFL No PT-OP-M Strength Start: 05/28/19 08:11 Freq: Status: Active Protocol: Document 05/26/20 11:15 [facility] (Rec: 05/26/20 17:04 [facility] [id number]) Hip Strength Hip Manual Muscle Testing Left Flexion (L2) 3- Fair- Extension (S1) 2 Poor Abduction 2+ Poor+ External Rotation 3- Fair- Internal Rotation 3+ Fair+ Right Flexion (L2) 4 Good Extension (S1) 4- Good- Abduction 4 Good External Rotation 3+ Fair+ Internal Rotation 4- Good- PT-OP-Q Treatments Start: 05/28/19 08:11 Freq: Status: Active Protocol: Document 01/15/21 12:55 [facility] (Rec: 01/15/21 13:49 [facility] [id number]) Cardio Equipment Recumbent Stepper (Sci-Fit) Duration (Minutes) 10 Resistance 2 Seat Position 11 Other 1.27 miles,frequent assist for L ankle respostion, cues adduct Therapeutic Exercises Standing Exercises TKE Standing Exercise Name therapist held TB at front Side left Resistance Tb #2 Equipment Used Mod contact rail for balance support Reps/Minutes 2x10 Comments cued for quad fac but not to hyperextension, eccentric control Gait Training Gait Activity parallel bars Description forward Device Used cues for minimal UE support Level of Assistance min UE support right on bar Surface firm Treatment Focus neutral alignment, weight- shift Comments mirror for visual feedback. Focusing on Flexing L knee/hip , increased stance time left LE, PT assisted foot/ ankle positioning while provided CGA through gait belt. Decreased tone foot contact into mid stance, Manual Therapy Treatment Soft Tissue Mobilization L calf Body Location L gastroc, soleus, peroneals, achilles, distal HS Mobilization Type Cross-Friction,Myofascial Release,Sustained Pressure, Other Intensity/Depth Moderate Body Position Hooklying Comments (seated on scifit) Joint Mobilizations MTPs, talocrual mobs, rotation forefoot Joint L Grade II Body Position Sitting Comments good feedback response manual MWM support foot/ ankle seated on scifit w/ L knee bent, noted decrease plantar and inversion tone. Neuro Re-Education Treatment Balance Activities standing balance Details lateral and A/P weight shifts in WBOS and split stance Reps/Duration 8 min Comments no AFO, cues and manual facilitation for soft L knee , increased weight-shift left, minimal UE support on // balloon volleyball Details 3 min Surface firm, parallel bars Equipment balloon Comments cues for equal weight-bearing, bent knees. PT-OP-R Modalities Start: 05/28/19 08:11 Freq: Status: Active Protocol: Document 12/29/20 10:30 SP (Rec: 12/29/20 11:44 SP [id number]) Electric Stimulation Electric Stimulation Functional Electric Stimulation Body Location L hand/ forearm extensors Duration (Minutes) 2 Patient Position Sitting Comments NMES- education on placement of pad for muscular feedback extension based- check self placement understanding. PT-OP-T Assessment and Plan Start: 05/28/19 08:11 Freq: Status: Active Protocol: Document 01/15/21 12:55 SAK (Rec: 01/15/21 13:49 SAK [id number]) Physical Therapy Assessment Goals Five Impairment gait speed not adequate for safe community ambulation [employer] Goal (LTG) Patient able to ambulate 300' in 6 min. TUG score no greater than 30 sec 06/02/20: 134' 08/28/20: 144', likely not as high due to new shoes and wearing old AFO because fits better in new shoes. Requires level 4 theraband for derotation of left LE into more neutral position for gait . 09/19/20: 146 ft 6 min w/ QC and Tb wrapping to LLE. 11/13/20: 153 ft CG w/ SPC 2>3 pt gait w/out metronome w/ reported L glut/ lateral leg burn pain, 2 step brief stand breaks. 11/24/20: progressing 173.7 ft using SPC, predominently 2 pt gait. TUG score 59 sec using SPC LTG Duration 01/31/21 Four Impairment requires assistance with bed mobility and transfers Short Term Goal (STG) Patient will be able to perform all bed mobility independently to improve her functional independence. 10/31/19: good goal progress 06/02/20:inconsistent, but min assist most times 11/24/20: Met goal: pt is independent in supine>sit. STG Duration goal met ( independent 11/24/20 ) Alf Goal (LTG) Patient will be able to perform a floor transfer with SB to min assist. 5x sit to stand score in no more than 15 sec as measure of functional strength for transfers 10/31/19: max assist today 01/02/20: has not been willing to try since 10/31/19 06/02/20: does not feel strong enough to try yet. 08/28/20: max assistance required 12/02/20: remains at max assist , not recently willing to attempt floor transfer. 5x sit to stand score 26 seconds LTG Duration 01/31/21 Three Impairment weakness left UE and LE s/p CVA [employer] Goal (LTG) Improve functional strength in left LE, as evidenced by ability to move from sit > < stand without use of UE's. 10/31/19: OT starts tomorrow. Good progress with sit to stand, though mostly using right UE and LE 01/02/20: Improving ability to perform, able to increase weight-bearing through left LE with cues, but still some use of right UE 05/26/20: With manual and visual feedback patient able to transfer sit to stand with only CG A. 08/28/20: inconsistent ability to move sit to stand without using UE's, but able to do transfer without physical assistance 11/24/20: Goal Met LTG Duration 11/25/20 (Met Goal 11/24/20) Two Impairment balance dysfunction with high risk for falls Alf Goal (LTG) Improve balance as evidenced by improvement in Tinnetti balance and gait score to low fall risk range to improve safety in the home and community. 10/31/19: remains high risk for falls 01/02/20: some improvement but still in high risk category 05/26/20: Tinetti score in high risk category 08/28/20: moderate risk for falls 12/02/20: remains in moderate risk for falls. LTG Duration 01/31/21 One Impairment requires armaan-walker for gait, limited to household gait [employer] Goal (LTG) Patient able to ambulate with least restrictive device for functional community distances to improve her functional independence and quality of life. 10/30/19: no progress due to Covid 19. 11/02/19: able to ambulate with quad cane but with very slow speed, household distances, very short community distances . 05/26/20: Now able to ambulate with use of single point cane and use of L4 theraband wrapped around left LE to facilitate left LE internal rotation for improved alignment. Patient unable to don the theraband on her own. Gait is for short distances and very slow at 39 ft in 2 min. 08/28/20: has demonstrated improved gait ability, still using theraband for derotation of LE for more neutral position. Able to consistenly use quad cane and is increasing stride length especially with cues. Now able to ascend and descend 4 stairs with min assist using railing. Mod assist on 6 stairs. 12/02/20: Patient ambulating with SPC, mostly household but some community distances, improved gait alignment with use of theraband for improved alignment. Patient not consistently able to ambulate community distances due to pain in her left LE, and lack of neurological control left LE. Patient may benefit from modification to her current AFO or fabrication of new AFO. 173 ft in 6 minutes LTG Duration 01/31/21 Assessment Summary Assessment Improved weight shift to left LE with gait today, verbal and manual cues for knee flex with weight acceptance. With balloon volleyball, patient able to stand without knee recurvatum x 3 min, barefoot, keeping heel down. Physical Therapy Plan Frequency and Duration Frequency of Treatment 2x/Week Duration of Treatment 12 wks Plan of Care Start Date 12/02/20 Plan of Care End Date 01/31/21 Therapeutic Interventions Therapeutic Interventions Aquatic Therapy,Balance Training,Gait Training,Home Exercise Program,Neuromuscular Re-education,Orthotic/ Prosthetic Management,Patient/ Caregiver Education,Self-Care/ Home Management,Taping, Therapeutic Activities, Therapeutic Exercises Modalities Cold Pack/Ice Massage,Hot Packs Next Visit Focus/Plan Next Note Type Treatment Note Next Visit Plan Continue PT with emphasis on left LE functional strengthening and calf and ankle flexibility and facilitation of active movement, balance, gait training without AFO as able. Manual therapy as indicated due to soft tissue tightness.
--- NOTE | 2021-01-21 10:27 | PT.OTN ---
Current Diagnoses Hemiplegia, unspecified affecting unspecified side (01/20/21) Difficulty in walking, not elsewhere classified (01/20/21) Weakness (01/20/21) History of falling (01/20/21) Physical Therapy Treatment Note PT-OP-A Visit Information Start: 05/28/19 08:11 Freq: Status: Active Protocol: Document 01/20/21 11:59 SAK (Rec: 01/20/21 12:13 SAK [id number]) Out-Patient Physical Therapy Visit Information Visit Information Visit Type Treatment Note Visit Start Time 11:15 Visit Stop Time 12:10 Total Visit Minutes 55 Visit Number 88 Precautions Precautions Seizure disorder memory dysfunction PT-OP-B Current Condition Start: 05/28/19 08:11 Freq: Status: Active Protocol: Document 06/04/20 11:15 SAK (Rec: 06/05/20 16:34 [facility] [id number]) Current Condition History of Current Condition Onset Date 2014 Current Complaints weakness, requires assistance with all mobility and household tasks History of Current Condition Reports that she suffered a stroke in 2014 after surgery for brain aneurysm. CVA caused weakness on the left side of her body, gait and balance difficulty, seizures. PT-OP-C Subjective Start: 05/28/19 08:11 Freq: Status: Active Protocol: Document 01/20/21 11:59 SAK (Rec: 01/20/21 12:13 SAK [id number]) OP-PT Subjective Patient Comments Patient Comments outreach specialist at [facility] inserted heel lift left shoe, pt reports feels it prevents hyperextension of knee PT-OP-D Balance Start: 05/28/19 08:11 Freq: Status: Active Protocol: Document 05/29/19 14:30 SAK (Rec: 05/30/19 14:24 SAK [id number]) OP-PT Balance Assessment Sitting Balance Static Sitting Balance Ability Good Dynamic Sitting Balance Ability Fair Standing Balance Static Standing Balance Ability Good Dynamic Standing Balance Ability Fair Device Used hemiwalker right Tinetti Balance Assessment Sitting Balance Sitting Balance Steady, safe Arising from Chair Attempts to Arise Able, requires >1 attempt Standing Balance Immediate Standing Balance Steady with support Standing Balance Steady, wide stance Nudged Response Begins to fall Standing with Eyes Closed Unsteady Turning Step Pattern Turning 360 Degrees Discontinuous steps Stability Turning 360 Degrees Unsteady, grabs/staggers Sitting Down Sitting Down Uses arms or unsteady Gait and Step Initiation of Gait Hesitancy, mult. attempts Right Foot Step Length Does not pass stance ft. Right Foot Step Height Does not clear floor Left Foot Step Length Does not pass stance foot Left Foot Step Height Does not clear floor Step Description Step Symmetry Step length not equal Gait Description Path Description Mild/moderate deviation Trunk Description Marked sway or uses aide Walking Stance Heels apart Scoring and Interpretation Tinetti Composite Score (points) 6 Interpretation of Scores High risk for falls(< 19) Herrera Fall Scale Copyright Permission PT-OP-E Functional Tests Start: 05/28/19 08:11 Freq: Status: Active Protocol: Document 05/26/20 11:15 [facility] (Rec: 05/26/20 17:04 [facility] [id number]) Functional Tests 2 Minute Walk Test Distance 39 ft Device Used single point cane Comments derotation application of level 4 theraband to decrease excess ER right LE PT-OP-G Mobility & Gait Start: 05/28/19 08:11 Freq: Status: Active Protocol: Document 05/26/20 11:15 [facility] (Rec: 05/26/20 17:04 [facility] [id number]) OP Mobility Evaluation Bed Mobility Rolling min assist to right CGA to left Supine to and from Sit min assist to right CGA to left Transfers Sit to Stand CGA to min assist without UE use Bed to Chair Transfers requires use of right UE but able to do with SBA Floor Transfers unable PT-OP-H Neuro Start: 05/28/19 08:11 Freq: Status: Active Protocol: Document 05/29/19 14:30 [facility] (Rec: 05/30/19 14:24 [facility] [id number]) Sensation Evaluation Gross Sensation Gross Sensation Left UE Impaired,Left LE Impaired Sensation Description Paresthesia,Numbness Coordination Evaluation Lower Extremity Tests Left Alternate Heel to Knee; Heel to Toe Test Moderate Impairment Heel on Boles Test Moderate Impairment Foot Tapping Test Moderate Impairment PT-OP-K Range of Motion Start: 05/28/19 08:11 Freq: Status: Active Protocol: Document 05/26/20 11:15 [facility] (Rec: 05/26/20 17:04 [facility] [id number]) Hip Goniometric Range of Motion Hip jake Hip ROM WFL Yes Comments actively right LE, passively left LE Knee Goniometric Range of Motion Knee jake Knee ROM WFL Yes Ankle and Foot Goniometric Range of Motion Ankle and Foot Left Passive Ankle/Foot ROM WFL No Left Active Ankle/Foot ROM WFL No PT-OP-M Strength Start: 05/28/19 08:11 Freq: Status: Active Protocol: Document 05/26/20 11:15 [facility] (Rec: 05/26/20 17:04 [facility] [id number]) Hip Strength Hip Manual Muscle Testing Left Flexion (L2) 3- Fair- Extension (S1) 2 Poor Abduction 2+ Poor+ External Rotation 3- Fair- Internal Rotation 3+ Fair+ Right Flexion (L2) 4 Good Extension (S1) 4- Good- Abduction 4 Good External Rotation 3+ Fair+ Internal Rotation 4- Good- PT-OP-Q Treatments Start: 05/28/19 08:11 Freq: Status: Active Protocol: Document 01/20/21 11:59 [facility] (Rec: 01/20/21 12:13 [facility] [id number]) Cardio Equipment Recumbent Stepper (Sci-Fit) Duration (Minutes) 10 Resistance 2 Seat Position 9 Other 1.33 miles,frequent assist for L ankle respostion, cues adduct Gait Training Gait Activity parallel bars Description forward Device Used cues for minimal UE support Level of Assistance min UE support right on bar Surface firm Treatment Focus neutral alignment, weight- shift Comments mirror for visual feedback. Focusing on Flexing L knee/hip , increased stance time left LE, PT assisted foot/ ankle positioning while provided CGA through gait belt. Decreased tone foot contact into mid stance, stairs Description 4 stairs Device Used right railing, AFO with new heel lift Level of Assistance CG assist, cues for alternating pattern Distance/Duration 1 set 10 6 stairs Treatment Focus alternating LE pattern facilitation Comments verbal and manual cues to increase weight shift to left LE, unlock left knee, alternating pattern as able, toes pointed forward Manual Therapy Treatment Soft Tissue Mobilization L calf Body Location L gastroc, soleus, peroneals, achilles, distal HS Mobilization Type Cross-Friction,Myofascial Release,Sustained Pressure, Other Intensity/Depth Moderate Body Position Hooklying Comments (seated on scifit) Joint Mobilizations MTPs, talocrual mobs, rotation forefoot Joint L Grade II Body Position Sitting Comments good feedback response manual MWM support foot/ ankle seated on scifit w/ L knee bent, noted decrease plantar and inversion tone. Neuro Re-Education Treatment Balance Activities standing balance Details lateral and A/P weight shifts in WBOS and split stance Reps/Duration 8 min Comments no AFO, cues and manual facilitation for soft L knee , increased weight-shift left, minimal UE support on // PT-OP-R Modalities Start: 05/28/19 08:11 Freq: Status: Active Protocol: Document 12/29/20 10:30 SP (Rec: 12/29/20 11:44 SP [id number]) Electric Stimulation Electric Stimulation Functional Electric Stimulation Body Location L hand/ forearm extensors Duration (Minutes) 2 Patient Position Sitting Comments NMES- education on placement of pad for muscular feedback extension based- check self placement understanding. PT-OP-T Assessment and Plan Start: 05/28/19 08:11 Freq: Status: Active Protocol: Document 01/20/21 11:59 SAK (Rec: 01/20/21 12:13 SAK [id number]) Physical Therapy Assessment Goals Five Impairment gait speed not adequate for safe community ambulation Custodial Goal (LTG) Patient able to ambulate 300' in 6 min. TUG score no greater than 30 sec 06/02/20: 134' 08/28/20: 144', likely not as high due to new shoes and wearing old AFO because fits better in new shoes. Requires level 4 theraband for derotation of left LE into more neutral position for gait . 09/19/20: 146 ft 6 min w/ QC and Tb wrapping to LLE. 11/13/20: 153 ft CG w/ SPC 2>3 pt gait w/out metronome w/ reported L glut/ lateral leg burn pain, 2 step brief stand breaks. 11/24/20: progressing 173.7 ft using SPC, predominently 2 pt gait. TUG score 59 sec using SPC LTG Duration 01/31/21 Four Impairment requires assistance with bed mobility and transfers Short Term Goal (STG) Patient will be able to perform all bed mobility independently to improve her functional independence. 10/31/19: good goal progress 06/02/20:inconsistent, but min assist most times 11/24/20: Met goal: pt is independent in supine>sit. STG Duration goal met ( independent 11/24/20 ) [employer]ry Process Engineer Goal (LTG) Patient will be able to perform a floor transfer with SB to min assist. 5x sit to stand score in no more than 15 sec as measure of functional strength for transfers 10/31/19: max assist today 01/02/20: has not been willing to try since 10/31/19 06/02/20: does not feel strong enough to try yet. 08/28/20: max assistance required 12/02/20: remains at max assist , not recently willing to attempt floor transfer. 5x sit to stand score 26 seconds LTG Duration 01/31/21 Three Impairment weakness left UE and LE s/p CVA [employer] Process Engineer Goal (LTG) Improve functional strength in left LE, as evidenced by ability to move from sit > < stand without use of UE's. 10/31/19: OT starts tomorrow. Good progress with sit to stand, though mostly using right UE and LE 01/02/20: Improving ability to perform, able to increase weight-bearing through left LE with cues, but still some use of right UE 05/26/20: With manual and visual feedback patient able to transfer sit to stand with only CG A. 08/28/20: inconsistent ability to move sit to stand without using UE's, but able to do transfer without physical assistance 11/24/20: Goal Met LTG Duration 11/25/20 (Met Goal 11/24/20) Two Impairment balance dysfunction with high risk for falls Foundry Process Engineer Goal (LTG) Improve balance as evidenced by improvement in Tinnetti balance and gait score to low fall risk range to improve safety in the home and community. 10/31/19: remains high risk for falls 01/02/20: some improvement but still in high risk category 05/26/20: Tinetti score in high risk category 08/28/20: moderate risk for falls 12/02/20: remains in moderate risk for falls. LTG Duration 01/31/21 One Impairment requires armaan-walker for gait, limited to household gait Foundry Process Engineer Goal (LTG) Patient able to ambulate with least restrictive device for functional community distances to improve her functional independence and quality of life. 10/30/19: no progress due to Covid 19. 11/02/19: able to ambulate with quad cane but with very slow speed, household distances, very short community distances . 05/26/20: Now able to ambulate with use of single point cane and use of L4 theraband wrapped around left LE to facilitate left LE internal rotation for improved alignment. Patient unable to don the theraband on her own. Gait is for short distances and very slow at 39 ft in 2 min. 08/28/20: has demonstrated improved gait ability, still using theraband for derotation of LE for more neutral position. Able to consistenly use quad cane and is increasing stride length especially with cues. Now able to ascend and descend 4 stairs with min assist using railing. Mod assist on 6 stairs. 12/02/20: Patient ambulating with SPC, mostly household but some community distances, improved gait alignment with use of theraband for improved alignment. Patient not consistently able to ambulate community distances due to pain in her left LE, and lack of neurological control left LE. Patient may benefit from modification to her current AFO or fabrication of new AFO. 173 ft in 6 minutes LTG Duration 01/31/21 Assessment Summary Assessment Patient has difficulty trusting left LE with descending stairs, very fearful and has difficulty controlling alignment especially as done today without theraband wrap. minimal hyperextension with use of heel lift. Physical Therapy Plan Frequency and Duration Frequency of Treatment 2x/Week Duration of Treatment 12 wks Plan of Care Start Date 12/02/20 Plan of Care End Date 01/31/21 Therapeutic Interventions Therapeutic Interventions Aquatic Therapy,Balance Training,Gait Training,Home Exercise Program,Neuromuscular Re-education,Orthotic/ Prosthetic Management,Patient/ Caregiver Education,Self-Care/ Home Management,Taping, Therapeutic Activities, Therapeutic Exercises Modalities Cold Pack/Ice Massage,Hot Packs Next Visit Focus/Plan Next Note Type Treatment Note Next Visit Plan Continue PT with emphasis on left LE functional strengthening and calf and ankle flexibility and facilitation of active movement, balance, gait training without AFO as able. Manual therapy as indicated due to soft tissue tightness.
--- NOTE | 2021-01-22 14:32 | PT.OTN ---
Current Diagnoses Hemiplegia, unspecified affecting unspecified side (01/22/21) Difficulty in walking, not elsewhere classified (01/22/21) Weakness (01/22/21) History of falling (01/22/21) Physical Therapy Treatment Note PT-OP-A Visit Information Start: 05/28/19 08:11 Freq: Status: Active Protocol: Document 01/22/21 13:54 SP (Rec: 01/22/21 16:49 SP [id number]) Out-Patient Physical Therapy Visit Information Visit Information Visit Type Treatment Note Visit Note FLANGER 9 min late bringing pt back. POC expires 01/31/21. PN due 01/29 before leaves for vacation 01/30/21. Will need more appts. Visit Start Time 13:54 Visit Stop Time 14:32 Total Visit Minutes 38 Visit Number 89 Number of FLANGER Visits 1 Precautions Precautions Seizure disorder memory dysfunction PT-OP-B Current Condition Start: 05/28/19 08:11 Freq: Status: Active Protocol: Document 06/04/20 11:15 SAK (Rec: 06/05/20 16:34 SAK [id number]) Current Condition History of Current Condition Onset Date 2014 Current Complaints weakness, requires assistance with all mobility and household tasks History of Current Condition Reports that she suffered a stroke in 2014 after surgery for brain aneurysm. CVA caused weakness on the left side of her body, gait and balance difficulty, seizures. PT-OP-C Subjective Start: 05/28/19 08:11 Freq: Status: Active Protocol: Document 01/22/21 13:54 SP (Rec: 01/22/21 16:49 SP [id number]) OP-PT Subjective Patient Comments Patient Comments Pt brought night splint to assist training on how to don to be able to give improved alignment to L ankle while sleeping. Pt stated L pirformis and posterolateral thigh hurting alot today, difficulty with keeping L foot turned in. Pt stated still pretty sore from last tx in R leg doing more WB without brace and stair mgt than use to. PT-OP-D Balance Start: 05/28/19 08:11 Freq: Status: Active Protocol: Document 05/29/19 14:30 SAK (Rec: 05/30/19 14:24 SAK [id number]) OP-PT Balance Assessment Sitting Balance Static Sitting Balance Ability Good Dynamic Sitting Balance Ability Fair Standing Balance Static Standing Balance Ability Good Dynamic Standing Balance Ability Fair Device Used hemiwalker right Tinetti Balance Assessment Sitting Balance Sitting Balance Steady, safe Arising from Chair Attempts to Arise Able, requires >1 attempt Standing Balance Immediate Standing Balance Steady with support Standing Balance Steady, wide stance Nudged Response Begins to fall Standing with Eyes Closed Unsteady Turning Step Pattern Turning 360 Degrees Discontinuous steps Stability Turning 360 Degrees Unsteady, grabs/staggers Sitting Down Sitting Down Uses arms or unsteady Gait and Step Initiation of Gait Hesitancy, mult. attempts Right Foot Step Length Does not pass stance ft. Right Foot Step Height Does not clear floor Left Foot Step Length Does not pass stance foot Left Foot Step Height Does not clear floor Step Description Step Symmetry Step length not equal Gait Description Path Description Mild/moderate deviation Trunk Description Marked sway or uses aide Walking Stance Heels apart Scoring and Interpretation Tinetti Composite Score (points) 6 Interpretation of Scores High risk for falls(< 19) Herrera Fall Scale Copyright Permission PT-OP-E Functional Tests Start: 05/28/19 08:11 Freq: Status: Active Protocol: Document 05/26/20 11:15 [facility] (Rec: 05/26/20 17:04 [facility] [id number]) Functional Tests 2 Minute Walk Test Distance 39 ft Device Used single point cane Comments derotation application of level 4 theraband to decrease excess ER right LE PT-OP-G Mobility & Gait Start: 05/28/19 08:11 Freq: Status: Active Protocol: Document 05/26/20 11:15 [facility] (Rec: 05/26/20 17:04 [facility] [id number]) OP Mobility Evaluation Bed Mobility Rolling min assist to right CGA to left Supine to and from Sit min assist to right CGA to left Transfers Sit to Stand CGA to min assist without UE use Bed to Chair Transfers requires use of right UE but able to do with SBA Floor Transfers unable PT-OP-H Neuro Start: 05/28/19 08:11 Freq: Status: Active Protocol: Document 05/29/19 14:30 [facility] (Rec: 05/30/19 14:24 [facility] [id number]) Sensation Evaluation Gross Sensation Gross Sensation Left UE Impaired,Left LE Impaired Sensation Description Paresthesia,Numbness Coordination Evaluation Lower Extremity Tests Left Alternate Heel to Knee; Heel to Toe Test Moderate Impairment Heel on Boles Test Moderate Impairment Foot Tapping Test Moderate Impairment PT-OP-K Range of Motion Start: 05/28/19 08:11 Freq: Status: Active Protocol: Document 05/26/20 11:15 SAK (Rec: 05/26/20 17:04 SAK [id number]) Hip Goniometric Range of Motion Hip jake Hip ROM WFL Yes Comments actively right LE, passively left LE Knee Goniometric Range of Motion Knee jake Knee ROM WFL Yes Ankle and Foot Goniometric Range of Motion Ankle and Foot Left Passive Ankle/Foot ROM WFL No Left Active Ankle/Foot ROM WFL No PT-OP-M Strength Start: 05/28/19 08:11 Freq: Status: Active Protocol: Document 05/26/20 11:15 SAK (Rec: 05/26/20 17:04 [facility] [id number]) Hip Strength Hip Manual Muscle Testing Left Flexion (L2) 3- Fair- Extension (S1) 2 Poor Abduction 2+ Poor+ External Rotation 3- Fair- Internal Rotation 3+ Fair+ Right Flexion (L2) 4 Good Extension (S1) 4- Good- Abduction 4 Good External Rotation 3+ Fair+ Internal Rotation 4- Good- PT-OP-Q Treatments Start: 05/28/19 08:11 Freq: Status: Active Protocol: Document 01/22/21 13:54 SP (Rec: 01/22/21 16:49 SP [id number]) Cardio Equipment Recumbent Stepper (Sci-Fit) Duration (Minutes) 10 Resistance 2 Seat Position 7 Other 1.51 miles/43 calories, frequent assist for L ankle respostion, cues adduct Gait Training Gait Activity gait w/ AD no wrapping Description no theraband Device Used SPC Level of Assistance SBA Surface stable Distance/Duration 100'x2 ft AFO donned Treatment Focus L knee flexion, hip IR, wt shift to left, step-through gait Comments cued small step LLE, bigger step RLE: 2-3 pt gait and LLE awareness of adduction to decrease L hip ER. Manual Therapy Treatment Soft Tissue Mobilization L calf Body Location L gastroc, soleus, peroneals, achilles, distal HS Mobilization Type Cross-Friction,Myofascial Release,Sustained Pressure, Other Intensity/Depth Moderate Body Position Hooklying Comments (seated on scifit) Joint Mobilizations MTPs, talocrual mobs, rotation forefoot Joint L Grade II Body Position Sitting Comments good feedback response manual MWM support foot/ ankle seated on scifit w/ L knee bent, noted decrease plantar and inversion tone. Self-Care/Home Management Treatment Education Patient Education Joint Protection Other Education Extra time spent education don /doffing L ankle DF night splint and self performance. Pt able to slide on forefoot already velcroed and adding extra strap then required support to hold anterior splint against anterior lower leg for self velcro. Pt states she can have her mom help her with that part. Pt self application seated with LLE crossed over RLE. PT-OP-R Modalities Start: 05/28/19 08:11 Freq: Status: Active Protocol: Document 12/29/20 10:30 SP (Rec: 12/29/20 11:44 SP [id number]) Electric Stimulation Electric Stimulation Functional Electric Stimulation Body Location L hand/ forearm extensors Duration (Minutes) 2 Patient Position Sitting Comments NMES- education on placement of pad for muscular feedback extension based- check self placement understanding. PT-OP-T Assessment and Plan Start: 05/28/19 08:11 Freq: Status: Active Protocol: Document 01/22/21 13:54 SP (Rec: 01/22/21 16:49 SP [id number]) Physical Therapy Assessment Goals Five Impairment gait speed not adequate for safe community ambulation Fci Goal (LTG) Patient able to ambulate 300' in 6 min. TUG score no greater than 30 sec 06/02/20: 134' 08/28/20: 144', likely not as high due to new shoes and wearing old AFO because fits better in new shoes. Requires level 4 theraband for derotation of left LE into more neutral position for gait . 09/19/20: 146 ft 6 min w/ QC and Tb wrapping to LLE. 11/13/20: 153 ft CG w/ SPC 2>3 pt gait w/out metronome w/ reported L glut/ lateral leg burn pain, 2 step brief stand breaks. 11/24/20: progressing 173.7 ft using SPC, predominently 2 pt gait. TUG score 59 sec using SPC LTG Duration 01/31/21 Four Impairment requires assistance with bed mobility and transfers Short Term Goal (STG) Patient will be able to perform all bed mobility independently to improve her functional independence. 10/31/19: good goal progress 06/02/20:inconsistent, but min assist most times 11/24/20: Met goal: pt is independent in supine>sit. STG Duration goal met ( independent 11/24/20 ) [facility]ci Goal (LTG) Patient will be able to perform a floor transfer with SB to min assist. 5x sit to stand score in no more than 15 sec as measure of functional strength for transfers 10/31/19: max assist today 01/02/20: has not been willing to try since 10/31/19 06/02/20: does not feel strong enough to try yet. 08/28/20: max assistance required 12/02/20: remains at max assist , not recently willing to attempt floor transfer. 5x sit to stand score 26 seconds LTG Duration 01/31/21 Three Impairment weakness left UE and LE s/p CVA Fci Goal (LTG) Improve functional strength in left LE, as evidenced by ability to move from sit > < stand without use of UE's. 10/31/19: OT starts tomorrow. Good progress with sit to stand, though mostly using right UE and LE 01/02/20: Improving ability to perform, able to increase weight-bearing through left LE with cues, but still some use of right UE 05/26/20: With manual and visual feedback patient able to transfer sit to stand with only CG A. 08/28/20: inconsistent ability to move sit to stand without using UE's, but able to do transfer without physical assistance 11/24/20: Goal Met LTG Duration 11/25/20 (Met Goal 11/24/20) Two Impairment balance dysfunction with high risk for falls Fci Goal (LTG) Improve balance as evidenced by improvement in Tinnetti balance and gait score to low fall risk range to improve safety in the home and community. 10/31/19: remains high risk for falls 01/02/20: some improvement but still in high risk category 05/26/20: Tinetti score in high risk category 08/28/20: moderate risk for falls 12/02/20: remains in moderate risk for falls. LTG Duration 01/31/21 One Impairment requires armaan-walker for gait, limited to household gait Fci Goal (LTG) Patient able to ambulate with least restrictive device for functional community distances to improve her functional independence and quality of life. 10/30/19: no progress due to Covid 19. 11/02/19: able to ambulate with quad cane but with very slow speed, household distances, very short community distances . 05/26/20: Now able to ambulate with use of single point cane and use of L4 theraband wrapped around left LE to facilitate left LE internal rotation for improved alignment. Patient unable to don the theraband on her own. Gait is for short distances and very slow at 39 ft in 2 min. 08/28/20: has demonstrated improved gait ability, still using theraband for derotation of LE for more neutral position. Able to consistenly use quad cane and is increasing stride length especially with cues. Now able to ascend and descend 4 stairs with min assist using railing. Mod assist on 6 stairs. 12/02/20: Patient ambulating with SPC, mostly household but some community distances, improved gait alignment with use of theraband for improved alignment. Patient not consistently able to ambulate community distances due to pain in her left LE, and lack of neurological control left LE. Patient may benefit from modification to her current AFO or fabrication of new AFO. 173 ft in 6 minutes LTG Duration 01/31/21 Assessment Summary Assessment Pt stated felt more confident on use of night splint to LLE to help improve L ankle DF. Extra time spent gait quality and night splint education, didn't get to manual to L pirformis but pt stated will use ball on wall and MHP when gets home. Physical Therapy Plan Frequency and Duration Frequency of Treatment 2x/Week Duration of Treatment 12 wks Plan of Care Start Date 12/02/20 Plan of Care End Date 01/31/21 Therapeutic Interventions Therapeutic Interventions Aquatic Therapy,Balance Training,Gait Training,Home Exercise Program,Neuromuscular Re-education,Orthotic/ Prosthetic Management,Patient/ Caregiver Education,Self-Care/ Home Management,Taping, Therapeutic Activities, Therapeutic Exercises Modalities Cold Pack/Ice Massage,Hot Packs Next Visit Focus/Plan Next Note Type Treatment Note Next Visit Plan Continue PT with emphasis on left LE functional strengthening and calf and ankle flexibility and facilitation of active movement, balance, gait training without AFO as able. Manual therapy as indicated due to soft tissue tightness.
--- NOTE | 2021-01-27 17:07 | PT.OPPOC ---
Physical, Occupational & Speech Therapy At [facility] Current Diagnoses Hemiplegia, unspecified affecting unspecified side (01/27/21) Difficulty in walking, not elsewhere classified (01/27/21) Weakness (01/27/21) History of falling (01/27/21) Visit Care Team Role Provider Type KINJAL Cooper Attending Provider Advanced Snow Ranger Primary Care Provider Specialty: Family Practice Address: [address] [place] [address], [id number] Email: [email or web address] Plan Of Care PT-OP-T Assessment and Plan Start: 05/28/19 08:11 Freq: Status: Active Protocol: Document 01/27/21 12:58 SAK (Rec: 01/27/21 13:40 SAK [id number]) Physical Therapy Assessment Goals Five Impairment gait speed not adequate for safe community ambulation Half-Way Goal (LTG) Patient able to ambulate 300' in 6 min. TUG score no greater than 30 sec 06/02/20: 134' 08/28/20: 144', likely not as high due to new shoes and wearing old AFO because fits better in new shoes. Requires level 4 theraband for derotation of left LE into more neutral position for gait . 09/19/20: 146 ft 6 min w/ QC and Tb wrapping to LLE. 11/13/20: 153 ft CG w/ SPC 2>3 pt gait w/out metronome w/ reported L glut/ lateral leg burn pain, 2 step brief stand breaks. 11/24/20: progressing 173.7 ft using SPC, predominently 2 pt gait. TUG score 59 sec using SP 01/27/21: TUG 55 sec. , 6 min walk test 199.9 ft with SPC LTG Duration 03/30/21 Four Impairment requires assistance with bed mobility and transfers Short Term Goal (STG) Patient will be able to perform all bed mobility independently to improve her functional independence. 10/31/19: good goal progress 06/02/20:inconsistent, but min assist most times 11/24/20: Met goal: pt is independent in supine>sit. STG Duration goal met ( independent 11/24/20 ) Half-Way Goal (LTG) Patient will be able to perform a floor transfer with SB to min assist. 5x sit to stand score in no more than 15 sec as measure of functional strength for transfers 10/31/19: max assist today 01/02/20: has not been willing to try since 10/31/19 06/02/20: does not feel strong enough to try yet. 08/28/20: max assistance required 12/02/20: remains at max assist , not recently willing to attempt floor transfer. 5x sit to stand score 26 seconds 01/27/21: not tried recently. LTG Duration 03/30/21 Three Impairment weakness left UE and LE s/p CVA Half-Way Goal (LTG) Improve functional strength in left LE, as evidenced by ability to move from sit > < stand without use of UE's. 10/31/19: OT starts tomorrow. Good progress with sit to stand, though mostly using right UE and LE 01/02/20: Improving ability to perform, able to increase weight-bearing through left LE with cues, but still some use of right UE 05/26/20: With manual and visual feedback patient able to transfer sit to stand with only CG A. 08/28/20: inconsistent ability to move sit to stand without using UE's, but able to do transfer without physical assistance 11/24/20: Goal Met 01/27/21: more difficulty recently, having to use hands. Goal reactivated. LTG Duration 03/30/21 Two Impairment balance dysfunction with high risk for falls Half-Way Goal (LTG) Improve balance as evidenced by improvement in Tinnetti balance and gait score to low fall risk range to improve safety in the home and community. 10/31/19: remains high risk for falls 01/02/20: some improvement but still in high risk category 05/26/20: Tinetti score in high risk category 08/28/20: moderate risk for falls 12/02/20: remains in moderate risk for falls. 01/27/21: moderate risk for falls LTG Duration 03/30/21 One Impairment requires armaan-walker for gait, limited to household gait Half-Way Goal (LTG) Patient able to ambulate with least restrictive device for functional community distances to improve her functional independence and quality of life. 6/23/20: no progress due to Covid 19. 11/02/19: able to ambulate with quad cane but with very slow speed, household distances, very short community distances . 05/26/20: Now able to ambulate with use of single point cane and use of L4 theraband wrapped around left LE to facilitate left LE internal rotation for improved alignment. Patient unable to don the theraband on her own. Gait is for short distances and very slow at 39 ft in 2 min. 08/28/20: has demonstrated improved gait ability, still using theraband for derotation of LE for more neutral position. Able to consistenly use quad cane and is increasing stride length especially with cues. Now able to ascend and descend 4 stairs with min assist using railing. Mod assist on 6 stairs. 12/02/20: Patient ambulating with SPC, mostly household but some community distances, improved gait alignment with use of theraband for improved alignment. Patient not consistently able to ambulate community distances due to pain in her left LE, and lack of neurological control left LE. Patient may benefit from modification to her current AFO or fabrication of new AFO. 173 ft in 6 minutes 01/27/21: using SPC. Limitations due to left foot, knee and hip pain, right wrist pain 6 min walk test improved to 199.9 feet today LTG Duration 03/30/21 Assessment Summary Assessment Improved distance with 6 min walk test despite patient c/o discomfort, stiffness. Reducted tone with manual techniques but quickly increases again with function. Patient has been having more difficulty with sit to stand recently so re-activated that goal. Heel lift recently added to shoe under AFO assists with preventing recurvatum but also is affecting patient balance. States caregiver and her mother have difficulty stretching her calf adequately and patient also has difficulty although reminded that standing without AFO and doing small squats functionally stretches her. Patient progress is impeded some by pain throughout left LE, poor kinesthetic awareness and also by low mood. REcommmend further skilled PT to help her to improve her functional independence and safety with mobility, functional strength. Physical Therapy Plan Frequency and Duration Frequency of Treatment 2x/Week Duration of Treatment 12 wks Plan of Care Start Date 01/27/21 Plan of Care End Date 03/30/21 Therapeutic Interventions Therapeutic Interventions Aquatic Therapy,Balance Training,Gait Training,Home Exercise Program,Neuromuscular Re-education,Orthotic/ Prosthetic Management,Patient/ Caregiver Education,Self-Care/ Home Management,Taping, Therapeutic Activities, Therapeutic Exercises Modalities Cold Pack/Ice Massage,Hot Packs Next Visit Focus/Plan Next Note Type Treatment Note Next Visit Plan Continue PT with emphasis on left LE functional strengthening and calf and ankle flexibility and facilitation of active movement, balance, gait training without AFO as able. Manual therapy as indicated due to soft tissue tightness. Plan of Care Dates Plan of Care Start Date 01/27/21 Plan of Care End Date 03/30/21 Electronically Signed by: Renetta Villarreal, PT 01/28/21 0244 Please Sign and Return: I have reviewed this Plan of Care and certify that the skilled therapy services above are required to meet the patient?s needs. Physician Signature Date Printed Name and Credentials Clinical Instructor Signature Printed Name and Credentials
--- NOTE | 2021-01-28 17:06 | PT.OTRE ---
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 Cervical somatic dysfunction Chronic constipation Chronic hip pain after total replacement of left hip joint Chronic neck pain Chronic neck pain Chronic neck pain with abnormal neurologic examination Chronic pain Chronic pain of left lower extremity Chronic pain of right lower extremity Chronic right hip pain Chronic right shoulder pain Chronic right-sided thoracic back pain Constipation Cranial somatic dysfunction Dominant hemiplegia complicating stroke Dry mouth, unspecified Dysphagia Elevated BP without diagnosis of hypertension Excessive vitamin B12 intake Family history of colon cancer Fatigue Foot drop, left Generalized anxiety disorder GERD (gastroesophageal reflux disease) Headache Hyperextension deformity of left knee Hypothyroidism Iliotibial band syndrome, left leg Irritable bowel syndrome Left hand weakness Left hemiplegia Left leg weakness Major depressive disorder Mass of right axilla Menorrhagia Mixed hyperlipidemia Neuropathic pain Obesity Obesity (BMI 35.0-39.9 without comorbidity) Pelvic somatic dysfunction Right wrist pain Seasonal allergies Segmental and somatic dysfunction of abdomen and other regions Segmental and somatic dysfunction of lumbar region Segmental and somatic dysfunction of rib cage Segmental and somatic dysfunction of sacral region Segmental and somatic dysfunction of thoracic region Seizure disorder Shortness of breath Sleep apnea in adult Stiff neck Stroke Throat disorder Vision changes Vision disorder Vitamin D deficiency Weight gain finding Surgical History (Last Reviewed 12/17/20 @ 13:04 by Tyrone Petty MD) Anesthesia Brain aneurysm (~03/25/15) De Quervain's syndrome (tenosynovitis) (~1996) Visit Care Team Role Provider Type KINJAL Cooper Attending Provider Advanced Dry Goods Inspector Primary Care Provider Specialty: Family Practice Address: [address] [place] [address], [address] Email: [email or web address] Physical Therapy Re-Evaluation PT-OP-A Visit Information Start: 05/28/19 08:11 Freq: Status: Active Protocol: Document 01/27/21 12:58 SAK (Rec: 01/27/21 13:40 [facility] [id number]) Out-Patient Physical Therapy Visit Information Visit Information Visit Type Treatment Note Visit Note 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 POC expires 01/31/21. PN due 01/29 before leaves for vacation 01/30/21. Will need more appts. Visit Start Time 13:54 Visit Stop Time 14:32 Total Visit Minutes 38 Visit Number 89 Number of BACK HOE MACHINE OPERATOR Visits 0 Precautions Precautions Seizure disorder memory dysfunction PT-OP-B Current Condition Start: 05/28/19 08:11 Freq: Status: Active Protocol: Document 06/04/20 11:15 SAK (Rec: 06/05/20 16:34 [facility] [id number]) Current Condition History of Current Condition Onset Date 2014 Current Complaints weakness, requires assistance with all mobility and household tasks History of Current Condition Reports that she suffered a stroke in 2014 after surgery for brain aneurysm. CVA caused weakness on the left side of her body, gait and balance difficulty, seizures. PT-OP-C Subjective Start: 05/28/19 08:11 Freq: Status: Active Protocol: Document 01/27/21 12:58 SAK (Rec: 01/27/21 13:40 [facility] [id number]) OP-PT Subjective Patient Comments Patient Comments Patient reports having more difficulty with sit to stand, left knee hurting. PT-OP-D Balance Start: 05/28/19 08:11 Freq: Status: Active Protocol: Document 05/29/19 14:30 SAK (Rec: 05/30/19 14:24 SAK [id number]) OP-PT Balance Assessment Sitting Balance Static Sitting Balance Ability Good Dynamic Sitting Balance Ability Fair Standing Balance Static Standing Balance Ability Good Dynamic Standing Balance Ability Fair Device Used hemiwalker right Tinetti Balance Assessment Sitting Balance Sitting Balance Steady, safe Arising from Chair Attempts to Arise Able, requires >1 attempt Standing Balance Immediate Standing Balance Steady with support Standing Balance Steady, wide stance Nudged Response Begins to fall Standing with Eyes Closed Unsteady Turning Step Pattern Turning 360 Degrees Discontinuous steps Stability Turning 360 Degrees Unsteady, grabs/staggers Sitting Down Sitting Down Uses arms or unsteady Gait and Step Initiation of Gait Hesitancy, mult. attempts Right Foot Step Length Does not pass stance ft. Right Foot Step Height Does not clear floor Left Foot Step Length Does not pass stance foot Left Foot Step Height Does not clear floor Step Description Step Symmetry Step length not equal Gait Description Path Description Mild/moderate deviation Trunk Description Marked sway or uses aide Walking Stance Heels apart Scoring and Interpretation Tinetti Composite Score (points) 6 Interpretation of Scores High risk for falls(< 19) Herrera Fall Scale Copyright Permission Javier JM, Javier RM, Baldev SJ. Development of a scale to identify the fall- prone patient. Can J Aging 1989;8;366-7. Fabian Herrera (2009). Preventing patient falls. (2nd ed). [place]: Bai. PT-OP-E Functional Tests Start: 05/28/19 08:11 Freq: Status: Active Protocol: Document 05/26/20 11:15 SAK (Rec: 05/26/20 17:04 [facility] [id number]) Functional Tests 2 Minute Walk Test Distance 39 ft Device Used single point cane Comments derotation application of level 4 theraband to decrease excess ER right LE PT-OP-G Mobility & Gait Start: 05/28/19 08:11 Freq: Status: Active Protocol: Document 05/26/20 11:15 SAK (Rec: 05/26/20 17:04 [facility] [id number]) OP Mobility Evaluation Bed Mobility Rolling min assist to right CGA to left Supine to and from Sit min assist to right CGA to left Transfers Sit to Stand CGA to min assist without UE use Bed to Chair Transfers requires use of right UE but able to do with SBA Floor Transfers unable PT-OP-H Neuro Start: 05/28/19 08:11 Freq: Status: Active Protocol: Document 05/29/19 14:30 SAK (Rec: 05/30/19 14:24 [facility] [id number]) Sensation Evaluation Gross Sensation Gross Sensation Left UE Impaired,Left LE Impaired Sensation Description Paresthesia,Numbness Coordination Evaluation Lower Extremity Tests Left Alternate Heel to Knee; Heel to Toe Test Moderate Impairment Heel on Boles Test Moderate Impairment Foot Tapping Test Moderate Impairment PT-OP-K Range of Motion Start: 05/28/19 08:11 Freq: Status: Active Protocol: Document 05/26/20 11:15 SAK (Rec: 05/26/20 17:04 [facility] [id number]) Hip Goniometric Range of Motion Hip Measured in Degrees jake Hip ROM WFL Yes Comments actively right LE, passively left LE Knee Goniometric Range of Motion Knee Measured in Degrees jake Knee ROM WFL Yes Ankle and Foot Goniometric Range of Motion Ankle and Foot Measured in Degrees Left Passive Ankle/Foot ROM WFL No Left Active Ankle/Foot ROM WFL No PT-OP-M Strength Start: 05/28/19 08:11 Freq: Status: Active Protocol: Document 05/26/20 11:15 SAK (Rec: 05/26/20 17:04 SAK [id number]) Hip Strength Hip Manual Muscle Testing Left Flexion (L2) 3- Fair- Extension (S1) 2 Poor Abduction 2+ Poor+ External Rotation 3- Fair- Internal Rotation 3+ Fair+ Right Flexion (L2) 4 Good Extension (S1) 4- Good- Abduction 4 Good External Rotation 3+ Fair+ Internal Rotation 4- Good- PT-OP-Q Treatments Start: 05/28/19 08:11 Freq: Status: Active Protocol: Document 01/27/21 12:58 SAK (Rec: 01/27/21 13:40 [facility] [id number]) Cardio Equipment Recumbent Stepper (Sci-Fit) Duration (Minutes) 10 Resistance 2 Seat Position 7 Other 1.3 miles/43 calories, frequent assist for L ankle respostion, cues adduct Gait Training Gait Activity 6 min walk test Description 2 pt gait most of distance, then 3pt as tired Device Used SPC, Tb Blue wrapping Level of Assistance CG SBA as distance progressed Surface firm Treatment Focus speed and safety Manual Therapy Treatment Soft Tissue Mobilization L calf Body Location L gastroc, soleus, peroneals, achilles, distal HS Mobilization Type Cross-Friction,Myofascial Release,Sustained Pressure, Other Intensity/Depth Moderate Body Position Hooklying Comments (seated on scifit) Joint Mobilizations MTPs, talocrual mobs, rotation forefoot Joint L Grade II Body Position Sitting Comments good feedback response manual MWM support foot/ ankle seated on scifit w/ L knee bent, noted decrease plantar and inversion tone. PT-OP-R Modalities Start: 05/28/19 08:11 Freq: Status: Active Protocol: Document 12/29/20 10:30 SP (Rec: 12/29/20 11:44 SP [id number]) Electric Stimulation Electric Stimulation Functional Electric Stimulation Body Location L hand/ forearm extensors Duration (Minutes) 2 Patient Position Sitting Comments NMES- education on placement of pad for muscular feedback extension based- check self placement understanding. PT-OP-T Assessment and Plan Start: 05/28/19 08:11 Freq: Status: Active Protocol: Document 01/27/21 12:58 [facility] (Rec: 01/27/21 13:40 [facility] [id number]) Physical Therapy Assessment Goals Five Impairment gait speed not adequate for safe community ambulation Residential Goal (LTG) Patient able to ambulate 300' in 6 min. TUG score no greater than 30 sec 06/02/20: 134' 08/28/20: 144', likely not as high due to new shoes and wearing old AFO because fits better in new shoes. Requires level 4 theraband for derotation of left LE into more neutral position for gait . 09/19/20: 146 ft 6 min w/ QC and Tb wrapping to LLE. 11/13/20: 153 ft CG w/ SPC 2>3 pt gait w/out metronome w/ reported L glut/ lateral leg burn pain, 2 step brief stand breaks. 11/24/20: progressing 173.7 ft using SPC, predominently 2 pt gait. TUG score 59 sec using SP 01/27/21: TUG 55 sec. , 6 min walk test 199.9 ft with SPC LTG Duration 03/30/21 Four Impairment requires assistance with bed mobility and transfers Short Term Goal (STG) Patient will be able to perform all bed mobility independently to improve her functional independence. 10/31/19: good goal progress 06/02/20:inconsistent, but min assist most times 11/24/20: Met goal: pt is independent in supine>sit. STG Duration goal met ( independent 11/24/20 ) Residential Goal (LTG) Patient will be able to perform a floor transfer with SB to min assist. 5x sit to stand score in no more than 15 sec as measure of functional strength for transfers 10/31/19: max assist today 01/02/20: has not been willing to try since 10/31/19 06/02/20: does not feel strong enough to try yet. 08/28/20: max assistance required 12/02/20: remains at max assist , not recently willing to attempt floor transfer. 5x sit to stand score 26 seconds 01/27/21: not tried recently. LTG Duration 03/30/21 Three Impairment weakness left UE and LE s/p CVA Underwriting Director Goal (LTG) Improve functional strength in left LE, as evidenced by ability to move from sit > < stand without use of UE's. 10/31/19: OT starts tomorrow. Good progress with sit to stand, though mostly using right UE and LE 01/02/20: Improving ability to perform, able to increase weight-bearing through left LE with cues, but still some use of right UE 05/26/20: With manual and visual feedback patient able to transfer sit to stand with only CG A. 08/28/20: inconsistent ability to move sit to stand without using UE's, but able to do transfer without physical assistance 11/24/20: Goal Met 01/27/21: more difficulty recently, having to use hands. Goal reactivated. LTG Duration 03/30/21 Two Impairment balance dysfunction with high risk for falls Underwriting Director Goal (LTG) Improve balance as evidenced by improvement in Tinnetti balance and gait score to low fall risk range to improve safety in the home and community. 10/31/19: remains high risk for falls 01/02/20: some improvement but still in high risk category 05/26/20: Tinetti score in high risk category 08/28/20: moderate risk for falls 12/02/20: remains in moderate risk for falls. 01/27/21: moderate risk for falls LTG Duration 03/30/21 One Impairment requires armaan-walker for gait, limited to household gait Underwriting Director Goal (LTG) Patient able to ambulate with least restrictive device for functional community distances to improve her functional independence and quality of life. 10/30/19: no progress due to Covid 19. 11/02/19: able to ambulate with quad cane but with very slow speed, household distances, very short community distances . 05/26/20: Now able to ambulate with use of single point cane and use of L4 theraband wrapped around left LE to facilitate left LE internal rotation for improved alignment. Patient unable to don the theraband on her own. Gait is for short distances and very slow at 39 ft in 2 min. 08/28/20: has demonstrated improved gait ability, still using theraband for derotation of LE for more neutral position. Able to consistenly use quad cane and is increasing stride length especially with cues. Now able to ascend and descend 4 stairs with min assist using railing. Mod assist on 6 stairs. 12/02/20: Patient ambulating with SPC, mostly household but some community distances, improved gait alignment with use of theraband for improved alignment. Patient not consistently able to ambulate community distances due to pain in her left LE, and lack of neurological control left LE. Patient may benefit from modification to her current AFO or fabrication of new AFO. 173 ft in 6 minutes 01/27/21: using SPC. Limitations due to left foot, knee and hip pain, right wrist pain 6 min walk test improved to 199.9 feet today LTG Duration 03/30/21 Assessment Summary Assessment Improved distance with 6 min walk test despite patient c/o discomfort, stiffness. Reducted tone with manual techniques but quickly increases again with function. Patient has been having more difficulty with sit to stand recently so re-activated that goal. Heel lift recently added to shoe under AFO assists with preventing recurvatum but also is affecting patient balance. States caregiver and her mother have difficulty stretching her calf adequately and patient also has difficulty although reminded that standing without AFO and doing small squats functionally stretches her. Patient progress is impeded some by pain throughout left LE, poor kinesthetic awareness and also by low mood. REcommmend further skilled PT to help her to improve her functional independence and safety with mobility, functional strength. Physical Therapy Plan Frequency and Duration Frequency of Treatment 2x/Week Duration of Treatment 12 wks Plan of Care Start Date 01/27/21 Plan of Care End Date 03/30/21 Therapeutic Interventions Therapeutic Interventions Aquatic Therapy,Balance Training,Gait Training,Home Exercise Program,Neuromuscular Re-education,Orthotic/ Prosthetic Management,Patient/ Caregiver Education,Self-Care/ Home Management,Taping, Therapeutic Activities, Therapeutic Exercises Modalities Cold Pack/Ice Massage,Hot Packs Next Visit Focus/Plan Next Note Type Treatment Note Next Visit Plan Continue PT with emphasis on left LE functional strengthening and calf and ankle flexibility and facilitation of active movement, balance, gait training without AFO as able. Manual therapy as indicated due to soft tissue tightness.
--- NOTE | 2021-01-29 14:02 | PT.OTN ---
Current Diagnoses Hemiplegia, unspecified affecting unspecified side (01/29/21) Difficulty in walking, not elsewhere classified (01/29/21) Weakness (01/29/21) History of falling (01/29/21) Physical Therapy Treatment Note PT-OP-A Visit Information Start: 05/28/19 08:11 Freq: Status: Active Protocol: Document 01/29/21 13:00 SAK (Rec: 01/29/21 14:01 [facility] [id number]) Out-Patient Physical Therapy Visit Information Visit Information Visit Type Treatment Note Visit Start Time 13:00 Visit Stop Time 13:55 Total Visit Minutes 55 Visit Number 90 Number of PRIVACY MANAGER Visits 0 Precautions Precautions Seizure disorder memory dysfunction PT-OP-B Current Condition Start: 05/28/19 08:11 Freq: Status: Active Protocol: Document 06/04/20 11:15 SAK (Rec: 06/05/20 16:34 [facility] [id number]) Current Condition History of Current Condition Onset Date 2014 Current Complaints weakness, requires assistance with all mobility and household tasks History of Current Condition Reports that she suffered a stroke in 2014 after surgery for brain aneurysm. CVA caused weakness on the left side of her body, gait and balance difficulty, seizures. PT-OP-C Subjective Start: 05/28/19 08:11 Freq: Status: Active Protocol: Document 01/29/21 13:00 SAK (Rec: 01/29/21 14:01 [facility] [id number]) OP-PT Subjective Patient Comments Patient Comments Not feeling well, doing cleanse. PT-OP-D Balance Start: 05/28/19 08:11 Freq: Status: Active Protocol: Document 05/29/19 14:30 SAK (Rec: 05/30/19 14:24 [facility] [id number]) OP-PT Balance Assessment Sitting Balance Static Sitting Balance Ability Good Dynamic Sitting Balance Ability Fair Standing Balance Static Standing Balance Ability Good Dynamic Standing Balance Ability Fair Device Used hemiwalker right Tinetti Balance Assessment Sitting Balance Sitting Balance Steady, safe Arising from Chair Attempts to Arise Able, requires >1 attempt Standing Balance Immediate Standing Balance Steady with support Standing Balance Steady, wide stance Nudged Response Begins to fall Standing with Eyes Closed Unsteady Turning Step Pattern Turning 360 Degrees Discontinuous steps Stability Turning 360 Degrees Unsteady, grabs/staggers Sitting Down Sitting Down Uses arms or unsteady Gait and Step Initiation of Gait Hesitancy, mult. attempts Right Foot Step Length Does not pass stance ft. Right Foot Step Height Does not clear floor Left Foot Step Length Does not pass stance foot Left Foot Step Height Does not clear floor Step Description Step Symmetry Step length not equal Gait Description Path Description Mild/moderate deviation Trunk Description Marked sway or uses aide Walking Stance Heels apart Scoring and Interpretation Tinetti Composite Score (points) 6 Interpretation of Scores High risk for falls(< 19) Herrera Fall Scale Copyright Permission PT-OP-E Functional Tests Start: 05/28/19 08:11 Freq: Status: Active Protocol: Document 05/26/20 11:15 SAK (Rec: 05/26/20 17:04 [facility] [id number]) Functional Tests 2 Minute Walk Test Distance 39 ft Device Used single point cane Comments derotation application of level 4 theraband to decrease excess ER right LE PT-OP-G Mobility & Gait Start: 05/28/19 08:11 Freq: Status: Active Protocol: Document 05/26/20 11:15 SAK (Rec: 05/26/20 17:04 [facility] [id number]) OP Mobility Evaluation Bed Mobility Rolling min assist to right CGA to left Supine to and from Sit min assist to right CGA to left Transfers Sit to Stand CGA to min assist without UE use Bed to Chair Transfers requires use of right UE but able to do with SBA Floor Transfers unable PT-OP-H Neuro Start: 05/28/19 08:11 Freq: Status: Active Protocol: Document 05/29/19 14:30 [facility] (Rec: 05/30/19 14:24 [facility] [id number]) Sensation Evaluation Gross Sensation Gross Sensation Left UE Impaired,Left LE Impaired Sensation Description Paresthesia,Numbness Coordination Evaluation Lower Extremity Tests Left Alternate Heel to Knee; Heel to Toe Test Moderate Impairment Heel on Boles Test Moderate Impairment Foot Tapping Test Moderate Impairment PT-OP-K Range of Motion Start: 05/28/19 08:11 Freq: Status: Active Protocol: Document 05/26/20 11:15 SAK (Rec: 05/26/20 17:04 [facility] [id number]) Hip Goniometric Range of Motion Hip jake Hip ROM WFL Yes Comments actively right LE, passively left LE Knee Goniometric Range of Motion Knee jake Knee ROM WFL Yes Ankle and Foot Goniometric Range of Motion Ankle and Foot Left Passive Ankle/Foot ROM WFL No Left Active Ankle/Foot ROM WFL No PT-OP-M Strength Start: 05/28/19 08:11 Freq: Status: Active Protocol: Document 05/26/20 11:15 [facility] (Rec: 05/26/20 17:04 [facility] [id number]) Hip Strength Hip Manual Muscle Testing Left Flexion (L2) 3- Fair- Extension (S1) 2 Poor Abduction 2+ Poor+ External Rotation 3- Fair- Internal Rotation 3+ Fair+ Right Flexion (L2) 4 Good Extension (S1) 4- Good- Abduction 4 Good External Rotation 3+ Fair+ Internal Rotation 4- Good- PT-OP-Q Treatments Start: 05/28/19 08:11 Freq: Status: Active Protocol: Document 01/29/21 13:00 [facility] (Rec: 01/29/21 14:01 [facility] [id number]) Cardio Equipment Recumbent Stepper (Sci-Fit) Duration (Minutes) 10 Resistance 2 Seat Position 8 Other 1.3 miles/43 calories, frequent assist for L ankle respostion, cues adduct Gait Training Gait Activity forward gait at rail Description step to gait without AFO Device Used R HR Level of Assistance CGA, Min A for LLE foot flat and encourage quad/ HS fac Surface firm Distance/Duration 20 ft x3 Treatment Focus WB into LLE, DF ROM, dynamic balance Comments assisted foot/ ankle positioning while provided CGA through gait belt. Decreased tone foot contact into mid stance, states pain during this phase transition until therapist assist toe extension flat to counter act tone. stairs Description 4 stairs Device Used right railing, AFO, heel lift, theraband derotation wrap Level of Assistance CG assist, cues for alternating pattern Distance/Duration 1 set 10 6 stairs Treatment Focus alternating LE pattern facilitation Comments verbal and manual cues to increase weight shift to left LE, unlock left knee, alternating pattern as able, toes pointed forward pre-gait weight shifts Description AP, side to side Device Used none Level of Assistance CG, verbal cues Surface firm Distance/Duration rail on R Treatment Focus increased weight bearing left LE (cued >50-75%) Comments preparation phase with midline alignment followed by weight shifts, no AFO in socks on carpet Manual Therapy Treatment Soft Tissue Mobilization L calf Body Location L gastroc, soleus, peroneals, achilles, distal HS Mobilization Type Cross-Friction,Myofascial Release,Sustained Pressure, Other Intensity/Depth Moderate Body Position Hooklying Comments (seated on scifit) Joint Mobilizations MTPs, talocrual mobs, rotation forefoot Joint L Grade II Body Position Sitting Comments good feedback response manual MWM support foot/ ankle seated on scifit w/ L knee bent, noted decrease plantar and inversion tone. PT-OP-R Modalities Start: 05/28/19 08:11 Freq: Status: Active Protocol: Document 12/29/20 10:30 SP (Rec: 12/29/20 11:44 [facility] [id number]) Electric Stimulation Electric Stimulation Functional Electric Stimulation Body Location L hand/ forearm extensors Duration (Minutes) 2 Patient Position Sitting Comments NMES- education on placement of pad for muscular feedback extension based- check self placement understanding. PT-OP-T Assessment and Plan Start: 05/28/19 08:11 Freq: Status: Active Protocol: Document 01/29/21 13:00 SAK (Rec: 01/29/21 14:01 [facility] [id number]) Physical Therapy Assessment Goals Five Impairment gait speed not adequate for safe community ambulation Fdc Goal (LTG) Patient able to ambulate 300' in 6 min. TUG score no greater than 30 sec 06/02/20: 134' 08/28/20: 144', likely not as high due to new shoes and wearing old AFO because fits better in new shoes. Requires level 4 theraband for derotation of left LE into more neutral position for gait . 09/19/20: 146 ft 6 min w/ QC and Tb wrapping to LLE. 11/13/20: 153 ft CG w/ SPC 2>3 pt gait w/out metronome w/ reported L glut/ lateral leg burn pain, 2 step brief stand breaks. 11/24/20: progressing 173.7 ft using SPC, predominently 2 pt gait. TUG score 59 sec using SP 01/27/21: TUG 55 sec. , 6 min walk test 199.9 ft with SPC LTG Duration 03/30/21 Four Impairment requires assistance with bed mobility and transfers Short Term Goal (STG) Patient will be able to perform all bed mobility independently to improve her functional independence. 10/31/19: good goal progress 06/02/20:inconsistent, but min assist most times 11/24/20: Met goal: pt is independent in supine>sit. STG Duration goal met ( independent 11/24/20 ) Fdc Goal (LTG) Patient will be able to perform a floor transfer with SB to min assist. 5x sit to stand score in no more than 15 sec as measure of functional strength for transfers 10/31/19: max assist today 01/02/20: has not been willing to try since 10/31/19 06/02/20: does not feel strong enough to try yet. 08/28/20: max assistance required 12/02/20: remains at max assist , not recently willing to attempt floor transfer. 5x sit to stand score 26 seconds 01/27/21: not tried recently. LTG Duration 03/30/21 Three Impairment weakness left UE and LE s/p CVA Fdc Goal (LTG) Improve functional strength in left LE, as evidenced by ability to move from sit > < stand without use of UE's. 10/31/19: OT starts tomorrow. Good progress with sit to stand, though mostly using right UE and LE 01/02/20: Improving ability to perform, able to increase weight-bearing through left LE with cues, but still some use of right UE 05/26/20: With manual and visual feedback patient able to transfer sit to stand with only CG A. 08/28/20: inconsistent ability to move sit to stand without using UE's, but able to do transfer without physical assistance 11/24/20: Goal Met 01/27/21: more difficulty recently, having to use hands. Goal reactivated. LTG Duration 03/30/21 Two Impairment balance dysfunction with high risk for falls Grips Goal (LTG) Improve balance as evidenced by improvement in Tinnetti balance and gait score to low fall risk range to improve safety in the home and community. 10/31/19: remains high risk for falls 01/02/20: some improvement but still in high risk category 05/26/20: Tinetti score in high risk category 08/28/20: moderate risk for falls 12/02/20: remains in moderate risk for falls. 01/27/21: moderate risk for falls LTG Duration 03/30/21 One Impairment requires armaan-walker for gait, limited to household gait Fdc Goal (LTG) Patient able to ambulate with least restrictive device for functional community distances to improve her functional independence and quality of life. 10/30/19: no progress due to Covid 19. 11/02/19: able to ambulate with quad cane but with very slow speed, household distances, very short community distances . 05/26/20: Now able to ambulate with use of single point cane and use of L4 theraband wrapped around left LE to facilitate left LE internal rotation for improved alignment. Patient unable to don the theraband on her own. Gait is for short distances and very slow at 39 ft in 2 min. 08/28/20: has demonstrated improved gait ability, still using theraband for derotation of LE for more neutral position. Able to consistenly use quad cane and is increasing stride length especially with cues. Now able to ascend and descend 4 stairs with min assist using railing. Mod assist on 6 stairs. 12/02/20: Patient ambulating with SPC, mostly household but some community distances, improved gait alignment with use of theraband for improved alignment. Patient not consistently able to ambulate community distances due to pain in her left LE, and lack of neurological control left LE. Patient may benefit from modification to her current AFO or fabrication of new AFO. 173 ft in 6 minutes 01/27/21: using SPC. Limitations due to left foot, knee and hip pain, right wrist pain 6 min walk test improved to 199.9 feet today LTG Duration 03/30/21 Physical Therapy Plan Frequency and Duration Frequency of Treatment 2x/Week Duration of Treatment 12 wks Plan of Care Start Date 01/27/21 Plan of Care End Date 03/30/21 Therapeutic Interventions Therapeutic Interventions Aquatic Therapy,Balance Training,Gait Training,Home Exercise Program,Neuromuscular Re-education,Orthotic/ Prosthetic Management,Patient/ Caregiver Education,Self-Care/ Home Management,Taping, Therapeutic Activities, Therapeutic Exercises Modalities Cold Pack/Ice Massage,Hot Packs
--- NOTE | 2021-02-04 11:57 | PT.OTN ---
Current Diagnoses Hemiplegia, unspecified affecting unspecified side (02/04/21) Difficulty in walking, not elsewhere classified (02/04/21) Weakness (02/04/21) History of falling (02/04/21) Physical Therapy Treatment Note PT-OP-A Visit Information Start: 05/28/19 08:11 Freq: Status: Active Protocol: Document 02/04/21 09:44 SAK (Rec: 02/04/21 10:36 SAK [id number]) Out-Patient Physical Therapy Visit Information Visit Information Visit Type Treatment Note Visit Start Time 09:45 Visit Stop Time 10:30 Total Visit Minutes 45 Visit Number 91 Number of INCUBATOR OPERATOR Visits 0 Precautions Precautions Seizure disorder memory dysfunction PT-OP-B Current Condition Start: 05/28/19 08:11 Freq: Status: Active Protocol: Document 06/04/20 11:15 SAK (Rec: 06/05/20 16:34 SAK [id number]) Current Condition History of Current Condition Onset Date 2014 Current Complaints weakness, requires assistance with all mobility and household tasks History of Current Condition Reports that she suffered a stroke in 2014 after surgery for brain aneurysm. CVA caused weakness on the left side of her body, gait and balance difficulty, seizures. PT-OP-C Subjective Start: 05/28/19 08:11 Freq: Status: Active Protocol: Document 02/04/21 09:44 SAK (Rec: 02/04/21 10:36 SAK [id number]) OP-PT Subjective Patient Comments Patient Comments Tired after trip to [place] to see daughter and grandchildren. Was unable to use stairs due to lack of railing. Difficulty on uneven ground in yard required help. PT-OP-D Balance Start: 05/28/19 08:11 Freq: Status: Active Protocol: Document 05/29/19 14:30 SAK (Rec: 05/30/19 14:24 SAK [id number]) OP-PT Balance Assessment Sitting Balance Static Sitting Balance Ability Good Dynamic Sitting Balance Ability Fair Standing Balance Static Standing Balance Ability Good Dynamic Standing Balance Ability Fair Device [facility] right Tinetti Balance Assessment Sitting Balance Sitting Balance Steady, safe Arising from Chair Attempts to Arise Able, requires >1 attempt Standing Balance Immediate Standing Balance Steady with support Standing Balance Steady, wide stance Nudged Response Begins to fall Standing with Eyes Closed Unsteady Turning Step Pattern Turning 360 Degrees Discontinuous steps Stability Turning 360 Degrees Unsteady, grabs/staggers Sitting Down Sitting Down Uses arms or unsteady Gait and Step Initiation of Gait Hesitancy, mult. attempts Right Foot Step Length Does not pass stance ft. Right Foot Step Height Does not clear floor Left Foot Step Length Does not pass stance foot Left Foot Step Height Does not clear floor Step Description Step Symmetry Step length not equal Gait Description Path Description Mild/moderate deviation Trunk Description Marked sway or uses aide Walking Stance Heels apart Scoring and Interpretation Tinetti Composite Score (points) 6 Interpretation of Scores High risk for falls(< 19) Herrera Fall Scale Copyright Permission PT-OP-E Functional Tests Start: 05/28/19 08:11 Freq: Status: Active Protocol: Document 05/26/20 11:15 [facility] (Rec: 05/26/20 17:04 [facility] [id number]) Functional Tests 2 Minute Walk Test Distance 39 ft Device Used single point cane Comments derotation application of level 4 theraband to decrease excess ER right LE PT-OP-G Mobility & Gait Start: 05/28/19 08:11 Freq: Status: Active Protocol: Document 05/26/20 11:15 [facility] (Rec: 05/26/20 17:04 [facility] [id number]) OP Mobility Evaluation Bed Mobility Rolling min assist to right CGA to left Supine to and from Sit min assist to right CGA to left Transfers Sit to Stand CGA to min assist without UE use Bed to Chair Transfers requires use of right UE but able to do with SBA Floor Transfers unable PT-OP-H Neuro Start: 05/28/19 08:11 Freq: Status: Active Protocol: Document 05/29/19 14:30 [facility] (Rec: 05/30/19 14:24 [facility] [id number]) Sensation Evaluation Gross Sensation Gross Sensation Left UE Impaired,Left LE Impaired Sensation Description Paresthesia,Numbness Coordination Evaluation Lower Extremity Tests Left Alternate Heel to Knee; Heel to Toe Test Moderate Impairment Heel on Boles Test Moderate Impairment Foot Tapping Test Moderate Impairment PT-OP-K Range of Motion Start: 05/28/19 08:11 Freq: Status: Active Protocol: Document 05/26/20 11:15 [facility] (Rec: 05/26/20 17:04 [facility] [id number]) Hip Goniometric Range of Motion Hip jake Hip ROM WFL Yes Comments actively right LE, passively left LE Knee Goniometric Range of Motion Knee jake Knee ROM WFL Yes Ankle and Foot Goniometric Range of Motion Ankle and Foot Left Passive Ankle/Foot ROM WFL No Left Active Ankle/Foot ROM WFL No PT-OP-M Strength Start: 05/28/19 08:11 Freq: Status: Active Protocol: Document 05/26/20 11:15 [facility] (Rec: 05/26/20 17:04 [facility] [id number]) Hip Strength Hip Manual Muscle Testing Left Flexion (L2) 3- Fair- Extension (S1) 2 Poor Abduction 2+ Poor+ External Rotation 3- Fair- Internal Rotation 3+ Fair+ Right Flexion (L2) 4 Good Extension (S1) 4- Good- Abduction 4 Good External Rotation 3+ Fair+ Internal Rotation 4- Good- PT-OP-Q Treatments Start: 05/28/19 08:11 Freq: Status: Active Protocol: Document 02/04/21 09:44 [facility] (Rec: 02/04/21 10:36 [facility] [id number]) Cardio Equipment Recumbent Stepper (Sci-Fit) Duration (Minutes) 10 Resistance 2 Seat Position 10 Other 1.3 miles, frequent assist for L ankle respostion, cues adduct Therapeutic Exercises Sitting Exercises HC stretch Side left Reps/Minutes 3 x 30 Comments manual Standing Exercises SLS Reps/Minutes 2x right, 6 x left Comments mirror for visual feedback, cues to minimize right UE support staggered lunge Reps/Minutes 10x Comments leans right, right UE support, decreased ROM right ankle d/t tightness &AFO Gait Training Gait Activity parallel bars Description forward Device Used AFO left with heel lift Level of Assistance min UE support right on bar Surface firm Distance/Duration 5x laps Treatment Focus neutral alignment, weight- shift Comments mirror for visual feedback. Focusing soft left knee, increased stance time left LE, left hip muscle activation in stance, increased step length right. pre-gait weight shifts Description AP, side to side Device Used none Level of Assistance CG, verbal cues Surface firm Distance/Duration rail on R Treatment Focus increased weight bearing left LE (cued >50-75%) Comments mirror for visual feedback preparation phase with midline alignment followed by weight shifts, Manual Therapy Treatment Joint Mobilizations MTPs, talocrual mobs, rotation forefoot Joint L Grade II Body Position Sitting Comments good feedback response manual MWM support foot/ ankle seated on scifit w/ L knee bent, noted decrease plantar and inversion tone. PT-OP-R Modalities Start: 05/28/19 08:11 Freq: Status: Active Protocol: Document 12/29/20 10:30 SP (Rec: 12/29/20 11:44 SP [id number]) Electric Stimulation Electric Stimulation Functional Electric Stimulation Body Location L hand/ forearm extensors Duration (Minutes) 2 Patient Position Sitting Comments NMES- education on placement of pad for muscular feedback extension based- check self placement understanding. PT-OP-T Assessment and Plan Start: 05/28/19 08:11 Freq: Status: Active Protocol: Document 02/04/21 09:44 SAK (Rec: 02/04/21 10:36 SAK [id number]) Physical Therapy Assessment Goals Five Impairment gait speed not adequate for safe community ambulation Client Service Consultant Goal (LTG) Patient able to ambulate 300' in 6 min. TUG score no greater than 30 sec 06/02/20: 134' 08/28/20: 144', likely not as high due to new shoes and wearing old AFO because fits better in new shoes. Requires level 4 theraband for derotation of left LE into more neutral position for gait . 09/19/20: 146 ft 6 min w/ QC and Tb wrapping to LLE. 11/13/20: 153 ft CG w/ SPC 2>3 pt gait w/out metronome w/ reported L glut/ lateral leg burn pain, 2 step brief stand breaks. 11/24/20: progressing 173.7 ft using SPC, predominently 2 pt gait. TUG score 59 sec using SP 01/27/21: TUG 55 sec. , 6 min walk test 199.9 ft with SPC LTG Duration 03/30/21 Four Impairment requires assistance with bed mobility and transfers Short Term Goal (STG) Patient will be able to perform all bed mobility independently to improve her functional independence. 10/31/19: good goal progress 06/02/20:inconsistent, but min assist most times 11/24/20: Met goal: pt is independent in supine>sit. STG Duration goal met ( independent 11/24/20 ) Care Home Goal (LTG) Patient will be able to perform a floor transfer with SB to min assist. 5x sit to stand score in no more than 15 sec as measure of functional strength for transfers 10/31/19: max assist today 01/02/20: has not been willing to try since 10/31/19 06/02/20: does not feel strong enough to try yet. 08/28/20: max assistance required 12/02/20: remains at max assist , not recently willing to attempt floor transfer. 5x sit to stand score 26 seconds 01/27/21: not tried recently. LTG Duration 03/30/21 Three Impairment weakness left UE and LE s/p CVA Client Service Consultant Goal (LTG) Improve functional strength in left LE, as evidenced by ability to move from sit > < stand without use of UE's. 10/31/19: OT starts tomorrow. Good progress with sit to stand, though mostly using right UE and LE 01/02/20: Improving ability to perform, able to increase weight-bearing through left LE with cues, but still some use of right UE 05/26/20: With manual and visual feedback patient able to transfer sit to stand with only CG A. 08/28/20: inconsistent ability to move sit to stand without using UE's, but able to do transfer without physical assistance 11/24/20: Goal Met 01/27/21: more difficulty recently, having to use hands. Goal reactivated. LTG Duration 03/30/21 Two Impairment balance dysfunction with high risk for falls Client Service Consultant Goal (LTG) Improve balance as evidenced by improvement in Tinnetti balance and gait score to low fall risk range to improve safety in the home and community. 10/31/19: remains high risk for falls 01/02/20: some improvement but still in high risk category 05/26/20: Tinetti score in high risk category 08/28/20: moderate risk for falls 12/02/20: remains in moderate risk for falls. 01/27/21: moderate risk for falls LTG Duration 03/30/21 One Impairment requires armaan-walker for gait, limited to household gait Care Home Goal (LTG) Patient able to ambulate with least restrictive device for functional community distances to improve her functional independence and quality of life. 10/30/19: no progress due to Covid 19. 11/02/19: able to ambulate with quad cane but with very slow speed, household distances, very short community distances . 05/26/20: Now able to ambulate with use of single point cane and use of L4 theraband wrapped around left LE to facilitate left LE internal rotation for improved alignment. Patient unable to don the theraband on her own. Gait is for short distances and very slow at 39 ft in 2 min. 08/28/20: has demonstrated improved gait ability, still using theraband for derotation of LE for more neutral position. Able to consistenly use quad cane and is increasing stride length especially with cues. Now able to ascend and descend 4 stairs with min assist using railing. Mod assist on 6 stairs. 12/02/20: Patient ambulating with SPC, mostly household but some community distances, improved gait alignment with use of theraband for improved alignment. Patient not consistently able to ambulate community distances due to pain in her left LE, and lack of neurological control left LE. Patient may benefit from modification to her current AFO or fabrication of new AFO. 173 ft in 6 minutes 01/27/21: using SPC. Limitations due to left foot, knee and hip pain, right wrist pain 6 min walk test improved to 199.9 feet today LTG Duration 03/30/21 Assessment Summary Assessment No AFO for Sci-Fit but otherwise after manual techniques and Sci-Fit spent rest of session with weight- shifting, SLS, and gait in parallel bars with mirror for visual feedback. Benefits highly from mirror for visual feedback for weight-shift and knee control due to poor kinesthetic awareness. Able to progress to minimal UE support, and even a few steps without UE support, and also demonstrating improved sleep. Physical Therapy Plan Frequency and Duration Frequency of Treatment 2x/Week Duration of Treatment 12 wks Plan of Care Start Date 01/27/21 Plan of Care End Date 03/30/21 Therapeutic Interventions Therapeutic Interventions Aquatic Therapy,Balance Training,Gait Training,Home Exercise Program,Neuromuscular Re-education,Orthotic/ Prosthetic Management,Patient/ Caregiver Education,Self-Care/ Home Management,Taping, Therapeutic Activities, Therapeutic Exercises Modalities Cold Pack/Ice Massage,Hot Packs Next Visit Focus/Plan Next Note Type Treatment Note Next Visit Plan Emphasis on gait training and SLS with mirror for visual feedback. Resume use of metronome for gait training
--- NOTE | 2021-02-06 10:32 | PT.OTN ---
Current Diagnoses Hemiplegia, unspecified affecting unspecified side (02/06/21) Difficulty in walking, not elsewhere classified (02/06/21) Weakness (02/06/21) History of falling (02/06/21) Physical Therapy Treatment Note PT-OP-A Visit Information Start: 05/28/19 08:11 Freq: Status: Active Protocol: Document 02/06/21 09:47 SP (Rec: 02/06/21 10:36 SP [id number]) Out-Patient Physical Therapy Visit Information Visit Information Visit Type Treatment Note Visit Start Time 09:47 Visit Stop Time 10:32 Total Visit Minutes 45 Visit Number 92 Number of API DEVELOPER Visits 1 Precautions Precautions Seizure disorder memory dysfunction PT-OP-B Current Condition Start: 05/28/19 08:11 Freq: Status: Active Protocol: Document 06/04/20 11:15 SAK (Rec: 06/05/20 16:34 SAK [id number]) Current Condition History of Current Condition Onset Date 2014 Current Complaints weakness, requires assistance with all mobility and household tasks History of Current Condition Reports that she suffered a stroke in 2014 after surgery for brain aneurysm. CVA caused weakness on the left side of her body, gait and balance difficulty, seizures. PT-OP-C Subjective Start: 05/28/19 08:11 Freq: Status: Active Protocol: Document 02/06/21 09:47 SP (Rec: 02/06/21 10:36 SP [id number]) OP-PT Subjective Patient Comments Patient Comments Pt reports lateral R LE hurting/ burning today. PT-OP-D Balance Start: 05/28/19 08:11 Freq: Status: Active Protocol: Document 05/29/19 14:30 SAK (Rec: 05/30/19 14:24 SAK [id number]) OP-PT Balance Assessment Sitting Balance Static Sitting Balance Ability Good Dynamic Sitting Balance Ability Fair Standing Balance Static Standing Balance Ability Good Dynamic Standing Balance Ability Fair Device Used hemiwalker right Tinetti Balance Assessment Sitting Balance Sitting Balance Steady, safe Arising from Chair Attempts to Arise Able, requires >1 attempt Standing Balance Immediate Standing Balance Steady with support Standing Balance Steady, wide stance Nudged Response Begins to fall Standing with Eyes Closed Unsteady Turning Step Pattern Turning 360 Degrees Discontinuous steps Stability Turning 360 Degrees Unsteady, grabs/staggers Sitting Down Sitting Down Uses arms or unsteady Gait and Step Initiation of Gait Hesitancy, mult. attempts Right Foot Step Length Does not pass stance ft. Right Foot Step Height Does not clear floor Left Foot Step Length Does not pass stance foot Left Foot Step Height Does not clear floor Step Description Step Symmetry Step length not equal Gait Description Path Description Mild/moderate deviation Trunk Description Marked sway or uses aide Walking Stance Heels apart Scoring and Interpretation Tinetti Composite Score (points) 6 Interpretation of Scores High risk for falls(< 19) Herrera Fall Scale Copyright Permission PT-OP-E Functional Tests Start: 05/28/19 08:11 Freq: Status: Active Protocol: Document 05/26/20 11:15 [facility] (Rec: 05/26/20 17:04 [facility] [id number]) Functional Tests 2 Minute Walk Test Distance 39 ft Device Used single point cane Comments derotation application of level 4 theraband to decrease excess ER right LE PT-OP-G Mobility & Gait Start: 05/28/19 08:11 Freq: Status: Active Protocol: Document 05/26/20 11:15 [facility] (Rec: 05/26/20 17:04 [facility] [id number]) OP Mobility Evaluation Bed Mobility Rolling min assist to right CGA to left Supine to and from Sit min assist to right CGA to left Transfers Sit to Stand CGA to min assist without UE use Bed to Chair Transfers requires use of right UE but able to do with SBA Floor Transfers unable PT-OP-H Neuro Start: 05/28/19 08:11 Freq: Status: Active Protocol: Document 05/29/19 14:30 [facility] (Rec: 05/30/19 14:24 [facility] [id number]) Sensation Evaluation Gross Sensation Gross Sensation Left UE Impaired,Left LE Impaired Sensation Description Paresthesia,Numbness Coordination Evaluation Lower Extremity Tests Left Alternate Heel to Knee; Heel to Toe Test Moderate Impairment Heel on Boles Test Moderate Impairment Foot Tapping Test Moderate Impairment PT-OP-K Range of Motion Start: 05/28/19 08:11 Freq: Status: Active Protocol: Document 05/26/20 11:15 SAK (Rec: 05/26/20 17:04 [facility] [id number]) Hip Goniometric Range of Motion Hip jake Hip ROM WFL Yes Comments actively right LE, passively left LE Knee Goniometric Range of Motion Knee jake Knee ROM WFL Yes Ankle and Foot Goniometric Range of Motion Ankle and Foot Left Passive Ankle/Foot ROM WFL No Left Active Ankle/Foot ROM WFL No PT-OP-M Strength Start: 05/28/19 08:11 Freq: Status: Active Protocol: Document 05/26/20 11:15 SAK (Rec: 05/26/20 17:04 SAK [id number]) Hip Strength Hip Manual Muscle Testing Left Flexion (L2) 3- Fair- Extension (S1) 2 Poor Abduction 2+ Poor+ External Rotation 3- Fair- Internal Rotation 3+ Fair+ Right Flexion (L2) 4 Good Extension (S1) 4- Good- Abduction 4 Good External Rotation 3+ Fair+ Internal Rotation 4- Good- PT-OP-Q Treatments Start: 05/28/19 08:11 Freq: Status: Active Protocol: Document 02/06/21 09:47 SP (Rec: 02/06/21 10:36 SP [id number]) Cardio Equipment Recumbent Elliptical (BiodPeonut) Duration (Minutes) 10 Resistance 1 Seat Position 7 seen Other no AFO, 840 total steps ( scifit not available)- occ assist foot align Therapeutic Exercises Standing Exercises sit to stands Equipment Used AFO donned Reps/Minutes 5x Comments cues for scoot forw, wider MIKA and L quad activation Gait Training Gait Activity forward gait at rail Description step to gait with AFO Device Used Therapist arm for contact, GB, TB wrapping LLE Level of Assistance 5%A> 25%A RUE therapist arm, use of GB, encouraged LLE hip IR, quad/ HS fac Surface firm Distance/Duration 50 ft Treatment Focus WB into LLE, dynamic balance Comments Provided 5-25%A through gait belt from front on R side. Intermittent cues for LLE positioning more front and equal stride. Pt increased R trunk lean and increased contact RUE WB on therapist arm as distance progressed. Pt stated nervous but became more confident of support to allow feedback RUE support doing on SPC on own. parallel bars Description forward Device Used AFO left with heel lift, Level of Assistance min> light R UE support right on bar then on therapist arm Surface firm Distance/Duration 5x laps Treatment Focus neutral alignment, weight- shift Comments difficulty without glasses today to see in mirror for visual feedback. Focusing soft left knee, increased stance time left LE, left hip muscle activation in stance, cued equal stride length and narrowing MIKA (L out to side more). gait w/ AD no wrapping Description w/ TB wrapping w/ metronome 60bpm Device Used SPC Level of Assistance SBA Surface stable Distance/Duration 80 ft Treatment Focus L knee flexion, hip IR, wt shift to left, step-through gait Comments cued small step LLE, bigger step RLE: 2 pt gait and LLE awareness of adduction to decrease L hip ER. Metronome 60bpm, challenged double vision objects near feet due to not having glasses on today . 1 Description level surface Device Used single point cane, AFO and TB wrapping Level of Assistance SBA, cues Surface indoor carpet, firm Distance/Duration 50'x4 Treatment Focus L hip IR and decrease L knee hyperextension, pacing, metronome for pacing Comments 1. L4 TB tied at left shoe, wrapped around clockwise LE with gait belt to assist with internal rotation foot/ hip facilitation to allow LLE proper alignment. Manual Therapy Treatment Soft Tissue Mobilization L calf Body Location L gastroc, soleus, peroneals, achilles, distal HS Mobilization Type Cross-Friction,Myofascial Release,Sustained Pressure, Other Intensity/Depth Moderate Body Position Hooklying Comments (seated on biodex) ITB, peroneal Body Location R peroneal Mobilization Type Cross-Friction Intensity/Depth Moderate Body Position Sitting Comments good tolerance, it makes it feel less tight, much better. Joint Mobilizations MTPs, talocrual mobs, rotation forefoot Joint L Grade II Body Position Sitting Comments good feedback response manual MWM support foot/ ankle seated on biodex w/ L knee bent, noted decrease plantar and inversion tone. PT-OP-R Modalities Start: 05/28/19 08:11 Freq: Status: Active Protocol: Document 12/29/20 10:30 SP (Rec: 12/29/20 11:44 SP [id number]) Electric Stimulation Electric Stimulation Functional Electric Stimulation Body Location L hand/ forearm extensors Duration (Minutes) 2 Patient Position Sitting Comments NMES- education on placement of pad for muscular feedback extension based- check self placement understanding. PT-OP-T Assessment and Plan Start: 05/28/19 08:11 Freq: Status: Active Protocol: Document 02/06/21 09:47 SP (Rec: 02/06/21 10:36 SP [id number]) Physical Therapy Assessment Goals Five Impairment gait speed not adequate for safe community ambulation Correction Goal (LTG) Patient able to ambulate 300' in 6 min. TUG score no greater than 30 sec 06/02/20: 134' 08/28/20: 144', likely not as high due to new shoes and wearing old AFO because fits better in new shoes. Requires level 4 theraband for derotation of left LE into more neutral position for gait . 09/19/20: 146 ft 6 min w/ QC and Tb wrapping to LLE. 11/13/20: 153 ft CG w/ SPC 2>3 pt gait w/out metronome w/ reported L glut/ lateral leg burn pain, 2 step brief stand breaks. 11/24/20: progressing 173.7 ft using SPC, predominently 2 pt gait. TUG score 59 sec using SP 01/27/21: TUG 55 sec. , 6 min walk test 199.9 ft with SPC LTG Duration 03/30/21 Four Impairment requires assistance with bed mobility and transfers Short Term Goal (STG) Patient will be able to perform all bed mobility independently to improve her functional independence. 10/31/19: good goal progress 06/02/20:inconsistent, but min assist most times 11/24/20: Met goal: pt is independent in supine>sit. STG Duration goal met ( independent 11/24/20 ) Laundry Housekeeper Goal (LTG) Patient will be able to perform a floor transfer with SB to min assist. 5x sit to stand score in no more than 15 sec as measure of functional strength for transfers 10/31/19: max assist today 01/02/20: has not been willing to try since 10/31/19 06/02/20: does not feel strong enough to try yet. 08/28/20: max assistance required 12/02/20: remains at max assist , not recently willing to attempt floor transfer. 5x sit to stand score 26 seconds 01/27/21: not tried recently. LTG Duration 03/30/21 Three Impairment weakness left UE and LE s/p CVA Correction Goal (LTG) Improve functional strength in left LE, as evidenced by ability to move from sit > < stand without use of UE's. 10/31/19: OT starts tomorrow. Good progress with sit to stand, though mostly using right UE and LE 01/02/20: Improving ability to perform, able to increase weight-bearing through left LE with cues, but still some use of right UE 05/26/20: With manual and visual feedback patient able to transfer sit to stand with only CG A. 08/28/20: inconsistent ability to move sit to stand without using UE's, but able to do transfer without physical assistance 11/24/20: Goal Met 01/27/21: more difficulty recently, having to use hands. Goal reactivated. LTG Duration 03/30/21 Two Impairment balance dysfunction with high risk for falls Correction Goal (LTG) Improve balance as evidenced by improvement in Tinnetti balance and gait score to low fall risk range to improve safety in the home and community. 10/31/19: remains high risk for falls 01/02/20: some improvement but still in high risk category 05/26/20: Tinetti score in high risk category 08/28/20: moderate risk for falls 12/02/20: remains in moderate risk for falls. 01/27/21: moderate risk for falls LTG Duration 03/30/21 One Impairment requires armaan-walker for gait, limited to household gait Correction Goal (LTG) Patient able to ambulate with least restrictive device for functional community distances to improve her functional independence and quality of life. 10/30/19: no progress due to Covid 19. 11/02/19: able to ambulate with quad cane but with very slow speed, household distances, very short community distances . 05/26/20: Now able to ambulate with use of single point cane and use of L4 theraband wrapped around left LE to facilitate left LE internal rotation for improved alignment. Patient unable to don the theraband on her own. Gait is for short distances and very slow at 39 ft in 2 min. 08/28/20: has demonstrated improved gait ability, still using theraband for derotation of LE for more neutral position. Able to consistenly use quad cane and is increasing stride length especially with cues. Now able to ascend and descend 4 stairs with min assist using railing. Mod assist on 6 stairs. 12/02/20: Patient ambulating with SPC, mostly household but some community distances, improved gait alignment with use of theraband for improved alignment. Patient not consistently able to ambulate community distances due to pain in her left LE, and lack of neurological control left LE. Patient may benefit from modification to her current AFO or fabrication of new AFO. 173 ft in 6 minutes 01/27/21: using SPC. Limitations due to left foot, knee and hip pain, right wrist pain 6 min walk test improved to 199.9 feet today LTG Duration 03/30/21 Assessment Summary Assessment Pt improved gait in//bar light contact 1 //bar with cues for L hip IR (without wrapping) AFO donned. Difficulty seeing mirror due to forgot glasses today. Improved slower pacing and decrease L knee hyper ext with alignment cues. Pt more confident and able to complete gait to front scheduling desk w/ contact on therapist arm 5 %> 25%A for self awareness WB doing on SPC. Intermittent cues for trunk alignment to decrease R trunk lean and LLE forward and decrease out to side (L). Challenged no glasses today to see self mirror and metronome safety obstacle navigations to [place] . Physical Therapy Plan Frequency and Duration Frequency of Treatment 2x/Week Duration of Treatment 12 wks Plan of Care Start Date 01/27/21 Plan of Care End Date 03/30/21 Therapeutic Interventions Therapeutic Interventions Aquatic Therapy,Balance Training,Gait Training,Home Exercise Program,Neuromuscular Re-education,Orthotic/ Prosthetic Management,Patient/ Caregiver Education,Self-Care/ Home Management,Taping, Therapeutic Activities, Therapeutic Exercises Modalities Cold Pack/Ice Massage,Hot Packs Next Visit Focus/Plan Next Note Type Treatment Note Next Visit Plan Emphasis on gait training and SLS with mirror for visual feedback. Resume use of metronome 60bpm for gait training Ed gym bike set up.
--- NOTE | 2021-02-09 13:48 | PT.OTN ---
Current Diagnoses Hemiplegia, unspecified affecting unspecified side (02/09/21) Difficulty in walking, not elsewhere classified (02/09/21) Weakness (02/09/21) History of falling (02/09/21) Physical Therapy Treatment Note PT-OP-A Visit Information Start: 05/28/19 08:11 Freq: Status: Active Protocol: Document 02/09/21 13:01 SP (Rec: 02/09/21 13:52 SP [id number]) Out-Patient Physical Therapy Visit Information Visit Information Visit Type Treatment Note Visit Start Time 13:01 Visit Stop Time 13:48 Total Visit Minutes 47 Visit Number 93 Number of WELDER REPAIR Visits 2 Precautions Precautions Seizure disorder memory dysfunction PT-OP-B Current Condition Start: 05/28/19 08:11 Freq: Status: Active Protocol: Document 06/04/20 11:15 SAK (Rec: 06/05/20 16:34 SAK [id number]) Current Condition History of Current Condition Onset Date 2014 Current Complaints weakness, requires assistance with all mobility and household tasks History of Current Condition Reports that she suffered a stroke in 2014 after surgery for brain aneurysm. CVA caused weakness on the left side of her body, gait and balance difficulty, seizures. PT-OP-C Subjective Start: 05/28/19 08:11 Freq: Status: Active Protocol: Document 02/09/21 13:01 SP (Rec: 02/09/21 13:52 SP [id number]) OP-PT Subjective Patient Comments Patient Comments Pt reports doing self L ankle and hip stretching. PT-OP-D Balance Start: 05/28/19 08:11 Freq: Status: Active Protocol: Document 05/29/19 14:30 SAK (Rec: 05/30/19 14:24 SAK [id number]) OP-PT Balance Assessment Sitting Balance Static Sitting Balance Ability Good Dynamic Sitting Balance Ability Fair Standing Balance Static Standing Balance Ability Good Dynamic Standing Balance Ability Fair Device Used hemiwalker right Tinetti Balance Assessment Sitting Balance Sitting Balance Steady, safe Arising from Chair Attempts to Arise Able, requires >1 attempt Standing Balance Immediate Standing Balance Steady with support Standing Balance Steady, wide stance Nudged Response Begins to fall Standing with Eyes Closed Unsteady Turning Step Pattern Turning 360 Degrees Discontinuous steps Stability Turning 360 Degrees Unsteady, grabs/staggers Sitting Down Sitting Down Uses arms or unsteady Gait and Step Initiation of Gait Hesitancy, mult. attempts Right Foot Step Length Does not pass stance ft. Right Foot Step Height Does not clear floor Left Foot Step Length Does not pass stance foot Left Foot Step Height Does not clear floor Step Description Step Symmetry Step length not equal Gait Description Path Description Mild/moderate deviation Trunk Description Marked sway or uses aide Walking Stance Heels apart Scoring and Interpretation Tinetti Composite Score (points) 6 Interpretation of Scores High risk for falls(< 19) Herrera Fall Scale Copyright Permission PT-OP-E Functional Tests Start: 05/28/19 08:11 Freq: Status: Active Protocol: Document 05/26/20 11:15 [facility] (Rec: 05/26/20 17:04 [facility] [id number]) Functional Tests 2 Minute Walk Test Distance 39 ft Device Used single point cane Comments derotation application of level 4 theraband to decrease excess ER right LE PT-OP-G Mobility & Gait Start: 05/28/19 08:11 Freq: Status: Active Protocol: Document 05/26/20 11:15 [facility] (Rec: 05/26/20 17:04 [facility] [id number]) OP Mobility Evaluation Bed Mobility Rolling min assist to right CGA to left Supine to and from Sit min assist to right CGA to left Transfers Sit to Stand CGA to min assist without UE use Bed to Chair Transfers requires use of right UE but able to do with SBA Floor Transfers unable PT-OP-H Neuro Start: 05/28/19 08:11 Freq: Status: Active Protocol: Document 05/29/19 14:30 [facility] (Rec: 05/30/19 14:24 [facility] [id number]) Sensation Evaluation Gross Sensation Gross Sensation Left UE Impaired,Left LE Impaired Sensation Description Paresthesia,Numbness Coordination Evaluation Lower Extremity Tests Left Alternate Heel to Knee; Heel to Toe Test Moderate Impairment Heel on Boles Test Moderate Impairment Foot Tapping Test Moderate Impairment PT-OP-K Range of Motion Start: 05/28/19 08:11 Freq: Status: Active Protocol: Document 05/26/20 11:15 [facility] (Rec: 05/26/20 17:04 [facility] [id number]) Hip Goniometric Range of Motion Hip jake Hip ROM WFL Yes Comments actively right LE, passively left LE Knee Goniometric Range of Motion Knee jake Knee ROM WFL Yes Ankle and Foot Goniometric Range of Motion Ankle and Foot Left Passive Ankle/Foot ROM WFL No Left Active Ankle/Foot ROM WFL No PT-OP-M Strength Start: 05/28/19 08:11 Freq: Status: Active Protocol: Document 05/26/20 11:15 SAK (Rec: 05/26/20 17:04 SAK [id number]) Hip Strength Hip Manual Muscle Testing Left Flexion (L2) 3- Fair- Extension (S1) 2 Poor Abduction 2+ Poor+ External Rotation 3- Fair- Internal Rotation 3+ Fair+ Right Flexion (L2) 4 Good Extension (S1) 4- Good- Abduction 4 Good External Rotation 3+ Fair+ Internal Rotation 4- Good- PT-OP-Q Treatments Start: 05/28/19 08:11 Freq: Status: Active Protocol: Document 02/09/21 13:01 SP (Rec: 02/09/21 13:52 SP [id number]) Cardio Equipment Recumbent Stepper (Sci-Fit) Duration (Minutes) 10 Resistance 2 Seat Position 10 Other 1.17 miles, frequent assist for L ankle respostion, cues adduct Gait Training Gait Activity 6 min walk test Description 2 pt gait most of distance, then 3pt as tired Device Used SPC, Tb Blue wrapping Level of Assistance SBA as distance progressed Surface firm Distance/Duration 178 ft Treatment Focus speed and safety Comments Cued for discussion focus on gait enrike 60 bpm. Manual Therapy Treatment Soft Tissue Mobilization L calf Body Location L gastroc, soleus, peroneals. Mobilization Type Cross-Friction,Myofascial Release,Sustained Pressure, Other Intensity/Depth Moderate Body Position Sitting Comments (seated on scifit) Joint Mobilizations MTPs, talocrual mobs, rotation forefoot Joint L Grade II Body Position Sitting Comments good feedback response manual MWM support foot/ ankle seated on biodex w/ L knee bent, noted decrease plantar and inversion tone. Neuro Re-Education Treatment Balance Activities Modified SLS Details Modified SLS on LLE Surface firm> Equipment RUE WB on //bar, RLE touch LLE Reps/Duration 3x 30 sec Comments cued L quad facilitation/ knee extension soft knee and glut fac pelvis over knee/ wt shift over LLE and decrease RUE heavy WB on //bar. Noted wt shift equal and rock into ball of foot, stable L knee superwomen take off. PT-OP-R Modalities Start: 05/28/19 08:11 Freq: Status: Active Protocol: Document 12/29/20 10:30 SP (Rec: 12/29/20 11:44 SP [id number]) Electric Stimulation Electric Stimulation Functional Electric Stimulation Body Location L hand/ forearm extensors Duration (Minutes) 2 Patient Position Sitting Comments NMES- education on placement of pad for muscular feedback extension based- check self placement understanding. PT-OP-T Assessment and Plan Start: 05/28/19 08:11 Freq: Status: Active Protocol: Document 02/09/21 13:01 SP (Rec: 02/09/21 13:52 SP [id number]) Physical Therapy Assessment Goals Five Impairment gait speed not adequate for safe community ambulation Search Engine Optimization Specialist Goal (LTG) Patient able to ambulate 300' in 6 min. TUG score no greater than 30 sec 06/02/20: 134' 08/28/20: 144', likely not as high due to new shoes and wearing old AFO because fits better in new shoes. Requires level 4 theraband for derotation of left LE into more neutral position for gait . 09/19/20: 146 ft 6 min w/ QC and Tb wrapping to LLE. 11/13/20: 153 ft CG w/ SPC 2>3 pt gait w/out metronome w/ reported L glut/ lateral leg burn pain, 2 step brief stand breaks. 11/24/20: progressing 173.7 ft using SPC, predominently 2 pt gait. TUG score 59 sec using SP 01/27/21: TUG 55 sec. , 6 min walk test 199.9 ft with SPC LTG Duration 03/30/21 Four Impairment requires assistance with bed mobility and transfers Short Term Goal (STG) Patient will be able to perform all bed mobility independently to improve her functional independence. 10/31/19: good goal progress 06/02/20:inconsistent, but min assist most times 11/24/20: Met goal: pt is independent in supine>sit. STG Duration goal met ( independent 11/24/20 ) Search Engine Optimization Specialist Goal (LTG) Patient will be able to perform a floor transfer with SB to min assist. 5x sit to stand score in no more than 15 sec as measure of functional strength for transfers 10/31/19: max assist today 01/02/20: has not been willing to try since 10/31/19 06/02/20: does not feel strong enough to try yet. 08/28/20: max assistance required 12/02/20: remains at max assist , not recently willing to attempt floor transfer. 5x sit to stand score 26 seconds 01/27/21: not tried recently. LTG Duration 03/30/21 Three Impairment weakness left UE and LE s/p CVA Usp Goal (LTG) Improve functional strength in left LE, as evidenced by ability to move from sit > < stand without use of UE's. 10/31/19: OT starts tomorrow. Good progress with sit to stand, though mostly using right UE and LE 01/02/20: Improving ability to perform, able to increase weight-bearing through left LE with cues, but still some use of right UE 05/26/20: With manual and visual feedback patient able to transfer sit to stand with only CG A. 08/28/20: inconsistent ability to move sit to stand without using UE's, but able to do transfer without physical assistance 11/24/20: Goal Met 01/27/21: more difficulty recently, having to use hands. Goal reactivated. LTG Duration 03/30/21 Two Impairment balance dysfunction with high risk for falls Usp Goal (LTG) Improve balance as evidenced by improvement in Tinnetti balance and gait score to low fall risk range to improve safety in the home and community. 10/31/19: remains high risk for falls 01/02/20: some improvement but still in high risk category 05/26/20: Tinetti score in high risk category 08/28/20: moderate risk for falls 12/02/20: remains in moderate risk for falls. 01/27/21: moderate risk for falls LTG Duration 03/30/21 One Impairment requires armaan-walker for gait, limited to household gait Search Engine Optimization Specialist Goal (LTG) Patient able to ambulate with least restrictive device for functional community distances to improve her functional independence and quality of life. 10/30/19: no progress due to Covid 19. 11/02/19: able to ambulate with quad cane but with very slow speed, household distances, very short community distances . 05/26/20: Now able to ambulate with use of single point cane and use of L4 theraband wrapped around left LE to facilitate left LE internal rotation for improved alignment. Patient unable to don the theraband on her own. Gait is for short distances and very slow at 39 ft in 2 min. 08/28/20: has demonstrated improved gait ability, still using theraband for derotation of LE for more neutral position. Able to consistenly use quad cane and is increasing stride length especially with cues. Now able to ascend and descend 4 stairs with min assist using railing. Mod assist on 6 stairs. 12/02/20: Patient ambulating with SPC, mostly household but some community distances, improved gait alignment with use of theraband for improved alignment. Patient not consistently able to ambulate community distances due to pain in her left LE, and lack of neurological control left LE. Patient may benefit from modification to her current AFO or fabrication of new AFO. 173 ft in 6 minutes 01/27/21: using SPC. Limitations due to left foot, knee and hip pain, right wrist pain 6 min walk test improved to 199.9 feet today LTG Duration 03/30/21 Assessment Summary Assessment Pt improved in equal wt shift wt acceptance into LLE wt shift pretty equal and no UE support w/ glut hip extension fac with mirror self feedback spacial awareness. Discussed bringing regular shoe for LLE support on bike. Continue education on set up for getting on bike so potentially use bike at [facility] with mother to assist her set up BLE on weekends if available in future. Physical Therapy Plan Frequency and Duration Frequency of Treatment 2x/Week Duration of Treatment 12 wks Plan of Care Start Date 01/27/21 Plan of Care End Date 03/30/21 Therapeutic Interventions Therapeutic Interventions Aquatic Therapy,Balance Training,Gait Training,Home Exercise Program,Neuromuscular Re-education,Orthotic/ Prosthetic Management,Patient/ Caregiver Education,Self-Care/ Home Management,Taping, Therapeutic Activities, Therapeutic Exercises Modalities Cold Pack/Ice Massage,Hot Packs Next Visit Focus/Plan Next Note Type Treatment Note Next Visit Plan POC: Emphasis on gait training and SLS with mirror for visual feedback. Resume use of metronome 60bpm for gait training. Continue Ed gym bike set up.
--- NOTE | 2021-02-18 12:19 | PT.OTN ---
Current Diagnoses Hemiplegia, unspecified affecting unspecified side (02/18/21) Difficulty in walking, not elsewhere classified (02/18/21) Weakness (02/18/21) History of falling (02/18/21) Physical Therapy Treatment Note PT-OP-A Visit Information Start: 05/28/19 08:11 Freq: Status: Active Protocol: Document 02/18/21 11:20 SAK (Rec: 02/18/21 12:03 [facility] [id number]) Out-Patient Physical Therapy Visit Information Visit Information Visit Type Treatment Note Visit Start Time 11:15 Visit Number 94 Number of CORN GRINDER Visits 0 Precautions Precautions Seizure disorder memory dysfunction PT-OP-B Current Condition Start: 05/28/19 08:11 Freq: Status: Active Protocol: Document 06/04/20 11:15 SAK (Rec: 06/05/20 16:34 [facility] [id number]) Current Condition History of Current Condition Onset Date 2014 Current Complaints weakness, requires assistance with all mobility and household tasks History of Current Condition Reports that she suffered a stroke in 2014 after surgery for brain aneurysm. CVA caused weakness on the left side of her body, gait and balance difficulty, seizures. PT-OP-C Subjective Start: 05/28/19 08:11 Freq: Status: Active Protocol: Document 02/18/21 11:20 SAK (Rec: 02/18/21 12:03 [facility] [id number]) OP-PT Subjective Patient Comments Patient Comments Patient reports feels IT band is pulling on her hip today. Frustrated by continued difficulty with sit to stand PT-OP-D Balance Start: 05/28/19 08:11 Freq: Status: Active Protocol: Document 05/29/19 14:30 SAK (Rec: 05/30/19 14:24 [facility] [id number]) OP-PT Balance Assessment Sitting Balance Static Sitting Balance Ability Good Dynamic Sitting Balance Ability Fair Standing Balance Static Standing Balance Ability Good Dynamic Standing Balance Ability Fair Device Used hemiwalker right Tinetti Balance Assessment Sitting Balance Sitting Balance Steady, safe Arising from Chair Attempts to Arise Able, requires >1 attempt Standing Balance Immediate Standing Balance Steady with support Standing Balance Steady, wide stance Nudged Response Begins to fall Standing with Eyes Closed Unsteady Turning Step Pattern Turning 360 Degrees Discontinuous steps Stability Turning 360 Degrees Unsteady, grabs/staggers Sitting Down Sitting Down Uses arms or unsteady Gait and Step Initiation of Gait Hesitancy, mult. attempts Right Foot Step Length Does not pass stance ft. Right Foot Step Height Does not clear floor Left Foot Step Length Does not pass stance foot Left Foot Step Height Does not clear floor Step Description Step Symmetry Step length not equal Gait Description Path Description Mild/moderate deviation Trunk Description Marked sway or uses aide Walking Stance Heels apart Scoring and Interpretation Tinetti Composite Score (points) 6 Interpretation of Scores High risk for falls(< 19) Herrera Fall Scale Copyright Permission PT-OP-E Functional Tests Start: 05/28/19 08:11 Freq: Status: Active Protocol: Document 05/26/20 11:15 [facility] (Rec: 05/26/20 17:04 [facility] [id number]) Functional Tests 2 Minute Walk Test Distance 39 ft Device Used single point cane Comments derotation application of level 4 theraband to decrease excess ER right LE PT-OP-G Mobility & Gait Start: 05/28/19 08:11 Freq: Status: Active Protocol: Document 05/26/20 11:15 [facility] (Rec: 05/26/20 17:04 [facility] [id number]) OP Mobility Evaluation Bed Mobility Rolling min assist to right CGA to left Supine to and from Sit min assist to right CGA to left Transfers Sit to Stand CGA to min assist without UE use Bed to Chair Transfers requires use of right UE but able to do with SBA Floor Transfers unable PT-OP-H Neuro Start: 05/28/19 08:11 Freq: Status: Active Protocol: Document 05/29/19 14:30 [facility] (Rec: 05/30/19 14:24 [facility] [id number]) Sensation Evaluation Gross Sensation Gross Sensation Left UE Impaired,Left LE Impaired Sensation Description Paresthesia,Numbness Coordination Evaluation Lower Extremity Tests Left Alternate Heel to Knee; Heel to Toe Test Moderate Impairment Heel on Boles Test Moderate Impairment Foot Tapping Test Moderate Impairment PT-OP-K Range of Motion Start: 05/28/19 08:11 Freq: Status: Active Protocol: Document 05/26/20 11:15 [facility] (Rec: 05/26/20 17:04 [facility] [id number]) Hip Goniometric Range of Motion Hip jake Hip ROM WFL Yes Comments actively right LE, passively left LE Knee Goniometric Range of Motion Knee jake Knee ROM WFL Yes Ankle and Foot Goniometric Range of Motion Ankle and Foot Left Passive Ankle/Foot ROM WFL No Left Active Ankle/Foot ROM WFL No PT-OP-M Strength Start: 05/28/19 08:11 Freq: Status: Active Protocol: Document 05/26/20 11:15 [facility] (Rec: 05/26/20 17:04 [facility] [id number]) Hip Strength Hip Manual Muscle Testing Left Flexion (L2) 3- Fair- Extension (S1) 2 Poor Abduction 2+ Poor+ External Rotation 3- Fair- Internal Rotation 3+ Fair+ Right Flexion (L2) 4 Good Extension (S1) 4- Good- Abduction 4 Good External Rotation 3+ Fair+ Internal Rotation 4- Good- PT-OP-Q Treatments Start: 05/28/19 08:11 Freq: Status: Active Protocol: Document 02/18/21 11:20 [facility] (Rec: 02/18/21 12:03 [facility] [id number]) Cardio Equipment Recumbent Stepper (Sci-Fit) Duration (Minutes) 10 Resistance 2 Seat Position 10 Other 1.17 1.25 miles, frequent assist for L ankle respostion, cues adduct Therapeutic Exercises Standing Exercises sit to stands Equipment Used AFO donned Reps/Minutes 5x Comments cues for scoot forw, wider MIKA and L quad activation Gait Training Gait Activity parallel bars Description forward, backward Device Used AFO left with heel lift, Level of Assistance min> light R UE support right on bar, a couple steps without UE support Surface firm Distance/Duration 3 laps Treatment Focus neutral alignment, weight- shift Comments difficulty without glasses today to see in mirror for visual feedback. Focusing soft left knee, increased stance time left LE, left hip muscle activation in stance, cued equal stride length and narrowing MIKA (L out to side more). gait w/ AD no wrapping Description w/ TB wrapping w/ metronome 60bpm Device Used SPC Level of Assistance SBA Surface stable Distance/Duration 80 ft Treatment Focus L knee flexion, hip IR, wt shift to left, step-through gait Comments cued small step LLE, bigger step RLE: 2 pt gait and LLE awareness of adduction to decrease L hip ER. Metronome 60bpm 1 Description level surface Device Used single point cane, AFO and TB wrapping Level of Assistance SBA, cues Surface indoor carpet, firm Distance/Duration 75' Treatment Focus L hip IR and decrease L knee hyperextension, pacing, metronome 60bpm Comments 1. L4 TB tied at left shoe, wrapped around clockwise LE with gait belt to assist with internal rotation foot/ hip facilitation to allow LLE proper alignment. Manual Therapy Treatment Soft Tissue Mobilization L calf Body Location L gastroc, soleus, peroneals. Mobilization Type Cross-Friction,Myofascial Release,Sustained Pressure, Other Intensity/Depth Moderate Body Position Sitting Comments (seated on scifit) ITB, peroneal Body Location R peroneal Mobilization Type Cross-Friction Intensity/Depth Moderate Body Position Sitting Comments good tolerance, it makes it feel less tight, much better. Joint Mobilizations MTPs, talocrual mobs, rotation forefoot Joint L Grade II Body Position Sitting Comments good feedback response manual MWM support foot/ ankle seated on biodex w/ L knee bent, noted decrease plantar and inversion tone. Neuro Re-Education Treatment Balance Activities Modified SLS Details Modified SLS on LLE Surface firm> Equipment RUE WB on //bar, RLE touch LLE Reps/Duration 3x 30 sec Comments cued L quad facilitation/ knee extension soft knee and glut fac pelvis over knee/ wt shift over LLE and decrease RUE heavy WB on //bar. Noted wt shift equal and rock into ball of foot, stable L knee superwomen take off. PT-OP-R Modalities Start: 05/28/19 08:11 Freq: Status: Active Protocol: Document 12/29/20 10:30 SP (Rec: 12/29/20 11:44 SP [id number]) Electric Stimulation Electric Stimulation Functional Electric Stimulation Body Location L hand/ forearm extensors Duration (Minutes) 2 Patient Position Sitting Comments NMES- education on placement of pad for muscular feedback extension based- check self placement understanding. PT-OP-T Assessment and Plan Start: 05/28/19 08:11 Freq: Status: Active Protocol: Document 02/18/21 11:20 SAK (Rec: 02/18/21 12:03 [facility]AK [id number]) Physical Therapy Assessment Goals Five Impairment gait speed not adequate for safe community ambulation Pumper Helper Goal (LTG) Patient able to ambulate 300' in 6 min. TUG score no greater than 30 sec 06/02/20: 134' 08/28/20: 144', likely not as high due to new shoes and wearing old AFO because fits better in new shoes. Requires level 4 theraband for derotation of left LE into more neutral position for gait . 09/19/20: 146 ft 6 min w/ QC and Tb wrapping to LLE. 11/13/20: 153 ft CG w/ SPC 2>3 pt gait w/out metronome w/ reported L glut/ lateral leg burn pain, 2 step brief stand breaks. 11/24/20: progressing 173.7 ft using SPC, predominently 2 pt gait. TUG score 59 sec using SP 01/27/21: TUG 55 sec. , 6 min walk test 199.9 ft with SPC LTG Duration 03/30/21 Four Impairment requires assistance with bed mobility and transfers Short Term Goal (STG) Patient will be able to perform all bed mobility independently to improve her functional independence. 10/31/19: good goal progress 06/02/20:inconsistent, but min assist most times 11/24/20: Met goal: pt is independent in supine>sit. STG Duration goal met ( independent 11/24/20 ) Mcc Goal (LTG) Patient will be able to perform a floor transfer with SB to min assist. 5x sit to stand score in no more than 15 sec as measure of functional strength for transfers 10/31/19: max assist today 01/02/20: has not been willing to try since 10/31/19 06/02/20: does not feel strong enough to try yet. 08/28/20: max assistance required 12/02/20: remains at max assist , not recently willing to attempt floor transfer. 5x sit to stand score 26 seconds 01/27/21: not tried recently. LTG Duration 03/30/21 Three Impairment weakness left UE and LE s/p CVA Pumper Helper Goal (LTG) Improve functional strength in left LE, as evidenced by ability to move from sit > < stand without use of UE's. 10/31/19: OT starts tomorrow. Good progress with sit to stand, though mostly using right UE and LE 01/02/20: Improving ability to perform, able to increase weight-bearing through left LE with cues, but still some use of right UE 05/26/20: With manual and visual feedback patient able to transfer sit to stand with only CG A. 08/28/20: inconsistent ability to move sit to stand without using UE's, but able to do transfer without physical assistance 11/24/20: Goal Met 01/27/21: more difficulty recently, having to use hands. Goal reactivated. LTG Duration 03/30/21 Two Impairment balance dysfunction with high risk for falls Pumper Helper Goal (LTG) Improve balance as evidenced by improvement in Tinnetti balance and gait score to low fall risk range to improve safety in the home and community. 10/31/19: remains high risk for falls 01/02/20: some improvement but still in high risk category 05/26/20: Tinetti score in high risk category 08/28/20: moderate risk for falls 12/02/20: remains in moderate risk for falls. 01/27/21: moderate risk for falls LTG Duration 03/30/21 One Impairment requires armaan-walker for gait, limited to household gait Pumper Helper Goal (LTG) Patient able to ambulate with least restrictive device for functional community distances to improve her functional independence and quality of life. 10/30/19: no progress due to Covid 19. 11/02/19: able to ambulate with quad cane but with very slow speed, household distances, very short community distances . 05/26/20: Now able to ambulate with use of single point cane and use of L4 theraband wrapped around left LE to facilitate left LE internal rotation for improved alignment. Patient unable to don the theraband on her own. Gait is for short distances and very slow at 39 ft in 2 min. 08/28/20: has demonstrated improved gait ability, still using theraband for derotation of LE for more neutral position. Able to consistenly use quad cane and is increasing stride length especially with cues. Now able to ascend and descend 4 stairs with min assist using railing. Mod assist on 6 stairs. 12/02/20: Patient ambulating with SPC, mostly household but some community distances, improved gait alignment with use of theraband for improved alignment. Patient not consistently able to ambulate community distances due to pain in her left LE, and lack of neurological control left LE. Patient may benefit from modification to her current AFO or fabrication of new AFO. 173 ft in 6 minutes 01/27/21: using SPC. Limitations due to left foot, knee and hip pain, right wrist pain 6 min walk test improved to 199.9 feet today LTG Duration 03/30/21 Assessment Summary Assessment Improved weight shift to left with use of mirror for visual feedback, hyperextended at left knee only 1x with gait in parallel bars without AFO and slow gait with focus on forward/IR hip, bent knee with weight shift onto left LE. Cues for both feet back for sit to stand transfers. Physical Therapy Plan Frequency and Duration Frequency of Treatment 2x/Week Duration of Treatment 12 wks Plan of Care Start Date 01/27/21 Plan of Care End Date 03/30/21 Therapeutic Interventions Therapeutic Interventions Aquatic Therapy,Balance Training,Gait Training,Home Exercise Program,Neuromuscular Re-education,Orthotic/ Prosthetic Management,Patient/ Caregiver Education,Self-Care/ Home Management,Taping, Therapeutic Activities, Therapeutic Exercises Modalities Cold Pack/Ice Massage,Hot Packs Next Visit Focus/Plan Next Note Type Treatment Note Next Visit Plan Continue pt. ed for bike set up, encourage practice weight shift at home without AFO standing with chair behind for safety. SLS, gait training, use of mirror for visual feedback.
--- NOTE | 2021-02-20 08:22 | PT-OP ANOTE ---
Pt not feeling well, called at [phone] to cancel todays appt.
--- NOTE | 2021-02-23 13:13 | PT.OTN ---
Current Diagnoses Hemiplegia, unspecified affecting unspecified side (02/23/21) Difficulty in walking, not elsewhere classified (02/23/21) Weakness (02/23/21) History of falling (02/23/21) Physical Therapy Treatment Note PT-OP-A Visit Information Start: 05/28/19 08:11 Freq: Status: Active Protocol: Document 02/23/21 11:24 SAK (Rec: 02/23/21 11:34 SAK [id number]) Out-Patient Physical Therapy Visit Information Visit Information Visit Type Treatment Note Visit Start Time 11:15 Visit Stop Time 12:02 Total Visit Minutes 47 Visit Number 94 Number of [employer] Visits 0 Precautions Precautions Seizure disorder memory dysfunction PT-OP-B Current Condition Start: 05/28/19 08:11 Freq: Status: Active Protocol: Document 06/04/20 11:15 SAK (Rec: 06/05/20 16:34 SAK [id number]) Current Condition History of Current Condition Onset Date 2014 Current Complaints weakness, requires assistance with all mobility and household tasks History of Current Condition Reports that she suffered a stroke in 2014 after surgery for brain aneurysm. CVA caused weakness on the left side of her body, gait and balance difficulty, seizures. PT-OP-C Subjective Start: 05/28/19 08:11 Freq: Status: Active Protocol: Document 02/23/21 11:24 SAK (Rec: 02/23/21 11:34 [facility] [id number]) OP-PT Subjective Patient Comments Patient Comments I can see the progress. Reports she and her mom will be moving to [place] in next few months. Has telehealth apptointment with neurologist tomorrow; Dr. Montanez at [facility]. PT-OP-D Balance Start: 05/28/19 08:11 Freq: Status: Active Protocol: Document 05/29/19 14:30 SAK (Rec: 05/30/19 14:24 SAK [id number]) OP-PT Balance Assessment Sitting Balance Static Sitting Balance Ability Good Dynamic Sitting Balance Ability Fair Standing Balance Static Standing Balance Ability Good Dynamic Standing Balance Ability Fair Device [facility] right Tinetti Balance Assessment Sitting Balance Sitting Balance Steady, safe Arising from Chair Attempts to Arise Able, requires >1 attempt Standing Balance Immediate Standing Balance Steady with support Standing Balance Steady, wide stance Nudged Response Begins to fall Standing with Eyes Closed Unsteady Turning Step Pattern Turning 360 Degrees Discontinuous steps Stability Turning 360 Degrees Unsteady, grabs/staggers Sitting Down Sitting Down Uses arms or unsteady Gait and Step Initiation of Gait Hesitancy, mult. attempts Right Foot Step Length Does not pass stance ft. Right Foot Step Height Does not clear floor Left Foot Step Length Does not pass stance foot Left Foot Step Height Does not clear floor Step Description Step Symmetry Step length not equal Gait Description Path Description Mild/moderate deviation Trunk Description Marked sway or uses aide Walking Stance Heels apart Scoring and Interpretation Tinetti Composite Score (points) 6 Interpretation of Scores High risk for falls(< 19) Herrera Fall Scale Copyright Permission PT-OP-E Functional Tests Start: 05/28/19 08:11 Freq: Status: Active Protocol: Document 05/26/20 11:15 [facility] (Rec: 05/26/20 17:04 [facility] [id number]) Functional Tests 2 Minute Walk Test Distance 39 ft Device Used single point cane Comments derotation application of level 4 theraband to decrease excess ER right LE PT-OP-G Mobility & Gait Start: 05/28/19 08:11 Freq: Status: Active Protocol: Document 05/26/20 11:15 [facility] (Rec: 05/26/20 17:04 [facility] [id number]) OP Mobility Evaluation Bed Mobility Rolling min assist to right CGA to left Supine to and from Sit min assist to right CGA to left Transfers Sit to Stand CGA to min assist without UE use Bed to Chair Transfers requires use of right UE but able to do with SBA Floor Transfers unable PT-OP-H Neuro Start: 05/28/19 08:11 Freq: Status: Active Protocol: Document 05/29/19 14:30 [facility] (Rec: 05/30/19 14:24 [facility] [id number]) Sensation Evaluation Gross Sensation Gross Sensation Left UE Impaired,Left LE Impaired Sensation Description Paresthesia,Numbness Coordination Evaluation Lower Extremity Tests Left Alternate Heel to Knee; Heel to Toe Test Moderate Impairment Heel on Boles Test Moderate Impairment Foot Tapping Test Moderate Impairment PT-OP-K Range of Motion Start: 05/28/19 08:11 Freq: Status: Active Protocol: Document 05/26/20 11:15 [facility] (Rec: 05/26/20 17:04 [facility] [id number]) Hip Goniometric Range of Motion Hip jake Hip ROM WFL Yes Comments actively right LE, passively left LE Knee Goniometric Range of Motion Knee jake Knee ROM WFL Yes Ankle and Foot Goniometric Range of Motion Ankle and Foot Left Passive Ankle/Foot ROM WFL No Left Active Ankle/Foot ROM WFL No PT-OP-M Strength Start: 05/28/19 08:11 Freq: Status: Active Protocol: Document 05/26/20 11:15 [facility] (Rec: 05/26/20 17:04 [facility] [id number]) Hip Strength Hip Manual Muscle Testing Left Flexion (L2) 3- Fair- Extension (S1) 2 Poor Abduction 2+ Poor+ External Rotation 3- Fair- Internal Rotation 3+ Fair+ Right Flexion (L2) 4 Good Extension (S1) 4- Good- Abduction 4 Good External Rotation 3+ Fair+ Internal Rotation 4- Good- PT-OP-Q Treatments Start: 05/28/19 08:11 Freq: Status: Active Protocol: Document 02/23/21 11:24 [facility] (Rec: 02/23/21 11:34 [facility] [id number]) Cardio Equipment Recumbent Stepper (Sci-Fit) Duration (Minutes) 10 Resistance 2 Seat Position 10 Other 1.276 miles, frequent assist for L ankle respostion, cues adduct Therapeutic Exercises Standing Exercises sit to stands Equipment Used AFO donned Reps/Minutes 5x Comments cues for scoot forw, wider MIKA and L quad activation Gait Training Gait Activity parallel bars Description forward, backward Device Used AFO left with heel lift, Level of Assistance min> light R UE support right on bar, a couple steps without UE support Surface firm Distance/Duration 3 laps Treatment Focus neutral alignment, weight- shift Comments Focusing soft left knee, increased stance time left LE, left hip muscle activation in stance, cued equal stride length and narrowing MIKA gait w/ AD no wrapping Description w/ TB wrapping w/ metronome 60bpm Device Used SPC Level of Assistance SBA Surface stable Distance/Duration 90 ft Treatment Focus L knee flexion, hip IR, wt shift to left, step-through gait Comments cued small step LLE, bigger step RLE: 2 pt gait and LLE awareness of adduction to decrease L hip ER. Metronome 60bpm 1 Description level surface Device Used single point cane, AFO and TB wrapping Level of Assistance SBA, cues Surface indoor carpet, firm Distance/Duration 75' Treatment Focus L hip IR and decrease L knee hyperextension, pacing, metronome 60bpm Comments 1. L4 TB tied at left shoe, wrapped around clockwise LE with gait belt to assist with internal rotation foot/ hip facilitation to allow LLE proper alignment. Manual Therapy Treatment Soft Tissue Mobilization L calf Body Location L gastroc, soleus, peroneals. Mobilization Type Cross-Friction,Myofascial Release,Sustained Pressure, Other Intensity/Depth Moderate Body Position Sitting Comments (seated on scifit) ITB, peroneal Body Location R peroneal Mobilization Type Cross-Friction Intensity/Depth Moderate Body Position Sitting Comments good tolerance, it makes it feel less tight, much better. Joint Mobilizations MTPs, talocrual mobs, rotation forefoot Joint L Grade II Body Position Sitting Comments good feedback response manual MWM support foot/ ankle seated on biodex w/ L knee bent, noted decrease plantar and inversion tone. Neuro Re-Education Treatment Balance Activities hurdles Equipment parallel bars Reps/Duration 6x2 Comments tall green hurdles Modified SLS Details Modified SLS on LLE Surface firm> Equipment RUE WB on //bar, RLE touch LLE Reps/Duration 3x 30 sec Comments cued L quad facilitation/ knee extension soft knee and glut fac pelvis over knee/ wt shift over LLE and decrease RUE heavy WB on //bar. Noted wt shift equal and rock into ball of foot, stable L knee superwomen take off. Self-Care/Home Management Treatment Education Other Education continue to try to increase standing time without AFO, work on weight-shifting, soft knee. PT-OP-R Modalities Start: 05/28/19 08:11 Freq: Status: Active Protocol: Document 12/29/20 10:30 SP (Rec: 12/29/20 11:44 SP [id number]) Electric Stimulation Electric Stimulation Functional Electric Stimulation Body Location L hand/ forearm extensors Duration (Minutes) 2 Patient Position Sitting Comments NMES- education on placement of pad for muscular feedback extension based- check self placement understanding. PT-OP-T Assessment and Plan Start: 05/28/19 08:11 Freq: Status: Active Protocol: Document 02/23/21 11:24 SAK (Rec: 02/23/21 11:34 SAK [id number]) Physical Therapy Assessment Goals Five Impairment gait speed not adequate for safe community ambulation Technical Support Representative Goal (LTG) Patient able to ambulate 300' in 6 min. TUG score no greater than 30 sec 06/02/20: 134' 08/28/20: 144', likely not as high due to new shoes and wearing old AFO because fits better in new shoes. Requires level 4 theraband for derotation of left LE into more neutral position for gait . 09/19/20: 146 ft 6 min w/ QC and Tb wrapping to LLE. 11/13/20: 153 ft CG w/ SPC 2>3 pt gait w/out metronome w/ reported L glut/ lateral leg burn pain, 2 step brief stand breaks. 11/24/20: progressing 173.7 ft using SPC, predominently 2 pt gait. TUG score 59 sec using SP 01/27/21: TUG 55 sec. , 6 min walk test 199.9 ft with SPC LTG Duration 03/30/21 Four Impairment requires assistance with bed mobility and transfers Short Term Goal (STG) Patient will be able to perform all bed mobility independently to improve her functional independence. 10/31/19: good goal progress 06/02/20:inconsistent, but min assist most times 11/24/20: Met goal: pt is independent in supine>sit. STG Duration goal met ( independent 11/24/20 ) Technical Support Representative Goal (LTG) Patient will be able to perform a floor transfer with SB to min assist. 5x sit to stand score in no more than 15 sec as measure of functional strength for transfers 10/31/19: max assist today 01/02/20: has not been willing to try since 10/31/19 06/02/20: does not feel strong enough to try yet. 08/28/20: max assistance required 12/02/20: remains at max assist , not recently willing to attempt floor transfer. 5x sit to stand score 26 seconds 01/27/21: not tried recently. LTG Duration 03/30/21 Three Impairment weakness left UE and LE s/p CVA Longterm Goal (LTG) Improve functional strength in left LE, as evidenced by ability to move from sit > < stand without use of UE's. 10/31/19: OT starts tomorrow. Good progress with sit to stand, though mostly using right UE and LE 01/02/20: Improving ability to perform, able to increase weight-bearing through left LE with cues, but still some use of right UE 05/26/20: With manual and visual feedback patient able to transfer sit to stand with only CG A. 08/28/20: inconsistent ability to move sit to stand without using UE's, but able to do transfer without physical assistance 11/24/20: Goal Met 01/27/21: more difficulty recently, having to use hands. Goal reactivated. LTG Duration 03/30/21 Two Impairment balance dysfunction with high risk for falls Technical Support Representative Goal (LTG) Improve balance as evidenced by improvement in Tinnetti balance and gait score to low fall risk range to improve safety in the home and community. 10/31/19: remains high risk for falls 01/02/20: some improvement but still in high risk category 05/26/20: Tinetti score in high risk category 08/28/20: moderate risk for falls 12/02/20: remains in moderate risk for falls. 01/27/21: moderate risk for falls LTG Duration 03/30/21 One Impairment requires armaan-walker for gait, limited to household gait Technical Support Representative Goal (LTG) Patient able to ambulate with least restrictive device for functional community distances to improve her functional independence and quality of life. 10/30/19: no progress due to Covid 19. 11/02/19: able to ambulate with quad cane but with very slow speed, household distances, very short community distances . 05/26/20: Now able to ambulate with use of single point cane and use of L4 theraband wrapped around left LE to facilitate left LE internal rotation for improved alignment. Patient unable to don the theraband on her own. Gait is for short distances and very slow at 39 ft in 2 min. 08/28/20: has demonstrated improved gait ability, still using theraband for derotation of LE for more neutral position. Able to consistenly use quad cane and is increasing stride length especially with cues. Now able to ascend and descend 4 stairs with min assist using railing. Mod assist on 6 stairs. 12/02/20: Patient ambulating with SPC, mostly household but some community distances, improved gait alignment with use of theraband for improved alignment. Patient not consistently able to ambulate community distances due to pain in her left LE, and lack of neurological control left LE. Patient may benefit from modification to her current AFO or fabrication of new AFO. 173 ft in 6 minutes 01/27/21: using SPC. Limitations due to left foot, knee and hip pain, right wrist pain 6 min walk test improved to 199.9 feet today LTG Duration 03/30/21 Assessment Summary Assessment Increasing distance on Sci-Fit , improved step length with right LE noted today, able to step past the left part of the time. Physical Therapy Plan Frequency and Duration Frequency of Treatment 2x/Week Duration of Treatment 12 wks Plan of Care Start Date 01/27/21 Plan of Care End Date 03/30/21 Therapeutic Interventions Therapeutic Interventions Aquatic Therapy,Balance Training,Gait Training,Home Exercise Program,Neuromuscular Re-education,Orthotic/ Prosthetic Management,Patient/ Caregiver Education,Self-Care/ Home Management,Taping, Therapeutic Activities, Therapeutic Exercises Modalities Cold Pack/Ice Massage,Hot Packs Next Visit Focus/Plan Next Note Type Treatment Note Next Visit Plan Continue pt. ed for bike set up, encourage practice weight shift at home without AFO standing with chair behind for safety. SLS, gait training, use of mirror for visual feedback.
--- NOTE | 2021-02-25 12:11 | PT.OTN ---
Current Diagnoses Hemiplegia, unspecified affecting unspecified side (02/25/21) Difficulty in walking, not elsewhere classified (02/25/21) Weakness (02/25/21) History of falling (02/25/21) Physical Therapy Treatment Note PT-OP-A Visit Information Start: 05/28/19 08:11 Freq: Status: Active Protocol: Document 02/25/21 11:26 [facility]AK (Rec: 02/25/21 12:10 [facility] [id number]) Out-Patient Physical Therapy Visit Information Visit Information Visit Type Treatment Note Visit Start Time 11:15 Visit Stop Time 12:02 Total Visit Minutes 47 Visit Number 95 Number of AGRICULTURAL PLOW OPERATOR Visits 0 Precautions Precautions Seizure disorder memory dysfunction PT-OP-B Current Condition Start: 05/28/19 08:11 Freq: Status: Active Protocol: Document 06/04/20 11:15 SAK (Rec: 06/05/20 16:34 [facility] [id number]) Current Condition History of Current Condition Onset Date 2014 Current Complaints weakness, requires assistance with all mobility and household tasks History of Current Condition Reports that she suffered a stroke in 2014 after surgery for brain aneurysm. CVA caused weakness on the left side of her body, gait and balance difficulty, seizures. PT-OP-C Subjective Start: 05/28/19 08:11 Freq: Status: Active Protocol: Document 02/25/21 11:26 SAK (Rec: 02/25/21 12:10 [facility] [id number]) OP-PT Subjective Patient Comments Patient Comments Reports doubled Topomax dose last night per neurologist, thinks she may have had a seizure. Contacted neurologist. Had some dizziness this am, feels foggy this am. PT-OP-D Balance Start: 05/28/19 08:11 Freq: Status: Active Protocol: Document 05/29/19 14:30 [facility]AK (Rec: 05/30/19 14:24 [facility] [id number]) OP-PT Balance Assessment Sitting Balance Static Sitting Balance Ability Good Dynamic Sitting Balance Ability Fair Standing Balance Static Standing Balance Ability Good Dynamic Standing Balance Ability Fair Device [facility] Tinetti Balance Assessment Sitting Balance Sitting Balance Steady, safe Arising from Chair Attempts to Arise Able, requires >1 attempt Standing Balance Immediate Standing Balance Steady with support Standing Balance Steady, wide stance Nudged Response Begins to fall Standing with Eyes Closed Unsteady Turning Step Pattern Turning 360 Degrees Discontinuous steps Stability Turning 360 Degrees Unsteady, grabs/staggers Sitting Down Sitting Down Uses arms or unsteady Gait and Step Initiation of Gait Hesitancy, mult. attempts Right Foot Step Length Does not pass stance ft. Right Foot Step Height Does not clear floor Left Foot Step Length Does not pass stance foot Left Foot Step Height Does not clear floor Step Description Step Symmetry Step length not equal Gait Description Path Description Mild/moderate deviation Trunk Description Marked sway or uses aide Walking Stance Heels apart Scoring and Interpretation Tinetti Composite Score (points) 6 Interpretation of Scores High risk for falls(< 19) Herrera Fall Scale Copyright Permission PT-OP-E Functional Tests Start: 05/28/19 08:11 Freq: Status: Active Protocol: Document 05/26/20 11:15 [facility] (Rec: 05/26/20 17:04 [facility] [id number]) Functional Tests 2 Minute Walk Test Distance 39 ft Device Used single point cane Comments derotation application of level 4 theraband to decrease excess ER right LE PT-OP-G Mobility & Gait Start: 05/28/19 08:11 Freq: Status: Active Protocol: Document 05/26/20 11:15 [facility] (Rec: 05/26/20 17:04 [facility] [id number]) OP Mobility Evaluation Bed Mobility Rolling min assist to right CGA to left Supine to and from Sit min assist to right CGA to left Transfers Sit to Stand CGA to min assist without UE use Bed to Chair Transfers requires use of right UE but able to do with SBA Floor Transfers unable PT-OP-H Neuro Start: 05/28/19 08:11 Freq: Status: Active Protocol: Document 05/29/19 14:30 [facility] (Rec: 05/30/19 14:24 [facility] [id number]) Sensation Evaluation Gross Sensation Gross Sensation Left UE Impaired,Left LE Impaired Sensation Description Paresthesia,Numbness Coordination Evaluation Lower Extremity Tests Left Alternate Heel to Knee; Heel to Toe Test Moderate Impairment Heel on Boles Test Moderate Impairment Foot Tapping Test Moderate Impairment PT-OP-K Range of Motion Start: 05/28/19 08:11 Freq: Status: Active Protocol: Document 05/26/20 11:15 [facility] (Rec: 05/26/20 17:04 [facility] [id number]) Hip Goniometric Range of Motion Hip jake Hip ROM WFL Yes Comments actively right LE, passively left LE Knee Goniometric Range of Motion Knee jake Knee ROM WFL Yes Ankle and Foot Goniometric Range of Motion Ankle and Foot Left Passive Ankle/Foot ROM WFL No Left Active Ankle/Foot ROM WFL No PT-OP-M Strength Start: 05/28/19 08:11 Freq: Status: Active Protocol: Document 05/26/20 11:15 [facility] (Rec: 05/26/20 17:04 [facility] [id number]) Hip Strength Hip Manual Muscle Testing Left Flexion (L2) 3- Fair- Extension (S1) 2 Poor Abduction 2+ Poor+ External Rotation 3- Fair- Internal Rotation 3+ Fair+ Right Flexion (L2) 4 Good Extension (S1) 4- Good- Abduction 4 Good External Rotation 3+ Fair+ Internal Rotation 4- Good- PT-OP-Q Treatments Start: 05/28/19 08:11 Freq: Status: Active Protocol: Document 02/25/21 11:26 [facility] (Rec: 02/25/21 12:10 [facility] [id number]) Cardio Equipment Recumbent Stepper (Sci-Fit) Duration (Minutes) 10 Resistance 2 Seat Position 10 Other 1.20 miles, frequent assist for L ankle respostion, cues adduct Therapeutic Exercises Standing Exercises sit to stands Equipment Used AFO donned Reps/Minutes 5x Comments cues for scoot forw, wider MIKA and L quad activation Gait Training Gait Activity parallel bars Description forward, backward Device Used AFO left with heel lift, Level of Assistance min> light R UE support right on bar, a couple steps without UE support Surface firm Distance/Duration 3 laps Treatment Focus neutral alignment, weight- shift Comments Focusing soft left knee, increased stance time left LE, left hip muscle activation in stance, cued equal stride length and narrowing MIKA gait w/ AD no wrapping Description w/ TB wrapping w/ metronome 60bpm Device Used SPC Level of Assistance SBA Surface stable Distance/Duration 90 ft Treatment Focus L knee flexion, hip IR, wt shift to left, step-through gait Comments cued small step LLE, bigger step RLE: 2 pt gait and LLE awareness of adduction to decrease L hip ER. Metronome 60bpm 1 Description level surface Device Used single point cane, AFO and TB wrapping Level of Assistance SBA, cues Surface indoor carpet, firm Distance/Duration 75' Treatment Focus L hip IR and decrease L knee hyperextension, pacing, metronome 60bpm Comments 1. L4 TB tied at left shoe, wrapped around clockwise LE with gait belt to assist with internal rotation foot/ hip facilitation to allow LLE proper alignment. Manual Therapy Treatment Soft Tissue Mobilization L calf Body Location L gastroc, soleus, peroneals. Mobilization Type Cross-Friction,Myofascial Release,Sustained Pressure, Other Intensity/Depth Moderate Body Position Sitting Comments (seated on scifit) ITB, peroneal Body Location R peroneal Mobilization Type Cross-Friction Intensity/Depth Moderate Body Position Sitting Comments good tolerance, it makes it feel less tight, much better. Joint Mobilizations MTPs, talocrual mobs, rotation forefoot Joint L Grade II Body Position Sitting Comments good feedback response manual MWM support foot/ ankle seated on biodex w/ L knee bent, noted decrease plantar and inversion tone. Neuro Re-Education Treatment Balance Activities hurdles Equipment parallel bars Reps/Duration 6x2 Comments tall green hurdles Modified SLS Details Modified SLS on LLE Surface firm> Equipment RUE WB on //bar, RLE touch LLE Reps/Duration 3x 30 sec Comments cued L quad facilitation/ knee extension soft knee and glut fac pelvis over knee/ wt shift over LLE and decrease RUE heavy WB on //bar. Noted wt shift equal and rock into ball of foot, stable L knee superwomen take off. Self-Care/Home Management Treatment Education Other Education continue to try to increase standing time without AFO, work on weight-shifting, soft knee. PT-OP-R Modalities Start: 05/28/19 08:11 Freq: Status: Active Protocol: Document 12/29/20 10:30 [facility] (Rec: 12/29/20 11:44 [facility] [id number]) Electric Stimulation Electric Stimulation Functional Electric Stimulation Body Location L hand/ forearm extensors Duration (Minutes) 2 Patient Position Sitting Comments NMES- education on placement of pad for muscular feedback extension based- check self placement understanding. PT-OP-T Assessment and Plan Start: 05/28/19 08:11 Freq: Status: Active Protocol: Document 02/25/21 11:26 [facility] (Rec: 02/25/21 12:10 [facility] [id number]) Physical Therapy Assessment Goals Five Impairment gait speed not adequate for safe community ambulation Halfway Goal (LTG) Patient able to ambulate 300' in 6 min. TUG score no greater than 30 sec 1/25/21: 134' 08/28/20: 144', likely not as high due to new shoes and wearing old AFO because fits better in new shoes. Requires level 4 theraband for derotation of left LE into more neutral position for gait . 09/19/20: 146 ft 6 min w/ QC and Tb wrapping to LLE. 11/13/20: 153 ft CG w/ SPC 2>3 pt gait w/out metronome w/ reported L glut/ lateral leg burn pain, 2 step brief stand breaks. 11/24/20: progressing 173.7 ft using SPC, predominently 2 pt gait. TUG score 59 sec using SP 01/27/21: TUG 55 sec. , 6 min walk test 199.9 ft with SPC LTG Duration 03/30/21 Four Impairment requires assistance with bed mobility and transfers Short Term Goal (STG) Patient will be able to perform all bed mobility independently to improve her functional independence. 10/31/19: good goal progress 06/02/20:inconsistent, but min assist most times 11/24/20: Met goal: pt is independent in supine>sit. STG Duration goal met ( independent 11/24/20 ) Legal Services Manager Goal (LTG) Patient will be able to perform a floor transfer with SB to min assist. 5x sit to stand score in no more than 15 sec as measure of functional strength for transfers 10/31/19: max assist today 01/02/20: has not been willing to try since 10/31/19 06/02/20: does not feel strong enough to try yet. 08/28/20: max assistance required 12/02/20: remains at max assist , not recently willing to attempt floor transfer. 5x sit to stand score 26 seconds 01/27/21: not tried recently. LTG Duration 03/30/21 Three Impairment weakness left UE and LE s/p CVA Halfway Goal (LTG) Improve functional strength in left LE, as evidenced by ability to move from sit > < stand without use of UE's. 10/31/19: OT starts tomorrow. Good progress with sit to stand, though mostly using right UE and LE 01/02/20: Improving ability to perform, able to increase weight-bearing through left LE with cues, but still some use of right UE 05/26/20: With manual and visual feedback patient able to transfer sit to stand with only CG A. 08/28/20: inconsistent ability to move sit to stand without using UE's, but able to do transfer without physical assistance 11/24/20: Goal Met 01/27/21: more difficulty recently, having to use hands. Goal reactivated. LTG Duration 03/30/21 Two Impairment balance dysfunction with high risk for falls Legal Services Manager Goal (LTG) Improve balance as evidenced by improvement in Tinnetti balance and gait score to low fall risk range to improve safety in the home and community. 10/31/19: remains high risk for falls 01/02/20: some improvement but still in high risk category 05/26/20: Tinetti score in high risk category 08/28/20: moderate risk for falls 12/02/20: remains in moderate risk for falls. 01/27/21: moderate risk for falls LTG Duration 03/30/21 One Impairment requires armaan-walker for gait, limited to household gait Halfway Goal (LTG) Patient able to ambulate with least restrictive device for functional community distances to improve her functional independence and quality of life. 10/30/19: no progress due to Covid 19. 11/02/19: able to ambulate with quad cane but with very slow speed, household distances, very short community distances . 05/26/20: Now able to ambulate with use of single point cane and use of L4 theraband wrapped around left LE to facilitate left LE internal rotation for improved alignment. Patient unable to don the theraband on her own. Gait is for short distances and very slow at 39 ft in 2 min. 08/28/20: has demonstrated improved gait ability, still using theraband for derotation of LE for more neutral position. Able to consistenly use quad cane and is increasing stride length especially with cues. Now able to ascend and descend 4 stairs with min assist using railing. Mod assist on 6 stairs. 12/02/20: Patient ambulating with SPC, mostly household but some community distances, improved gait alignment with use of theraband for improved alignment. Patient not consistently able to ambulate community distances due to pain in her left LE, and lack of neurological control left LE. Patient may benefit from modification to her current AFO or fabrication of new AFO. 173 ft in 6 minutes 01/27/21: using SPC. Limitations due to left foot, knee and hip pain, right wrist pain 6 min walk test improved to 199.9 feet today LTG Duration 03/30/21 Assessment Summary Assessment Improved weight shift to left today with gait training parallel bars wearing AFO. Needs verbal and manual cues to tuck pelvis, weight shift to left and soften knee for gait without AFO and still requires mod physical assist to prevent hyperextension. BP stable at 124/74 Physical Therapy Plan Frequency and Duration Frequency of Treatment 2x/Week Duration of Treatment 12 wks Plan of Care Start Date 01/27/21 Plan of Care End Date 03/30/21 Therapeutic Interventions Therapeutic Interventions Aquatic Therapy,Balance Training,Gait Training,Home Exercise Program,Neuromuscular Re-education,Orthotic/ Prosthetic Management,Patient/ Caregiver Education,Self-Care/ Home Management,Taping, Therapeutic Activities, Therapeutic Exercises Modalities Cold Pack/Ice Massage,Hot Packs Next Visit Focus/Plan Next Note Type Treatment Note Next Visit Plan Continue PT for gait training, neuro re-ed, functional strengthening, manual techniques as indicated for left LE joint and soft tissue mobility.
--- NOTE | 2021-03-03 11:15 | PT.OTN ---
Current Diagnoses Hemiplegia, unspecified affecting unspecified side (03/03/21) Difficulty in walking, not elsewhere classified (03/03/21) Weakness (03/03/21) History of falling (03/03/21) Physical Therapy Treatment Note PT-OP-A Visit Information Start: 05/28/19 08:11 Freq: Status: Active Protocol: Document 03/03/21 10:32 SP (Rec: 03/03/21 11:38 SP [id number]) Out-Patient Physical Therapy Visit Information Visit Information Visit Type Treatment Note Visit Start Time 10:32 Visit Stop Time 11:15 Total Visit Minutes 43 Visit Number 96 Number of STAGE TECHNICIAN Visits 1 Precautions Precautions Seizure disorder memory dysfunction PT-OP-B Current Condition Start: 05/28/19 08:11 Freq: Status: Active Protocol: Document 06/04/20 11:15 SAK (Rec: 06/05/20 16:34 SAK [id number]) Current Condition History of Current Condition Onset Date 2014 Current Complaints weakness, requires assistance with all mobility and household tasks History of Current Condition Reports that she suffered a stroke in 2014 after surgery for brain aneurysm. CVA caused weakness on the left side of her body, gait and balance difficulty, seizures. PT-OP-C Subjective Start: 05/28/19 08:11 Freq: Status: Active Protocol: Document 03/03/21 10:32 SP (Rec: 03/03/21 11:38 SP [id number]) OP-PT Subjective Patient Comments Patient Comments Pt stated getting a new independent caregiver, might come in when have PT to assess how to help at home. Pt was able to attend pool Gym and bumped into STAGE TECHNICIAN Marely which helped her get set up on [employer] at gym. PT-OP-D Balance Start: 05/28/19 08:11 Freq: Status: Active Protocol: Document 05/29/19 14:30 SAK (Rec: 05/30/19 14:24 SAK [id number]) OP-PT Balance Assessment Sitting Balance Static Sitting Balance Ability Good Dynamic Sitting Balance Ability Fair Standing Balance Static Standing Balance Ability Good Dynamic Standing Balance Ability Fair Device Used [facility] right Tinetti Balance Assessment Sitting Balance Sitting Balance Steady, safe Arising from Chair Attempts to Arise Able, requires >1 attempt Standing Balance Immediate Standing Balance Steady with support Standing Balance Steady, wide stance Nudged Response Begins to fall Standing with Eyes Closed Unsteady Turning Step Pattern Turning 360 Degrees Discontinuous steps Stability Turning 360 Degrees Unsteady, grabs/staggers Sitting Down Sitting Down Uses arms or unsteady Gait and Step Initiation of Gait Hesitancy, mult. attempts Right Foot Step Length Does not pass stance ft. Right Foot Step Height Does not clear floor Left Foot Step Length Does not pass stance foot Left Foot Step Height Does not clear floor Step Description Step Symmetry Step length not equal Gait Description Path Description Mild/moderate deviation Trunk Description Marked sway or uses aide Walking Stance Heels apart Scoring and Interpretation Tinetti Composite Score (points) 6 Interpretation of Scores High risk for falls(< 19) Herrera Fall Scale Copyright Permission PT-OP-E Functional Tests Start: 05/28/19 08:11 Freq: Status: Active Protocol: Document 05/26/20 11:15 [facility] (Rec: 05/26/20 17:04 [facility] [id number]) Functional Tests 2 Minute Walk Test Distance 39 ft Device Used single point cane Comments derotation application of level 4 theraband to decrease excess ER right LE PT-OP-G Mobility & Gait Start: 05/28/19 08:11 Freq: Status: Active Protocol: Document 05/26/20 11:15 SAK (Rec: 05/26/20 17:04 [facility] [id number]) OP Mobility Evaluation Bed Mobility Rolling min assist to right CGA to left Supine to and from Sit min assist to right CGA to left Transfers Sit to Stand CGA to min assist without UE use Bed to Chair Transfers requires use of right UE but able to do with SBA Floor Transfers unable PT-OP-H Neuro Start: 05/28/19 08:11 Freq: Status: Active Protocol: Document 05/29/19 14:30 [facility] (Rec: 05/30/19 14:24 [facility] [id number]) Sensation Evaluation Gross Sensation Gross Sensation Left UE Impaired,Left LE Impaired Sensation Description Paresthesia,Numbness Coordination Evaluation Lower Extremity Tests Left Alternate Heel to Knee; Heel to Toe Test Moderate Impairment Heel on Boles Test Moderate Impairment Foot Tapping Test Moderate Impairment PT-OP-K Range of Motion Start: 05/28/19 08:11 Freq: Status: Active Protocol: Document 05/26/20 11:15 SAK (Rec: 05/26/20 17:04 [facility] [id number]) Hip Goniometric Range of Motion Hip jake Hip ROM WFL Yes Comments actively right LE, passively left LE Knee Goniometric Range of Motion Knee jake Knee ROM WFL Yes Ankle and Foot Goniometric Range of Motion Ankle and Foot Left Passive Ankle/Foot ROM WFL No Left Active Ankle/Foot ROM WFL No PT-OP-M Strength Start: 05/28/19 08:11 Freq: Status: Active Protocol: Document 05/26/20 11:15 SAK (Rec: 05/26/20 17:04 SAK [id number]) Hip Strength Hip Manual Muscle Testing Left Flexion (L2) 3- Fair- Extension (S1) 2 Poor Abduction 2+ Poor+ External Rotation 3- Fair- Internal Rotation 3+ Fair+ Right Flexion (L2) 4 Good Extension (S1) 4- Good- Abduction 4 Good External Rotation 3+ Fair+ Internal Rotation 4- Good- PT-OP-Q Treatments Start: 05/28/19 08:11 Freq: Status: Active Protocol: Document 03/03/21 10:32 SP (Rec: 03/03/21 11:38 SP [id number]) Cardio Equipment Recumbent Stepper (Sci-Fit) Duration (Minutes) 10 Resistance 2 Seat Position 10 Other 1.09 miles, frequent assist for L ankle respostion, cues adduct Therapeutic Exercises Standing Exercises sit to stands Equipment Used AFO donned, blue Tb wrapping donned Reps/Minutes 5x Comments cues for scoot forw, wider MIKA and L quad activation Gait Training Gait Activity parallel bars Description forward Device Used AFO left with heel lift, Level of Assistance min> light R UE support right on bar, a couple steps without UE support Surface firm Distance/Duration 2 laps R HR, 1 lap SPC onR ( min A wt shift and stabilize SPC) Treatment Focus neutral alignment, weight- shift Comments Focusing soft left knee, increased stance time left LE, left hip muscle activation in stance, cued equal stride length and narrowing MIKA gait w/ AD no wrapping Description w/ TB wrapping w/ metronome 60bpm Device Used SPC Level of Assistance SBA Surface stable Distance/Duration 206 ft (wait room chair around clinic then to scifit) Treatment Focus L knee flexion, hip IR, wt shift to left, step-through gait Comments cued small step LLE, bigger step RLE: 2 pt gait and LLE awareness of adduction to decrease L hip ER. Metronome 60bpm Manual Therapy Treatment Soft Tissue Mobilization L calf Body Location L gastroc, soleus, peroneals. Mobilization Type Cross-Friction,Myofascial Release,Sustained Pressure, Other Intensity/Depth Moderate Body Position Sitting Comments (seated on scifit) Joint Mobilizations MTPs, talocrual mobs, rotation forefoot Joint L Grade II Body Position Sitting Comments good feedback response manual MWM support foot/ ankle seated on scifit w/ L knee bent, noted decrease plantar and inversion tone. PT-OP-R Modalities Start: 05/28/19 08:11 Freq: Status: Active Protocol: Document 12/29/20 10:30 SP (Rec: 12/29/20 11:44 SP [id number]) Electric Stimulation Electric Stimulation Functional Electric Stimulation Body Location L hand/ forearm extensors Duration (Minutes) 2 Patient Position Sitting Comments NMES- education on placement of pad for muscular feedback extension based- check self placement understanding. PT-OP-T Assessment and Plan Start: 05/28/19 08:11 Freq: Status: Active Protocol: Document 03/03/21 10:32 SP (Rec: 03/03/21 11:38 SP [id number]) Physical Therapy Assessment Goals Five Impairment gait speed not adequate for safe community ambulation [facility] Goal (LTG) Patient able to ambulate 300' in 6 min. TUG score no greater than 30 sec 06/02/20: 134' 08/28/20: 144', likely not as high due to new shoes and wearing old AFO because fits better in new shoes. Requires level 4 theraband for derotation of left LE into more neutral position for gait . 09/19/20: 146 ft 6 min w/ QC and Tb wrapping to LLE. 11/13/20: 153 ft CG w/ SPC 2>3 pt gait w/out metronome w/ reported L glut/ lateral leg burn pain, 2 step brief stand breaks. 11/24/20: progressing 173.7 ft using SPC, predominently 2 pt gait. TUG score 59 sec using SP 01/27/21: TUG 55 sec. , 6 min walk test 199.9 ft with SPC LTG Duration 03/30/21 Four Impairment requires assistance with bed mobility and transfers Short Term Goal (STG) Patient will be able to perform all bed mobility independently to improve her functional independence. 10/31/19: good goal progress 06/02/20:inconsistent, but min assist most times 11/24/20: Met goal: pt is independent in supine>sit. STG Duration goal met ( independent 11/24/20 ) [facility] Goal (LTG) Patient will be able to perform a floor transfer with SB to min assist. 5x sit to stand score in no more than 15 sec as measure of functional strength for transfers 10/31/19: max assist today 01/02/20: has not been willing to try since 10/31/19 06/02/20: does not feel strong enough to try yet. 08/28/20: max assistance required 12/02/20: remains at max assist , not recently willing to attempt floor transfer. 5x sit to stand score 26 seconds 01/27/21: not tried recently. LTG Duration 03/30/21 Three Impairment weakness left UE and LE s/p CVA [facility]ci Goal (LTG) Improve functional strength in left LE, as evidenced by ability to move from sit > < stand without use of UE's. 10/31/19: OT starts tomorrow. Good progress with sit to stand, though mostly using right UE and LE 01/02/20: Improving ability to perform, able to increase weight-bearing through left LE with cues, but still some use of right UE 05/26/20: With manual and visual feedback patient able to transfer sit to stand with only CG A. 08/28/20: inconsistent ability to move sit to stand without using UE's, but able to do transfer without physical assistance 11/24/20: Goal Met 01/27/21: more difficulty recently, having to use hands. Goal reactivated. LTG Duration 03/30/21 Two Impairment balance dysfunction with high risk for falls Ice Grinder Goal (LTG) Improve balance as evidenced by improvement in Tinnetti balance and gait score to low fall risk range to improve safety in the home and community. 10/31/19: remains high risk for falls 01/02/20: some improvement but still in high risk category 05/26/20: Tinetti score in high risk category 08/28/20: moderate risk for falls 12/02/20: remains in moderate risk for falls. 01/27/21: moderate risk for falls LTG Duration 03/30/21 One Impairment requires armaan-walker for gait, limited to household gait [facility] Goal (LTG) Patient able to ambulate with least restrictive device for functional community distances to improve her functional independence and quality of life. 10/30/19: no progress due to Covid 19. 11/02/19: able to ambulate with quad cane but with very slow speed, household distances, very short community distances . 05/26/20: Now able to ambulate with use of single point cane and use of L4 theraband wrapped around left LE to facilitate left LE internal rotation for improved alignment. Patient unable to don the theraband on her own. Gait is for short distances and very slow at 39 ft in 2 min. 08/28/20: has demonstrated improved gait ability, still using theraband for derotation of LE for more neutral position. Able to consistenly use quad cane and is increasing stride length especially with cues. Now able to ascend and descend 4 stairs with min assist using railing. Mod assist on 6 stairs. 12/02/20: Patient ambulating with SPC, mostly household but some community distances, improved gait alignment with use of theraband for improved alignment. Patient not consistently able to ambulate community distances due to pain in her left LE, and lack of neurological control left LE. Patient may benefit from modification to her current AFO or fabrication of new AFO. 173 ft in 6 minutes 01/27/21: using SPC. Limitations due to left foot, knee and hip pain, right wrist pain 6 min walk test improved to 199.9 feet today LTG Duration 03/30/21 Assessment Summary Assessment Pt was able to maintained speed and form during gait w/ TB donned for L hip IR with decreased converstation, cues for attention to task at hand 2pt gait at 60bpm enrike. During scifit pt required more lateral support to maintain LLE adduction, Lhip IR and ankle alignment repositioning to neutral on foot plate and in shoe due to PF/IV tone. STAGE TECHNICIAN recommended bringing regular shoe for L foot next tx to allow proper fit. Pt was able to shyanne step using SPC with Roberto for trunk wt shift support and SPC stability, cGA using R HR. Physical Therapy Plan Frequency and Duration Frequency of Treatment 2x/Week Duration of Treatment 12 wks Plan of Care Start Date 01/27/21 Plan of Care End Date 03/30/21 Therapeutic Interventions Therapeutic Interventions Aquatic Therapy,Balance Training,Gait Training,Home Exercise Program,Neuromuscular Re-education,Orthotic/ Prosthetic Management,Patient/ Caregiver Education,Self-Care/ Home Management,Taping, Therapeutic Activities, Therapeutic Exercises Modalities Cold Pack/Ice Massage,Hot Packs Next Visit Focus/Plan Next Note Type Treatment Note Next Visit Plan Continue PT for gait training, neuro re-ed, functional strengthening, manual techniques as indicated for left LE joint and soft tissue mobility.
--- NOTE | 2021-03-05 09:43 | PT-OP ANOTE ---
Pt arrived with caregiver, reported had a sore throat and hoarse voice which kept her up during the night, feels should cancel appt today. front desk agent and GRAPHIC ART DESIGNER agreed cancelling appt today good safe precautions, recommended in the future can call to cancel appt. Pt stated wasn't sure if should call or come in, verbalized understanding.
--- NOTE | 2021-03-10 09:42 | PT.OTN ---
Current Diagnoses Hemiplegia, unspecified affecting unspecified side (03/10/21) Difficulty in walking, not elsewhere classified (03/10/21) Weakness (03/10/21) History of falling (03/10/21) Physical Therapy Treatment Note PT-OP-A Visit Information Start: 05/28/19 08:11 Freq: Status: Active Protocol: Document 03/10/21 08:55 SP (Rec: 03/10/21 09:46 SP [id number]) Out-Patient Physical Therapy Visit Information Visit Information Visit Type Treatment Note Visit Note WOJCIECH Browne attended tx and provided education under supervision of BARBARA Guevara. Visit Start Time 08:55 Visit Stop Time 09:42 Total Visit Minutes 47 Visit Number 97 Number of INSULATION BOARD COATER OPERATOR Visits 2 Precautions Precautions Seizure disorder memory dysfunction PT-OP-B Current Condition Start: 05/28/19 08:11 Freq: Status: Active Protocol: Document 06/04/20 11:15 SAK (Rec: 06/05/20 16:34 SAK [id number]) Current Condition History of Current Condition Onset Date 2014 Current Complaints weakness, requires assistance with all mobility and household tasks History of Current Condition Reports that she suffered a stroke in 2014 after surgery for brain aneurysm. CVA caused weakness on the left side of her body, gait and balance difficulty, seizures. PT-OP-C Subjective Start: 05/28/19 08:11 Freq: Status: Active Protocol: Document 03/10/21 08:55 SP (Rec: 03/10/21 09:46 SP [id number]) OP-PT Subjective Patient Comments Patient Comments Pt. indicated that she had not slept well last night and was tired. Indicated that she is losing her caregiver and does not have a replacement at this time. PT-OP-D Balance Start: 05/28/19 08:11 Freq: Status: Active Protocol: Document 05/29/19 14:30 SAK (Rec: 05/30/19 14:24 SAK [id number]) OP-PT Balance Assessment Sitting Balance Static Sitting Balance Ability Good Dynamic Sitting Balance Ability Fair Standing Balance Static Standing Balance Ability Good Dynamic Standing Balance Ability Fair Device [facility] right Tinetti Balance Assessment Sitting Balance Sitting Balance Steady, safe Arising from Chair Attempts to Arise Able, requires >1 attempt Standing Balance Immediate Standing Balance Steady with support Standing Balance Steady, wide stance Nudged Response Begins to fall Standing with Eyes Closed Unsteady Turning Step Pattern Turning 360 Degrees Discontinuous steps Stability Turning 360 Degrees Unsteady, grabs/staggers Sitting Down Sitting Down Uses arms or unsteady Gait and Step Initiation of Gait Hesitancy, mult. attempts Right Foot Step Length Does not pass stance ft. Right Foot Step Height Does not clear floor Left Foot Step Length Does not pass stance foot Left Foot Step Height Does not clear floor Step Description Step Symmetry Step length not equal Gait Description Path Description Mild/moderate deviation Trunk Description Marked sway or uses aide Walking Stance Heels apart Scoring and Interpretation Tinetti Composite Score (points) 6 Interpretation of Scores High risk for falls(< 19) Herrera Fall Scale Copyright Permission PT-OP-E Functional Tests Start: 05/28/19 08:11 Freq: Status: Active Protocol: Document 05/26/20 11:15 [facility] (Rec: 05/26/20 17:04 [facility] [id number]) Functional Tests 2 Minute Walk Test Distance 39 ft Device Used single point cane Comments derotation application of level 4 theraband to decrease excess ER right LE PT-OP-G Mobility & Gait Start: 05/28/19 08:11 Freq: Status: Active Protocol: Document 05/26/20 11:15 [facility] (Rec: 05/26/20 17:04 [facility] [id number]) OP Mobility Evaluation Bed Mobility Rolling min assist to right CGA to left Supine to and from Sit min assist to right CGA to left Transfers Sit to Stand CGA to min assist without UE use Bed to Chair Transfers requires use of right UE but able to do with SBA Floor Transfers unable PT-OP-H Neuro Start: 05/28/19 08:11 Freq: Status: Active Protocol: Document 05/29/19 14:30 [facility] (Rec: 05/30/19 14:24 [facility] [id number]) Sensation Evaluation Gross Sensation Gross Sensation Left UE Impaired,Left LE Impaired Sensation Description Paresthesia,Numbness Coordination Evaluation Lower Extremity Tests Left Alternate Heel to Knee; Heel to Toe Test Moderate Impairment Heel on Boles Test Moderate Impairment Foot Tapping Test Moderate Impairment PT-OP-K Range of Motion Start: 05/28/19 08:11 Freq: Status: Active Protocol: Document 05/26/20 11:15 SAK (Rec: 05/26/20 17:04 [facility] [id number]) Hip Goniometric Range of Motion Hip jake Hip ROM WFL Yes Comments actively right LE, passively left LE Knee Goniometric Range of Motion Knee jake Knee ROM WFL Yes Ankle and Foot Goniometric Range of Motion Ankle and Foot Left Passive Ankle/Foot ROM WFL No Left Active Ankle/Foot ROM WFL No PT-OP-M Strength Start: 05/28/19 08:11 Freq: Status: Active Protocol: Document 05/26/20 11:15 SAK (Rec: 05/26/20 17:04 SAK [id number]) Hip Strength Hip Manual Muscle Testing Left Flexion (L2) 3- Fair- Extension (S1) 2 Poor Abduction 2+ Poor+ External Rotation 3- Fair- Internal Rotation 3+ Fair+ Right Flexion (L2) 4 Good Extension (S1) 4- Good- Abduction 4 Good External Rotation 3+ Fair+ Internal Rotation 4- Good- PT-OP-Q Treatments Start: 05/28/19 08:11 Freq: Status: Active Protocol: Document 03/10/21 08:55 SP (Rec: 03/10/21 09:46 SP [id number]) Gait Training Gait Activity parallel bars Description forward Device Used AFO donned left with heel lift , Level of Assistance min> light R UE support right on bar, 1 length without UE support> no rail Surface firm Distance/Duration 4 laps R HR Treatment Focus neutral alignment, weight- shift Comments Focusing soft left knee, increased stance time left LE, left hip muscle activation in stance, cued equal stride length narrowing MIKA and Weight shifting. gait w/ AD no wrapping Description w/ TB wrapping w/ metronome 60bpm Device Used SPC Level of Assistance SBA- CGA Surface stable Distance/Duration 219 ft in 8 min 59 sec (wait room chair around clinic then chair at //bar) Treatment Focus L knee flexion, hip IR, wt shift to left, step-through gait Comments cued small step LLE, bigger step RLE: 2 pt gait and LLE awareness of adduction to decrease L hip ER. Metronome 60bpm- cues for attention to task (decreased conversation). step up/down blue foam Device Used R UE on rail Level of Assistance CG to min assist Distance/Duration 4x Treatment Focus stability, balance, increased weight-bearing through left LE Comments cued for weight shifting, HS recruitment on L posterior step, L knee extension. Neuro Re-Education Treatment Balance Activities foam stand Details feet side by side wt shift into LLE Surface blue foam Reps/Duration static stand approx CGA no UE support required PT-OP-R Modalities Start: 05/28/19 08:11 Freq: Status: Active Protocol: Document 12/29/20 10:30 SP (Rec: 12/29/20 11:44 SP [id number]) Electric Stimulation Electric Stimulation Functional Electric Stimulation Body Location L hand/ forearm extensors Duration (Minutes) 2 Patient Position Sitting Comments NMES- education on placement of pad for muscular feedback extension based- check self placement understanding. PT-OP-T Assessment and Plan Start: 05/28/19 08:11 Freq: Status: Active Protocol: Document 03/10/21 08:55 SP (Rec: 03/10/21 09:46 SP [id number]) Physical Therapy Assessment Goals Five Impairment gait speed not adequate for safe community ambulation Longterm Goal (LTG) Patient able to ambulate 300' in 6 min. TUG score no greater than 30 sec 06/02/20: 134' 08/28/20: 144', likely not as high due to new shoes and wearing old AFO because fits better in new shoes. Requires level 4 theraband for derotation of left LE into more neutral position for gait . 09/19/20: 146 ft 6 min w/ QC and Tb wrapping to LLE. 11/13/20: 153 ft CG w/ SPC 2>3 pt gait w/out metronome w/ reported L glut/ lateral leg burn pain, 2 step brief stand breaks. 11/24/20: progressing 173.7 ft using SPC, predominently 2 pt gait. TUG score 59 sec using SP 01/27/21: TUG 55 sec. , 6 min walk test 199.9 ft with SPC LTG Duration 03/30/21 Four Impairment requires assistance with bed mobility and transfers Short Term Goal (STG) Patient will be able to perform all bed mobility independently to improve her functional independence. 10/31/19: good goal progress 06/02/20:inconsistent, but min assist most times 11/24/20: Met goal: pt is independent in supine>sit. STG Duration goal met ( independent 11/24/20 ) Key Entry Operator Goal (LTG) Patient will be able to perform a floor transfer with SB to min assist. 5x sit to stand score in no more than 15 sec as measure of functional strength for transfers 10/31/19: max assist today 01/02/20: has not been willing to try since 10/31/19 06/02/20: does not feel strong enough to try yet. 08/28/20: max assistance required 12/02/20: remains at max assist , not recently willing to attempt floor transfer. 5x sit to stand score 26 seconds 01/27/21: not tried recently. LTG Duration 03/30/21 Three Impairment weakness left UE and LE s/p CVA Key Entry Operator Goal (LTG) Improve functional strength in left LE, as evidenced by ability to move from sit > < stand without use of UE's. 10/31/19: OT starts tomorrow. Good progress with sit to stand, though mostly using right UE and LE 01/02/20: Improving ability to perform, able to increase weight-bearing through left LE with cues, but still some use of right UE 05/26/20: With manual and visual feedback patient able to transfer sit to stand with only CG A. 08/28/20: inconsistent ability to move sit to stand without using UE's, but able to do transfer without physical assistance 11/24/20: Goal Met 01/27/21: more difficulty recently, having to use hands. Goal reactivated. LTG Duration 03/30/21 Two Impairment balance dysfunction with high risk for falls Longterm Goal (LTG) Improve balance as evidenced by improvement in Tinnetti balance and gait score to low fall risk range to improve safety in the home and community. 10/31/19: remains high risk for falls 01/02/20: some improvement but still in high risk category 05/26/20: Tinetti score in high risk category 08/28/20: moderate risk for falls 12/02/20: remains in moderate risk for falls. 01/27/21: moderate risk for falls LTG Duration 03/30/21 One Impairment requires araman-walker for gait, limited to household gait Key Entry Operator Goal (LTG) Patient able to ambulate with least restrictive device for functional community distances to improve her functional independence and quality of life. 10/30/19: no progress due to Covid 19. 11/02/19: able to ambulate with quad cane but with very slow speed, household distances, very short community distances . 05/26/20: Now able to ambulate with use of single point cane and use of L4 theraband wrapped around left LE to facilitate left LE internal rotation for improved alignment. Patient unable to don the theraband on her own. Gait is for short distances and very slow at 39 ft in 2 min. 08/28/20: has demonstrated improved gait ability, still using theraband for derotation of LE for more neutral position. Able to consistenly use quad cane and is increasing stride length especially with cues. Now able to ascend and descend 4 stairs with min assist using railing. Mod assist on 6 stairs. 12/02/20: Patient ambulating with SPC, mostly household but some community distances, improved gait alignment with use of theraband for improved alignment. Patient not consistently able to ambulate community distances due to pain in her left LE, and lack of neurological control left LE. Patient may benefit from modification to her current AFO or fabrication of new AFO. 173 ft in 6 minutes 01/27/21: using SPC. Limitations due to left foot, knee and hip pain, right wrist pain 6 min walk test improved to 199.9 feet today LTG Duration 03/30/21 Assessment Summary Assessment Pt LOB Min A recovery at gait belt and anterior sternum during initial gait using SPC in RUE due to LLE over adduction and foot clearance. INSULATION BOARD COATER OPERATOR education on attention ( less conversation) to gait quality to allow improved distance and improve coordination with less distraction to time mgt. Pt was able to increase wt shift into LLE stance time with cues for quad facilitation. Able to progress gait without AD end of tx with cues for LLE quad facilitation while wt shift over LLE confidence, CG- Min A for trunk stability support, pt noted R lean as distance progressed due to tiring. Physical Therapy Plan Frequency and Duration Frequency of Treatment 2x/Week Duration of Treatment 12 wks Plan of Care Start Date 01/27/21 Plan of Care End Date 03/30/21 Therapeutic Interventions Therapeutic Interventions Aquatic Therapy,Balance Training,Gait Training,Home Exercise Program,Neuromuscular Re-education,Orthotic/ Prosthetic Management,Patient/ Caregiver Education,Self-Care/ Home Management,Taping, Therapeutic Activities, Therapeutic Exercises Modalities Cold Pack/Ice Massage,Hot Packs Next Visit Focus/Plan Next Note Type Treatment Note Next Visit Plan Continue PT for gait training, neuro re-ed, functional strengthening, manual techniques as indicated for left LE joint and soft tissue mobility.
--- NOTE | 2021-03-12 11:24 | PT.OTN ---
Current Diagnoses Hemiplegia, unspecified affecting unspecified side (03/12/21) Difficulty in walking, not elsewhere classified (03/12/21) Weakness (03/12/21) History of falling (03/12/21) Physical Therapy Treatment Note PT-OP-A Visit Information Start: 05/28/19 08:11 Freq: Status: Active Protocol: Document 03/12/21 10:34 SP (Rec: 03/12/21 11:42 SP [id number]) Out-Patient Physical Therapy Visit Information Visit Information Visit Type Treatment Note Visit Note WOJCIECH Browne attended tx and provided education under direct supervision of BARBARA Guevara. Visit Start Time 10:34 Visit Stop Time 11:24 Total Visit Minutes 50 Visit Number 98 Number of QC ANALYST Visits 3 Precautions Precautions Seizure disorder memory dysfunction PT-OP-B Current Condition Start: 05/28/19 08:11 Freq: Status: Active Protocol: Document 06/04/20 11:15 SAK (Rec: 06/05/20 16:34 SAK [id number]) Current Condition History of Current Condition Onset Date 2014 Current Complaints weakness, requires assistance with all mobility and household tasks History of Current Condition Reports that she suffered a stroke in 2014 after surgery for brain aneurysm. CVA caused weakness on the left side of her body, gait and balance difficulty, seizures. PT-OP-C Subjective Start: 05/28/19 08:11 Freq: Status: Active Protocol: Document 03/12/21 10:34 SP (Rec: 03/12/21 11:42 SP [id number]) OP-PT Subjective Patient Comments Patient Comments Pt. indicated that she is feeling more rested today. Indicated that she developed a headache midway through gait, but wanted to continue exercies. PT-OP-D Balance Start: 05/28/19 08:11 Freq: Status: Active Protocol: Document 05/29/19 14:30 SAK (Rec: 05/30/19 14:24 SAK [id number]) OP-PT Balance Assessment Sitting Balance Static Sitting Balance Ability Good Dynamic Sitting Balance Ability Fair Standing Balance Static Standing Balance Ability Good Dynamic Standing Balance Ability Fair Device Used [facility] right Tinetti Balance Assessment Sitting Balance Sitting Balance Steady, safe Arising from Chair Attempts to Arise Able, requires >1 attempt Standing Balance Immediate Standing Balance Steady with support Standing Balance Steady, wide stance Nudged Response Begins to fall Standing with Eyes Closed Unsteady Turning Step Pattern Turning 360 Degrees Discontinuous steps Stability Turning 360 Degrees Unsteady, grabs/staggers Sitting Down Sitting Down Uses arms or unsteady Gait and Step Initiation of Gait Hesitancy, mult. attempts Right Foot Step Length Does not pass stance ft. Right Foot Step Height Does not clear floor Left Foot Step Length Does not pass stance foot Left Foot Step Height Does not clear floor Step Description Step Symmetry Step length not equal Gait Description Path Description Mild/moderate deviation Trunk Description Marked sway or uses aide Walking Stance Heels apart Scoring and Interpretation Tinetti Composite Score (points) 6 Interpretation of Scores High risk for falls(< 19) Herrera Fall Scale Copyright Permission PT-OP-E Functional Tests Start: 05/28/19 08:11 Freq: Status: Active Protocol: Document 05/26/20 11:15 [facility] (Rec: 05/26/20 17:04 [facility] [id number]) Functional Tests 2 Minute Walk Test Distance 39 ft Device Used single point cane Comments derotation application of level 4 theraband to decrease excess ER right LE PT-OP-G Mobility & Gait Start: 05/28/19 08:11 Freq: Status: Active Protocol: Document 05/26/20 11:15 SAK (Rec: 05/26/20 17:04 [facility] [id number]) OP Mobility Evaluation Bed Mobility Rolling min assist to right CGA to left Supine to and from Sit min assist to right CGA to left Transfers Sit to Stand CGA to min assist without UE use Bed to Chair Transfers requires use of right UE but able to do with SBA Floor Transfers unable PT-OP-H Neuro Start: 05/28/19 08:11 Freq: Status: Active Protocol: Document 05/29/19 14:30 [facility] (Rec: 05/30/19 14:24 [facility] [id number]) Sensation Evaluation Gross Sensation Gross Sensation Left UE Impaired,Left LE Impaired Sensation Description Paresthesia,Numbness Coordination Evaluation Lower Extremity Tests Left Alternate Heel to Knee; Heel to Toe Test Moderate Impairment Heel on Boles Test Moderate Impairment Foot Tapping Test Moderate Impairment PT-OP-K Range of Motion Start: 05/28/19 08:11 Freq: Status: Active Protocol: Document 05/26/20 11:15 SAK (Rec: 05/26/20 17:04 [facility] [id number]) Hip Goniometric Range of Motion Hip jake Hip ROM WFL Yes Comments actively right LE, passively left LE Knee Goniometric Range of Motion Knee jake Knee ROM WFL Yes Ankle and Foot Goniometric Range of Motion Ankle and Foot Left Passive Ankle/Foot ROM WFL No Left Active Ankle/Foot ROM WFL No PT-OP-M Strength Start: 05/28/19 08:11 Freq: Status: Active Protocol: Document 05/26/20 11:15 SAK (Rec: 05/26/20 17:04 SAK [id number]) Hip Strength Hip Manual Muscle Testing Left Flexion (L2) 3- Fair- Extension (S1) 2 Poor Abduction 2+ Poor+ External Rotation 3- Fair- Internal Rotation 3+ Fair+ Right Flexion (L2) 4 Good Extension (S1) 4- Good- Abduction 4 Good External Rotation 3+ Fair+ Internal Rotation 4- Good- PT-OP-Q Treatments Start: 05/28/19 08:11 Freq: Status: Active Protocol: Document 03/12/21 10:34 SP (Rec: 03/12/21 11:42 SP [id number]) Cardio Equipment Recumbent Stepper (Sci-Fit) Duration (Minutes) 10 Resistance 2 Seat Position 10 Other In flatter shoe w/o AFO, 56 RPM, cues for LLE adduction. Gait Training Gait Activity parallel bars Description forward Device Used AFO donned left with heel lift , Level of Assistance without UE support Surface firm Distance/Duration 6steps lenght x6 laps R HR as needed during turns Treatment Focus neutral alignment, weight- shift Comments 1/4 cork lift full foot lift in R shoe for level pelvis. Focusing soft left knee, increased stance time left LE, left hip muscle activation in stance, cued more adduction for narrow MIKA, equal stride length and Weight shifting. RUEon hip. 6 min walk test Description 2 point gait throughout Device Used SPC, Tb Blue wrapping Level of Assistance SBA Surface firm Distance/Duration 182 Treatment Focus speed and safety Comments Performed with 1/4 cork as insole of R shoe to match height of AFO and wedge on L shoe. Metronome at 60 BPM. Pt. was able to ambulate with improved weight shifting and distribution laterally, longer stride time on the R, with more equal stride lengths. Pt. fatigued partially through exercise, but was able to continue with decreased speed. Cues for equalizing stride length and weight distribution . Manual Therapy Treatment Soft Tissue Mobilization L calf Body Location L gastroc, soleus, peroneals. Mobilization Type Cross-Friction,Myofascial Release,Sustained Pressure, Other Intensity/Depth Moderate Body Position Sitting Comments (seated on scifit) PT-OP-R Modalities Start: 05/28/19 08:11 Freq: Status: Active Protocol: Document 12/29/20 10:30 SP (Rec: 12/29/20 11:44 SP [id number]) Electric Stimulation Electric Stimulation Functional Electric Stimulation Body Location L hand/ forearm extensors Duration (Minutes) 2 Patient Position Sitting Comments NMES- education on placement of pad for muscular feedback extension based- check self placement understanding. PT-OP-T Assessment and Plan Start: 05/28/19 08:11 Freq: Status: Active Protocol: Document 03/12/21 10:34 SP (Rec: 03/12/21 11:42 SP [id number]) Physical Therapy Assessment Goals Five Impairment gait speed not adequate for safe community ambulation Winch Stripper Goal (LTG) Patient able to ambulate 300' in 6 min. TUG score no greater than 30 sec 06/02/20: 134' 08/28/20: 144', likely not as high due to new shoes and wearing old AFO because fits better in new shoes. Requires level 4 theraband for derotation of left LE into more neutral position for gait . 09/19/20: 146 ft 6 min w/ QC and Tb wrapping to LLE. 11/13/20: 153 ft CG w/ SPC 2>3 pt gait w/out metronome w/ reported L glut/ lateral leg burn pain, 2 step brief stand breaks. 11/24/20: progressing 173.7 ft using SPC, predominently 2 pt gait. TUG score 59 sec using SP 01/27/21: TUG 55 sec. , 6 min walk test 199.9 ft with SPC LTG Duration 03/30/21 Four Impairment requires assistance with bed mobility and transfers Short Term Goal (STG) Patient will be able to perform all bed mobility independently to improve her functional independence. 10/31/19: good goal progress 06/02/20:inconsistent, but min assist most times 11/24/20: Met goal: pt is independent in supine>sit. STG Duration goal met ( independent 11/24/20 ) Detention Goal (LTG) Patient will be able to perform a floor transfer with SB to min assist. 5x sit to stand score in no more than 15 sec as measure of functional strength for transfers 10/31/19: max assist today 01/02/20: has not been willing to try since 10/31/19 06/02/20: does not feel strong enough to try yet. 08/28/20: max assistance required 12/02/20: remains at max assist , not recently willing to attempt floor transfer. 5x sit to stand score 26 seconds 01/27/21: not tried recently. LTG Duration 03/30/21 Three Impairment weakness left UE and LE s/p CVA Detention Goal (LTG) Improve functional strength in left LE, as evidenced by ability to move from sit > < stand without use of UE's. 10/31/19: OT starts tomorrow. Good progress with sit to stand, though mostly using right UE and LE 01/02/20: Improving ability to perform, able to increase weight-bearing through left LE with cues, but still some use of right UE 05/26/20: With manual and visual feedback patient able to transfer sit to stand with only CG A. 08/28/20: inconsistent ability to move sit to stand without using UE's, but able to do transfer without physical assistance 11/24/20: Goal Met 01/27/21: more difficulty recently, having to use hands. Goal reactivated. LTG Duration 03/30/21 Two Impairment balance dysfunction with high risk for falls Detention Goal (LTG) Improve balance as evidenced by improvement in Tinnetti balance and gait score to low fall risk range to improve safety in the home and community. 10/31/19: remains high risk for falls 01/02/20: some improvement but still in high risk category 05/26/20: Tinetti score in high risk category 08/28/20: moderate risk for falls 12/02/20: remains in moderate risk for falls. 01/27/21: moderate risk for falls LTG Duration 03/30/21 One Impairment requires armaan-walker for gait, limited to household gait Winch Stripper Goal (LTG) Patient able to ambulate with least restrictive device for functional community distances to improve her functional independence and quality of life. 10/30/19: no progress due to Covid 19. 11/02/19: able to ambulate with quad cane but with very slow speed, household distances, very short community distances . 05/26/20: Now able to ambulate with use of single point cane and use of L4 theraband wrapped around left LE to facilitate left LE internal rotation for improved alignment. Patient unable to don the theraband on her own. Gait is for short distances and very slow at 39 ft in 2 min. 08/28/20: has demonstrated improved gait ability, still using theraband for derotation of LE for more neutral position. Able to consistenly use quad cane and is increasing stride length especially with cues. Now able to ascend and descend 4 stairs with min assist using railing. Mod assist on 6 stairs. 12/02/20: Patient ambulating with SPC, mostly household but some community distances, improved gait alignment with use of theraband for improved alignment. Patient not consistently able to ambulate community distances due to pain in her left LE, and lack of neurological control left LE. Patient may benefit from modification to her current AFO or fabrication of new AFO. 173 ft in 6 minutes 01/27/21: using SPC. Limitations due to left foot, knee and hip pain, right wrist pain 6 min walk test improved to 199.9 feet today LTG Duration 03/30/21 Assessment Summary Assessment Pt demonstrated improved weight distribution in gait with 1/4 full length lift in R shoe along with cues increased NBO and equal stride . Able to walk 6 laps in // without UE support and increased confidence, needed contact during turn. Improved ankle alignment using regular shoe on L on Scifit with continued cues for hip adduction on L. Physical Therapy Plan Frequency and Duration Frequency of Treatment 2x/Week Duration of Treatment 12 wks Plan of Care Start Date 01/27/21 Plan of Care End Date 03/30/21 Therapeutic Interventions Therapeutic Interventions Aquatic Therapy,Balance Training,Gait Training,Home Exercise Program,Neuromuscular Re-education,Orthotic/ Prosthetic Management,Patient/ Caregiver Education,Self-Care/ Home Management,Taping, Therapeutic Activities, Therapeutic Exercises Modalities Cold Pack/Ice Massage,Hot Packs Next Visit Focus/Plan Next Note Type Treatment Note Next Visit Plan Consider next treatment box steps in preparation for stairs. Re-check cork insole in R shoe. Continue PT for gait training, neuro re-ed, functional strengthening, manual techniques as indicated for left LE joint and soft tissue mobility.
--- NOTE | 2021-03-17 10:34 | PT.OTN ---
Current Diagnoses Hemiplegia, unspecified affecting unspecified side (03/17/21) Difficulty in walking, not elsewhere classified (03/17/21) Weakness (03/17/21) History of falling (03/17/21) Physical Therapy Treatment Note PT-OP-A Visit Information Start: 05/28/19 08:11 Freq: Status: Active Protocol: Document 03/17/21 09:45 ER (Rec: 03/17/21 11:17 ER [id number]) Out-Patient Physical Therapy Visit Information Visit Information Visit Type Treatment Note Visit Note WOJCIECH Browne attended and provided education under direct supervision and guidance of PT Renetta. Visit Start Time 09:45 Visit Stop Time 10:34 Total Visit Minutes 48 Visit Number 99 Number of FINAL INSPECTOR BALANCE WHEEL Visits 4 Precautions Precautions Seizure disorder memory dysfunction PT-OP-B Current Condition Start: 05/28/19 08:11 Freq: Status: Active Protocol: Document 06/04/20 11:15 SAK (Rec: 06/05/20 16:34 SAK [id number]) Current Condition History of Current Condition Onset Date 2014 Current Complaints weakness, requires assistance with all mobility and household tasks History of Current Condition Reports that she suffered a stroke in 2014 after surgery for brain aneurysm. CVA caused weakness on the left side of her body, gait and balance difficulty, seizures. PT-OP-C Subjective Start: 05/28/19 08:11 Freq: Status: Active Protocol: Document 03/17/21 09:45 ER (Rec: 03/17/21 11:17 ER [id number]) OP-PT Subjective Patient Comments Patient Comments Pt indicated that she is feeling good today. Said that she is walking laps at home with her cane. Said that she has lost her caregiver and is concerned about getting another as she is planning to in the near future. Upon inquiry, indicated that the cork insole now felt normal in walking at home. Expressed that she was tired post session. PT-OP-D Balance Start: 05/28/19 08:11 Freq: Status: Active Protocol: Document 05/29/19 14:30 SAK (Rec: 05/30/19 14:24 SAK [id number]) OP-PT Balance Assessment Sitting Balance Static Sitting Balance Ability Good Dynamic Sitting Balance Ability Fair Standing Balance Static Standing Balance Ability Good Dynamic Standing Balance Ability Fair Device Used hemiwalker right Tinetti Balance Assessment Sitting Balance Sitting Balance Steady, safe Arising from Chair Attempts to Arise Able, requires >1 attempt Standing Balance Immediate Standing Balance Steady with support Standing Balance Steady, wide stance Nudged Response Begins to fall Standing with Eyes Closed Unsteady Turning Step Pattern Turning 360 Degrees Discontinuous steps Stability Turning 360 Degrees Unsteady, grabs/staggers Sitting Down Sitting Down Uses arms or unsteady Gait and Step Initiation of Gait Hesitancy, mult. attempts Right Foot Step Length Does not pass stance ft. Right Foot Step Height Does not clear floor Left Foot Step Length Does not pass stance foot Left Foot Step Height Does not clear floor Step Description Step Symmetry Step length not equal Gait Description Path Description Mild/moderate deviation Trunk Description Marked sway or uses aide Walking Stance Heels apart Scoring and Interpretation Tinetti Composite Score (points) 6 Interpretation of Scores High risk for falls(< 19) Herrera Fall Scale Copyright Permission PT-OP-E Functional Tests Start: 05/28/19 08:11 Freq: Status: Active Protocol: Document 05/26/20 11:15 [facility] (Rec: 05/26/20 17:04 [facility] [id number]) Functional Tests 2 Minute Walk Test Distance 39 ft Device Used single point cane Comments derotation application of level 4 theraband to decrease excess ER right LE PT-OP-G Mobility & Gait Start: 05/28/19 08:11 Freq: Status: Active Protocol: Document 05/26/20 11:15 [facility] (Rec: 05/26/20 17:04 [facility] [id number]) OP Mobility Evaluation Bed Mobility Rolling min assist to right CGA to left Supine to and from Sit min assist to right CGA to left Transfers Sit to Stand CGA to min assist without UE use Bed to Chair Transfers requires use of right UE but able to do with SBA Floor Transfers unable PT-OP-H Neuro Start: 05/28/19 08:11 Freq: Status: Active Protocol: Document 05/29/19 14:30 [facility] (Rec: 05/30/19 14:24 [facility] [id number]) Sensation Evaluation Gross Sensation Gross Sensation Left UE Impaired,Left LE Impaired Sensation Description Paresthesia,Numbness Coordination Evaluation Lower Extremity Tests Left Alternate Heel to Knee; Heel to Toe Test Moderate Impairment Heel on Boles Test Moderate Impairment Foot Tapping Test Moderate Impairment PT-OP-K Range of Motion Start: 05/28/19 08:11 Freq: Status: Active Protocol: Document 05/26/20 11:15 [facility] (Rec: 05/26/20 17:04 [facility] [id number]) Hip Goniometric Range of Motion Hip jake Hip ROM WFL Yes Comments actively right LE, passively left LE Knee Goniometric Range of Motion Knee jake Knee ROM WFL Yes Ankle and Foot Goniometric Range of Motion Ankle and Foot Left Passive Ankle/Foot ROM WFL No Left Active Ankle/Foot ROM WFL No PT-OP-M Strength Start: 05/28/19 08:11 Freq: Status: Active Protocol: Document 05/26/20 11:15 [facility] (Rec: 05/26/20 17:04 [facility] [id number]) Hip Strength Hip Manual Muscle Testing Left Flexion (L2) 3- Fair- Extension (S1) 2 Poor Abduction 2+ Poor+ External Rotation 3- Fair- Internal Rotation 3+ Fair+ Right Flexion (L2) 4 Good Extension (S1) 4- Good- Abduction 4 Good External Rotation 3+ Fair+ Internal Rotation 4- Good- PT-OP-Q Treatments Start: 05/28/19 08:11 Freq: Status: Active Protocol: Document 03/17/21 09:45 ER (Rec: 03/17/21 11:17 ER [email or web address]) Cardio Equipment Recumbent Stepper (Sci-Fit) Duration (Minutes) 8 Resistance 2 Seat Position 10 Other Flat shoe w/o AFO on L. increased cues for LLE add as pt fatigued. Gait Training Gait Activity Step-tap on 4 block Description Alternating step tap to 4 block Device Used paralel bars Level of Assistance CGA, UE support on R Surface Firm Distance/Duration 10 ea Treatment Focus weight shifting, hip flexor fascilitation, targeted foot placement Comments Pt had difficulty maintaining upright posture, exp. with LLE advancement, substituted hip hiking for hip flexion on L. cues to maintain upright posture, B weight shifting, ham and hip flexor fascilitation on L, and slow step on R. parallel bars Description forward Device Used AFO donned left with heel lift , Level of Assistance without UE support Surface firm Distance/Duration 6steps lenght x6 laps R HR as needed during turns Treatment Focus neutral alignment, weight- shift Comments 1/4 cork lift full foot lift in R shoe for level pelvis. Focusing soft left knee, increased stance time left LE, left hip muscle activation in stance, cued more adduction for narrow MIKA, equal stride length and Weight shifting. RUEon hip. 6 min walk test Description 2 point gait throughout Device Used SPC, Tb Blue wrapping Level of Assistance SBA Surface firm Distance/Duration 197 Treatment Focus speed and safety Comments Performed with 1/4 cork as insole of R shoe to match height of AFO and wedge on L shoe. Metronome at 60 BPM. Pt. fatigued at approx 5 min, and speed and stride length decreased significantly. Cues for equalizing stride length and weight distribution. Manual Therapy Treatment Soft Tissue Mobilization L calf Body Location L gastroc, soleus, peroneals. Mobilization Type Cross-Friction,Myofascial Release,Sustained Pressure, Other Intensity/Depth Moderate Body Position Sitting Comments (seated on scifit) PT-OP-R Modalities Start: 05/28/19 08:11 Freq: Status: Active Protocol: Document 12/29/20 10:30 SP (Rec: 12/29/20 11:44 SP [id number]) Electric Stimulation Electric Stimulation Functional Electric Stimulation Body Location L hand/ forearm extensors Duration (Minutes) 2 Patient Position Sitting Comments NMES- education on placement of pad for muscular feedback extension based- check self placement understanding. PT-OP-T Assessment and Plan Start: 05/28/19 08:11 Freq: Status: Active Protocol: Document 03/17/21 09:45 ER (Rec: 03/17/21 11:17 ER [email or web address]) Physical Therapy Assessment Goals Five Impairment gait speed not adequate for safe community ambulation Residential Goal (LTG) Patient able to ambulate 300' in 6 min. TUG score no greater than 30 sec 06/02/20: 134' 08/28/20: 144', likely not as high due to new shoes and wearing old AFO because fits better in new shoes. Requires level 4 theraband for derotation of left LE into more neutral position for gait . 09/19/20: 146 ft 6 min w/ QC and Tb wrapping to LLE. 11/13/20: 153 ft CG w/ SPC 2>3 pt gait w/out metronome w/ reported L glut/ lateral leg burn pain, 2 step brief stand breaks. 11/24/20: progressing 173.7 ft using SPC, predominently 2 pt gait. TUG score 59 sec using SP 01/27/21: TUG 55 sec. , 6 min walk test 199.9 ft with SPC LTG Duration 03/30/21 Four Impairment requires assistance with bed mobility and transfers Short Term Goal (STG) Patient will be able to perform all bed mobility independently to improve her functional independence. 10/31/19: good goal progress 06/02/20:inconsistent, but min assist most times 11/24/20: Met goal: pt is independent in supine>sit. STG Duration goal met ( independent 11/24/20 ) Boilermaking Supervisor Goal (LTG) Patient will be able to perform a floor transfer with SB to min assist. 5x sit to stand score in no more than 15 sec as measure of functional strength for transfers 10/31/19: max assist today 01/02/20: has not been willing to try since 10/31/19 06/02/20: does not feel strong enough to try yet. 08/28/20: max assistance required 12/02/20: remains at max assist , not recently willing to attempt floor transfer. 5x sit to stand score 26 seconds 01/27/21: not tried recently. LTG Duration 03/30/21 Three Impairment weakness left UE and LE s/p CVA Residential Goal (LTG) Improve functional strength in left LE, as evidenced by ability to move from sit > < stand without use of UE's. 10/31/19: OT starts tomorrow. Good progress with sit to stand, though mostly using right UE and LE 01/02/20: Improving ability to perform, able to increase weight-bearing through left LE with cues, but still some use of right UE 05/26/20: With manual and visual feedback patient able to transfer sit to stand with only CG A. 08/28/20: inconsistent ability to move sit to stand without using UE's, but able to do transfer without physical assistance 11/24/20: Goal Met 01/27/21: more difficulty recently, having to use hands. Goal reactivated. LTG Duration 03/30/21 Two Impairment balance dysfunction with high risk for falls Boilermaking Supervisor Goal (LTG) Improve balance as evidenced by improvement in Tinnetti balance and gait score to low fall risk range to improve safety in the home and community. 10/31/19: remains high risk for falls 01/02/20: some improvement but still in high risk category 05/26/20: Tinetti score in high risk category 08/28/20: moderate risk for falls 12/02/20: remains in moderate risk for falls. 01/27/21: moderate risk for falls LTG Duration 03/30/21 One Impairment requires armaan-walker for gait, limited to household gait Residential Goal (LTG) Patient able to ambulate with least restrictive device for functional community distances to improve her functional independence and quality of life. 10/30/19: no progress due to Covid 19. 11/02/19: able to ambulate with quad cane but with very slow speed, household distances, very short community distances . 05/26/20: Now able to ambulate with use of single point cane and use of L4 theraband wrapped around left LE to facilitate left LE internal rotation for improved alignment. Patient unable to don the theraband on her own. Gait is for short distances and very slow at 39 ft in 2 min. 08/28/20: has demonstrated improved gait ability, still using theraband for derotation of LE for more neutral position. Able to consistenly use quad cane and is increasing stride length especially with cues. Now able to ascend and descend 4 stairs with min assist using railing. Mod assist on 6 stairs. 12/02/20: Patient ambulating with SPC, mostly household but some community distances, improved gait alignment with use of theraband for improved alignment. Patient not consistently able to ambulate community distances due to pain in her left LE, and lack of neurological control left LE. Patient may benefit from modification to her current AFO or fabrication of new AFO. 173 ft in 6 minutes 01/27/21: using SPC. Limitations due to left foot, knee and hip pain, right wrist pain 6 min walk test improved to 199.9 feet today LTG Duration 03/30/21 Physical Therapy Plan Next Visit Focus/Plan Next Note Type Treatment Note Next Visit Plan Consider next treatment box steps in preparation for stairs. Check cork insole in R shoe. Continue PT for gait training, neuro re-ed, functional strengthening, manual techniques as indicated for left LE joint and soft tissue mobility.
--- NOTE | 2021-03-20 11:18 | PT.OTN ---
Addendum entered and electronically signed by Paola Farfan PTA 03/20/21 11:45: POC expires 03/30, PN due before 03/30/21. Original Note: Current Diagnoses Hemiplegia, unspecified affecting unspecified side (03/20/21) Difficulty in walking, not elsewhere classified (03/20/21) Weakness (03/20/21) History of falling (03/20/21) Physical Therapy Treatment Note PT-OP-A Visit Information Start: 05/28/19 08:11 Freq: Status: Active Protocol: Document 03/20/21 10:35 ER (Rec: 03/20/21 11:38 ER [id number]) Out-Patient Physical Therapy Visit Information Visit Information Visit Type Treatment Note Visit Note WOJCIECH Browne lead tx, provided education and instruction under direct supervision and guidance of BARBARA holman. Visit Start Time 10:35 Visit Stop Time 11:18 Total Visit Minutes 40 Visit Number 100 Number of LICENSED SOCIAL WORKER Visits 1 Precautions Precautions Seizure disorder memory dysfunction PT-OP-B Current Condition Start: 05/28/19 08:11 Freq: Status: Active Protocol: Document 06/04/20 11:15 SAK (Rec: 06/05/20 16:34 SAK [id number]) Current Condition History of Current Condition Onset Date 2014 Current Complaints weakness, requires assistance with all mobility and household tasks History of Current Condition Reports that she suffered a stroke in 2014 after surgery for brain aneurysm. CVA caused weakness on the left side of her body, gait and balance difficulty, seizures. PT-OP-C Subjective Start: 05/28/19 08:11 Freq: Status: Active Protocol: Document 03/20/21 10:35 ER (Rec: 03/20/21 11:38 ER [id number]) OP-PT Subjective Patient Comments Patient Comments Pt reported tired today. Is interviewing a new independent caregiver today so hoping to help attend PT and help her with personal community activities wanting. PT-OP-D Balance Start: 05/28/19 08:11 Freq: Status: Active Protocol: Document 05/29/19 14:30 SAK (Rec: 05/30/19 14:24 SAK [id number]) OP-PT Balance Assessment Sitting Balance Static Sitting Balance Ability Good Dynamic Sitting Balance Ability Fair Standing Balance Static Standing Balance Ability Good Dynamic Standing Balance Ability Fair Device Used hemiwalker right Tinetti Balance Assessment Sitting Balance Sitting Balance Steady, safe Arising from Chair Attempts to Arise Able, requires >1 attempt Standing Balance Immediate Standing Balance Steady with support Standing Balance Steady, wide stance Nudged Response Begins to fall Standing with Eyes Closed Unsteady Turning Step Pattern Turning 360 Degrees Discontinuous steps Stability Turning 360 Degrees Unsteady, grabs/staggers Sitting Down Sitting Down Uses arms or unsteady Gait and Step Initiation of Gait Hesitancy, mult. attempts Right Foot Step Length Does not pass stance ft. Right Foot Step Height Does not clear floor Left Foot Step Length Does not pass stance foot Left Foot Step Height Does not clear floor Step Description Step Symmetry Step length not equal Gait Description Path Description Mild/moderate deviation Trunk Description Marked sway or uses aide Walking Stance Heels apart Scoring and Interpretation Tinetti Composite Score (points) 6 Interpretation of Scores High risk for falls(< 19) Herrera Fall Scale Copyright Permission PT-OP-E Functional Tests Start: 05/28/19 08:11 Freq: Status: Active Protocol: Document 05/26/20 11:15 [facility] (Rec: 05/26/20 17:04 [facility] [id number]) Functional Tests 2 Minute Walk Test Distance 39 ft Device Used single point cane Comments derotation application of level 4 theraband to decrease excess ER right LE PT-OP-G Mobility & Gait Start: 05/28/19 08:11 Freq: Status: Active Protocol: Document 05/26/20 11:15 [facility] (Rec: 05/26/20 17:04 [facility] [id number]) OP Mobility Evaluation Bed Mobility Rolling min assist to right CGA to left Supine to and from Sit min assist to right CGA to left Transfers Sit to Stand CGA to min assist without UE use Bed to Chair Transfers requires use of right UE but able to do with SBA Floor Transfers unable PT-OP-H Neuro Start: 05/28/19 08:11 Freq: Status: Active Protocol: Document 05/29/19 14:30 [facility] (Rec: 05/30/19 14:24 [facility] [id number]) Sensation Evaluation Gross Sensation Gross Sensation Left UE Impaired,Left LE Impaired Sensation Description Paresthesia,Numbness Coordination Evaluation Lower Extremity Tests Left Alternate Heel to Knee; Heel to Toe Test Moderate Impairment Heel on Boles Test Moderate Impairment Foot Tapping Test Moderate Impairment PT-OP-K Range of Motion Start: 01/20/20 08:11 Freq: Status: Active Protocol: Document 05/26/20 11:15 SAK (Rec: 05/26/20 17:04 SAK [id number]) Hip Goniometric Range of Motion Hip jake Hip ROM WFL Yes Comments actively right LE, passively left LE Knee Goniometric Range of Motion Knee jake Knee ROM WFL Yes Ankle and Foot Goniometric Range of Motion Ankle and Foot Left Passive Ankle/Foot ROM WFL No Left Active Ankle/Foot ROM WFL No PT-OP-M Strength Start: 05/28/19 08:11 Freq: Status: Active Protocol: Document 05/26/20 11:15 SAK (Rec: 05/26/20 17:04 SAK [id number]) Hip Strength Hip Manual Muscle Testing Left Flexion (L2) 3- Fair- Extension (S1) 2 Poor Abduction 2+ Poor+ External Rotation 3- Fair- Internal Rotation 3+ Fair+ Right Flexion (L2) 4 Good Extension (S1) 4- Good- Abduction 4 Good External Rotation 3+ Fair+ Internal Rotation 4- Good- PT-OP-Q Treatments Start: 05/28/19 08:11 Freq: Status: Active Protocol: Document 03/20/21 10:35 ER (Rec: 03/20/21 11:38 ER [id number]) Gym Equipment Shuttle Recovery Unilateral Squats Resistance 12>25# Bilateral Squats Resistance 50# Gait Training Gait Activity parallel bars Description forward on foam mat Device Used AFO donned left with heel lift , Level of Assistance R handrail Surface compliant Distance/Duration 6' x2 laps Treatment Focus neutral alignment, weight- shift Comments Pt. improved weight shifting with increased time over LLE, and decreased use of UE support - grasped initially > fingertips. gait w/ AD no wrapping Description w/ TB wrapping w/ metronome 60bpm Device Used SPC Level of Assistance SBA- CGA Surface stable Distance/Duration waiting room to MAP bldg stair well to shuttle press, //bar to front door Treatment Focus L knee flexion, hip IR, wt shift to left, step-through gait Comments cued small step LLE, bigger step RLE: 2 pt gait and LLE awareness of adduction to decrease L hip ER. Metronome 60bpm- cues for attention to task (decreased conversation). stair mgt Device Used right handrail ascend, descend Level of Assistance min assist Surface Min A, 1 flight/ 13 stairs Treatment Focus increased weight shift left, decreased use right UE Comments 1. step to initially> alternating feet ascending/ descending 2. Cues to keep L knee slightly bent w/ toes facing forward assist w/ support repositioning and eccentric flexion while wt shift over L side Cues for trunk wt shift over L side with RUE on HR PT-OP-R Modalities Start: 05/28/19 08:11 Freq: Status: Active Protocol: Document 12/29/20 10:30 SP (Rec: 12/29/20 11:44 SP [id number]) Electric Stimulation Electric Stimulation Functional Electric Stimulation Body Location L hand/ forearm extensors Duration (Minutes) 2 Patient Position Sitting Comments NMES- education on placement of pad for muscular feedback extension based- check self placement understanding. PT-OP-T Assessment and Plan Start: 05/28/19 08:11 Freq: Status: Active Protocol: Document 03/20/21 10:35 ER (Rec: 03/20/21 11:38 ER [id number]) Physical Therapy Assessment Goals Five Impairment gait speed not adequate for safe community ambulation Field Marketing Manager Goal (LTG) Patient able to ambulate 300' in 6 min. TUG score no greater than 30 sec 06/02/20: 134' 08/28/20: 144', likely not as high due to new shoes and wearing old AFO because fits better in new shoes. Requires level 4 theraband for derotation of left LE into more neutral position for gait . 09/19/20: 146 ft 6 min w/ QC and Tb wrapping to LLE. 11/13/20: 153 ft CG w/ SPC 2>3 pt gait w/out metronome w/ reported L glut/ lateral leg burn pain, 2 step brief stand breaks. 11/24/20: progressing 173.7 ft using SPC, predominently 2 pt gait. TUG score 59 sec using SP 01/27/21: TUG 55 sec. , 6 min walk test 199.9 ft with SPC LTG Duration 03/30/21 Four Impairment requires assistance with bed mobility and transfers Short Term Goal (STG) Patient will be able to perform all bed mobility independently to improve her functional independence. 10/31/19: good goal progress 06/02/20:inconsistent, but min assist most times 11/24/20: Met goal: pt is independent in supine>sit. STG Duration goal met ( independent 11/24/20 ) Halfway Goal (LTG) Patient will be able to perform a floor transfer with SB to min assist. 5x sit to stand score in no more than 15 sec as measure of functional strength for transfers 10/31/19: max assist today 01/02/20: has not been willing to try since 10/31/19 06/02/20: does not feel strong enough to try yet. 08/28/20: max assistance required 12/02/20: remains at max assist , not recently willing to attempt floor transfer. 5x sit to stand score 26 seconds 01/27/21: not tried recently. LTG Duration 03/30/21 Three Impairment weakness left UE and LE s/p CVA Field Marketing Manager Goal (LTG) Improve functional strength in left LE, as evidenced by ability to move from sit > < stand without use of UE's. 10/31/19: OT starts tomorrow. Good progress with sit to stand, though mostly using right UE and LE 01/02/20: Improving ability to perform, able to increase weight-bearing through left LE with cues, but still some use of right UE 05/26/20: With manual and visual feedback patient able to transfer sit to stand with only CG A. 08/28/20: inconsistent ability to move sit to stand without using UE's, but able to do transfer without physical assistance 11/24/20: Goal Met 01/27/21: more difficulty recently, having to use hands. Goal reactivated. LTG Duration 03/30/21 Two Impairment balance dysfunction with high risk for falls Field Marketing Manager Goal (LTG) Improve balance as evidenced by improvement in Tinnetti balance and gait score to low fall risk range to improve safety in the home and community. 10/31/19: remains high risk for falls 01/02/20: some improvement but still in high risk category 05/26/20: Tinetti score in high risk category 08/28/20: moderate risk for falls 12/02/20: remains in moderate risk for falls. 01/27/21: moderate risk for falls LTG Duration 03/30/21 One Impairment requires armaan-walker for gait, limited to household gait Field Marketing Manager Goal (LTG) Patient able to ambulate with least restrictive device for functional community distances to improve her functional independence and quality of life. 10/30/19: no progress due to Covid 19. 11/02/19: able to ambulate with quad cane but with very slow speed, household distances, very short community distances . 05/26/20: Now able to ambulate with use of single point cane and use of L4 theraband wrapped around left LE to facilitate left LE internal rotation for improved alignment. Patient unable to don the theraband on her own. Gait is for short distances and very slow at 39 ft in 2 min. 08/28/20: has demonstrated improved gait ability, still using theraband for derotation of LE for more neutral position. Able to consistenly use quad cane and is increasing stride length especially with cues. Now able to ascend and descend 4 stairs with min assist using railing. Mod assist on 6 stairs. 12/02/20: Patient ambulating with SPC, mostly household but some community distances, improved gait alignment with use of theraband for improved alignment. Patient not consistently able to ambulate community distances due to pain in her left LE, and lack of neurological control left LE. Patient may benefit from modification to her current AFO or fabrication of new AFO. 173 ft in 6 minutes 01/27/21: using SPC. Limitations due to left foot, knee and hip pain, right wrist pain 6 min walk test improved to 199.9 feet today LTG Duration 03/30/21 Assessment Summary Assessment Pt. demonstrated improved stair management, advancing from step-to to alternating ambulation ascending and descending. Cues for quality incrdase stride gait using SPC continued. Shuttle press performed with cues to maintain LLE hip IR, and fascilitation of quads on LLE improved effort with tapping over quad and encouragement into ext. Pt. was able to ambulate 12' over gym mat in / / with R UE> R fingertip support and CGA+1. Pt. demonstrated improved weight shifting to LLE for decreased reliance on RUE, and longer RLE stride length. Pt. will benefit from continued PT to increase functional strength, improved gait, and safety. Physical Therapy Plan Frequency and Duration Frequency of Treatment 2x/Week Duration of Treatment 12 wks Plan of Care Start Date 01/27/21 Plan of Care End Date 03/30/21 Therapeutic Interventions Therapeutic Interventions Aquatic Therapy,Balance Training,Gait Training,Home Exercise Program,Neuromuscular Re-education,Orthotic/ Prosthetic Management,Patient/ Caregiver Education,Self-Care/ Home Management,Taping, Therapeutic Activities, Therapeutic Exercises Modalities Cold Pack/Ice Massage,Hot Packs Next Visit Focus/Plan Next Note Type Treatment Note Next Visit Plan Continue PT for gait training, neuro re-ed, functional strengthening, manual techniques as indicated for left LE joint and soft tissue mobility. Continue stairs and compliant surface gait training.
--- NOTE | 2021-03-24 16:53 | PT.OTRE ---
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 Cervical somatic dysfunction Chronic constipation Chronic hip pain after total replacement of left hip joint Chronic neck pain Chronic neck pain Chronic neck pain with abnormal neurologic examination Chronic pain Chronic pain of left lower extremity Chronic pain of right lower extremity Chronic right hip pain Chronic right shoulder pain Chronic right-sided thoracic back pain Constipation Cranial somatic dysfunction Dominant hemiplegia complicating stroke Dry mouth, unspecified Dysphagia Elevated BP without diagnosis of hypertension Excessive vitamin B12 intake Family history of colon cancer Fatigue Foot drop, left Generalized anxiety disorder GERD (gastroesophageal reflux disease) Headache Hyperextension deformity of left knee Hypothyroidism Iliotibial band syndrome, left leg Irritable bowel syndrome Left hand weakness Left hemiplegia Left leg weakness Major depressive disorder Mass of right axilla Menorrhagia Mixed hyperlipidemia Neuropathic pain Obesity Obesity (BMI 35.0-39.9 without comorbidity) Pelvic somatic dysfunction Right wrist pain Seasonal allergies Segmental and somatic dysfunction of abdomen and other regions Segmental and somatic dysfunction of lumbar region Segmental and somatic dysfunction of rib cage Segmental and somatic dysfunction of sacral region Segmental and somatic dysfunction of thoracic region Seizure disorder Shortness of breath Sleep apnea in adult Stiff neck Stroke Throat disorder Vision changes Vision disorder Vitamin D deficiency Weight gain finding Surgical History (Last Reviewed 02/19/21 @ 10:47 by KINJAL Cooper) Anesthesia Brain aneurysm (~03/25/15) De Quervain's syndrome (tenosynovitis) (~1996) Visit Care Team Role Provider Type KINJAL Cooper Attending Provider Advanced Fibreglass Laminator Primary Care Provider Specialty: Family Practice Address: [address] [place] [address], [facility] Email: [email or web address] Physical Therapy Re-Evaluation PT-OP-A Visit Information Start: 05/28/19 08:11 Freq: Status: Active Protocol: Document 03/24/21 10:27 SAK (Rec: 03/24/21 11:16 [facility]AK [id number]) Out-Patient Physical Therapy Visit Information Visit Information Visit Type Treatment Note Visit Start Time 10:30 Visit Stop Time 11:15 Total Visit Minutes 45 Visit Number 101 Number of [employer] Visits 0 Precautions Precautions Seizure disorder memory dysfunction PT-OP-B Current Condition Start: 05/28/19 08:11 Freq: Status: Active Protocol: Document 06/04/20 11:15 SAK (Rec: 06/05/20 16:34 [facility] [id number]) Current Condition History of Current Condition Onset Date 2014 Current Complaints weakness, requires assistance with all mobility and household tasks History of Current Condition Reports that she suffered a stroke in 2014 after surgery for brain aneurysm. CVA caused weakness on the left side of her body, gait and balance difficulty, seizures. PT-OP-C Subjective Start: 05/28/19 08:11 Freq: Status: Active Protocol: Document 03/24/21 10:27 SAK (Rec: 03/24/21 11:16 [facility] [id number]) OP-PT Subjective Patient Comments Patient Comments Patient reports emotional stress, sick to her stomache, not doing well today. States left leg feels unstable. Sees therapist 03/27/21. No caregive this am due to weather. PT-OP-D Balance Start: 05/28/19 08:11 Freq: Status: Active Protocol: Document 05/29/19 14:30 SAK (Rec: 05/30/19 14:24 [facility] [id number]) OP-PT Balance Assessment Sitting Balance Static Sitting Balance Ability Good Dynamic Sitting Balance Ability Fair Standing Balance Static Standing Balance Ability Good Dynamic Standing Balance Ability Fair Device Used hemiwalker right Tinetti Balance Assessment Sitting Balance Sitting Balance Steady, safe Arising from Chair Attempts to Arise Able, requires >1 attempt Standing Balance Immediate Standing Balance Steady with support Standing Balance Steady, wide stance Nudged Response Begins to fall Standing with Eyes Closed Unsteady Turning Step Pattern Turning 360 Degrees Discontinuous steps Stability Turning 360 Degrees Unsteady, grabs/staggers Sitting Down Sitting Down Uses arms or unsteady Gait and Step Initiation of Gait Hesitancy, mult. attempts Right Foot Step Length Does not pass stance ft. Right Foot Step Height Does not clear floor Left Foot Step Length Does not pass stance foot Left Foot Step Height Does not clear floor Step Description Step Symmetry Step length not equal Gait Description Path Description Mild/moderate deviation Trunk Description Marked sway or uses aide Walking Stance Heels apart Scoring and Interpretation Tinetti Composite Score (points) 6 Interpretation of Scores High risk for falls(< 19) Herrera Fall Scale Copyright Permission Javier JM, Javier RM, Baldev SJ. Development of a scale to identify the fall- prone patient. Can J Aging 1989;8;366-7. Fabian Herrera (2009). Preventing patient falls. (2nd ed). [place]: Bai. PT-OP-E Functional Tests Start: 05/28/19 08:11 Freq: Status: Active Protocol: Document 05/26/20 11:15 [facility] (Rec: 05/26/20 17:04 [facility] [id number]) Functional Tests 2 Minute Walk Test Distance 39 ft Device Used single point cane Comments derotation application of level 4 theraband to decrease excess ER right LE PT-OP-G Mobility & Gait Start: 05/28/19 08:11 Freq: Status: Active Protocol: Document 05/26/20 11:15 SAK (Rec: 05/26/20 17:04 [facility] [id number]) OP Mobility Evaluation Bed Mobility Rolling min assist to right CGA to left Supine to and from Sit min assist to right CGA to left Transfers Sit to Stand CGA to min assist without UE use Bed to Chair Transfers requires use of right UE but able to do with SBA Floor Transfers unable PT-OP-H Neuro Start: 05/28/19 08:11 Freq: Status: Active Protocol: Document 05/29/19 14:30 SAK (Rec: 05/30/19 14:24 [facility] [id number]) Sensation Evaluation Gross Sensation Gross Sensation Left UE Impaired,Left LE Impaired Sensation Description Paresthesia,Numbness Coordination Evaluation Lower Extremity Tests Left Alternate Heel to Knee; Heel to Toe Test Moderate Impairment Heel on Boles Test Moderate Impairment Foot Tapping Test Moderate Impairment PT-OP-K Range of Motion Start: 05/28/19 08:11 Freq: Status: Active Protocol: Document 05/26/20 11:15 [facility] (Rec: 05/26/20 17:04 [facility] [id number]) Hip Goniometric Range of Motion Hip Measured in Degrees jake Hip ROM WFL Yes Comments actively right LE, passively left LE Knee Goniometric Range of Motion Knee Measured in Degrees jake Knee ROM WFL Yes Ankle and Foot Goniometric Range of Motion Ankle and Foot Measured in Degrees Left Passive Ankle/Foot ROM WFL No Left Active Ankle/Foot ROM WFL No PT-OP-M Strength Start: 05/28/19 08:11 Freq: Status: Active Protocol: Document 05/26/20 11:15 SAK (Rec: 05/26/20 17:04 [facility] [id number]) Hip Strength Hip Manual Muscle Testing Left Flexion (L2) 3- Fair- Extension (S1) 2 Poor Abduction 2+ Poor+ External Rotation 3- Fair- Internal Rotation 3+ Fair+ Right Flexion (L2) 4 Good Extension (S1) 4- Good- Abduction 4 Good External Rotation 3+ Fair+ Internal Rotation 4- Good- PT-OP-Q Treatments Start: 05/28/19 08:11 Freq: Status: Active Protocol: Document 03/24/21 10:27 SAK (Rec: 03/24/21 11:16 [facility] [id number]) Gym Equipment Shuttle Recovery Unilateral Squats Resistance 25# Reps/Time 2x10 Bilateral Squats Resistance 50# Reps/Time 2x10 Therapeutic Activity Therapeutic Activity 5x sit to stand test Reps/Minutes 55 sec Comments using quad cane right PT-OP-R Modalities Start: 05/28/19 08:11 Freq: Status: Active Protocol: Document 12/29/20 10:30 [facility] (Rec: 12/29/20 11:44 [facility] [id number]) Electric Stimulation Electric Stimulation Functional Electric Stimulation Body Location L hand/ forearm extensors Duration (Minutes) 2 Patient Position Sitting Comments NMES- education on placement of pad for muscular feedback extension based- check self placement understanding. PT-OP-T Assessment and Plan Start: 05/28/19 08:11 Freq: Status: Active Protocol: Document 03/24/21 10:27 SAK (Rec: 03/24/21 11:16 [facility] [id number]) Physical Therapy Assessment Goals Five Impairment gait speed not adequate for safe community ambulation Seal Mixing Operator Goal (LTG) Patient able to ambulate 300' in 6 min. TUG score no greater than 30 sec 06/02/20: 134' 08/28/20: 144', likely not as high due to new shoes and wearing old AFO because fits better in new shoes. Requires level 4 theraband for derotation of left LE into more neutral position for gait . 09/19/20: 146 ft 6 min w/ QC and Tb wrapping to LLE. 11/13/20: 153 ft CG w/ SPC 2>3 pt gait w/out metronome w/ reported L glut/ lateral leg burn pain, 2 step brief stand breaks. 11/24/20: progressing 173.7 ft using SPC, predominently 2 pt gait. TUG score 59 sec using SP 01/27/21: TUG 55 sec. , 6 min walk test 199.9 ft with SPC 03/19/21: 6 min walk test 165' , TUG 1:20. Continue with use of theraband for derotation of excess ER left LE with gait . LTG Duration 06/30/21 Four Impairment requires assistance with bed mobility and transfers Short Term Goal (STG) Patient will be able to perform all bed mobility independently to improve her functional independence. 10/31/19: good goal progress 06/02/20:inconsistent, but min assist most times 11/24/20: Met goal: pt is independent in supine>sit. STG Duration goal met ( independent 11/24/20 ) Skilled Nursing Goal (LTG) Patient will be able to perform a floor transfer with SB to min assist. 5x sit to stand score in no more than 15 sec as measure of functional strength for transfers 10/31/19: max assist today 01/02/20: has not been willing to try since 10/31/19 06/02/20: does not feel strong enough to try yet. 08/28/20: max assistance required 12/02/20: remains at max assist , not recently willing to attempt floor transfer. 5x sit to stand score 26 seconds 01/27/21: not tried recently. 03/24/21: 5x sit to stand 25 sec. No floor transfer today LTG Duration 06/30/21 Three Impairment weakness left UE and LE s/p CVA Seal Mixing Operator Goal (LTG) Improve functional strength in left LE, as evidenced by ability to move from sit > < stand without use of UE's. 10/31/19: OT starts tomorrow. Good progress with sit to stand, though mostly using right UE and LE 01/02/20: Improving ability to perform, able to increase weight-bearing through left LE with cues, but still some use of right UE 05/26/20: With manual and visual feedback patient able to transfer sit to stand with only CG A. 08/28/20: inconsistent ability to move sit to stand without using UE's, but able to do transfer without physical assistance 11/24/20: Goal Met 01/27/21: more difficulty recently, having to use hands. Goal reactivated. 03/24/21: difficulty motor planning and performing sit to stand today. LTG Duration 06/30/21 Two Impairment balance dysfunction with high risk for falls Seal Mixing Operator Goal (LTG) Improve balance as evidenced by improvement in Tinnetti balance and gait score to low fall risk range to improve safety in the home and community. 10/31/19: remains high risk for falls 01/02/20: some improvement but still in high risk category 05/26/20: Tinetti score in high risk category 08/28/20: moderate risk for falls 12/02/20: remains in moderate risk for falls. 01/27/21: moderate risk for falls 03/24/21: no significant change noted today but again having poor day. LTG Duration 06/30/21 One Impairment requires armaan-walker for gait, limited to household gait Skilled Nursing Goal (LTG) Patient able to ambulate with least restrictive device for functional community distances to improve her functional independence and quality of life. 10/30/19: no progress due to Covid 19. 11/02/19: able to ambulate with quad cane but with very slow speed, household distances, very short community distances . 05/26/20: Now able to ambulate with use of single point cane and use of L4 theraband wrapped around left LE to facilitate left LE internal rotation for improved alignment. Patient unable to don the theraband on her own. Gait is for short distances and very slow at 39 ft in 2 min. 08/28/20: has demonstrated improved gait ability, still using theraband for derotation of LE for more neutral position. Able to consistenly use quad cane and is increasing stride length especially with cues. Now able to ascend and descend 4 stairs with min assist using railing. Mod assist on 6 stairs. 12/02/20: Patient ambulating with SPC, mostly household but some community distances, improved gait alignment with use of theraband for improved alignment. Patient not consistently able to ambulate community distances due to pain in her left LE, and lack of neurological control left LE. Patient may benefit from modification to her current AFO or fabrication of new AFO. 173 ft in 6 minutes 01/27/21: using SPC. Limitations due to left foot, knee and hip pain, right wrist pain 6 min walk test improved to 199.9 feet today 03/24/21: slower 6 min walk test today as above. Has had modification to her AFO with some improvement in her function, but had poor day today. LTG Duration 06/30/21 Assessment Summary Assessment 6 min walk test 165' ( decreased distance), 5x sit to stand 25 sec (improved time), TUG time 1 min 20 sec. Patient was having a very difficult day today, c/o stressors in the home including recent loss of favorite caregiver and no caregiver available for her today, difficult discussions with her mother. Had difficulty with focus on activities today as well as more difficulty with motor planning for basic activities such as transfers. Prior few visits had been demonstrating improvements in both affect and functional mobility. She would benefit from further PT to help her continue to work toward above PT goals to improve her functional mobility, independence, and safety. Physical Therapy Plan Frequency and Duration Frequency of Treatment 2x/Week Duration of Treatment 12 wks Plan of Care Start Date 03/24/21 Plan of Care End Date 06/24/21 Therapeutic Interventions Therapeutic Interventions Aquatic Therapy,Balance Training,Gait Training,Home Exercise Program,Neuromuscular Re-education,Orthotic/ Prosthetic Management,Patient/ Caregiver Education,Self-Care/ Home Management,Taping, Therapeutic Activities, Therapeutic Exercises Modalities Cold Pack/Ice Massage,Hot Packs Next Visit Focus/Plan Next Note Type Treatment Note Next Visit Plan Continue PT for gait training, neuro re-ed, functional strengthening, manual techniques as indicated for left LE joint and soft tissue mobility. Continue stairs and compliant surface gait training.
--- NOTE | 2021-03-26 10:36 | PT.OTN ---
Current Diagnoses Hemiplegia, unspecified affecting unspecified side (03/26/21) Difficulty in walking, not elsewhere classified (03/26/21) Weakness (03/26/21) History of falling (03/26/21) Physical Therapy Treatment Note PT-OP-A Visit Information Start: 05/28/19 08:11 Freq: Status: Active Protocol: Document 03/26/21 09:45 ER (Rec: 03/26/21 11:19 ER [id number]) Out-Patient Physical Therapy Visit Information Visit Information Visit Type Treatment Note Visit Note WOJCIECH Browne lead tx, provided education and instruction under the direct supervision and guidance of BARBARA Guevara throughout tx. Visit Start Time 09:45 Visit Stop Time 10:36 Total Visit Minutes 51 Visit Number 102 Number of [employer] Visits 1 Precautions Precautions Seizure disorder memory dysfunction PT-OP-B Current Condition Start: 05/28/19 08:11 Freq: Status: Active Protocol: Document 06/04/20 11:15 SAK (Rec: 06/05/20 16:34 SAK [id number]) Current Condition History of Current Condition Onset Date 2014 Current Complaints weakness, requires assistance with all mobility and household tasks History of Current Condition Reports that she suffered a stroke in 2014 after surgery for brain aneurysm. CVA caused weakness on the left side of her body, gait and balance difficulty, seizures. PT-OP-C Subjective Start: 05/28/19 08:11 Freq: Status: Active Protocol: Document 03/26/21 09:45 ER (Rec: 03/26/21 11:19 ER [id number]) OP-PT Subjective Patient Comments Patient Comments Pt reported feeling okay this morning. She said her LLE felt stronger and more stable post tx. PT-OP-D Balance Start: 05/28/19 08:11 Freq: Status: Active Protocol: Document 05/29/19 14:30 SAK (Rec: 05/30/19 14:24 SAK [id number]) OP-PT Balance Assessment Sitting Balance Static Sitting Balance Ability Good Dynamic Sitting Balance Ability Fair Standing Balance Static Standing Balance Ability Good Dynamic Standing Balance Ability Fair Device Used [facility] right Tinetti Balance Assessment Sitting Balance Sitting Balance Steady, safe Arising from Chair Attempts to Arise Able, requires >1 attempt Standing Balance Immediate Standing Balance Steady with support Standing Balance Steady, wide stance Nudged Response Begins to fall Standing with Eyes Closed Unsteady Turning Step Pattern Turning 360 Degrees Discontinuous steps Stability Turning 360 Degrees Unsteady, grabs/staggers Sitting Down Sitting Down Uses arms or unsteady Gait and Step Initiation of Gait Hesitancy, mult. attempts Right Foot Step Length Does not pass stance ft. Right Foot Step Height Does not clear floor Left Foot Step Length Does not pass stance foot Left Foot Step Height Does not clear floor Step Description Step Symmetry Step length not equal Gait Description Path Description Mild/moderate deviation Trunk Description Marked sway or uses aide Walking Stance Heels apart Scoring and Interpretation Tinetti Composite Score (points) 6 Interpretation of Scores High risk for falls(< 19) Herrera Fall Scale Copyright Permission PT-OP-E Functional Tests Start: 05/28/19 08:11 Freq: Status: Active Protocol: Document 05/26/20 11:15 [facility] (Rec: 05/26/20 17:04 [facility] [id number]) Functional Tests 2 Minute Walk Test Distance 39 ft Device Used single point cane Comments derotation application of level 4 theraband to decrease excess ER right LE PT-OP-G Mobility & Gait Start: 05/28/19 08:11 Freq: Status: Active Protocol: Document 05/26/20 11:15 SAK (Rec: 05/26/20 17:04 [facility] [id number]) OP Mobility Evaluation Bed Mobility Rolling min assist to right CGA to left Supine to and from Sit min assist to right CGA to left Transfers Sit to Stand CGA to min assist without UE use Bed to Chair Transfers requires use of right UE but able to do with SBA Floor Transfers unable PT-OP-H Neuro Start: 05/28/19 08:11 Freq: Status: Active Protocol: Document 05/29/19 14:30 [facility] (Rec: 05/30/19 14:24 [facility] [id number]) Sensation Evaluation Gross Sensation Gross Sensation Left UE Impaired,Left LE Impaired Sensation Description Paresthesia,Numbness Coordination Evaluation Lower Extremity Tests Left Alternate Heel to Knee; Heel to Toe Test Moderate Impairment Heel on Boles Test Moderate Impairment Foot Tapping Test Moderate Impairment PT-OP-K Range of Motion Start: 05/28/19 08:11 Freq: Status: Active Protocol: Document 05/26/20 11:15 SAK (Rec: 05/26/20 17:04 [facility] [id number]) Hip Goniometric Range of Motion Hip jake Hip ROM WFL Yes Comments actively right LE, passively left LE Knee Goniometric Range of Motion Knee jake Knee ROM WFL Yes Ankle and Foot Goniometric Range of Motion Ankle and Foot Left Passive Ankle/Foot ROM WFL No Left Active Ankle/Foot ROM WFL No PT-OP-M Strength Start: 05/28/19 08:11 Freq: Status: Active Protocol: Document 05/26/20 11:15 SAK (Rec: 05/26/20 17:04 SAK [id number]) Hip Strength Hip Manual Muscle Testing Left Flexion (L2) 3- Fair- Extension (S1) 2 Poor Abduction 2+ Poor+ External Rotation 3- Fair- Internal Rotation 3+ Fair+ Right Flexion (L2) 4 Good Extension (S1) 4- Good- Abduction 4 Good External Rotation 3+ Fair+ Internal Rotation 4- Good- PT-OP-Q Treatments Start: 05/28/19 08:11 Freq: Status: Active Protocol: Document 03/26/21 09:45 ER (Rec: 03/26/21 11:19 ER [id number]) Cardio Equipment Recumbent Stepper (Sci-Fit) Duration (Minutes) 5 Resistance 2 Seat Position 10 Other Flat shoe w/o AFO on L. increased cues for LLE add as pt fatigued. Therapeutic Exercises Standing Exercises Step up-lunge Standing Exercise Name to 2nd step with assist and RUE support on rail Side left Resistance AROM Equipment Used 6 stairs Reps/Minutes 5 Comments Cues for weight shifting to L with LLE on step, tall posture . Gait Training Gait Activity gait w/ AD no wrapping Description w/ TB wrapping w/ metronome 60bpm Device Used SPC Level of Assistance SBA- CGA Surface stable Distance/Duration 61', 120', 35', 110' Treatment Focus L knee flexion, hip IR, wt shift to left, step-through gait Comments cued small step LLE, bigger step RLE: 2 pt gait and LLE awareness of adduction to decrease L hip ER. Metronome 60bpm- cues for attention to task (decreased conversation). stair mgt Device Used right handrail ascend, descend Level of Assistance min assist Surface Min A, 1 flight/ 13 stairs Treatment Focus increased weight shift left, decreased use right UE Comments Cues to maintain soft L knee with toes facing forward. Cues for weight shifting with contralateral LE advancement. Pt has increased difficulty/ anxiety descending, WB on LLE. Able to reciprocate ascending /descending with LLE with support at trunk and L knee flexion to allow advancement of RLE, but continued step to with RLE ascending and descending. PT-OP-R Modalities Start: 05/28/19 08:11 Freq: Status: Active Protocol: Document 12/29/20 10:30 SP (Rec: 12/29/20 11:44 SP [id number]) Electric Stimulation Electric Stimulation Functional Electric Stimulation Body Location L hand/ forearm extensors Duration (Minutes) 2 Patient Position Sitting Comments NMES- education on placement of pad for muscular feedback extension based- check self placement understanding. PT-OP-T Assessment and Plan Start: 05/28/19 08:11 Freq: Status: Active Protocol: Document 03/26/21 09:45 ER (Rec: 03/26/21 11:19 ER [id number]) Physical Therapy Assessment Goals Five Impairment gait speed not adequate for safe community ambulation Skilled Nursing Goal (LTG) Patient able to ambulate 300' in 6 min. TUG score no greater than 30 sec 06/02/20: 134' 08/28/20: 144', likely not as high due to new shoes and wearing old AFO because fits better in new shoes. Requires level 4 theraband for derotation of left LE into more neutral position for gait . 09/19/20: 146 ft 6 min w/ QC and Tb wrapping to LLE. 11/13/20: 153 ft CG w/ SPC 2>3 pt gait w/out metronome w/ reported L glut/ lateral leg burn pain, 2 step brief stand breaks. 11/24/20: progressing 173.7 ft using SPC, predominently 2 pt gait. TUG score 59 sec using SP 01/27/21: TUG 55 sec. , 6 min walk test 199.9 ft with SPC 03/19/21: 6 min walk test 165' , TUG 1:20. Continue with use of theraband for derotation of excess ER left LE with gait . LTG Duration 06/30/21 Four Impairment requires assistance with bed mobility and transfers Short Term Goal (STG) Patient will be able to perform all bed mobility independently to improve her functional independence. 10/31/19: good goal progress 06/02/20:inconsistent, but min assist most times 11/24/20: Met goal: pt is independent in supine>sit. STG Duration goal met ( independent 11/24/20 ) Skilled Nursing Goal (LTG) Patient will be able to perform a floor transfer with SB to min assist. 5x sit to stand score in no more than 15 sec as measure of functional strength for transfers 10/31/19: max assist today 01/02/20: has not been willing to try since 10/31/19 06/02/20: does not feel strong enough to try yet. 08/28/20: max assistance required 12/02/20: remains at max assist , not recently willing to attempt floor transfer. 5x sit to stand score 26 seconds 01/27/21: not tried recently. 03/24/21: 5x sit to stand 25 sec. No floor transfer today LTG Duration 06/30/21 Three Impairment weakness left UE and LE s/p CVA Skilled Nursing Goal (LTG) Improve functional strength in left LE, as evidenced by ability to move from sit > < stand without use of UE's. 10/31/19: OT starts tomorrow. Good progress with sit to stand, though mostly using right UE and LE 01/02/20: Improving ability to perform, able to increase weight-bearing through left LE with cues, but still some use of right UE 05/26/20: With manual and visual feedback patient able to transfer sit to stand with only CG A. 08/28/20: inconsistent ability to move sit to stand without using UE's, but able to do transfer without physical assistance 11/24/20: Goal Met 01/27/21: more difficulty recently, having to use hands. Goal reactivated. 03/24/21: difficulty motor planning and performing sit to stand today. LTG Duration 06/30/21 Two Impairment balance dysfunction with high risk for falls Skilled Nursing Goal (LTG) Improve balance as evidenced by improvement in Tinnetti balance and gait score to low fall risk range to improve safety in the home and community. 10/31/19: remains high risk for falls 01/02/20: some improvement but still in high risk category 05/26/20: Tinetti score in high risk category 08/28/20: moderate risk for falls 12/02/20: remains in moderate risk for falls. 01/27/21: moderate risk for falls 03/24/21: no significant change noted today but again having poor day. LTG Duration 06/30/21 One Impairment requires armaan-walker for gait, limited to household gait Skilled Nursing Goal (LTG) Patient able to ambulate with least restrictive device for functional community distances to improve her functional independence and quality of life. 10/30/19: no progress due to Covid 19. 11/02/19: able to ambulate with quad cane but with very slow speed, household distances, very short community distances . 05/26/20: Now able to ambulate with use of single point cane and use of L4 theraband wrapped around left LE to facilitate left LE internal rotation for improved alignment. Patient unable to don the theraband on her own. Gait is for short distances and very slow at 39 ft in 2 min. 08/28/20: has demonstrated improved gait ability, still using theraband for derotation of LE for more neutral position. Able to consistenly use quad cane and is increasing stride length especially with cues. Now able to ascend and descend 4 stairs with min assist using railing. Mod assist on 6 stairs. 12/02/20: Patient ambulating with SPC, mostly household but some community distances, improved gait alignment with use of theraband for improved alignment. Patient not consistently able to ambulate community distances due to pain in her left LE, and lack of neurological control left LE. Patient may benefit from modification to her current AFO or fabrication of new AFO. 173 ft in 6 minutes 01/27/21: using SPC. Limitations due to left foot, knee and hip pain, right wrist pain 6 min walk test improved to 199.9 feet today 03/24/21: slower 6 min walk test today as above. Has had modification to her AFO with some improvement in her function, but had poor day today. LTG Duration 06/30/21 Progress Towards Goals Progress Towards Goals Progressing Toward Goals Assessment Summary Assessment Pt. demonstrated improved stair management with improved endurance. Pt. was able to reciprocal advance LLE ascending and descending stairs, but continued step-to with RLE. Roberto+1 for L knee flexion and safety. Cues for weight shifting, pushing through hand of RUE instead of elbow, and erect posture. Had Pt perform step lunges to second 6 step for improved fascilitation of hip flexors, flexibility, weight bearing, and postural stability on stairs. Required cues for bearing weight through LLE once advanced, weight distribution in standing, and anterior/posterior shifting with LLE advanced. Pt. cued for slower reps on sci fit to improve quality of motion and improve IR of LLE. Pt. reported improved stability of LLE post tx. Noted improvement in RLE step through pattern, with R toes advancing past left more often . Pt will benefit from continued PT to improve strength, balance, and functional mobility. Physical Therapy Plan Frequency and Duration Frequency of Treatment 2x/Week Duration of Treatment 12 wks Plan of Care Start Date 03/24/21 Plan of Care End Date 06/24/21 Therapeutic Interventions Therapeutic Interventions Aquatic Therapy,Balance Training,Gait Training,Home Exercise Program,Neuromuscular Re-education,Orthotic/ Prosthetic Management,Patient/ Caregiver Education,Self-Care/ Home Management,Taping, Therapeutic Activities, Therapeutic Exercises Modalities Cold Pack/Ice Massage,Hot Packs Next Visit Focus/Plan Next Note Type Treatment Note Next Visit Plan Continue PT for gait training, neuro re-ed, functional strengthening, manual techniques as indicated for left LE joint and soft tissue mobility. Continue stairs and compliant surface gait training.
--- NOTE | 2021-03-30 11:24 | PT.OTN ---
Current Diagnoses Hemiplegia, unspecified affecting unspecified side (03/30/21) Difficulty in walking, not elsewhere classified (03/30/21) Weakness (03/30/21) History of falling (03/30/21) Physical Therapy Treatment Note PT-OP-A Visit Information Start: 05/28/19 08:11 Freq: Status: Active Protocol: Document 03/30/21 10:38 SP (Rec: 03/30/21 11:49 SP [id number]) Out-Patient Physical Therapy Visit Information Visit Information Visit Type Treatment Note Visit Note Pt 8 min late for appt today. New Caregiver Sarah Kinsey ( female) attended and initiated caregiver training, gait belt w/ wrap, scifit, stair mgt. Visit Start Time 10:38 Visit Stop Time 11:24 Total Visit Minutes 46 Visit Number 103 Number of TRAILER SECTIONS ASSEMBLER Visits 2 PT-OP-B Current Condition Start: 05/28/19 08:11 Freq: Status: Active Protocol: Document 06/04/20 11:15 SAK (Rec: 06/05/20 16:34 SAK [id number]) Current Condition History of Current Condition Onset Date 2014 Current Complaints weakness, requires assistance with all mobility and household tasks History of Current Condition Reports that she suffered a stroke in 2014 after surgery for brain aneurysm. CVA caused weakness on the left side of her body, gait and balance difficulty, seizures. PT-OP-C Subjective Start: 05/28/19 08:11 Freq: Status: Active Protocol: Document 03/30/21 10:38 SP (Rec: 03/30/21 11:49 SP [id number]) OP-PT Subjective Patient Comments Patient Comments Pt reports her L>R inner thigh were good muscle soreness after last tx with many stair training performed. Pt arrived today with new caregiver Sarah Kinsey. Pt stated she will be assisting her 5 days/ wk 10- 130, Sarah past experiences with more functional clinents so would like instructioning on functional activities to assist Adelaide with during her tx. PT-OP-D Balance Start: 05/28/19 08:11 Freq: Status: Active Protocol: Document 05/29/19 14:30 SAK (Rec: 05/30/19 14:24 SAK [id number]) OP-PT Balance Assessment Sitting Balance Static Sitting Balance Ability Good Dynamic Sitting Balance Ability Fair Standing Balance Static Standing Balance Ability Good Dynamic Standing Balance Ability Fair Device Used hemiwalker right Tinetti Balance Assessment Sitting Balance Sitting Balance Steady, safe Arising from Chair Attempts to Arise Able, requires >1 attempt Standing Balance Immediate Standing Balance Steady with support Standing Balance Steady, wide stance Nudged Response Begins to fall Standing with Eyes Closed Unsteady Turning Step Pattern Turning 360 Degrees Discontinuous steps Stability Turning 360 Degrees Unsteady, grabs/staggers Sitting Down Sitting Down Uses arms or unsteady Gait and Step Initiation of Gait Hesitancy, mult. attempts Right Foot Step Length Does not pass stance ft. Right Foot Step Height Does not clear floor Left Foot Step Length Does not pass stance foot Left Foot Step Height Does not clear floor Step Description Step Symmetry Step length not equal Gait Description Path Description Mild/moderate deviation Trunk Description Marked sway or uses aide Walking Stance Heels apart Scoring and Interpretation Tinetti Composite Score (points) 6 Interpretation of Scores High risk for falls(< 19) Herrera Fall Scale Copyright Permission PT-OP-E Functional Tests Start: 05/28/19 08:11 Freq: Status: Active Protocol: Document 05/26/20 11:15 [facility] (Rec: 05/26/20 17:04 [facility] [id number]) Functional Tests 2 Minute Walk Test Distance 39 ft Device Used single point cane Comments derotation application of level 4 theraband to decrease excess ER right LE PT-OP-G Mobility & Gait Start: 05/28/19 08:11 Freq: Status: Active Protocol: Document 05/26/20 11:15 [facility] (Rec: 05/26/20 17:04 [facility] [id number]) OP Mobility Evaluation Bed Mobility Rolling min assist to right CGA to left Supine to and from Sit min assist to right CGA to left Transfers Sit to Stand CGA to min assist without UE use Bed to Chair Transfers requires use of right UE but able to do with SBA Floor Transfers unable PT-OP-H Neuro Start: 05/28/19 08:11 Freq: Status: Active Protocol: Document 05/29/19 14:30 [facility] (Rec: 05/30/19 14:24 [facility] [id number]) Sensation Evaluation Gross Sensation Gross Sensation Left UE Impaired,Left LE Impaired Sensation Description Paresthesia,Numbness Coordination Evaluation Lower Extremity Tests Left Alternate Heel to Knee; Heel to Toe Test Moderate Impairment Heel on Boles Test Moderate Impairment Foot Tapping Test Moderate Impairment PT-OP-K Range of Motion Start: 05/28/19 08:11 Freq: Status: Active Protocol: Document 05/26/20 11:15 SAK (Rec: 05/26/20 17:04 SAK [id number]) Hip Goniometric Range of Motion Hip jake Hip ROM WFL Yes Comments actively right LE, passively left LE Knee Goniometric Range of Motion Knee jake Knee ROM WFL Yes Ankle and Foot Goniometric Range of Motion Ankle and Foot Left Passive Ankle/Foot ROM WFL No Left Active Ankle/Foot ROM WFL No PT-OP-M Strength Start: 05/28/19 08:11 Freq: Status: Active Protocol: Document 05/26/20 11:15 SAK (Rec: 05/26/20 17:04 SAK [id number]) Hip Strength Hip Manual Muscle Testing Left Flexion (L2) 3- Fair- Extension (S1) 2 Poor Abduction 2+ Poor+ External Rotation 3- Fair- Internal Rotation 3+ Fair+ Right Flexion (L2) 4 Good Extension (S1) 4- Good- Abduction 4 Good External Rotation 3+ Fair+ Internal Rotation 4- Good- PT-OP-Q Treatments Start: 05/28/19 08:11 Freq: Status: Active Protocol: Document 03/30/21 10:38 SP (Rec: 03/30/21 11:49 SP [id number]) Cardio Equipment Recumbent Stepper (Sci-Fit) Duration (Minutes) 10 Resistance 2 Seat Position 10 Other Flat shoe w/o AFO on L. increased cues for LLE. Gait Training Gait Activity gait w/ AD no wrapping Description w/ TB wrapping w/ metronome 60bpm Device Used SPC Level of Assistance SBA- CGA Surface stable Distance/Duration 110', 40' x2 Treatment Focus L knee flexion, hip IR, wt shift to left, step-through gait Comments cued small step LLE, bigger step RLE: 2 pt gait and LLE awareness of adduction to decrease L hip ER. Metronome 60bpm- (didn't utilize this tx ) stair mgt Device Used right handrail ascend, descend Level of Assistance min assist Surface CG- Min A w/ GB and wrapping- 4 steps x4 Treatment Focus increased weight shift left, decreased use right UE Comments Cues to maintain soft L knee with toes facing forward. Cues for weight shifting with contralateral LE advancement. Pt has increased difficulty/ anxiety descending, WB on LLE. Focus on step to gait for now with caregiver comfort. Manual Therapy Treatment Soft Tissue Mobilization L calf Body Location L gastroc, soleus, peroneals. Mobilization Type Cross-Friction,Myofascial Release,Sustained Pressure, Other Intensity/Depth Moderate Body Position Sitting Comments (seated on scifit) ITB, peroneal Body Location R peroneal Mobilization Type Cross-Friction Intensity/Depth Moderate Body Position Sitting Comments good tolerance, it makes it feel less tight, much better. Joint Mobilizations MTPs, talocrual mobs, rotation forefoot Joint L Grade II Body Position Sitting Comments good feedback response manual MWM support foot/ ankle seated on scifit w/ L knee bent, noted decrease plantar and inversion tone. Self-Care/Home Management Treatment Education Patient Education Body Mechanics,Posture,Safety Caregiver Education Extra time spent on caregiver training with [employer] [place], new staff from same company. Education with her assist for support dont gait belt and wrapping, scifit, gait, stairs, TRAILER SECTIONS ASSEMBLER demo with pt then caregiver carryover assist with good understanding reasoning and good related questions. Other Education Education on importance if caregiver able to assist cardio at local fitness center using recumbent stepper for strengthening carryover outside of PT. Caregiver sees benefits and goal of patient to make part of their time of support. PT-OP-R Modalities Start: 05/28/19 08:11 Freq: Status: Active Protocol: Document 12/29/20 10:30 SP (Rec: 12/29/20 11:44 SP [id number]) Electric Stimulation Electric Stimulation Functional Electric Stimulation Body Location L hand/ forearm extensors Duration (Minutes) 2 Patient Position Sitting Comments NMES- education on placement of pad for muscular feedback extension based- check self placement understanding. PT-OP-T Assessment and Plan Start: 05/28/19 08:11 Freq: Status: Active Protocol: Document 03/30/21 10:38 SP (Rec: 03/30/21 11:49 SP [id number]) Physical Therapy Assessment Goals Five Impairment gait speed not adequate for safe community ambulation Intermediate Goal (LTG) Patient able to ambulate 300' in 6 min. TUG score no greater than 30 sec 06/02/20: 134' 08/28/20: 144', likely not as high due to new shoes and wearing old AFO because fits better in new shoes. Requires level 4 theraband for derotation of left LE into more neutral position for gait . 09/19/20: 146 ft 6 min w/ QC and Tb wrapping to LLE. 11/13/20: 153 ft CG w/ SPC 2>3 pt gait w/out metronome w/ reported L glut/ lateral leg burn pain, 2 step brief stand breaks. 11/24/20: progressing 173.7 ft using SPC, predominently 2 pt gait. TUG score 59 sec using SP 01/27/21: TUG 55 sec. , 6 min walk test 199.9 ft with SPC 03/19/21: 6 min walk test 165' , TUG 1:20. Continue with use of theraband for derotation of excess ER left LE with gait . LTG Duration 06/30/21 Four Impairment requires assistance with bed mobility and transfers Short Term Goal (STG) Patient will be able to perform all bed mobility independently to improve her functional independence. 10/31/19: good goal progress 06/02/20:inconsistent, but min assist most times 11/24/20: Met goal: pt is independent in supine>sit. STG Duration goal met ( independent 11/24/20 ) Spice Miller Goal (LTG) Patient will be able to perform a floor transfer with SB to min assist. 5x sit to stand score in no more than 15 sec as measure of functional strength for transfers 10/31/19: max assist today 01/02/20: has not been willing to try since 10/31/19 06/02/20: does not feel strong enough to try yet. 08/28/20: max assistance required 12/02/20: remains at max assist , not recently willing to attempt floor transfer. 5x sit to stand score 26 seconds 01/27/21: not tried recently. 03/24/21: 5x sit to stand 25 sec. No floor transfer today LTG Duration 06/30/21 Three Impairment weakness left UE and LE s/p CVA Intermediate Goal (LTG) Improve functional strength in left LE, as evidenced by ability to move from sit > < stand without use of UE's. 10/31/19: OT starts tomorrow. Good progress with sit to stand, though mostly using right UE and LE 01/02/20: Improving ability to perform, able to increase weight-bearing through left LE with cues, but still some use of right UE 05/26/20: With manual and visual feedback patient able to transfer sit to stand with only CG A. 08/28/20: inconsistent ability to move sit to stand without using UE's, but able to do transfer without physical assistance 11/24/20: Goal Met 01/27/21: more difficulty recently, having to use hands. Goal reactivated. 03/24/21: difficulty motor planning and performing sit to stand today. LTG Duration 06/30/21 Two Impairment balance dysfunction with high risk for falls Spice Miller Goal (LTG) Improve balance as evidenced by improvement in Tinnetti balance and gait score to low fall risk range to improve safety in the home and community. 10/31/19: remains high risk for falls 01/02/20: some improvement but still in high risk category 05/26/20: Tinetti score in high risk category 08/28/20: moderate risk for falls 12/02/20: remains in moderate risk for falls. 01/27/21: moderate risk for falls 03/24/21: no significant change noted today but again having poor day. LTG Duration 06/30/21 One Impairment requires armaan-walker for gait, limited to household gait Intermediate Goal (LTG) Patient able to ambulate with least restrictive device for functional community distances to improve her functional independence and quality of life. 10/30/19: no progress due to Covid 19. 11/02/19: able to ambulate with quad cane but with very slow speed, household distances, very short community distances . 05/26/20: Now able to ambulate with use of single point cane and use of L4 theraband wrapped around left LE to facilitate left LE internal rotation for improved alignment. Patient unable to don the theraband on her own. Gait is for short distances and very slow at 39 ft in 2 min. 08/28/20: has demonstrated improved gait ability, still using theraband for derotation of LE for more neutral position. Able to consistenly use quad cane and is increasing stride length especially with cues. Now able to ascend and descend 4 stairs with min assist using railing. Mod assist on 6 stairs. 12/02/20: Patient ambulating with SPC, mostly household but some community distances, improved gait alignment with use of theraband for improved alignment. Patient not consistently able to ambulate community distances due to pain in her left LE, and lack of neurological control left LE. Patient may benefit from modification to her current AFO or fabrication of new AFO. 173 ft in 6 minutes 01/27/21: using SPC. Limitations due to left foot, knee and hip pain, right wrist pain 6 min walk test improved to 199.9 feet today 03/24/21: slower 6 min walk test today as above. Has had modification to her AFO with some improvement in her function, but had poor day today. LTG Duration 06/30/21 Assessment Summary Assessment Extra time spent caregiver training with pt's new staff including recumbent bike use and minimal support for alignment needed for success, stair mgt and gait using GB and Tb wrapping. Pt and caregiver improved understanding set up and benefits of personal goals for support time has carryover at home activities. Pt Physical Therapy Plan Frequency and Duration Frequency of Treatment 2x/Week Duration of Treatment 12 wks Plan of Care Start Date 03/24/21 Plan of Care End Date 06/24/21 Therapeutic Interventions Therapeutic Interventions Aquatic Therapy,Balance Training,Gait Training,Home Exercise Program,Neuromuscular Re-education,Orthotic/ Prosthetic Management,Patient/ Caregiver Education,Self-Care/ Home Management,Taping, Therapeutic Activities, Therapeutic Exercises Modalities Cold Pack/Ice Massage,Hot Packs Next Visit Focus/Plan Next Note Type Treatment Note Next Visit Plan Continue PT: gait without AFO in //bar for LLE WB and ankle strategies, caregiver training with new staff. POC: gait training, neuro re- ed, functional strengthening, manual techniques as indicated for left LE joint and soft tissue mobility. Continue stairs and compliant surface gait training.
--- NOTE | 2021-04-07 14:56 | PT.OTN ---
Current Diagnoses Hemiplegia, unspecified affecting unspecified side (04/07/21) Difficulty in walking, not elsewhere classified (04/07/21) Weakness (04/07/21) History of falling (04/07/21) Physical Therapy Treatment Note PT-OP-A Visit Information Start: 05/28/19 08:11 Freq: Status: Active Protocol: Document 04/07/21 10:45 SAK (Rec: 04/07/21 11:24 SAK [id number]) Out-Patient Physical Therapy Visit Information Visit Information Visit Type Treatment Note Visit Note New Caregiver Sarah Kinsey ( female) attended to continue caregiver training. Visit Start Time 10:38 Visit Stop Time 11:24 Total Visit Minutes 46 Visit Number [phone] Number of DIE REPAIRER STAMPING Visits 2 PT-OP-B Current Condition Start: 05/28/19 08:11 Freq: Status: Active Protocol: Document 06/04/20 11:15 SAK (Rec: 06/05/20 16:34 SAK [id number]) Current Condition History of Current Condition Onset Date 2014 Current Complaints weakness, requires assistance with all mobility and household tasks History of Current Condition Reports that she suffered a stroke in 2014 after surgery for brain aneurysm. CVA caused weakness on the left side of her body, gait and balance difficulty, seizures. PT-OP-C Subjective Start: 05/28/19 08:11 Freq: Status: Active Protocol: Document 04/07/21 10:45 SAK (Rec: 04/07/21 11:24 SAK [id number]) OP-PT Subjective Patient Comments Patient Comments Patient reports tired and very tight; states she had hallucinations last night, didn't sleep well. Caregiver reports she is learning a lot about being a caregiver, yesterday trying to problem solve best parking next to curbs for safety for car transfers, requests recommendations. Receptive to instruction regarding HEP. PT-OP-D Balance Start: 05/28/19 08:11 Freq: Status: Active Protocol: Document 05/29/19 14:30 SAK (Rec: 05/30/19 14:24 SAK [id number]) OP-PT Balance Assessment Sitting Balance Static Sitting Balance Ability Good Dynamic Sitting Balance Ability Fair Standing Balance Static Standing Balance Ability Good Dynamic Standing Balance Ability Fair Device Used hemiwalker right Tinetti Balance Assessment Sitting Balance Sitting Balance Steady, safe Arising from Chair Attempts to Arise Able, requires >1 attempt Standing Balance Immediate Standing Balance Steady with support Standing Balance Steady, wide stance Nudged Response Begins to fall Standing with Eyes Closed Unsteady Turning Step Pattern Turning 360 Degrees Discontinuous steps Stability Turning 360 Degrees Unsteady, grabs/staggers Sitting Down Sitting Down Uses arms or unsteady Gait and Step Initiation of Gait Hesitancy, mult. attempts Right Foot Step Length Does not pass stance ft. Right Foot Step Height Does not clear floor Left Foot Step Length Does not pass stance foot Left Foot Step Height Does not clear floor Step Description Step Symmetry Step length not equal Gait Description Path Description Mild/moderate deviation Trunk Description Marked sway or uses aide Walking Stance Heels apart Scoring and Interpretation Tinetti Composite Score (points) 6 Interpretation of Scores High risk for falls(< 19) Herrera Fall Scale Copyright Permission PT-OP-E Functional Tests Start: 05/28/19 08:11 Freq: Status: Active Protocol: Document 05/26/20 11:15 SAK (Rec: 05/26/20 17:04 [facility] [id number]) Functional Tests 2 Minute Walk Test Distance 39 ft Device Used single point cane Comments derotation application of level 4 theraband to decrease excess ER right LE PT-OP-G Mobility & Gait Start: 05/28/19 08:11 Freq: Status: Active Protocol: Document 05/26/20 11:15 SAK (Rec: 05/26/20 17:04 [facility] [id number]) OP Mobility Evaluation Bed Mobility Rolling min assist to right CGA to left Supine to and from Sit min assist to right CGA to left Transfers Sit to Stand CGA to min assist without UE use Bed to Chair Transfers requires use of right UE but able to do with SBA Floor Transfers unable PT-OP-H Neuro Start: 05/28/19 08:11 Freq: Status: Active Protocol: Document 05/29/19 14:30 SAK (Rec: 05/30/19 14:24 SAK [id number]) Sensation Evaluation Gross Sensation Gross Sensation Left UE Impaired,Left LE Impaired Sensation Description Paresthesia,Numbness Coordination Evaluation Lower Extremity Tests Left Alternate Heel to Knee; Heel to Toe Test Moderate Impairment Heel on Boles Test Moderate Impairment Foot Tapping Test Moderate Impairment PT-OP-K Range of Motion Start: 05/28/19 08:11 Freq: Status: Active Protocol: Document 05/26/20 11:15 SAK (Rec: 05/26/20 17:04 SAK [id number]) Hip Goniometric Range of Motion Hip jake Hip ROM WFL Yes Comments actively right LE, passively left LE Knee Goniometric Range of Motion Knee jake Knee ROM WFL Yes Ankle and Foot Goniometric Range of Motion Ankle and Foot Left Passive Ankle/Foot ROM WFL No Left Active Ankle/Foot ROM WFL No PT-OP-M Strength Start: 05/28/19 08:11 Freq: Status: Active Protocol: Document 05/26/20 11:15 [facility] (Rec: 05/26/20 17:04 [facility] [id number]) Hip Strength Hip Manual Muscle Testing Left Flexion (L2) 3- Fair- Extension (S1) 2 Poor Abduction 2+ Poor+ External Rotation 3- Fair- Internal Rotation 3+ Fair+ Right Flexion (L2) 4 Good Extension (S1) 4- Good- Abduction 4 Good External Rotation 3+ Fair+ Internal Rotation 4- Good- PT-OP-Q Treatments Start: 05/28/19 08:11 Freq: Status: Active Protocol: Document 04/07/21 10:45 [facility] (Rec: 04/07/21 11:24 [facility] [id number]) Cardio Equipment Recumbent Stepper (Sci-Fit) Duration (Minutes) 10 Resistance 2 Seat Position 10 Other 1 mile Therapeutic Exercises Supine Exercises SKTC Reps/Minutes 2x30 piriformis stretch Reps/Minutes 2x Comments passive gastroc stretch Supine Exercise Name manual stretch calf Side left Equipment Used in supine on table hamstring stretch Supine Exercise Name AAROM w/ caregiver education and support Side left Equipment Used manual assist AAROM using L6 TBj Reps/Minutes 2x30 sec Comments cued slow movement into patient feedback: hip flex/ knee ext/ hip add alejandro bridges Reps/Minutes 7x Comments Mod A for maintaining L knee mid alignment Gait Training Gait Activity gait w/ AD no wrapping Description w/ TB wrapping w/ metronome 60bpm Device Used SPC Level of Assistance SBA- CGA Surface stable Distance/Duration 75', 60', 55' Treatment Focus L knee flexion, hip IR, wt shift to left, step-through gait Comments cued small step LLE, bigger step RLE: 2 pt gait and LLE awareness of adduction to decrease L hip ER. Metronome 60bpm Manual Therapy Treatment Soft Tissue Mobilization L calf Body Location L gastroc, soleus, peroneals. Mobilization Type Cross-Friction,Myofascial Release,Sustained Pressure, Other Intensity/Depth Moderate Body Position Sitting Comments (seated on scifit) ITB, peroneal Body Location R peroneal Mobilization Type Cross-Friction Intensity/Depth Moderate Body Position Sitting Comments good tolerance, it makes it feel less tight, much better. Joint Mobilizations MTPs, talocrual mobs, rotation forefoot Joint L Grade II Body Position Sitting Comments good feedback response manual MWM support foot/ ankle seated on scifit w/ L knee bent, noted decrease plantar and inversion tone. Self-Care/Home Management Treatment Education Patient Education Body Mechanics,Posture,Safety Caregiver Education Caregiver training regarding stretching component of HEP; to bring folder of written HEP to make sure has pictures for all. Review of correct application of theraband with caregiver, adjustment at waist belt if not providing enough rotation correction; caregiver demonstrated good understanding. Other Education Education on importance if caregiver able to assist cardio at local fitness center using recumbent stepper for strengthening carryover outside of PT. Caregiver sees benefits and goal of patient to make part of their time of support. Patient reports company won't allow this. PT-OP-R Modalities Start: 05/28/19 08:11 Freq: Status: Active Protocol: Document 12/29/20 10:30 SP (Rec: 12/29/20 11:44 SP [id number]) Electric Stimulation Electric Stimulation Functional Electric Stimulation Body Location L hand/ forearm extensors Duration (Minutes) 2 Patient Position Sitting Comments NMES- education on placement of pad for muscular feedback extension based- check self placement understanding. PT-OP-T Assessment and Plan Start: 05/28/19 08:11 Freq: Status: Active Protocol: Document 04/07/21 10:45 SAK (Rec: 04/07/21 11:24 SAK [id number]) Physical Therapy Assessment Goals Five Impairment gait speed not adequate for safe community ambulation Intermediate Goal (LTG) Patient able to ambulate 300' in 6 min. TUG score no greater than 30 sec 06/02/20: 134' 08/28/20: 144', likely not as high due to new shoes and wearing old AFO because fits better in new shoes. Requires level 4 theraband for derotation of left LE into more neutral position for gait . 09/19/20: 146 ft 6 min w/ QC and Tb wrapping to LLE. 11/13/20: 153 ft CG w/ SPC 2>3 pt gait w/out metronome w/ reported L glut/ lateral leg burn pain, 2 step brief stand breaks. 11/24/20: progressing 173.7 ft using SPC, predominently 2 pt gait. TUG score 59 sec using SP 01/27/21: TUG 55 sec. , 6 min walk test 199.9 ft with SPC 03/19/21: 6 min walk test 165' , TUG 1:20. Continue with use of theraband for derotation of excess ER left LE with gait . LTG Duration 06/30/21 Four Impairment requires assistance with bed mobility and transfers Short Term Goal (STG) Patient will be able to perform all bed mobility independently to improve her functional independence. 10/31/19: good goal progress 06/02/20:inconsistent, but min assist most times 11/24/20: Met goal: pt is independent in supine>sit. STG Duration goal met ( independent 11/24/20 ) Intermediate Goal (LTG) Patient will be able to perform a floor transfer with SB to min assist. 5x sit to stand score in no more than 15 sec as measure of functional strength for transfers 10/31/19: max assist today 01/02/20: has not been willing to try since 10/31/19 06/02/20: does not feel strong enough to try yet. 08/28/20: max assistance required 12/02/20: remains at max assist , not recently willing to attempt floor transfer. 5x sit to stand score 26 seconds 01/27/21: not tried recently. 03/24/21: 5x sit to stand 25 sec. No floor transfer today LTG Duration 06/30/21 Three Impairment weakness left UE and LE s/p CVA Intermediate Goal (LTG) Improve functional strength in left LE, as evidenced by ability to move from sit > < stand without use of UE's. 10/31/19: OT starts tomorrow. Good progress with sit to stand, though mostly using right UE and LE 01/02/20: Improving ability to perform, able to increase weight-bearing through left LE with cues, but still some use of right UE 05/26/20: With manual and visual feedback patient able to transfer sit to stand with only CG A. 08/28/20: inconsistent ability to move sit to stand without using UE's, but able to do transfer without physical assistance 11/24/20: Goal Met 01/27/21: more difficulty recently, having to use hands. Goal reactivated. 03/24/21: difficulty motor planning and performing sit to stand today. LTG Duration 06/30/21 Two Impairment balance dysfunction with high risk for falls Insurance Associate Goal (LTG) Improve balance as evidenced by improvement in Tinnetti balance and gait score to low fall risk range to improve safety in the home and community. 10/31/19: remains high risk for falls 01/02/20: some improvement but still in high risk category 05/26/20: Tinetti score in high risk category 08/28/20: moderate risk for falls 12/02/20: remains in moderate risk for falls. 01/27/21: moderate risk for falls 03/24/21: no significant change noted today but again having poor day. LTG Duration 06/30/21 One Impairment requires armaan-walker for gait, limited to household gait Intermediate Goal (LTG) Patient able to ambulate with least restrictive device for functional community distances to improve her functional independence and quality of life. 10/30/19: no progress due to Covid 19. 11/02/19: able to ambulate with quad cane but with very slow speed, household distances, very short community distances . 05/26/20: Now able to ambulate with use of single point cane and use of L4 theraband wrapped around left LE to facilitate left LE internal rotation for improved alignment. Patient unable to don the theraband on her own. Gait is for short distances and very slow at 39 ft in 2 min. 08/28/20: has demonstrated improved gait ability, still using theraband for derotation of LE for more neutral position. Able to consistenly use quad cane and is increasing stride length especially with cues. Now able to ascend and descend 4 stairs with min assist using railing. Mod assist on 6 stairs. 12/02/20: Patient ambulating with SPC, mostly household but some community distances, improved gait alignment with use of theraband for improved alignment. Patient not consistently able to ambulate community distances due to pain in her left LE, and lack of neurological control left LE. Patient may benefit from modification to her current AFO or fabrication of new AFO. 173 ft in 6 minutes 01/27/21: using SPC. Limitations due to left foot, knee and hip pain, right wrist pain 6 min walk test improved to 199.9 feet today 03/24/21: slower 6 min walk test today as above. Has had modification to her AFO with some improvement in her function, but had poor day today. LTG Duration 06/30/21 Assessment Summary Assessment Continued with caregiver training with caregiver attentive, taking notes. Cues for back protection, good body mechanics, listening to patient feedback with flexibility exercises. Caregiver demonstrating good understanding. Patient with low energy level and low mood today. Physical Therapy Plan Frequency and Duration Frequency of Treatment 2x/Week Duration of Treatment 12 wks Plan of Care Start Date 03/24/21 Plan of Care End Date 06/24/21 Therapeutic Interventions Therapeutic Interventions Aquatic Therapy,Balance Training,Gait Training,Home Exercise Program,Neuromuscular Re-education,Orthotic/ Prosthetic Management,Patient/ Caregiver Education,Self-Care/ Home Management,Taping, Therapeutic Activities, Therapeutic Exercises Modalities Cold Pack/Ice Massage,Hot Packs Next Visit Focus/Plan Next Note Type Treatment Note Next Visit Plan Continue PT: gait without AFO in //bar for LLE WB and ankle strategies, caregiver training with new staff. POC: gait training, neuro re- ed, functional strengthening, manual techniques as indicated for left LE joint and soft tissue mobility. Continue stairs and compliant surface gait training.
--- NOTE | 2021-04-09 12:33 | PT.OTN ---
Current Diagnoses Hemiplegia, unspecified affecting unspecified side (04/09/21) Difficulty in walking, not elsewhere classified (04/09/21) Weakness (04/09/21) History of falling (04/09/21) Physical Therapy Treatment Note PT-OP-A Visit Information Start: 05/28/19 08:11 Freq: Status: Active Protocol: Document 04/09/21 10:30 SAK (Rec: 04/09/21 11:15 SAK [id number]) Out-Patient Physical Therapy Visit Information Visit Information Visit Type Treatment Note Visit Note New Caregiver Sarah Kinsey ( female) attended to continue caregiver training. Visit Start Time 10:31 Visit Stop Time 11:24 Total Visit Minutes 46 Visit Number 105 Number of DISPATCHER MAINTENANCE SERVICE Visits 0 PT-OP-B Current Condition Start: 05/28/19 08:11 Freq: Status: Active Protocol: Document 06/04/20 11:15 SAK (Rec: 06/05/20 16:34 SAK [id number]) Current Condition History of Current Condition Onset Date 2014 Current Complaints weakness, requires assistance with all mobility and household tasks History of Current Condition Reports that she suffered a stroke in 2014 after surgery for brain aneurysm. CVA caused weakness on the left side of her body, gait and balance difficulty, seizures. PT-OP-C Subjective Start: 05/28/19 08:11 Freq: Status: Active Protocol: Document 04/09/21 10:30 SAK (Rec: 04/09/21 11:15 SAK [id number]) OP-PT Subjective Patient Comments Patient Comments Patient reports walking in [employer] with caregiver yesterday, I need to learn to weight-shift better to my left leg so my right doesn't tire as quickly. PT-OP-D Balance Start: 05/28/19 08:11 Freq: Status: Active Protocol: Document 05/29/19 14:30 SAK (Rec: 05/30/19 14:24 SAK [id number]) OP-PT Balance Assessment Sitting Balance Static Sitting Balance Ability Good Dynamic Sitting Balance Ability Fair Standing Balance Static Standing Balance Ability Good Dynamic Standing Balance Ability Fair Device Used hemiwalker right Tinetti Balance Assessment Sitting Balance Sitting Balance Steady, safe Arising from Chair Attempts to Arise Able, requires >1 attempt Standing Balance Immediate Standing Balance Steady with support Standing Balance Steady, wide stance Nudged Response Begins to fall Standing with Eyes Closed Unsteady Turning Step Pattern Turning 360 Degrees Discontinuous steps Stability Turning 360 Degrees Unsteady, grabs/staggers Sitting Down Sitting Down Uses arms or unsteady Gait and Step Initiation of Gait Hesitancy, mult. attempts Right Foot Step Length Does not pass stance ft. Right Foot Step Height Does not clear floor Left Foot Step Length Does not pass stance foot Left Foot Step Height Does not clear floor Step Description Step Symmetry Step length not equal Gait Description Path Description Mild/moderate deviation Trunk Description Marked sway or uses aide Walking Stance Heels apart Scoring and Interpretation Tinetti Composite Score (points) 6 Interpretation of Scores High risk for falls(< 19) Herrera Fall Scale Copyright Permission PT-OP-E Functional Tests Start: 05/28/19 08:11 Freq: Status: Active Protocol: Document 05/26/20 11:15 [facility] (Rec: 05/26/20 17:04 [facility] [id number]) Functional Tests 2 Minute Walk Test Distance 39 ft Device Used single point cane Comments derotation application of level 4 theraband to decrease excess ER right LE PT-OP-G Mobility & Gait Start: 05/28/19 08:11 Freq: Status: Active Protocol: Document 05/26/20 11:15 [facility] (Rec: 05/26/20 17:04 [facility] [id number]) OP Mobility Evaluation Bed Mobility Rolling min assist to right CGA to left Supine to and from Sit min assist to right CGA to left Transfers Sit to Stand CGA to min assist without UE use Bed to Chair Transfers requires use of right UE but able to do with SBA Floor Transfers unable PT-OP-H Neuro Start: 05/28/19 08:11 Freq: Status: Active Protocol: Document 05/29/19 14:30 [facility] (Rec: 05/30/19 14:24 [facility] [id number]) Sensation Evaluation Gross Sensation Gross Sensation Left UE Impaired,Left LE Impaired Sensation Description Paresthesia,Numbness Coordination Evaluation Lower Extremity Tests Left Alternate Heel to Knee; Heel to Toe Test Moderate Impairment Heel on Boles Test Moderate Impairment Foot Tapping Test Moderate Impairment PT-OP-K Range of Motion Start: 05/28/19 08:11 Freq: Status: Active Protocol: Document 05/26/20 11:15 SAK (Rec: 05/26/20 17:04 [facility] [id number]) Hip Goniometric Range of Motion Hip jake Hip ROM WFL Yes Comments actively right LE, passively left LE Knee Goniometric Range of Motion Knee jake Knee ROM WFL Yes Ankle and Foot Goniometric Range of Motion Ankle and Foot Left Passive Ankle/Foot ROM WFL No Left Active Ankle/Foot ROM WFL No PT-OP-M Strength Start: 05/28/19 08:11 Freq: Status: Active Protocol: Document 05/26/20 11:15 [facility] (Rec: 05/26/20 17:04 [facility] [id number]) Hip Strength Hip Manual Muscle Testing Left Flexion (L2) 3- Fair- Extension (S1) 2 Poor Abduction 2+ Poor+ External Rotation 3- Fair- Internal Rotation 3+ Fair+ Right Flexion (L2) 4 Good Extension (S1) 4- Good- Abduction 4 Good External Rotation 3+ Fair+ Internal Rotation 4- Good- PT-OP-Q Treatments Start: 05/28/19 08:11 Freq: Status: Active Protocol: Document 04/09/21 10:30 [facility] (Rec: 04/09/21 11:15 [facility] [id number]) Cardio Equipment Recumbent Stepper (Sci-Fit) Duration (Minutes) 10 Resistance 2 Seat Position 10 Other 1 mile Therapeutic Exercises Sitting Exercises HC stretch Side left Reps/Minutes 3 x 30 Comments manual Standing Exercises weight-shifting Standing Exercise Name side to side, front to back Comments manual facilitation for left knee stability Gait Training Gait Activity parallel bars Description forward, backward Device Used AFO donned left with heel lift , Level of Assistance R handrail Surface firm Distance/Duration 6' x4 laps Treatment Focus neutral alignment, weight- shift Comments Pt. improved weight shifting with increased time over LLE, and decreased use of UE support - grasped initially > fingertips. Use of mirror for visual feedback 6 min walk test Comments next session gait w/ AD no wrapping Description w/ TB wrapping w/ metronome 60bpm Device Used SPC Level of Assistance SBA- CGA Surface stable Distance/Duration 50' x 2 Treatment Focus L knee flexion, hip IR, wt shift to left, step-through gait Comments cued small step LLE, bigger step RLE: 2 pt gait and LLE awareness of adduction to decrease L hip ER. Metronome 60bpm Manual Therapy Treatment Joint Mobilizations MTPs, talocrual mobs, rotation forefoot Joint L Grade II Body Position Sitting Comments good feedback response manual MWM support foot/ ankle seated on scifit w/ L knee bent, noted decrease plantar and inversion tone. PT-OP-R Modalities Start: 05/28/19 08:11 Freq: Status: Active Protocol: Document 12/29/20 10:30 SP (Rec: 12/29/20 11:44 SP [id number]) Electric Stimulation Electric Stimulation Functional Electric Stimulation Body Location L hand/ forearm extensors Duration (Minutes) 2 Patient Position Sitting Comments NMES- education on placement of pad for muscular feedback extension based- check self placement understanding. PT-OP-T Assessment and Plan Start: 05/28/19 08:11 Freq: Status: Active Protocol: Document 04/09/21 10:30 SAK (Rec: 04/09/21 11:15 SAK [id number]) Physical Therapy Assessment Goals Five Impairment gait speed not adequate for safe community ambulation Tourist Information Assistant Goal (LTG) Patient able to ambulate 300' in 6 min. TUG score no greater than 30 sec 06/02/20: 134' 08/28/20: 144', likely not as high due to new shoes and wearing old AFO because fits better in new shoes. Requires level 4 theraband for derotation of left LE into more neutral position for gait . 09/19/20: 146 ft 6 min w/ QC and Tb wrapping to LLE. 11/13/20: 153 ft CG w/ SPC 2>3 pt gait w/out metronome w/ reported L glut/ lateral leg burn pain, 2 step brief stand breaks. 11/24/20: progressing 173.7 ft using SPC, predominently 2 pt gait. TUG score 59 sec using SP 01/27/21: TUG 55 sec. , 6 min walk test 199.9 ft with SPC 03/19/21: 6 min walk test 165' , TUG 1:20. Continue with use of theraband for derotation of excess ER left LE with gait . LTG Duration 06/30/21 Four Impairment requires assistance with bed mobility and transfers Short Term Goal (STG) Patient will be able to perform all bed mobility independently to improve her functional independence. 10/31/19: good goal progress 06/02/20:inconsistent, but min assist most times 11/24/20: Met goal: pt is independent in supine>sit. STG Duration goal met ( independent 11/24/20 ) Retirement Goal (LTG) Patient will be able to perform a floor transfer with SB to min assist. 5x sit to stand score in no more than 15 sec as measure of functional strength for transfers 10/31/19: max assist today 01/02/20: has not been willing to try since 10/31/19 06/02/20: does not feel strong enough to try yet. 08/28/20: max assistance required 12/02/20: remains at max assist , not recently willing to attempt floor transfer. 5x sit to stand score 26 seconds 01/27/21: not tried recently. 03/24/21: 5x sit to stand 25 sec. No floor transfer today LTG Duration 06/30/21 Three Impairment weakness left UE and LE s/p CVA Tourist Information Assistant Goal (LTG) Improve functional strength in left LE, as evidenced by ability to move from sit > < stand without use of UE's. 10/31/19: OT starts tomorrow. Good progress with sit to stand, though mostly using right UE and LE 01/02/20: Improving ability to perform, able to increase weight-bearing through left LE with cues, but still some use of right UE 05/26/20: With manual and visual feedback patient able to transfer sit to stand with only CG A. 08/28/20: inconsistent ability to move sit to stand without using UE's, but able to do transfer without physical assistance 11/24/20: Goal Met 01/27/21: more difficulty recently, having to use hands. Goal reactivated. 03/24/21: difficulty motor planning and performing sit to stand today. LTG Duration 06/30/21 Two Impairment balance dysfunction with high risk for falls Tourist Information Assistant Goal (LTG) Improve balance as evidenced by improvement in Tinnetti balance and gait score to low fall risk range to improve safety in the home and community. 10/31/19: remains high risk for falls 01/02/20: some improvement but still in high risk category 05/26/20: Tinetti score in high risk category 08/28/20: moderate risk for falls 12/02/20: remains in moderate risk for falls. 01/27/21: moderate risk for falls 03/24/21: no significant change noted today but again having poor day. LTG Duration 06/30/21 One Impairment requires armaan-walker for gait, limited to household gait Retirement Goal (LTG) Patient able to ambulate with least restrictive device for functional community distances to improve her functional independence and quality of life. 10/30/19: no progress due to Covid 19. 11/02/19: able to ambulate with quad cane but with very slow speed, household distances, very short community distances . 05/26/20: Now able to ambulate with use of single point cane and use of L4 theraband wrapped around left LE to facilitate left LE internal rotation for improved alignment. Patient unable to don the theraband on her own. Gait is for short distances and very slow at 39 ft in 2 min. 08/28/20: has demonstrated improved gait ability, still using theraband for derotation of LE for more neutral position. Able to consistenly use quad cane and is increasing stride length especially with cues. Now able to ascend and descend 4 stairs with min assist using railing. Mod assist on 6 stairs. 12/02/20: Patient ambulating with SPC, mostly household but some community distances, improved gait alignment with use of theraband for improved alignment. Patient not consistently able to ambulate community distances due to pain in her left LE, and lack of neurological control left LE. Patient may benefit from modification to her current AFO or fabrication of new AFO. 173 ft in 6 minutes 01/27/21: using SPC. Limitations due to left foot, knee and hip pain, right wrist pain 6 min walk test improved to 199.9 feet today 03/24/21: slower 6 min walk test today as above. Has had modification to her AFO with some improvement in her function, but had poor day today. LTG Duration 06/30/21 Assessment Summary Assessment spent majority of session in parallel bars with weight- shifting and gait with visual feedback of mirror; much improved gait with use of mirror for feedback. Caregiver only here end of session during Sci-Fit but reports things are going well, she continues to learn, has been getting patient out of the house. Physical Therapy Plan Frequency and Duration Frequency of Treatment 2x/Week Duration of Treatment 12 wks Plan of Care Start Date 03/24/21 Plan of Care End Date 06/24/21 Therapeutic Interventions Therapeutic Interventions Aquatic Therapy,Balance Training,Gait Training,Home Exercise Program,Neuromuscular Re-education,Orthotic/ Prosthetic Management,Patient/ Caregiver Education,Self-Care/ Home Management,Taping, Therapeutic Activities, Therapeutic Exercises Modalities Cold Pack/Ice Massage,Hot Packs Next Visit Focus/Plan Next Note Type Treatment Note Next Visit Plan 6 min walk test, continue gait training, caregiver training, neuro re-ed, functional strengthening. Manual techniques tto improve soft tissue mobility
--- NOTE | 2021-04-12 12:16 | PT.OTN ---
Current Diagnoses Hemiplegia, unspecified affecting unspecified side (04/09/21) Difficulty in walking, not elsewhere classified (04/09/21) Weakness (04/09/21) History of falling (04/09/21) Physical Therapy Treatment Note PT-OP-A Visit Information Start: 05/28/19 08:11 Freq: Status: Active Protocol: Document 04/09/21 10:30 SAK (Rec: 04/09/21 11:15 SAK [id number]) Out-Patient Physical Therapy Visit Information Visit Information Visit Type Treatment Note Visit Note New Caregiver Sarah Kinsey ( female) attended to continue caregiver training. Visit Start Time 10:31 Visit Stop Time 11:24 Total Visit Minutes 46 Visit Number 105 Number of SUPERVISOR POWDER AND PRIMER CANNING Visits 0 PT-OP-B Current Condition Start: 05/28/19 08:11 Freq: Status: Active Protocol: Document 06/04/20 11:15 SAK (Rec: 06/05/20 16:34 SAK [id number]) Current Condition History of Current Condition Onset Date 2014 Current Complaints weakness, requires assistance with all mobility and household tasks History of Current Condition Reports that she suffered a stroke in 2014 after surgery for brain aneurysm. CVA caused weakness on the left side of her body, gait and balance difficulty, seizures. PT-OP-C Subjective Start: 05/28/19 08:11 Freq: Status: Active Protocol: Document 04/09/21 10:30 SAK (Rec: 04/09/21 11:15 SAK [id number]) OP-PT Subjective Patient Comments Patient Comments Patient reports walking in [employer] with caregiver yesterday, I need to learn to weight-shift better to my left leg so my right doesn't tire as quickly. PT-OP-D Balance Start: 05/28/19 08:11 Freq: Status: Active Protocol: Document 05/29/19 14:30 SAK (Rec: 05/30/19 14:24 SAK [id number]) OP-PT Balance Assessment Sitting Balance Static Sitting Balance Ability Good Dynamic Sitting Balance Ability Fair Standing Balance Static Standing Balance Ability Good Dynamic Standing Balance Ability Fair Device Used hemiwalker right Tinetti Balance Assessment Sitting Balance Sitting Balance Steady, safe Arising from Chair Attempts to Arise Able, requires >1 attempt Standing Balance Immediate Standing Balance Steady with support Standing Balance Steady, wide stance Nudged Response Begins to fall Standing with Eyes Closed Unsteady Turning Step Pattern Turning 360 Degrees Discontinuous steps Stability Turning 360 Degrees Unsteady, grabs/staggers Sitting Down Sitting Down Uses arms or unsteady Gait and Step Initiation of Gait Hesitancy, mult. attempts Right Foot Step Length Does not pass stance ft. Right Foot Step Height Does not clear floor Left Foot Step Length Does not pass stance foot Left Foot Step Height Does not clear floor Step Description Step Symmetry Step length not equal Gait Description Path Description Mild/moderate deviation Trunk Description Marked sway or uses aide Walking Stance Heels apart Scoring and Interpretation Tinetti Composite Score (points) 6 Interpretation of Scores High risk for falls(< 19) Herrera Fall Scale Copyright Permission PT-OP-E Functional Tests Start: 05/28/19 08:11 Freq: Status: Active Protocol: Document 05/26/20 11:15 [facility] (Rec: 05/26/20 17:04 [facility] [id number]) Functional Tests 2 Minute Walk Test Distance 39 ft Device Used single point cane Comments derotation application of level 4 theraband to decrease excess ER right LE PT-OP-G Mobility & Gait Start: 05/28/19 08:11 Freq: Status: Active Protocol: Document 05/26/20 11:15 [facility] (Rec: 05/26/20 17:04 [facility] [id number]) OP Mobility Evaluation Bed Mobility Rolling min assist to right CGA to left Supine to and from Sit min assist to right CGA to left Transfers Sit to Stand CGA to min assist without UE use Bed to Chair Transfers requires use of right UE but able to do with SBA Floor Transfers unable PT-OP-H Neuro Start: 05/28/19 08:11 Freq: Status: Active Protocol: Document 05/29/19 14:30 [facility] (Rec: 05/30/19 14:24 [facility] [id number]) Sensation Evaluation Gross Sensation Gross Sensation Left UE Impaired,Left LE Impaired Sensation Description Paresthesia,Numbness Coordination Evaluation Lower Extremity Tests Left Alternate Heel to Knee; Heel to Toe Test Moderate Impairment Heel on Boles Test Moderate Impairment Foot Tapping Test Moderate Impairment PT-OP-K Range of Motion Start: 05/28/19 08:11 Freq: Status: Active Protocol: Document 05/26/20 11:15 SAK (Rec: 05/26/20 17:04 [facility] [id number]) Hip Goniometric Range of Motion Hip jake Hip ROM WFL Yes Comments actively right LE, passively left LE Knee Goniometric Range of Motion Knee jake Knee ROM WFL Yes Ankle and Foot Goniometric Range of Motion Ankle and Foot Left Passive Ankle/Foot ROM WFL No Left Active Ankle/Foot ROM WFL No PT-OP-M Strength Start: 05/28/19 08:11 Freq: Status: Active Protocol: Document 05/26/20 11:15 [facility] (Rec: 05/26/20 17:04 [facility] [id number]) Hip Strength Hip Manual Muscle Testing Left Flexion (L2) 3- Fair- Extension (S1) 2 Poor Abduction 2+ Poor+ External Rotation 3- Fair- Internal Rotation 3+ Fair+ Right Flexion (L2) 4 Good Extension (S1) 4- Good- Abduction 4 Good External Rotation 3+ Fair+ Internal Rotation 4- Good- PT-OP-Q Treatments Start: 05/28/19 08:11 Freq: Status: Active Protocol: Document 04/09/21 10:30 [facility] (Rec: 04/09/21 11:15 [facility] [id number]) Cardio Equipment Recumbent Stepper (Sci-Fit) Duration (Minutes) 10 Resistance 2 Seat Position 10 Other 1 mile Therapeutic Exercises Sitting Exercises HC stretch Side left Reps/Minutes 3 x 30 Comments manual Standing Exercises weight-shifting Standing Exercise Name side to side, front to back Comments manual facilitation for left knee stability Gait Training Gait Activity parallel bars Description forward, backward Device Used AFO donned left with heel lift , Level of Assistance R handrail Surface firm Distance/Duration 6' x4 laps Treatment Focus neutral alignment, weight- shift Comments Pt. improved weight shifting with increased time over LLE, and decreased use of UE support - grasped initially > fingertips. Use of mirror for visual feedback 6 min walk test Comments next session gait w/ AD no wrapping Description w/ TB wrapping w/ metronome 60bpm Device Used SPC Level of Assistance SBA- CGA Surface stable Distance/Duration 50' x 2 Treatment Focus L knee flexion, hip IR, wt shift to left, step-through gait Comments cued small step LLE, bigger step RLE: 2 pt gait and LLE awareness of adduction to decrease L hip ER. Metronome 60bpm Manual Therapy Treatment Joint Mobilizations MTPs, talocrual mobs, rotation forefoot Joint L Grade II Body Position Sitting Comments good feedback response manual MWM support foot/ ankle seated on scifit w/ L knee bent, noted decrease plantar and inversion tone. PT-OP-R Modalities Start: 05/28/19 08:11 Freq: Status: Active Protocol: Document 12/29/20 10:30 [facility] (Rec: 12/29/20 11:44 [facility] [id number]) Electric Stimulation Electric Stimulation Functional Electric Stimulation Body Location L hand/ forearm extensors Duration (Minutes) 2 Patient Position Sitting Comments NMES- education on placement of pad for muscular feedback extension based- check self placement understanding. PT-OP-T Assessment and Plan Start: 05/28/19 08:11 Freq: Status: Active Protocol: Document 04/09/21 10:30 SAK (Rec: 04/09/21 11:15 SAK [id number]) Physical Therapy Assessment Goals Five Impairment gait speed not adequate for safe community ambulation Nuclear Worker Technician Goal (LTG) Patient able to ambulate 300' in 6 min. TUG score no greater than 30 sec 06/02/20: 134' 08/28/20: 144', likely not as high due to new shoes and wearing old AFO because fits better in new shoes. Requires level 4 theraband for derotation of left LE into more neutral position for gait . 09/19/20: 146 ft 6 min w/ QC and Tb wrapping to LLE. 11/13/20: 153 ft CG w/ SPC 2>3 pt gait w/out metronome w/ reported L glut/ lateral leg burn pain, 2 step brief stand breaks. 11/24/20: progressing 173.7 ft using SPC, predominently 2 pt gait. TUG score 59 sec using SP 01/27/21: TUG 55 sec. , 6 min walk test 199.9 ft with SPC 03/19/21: 6 min walk test 165' , TUG 1:20. Continue with use of theraband for derotation of excess ER left LE with gait . LTG Duration 06/30/21 Four Impairment requires assistance with bed mobility and transfers Short Term Goal (STG) Patient will be able to perform all bed mobility independently to improve her functional independence. 10/31/19: good goal progress 06/02/20:inconsistent, but min assist most times 11/24/20: Met goal: pt is independent in supine>sit. STG Duration goal met ( independent 11/24/20 ) Senior Living Goal (LTG) Patient will be able to perform a floor transfer with SB to min assist. 5x sit to stand score in no more than 15 sec as measure of functional strength for transfers 10/31/19: max assist today 01/02/20: has not been willing to try since 10/31/19 06/02/20: does not feel strong enough to try yet. 08/28/20: max assistance required 12/02/20: remains at max assist , not recently willing to attempt floor transfer. 5x sit to stand score 26 seconds 01/27/21: not tried recently. 03/24/21: 5x sit to stand 25 sec. No floor transfer today LTG Duration 06/30/21 Three Impairment weakness left UE and LE s/p CVA Nuclear Worker Technician Goal (LTG) Improve functional strength in left LE, as evidenced by ability to move from sit > < stand without use of UE's. 10/31/19: OT starts tomorrow. Good progress with sit to stand, though mostly using right UE and LE 01/02/20: Improving ability to perform, able to increase weight-bearing through left LE with cues, but still some use of right UE 05/26/20: With manual and visual feedback patient able to transfer sit to stand with only CG A. 08/28/20: inconsistent ability to move sit to stand without using UE's, but able to do transfer without physical assistance 11/24/20: Goal Met 01/27/21: more difficulty recently, having to use hands. Goal reactivated. 03/24/21: difficulty motor planning and performing sit to stand today. LTG Duration 06/30/21 Two Impairment balance dysfunction with high risk for falls Nuclear Worker Technician Goal (LTG) Improve balance as evidenced by improvement in Tinnetti balance and gait score to low fall risk range to improve safety in the home and community. 10/31/19: remains high risk for falls 01/02/20: some improvement but still in high risk category 05/26/20: Tinetti score in high risk category 08/28/20: moderate risk for falls 12/02/20: remains in moderate risk for falls. 01/27/21: moderate risk for falls 03/24/21: no significant change noted today but again having poor day. LTG Duration 06/30/21 One Impairment requires armaan-walker for gait, limited to household gait Senior Living Goal (LTG) Patient able to ambulate with least restrictive device for functional community distances to improve her functional independence and quality of life. 10/30/19: no progress due to Covid 19. 11/02/19: able to ambulate with quad cane but with very slow speed, household distances, very short community distances . 05/26/20: Now able to ambulate with use of single point cane and use of L4 theraband wrapped around left LE to facilitate left LE internal rotation for improved alignment. Patient unable to don the theraband on her own. Gait is for short distances and very slow at 39 ft in 2 min. 08/28/20: has demonstrated improved gait ability, still using theraband for derotation of LE for more neutral position. Able to consistenly use quad cane and is increasing stride length especially with cues. Now able to ascend and descend 4 stairs with min assist using railing. Mod assist on 6 stairs. 12/02/20: Patient ambulating with SPC, mostly household but some community distances, improved gait alignment with use of theraband for improved alignment. Patient not consistently able to ambulate community distances due to pain in her left LE, and lack of neurological control left LE. Patient may benefit from modification to her current AFO or fabrication of new AFO. 173 ft in 6 minutes 01/27/21: using SPC. Limitations due to left foot, knee and hip pain, right wrist pain 6 min walk test improved to 199.9 feet today 03/24/21: slower 6 min walk test today as above. Has had modification to her AFO with some improvement in her function, but had poor day today. LTG Duration 06/30/21 Assessment Summary Assessment spent majority of session in parallel bars with weight- shifting and gait with visual feedback of mirror; much improved gait with use of mirror for feedback. Caregiver only here end of session during Sci-Fit but reports things are going well, she continues to learn, has been getting patient out of the house. Physical Therapy Plan Frequency and Duration Frequency of Treatment 2x/Week Duration of Treatment 12 wks Plan of Care Start Date 03/24/21 Plan of Care End Date 06/24/21 Therapeutic Interventions Therapeutic Interventions Aquatic Therapy,Balance Training,Gait Training,Home Exercise Program,Neuromuscular Re-education,Orthotic/ Prosthetic Management,Patient/ Caregiver Education,Self-Care/ Home Management,Taping, Therapeutic Activities, Therapeutic Exercises Modalities Cold Pack/Ice Massage,Hot Packs Next Visit Focus/Plan Next Note Type Treatment Note Next Visit Plan 6 min walk test, continue gait training, caregiver training, neuro re-ed, functional strengthening. Manual techniques tto improve soft tissue mobility
--- NOTE | 2021-04-15 09:35 | PT.OTN ---
Current Diagnoses Hemiplegia, unspecified affecting unspecified side (04/14/21) Difficulty in walking, not elsewhere classified (04/14/21) Weakness (04/14/21) History of falling (04/14/21) Physical Therapy Treatment Note PT-OP-A Visit Information Start: 05/28/19 08:11 Freq: Status: Active Protocol: Document 04/14/21 11:15 [facility] (Rec: 04/14/21 11:26 [facility] [id number]) Out-Patient Physical Therapy Visit Information Visit Information Visit Type Treatment Note Visit Start Time 11:15 Visit Stop Time 12:00 Total Visit Minutes 45 Visit Number 106 Number of A AND P TECHNICIAN Visits 0 PT-OP-B Current Condition Start: 05/28/19 08:11 Freq: Status: Active Protocol: Document 06/04/20 11:15 SAK (Rec: 06/05/20 16:34 SAK [id number]) Current Condition History of Current Condition Onset Date 2014 Current Complaints weakness, requires assistance with all mobility and household tasks History of Current Condition Reports that she suffered a stroke in 2014 after surgery for brain aneurysm. CVA caused weakness on the left side of her body, gait and balance difficulty, seizures. PT-OP-C Subjective Start: 05/28/19 08:11 Freq: Status: Active Protocol: Document 04/14/21 11:15 [facility] (Rec: 04/14/21 11:26 [facility] [id number]) OP-PT Subjective Patient Comments Patient Comments pt reports she was feeling pretty good after she first got up today but after her car ride she felt stiff. She would like to try walking here from her apartment with her caregiver but wants to run this by Renetta first. Adelaide also reports she feels like she may have a UTI today. PT-OP-D Balance Start: 05/28/19 08:11 Freq: Status: Active Protocol: Document 05/29/19 14:30 [facility]AK (Rec: 05/30/19 14:24 SAK [id number]) OP-PT Balance Assessment Sitting Balance Static Sitting Balance Ability Good Dynamic Sitting Balance Ability Fair Standing Balance Static Standing Balance Ability Good Dynamic Standing Balance Ability Fair Device Used hemiwalker right Tinetti Balance Assessment Sitting Balance Sitting Balance Steady, safe Arising from Chair Attempts to Arise Able, requires >1 attempt Standing Balance Immediate Standing Balance Steady with support Standing Balance Steady, wide stance Nudged Response Begins to fall Standing with Eyes Closed Unsteady Turning Step Pattern Turning 360 Degrees Discontinuous steps Stability Turning 360 Degrees Unsteady, grabs/staggers Sitting Down Sitting Down Uses arms or unsteady Gait and Step Initiation of Gait Hesitancy, mult. attempts Right Foot Step Length Does not pass stance ft. Right Foot Step Height Does not clear floor Left Foot Step Length Does not pass stance foot Left Foot Step Height Does not clear floor Step Description Step Symmetry Step length not equal Gait Description Path Description Mild/moderate deviation Trunk Description Marked sway or uses aide Walking Stance Heels apart Scoring and Interpretation Tinetti Composite Score (points) 6 Interpretation of Scores High risk for falls(< 19) Herrera Fall Scale Copyright Permission PT-OP-E Functional Tests Start: 05/28/19 08:11 Freq: Status: Active Protocol: Document 05/26/20 11:15 [facility] (Rec: 05/26/20 17:04 [facility] [id number]) Functional Tests 2 Minute Walk Test Distance 39 ft Device Used single point cane Comments derotation application of level 4 theraband to decrease excess ER right LE PT-OP-G Mobility & Gait Start: 05/28/19 08:11 Freq: Status: Active Protocol: Document 05/26/20 11:15 [facility] (Rec: 05/26/20 17:04 [facility] [id number]) OP Mobility Evaluation Bed Mobility Rolling min assist to right CGA to left Supine to and from Sit min assist to right CGA to left Transfers Sit to Stand CGA to min assist without UE use Bed to Chair Transfers requires use of right UE but able to do with SBA Floor Transfers unable PT-OP-H Neuro Start: 05/28/19 08:11 Freq: Status: Active Protocol: Document 05/29/19 14:30 [facility] (Rec: 05/30/19 14:24 [facility] [id number]) Sensation Evaluation Gross Sensation Gross Sensation Left UE Impaired,Left LE Impaired Sensation Description Paresthesia,Numbness Coordination Evaluation Lower Extremity Tests Left Alternate Heel to Knee; Heel to Toe Test Moderate Impairment Heel on Boles Test Moderate Impairment Foot Tapping Test Moderate Impairment PT-OP-K Range of Motion Start: 05/28/19 08:11 Freq: Status: Active Protocol: Document 05/26/20 11:15 [facility] (Rec: 05/26/20 17:04 [facility] [id number]) Hip Goniometric Range of Motion Hip jake Hip ROM WFL Yes Comments actively right LE, passively left LE Knee Goniometric Range of Motion Knee jake Knee ROM WFL Yes Ankle and Foot Goniometric Range of Motion Ankle and Foot Left Passive Ankle/Foot ROM WFL No Left Active Ankle/Foot ROM WFL No PT-OP-M Strength Start: 05/28/19 08:11 Freq: Status: Active Protocol: Document 05/26/20 11:15 [facility] (Rec: 05/26/20 17:04 [facility] [id number]) Hip Strength Hip Manual Muscle Testing Left Flexion (L2) 3- Fair- Extension (S1) 2 Poor Abduction 2+ Poor+ External Rotation 3- Fair- Internal Rotation 3+ Fair+ Right Flexion (L2) 4 Good Extension (S1) 4- Good- Abduction 4 Good External Rotation 3+ Fair+ Internal Rotation 4- Good- PT-OP-Q Treatments Start: 05/28/19 08:11 Freq: Status: Active Protocol: Document 04/14/21 11:15 [facility] (Rec: 04/14/21 11:21 [facility] [id number]) Cardio Equipment Recumbent Stepper (Sci-Fit) Duration (Minutes) 10 Resistance 2 Seat Position 10 Other 1 mile Therapeutic Exercises Standing Exercises Stairs Side bilateral Equipment Used Rehab gym stairs Reps/Minutes 3x up/down Comments pt needing VC to bend L knee in order to clear step when ascending stairs minisquats Standing Exercise Name squats Equipment Used 18 chair Reps/Minutes 10x Comments no AFO; mirror for visual feedback marching Side bilateral Equipment Used //bars Reps/Minutes 2 min Comments CGA gait belt Gait Training Gait Activity stairs Description 4 stairs Device Used right railing, AFO, heel lift, theraband derotation wrap Level of Assistance CG assist, cues for alternating pattern Distance/Duration 1 set 10 6 stairs Treatment Focus alternating LE pattern facilitation Comments verbal and manual cues to increase weight shift to left LE, unlock left knee, alternating pattern as able, toes pointed forward PT-OP-R Modalities Start: 05/28/19 08:11 Freq: Status: Active Protocol: Document 12/29/20 10:30 [facility] (Rec: 12/29/20 11:44 [facility] [id number]) Electric Stimulation Electric Stimulation Functional Electric Stimulation Body Location L hand/ forearm extensors Duration (Minutes) 2 Patient Position Sitting Comments NMES- education on placement of pad for muscular feedback extension based- check self placement understanding. PT-OP-T Assessment and Plan Start: 05/28/19 08:11 Freq: Status: Active Protocol: Document 04/14/21 11:15 [facility] (Rec: 04/15/21 09:34 [facility] [id number]) Physical Therapy Assessment Assessment Summary Assessment Adelaide notes she had decreased energy today and was c/o a UTI, time was spent with her going to the bathroom and I asssited her with that. 6 min walk test was not performed today as she was more fatigued . I spoke to her care navigator about taking her to urgent care for UTI symptoms Physical Therapy Plan Frequency and Duration Frequency of Treatment 2x/Week Duration of Treatment 12 wks Plan of Care Start Date 03/24/21 Plan of Care End Date 06/24/21 Therapeutic Interventions Therapeutic Interventions Aquatic Therapy,Balance Training,Gait Training,Home Exercise Program,Neuromuscular Re-education,Orthotic/ Prosthetic Management,Patient/ Caregiver Education,Self-Care/ Home Management,Taping, Therapeutic Activities, Therapeutic Exercises Modalities Cold Pack/Ice Massage,Hot Packs Next Visit Focus/Plan Next Note Type Treatment Note Next Visit Plan 6 min walk test, continue gait training, caregiver training, neuro re-ed, functional strengthening. Manual techniques tto improve soft tissue mobility
--- NOTE | 2021-04-16 13:00 | PT.OTN ---
Current Diagnoses Hemiplegia, unspecified affecting unspecified side (04/16/21) Difficulty in walking, not elsewhere classified (04/16/21) Weakness (04/16/21) History of falling (04/16/21) Physical Therapy Treatment Note PT-OP-A Visit Information Start: 05/28/19 08:11 Freq: Status: Active Protocol: Document 04/16/21 12:15 SP (Rec: 04/16/21 13:03 SP [id number]) Out-Patient Physical Therapy Visit Information Visit Information Visit Type Treatment Note Visit Note New Caregiver (female) substituting today. Visit Start Time 12:15 Visit Stop Time 13:00 Total Visit Minutes 45 Visit Number 107 Number of PRESS SET UP PERSON Visits 1 Precautions Precautions Seizure disorder memory dysfunction PT-OP-B Current Condition Start: 05/28/19 08:11 Freq: Status: Active Protocol: Document 06/04/20 11:15 SAK (Rec: 06/05/20 16:34 SAK [id number]) Current Condition History of Current Condition Onset Date 2014 Current Complaints weakness, requires assistance with all mobility and household tasks History of Current Condition Reports that she suffered a stroke in 2014 after surgery for brain aneurysm. CVA caused weakness on the left side of her body, gait and balance difficulty, seizures. PT-OP-C Subjective Start: 05/28/19 08:11 Freq: Status: Active Protocol: Document 04/16/21 12:15 SP (Rec: 04/16/21 13:03 SP [id number]) OP-PT Subjective Patient Comments Patient Comments Pt reports was able to walk around [employer] without TB wrapping with focus on trying to get foot in best alignment about 40 min then went home to rest for 10 min before arrival today. States her dad and sister have asked if PT can work on getting in elevated truck to improve strength and decrease assist required from them. PT-OP-D Balance Start: 05/28/19 08:11 Freq: Status: Active Protocol: Document 05/29/19 14:30 SAK (Rec: 05/30/19 14:24 SAK [id number]) OP-PT Balance Assessment Sitting Balance Static Sitting Balance Ability Good Dynamic Sitting Balance Ability Fair Standing Balance Static Standing Balance Ability Good Dynamic Standing Balance Ability Fair Device Used hemiwalker right Tinetti Balance Assessment Sitting Balance Sitting Balance Steady, safe Arising from Chair Attempts to Arise Able, requires >1 attempt Standing Balance Immediate Standing Balance Steady with support Standing Balance Steady, wide stance Nudged Response Begins to fall Standing with Eyes Closed Unsteady Turning Step Pattern Turning 360 Degrees Discontinuous steps Stability Turning 360 Degrees Unsteady, grabs/staggers Sitting Down Sitting Down Uses arms or unsteady Gait and Step Initiation of Gait Hesitancy, mult. attempts Right Foot Step Length Does not pass stance ft. Right Foot Step Height Does not clear floor Left Foot Step Length Does not pass stance foot Left Foot Step Height Does not clear floor Step Description Step Symmetry Step length not equal Gait Description Path Description Mild/moderate deviation Trunk Description Marked sway or uses aide Walking Stance Heels apart Scoring and Interpretation Tinetti Composite Score (points) 6 Interpretation of Scores High risk for falls(< 19) Herrera Fall Scale Copyright Permission PT-OP-E Functional Tests Start: 05/28/19 08:11 Freq: Status: Active Protocol: Document 04/16/21 12:15 SP (Rec: 04/16/21 13:03 SP [id number]) Functional Tests 6 Minute Walk Test Distance 190 min Device Used SPC Comments cued decreased PT-OP-G Mobility & Gait Start: 05/28/19 08:11 Freq: Status: Active Protocol: Document 05/26/20 11:15 SAK (Rec: 05/26/20 17:04 SAK [id number]) OP Mobility Evaluation Bed Mobility Rolling min assist to right CGA to left Supine to and from Sit min assist to right CGA to left Transfers Sit to Stand CGA to min assist without UE use Bed to Chair Transfers requires use of right UE but able to do with SBA Floor Transfers unable PT-OP-H Neuro Start: 05/28/19 08:11 Freq: Status: Active Protocol: Document 05/29/19 14:30 SAK (Rec: 05/30/19 14:24 SAK [id number]) Sensation Evaluation Gross Sensation Gross Sensation Left UE Impaired,Left LE Impaired Sensation Description Paresthesia,Numbness Coordination Evaluation Lower Extremity Tests Left Alternate Heel to Knee; Heel to Toe Test Moderate Impairment Heel on Boles Test Moderate Impairment Foot Tapping Test Moderate Impairment PT-OP-K Range of Motion Start: 05/28/19 08:11 Freq: Status: Active Protocol: Document 05/26/20 11:15 SAK (Rec: 05/26/20 17:04 SAK [id number]) Hip Goniometric Range of Motion Hip jake Hip ROM WFL Yes Comments actively right LE, passively left LE Knee Goniometric Range of Motion Knee jaek Knee ROM WFL Yes Ankle and Foot Goniometric Range of Motion Ankle and Foot Left Passive Ankle/Foot ROM WFL No Left Active Ankle/Foot ROM WFL No PT-OP-M Strength Start: 05/28/19 08:11 Freq: Status: Active Protocol: Document 05/26/20 11:15 SAK (Rec: 05/26/20 17:04 SAK [id number]) Hip Strength Hip Manual Muscle Testing Left Flexion (L2) 3- Fair- Extension (S1) 2 Poor Abduction 2+ Poor+ External Rotation 3- Fair- Internal Rotation 3+ Fair+ Right Flexion (L2) 4 Good Extension (S1) 4- Good- Abduction 4 Good External Rotation 3+ Fair+ Internal Rotation 4- Good- PT-OP-Q Treatments Start: 05/28/19 08:11 Freq: Status: Active Protocol: Document 04/16/21 12:15 SP (Rec: 04/16/21 13:03 SP [id number]) Therapeutic Exercises Standing Exercises step ups Standing Exercise Name RHR up/down min A for LLE IR for proper knee alignment Resistance 4 step Equipment Used R HR Reps/Minutes x5 lead each LE Comments CGA, improved L knee flexion. Gait Training Gait Activity Step-tap on 4 block Description Alternating step tap to 4 block Device Used paralel bars Level of Assistance CGA, UE support on R Surface Firm Distance/Duration 10 ea Treatment Focus weight shifting, hip flexor fascilitation, targeted foot placement Comments cued for wt shift over stance LE for opp LE advancement. Cued to maintain upright posture, B weight shifting, hamstring and hip flexor fascilitation on L during advancement, and slow step on R w/support at anterior L knee support to prevent buckling w / cues for quad facilitation. 6 min walk test Description w/ wrapping clockwise LLE forfoot to anterior gait belt Device Used SPC Level of Assistance SBA- CGA Surface firm Distance/Duration 190 ft, decrease from 7 ft last performed Treatment Focus equal stance time, Comments cued small step LLE, bigger step RLE: 2 pt gait and LLE awareness of adduction to decrease L hip ER. Metronome 60> 70bpm. Cued for decreased even slight converstation until completed. wrapping was little shorter today increased L knee flexion little more unstable during midstance phase but didn't buckle or cause LOB. stairs Description 4 stairs Device Used right railing, AFO, heel lift, theraband derotation wrap Level of Assistance CG assist, cues for alternating pattern Distance/Duration 1 set 10 6 stairs Treatment Focus alternating LE pattern facilitation Comments verbal and manual cues to increase weight shift to left LE, unlock left knee, alternating pattern as able, toes pointed forward Neuro Re-Education Treatment Balance Activities step taps at rail Equipment 4 step, R rail Reps/Duration 2x5 BLE Comments w/ Tb wrapping Self-Care/Home Management Treatment Education Patient Education Body Mechanics,Posture,Safety Caregiver Education Pt and new caregiver training and education: Tb wrapping for longer distances gait to assist L hip/ foot IR. Body positioning stair mgt. Activities Self-Care/Home Management Activities 8 min Discussion on sequencing step up and pivot at top to sit assimulate getting into truck with RUE support. Requested if can have dad/ sister send her a pic of their trucks to assist in set up, also measure height of current side step rail, seat and handle can use from ground if can't bring truck to PT to use . Will set up and assess sequencing next tx. PT-OP-R Modalities Start: 05/28/19 08:11 Freq: Status: Active Protocol: Document 12/29/20 10:30 SP (Rec: 12/29/20 11:44 SP [id number]) Electric Stimulation Electric Stimulation Functional Electric Stimulation Body Location L hand/ forearm extensors Duration (Minutes) 2 Patient Position Sitting Comments NMES- education on placement of pad for muscular feedback extension based- check self placement understanding. PT-OP-T Assessment and Plan Start: 05/28/19 08:11 Freq: Status: Active Protocol: Document 04/16/21 12:15 SP (Rec: 04/16/21 13:03 SP [id number]) Physical Therapy Assessment Goals Five Impairment gait speed not adequate for safe community ambulation Fdc Goal (LTG) Patient able to ambulate 300' in 6 min. TUG score no greater than 30 sec 06/02/20: 134' 08/28/20: 144', likely not as high due to new shoes and wearing old AFO because fits better in new shoes. Requires level 4 theraband for derotation of left LE into more neutral position for gait . 09/19/20: 146 ft 6 min w/ QC and Tb wrapping to LLE. 11/13/20: 153 ft CG w/ SPC 2>3 pt gait w/out metronome w/ reported L glut/ lateral leg burn pain, 2 step brief stand breaks. 11/24/20: progressing 173.7 ft using SPC, predominently 2 pt gait. TUG score 59 sec using SP 01/27/21: TUG 55 sec. , 6 min walk test 199.9 ft with SPC 03/19/21: 6 min walk test 165' , TUG 1:20. Continue with use of theraband for derotation of excess ER left LE with gait . 04/16/21: 6MWT 190 ft w/ SPC and TB wrapping assist hip IR. LTG Duration 06/30/21 Four Impairment requires assistance with bed mobility and transfers Short Term Goal (STG) Patient will be able to perform all bed mobility independently to improve her functional independence. 10/31/19: good goal progress 06/02/20:inconsistent, but min assist most times 11/24/20: Met goal: pt is independent in supine>sit. STG Duration goal met ( independent 11/24/20 ) Fdc Goal (LTG) Patient will be able to perform a floor transfer with SB to min assist. 5x sit to stand score in no more than 15 sec as measure of functional strength for transfers 10/31/19: max assist today 01/02/20: has not been willing to try since 10/31/19 06/02/20: does not feel strong enough to try yet. 08/28/20: max assistance required 12/02/20: remains at max assist , not recently willing to attempt floor transfer. 5x sit to stand score 26 seconds 01/27/21: not tried recently. 03/24/21: 5x sit to stand 25 sec. No floor transfer today LTG Duration 06/30/21 Three Impairment weakness left UE and LE s/p CVA Library Attendant Goal (LTG) Improve functional strength in left LE, as evidenced by ability to move from sit > < stand without use of UE's. 10/31/19: OT starts tomorrow. Good progress with sit to stand, though mostly using right UE and LE 01/02/20: Improving ability to perform, able to increase weight-bearing through left LE with cues, but still some use of right UE 05/26/20: With manual and visual feedback patient able to transfer sit to stand with only CG A. 08/28/20: inconsistent ability to move sit to stand without using UE's, but able to do transfer without physical assistance 11/24/20: Goal Met 01/27/21: more difficulty recently, having to use hands. Goal reactivated. 03/24/21: difficulty motor planning and performing sit to stand today. LTG Duration 06/30/21 Two Impairment balance dysfunction with high risk for falls Library Attendant Goal (LTG) Improve balance as evidenced by improvement in Tinnetti balance and gait score to low fall risk range to improve safety in the home and community. 10/31/19: remains high risk for falls 01/02/20: some improvement but still in high risk category 05/26/20: Tinetti score in high risk category 08/28/20: moderate risk for falls 12/02/20: remains in moderate risk for falls. 01/27/21: moderate risk for falls 03/24/21: no significant change noted today but again having poor day. LTG Duration 06/30/21 One Impairment requires armaan-walker for gait, limited to household gait Fdc Goal (LTG) Patient able to ambulate with least restrictive device for functional community distances to improve her functional independence and quality of life. 10/30/19: no progress due to Covid 19. 11/02/19: able to ambulate with quad cane but with very slow speed, household distances, very short community distances . 05/26/20: Now able to ambulate with use of single point cane and use of L4 theraband wrapped around left LE to facilitate left LE internal rotation for improved alignment. Patient unable to don the theraband on her own. Gait is for short distances and very slow at 39 ft in 2 min. 08/28/20: has demonstrated improved gait ability, still using theraband for derotation of LE for more neutral position. Able to consistenly use quad cane and is increasing stride length especially with cues. Now able to ascend and descend 4 stairs with min assist using railing. Mod assist on 6 stairs. 12/02/20: Patient ambulating with SPC, mostly household but some community distances, improved gait alignment with use of theraband for improved alignment. Patient not consistently able to ambulate community distances due to pain in her left LE, and lack of neurological control left LE. Patient may benefit from modification to her current AFO or fabrication of new AFO. 173 ft in 6 minutes 01/27/21: using SPC. Limitations due to left foot, knee and hip pain, right wrist pain 6 min walk test improved to 199.9 feet today 03/24/21: slower 6 min walk test today as above. Has had modification to her AFO with some improvement in her function, but had poor day today. LTG Duration 06/30/21 Assessment Summary Assessment Pt little tired even in speech today when arrived, reported did really well walking for 40 min around [employer] but did go home for 10 min rest before tx today. Tx focused on 6MWT reassessment w/ occasional cues for limiting conversation and increase stride RLE with ability to increase metronome to 70 SPM today, stair mgt trng w/ emphasis on trunk alignment to improve wt shifting over LLE for increased stance time while providing support at anterior L knee to prevent buckling (Tb wrapping and AFO donned for stabillity support and alignment L foot). Pt good effort step taps/ step up/ downs required Min RUE contact rail during RLE advancement/ UE contact on SPC required LLE advancement but cues for trunk away from rail, and carryover trunk alignment away from R HR on stairs for functional strengthening and work toward activity of getting into family elevated truck vechicles. Discussed awareness of amount of endurance activity before PT due to tiring and could affect quality/ effort during tx. Physical Therapy Plan Frequency and Duration Frequency of Treatment 2x/Week Duration of Treatment 12 wks Plan of Care Start Date 03/24/21 Plan of Care End Date 06/24/21 Therapeutic Interventions Therapeutic Interventions Aquatic Therapy,Balance Training,Gait Training,Home Exercise Program,Neuromuscular Re-education,Orthotic/ Prosthetic Management,Patient/ Caregiver Education,Self-Care/ Home Management,Taping, Therapeutic Activities, Therapeutic Exercises Modalities Cold Pack/Ice Massage,Hot Packs Next Visit Focus/Plan Next Note Type Treatment Note Next Visit Plan Work on elevated step transfers to get into raised truck (dad, sister) for future travels so decrease assisted support from dad/ sister. Continue gait training, caregiver training, neuro re- ed, functional strengthening. Manual techniques to improve soft tissue mobility
--- NOTE | 2021-04-21 10:33 | PT.OTN ---
Current Diagnoses Hemiplegia, unspecified affecting unspecified side (04/21/21) Difficulty in walking, not elsewhere classified (04/21/21) Weakness (04/21/21) History of falling (04/21/21) Physical Therapy Treatment Note PT-OP-A Visit Information Start: 05/28/19 08:11 Freq: Status: Active Protocol: Document 04/21/21 09:47 SP (Rec: 04/21/21 11:52 SP [id number]) Out-Patient Physical Therapy Visit Information Visit Information Visit Type Treatment Note Visit Note caregiver doing errands this tx. 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 CVA caused weakness on the left side of her body, gait and balance difficulty, seizures. PT-OP-C Subjective Start: 05/28/19 08:11 Freq: Status: Active Protocol: Document 04/21/21 09:47 SP (Rec: 04/21/21 11:52 SP [id number]) OP-PT Subjective Patient Comments Patient Comments Pt reported R adductor and calf really tight, not sure if slept wrong. Did see walkin clinic and told positive UTI since tx with PT recommendation, just took last dose this am and feels better . Pt reported disappointed haven't moved yet, dad still looking for home closer to children. PT-OP-D Balance Start: 05/28/19 08:11 Freq: Status: Active Protocol: Document 05/29/19 14:30 SAK (Rec: 05/30/19 14:24 SAK [id number]) OP-PT Balance Assessment Sitting Balance Static Sitting Balance Ability Good Dynamic Sitting Balance Ability Fair Standing Balance Static Standing Balance Ability Good Dynamic Standing Balance Ability Fair Device Used hemiwalker right Tinetti Balance Assessment Sitting Balance Sitting Balance Steady, safe Arising from Chair Attempts to Arise Able, requires >1 attempt Standing Balance Immediate Standing Balance Steady with support Standing Balance Steady, wide stance Nudged Response Begins to fall Standing with Eyes Closed Unsteady Turning Step Pattern Turning 360 Degrees Discontinuous steps Stability Turning 360 Degrees Unsteady, grabs/staggers Sitting Down Sitting Down Uses arms or unsteady Gait and Step Initiation of Gait Hesitancy, mult. attempts Right Foot Step Length Does not pass stance ft. Right Foot Step Height Does not clear floor Left Foot Step Length Does not pass stance foot Left Foot Step Height Does not clear floor Step Description Step Symmetry Step length not equal Gait Description Path Description Mild/moderate deviation Trunk Description Marked sway or uses aide Walking Stance Heels apart Scoring and Interpretation Tinetti Composite Score (points) 6 Interpretation of Scores High risk for falls(< 19) Herrera Fall Scale Copyright Permission PT-OP-E Functional Tests Start: 05/28/19 08:11 Freq: Status: Active Protocol: Document 04/16/21 12:15 SP (Rec: 04/16/21 13:03 SP [id number]) Functional Tests 6 Minute Walk Test Distance 190 min Device Used SPC Comments cued decreased PT-OP-G Mobility & Gait Start: 05/28/19 08:11 Freq: Status: Active Protocol: Document 05/26/20 11:15 SAK (Rec: 05/26/20 17:04 SAK [id number]) OP Mobility Evaluation Bed Mobility Rolling min assist to right CGA to left Supine to and from Sit min assist to right CGA to left Transfers Sit to Stand CGA to min assist without UE use Bed to Chair Transfers requires use of right UE but able to do with SBA Floor Transfers unable PT-OP-H Neuro Start: 05/28/19 08:11 Freq: Status: Active Protocol: Document 05/29/19 14:30 SAK (Rec: 05/30/19 14:24 SAK [id number]) Sensation Evaluation Gross Sensation Gross Sensation Left UE Impaired,Left LE Impaired Sensation Description Paresthesia,Numbness Coordination Evaluation Lower Extremity Tests Left Alternate Heel to Knee; Heel to Toe Test Moderate Impairment Heel on Boles Test Moderate Impairment Foot Tapping Test Moderate Impairment PT-OP-K Range of Motion Start: 05/28/19 08:11 Freq: Status: Active Protocol: Document 05/26/20 11:15 SAK (Rec: 05/26/20 17:04 SAK [id number]) Hip Goniometric Range of Motion Hip jake Hip ROM WFL Yes Comments actively right LE, passively left LE Knee Goniometric Range of Motion Knee jake Knee ROM WFL Yes Ankle and Foot Goniometric Range of Motion Ankle and Foot Left Passive Ankle/Foot ROM WFL No Left Active Ankle/Foot ROM WFL No PT-OP-M Strength Start: 05/28/19 08:11 Freq: Status: Active Protocol: Document 05/26/20 11:15 SAK (Rec: 05/26/20 17:04 SAK [id number]) Hip Strength Hip Manual Muscle Testing Left Flexion (L2) 3- Fair- Extension (S1) 2 Poor Abduction 2+ Poor+ External Rotation 3- Fair- Internal Rotation 3+ Fair+ Right Flexion (L2) 4 Good Extension (S1) 4- Good- Abduction 4 Good External Rotation 3+ Fair+ Internal Rotation 4- Good- PT-OP-Q Treatments Start: 05/28/19 08:11 Freq: Status: Active Protocol: Document 04/21/21 09:47 SP (Rec: 04/21/21 11:52 SP [id number]) Cardio Equipment Recumbent Stepper (Sci-Fit) Duration (Minutes) 5 Resistance 2 Seat Position 8- decreased endurance today Other 1 mile- intermittent contact cues for L hip adduction- miles 0.55 miles Therapeutic Exercises Sitting Exercises HS curl AROM Side left Resistance AROM> TB #1 Equipment Used 18 chair Reps/Minutes 2x10 LAQ Side left Resistance AROM Equipment Used 18 chair Reps/Minutes 10x Comments with manual resistance Standing Exercises weight-shifting Standing Exercise Name side to side, front to back Resistance no AFO Equipment Used R HR Reps/Minutes 3 min Comments manual facilitation for left knee soft stability f/b/side stepping Standing Exercise Name f/side stepping R Equipment Used R HR; noAFO Reps/Minutes 10 ft each direction Comments required contact and max cuing for patterning and LLE lift assist/ fle Gait Training Gait Activity gait w/ AD no wrapping Description w/ TB wrapping w/ metronome 70bpm Device Used SPC Level of Assistance SBA- CGA Surface stable Distance/Duration 50' x 2 Treatment Focus L knee flexion, hip IR, wt shift to left, step-through RLE gait Comments cued small step LLE, bigger step RLE: 2 pt gait and LLE awareness of adduction to decrease L hip ER. Metronome 70 Manual Therapy Treatment Soft Tissue Mobilization L calf Body Location R calf, L adductor and calf Mobilization Type Myofascial Release,Strumming, Trigger Point Release Intensity/Depth Moderate Body Position seated scifit Comments good feedback response decreased tight muscles Neuro Re-Education Treatment Balance Activities hurdles Details forward RHR Equipment R rail, 4 tall green hurdles Reps/Duration 10 ft Comments Pt unable to attempt return hurdles with SPC on R, max cues for patterning and trunk alignment. PT-OP-R Modalities Start: 05/28/19 08:11 Freq: Status: Active Protocol: Document 12/29/20 10:30 SP (Rec: 12/29/20 11:44 SP [id number]) Electric Stimulation Electric Stimulation Functional Electric Stimulation Body Location L hand/ forearm extensors Duration (Minutes) 2 Patient Position Sitting Comments NMES- education on placement of pad for muscular feedback extension based- check self placement understanding. PT-OP-T Assessment and Plan Start: 05/28/19 08:11 Freq: Status: Active Protocol: Document 04/21/21 09:47 SP (Rec: 04/21/21 11:52 SP [id number]) Physical Therapy Assessment Goals Five Impairment gait speed not adequate for safe community ambulation Principal Data Architect Goal (LTG) Patient able to ambulate 300' in 6 min. TUG score no greater than 30 sec 06/02/20: 134' 08/28/20: 144', likely not as high due to new shoes and wearing old AFO because fits better in new shoes. Requires level 4 theraband for derotation of left LE into more neutral position for gait . 09/19/20: 146 ft 6 min w/ QC and Tb wrapping to LLE. 11/13/20: 153 ft CG w/ SPC 2>3 pt gait w/out metronome w/ reported L glut/ lateral leg burn pain, 2 step brief stand breaks. 11/24/20: progressing 173.7 ft using SPC, predominently 2 pt gait. TUG score 59 sec using SP 01/27/21: TUG 55 sec. , 6 min walk test 199.9 ft with SPC 03/19/21: 6 min walk test 165' , TUG 1:20. Continue with use of theraband for derotation of excess ER left LE with gait . 04/16/21: 6MWT 190 ft w/ SPC and TB wrapping assist hip IR. LTG Duration 06/30/21 Four Impairment requires assistance with bed mobility and transfers Short Term Goal (STG) Patient will be able to perform all bed mobility independently to improve her functional independence. 10/31/19: good goal progress 06/02/20:inconsistent, but min assist most times 11/24/20: Met goal: pt is independent in supine>sit. STG Duration goal met ( independent 11/24/20 ) Principal Data Architect Goal (LTG) Patient will be able to perform a floor transfer with SB to min assist. 5x sit to stand score in no more than 15 sec as measure of functional strength for transfers 10/31/19: max assist today 01/02/20: has not been willing to try since 10/31/19 06/02/20: does not feel strong enough to try yet. 08/28/20: max assistance required 12/02/20: remains at max assist , not recently willing to attempt floor transfer. 5x sit to stand score 26 seconds 01/27/21: not tried recently. 03/24/21: 5x sit to stand 25 sec. No floor transfer today LTG Duration 06/30/21 Three Impairment weakness left UE and LE s/p CVA [facility] Goal (LTG) Improve functional strength in left LE, as evidenced by ability to move from sit > < stand without use of UE's. 10/31/19: OT starts tomorrow. Good progress with sit to stand, though mostly using right UE and LE 01/02/20: Improving ability to perform, able to increase weight-bearing through left LE with cues, but still some use of right UE 05/26/20: With manual and visual feedback patient able to transfer sit to stand with only CG A. 08/28/20: inconsistent ability to move sit to stand without using UE's, but able to do transfer without physical assistance 11/24/20: Goal Met 01/27/21: more difficulty recently, having to use hands. Goal reactivated. 03/24/21: difficulty motor planning and performing sit to stand today. LTG Duration 06/30/21 Two Impairment balance dysfunction with high risk for falls Principal Data Architect Goal (LTG) Improve balance as evidenced by improvement in Tinnetti balance and gait score to low fall risk range to improve safety in the home and community. 10/31/19: remains high risk for falls 01/02/20: some improvement but still in high risk category 05/26/20: Tinetti score in high risk category 08/28/20: moderate risk for falls 12/02/20: remains in moderate risk for falls. 01/27/21: moderate risk for falls 03/24/21: no significant change noted today but again having poor day. LTG Duration 06/30/21 One Impairment requires armaan-walker for gait, limited to household gait Principal Data Architect Goal (LTG) Patient able to ambulate with least restrictive device for functional community distances to improve her functional independence and quality of life. 10/30/19: no progress due to Covid 19. 11/02/19: able to ambulate with quad cane but with very slow speed, household distances, very short community distances . 05/26/20: Now able to ambulate with use of single point cane and use of L4 theraband wrapped around left LE to facilitate left LE internal rotation for improved alignment. Patient unable to don the theraband on her own. Gait is for short distances and very slow at 39 ft in 2 min. 08/28/20: has demonstrated improved gait ability, still using theraband for derotation of LE for more neutral position. Able to consistenly use quad cane and is increasing stride length especially with cues. Now able to ascend and descend 4 stairs with min assist using railing. Mod assist on 6 stairs. 12/02/20: Patient ambulating with SPC, mostly household but some community distances, improved gait alignment with use of theraband for improved alignment. Patient not consistently able to ambulate community distances due to pain in her left LE, and lack of neurological control left LE. Patient may benefit from modification to her current AFO or fabrication of new AFO. 173 ft in 6 minutes 01/27/21: using SPC. Limitations due to left foot, knee and hip pain, right wrist pain 6 min walk test improved to 199.9 feet today 03/24/21: slower 6 min walk test today as above. Has had modification to her AFO with some improvement in her function, but had poor day today. LTG Duration 06/30/21 Assessment Summary Assessment [place] seemed tired today, decreased endurance on scifit. Manual to R adductor and calf helpful pre scifit, noted decrease reported compensating pain had upon arrival. Tx focused on pre gait and forward locomotion without AFO at rail and shyanne stepping for L knee flexion. Physical Therapy Plan Frequency and Duration Frequency of Treatment 2x/Week Duration of Treatment 12 wks Plan of Care Start Date 03/24/21 Plan of Care End Date 06/24/21 Therapeutic Interventions Therapeutic Interventions Aquatic Therapy,Balance Training,Gait Training,Home Exercise Program,Neuromuscular Re-education,Orthotic/ Prosthetic Management,Patient/ Caregiver Education,Self-Care/ Home Management,Taping, Therapeutic Activities, Therapeutic Exercises Modalities Cold Pack/Ice Massage,Hot Packs Next Visit Focus/Plan Next Note Type Treatment Note Next Visit Plan Next tx: Work on elevated step transfers to get into raised truck (dad, sister) for future travels so decrease assisted support from dad/ sister. Continue gait training, caregiver training, neuro re- ed, functional strengthening. Manual techniques to improve soft tissue mobility
--- NOTE | 2021-04-29 10:32 | PT.OTN ---
Current Diagnoses Hemiplegia, unspecified affecting unspecified side (04/29/21) Difficulty in walking, not elsewhere classified (04/29/21) Weakness (04/29/21) History of falling (04/29/21) Physical Therapy Treatment Note PT-OP-A Visit Information Start: 05/28/19 08:11 Freq: Status: Active Protocol: Document 04/29/21 08:54 SAK (Rec: 04/29/21 09:03 SAK [id number]) Out-Patient Physical Therapy Visit Information Visit Information Visit Type Treatment Note Visit Note Caregiver attended tx, patient 20 min late for appointment. Visit Start Time 08:35 Visit Stop Time 09:00 Total Visit Minutes 25 Visit Number 109 Number of REPAIR WELDER Visits 0 Precautions Precautions Seizure disorder memory dysfunction PT-OP-B Current Condition Start: 05/28/19 08:11 Freq: Status: Active Protocol: Document 06/04/20 11:15 SAK (Rec: 06/05/20 16:34 SAK [id number]) Current Condition History of Current Condition Onset Date 2014 Current Complaints weakness, requires assistance with all mobility and household tasks History of Current Condition Reports that she suffered a stroke in 2014 after surgery for brain aneurysm. CVA caused weakness on the left side of her body, gait and balance difficulty, seizures. PT-OP-C Subjective Start: 05/28/19 08:11 Freq: Status: Active Protocol: Document 04/23/21 10:33 SP (Rec: 04/23/21 11:59 SP [id number]) OP-PT Subjective Patient Comments Patient Comments Pt reported her L ITB is really tight today, thinks she is still sore and tired recovering from the long walk at [facility] with caregiver pre PT and activities completed in PT last tx. PT-OP-D Balance Start: 05/28/19 08:11 Freq: Status: Active Protocol: Document 05/29/19 14:30 SAK (Rec: 05/30/19 14:24 SAK [id number]) OP-PT Balance Assessment Sitting Balance Static Sitting Balance Ability Good Dynamic Sitting Balance Ability Fair Standing Balance Static Standing Balance Ability Good Dynamic Standing Balance Ability Fair Device Used [email or web address] right Tinetti Balance Assessment Sitting Balance Sitting Balance Steady, safe Arising from Chair Attempts to Arise Able, requires >1 attempt Standing Balance Immediate Standing Balance Steady with support Standing Balance Steady, wide stance Nudged Response Begins to fall Standing with Eyes Closed Unsteady Turning Step Pattern Turning 360 Degrees Discontinuous steps Stability Turning 360 Degrees Unsteady, grabs/staggers Sitting Down Sitting Down Uses arms or unsteady Gait and Step Initiation of Gait Hesitancy, mult. attempts Right Foot Step Length Does not pass stance ft. Right Foot Step Height Does not clear floor Left Foot Step Length Does not pass stance foot Left Foot Step Height Does not clear floor Step Description Step Symmetry Step length not equal Gait Description Path Description Mild/moderate deviation Trunk Description Marked sway or uses aide Walking Stance Heels apart Scoring and Interpretation Tinetti Composite Score (points) 6 Interpretation of Scores High risk for falls(< 19) Herrera Fall Scale Copyright Permission PT-OP-E Functional Tests Start: 05/28/19 08:11 Freq: Status: Active Protocol: Document 04/23/21 10:33 SP (Rec: 04/23/21 11:59 SP [id number]) Functional Tests 6 Minute Walk Test Distance 181ft Device Used SPC, TB wrapping LLE Comments cued decreased conversation/ looking forward focus task. PT-OP-G Mobility & Gait Start: 05/28/19 08:11 Freq: Status: Active Protocol: Document 05/26/20 11:15 SAK (Rec: 05/26/20 17:04 SAK [id number]) OP Mobility Evaluation Bed Mobility Rolling min assist to right CGA to left Supine to and from Sit min assist to right CGA to left Transfers Sit to Stand CGA to min assist without UE use Bed to Chair Transfers requires use of right UE but able to do with SBA Floor Transfers unable PT-OP-H Neuro Start: 05/28/19 08:11 Freq: Status: Active Protocol: Document 05/29/19 14:30 SAK (Rec: 05/30/19 14:24 SAK [id number]) Sensation Evaluation Gross Sensation Gross Sensation Left UE Impaired,Left LE Impaired Sensation Description Paresthesia,Numbness Coordination Evaluation Lower Extremity Tests Left Alternate Heel to Knee; Heel to Toe Test Moderate Impairment Heel on Boles Test Moderate Impairment Foot Tapping Test Moderate Impairment PT-OP-K Range of Motion Start: 05/28/19 08:11 Freq: Status: Active Protocol: Document 05/26/20 11:15 SAK (Rec: 05/26/20 17:04 SAK [id number]) Hip Goniometric Range of Motion Hip jake Hip ROM WFL Yes Comments actively right LE, passively left LE Knee Goniometric Range of Motion Knee jake Knee ROM WFL Yes Ankle and Foot Goniometric Range of Motion Ankle and Foot Left Passive Ankle/Foot ROM WFL No Left Active Ankle/Foot ROM WFL No PT-OP-M Strength Start: 05/28/19 08:11 Freq: Status: Active Protocol: Document 05/26/20 11:15 [facility] (Rec: 05/26/20 17:04 [facility] [id number]) Hip Strength Hip Manual Muscle Testing Left Flexion (L2) 3- Fair- Extension (S1) 2 Poor Abduction 2+ Poor+ External Rotation 3- Fair- Internal Rotation 3+ Fair+ Right Flexion (L2) 4 Good Extension (S1) 4- Good- Abduction 4 Good External Rotation 3+ Fair+ Internal Rotation 4- Good- PT-OP-Q Treatments Start: 05/28/19 08:11 Freq: Status: Active Protocol: Document 04/29/21 08:54 [facility] (Rec: 04/29/21 09:03 [facility] [id number]) Cardio Equipment Recumbent Stepper (Sci-Fit) Duration (Minutes) 10 Resistance 2 Seat Position 8- decreased endurance today Other 1 mile- intermittent contact cues for L hip adduction- miles 0.55 miles Therapeutic Exercises Standing Exercises sit stands w/ AFO donned Standing Exercise Name no UEs Equipment Used 18 chair Reps/Minutes 3x Comments verbal and manual cues for increased use of left LE weight-shifting Standing Exercise Name side to side, front to back Equipment Used R HR Comments mirror for visual feedback, verbal and manual cues Therapeutic Activity Therapeutic Activity pre-gait wt shifts, steps Comments mirror for visual feedback, in parallel bars but cues for min to no UE support; cues for weight shift left and step right fwd and back Gait Training Gait Activity parallel bars Description forward, backward Device Used AFO donned left with heel lift , mirror for visual feedback Level of Assistance R handrail only as needed Surface firm Distance/Duration 6' x4 laps Treatment Focus neutral alignment, weight- shift Comments Pt. improved weight shifting with increased time over LLE, and UE support decreased to min to no UE support. mirror helpful. curb simulation Description ascend/descend Device Used SPC Level of Assistance 30% A for trunk balance to midline and SPC stability Surface 6 step Distance/Duration 1x Treatment Focus increase stability curb mgt Comments cued quad facilitation L knee stance LE during RLE advancement to ascend, and decreased UE support heavy WB on RUE SPC PT-OP-R Modalities Start: 05/28/19 08:11 Freq: Status: Active Protocol: Document 12/29/20 10:30 SP (Rec: 12/29/20 11:44 SP [id number]) Electric Stimulation Electric Stimulation Functional Electric Stimulation Body Location L hand/ forearm extensors Duration (Minutes) 2 Patient Position Sitting Comments NMES- education on placement of pad for muscular feedback extension based- check self placement understanding. PT-OP-T Assessment and Plan Start: 05/28/19 08:11 Freq: Status: Active Protocol: Document 04/29/21 08:54 SAK (Rec: 04/29/21 09:03 SAK [id number]) Physical Therapy Assessment Goals Five Impairment gait speed not adequate for safe community ambulation Fdc Goal (LTG) Patient able to ambulate 300' in 6 min. TUG score no greater than 30 sec 06/02/20: 134' 08/28/20: 144', likely not as high due to new shoes and wearing old AFO because fits better in new shoes. Requires level 4 theraband for derotation of left LE into more neutral position for gait . 09/19/20: 146 ft 6 min w/ QC and Tb wrapping to LLE. 11/13/20: 153 ft CG w/ SPC 2>3 pt gait w/out metronome w/ reported L glut/ lateral leg burn pain, 2 step brief stand breaks. 11/24/20: progressing 173.7 ft using SPC, predominently 2 pt gait. TUG score 59 sec using SP 01/27/21: TUG 55 sec. , 6 min walk test 199.9 ft with SPC 03/19/21: 6 min walk test 165' , TUG 1:20. Continue with use of theraband for derotation of excess ER left LE with gait . 04/16/21: 6MWT 190 ft w/ SPC and TB wrapping assist hip IR. 04/23/21: 6MWT 181 ftw/ SPC and TB wrapping LTG Duration 06/30/21 Four Impairment requires assistance with bed mobility and transfers Short Term Goal (STG) Patient will be able to perform all bed mobility independently to improve her functional independence. 10/31/19: good goal progress 06/02/20:inconsistent, but min assist most times 11/24/20: Met goal: pt is independent in supine>sit. STG Duration goal met ( independent 11/24/20 ) Law Examiner Goal (LTG) Patient will be able to perform a floor transfer with SB to min assist. 5x sit to stand score in no more than 15 sec as measure of functional strength for transfers 10/31/19: max assist today 01/02/20: has not been willing to try since 10/31/19 06/02/20: does not feel strong enough to try yet. 08/28/20: max assistance required 12/02/20: remains at max assist , not recently willing to attempt floor transfer. 5x sit to stand score 26 seconds 01/27/21: not tried recently. 03/24/21: 5x sit to stand 25 sec. No floor transfer today LTG Duration 06/30/21 Three Impairment weakness left UE and LE s/p CVA Fdc Goal (LTG) Improve functional strength in left LE, as evidenced by ability to move from sit > < stand without use of UE's. 10/31/19: OT starts tomorrow. Good progress with sit to stand, though mostly using right UE and LE 01/02/20: Improving ability to perform, able to increase weight-bearing through left LE with cues, but still some use of right UE 05/26/20: With manual and visual feedback patient able to transfer sit to stand with only CG A. 08/28/20: inconsistent ability to move sit to stand without using UE's, but able to do transfer without physical assistance 11/24/20: Goal Met 01/27/21: more difficulty recently, having to use hands. Goal reactivated. 03/24/21: difficulty motor planning and performing sit to stand today. LTG Duration 06/30/21 Two Impairment balance dysfunction with high risk for falls Fdc Goal (LTG) Improve balance as evidenced by improvement in Tinnetti balance and gait score to low fall risk range to improve safety in the home and community. 10/31/19: remains high risk for falls 01/02/20: some improvement but still in high risk category 05/26/20: Tinetti score in high risk category 08/28/20: moderate risk for falls 12/02/20: remains in moderate risk for falls. 01/27/21: moderate risk for falls 03/24/21: no significant change noted today but again having poor day. LTG Duration 06/30/21 One Impairment requires armaan-walker for gait, limited to household gait Fdc Goal (LTG) Patient able to ambulate with least restrictive device for functional community distances to improve her functional independence and quality of life. 10/30/19: no progress due to Covid 19. 11/02/19: able to ambulate with quad cane but with very slow speed, household distances, very short community distances . 05/26/20: Now able to ambulate with use of single point cane and use of L4 theraband wrapped around left LE to facilitate left LE internal rotation for improved alignment. Patient unable to don the theraband on her own. Gait is for short distances and very slow at 39 ft in 2 min. 08/28/20: has demonstrated improved gait ability, still using theraband for derotation of LE for more neutral position. Able to consistenly use quad cane and is increasing stride length especially with cues. Now able to ascend and descend 4 stairs with min assist using railing. Mod assist on 6 stairs. 12/02/20: Patient ambulating with SPC, mostly household but some community distances, improved gait alignment with use of theraband for improved alignment. Patient not consistently able to ambulate community distances due to pain in her left LE, and lack of neurological control left LE. Patient may benefit from modification to her current AFO or fabrication of new AFO. 173 ft in 6 minutes 01/27/21: using SPC. Limitations due to left foot, knee and hip pain, right wrist pain 6 min walk test improved to 199.9 feet today 03/24/21: slower 6 min walk test today as above. Has had modification to her AFO with some improvement in her function, but had poor day today. LTG Duration 06/30/21 Assessment Summary Assessment Treatment limited due to patient 20 min late. Caregiver present, attentive, and asking questions. Patient benefits highly from use of mirror for visual feedback, becomes frustrated by functional limitations and challenge of therapy tasks. Discussed truck with father and decided to try different vehicle. Physical Therapy Plan Frequency and Duration Frequency of Treatment 2x/Week Duration of Treatment 12 wks Plan of Care Start Date 03/24/21 Plan of Care End Date 06/24/21 Therapeutic Interventions Therapeutic Interventions Aquatic Therapy,Balance Training,Gait Training,Home Exercise Program,Neuromuscular Re-education,Orthotic/ Prosthetic Management,Patient/ Caregiver Education,Self-Care/ Home Management,Taping, Therapeutic Activities, Therapeutic Exercises Modalities Cold Pack/Ice Massage,Hot Packs Next Visit Focus/Plan Next Note Type Treatment Note Next Visit Plan Continue gait training, caregiver training, neuro re- ed, functional strengthening. Manual techniques to improve soft tissue mobility
--- NOTE | 2021-05-07 11:46 | PT-OP ANOTE ---
Pt was scheduled 1115 today and did not show. PT called her and she stated she tried to call to cancel due to snow conditions but was unable to get through on the phone. Reminded pt of her next scheduled appointment on 05/12/21 at 0900.
--- NOTE | 2021-05-12 09:45 | PT.OTN ---
Current Diagnoses Hemiplegia, unspecified affecting unspecified side (05/12/21) Difficulty in walking, not elsewhere classified (05/12/21) Weakness (05/12/21) History of falling (05/12/21) Physical Therapy Treatment Note PT-OP-A Visit Information Start: 05/28/19 08:11 Freq: Status: Active Protocol: Document 05/12/21 09:07 SP (Rec: 05/12/21 09:49 SP [id number]) Out-Patient Physical Therapy Visit Information Visit Information Visit Type Treatment Note Visit Note Caregiver attended tx provided assist and cues as needed for L knee adduction during scifit, caregiver training for carryover at fitness center if attends outside of PT. Visit Start Time 09:07 Visit Stop Time 09:45 Total Visit Minutes 38 Visit Number 110 Number of STARTER CUP POWDER MIXER Visits 1 Precautions Precautions Seizure disorder memory dysfunction PT-OP-B Current Condition Start: 05/28/19 08:11 Freq: Status: Active Protocol: Document 06/04/20 11:15 SAK (Rec: 06/05/20 16:34 SAK [id number]) Current Condition History of Current Condition Onset Date 2014 Current Complaints weakness, requires assistance with all mobility and household tasks History of Current Condition Reports that she suffered a stroke in 2014 after surgery for brain aneurysm. CVA caused weakness on the left side of her body, gait and balance difficulty, seizures. PT-OP-C Subjective Start: 05/28/19 08:11 Freq: Status: Active Protocol: Document 05/12/21 09:07 SP (Rec: 05/12/21 09:49 SP [id number]) OP-PT Subjective Patient Comments Patient Comments Pt reports L whole leg hurting more lately. Hasn't been walking due to incliment weather with caregiver outside but trying to do what can indoors. PT-OP-D Balance Start: 05/28/19 08:11 Freq: Status: Active Protocol: Document 05/29/19 14:30 SAK (Rec: 05/30/19 14:24 SAK [id number]) OP-PT Balance Assessment Sitting Balance Static Sitting Balance Ability Good Dynamic Sitting Balance Ability Fair Standing Balance Static Standing Balance Ability Good Dynamic Standing Balance Ability Fair Device Used hemiwalker right Tinetti Balance Assessment Sitting Balance Sitting Balance Steady, safe Arising from Chair Attempts to Arise Able, requires >1 attempt Standing Balance Immediate Standing Balance Steady with support Standing Balance Steady, wide stance Nudged Response Begins to fall Standing with Eyes Closed Unsteady Turning Step Pattern Turning 360 Degrees Discontinuous steps Stability Turning 360 Degrees Unsteady, grabs/staggers Sitting Down Sitting Down Uses arms or unsteady Gait and Step Initiation of Gait Hesitancy, mult. attempts Right Foot Step Length Does not pass stance ft. Right Foot Step Height Does not clear floor Left Foot Step Length Does not pass stance foot Left Foot Step Height Does not clear floor Step Description Step Symmetry Step length not equal Gait Description Path Description Mild/moderate deviation Trunk Description Marked sway or uses aide Walking Stance Heels apart Scoring and Interpretation Tinetti Composite Score (points) 6 Interpretation of Scores High risk for falls(< 19) Herrera Fall Scale Copyright Permission PT-OP-E Functional Tests Start: 05/28/19 08:11 Freq: Status: Active Protocol: Document 04/23/21 10:33 SP (Rec: 04/23/21 11:59 SP [id number]) Functional Tests 6 Minute Walk Test Distance 181ft Device Used SPC, TB wrapping LLE Comments cued decreased conversation/ looking forward focus task. PT-OP-G Mobility & Gait Start: 05/28/19 08:11 Freq: Status: Active Protocol: Document 05/26/20 11:15 SAK (Rec: 05/26/20 17:04 SAK [id number]) OP Mobility Evaluation Bed Mobility Rolling min assist to right CGA to left Supine to and from Sit min assist to right CGA to left Transfers Sit to Stand CGA to min assist without UE use Bed to Chair Transfers requires use of right UE but able to do with SBA Floor Transfers unable PT-OP-H Neuro Start: 05/28/19 08:11 Freq: Status: Active Protocol: Document 05/29/19 14:30 SAK (Rec: 05/30/19 14:24 SAK [id number]) Sensation Evaluation Gross Sensation Gross Sensation Left UE Impaired,Left LE Impaired Sensation Description Paresthesia,Numbness Coordination Evaluation Lower Extremity Tests Left Alternate Heel to Knee; Heel to Toe Test Moderate Impairment Heel on Boles Test Moderate Impairment Foot Tapping Test Moderate Impairment PT-OP-K Range of Motion Start: 05/28/19 08:11 Freq: Status: Active Protocol: Document 05/26/20 11:15 SAK (Rec: 05/26/20 17:04 SAK [id number]) Hip Goniometric Range of Motion Hip jake Hip ROM WFL Yes Comments actively right LE, passively left LE Knee Goniometric Range of Motion Knee jake Knee ROM WFL Yes Ankle and Foot Goniometric Range of Motion Ankle and Foot Left Passive Ankle/Foot ROM WFL No Left Active Ankle/Foot ROM WFL No PT-OP-M Strength Start: 05/28/19 08:11 Freq: Status: Active Protocol: Document 05/26/20 11:15 SAK (Rec: 05/26/20 17:04 SAK [id number]) Hip Strength Hip Manual Muscle Testing Left Flexion (L2) 3- Fair- Extension (S1) 2 Poor Abduction 2+ Poor+ External Rotation 3- Fair- Internal Rotation 3+ Fair+ Right Flexion (L2) 4 Good Extension (S1) 4- Good- Abduction 4 Good External Rotation 3+ Fair+ Internal Rotation 4- Good- PT-OP-Q Treatments Start: 05/28/19 08:11 Freq: Status: Active Protocol: Document 05/12/21 09:07 SP (Rec: 05/12/21 09:49 SP [id number]) Cardio Equipment Recumbent Stepper (Sci-Fit) Duration (Minutes) 10 Resistance 2 Seat Position 9- decreased endurance today Other 1 mile- intermittent contact cues for L hip adduction- miles 0.55 miles Therapeutic Exercises Standing Exercises weight-shifting Standing Exercise Name side to side, front to back Resistance no AFO Equipment Used R HR Comments mirror for visual feedback, verbal and manual cues Gait Training Gait Activity forward gait at rail Description Forward/ backward gait with AFO Device Used Therapist arm for contact, GB, TB wrapping LLE Level of Assistance CGA Surface firm, mirror front for trunk alignment Distance/Duration 20 ft x2 laps Treatment Focus WB into LLE, dynamic balance Comments Provided CGA- SBA through gait belt from front on L side. Intermittent cues for LLE positioning more front and equal stride. Pt increased L trunk wt shift with cues forward, Contact rail backstepping. gait w/ AD no wrapping Description w/ TB wrapping w/ metronome 70 > 65bpm Device Used SPC Level of Assistance SBA- CGA Surface stable Distance/Duration 50' x 2 Treatment Focus L knee flexion, hip IR, wt shift to left, step-through RLE gait Comments cued small step LLE, bigger step RLE: 2 pt gait and LLE awareness of adduction to decrease L hip ER. Decreased edurance today. Self-Care/Home Management Treatment Education Patient Education Home Exercise Program,Joint Protection Caregiver Education Caregiver training with support and cuing while pt riding scifit for carryover in case they to go to local gym for how to support pt. Cued pt requires LLE assist as needed onto L foot plate and cue vs Min A (0-10%) for LLE hip adduction during BLE peddling for proper LE alignment, pt gets distracted at times and forget to actively perform L hip adduction. PT-OP-R Modalities Start: 05/28/19 08:11 Freq: Status: Active Protocol: Document 12/29/20 10:30 SP (Rec: 12/29/20 11:44 SP [id number]) Electric Stimulation Electric Stimulation Functional Electric Stimulation Body Location L hand/ forearm extensors Duration (Minutes) 2 Patient Position Sitting Comments NMES- education on placement of pad for muscular feedback extension based- check self placement understanding. PT-OP-T Assessment and Plan Start: 05/28/19 08:11 Freq: Status: Active Protocol: Document 05/12/21 09:07 SP (Rec: 05/12/21 09:49 SP [id number]) Physical Therapy Assessment Goals Five Impairment gait speed not adequate for safe community ambulation Group Home Goal (LTG) Patient able to ambulate 300' in 6 min. TUG score no greater than 30 sec 06/02/20: 134' 08/28/20: 144', likely not as high due to new shoes and wearing old AFO because fits better in new shoes. Requires level 4 theraband for derotation of left LE into more neutral position for gait . 09/19/20: 146 ft 6 min w/ QC and Tb wrapping to LLE. 11/13/20: 153 ft CG w/ SPC 2>3 pt gait w/out metronome w/ reported L glut/ lateral leg burn pain, 2 step brief stand breaks. 11/24/20: progressing 173.7 ft using SPC, predominently 2 pt gait. TUG score 59 sec using SP 01/27/21: TUG 55 sec. , 6 min walk test 199.9 ft with SPC 03/19/21: 6 min walk test 165' , TUG 1:20. Continue with use of theraband for derotation of excess ER left LE with gait . 04/16/21: 6MWT 190 ft w/ SPC and TB wrapping assist hip IR. 04/23/21: 6MWT 181 ftw/ SPC and TB wrapping LTG Duration 06/30/21 Four Impairment requires assistance with bed mobility and transfers Short Term Goal (STG) Patient will be able to perform all bed mobility independently to improve her functional independence. 10/31/19: good goal progress 06/02/20:inconsistent, but min assist most times 11/24/20: Met goal: pt is independent in supine>sit. STG Duration goal met ( independent 11/24/20 ) Counterperson Goal (LTG) Patient will be able to perform a floor transfer with SB to min assist. 5x sit to stand score in no more than 15 sec as measure of functional strength for transfers 10/31/19: max assist today 01/02/20: has not been willing to try since 10/31/19 06/02/20: does not feel strong enough to try yet. 08/28/20: max assistance required 12/02/20: remains at max assist , not recently willing to attempt floor transfer. 5x sit to stand score 26 seconds 01/27/21: not tried recently. 03/24/21: 5x sit to stand 25 sec. No floor transfer today LTG Duration 06/30/21 Three Impairment weakness left UE and LE s/p CVA Counterperson Goal (LTG) Improve functional strength in left LE, as evidenced by ability to move from sit > < stand without use of UE's. 10/31/19: OT starts tomorrow. Good progress with sit to stand, though mostly using right UE and LE 01/02/20: Improving ability to perform, able to increase weight-bearing through left LE with cues, but still some use of right UE 05/26/20: With manual and visual feedback patient able to transfer sit to stand with only CG A. 08/28/20: inconsistent ability to move sit to stand without using UE's, but able to do transfer without physical assistance 11/24/20: Goal Met 01/27/21: more difficulty recently, having to use hands. Goal reactivated. 03/24/21: difficulty motor planning and performing sit to stand today. LTG Duration 06/30/21 Two Impairment balance dysfunction with high risk for falls Group Home Goal (LTG) Improve balance as evidenced by improvement in Tinnetti balance and gait score to low fall risk range to improve safety in the home and community. 10/31/19: remains high risk for falls 01/02/20: some improvement but still in high risk category 05/26/20: Tinetti score in high risk category 08/28/20: moderate risk for falls 12/02/20: remains in moderate risk for falls. 01/27/21: moderate risk for falls 03/24/21: no significant change noted today but again having poor day. LTG Duration 06/30/21 One Impairment requires armaan-walker for gait, limited to household gait Counterperson Goal (LTG) Patient able to ambulate with least restrictive device for functional community distances to improve her functional independence and quality of life. 10/30/19: no progress due to Covid 19. 11/02/19: able to ambulate with quad cane but with very slow speed, household distances, very short community distances . 05/26/20: Now able to ambulate with use of single point cane and use of L4 theraband wrapped around left LE to facilitate left LE internal rotation for improved alignment. Patient unable to don the theraband on her own. Gait is for short distances and very slow at 39 ft in 2 min. 08/28/20: has demonstrated improved gait ability, still using theraband for derotation of LE for more neutral position. Able to consistenly use quad cane and is increasing stride length especially with cues. Now able to ascend and descend 4 stairs with min assist using railing. Mod assist on 6 stairs. 12/02/20: Patient ambulating with SPC, mostly household but some community distances, improved gait alignment with use of theraband for improved alignment. Patient not consistently able to ambulate community distances due to pain in her left LE, and lack of neurological control left LE. Patient may benefit from modification to her current AFO or fabrication of new AFO. 173 ft in 6 minutes 01/27/21: using SPC. Limitations due to left foot, knee and hip pain, right wrist pain 6 min walk test improved to 199.9 feet today 03/24/21: slower 6 min walk test today as above. Has had modification to her AFO with some improvement in her function, but had poor day today. LTG Duration 06/30/21 Assessment Summary Assessment Pt limited due to 7 min late for appt. Caregiver present, cues for attentive for carryover activity can do at home with pt. Pt improves LLE WB wt shift then forward gait no contact on rail forward/ light contact back stepping. STARTER CUP POWDER MIXER discussed continue STS without UE support as HEP at home for strengthening, pt verbalized tries to remember to do. Pt takes time to transition between activities and didn't accomplish as many this tx. In future, end with Scifit and caregiver can assist pt Physical Therapy Plan Frequency and Duration Frequency of Treatment 2x/Week Duration of Treatment 12 wks Plan of Care Start Date 03/24/21 Plan of Care End Date 06/24/21 Therapeutic Interventions Therapeutic Interventions Aquatic Therapy,Balance Training,Gait Training,Home Exercise Program,Neuromuscular Re-education,Orthotic/ Prosthetic Management,Patient/ Caregiver Education,Self-Care/ Home Management,Taping, Therapeutic Activities, Therapeutic Exercises Modalities Cold Pack/Ice Massage,Hot Packs Next Visit Focus/Plan Next Note Type Treatment Note Next Visit Plan Review HEP next tx: Continue gait training, caregiver training, neuro re-ed, functional strengthening. Manual techniques to improve soft tissue mobility
--- NOTE | 2021-05-14 13:20 | PT.OTN ---
Current Diagnoses Hemiplegia, unspecified affecting unspecified side (05/14/21) Difficulty in walking, not elsewhere classified (05/14/21) Weakness (05/14/21) History of falling (05/14/21) Physical Therapy Treatment Note PT-OP-A Visit Information Start: 05/28/19 08:11 Freq: Status: Active Protocol: Document 05/14/21 10:15 [facility] (Rec: 05/14/21 10:40 [facility] [id number]) Out-Patient Physical Therapy Visit Information Visit Information Visit Type Treatment Note Visit Start Time 10:15 Visit Stop Time 11:00 Total Visit Minutes 45 Visit Number 111 Number of JAVA FLEX DEVELOPER Visits 0 PT-OP-B Current Condition Start: 05/28/19 08:11 Freq: Status: Active Protocol: Document 06/04/20 11:[address] [facility] (Rec: 06/05/20 16:[address] [facility] [id number]) Current Condition History of Current Condition Onset Date 2014 Current Complaints weakness, requires assistance with all mobility and household tasks History of Current Condition Reports that she suffered a stroke in 2014 after surgery for brain aneurysm. CVA caused weakness on the left side of her body, gait and balance difficulty, seizures. PT-OP-C Subjective Start: 05/28/19 08:11 Freq: Status: Active Protocol: Document 05/14/21 10:15 [facility] (Rec: 05/14/21 10:40 [facility] [id number]) OP-PT Subjective Patient Comments Patient Comments pt reports her left leg is feeling better, her aide has been putting her sleeping night brace on when she leaves and she feels this has been more comfortable for her. PT-OP-D Balance Start: 05/28/19 08:11 Freq: Status: Active Protocol: Document 05/29/19 14:30 SAK (Rec: 05/30/19 14:24 SAK [id number]) OP-PT Balance Assessment Sitting Balance Static Sitting Balance Ability Good Dynamic Sitting Balance Ability Fair Standing Balance Static Standing Balance Ability Good Dynamic Standing Balance Ability Fair Device Used hemiwalker right Tinetti Balance Assessment Sitting Balance Sitting Balance Steady, safe Arising from Chair Attempts to Arise Able, requires >1 attempt Standing Balance Immediate Standing Balance Steady with support Standing Balance Steady, wide stance Nudged Response Begins to fall Standing with Eyes Closed Unsteady Turning Step Pattern Turning 360 Degrees Discontinuous steps Stability Turning 360 Degrees Unsteady, grabs/staggers Sitting Down Sitting Down Uses arms or unsteady Gait and Step Initiation of Gait Hesitancy, mult. attempts Right Foot Step Length Does not pass stance ft. Right Foot Step Height Does not clear floor Left Foot Step Length Does not pass stance foot Left Foot Step Height Does not clear floor Step Description Step Symmetry Step length not equal Gait Description Path Description Mild/moderate deviation Trunk Description Marked sway or uses aide Walking Stance Heels apart Scoring and Interpretation Tinetti Composite Score (points) 6 Interpretation of Scores High risk for falls(< 19) Herrera Fall Scale Copyright Permission PT-OP-E Functional Tests Start: 05/28/19 08:11 Freq: Status: Active Protocol: Document 05/14/21 10:50 [facility] (Rec: 05/14/21 11:08 [facility] [id number]) Functional Tests 6 Minute Walk Test Distance 169ft Device Used spc, TB wrapping Comments pt has headache today and feels that may have slowed her down. Timed Up and Go (TUG) Score 107 seconds PT-OP-G Mobility & Gait Start: 05/28/19 08:11 Freq: Status: Active Protocol: Document 05/26/20 11:15 SAK (Rec: 05/26/20 17:[address] [facility] [id number]) OP Mobility Evaluation Bed Mobility Rolling min assist to right CGA to left Supine to and from Sit min assist to right CGA to left Transfers Sit to Stand CGA to min assist without UE use Bed to Chair Transfers requires use of right UE but able to do with SBA Floor Transfers unable PT-OP-H Neuro Start: 05/28/19 08:11 Freq: Status: Active Protocol: Document 05/29/19 14:30 SAK (Rec: 05/30/19 14:[address] [facility] [id number]) Sensation Evaluation Gross Sensation Gross Sensation Left UE Impaired,Left LE Impaired Sensation Description Paresthesia,Numbness Coordination Evaluation Lower Extremity Tests Left Alternate Heel to Knee; Heel to Toe Test Moderate Impairment Heel on Boles Test Moderate Impairment Foot Tapping Test Moderate Impairment PT-OP-K Range of Motion Start: 05/28/19 08:11 Freq: Status: Active Protocol: Document 05/26/20 11:15 SAK (Rec: 05/26/20 17:04 SAK [id number]) Hip Goniometric Range of Motion Hip jake Hip ROM WFL Yes Comments actively right LE, passively left LE Knee Goniometric Range of Motion Knee jake Knee ROM WFL Yes Ankle and Foot Goniometric Range of Motion Ankle and Foot Left Passive Ankle/Foot ROM WFL No Left Active Ankle/Foot ROM WFL No PT-OP-M Strength Start: 05/28/19 08:11 Freq: Status: Active Protocol: Document 05/26/20 11:15 SAK (Rec: 05/26/20 17:04 SAK [id number]) Hip Strength Hip Manual Muscle Testing Left Flexion (L2) 3- Fair- Extension (S1) 2 Poor Abduction 2+ Poor+ External Rotation 3- Fair- Internal Rotation 3+ Fair+ Right Flexion (L2) 4 Good Extension (S1) 4- Good- Abduction 4 Good External Rotation 3+ Fair+ Internal Rotation 4- Good- PT-OP-Q Treatments Start: 05/28/19 08:11 Freq: Status: Active Protocol: Document 05/14/21 10:15 [facility] (Rec: 05/14/21 10:40 [facility] [id number]) Cardio Equipment Recumbent Stepper (Sci-Fit) Duration (Minutes) 10 Resistance 2 Other 1.1 miles today and 11 minutes Therapeutic Exercises Standing Exercises sit to stands Reps/Minutes x 10 reps Gait Training Gait Activity timed get up and go test Comments 107 seconds to go from seated straight back chair, standing up and walking 3 meters in front of the chair and then returning back to the chair. 6 min walk test Description w/ wrapping clockwise LLE forfoot to anterior gait belt Device Used SPC Level of Assistance SBA- CGA Surface firm Distance/Duration 169ft which was decreased from 04/23/21 visit Treatment Focus equal stance time, Comments cued small step LLE, bigger step RLE: 2 pt gait and LLE awareness of adduction to decrease L hip ER. Cued for decreased even slight conversation until completed. wrapping was little shorter today increased L knee flexion little more unstable during midstance phase but didn't buckle or cause LOB. PT-OP-R Modalities Start: 05/28/19 08:11 Freq: Status: Active Protocol: Document 12/29/20 10:30 SP (Rec: 12/29/20 11:44 SP [id number]) Electric Stimulation Electric Stimulation Functional Electric Stimulation Body Location L hand/ forearm extensors Duration (Minutes) 2 Patient Position Sitting Comments NMES- education on placement of pad for muscular feedback extension based- check self placement understanding. PT-OP-T Assessment and Plan Start: 05/28/19 08:11 Freq: Status: Active Protocol: Document 05/14/21 10:15 [facility] (Rec: 05/14/21 11:08 [facility] [id number]) Physical Therapy Assessment Assessment Summary Assessment pt was 30 min late due to the snow. She notes she has a headache today and hasn't had much water but she is wanting to have her visit today. Objective tests of the 6 min walk and timed get up and go were both done today. Physical Therapy Plan Frequency and Duration Frequency of Treatment 2x/Week Duration of Treatment 12 wks Plan of Care Start Date 03/24/21 Plan of Care End Date 06/24/21 Therapeutic Interventions Therapeutic Interventions Aquatic Therapy,Balance Training,Gait Training,Home Exercise Program,Neuromuscular Re-education,Orthotic/ Prosthetic Management,Patient/ Caregiver Education,Self-Care/ Home Management,Taping, Therapeutic Activities, Therapeutic Exercises Modalities Cold Pack/Ice Massage,Hot Packs Next Visit Focus/Plan Next Note Type Treatment Note Next Visit Plan continue gait training as pt would like to be able to ambulate 250 feet to walk to her appts
--- NOTE | 2021-05-19 11:27 | PT.OTN ---
Current Diagnoses Hemiplegia, unspecified affecting unspecified side (05/19/21) Difficulty in walking, not elsewhere classified (05/19/21) Weakness (05/19/21) History of falling (05/19/21) Physical Therapy Treatment Note PT-OP-A Visit Information Start: 05/28/19 08:11 Freq: Status: Active Protocol: Document 05/19/21 10:50 SP (Rec: 05/19/21 11:42 SP [id number]) Out-Patient Physical Therapy Visit Information Visit Information Visit Type Treatment Note Visit Note Mom dropped Adelaide off, caregiver having car troubles today. Visit Start Time 10:35 Visit Stop Time 11:27 Total Visit Minutes 52 Visit Number 112 Number of [employer] SE[employer]ESS Visits 1 Precautions Precautions Seizure disorder memory dysfunction PT-OP-B Current Condition Start: 05/28/19 08:11 Freq: Status: Active Protocol: Document 06/04/20 11:15 SAK (Rec: 06/05/20 16:34 SAK [id number]) Current Condition History of Current Condition Onset Date 2014 Current Complaints weakness, requires assistance with all mobility and household tasks History of Current Condition Reports that she suffered a stroke in 2014 after surgery for brain aneurysm. CVA caused weakness on the left side of her body, gait and balance difficulty, seizures. PT-OP-C Subjective Start: 05/28/19 08:11 Freq: Status: Active Protocol: Document 05/19/21 10:50 SP (Rec: 05/19/21 11:42 SP [id number]) OP-PT Subjective Patient Comments Patient Comments Pt reports was able to walk around the store with caregiver yesterday about 40 min, has band wrap on for L leg alignment support. PT-OP-D Balance Start: 05/28/19 08:11 Freq: Status: Active Protocol: Document 05/29/19 14:30 SAK (Rec: 05/30/19 14:24 SAK [id number]) OP-PT Balance Assessment Sitting Balance Static Sitting Balance Ability Good Dynamic Sitting Balance Ability Fair Standing Balance Static Standing Balance Ability Good Dynamic Standing Balance Ability Fair Device Used hemiwalker right Tinetti Balance Assessment Sitting Balance Sitting Balance Steady, safe Arising from Chair Attempts to Arise Able, requires >1 attempt Standing Balance Immediate Standing Balance Steady with support Standing Balance Steady, wide stance Nudged Response Begins to fall Standing with Eyes Closed Unsteady Turning Step Pattern Turning 360 Degrees Discontinuous steps Stability Turning 360 Degrees Unsteady, grabs/staggers Sitting Down Sitting Down Uses arms or unsteady Gait and Step Initiation of Gait Hesitancy, mult. attempts Right Foot Step Length Does not pass stance ft. Right Foot Step Height Does not clear floor Left Foot Step Length Does not pass stance foot Left Foot Step Height Does not clear floor Step Description Step Symmetry Step length not equal Gait Description Path Description Mild/moderate deviation Trunk Description Marked sway or uses aide Walking Stance Heels apart Scoring and Interpretation Tinetti Composite Score (points) 6 Interpretation of Scores High risk for falls(< 19) Herrera Fall Scale Copyright Permission PT-OP-E Functional Tests Start: 05/28/19 08:11 Freq: Status: Active Protocol: Document 05/14/21 10:50 [facility] (Rec: 05/14/21 11:08 AMH [id number]) Functional Tests 6 Minute Walk Test Distance 169ft Device Used spc, TB wrapping Comments pt has headache today and feels that may have slowed her down. Timed Up and Go (TUG) Score 107 seconds PT-OP-G Mobility & Gait Start: 05/28/19 08:11 Freq: Status: Active Protocol: Document 05/26/20 11:15 SAK (Rec: 05/26/20 17:04 [facility] [id number]) OP Mobility Evaluation Bed Mobility Rolling min assist to right CGA to left Supine to and from Sit min assist to right CGA to left Transfers Sit to Stand CGA to min assist without UE use Bed to Chair Transfers requires use of right UE but able to do with SBA Floor Transfers unable PT-OP-H Neuro Start: 05/28/19 08:11 Freq: Status: Active Protocol: Document 05/29/19 14:30 SAK (Rec: 05/30/19 14:24 SAK [id number]) Sensation Evaluation Gross Sensation Gross Sensation Left UE Impaired,Left LE Impaired Sensation Description Paresthesia,Numbness Coordination Evaluation Lower Extremity Tests Left Alternate Heel to Knee; Heel to Toe Test Moderate Impairment Heel on Boles Test Moderate Impairment Foot Tapping Test Moderate Impairment PT-OP-K Range of Motion Start: 05/28/19 08:11 Freq: Status: Active Protocol: Document 05/26/20 11:15 SAK (Rec: 05/26/20 17:04 SAK [id number]) Hip Goniometric Range of Motion Hip jake Hip ROM WFL Yes Comments actively right LE, passively left LE Knee Goniometric Range of Motion Knee jake Knee ROM WFL Yes Ankle and Foot Goniometric Range of Motion Ankle and Foot Left Passive Ankle/Foot ROM WFL No Left Active Ankle/Foot ROM WFL No PT-OP-M Strength Start: 05/28/19 08:11 Freq: Status: Active Protocol: Document 05/26/20 11:15 SAK (Rec: 05/26/20 17:04 SAK [id number]) Hip Strength Hip Manual Muscle Testing Left Flexion (L2) 3- Fair- Extension (S1) 2 Poor Abduction 2+ Poor+ External Rotation 3- Fair- Internal Rotation 3+ Fair+ Right Flexion (L2) 4 Good Extension (S1) 4- Good- Abduction 4 Good External Rotation 3+ Fair+ Internal Rotation 4- Good- PT-OP-Q Treatments Start: 05/28/19 08:11 Freq: Status: Active Protocol: Document 05/19/21 10:50 SP (Rec: 05/19/21 11:42 SP [id number]) Gym Equipment Shuttle Recovery Unilateral Squats Details cued quad facilitation, support prevent hyperextension Resistance 25# Reps/Time 2x10, Bilateral Squats Details cued L heel press LLE into extension w/ adduction alignment with toes Resistance 50# Reps/Time 2x10 Gait Training Gait Activity parallel bars Description forward Device Used AFO doffed on L Level of Assistance R handrail Mod support today Surface firm Distance/Duration 10 ft Treatment Focus neutral alignment, weight- shift over LLE required verbal sequencing Comments Pt. improved weight shifting over LLE with cuing for sequencing, RUE support on R HR Mod- Max. Didn't have mirror today for self feedback . gait w/ AD no wrapping Description w/ TB wrapping w/ metronome 70 > 65bpm Device Used SPC Level of Assistance SBA- CGA Surface stable Distance/Duration 45 ft, 123 ft, 29 ft, 37 ft, 52 ft Treatment Focus L knee flexion, hip IR, wt shift to left, step-through RLE gait Comments cued small step LLE, bigger step RLE: 2 pt gait and LLE awareness of adduction to decrease L hip ER. Decreased edurance today, required 2 seated rests. pre-gait weight shifts Description side to side Device Used //bars PRN Level of Assistance CG, verbal cues Surface firm Distance/Duration rail on R Treatment Focus increased weight bearing left LE (cued >50-75%) Comments didn't have mirror today for visual feedback to allow preparation phase with midline alignment followed by weight shifts PT-OP-R Modalities Start: 05/28/19 08:11 Freq: Status: Active Protocol: Document 12/29/20 10:30 SP (Rec: 12/29/20 11:44 SP [id number]) Electric Stimulation Electric Stimulation Functional Electric Stimulation Body Location L hand/ forearm extensors Duration (Minutes) 2 Patient Position Sitting Comments NMES- education on placement of pad for muscular feedback extension based- check self placement understanding. PT-OP-T Assessment and Plan Start: 05/28/19 08:11 Freq: Status: Active Protocol: Document 05/19/21 10:50 SP (Rec: 05/19/21 11:42 SP [id number]) Physical Therapy Assessment Goals Five Impairment gait speed not adequate for safe community ambulation Residential Goal (LTG) Patient able to ambulate 300' in 6 min. TUG score no greater than 30 sec 06/02/20: 134' 08/28/20: 144', likely not as high due to new shoes and wearing old AFO because fits better in new shoes. Requires level 4 theraband for derotation of left LE into more neutral position for gait . 09/19/20: 146 ft 6 min w/ QC and Tb wrapping to LLE. 11/13/20: 153 ft CG w/ SPC 2>3 pt gait w/out metronome w/ reported L glut/ lateral leg burn pain, 2 step brief stand breaks. 11/24/20: progressing 173.7 ft using SPC, predominently 2 pt gait. TUG score 59 sec using SP 01/27/21: TUG 55 sec. , 6 min walk test 199.9 ft with SPC 03/19/21: 6 min walk test 165' , TUG 1:20. Continue with use of theraband for derotation of excess ER left LE with gait . 04/16/21: 6MWT 190 ft w/ SPC and TB wrapping assist hip IR. 04/23/21: 6MWT 181 ftw/ SPC and TB wrapping LTG Duration 06/30/21 Four Impairment requires assistance with bed mobility and transfers Short Term Goal (STG) Patient will be able to perform all bed mobility independently to improve her functional independence. 10/31/19: good goal progress 06/02/20:inconsistent, but min assist most times 11/24/20: Met goal: pt is independent in supine>sit. STG Duration goal met ( independent 11/24/20 ) Spray Gun Sizer Goal (LTG) Patient will be able to perform a floor transfer with SB to min assist. 5x sit to stand score in no more than 15 sec as measure of functional strength for transfers 10/31/19: max assist today 01/02/20: has not been willing to try since 10/31/19 06/02/20: does not feel strong enough to try yet. 08/28/20: max assistance required 12/02/20: remains at max assist , not recently willing to attempt floor transfer. 5x sit to stand score 26 seconds 01/27/21: not tried recently. 03/24/21: 5x sit to stand 25 sec. No floor transfer today LTG Duration 06/30/21 Three Impairment weakness left UE and LE s/p CVA Residential Goal (LTG) Improve functional strength in left LE, as evidenced by ability to move from sit > < stand without use of UE's. 10/31/19: OT starts tomorrow. Good progress with sit to stand, though mostly using right UE and LE 01/02/20: Improving ability to perform, able to increase weight-bearing through left LE with cues, but still some use of right UE 05/26/20: With manual and visual feedback patient able to transfer sit to stand with only CG A. 08/28/20: inconsistent ability to move sit to stand without using UE's, but able to do transfer without physical assistance 11/24/20: Goal Met 01/27/21: more difficulty recently, having to use hands. Goal reactivated. 03/24/21: difficulty motor planning and performing sit to stand today. LTG Duration 06/30/21 Two Impairment balance dysfunction with high risk for falls Spray Gun Sizer Goal (LTG) Improve balance as evidenced by improvement in Tinnetti balance and gait score to low fall risk range to improve safety in the home and community. 10/31/19: remains high risk for falls 01/02/20: some improvement but still in high risk category 05/26/20: Tinetti score in high risk category 08/28/20: moderate risk for falls 12/02/20: remains in moderate risk for falls. 01/27/21: moderate risk for falls 03/24/21: no significant change noted today but again having poor day. LTG Duration 06/30/21 One Impairment requires armaan-walker for gait, limited to household gait Spray Gun Sizer Goal (LTG) Patient able to ambulate with least restrictive device for functional community distances to improve her functional independence and quality of life. 10/30/19: no progress due to Covid 19. 11/02/19: able to ambulate with quad cane but with very slow speed, household distances, very short community distances . 05/26/20: Now able to ambulate with use of single point cane and use of L4 theraband wrapped around left LE to facilitate left LE internal rotation for improved alignment. Patient unable to don the theraband on her own. Gait is for short distances and very slow at 39 ft in 2 min. 08/28/20: has demonstrated improved gait ability, still using theraband for derotation of LE for more neutral position. Able to consistenly use quad cane and is increasing stride length especially with cues. Now able to ascend and descend 4 stairs with min assist using railing. Mod assist on 6 stairs. 12/02/20: Patient ambulating with SPC, mostly household but some community distances, improved gait alignment with use of theraband for improved alignment. Patient not consistently able to ambulate community distances due to pain in her left LE, and lack of neurological control left LE. Patient may benefit from modification to her current AFO or fabrication of new AFO. 173 ft in 6 minutes 01/27/21: using SPC. Limitations due to left foot, knee and hip pain, right wrist pain 6 min walk test improved to 199.9 feet today 03/24/21: slower 6 min walk test today as above. Has had modification to her AFO with some improvement in her function, but had poor day today. LTG Duration 06/30/21 Assessment Summary Assessment Pt not as motivated today, required encouragement for activities. Pt had L knee pain during WB today, stated maybe still tired from 40 min walk yesterday at the store with caregiver. Pt required increased RUE WB on rail and cues for body awareness and sequencing LE during gait without AFO donned. Pt required more rest breaks and time to transition between and during activities. Physical Therapy Plan Frequency and Duration Frequency of Treatment 2x/Week Duration of Treatment 12 wks Plan of Care Start Date 03/24/21 Plan of Care End Date 06/24/21 Therapeutic Interventions Therapeutic Interventions Aquatic Therapy,Balance Training,Gait Training,Home Exercise Program,Neuromuscular Re-education,Orthotic/ Prosthetic Management,Patient/ Caregiver Education,Self-Care/ Home Management,Taping, Therapeutic Activities, Therapeutic Exercises Modalities Cold Pack/Ice Massage,Hot Packs Next Visit Focus/Plan Next Note Type Treatment Note Next Visit Plan continue gait training as pt would like to be able to ambulate 250 feet to walk to her appts
--- NOTE | 2021-05-22 10:30 | PT.OTN ---
Current Diagnoses Hemiplegia, unspecified affecting unspecified side (05/22/21) Difficulty in walking, not elsewhere classified (05/22/21) Weakness (05/22/21) History of falling (05/22/21) Physical Therapy Treatment Note PT-OP-A Visit Information Start: 05/28/19 08:11 Freq: Status: Active Protocol: Document 05/22/21 09:50 SP (Rec: 05/22/21 10:33 SP [id number]) Out-Patient Physical Therapy Visit Information Visit Information Visit Type Treatment Note Visit Note Pt 5 min late for appt w/ caregiver Q. Visit Start Time 09:50 Visit Stop Time 10:30 Total Visit Minutes 40 Visit Number 113 Number of REAL ESTATE DEVELOPER Visits 2 Precautions Precautions Seizure disorder memory dysfunction PT-OP-B Current Condition Start: 05/28/19 08:11 Freq: Status: Active Protocol: Document 06/04/20 11:15 SAK (Rec: 06/05/20 16:34 SAK [id number]) Current Condition History of Current Condition Onset Date 2014 Current Complaints weakness, requires assistance with all mobility and household tasks History of Current Condition Reports that she suffered a stroke in 2014 after surgery for brain aneurysm. CVA caused weakness on the left side of her body, gait and balance difficulty, seizures. PT-OP-C Subjective Start: 05/28/19 08:11 Freq: Status: Active Protocol: Document 05/22/21 09:50 SP (Rec: 05/22/21 10:33 SP [id number]) OP-PT Subjective Patient Comments Patient Comments Pt reported not motivated today having R axilla area pain with nodule rubbing irritation w/ L shld strap, is being followed by physican and waiting on Dermatology referral. PT-OP-D Balance Start: 05/28/19 08:11 Freq: Status: Active Protocol: Document 05/29/19 14:30 SAK (Rec: 05/30/19 14:24 SAK [id number]) OP-PT Balance Assessment Sitting Balance Static Sitting Balance Ability Good Dynamic Sitting Balance Ability Fair Standing Balance Static Standing Balance Ability Good Dynamic Standing Balance Ability Fair Device Used [facility] right Tinetti Balance Assessment Sitting Balance Sitting Balance Steady, safe Arising from Chair Attempts to Arise Able, requires >1 attempt Standing Balance Immediate Standing Balance Steady with support Standing Balance Steady, wide stance Nudged Response Begins to fall Standing with Eyes Closed Unsteady Turning Step Pattern Turning 360 Degrees Discontinuous steps Stability Turning 360 Degrees Unsteady, grabs/staggers Sitting Down Sitting Down Uses arms or unsteady Gait and Step Initiation of Gait Hesitancy, mult. attempts Right Foot Step Length Does not pass stance ft. Right Foot Step Height Does not clear floor Left Foot Step Length Does not pass stance foot Left Foot Step Height Does not clear floor Step Description Step Symmetry Step length not equal Gait Description Path Description Mild/moderate deviation Trunk Description Marked sway or uses aide Walking Stance Heels apart Scoring and Interpretation Tinetti Composite Score (points) 6 Interpretation of Scores High risk for falls(< 19) Herrera Fall Scale Copyright Permission PT-OP-E Functional Tests Start: 05/28/19 08:11 Freq: Status: Active Protocol: Document 05/14/21 10:50 AMH (Rec: 05/14/21 11:08 AMH [id number]) Functional Tests 6 Minute Walk Test Distance 169ft Device Used spc, TB wrapping Comments pt has headache today and feels that may have slowed her down. Timed Up and Go (TUG) Score 107 seconds PT-OP-G Mobility & Gait Start: 05/28/19 08:11 Freq: Status: Active Protocol: Document 05/26/20 11:15 SAK (Rec: 05/26/20 17:04 SAK [id number]) OP Mobility Evaluation Bed Mobility Rolling min assist to right CGA to left Supine to and from Sit min assist to right CGA to left Transfers Sit to Stand CGA to min assist without UE use Bed to Chair Transfers requires use of right UE but able to do with SBA Floor Transfers unable PT-OP-H Neuro Start: 05/28/19 08:11 Freq: Status: Active Protocol: Document 05/29/19 14:30 SAK (Rec: 05/30/19 14:24 SAK [id number]) Sensation Evaluation Gross Sensation Gross Sensation Left UE Impaired,Left LE Impaired Sensation Description Paresthesia,Numbness Coordination Evaluation Lower Extremity Tests Left Alternate Heel to Knee; Heel to Toe Test Moderate Impairment Heel on Boles Test Moderate Impairment Foot Tapping Test Moderate Impairment PT-OP-K Range of Motion Start: 05/28/19 08:11 Freq: Status: Active Protocol: Document 05/26/20 11:15 SAK (Rec: 05/26/20 17:04 SAK [id number]) Hip Goniometric Range of Motion Hip jake Hip ROM WFL Yes Comments actively right LE, passively left LE Knee Goniometric Range of Motion Knee jake Knee ROM WFL Yes Ankle and Foot Goniometric Range of Motion Ankle and Foot Left Passive Ankle/Foot ROM WFL No Left Active Ankle/Foot ROM WFL No PT-OP-M Strength Start: 05/28/19 08:11 Freq: Status: Active Protocol: Document 05/26/20 11:15 SAK (Rec: 05/26/20 17:04 SAK [id number]) Hip Strength Hip Manual Muscle Testing Left Flexion (L2) 3- Fair- Extension (S1) 2 Poor Abduction 2+ Poor+ External Rotation 3- Fair- Internal Rotation 3+ Fair+ Right Flexion (L2) 4 Good Extension (S1) 4- Good- Abduction 4 Good External Rotation 3+ Fair+ Internal Rotation 4- Good- PT-OP-Q Treatments Start: 05/28/19 08:11 Freq: Status: Active Protocol: Document 05/22/21 09:50 SP (Rec: 05/22/21 10:33 SP [id number]) Gait Training Gait Activity parallel bars Description forward Device Used //bar, none carrying SPC Level of Assistance R handrail Mod (no AFO) support, CGA-5%A (AFO donned) Surface firm, (mirror unavailable) Distance/Duration 10 ft (no AFO or shoes) Min A, 10 ft AFO (donned) R//bar and 20 ft CGA wth Treatment Focus neutral alignment, weight- shift over LLE required verbal sequencing Comments Pt. improved weight shifting over LLE with cuing for sequencing, RUE support on R HR Mod- Max. Didn't have mirror today for self feedback . gait w/ AD no wrapping Description w/ TB wrapping w/ metronome 70 > 65bpm Device Used SPC Level of Assistance SBA Surface stable Distance/Duration 93 ft, Treatment Focus L knee flexion, hip IR, wt shift to left, step-through RLE gait Comments cued small step LLE, bigger step RLE: 2 pt gait and LLE awareness of adduction to decrease L hip ER. Decreased edurance today, required 2 seated rests. pre-gait weight shifts Description side to side (AFO doffed) Device Used //bars PRN Level of Assistance CG, verbal cues Surface firm Distance/Duration rail on R Treatment Focus increased weight bearing left LE (cued >50-75%) Comments didn't have mirror today for visual feedback to allow preparation phase with midline alignment followed by weight shifts stair mgt Device Used right handrail ascend, descend Level of Assistance min assist Surface CG- Min A w/ GB and wrapping- 4 steps x4 Treatment Focus increased weight shift left, decreased use right UE Comments Cues to maintain soft L knee with toes facing forward. Cues for weight shifting with contralateral LE advancement. Pt has increased difficulty/ anxiety descending, WB on LLE. Focus on step to gait for now with caregiver comfort. Neuro Re-Education Treatment Balance Activities foam stand Details feet side by side wt shift into LLE Surface blue foam, //bars Reps/Duration static stand approx CGA no UE support required Comments no AFO min A, noted L knee hyperextended, difficulty maintaining soft knee with cues. Self-Care/Home Management Treatment Education Patient Education Body Mechanics,Posture,Safety Caregiver Education REAL ESTATE DEVELOPER discussed with caregiver Q and Pt if needed caregiver training with any ADLs does with pt that want more training during tx for success and confidence, PT tx is a good time to incorporate. Other Education Educated pt safety mobility without L AFO during night is risk for falls, uncertain if just SPT or small distance, pt wasn't clear. PT-OP-R Modalities Start: 05/28/19 08:11 Freq: Status: Active Protocol: Document 12/29/20 10:30 SP (Rec: 12/29/20 11:44 SP [id number]) Electric Stimulation Electric Stimulation Functional Electric Stimulation Body Location L hand/ forearm extensors Duration (Minutes) 2 Patient Position Sitting Comments NMES- education on placement of pad for muscular feedback extension based- check self placement understanding. PT-OP-T Assessment and Plan Start: 05/28/19 08:11 Freq: Status: Active Protocol: Document 05/22/21 09:50 SP (Rec: 05/22/21 10:33 SP [id number]) Physical Therapy Assessment Goals Five Impairment gait speed not adequate for safe community ambulation Chute Worker Goal (LTG) Patient able to ambulate 300' in 6 min. TUG score no greater than 30 sec 06/02/20: 134' 08/28/20: 144', likely not as high due to new shoes and wearing old AFO because fits better in new shoes. Requires level 4 theraband for derotation of left LE into more neutral position for gait . 09/19/20: 146 ft 6 min w/ QC and Tb wrapping to LLE. 11/13/20: 153 ft CG w/ SPC 2>3 pt gait w/out metronome w/ reported L glut/ lateral leg burn pain, 2 step brief stand breaks. 11/24/20: progressing 173.7 ft using SPC, predominently 2 pt gait. TUG score 59 sec using SP 01/27/21: TUG 55 sec. , 6 min walk test 199.9 ft with SPC 03/19/21: 6 min walk test 165' , TUG 1:20. Continue with use of theraband for derotation of excess ER left LE with gait . 04/16/21: 6MWT 190 ft w/ SPC and TB wrapping assist hip IR. 04/23/21: 6MWT 181 ftw/ SPC and TB wrapping LTG Duration 06/30/21 Four Impairment requires assistance with bed mobility and transfers Short Term Goal (STG) Patient will be able to perform all bed mobility independently to improve her functional independence. 10/31/19: good goal progress 06/02/20:inconsistent, but min assist most times 11/24/20: Met goal: pt is independent in supine>sit. STG Duration goal met ( independent 11/24/20 ) Chute Worker Goal (LTG) Patient will be able to perform a floor transfer with SB to min assist. 5x sit to stand score in no more than 15 sec as measure of functional strength for transfers 10/31/19: max assist today 01/02/20: has not been willing to try since 10/31/19 06/02/20: does not feel strong enough to try yet. 08/28/20: max assistance required 12/02/20: remains at max assist , not recently willing to attempt floor transfer. 5x sit to stand score 26 seconds 01/27/21: not tried recently. 03/24/21: 5x sit to stand 25 sec. No floor transfer today LTG Duration 06/30/21 Three Impairment weakness left UE and LE s/p CVA Chute Worker Goal (LTG) Improve functional strength in left LE, as evidenced by ability to move from sit > < stand without use of UE's. 10/31/19: OT starts tomorrow. Good progress with sit to stand, though mostly using right UE and LE 01/02/20: Improving ability to perform, able to increase weight-bearing through left LE with cues, but still some use of right UE 05/26/20: With manual and visual feedback patient able to transfer sit to stand with only CG A. 08/28/20: inconsistent ability to move sit to stand without using UE's, but able to do transfer without physical assistance 11/24/20: Goal Met 01/27/21: more difficulty recently, having to use hands. Goal reactivated. 03/24/21: difficulty motor planning and performing sit to stand today. LTG Duration 06/30/21 Two Impairment balance dysfunction with high risk for falls Chute Worker Goal (LTG) Improve balance as evidenced by improvement in Tinnetti balance and gait score to low fall risk range to improve safety in the home and community. 10/31/19: remains high risk for falls 01/02/20: some improvement but still in high risk category 05/26/20: Tinetti score in high risk category 08/28/20: moderate risk for falls 12/02/20: remains in moderate risk for falls. 01/27/21: moderate risk for falls 03/24/21: no significant change noted today but again having poor day. LTG Duration 06/30/21 One Impairment requires armaan-walker for gait, limited to household gait Chute Worker Goal (LTG) Patient able to ambulate with least restrictive device for functional community distances to improve her functional independence and quality of life. 10/30/19: no progress due to Covid 19. 11/02/19: able to ambulate with quad cane but with very slow speed, household distances, very short community distances . 05/26/20: Now able to ambulate with use of single point cane and use of L4 theraband wrapped around left LE to facilitate left LE internal rotation for improved alignment. Patient unable to don the theraband on her own. Gait is for short distances and very slow at 39 ft in 2 min. 08/28/20: has demonstrated improved gait ability, still using theraband for derotation of LE for more neutral position. Able to consistenly use quad cane and is increasing stride length especially with cues. Now able to ascend and descend 4 stairs with min assist using railing. Mod assist on 6 stairs. 12/02/20: Patient ambulating with SPC, mostly household but some community distances, improved gait alignment with use of theraband for improved alignment. Patient not consistently able to ambulate community distances due to pain in her left LE, and lack of neurological control left LE. Patient may benefit from modification to her current AFO or fabrication of new AFO. 173 ft in 6 minutes 01/27/21: using SPC. Limitations due to left foot, knee and hip pain, right wrist pain 6 min walk test improved to 199.9 feet today 03/24/21: slower 6 min walk test today as above. Has had modification to her AFO with some improvement in her function, but had poor day today. LTG Duration 06/30/21 Assessment Summary Assessment Pt required encouragement for MAP bldg stairs this tx suggested for functional strengthening as done in past. Min- Mod A for trunk support to ascend support leading with LLE, contact- Min support anterior stability, CG- 5%A descend step to lead LLE patterning w/ R HR. Caregiver and pt stated didn't feel comfortable caregiver assisting with mobility on stairs it's my therapy time working with therapist not working with my caregiver. Takes time pt transition between activities, increased rest breaks. Adjust activities for R under arm pain irritation. Assessed wt shift and few step forward gait in // bar without AFO or shoes using R HR Mod A wt shift, difficult advancement/ foot clearance with tone in L foot/ ankle and hyperextension states mobilizes at night without brace for safety assessment. Future tx don sneakers for allowance ankle mobility pt wants to improve without AFO. Physical Therapy Plan Frequency and Duration Frequency of Treatment 2x/Week Duration of Treatment 12 wks Plan of Care Start Date 03/24/21 Plan of Care End Date 06/24/21 Therapeutic Interventions Therapeutic Interventions Aquatic Therapy,Balance Training,Gait Training,Home Exercise Program,Neuromuscular Re-education,Orthotic/ Prosthetic Management,Patient/ Caregiver Education,Self-Care/ Home Management,Taping, Therapeutic Activities, Therapeutic Exercises Modalities Cold Pack/Ice Massage,Hot Packs Next Visit Focus/Plan Next Note Type Treatment Note Next Visit Plan Assess response to last tx: stairs, pre wt shifts, stationary stand without AFO without shoes for safety mobility at night. POC: continue gait training as pt would like to be able to ambulate 250 feet to walk to her appts
--- NOTE | 2021-05-26 14:45 | PT.OTN ---
Current Diagnoses Hemiplegia, unspecified affecting unspecified side (05/26/21) Difficulty in walking, not elsewhere classified (05/26/21) Weakness (05/26/21) History of falling (05/26/21) Physical Therapy Treatment Note PT-OP-A Visit Information Start: 05/28/19 08:11 Freq: Status: Active Protocol: Document 05/26/21 10:30 SAK (Rec: 05/26/21 11:21 [facility] [id number]) Out-Patient Physical Therapy Visit Information Visit Information Visit Type Treatment Note Visit Note Patient dropped off at PT by her mother. Visit Start Time 09:50 Visit Stop Time 10:30 Total Visit Minutes 40 Visit Number 114 Number of ASSEMBLER BILLIARD TABLE Visits 0 Precautions Precautions Seizure disorder memory dysfunction PT-OP-B Current Condition Start: 05/28/19 08:11 Freq: Status: Active Protocol: Document 06/04/20 11:15 SAK (Rec: 06/05/20 16:34 [facility] [id number]) Current Condition History of Current Condition Onset Date 2014 Current Complaints weakness, requires assistance with all mobility and household tasks History of Current Condition Reports that she suffered a stroke in 2014 after surgery for brain aneurysm. CVA caused weakness on the left side of her body, gait and balance difficulty, seizures. PT-OP-C Subjective Start: 05/28/19 08:11 Freq: Status: Active Protocol: Document 05/26/21 10:30 SAK (Rec: 05/26/21 11:21 [facility] [id number]) OP-PT Subjective Patient Comments Patient Comments Patient having surgery on cyst under her arm tomorrow . Feeling low energy, discomfort under arm. Doesn't want to do stairs today, states she didn't tolerate well last session. States she is not sure if her caregiver Q is going to work out; hasn't been very reliable at coming to work recently. PT-OP-D Balance Start: 05/28/19 08:11 Freq: Status: Active Protocol: Document 05/29/19 14:30 SAK (Rec: 05/30/19 14:24 SAK [id number]) OP-PT Balance Assessment Sitting Balance Static Sitting Balance Ability Good Dynamic Sitting Balance Ability Fair Standing Balance Static Standing Balance Ability Good Dynamic Standing Balance Ability Fair Device Used hemiwalker right Tinetti Balance Assessment Sitting Balance Sitting Balance Steady, safe Arising from Chair Attempts to Arise Able, requires >1 attempt Standing Balance Immediate Standing Balance Steady with support Standing Balance Steady, wide stance Nudged Response Begins to fall Standing with Eyes Closed Unsteady Turning Step Pattern Turning 360 Degrees Discontinuous steps Stability Turning 360 Degrees Unsteady, grabs/staggers Sitting Down Sitting Down Uses arms or unsteady Gait and Step Initiation of Gait Hesitancy, mult. attempts Right Foot Step Length Does not pass stance ft. Right Foot Step Height Does not clear floor Left Foot Step Length Does not pass stance foot Left Foot Step Height Does not clear floor Step Description Step Symmetry Step length not equal Gait Description Path Description Mild/moderate deviation Trunk Description Marked sway or uses aide Walking Stance Heels apart Scoring and Interpretation Tinetti Composite Score (points) 6 Interpretation of Scores High risk for falls(< 19) Herrera Fall Scale Copyright Permission PT-OP-E Functional Tests Start: 05/28/19 08:11 Freq: Status: Active Protocol: Document 05/14/21 10:50 [facility] (Rec: 05/14/21 11:08 [facility] [id number]) Functional Tests 6 Minute Walk Test Distance 169ft Device Used spc, TB wrapping Comments pt has headache today and feels that may have slowed her down. Timed Up and Go (TUG) Score 107 seconds PT-OP-G Mobility & Gait Start: 05/28/19 08:11 Freq: Status: Active Protocol: Document 05/26/20 11:15 SAK (Rec: 05/26/20 17:04 [facility] [id number]) OP Mobility Evaluation Bed Mobility Rolling min assist to right CGA to left Supine to and from Sit min assist to right CGA to left Transfers Sit to Stand CGA to min assist without UE use Bed to Chair Transfers requires use of right UE but able to do with SBA Floor Transfers unable PT-OP-H Neuro Start: 05/28/19 08:11 Freq: Status: Active Protocol: Document 05/29/19 14:30 SAK (Rec: 05/30/19 14:24 [facility] [id number]) Sensation Evaluation Gross Sensation Gross Sensation Left UE Impaired,Left LE Impaired Sensation Description Paresthesia,Numbness Coordination Evaluation Lower Extremity Tests Left Alternate Heel to Knee; Heel to Toe Test Moderate Impairment Heel on Boles Test Moderate Impairment Foot Tapping Test Moderate Impairment PT-OP-K Range of Motion Start: 05/28/19 08:11 Freq: Status: Active Protocol: Document 05/26/20 11:15 SAK (Rec: 05/26/20 17:04 [facility] [id number]) Hip Goniometric Range of Motion Hip jake Hip ROM WFL Yes Comments actively right LE, passively left LE Knee Goniometric Range of Motion Knee jake Knee ROM WFL Yes Ankle and Foot Goniometric Range of Motion Ankle and Foot Left Passive Ankle/Foot ROM WFL No Left Active Ankle/Foot ROM WFL No PT-OP-M Strength Start: 05/28/19 08:11 Freq: Status: Active Protocol: Document 05/26/20 11:15 [facility] (Rec: 05/26/20 17:04 [facility] [id number]) Hip Strength Hip Manual Muscle Testing Left Flexion (L2) 3- Fair- Extension (S1) 2 Poor Abduction 2+ Poor+ External Rotation 3- Fair- Internal Rotation 3+ Fair+ Right Flexion (L2) 4 Good Extension (S1) 4- Good- Abduction 4 Good External Rotation 3+ Fair+ Internal Rotation 4- Good- PT-OP-Q Treatments Start: 05/28/19 08:11 Freq: Status: Active Protocol: Document 05/26/21 10:30 [facility] (Rec: 05/26/21 11:21 [facility] [id number]) Cardio Equipment Recumbent Stepper (Sci-Fit) Duration (Minutes) 10 Resistance 2 Other 1.1 miles Gait Training Gait Activity forward gait at rail Description Forward/ backward gait with AFO Level of Assistance CGA Surface firm, mirror front for trunk alignment Distance/Duration 20 ft x1 laps Treatment Focus WB into LLE, dynamic balance Comments Provided CGA- SBA through gait belt from front on L side. Intermittent cues for LLE positioning more front and equal stride. Pt increased L trunk wt shift with cues forward, Contact rail backstepping. gait w/ AD no wrapping Description w/ TB wrapping w/ metronome 70 > 65bpm Device Used SPC Level of Assistance SBA Surface stable Distance/Duration 93 ft, Treatment Focus L knee flexion, hip IR, wt shift to left, step-through RLE gait Comments cued small step LLE, bigger step RLE: 2 pt gait and LLE awareness of adduction to decrease L hip ER. Decreased edurance today, required 2 seated rests. pre-gait weight shifts Description side to side (AFO doffed) Device Used //bars PRN Level of Assistance CG, verbal cues Surface firm Distance/Duration rail on R Treatment Focus increased weight bearing left LE (cued >50-75%) Comments didn't have mirror today for visual feedback to allow preparation phase with midline alignment followed by weight shifts stair mgt Comments patient refuses; states she didn't tolerate well last time , having surgery on cyst under right UE tomorrow. PT-OP-R Modalities Start: 05/28/19 08:11 Freq: Status: Active Protocol: Document 12/29/20 10:30 SP (Rec: 12/29/20 11:44 SP [id number]) Electric Stimulation Electric Stimulation Functional Electric Stimulation Body Location L hand/ forearm extensors Duration (Minutes) 2 Patient Position Sitting Comments NMES- education on placement of pad for muscular feedback extension based- check self placement understanding. PT-OP-T Assessment and Plan Start: 05/28/19 08:11 Freq: Status: Active Protocol: Document 05/26/21 10:30 SAK (Rec: 05/26/21 11:21 SAK [id number]) Physical Therapy Assessment Goals Five Impairment gait speed not adequate for safe community ambulation Automated Weaver Goal (LTG) Patient able to ambulate 300' in 6 min. TUG score no greater than 30 sec 06/02/20: 134' 08/28/20: 144', likely not as high due to new shoes and wearing old AFO because fits better in new shoes. Requires level 4 theraband for derotation of left LE into more neutral position for gait . 09/19/20: 146 ft 6 min w/ QC and Tb wrapping to LLE. 11/13/20: 153 ft CG w/ SPC 2>3 pt gait w/out metronome w/ reported L glut/ lateral leg burn pain, 2 step brief stand breaks. 11/24/20: progressing 173.7 ft using SPC, predominently 2 pt gait. TUG score 59 sec using SP 01/27/21: TUG 55 sec. , 6 min walk test 199.9 ft with SPC 03/19/21: 6 min walk test 165' , TUG 1:20. Continue with use of theraband for derotation of excess ER left LE with gait . 04/16/21: 6MWT 190 ft w/ SPC and TB wrapping assist hip IR. 04/23/21: 6MWT 181 ftw/ SPC and TB wrapping LTG Duration 06/30/21 Four Impairment requires assistance with bed mobility and transfers Short Term Goal (STG) Patient will be able to perform all bed mobility independently to improve her functional independence. 10/31/19: good goal progress 06/02/20:inconsistent, but min assist most times 11/24/20: Met goal: pt is independent in supine>sit. STG Duration goal met ( independent 11/24/20 ) Usp Goal (LTG) Patient will be able to perform a floor transfer with SB to min assist. 5x sit to stand score in no more than 15 sec as measure of functional strength for transfers 10/31/19: max assist today 01/02/20: has not been willing to try since 10/31/19 06/02/20: does not feel strong enough to try yet. 08/28/20: max assistance required 12/02/20: remains at max assist , not recently willing to attempt floor transfer. 5x sit to stand score 26 seconds 01/27/21: not tried recently. 03/24/21: 5x sit to stand 25 sec. No floor transfer today LTG Duration 06/30/21 Three Impairment weakness left UE and LE s/p CVA Usp Goal (LTG) Improve functional strength in left LE, as evidenced by ability to move from sit > < stand without use of UE's. 10/31/19: OT starts tomorrow. Good progress with sit to stand, though mostly using right UE and LE 01/02/20: Improving ability to perform, able to increase weight-bearing through left LE with cues, but still some use of right UE 05/26/20: With manual and visual feedback patient able to transfer sit to stand with only CG A. 08/28/20: inconsistent ability to move sit to stand without using UE's, but able to do transfer without physical assistance 11/24/20: Goal Met 01/27/21: more difficulty recently, having to use hands. Goal reactivated. 03/24/21: difficulty motor planning and performing sit to stand today. LTG Duration 06/30/21 Two Impairment balance dysfunction with high risk for falls Automated Weaver Goal (LTG) Improve balance as evidenced by improvement in Tinnetti balance and gait score to low fall risk range to improve safety in the home and community. 10/31/19: remains high risk for falls 01/02/20: some improvement but still in high risk category 05/26/20: Tinetti score in high risk category 08/28/20: moderate risk for falls 12/02/20: remains in moderate risk for falls. 01/27/21: moderate risk for falls 03/24/21: no significant change noted today but again having poor day. LTG Duration 06/30/21 One Impairment requires armaan-walker for gait, limited to household gait Usp Goal (LTG) Patient able to ambulate with least restrictive device for functional community distances to improve her functional independence and quality of life. 10/30/19: no progress due to Covid 19. 11/02/19: able to ambulate with quad cane but with very slow speed, household distances, very short community distances . 05/26/20: Now able to ambulate with use of single point cane and use of L4 theraband wrapped around left LE to facilitate left LE internal rotation for improved alignment. Patient unable to don the theraband on her own. Gait is for short distances and very slow at 39 ft in 2 min. 08/28/20: has demonstrated improved gait ability, still using theraband for derotation of LE for more neutral position. Able to consistenly use quad cane and is increasing stride length especially with cues. Now able to ascend and descend 4 stairs with min assist using railing. Mod assist on 6 stairs. 12/02/20: Patient ambulating with SPC, mostly household but some community distances, improved gait alignment with use of theraband for improved alignment. Patient not consistently able to ambulate community distances due to pain in her left LE, and lack of neurological control left LE. Patient may benefit from modification to her current AFO or fabrication of new AFO. 173 ft in 6 minutes 01/27/21: using SPC. Limitations due to left foot, knee and hip pain, right wrist pain 6 min walk test improved to 199.9 feet today 03/24/21: slower 6 min walk test today as above. Has had modification to her AFO with some improvement in her function, but had poor day today. LTG Duration 06/30/21 Assessment Summary Assessment Patient did not want to do stairs today due to reported poor tolerance last session. Patient had more difficulty with motor planning today, distracted and frustrated. Physical Therapy Plan Frequency and Duration Frequency of Treatment 2x/Week Duration of Treatment 12 wks Plan of Care Start Date 03/24/21 Plan of Care End Date 06/24/21 Therapeutic Interventions Therapeutic Interventions Aquatic Therapy,Balance Training,Gait Training,Home Exercise Program,Neuromuscular Re-education,Orthotic/ Prosthetic Management,Patient/ Caregiver Education,Self-Care/ Home Management,Taping, Therapeutic Activities, Therapeutic Exercises Modalities Cold Pack/Ice Massage,Hot Packs Next Visit Focus/Plan Next Note Type Treatment Note Next Visit Plan Work on increased gait training with AFO for distance and safety next session to work on her goal of walking to appointments.
--- NOTE | 2021-06-02 12:19 | PT.OTN ---
Current Diagnoses Hemiplegia, unspecified affecting unspecified side (06/02/21) Difficulty in walking, not elsewhere classified (06/02/21) Weakness (06/02/21) History of falling (06/02/21) Physical Therapy Treatment Note PT-OP-A Visit Information Start: 05/28/19 08:11 Freq: Status: Active Protocol: Document 06/02/21 10:33 SAK (Rec: 06/02/21 11:18 [facility] [id number]) Out-Patient Physical Therapy Visit Information Visit Information Visit Type Treatment Note Visit Note Patient dropped off at PT by her mother. Visit Start Time 10:35 Visit Stop Time 11:15 Total Visit Minutes 40 Visit Number 115 Number of MANAGER GARAGE Visits 0 Precautions Precautions Seizure disorder memory dysfunction PT-OP-B Current Condition Start: 05/28/19 08:11 Freq: Status: Active Protocol: Document 06/04/20 11:15 SAK (Rec: 06/05/20 16:34 [facility] [id number]) Current Condition History of Current Condition Onset Date 2014 Current Complaints weakness, requires assistance with all mobility and household tasks History of Current Condition Reports that she suffered a stroke in 2014 after surgery for brain aneurysm. CVA caused weakness on the left side of her body, gait and balance difficulty, seizures. PT-OP-C Subjective Start: 05/28/19 08:11 Freq: Status: Active Protocol: Document 06/02/21 10:33 SAK (Rec: 06/02/21 11:18 [facility] [id number]) OP-PT Subjective Patient Comments Patient Comments Doesn't have a caregiver at this point, going with new agency ([facility]) , hoping to have new caregiver soon. Wants to be able to walk 250'. PT-OP-D Balance Start: 05/28/19 08:11 Freq: Status: Active Protocol: Document 05/29/19 14:30 SAK (Rec: 05/30/19 14:24 SAK [id number]) OP-PT Balance Assessment Sitting Balance Static Sitting Balance Ability Good Dynamic Sitting Balance Ability Fair Standing Balance Static Standing Balance Ability Good Dynamic Standing Balance Ability Fair Device Used hemiwalker right Tinetti Balance Assessment Sitting Balance Sitting Balance Steady, safe Arising from Chair Attempts to Arise Able, requires >1 attempt Standing Balance Immediate Standing Balance Steady with support Standing Balance Steady, wide stance Nudged Response Begins to fall Standing with Eyes Closed Unsteady Turning Step Pattern Turning 360 Degrees Discontinuous steps Stability Turning 360 Degrees Unsteady, grabs/staggers Sitting Down Sitting Down Uses arms or unsteady Gait and Step Initiation of Gait Hesitancy, mult. attempts Right Foot Step Length Does not pass stance ft. Right Foot Step Height Does not clear floor Left Foot Step Length Does not pass stance foot Left Foot Step Height Does not clear floor Step Description Step Symmetry Step length not equal Gait Description Path Description Mild/moderate deviation Trunk Description Marked sway or uses aide Walking Stance Heels apart Scoring and Interpretation Tinetti Composite Score (points) 6 Interpretation of Scores High risk for falls(< 19) Herrera Fall Scale Copyright Permission PT-OP-E Functional Tests Start: 05/28/19 08:11 Freq: Status: Active Protocol: Document 05/14/21 10:50 [facility] (Rec: 05/14/21 11:08 [facility] [id number]) Functional Tests 6 Minute Walk Test Distance 169ft Device Used spc, TB wrapping Comments pt has headache today and feels that may have slowed her down. Timed Up and Go (TUG) Score 107 seconds PT-OP-G Mobility & Gait Start: 05/28/19 08:11 Freq: Status: Active Protocol: Document 05/26/20 11:15 SAK (Rec: 05/26/20 17:04 SAK [id number]) OP Mobility Evaluation Bed Mobility Rolling min assist to right CGA to left Supine to and from Sit min assist to right CGA to left Transfers Sit to Stand CGA to min assist without UE use Bed to Chair Transfers requires use of right UE but able to do with SBA Floor Transfers unable PT-OP-H Neuro Start: 05/28/19 08:11 Freq: Status: Active Protocol: Document 05/29/19 14:30 SAK (Rec: 05/30/19 14:24 SAK [id number]) Sensation Evaluation Gross Sensation Gross Sensation Left UE Impaired,Left LE Impaired Sensation Description Paresthesia,Numbness Coordination Evaluation Lower Extremity Tests Left Alternate Heel to Knee; Heel to Toe Test Moderate Impairment Heel on Boles Test Moderate Impairment Foot Tapping Test Moderate Impairment PT-OP-K Range of Motion Start: 05/28/19 08:11 Freq: Status: Active Protocol: Document 05/26/20 11:15 SAK (Rec: 05/26/20 17:04 SAK [id number]) Hip Goniometric Range of Motion Hip jake Hip ROM WFL Yes Comments actively right LE, passively left LE Knee Goniometric Range of Motion Knee jake Knee ROM WFL Yes Ankle and Foot Goniometric Range of Motion Ankle and Foot Left Passive Ankle/Foot ROM WFL No Left Active Ankle/Foot ROM WFL No PT-OP-M Strength Start: 05/28/19 08:11 Freq: Status: Active Protocol: Document 05/26/20 11:15 SAK (Rec: 05/26/20 17:04 SAK [id number]) Hip Strength Hip Manual Muscle Testing Left Flexion (L2) 3- Fair- Extension (S1) 2 Poor Abduction 2+ Poor+ External Rotation 3- Fair- Internal Rotation 3+ Fair+ Right Flexion (L2) 4 Good Extension (S1) 4- Good- Abduction 4 Good External Rotation 3+ Fair+ Internal Rotation 4- Good- PT-OP-Q Treatments Start: 05/28/19 08:11 Freq: Status: Active Protocol: Document 06/02/21 10:33 SAK (Rec: 06/02/21 11:18 [facility] [id number]) Cardio Equipment Recumbent Stepper (Sci-Fit) Duration (Minutes) 10 Resistance 2 Other 1.17 miles Gait Training Gait Activity forward gait at rail Description Forward with no AFO Level of Assistance CGA Surface firm, mirror front for trunk alignment Distance/Duration 10 ft Treatment Focus WB into LLE, dynamic balance Comments CG support on right rail, cues for weight-shift left, bigger step right. pre-gait weight shifts Description side to side (AFO doffed) Device Used //bars PRN Level of Assistance CG, verbal cues Surface firm Distance/Duration rail on R Treatment Focus increased weight bearing left LE (cued >50-75%) Comments mirror for visual feedback 1 Description level surface Device Used single point cane, AFO and TB wrapping Level of Assistance SBA, cues Surface indoor carpet, firm Distance/Duration 250' Treatment Focus L hip IR and decrease L knee hyperextension, pacing, metronome 60bpm Comments cues for increased weight shift to left, Self-Care/Home Management Treatment Education Other Education gait sequencing. Will do gait training with PT-OP-R Modalities Start: 05/28/19 08:11 Freq: Status: Active Protocol: Document 12/29/20 10:30 SP (Rec: 12/29/20 11:44 SP [id number]) Electric Stimulation Electric Stimulation Functional Electric Stimulation Body Location L hand/ forearm extensors Duration (Minutes) 2 Patient Position Sitting Comments NMES- education on placement of pad for muscular feedback extension based- check self placement understanding. PT-OP-T Assessment and Plan Start: 05/28/19 08:11 Freq: Status: Active Protocol: Document 06/02/21 10:33 SAK (Rec: 06/02/21 11:18 SAK [id number]) Physical Therapy Assessment Goals Five Impairment gait speed not adequate for safe community ambulation Senior Living Goal (LTG) Patient able to ambulate 300' in 6 min. TUG score no greater than 30 sec 06/02/20: 134' 08/28/20: 144', likely not as high due to new shoes and wearing old AFO because fits better in new shoes. Requires level 4 theraband for derotation of left LE into more neutral position for gait . 09/19/20: 146 ft 6 min w/ QC and Tb wrapping to LLE. 11/13/20: 153 ft CG w/ SPC 2>3 pt gait w/out metronome w/ reported L glut/ lateral leg burn pain, 2 step brief stand breaks. 11/24/20: progressing 173.7 ft using SPC, predominently 2 pt gait. TUG score 59 sec using SP 01/27/21: TUG 55 sec. , 6 min walk test 199.9 ft with SPC 03/19/21: 6 min walk test 165' , TUG 1:20. Continue with use of theraband for derotation of excess ER left LE with gait . 04/16/21: 6MWT 190 ft w/ SPC and TB wrapping assist hip IR. 04/23/21: 6MWT 181 ftw/ SPC and TB wrapping LTG Duration 06/30/21 Four Impairment requires assistance with bed mobility and transfers Short Term Goal (STG) Patient will be able to perform all bed mobility independently to improve her functional independence. 10/31/19: good goal progress 06/02/20:inconsistent, but min assist most times 11/24/20: Met goal: pt is independent in supine>sit. STG Duration goal met ( independent 11/24/20 ) Documentation Coordinator Goal (LTG) Patient will be able to perform a floor transfer with SB to min assist. 5x sit to stand score in no more than 15 sec as measure of functional strength for transfers 10/31/19: max assist today 01/02/20: has not been willing to try since 10/31/19 06/02/20: does not feel strong enough to try yet. 08/28/20: max assistance required 12/02/20: remains at max assist , not recently willing to attempt floor transfer. 5x sit to stand score 26 seconds 01/27/21: not tried recently. 03/24/21: 5x sit to stand 25 sec. No floor transfer today LTG Duration 06/30/21 Three Impairment weakness left UE and LE s/p CVA Senior Living Goal (LTG) Improve functional strength in left LE, as evidenced by ability to move from sit > < stand without use of UE's. 10/31/19: OT starts tomorrow. Good progress with sit to stand, though mostly using right UE and LE 01/02/20: Improving ability to perform, able to increase weight-bearing through left LE with cues, but still some use of right UE 05/26/20: With manual and visual feedback patient able to transfer sit to stand with only CG A. 08/28/20: inconsistent ability to move sit to stand without using UE's, but able to do transfer without physical assistance 11/24/20: Goal Met 01/27/21: more difficulty recently, having to use hands. Goal reactivated. 03/24/21: difficulty motor planning and performing sit to stand today. LTG Duration 06/30/21 Two Impairment balance dysfunction with high risk for falls Senior Living Goal (LTG) Improve balance as evidenced by improvement in Tinnetti balance and gait score to low fall risk range to improve safety in the home and community. 10/31/19: remains high risk for falls 01/02/20: some improvement but still in high risk category 05/26/20: Tinetti score in high risk category 08/28/20: moderate risk for falls 12/02/20: remains in moderate risk for falls. 01/27/21: moderate risk for falls 03/24/21: no significant change noted today but again having poor day. LTG Duration 06/30/21 One Impairment requires armaan-walker for gait, limited to household gait Senior Living Goal (LTG) Patient able to ambulate with least restrictive device for functional community distances to improve her functional independence and quality of life. 10/30/19: no progress due to Covid 19. 11/02/19: able to ambulate with quad cane but with very slow speed, household distances, very short community distances . 05/26/20: Now able to ambulate with use of single point cane and use of L4 theraband wrapped around left LE to facilitate left LE internal rotation for improved alignment. Patient unable to don the theraband on her own. Gait is for short distances and very slow at 39 ft in 2 min. 08/28/20: has demonstrated improved gait ability, still using theraband for derotation of LE for more neutral position. Able to consistenly use quad cane and is increasing stride length especially with cues. Now able to ascend and descend 4 stairs with min assist using railing. Mod assist on 6 stairs. 12/02/20: Patient ambulating with SPC, mostly household but some community distances, improved gait alignment with use of theraband for improved alignment. Patient not consistently able to ambulate community distances due to pain in her left LE, and lack of neurological control left LE. Patient may benefit from modification to her current AFO or fabrication of new AFO. 173 ft in 6 minutes 01/27/21: using SPC. Limitations due to left foot, knee and hip pain, right wrist pain 6 min walk test improved to 199.9 feet today 03/24/21: slower 6 min walk test today as above. Has had modification to her AFO with some improvement in her function, but had poor day today. LTG Duration 06/30/21 Assessment Summary Assessment Due to loss of caregiver patient not as active, not getting out as much, has lost some ground functionally. Was able to ambulate 250' with mod cues for sequencing, increased weight-shift to left LE. Fatigued and c/o right hand/UE pain and fatigue. Discussed gait training next session out of parallel bars with no device, wearing AFO and derotation wrapping; patient agreeable. Physical Therapy Plan Frequency and Duration Frequency of Treatment 2x/Week Duration of Treatment 12 wks Plan of Care Start Date 03/24/21 Plan of Care End Date 06/24/21 Therapeutic Interventions Therapeutic Interventions Aquatic Therapy,Balance Training,Gait Training,Home Exercise Program,Neuromuscular Re-education,Orthotic/ Prosthetic Management,Patient/ Caregiver Education,Self-Care/ Home Management,Taping, Therapeutic Activities, Therapeutic Exercises Modalities Cold Pack/Ice Massage,Hot Packs Next Visit Focus/Plan Next Note Type Treatment Note Next Visit Plan Gait training with no assistive device to facilitate increased weight shift to left, decreased over-reliance on right UE.
--- NOTE | 2021-06-08 10:32 | PT.OTN ---
Current Diagnoses Hemiplegia, unspecified affecting unspecified side (06/08/21) Difficulty in walking, not elsewhere classified (06/08/21) Weakness (06/08/21) History of falling (06/08/21) Physical Therapy Treatment Note PT-OP-A Visit Information Start: 05/28/19 08:11 Freq: Status: Active Protocol: Document 06/08/21 09:53 SP (Rec: 06/08/21 10:30 SP [id number]) Out-Patient Physical Therapy Visit Information Visit Information Visit Type Treatment Note Visit Note Patient dropped off at PT by her mother, 8 min late for appt. Visit Start Time 09:53 Visit Stop Time 10:32 Total Visit Minutes 39 Visit Number 116 Number of [employer] Visits 1 Precautions Precautions Seizure disorder memory dysfunction PT-OP-B Current Condition Start: 05/28/19 08:11 Freq: Status: Active Protocol: Document 06/04/20 11:15 SAK (Rec: 06/05/20 16:34 SAK [id number]) Current Condition History of Current Condition Onset Date 2014 Current Complaints weakness, requires assistance with all mobility and household tasks History of Current Condition Reports that she suffered a stroke in 2014 after surgery for brain aneurysm. CVA caused weakness on the left side of her body, gait and balance difficulty, seizures. PT-OP-C Subjective Start: 05/28/19 08:11 Freq: Status: Active Protocol: Document 06/08/21 09:53 SP (Rec: 06/08/21 10:30 SP [id number]) OP-PT Subjective Patient Comments Patient Comments Pt states was supposed to get a new caregiver this am from new company and didn't show up yet so mom brought her. Pt states wants to figure out how to keep L from rolling out and foot more DF when sleeping . Pt states LLE more unstable today and doesn't want to do gait without SPC today, not feeling safe. PT-OP-D Balance Start: 05/28/19 08:11 Freq: Status: Active Protocol: Document 05/29/19 14:30 SAK (Rec: 05/30/19 14:24 SAK [id number]) OP-PT Balance Assessment Sitting Balance Static Sitting Balance Ability Good Dynamic Sitting Balance Ability Fair Standing Balance Static Standing Balance Ability Good Dynamic Standing Balance Ability Fair Device Used hemiwalker right Tinetti Balance Assessment Sitting Balance Sitting Balance Steady, safe Arising from Chair Attempts to Arise Able, requires >1 attempt Standing Balance Immediate Standing Balance Steady with support Standing Balance Steady, wide stance Nudged Response Begins to fall Standing with Eyes Closed Unsteady Turning Step Pattern Turning 360 Degrees Discontinuous steps Stability Turning 360 Degrees Unsteady, grabs/staggers Sitting Down Sitting Down Uses arms or unsteady Gait and Step Initiation of Gait Hesitancy, mult. attempts Right Foot Step Length Does not pass stance ft. Right Foot Step Height Does not clear floor Left Foot Step Length Does not pass stance foot Left Foot Step Height Does not clear floor Step Description Step Symmetry Step length not equal Gait Description Path Description Mild/moderate deviation Trunk Description Marked sway or uses aide Walking Stance Heels apart Scoring and Interpretation Tinetti Composite Score (points) 6 Interpretation of Scores High risk for falls(< 19) Herrera Fall Scale Copyright Permission PT-OP-E Functional Tests Start: 05/28/19 08:11 Freq: Status: Active Protocol: Document 05/14/21 10:50 [facility] (Rec: 05/14/21 11:08 [facility] [id number]) Functional Tests 6 Minute Walk Test Distance 169ft Device Used spc, TB wrapping Comments pt has headache today and feels that may have slowed her down. Timed Up and Go (TUG) Score 107 seconds PT-OP-G Mobility & Gait Start: 05/28/19 08:11 Freq: Status: Active Protocol: Document 05/26/20 11:15 SAK (Rec: 05/26/20 17:04 [facility] [id number]) OP Mobility Evaluation Bed Mobility Rolling min assist to right CGA to left Supine to and from Sit min assist to right CGA to left Transfers Sit to Stand CGA to min assist without UE use Bed to Chair Transfers requires use of right UE but able to do with SBA Floor Transfers unable PT-OP-H Neuro Start: 05/28/19 08:11 Freq: Status: Active Protocol: Document 05/29/19 14:30 SAK (Rec: 05/30/19 14:24 [facility] [id number]) Sensation Evaluation Gross Sensation Gross Sensation Left UE Impaired,Left LE Impaired Sensation Description Paresthesia,Numbness Coordination Evaluation Lower Extremity Tests Left Alternate Heel to Knee; Heel to Toe Test Moderate Impairment Heel on Bloes Test Moderate Impairment Foot Tapping Test Moderate Impairment PT-OP-K Range of Motion Start: 05/28/19 08:11 Freq: Status: Active Protocol: Document 05/26/20 11:15 [facility] (Rec: 05/26/20 17:04 [facility] [id number]) Hip Goniometric Range of Motion Hip jake Hip ROM WFL Yes Comments actively right LE, passively left LE Knee Goniometric Range of Motion Knee jake Knee ROM WFL Yes Ankle and Foot Goniometric Range of Motion Ankle and Foot Left Passive Ankle/Foot ROM WFL No Left Active Ankle/Foot ROM WFL No PT-OP-M Strength Start: 05/28/19 08:11 Freq: Status: Active Protocol: Document 05/26/20 11:15 [facility] (Rec: 05/26/20 17:04 [facility] [id number]) Hip Strength Hip Manual Muscle Testing Left Flexion (L2) 3- Fair- Extension (S1) 2 Poor Abduction 2+ Poor+ External Rotation 3- Fair- Internal Rotation 3+ Fair+ Right Flexion (L2) 4 Good Extension (S1) 4- Good- Abduction 4 Good External Rotation 3+ Fair+ Internal Rotation 4- Good- PT-OP-Q Treatments Start: 05/28/19 08:11 Freq: Status: Active Protocol: Document 06/08/21 09:53 SP (Rec: 06/08/21 10:30 SP [id number]) Gait Training Gait Activity 1 Description level surface Device Used single point cane, AFO and TB wrapping Level of Assistance SBA, cues Surface indoor carpet, firm Distance/Duration 343 ft Treatment Focus L hip IR and decrease L knee hyperextension, pacing Comments cues for increased weight shift to left. good pacing but no metronome today. Neuro Re-Education Treatment Balance Activities standing balance Details lateral & A/P weight shifts in WBOS, head turns, EC Surface firm, sneakers w/ and w/out AFO LLE Equipment in//bars PRN contact Reps/Duration 8 min Comments cues and manual facilitation for soft L knee, increased weight-shift left, minimal UE support on //, able complete head turns and EC 6 sec w/ and without LLE AFO. PT-OP-R Modalities Start: 05/28/19 08:11 Freq: Status: Active Protocol: Document 12/29/20 10:30 SP (Rec: 12/29/20 11:44 SP [id number]) Electric Stimulation Electric Stimulation Functional Electric Stimulation Body Location L hand/ forearm extensors Duration (Minutes) 2 Patient Position Sitting Comments NMES- education on placement of pad for muscular feedback extension based- check self placement understanding. PT-OP-T Assessment and Plan Start: 05/28/19 08:11 Freq: Status: Active Protocol: Document 06/08/21 09:53 SP (Rec: 06/08/21 10:30 SP [id number]) Physical Therapy Assessment Goals Five Impairment gait speed not adequate for safe community ambulation Senior Living Goal (LTG) Patient able to ambulate 300' in 6 min. TUG score no greater than 30 sec 06/02/20: 134' 08/28/20: 144', likely not as high due to new shoes and wearing old AFO because fits better in new shoes. Requires level 4 theraband for derotation of left LE into more neutral position for gait . 09/19/20: 146 ft 6 min w/ QC and Tb wrapping to LLE. 11/13/20: 153 ft CG w/ SPC 2>3 pt gait w/out metronome w/ reported L glut/ lateral leg burn pain, 2 step brief stand breaks. 11/24/20: progressing 173.7 ft using SPC, predominently 2 pt gait. TUG score 59 sec using SP 01/27/21: TUG 55 sec. , 6 min walk test 199.9 ft with SPC 03/19/21: 6 min walk test 165' , TUG 1:20. Continue with use of theraband for derotation of excess ER left LE with gait . 04/16/21: 6MWT 190 ft w/ SPC and TB wrapping assist hip IR. 04/23/21: 6MWT 181 ftw/ SPC and TB wrapping LTG Duration 06/30/21 Four Impairment requires assistance with bed mobility and transfers Short Term Goal (STG) Patient will be able to perform all bed mobility independently to improve her functional independence. 10/31/19: good goal progress 06/02/20:inconsistent, but min assist most times 11/24/20: Met goal: pt is independent in supine>sit. STG Duration goal met ( independent 11/24/20 ) Senior Living Goal (LTG) Patient will be able to perform a floor transfer with SB to min assist. 5x sit to stand score in no more than 15 sec as measure of functional strength for transfers 10/31/19: max assist today 01/02/20: has not been willing to try since 10/31/19 06/02/20: does not feel strong enough to try yet. 08/28/20: max assistance required 12/02/20: remains at max assist , not recently willing to attempt floor transfer. 5x sit to stand score 26 seconds 01/27/21: not tried recently. 03/24/21: 5x sit to stand 25 sec. No floor transfer today LTG Duration 06/30/21 Three Impairment weakness left UE and LE s/p CVA [employer] Worker Goal (LTG) Improve functional strength in left LE, as evidenced by ability to move from sit > < stand without use of UE's. 10/31/19: OT starts tomorrow. Good progress with sit to stand, though mostly using right UE and LE 01/02/20: Improving ability to perform, able to increase weight-bearing through left LE with cues, but still some use of right UE 05/26/20: With manual and visual feedback patient able to transfer sit to stand with only CG A. 08/28/20: inconsistent ability to move sit to stand without using UE's, but able to do transfer without physical assistance 11/24/20: Goal Met 01/27/21: more difficulty recently, having to use hands. Goal reactivated. 03/24/21: difficulty motor planning and performing sit to stand today. LTG Duration 06/30/21 Two Impairment balance dysfunction with high risk for falls Senior Living Goal (LTG) Improve balance as evidenced by improvement in Tinnetti balance and gait score to low fall risk range to improve safety in the home and community. 10/31/19: remains high risk for falls 01/02/20: some improvement but still in high risk category 05/26/20: Tinetti score in high risk category 08/28/20: moderate risk for falls 12/02/20: remains in moderate risk for falls. 01/27/21: moderate risk for falls 03/24/21: no significant change noted today but again having poor day. 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 10/30/19: no progress due to Covid 19. 11/02/19: able to ambulate with quad cane but with very slow speed, household distances, very short community distances . 05/26/20: Now able to ambulate with use of single point cane and use of L4 theraband wrapped around left LE to facilitate left LE internal rotation for improved alignment. Patient unable to don the theraband on her own. Gait is for short distances and very slow at 39 ft in 2 min. 08/28/20: has demonstrated improved gait ability, still using theraband for derotation of LE for more neutral position. Able to consistenly use quad cane and is increasing stride length especially with cues. Now able to ascend and descend 4 stairs with min assist using railing. Mod assist on 6 stairs. 12/02/20: Patient ambulating with SPC, mostly household but some community distances, improved gait alignment with use of theraband for improved alignment. Patient not consistently able to ambulate community distances due to pain in her left LE, and lack of neurological control left LE. Patient may benefit from modification to her current AFO or fabrication of new AFO. 173 ft in 6 minutes 01/27/21: using SPC. Limitations due to left foot, knee and hip pain, right wrist pain 6 min walk test improved to 199.9 feet today 03/24/21: slower 6 min walk test today as above. Has had modification to her AFO with some improvement in her function, but had poor day today. LTG Duration 06/30/21 Assessment Summary Assessment Pt increased distance gait 343 ft w/ SPC and blue TB, no metronome this tx but improved more consistant gait cadance and LE stride small L, bigger RLE self verbalized. Pt was able to stand 6 sec EC w/ andw /out L AFO. Physical Therapy Plan Frequency and Duration Frequency of Treatment 2x/Week Duration of Treatment 12 wks Plan of Care Start Date 03/24/21 Plan of Care End Date 06/24/21 Therapeutic Interventions Therapeutic Interventions Aquatic Therapy,Balance Training,Gait Training,Home Exercise Program,Neuromuscular Re-education,Orthotic/ Prosthetic Management,Patient/ Caregiver Education,Self-Care/ Home Management,Taping, Therapeutic Activities, Therapeutic Exercises Modalities Cold Pack/Ice Massage,Hot Packs Next Visit Focus/Plan Next Note Type Treatment Note Next Visit Plan Gait training with no assistive device to facilitate increased weight shift to left, decreased over-reliance on right UE. Neuro head turns for scanning in community balance and EC for trunk self corrections.
--- NOTE | 2021-06-16 10:17 | PT-OP ANOTE ---
Pt did not show for scheduled appointment. This PT phoned and pt stated appointment was not on her schedule and she did not receive a reminder call. Reminded pt of next scheduled appointment.
--- NOTE | 2021-06-23 13:45 | PT.OTN ---
Current Diagnoses Hemiplegia, unspecified affecting unspecified side (06/23/21) Difficulty in walking, not elsewhere classified (06/23/21) Weakness (06/23/21) History of falling (06/23/21) Physical Therapy Treatment Note PT-OP-A Visit Information Start: 05/28/19 08:11 Freq: Status: Active Protocol: Document 06/23/21 13:01 SP (Rec: 06/23/21 13:46 SP [id number]) Out-Patient Physical Therapy Visit Information Visit Information Visit Type Treatment Note Visit Note PN next tx 06/15/21. POC expires 06/24/21. New Caregiver Allie attended, observation only today. 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 CVA caused weakness on the left side of her body, gait and balance difficulty, seizures. PT-OP-C Subjective Start: 05/28/19 08:11 Freq: Status: Active Protocol: Document 06/23/21 13:01 SP (Rec: 06/23/21 13:46 SP [id number]) OP-PT Subjective Patient Comments Patient Comments Pt reports Just got done at Dr José Miguel forde, dryneedling back and neck. PT-OP-D Balance Start: 05/28/19 08:11 Freq: Status: Active Protocol: Document 05/29/19 14:30 SAK (Rec: 05/30/19 14:24 SAK [id number]) OP-PT Balance Assessment Sitting Balance Static Sitting Balance Ability Good Dynamic Sitting Balance Ability Fair Standing Balance Static Standing Balance Ability Good Dynamic Standing Balance Ability Fair Device Used [facility] right Tinetti Balance Assessment Sitting Balance Sitting Balance Steady, safe Arising from Chair Attempts to Arise Able, requires >1 attempt Standing Balance Immediate Standing Balance Steady with support Standing Balance Steady, wide stance Nudged Response Begins to fall Standing with Eyes Closed Unsteady Turning Step Pattern Turning 360 Degrees Discontinuous steps Stability Turning 360 Degrees Unsteady, grabs/staggers Sitting Down Sitting Down Uses arms or unsteady Gait and Step Initiation of Gait Hesitancy, mult. attempts Right Foot Step Length Does not pass stance ft. Right Foot Step Height Does not clear floor Left Foot Step Length Does not pass stance foot Left Foot Step Height Does not clear floor Step Description Step Symmetry Step length not equal Gait Description Path Description Mild/moderate deviation Trunk Description Marked sway or uses aide Walking Stance Heels apart Scoring and Interpretation Tinetti Composite Score (points) 6 Interpretation of Scores High risk for falls(< 19) Herrera Fall Scale Copyright Permission PT-OP-E Functional Tests Start: 05/28/19 08:11 Freq: Status: Active Protocol: Document 05/14/21 10:50 AMH (Rec: 05/14/21 11:08 AMH [id number]) Functional Tests 6 Minute Walk Test Distance 169ft Device Used spc, TB wrapping Comments pt has headache today and feels that may have slowed her down. Timed Up and Go (TUG) Score 107 seconds PT-OP-G Mobility & Gait Start: 05/28/19 08:11 Freq: Status: Active Protocol: Document 05/26/20 11:15 SAK (Rec: 05/26/20 17:04 SAK [id number]) OP Mobility Evaluation Bed Mobility Rolling min assist to right CGA to left Supine to and from Sit min assist to right CGA to left Transfers Sit to Stand CGA to min assist without UE use Bed to Chair Transfers requires use of right UE but able to do with SBA Floor Transfers unable PT-OP-H Neuro Start: 05/28/19 08:11 Freq: Status: Active Protocol: Document 05/29/19 14:30 SAK (Rec: 05/30/19 14:24 SAK [id number]) Sensation Evaluation Gross Sensation Gross Sensation Left UE Impaired,Left LE Impaired Sensation Description Paresthesia,Numbness Coordination Evaluation Lower Extremity Tests Left Alternate Heel to Knee; Heel to Toe Test Moderate Impairment Heel on Boles Test Moderate Impairment Foot Tapping Test Moderate Impairment PT-OP-K Range of Motion Start: 05/28/19 08:11 Freq: Status: Active Protocol: Document 05/26/20 11:15 SAK (Rec: 05/26/20 17:04 SAK [id number]) Hip Goniometric Range of Motion Hip jake Hip ROM WFL Yes Comments actively right LE, passively left LE Knee Goniometric Range of Motion Knee jake Knee ROM WFL Yes Ankle and Foot Goniometric Range of Motion Ankle and Foot Left Passive Ankle/Foot ROM WFL No Left Active Ankle/Foot ROM WFL No PT-OP-M Strength Start: 05/28/19 08:11 Freq: Status: Active Protocol: Document 05/26/20 11:15 SAK (Rec: 05/26/20 17:04 SAK [id number]) Hip Strength Hip Manual Muscle Testing Left Flexion (L2) 3- Fair- Extension (S1) 2 Poor Abduction 2+ Poor+ External Rotation 3- Fair- Internal Rotation 3+ Fair+ Right Flexion (L2) 4 Good Extension (S1) 4- Good- Abduction 4 Good External Rotation 3+ Fair+ Internal Rotation 4- Good- PT-OP-Q Treatments Start: 05/28/19 08:11 Freq: Status: Active Protocol: Document 06/23/21 13:01 SP (Rec: 06/23/21 13:46 SP [id number]) Cardio Equipment Recumbent Elliptical ([employer]) Duration (Minutes) 6 Resistance 2.5 Seat Position 7 seen Other no AFO, intermittent Mod A for LLE adduction w/ interm cues Therapeutic Exercises Standing Exercises sit stands w/ AFO donned Standing Exercise Name no UEs Equipment Used 18 chair, RUE as needdd Reps/Minutes x10 Comments verbal and manual cues for increased use of left LE Gait Training Gait Activity forward/back steps Device Used near rail, PRN if needed Level of Assistance no AD, CG to min assist Surface firm w/ AFO Distance/Duration 20 ft x2 laps Treatment Focus increase weight bearing LLE Comments nervous back stepping but able to complete CGA, cued as needed for L quad facilitation back stepping. 1 Description level surface Device Used single point cane, AFO and TB wrapping Level of Assistance SBA, cues Surface indoor carpet, firm Distance/Duration 187 ft Treatment Focus L hip IR and decrease L knee hyperextension, pacing Comments cues for increased weight shift to left. good pacing but no metronome 65 SPM today. Neuro Re-Education Treatment Balance Activities NBOS, modified tandem Details lateral & A/P weight shifts in WBOS, head turns, EC Surface firm, sneakers w/ and w/AFO LLE Equipment R rail PRN contact Reps/Duration 8 min Comments awareness corrections due leaning forward, will use mirror next time. Self-Care/Home Management Treatment Education Patient Education Body Mechanics,Home Exercise Program,Posture,Safety Caregiver Education Provided caregiver education on how don TB wrapping counterclockwise to LLE to support adduction/IR for endurance in gait, gait sequencing. Allie took pic of wrapping for recall. Other Education Discussed with pt and Allie assist with outdoor gait w/ SPC and TB wrapping level surfaces with to progress endurance [address] nearby benches for seated rest if needed. PT-OP-R Modalities Start: 05/28/19 08:11 Freq: Status: Active Protocol: Document 12/29/20 10:30 SP (Rec: 12/29/20 11:44 SP [id number]) Electric Stimulation Electric Stimulation Functional Electric Stimulation Body Location L hand/ forearm extensors Duration (Minutes) 2 Patient Position Sitting Comments NMES- education on placement of pad for muscular feedback extension based- check self placement understanding. PT-OP-T Assessment and Plan Start: 05/28/19 08:11 Freq: Status: Active Protocol: Document 06/23/21 13:01 SP (Rec: 06/23/21 13:46 SP [id number]) Physical Therapy Assessment Goals Five Impairment gait speed not adequate for safe community ambulation Airport Clerk Goal (LTG) Patient able to ambulate 300' in 6 min. TUG score no greater than 30 sec 06/02/20: 134' 08/28/20: 144', likely not as high due to new shoes and wearing old AFO because fits better in new shoes. Requires level 4 theraband for derotation of left LE into more neutral position for gait . 09/19/20: 146 ft 6 min w/ QC and Tb wrapping to LLE. 11/13/20: 153 ft CG w/ SPC 2>3 pt gait w/out metronome w/ reported L glut/ lateral leg burn pain, 2 step brief stand breaks. 11/24/20: progressing 173.7 ft using SPC, predominently 2 pt gait. TUG score 59 sec using SP 01/27/21: TUG 55 sec. , 6 min walk test 199.9 ft with SPC 03/19/21: 6 min walk test 165' , TUG 1:20. Continue with use of theraband for derotation of excess ER left LE with gait . 04/16/21: 6MWT 190 ft w/ SPC and TB wrapping assist hip IR. 04/23/21: 6MWT 181 ftw/ SPC and TB wrapping LTG Duration 06/30/21 Four Impairment requires assistance with bed mobility and transfers Short Term Goal (STG) Patient will be able to perform all bed mobility independently to improve her functional independence. 10/31/19: good goal progress 06/02/20:inconsistent, but min assist most times 11/24/20: Met goal: pt is independent in supine>sit. STG Duration goal met ( independent 11/24/20 ) Fpc Goal (LTG) Patient will be able to perform a floor transfer with SB to min assist. 5x sit to stand score in no more than 15 sec as measure of functional strength for transfers 10/31/19: max assist today 01/02/20: has not been willing to try since 10/31/19 06/02/20: does not feel strong enough to try yet. 08/28/20: max assistance required 12/02/20: remains at max assist , not recently willing to attempt floor transfer. 5x sit to stand score 26 seconds 01/27/21: not tried recently. 03/24/21: 5x sit to stand 25 sec. No floor transfer today LTG Duration 06/30/21 Three Impairment weakness left UE and LE s/p CVA Airport Clerk Goal (LTG) Improve functional strength in left LE, as evidenced by ability to move from sit > < stand without use of UE's. 10/31/19: OT starts tomorrow. Good progress with sit to stand, though mostly using right UE and LE 01/02/20: Improving ability to perform, able to increase weight-bearing through left LE with cues, but still some use of right UE 05/26/20: With manual and visual feedback patient able to transfer sit to stand with only CG A. 08/28/20: inconsistent ability to move sit to stand without using UE's, but able to do transfer without physical assistance 11/24/20: Goal Met 01/27/21: more difficulty recently, having to use hands. Goal reactivated. 03/24/21: difficulty motor planning and performing sit to stand today. LTG Duration 06/30/21 Two Impairment balance dysfunction with high risk for falls Airport Clerk Goal (LTG) Improve balance as evidenced by improvement in Tinnetti balance and gait score to low fall risk range to improve safety in the home and community. 10/31/19: remains high risk for falls 01/02/20: some improvement but still in high risk category 05/26/20: Tinetti score in high risk category 08/28/20: moderate risk for falls 12/02/20: remains in moderate risk for falls. 01/27/21: moderate risk for falls 03/24/21: no significant change noted today but again having poor day. LTG Duration 06/30/21 One Impairment requires armaan-walker for gait, limited to household gait Fpc Goal (LTG) Patient able to ambulate with least restrictive device for functional community distances to improve her functional independence and quality of life. 10/30/19: no progress due to Covid 19. 11/02/19: able to ambulate with quad cane but with very slow speed, household distances, very short community distances . 05/26/20: Now able to ambulate with use of single point cane and use of L4 theraband wrapped around left LE to facilitate left LE internal rotation for improved alignment. Patient unable to don the theraband on her own. Gait is for short distances and very slow at 39 ft in 2 min. 08/28/20: has demonstrated improved gait ability, still using theraband for derotation of LE for more neutral position. Able to consistenly use quad cane and is increasing stride length especially with cues. Now able to ascend and descend 4 stairs with min assist using railing. Mod assist on 6 stairs. 12/02/20: Patient ambulating with SPC, mostly household but some community distances, improved gait alignment with use of theraband for improved alignment. Patient not consistently able to ambulate community distances due to pain in her left LE, and lack of neurological control left LE. Patient may benefit from modification to her current AFO or fabrication of new AFO. 173 ft in 6 minutes 01/27/21: using SPC. Limitations due to left foot, knee and hip pain, right wrist pain 6 min walk test improved to 199.9 feet today 03/24/21: slower 6 min walk test today as above. Has had modification to her AFO with some improvement in her function, but had poor day today. LTG Duration 06/30/21 Assessment Summary Assessment Pt decreased gait distance endurance post biodex use beginning of tx, best to use scifit and gait 1st activity. Pt improved 65 SPM metronome, cues for LLE small, RLE larger step more focused. Physical Therapy Plan Frequency and Duration Frequency of Treatment 2x/Week Duration of Treatment 12 wks Plan of Care Start Date 03/24/21 Plan of Care End Date 06/24/21 Therapeutic Interventions Therapeutic Interventions Aquatic Therapy,Balance Training,Gait Training,Home Exercise Program,Neuromuscular Re-education,Orthotic/ Prosthetic Management,Patient/ Caregiver Education,Self-Care/ Home Management,Taping, Therapeutic Activities, Therapeutic Exercises Modalities Cold Pack/Ice Massage,Hot Packs Next Visit Focus/Plan Next Note Type Treatment Note Next Visit Plan Gait training with no assistive device to facilitate increased weight shift to left, decreased over-reliance on right UE. Neuro head turns for scanning in community balance and EC for trunk self corrections.
--- NOTE | 2021-06-25 13:07 | PT.OTRE ---
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 Cervical somatic dysfunction Chronic constipation Chronic hip pain after total replacement of left hip joint Chronic neck pain Chronic neck pain Chronic neck pain with abnormal neurologic examination Chronic pain Chronic pain of left lower extremity Chronic pain of right lower extremity Chronic right hip pain Chronic right shoulder pain Chronic right-sided thoracic back pain Constipation Cranial somatic dysfunction Dominant hemiplegia complicating stroke Dry mouth, unspecified Dysphagia Elevated BP without diagnosis of hypertension Excessive vitamin B12 intake Family history of colon cancer Fatigue Foot drop, left Generalized anxiety disorder GERD (gastroesophageal reflux disease) Headache Hyperextension deformity of left knee Hypothyroidism Iliotibial band syndrome, left leg Irritable bowel syndrome Left hand weakness Left hemiplegia Left leg weakness Major depressive disorder Mass of right axilla Menorrhagia Mixed hyperlipidemia Neuropathic pain Obesity Obesity (BMI 35.0-39.9 without comorbidity) JM (obstructive sleep apnea) Pelvic somatic dysfunction Right wrist pain Seasonal allergies Segmental and somatic dysfunction of abdomen and other regions Segmental and somatic dysfunction of lumbar region Segmental and somatic dysfunction of rib cage Segmental and somatic dysfunction of sacral region Segmental and somatic dysfunction of thoracic region Seizure disorder Shortness of breath Sleep apnea in adult Stiff neck Stroke Throat disorder Vision changes Vision disorder Vitamin D deficiency Weight gain finding Surgical History (Last Reviewed 06/11/21 @ 10:28 by KINJAL Cooper) Anesthesia Brain aneurysm (~03/25/15) De Quervain's syndrome (tenosynovitis) (~1996) Visit Care Team Role Provider Type KINJAL Cooper Attending Provider Advanced Buckle Attacher Primary Care Provider Specialty: Family Practice Address: [address] [place] [address], [id number] Email: [email or web address] Physical Therapy Re-Evaluation PT-OP-A Visit Information Start: 05/28/19 08:11 Freq: Status: Active Protocol: Document 06/25/21 09:38 SAK (Rec: 06/25/21 10:32 [facility] [id number]) Out-Patient Physical Therapy Visit Information Visit Information Visit Type Re-Evaluation Visit Start Time 09:45 Visit Stop Time 10:40 Total Visit Minutes 55 Visit Number 118 Number of BEZEL CUTTER Visits 0 Precautions Precautions Seizure disorder memory dysfunction PT-OP-B Current Condition Start: 05/28/19 08:11 Freq: Status: Active Protocol: Document 06/04/20 11:15 SAK (Rec: 06/05/20 16:34 [facility] [id number]) Current Condition History of Current Condition Onset Date 2014 Current Complaints weakness, requires assistance with all mobility and household tasks History of Current Condition Reports that she suffered a stroke in 2014 after surgery for brain aneurysm. CVA caused weakness on the left side of her body, gait and balance difficulty, seizures. PT-OP-C Subjective Start: 05/28/19 08:11 Freq: Status: Active Protocol: Document 06/25/21 09:38 SAK (Rec: 06/25/21 10:32 [facility] [id number]) OP-PT Subjective Patient Comments Patient Comments Not feeling well today, down about her body. [place] good after seeing Dr. Valdez but pain inc after PT. PT-OP-D Balance Start: 05/28/19 08:11 Freq: Status: Active Protocol: Document 05/29/19 14:30 SAK (Rec: 05/30/19 14:24 [facility] [id number]) OP-PT Balance Assessment Sitting Balance Static Sitting Balance Ability Good Dynamic Sitting Balance Ability Fair Standing Balance Static Standing Balance Ability Good Dynamic Standing Balance Ability Fair Device Used hemiwalker right Tinetti Balance Assessment Sitting Balance Sitting Balance Steady, safe Arising from Chair Attempts to Arise Able, requires >1 attempt Standing Balance Immediate Standing Balance Steady with support Standing Balance Steady, wide stance Nudged Response Begins to fall Standing with Eyes Closed Unsteady Turning Step Pattern Turning 360 Degrees Discontinuous steps Stability Turning 360 Degrees Unsteady, grabs/staggers Sitting Down Sitting Down Uses arms or unsteady Gait and Step Initiation of Gait Hesitancy, mult. attempts Right Foot Step Length Does not pass stance ft. Right Foot Step Height Does not clear floor Left Foot Step Length Does not pass stance foot Left Foot Step Height Does not clear floor Step Description Step Symmetry Step length not equal Gait Description Path Description Mild/moderate deviation Trunk Description Marked sway or uses aide Walking Stance Heels apart Scoring and Interpretation Tinetti Composite Score (points) 6 Interpretation of Scores High risk for falls(< 19) Herrera Fall Scale Copyright Permission Javier JM, Javier RM, Baldev SJ. Development of a scale to identify the fall- prone patient. Can J Aging 1989;8;366-7. Fabian Herrera (2009). Preventing patient falls. (2nd ed). [place]: Bai. PT-OP-E Functional Tests Start: 05/28/19 08:11 Freq: Status: Active Protocol: Document 05/14/21 10:50 [facility] (Rec: 05/14/21 11:08 [facility] [id number]) Functional Tests 6 Minute Walk Test Distance 169ft Device Used spc, TB wrapping Comments pt has headache today and feels that may have slowed her down. Timed Up and Go (TUG) Score 107 seconds PT-OP-G Mobility & Gait Start: 05/28/19 08:11 Freq: Status: Active Protocol: Document 05/26/20 11:15 SAK (Rec: 05/26/20 17:04 [facility] [id number]) OP Mobility Evaluation Bed Mobility Rolling min assist to right CGA to left Supine to and from Sit min assist to right CGA to left Transfers Sit to Stand CGA to min assist without UE use Bed to Chair Transfers requires use of right UE but able to do with SBA Floor Transfers unable PT-OP-H Neuro Start: 05/28/19 08:11 Freq: Status: Active Protocol: Document 05/29/19 14:30 SAK (Rec: 05/30/19 14:24 [facility] [id number]) Sensation Evaluation Gross Sensation Gross Sensation Left UE Impaired,Left LE Impaired Sensation Description Paresthesia,Numbness Coordination Evaluation Lower Extremity Tests Left Alternate Heel to Knee; Heel to Toe Test Moderate Impairment Heel on Boles Test Moderate Impairment Foot Tapping Test Moderate Impairment PT-OP-K Range of Motion Start: 05/28/19 08:11 Freq: Status: Active Protocol: Document 05/26/20 11:15 SAK (Rec: 05/26/20 17:04 [facility] [id number]) Hip Goniometric Range of Motion Hip Measured in Degrees jake Hip ROM WFL Yes Comments actively right LE, passively left LE Knee Goniometric Range of Motion Knee Measured in Degrees jake Knee ROM WFL Yes Ankle and Foot Goniometric Range of Motion Ankle and Foot Measured in Degrees Left Passive Ankle/Foot ROM WFL No Left Active Ankle/Foot ROM WFL No PT-OP-M Strength Start: 05/28/19 08:11 Freq: Status: Active Protocol: Document 05/26/20 11:15 [facility] (Rec: 05/26/20 17:04 [facility] [id number]) Hip Strength Hip Manual Muscle Testing Left Flexion (L2) 3- Fair- Extension (S1) 2 Poor Abduction 2+ Poor+ External Rotation 3- Fair- Internal Rotation 3+ Fair+ Right Flexion (L2) 4 Good Extension (S1) 4- Good- Abduction 4 Good External Rotation 3+ Fair+ Internal Rotation 4- Good- PT-OP-Q Treatments Start: 05/28/19 08:11 Freq: Status: Active Protocol: Document 06/25/21 09:38 [facility] (Rec: 06/25/21 10:32 [facility] [id number]) Cardio Equipment Recumbent Elliptical ([employer]) Duration (Minutes) 10 Resistance 2.0 Seat Position 7 seen Other no AFO, intermittent Mod A for LLE adduction w/ interm cues Therapeutic Exercises Standing Exercises sit stands w/ AFO donned Standing Exercise Name no UEs Equipment Used 18 chair, RUE as needdd Reps/Minutes x10 Comments verbal and manual cues for increased use of left LE weight-shifting Standing Exercise Name side to side, front to back Resistance no AFO Equipment Used R HR Comments mirror for visual feedback, verbal and manual cues minisquats Standing Exercise Name squats Equipment Used 18 chair Reps/Minutes 10x Comments no AFO; mirror for visual feedback Gait Training Gait Activity timed get up and go test Comments with hurry cane, TB wrap, AFO forward/back steps Device Used near rail, PRN if needed Level of Assistance no AD, CG to min assist Surface firm w/ AFO Distance/Duration 20 ft x2 laps Treatment Focus increase weight bearing LLE Comments nervous back stepping but able to complete CGA, cued as needed for L quad facilitation back stepping. 1 Description level surface Device Used single point cane, AFO and TB wrapping Level of Assistance SBA, cues Surface indoor carpet, firm Distance/Duration 187 ft Treatment Focus L hip IR and decrease L knee hyperextension, pacing Comments cues for increased weight shift to left. good pacing but no metronome 65 SPM today. Neuro Re-Education Treatment Balance Activities NBOS, modified tandem Details lateral & A/P weight shifts in WBOS, head turns, EC Surface firm, sneakers w/ and w/AFO LLE Equipment R rail PRN contact Reps/Duration 8 min Comments awareness corrections due leaning forward, will use mirror next time. Self-Care/Home Management Treatment Education Patient Education Body Mechanics,Home Exercise Program,Posture,Safety PT-OP-R Modalities Start: 05/28/19 08:11 Freq: Status: Active Protocol: Document 12/29/20 10:30 [facility] (Rec: 12/29/20 11:44 [facility] [id number]) Electric Stimulation Electric Stimulation Functional Electric Stimulation Body Location L hand/ forearm extensors Duration (Minutes) 2 Patient Position Sitting Comments NMES- education on placement of pad for muscular feedback extension based- check self placement understanding. PT-OP-T Assessment and Plan Start: 05/28/19 08:11 Freq: Status: Active Protocol: Document 06/25/21 09:38 SAK (Rec: 06/25/21 10:32 [facility] [id number]) Physical Therapy Assessment Goals Five Impairment gait speed not adequate for safe community ambulation Intermediate Goal (LTG) Patient able to ambulate 300' in 6 min. TUG score no greater than 30 sec 06/02/20: 134' 08/28/20: 144', likely not as high due to new shoes and wearing old AFO because fits better in new shoes. Requires level 4 theraband for derotation of left LE into more neutral position for gait . 09/19/20: 146 ft 6 min w/ QC and Tb wrapping to LLE. 11/13/20: 153 ft CG w/ SPC 2>3 pt gait w/out metronome w/ reported L glut/ lateral leg burn pain, 2 step brief stand breaks. 11/24/20: progressing 173.7 ft using SPC, predominently 2 pt gait. TUG score 59 sec using SP 01/27/21: TUG 55 sec. , 6 min walk test 199.9 ft with SPC 03/19/21: 6 min walk test 165' , TUG 1:20. Continue with use of theraband for derotation of excess ER left LE with gait . 04/16/21: 6MWT 190 ft w/ SPC and TB wrapping assist hip IR. 04/23/21: 6MWT 181 ftw/ SPC and TB wrapping 06/25/21: 6MWT 180 ft with SPC and TB wrapping. TU sec LTG Duration 09/22/21 Four Impairment requires assistance with bed mobility and transfers Short Term Goal (STG) Patient will be able to perform all bed mobility independently to improve her functional independence. 10/31/19: good goal progress 06/02/20:inconsistent, but min assist most times 11/24/20: Met goal: pt is independent in supine>sit. STG Duration goal met ( independent 11/24/20 ) Intermediate Goal (LTG) Patient will be able to perform a floor transfer with SB to min assist. 5x sit to stand score in no more than 15 sec as measure of functional strength for transfers 10/31/19: max assist today 01/02/20: has not been willing to try since 10/31/19 06/02/21: does not feel strong enough to try yet. 06/25/21: 08/28/20: max assistance required 12/02/20: remains at max assist , not recently willing to attempt floor transfer. 5x sit to stand score 26 seconds 01/27/21: not tried recently. 03/24/21: 5x sit to stand 25 sec. No floor transfer today 06/25/21: 5x sit to stand 24 sec. Patient didn't feel up to doing floor transfer, remains a concern LTG Duration 09/22/21 Three Impairment weakness left UE and LE s/p CVA Toggle Press Operator Goal (LTG) Improve functional strength in left LE, as evidenced by ability to move from sit > < stand without use of UE's. 10/31/19: OT starts tomorrow. Good progress with sit to stand, though mostly using right UE and LE 01/02/20: Improving ability to perform, able to increase weight-bearing through left LE with cues, but still some use of right UE 05/26/20: With manual and visual feedback patient able to transfer sit to stand with only CG A. 08/28/20: inconsistent ability to move sit to stand without using UE's, but able to do transfer without physical assistance 11/24/20: Goal Met 01/27/21: more difficulty recently, having to use hands. Goal reactivated. 03/24/21: difficulty motor planning and performing sit to stand today. 06/25/21: patient becomes frustrated with sit to stand transfers as she expresses she feels she has a hard time remembering how to do it, has to use right UE LTG Duration 09/22/21 Two Impairment balance dysfunction with high risk for falls Toggle Press Operator Goal (LTG) Improve balance as evidenced by improvement in Tinnetti balance and gait score to low fall risk range to improve safety in the home and community. 10/31/19: remains high risk for falls 01/02/20: some improvement but still in high risk category 05/26/20: Tinetti score in high risk category 08/28/20: moderate risk for falls 12/02/20: remains in moderate risk for falls. 01/27/21: moderate risk for falls 03/24/21: no significant change noted today but again having poor day. 06/25/21: Moderate risk for falls, though no reported falls over past few months. LTG Duration 09/22/21 One Impairment requires armaan-walker for gait, limited to household gait Intermediate Goal (LTG) Patient able to ambulate with least restrictive device for functional community distances to improve her functional independence and quality of life. 10/30/19: no progress due to Covid 19. 11/02/19: able to ambulate with quad cane but with very slow speed, household distances, very short community distances . 05/26/20: Now able to ambulate with use of single point cane and use of L4 theraband wrapped around left LE to facilitate left LE internal rotation for improved alignment. Patient unable to don the theraband on her own. Gait is for short distances and very slow at 39 ft in 2 min. 08/28/20: has demonstrated improved gait ability, still using theraband for derotation of LE for more neutral position. Able to consistenly use quad cane and is increasing stride length especially with cues. Now able to ascend and descend 4 stairs with min assist using railing. Mod assist on 6 stairs. 12/02/20: Patient ambulating with SPC, mostly household but some community distances, improved gait alignment with use of theraband for improved alignment. Patient not consistently able to ambulate community distances due to pain in her left LE, and lack of neurological control left LE. Patient may benefit from modification to her current AFO or fabrication of new AFO. 173 ft in 6 minutes 01/27/21: using SPC. Limitations due to left foot, knee and hip pain, right wrist pain 6 min walk test improved to 199.9 feet today 03/24/21: slower 6 min walk test today as above. Has had modification to her AFO with some improvement in her function, but had poor day today. 06/25/21: 180' on 6 min walk test, patient reports left knee feeling wonky, and right UE still painful due to surgery' having stitches out today. Also c/o lack of caregiver recently has limited her walking, no outings. Will try again next session. LTG Duration 09/22/21 Assessment Summary Assessment Patient progress has been limited recently, impacted by lack of caregiver resulting in less outings and practice of walking, difficulty doing her exercises on her own, plus recent removal of cyst from thorax causing pain. Patient expresses frustration with her body and difficulty remembering how to best do her transfers and walking, desires improvement in her function to become more independent butsituation at [facility] has not been condusive to that. Feel she would benefit from further PT to help her address the above goals and do training with new caregiver, help her transition to community-based therapeutic exercises. Physical Therapy Plan Frequency and Duration Frequency of Treatment 2x/Week Duration of Treatment 12 wks Plan of Care Start Date 06/25/21 Plan of Care End Date 09/22/21 Therapeutic Interventions Therapeutic Interventions Aquatic Therapy,Balance Training,Gait Training,Home Exercise Program,Neuromuscular Re-education,Orthotic/ Prosthetic Management,Patient/ Caregiver Education,Self-Care/ Home Management,Taping, Therapeutic Activities, Therapeutic Exercises Modalities Cold Pack/Ice Massage,Hot Packs Next Visit Focus/Plan Next Note Type Treatment Note Next Visit Plan Gait training without assistive device to facilitate increased weight shift to her left, decrease over-reliance on right UE. Gait training on uneven surfaces and with head turns for scanning in community, balance training. Further discussion of options for community-based activity and exercise. Floor transfer, 6 min walk test frequently.
--- NOTE | 2021-06-30 10:58 | PT.OTN ---
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 CVA caused weakness on the left side of her body, gait and balance difficulty, seizures. PT-OP-C Subjective Start: 05/28/19 08:11 Freq: Status: Active Protocol: Document 06/30/21 08:53 AW (Rec: 06/30/21 10:57 AW [id number]) OP-PT Subjective Patient Comments Patient Comments Pt states her left foot is cramping today, doesn't feel great about walking. Has new caregiver, Allie, who attends with her today. PT-OP-D Balance Start: 05/28/19 08:11 Freq: Status: Active Protocol: Document 05/29/19 14:30 SAK (Rec: 05/30/19 14:24 SAK [id number]) OP-PT Balance Assessment Sitting Balance Static Sitting Balance Ability Good Dynamic Sitting Balance Ability Fair Standing Balance Static Standing Balance Ability Good Dynamic Standing Balance Ability Fair Device Used psychiatric right Tinetti Balance Assessment Sitting Balance Sitting Balance Steady, safe Arising from Chair Attempts to Arise Able, requires >1 attempt Standing Balance Immediate Standing Balance Steady with support Standing Balance Steady, wide stance Nudged Response Begins to fall Standing with Eyes Closed Unsteady Turning Step Pattern Turning 360 Degrees Discontinuous steps Stability Turning 360 Degrees Unsteady, grabs/staggers Sitting Down Sitting Down Uses arms or unsteady Gait and Step Initiation of Gait Hesitancy, mult. attempts Right Foot Step Length Does not pass stance ft. Right Foot Step Height Does not clear floor Left Foot Step Length Does not pass stance foot Left Foot Step Height Does not clear floor Step Description Step Symmetry Step length not equal Gait Description Path Description Mild/moderate deviation Trunk Description Marked sway or uses aide Walking Stance Heels apart Scoring and Interpretation Tinetti Composite Score (points) 6 Interpretation of Scores High risk for falls(< 19) Herrera Fall Scale Copyright Permission PT-OP-E Functional Tests Start: 05/28/19 08:11 Freq: Status: Active Protocol: Document 05/14/21 10:50 AMH (Rec: 05/14/21 11:08 AMH [id number]) Functional Tests 6 Minute Walk Test Distance 169ft Device Used spc, TB wrapping Comments pt has headache today and feels that may have slowed her down. Timed Up and Go (TUG) Score 107 seconds PT-OP-G Mobility & Gait Start: 05/28/19 08:11 Freq: Status: Active Protocol: Document 05/26/20 11:15 SAK (Rec: 05/26/20 17:04 [facility] [id number]) OP Mobility Evaluation Bed Mobility Rolling min assist to right CGA to left Supine to and from Sit min assist to right CGA to left Transfers Sit to Stand CGA to min assist without UE use Bed to Chair Transfers requires use of right UE but able to do with SBA Floor Transfers unable PT-OP-H Neuro Start: 05/28/19 08:11 Freq: Status: Active Protocol: Document 05/29/19 14:30 SAK (Rec: 05/30/19 14:24 [facility] [id number]) Sensation Evaluation Gross Sensation Gross Sensation Left UE Impaired,Left LE Impaired Sensation Description Paresthesia,Numbness Coordination Evaluation Lower Extremity Tests Left Alternate Heel to Knee; Heel to Toe Test Moderate Impairment Heel on Boles Test Moderate Impairment Foot Tapping Test Moderate Impairment PT-OP-K Range of Motion Start: 05/28/19 08:11 Freq: Status: Active Protocol: Document 05/26/20 11:15 SAK (Rec: 05/26/20 17:04 SAK [id number]) Hip Goniometric Range of Motion Hip jake Hip ROM WFL Yes Comments actively right LE, passively left LE Knee Goniometric Range of Motion Knee jake Knee ROM WFL Yes Ankle and Foot Goniometric Range of Motion Ankle and Foot Left Passive Ankle/Foot ROM WFL No Left Active Ankle/Foot ROM WFL No PT-OP-M Strength Start: 05/28/19 08:11 Freq: Status: Active Protocol: Document 05/26/20 11:15 SAK (Rec: 05/26/20 17:04 SAK [id number]) Hip Strength Hip Manual Muscle Testing Left Flexion (L2) 3- Fair- Extension (S1) 2 Poor Abduction 2+ Poor+ External Rotation 3- Fair- Internal Rotation 3+ Fair+ Right Flexion (L2) 4 Good Extension (S1) 4- Good- Abduction 4 Good External Rotation 3+ Fair+ Internal Rotation 4- Good- PT-OP-Q Treatments Start: 05/28/19 08:11 Freq: Status: Active Protocol: Document 06/30/21 08:53 AW (Rec: 06/30/21 10:57 AW [id number]) Cardio Equipment Recumbent Stepper (Sci-Fit) Duration (Minutes) 10 Resistance 2 Seat Position 7 Other 0.99 miles; pt feels more fatigued today Therapeutic Exercises Standing Exercises sit stands w/ AFO donned Standing Exercise Name no UEs Equipment Used 18 chair, RUE as needed Reps/Minutes x10 Comments verbal and manual cues for LLE positioning, weightbearing Gait Training Gait Activity 6 min walk test Description w/ wrapping clockwise LLE forfoot to anterior gait belt Device Used hurrycane Level of Assistance SBA- CGA Surface firm Distance/Duration 120 ft Treatment Focus equal stance time, Comments cued small step LLE, bigger step RLE: 2 pt gait and LLE awareness of adduction to decrease L hip ER. Improved knee stability initially but hyperextension increased past ~75 feet forward/back steps Device Used near rail, PRN if needed Level of Assistance no AD, CG to min assist Surface firm w/ AFO Distance/Duration 20 ft x2 laps Treatment Focus increase weight bearing LLE Comments nervous back stepping but able to complete CGA, cued as needed for L quad facilitation back stepping. 1 Description level surface Device Used hyrrycane, AFO and TB wrapping Level of Assistance SBA, cues Surface indoor carpet, firm Distance/Duration in and out of clinic Treatment Focus L hip IR and decrease L knee hyperextension, pacing Comments cues for increased weight shift to left. good pacing but no metronome Self-Care/Home Management Treatment Education Patient Education Body Mechanics,Joint Protection,Safety Caregiver Education Provided brief education for caregiver passive stretch left foot and leg in sitting. Plan to continue caregiver education over next few sessions. PT-OP-R Modalities Start: 05/28/19 08:11 Freq: Status: Active Protocol: Document 12/29/20 10:30 SP (Rec: 12/29/20 11:44 SP [id number]) Electric Stimulation Electric Stimulation Functional Electric Stimulation Body Location L hand/ forearm extensors Duration (Minutes) 2 Patient Position Sitting Comments NMES- education on placement of pad for muscular feedback extension based- check self placement understanding. PT-OP-T Assessment and Plan Start: 05/28/19 08:11 Freq: Status: Active Protocol: Document 06/30/21 08:53 AW (Rec: 06/30/21 10:57 AW [id number]) Physical Therapy Assessment Goals Five Impairment gait speed not adequate for safe community ambulation Construction Grip Goal (LTG) Patient able to ambulate 300' in 6 min. TUG score no greater than 30 sec 06/02/20: 134' 08/28/20: 144', likely not as high due to new shoes and wearing old AFO because fits better in new shoes. Requires level 4 theraband for derotation of left LE into more neutral position for gait . 09/19/20: 146 ft 6 min w/ QC and Tb wrapping to LLE. 11/13/20: 153 ft CG w/ SPC 2>3 pt gait w/out metronome w/ reported L glut/ lateral leg burn pain, 2 step brief stand breaks. 11/24/20: progressing 173.7 ft using SPC, predominently 2 pt gait. TUG score 59 sec using SP 01/27/21: TUG 55 sec. , 6 min walk test 199.9 ft with SPC 03/19/21: 6 min walk test 165' , TUG 1:20. Continue with use of theraband for derotation of excess ER left LE with gait . 04/16/21: 6MWT 190 ft w/ SPC and TB wrapping assist hip IR. 04/23/21: 6MWT 181 ftw/ SPC and TB wrapping 06/25/21: 6MWT 180 ft with SPC and TB wrapping. TU sec LTG Duration 09/22/21 Four Impairment requires assistance with bed mobility and transfers Short Term Goal (STG) Patient will be able to perform all bed mobility independently to improve her functional independence. 10/31/19: good goal progress 06/02/20:inconsistent, but min assist most times 11/24/20: Met goal: pt is independent in supine>sit. STG Duration goal met ( independent 11/24/20 ) Residential Goal (LTG) Patient will be able to perform a floor transfer with SB to min assist. 5x sit to stand score in no more than 15 sec as measure of functional strength for transfers 10/31/19: max assist today 01/02/20: has not been willing to try since 10/31/19 06/02/21: does not feel strong enough to try yet. 06/25/21: 08/28/20: max assistance required 12/02/20: remains at max assist , not recently willing to attempt floor transfer. 5x sit to stand score 26 seconds 01/27/21: not tried recently. 03/24/21: 5x sit to stand 25 sec. No floor transfer today 06/25/21: 5x sit to stand 24 sec. Patient didn't feel up to doing floor transfer, remains a concern LTG Duration 09/22/21 Three Impairment weakness left UE and LE s/p CVA Residential Goal (LTG) Improve functional strength in left LE, as evidenced by ability to move from sit > < stand without use of UE's. 10/31/19: OT starts tomorrow. Good progress with sit to stand, though mostly using right UE and LE 01/02/20: Improving ability to perform, able to increase weight-bearing through left LE with cues, but still some use of right UE 05/26/20: With manual and visual feedback patient able to transfer sit to stand with only CG A. 08/28/20: inconsistent ability to move sit to stand without using UE's, but able to do transfer without physical assistance 11/24/20: Goal Met 01/27/21: more difficulty recently, having to use hands. Goal reactivated. 03/24/21: difficulty motor planning and performing sit to stand today. 06/25/21: patient becomes frustrated with sit to stand transfers as she expresses she feels she has a hard time remembering how to do it, has to use right UE LTG Duration 09/22/21 Two Impairment balance dysfunction with high risk for falls Residential Goal (LTG) Improve balance as evidenced by improvement in Tinnetti balance and gait score to low fall risk range to improve safety in the home and community. 10/31/19: remains high risk for falls 01/02/20: some improvement but still in high risk category 05/26/20: Tinetti score in high risk category 08/28/20: moderate risk for falls 12/02/20: remains in moderate risk for falls. 01/27/21: moderate risk for falls 03/24/21: no significant change noted today but again having poor day. 06/25/21: Moderate risk for falls, though no reported falls over past few months. LTG Duration 09/22/21 One Impairment requires armaan-walker for gait, limited to household gait Residential Goal (LTG) Patient able to ambulate with least restrictive device for functional community distances to improve her functional independence and quality of life. 10/30/19: no progress due to Covid 19. 11/02/19: able to ambulate with quad cane but with very slow speed, household distances, very short community distances . 05/26/20: Now able to ambulate with use of single point cane and use of L4 theraband wrapped around left LE to facilitate left LE internal rotation for improved alignment. Patient unable to don the theraband on her own. Gait is for short distances and very slow at 39 ft in 2 min. 08/28/20: has demonstrated improved gait ability, still using theraband for derotation of LE for more neutral position. Able to consistenly use quad cane and is increasing stride length especially with cues. Now able to ascend and descend 4 stairs with min assist using railing. Mod assist on 6 stairs. 12/02/20: Patient ambulating with SPC, mostly household but some community distances, improved gait alignment with use of theraband for improved alignment. Patient not consistently able to ambulate community distances due to pain in her left LE, and lack of neurological control left LE. Patient may benefit from modification to her current AFO or fabrication of new AFO. 173 ft in 6 minutes 01/27/21: using SPC. Limitations due to left foot, knee and hip pain, right wrist pain 6 min walk test improved to 199.9 feet today 03/24/21: slower 6 min walk test today as above. Has had modification to her AFO with some improvement in her function, but had poor day today. 06/25/21: 180' on 6 min walk test, patient reports left knee feeling wonky, and right UE still painful due to surgery' having stitches out today. Also c/o lack of caregiver recently has limited her walking, no outings. Will try again next session. LTG Duration 09/22/21 Assessment Summary Assessment Pt reports increase in depression symptoms recently. PT focuses on pt's abilities and encourages continued outings to improve activity tolerance. Physical Therapy Plan Frequency and Duration Frequency of Treatment 2x/Week Duration of Treatment 12 wks Plan of Care Start Date 06/25/21 Plan of Care End Date 09/22/21 Therapeutic Interventions Therapeutic Interventions Aquatic Therapy,Balance Training,Gait Training,Home Exercise Program,Neuromuscular Re-education,Orthotic/ Prosthetic Management,Patient/ Caregiver Education,Self-Care/ Home Management,Taping, Therapeutic Activities, Therapeutic Exercises Modalities Cold Pack/Ice Massage,Hot Packs Next Visit Focus/Plan Next Note Type Treatment Note Next Visit Plan Caregiver education passive stretches to address hamstrings, calf tightness. Gait training without assistive device to facilitate increased weight shift to her left, decrease over-reliance on right UE. Gait training on uneven surfaces and with head turns for scanning in community, balance training. Further discussion of options for community-based activity and exercise. Floor transfer, 6 min walk test frequently.
--- NOTE | 2021-07-02 14:17 | PT.OTN ---
Current Diagnoses Hemiplegia, unspecified affecting unspecified side (07/02/21) Difficulty in walking, not elsewhere classified (07/02/21) Weakness (07/02/21) History of falling (07/02/21) Physical Therapy Treatment Note PT-OP-A Visit Information Start: 05/28/19 08:11 Freq: Status: Active Protocol: Document 07/02/21 10:02 [facility]AK (Rec: 07/02/21 10:36 [facility] [id number]) Out-Patient Physical Therapy Visit Information Visit Information Visit Type Treatment Note Visit Start Time 09:52 Visit Stop Time 10:40 Total Visit Minutes 48 Visit Number 120 Number of FINISH OFF OPERATOR Visits 0 Precautions Precautions Seizure disorder memory dysfunction PT-OP-B Current Condition Start: 05/28/19 08:11 Freq: Status: Active Protocol: Document 06/04/20 11:15 SAK (Rec: 06/05/20 16:34 [facility] [id number]) Current Condition History of Current Condition Onset Date 2014 Current Complaints weakness, requires assistance with all mobility and household tasks History of Current Condition Reports that she suffered a stroke in 2014 after surgery for brain aneurysm. CVA caused weakness on the left side of her body, gait and balance difficulty, seizures. PT-OP-C Subjective Start: 05/28/19 08:11 Freq: Status: Active Protocol: Document 07/02/21 10:02 SAK (Rec: 07/02/21 10:36 [facility] [id number]) OP-PT Subjective Patient Comments Patient Comments Feels stronger today. Ready to push. Caregiver Allie here with patient. PT-OP-D Balance Start: 05/28/19 08:11 Freq: Status: Active Protocol: Document 05/29/19 14:30 SAK (Rec: 05/30/19 14:24 [facility] [id number]) OP-PT Balance Assessment Sitting Balance Static Sitting Balance Ability Good Dynamic Sitting Balance Ability Fair Standing Balance Static Standing Balance Ability Good Dynamic Standing Balance Ability Fair Device Used [facility] right Tinetti Balance Assessment Sitting Balance Sitting Balance Steady, safe Arising from Chair Attempts to Arise Able, requires >1 attempt Standing Balance Immediate Standing Balance Steady with support Standing Balance Steady, wide stance Nudged Response Begins to fall Standing with Eyes Closed Unsteady Turning Step Pattern Turning 360 Degrees Discontinuous steps Stability Turning 360 Degrees Unsteady, grabs/staggers Sitting Down Sitting Down Uses arms or unsteady Gait and Step Initiation of Gait Hesitancy, mult. attempts Right Foot Step Length Does not pass stance ft. Right Foot Step Height Does not clear floor Left Foot Step Length Does not pass stance foot Left Foot Step Height Does not clear floor Step Description Step Symmetry Step length not equal Gait Description Path Description Mild/moderate deviation Trunk Description Marked sway or uses aide Walking Stance Heels apart Scoring and Interpretation Tinetti Composite Score (points) 6 Interpretation of Scores High risk for falls(< 19) Herrera Fall Scale Copyright Permission PT-OP-E Functional Tests Start: 05/28/19 08:11 Freq: Status: Active Protocol: Document 05/14/21 10:50 [facility] (Rec: 05/14/21 11:08 [facility] [id number]) Functional Tests 6 Minute Walk Test Distance 169ft Device Used spc, TB wrapping Comments pt has headache today and feels that may have slowed her down. Timed Up and Go (TUG) Score 107 seconds PT-OP-G Mobility & Gait Start: 05/28/19 08:11 Freq: Status: Active Protocol: Document 05/26/20 11:15 SAK (Rec: 05/26/20 17:04 [facility] [id number]) OP Mobility Evaluation Bed Mobility Rolling min assist to right CGA to left Supine to and from Sit min assist to right CGA to left Transfers Sit to Stand CGA to min assist without UE use Bed to Chair Transfers requires use of right UE but able to do with SBA Floor Transfers unable PT-OP-H Neuro Start: 05/28/19 08:11 Freq: Status: Active Protocol: Document 05/29/19 14:30 SAK (Rec: 05/30/19 14:24 [facility] [id number]) Sensation Evaluation Gross Sensation Gross Sensation Left UE Impaired,Left LE Impaired Sensation Description Paresthesia,Numbness Coordination Evaluation Lower Extremity Tests Left Alternate Heel to Knee; Heel to Toe Test Moderate Impairment Heel on Boles Test Moderate Impairment Foot Tapping Test Moderate Impairment PT-OP-K Range of Motion Start: 05/28/19 08:11 Freq: Status: Active Protocol: Document 05/26/20 11:15 SAK (Rec: 05/26/20 17:04 [facility] [id number]) Hip Goniometric Range of Motion Hip jake Hip ROM WFL Yes Comments actively right LE, passively left LE Knee Goniometric Range of Motion Knee jake Knee ROM WFL Yes Ankle and Foot Goniometric Range of Motion Ankle and Foot Left Passive Ankle/Foot ROM WFL No Left Active Ankle/Foot ROM WFL No PT-OP-M Strength Start: 05/28/19 08:11 Freq: Status: Active Protocol: Document 05/26/20 11:15 [facility] (Rec: 05/26/20 17:04 [facility] [id number]) Hip Strength Hip Manual Muscle Testing Left Flexion (L2) 3- Fair- Extension (S1) 2 Poor Abduction 2+ Poor+ External Rotation 3- Fair- Internal Rotation 3+ Fair+ Right Flexion (L2) 4 Good Extension (S1) 4- Good- Abduction 4 Good External Rotation 3+ Fair+ Internal Rotation 4- Good- PT-OP-Q Treatments Start: 05/28/19 08:11 Freq: Status: Active Protocol: Document 07/02/21 10:02 [facility] (Rec: 07/02/21 10:36 [facility] [id number]) Therapeutic Exercises Supine Exercises SKTC Reps/Minutes 2x30 piriformis stretch Reps/Minutes 2x Comments passive LTR Supine Exercise Name R> L states most beneficial Side bilateral Reps/Minutes 20 sec x2 Comments cued feet together DKFO tolerant range gastroc stretch Supine Exercise Name manual stretch calf Side left Equipment Used in supine on table Comments education of caregiver hamstring stretch Supine Exercise Name AAROM w/ caregiver education and support Side left Reps/Minutes 2x30 sec Comments caregiver education bridges Supine Exercise Name caregiver education Reps/Minutes 7x Comments Mod A for maintaining L knee mid alignment, issued Dycem for use at home Gait Training Gait Activity parallel bars Description forward, back, side Device Used //bar mostly no UE support, occasional light tough support , AFO Surface firm Distance/Duration 2x each direction Treatment Focus neutral alignment, weight- shift over LLE required verbal sequencing Comments Pt. improved weight shifting over LLE with cuing for sequencing, use of mirror for visual feedback. No theraband wrap on LE forward/back steps Device Used near rail, PRN if needed Level of Assistance no AD, CG to min assist Surface firm w/ AFO Distance/Duration 20 ft x2 laps Treatment Focus increase weight bearing LLE Comments nervous back stepping but able to complete CGA, cued as needed for L quad facilitation back stepping. 1 Description level surface Device Used AFO Level of Assistance CGA, cues Surface indoor carpet, firm Distance/Duration 80ft, 72 ft, 57 ft, 40 Treatment Focus gait without device Comments cues for increased weight shift to left. good pacing but no metronome Self-Care/Home Management Treatment Education Patient Education Body Mechanics,Joint Protection,Safety PT-OP-R Modalities Start: 05/28/19 08:11 Freq: Status: Active Protocol: Document 12/29/20 10:30 SP (Rec: 12/29/20 11:44 SP [id number]) Electric Stimulation Electric Stimulation Functional Electric Stimulation Body Location L hand/ forearm extensors Duration (Minutes) 2 Patient Position Sitting Comments NMES- education on placement of pad for muscular feedback extension based- check self placement understanding. PT-OP-T Assessment and Plan Start: 05/28/19 08:11 Freq: Status: Active Protocol: Document 07/02/21 10:02 SAK (Rec: 07/02/21 10:36 SAK [id number]) Physical Therapy Assessment Goals Five Impairment gait speed not adequate for safe community ambulation Program Planner Goal (LTG) Patient able to ambulate 300' in 6 min. TUG score no greater than 30 sec 06/02/20: 134' 08/28/20: 144', likely not as high due to new shoes and wearing old AFO because fits better in new shoes. Requires level 4 theraband for derotation of left LE into more neutral position for gait . 09/19/20: 146 ft 6 min w/ QC and Tb wrapping to LLE. 11/13/20: 153 ft CG w/ SPC 2>3 pt gait w/out metronome w/ reported L glut/ lateral leg burn pain, 2 step brief stand breaks. 11/24/20: progressing 173.7 ft using SPC, predominently 2 pt gait. TUG score 59 sec using SP 01/27/21: TUG 55 sec. , 6 min walk test 199.9 ft with SPC 03/19/21: 6 min walk test 165' , TUG 1:20. Continue with use of theraband for derotation of excess ER left LE with gait . 04/16/21: 6MWT 190 ft w/ SPC and TB wrapping assist hip IR. 04/23/21: 6MWT 181 ftw/ SPC and TB wrapping 06/25/21: 6MWT 180 ft with SPC and TB wrapping. TU sec LTG Duration 09/22/21 Four Impairment requires assistance with bed mobility and transfers Short Term Goal (STG) Patient will be able to perform all bed mobility independently to improve her functional independence. 10/31/19: good goal progress 06/02/20:inconsistent, but min assist most times 11/24/20: Met goal: pt is independent in supine>sit. STG Duration goal met ( independent 11/24/20 ) Program Planner Goal (LTG) Patient will be able to perform a floor transfer with SB to min assist. 5x sit to stand score in no more than 15 sec as measure of functional strength for transfers 10/31/19: max assist today 01/02/20: has not been willing to try since 10/31/19 06/02/21: does not feel strong enough to try yet. 06/25/21: 08/28/20: max assistance required 12/02/20: remains at max assist , not recently willing to attempt floor transfer. 5x sit to stand score 26 seconds 01/27/21: not tried recently. 03/24/21: 5x sit to stand 25 sec. No floor transfer today 06/25/21: 5x sit to stand 24 sec. Patient didn't feel up to doing floor transfer, remains a concern LTG Duration 09/22/21 Three Impairment weakness left UE and LE s/p CVA Long-Term Goal (LTG) Improve functional strength in left LE, as evidenced by ability to move from sit > < stand without use of UE's. 10/31/19: OT starts tomorrow. Good progress with sit to stand, though mostly using right UE and LE 01/02/20: Improving ability to perform, able to increase weight-bearing through left LE with cues, but still some use of right UE 05/26/20: With manual and visual feedback patient able to transfer sit to stand with only CG A. 08/28/20: inconsistent ability to move sit to stand without using UE's, but able to do transfer without physical assistance 11/24/20: Goal Met 01/27/21: more difficulty recently, having to use hands. Goal reactivated. 03/24/21: difficulty motor planning and performing sit to stand today. 06/25/21: patient becomes frustrated with sit to stand transfers as she expresses she feels she has a hard time remembering how to do it, has to use right UE LTG Duration 09/22/21 Two Impairment balance dysfunction with high risk for falls Long-Term Goal (LTG) Improve balance as evidenced by improvement in Tinnetti balance and gait score to low fall risk range to improve safety in the home and community. 10/31/19: remains high risk for falls 01/02/20: some improvement but still in high risk category 05/26/20: Tinetti score in high risk category 08/28/20: moderate risk for falls 12/02/20: remains in moderate risk for falls. 01/27/21: moderate risk for falls 03/24/21: no significant change noted today but again having poor day. 06/25/21: Moderate risk for falls, though no reported falls over past few months. LTG Duration 09/22/21 One Impairment requires armaan-walker for gait, limited to household gait Long-Term Goal (LTG) Patient able to ambulate with least restrictive device for functional community distances to improve her functional independence and quality of life. 10/30/19: no progress due to Covid 19. 11/02/19: able to ambulate with quad cane but with very slow speed, household distances, very short community distances . 05/26/20: Now able to ambulate with use of single point cane and use of L4 theraband wrapped around left LE to facilitate left LE internal rotation for improved alignment. Patient unable to don the theraband on her own. Gait is for short distances and very slow at 39 ft in 2 min. 08/28/20: has demonstrated improved gait ability, still using theraband for derotation of LE for more neutral position. Able to consistenly use quad cane and is increasing stride length especially with cues. Now able to ascend and descend 4 stairs with min assist using railing. Mod assist on 6 stairs. 12/02/20: Patient ambulating with SPC, mostly household but some community distances, improved gait alignment with use of theraband for improved alignment. Patient not consistently able to ambulate community distances due to pain in her left LE, and lack of neurological control left LE. Patient may benefit from modification to her current AFO or fabrication of new AFO. 173 ft in 6 minutes 01/27/21: using SPC. Limitations due to left foot, knee and hip pain, right wrist pain 6 min walk test improved to 199.9 feet today 03/24/21: slower 6 min walk test today as above. Has had modification to her AFO with some improvement in her function, but had poor day today. 06/25/21: 180' on 6 min walk test, patient reports left knee feeling wonky, and right UE still painful due to surgery' having stitches out today. Also c/o lack of caregiver recently has limited her walking, no outings. Will try again next session. LTG Duration 09/22/21 Assessment Summary Assessment Patient had excellent day in PT today, able to ambulate without device with CGA and cues 80 ft, 72 ft, 57 ft, 40 ft without theraband derotation wrapping. Better weight shift to left and LE alignment and decreased hyperextension with patient reporting less feeling that it was going to give way. Video taken last bout of gait training to show to her parents. Amazing progress today. Physical Therapy Plan Frequency and Duration Frequency of Treatment 2x/Week Duration of Treatment 12 wks Plan of Care Start Date 06/25/21 Plan of Care End Date 09/22/21 Therapeutic Interventions Therapeutic Interventions Aquatic Therapy,Balance Training,Gait Training,Home Exercise Program,Neuromuscular Re-education,Orthotic/ Prosthetic Management,Patient/ Caregiver Education,Self-Care/ Home Management,Taping, Therapeutic Activities, Therapeutic Exercises Modalities Cold Pack/Ice Massage,Hot Packs Next Visit Focus/Plan Next Note Type Treatment Note Next Visit Plan Continue gait training without device as tolerated, add uneven surfaces. Floor transfer.
--- NOTE | 2021-07-07 12:19 | PT.OTN ---
Current Diagnoses Hemiplegia, unspecified affecting unspecified side (07/07/21) Difficulty in walking, not elsewhere classified (07/07/21) Weakness (07/07/21) History of falling (07/07/21) Physical Therapy Treatment Note PT-OP-A Visit Information Start: 05/28/19 08:11 Freq: Status: Active Protocol: Document 07/07/21 08:56 AW (Rec: 07/07/21 11:17 AW [id number]) Out-Patient Physical Therapy Visit Information Visit Information Visit Type Treatment Note Visit Start Time 10:33 Visit Stop Time 11:15 Total Visit Minutes 42 Visit Number 121 Number of RN ACCESS Visits 0 Precautions Precautions Seizure disorder memory dysfunction PT-OP-B Current Condition Start: 05/28/19 08:11 Freq: Status: Active Protocol: Document 06/04/20 11:15 SAK (Rec: 06/05/20 16:34 SAK [id number]) Current Condition History of Current Condition Onset Date 2014 Current Complaints weakness, requires assistance with all mobility and household tasks History of Current Condition Reports that she suffered a stroke in 2014 after surgery for brain aneurysm. CVA caused weakness on the left side of her body, gait and balance difficulty, seizures. PT-OP-C Subjective Start: 05/28/19 08:11 Freq: Status: Active Protocol: Document 07/07/21 08:56 AW (Rec: 07/07/21 11:17 AW [id number]) OP-PT Subjective Patient Comments Patient Comments Adelaide used the NuStep at the gym yesterday and felt she was poorly able to keep left hip rotated inward without assist. PT-OP-D Balance Start: 05/28/19 08:11 Freq: Status: Active Protocol: Document 05/29/19 14:30 SAK (Rec: 05/30/19 14:24 SAK [id number]) OP-PT Balance Assessment Sitting Balance Static Sitting Balance Ability Good Dynamic Sitting Balance Ability Fair Standing Balance Static Standing Balance Ability Good Dynamic Standing Balance Ability Fair Device Used hemiwalker right Tinetti Balance Assessment Sitting Balance Sitting Balance Steady, safe Arising from Chair Attempts to Arise Able, requires >1 attempt Standing Balance Immediate Standing Balance Steady with support Standing Balance Steady, wide stance Nudged Response Begins to fall Standing with Eyes Closed Unsteady Turning Step Pattern Turning 360 Degrees Discontinuous steps Stability Turning 360 Degrees Unsteady, grabs/staggers Sitting Down Sitting Down Uses arms or unsteady Gait and Step Initiation of Gait Hesitancy, mult. attempts Right Foot Step Length Does not pass stance ft. Right Foot Step Height Does not clear floor Left Foot Step Length Does not pass stance foot Left Foot Step Height Does not clear floor Step Description Step Symmetry Step length not equal Gait Description Path Description Mild/moderate deviation Trunk Description Marked sway or uses aide Walking Stance Heels apart Scoring and Interpretation Tinetti Composite Score (points) 6 Interpretation of Scores High risk for falls(< 19) Herrera Fall Scale Copyright Permission PT-OP-E Functional Tests Start: 05/28/19 08:11 Freq: Status: Active Protocol: Document 05/14/21 10:50 [facility] (Rec: 05/14/21 11:08 [facility] [id number]) Functional Tests 6 Minute Walk Test Distance 169ft Device Used spc, TB wrapping Comments pt has headache today and feels that may have slowed her down. Timed Up and Go (TUG) Score 107 seconds PT-OP-G Mobility & Gait Start: 05/28/19 08:11 Freq: Status: Active Protocol: Document 05/26/20 11:15 [facility] (Rec: 05/26/20 17:04 [facility] [id number]) OP Mobility Evaluation Bed Mobility Rolling min assist to right CGA to left Supine to and from Sit min assist to right CGA to left Transfers Sit to Stand CGA to min assist without UE use Bed to Chair Transfers requires use of right UE but able to do with SBA Floor Transfers unable PT-OP-H Neuro Start: 05/28/19 08:11 Freq: Status: Active Protocol: Document 05/29/19 14:30 SAK (Rec: 05/30/19 14:24 [facility] [id number]) Sensation Evaluation Gross Sensation Gross Sensation Left UE Impaired,Left LE Impaired Sensation Description Paresthesia,Numbness Coordination Evaluation Lower Extremity Tests Left Alternate Heel to Knee; Heel to Toe Test Moderate Impairment Heel on Boles Test Moderate Impairment Foot Tapping Test Moderate Impairment PT-OP-K Range of Motion Start: 05/28/19 08:11 Freq: Status: Active Protocol: Document 05/26/20 11:15 SAK (Rec: 05/26/20 17:04 [facility] [id number]) Hip Goniometric Range of Motion Hip jake Hip ROM WFL Yes Comments actively right LE, passively left LE Knee Goniometric Range of Motion Knee jake Knee ROM WFL Yes Ankle and Foot Goniometric Range of Motion Ankle and Foot Left Passive Ankle/Foot ROM WFL No Left Active Ankle/Foot ROM WFL No PT-OP-M Strength Start: 05/28/19 08:11 Freq: Status: Active Protocol: Document 05/26/20 11:15 SAK (Rec: 05/26/20 17:04 SAK [id number]) Hip Strength Hip Manual Muscle Testing Left Flexion (L2) 3- Fair- Extension (S1) 2 Poor Abduction 2+ Poor+ External Rotation 3- Fair- Internal Rotation 3+ Fair+ Right Flexion (L2) 4 Good Extension (S1) 4- Good- Abduction 4 Good External Rotation 3+ Fair+ Internal Rotation 4- Good- PT-OP-Q Treatments Start: 05/28/19 08:11 Freq: Status: Active Protocol: Document 07/07/21 08:56 AW (Rec: 07/07/21 11:17 AW [id number]) Cardio Equipment Recumbent Stepper (Sci-Fit) Duration (Minutes) 10 Resistance 2.5 Seat Position 7 Other assist for IR left hip Gait Training Gait Activity parallel bars Description forward, back, side Device Used //bar mostly no UE support, occasional light touch support , AFO Surface firm Distance/Duration 3x each direction Treatment Focus neutral alignment, weight- shift over LLE required verbal sequencing Comments No theraband wrap on LE. Used mirror for visual feedback fwd /bwd and pt was able to improve LLE weight shift. forward/back steps Device Used near rail, PRN if needed Level of Assistance no AD, CG to min assist Surface firm w/ AFO Distance/Duration 20 ft x2 laps Treatment Focus increase weight bearing LLE Comments decreased LLE step length walking backward, required cues for step length and CGA 1 Description level surface Device Used AFO Level of Assistance CGA, cues Surface indoor carpet, firm Distance/Duration 60, 55, and 42 feet Treatment Focus gait without device Comments Cues for increased weight shift to left. good pacing but no metronome. Reports increased left knee instability but responds well to cues for soft knee Self-Care/Home Management Treatment Education Patient Education Body Mechanics,Joint Protection,Safety PT-OP-R Modalities Start: 05/28/19 08:11 Freq: Status: Active Protocol: Document 12/29/20 10:30 SP (Rec: 12/29/20 11:44 SP [id number]) Electric Stimulation Electric Stimulation Functional Electric Stimulation Body Location L hand/ forearm extensors Duration (Minutes) 2 Patient Position Sitting Comments NMES- education on placement of pad for muscular feedback extension based- check self placement understanding. PT-OP-T Assessment and Plan Start: 05/28/19 08:11 Freq: Status: Active Protocol: Document 07/07/21 08:56 AW (Rec: 07/07/21 11:17 AW [id number]) Physical Therapy Assessment Goals Five Impairment gait speed not adequate for safe community ambulation [employer] Goal (LTG) Patient able to ambulate 300' in 6 min. TUG score no greater than 30 sec 06/02/20: 134' 08/28/20: 144', likely not as high due to new shoes and wearing old AFO because fits better in new shoes. Requires level 4 theraband for derotation of left LE into more neutral position for gait . 09/19/20: 146 ft 6 min w/ QC and Tb wrapping to LLE. 11/13/20: 153 ft CG w/ SPC 2>3 pt gait w/out metronome w/ reported L glut/ lateral leg burn pain, 2 step brief stand breaks. 11/24/20: progressing 173.7 ft using SPC, predominently 2 pt gait. TUG score 59 sec using SP 01/27/21: TUG 55 sec. , 6 min walk test 199.9 ft with SPC 03/19/21: 6 min walk test 165' , TUG 1:20. Continue with use of theraband for derotation of excess ER left LE with gait . 04/16/21: 6MWT 190 ft w/ SPC and TB wrapping assist hip IR. 04/23/21: 6MWT 181 ftw/ SPC and TB wrapping 06/25/21: 6MWT 180 ft with SPC and TB wrapping. TU sec LTG Duration 09/22/21 Four Impairment requires assistance with bed mobility and transfers Short Term Goal (STG) Patient will be able to perform all bed mobility independently to improve her functional independence. 10/31/19: good goal progress 06/02/20:inconsistent, but min assist most times 11/24/20: Met goal: pt is independent in supine>sit. STG Duration goal met ( independent 11/24/20 ) Alf Goal (LTG) Patient will be able to perform a floor transfer with SB to min assist. 5x sit to stand score in no more than 15 sec as measure of functional strength for transfers 10/31/19: max assist today 01/02/20: has not been willing to try since 10/31/19 06/02/21: does not feel strong enough to try yet. 06/25/21: 08/28/20: max assistance required 12/02/20: remains at max assist , not recently willing to attempt floor transfer. 5x sit to stand score 26 seconds 01/27/21: not tried recently. 03/24/21: 5x sit to stand 25 sec. No floor transfer today 06/25/21: 5x sit to stand 24 sec. Patient didn't feel up to doing floor transfer, remains a concern LTG Duration 09/22/21 Three Impairment weakness left UE and LE s/p CVA Alf Goal (LTG) Improve functional strength in left LE, as evidenced by ability to move from sit > < stand without use of UE's. 10/31/19: OT starts tomorrow. Good progress with sit to stand, though mostly using right UE and LE 01/02/20: Improving ability to perform, able to increase weight-bearing through left LE with cues, but still some use of right UE 05/26/20: With manual and visual feedback patient able to transfer sit to stand with only CG A. 08/28/20: inconsistent ability to move sit to stand without using UE's, but able to do transfer without physical assistance 11/24/20: Goal Met 01/27/21: more difficulty recently, having to use hands. Goal reactivated. 03/24/21: difficulty motor planning and performing sit to stand today. 06/25/21: patient becomes frustrated with sit to stand transfers as she expresses she feels she has a hard time remembering how to do it, has to use right UE LTG Duration 09/22/21 Two Impairment balance dysfunction with high risk for falls Alf Goal (LTG) Improve balance as evidenced by improvement in Tinnetti balance and gait score to low fall risk range to improve safety in the home and community. 10/31/19: remains high risk for falls 01/02/20: some improvement but still in high risk category 05/26/20: Tinetti score in high risk category 08/28/20: moderate risk for falls 12/02/20: remains in moderate risk for falls. 01/27/21: moderate risk for falls 03/24/21: no significant change noted today but again having poor day. 06/25/21: Moderate risk for falls, though no reported falls over past few months. LTG Duration 09/22/21 One Impairment requires armaan-walker for gait, limited to household gait [employer] Goal (LTG) Patient able to ambulate with least restrictive device for functional community distances to improve her functional independence and quality of life. 10/30/19: no progress due to Covid 19. 11/02/19: able to ambulate with quad cane but with very slow speed, household distances, very short community distances . 05/26/20: Now able to ambulate with use of single point cane and use of L4 theraband wrapped around left LE to facilitate left LE internal rotation for improved alignment. Patient unable to don the theraband on her own. Gait is for short distances and very slow at 39 ft in 2 min. 08/28/20: has demonstrated improved gait ability, still using theraband for derotation of LE for more neutral position. Able to consistenly use quad cane and is increasing stride length especially with cues. Now able to ascend and descend 4 stairs with min assist using railing. Mod assist on 6 stairs. 12/02/20: Patient ambulating with SPC, mostly household but some community distances, improved gait alignment with use of theraband for improved alignment. Patient not consistently able to ambulate community distances due to pain in her left LE, and lack of neurological control left LE. Patient may benefit from modification to her current AFO or fabrication of new AFO. 173 ft in 6 minutes 01/27/21: using SPC. Limitations due to left foot, knee and hip pain, right wrist pain 6 min walk test improved to 199.9 feet today 03/24/21: slower 6 min walk test today as above. Has had modification to her AFO with some improvement in her function, but had poor day today. 06/25/21: 180' on 6 min walk test, patient reports left knee feeling wonky, and right UE still painful due to surgery' having stitches out today. Also c/o lack of caregiver recently has limited her walking, no outings. Will try again next session. LTG Duration 09/22/21 Assessment Summary Assessment Pt slightly more fatigued today but still motivated to work. She was able to ambulate without device CGA 60, 55, and 42 feet without derotation TB. Pt talks through her strategy out loud and improves LLE alignment as she does. Left knee hyperextension began to increase on final 42 feet. Physical Therapy Plan Frequency and Duration Frequency of Treatment 2x/Week Duration of Treatment 12 wks Plan of Care Start Date 06/25/21 Plan of Care End Date 09/22/21 Therapeutic Interventions Therapeutic Interventions Aquatic Therapy,Balance Training,Gait Training,Home Exercise Program,Neuromuscular Re-education,Orthotic/ Prosthetic Management,Patient/ Caregiver Education,Self-Care/ Home Management,Taping, Therapeutic Activities, Therapeutic Exercises Modalities Cold Pack/Ice Massage,Hot Packs Next Visit Focus/Plan Next Note Type Treatment Note Next Visit Plan Continue gait training without device as tolerated, add uneven surfaces. Floor transfer.
--- NOTE | 2021-07-09 11:40 | PT.OTN ---
Current Diagnoses Hemiplegia, unspecified affecting unspecified side (07/09/21) Difficulty in walking, not elsewhere classified (07/09/21) Weakness (07/09/21) History of falling (07/09/21) Physical Therapy Treatment Note PT-OP-A Visit Information Start: 05/28/19 08:11 Freq: Status: Active Protocol: Document 07/09/21 10:09 SAK (Rec: 07/09/21 10:31 [facility] [id number]) Out-Patient Physical Therapy Visit Information Visit Information Visit Type Treatment Note Visit Start Time 10:05 Visit Stop Time 10:50 Total Visit Minutes 45 Visit Number 122 Precautions Precautions Seizure disorder memory dysfunction PT-OP-B Current Condition Start: 05/28/19 08:11 Freq: Status: Active Protocol: Document 06/04/20 11:15 SAK (Rec: 06/05/20 16:34 [facility] [id number]) Current Condition History of Current Condition Onset Date 2014 Current Complaints weakness, requires assistance with all mobility and household tasks History of Current Condition Reports that she suffered a stroke in 2014 after surgery for brain aneurysm. CVA caused weakness on the left side of her body, gait and balance difficulty, seizures. PT-OP-C Subjective Start: 05/28/19 08:11 Freq: Status: Active Protocol: Document 07/09/21 10:09 SAK (Rec: 07/09/21 10:31 [facility] [id number]) OP-PT Subjective Patient Comments Patient Comments Adelaide tolentino 20min late to PT . Wants to do as much as we can today though reports not feeling well today, feeling pressure to do as well as she did 07/02 PT appointment. States she has been having nightmares about everything PT-OP-D Balance Start: 05/28/19 08:11 Freq: Status: Active Protocol: Document 05/29/19 14:30 [facility]AK (Rec: 05/30/19 14:24 [facility] [id number]) OP-PT Balance Assessment Sitting Balance Static Sitting Balance Ability Good Dynamic Sitting Balance Ability Fair Standing Balance Static Standing Balance Ability Good Dynamic Standing Balance Ability Fair Device Used hemiwalker right Tinetti Balance Assessment Sitting Balance Sitting Balance Steady, safe Arising from Chair Attempts to Arise Able, requires >1 attempt Standing Balance Immediate Standing Balance Steady with support Standing Balance Steady, wide stance Nudged Response Begins to fall Standing with Eyes Closed Unsteady Turning Step Pattern Turning 360 Degrees Discontinuous steps Stability Turning 360 Degrees Unsteady, grabs/staggers Sitting Down Sitting Down Uses arms or unsteady Gait and Step Initiation of Gait Hesitancy, mult. attempts Right Foot Step Length Does not pass stance ft. Right Foot Step Height Does not clear floor Left Foot Step Length Does not pass stance foot Left Foot Step Height Does not clear floor Step Description Step Symmetry Step length not equal Gait Description Path Description Mild/moderate deviation Trunk Description Marked sway or uses aide Walking Stance Heels apart Scoring and Interpretation Tinetti Composite Score (points) 6 Interpretation of Scores High risk for falls(< 19) Herrera Fall Scale Copyright Permission PT-OP-E Functional Tests Start: 05/28/19 08:11 Freq: Status: Active Protocol: Document 05/14/21 10:50 [facility] (Rec: 05/14/21 11:08 [facility] [id number]) Functional Tests 6 Minute Walk Test Distance 169ft Device Used spc, TB wrapping Comments pt has headache today and feels that may have slowed her down. Timed Up and Go (TUG) Score 107 seconds PT-OP-G Mobility & Gait Start: 05/28/19 08:11 Freq: Status: Active Protocol: Document 05/26/20 11:15 [facility]AK (Rec: 05/26/20 17:04 [facility] [id number]) OP Mobility Evaluation Bed Mobility Rolling min assist to right CGA to left Supine to and from Sit min assist to right CGA to left Transfers Sit to Stand CGA to min assist without UE use Bed to Chair Transfers requires use of right UE but able to do with SBA Floor Transfers unable PT-OP-H Neuro Start: 05/28/19 08:11 Freq: Status: Active Protocol: Document 05/29/19 14:30 [facility]AK (Rec: 05/30/19 14:24 [facility] [id number]) Sensation Evaluation Gross Sensation Gross Sensation Left UE Impaired,Left LE Impaired Sensation Description Paresthesia,Numbness Coordination Evaluation Lower Extremity Tests Left Alternate Heel to Knee; Heel to Toe Test Moderate Impairment Heel on Boles Test Moderate Impairment Foot Tapping Test Moderate Impairment PT-OP-K Range of Motion Start: 05/28/19 08:11 Freq: Status: Active Protocol: Document 05/26/20 11:15 [facility]AK (Rec: 05/26/20 17:04 [facility] [id number]) Hip Goniometric Range of Motion Hip jake Hip ROM WFL Yes Comments actively right LE, passively left LE Knee Goniometric Range of Motion Knee jake Knee ROM WFL Yes Ankle and Foot Goniometric Range of Motion Ankle and Foot Left Passive Ankle/Foot ROM WFL No Left Active Ankle/Foot ROM WFL No PT-OP-M Strength Start: 05/28/19 08:11 Freq: Status: Active Protocol: Document 05/26/20 11:15 [facility] (Rec: 05/26/20 17:04 [facility] [id number]) Hip Strength Hip Manual Muscle Testing Left Flexion (L2) 3- Fair- Extension (S1) 2 Poor Abduction 2+ Poor+ External Rotation 3- Fair- Internal Rotation 3+ Fair+ Right Flexion (L2) 4 Good Extension (S1) 4- Good- Abduction 4 Good External Rotation 3+ Fair+ Internal Rotation 4- Good- PT-OP-Q Treatments Start: 05/28/19 08:11 Freq: Status: Active Protocol: Document 07/09/21 10:09 [facility] (Rec: 07/09/21 10:31 [facility] [id number]) Cardio Equipment Recumbent Stepper (Sci-Fit) Duration (Minutes) 10 Resistance 2.5 Seat Position 7 Other assist for IR left hip Gym Equipment Shuttle Balance green Details balance, WBOS Reps/Duration Comments cords loose CG- Roberto, Cued even wt BLE, (pt tends to wt shift into RLE more) Therapeutic Exercises Sitting Exercises HC stretch Side left Reps/Minutes 3 x 30 Comments manual, review with caregiver Gait Training Gait Activity parallel bars Description forward, back, side Device Used //bar mostly no UE support, occasional light touch support , AFO Surface firm Distance/Duration 3x each direction Treatment Focus neutral alignment, weight- shift over LLE required verbal sequencing Comments No theraband wrap on LE. Used mirror for visual feedback fwd /bwd and pt was able to improve LLE weight shift. 1 Description level surface Device Used AFO Level of Assistance CGA, cues Surface indoor carpet, firm Distance/Duration 20, 15, 10, 5 feet Treatment Focus gait without device Comments Cues for increased weight shift to left. good pacing but no metronome. Reports increased left knee instability but responds well to cues for soft knee Self-Care/Home Management Treatment Education Patient Education Body Mechanics,Joint Protection,Safety PT-OP-R Modalities Start: 05/28/19 08:11 Freq: Status: Active Protocol: Document 12/29/20 10:30 [facility] (Rec: 12/29/20 11:44 [facility] [id number]) Electric Stimulation Electric Stimulation Functional Electric Stimulation Body Location L hand/ forearm extensors Duration (Minutes) 2 Patient Position Sitting Comments NMES- education on placement of pad for muscular feedback extension based- check self placement understanding. PT-OP-T Assessment and Plan Start: 05/28/19 08:11 Freq: Status: Active Protocol: Document 07/09/21 10:09 [facility] (Rec: 07/09/21 10:31 [facility] [id number]) Physical Therapy Assessment Goals Five Impairment gait speed not adequate for safe community ambulation Platform Worker Goal (LTG) Patient able to ambulate 300' in 6 min. TUG score no greater than 30 sec 06/02/20: 134' 08/28/20: 144', likely not as high due to new shoes and wearing old AFO because fits better in new shoes. Requires level 4 theraband for derotation of left LE into more neutral position for gait . 09/19/20: 146 ft 6 min w/ QC and Tb wrapping to LLE. 11/13/20: 153 ft CG w/ SPC 2>3 pt gait w/out metronome w/ reported L glut/ lateral leg burn pain, 2 step brief stand breaks. 11/24/20: progressing 173.7 ft using SPC, predominently 2 pt gait. TUG score 59 sec using SP 01/27/21: TUG 55 sec. , 6 min walk test 199.9 ft with SPC 03/19/21: 6 min walk test 165' , TUG 1:20. Continue with use of theraband for derotation of excess ER left LE with gait . 04/16/21: 6MWT 190 ft w/ SPC and TB wrapping assist hip IR. 04/23/21: 6MWT 181 ftw/ SPC and TB wrapping 06/25/21: 6MWT 180 ft with SPC and TB wrapping. TU sec LTG Duration 09/22/21 Four Impairment requires assistance with bed mobility and transfers Short Term Goal (STG) Patient will be able to perform all bed mobility independently to improve her functional independence. 10/31/19: good goal progress 06/02/20:inconsistent, but min assist most times 11/24/20: Met goal: pt is independent in supine>sit. STG Duration goal met ( independent 11/24/20 ) Platform Worker Goal (LTG) Patient will be able to perform a floor transfer with SB to min assist. 5x sit to stand score in no more than 15 sec as measure of functional strength for transfers 10/31/19: max assist today 01/02/20: has not been willing to try since 10/31/19 06/02/21: does not feel strong enough to try yet. 06/25/21: 08/28/20: max assistance required 12/02/20: remains at max assist , not recently willing to attempt floor transfer. 5x sit to stand score 26 seconds 01/27/21: not tried recently. 03/24/21: 5x sit to stand 25 sec. No floor transfer today 06/25/21: 5x sit to stand 24 sec. Patient didn't feel up to doing floor transfer, remains a concern LTG Duration 09/22/21 Three Impairment weakness left UE and LE s/p CVA Platform Worker Goal (LTG) Improve functional strength in left LE, as evidenced by ability to move from sit > < stand without use of UE's. 10/31/19: OT starts tomorrow. Good progress with sit to stand, though mostly using right UE and LE 01/02/20: Improving ability to perform, able to increase weight-bearing through left LE with cues, but still some use of right UE 05/26/20: With manual and visual feedback patient able to transfer sit to stand with only CG A. 08/28/20: inconsistent ability to move sit to stand without using UE's, but able to do transfer without physical assistance 11/24/20: Goal Met 01/27/21: more difficulty recently, having to use hands. Goal reactivated. 03/24/21: difficulty motor planning and performing sit to stand today. 06/25/21: patient becomes frustrated with sit to stand transfers as she expresses she feels she has a hard time remembering how to do it, has to use right UE LTG Duration 09/22/21 Two Impairment balance dysfunction with high risk for falls Senior Living Goal (LTG) Improve balance as evidenced by improvement in Tinnetti balance and gait score to low fall risk range to improve safety in the home and community. 10/31/19: remains high risk for falls 01/02/20: some improvement but still in high risk category 05/26/20: Tinetti score in high risk category 08/28/20: moderate risk for falls 12/02/20: remains in moderate risk for falls. 01/27/21: moderate risk for falls 03/24/21: no significant change noted today but again having poor day. 06/25/21: Moderate risk for falls, though no reported falls over past few months. LTG Duration 09/22/21 One Impairment requires armaan-walker for gait, limited to household gait Senior Living Goal (LTG) Patient able to ambulate with least restrictive device for functional community distances to improve her functional independence and quality of life. 10/30/19: no progress due to Covid 19. 11/02/19: able to ambulate with quad cane but with very slow speed, household distances, very short community distances . 05/26/20: Now able to ambulate with use of single point cane and use of L4 theraband wrapped around left LE to facilitate left LE internal rotation for improved alignment. Patient unable to don the theraband on her own. Gait is for short distances and very slow at 39 ft in 2 min. 08/28/20: has demonstrated improved gait ability, still using theraband for derotation of LE for more neutral position. Able to consistenly use quad cane and is increasing stride length especially with cues. Now able to ascend and descend 4 stairs with min assist using railing. Mod assist on 6 stairs. 12/02/20: Patient ambulating with SPC, mostly household but some community distances, improved gait alignment with use of theraband for improved alignment. Patient not consistently able to ambulate community distances due to pain in her left LE, and lack of neurological control left LE. Patient may benefit from modification to her current AFO or fabrication of new AFO. 173 ft in 6 minutes 01/27/21: using SPC. Limitations due to left foot, knee and hip pain, right wrist pain 6 min walk test improved to 199.9 feet today 03/24/21: slower 6 min walk test today as above. Has had modification to her AFO with some improvement in her function, but had poor day today. 06/25/21: 180' on 6 min walk test, patient reports left knee feeling wonky, and right UE still painful due to surgery' having stitches out today. Also c/o lack of caregiver recently has limited her walking, no outings. Will try again next session. LTG Duration 09/22/21 Assessment Summary Assessment Patient affect not as positive , patient stressed about not being able to measure up to appontment 07/02 when she felt she did ok. Despite initially expressing not feeling she would do well, after practice in parallel bars with pre-gait and gait activities she was again able to ambulate outside the parallel bars. Did not push distance due to her feeling more tired, and arriving late today. Reviewed calf stretching techniques with caregiver who demonstrated fair understanding. Physical Therapy Plan Frequency and Duration Frequency of Treatment 2x/Week Duration of Treatment 12 wks Plan of Care Start Date 06/25/21 Plan of Care End Date 09/22/21 Therapeutic Interventions Therapeutic Interventions Aquatic Therapy,Balance Training,Gait Training,Home Exercise Program,Neuromuscular Re-education,Orthotic/ Prosthetic Management,Patient/ Caregiver Education,Self-Care/ Home Management,Taping, Therapeutic Activities, Therapeutic Exercises Modalities Cold Pack/Ice Massage,Hot Packs Next Visit Focus/Plan Next Note Type Treatment Note Next Visit Plan Continue gait training without device as tolerated, add uneven surfaces. Floor transfer.
--- NOTE | 2021-07-14 17:05 | PT.OTN ---
Current Diagnoses Hemiplegia, unspecified affecting unspecified side (07/14/21) Difficulty in walking, not elsewhere classified (07/14/21) Weakness (07/14/21) History of falling (07/14/21) Physical Therapy Treatment Note PT-OP-A Visit Information Start: 05/28/19 08:11 Freq: Status: Active Protocol: Document 07/14/21 09:46 SAK (Rec: 07/14/21 10:32 [facility] [id number]) Out-Patient Physical Therapy Visit Information Visit Information Visit Type Treatment Note Visit Start Time 09:45 Visit Stop Time 10:30 Total Visit Minutes 45 Visit Number [id number] Precautions Precautions Seizure disorder memory dysfunction PT-OP-B Current Condition Start: 05/28/19 08:11 Freq: Status: Active Protocol: Document 06/04/20 11:15 SAK (Rec: 06/05/20 16:34 [facility] [id number]) Current Condition History of Current Condition Onset Date 2014 Current Complaints weakness, requires assistance with all mobility and household tasks History of Current Condition Reports that she suffered a stroke in 2014 after surgery for brain aneurysm. CVA caused weakness on the left side of her body, gait and balance difficulty, seizures. PT-OP-C Subjective Start: 05/28/19 08:11 Freq: Status: Active Protocol: Document 07/14/21 09:46 SAK (Rec: 07/14/21 17:04 [facility] [id number]) OP-PT Subjective Patient Comments Patient Comments No new c/o, arrives on time today. At end of session states she wants to be able to do floor transfer. Asking questions about what else can be done for her arm as it is a bother and gets in the way. Has not gotten any return in her left arm. Agreed to talk with physician about this tomorrow. PT-OP-D Balance Start: 05/28/19 08:11 Freq: Status: Active Protocol: Document 05/29/19 14:30 SAK (Rec: 05/30/19 14:24 SAK [id number]) OP-PT Balance Assessment Sitting Balance Static Sitting Balance Ability Good Dynamic Sitting Balance Ability Fair Standing Balance Static Standing Balance Ability Good Dynamic Standing Balance Ability Fair Device Used hemiwalker right Tinetti Balance Assessment Sitting Balance Sitting Balance Steady, safe Arising from Chair Attempts to Arise Able, requires >1 attempt Standing Balance Immediate Standing Balance Steady with support Standing Balance Steady, wide stance Nudged Response Begins to fall Standing with Eyes Closed Unsteady Turning Step Pattern Turning 360 Degrees Discontinuous steps Stability Turning 360 Degrees Unsteady, grabs/staggers Sitting Down Sitting Down Uses arms or unsteady Gait and Step Initiation of Gait Hesitancy, mult. attempts Right Foot Step Length Does not pass stance ft. Right Foot Step Height Does not clear floor Left Foot Step Length Does not pass stance foot Left Foot Step Height Does not clear floor Step Description Step Symmetry Step length not equal Gait Description Path Description Mild/moderate deviation Trunk Description Marked sway or uses aide Walking Stance Heels apart Scoring and Interpretation Tinetti Composite Score (points) 6 Interpretation of Scores High risk for falls(< 19) Herrera Fall Scale Copyright Permission PT-OP-E Functional Tests Start: 05/28/19 08:11 Freq: Status: Active Protocol: Document 05/14/21 10:50 [facility] (Rec: 05/14/21 11:08 [facility] [id number]) Functional Tests 6 Minute Walk Test Distance 169ft Device Used spc, TB wrapping Comments pt has headache today and feels that may have slowed her down. Timed Up and Go (TUG) Score 107 seconds PT-OP-G Mobility & Gait Start: 05/28/19 08:11 Freq: Status: Active Protocol: Document 05/26/20 11:15 SAK (Rec: 05/26/20 17:04 SAK [id number]) OP Mobility Evaluation Bed Mobility Rolling min assist to right CGA to left Supine to and from Sit min assist to right CGA to left Transfers Sit to Stand CGA to min assist without UE use Bed to Chair Transfers requires use of right UE but able to do with SBA Floor Transfers unable PT-OP-H Neuro Start: 05/28/19 08:11 Freq: Status: Active Protocol: Document 05/29/19 14:30 SAK (Rec: 05/30/19 14:24 SAK [id number]) Sensation Evaluation Gross Sensation Gross Sensation Left UE Impaired,Left LE Impaired Sensation Description Paresthesia,Numbness Coordination Evaluation Lower Extremity Tests Left Alternate Heel to Knee; Heel to Toe Test Moderate Impairment Heel on Boles Test Moderate Impairment Foot Tapping Test Moderate Impairment PT-OP-K Range of Motion Start: 05/28/19 08:11 Freq: Status: Active Protocol: Document 05/26/20 11:15 SAK (Rec: 05/26/20 17:04 SAK [id number]) Hip Goniometric Range of Motion Hip jake Hip ROM WFL Yes Comments actively right LE, passively left LE Knee Goniometric Range of Motion Knee jake Knee ROM WFL Yes Ankle and Foot Goniometric Range of Motion Ankle and Foot Left Passive Ankle/Foot ROM WFL No Left Active Ankle/Foot ROM WFL No PT-OP-M Strength Start: 05/28/19 08:11 Freq: Status: Active Protocol: Document 05/26/20 11:15 [facility] (Rec: 05/26/20 17:04 [facility] [id number]) Hip Strength Hip Manual Muscle Testing Left Flexion (L2) 3- Fair- Extension (S1) 2 Poor Abduction 2+ Poor+ External Rotation 3- Fair- Internal Rotation 3+ Fair+ Right Flexion (L2) 4 Good Extension (S1) 4- Good- Abduction 4 Good External Rotation 3+ Fair+ Internal Rotation 4- Good- PT-OP-Q Treatments Start: 05/28/19 08:11 Freq: Status: Active Protocol: Document 07/14/21 09:46 [facility] (Rec: 07/14/21 10:32 [facility] [id number]) Therapeutic Exercises Sitting Exercises HC stretch Side left Reps/Minutes 3 x 30 Comments manual, review with caregiver Standing Exercises stride minisquat Reps/Minutes 10x minisquats Standing Exercise Name squats Equipment Used 18 chair Reps/Minutes 10x Comments no AFO; mirror for visual feedback Therapeutic Activity Therapeutic Activity pre-gait wt shifts, steps Comments mirror for visual feedback, in parallel bars but cues for no UE support; cues for weight shift left with some manual resistance Gait Training Gait Activity parallel bars Description forward, back, side Device Used //bar mostly no UE support, occasional light touch support , AFO Surface firm Distance/Duration 3x each direction Treatment Focus neutral alignment, weight- shift over LLE required verbal sequencing Comments No theraband wrap on LE. Used mirror for visual feedback fwd /bwd and pt was able to improve LLE weight shift. 1 Description level surface Device Used AFO Level of Assistance CGA, cues Surface indoor carpet, firm Distance/Duration 100, 15,15 ft Treatment Focus gait without device Comments Cues for increased weight shift to left. stair mgt Device Used right railing Level of Assistance verbal cues, mod assist for left LE alignment 50% of steps Surface 4 stairs Distance/Duration 1x Treatment Focus decreased use of right UE, inc wt shift to left. PT-OP-R Modalities Start: 05/28/19 08:11 Freq: Status: Active Protocol: Document 12/29/20 10:30 SP (Rec: 12/29/20 11:44 SP [id number]) Electric Stimulation Electric Stimulation Functional Electric Stimulation Body Location L hand/ forearm extensors Duration (Minutes) 2 Patient Position Sitting Comments NMES- education on placement of pad for muscular feedback extension based- check self placement understanding. PT-OP-T Assessment and Plan Start: 05/28/19 08:11 Freq: Status: Active Protocol: Document 07/14/21 09:46 SAK (Rec: 07/14/21 10:32 [facility]AK [id number]) Physical Therapy Assessment Goals Five Impairment gait speed not adequate for safe community ambulation Longterm Goal (LTG) Patient able to ambulate 300' in 6 min. TUG score no greater than 30 sec 06/02/20: 134' 08/28/20: 144', likely not as high due to new shoes and wearing old AFO because fits better in new shoes. Requires level 4 theraband for derotation of left LE into more neutral position for gait . 09/19/20: 146 ft 6 min w/ QC and Tb wrapping to LLE. 11/13/20: 153 ft CG w/ SPC 2>3 pt gait w/out metronome w/ reported L glut/ lateral leg burn pain, 2 step brief stand breaks. 11/24/20: progressing 173.7 ft using SPC, predominently 2 pt gait. TUG score 59 sec using SP 01/27/21: TUG 55 sec. , 6 min walk test 199.9 ft with SPC 03/19/21: 6 min walk test 165' , TUG 1:20. Continue with use of theraband for derotation of excess ER left LE with gait . 04/16/21: 6MWT 190 ft w/ SPC and TB wrapping assist hip IR. 04/23/21: 6MWT 181 ftw/ SPC and TB wrapping 06/25/21: 6MWT 180 ft with SPC and TB wrapping. TU sec LTG Duration 09/22/21 Four Impairment requires assistance with bed mobility and transfers Short Term Goal (STG) Patient will be able to perform all bed mobility independently to improve her functional independence. 10/31/19: good goal progress 06/02/20:inconsistent, but min assist most times 11/24/20: Met goal: pt is independent in supine>sit. STG Duration goal met ( independent 11/24/20 ) Trimming Inspector Goal (LTG) Patient will be able to perform a floor transfer with SB to min assist. 5x sit to stand score in no more than 15 sec as measure of functional strength for transfers 10/31/19: max assist today 01/02/20: has not been willing to try since 10/31/19 06/02/21: does not feel strong enough to try yet. 06/25/21: 08/28/20: max assistance required 12/02/20: remains at max assist , not recently willing to attempt floor transfer. 5x sit to stand score 26 seconds 01/27/21: not tried recently. 03/24/21: 5x sit to stand 25 sec. No floor transfer today 06/25/21: 5x sit to stand 24 sec. Patient didn't feel up to doing floor transfer, remains a concern LTG Duration 09/22/21 Three Impairment weakness left UE and LE s/p CVA Trimming Inspector Goal (LTG) Improve functional strength in left LE, as evidenced by ability to move from sit > < stand without use of UE's. 10/31/19: OT starts tomorrow. Good progress with sit to stand, though mostly using right UE and LE 01/02/20: Improving ability to perform, able to increase weight-bearing through left LE with cues, but still some use of right UE 05/26/20: With manual and visual feedback patient able to transfer sit to stand with only CG A. 08/28/20: inconsistent ability to move sit to stand without using UE's, but able to do transfer without physical assistance 11/24/20: Goal Met 01/27/21: more difficulty recently, having to use hands. Goal reactivated. 03/24/21: difficulty motor planning and performing sit to stand today. 06/25/21: patient becomes frustrated with sit to stand transfers as she expresses she feels she has a hard time remembering how to do it, has to use right UE LTG Duration 09/22/21 Two Impairment balance dysfunction with high risk for falls Longterm Goal (LTG) Improve balance as evidenced by improvement in Tinnetti balance and gait score to low fall risk range to improve safety in the home and community. 10/31/19: remains high risk for falls 01/02/20: some improvement but still in high risk category 05/26/20: Tinetti score in high risk category 08/28/20: moderate risk for falls 12/02/20: remains in moderate risk for falls. 01/27/21: moderate risk for falls 03/24/21: no significant change noted today but again having poor day. 06/25/21: Moderate risk for falls, though no reported falls over past few months. LTG Duration 09/22/21 One Impairment requires armaan-walker for gait, limited to household gait Longterm Goal (LTG) Patient able to ambulate with least restrictive device for functional community distances to improve her functional independence and quality of life. 10/30/19: no progress due to Covid 19. 11/02/19: able to ambulate with quad cane but with very slow speed, household distances, very short community distances . 05/26/20: Now able to ambulate with use of single point cane and use of L4 theraband wrapped around left LE to facilitate left LE internal rotation for improved alignment. Patient unable to don the theraband on her own. Gait is for short distances and very slow at 39 ft in 2 min. 08/28/20: has demonstrated improved gait ability, still using theraband for derotation of LE for more neutral position. Able to consistenly use quad cane and is increasing stride length especially with cues. Now able to ascend and descend 4 stairs with min assist using railing. Mod assist on 6 stairs. 12/02/20: Patient ambulating with SPC, mostly household but some community distances, improved gait alignment with use of theraband for improved alignment. Patient not consistently able to ambulate community distances due to pain in her left LE, and lack of neurological control left LE. Patient may benefit from modification to her current AFO or fabrication of new AFO. 173 ft in 6 minutes 01/27/21: using SPC. Limitations due to left foot, knee and hip pain, right wrist pain 6 min walk test improved to 199.9 feet today 03/24/21: slower 6 min walk test today as above. Has had modification to her AFO with some improvement in her function, but had poor day today. 06/25/21: 180' on 6 min walk test, patient reports left knee feeling wonky, and right UE still painful due to surgery' having stitches out today. Also c/o lack of caregiver recently has limited her walking, no outings. Will try again next session. LTG Duration 09/22/21 Assessment Summary Assessment [place] able to ambulate without assistive device again today and is demonstrating improved awareness of her alignment. Gait on 4 4 stairs with cues for increased weight shift to the left with good patient response and decreased right UE assistance. Discussed floor transfer and steps required to be able to do, added stride mini-squats to prep for floor transfer. Continues to make functional progress. Physical Therapy Plan Frequency and Duration Frequency of Treatment 2x/Week Duration of Treatment 12 wks Plan of Care Start Date 06/25/21 Plan of Care End Date 09/22/21 Therapeutic Interventions Therapeutic Interventions Aquatic Therapy,Balance Training,Gait Training,Home Exercise Program,Neuromuscular Re-education,Orthotic/ Prosthetic Management,Patient/ Caregiver Education,Self-Care/ Home Management,Taping, Therapeutic Activities, Therapeutic Exercises Modalities Cold Pack/Ice Massage,Hot Packs Next Visit Focus/Plan Next Note Type Treatment Note Next Visit Plan Continue gait training without device as tolerated, add uneven surfaces. Floor transfer prep on large black mat.
--- NOTE | 2021-07-17 10:30 | PT.OTN ---
Current Diagnoses Hemiplegia, unspecified affecting unspecified side (07/17/21) Difficulty in walking, not elsewhere classified (07/17/21) Weakness (07/17/21) History of falling (07/17/21) Physical Therapy Treatment Note PT-OP-A Visit Information Start: 05/28/19 08:11 Freq: Status: Active Protocol: Document 07/17/21 09:50 SP (Rec: 07/17/21 10:31 SP [id number]) Out-Patient Physical Therapy Visit Information Visit Information Visit Type Treatment Note Visit Start Time 09:50 Visit Stop Time 10:30 Total Visit Minutes 40 Visit Number 124 Number of DIRECTOR SERVICE Visits 1 Precautions Precautions Seizure disorder memory dysfunction PT-OP-B Current Condition Start: 05/28/19 08:11 Freq: Status: Active Protocol: Document 06/04/20 11:15 SAK (Rec: 06/05/20 16:34 SAK [id number]) Current Condition History of Current Condition Onset Date 2014 Current Complaints weakness, requires assistance with all mobility and household tasks History of Current Condition Reports that she suffered a stroke in 2014 after surgery for brain aneurysm. CVA caused weakness on the left side of her body, gait and balance difficulty, seizures. PT-OP-C Subjective Start: 05/28/19 08:11 Freq: Status: Active Protocol: Document 07/17/21 09:50 SP (Rec: 07/17/21 10:31 SP [id number]) OP-PT Subjective Patient Comments Patient Comments Pt stated trying to meet expectations of progressing beyond activity each tx but can be stressful if don't meet the expectations, gets depressed so asked therapists be mindful trying her best. She also commented therapist stated getting closer to pacing maybe use tredmill. Pt stated, thinks treadmill is to fast for her and might be to advanced for her to bring up and doesn't want to fail. Pt stated realized walked out of bathroom earlier and couldn't remember where put her cane and dawned on her its getting more automatic better balance without AD, caregiver showed pt where cane was placed last she used it. PT-OP-D Balance Start: 05/28/19 08:11 Freq: Status: Active Protocol: Document 05/29/19 14:30 SAK (Rec: 05/30/19 14:24 SAK [id number]) OP-PT Balance Assessment Sitting Balance Static Sitting Balance Ability Good Dynamic Sitting Balance Ability Fair Standing Balance Static Standing Balance Ability Good Dynamic Standing Balance Ability Fair Device Used hemiwalker right Tinetti Balance Assessment Sitting Balance Sitting Balance Steady, safe Arising from Chair Attempts to Arise Able, requires >1 attempt Standing Balance Immediate Standing Balance Steady with support Standing Balance Steady, wide stance Nudged Response Begins to fall Standing with Eyes Closed Unsteady Turning Step Pattern Turning 360 Degrees Discontinuous steps Stability Turning 360 Degrees Unsteady, grabs/staggers Sitting Down Sitting Down Uses arms or unsteady Gait and Step Initiation of Gait Hesitancy, mult. attempts Right Foot Step Length Does not pass stance ft. Right Foot Step Height Does not clear floor Left Foot Step Length Does not pass stance foot Left Foot Step Height Does not clear floor Step Description Step Symmetry Step length not equal Gait Description Path Description Mild/moderate deviation Trunk Description Marked sway or uses aide Walking Stance Heels apart Scoring and Interpretation Tinetti Composite Score (points) 6 Interpretation of Scores High risk for falls(< 19) Herrera Fall Scale Copyright Permission PT-OP-E Functional Tests Start: 05/28/19 08:11 Freq: Status: Active Protocol: Document 05/14/21 10:50 [facility] (Rec: 05/14/21 11:08 [facility] [id number]) Functional Tests 6 Minute Walk Test Distance 169ft Device Used spc, TB wrapping Comments pt has headache today and feels that may have slowed her down. Timed Up and Go (TUG) Score 107 seconds PT-OP-G Mobility & Gait Start: 05/28/19 08:11 Freq: Status: Active Protocol: Document 05/26/20 11:15 SAK (Rec: 05/26/20 17:04 [facility] [id number]) OP Mobility Evaluation Bed Mobility Rolling min assist to right CGA to left Supine to and from Sit min assist to right CGA to left Transfers Sit to Stand CGA to min assist without UE use Bed to Chair Transfers requires use of right UE but able to do with SBA Floor Transfers unable PT-OP-H Neuro Start: 05/28/19 08:11 Freq: Status: Active Protocol: Document 05/29/19 14:30 SAK (Rec: 05/30/19 14:24 SAK [id number]) Sensation Evaluation Gross Sensation Gross Sensation Left UE Impaired,Left LE Impaired Sensation Description Paresthesia,Numbness Coordination Evaluation Lower Extremity Tests Left Alternate Heel to Knee; Heel to Toe Test Moderate Impairment Heel on Boles Test Moderate Impairment Foot Tapping Test Moderate Impairment PT-OP-K Range of Motion Start: 05/28/19 08:11 Freq: Status: Active Protocol: Document 05/26/20 11:15 SAK (Rec: 05/26/20 17:04 [facility] [id number]) Hip Goniometric Range of Motion Hip jake Hip ROM WFL Yes Comments actively right LE, passively left LE Knee Goniometric Range of Motion Knee jake Knee ROM WFL Yes Ankle and Foot Goniometric Range of Motion Ankle and Foot Left Passive Ankle/Foot ROM WFL No Left Active Ankle/Foot ROM WFL No PT-OP-M Strength Start: 05/28/19 08:11 Freq: Status: Active Protocol: Document 05/26/20 11:15 [facility] (Rec: 05/26/20 17:04 [facility] [id number]) Hip Strength Hip Manual Muscle Testing Left Flexion (L2) 3- Fair- Extension (S1) 2 Poor Abduction 2+ Poor+ External Rotation 3- Fair- Internal Rotation 3+ Fair+ Right Flexion (L2) 4 Good Extension (S1) 4- Good- Abduction 4 Good External Rotation 3+ Fair+ Internal Rotation 4- Good- PT-OP-Q Treatments Start: 05/28/19 08:11 Freq: Status: Active Protocol: Document 07/17/21 09:50 SP (Rec: 07/17/21 10:31 SP [id number]) Therapeutic Exercises Sitting Exercises HC stretch Sitting Exercise Name HEP Side left Resistance AAROM Equipment Used manual and demonstrates use mesh chair w/ hip hinge forward self Reps/Minutes 60 Comments manual, review discussion with pt and caregiver. Gait Training Gait Activity stairs Description 4 stairs ascend/ 6-8 stairs descend Device Used R railing ascend, AFO, heel lift Level of Assistance CG- Min A Distance/Duration 1 set (shallow up, stepper down), R HR Treatment Focus alternating LE pattern facilitation Comments step to patterning, verbal and manual cues to increase weight shift to left LE, unlock left knee, alternating pattern as able but unable this tx, toes pointed forward. Pt required increase time, performed end tx. 1 Description level surface Device Used AFO Level of Assistance CGA, cues Surface indoor carpet, firm Distance/Duration 191 ft (63 ft with out SPC) Treatment Focus gait without device Comments Cues for increased weight shift to left, LLE stability quad fac durign RLE advancement. Caregiver provided cGA during gait for assessment safety carryover when out in community and at home. Pt gave caregiver feedback soft contact gait belt so not through her off balance- pt felt was pulling CG along, DIRECTOR SERVICE provided CG ligth contact touch and keep up pt's pacing and communication is good. Manual Therapy Treatment Soft Tissue Mobilization HS Body Location L Mobilization Type Myofascial Release,Rolling Intensity/Depth Moderate Body Position Sitting Comments manual, then 5%A prop up on mesh chair RLE and UEs supported self performs at home for stretch. PT-OP-R Modalities Start: 05/28/19 08:11 Freq: Status: Active Protocol: Document 12/29/20 10:30 SP (Rec: 12/29/20 11:44 SP [id number]) Electric Stimulation Electric Stimulation Functional Electric Stimulation Body Location L hand/ forearm extensors Duration (Minutes) 2 Patient Position Sitting Comments NMES- education on placement of pad for muscular feedback extension based- check self placement understanding. PT-OP-T Assessment and Plan Start: 05/28/19 08:11 Freq: Status: Active Protocol: Document 07/17/21 09:50 SP (Rec: 07/17/21 10:31 SP [id number]) Physical Therapy Assessment Goals Five Impairment gait speed not adequate for safe community ambulation [facility] Goal (LTG) Patient able to ambulate 300' in 6 min. TUG score no greater than 30 sec 06/02/20: 134' 08/28/20: 144', likely not as high due to new shoes and wearing old AFO because fits better in new shoes. Requires level 4 theraband for derotation of left LE into more neutral position for gait . 09/19/20: 146 ft 6 min w/ QC and Tb wrapping to LLE. 11/13/20: 153 ft CG w/ SPC 2>3 pt gait w/out metronome w/ reported L glut/ lateral leg burn pain, 2 step brief stand breaks. 11/24/20: progressing 173.7 ft using SPC, predominently 2 pt gait. TUG score 59 sec using SP 01/27/21: TUG 55 sec. , 6 min walk test 199.9 ft with SPC 03/19/21: 6 min walk test 165' , TUG 1:20. Continue with use of theraband for derotation of excess ER left LE with gait . 04/16/21: 6MWT 190 ft w/ SPC and TB wrapping assist hip IR. 04/23/21: 6MWT 181 ftw/ SPC and TB wrapping 06/25/21: 6MWT 180 ft with SPC and TB wrapping. TU sec LTG Duration 09/22/21 Four Impairment requires assistance with bed mobility and transfers Short Term Goal (STG) Patient will be able to perform all bed mobility independently to improve her functional independence. 10/31/19: good goal progress 06/02/20:inconsistent, but min assist most times 11/24/20: Met goal: pt is independent in supine>sit. STG Duration goal met ( independent 11/24/20 ) [employer] Goal (LTG) Patient will be able to perform a floor transfer with SB to min assist. 5x sit to stand score in no more than 15 sec as measure of functional strength for transfers 10/31/19: max assist today 01/02/20: has not been willing to try since 10/31/19 06/02/21: does not feel strong enough to try yet. 06/25/21: 08/28/20: max assistance required 12/02/20: remains at max assist , not recently willing to attempt floor transfer. 5x sit to stand score 26 seconds 01/27/21: not tried recently. 03/24/21: 5x sit to stand 25 sec. No floor transfer today 06/25/21: 5x sit to stand 24 sec. Patient didn't feel up to doing floor transfer, remains a concern LTG Duration 09/22/21 Three Impairment weakness left UE and LE s/p CVA [employer] Goal (LTG) Improve functional strength in left LE, as evidenced by ability to move from sit > < stand without use of UE's. 10/31/19: OT starts tomorrow. Good progress with sit to stand, though mostly using right UE and LE 01/02/20: Improving ability to perform, able to increase weight-bearing through left LE with cues, but still some use of right UE 05/26/20: With manual and visual feedback patient able to transfer sit to stand with only CG A. 08/28/20: inconsistent ability to move sit to stand without using UE's, but able to do transfer without physical assistance 11/24/20: Goal Met 01/27/21: more difficulty recently, having to use hands. Goal reactivated. 03/24/21: difficulty motor planning and performing sit to stand today. 06/25/21: patient becomes frustrated with sit to stand transfers as she expresses she feels she has a hard time remembering how to do it, has to use right UE LTG Duration 09/22/21 Two Impairment balance dysfunction with high risk for falls [facility] Goal (LTG) Improve balance as evidenced by improvement in Tinnetti balance and gait score to low fall risk range to improve safety in the home and community. 10/31/19: remains high risk for falls 01/02/20: some improvement but still in high risk category 05/26/20: Tinetti score in high risk category 08/28/20: moderate risk for falls 12/02/20: remains in moderate risk for falls. 01/27/21: moderate risk for falls 03/24/21: no significant change noted today but again having poor day. 06/25/21: Moderate risk for falls, though no reported falls over past few months. LTG Duration 09/22/21 One Impairment requires armaan-walker for gait, limited to household gait [employer] Goal (LTG) Patient able to ambulate with least restrictive device for functional community distances to improve her functional independence and quality of life. 10/30/19: no progress due to Covid 19. 11/02/19: able to ambulate with quad cane but with very slow speed, household distances, very short community distances . 05/26/20: Now able to ambulate with use of single point cane and use of L4 theraband wrapped around left LE to facilitate left LE internal rotation for improved alignment. Patient unable to don the theraband on her own. Gait is for short distances and very slow at 39 ft in 2 min. 08/28/20: has demonstrated improved gait ability, still using theraband for derotation of LE for more neutral position. Able to consistenly use quad cane and is increasing stride length especially with cues. Now able to ascend and descend 4 stairs with min assist using railing. Mod assist on 6 stairs. 12/02/20: Patient ambulating with SPC, mostly household but some community distances, improved gait alignment with use of theraband for improved alignment. Patient not consistently able to ambulate community distances due to pain in her left LE, and lack of neurological control left LE. Patient may benefit from modification to her current AFO or fabrication of new AFO. 173 ft in 6 minutes 01/27/21: using SPC. Limitations due to left foot, knee and hip pain, right wrist pain 6 min walk test improved to 199.9 feet today 03/24/21: slower 6 min walk test today as above. Has had modification to her AFO with some improvement in her function, but had poor day today. 06/25/21: 180' on 6 min walk test, patient reports left knee feeling wonky, and right UE still painful due to surgery' having stitches out today. Also c/o lack of caregiver recently has limited her walking, no outings. Will try again next session. LTG Duration 09/22/21 Assessment Summary Assessment Tx spent caregiver training with gait AFO donned, no TB with no AD and for safety hands free of carrying other things to focus on pt. Good feedback communication with each other contact GB. Pt noted x2 LOB self recovery while swing through RLE heel strike during WB into LLE and felt almost lost balance, DIRECTOR SERVICE stated be causious not fast pacing due to upper trunk momentum forward during RLE advancement and assureability of LLE quad engagement can become unsteady. Physical Therapy Plan Frequency and Duration Frequency of Treatment 2x/Week Duration of Treatment 12 wks Plan of Care Start Date 06/25/21 Plan of Care End Date 09/22/21 Therapeutic Interventions Therapeutic Interventions Aquatic Therapy,Balance Training,Gait Training,Home Exercise Program,Neuromuscular Re-education,Orthotic/ Prosthetic Management,Patient/ Caregiver Education,Self-Care/ Home Management,Taping, Therapeutic Activities, Therapeutic Exercises Modalities Cold Pack/Ice Massage,Hot Packs Next Visit Focus/Plan Next Note Type Treatment Note Next Visit Plan Nex tx: add uneven surfaces. Floor transfer prep on large black mat. POC: Continue gait training without device as tolerated
--- NOTE | 2021-07-22 12:46 | PT.OTN ---
Current Diagnoses Hemiplegia, unspecified affecting unspecified side (07/22/21) Difficulty in walking, not elsewhere classified (07/22/21) Weakness (07/22/21) History of falling (07/22/21) Physical Therapy Treatment Note PT-OP-A Visit Information Start: 05/28/19 08:11 Freq: Status: Active Protocol: Document 07/22/21 09:49 AW (Rec: 07/22/21 10:32 AW [id number]) Out-Patient Physical Therapy Visit Information Visit Information Visit Type Treatment Note Visit Start Time 09:52 Visit Stop Time 10:30 Total Visit Minutes 38 Visit Number 124 Number of FIRER ELECTRIC LOCOMOTIVE Visits 0 Precautions Precautions Seizure disorder memory dysfunction PT-OP-B Current Condition Start: 05/28/19 08:11 Freq: Status: Active Protocol: Document 06/04/20 11:15 SAK (Rec: 06/05/20 16:34 SAK [id number]) Current Condition History of Current Condition Onset Date 2014 Current Complaints weakness, requires assistance with all mobility and household tasks History of Current Condition Reports that she suffered a stroke in 2014 after surgery for brain aneurysm. CVA caused weakness on the left side of her body, gait and balance difficulty, seizures. PT-OP-C Subjective Start: 05/28/19 08:11 Freq: Status: Active Protocol: Document 07/22/21 09:49 AW (Rec: 07/22/21 10:32 AW [id number]) OP-PT Subjective Patient Comments Patient Comments Pt walked in to Dr. Valdez's office (did not use wheelchair ) and feels good about progress. PT-OP-D Balance Start: 05/28/19 08:11 Freq: Status: Active Protocol: Document 05/29/19 14:30 SAK (Rec: 05/30/19 14:24 SAK [id number]) OP-PT Balance Assessment Sitting Balance Static Sitting Balance Ability Good Dynamic Sitting Balance Ability Fair Standing Balance Static Standing Balance Ability Good Dynamic Standing Balance Ability Fair [facility] right Tinetti Balance Assessment Sitting Balance Sitting Balance Steady, safe Arising from Chair Attempts to Arise Able, requires >1 attempt Standing Balance Immediate Standing Balance Steady with support Standing Balance Steady, wide stance Nudged Response Begins to fall Standing with Eyes Closed Unsteady Turning Step Pattern Turning 360 Degrees Discontinuous steps Stability Turning 360 Degrees Unsteady, grabs/staggers Sitting Down Sitting Down Uses arms or unsteady Gait and Step Initiation of Gait Hesitancy, mult. attempts Right Foot Step Length Does not pass stance ft. Right Foot Step Height Does not clear floor Left Foot Step Length Does not pass stance foot Left Foot Step Height Does not clear floor Step Description Step Symmetry Step length not equal Gait Description Path Description Mild/moderate deviation Trunk Description Marked sway or uses aide Walking Stance Heels apart Scoring and Interpretation Tinetti Composite Score (points) 6 Interpretation of Scores High risk for falls(< 19) Herrera Fall Scale Copyright Permission PT-OP-E Functional Tests Start: 05/28/19 08:11 Freq: Status: Active Protocol: Document 05/14/21 10:50 AMH (Rec: 05/14/21 11:08 [facility]H [id number]) Functional Tests 6 Minute Walk Test Distance 169ft Device Used spc, TB wrapping Comments pt has headache today and feels that may have slowed her down. Timed Up and Go (TUG) Score 107 seconds PT-OP-G Mobility & Gait Start: 05/28/19 08:11 Freq: Status: Active Protocol: Document 05/26/20 11:15 SAK (Rec: 05/26/20 17:04 [facility] [id number]) OP Mobility Evaluation Bed Mobility Rolling min assist to right CGA to left Supine to and from Sit min assist to right CGA to left Transfers Sit to Stand CGA to min assist without UE use Bed to Chair Transfers requires use of right UE but able to do with SBA Floor Transfers unable PT-OP-H Neuro Start: 05/28/19 08:11 Freq: Status: Active Protocol: Document 05/29/19 14:30 SAK (Rec: 05/30/19 14:24 [facility] [id number]) Sensation Evaluation Gross Sensation Gross Sensation Left UE Impaired,Left LE Impaired Sensation Description Paresthesia,Numbness Coordination Evaluation Lower Extremity Tests Left Alternate Heel to Knee; Heel to Toe Test Moderate Impairment Heel on Boles Test Moderate Impairment Foot Tapping Test Moderate Impairment PT-OP-K Range of Motion Start: 05/28/19 08:11 Freq: Status: Active Protocol: Document 05/26/20 11:15 SAK (Rec: 05/26/20 17:04 [facility] [id number]) Hip Goniometric Range of Motion Hip jake Hip ROM WFL Yes Comments actively right LE, passively left LE Knee Goniometric Range of Motion Knee jake Knee ROM WFL Yes Ankle and Foot Goniometric Range of Motion Ankle and Foot Left Passive Ankle/Foot ROM WFL No Left Active Ankle/Foot ROM WFL No PT-OP-M Strength Start: 05/28/19 08:11 Freq: Status: Active Protocol: Document 05/26/20 11:15 SAK (Rec: 05/26/20 17:04 SAK [id number]) Hip Strength Hip Manual Muscle Testing Left Flexion (L2) 3- Fair- Extension (S1) 2 Poor Abduction 2+ Poor+ External Rotation 3- Fair- Internal Rotation 3+ Fair+ Right Flexion (L2) 4 Good Extension (S1) 4- Good- Abduction 4 Good External Rotation 3+ Fair+ Internal Rotation 4- Good- PT-OP-Q Treatments Start: 05/28/19 08:11 Freq: Status: Active Protocol: Document 07/22/21 09:49 AW (Rec: 07/22/21 10:32 AW [id number]) Therapeutic Exercises Sitting Exercises HC stretch Sitting Exercise Name HEP Side left Resistance AAROM Equipment Used manual and demonstrates use mesh chair w/ hip hinge forward self Reps/Minutes 30 x 3 Comments manual, review discussion with pt and caregiver. Standing Exercises minisquats Standing Exercise Name squats Equipment Used 18 chair Reps/Minutes x7 Comments no AFO; mirror for visual feedback Gait Training Gait Activity uneven Description uneven Device Used AFO, no cane Level of Assistance CGA Surface red yoga mat Treatment Focus weight shift, step length Comments Length of yoga mat 4x without cane CGA. 1 Description level surface Device Used AFO Level of Assistance CGA, cues Surface indoor carpet, firm Distance/Duration 147 ft (102 ft with out hurrycane) Treatment Focus gait without device Comments Cues for increased weight shift to left, increasing RLE step length. One brief standing rest break. Pt reached for wall twice but did not need increase in assist level. PT-OP-R Modalities Start: 05/28/19 08:11 Freq: Status: Active Protocol: Document 12/29/20 10:30 SP (Rec: 12/29/20 11:44 SP [id number]) Electric Stimulation Electric Stimulation Functional Electric Stimulation Body Location L hand/ forearm extensors Duration (Minutes) 2 Patient Position Sitting Comments NMES- education on placement of pad for muscular feedback extension based- check self placement understanding. PT-OP-T Assessment and Plan Start: 05/28/19 08:11 Freq: Status: Active Protocol: Document 07/22/21 09:49 AW (Rec: 07/22/21 10:32 AW [id number]) Physical Therapy Assessment Goals Five Impairment gait speed not adequate for safe community ambulation Ferris Wheel Operator Goal (LTG) Patient able to ambulate 300' in 6 min. TUG score no greater than 30 sec 06/02/20: 134' 08/28/20: 144', likely not as high due to new shoes and wearing old AFO because fits better in new shoes. Requires level 4 theraband for derotation of left LE into more neutral position for gait . 09/19/20: 146 ft 6 min w/ QC and Tb wrapping to LLE. 11/13/20: 153 ft CG w/ SPC 2>3 pt gait w/out metronome w/ reported L glut/ lateral leg burn pain, 2 step brief stand breaks. 11/24/20: progressing 173.7 ft using SPC, predominently 2 pt gait. TUG score 59 sec using SP 01/27/21: TUG 55 sec. , 6 min walk test 199.9 ft with SPC 03/19/21: 6 min walk test 165' , TUG 1:20. Continue with use of theraband for derotation of excess ER left LE with gait . 04/16/21: 6MWT 190 ft w/ SPC and TB wrapping assist hip IR. 04/23/21: 6MWT 181 ftw/ SPC and TB wrapping 06/25/21: 6MWT 180 ft with SPC and TB wrapping. TU sec LTG Duration 09/22/21 Four Impairment requires assistance with bed mobility and transfers Short Term Goal (STG) Patient will be able to perform all bed mobility independently to improve her functional independence. 10/31/19: good goal progress 06/02/20:inconsistent, but min assist most times 11/24/20: Met goal: pt is independent in supine>sit. STG Duration goal met ( independent 11/24/20 ) Ferris Wheel Operator Goal (LTG) Patient will be able to perform a floor transfer with SB to min assist. 5x sit to stand score in no more than 15 sec as measure of functional strength for transfers 10/31/19: max assist today 01/02/20: has not been willing to try since 10/31/19 06/02/21: does not feel strong enough to try yet. 06/25/21: 08/28/20: max assistance required 12/02/20: remains at max assist , not recently willing to attempt floor transfer. 5x sit to stand score 26 seconds 01/27/21: not tried recently. 03/24/21: 5x sit to stand 25 sec. No floor transfer today 06/25/21: 5x sit to stand 24 sec. Patient didn't feel up to doing floor transfer, remains a concern LTG Duration 09/22/21 Three Impairment weakness left UE and LE s/p CVA Ferris Wheel Operator Goal (LTG) Improve functional strength in left LE, as evidenced by ability to move from sit > < stand without use of UE's. 10/31/19: OT starts tomorrow. Good progress with sit to stand, though mostly using right UE and LE 01/02/20: Improving ability to perform, able to increase weight-bearing through left LE with cues, but still some use of right UE 05/26/20: With manual and visual feedback patient able to transfer sit to stand with only CG A. 08/28/20: inconsistent ability to move sit to stand without using UE's, but able to do transfer without physical assistance 11/24/20: Goal Met 01/27/21: more difficulty recently, having to use hands. Goal reactivated. 03/24/21: difficulty motor planning and performing sit to stand today. 06/25/21: patient becomes frustrated with sit to stand transfers as she expresses she feels she has a hard time remembering how to do it, has to use right UE LTG Duration 09/22/21 Two Impairment balance dysfunction with high risk for falls Mcfp Goal (LTG) Improve balance as evidenced by improvement in Tinnetti balance and gait score to low fall risk range to improve safety in the home and community. 10/31/19: remains high risk for falls 01/02/20: some improvement but still in high risk category 05/26/20: Tinetti score in high risk category 08/28/20: moderate risk for falls 12/02/20: remains in moderate risk for falls. 01/27/21: moderate risk for falls 03/24/21: no significant change noted today but again having poor day. 06/25/21: Moderate risk for falls, though no reported falls over past few months. LTG Duration 09/22/21 One Impairment requires armaan-walker for gait, limited to household gait Mcfp Goal (LTG) Patient able to ambulate with least restrictive device for functional community distances to improve her functional independence and quality of life. 10/30/19: no progress due to Covid 19. 11/02/19: able to ambulate with quad cane but with very slow speed, household distances, very short community distances . 05/26/20: Now able to ambulate with use of single point cane and use of L4 theraband wrapped around left LE to facilitate left LE internal rotation for improved alignment. Patient unable to don the theraband on her own. Gait is for short distances and very slow at 39 ft in 2 min. 08/28/20: has demonstrated improved gait ability, still using theraband for derotation of LE for more neutral position. Able to consistenly use quad cane and is increasing stride length especially with cues. Now able to ascend and descend 4 stairs with min assist using railing. Mod assist on 6 stairs. 12/02/20: Patient ambulating with SPC, mostly household but some community distances, improved gait alignment with use of theraband for improved alignment. Patient not consistently able to ambulate community distances due to pain in her left LE, and lack of neurological control left LE. Patient may benefit from modification to her current AFO or fabrication of new AFO. 173 ft in 6 minutes 01/27/21: using SPC. Limitations due to left foot, knee and hip pain, right wrist pain 6 min walk test improved to 199.9 feet today 03/24/21: slower 6 min walk test today as above. Has had modification to her AFO with some improvement in her function, but had poor day today. 06/25/21: 180' on 6 min walk test, patient reports left knee feeling wonky, and right UE still painful due to surgery' having stitches out today. Also c/o lack of caregiver recently has limited her walking, no outings. Will try again next session. LTG Duration 09/22/21 Assessment Summary Assessment [place] is in better spirits today and walked 102 feet without cane. Endurance is improving. Pt also tolerated short distances on uneven surface (red yoga mat). Continued work on [employer] with AFO. Physical Therapy Plan Frequency and Duration Frequency of Treatment 2x/Week Duration of Treatment 12 wks Plan of Care Start Date 06/25/21 Plan of Care End Date 09/22/21 Therapeutic Interventions Therapeutic Interventions Aquatic Therapy,Balance Training,Gait Training,Home Exercise Program,Neuromuscular Re-education,Orthotic/ Prosthetic Management,Patient/ Caregiver Education,Self-Care/ Home Management,Taping, Therapeutic Activities, Therapeutic Exercises Modalities Cold Pack/Ice Massage,Hot Packs Next Visit Focus/Plan Next Note Type Treatment Note Next Visit Plan Nex tx: continue uneven surfaces. Floor transfer prep on large black mat. POC: Continue gait training without device as tolerated
--- NOTE | 2021-07-24 10:28 | PT.OTN ---
Current Diagnoses Hemiplegia, unspecified affecting unspecified side (07/24/21) Difficulty in walking, not elsewhere classified (07/24/21) Weakness (07/24/21) History of falling (07/24/21) Physical Therapy Treatment Note PT-OP-A Visit Information Start: 05/28/19 08:11 Freq: Status: Active Protocol: Document 07/24/21 09:48 SP (Rec: 07/24/21 10:33 SP [id number]) Out-Patient Physical Therapy Visit Information Visit Information Visit Type Treatment Note Visit Start Time 09:48 Visit Stop Time 10:28 Total Visit Minutes 40 Visit Number 125 Number of PHOTONICS ENGINEERING TECHNICIAN Visits 1 Precautions Precautions Seizure disorder memory dysfunction PT-OP-B Current Condition Start: 05/28/19 08:11 Freq: Status: Active Protocol: Document 06/04/20 11:15 SAK (Rec: 06/05/20 16:34 SAK [id number]) Current Condition History of Current Condition Onset Date 2014 Current Complaints weakness, requires assistance with all mobility and household tasks History of Current Condition Reports that she suffered a stroke in 2014 after surgery for brain aneurysm. CVA caused weakness on the left side of her body, gait and balance difficulty, seizures. PT-OP-C Subjective Start: 05/28/19 08:11 Freq: Status: Active Protocol: Document 07/24/21 09:48 SP (Rec: 07/24/21 10:33 SP [id number]) OP-PT Subjective Patient Comments Patient Comments Pt reported her LLE felt pretty good after last tx, think the manual helped. Requested manual STM/ stretching L ankle, calf, HS pre gait for assist. PT-OP-D Balance Start: 05/28/19 08:11 Freq: Status: Active Protocol: Document 05/29/19 14:30 SAK (Rec: 05/30/19 14:24 SAK [id number]) OP-PT Balance Assessment Sitting Balance Static Sitting Balance Ability Good Dynamic Sitting Balance Ability Fair Standing Balance Static Standing Balance Ability Good Dynamic Standing Balance Ability Fair Device Used [facility] right Tinetti Balance Assessment Sitting Balance Sitting Balance Steady, safe Arising from Chair Attempts to Arise Able, requires >1 attempt Standing Balance Immediate Standing Balance Steady with support Standing Balance Steady, wide stance Nudged Response Begins to fall Standing with Eyes Closed Unsteady Turning Step Pattern Turning 360 Degrees Discontinuous steps Stability Turning 360 Degrees Unsteady, grabs/staggers Sitting Down Sitting Down Uses arms or unsteady Gait and Step Initiation of Gait Hesitancy, mult. attempts Right Foot Step Length Does not pass stance ft. Right Foot Step Height Does not clear floor Left Foot Step Length Does not pass stance foot Left Foot Step Height Does not clear floor Step Description Step Symmetry Step length not equal Gait Description Path Description Mild/moderate deviation Trunk Description Marked sway or uses aide Walking Stance Heels apart Scoring and Interpretation Tinetti Composite Score (points) 6 Interpretation of Scores High risk for falls(< 19) Herrera Fall Scale Copyright Permission PT-OP-E Functional Tests Start: 05/28/19 08:11 Freq: Status: Active Protocol: Document 05/14/21 10:50 AMH (Rec: 05/14/21 11:08 AMH [id number]) Functional Tests 6 Minute Walk Test Distance 169ft Device Used spc, TB wrapping Comments pt has headache today and feels that may have slowed her down. Timed Up and Go (TUG) Score 107 seconds PT-OP-G Mobility & Gait Start: 05/28/19 08:11 Freq: Status: Active Protocol: Document 05/26/20 11:15 SAK (Rec: 05/26/20 17:04 [facility] [id number]) OP Mobility Evaluation Bed Mobility Rolling min assist to right CGA to left Supine to and from Sit min assist to right CGA to left Transfers Sit to Stand CGA to min assist without UE use Bed to Chair Transfers requires use of right UE but able to do with SBA Floor Transfers unable PT-OP-H Neuro Start: 05/28/19 08:11 Freq: Status: Active Protocol: Document 05/29/19 14:30 SAK (Rec: 05/30/19 14:24 [facility] [id number]) Sensation Evaluation Gross Sensation Gross Sensation Left UE Impaired,Left LE Impaired Sensation Description Paresthesia,Numbness Coordination Evaluation Lower Extremity Tests Left Alternate Heel to Knee; Heel to Toe Test Moderate Impairment Heel on Boles Test Moderate Impairment Foot Tapping Test Moderate Impairment PT-OP-K Range of Motion Start: 05/28/19 08:11 Freq: Status: Active Protocol: Document 05/26/20 11:15 SAK (Rec: 05/26/20 17:04 SAK [id number]) Hip Goniometric Range of Motion Hip jake Hip ROM WFL Yes Comments actively right LE, passively left LE Knee Goniometric Range of Motion Knee jake Knee ROM WFL Yes Ankle and Foot Goniometric Range of Motion Ankle and Foot Left Passive Ankle/Foot ROM WFL No Left Active Ankle/Foot ROM WFL No PT-OP-M Strength Start: 05/28/19 08:11 Freq: Status: Active Protocol: Document 05/26/20 11:15 SAK (Rec: 05/26/20 17:04 SAK [id number]) Hip Strength Hip Manual Muscle Testing Left Flexion (L2) 3- Fair- Extension (S1) 2 Poor Abduction 2+ Poor+ External Rotation 3- Fair- Internal Rotation 3+ Fair+ Right Flexion (L2) 4 Good Extension (S1) 4- Good- Abduction 4 Good External Rotation 3+ Fair+ Internal Rotation 4- Good- PT-OP-Q Treatments Start: 05/28/19 08:11 Freq: Status: Active Protocol: Document 07/24/21 09:48 SP (Rec: 07/24/21 10:33 SP [id number]) Therapeutic Exercises Supine Exercises hamstring stretch Supine Exercise Name instruction on self hip hinge and DF calf/ HS stretch Side right Equipment Used seatd end mat table Reps/Minutes 2x30s Standing Exercises f/b/side stepping Standing Exercise Name side stepping R to sit, pivots Equipment Used noAFO Reps/Minutes 2 ft each direction Comments required contact for safety and Gait Training Gait Activity uneven Description uneven Device Used AFO, no cane Level of Assistance CGA Surface red yoga mat Distance/Duration x4 laps Treatment Focus weight shift, step length Comments Length of yoga mat 3x without cane CGA. 1 Description level surface Device Used AFO Level of Assistance CGA, cues Surface indoor carpet, firm Distance/Duration 1202 ft ft (142 ft with out hurrycane) Treatment Focus gait without device Comments Cues for increased weight shift to left, increasing RLE step length. 2 brief standing rest breaks and 1 seated rest due to R HS, calf pain. Pt reached for wall twice but did not need increase in assist level. Manual Therapy Treatment Soft Tissue Mobilization HS Body Location L Intensity/Depth Moderate Body Position Sitting Comments manual stretch knee extension w/ DF pre gait L calf Body Location L calf, Mobilization Type Myofascial Release,Strumming, Trigger Point Release Intensity/Depth Moderate Body Position seated pre gait Comments good feedback response decreased tight muscles Joint Mobilizations MTPs, talocrual mobs, rotation forefoot Joint L Grade II Body Position Sitting Comments good feedback response manual MWM support foot/ ankle seated pre gait, noted decrease plantar and inversion tone. PT-OP-R Modalities Start: 05/28/19 08:11 Freq: Status: Active Protocol: Document 12/29/20 10:30 SP (Rec: 12/29/20 11:44 SP [id number]) Electric Stimulation Electric Stimulation Functional Electric Stimulation Body Location L hand/ forearm extensors Duration (Minutes) 2 Patient Position Sitting Comments NMES- education on placement of pad for muscular feedback extension based- check self placement understanding. PT-OP-T Assessment and Plan Start: 05/28/19 08:11 Freq: Status: Active Protocol: Document 07/24/21 09:48 SP (Rec: 07/24/21 10:33 SP [id number]) Physical Therapy Assessment Goals Five Impairment gait speed not adequate for safe community ambulation Retirement Goal (LTG) Patient able to ambulate 300' in 6 min. TUG score no greater than 30 sec 06/02/20: 134' 08/28/20: 144', likely not as high due to new shoes and wearing old AFO because fits better in new shoes. Requires level 4 theraband for derotation of left LE into more neutral position for gait . 09/19/20: 146 ft 6 min w/ QC and Tb wrapping to LLE. 11/13/20: 153 ft CG w/ SPC 2>3 pt gait w/out metronome w/ reported L glut/ lateral leg burn pain, 2 step brief stand breaks. 11/24/20: progressing 173.7 ft using SPC, predominently 2 pt gait. TUG score 59 sec using SP 01/27/21: TUG 55 sec. , 6 min walk test 199.9 ft with SPC 03/19/21: 6 min walk test 165' , TUG 1:20. Continue with use of theraband for derotation of excess ER left LE with gait . 04/16/21: 6MWT 190 ft w/ SPC and TB wrapping assist hip IR. 04/23/21: 6MWT 181 ftw/ SPC and TB wrapping 06/25/21: 6MWT 180 ft with SPC and TB wrapping. TU sec LTG Duration 09/22/21 Four Impairment requires assistance with bed mobility and transfers Short Term Goal (STG) Patient will be able to perform all bed mobility independently to improve her functional independence. 10/31/19: good goal progress 06/02/20:inconsistent, but min assist most times 11/24/20: Met goal: pt is independent in supine>sit. STG Duration goal met ( independent 11/24/20 ) Funnel Coater Goal (LTG) Patient will be able to perform a floor transfer with SB to min assist. 5x sit to stand score in no more than 15 sec as measure of functional strength for transfers 10/31/19: max assist today 01/02/20: has not been willing to try since 10/31/19 06/02/21: does not feel strong enough to try yet. 06/25/21: 08/28/20: max assistance required 12/02/20: remains at max assist , not recently willing to attempt floor transfer. 5x sit to stand score 26 seconds 01/27/21: not tried recently. 03/24/21: 5x sit to stand 25 sec. No floor transfer today 06/25/21: 5x sit to stand 24 sec. Patient didn't feel up to doing floor transfer, remains a concern LTG Duration 09/22/21 Three Impairment weakness left UE and LE s/p CVA Funnel Coater Goal (LTG) Improve functional strength in left LE, as evidenced by ability to move from sit > < stand without use of UE's. 10/31/19: OT starts tomorrow. Good progress with sit to stand, though mostly using right UE and LE 01/02/20: Improving ability to perform, able to increase weight-bearing through left LE with cues, but still some use of right UE 05/26/20: With manual and visual feedback patient able to transfer sit to stand with only CG A. 08/28/20: inconsistent ability to move sit to stand without using UE's, but able to do transfer without physical assistance 11/24/20: Goal Met 01/27/21: more difficulty recently, having to use hands. Goal reactivated. 03/24/21: difficulty motor planning and performing sit to stand today. 06/25/21: patient becomes frustrated with sit to stand transfers as she expresses she feels she has a hard time remembering how to do it, has to use right UE LTG Duration 09/22/21 Two Impairment balance dysfunction with high risk for falls Funnel Coater Goal (LTG) Improve balance as evidenced by improvement in Tinnetti balance and gait score to low fall risk range to improve safety in the home and community. 10/31/19: remains high risk for falls 01/02/20: some improvement but still in high risk category 05/26/20: Tinetti score in high risk category 08/28/20: moderate risk for falls 12/02/20: remains in moderate risk for falls. 01/27/21: moderate risk for falls 03/24/21: no significant change noted today but again having poor day. 06/25/21: Moderate risk for falls, though no reported falls over past few months. LTG Duration 09/22/21 One Impairment requires armaan-walker for gait, limited to household gait Funnel Coater Goal (LTG) Patient able to ambulate with least restrictive device for functional community distances to improve her functional independence and quality of life. 10/30/19: no progress due to Covid 19. 11/02/19: able to ambulate with quad cane but with very slow speed, household distances, very short community distances . 05/26/20: Now able to ambulate with use of single point cane and use of L4 theraband wrapped around left LE to facilitate left LE internal rotation for improved alignment. Patient unable to don the theraband on her own. Gait is for short distances and very slow at 39 ft in 2 min. 08/28/20: has demonstrated improved gait ability, still using theraband for derotation of LE for more neutral position. Able to consistenly use quad cane and is increasing stride length especially with cues. Now able to ascend and descend 4 stairs with min assist using railing. Mod assist on 6 stairs. 12/02/20: Patient ambulating with SPC, mostly household but some community distances, improved gait alignment with use of theraband for improved alignment. Patient not consistently able to ambulate community distances due to pain in her left LE, and lack of neurological control left LE. Patient may benefit from modification to her current AFO or fabrication of new AFO. 173 ft in 6 minutes 01/27/21: using SPC. Limitations due to left foot, knee and hip pain, right wrist pain 6 min walk test improved to 199.9 feet today 03/24/21: slower 6 min walk test today as above. Has had modification to her AFO with some improvement in her function, but had poor day today. 06/25/21: 180' on 6 min walk test, patient reports left knee feeling wonky, and right UE still painful due to surgery' having stitches out today. Also c/o lack of caregiver recently has limited her walking, no outings. Will try again next session. LTG Duration 09/22/21 Assessment Summary Assessment Pt improved confidence gait over uneven foam yoga pad this tx without AD, initally stop step on then just walk up and step on without looking last 3 sets. Pt required seated rest due to RLE tiring and felt tightened, improved seated rest and instructed hip hinge HS and calf stretch. Manual to L calf ankle continued to help decrease L discomfort during gait. Improved LLE hip IR during gait in beginning, cues toward distance. Pt improved soft L knee during midstance and centering in hallway. Physical Therapy Plan Frequency and Duration Frequency of Treatment 2x/Week Duration of Treatment 12 wks Plan of Care Start Date 06/25/21 Plan of Care End Date 09/22/21 Therapeutic Interventions Therapeutic Interventions Aquatic Therapy,Balance Training,Gait Training,Home Exercise Program,Neuromuscular Re-education,Orthotic/ Prosthetic Management,Patient/ Caregiver Education,Self-Care/ Home Management,Taping, Therapeutic Activities, Therapeutic Exercises Modalities Cold Pack/Ice Massage,Hot Packs Next Visit Focus/Plan Next Note Type Treatment Note Next Visit Plan Nex tx: continue uneven surfaces, curb mgt. Floor transfer prep on large black mat. POC: Continue gait training without device as tolerated
--- NOTE | 2021-07-28 11:38 | PT.OTN ---
Current Diagnoses Hemiplegia, unspecified affecting unspecified side (07/28/21) Difficulty in walking, not elsewhere classified (07/28/21) Weakness (07/28/21) History of falling (07/28/21) Physical Therapy Treatment Note PT-OP-A Visit Information Start: 05/28/19 08:11 Freq: Status: Active Protocol: Document 07/28/21 08:44 AW (Rec: 07/28/21 10:29 AW [id number]) Out-Patient Physical Therapy Visit Information Visit Information Visit Type Treatment Note Visit Start Time 09:47 Visit Stop Time 10:30 Total Visit Minutes 43 Visit Number 126 Number of PODIATRIC ASSISTANT Visits 0 Precautions Precautions Seizure disorder memory dysfunction PT-OP-B Current Condition Start: 05/28/19 08:11 Freq: Status: Active Protocol: Document 06/04/20 11:15 SAK (Rec: 06/05/20 16:34 SAK [id number]) Current Condition History of Current Condition Onset Date 2014 Current Complaints weakness, requires assistance with all mobility and household tasks History of Current Condition Reports that she suffered a stroke in 2014 after surgery for brain aneurysm. CVA caused weakness on the left side of her body, gait and balance difficulty, seizures. PT-OP-C Subjective Start: 05/28/19 08:11 Freq: Status: Active Protocol: Document 07/28/21 08:44 AW (Rec: 07/28/21 10:29 AW [id number]) OP-PT Subjective Patient Comments Patient Comments Pt has some back pain after sitting long periods this week working on art projects. PT-OP-D Balance Start: 05/28/19 08:11 Freq: Status: Active Protocol: Document 05/29/19 14:30 SAK (Rec: 05/30/19 14:24 SAK [id number]) OP-PT Balance Assessment Sitting Balance Static Sitting Balance Ability Good Dynamic Sitting Balance Ability Fair Standing Balance Static Standing Balance Ability Good Dynamic Standing Balance Ability Fair Device Used hemiwalker right Tinetti Balance Assessment Sitting Balance Sitting Balance Steady, safe Arising from Chair Attempts to Arise Able, requires >1 attempt Standing Balance Immediate Standing Balance Steady with support Standing Balance Steady, wide stance Nudged Response Begins to fall Standing with Eyes Closed Unsteady Turning Step Pattern Turning 360 Degrees Discontinuous steps Stability Turning 360 Degrees Unsteady, grabs/staggers Sitting Down Sitting Down Uses arms or unsteady Gait and Step Initiation of Gait Hesitancy, mult. attempts Right Foot Step Length Does not pass stance ft. Right Foot Step Height Does not clear floor Left Foot Step Length Does not pass stance foot Left Foot Step Height Does not clear floor Step Description Step Symmetry Step length not equal Gait Description Path Description Mild/moderate deviation Trunk Description Marked sway or uses aide Walking Stance Heels apart Scoring and Interpretation Tinetti Composite Score (points) 6 Interpretation of Scores High risk for falls(< 19) Herrera Fall Scale Copyright Permission PT-OP-E Functional Tests Start: 05/28/19 08:11 Freq: Status: Active Protocol: Document 05/14/21 10:50 AMH (Rec: 05/14/21 11:08 AMH [id number]) Functional Tests 6 Minute Walk Test Distance 169ft Device Used spc, TB wrapping Comments pt has headache today and feels that may have slowed her down. Timed Up and Go (TUG) Score 107 seconds PT-OP-G Mobility & Gait Start: 05/28/19 08:11 Freq: Status: Active Protocol: Document 05/26/20 11:15 SAK (Rec: 05/26/20 17:04 [facility] [id number]) OP Mobility Evaluation Bed Mobility Rolling min assist to right CGA to left Supine to and from Sit min assist to right CGA to left Transfers Sit to Stand CGA to min assist without UE use Bed to Chair Transfers requires use of right UE but able to do with SBA Floor Transfers unable PT-OP-H Neuro Start: 05/28/19 08:11 Freq: Status: Active Protocol: Document 05/29/19 14:30 SAK (Rec: 05/30/19 14:24 [facility] [id number]) Sensation Evaluation Gross Sensation Gross Sensation Left UE Impaired,Left LE Impaired Sensation Description Paresthesia,Numbness Coordination Evaluation Lower Extremity Tests Left Alternate Heel to Knee; Heel to Toe Test Moderate Impairment Heel on Boles Test Moderate Impairment Foot Tapping Test Moderate Impairment PT-OP-K Range of Motion Start: 05/28/19 08:11 Freq: Status: Active Protocol: Document 05/26/20 11:15 SAK (Rec: 05/26/20 17:04 [facility] [id number]) Hip Goniometric Range of Motion Hip jake Hip ROM WFL Yes Comments actively right LE, passively left LE Knee Goniometric Range of Motion Knee jake Knee ROM WFL Yes Ankle and Foot Goniometric Range of Motion Ankle and Foot Left Passive Ankle/Foot ROM WFL No Left Active Ankle/Foot ROM WFL No PT-OP-M Strength Start: 05/28/19 08:11 Freq: Status: Active Protocol: Document 05/26/20 11:15 SAK (Rec: 05/26/20 17:04 SAK [id number]) Hip Strength Hip Manual Muscle Testing Left Flexion (L2) 3- Fair- Extension (S1) 2 Poor Abduction 2+ Poor+ External Rotation 3- Fair- Internal Rotation 3+ Fair+ Right Flexion (L2) 4 Good Extension (S1) 4- Good- Abduction 4 Good External Rotation 3+ Fair+ Internal Rotation 4- Good- PT-OP-Q Treatments Start: 05/28/19 08:11 Freq: Status: Active Protocol: Document 07/28/21 08:44 AW (Rec: 07/28/21 10:29 AW [id number]) Therapeutic Exercises Supine Exercises hamstring stretch Supine Exercise Name instruction on self hip hinge and DF calf/ HS stretch Side right Equipment Used seated std chair Reps/Minutes 2x30s Standing Exercises sit stands w/ AFO donned Standing Exercise Name no UEs Equipment Used 18 mat, no RUE assist Reps/Minutes 2x10 (2nd set with yoga mat under feet) Comments verbal and manual cues for LLE positioning, weightbearing Gait Training Gait Activity uneven Description uneven Device Used AFO, no cane Level of Assistance CGA Surface red yoga mat Distance/Duration x 5 laps Treatment Focus weight shift, step length Comments STS + yoga mat back and forth with left turns + stand>sit. Added wrinkles in mat for increased challenge. 1 Description level surface Device Used AFO Level of Assistance CGA, cues Surface indoor carpet, firm Distance/Duration 111 ft ft (142 ft with out hurrycane) Treatment Focus gait without device Comments Limited by low back pain today but no rest stops. PT-OP-R Modalities Start: 05/28/19 08:11 Freq: Status: Active Protocol: Document 12/29/20 10:30 SP (Rec: 12/29/20 11:44 SP [id number]) Electric Stimulation Electric Stimulation Functional Electric Stimulation Body Location L hand/ forearm extensors Duration (Minutes) 2 Patient Position Sitting Comments NMES- education on placement of pad for muscular feedback extension based- check self placement understanding. PT-OP-T Assessment and Plan Start: 05/28/19 08:11 Freq: Status: Active Protocol: Document 07/28/21 08:44 AW (Rec: 07/28/21 10:29 AW [id number]) Physical Therapy Assessment Goals Five Impairment gait speed not adequate for safe community ambulation Receptionist Nurse Goal (LTG) Patient able to ambulate 300' in 6 min. TUG score no greater than 30 sec 06/02/20: 134' 08/28/20: 144', likely not as high due to new shoes and wearing old AFO because fits better in new shoes. Requires level 4 theraband for derotation of left LE into more neutral position for gait . 09/19/20: 146 ft 6 min w/ QC and Tb wrapping to LLE. 11/13/20: 153 ft CG w/ SPC 2>3 pt gait w/out metronome w/ reported L glut/ lateral leg burn pain, 2 step brief stand breaks. 11/24/20: progressing 173.7 ft using SPC, predominently 2 pt gait. TUG score 59 sec using SP 01/27/21: TUG 55 sec. , 6 min walk test 199.9 ft with SPC 03/19/21: 6 min walk test 165' , TUG 1:20. Continue with use of theraband for derotation of excess ER left LE with gait . 04/16/21: 6MWT 190 ft w/ SPC and TB wrapping assist hip IR. 04/23/21: 6MWT 181 ftw/ SPC and TB wrapping 06/25/21: 6MWT 180 ft with SPC and TB wrapping. TU sec LTG Duration 09/22/21 Four Impairment requires assistance with bed mobility and transfers Short Term Goal (STG) Patient will be able to perform all bed mobility independently to improve her functional independence. 10/31/19: good goal progress 06/02/20:inconsistent, but min assist most times 11/24/20: Met goal: pt is independent in supine>sit. STG Duration goal met ( independent 11/24/20 ) Receptionist Nurse Goal (LTG) Patient will be able to perform a floor transfer with SB to min assist. 5x sit to stand score in no more than 15 sec as measure of functional strength for transfers 10/31/19: max assist today 01/02/20: has not been willing to try since 10/31/19 06/02/21: does not feel strong enough to try yet. 06/25/21: 08/28/20: max assistance required 12/02/20: remains at max assist , not recently willing to attempt floor transfer. 5x sit to stand score 26 seconds 01/27/21: not tried recently. 03/24/21: 5x sit to stand 25 sec. No floor transfer today 06/25/21: 5x sit to stand 24 sec. Patient didn't feel up to doing floor transfer, remains a concern LTG Duration 09/22/21 Three Impairment weakness left UE and LE s/p CVA Long-Term Goal (LTG) Improve functional strength in left LE, as evidenced by ability to move from sit > < stand without use of UE's. 10/31/19: OT starts tomorrow. Good progress with sit to stand, though mostly using right UE and LE 01/02/20: Improving ability to perform, able to increase weight-bearing through left LE with cues, but still some use of right UE 05/26/20: With manual and visual feedback patient able to transfer sit to stand with only CG A. 08/28/20: inconsistent ability to move sit to stand without using UE's, but able to do transfer without physical assistance 11/24/20: Goal Met 01/27/21: more difficulty recently, having to use hands. Goal reactivated. 03/24/21: difficulty motor planning and performing sit to stand today. 06/25/21: patient becomes frustrated with sit to stand transfers as she expresses she feels she has a hard time remembering how to do it, has to use right UE LTG Duration 09/22/21 Two Impairment balance dysfunction with high risk for falls Receptionist Nurse Goal (LTG) Improve balance as evidenced by improvement in Tinnetti balance and gait score to low fall risk range to improve safety in the home and community. 10/31/19: remains high risk for falls 01/02/20: some improvement but still in high risk category 05/26/20: Tinetti score in high risk category 08/28/20: moderate risk for falls 12/02/20: remains in moderate risk for falls. 01/27/21: moderate risk for falls 03/24/21: no significant change noted today but again having poor day. 06/25/21: Moderate risk for falls, though no reported falls over past few months. LTG Duration 09/22/21 One Impairment requires armaan-walker for gait, limited to household gait Long-Term Goal (LTG) Patient able to ambulate with least restrictive device for functional community distances to improve her functional independence and quality of life. 10/30/19: no progress due to Covid 19. 11/02/19: able to ambulate with quad cane but with very slow speed, household distances, very short community distances . 05/26/20: Now able to ambulate with use of single point cane and use of L4 theraband wrapped around left LE to facilitate left LE internal rotation for improved alignment. Patient unable to don the theraband on her own. Gait is for short distances and very slow at 39 ft in 2 min. 08/28/20: has demonstrated improved gait ability, still using theraband for derotation of LE for more neutral position. Able to consistenly use quad cane and is increasing stride length especially with cues. Now able to ascend and descend 4 stairs with min assist using railing. Mod assist on 6 stairs. 12/02/20: Patient ambulating with SPC, mostly household but some community distances, improved gait alignment with use of theraband for improved alignment. Patient not consistently able to ambulate community distances due to pain in her left LE, and lack of neurological control left LE. Patient may benefit from modification to her current AFO or fabrication of new AFO. 173 ft in 6 minutes 01/27/21: using SPC. Limitations due to left foot, knee and hip pain, right wrist pain 6 min walk test improved to 199.9 feet today 03/24/21: slower 6 min walk test today as above. Has had modification to her AFO with some improvement in her function, but had poor day today. 06/25/21: 180' on 6 min walk test, patient reports left knee feeling wonky, and right UE still painful due to surgery' having stitches out today. Also c/o lack of caregiver recently has limited her walking, no outings. Will try again next session. LTG Duration 09/22/21 Assessment Summary Assessment Pt was challenged with uneven surface in sit to stand and in gait without AD. No hesitation at first on yoga mat but pt had increased fear avoidance when wrinkles added to mat. Left hip rotation was more neutral in gait today. Physical Therapy Plan Frequency and Duration Frequency of Treatment 2x/Week Duration of Treatment 12 wks Plan of Care Start Date 06/25/21 Plan of Care End Date 09/22/21 Therapeutic Interventions Therapeutic Interventions Aquatic Therapy,Balance Training,Gait Training,Home Exercise Program,Neuromuscular Re-education,Orthotic/ Prosthetic Management,Patient/ Caregiver Education,Self-Care/ Home Management,Taping, Therapeutic Activities, Therapeutic Exercises Modalities Cold Pack/Ice Massage,Hot Packs Next Visit Focus/Plan Next Note Type Treatment Note Next Visit Plan Nex tx: continue uneven surfaces, curb mgt. Floor transfer prep on large black mat. POC: Continue gait training without device as tolerated
--- NOTE | 2021-07-30 10:31 | PT.OTN ---
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 CVA caused weakness on the left side of her body, gait and balance difficulty, seizures. PT-OP-C Subjective Start: 05/28/19 08:11 Freq: Status: Active Protocol: Document 07/30/21 08:53 AW (Rec: 07/30/21 10:31 AW [id number]) OP-PT Subjective Patient Comments Patient Comments Pt had some knee pain after last tx but her back is feeling better. Had OT eval yesterday and is encouraged to be working with her hand again. PT-OP-D Balance Start: 05/28/19 08:11 Freq: Status: Active Protocol: Document 05/29/19 14:30 SAK (Rec: 05/30/19 14:24 SAK [id number]) OP-PT Balance Assessment Sitting Balance Static Sitting Balance Ability Good Dynamic Sitting Balance Ability Fair Standing Balance Static Standing Balance Ability Good Dynamic Standing Balance Ability Fair Device [facility] right Tinetti Balance Assessment Sitting Balance Sitting Balance Steady, safe Arising from Chair Attempts to Arise Able, requires >1 attempt Standing Balance Immediate Standing Balance Steady with support Standing Balance Steady, wide stance Nudged Response Begins to fall Standing with Eyes Closed Unsteady Turning Step Pattern Turning 360 Degrees Discontinuous steps Stability Turning 360 Degrees Unsteady, grabs/staggers Sitting Down Sitting Down Uses arms or unsteady Gait and Step Initiation of Gait Hesitancy, mult. attempts Right Foot Step Length Does not pass stance ft. Right Foot Step Height Does not clear floor Left Foot Step Length Does not pass stance foot Left Foot Step Height Does not clear floor Step Description Step Symmetry Step length not equal Gait Description Path Description Mild/moderate deviation Trunk Description Marked sway or uses aide Walking Stance Heels apart Scoring and Interpretation Tinetti Composite Score (points) 6 Interpretation of Scores High risk for falls(< 19) Herrera Fall Scale Copyright Permission PT-OP-E Functional Tests Start: 05/28/19 08:11 Freq: Status: Active Protocol: Document 05/14/21 10:50 [facility] (Rec: 05/14/21 11:08 AMH [id number]) Functional Tests 6 Minute Walk Test Distance 169ft Device Used spc, TB wrapping Comments pt has headache today and feels that may have slowed her down. Timed Up and Go (TUG) Score 107 seconds PT-OP-G Mobility & Gait Start: 05/28/19 08:11 Freq: Status: Active Protocol: Document 05/26/20 11:15 SAK (Rec: 05/26/20 17:04 [facility] [id number]) OP Mobility Evaluation Bed Mobility Rolling min assist to right CGA to left Supine to and from Sit min assist to right CGA to left Transfers Sit to Stand CGA to min assist without UE use Bed to Chair Transfers requires use of right UE but able to do with SBA Floor Transfers unable PT-OP-H Neuro Start: 05/28/19 08:11 Freq: Status: Active Protocol: Document 05/29/19 14:30 SAK (Rec: 05/30/19 14:24 [facility] [id number]) Sensation Evaluation Gross Sensation Gross Sensation Left UE Impaired,Left LE Impaired Sensation Description Paresthesia,Numbness Coordination Evaluation Lower Extremity Tests Left Alternate Heel to Knee; Heel to Toe Test Moderate Impairment Heel on Boles Test Moderate Impairment Foot Tapping Test Moderate Impairment PT-OP-K Range of Motion Start: 05/28/19 08:11 Freq: Status: Active Protocol: Document 05/26/20 11:15 SAK (Rec: 05/26/20 17:04 [facility] [id number]) Hip Goniometric Range of Motion Hip jake Hip ROM WFL Yes Comments actively right LE, passively left LE Knee Goniometric Range of Motion Knee jake Knee ROM WFL Yes Ankle and Foot Goniometric Range of Motion Ankle and Foot Left Passive Ankle/Foot ROM WFL No Left Active Ankle/Foot ROM WFL No PT-OP-M Strength Start: 05/28/19 08:11 Freq: Status: Active Protocol: Document 05/26/20 11:15 SAK (Rec: 05/26/20 17:04 SAK [id number]) Hip Strength Hip Manual Muscle Testing Left Flexion (L2) 3- Fair- Extension (S1) 2 Poor Abduction 2+ Poor+ External Rotation 3- Fair- Internal Rotation 3+ Fair+ Right Flexion (L2) 4 Good Extension (S1) 4- Good- Abduction 4 Good External Rotation 3+ Fair+ Internal Rotation 4- Good- PT-OP-Q Treatments Start: 05/28/19 08:11 Freq: Status: Active Protocol: Document 07/30/21 08:53 AW (Rec: 07/30/21 10:31 AW [id number]) Cardio Equipment Recumbent Stepper (Sci-Fit) Duration (Minutes) 10 Resistance 2.5 Seat Position 7 Other assist for IR left hip Therapeutic Exercises Supine Exercises hamstring stretch Supine Exercise Name instruction on self hip hinge and DF calf/ HS stretch Side right Equipment Used seated std chair Reps/Minutes 2x30s Standing Exercises sit stands w/ AFO donned Standing Exercise Name no UEs Equipment Used 18 mat, no RUE assist Reps/Minutes 2x10 (2nd set with yoga mat under feet) Comments verbal and manual cues for LLE positioning, weight shift toward left Gait Training Gait Activity uneven Description uneven Device Used AFO, no cane Level of Assistance CGA Surface red yoga mat Distance/Duration x 2 laps Treatment Focus weight shift, step length Comments STS + yoga mat back and forth with left turns + stand>sit. Pt c/o R knee pain and did not tolerate more than 2 laps today 1 Description level surface Device Used AFO Level of Assistance CGA, cues Surface indoor carpet, firm Distance/Duration 150 feet Treatment Focus gait without device Comments No rest stops but pt does contact wall 4 times during gait. PT-OP-R Modalities Start: 05/28/19 08:11 Freq: Status: Active Protocol: Document 12/29/20 10:30 SP (Rec: 12/29/20 11:44 SP [id number]) Electric Stimulation Electric Stimulation Functional Electric Stimulation Body Location L hand/ forearm extensors Duration (Minutes) 2 Patient Position Sitting Comments NMES- education on placement of pad for muscular feedback extension based- check self placement understanding. PT-OP-T Assessment and Plan Start: 05/28/19 08:11 Freq: Status: Active Protocol: Document 07/30/21 08:53 AW (Rec: 07/30/21 10:31 AW [id number]) Physical Therapy Assessment Goals Five Impairment gait speed not adequate for safe community ambulation Senior Care Goal (LTG) Patient able to ambulate 300' in 6 min. TUG score no greater than 30 sec 06/02/20: 134' 08/28/20: 144', likely not as high due to new shoes and wearing old AFO because fits better in new shoes. Requires level 4 theraband for derotation of left LE into more neutral position for gait . 09/19/20: 146 ft 6 min w/ QC and Tb wrapping to LLE. 11/13/20: 153 ft CG w/ SPC 2>3 pt gait w/out metronome w/ reported L glut/ lateral leg burn pain, 2 step brief stand breaks. 11/24/20: progressing 173.7 ft using SPC, predominently 2 pt gait. TUG score 59 sec using SP 01/27/21: TUG 55 sec. , 6 min walk test 199.9 ft with SPC 03/19/21: 6 min walk test 165' , TUG 1:20. Continue with use of theraband for derotation of excess ER left LE with gait . 04/16/21: 6MWT 190 ft w/ SPC and TB wrapping assist hip IR. 04/23/21: 6MWT 181 ftw/ SPC and TB wrapping 06/25/21: 6MWT 180 ft with SPC and TB wrapping. TU sec LTG Duration 09/22/21 Four Impairment requires assistance with bed mobility and transfers Short Term Goal (STG) Patient will be able to perform all bed mobility independently to improve her functional independence. 10/31/19: good goal progress 06/02/20:inconsistent, but min assist most times 11/24/20: Met goal: pt is independent in supine>sit. STG Duration goal met ( independent 11/24/20 ) Truss Designer Goal (LTG) Patient will be able to perform a floor transfer with SB to min assist. 5x sit to stand score in no more than 15 sec as measure of functional strength for transfers 10/31/19: max assist today 01/02/20: has not been willing to try since 10/31/19 06/02/21: does not feel strong enough to try yet. 06/25/21: 08/28/20: max assistance required 12/02/20: remains at max assist , not recently willing to attempt floor transfer. 5x sit to stand score 26 seconds 01/27/21: not tried recently. 03/24/21: 5x sit to stand 25 sec. No floor transfer today 06/25/21: 5x sit to stand 24 sec. Patient didn't feel up to doing floor transfer, remains a concern LTG Duration 09/22/21 Three Impairment weakness left UE and LE s/p CVA Senior Care Goal (LTG) Improve functional strength in left LE, as evidenced by ability to move from sit > < stand without use of UE's. 10/31/19: OT starts tomorrow. Good progress with sit to stand, though mostly using right UE and LE 01/02/20: Improving ability to perform, able to increase weight-bearing through left LE with cues, but still some use of right UE 05/26/20: With manual and visual feedback patient able to transfer sit to stand with only CG A. 08/28/20: inconsistent ability to move sit to stand without using UE's, but able to do transfer without physical assistance 11/24/20: Goal Met 01/27/21: more difficulty recently, having to use hands. Goal reactivated. 03/24/21: difficulty motor planning and performing sit to stand today. 06/25/21: patient becomes frustrated with sit to stand transfers as she expresses she feels she has a hard time remembering how to do it, has to use right UE LTG Duration 09/22/21 Two Impairment balance dysfunction with high risk for falls Truss Designer Goal (LTG) Improve balance as evidenced by improvement in Tinnetti balance and gait score to low fall risk range to improve safety in the home and community. 10/31/19: remains high risk for falls 01/02/20: some improvement but still in high risk category 05/26/20: Tinetti score in high risk category 08/28/20: moderate risk for falls 12/02/20: remains in moderate risk for falls. 01/27/21: moderate risk for falls 03/24/21: no significant change noted today but again having poor day. 06/25/21: Moderate risk for falls, though no reported falls over past few months. LTG Duration 09/22/21 One Impairment requires armaan-walker for gait, limited to household gait Truss Designer Goal (LTG) Patient able to ambulate with least restrictive device for functional community distances to improve her functional independence and quality of life. 10/30/19: no progress due to Covid 19. 11/02/19: able to ambulate with quad cane but with very slow speed, household distances, very short community distances . 05/26/20: Now able to ambulate with use of single point cane and use of L4 theraband wrapped around left LE to facilitate left LE internal rotation for improved alignment. Patient unable to don the theraband on her own. Gait is for short distances and very slow at 39 ft in 2 min. 08/28/20: has demonstrated improved gait ability, still using theraband for derotation of LE for more neutral position. Able to consistenly use quad cane and is increasing stride length especially with cues. Now able to ascend and descend 4 stairs with min assist using railing. Mod assist on 6 stairs. 12/02/20: Patient ambulating with SPC, mostly household but some community distances, improved gait alignment with use of theraband for improved alignment. Patient not consistently able to ambulate community distances due to pain in her left LE, and lack of neurological control left LE. Patient may benefit from modification to her current AFO or fabrication of new AFO. 173 ft in 6 minutes 01/27/21: using SPC. Limitations due to left foot, knee and hip pain, right wrist pain 6 min walk test improved to 199.9 feet today 03/24/21: slower 6 min walk test today as above. Has had modification to her AFO with some improvement in her function, but had poor day today. 06/25/21: 180' on 6 min walk test, patient reports left knee feeling wonky, and right UE still painful due to surgery' having stitches out today. Also c/o lack of caregiver recently has limited her walking, no outings. Will try again next session. LTG Duration 09/22/21 Assessment Summary Assessment Pt limited by right knee pain today but did walk 150 feet without AD - contacting the wall only 4 times for support. Plan to continue working on uneven surfaces. Physical Therapy Plan Frequency and Duration Frequency of Treatment 2x/Week Duration of Treatment 12 wks Plan of Care Start Date 06/25/21 Plan of Care End Date 09/22/21 Therapeutic Interventions Therapeutic Interventions Aquatic Therapy,Balance Training,Gait Training,Home Exercise Program,Neuromuscular Re-education,Orthotic/ Prosthetic Management,Patient/ Caregiver Education,Self-Care/ Home Management,Taping, Therapeutic Activities, Therapeutic Exercises Modalities Cold Pack/Ice Massage,Hot Packs Next Visit Focus/Plan Next Note Type Treatment Note Next Visit Plan Nex tx: continue uneven surfaces, curb mgt. Floor transfer prep on large black mat. POC: Continue gait training without device as tolerated
--- NOTE | 2021-08-04 10:47 | PT.OTN ---
Current Diagnoses Hemiplegia, unspecified affecting unspecified side (08/04/21) Difficulty in walking, not elsewhere classified (08/04/21) Weakness (08/04/21) History of falling (08/04/21) Physical Therapy Treatment Note PT-OP-A Visit Information Start: 05/28/19 08:11 Freq: Status: Active Protocol: Document 08/04/21 09:48 SAK (Rec: 08/04/21 10:33 [facility] [id number]) Out-Patient Physical Therapy Visit Information Visit Information Visit Type Treatment Note Visit Start Time 09:45 Visit Stop Time 10:30 Total Visit Minutes 45 Visit Number 128 Number of PLAY READER Visits 0 Precautions Precautions Seizure disorder memory dysfunction PT-OP-B Current Condition Start: 05/28/19 08:11 Freq: Status: Active Protocol: Document 06/04/20 11:15 SAK (Rec: 06/05/20 16:34 [facility] [id number]) Current Condition History of Current Condition Onset Date 2014 Current Complaints weakness, requires assistance with all mobility and household tasks History of Current Condition Reports that she suffered a stroke in 2014 after surgery for brain aneurysm. CVA caused weakness on the left side of her body, gait and balance difficulty, seizures. PT-OP-C Subjective Start: 05/28/19 08:11 Freq: Status: Active Protocol: Document 08/04/21 09:48 SAK (Rec: 08/04/21 10:33 [facility] [id number]) OP-PT Subjective Patient Comments Patient Comments c/o some stomache burning from her protein shake. Doesn 't feel up to it today but wants to get back to doing hurdles. this is a sucky day , I feel weak. PT-OP-D Balance Start: 05/28/19 08:11 Freq: Status: Active Protocol: Document 05/29/19 14:30 SAK (Rec: 05/30/19 14:24 [facility]AK [id number]) OP-PT Balance Assessment Sitting Balance Static Sitting Balance Ability Good Dynamic Sitting Balance Ability Fair Standing Balance Static Standing Balance Ability Good Dynamic Standing Balance Ability Fair Device Used hemiwalker right Tinetti Balance Assessment Sitting Balance Sitting Balance Steady, safe Arising from Chair Attempts to Arise Able, requires >1 attempt Standing Balance Immediate Standing Balance Steady with support Standing Balance Steady, wide stance Nudged Response Begins to fall Standing with Eyes Closed Unsteady Turning Step Pattern Turning 360 Degrees Discontinuous steps Stability Turning 360 Degrees Unsteady, grabs/staggers Sitting Down Sitting Down Uses arms or unsteady Gait and Step Initiation of Gait Hesitancy, mult. attempts Right Foot Step Length Does not pass stance ft. Right Foot Step Height Does not clear floor Left Foot Step Length Does not pass stance foot Left Foot Step Height Does not clear floor Step Description Step Symmetry Step length not equal Gait Description Path Description Mild/moderate deviation Trunk Description Marked sway or uses aide Walking Stance Heels apart Scoring and Interpretation Tinetti Composite Score (points) 6 Interpretation of Scores High risk for falls(< 19) Herrera Fall Scale Copyright Permission PT-OP-E Functional Tests Start: 05/28/19 08:11 Freq: Status: Active Protocol: Document 05/14/21 10:50 [facility] (Rec: 05/14/21 11:08 [facility] [id number]) Functional Tests 6 Minute Walk Test Distance 169ft Device Used spc, TB wrapping Comments pt has headache today and feels that may have slowed her down. Timed Up and Go (TUG) Score 107 seconds PT-OP-G Mobility & Gait Start: 05/28/19 08:11 Freq: Status: Active Protocol: Document 05/26/20 11:15 SAK (Rec: 05/26/20 17:04 [facility] [id number]) OP Mobility Evaluation Bed Mobility Rolling min assist to right CGA to left Supine to and from Sit min assist to right CGA to left Transfers Sit to Stand CGA to min assist without UE use Bed to Chair Transfers requires use of right UE but able to do with SBA Floor Transfers unable PT-OP-H Neuro Start: 05/28/19 08:11 Freq: Status: Active Protocol: Document 05/29/19 14:30 SAK (Rec: 05/30/19 14:24 [facility] [id number]) Sensation Evaluation Gross Sensation Gross Sensation Left UE Impaired,Left LE Impaired Sensation Description Paresthesia,Numbness Coordination Evaluation Lower Extremity Tests Left Alternate Heel to Knee; Heel to Toe Test Moderate Impairment Heel on Boles Test Moderate Impairment Foot Tapping Test Moderate Impairment PT-OP-K Range of Motion Start: 05/28/19 08:11 Freq: Status: Active Protocol: Document 05/26/20 11:15 SAK (Rec: 05/26/20 17:04 [facility] [id number]) Hip Goniometric Range of Motion Hip jake Hip ROM WFL Yes Comments actively right LE, passively left LE Knee Goniometric Range of Motion Knee jake Knee ROM WFL Yes Ankle and Foot Goniometric Range of Motion Ankle and Foot Left Passive Ankle/Foot ROM WFL No Left Active Ankle/Foot ROM WFL No PT-OP-M Strength Start: 05/28/19 08:11 Freq: Status: Active Protocol: Document 05/26/20 11:15 [facility] (Rec: 05/26/20 17:04 [facility] [id number]) Hip Strength Hip Manual Muscle Testing Left Flexion (L2) 3- Fair- Extension (S1) 2 Poor Abduction 2+ Poor+ External Rotation 3- Fair- Internal Rotation 3+ Fair+ Right Flexion (L2) 4 Good Extension (S1) 4- Good- Abduction 4 Good External Rotation 3+ Fair+ Internal Rotation 4- Good- PT-OP-Q Treatments Start: 05/28/19 08:11 Freq: Status: Active Protocol: Document 08/04/21 09:48 [facility] (Rec: 08/04/21 10:33 [facility] [id number]) Cardio Equipment Recumbent Stepper (Sci-Fit) Duration (Minutes) 6 Resistance 2.0 Seat Position 11 Other verbal and manual cues for left LE alignment. Therapeutic Exercises Sitting Exercises HS stretch Reps/Minutes 2x30 Comments manual HC stretch Sitting Exercise Name HEP Side left Resistance AAROM Equipment Used manual and demonstrates use mesh chair w/ hip hinge forward self Reps/Minutes 30 x 3 Comments manual, review discussion with pt and caregiver. glut stretch Sitting Exercise Name R UE support RLE over LLE Reps/Minutes 30 x2 Comments cradle knee toward chest Standing Exercises weight-shifting Standing Exercise Name side to side, front to back Resistance AFO, in parrallel bars Equipment Used R HR Comments mirror for visual feedback, verbal and manual cues Gait Training Gait Activity parallel bars Description forward, back, Device Used //bar mostly no UE support, occasional light touch support , AFO Surface firm Distance/Duration 3x each direction Treatment Focus neutral alignment, weight- shift over LLE required verbal sequencing Comments No theraband wrap on LE. Used mirror for visual feedback fwd /bwd and pt was able to improve LLE weight shift. gait w/ AD no wrapping Description w/ TB wrapping w/ metronome Device Used SPC Level of Assistance SBA Surface stable Distance/Duration 75 ft, Treatment Focus L knee flexion, hip IR, wt shift to left, step-through RLE gait Comments cued small step LLE, bigger step RLE: 2 pt gait and LLE awareness of adduction to decrease L hip ER. Decreased edurance today. 1 Description level surface Device Used AFO Level of Assistance CGA, cues Surface indoor carpet, firm Distance/Duration 20x2 feet Treatment Focus gait without device PT-OP-R Modalities Start: 05/28/19 08:11 Freq: Status: Active Protocol: Document 12/29/20 10:30 [facility] (Rec: 12/29/20 11:44 [facility] [id number]) Electric Stimulation Electric Stimulation Functional Electric Stimulation Body Location L hand/ forearm extensors Duration (Minutes) 2 Patient Position Sitting Comments NMES- education on placement of pad for muscular feedback extension based- check self placement understanding. PT-OP-T Assessment and Plan Start: 05/28/19 08:11 Freq: Status: Active Protocol: Document 08/04/21 09:48 SAK (Rec: 08/04/21 10:33 [facility] [id number]) Physical Therapy Assessment Goals Five Impairment gait speed not adequate for safe community ambulation Shelter Goal (LTG) Patient able to ambulate 300' in 6 min. TUG score no greater than 30 sec 06/02/20: 134' 08/28/20: 144', likely not as high due to new shoes and wearing old AFO because fits better in new shoes. Requires level 4 theraband for derotation of left LE into more neutral position for gait . 09/19/20: 146 ft 6 min w/ QC and Tb wrapping to LLE. 11/13/20: 153 ft CG w/ SPC 2>3 pt gait w/out metronome w/ reported L glut/ lateral leg burn pain, 2 step brief stand breaks. 11/24/20: progressing 173.7 ft using SPC, predominently 2 pt gait. TUG score 59 sec using SP 01/27/21: TUG 55 sec. , 6 min walk test 199.9 ft with SPC 03/19/21: 6 min walk test 165' , TUG 1:20. Continue with use of theraband for derotation of excess ER left LE with gait . 04/16/21: 6MWT 190 ft w/ SPC and TB wrapping assist hip IR. 04/23/21: 6MWT 181 ftw/ SPC and TB wrapping 06/25/21: 6MWT 180 ft with SPC and TB wrapping. TU sec LTG Duration 09/22/21 Four Impairment requires assistance with bed mobility and transfers Short Term Goal (STG) Patient will be able to perform all bed mobility independently to improve her functional independence. 10/31/19: good goal progress 06/02/20:inconsistent, but min assist most times 11/24/20: Met goal: pt is independent in supine>sit. STG Duration goal met ( independent 11/24/20 ) Shelter Goal (LTG) Patient will be able to perform a floor transfer with SB to min assist. 5x sit to stand score in no more than 15 sec as measure of functional strength for transfers 10/31/19: max assist today 01/02/20: has not been willing to try since 10/31/19 06/02/21: does not feel strong enough to try yet. 06/25/21: 08/28/20: max assistance required 12/02/20: remains at max assist , not recently willing to attempt floor transfer. 5x sit to stand score 26 seconds 01/27/21: not tried recently. 03/24/21: 5x sit to stand 25 sec. No floor transfer today 06/25/21: 5x sit to stand 24 sec. Patient didn't feel up to doing floor transfer, remains a concern LTG Duration 09/22/21 Three Impairment weakness left UE and LE s/p CVA Slitter Operator Goal (LTG) Improve functional strength in left LE, as evidenced by ability to move from sit > < stand without use of UE's. 10/31/19: OT starts tomorrow. Good progress with sit to stand, though mostly using right UE and LE 01/02/20: Improving ability to perform, able to increase weight-bearing through left LE with cues, but still some use of right UE 05/26/20: With manual and visual feedback patient able to transfer sit to stand with only CG A. 08/28/20: inconsistent ability to move sit to stand without using UE's, but able to do transfer without physical assistance 11/24/20: Goal Met 01/27/21: more difficulty recently, having to use hands. Goal reactivated. 03/24/21: difficulty motor planning and performing sit to stand today. 06/25/21: patient becomes frustrated with sit to stand transfers as she expresses she feels she has a hard time remembering how to do it, has to use right UE LTG Duration 09/22/21 Two Impairment balance dysfunction with high risk for falls Slitter Operator Goal (LTG) Improve balance as evidenced by improvement in Tinnetti balance and gait score to low fall risk range to improve safety in the home and community. 10/31/19: remains high risk for falls 01/02/20: some improvement but still in high risk category 05/26/20: Tinetti score in high risk category 08/28/20: moderate risk for falls 12/02/20: remains in moderate risk for falls. 01/27/21: moderate risk for falls 03/24/21: no significant change noted today but again having poor day. 06/25/21: Moderate risk for falls, though no reported falls over past few months. LTG Duration 09/22/21 One Impairment requires armaan-walker for gait, limited to household gait Slitter Operator Goal (LTG) Patient able to ambulate with least restrictive device for functional community distances to improve her functional independence and quality of life. 10/30/19: no progress due to Covid 19. 11/02/19: able to ambulate with quad cane but with very slow speed, household distances, very short community distances . 05/26/20: Now able to ambulate with use of single point cane and use of L4 theraband wrapped around left LE to facilitate left LE internal rotation for improved alignment. Patient unable to don the theraband on her own. Gait is for short distances and very slow at 39 ft in 2 min. 08/28/20: has demonstrated improved gait ability, still using theraband for derotation of LE for more neutral position. Able to consistenly use quad cane and is increasing stride length especially with cues. Now able to ascend and descend 4 stairs with min assist using railing. Mod assist on 6 stairs. 12/02/20: Patient ambulating with SPC, mostly household but some community distances, improved gait alignment with use of theraband for improved alignment. Patient not consistently able to ambulate community distances due to pain in her left LE, and lack of neurological control left LE. Patient may benefit from modification to her current AFO or fabrication of new AFO. 173 ft in 6 minutes 01/27/21: using SPC. Limitations due to left foot, knee and hip pain, right wrist pain 6 min walk test improved to 199.9 feet today 03/24/21: slower 6 min walk test today as above. Has had modification to her AFO with some improvement in her function, but had poor day today. 06/25/21: 180' on 6 min walk test, patient reports left knee feeling wonky, and right UE still painful due to surgery' having stitches out today. Also c/o lack of caregiver recently has limited her walking, no outings. Will try again next session. LTG Duration 09/22/21 Assessment Summary Assessment Patient in low mood from start of PT session today, reported stomach upset initially then feeling weak, stated felt PT was being aggressive in cues with gait initially. Much encouragement for participation and to be nice to herself as PT reminded her some days are better than others. Patient exhibiting consistent frustration with her ability throughout session . Physical Therapy Plan Frequency and Duration Frequency of Treatment 2x/Week Duration of Treatment 12 wks Plan of Care Start Date 06/25/21 Plan of Care End Date 09/22/21 Therapeutic Interventions Therapeutic Interventions Aquatic Therapy,Balance Training,Gait Training,Home Exercise Program,Neuromuscular Re-education,Orthotic/ Prosthetic Management,Patient/ Caregiver Education,Self-Care/ Home Management,Taping, Therapeutic Activities, Therapeutic Exercises Modalities Cold Pack/Ice Massage,Hot Packs Next Visit Focus/Plan Next Note Type Treatment Note Next Visit Plan Nex tx: continue uneven surfaces, curb mgt. Floor transfer prep on large black mat. POC: Continue gait training without device as tolerated, functional retraining and neuro re-ed.
--- NOTE | 2021-08-06 12:11 | PT.OTN ---
Current Diagnoses Hemiplegia, unspecified affecting unspecified side (08/06/21) Difficulty in walking, not elsewhere classified (08/06/21) Weakness (08/06/21) History of falling (08/06/21) Physical Therapy Treatment Note PT-OP-A Visit Information Start: 05/28/19 08:11 Freq: Status: Active Protocol: Document 08/06/21 09:54 [facility] (Rec: 08/06/21 10:26 [facility] [id number]) Out-Patient Physical Therapy Visit Information Visit Information Visit Type Treatment Note Visit Start Time 09:45 Visit Stop Time 10:30 Total Visit Minutes 45 Visit Number 129 Number of MEASURER MACHINE Visits 0 Precautions Precautions Seizure disorder memory dysfunction PT-OP-B Current Condition Start: 05/28/19 08:11 Freq: Status: Active Protocol: Document 06/04/20 11:15 [facility] (Rec: 06/05/20 16:34 [facility] [id number]) Current Condition History of Current Condition Onset Date 2014 Current Complaints weakness, requires assistance with all mobility and household tasks History of Current Condition Reports that she suffered a stroke in 2014 after surgery for brain aneurysm. CVA caused weakness on the left side of her body, gait and balance difficulty, seizures. PT-OP-C Subjective Start: 05/28/19 08:11 Freq: Status: Active Protocol: Document 08/06/21 09:54 [facility] (Rec: 08/06/21 10:26 [facility] [id number]) OP-PT Subjective Patient Comments Patient Comments Initially reported feeling the same, hard day. After starting with Sci-Fit reported feeling better, less negative , like I can do something. PT-OP-D Balance Start: 05/28/19 08:11 Freq: Status: Active Protocol: Document 05/29/19 14:30 [facility] (Rec: 05/30/19 14:24 [facility] [id number]) OP-PT Balance Assessment Sitting Balance Static Sitting Balance Ability Good Dynamic Sitting Balance Ability Fair Standing Balance Static Standing Balance Ability Good Dynamic Standing Balance Ability Fair Device Used hemiwalker right Tinetti Balance Assessment Sitting Balance Sitting Balance Steady, safe Arising from Chair Attempts to Arise Able, requires >1 attempt Standing Balance Immediate Standing Balance Steady with support Standing Balance Steady, wide stance Nudged Response Begins to fall Standing with Eyes Closed Unsteady Turning Step Pattern Turning 360 Degrees Discontinuous steps Stability Turning 360 Degrees Unsteady, grabs/staggers Sitting Down Sitting Down Uses arms or unsteady Gait and Step Initiation of Gait Hesitancy, mult. attempts Right Foot Step Length Does not pass stance ft. Right Foot Step Height Does not clear floor Left Foot Step Length Does not pass stance foot Left Foot Step Height Does not clear floor Step Description Step Symmetry Step length not equal Gait Description Path Description Mild/moderate deviation Trunk Description Marked sway or uses aide Walking Stance Heels apart Scoring and Interpretation Tinetti Composite Score (points) 6 Interpretation of Scores High risk for falls(< 19) Herrera Fall Scale Copyright Permission PT-OP-E Functional Tests Start: 05/28/19 08:11 Freq: Status: Active Protocol: Document 05/14/21 10:50 [facility] (Rec: 05/14/21 11:08 [facility] [id number]) Functional Tests 6 Minute Walk Test Distance 169ft Device Used spc, TB wrapping Comments pt has headache today and feels that may have slowed her down. Timed Up and Go (TUG) Score 107 seconds PT-OP-G Mobility & Gait Start: 05/28/19 08:11 Freq: Status: Active Protocol: Document 05/26/20 11:15 [facility] (Rec: 05/26/20 17:04 [facility] [id number]) OP Mobility Evaluation Bed Mobility Rolling min assist to right CGA to left Supine to and from Sit min assist to right CGA to left Transfers Sit to Stand CGA to min assist without UE use Bed to Chair Transfers requires use of right UE but able to do with SBA Floor Transfers unable PT-OP-H Neuro Start: 05/28/19 08:11 Freq: Status: Active Protocol: Document 05/29/19 14:30 [facility] (Rec: 05/30/19 14:24 [facility] [id number]) Sensation Evaluation Gross Sensation Gross Sensation Left UE Impaired,Left LE Impaired Sensation Description Paresthesia,Numbness Coordination Evaluation Lower Extremity Tests Left Alternate Heel to Knee; Heel to Toe Test Moderate Impairment Heel on Boles Test Moderate Impairment Foot Tapping Test Moderate Impairment PT-OP-K Range of Motion Start: 05/28/19 08:11 Freq: Status: Active Protocol: Document 05/26/20 11:15 [facility] (Rec: 05/26/20 17:04 [facility] [id number]) Hip Goniometric Range of Motion Hip jake Hip ROM WFL Yes Comments actively right LE, passively left LE Knee Goniometric Range of Motion Knee jake Knee ROM WFL Yes Ankle and Foot Goniometric Range of Motion Ankle and Foot Left Passive Ankle/Foot ROM WFL No Left Active Ankle/Foot ROM WFL No PT-OP-M Strength Start: 05/28/19 08:11 Freq: Status: Active Protocol: Document 05/26/20 11:15 [facility] (Rec: 05/26/20 17:04 [facility] [id number]) Hip Strength Hip Manual Muscle Testing Left Flexion (L2) 3- Fair- Extension (S1) 2 Poor Abduction 2+ Poor+ External Rotation 3- Fair- Internal Rotation 3+ Fair+ Right Flexion (L2) 4 Good Extension (S1) 4- Good- Abduction 4 Good External Rotation 3+ Fair+ Internal Rotation 4- Good- PT-OP-Q Treatments Start: 05/28/19 08:11 Freq: Status: Active Protocol: Document 08/06/21 09:54 [facility] (Rec: 08/06/21 10:26 [facility] [id number]) Cardio Equipment Recumbent Stepper (Sci-Fit) Duration (Minutes) 6 Resistance 2.0 Seat Position 10 Other verbal and manual cues for left LE alignment. Therapeutic Exercises Supine Exercises ITband stretch Reps/Minutes 2x30 Comments manual, ed of caregiver gastroc stretch Supine Exercise Name manual stretch calf Side left Equipment Used in supine on table Comments after floor transfer training, review with caregiver hamstring stretch Side left Reps/Minutes 2x30s Comments manual, review with caregiver Standing Exercises sit stands w/ AFO donned Standing Exercise Name no UEs Equipment Used 18 mat, no RUE assist Reps/Minutes 3x Comments verbal and manual cues for LLE positioning, weight shift toward left Therapeutic Activity Therapeutic Activity sit>sideling> kneeling Comments seated to sidelying with min assist, mod assist to knees and right LE but patient reported too uncomfortable on left hip and requested back down. Much discussion regarding problem-solving as prep for floor transfer Gait Training Gait Activity 1 Description level surface Device Used AFO Level of Assistance CGA, cues Surface indoor carpet, firm Distance/Duration 50ft, 70 ft Treatment Focus gait without device Comments cues for inc weight shift left , inc step length right PT-OP-R Modalities Start: 05/28/19 08:11 Freq: Status: Active Protocol: Document 12/29/20 10:30 [facility] (Rec: 12/29/20 11:44 [facility] [id number]) Electric Stimulation Electric Stimulation Functional Electric Stimulation Body Location L hand/ forearm extensors Duration (Minutes) 2 Patient Position Sitting Comments NMES- education on placement of pad for muscular feedback extension based- check self placement understanding. PT-OP-T Assessment and Plan Start: 05/28/19 08:11 Freq: Status: Active Protocol: Document 08/06/21 09:54 [facility] (Rec: 08/06/21 10:26 [facility] [id number]) Physical Therapy Assessment Goals Five Impairment gait speed not adequate for safe community ambulation Prison Goal (LTG) Patient able to ambulate 300' in 6 min. TUG score no greater than 30 sec 06/02/20: 134' 08/28/20: 144', likely not as high due to new shoes and wearing old AFO because fits better in new shoes. Requires level 4 theraband for derotation of left LE into more neutral position for gait . 09/19/20: 146 ft 6 min w/ QC and Tb wrapping to LLE. 11/13/20: 153 ft CG w/ SPC 2>3 pt gait w/out metronome w/ reported L glut/ lateral leg burn pain, 2 step brief stand breaks. 11/24/20: progressing 173.7 ft using SPC, predominently 2 pt gait. TUG score 59 sec using SP 01/27/21: TUG 55 sec. , 6 min walk test 199.9 ft with SPC 03/19/21: 6 min walk test 165' , TUG 1:20. Continue with use of theraband for derotation of excess ER left LE with gait . 04/16/21: 6MWT 190 ft w/ SPC and TB wrapping assist hip IR. 04/23/21: 6MWT 181 ftw/ SPC and TB wrapping 06/25/21: 6MWT 180 ft with SPC and TB wrapping. TU sec LTG Duration 09/22/21 Four Impairment requires assistance with bed mobility and transfers Short Term Goal (STG) Patient will be able to perform all bed mobility independently to improve her functional independence. 10/31/19: good goal progress 06/02/20:inconsistent, but min assist most times 11/24/20: Met goal: pt is independent in supine>sit. STG Duration goal met ( independent 11/24/20 ) Prison Goal (LTG) Patient will be able to perform a floor transfer with SB to min assist. 5x sit to stand score in no more than 15 sec as measure of functional strength for transfers 10/31/19: max assist today 01/02/20: has not been willing to try since 10/31/19 06/02/21: does not feel strong enough to try yet. 06/25/21: 08/28/20: max assistance required 12/02/20: remains at max assist , not recently willing to attempt floor transfer. 5x sit to stand score 26 seconds 01/27/21: not tried recently. 03/24/21: 5x sit to stand 25 sec. No floor transfer today 06/25/21: 5x sit to stand 24 sec. Patient didn't feel up to doing floor transfer, remains a concern LTG Duration 09/22/21 Three Impairment weakness left UE and LE s/p CVA Prison Goal (LTG) Improve functional strength in left LE, as evidenced by ability to move from sit > < stand without use of UE's. 10/31/19: OT starts tomorrow. Good progress with sit to stand, though mostly using right UE and LE 01/02/20: Improving ability to perform, able to increase weight-bearing through left LE with cues, but still some use of right UE 05/26/20: With manual and visual feedback patient able to transfer sit to stand with only CG A. 08/28/20: inconsistent ability to move sit to stand without using UE's, but able to do transfer without physical assistance 11/24/20: Goal Met 01/27/21: more difficulty recently, having to use hands. Goal reactivated. 03/24/21: difficulty motor planning and performing sit to stand today. 06/25/21: patient becomes frustrated with sit to stand transfers as she expresses she feels she has a hard time remembering how to do it, has to use right UE LTG Duration 09/22/21 Two Impairment balance dysfunction with high risk for falls Accounting Bookkeeper Goal (LTG) Improve balance as evidenced by improvement in Tinnetti balance and gait score to low fall risk range to improve safety in the home and community. 10/31/19: remains high risk for falls 01/02/20: some improvement but still in high risk category 05/26/20: Tinetti score in high risk category 08/28/20: moderate risk for falls 12/02/20: remains in moderate risk for falls. 01/27/21: moderate risk for falls 03/24/21: no significant change noted today but again having poor day. 06/25/21: Moderate risk for falls, though no reported falls over past few months. LTG Duration 09/22/21 One Impairment requires armaan-walker for gait, limited to household gait Accounting Bookkeeper Goal (LTG) Patient able to ambulate with least restrictive device for functional community distances to improve her functional independence and quality of life. 10/30/19: no progress due to Covid 19. 11/02/19: able to ambulate with quad cane but with very slow speed, household distances, very short community distances . 05/26/20: Now able to ambulate with use of single point cane and use of L4 theraband wrapped around left LE to facilitate left LE internal rotation for improved alignment. Patient unable to don the theraband on her own. Gait is for short distances and very slow at 39 ft in 2 min. 08/28/20: has demonstrated improved gait ability, still using theraband for derotation of LE for more neutral position. Able to consistenly use quad cane and is increasing stride length especially with cues. Now able to ascend and descend 4 stairs with min assist using railing. Mod assist on 6 stairs. 12/02/20: Patient ambulating with SPC, mostly household but some community distances, improved gait alignment with use of theraband for improved alignment. Patient not consistently able to ambulate community distances due to pain in her left LE, and lack of neurological control left LE. Patient may benefit from modification to her current AFO or fabrication of new AFO. 173 ft in 6 minutes 01/27/21: using SPC. Limitations due to left foot, knee and hip pain, right wrist pain 6 min walk test improved to 199.9 feet today 03/24/21: slower 6 min walk test today as above. Has had modification to her AFO with some improvement in her function, but had poor day today. 06/25/21: 180' on 6 min walk test, patient reports left knee feeling wonky, and right UE still painful due to surgery' having stitches out today. Also c/o lack of caregiver recently has limited her walking, no outings. Will try again next session. LTG Duration 09/22/21 Assessment Summary Assessment Patient initially low mood. After Sci-Fit improved mood and expressing she feel like I can do something. Problem solving floor transfer with practice and mat table today; able to move sit to sidelying with SBA and cues, up to knees and right UE with mod assist but patient requested lay down at that point due to discomfort; PT provided LE stretching, then patient able to walk a second time mostly without UE support. Patient seeing counselor today after PT. Physical Therapy Plan Frequency and Duration Frequency of Treatment 2x/Week Duration of Treatment 12 wks Plan of Care Start Date 06/25/21 Plan of Care End Date 09/22/21 Therapeutic Interventions Therapeutic Interventions Aquatic Therapy,Balance Training,Gait Training,Home Exercise Program,Neuromuscular Re-education,Orthotic/ Prosthetic Management,Patient/ Caregiver Education,Self-Care/ Home Management,Taping, Therapeutic Activities, Therapeutic Exercises Modalities Cold Pack/Ice Massage,Hot Packs Next Visit Focus/Plan Next Note Type Treatment Note Next Visit Plan Nex tx: continue uneven surfaces, curb mgt. Floor transfer prep on large black mat. POC: Continue gait training without device as tolerated, functional retraining and neuro re-ed.
--- NOTE | 2021-08-06 12:13 | PT.OTN ---
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 CVA caused weakness on the left side of her body, gait and balance difficulty, seizures. PT-OP-C Subjective Start: 05/28/19 08:11 Freq: Status: Active Protocol: Document 08/06/21 09:54 [facility] (Rec: 08/06/21 10:26 [facility] [id number]) OP-PT Subjective Patient Comments Patient Comments Initially reported feeling the same, hard day. After starting with Sci-Fit reported feeling better, less negative , like I can do something. PT-OP-D Balance Start: 05/28/19 08:11 Freq: Status: Active Protocol: Document 05/29/19 14:30 [facility] (Rec: 05/30/19 14:24 [facility] [id number]) OP-PT Balance Assessment Sitting Balance Static Sitting Balance Ability Good Dynamic Sitting Balance Ability Fair Standing Balance Static Standing Balance Ability Good Dynamic Standing Balance Ability Fair Device Used hemiwalker right Tinetti Balance Assessment Sitting Balance Sitting Balance Steady, safe Arising from Chair Attempts to Arise Able, requires >1 attempt Standing Balance Immediate Standing Balance Steady with support Standing Balance Steady, wide stance Nudged Response Begins to fall Standing with Eyes Closed Unsteady Turning Step Pattern Turning 360 Degrees Discontinuous steps Stability Turning 360 Degrees Unsteady, grabs/staggers Sitting Down Sitting Down Uses arms or unsteady Gait and Step Initiation of Gait Hesitancy, mult. attempts Right Foot Step Length Does not pass stance ft. Right Foot Step Height Does not clear floor Left Foot Step Length Does not pass stance foot Left Foot Step Height Does not clear floor Step Description Step Symmetry Step length not equal Gait Description Path Description Mild/moderate deviation Trunk Description Marked sway or uses aide Walking Stance Heels apart Scoring and Interpretation Tinetti Composite Score (points) 6 Interpretation of Scores High risk for falls(< 19) Herrera Fall Scale Copyright Permission PT-OP-E Functional Tests Start: 05/28/19 08:11 Freq: Status: Active Protocol: Document 05/14/21 10:50 [facility] (Rec: 05/14/21 11:08 [facility] [id number]) Functional Tests 6 Minute Walk Test Distance 169ft Device Used spc, TB wrapping Comments pt has headache today and feels that may have slowed her down. Timed Up and Go (TUG) Score 107 seconds PT-OP-G Mobility & Gait Start: 05/28/19 08:11 Freq: Status: Active Protocol: Document 05/26/20 11:15 [facility] (Rec: 05/26/20 17:04 [facility] [id number]) OP Mobility Evaluation Bed Mobility Rolling min assist to right CGA to left Supine to and from Sit min assist to right CGA to left Transfers Sit to Stand CGA to min assist without UE use Bed to Chair Transfers requires use of right UE but able to do with SBA Floor Transfers unable PT-OP-H Neuro Start: 05/28/19 08:11 Freq: Status: Active Protocol: Document 05/29/19 14:30 [facility] (Rec: 05/30/19 14:24 [facility] [id number]) Sensation Evaluation Gross Sensation Gross Sensation Left UE Impaired,Left LE Impaired Sensation Description Paresthesia,Numbness Coordination Evaluation Lower Extremity Tests Left Alternate Heel to Knee; Heel to Toe Test Moderate Impairment Heel on Boles Test Moderate Impairment Foot Tapping Test Moderate Impairment PT-OP-K Range of Motion Start: 05/28/19 08:11 Freq: Status: Active Protocol: Document 05/26/20 11:15 [facility] (Rec: 05/26/20 17:04 [facility] [id number]) Hip Goniometric Range of Motion Hip jake Hip ROM WFL Yes Comments actively right LE, passively left LE Knee Goniometric Range of Motion Knee jake Knee ROM WFL Yes Ankle and Foot Goniometric Range of Motion Ankle and Foot Left Passive Ankle/Foot ROM WFL No Left Active Ankle/Foot ROM WFL No PT-OP-M Strength Start: 05/28/19 08:11 Freq: Status: Active Protocol: Document 05/26/20 11:15 [facility] (Rec: 05/26/20 17:04 [facility] [id number]) Hip Strength Hip Manual Muscle Testing Left Flexion (L2) 3- Fair- Extension (S1) 2 Poor Abduction 2+ Poor+ External Rotation 3- Fair- Internal Rotation 3+ Fair+ Right Flexion (L2) 4 Good Extension (S1) 4- Good- Abduction 4 Good External Rotation 3+ Fair+ Internal Rotation 4- Good- PT-OP-Q Treatments Start: 05/28/19 08:11 Freq: Status: Active Protocol: Document 08/06/21 09:54 [facility] (Rec: 08/06/21 10:26 [facility] [id number]) Cardio Equipment Recumbent Stepper (Sci-Fit) Duration (Minutes) 6 Resistance 2.0 Seat Position 10 Other verbal and manual cues for left LE alignment. Therapeutic Exercises Supine Exercises ITband stretch Reps/Minutes 2x30 Comments manual, ed of caregiver gastroc stretch Supine Exercise Name manual stretch calf Side left Equipment Used in supine on table Comments after floor transfer training, review with caregiver hamstring stretch Side left Reps/Minutes 2x30s Comments manual, review with caregiver Standing Exercises sit stands w/ AFO donned Standing Exercise Name no UEs Equipment Used 18 mat, no RUE assist Reps/Minutes 3x Comments verbal and manual cues for LLE positioning, weight shift toward left Therapeutic Activity Therapeutic Activity sit>sideling> kneeling Comments seated to sidelying with min assist, mod assist to knees and right LE but patient reported too uncomfortable on left hip and requested back down. Much discussion regarding problem-solving as prep for floor transfer Gait Training Gait Activity 1 Description level surface Device Used AFO Level of Assistance CGA, cues Surface indoor carpet, firm Distance/Duration 50ft, 70 ft Treatment Focus gait without device Comments cues for inc weight shift left , inc step length right PT-OP-R Modalities Start: 05/28/19 08:11 Freq: Status: Active Protocol: Document 12/29/20 10:30 [facility] (Rec: 12/29/20 11:44 [facility] [id number]) Electric Stimulation Electric Stimulation Functional Electric Stimulation Body Location L hand/ forearm extensors Duration (Minutes) 2 Patient Position Sitting Comments NMES- education on placement of pad for muscular feedback extension based- check self placement understanding. PT-OP-T Assessment and Plan Start: 05/28/19 08:11 Freq: Status: Active Protocol: Document 08/06/21 09:54 [facility] (Rec: 08/06/21 10:26 [facility] [id number]) Physical Therapy Assessment Goals Five Impairment gait speed not adequate for safe community ambulation Snf Goal (LTG) Patient able to ambulate 300' in 6 min. TUG score no greater than 30 sec 06/02/20: 134' 08/28/20: 144', likely not as high due to new shoes and wearing old AFO because fits better in new shoes. Requires level 4 theraband for derotation of left LE into more neutral position for gait . 09/19/20: 146 ft 6 min w/ QC and Tb wrapping to LLE. 11/13/20: 153 ft CG w/ SPC 2>3 pt gait w/out metronome w/ reported L glut/ lateral leg burn pain, 2 step brief stand breaks. 11/24/20: progressing 173.7 ft using SPC, predominently 2 pt gait. TUG score 59 sec using SP 01/27/21: TUG 55 sec. , 6 min walk test 199.9 ft with SPC 03/19/21: 6 min walk test 165' , TUG 1:20. Continue with use of theraband for derotation of excess ER left LE with gait . 04/16/21: 6MWT 190 ft w/ SPC and TB wrapping assist hip IR. 04/23/21: 6MWT 181 ftw/ SPC and TB wrapping 06/25/21: 6MWT 180 ft with SPC and TB wrapping. TU sec LTG Duration 09/22/21 Four Impairment requires assistance with bed mobility and transfers Short Term Goal (STG) Patient will be able to perform all bed mobility independently to improve her functional independence. 10/31/19: good goal progress 06/02/20:inconsistent, but min assist most times 11/24/20: Met goal: pt is independent in supine>sit. STG Duration goal met ( independent 11/24/20 ) Snf Goal (LTG) Patient will be able to perform a floor transfer with SB to min assist. 5x sit to stand score in no more than 15 sec as measure of functional strength for transfers 10/31/19: max assist today 01/02/20: has not been willing to try since 10/31/19 06/02/21: does not feel strong enough to try yet. 06/25/21: 08/28/20: max assistance required 12/02/20: remains at max assist , not recently willing to attempt floor transfer. 5x sit to stand score 26 seconds 01/27/21: not tried recently. 03/24/21: 5x sit to stand 25 sec. No floor transfer today 06/25/21: 5x sit to stand 24 sec. Patient didn't feel up to doing floor transfer, remains a concern LTG Duration 09/22/21 Three Impairment weakness left UE and LE s/p CVA Snf Goal (LTG) Improve functional strength in left LE, as evidenced by ability to move from sit > < stand without use of UE's. 10/31/19: OT starts tomorrow. Good progress with sit to stand, though mostly using right UE and LE 01/02/20: Improving ability to perform, able to increase weight-bearing through left LE with cues, but still some use of right UE 05/26/20: With manual and visual feedback patient able to transfer sit to stand with only CG A. 08/28/20: inconsistent ability to move sit to stand without using UE's, but able to do transfer without physical assistance 11/24/20: Goal Met 01/27/21: more difficulty recently, having to use hands. Goal reactivated. 03/24/21: difficulty motor planning and performing sit to stand today. 06/25/21: patient becomes frustrated with sit to stand transfers as she expresses she feels she has a hard time remembering how to do it, has to use right UE LTG Duration 09/22/21 Two Impairment balance dysfunction with high risk for falls Home Worker Goal (LTG) Improve balance as evidenced by improvement in Tinnetti balance and gait score to low fall risk range to improve safety in the home and community. 10/31/19: remains high risk for falls 01/02/20: some improvement but still in high risk category 05/26/20: Tinetti score in high risk category 08/28/20: moderate risk for falls 12/02/20: remains in moderate risk for falls. 01/27/21: moderate risk for falls 03/24/21: no significant change noted today but again having poor day. 06/25/21: Moderate risk for falls, though no reported falls over past few months. LTG Duration 09/22/21 One Impairment requires armaan-walker for gait, limited to household gait Home Worker Goal (LTG) Patient able to ambulate with least restrictive device for functional community distances to improve her functional independence and quality of life. 10/30/19: no progress due to Covid 19. 11/02/19: able to ambulate with quad cane but with very slow speed, household distances, very short community distances . 05/26/20: Now able to ambulate with use of single point cane and use of L4 theraband wrapped around left LE to facilitate left LE internal rotation for improved alignment. Patient unable to don the theraband on her own. Gait is for short distances and very slow at 39 ft in 2 min. 08/28/20: has demonstrated improved gait ability, still using theraband for derotation of LE for more neutral position. Able to consistenly use quad cane and is increasing stride length especially with cues. Now able to ascend and descend 4 stairs with min assist using railing. Mod assist on 6 stairs. 12/02/20: Patient ambulating with SPC, mostly household but some community distances, improved gait alignment with use of theraband for improved alignment. Patient not consistently able to ambulate community distances due to pain in her left LE, and lack of neurological control left LE. Patient may benefit from modification to her current AFO or fabrication of new AFO. 173 ft in 6 minutes 01/27/21: using SPC. Limitations due to left foot, knee and hip pain, right wrist pain 6 min walk test improved to 199.9 feet today 03/24/21: slower 6 min walk test today as above. Has had modification to her AFO with some improvement in her function, but had poor day today. 06/25/21: 180' on 6 min walk test, patient reports left knee feeling wonky, and right UE still painful due to surgery' having stitches out today. Also c/o lack of caregiver recently has limited her walking, no outings. Will try again next session. LTG Duration 09/22/21 Assessment Summary Assessment Patient initially low mood. After Sci-Fit improved mood and expressing she feel like I can do something. Problem solving floor transfer with practice and mat table today; able to move sit to sidelying with SBA and cues, up to knees and right UE with mod assist but patient requested lay down at that point due to discomfort; PT provided LE stretching, then patient able to walk a second time mostly without UE support. Patient seeing counselor today after PT. Physical Therapy Plan Frequency and Duration Frequency of Treatment 2x/Week Duration of Treatment 12 wks Plan of Care Start Date 06/25/21 Plan of Care End Date 09/22/21 Therapeutic Interventions Therapeutic Interventions Aquatic Therapy,Balance Training,Gait Training,Home Exercise Program,Neuromuscular Re-education,Orthotic/ Prosthetic Management,Patient/ Caregiver Education,Self-Care/ Home Management,Taping, Therapeutic Activities, Therapeutic Exercises Modalities Cold Pack/Ice Massage,Hot Packs Next Visit Focus/Plan Next Note Type Treatment Note Next Visit Plan Nex tx: continue uneven surfaces, curb mgt. Floor transfer prep on large black mat. POC: Continue gait training without device as tolerated, functional retraining and neuro re-ed.
--- NOTE | 2021-08-11 09:47 | PT.OTN ---
Current Diagnoses Hemiplegia, unspecified affecting unspecified side (08/11/21) Difficulty in walking, not elsewhere classified (08/11/21) Weakness (08/11/21) History of falling (08/11/21) Physical Therapy Treatment Note PT-OP-A Visit Information Start: 05/28/19 08:11 Freq: Status: Active Protocol: Document 08/06/21 09:54 [facility] (Rec: 08/06/21 10:26 [facility] [id number]) Out-Patient Physical Therapy Visit Information Visit Information Visit Type Treatment Note Visit Start Time 09:45 Visit Stop Time 10:30 Total Visit Minutes 45 Visit Number 129 Number of DOCUMENT COORDINATOR Visits 0 Precautions Precautions Seizure disorder memory dysfunction PT-OP-B Current Condition Start: 05/28/19 08:11 Freq: Status: Active Protocol: Document 06/04/20 11:15 [facility] (Rec: 06/05/20 16:34 [facility] [id number]) Current Condition History of Current Condition Onset Date 2014 Current Complaints weakness, requires assistance with all mobility and household tasks History of Current Condition Reports that she suffered a stroke in 2014 after surgery for brain aneurysm. CVA caused weakness on the left side of her body, gait and balance difficulty, seizures. PT-OP-C Subjective Start: 05/28/19 08:11 Freq: Status: Active Protocol: Document 08/06/21 09:54 [facility] (Rec: 08/06/21 10:26 [facility] [id number]) OP-PT Subjective Patient Comments Patient Comments Initially reported feeling the same, hard day. After starting with Sci-Fit reported feeling better, less negative , like I can do something. PT-OP-D Balance Start: 05/28/19 08:11 Freq: Status: Active Protocol: Document 05/29/19 14:30 [facility] (Rec: 05/30/19 14:24 [facility] [id number]) OP-PT Balance Assessment Sitting Balance Static Sitting Balance Ability Good Dynamic Sitting Balance Ability Fair Standing Balance Static Standing Balance Ability Good Dynamic Standing Balance Ability Fair Device Used hemiwalker right Tinetti Balance Assessment Sitting Balance Sitting Balance Steady, safe Arising from Chair Attempts to Arise Able, requires >1 attempt Standing Balance Immediate Standing Balance Steady with support Standing Balance Steady, wide stance Nudged Response Begins to fall Standing with Eyes Closed Unsteady Turning Step Pattern Turning 360 Degrees Discontinuous steps Stability Turning 360 Degrees Unsteady, grabs/staggers Sitting Down Sitting Down Uses arms or unsteady Gait and Step Initiation of Gait Hesitancy, mult. attempts Right Foot Step Length Does not pass stance ft. Right Foot Step Height Does not clear floor Left Foot Step Length Does not pass stance foot Left Foot Step Height Does not clear floor Step Description Step Symmetry Step length not equal Gait Description Path Description Mild/moderate deviation Trunk Description Marked sway or uses aide Walking Stance Heels apart Scoring and Interpretation Tinetti Composite Score (points) 6 Interpretation of Scores High risk for falls(< 19) Herrera Fall Scale Copyright Permission PT-OP-E Functional Tests Start: 05/28/19 08:11 Freq: Status: Active Protocol: Document 05/14/21 10:50 [facility] (Rec: 05/14/21 11:08 [facility] [id number]) Functional Tests 6 Minute Walk Test Distance 169ft Device Used spc, TB wrapping Comments pt has headache today and feels that may have slowed her down. Timed Up and Go (TUG) Score 107 seconds PT-OP-G Mobility & Gait Start: 05/28/19 08:11 Freq: Status: Active Protocol: Document 05/26/20 11:15 [facility] (Rec: 05/26/20 17:04 [facility] [id number]) OP Mobility Evaluation Bed Mobility Rolling min assist to right CGA to left Supine to and from Sit min assist to right CGA to left Transfers Sit to Stand CGA to min assist without UE use Bed to Chair Transfers requires use of right UE but able to do with SBA Floor Transfers unable PT-OP-H Neuro Start: 05/28/19 08:11 Freq: Status: Active Protocol: Document 05/29/19 14:30 [facility] (Rec: 05/30/19 14:24 [facility] [id number]) Sensation Evaluation Gross Sensation Gross Sensation Left UE Impaired,Left LE Impaired Sensation Description Paresthesia,Numbness Coordination Evaluation Lower Extremity Tests Left Alternate Heel to Knee; Heel to Toe Test Moderate Impairment Heel on Boles Test Moderate Impairment Foot Tapping Test Moderate Impairment PT-OP-K Range of Motion Start: 05/28/19 08:11 Freq: Status: Active Protocol: Document 05/26/20 11:15 [facility] (Rec: 05/26/20 17:04 [facility] [id number]) Hip Goniometric Range of Motion Hip jake Hip ROM WFL Yes Comments actively right LE, passively left LE Knee Goniometric Range of Motion Knee jake Knee ROM WFL Yes Ankle and Foot Goniometric Range of Motion Ankle and Foot Left Passive Ankle/Foot ROM WFL No Left Active Ankle/Foot ROM WFL No PT-OP-M Strength Start: 05/28/19 08:11 Freq: Status: Active Protocol: Document 05/26/20 11:15 [facility] (Rec: 05/26/20 17:04 [facility] [id number]) Hip Strength Hip Manual Muscle Testing Left Flexion (L2) 3- Fair- Extension (S1) 2 Poor Abduction 2+ Poor+ External Rotation 3- Fair- Internal Rotation 3+ Fair+ Right Flexion (L2) 4 Good Extension (S1) 4- Good- Abduction 4 Good External Rotation 3+ Fair+ Internal Rotation 4- Good- PT-OP-Q Treatments Start: 05/28/19 08:11 Freq: Status: Active Protocol: Document 08/06/21 09:54 [facility] (Rec: 08/06/21 10:26 [facility] [id number]) Cardio Equipment Recumbent Stepper (Sci-Fit) Duration (Minutes) 6 Resistance 2.0 Seat Position 10 Other verbal and manual cues for left LE alignment. Therapeutic Exercises Supine Exercises ITband stretch Reps/Minutes 2x30 Comments manual, ed of caregiver gastroc stretch Supine Exercise Name manual stretch calf Side left Equipment Used in supine on table Comments after floor transfer training, review with caregiver hamstring stretch Side left Reps/Minutes 2x30s Comments manual, review with caregiver Standing Exercises sit stands w/ AFO donned Standing Exercise Name no UEs Equipment Used 18 mat, no RUE assist Reps/Minutes 3x Comments verbal and manual cues for LLE positioning, weight shift toward left Therapeutic Activity Therapeutic Activity sit>sideling> kneeling Comments seated to sidelying with min assist, mod assist to knees and right LE but patient reported too uncomfortable on left hip and requested back down. Much discussion regarding problem-solving as prep for floor transfer Gait Training Gait Activity 1 Description level surface Device Used AFO Level of Assistance CGA, cues Surface indoor carpet, firm Distance/Duration 50ft, 70 ft Treatment Focus gait without device Comments cues for inc weight shift left , inc step length right PT-OP-R Modalities Start: 05/28/19 08:11 Freq: Status: Active Protocol: Document 12/29/20 10:30 [facility] (Rec: 12/29/20 11:44 [facility] [id number]) Electric Stimulation Electric Stimulation Functional Electric Stimulation Body Location L hand/ forearm extensors Duration (Minutes) 2 Patient Position Sitting Comments NMES- education on placement of pad for muscular feedback extension based- check self placement understanding. PT-OP-T Assessment and Plan Start: 05/28/19 08:11 Freq: Status: Active Protocol: Document 08/06/21 09:54 [facility] (Rec: 08/06/21 10:26 [facility] [id number]) Physical Therapy Assessment Goals Five Impairment gait speed not adequate for safe community ambulation Shelter Goal (LTG) Patient able to ambulate 300' in 6 min. TUG score no greater than 30 sec 06/02/20: 134' 08/28/20: 144', likely not as high due to new shoes and wearing old AFO because fits better in new shoes. Requires level 4 theraband for derotation of left LE into more neutral position for gait . 09/19/20: 146 ft 6 min w/ QC and Tb wrapping to LLE. 11/13/20: 153 ft CG w/ SPC 2>3 pt gait w/out metronome w/ reported L glut/ lateral leg burn pain, 2 step brief stand breaks. 11/24/20: progressing 173.7 ft using SPC, predominently 2 pt gait. TUG score 59 sec using SP 01/27/21: TUG 55 sec. , 6 min walk test 199.9 ft with SPC 03/19/21: 6 min walk test 165' , TUG 1:20. Continue with use of theraband for derotation of excess ER left LE with gait . 04/16/21: 6MWT 190 ft w/ SPC and TB wrapping assist hip IR. 04/23/21: 6MWT 181 ftw/ SPC and TB wrapping 06/25/21: 6MWT 180 ft with SPC and TB wrapping. TU sec LTG Duration 09/22/21 Four Impairment requires assistance with bed mobility and transfers Short Term Goal (STG) Patient will be able to perform all bed mobility independently to improve her functional independence. 10/31/19: good goal progress 06/02/20:inconsistent, but min assist most times 11/24/20: Met goal: pt is independent in supine>sit. STG Duration goal met ( independent 11/24/20 ) Shelter Goal (LTG) Patient will be able to perform a floor transfer with SB to min assist. 5x sit to stand score in no more than 15 sec as measure of functional strength for transfers 10/31/19: max assist today 01/02/20: has not been willing to try since 10/31/19 06/02/21: does not feel strong enough to try yet. 06/25/21: 08/28/20: max assistance required 12/02/20: remains at max assist , not recently willing to attempt floor transfer. 5x sit to stand score 26 seconds 01/27/21: not tried recently. 03/24/21: 5x sit to stand 25 sec. No floor transfer today 06/25/21: 5x sit to stand 24 sec. Patient didn't feel up to doing floor transfer, remains a concern LTG Duration 09/22/21 Three Impairment weakness left UE and LE s/p CVA Shelter Goal (LTG) Improve functional strength in left LE, as evidenced by ability to move from sit > < stand without use of UE's. 10/31/19: OT starts tomorrow. Good progress with sit to stand, though mostly using right UE and LE 01/02/20: Improving ability to perform, able to increase weight-bearing through left LE with cues, but still some use of right UE 05/26/20: With manual and visual feedback patient able to transfer sit to stand with only CG A. 08/28/20: inconsistent ability to move sit to stand without using UE's, but able to do transfer without physical assistance 11/24/20: Goal Met 01/27/21: more difficulty recently, having to use hands. Goal reactivated. 03/24/21: difficulty motor planning and performing sit to stand today. 06/25/21: patient becomes frustrated with sit to stand transfers as she expresses she feels she has a hard time remembering how to do it, has to use right UE LTG Duration 09/22/21 Two Impairment balance dysfunction with high risk for falls Behavioral Health Clinician Goal (LTG) Improve balance as evidenced by improvement in Tinnetti balance and gait score to low fall risk range to improve safety in the home and community. 10/31/19: remains high risk for falls 01/02/20: some improvement but still in high risk category 05/26/20: Tinetti score in high risk category 08/28/20: moderate risk for falls 12/02/20: remains in moderate risk for falls. 01/27/21: moderate risk for falls 03/24/21: no significant change noted today but again having poor day. 06/25/21: Moderate risk for falls, though no reported falls over past few months. LTG Duration 09/22/21 One Impairment requires armaan-walker for gait, limited to household gait Behavioral Health Clinician Goal (LTG) Patient able to ambulate with least restrictive device for functional community distances to improve her functional independence and quality of life. 10/30/19: no progress due to Covid 19. 11/02/19: able to ambulate with quad cane but with very slow speed, household distances, very short community distances . 05/26/20: Now able to ambulate with use of single point cane and use of L4 theraband wrapped around left LE to facilitate left LE internal rotation for improved alignment. Patient unable to don the theraband on her own. Gait is for short distances and very slow at 39 ft in 2 min. 08/28/20: has demonstrated improved gait ability, still using theraband for derotation of LE for more neutral position. Able to consistenly use quad cane and is increasing stride length especially with cues. Now able to ascend and descend 4 stairs with min assist using railing. Mod assist on 6 stairs. 12/02/20: Patient ambulating with SPC, mostly household but some community distances, improved gait alignment with use of theraband for improved alignment. Patient not consistently able to ambulate community distances due to pain in her left LE, and lack of neurological control left LE. Patient may benefit from modification to her current AFO or fabrication of new AFO. 173 ft in 6 minutes 01/27/21: using SPC. Limitations due to left foot, knee and hip pain, right wrist pain 6 min walk test improved to 199.9 feet today 03/24/21: slower 6 min walk test today as above. Has had modification to her AFO with some improvement in her function, but had poor day today. 06/25/21: 180' on 6 min walk test, patient reports left knee feeling wonky, and right UE still painful due to surgery' having stitches out today. Also c/o lack of caregiver recently has limited her walking, no outings. Will try again next session. LTG Duration 09/22/21 Assessment Summary Assessment Patient initially low mood. After Sci-Fit improved mood and expressing she feel like I can do something. Problem solving floor transfer with practice and mat table today; able to move sit to sidelying with SBA and cues, up to knees and right UE with mod assist but patient requested lay down at that point due to discomfort; PT provided LE stretching, then patient able to walk a second time mostly without UE support. Patient seeing counselor today after PT. Physical Therapy Plan Frequency and Duration Frequency of Treatment 2x/Week Duration of Treatment 12 wks Plan of Care Start Date 06/25/21 Plan of Care End Date 09/22/21 Therapeutic Interventions Therapeutic Interventions Aquatic Therapy,Balance Training,Gait Training,Home Exercise Program,Neuromuscular Re-education,Orthotic/ Prosthetic Management,Patient/ Caregiver Education,Self-Care/ Home Management,Taping, Therapeutic Activities, Therapeutic Exercises Modalities Cold Pack/Ice Massage,Hot Packs Next Visit Focus/Plan Next Note Type Treatment Note Next Visit Plan Nex tx: continue uneven surfaces, curb mgt. Floor transfer prep on large black mat. POC: Continue gait training without device as tolerated, functional retraining and neuro re-ed.
--- NOTE | 2021-08-11 10:51 | PT.OTN ---
Current Diagnoses Hemiplegia, unspecified affecting unspecified side (08/11/21) Difficulty in walking, not elsewhere classified (08/11/21) Weakness (08/11/21) History of falling (08/11/21) Physical Therapy Treatment Note PT-OP-A Visit Information Start: 05/28/19 08:11 Freq: Status: Active Protocol: Document 08/11/21 09:00 AW (Rec: 08/11/21 10:51 AW [id number]) Out-Patient Physical Therapy Visit Information Visit Information Visit Type Treatment Note Visit Start Time 09:50 Visit Stop Time 10:35 Total Visit Minutes 45 Visit Number 130 Number of CHARACTER ACTOR Visits 0 Precautions Precautions Seizure disorder memory dysfunction PT-OP-B Current Condition Start: 05/28/19 08:11 Freq: Status: Active Protocol: Document 06/04/20 11:15 SAK (Rec: 06/05/20 16:34 SAK [id number]) Current Condition History of Current Condition Onset Date 2014 Current Complaints weakness, requires assistance with all mobility and household tasks History of Current Condition Reports that she suffered a stroke in 2014 after surgery for brain aneurysm. CVA caused weakness on the left side of her body, gait and balance difficulty, seizures. PT-OP-C Subjective Start: 05/28/19 08:11 Freq: Status: Active Protocol: Document 08/11/21 09:00 AW (Rec: 08/11/21 10:51 AW [id number]) OP-PT Subjective Patient Comments Patient Comments I've been walking wrong because of the wind but I can make it right again. PT-OP-D Balance Start: 05/28/19 08:11 Freq: Status: Active Protocol: Document 05/29/19 14:30 SAK (Rec: 05/30/19 14:24 SAK [id number]) OP-PT Balance Assessment Sitting Balance Static Sitting Balance Ability Good Dynamic Sitting Balance Ability Fair Standing Balance Static Standing Balance Ability Good Dynamic Standing Balance Ability Fair Device Used hemiwalker right Tinetti Balance Assessment Sitting Balance Sitting Balance Steady, safe Arising from Chair Attempts to Arise Able, requires >1 attempt Standing Balance Immediate Standing Balance Steady with support Standing Balance Steady, wide stance Nudged Response Begins to fall Standing with Eyes Closed Unsteady Turning Step Pattern Turning 360 Degrees Discontinuous steps Stability Turning 360 Degrees Unsteady, grabs/staggers Sitting Down Sitting Down Uses arms or unsteady Gait and Step Initiation of Gait Hesitancy, mult. attempts Right Foot Step Length Does not pass stance ft. Right Foot Step Height Does not clear floor Left Foot Step Length Does not pass stance foot Left Foot Step Height Does not clear floor Step Description Step Symmetry Step length not equal Gait Description Path Description Mild/moderate deviation Trunk Description Marked sway or uses aide Walking Stance Heels apart Scoring and Interpretation Tinetti Composite Score (points) 6 Interpretation of Scores High risk for falls(< 19) Herrera Fall Scale Copyright Permission PT-OP-E Functional Tests Start: 05/28/19 08:11 Freq: Status: Active Protocol: Document 05/14/21 10:50 AMH (Rec: 05/14/21 11:08 [facility] [id number]) Functional Tests 6 Minute Walk Test Distance 169ft Device Used spc, TB wrapping Comments pt has headache today and feels that may have slowed her down. Timed Up and Go (TUG) Score 107 seconds PT-OP-G Mobility & Gait Start: 05/28/19 08:11 Freq: Status: Active Protocol: Document 05/26/20 11:15 SAK (Rec: 05/26/20 17:04 [facility] [id number]) OP Mobility Evaluation Bed Mobility Rolling min assist to right CGA to left Supine to and from Sit min assist to right CGA to left Transfers Sit to Stand CGA to min assist without UE use Bed to Chair Transfers requires use of right UE but able to do with SBA Floor Transfers unable PT-OP-H Neuro Start: 05/28/19 08:11 Freq: Status: Active Protocol: Document 05/29/19 14:30 SAK (Rec: 05/30/19 14:24 [facility] [id number]) Sensation Evaluation Gross Sensation Gross Sensation Left UE Impaired,Left LE Impaired Sensation Description Paresthesia,Numbness Coordination Evaluation Lower Extremity Tests Left Alternate Heel to Knee; Heel to Toe Test Moderate Impairment Heel on Boles Test Moderate Impairment Foot Tapping Test Moderate Impairment PT-OP-K Range of Motion Start: 05/28/19 08:11 Freq: Status: Active Protocol: Document 05/26/20 11:15 SAK (Rec: 05/26/20 17:04 SAK [id number]) Hip Goniometric Range of Motion Hip jake Hip ROM WFL Yes Comments actively right LE, passively left LE Knee Goniometric Range of Motion Knee jake Knee ROM WFL Yes Ankle and Foot Goniometric Range of Motion Ankle and Foot Left Passive Ankle/Foot ROM WFL No Left Active Ankle/Foot ROM WFL No PT-OP-M Strength Start: 05/28/19 08:11 Freq: Status: Active Protocol: Document 05/26/20 11:15 SAK (Rec: 05/26/20 17:04 SAK [id number]) Hip Strength Hip Manual Muscle Testing Left Flexion (L2) 3- Fair- Extension (S1) 2 Poor Abduction 2+ Poor+ External Rotation 3- Fair- Internal Rotation 3+ Fair+ Right Flexion (L2) 4 Good Extension (S1) 4- Good- Abduction 4 Good External Rotation 3+ Fair+ Internal Rotation 4- Good- PT-OP-Q Treatments Start: 05/28/19 08:11 Freq: Status: Active Protocol: Document 08/11/21 09:00 AW (Rec: 08/11/21 10:51 AW [id number]) Cardio Equipment Recumbent Stepper (Sci-Fit) Duration (Minutes) 6 Resistance 2.0 Seat Position 10 Other verbal and manual cues for left LE alignment. Therapeutic Exercises Supine Exercises hamstring stretch Side left Reps/Minutes 2x30s Comments manual, review with caregiver Standing Exercises sit stands w/ AFO donned Standing Exercise Name no RUE assist Equipment Used std height chair Reps/Minutes x5 Comments verbal and manual cues for LLE positioning, weight shift toward left Gait Training Gait Activity uneven Description uneven Device Used AFO, no cane Level of Assistance CGA Surface red yoga mat Distance/Duration x 3 laps Treatment Focus weight shift, step length Comments STS + walk length of yoga mat back and forth with left turns + stand>sit. Second rep, pt unable to clear right foot to step on yoga mat. Practiced stepping backward to re-set and then continued. forward/back steps Device Used near rail, PRN if needed Level of Assistance no AD, CG to min assist Surface firm w/ AFO Distance/Duration 20 ft x2 laps Treatment Focus increase weight bearing LLE Comments decreased LLE step length walking backward, required cues for step length and CGA. Mod cues for cane forward with RLE. I've been doing it wrong because of the wind and feeling less stable. 1 Description level surface Device Used AFO Level of Assistance CGA, cues Surface indoor carpet, firm Distance/Duration 50ft, 70 ft Treatment Focus gait without device Comments Frequent cues for step length. Two standing rest breaks <5 seconds each. Pt contacted the wall with right hand x 3 PT-OP-R Modalities Start: 05/28/19 08:11 Freq: Status: Active Protocol: Document 12/29/20 10:30 SP (Rec: 12/29/20 11:44 SP [id number]) Electric Stimulation Electric Stimulation Functional Electric Stimulation Body Location L hand/ forearm extensors Duration (Minutes) 2 Patient Position Sitting Comments NMES- education on placement of pad for muscular feedback extension based- check self placement understanding. PT-OP-T Assessment and Plan Start: 05/28/19 08:11 Freq: Status: Active Protocol: Document 08/11/21 09:00 AW (Rec: 08/11/21 10:51 AW [id number]) Physical Therapy Assessment Goals Five Impairment gait speed not adequate for safe community ambulation [facility] Goal (LTG) Patient able to ambulate 300' in 6 min. TUG score no greater than 30 sec 06/02/20: 134' 08/28/20: 144', likely not as high due to new shoes and wearing old AFO because fits better in new shoes. Requires level 4 theraband for derotation of left LE into more neutral position for gait . 09/19/20: 146 ft 6 min w/ QC and Tb wrapping to LLE. 11/13/20: 153 ft CG w/ SPC 2>3 pt gait w/out metronome w/ reported L glut/ lateral leg burn pain, 2 step brief stand breaks. 11/24/20: progressing 173.7 ft using SPC, predominently 2 pt gait. TUG score 59 sec using SP 01/27/21: TUG 55 sec. , 6 min walk test 199.9 ft with SPC 03/19/21: 6 min walk test 165' , TUG 1:20. Continue with use of theraband for derotation of excess ER left LE with gait . 04/16/21: 6MWT 190 ft w/ SPC and TB wrapping assist hip IR. 04/23/21: 6MWT 181 ftw/ SPC and TB wrapping 06/25/21: 6MWT 180 ft with SPC and TB wrapping. TU sec LTG Duration 09/22/21 Four Impairment requires assistance with bed mobility and transfers Short Term Goal (STG) Patient will be able to perform all bed mobility independently to improve her functional independence. 10/31/19: good goal progress 06/02/20:inconsistent, but min assist most times 11/24/20: Met goal: pt is independent in supine>sit. STG Duration goal met ( independent 11/24/20 ) [facility] Goal (LTG) Patient will be able to perform a floor transfer with SB to min assist. 5x sit to stand score in no more than 15 sec as measure of functional strength for transfers 10/31/19: max assist today 01/02/20: has not been willing to try since 10/31/19 06/02/21: does not feel strong enough to try yet. 06/25/21: 08/28/20: max assistance required 12/02/20: remains at max assist , not recently willing to attempt floor transfer. 5x sit to stand score 26 seconds 01/27/21: not tried recently. 03/24/21: 5x sit to stand 25 sec. No floor transfer today 06/25/21: 5x sit to stand 24 sec. Patient didn't feel up to doing floor transfer, remains a concern LTG Duration 09/22/21 Three Impairment weakness left UE and LE s/p CVA [facility] Goal (LTG) Improve functional strength in left LE, as evidenced by ability to move from sit > < stand without use of UE's. 10/31/19: OT starts tomorrow. Good progress with sit to stand, though mostly using right UE and LE 01/02/20: Improving ability to perform, able to increase weight-bearing through left LE with cues, but still some use of right UE 05/26/20: With manual and visual feedback patient able to transfer sit to stand with only CG A. 08/28/20: inconsistent ability to move sit to stand without using UE's, but able to do transfer without physical assistance 11/24/20: Goal Met 01/27/21: more difficulty recently, having to use hands. Goal reactivated. 03/24/21: difficulty motor planning and performing sit to stand today. 06/25/21: patient becomes frustrated with sit to stand transfers as she expresses she feels she has a hard time remembering how to do it, has to use right UE LTG Duration 09/22/21 Two Impairment balance dysfunction with high risk for falls Licensing Representative Goal (LTG) Improve balance as evidenced by improvement in Tinnetti balance and gait score to low fall risk range to improve safety in the home and community. 10/31/19: remains high risk for falls 01/02/20: some improvement but still in high risk category 05/26/20: Tinetti score in high risk category 08/28/20: moderate risk for falls 12/02/20: remains in moderate risk for falls. 01/27/21: moderate risk for falls 03/24/21: no significant change noted today but again having poor day. 06/25/21: Moderate risk for falls, though no reported falls over past few months. LTG Duration 09/22/21 One Impairment requires armaan-walker for gait, limited to household gait Licensing Representative Goal (LTG) Patient able to ambulate with least restrictive device for functional community distances to improve her functional independence and quality of life. 10/30/19: no progress due to Covid 19. 11/02/19: able to ambulate with quad cane but with very slow speed, household distances, very short community distances . 05/26/20: Now able to ambulate with use of single point cane and use of L4 theraband wrapped around left LE to facilitate left LE internal rotation for improved alignment. Patient unable to don the theraband on her own. Gait is for short distances and very slow at 39 ft in 2 min. 08/28/20: has demonstrated improved gait ability, still using theraband for derotation of LE for more neutral position. Able to consistenly use quad cane and is increasing stride length especially with cues. Now able to ascend and descend 4 stairs with min assist using railing. Mod assist on 6 stairs. 12/02/20: Patient ambulating with SPC, mostly household but some community distances, improved gait alignment with use of theraband for improved alignment. Patient not consistently able to ambulate community distances due to pain in her left LE, and lack of neurological control left LE. Patient may benefit from modification to her current AFO or fabrication of new AFO. 173 ft in 6 minutes 01/27/21: using SPC. Limitations due to left foot, knee and hip pain, right wrist pain 6 min walk test improved to 199.9 feet today 03/24/21: slower 6 min walk test today as above. Has had modification to her AFO with some improvement in her function, but had poor day today. 06/25/21: 180' on 6 min walk test, patient reports left knee feeling wonky, and right UE still painful due to surgery' having stitches out today. Also c/o lack of caregiver recently has limited her walking, no outings. Will try again next session. LTG Duration 09/22/21 Assessment Summary Assessment [place] was intensely focused on perceived shortcomings today. PT encouraged a shift toward focus on what she can do today and pointed out that gait without cane is improving with better hip alignment and incrementally improved step length. Physical Therapy Plan Frequency and Duration Frequency of Treatment 2x/Week Duration of Treatment 12 wks Plan of Care Start Date 06/25/21 Plan of Care End Date 09/22/21 Therapeutic Interventions Therapeutic Interventions Aquatic Therapy,Balance Training,Gait Training,Home Exercise Program,Neuromuscular Re-education,Orthotic/ Prosthetic Management,Patient/ Caregiver Education,Self-Care/ Home Management,Taping, Therapeutic Activities, Therapeutic Exercises Modalities Cold Pack/Ice Massage,Hot Packs Next Visit Focus/Plan Next Note Type Treatment Note Next Visit Plan Nex tx: continue uneven surfaces, curb mgt. Floor transfer prep on large black mat. POC: Continue gait training without device as tolerated, functional retraining and neuro re-ed.
--- NOTE | 2021-08-13 11:46 | PT.OTN ---
Current Diagnoses Difficulty in walking, not elsewhere classified (08/13/21) Weakness (08/13/21) History of falling (08/13/21) Physical Therapy Treatment Note PT-OP-A Visit Information Start: 05/28/19 08:11 Freq: Status: Active Protocol: Document 08/13/21 09:48 SAK (Rec: 08/13/21 10:33 [facility] [id number]) Out-Patient Physical Therapy Visit Information Visit Information Visit Type Treatment Note Visit Start Time 09:50 Visit Stop Time 10:30 Total Visit Minutes 40 Visit Number 131 Number of COFFEE SOMMELIER Visits 0 Precautions Precautions Seizure disorder memory dysfunction PT-OP-B Current Condition Start: 05/28/19 08:11 Freq: Status: Active Protocol: Document 06/04/20 11:15 SAK (Rec: 06/05/20 16:34 [facility] [id number]) Current Condition History of Current Condition Onset Date 2014 Current Complaints weakness, requires assistance with all mobility and household tasks History of Current Condition Reports that she suffered a stroke in 2014 after surgery for brain aneurysm. CVA caused weakness on the left side of her body, gait and balance difficulty, seizures. PT-OP-C Subjective Start: 05/28/19 08:11 Freq: Status: Active Protocol: Document 08/13/21 09:48 SAK (Rec: 08/13/21 10:33 [facility] [id number]) OP-PT Subjective Patient Comments Patient Comments Thinking she still has UTI, consulting with doctor. Will try to push through with PT. Discussed continued work on mat as we work toward floor transfer but patient reported she wanted to try to get to the floor for floor transfer. PT-OP-D Balance Start: 05/28/19 08:11 Freq: Status: Active Protocol: Document 05/29/19 14:30 SAK (Rec: 05/30/19 14:24 [facility] [id number]) OP-PT Balance Assessment Sitting Balance Static Sitting Balance Ability Good Dynamic Sitting Balance Ability Fair Standing Balance Static Standing Balance Ability Good Dynamic Standing Balance Ability Fair Device Used hemiwalker right Tinetti Balance Assessment Sitting Balance Sitting Balance Steady, safe Arising from Chair Attempts to Arise Able, requires >1 attempt Standing Balance Immediate Standing Balance Steady with support Standing Balance Steady, wide stance Nudged Response Begins to fall Standing with Eyes Closed Unsteady Turning Step Pattern Turning 360 Degrees Discontinuous steps Stability Turning 360 Degrees Unsteady, grabs/staggers Sitting Down Sitting Down Uses arms or unsteady Gait and Step Initiation of Gait Hesitancy, mult. attempts Right Foot Step Length Does not pass stance ft. Right Foot Step Height Does not clear floor Left Foot Step Length Does not pass stance foot Left Foot Step Height Does not clear floor Step Description Step Symmetry Step length not equal Gait Description Path Description Mild/moderate deviation Trunk Description Marked sway or uses aide Walking Stance Heels apart Scoring and Interpretation Tinetti Composite Score (points) 6 Interpretation of Scores High risk for falls(< 19) Herrera Fall Scale Copyright Permission PT-OP-E Functional Tests Start: 05/28/19 08:11 Freq: Status: Active Protocol: Document 05/14/21 10:50 [facility] (Rec: 05/14/21 11:08 [facility] [id number]) Functional Tests 6 Minute Walk Test Distance 169ft Device Used spc, TB wrapping Comments pt has headache today and feels that may have slowed her down. Timed Up and Go (TUG) Score 107 seconds PT-OP-G Mobility & Gait Start: 05/28/19 08:11 Freq: Status: Active Protocol: Document 05/26/20 11:15 [facility] (Rec: 05/26/20 17:04 [facility] [id number]) OP Mobility Evaluation Bed Mobility Rolling min assist to right CGA to left Supine to and from Sit min assist to right CGA to left Transfers Sit to Stand CGA to min assist without UE use Bed to Chair Transfers requires use of right UE but able to do with SBA Floor Transfers unable PT-OP-H Neuro Start: 05/28/19 08:11 Freq: Status: Active Protocol: Document 05/29/19 14:30 SAK (Rec: 05/30/19 14:24 [facility] [id number]) Sensation Evaluation Gross Sensation Gross Sensation Left UE Impaired,Left LE Impaired Sensation Description Paresthesia,Numbness Coordination Evaluation Lower Extremity Tests Left Alternate Heel to Knee; Heel to Toe Test Moderate Impairment Heel on Boles Test Moderate Impairment Foot Tapping Test Moderate Impairment PT-OP-K Range of Motion Start: 05/28/19 08:11 Freq: Status: Active Protocol: Document 05/26/20 11:15 SAK (Rec: 05/26/20 17:04 [facility] [id number]) Hip Goniometric Range of Motion Hip jkae Hip ROM WFL Yes Comments actively right LE, passively left LE Knee Goniometric Range of Motion Knee jake Knee ROM WFL Yes Ankle and Foot Goniometric Range of Motion Ankle and Foot Left Passive Ankle/Foot ROM WFL No Left Active Ankle/Foot ROM WFL No PT-OP-M Strength Start: 05/28/19 08:11 Freq: Status: Active Protocol: Document 05/26/20 11:15 [facility] (Rec: 05/26/20 17:04 [facility] [id number]) Hip Strength Hip Manual Muscle Testing Left Flexion (L2) 3- Fair- Extension (S1) 2 Poor Abduction 2+ Poor+ External Rotation 3- Fair- Internal Rotation 3+ Fair+ Right Flexion (L2) 4 Good Extension (S1) 4- Good- Abduction 4 Good External Rotation 3+ Fair+ Internal Rotation 4- Good- PT-OP-Q Treatments Start: 05/28/19 08:11 Freq: Status: Active Protocol: Document 08/13/21 09:48 [facility] (Rec: 08/13/21 10:33 [facility] [id number]) Therapeutic Activity Therapeutic Activity floor transfer Reps/Minutes 30 min Comments Yoga mat on floor, step block beside mat table. Discussion of safe methods for getting down to floor then back up. Pt. transferred sit on edge of mat to floor with min assist, using block steps to lower to bottom step then floor toward right side, then max assist for positioning of left LE for comfort into sitting. While pt resting on floor PT reviewed potential methods for getting up, patient verbalized understanding but also reported she used to do it differently, she was encouraged to try her own method. Pt method was unsuccessful and was taking her further away from the mat; difficulty with motor planning. Pt assisted with mod+ assist into kneeling position, then 1/2 kneeling with right leg forward, then 2 trials with max assist to transfer kneeling to treatment table with right leg and arm toward table, lifting toward right sidelying, then supine, and up to sit. Patient needed much encouragement due to anxiety and difficulty of activity with her lack of ability to motor plan activity . Gait Training Gait Activity 1 Description level surface Device Used AFO Level of Assistance CGA, cues Surface indoor carpet, linoleum, firm Distance/Duration 120 ft ft Treatment Focus gait without device Comments Frequent cues for step length, no contacting wall for stabilization, noted improved step length right. PT-OP-R Modalities Start: 05/28/19 08:11 Freq: Status: Active Protocol: Document 12/29/20 10:30 SP (Rec: 12/29/20 11:44 [facility] [id number]) Electric Stimulation Electric Stimulation Functional Electric Stimulation Body Location L hand/ forearm extensors Duration (Minutes) 2 Patient Position Sitting Comments NMES- education on placement of pad for muscular feedback extension based- check self placement understanding. PT-OP-T Assessment and Plan Start: 05/28/19 08:11 Freq: Status: Active Protocol: Document 08/13/21 09:48 SAK (Rec: 08/13/21 10:33 [facility] [id number]) Physical Therapy Assessment Goals Five Impairment gait speed not adequate for safe community ambulation Case Liner Goal (LTG) Patient able to ambulate 300' in 6 min. TUG score no greater than 30 sec 06/02/20: 134' 08/28/20: 144', likely not as high due to new shoes and wearing old AFO because fits better in new shoes. Requires level 4 theraband for derotation of left LE into more neutral position for gait . 09/19/20: 146 ft 6 min w/ QC and Tb wrapping to LLE. 11/13/20: 153 ft CG w/ SPC 2>3 pt gait w/out metronome w/ reported L glut/ lateral leg burn pain, 2 step brief stand breaks. 11/24/20: progressing 173.7 ft using SPC, predominently 2 pt gait. TUG score 59 sec using SP 01/27/21: TUG 55 sec. , 6 min walk test 199.9 ft with SPC 03/19/21: 6 min walk test 165' , TUG 1:20. Continue with use of theraband for derotation of excess ER left LE with gait . 04/16/21: 6MWT 190 ft w/ SPC and TB wrapping assist hip IR. 04/23/21: 6MWT 181 ftw/ SPC and TB wrapping 06/25/21: 6MWT 180 ft with SPC and TB wrapping. TU sec LTG Duration 09/22/21 Four Impairment requires assistance with bed mobility and transfers Short Term Goal (STG) Patient will be able to perform all bed mobility independently to improve her functional independence. 10/31/19: good goal progress 06/02/20:inconsistent, but min assist most times 11/24/20: Met goal: pt is independent in supine>sit. STG Duration goal met ( independent 11/24/20 ) Case Liner Goal (LTG) Patient will be able to perform a floor transfer with SB to min assist. 5x sit to stand score in no more than 15 sec as measure of functional strength for transfers 10/31/19: max assist today 01/02/20: has not been willing to try since 10/31/19 06/02/21: does not feel strong enough to try yet. 06/25/21: 08/28/20: max assistance required 12/02/20: remains at max assist , not recently willing to attempt floor transfer. 5x sit to stand score 26 seconds 01/27/21: not tried recently. 03/24/21: 5x sit to stand 25 sec. No floor transfer today 06/25/21: 5x sit to stand 24 sec. Patient didn't feel up to doing floor transfer, remains a concern LTG Duration 09/22/21 Three Impairment weakness left UE and LE s/p CVA Case Liner Goal (LTG) Improve functional strength in left LE, as evidenced by ability to move from sit > < stand without use of UE's. 10/31/19: OT starts tomorrow. Good progress with sit to stand, though mostly using right UE and LE 01/02/20: Improving ability to perform, able to increase weight-bearing through left LE with cues, but still some use of right UE 05/26/20: With manual and visual feedback patient able to transfer sit to stand with only CG A. 08/28/20: inconsistent ability to move sit to stand without using UE's, but able to do transfer without physical assistance 11/24/20: Goal Met 01/27/21: more difficulty recently, having to use hands. Goal reactivated. 03/24/21: difficulty motor planning and performing sit to stand today. 06/25/21: patient becomes frustrated with sit to stand transfers as she expresses she feels she has a hard time remembering how to do it, has to use right UE LTG Duration 09/22/21 Two Impairment balance dysfunction with high risk for falls Case Liner Goal (LTG) Improve balance as evidenced by improvement in Tinnetti balance and gait score to low fall risk range to improve safety in the home and community. 10/31/19: remains high risk for falls 01/02/20: some improvement but still in high risk category 05/26/20: Tinetti score in high risk category 08/28/20: moderate risk for falls 12/02/20: remains in moderate risk for falls. 01/27/21: moderate risk for falls 03/24/21: no significant change noted today but again having poor day. 06/25/21: Moderate risk for falls, though no reported falls over past few months. LTG Duration 09/22/21 One Impairment requires armaan-walker for gait, limited to household gait Case Liner Goal (LTG) Patient able to ambulate with least restrictive device for functional community distances to improve her functional independence and quality of life. 10/30/19: no progress due to Covid 19. 11/02/19: able to ambulate with quad cane but with very slow speed, household distances, very short community distances . 05/26/20: Now able to ambulate with use of single point cane and use of L4 theraband wrapped around left LE to facilitate left LE internal rotation for improved alignment. Patient unable to don the theraband on her own. Gait is for short distances and very slow at 39 ft in 2 min. 08/28/20: has demonstrated improved gait ability, still using theraband for derotation of LE for more neutral position. Able to consistenly use quad cane and is increasing stride length especially with cues. Now able to ascend and descend 4 stairs with min assist using railing. Mod assist on 6 stairs. 12/02/20: Patient ambulating with SPC, mostly household but some community distances, improved gait alignment with use of theraband for improved alignment. Patient not consistently able to ambulate community distances due to pain in her left LE, and lack of neurological control left LE. Patient may benefit from modification to her current AFO or fabrication of new AFO. 173 ft in 6 minutes 01/27/21: using SPC. Limitations due to left foot, knee and hip pain, right wrist pain 6 min walk test improved to 199.9 feet today 03/24/21: slower 6 min walk test today as above. Has had modification to her AFO with some improvement in her function, but had poor day today. 06/25/21: 180' on 6 min walk test, patient reports left knee feeling wonky, and right UE still painful due to surgery' having stitches out today. Also c/o lack of caregiver recently has limited her walking, no outings. Will try again next session. LTG Duration 09/22/21 Assessment Summary Assessment Improved gait today with patient not contacting wall for balance during gait 120 ft , no device at beginning of treatment. Floor transfer performed after extensive discussion of method. Pt. exhibited poor ability to motor plan activity, and high anxiety level. Transfer to floor required min assist and cues, but transfer floor to table required max assist and much encouragement and assist with planning and performance of activity as above. After transfer discussed options for ther ex to work on difficult aspects of the transfer. She was very fatigued after transfer and requested w/c assist back to the car with caregiver providing that assistance. Physical Therapy Plan Frequency and Duration Frequency of Treatment 2x/Week Duration of Treatment 12 wks Plan of Care Start Date 06/25/21 Plan of Care End Date 09/22/21 Therapeutic Interventions Therapeutic Interventions Aquatic Therapy,Balance Training,Gait Training,Home Exercise Program,Neuromuscular Re-education,Orthotic/ Prosthetic Management,Patient/ Caregiver Education,Self-Care/ Home Management,Taping, Therapeutic Activities, Therapeutic Exercises Modalities Cold Pack/Ice Massage,Hot Packs Next Visit Focus/Plan Next Note Type Treatment Note Next Visit Plan Assess response to floor transfer, work on lunges beside table, sitting to kneeling on large treatment table. Continue gait training on level and uneven surfaces.
--- NOTE | 2021-08-18 09:37 | PT-OP ANOTE ---
cancelled due to feeling ill
--- NOTE | 2021-08-20 12:05 | PT.OTN ---
Current Diagnoses Difficulty in walking, not elsewhere classified (08/20/21) Weakness (08/20/21) History of falling (08/20/21) Physical Therapy Treatment Note PT-OP-A Visit Information Start: 05/28/19 08:11 Freq: Status: Active Protocol: Document 08/20/21 09:57 SAK (Rec: 08/20/21 10:32 [facility] [id number]) Out-Patient Physical Therapy Visit Information Visit Information Visit Type Treatment Note Visit Note 18 min late Visit Start Time 09:58 Visit Stop Time 10:30 Total Visit Minutes 32 Visit Number 132 Precautions Precautions Seizure disorder memory dysfunction PT-OP-B Current Condition Start: 05/28/19 08:11 Freq: Status: Active Protocol: Document 06/04/20 11:15 SAK (Rec: 06/05/20 16:34 [facility] [id number]) Current Condition History of Current Condition Onset Date 2014 Current Complaints weakness, requires assistance with all mobility and household tasks History of Current Condition Reports that she suffered a stroke in 2014 after surgery for brain aneurysm. CVA caused weakness on the left side of her body, gait and balance difficulty, seizures. PT-OP-C Subjective Start: 05/28/19 08:11 Freq: Status: Active Protocol: Document 08/20/21 09:57 SAK (Rec: 08/20/21 10:32 [facility] [id number]) OP-PT Subjective Patient Comments Patient Comments [place] very sore after doing floor transfer. Caregiver present, wants some review on doing LE stretches with patient. PT-OP-D Balance Start: 05/28/19 08:11 Freq: Status: Active Protocol: Document 05/29/19 14:30 SAK (Rec: 05/30/19 14:24 [facility] [id number]) OP-PT Balance Assessment Sitting Balance Static Sitting Balance Ability Good Dynamic Sitting Balance Ability Fair Standing Balance Static Standing Balance Ability Good Dynamic Standing Balance Ability Fair Device Used hemiwalker right Tinetti Balance Assessment Sitting Balance Sitting Balance Steady, safe Arising from Chair Attempts to Arise Able, requires >1 attempt Standing Balance Immediate Standing Balance Steady with support Standing Balance Steady, wide stance Nudged Response Begins to fall Standing with Eyes Closed Unsteady Turning Step Pattern Turning 360 Degrees Discontinuous steps Stability Turning 360 Degrees Unsteady, grabs/staggers Sitting Down Sitting Down Uses arms or unsteady Gait and Step Initiation of Gait Hesitancy, mult. attempts Right Foot Step Length Does not pass stance ft. Right Foot Step Height Does not clear floor Left Foot Step Length Does not pass stance foot Left Foot Step Height Does not clear floor Step Description Step Symmetry Step length not equal Gait Description Path Description Mild/moderate deviation Trunk Description Marked sway or uses aide Walking Stance Heels apart Scoring and Interpretation Tinetti Composite Score (points) 6 Interpretation of Scores High risk for falls(< 19) Herrera Fall Scale Copyright Permission PT-OP-E Functional Tests Start: 05/28/19 08:11 Freq: Status: Active Protocol: Document 05/14/21 10:50 [facility] (Rec: 05/14/21 11:08 [facility] [id number]) Functional Tests 6 Minute Walk Test Distance 169ft Device Used spc, TB wrapping Comments pt has headache today and feels that may have slowed her down. Timed Up and Go (TUG) Score 107 seconds PT-OP-G Mobility & Gait Start: 05/28/19 08:11 Freq: Status: Active Protocol: Document 05/26/20 11:15 SAK (Rec: 05/26/20 17:04 [facility] [id number]) OP Mobility Evaluation Bed Mobility Rolling min assist to right CGA to left Supine to and from Sit min assist to right CGA to left Transfers Sit to Stand CGA to min assist without UE use Bed to Chair Transfers requires use of right UE but able to do with SBA Floor Transfers unable PT-OP-H Neuro Start: 05/28/19 08:11 Freq: Status: Active Protocol: Document 05/29/19 14:30 SAK (Rec: 05/30/19 14:24 [facility] [id number]) Sensation Evaluation Gross Sensation Gross Sensation Left UE Impaired,Left LE Impaired Sensation Description Paresthesia,Numbness Coordination Evaluation Lower Extremity Tests Left Alternate Heel to Knee; Heel to Toe Test Moderate Impairment Heel on Boles Test Moderate Impairment Foot Tapping Test Moderate Impairment PT-OP-K Range of Motion Start: 05/28/19 08:11 Freq: Status: Active Protocol: Document 05/26/20 11:15 SAK (Rec: 05/26/20 17:04 [facility] [id number]) Hip Goniometric Range of Motion Hip jake Hip ROM WFL Yes Comments actively right LE, passively left LE Knee Goniometric Range of Motion Knee jake Knee ROM WFL Yes Ankle and Foot Goniometric Range of Motion Ankle and Foot Left Passive Ankle/Foot ROM WFL No Left Active Ankle/Foot ROM WFL No PT-OP-M Strength Start: 05/28/19 08:11 Freq: Status: Active Protocol: Document 05/26/20 11:15 [facility] (Rec: 05/26/20 17:04 [facility] [id number]) Hip Strength Hip Manual Muscle Testing Left Flexion (L2) 3- Fair- Extension (S1) 2 Poor Abduction 2+ Poor+ External Rotation 3- Fair- Internal Rotation 3+ Fair+ Right Flexion (L2) 4 Good Extension (S1) 4- Good- Abduction 4 Good External Rotation 3+ Fair+ Internal Rotation 4- Good- PT-OP-Q Treatments Start: 05/28/19 08:11 Freq: Status: Active Protocol: Document 08/21/21 09:57 [facility] (Rec: 08/21/21 12:05 [facility] [id number]) Cardio Equipment Recumbent Stepper (Sci-Fit) Other not done, time constraints Therapeutic Exercises Sitting Exercises HS stretch Reps/Minutes 2x30 Comments manual HC stretch Side left Resistance AAROM Equipment Used manual and demonstrates use mesh chair w/ hip hinge forward self Reps/Minutes 30 x 3 Comments manual, review discussion with pt and caregiver. glut stretch Sitting Exercise Name R UE support RLE over LLE Reps/Minutes 30 x2 Comments cradle knee toward chest Standing Exercises split squats Reps/Minutes 10x squats Reps/Minutes 10x Gait Training Gait Activity parallel bars Description forward, back, Device Used //bar mostly no UE support, occasional light touch support , AFO Surface firm Distance/Duration 3x each direction Treatment Focus neutral alignment, weight- shift over LLE required verbal sequencing Comments No theraband wrap on LE. Used mirror for visual feedback fwd /bwd and pt was able to improve LLE weight shift. pre-gait weight shifts Description side to side (AFO doffed) Device Used //bars PRN Level of Assistance CG, verbal cues Surface firm Distance/Duration rail on R Treatment Focus increased weight bearing left LE (cued >50-75%) Comments mirror for visual feedback 1 Description level surface Device Used AFO Level of Assistance CGA, cues Surface indoor carpet, linoleum, firm Distance/Duration 100 ft ft Treatment Focus gait without device Comments Frequent cues for step length, no contacting wall for stabilization, noted improved step length right. PT-OP-R Modalities Start: 05/28/19 08:11 Freq: Status: Active Protocol: Document 12/29/20 10:30 SP (Rec: 12/29/20 11:44 SP [id number]) Electric Stimulation Electric Stimulation Functional Electric Stimulation Body Location L hand/ forearm extensors Duration (Minutes) 2 Patient Position Sitting Comments NMES- education on placement of pad for muscular feedback extension based- check self placement understanding. PT-OP-T Assessment and Plan Start: 05/28/19 08:11 Freq: Status: Active Protocol: Document 08/20/21 09:57 SAK (Rec: 08/20/21 10:32 [facility] [id number]) Physical Therapy Assessment Goals Five Impairment gait speed not adequate for safe community ambulation Mcfp Goal (LTG) Patient able to ambulate 300' in 6 min. TUG score no greater than 30 sec 06/02/20: 134' 08/28/20: 144', likely not as high due to new shoes and wearing old AFO because fits better in new shoes. Requires level 4 theraband for derotation of left LE into more neutral position for gait . 09/19/20: 146 ft 6 min w/ QC and Tb wrapping to LLE. 11/13/20: 153 ft CG w/ SPC 2>3 pt gait w/out metronome w/ reported L glut/ lateral leg burn pain, 2 step brief stand breaks. 11/24/20: progressing 173.7 ft using SPC, predominently 2 pt gait. TUG score 59 sec using SP 01/27/21: TUG 55 sec. , 6 min walk test 199.9 ft with SPC 03/19/21: 6 min walk test 165' , TUG 1:20. Continue with use of theraband for derotation of excess ER left LE with gait . 04/16/21: 6MWT 190 ft w/ SPC and TB wrapping assist hip IR. 04/23/21: 6MWT 181 ftw/ SPC and TB wrapping 06/25/21: 6MWT 180 ft with SPC and TB wrapping. TU sec LTG Duration 09/22/21 Four Impairment requires assistance with bed mobility and transfers Short Term Goal (STG) Patient will be able to perform all bed mobility independently to improve her functional independence. 10/31/19: good goal progress 06/02/20:inconsistent, but min assist most times 11/24/20: Met goal: pt is independent in supine>sit. STG Duration goal met ( independent 11/24/20 ) Mcfp Goal (LTG) Patient will be able to perform a floor transfer with SB to min assist. 5x sit to stand score in no more than 15 sec as measure of functional strength for transfers 10/31/19: max assist today 01/02/20: has not been willing to try since 10/31/19 06/02/21: does not feel strong enough to try yet. 06/25/21: 08/28/20: max assistance required 12/02/20: remains at max assist , not recently willing to attempt floor transfer. 5x sit to stand score 26 seconds 01/27/21: not tried recently. 03/24/21: 5x sit to stand 25 sec. No floor transfer today 06/25/21: 5x sit to stand 24 sec. Patient didn't feel up to doing floor transfer, remains a concern LTG Duration 09/22/21 Three Impairment weakness left UE and LE s/p CVA Mcfp Goal (LTG) Improve functional strength in left LE, as evidenced by ability to move from sit > < stand without use of UE's. 10/31/19: OT starts tomorrow. Good progress with sit to stand, though mostly using right UE and LE 01/02/20: Improving ability to perform, able to increase weight-bearing through left LE with cues, but still some use of right UE 05/26/20: With manual and visual feedback patient able to transfer sit to stand with only CG A. 08/28/20: inconsistent ability to move sit to stand without using UE's, but able to do transfer without physical assistance 11/24/20: Goal Met 01/27/21: more difficulty recently, having to use hands. Goal reactivated. 03/24/21: difficulty motor planning and performing sit to stand today. 06/25/21: patient becomes frustrated with sit to stand transfers as she expresses she feels she has a hard time remembering how to do it, has to use right UE LTG Duration 09/22/21 Two Impairment balance dysfunction with high risk for falls Mcfp Goal (LTG) Improve balance as evidenced by improvement in Tinnetti balance and gait score to low fall risk range to improve safety in the home and community. 10/31/19: remains high risk for falls 01/02/20: some improvement but still in high risk category 05/26/20: Tinetti score in high risk category 08/28/20: moderate risk for falls 12/02/20: remains in moderate risk for falls. 01/27/21: moderate risk for falls 03/24/21: no significant change noted today but again having poor day. 06/25/21: Moderate risk for falls, though no reported falls over past few months. LTG Duration 09/22/21 One Impairment requires armaan-walker for gait, limited to household gait Direct Marketing Executive Goal (LTG) Patient able to ambulate with least restrictive device for functional community distances to improve her functional independence and quality of life. 10/30/19: no progress due to Covid 19. 11/02/19: able to ambulate with quad cane but with very slow speed, household distances, very short community distances . 05/26/20: Now able to ambulate with use of single point cane and use of L4 theraband wrapped around left LE to facilitate left LE internal rotation for improved alignment. Patient unable to don the theraband on her own. Gait is for short distances and very slow at 39 ft in 2 min. 08/28/20: has demonstrated improved gait ability, still using theraband for derotation of LE for more neutral position. Able to consistenly use quad cane and is increasing stride length especially with cues. Now able to ascend and descend 4 stairs with min assist using railing. Mod assist on 6 stairs. 12/02/20: Patient ambulating with SPC, mostly household but some community distances, improved gait alignment with use of theraband for improved alignment. Patient not consistently able to ambulate community distances due to pain in her left LE, and lack of neurological control left LE. Patient may benefit from modification to her current AFO or fabrication of new AFO. 173 ft in 6 minutes 01/27/21: using SPC. Limitations due to left foot, knee and hip pain, right wrist pain 6 min walk test improved to 199.9 feet today 03/24/21: slower 6 min walk test today as above. Has had modification to her AFO with some improvement in her function, but had poor day today. 2/17/22: 180' on 6 min walk test, patient reports left knee feeling wonky, and right UE still painful due to surgery' having stitches out today. Also c/o lack of caregiver recently has limited her walking, no outings. Will try again next session. LTG Duration 09/22/21 Assessment Summary Assessment Caregiver improving in understanding of LE stretches for HEP. Adelaide was fatigued and sore after floor transfer last week, has been doing more squats for strengthening. Fair tolerance for split squats today. Gait without device required 3 touches to wall for 100 ft today. Patient late so shorter PT treatment. Physical Therapy Plan Frequency and Duration Frequency of Treatment 2x/Week Duration of Treatment 12 wks Plan of Care Start Date 06/25/21 Plan of Care End Date 09/22/21 Therapeutic Interventions Therapeutic Interventions Aquatic Therapy,Balance Training,Gait Training,Home Exercise Program,Neuromuscular Re-education,Orthotic/ Prosthetic Management,Patient/ Caregiver Education,Self-Care/ Home Management,Taping, Therapeutic Activities, Therapeutic Exercises Modalities Cold Pack/Ice Massage,Hot Packs Next Visit Focus/Plan Next Note Type Treatment Note Next Visit Plan Continue incrementally working toward floor transfer with exercises breaking down the movement. Kneeling activities on black hi-lo table for strengthening and work toward floor transfer.
--- NOTE | 2021-08-25 10:38 | PT.OTN ---
Current Diagnoses Difficulty in walking, not elsewhere classified (08/25/21) Weakness (08/25/21) History of falling (08/25/21) Physical Therapy Treatment Note PT-OP-A Visit Information Start: 05/28/19 08:11 Freq: Status: Active Protocol: Document 08/25/21 09:47 SAK (Rec: 08/25/21 10:38 [facility] [id number]) Out-Patient Physical Therapy Visit Information Visit Information Visit Type Treatment Note Visit Note 18 min late Visit Start Time 09:58 Visit Stop Time 10:30 Total Visit Minutes 33 Visit Number 133 Precautions Precautions Seizure disorder memory dysfunction PT-OP-B Current Condition Start: 05/28/19 08:11 Freq: Status: Active Protocol: Document 06/04/20 11:15 SAK (Rec: 06/05/20 16:34 SAK [id number]) Current Condition History of Current Condition Onset Date 2014 Current Complaints weakness, requires assistance with all mobility and household tasks History of Current Condition Reports that she suffered a stroke in 2014 after surgery for brain aneurysm. CVA caused weakness on the left side of her body, gait and balance difficulty, seizures. PT-OP-C Subjective Start: 05/28/19 08:11 Freq: Status: Active Protocol: Document 08/25/21 09:47 SAK (Rec: 08/25/21 10:38 [facility] [id number]) OP-PT Subjective Patient Comments Patient Comments Found out she is making crystals in her bladder, that may be what is causing her abdominal pain. Needs to discuss with her doctor. Hasn 't been using e-stim unit recently because didn't feel like it was helping. Has been doing more squats as instructed. Feeling very tired today. PT-OP-D Balance Start: 05/28/19 08:11 Freq: Status: Active Protocol: Document 05/29/19 14:30 SAK (Rec: 05/30/19 14:24 SAK [id number]) OP-PT Balance Assessment Sitting Balance Static Sitting Balance Ability Good Dynamic Sitting Balance Ability Fair Standing Balance Static Standing Balance Ability Good Dynamic Standing Balance Ability Fair Device Used [facility] right Tinetti Balance Assessment Sitting Balance Sitting Balance Steady, safe Arising from Chair Attempts to Arise Able, requires >1 attempt Standing Balance Immediate Standing Balance Steady with support Standing Balance Steady, wide stance Nudged Response Begins to fall Standing with Eyes Closed Unsteady Turning Step Pattern Turning 360 Degrees Discontinuous steps Stability Turning 360 Degrees Unsteady, grabs/staggers Sitting Down Sitting Down Uses arms or unsteady Gait and Step Initiation of Gait Hesitancy, mult. attempts Right Foot Step Length Does not pass stance ft. Right Foot Step Height Does not clear floor Left Foot Step Length Does not pass stance foot Left Foot Step Height Does not clear floor Step Description Step Symmetry Step length not equal Gait Description Path Description Mild/moderate deviation Trunk Description Marked sway or uses aide Walking Stance Heels apart Scoring and Interpretation Tinetti Composite Score (points) 6 Interpretation of Scores High risk for falls(< 19) Herrear Fall Scale Copyright Permission PT-OP-E Functional Tests Start: 05/28/19 08:11 Freq: Status: Active Protocol: Document 05/14/21 10:50 [facility] (Rec: 05/14/21 11:08 [facility] [id number]) Functional Tests 6 Minute Walk Test Distance 169ft Device Used spc, TB wrapping Comments pt has headache today and feels that may have slowed her down. Timed Up and Go (TUG) Score 107 seconds PT-OP-G Mobility & Gait Start: 05/28/19 08:11 Freq: Status: Active Protocol: Document 05/26/20 11:15 SAK (Rec: 05/26/20 17:04 SAK [id number]) OP Mobility Evaluation Bed Mobility Rolling min assist to right CGA to left Supine to and from Sit min assist to right CGA to left Transfers Sit to Stand CGA to min assist without UE use Bed to Chair Transfers requires use of right UE but able to do with SBA Floor Transfers unable PT-OP-H Neuro Start: 05/28/19 08:11 Freq: Status: Active Protocol: Document 05/29/19 14:30 SAK (Rec: 05/30/19 14:24 SAK [id number]) Sensation Evaluation Gross Sensation Gross Sensation Left UE Impaired,Left LE Impaired Sensation Description Paresthesia,Numbness Coordination Evaluation Lower Extremity Tests Left Alternate Heel to Knee; Heel to Toe Test Moderate Impairment Heel on Boles Test Moderate Impairment Foot Tapping Test Moderate Impairment PT-OP-K Range of Motion Start: 05/28/19 08:11 Freq: Status: Active Protocol: Document 05/26/20 11:15 SAK (Rec: 05/26/20 17:04 SAK [id number]) Hip Goniometric Range of Motion Hip jake Hip ROM WFL Yes Comments actively right LE, passively left LE Knee Goniometric Range of Motion Knee jake Knee ROM WFL Yes Ankle and Foot Goniometric Range of Motion Ankle and Foot Left Passive Ankle/Foot ROM WFL No Left Active Ankle/Foot ROM WFL No PT-OP-M Strength Start: 05/28/19 08:11 Freq: Status: Active Protocol: Document 05/26/20 11:15 [facility] (Rec: 05/26/20 17:04 [facility] [id number]) Hip Strength Hip Manual Muscle Testing Left Flexion (L2) 3- Fair- Extension (S1) 2 Poor Abduction 2+ Poor+ External Rotation 3- Fair- Internal Rotation 3+ Fair+ Right Flexion (L2) 4 Good Extension (S1) 4- Good- Abduction 4 Good External Rotation 3+ Fair+ Internal Rotation 4- Good- PT-OP-Q Treatments Start: 05/28/19 08:11 Freq: Status: Active Protocol: Document 08/25/21 09:47 [facility] (Rec: 08/25/21 10:38 [facility] [id number]) Cardio Equipment Recumbent Stepper (Sci-Fit) Duration (Minutes) 10 Resistance 2 Seat Position 11 Therapeutic Exercises Sitting Exercises pirifomis stretch Reps/Minutes 2x30 HS stretch Reps/Minutes 2x30 Comments manual HC stretch Side left Resistance AAROM Equipment Used manual and demonstrates use mesh chair w/ hip hinge forward self Reps/Minutes 30 x 3 Comments manual, review discussion with pt and caregiver. glut stretch Sitting Exercise Name R UE support RLE over LLE Reps/Minutes 30 x2 Comments cradle knee toward chest Standing Exercises resisted standing Equipment Used mirror for visual feedback Reps/Minutes 5 min Comments PT providing push to right to encourage patient inc wt bearing to left squats Reps/Minutes 10x Therapeutic Activity Therapeutic Activity pre-gait wt shifts, steps Comments mirror for visual feedback, no UE support; cues for weight shift left with some manual resistance Gait Training Gait Activity backward Device Used none Level of Assistance CGA Distance/Duration 6'x2 Treatment Focus decreased support, gluteal activation Comments mirror for visual feedback. uneven Description uneven Device Used AFO, no cane Level of Assistance CGA Surface red yoga mat Distance/Duration x 1 laps Treatment Focus weight shift, step length, safety pre-gait weight shifts Description side to side (AFO doffed) Device Used none Level of Assistance CG, verbal cues Surface firm Distance/Duration rail on R Treatment Focus increased weight bearing left LE (cued >50-75%) Comments mirror for visual feedback 1 Description level surface Device Used AFO Level of Assistance CGA, cues Surface indoor carpet, linoleum, firm Distance/Duration 75, 30,30 ft ft Treatment Focus gait without device Comments Frequent cues for step length, no contacting wall for stabilization, noted improved step length right. PT-OP-R Modalities Start: 05/28/19 08:11 Freq: Status: Active Protocol: Document 12/29/20 10:30 SP (Rec: 12/29/20 11:44 SP [id number]) Electric Stimulation Electric Stimulation Functional Electric Stimulation Body Location L hand/ forearm extensors Duration (Minutes) 2 Patient Position Sitting Comments NMES- education on placement of pad for muscular feedback extension based- check self placement understanding. PT-OP-T Assessment and Plan Start: 05/28/19 08:11 Freq: Status: Active Protocol: Document 08/25/21 09:47 SAK (Rec: 08/25/21 10:38 SAK [id number]) Physical Therapy Assessment Goals Five Impairment gait speed not adequate for safe community ambulation Mcfp Goal (LTG) Patient able to ambulate 300' in 6 min. TUG score no greater than 30 sec 06/02/20: 134' 08/28/20: 144', likely not as high due to new shoes and wearing old AFO because fits better in new shoes. Requires level 4 theraband for derotation of left LE into more neutral position for gait . 09/19/20: 146 ft 6 min w/ QC and Tb wrapping to LLE. 11/13/20: 153 ft CG w/ SPC 2>3 pt gait w/out metronome w/ reported L glut/ lateral leg burn pain, 2 step brief stand breaks. 11/24/20: progressing 173.7 ft using SPC, predominently 2 pt gait. TUG score 59 sec using SP 01/27/21: TUG 55 sec. , 6 min walk test 199.9 ft with SPC 03/19/21: 6 min walk test 165' , TUG 1:20. Continue with use of theraband for derotation of excess ER left LE with gait . 04/16/21: 6MWT 190 ft w/ SPC and TB wrapping assist hip IR. 04/23/21: 6MWT 181 ftw/ SPC and TB wrapping 06/25/21: 6MWT 180 ft with SPC and TB wrapping. TU sec LTG Duration 09/22/21 Four Impairment requires assistance with bed mobility and transfers Short Term Goal (STG) Patient will be able to perform all bed mobility independently to improve her functional independence. 10/31/19: good goal progress 06/02/20:inconsistent, but min assist most times 11/24/20: Met goal: pt is independent in supine>sit. STG Duration goal met ( independent 11/24/20 ) Equipment Man Goal (LTG) Patient will be able to perform a floor transfer with SB to min assist. 5x sit to stand score in no more than 15 sec as measure of functional strength for transfers 10/31/19: max assist today 01/02/20: has not been willing to try since 10/31/19 06/02/21: does not feel strong enough to try yet. 06/25/21: 08/28/20: max assistance required 12/02/20: remains at max assist , not recently willing to attempt floor transfer. 5x sit to stand score 26 seconds 01/27/21: not tried recently. 03/24/21: 5x sit to stand 25 sec. No floor transfer today 06/25/21: 5x sit to stand 24 sec. Patient didn't feel up to doing floor transfer, remains a concern LTG Duration 09/22/21 Three Impairment weakness left UE and LE s/p CVA Equipment Man Goal (LTG) Improve functional strength in left LE, as evidenced by ability to move from sit > < stand without use of UE's. 10/31/19: OT starts tomorrow. Good progress with sit to stand, though mostly using right UE and LE 01/02/20: Improving ability to perform, able to increase weight-bearing through left LE with cues, but still some use of right UE 05/26/20: With manual and visual feedback patient able to transfer sit to stand with only CG A. 08/28/20: inconsistent ability to move sit to stand without using UE's, but able to do transfer without physical assistance 11/24/20: Goal Met 01/27/21: more difficulty recently, having to use hands. Goal reactivated. 03/24/21: difficulty motor planning and performing sit to stand today. 06/25/21: patient becomes frustrated with sit to stand transfers as she expresses she feels she has a hard time remembering how to do it, has to use right UE LTG Duration 09/22/21 Two Impairment balance dysfunction with high risk for falls Equipment Man Goal (LTG) Improve balance as evidenced by improvement in Tinnetti balance and gait score to low fall risk range to improve safety in the home and community. 10/31/19: remains high risk for falls 01/02/20: some improvement but still in high risk category 05/26/20: Tinetti score in high risk category 08/28/20: moderate risk for falls 12/02/20: remains in moderate risk for falls. 01/27/21: moderate risk for falls 03/24/21: no significant change noted today but again having poor day. 06/25/21: Moderate risk for falls, though no reported falls over past few months. LTG Duration 09/22/21 One Impairment requires armaan-walker for gait, limited to household gait Mcfp Goal (LTG) Patient able to ambulate with least restrictive device for functional community distances to improve her functional independence and quality of life. 10/30/19: no progress due to Covid 19. 11/02/19: able to ambulate with quad cane but with very slow speed, household distances, very short community distances . 05/26/20: Now able to ambulate with use of single point cane and use of L4 theraband wrapped around left LE to facilitate left LE internal rotation for improved alignment. Patient unable to don the theraband on her own. Gait is for short distances and very slow at 39 ft in 2 min. 08/28/20: has demonstrated improved gait ability, still using theraband for derotation of LE for more neutral position. Able to consistenly use quad cane and is increasing stride length especially with cues. Now able to ascend and descend 4 stairs with min assist using railing. Mod assist on 6 stairs. 12/02/20: Patient ambulating with SPC, mostly household but some community distances, improved gait alignment with use of theraband for improved alignment. Patient not consistently able to ambulate community distances due to pain in her left LE, and lack of neurological control left LE. Patient may benefit from modification to her current AFO or fabrication of new AFO. 173 ft in 6 minutes 01/27/21: using SPC. Limitations due to left foot, knee and hip pain, right wrist pain 6 min walk test improved to 199.9 feet today 03/24/21: slower 6 min walk test today as above. Has had modification to her AFO with some improvement in her function, but had poor day today. 06/25/21: 180' on 6 min walk test, patient reports left knee feeling wonky, and right UE still painful due to surgery' having stitches out today. Also c/o lack of caregiver recently has limited her walking, no outings. Will try again next session. LTG Duration 09/22/21 Assessment Summary Assessment Patient initially c/o fatigue, stiffness, but after initial walk and stretching in sitting patient demonstrating improved gait without device, improved weight-shift to her left, and ability to walk backwards outside of the parallel bars. Physical Therapy Plan Frequency and Duration Frequency of Treatment 2x/Week Duration of Treatment 12 wks Plan of Care Start Date 06/25/21 Plan of Care End Date 09/22/21 Therapeutic Interventions Therapeutic Interventions Aquatic Therapy,Balance Training,Gait Training,Home Exercise Program,Neuromuscular Re-education,Orthotic/ Prosthetic Management,Patient/ Caregiver Education,Self-Care/ Home Management,Taping, Therapeutic Activities, Therapeutic Exercises Modalities Cold Pack/Ice Massage,Hot Packs Next Visit Focus/Plan Next Note Type Treatment Note Next Visit Plan Continue incrementally working toward floor transfer with exercises breaking down the movement. Kneeling activities on black hi-lo table for strengthening and work toward floor transfer. Stair training. Hip extension with theraband.
--- NOTE | 2021-09-01 10:41 | PT.OTN ---
Current Diagnoses Difficulty in walking, not elsewhere classified (09/01/21) Weakness (09/01/21) History of falling (09/01/21) Physical Therapy Treatment Note PT-OP-A Visit Information Start: 05/28/19 08:11 Freq: Status: Active Protocol: Document 09/01/21 09:44 SAK (Rec: 09/01/21 10:38 [facility] [id number]) Out-Patient Physical Therapy Visit Information Visit Information Visit Type Treatment Note Visit Start Time 09:44 Visit Stop Time 10:30 Total Visit Minutes 46 Visit Number 133 Precautions Precautions Seizure disorder memory dysfunction PT-OP-B Current Condition Start: 05/28/19 08:11 Freq: Status: Active Protocol: Document 06/04/20 11:15 SAK (Rec: 06/05/20 16:34 [facility] [id number]) Current Condition History of Current Condition Onset Date 2014 Current Complaints weakness, requires assistance with all mobility and household tasks History of Current Condition Reports that she suffered a stroke in 2014 after surgery for brain aneurysm. CVA caused weakness on the left side of her body, gait and balance difficulty, seizures. PT-OP-C Subjective Start: 05/28/19 08:11 Freq: Status: Active Protocol: Document 09/01/21 09:44 SAK (Rec: 09/01/21 10:38 [facility] [id number]) OP-PT Subjective Patient Comments Patient Comments Patient reports low energy today, having some medication changes, neuropathy level very high from head, down side of arm and side of leg into foot. PT-OP-D Balance Start: 05/28/19 08:11 Freq: Status: Active Protocol: Document 05/29/19 14:30 SAK (Rec: 05/30/19 14:24 [facility] [id number]) OP-PT Balance Assessment Sitting Balance Static Sitting Balance Ability Good Dynamic Sitting Balance Ability Fair Standing Balance Static Standing Balance Ability Good Dynamic Standing Balance Ability Fair Device Used [facility] right Tinetti Balance Assessment Sitting Balance Sitting Balance Steady, safe Arising from Chair Attempts to Arise Able, requires >1 attempt Standing Balance Immediate Standing Balance Steady with support Standing Balance Steady, wide stance Nudged Response Begins to fall Standing with Eyes Closed Unsteady Turning Step Pattern Turning 360 Degrees Discontinuous steps Stability Turning 360 Degrees Unsteady, grabs/staggers Sitting Down Sitting Down Uses arms or unsteady Gait and Step Initiation of Gait Hesitancy, mult. attempts Right Foot Step Length Does not pass stance ft. Right Foot Step Height Does not clear floor Left Foot Step Length Does not pass stance foot Left Foot Step Height Does not clear floor Step Description Step Symmetry Step length not equal Gait Description Path Description Mild/moderate deviation Trunk Description Marked sway or uses aide Walking Stance Heels apart Scoring and Interpretation Tinetti Composite Score (points) 6 Interpretation of Scores High risk for falls(< 19) Herrera Fall Scale Copyright Permission PT-OP-E Functional Tests Start: 05/28/19 08:11 Freq: Status: Active Protocol: Document 05/14/21 10:50 [facility] (Rec: 05/14/21 11:08 [facility] [id number]) Functional Tests 6 Minute Walk Test Distance 169ft Device Used spc, TB wrapping Comments pt has headache today and feels that may have slowed her down. Timed Up and Go (TUG) Score 107 seconds PT-OP-G Mobility & Gait Start: 05/28/19 08:11 Freq: Status: Active Protocol: Document 05/26/20 11:15 SAK (Rec: 05/26/20 17:04 [facility] [id number]) OP Mobility Evaluation Bed Mobility Rolling min assist to right CGA to left Supine to and from Sit min assist to right CGA to left Transfers Sit to Stand CGA to min assist without UE use Bed to Chair Transfers requires use of right UE but able to do with SBA Floor Transfers unable PT-OP-H Neuro Start: 05/28/19 08:11 Freq: Status: Active Protocol: Document 05/29/19 14:30 SAK (Rec: 05/30/19 14:24 SAK [id number]) Sensation Evaluation Gross Sensation Gross Sensation Left UE Impaired,Left LE Impaired Sensation Description Paresthesia,Numbness Coordination Evaluation Lower Extremity Tests Left Alternate Heel to Knee; Heel to Toe Test Moderate Impairment Heel on Boles Test Moderate Impairment Foot Tapping Test Moderate Impairment PT-OP-K Range of Motion Start: 05/28/19 08:11 Freq: Status: Active Protocol: Document 05/26/20 11:15 SAK (Rec: 05/26/20 17:04 [facility] [id number]) Hip Goniometric Range of Motion Hip jake Hip ROM WFL Yes Comments actively right LE, passively left LE Knee Goniometric Range of Motion Knee jake Knee ROM WFL Yes Ankle and Foot Goniometric Range of Motion Ankle and Foot Left Passive Ankle/Foot ROM WFL No Left Active Ankle/Foot ROM WFL No PT-OP-M Strength Start: 05/28/19 08:11 Freq: Status: Active Protocol: Document 05/26/20 11:15 SAK (Rec: 05/26/20 17:04 SAK [id number]) Hip Strength Hip Manual Muscle Testing Left Flexion (L2) 3- Fair- Extension (S1) 2 Poor Abduction 2+ Poor+ External Rotation 3- Fair- Internal Rotation 3+ Fair+ Right Flexion (L2) 4 Good Extension (S1) 4- Good- Abduction 4 Good External Rotation 3+ Fair+ Internal Rotation 4- Good- PT-OP-Q Treatments Start: 05/28/19 08:11 Freq: Status: Active Protocol: Document 09/01/21 09:44 SAK (Rec: 09/01/21 10:38 SAK [id number]) Cardio Equipment Recumbent Stepper (Sci-Fit) Duration (Minutes) 10 Resistance 2 Seat Position 11 Other cues for left LE alignment. Therapeutic Exercises Sitting Exercises pirifomis stretch Reps/Minutes 2x30 HC stretch Side left Resistance AAROM Equipment Used manual and demonstrates use mesh chair w/ hip hinge forward self Reps/Minutes 30 x 3 Comments manual, review discussion with pt and caregiver. Therapeutic Activity Therapeutic Activity pre-gait wt shifts, steps Comments mirror for visual feedback, no UE support; cues for weight shift left with some manual resistance Gait Training Gait Activity pre-gait weight shifts Description side to side (AFO doffed) Device Used none Level of Assistance CG, verbal cues Surface firm Distance/Duration rail on R Treatment Focus increased weight bearing left LE (cued >50-75%) Comments mirror for visual feedback 1 Description level surface Device Used AFO Level of Assistance CGA, cues Surface indoor carpet, linoleum, firm Distance/Duration 140 ft, 100 ft Treatment Focus gait without device Comments Frequent cues for step length, contacted wall for support stabilization, noted improved step length right. Self-Care/Home Management Treatment Education Other Education education of patient and caregiver on use of home e- stim unit PT-OP-R Modalities Start: 05/28/19 08:11 Freq: Status: Active Protocol: Document 12/29/20 10:30 SP (Rec: 12/29/20 11:44 SP [id number]) Electric Stimulation Electric Stimulation Functional Electric Stimulation Body Location L hand/ forearm extensors Duration (Minutes) 2 Patient Position Sitting Comments NMES- education on placement of pad for muscular feedback extension based- check self placement understanding. PT-OP-T Assessment and Plan Start: 05/28/19 08:11 Freq: Status: Active Protocol: Document 09/01/21 09:44 [facility] (Rec: 09/01/21 10:38 [facility] [id number]) Physical Therapy Assessment Goals Five Impairment gait speed not adequate for safe community ambulation Furnace Feeder Goal (LTG) Patient able to ambulate 300' in 6 min. TUG score no greater than 30 sec 06/02/20: 134' 08/28/20: 144', likely not as high due to new shoes and wearing old AFO because fits better in new shoes. Requires level 4 theraband for derotation of left LE into more neutral position for gait . 09/19/20: 146 ft 6 min w/ QC and Tb wrapping to LLE. 11/13/20: 153 ft CG w/ SPC 2>3 pt gait w/out metronome w/ reported L glut/ lateral leg burn pain, 2 step brief stand breaks. 11/24/20: progressing 173.7 ft using SPC, predominently 2 pt gait. TUG score 59 sec using SP 01/27/21: TUG 55 sec. , 6 min walk test 199.9 ft with SPC 03/19/21: 6 min walk test 165' , TUG 1:20. Continue with use of theraband for derotation of excess ER left LE with gait . 04/16/21: 6MWT 190 ft w/ SPC and TB wrapping assist hip IR. 04/23/21: 6MWT 181 ftw/ SPC and TB wrapping 06/25/21: 6MWT 180 ft with SPC and TB wrapping. TU sec LTG Duration 09/22/21 Four Impairment requires assistance with bed mobility and transfers Short Term Goal (STG) Patient will be able to perform all bed mobility independently to improve her functional independence. 10/31/19: good goal progress 06/02/20:inconsistent, but min assist most times 11/24/20: Met goal: pt is independent in supine>sit. STG Duration goal met ( independent 11/24/20 ) Alf Goal (LTG) Patient will be able to perform a floor transfer with SB to min assist. 5x sit to stand score in no more than 15 sec as measure of functional strength for transfers 10/31/19: max assist today 01/02/20: has not been willing to try since 10/31/19 06/02/21: does not feel strong enough to try yet. 06/25/21: 08/28/20: max assistance required 12/02/20: remains at max assist , not recently willing to attempt floor transfer. 5x sit to stand score 26 seconds 01/27/21: not tried recently. 03/24/21: 5x sit to stand 25 sec. No floor transfer today 06/25/21: 5x sit to stand 24 sec. Patient didn't feel up to doing floor transfer, remains a concern LTG Duration 09/22/21 Three Impairment weakness left UE and LE s/p CVA Furnace Feeder Goal (LTG) Improve functional strength in left LE, as evidenced by ability to move from sit > < stand without use of UE's. 10/31/19: OT starts tomorrow. Good progress with sit to stand, though mostly using right UE and LE 01/02/20: Improving ability to perform, able to increase weight-bearing through left LE with cues, but still some use of right UE 05/26/20: With manual and visual feedback patient able to transfer sit to stand with only CG A. 08/28/20: inconsistent ability to move sit to stand without using UE's, but able to do transfer without physical assistance 11/24/20: Goal Met 01/27/21: more difficulty recently, having to use hands. Goal reactivated. 03/24/21: difficulty motor planning and performing sit to stand today. 06/25/21: patient becomes frustrated with sit to stand transfers as she expresses she feels she has a hard time remembering how to do it, has to use right UE LTG Duration 09/22/21 Two Impairment balance dysfunction with high risk for falls Furnace Feeder Goal (LTG) Improve balance as evidenced by improvement in Tinnetti balance and gait score to low fall risk range to improve safety in the home and community. 10/31/19: remains high risk for falls 01/02/20: some improvement but still in high risk category 05/26/20: Tinetti score in high risk category 08/28/20: moderate risk for falls 12/02/20: remains in moderate risk for falls. 01/27/21: moderate risk for falls 03/24/21: no significant change noted today but again having poor day. 06/25/21: Moderate risk for falls, though no reported falls over past few months. LTG Duration 09/22/21 One Impairment requires armaan-walker for gait, limited to household gait Alf Goal (LTG) Patient able to ambulate with least restrictive device for functional community distances to improve her functional independence and quality of life. 10/30/19: no progress due to Covid 19. 11/02/19: able to ambulate with quad cane but with very slow speed, household distances, very short community distances . 05/26/20: Now able to ambulate with use of single point cane and use of L4 theraband wrapped around left LE to facilitate left LE internal rotation for improved alignment. Patient unable to don the theraband on her own. Gait is for short distances and very slow at 39 ft in 2 min. 08/28/20: has demonstrated improved gait ability, still using theraband for derotation of LE for more neutral position. Able to consistenly use quad cane and is increasing stride length especially with cues. Now able to ascend and descend 4 stairs with min assist using railing. Mod assist on 6 stairs. 12/02/20: Patient ambulating with SPC, mostly household but some community distances, improved gait alignment with use of theraband for improved alignment. Patient not consistently able to ambulate community distances due to pain in her left LE, and lack of neurological control left LE. Patient may benefit from modification to her current AFO or fabrication of new AFO. 173 ft in 6 minutes 01/27/21: using SPC. Limitations due to left foot, knee and hip pain, right wrist pain 6 min walk test improved to 199.9 feet today 03/24/21: slower 6 min walk test today as above. Has had modification to her AFO with some improvement in her function, but had poor day today. 06/25/21: 180' on 6 min walk test, patient reports left knee feeling wonky, and right UE still painful due to surgery' having stitches out today. Also c/o lack of caregiver recently has limited her walking, no outings. Will try again next session. LTG Duration 09/22/21 Assessment Summary Assessment Improved distance with gait with decreased cues for LE alignment, patient noting decreased knee hyperextension with improved weight shift and hip extension left. Patient and caregiver demonstrated good understanding of use of home e-stim unit for ankle df. Physical Therapy Plan Frequency and Duration Frequency of Treatment 2x/Week Duration of Treatment 12 wks Plan of Care Start Date 06/25/21 Plan of Care End Date 09/22/21 Therapeutic Interventions Therapeutic Interventions Aquatic Therapy,Balance Training,Gait Training,Home Exercise Program,Neuromuscular Re-education,Orthotic/ Prosthetic Management,Patient/ Caregiver Education,Self-Care/ Home Management,Taping, Therapeutic Activities, Therapeutic Exercises Modalities Cold Pack/Ice Massage,Hot Packs Next Visit Focus/Plan Next Note Type Treatment Note Next Visit Plan Continue incrementally working toward floor transfer with exercises breaking down the movement. Kneeling activities on black hi-lo table for strengthening and work toward floor transfer. Stair training. Hip extension with theraband.
--- NOTE | 2021-09-09 12:35 | PT.OTN ---
Current Diagnoses Difficulty in walking, not elsewhere classified (09/09/21) Weakness (09/09/21) History of falling (09/09/21) Physical Therapy Treatment Note PT-OP-A Visit Information Start: 05/28/19 08:11 Freq: Status: Active Protocol: Document 09/09/21 09:46 AW (Rec: 09/09/21 12:35 AW [id number]) Out-Patient Physical Therapy Visit Information Visit Information Visit Type Treatment Note Visit Start Time 09:45 Visit Stop Time 10:30 Total Visit Minutes 45 Visit Number 136 Precautions Precautions Seizure disorder memory dysfunction PT-OP-B Current Condition Start: 05/28/19 08:11 Freq: Status: Active Protocol: Document 06/04/20 11:15 SAK (Rec: 06/05/20 16:34 SAK [id number]) Current Condition History of Current Condition Onset Date 2014 Current Complaints weakness, requires assistance with all mobility and household tasks History of Current Condition Reports that she suffered a stroke in 2014 after surgery for brain aneurysm. CVA caused weakness on the left side of her body, gait and balance difficulty, seizures. PT-OP-C Subjective Start: 05/28/19 08:11 Freq: Status: Active Protocol: Document 09/09/21 09:46 AW (Rec: 09/09/21 12:35 AW [id number]) OP-PT Subjective Patient Comments Patient Comments Looking forward to dry needling appointment on Tuesday , gets good relief especially for shoulder and neck. PT-OP-D Balance Start: 05/28/19 08:11 Freq: Status: Active Protocol: Document 05/29/19 14:30 SAK (Rec: 05/30/19 14:24 SAK [id number]) OP-PT Balance Assessment Sitting Balance Static Sitting Balance Ability Good Dynamic Sitting Balance Ability Fair Standing Balance Static Standing Balance Ability Good Dynamic Standing Balance Ability Fair Device Used [facility] right Tinetti Balance Assessment Sitting Balance Sitting Balance Steady, safe Arising from Chair Attempts to Arise Able, requires >1 attempt Standing Balance Immediate Standing Balance Steady with support Standing Balance Steady, wide stance Nudged Response Begins to fall Standing with Eyes Closed Unsteady Turning Step Pattern Turning 360 Degrees Discontinuous steps Stability Turning 360 Degrees Unsteady, grabs/staggers Sitting Down Sitting Down Uses arms or unsteady Gait and Step Initiation of Gait Hesitancy, mult. attempts Right Foot Step Length Does not pass stance ft. Right Foot Step Height Does not clear floor Left Foot Step Length Does not pass stance foot Left Foot Step Height Does not clear floor Step Description Step Symmetry Step length not equal Gait Description Path Description Mild/moderate deviation Trunk Description Marked sway or uses aide Walking Stance Heels apart Scoring and Interpretation Tinetti Composite Score (points) 6 Interpretation of Scores High risk for falls(< 19) Herrera Fall Scale Copyright Permission PT-OP-E Functional Tests Start: 05/28/19 08:11 Freq: Status: Active Protocol: Document 05/14/21 10:50 AMH (Rec: 05/14/21 11:08 AMH [id number]) Functional Tests 6 Minute Walk Test Distance 169ft Device Used spc, TB wrapping Comments pt has headache today and feels that may have slowed her down. Timed Up and Go (TUG) Score 107 seconds PT-OP-G Mobility & Gait Start: 05/28/19 08:11 Freq: Status: Active Protocol: Document 05/26/20 11:15 SAK (Rec: 05/26/20 17:04 [facility] [id number]) OP Mobility Evaluation Bed Mobility Rolling min assist to right CGA to left Supine to and from Sit min assist to right CGA to left Transfers Sit to Stand CGA to min assist without UE use Bed to Chair Transfers requires use of right UE but able to do with SBA Floor Transfers unable PT-OP-H Neuro Start: 05/28/19 08:11 Freq: Status: Active Protocol: Document 05/29/19 14:30 SAK (Rec: 05/30/19 14:24 SAK [id number]) Sensation Evaluation Gross Sensation Gross Sensation Left UE Impaired,Left LE Impaired Sensation Description Paresthesia,Numbness Coordination Evaluation Lower Extremity Tests Left Alternate Heel to Knee; Heel to Toe Test Moderate Impairment Heel on Boles Test Moderate Impairment Foot Tapping Test Moderate Impairment PT-OP-K Range of Motion Start: 05/28/19 08:11 Freq: Status: Active Protocol: Document 05/26/20 11:15 SAK (Rec: 05/26/20 17:04 SAK [id number]) Hip Goniometric Range of Motion Hip jake Hip ROM WFL Yes Comments actively right LE, passively left LE Knee Goniometric Range of Motion Knee jake Knee ROM WFL Yes Ankle and Foot Goniometric Range of Motion Ankle and Foot Left Passive Ankle/Foot ROM WFL No Left Active Ankle/Foot ROM WFL No PT-OP-M Strength Start: 05/28/19 08:11 Freq: Status: Active Protocol: Document 05/26/20 11:15 SAK (Rec: 05/26/20 17:04 SAK [id number]) Hip Strength Hip Manual Muscle Testing Left Flexion (L2) 3- Fair- Extension (S1) 2 Poor Abduction 2+ Poor+ External Rotation 3- Fair- Internal Rotation 3+ Fair+ Right Flexion (L2) 4 Good Extension (S1) 4- Good- Abduction 4 Good External Rotation 3+ Fair+ Internal Rotation 4- Good- PT-OP-Q Treatments Start: 05/28/19 08:11 Freq: Status: Active Protocol: Document 09/09/21 09:46 AW (Rec: 09/09/21 12:35 AW [id number]) Cardio Equipment Recumbent Stepper (Sci-Fit) Duration (Minutes) 10 Resistance 2.1 Seat Position 11 Other cues for left LE alignment. Therapeutic Exercises Standing Exercises resisted standing Standing Exercise Name rhythmic stabilization Equipment Used mirror for visual feedback Reps/Minutes 5 min Comments PT providing push to right to encourage patient inc wt bearing to left squats Standing Exercise Name RUE on tx table set at bed ht Reps/Minutes 2x10 Therapeutic Activity Therapeutic Activity sit>sideling> kneeling Comments seated to sidelying with min assist, mod assist to knees and right LE but unable to maintain position secondary to pain and/or fear avoidance. Gait Training Gait Activity backward Device Used none Level of Assistance CGA Distance/Duration 6'x2 Treatment Focus decreased support, gluteal activation Comments mirror for visual feedback. uneven Description uneven Device Used AFO, no cane Level of Assistance CGA-min assist Surface red yoga mat Distance/Duration 4x Treatment Focus weight shift, step length, safety pre-gait weight shifts Description side to side (AFO doffed) Device Used none Level of Assistance CG, verbal cues Surface firm Distance/Duration rail on R Treatment Focus increased weight bearing left LE (cued >50-75%) Comments mirror for visual feedback 1 Description level surface Device Used AFO Level of Assistance CGA, cues Surface indoor carpet, linoleum, firm Distance/Duration 60 ft, 150ft Treatment Focus gait without device Comments Pt verbalizes her strategy as she goes. 100' without contacting wall or other support. One contact with wall before sitting, complaining of RLE pain. PT-OP-R Modalities Start: 05/28/19 08:11 Freq: Status: Active Protocol: Document 12/29/20 10:30 SP (Rec: 12/29/20 11:44 SP [id number]) Electric Stimulation Electric Stimulation Functional Electric Stimulation Body Location L hand/ forearm extensors Duration (Minutes) 2 Patient Position Sitting Comments NMES- education on placement of pad for muscular feedback extension based- check self placement understanding. PT-OP-T Assessment and Plan Start: 05/28/19 08:11 Freq: Status: Active Protocol: Document 09/09/21 09:46 AW (Rec: 09/09/21 12:35 AW [id number]) Physical Therapy Assessment Goals Five Impairment gait speed not adequate for safe community ambulation Assisted Goal (LTG) Patient able to ambulate 300' in 6 min. TUG score no greater than 30 sec 06/02/20: 134' 08/28/20: 144', likely not as high due to new shoes and wearing old AFO because fits better in new shoes. Requires level 4 theraband for derotation of left LE into more neutral position for gait . 09/19/20: 146 ft 6 min w/ QC and Tb wrapping to LLE. 11/13/20: 153 ft CG w/ SPC 2>3 pt gait w/out metronome w/ reported L glut/ lateral leg burn pain, 2 step brief stand breaks. 11/24/20: progressing 173.7 ft using SPC, predominently 2 pt gait. TUG score 59 sec using SP 01/27/21: TUG 55 sec. , 6 min walk test 199.9 ft with SPC 03/19/21: 6 min walk test 165' , TUG 1:20. Continue with use of theraband for derotation of excess ER left LE with gait . 04/16/21: 6MWT 190 ft w/ SPC and TB wrapping assist hip IR. 04/23/21: 6MWT 181 ftw/ SPC and TB wrapping 06/25/21: 6MWT 180 ft with SPC and TB wrapping. TU sec LTG Duration 09/22/21 Four Impairment requires assistance with bed mobility and transfers Short Term Goal (STG) Patient will be able to perform all bed mobility independently to improve her functional independence. 10/31/19: good goal progress 06/02/20:inconsistent, but min assist most times 11/24/20: Met goal: pt is independent in supine>sit. STG Duration goal met ( independent 11/24/20 ) [employer] Goal (LTG) Patient will be able to perform a floor transfer with SB to min assist. 5x sit to stand score in no more than 15 sec as measure of functional strength for transfers 10/31/19: max assist today 01/02/20: has not been willing to try since 10/31/19 06/02/21: does not feel strong enough to try yet. 06/25/21: 08/28/20: max assistance required 12/02/20: remains at max assist , not recently willing to attempt floor transfer. 5x sit to stand score 26 seconds 01/27/21: not tried recently. 03/24/21: 5x sit to stand 25 sec. No floor transfer today 06/25/21: 5x sit to stand 24 sec. Patient didn't feel up to doing floor transfer, remains a concern LTG Duration 09/22/21 Three Impairment weakness left UE and LE s/p CVA [employer] Goal (LTG) Improve functional strength in left LE, as evidenced by ability to move from sit > < stand without use of UE's. 10/31/19: OT starts tomorrow. Good progress with sit to stand, though mostly using right UE and LE 01/02/20: Improving ability to perform, able to increase weight-bearing through left LE with cues, but still some use of right UE 05/26/20: With manual and visual feedback patient able to transfer sit to stand with only CG A. 08/28/20: inconsistent ability to move sit to stand without using UE's, but able to do transfer without physical assistance 11/24/20: Goal Met 01/27/21: more difficulty recently, having to use hands. Goal reactivated. 03/24/21: difficulty motor planning and performing sit to stand today. 06/25/21: patient becomes frustrated with sit to stand transfers as she expresses she feels she has a hard time remembering how to do it, has to use right UE LTG Duration 09/22/21 Two Impairment balance dysfunction with high risk for falls [employer] Goal (LTG) Improve balance as evidenced by improvement in Tinnetti balance and gait score to low fall risk range to improve safety in the home and community. 10/31/19: remains high risk for falls 01/02/20: some improvement but still in high risk category 05/26/20: Tinetti score in high risk category 08/28/20: moderate risk for falls 12/02/20: remains in moderate risk for falls. 01/27/21: moderate risk for falls 03/24/21: no significant change noted today but again having poor day. 06/25/21: Moderate risk for falls, though no reported falls over past few months. LTG Duration 09/22/21 One Impairment requires armaan-walker for gait, limited to household gait E [employer] Architect Goal (LTG) Patient able to ambulate with least restrictive device for functional community distances to improve her functional independence and quality of life. 10/30/19: no progress due to Covid 19. 11/02/19: able to ambulate with quad cane but with very slow speed, household distances, very short community distances . 05/26/20: Now able to ambulate with use of single point cane and use of L4 theraband wrapped around left LE to facilitate left LE internal rotation for improved alignment. Patient unable to don the theraband on her own. Gait is for short distances and very slow at 39 ft in 2 min. 08/28/20: has demonstrated improved gait ability, still using theraband for derotation of LE for more neutral position. Able to consistenly use quad cane and is increasing stride length especially with cues. Now able to ascend and descend 4 stairs with min assist using railing. Mod assist on 6 stairs. 12/02/20: Patient ambulating with SPC, mostly household but some community distances, improved gait alignment with use of theraband for improved alignment. Patient not consistently able to ambulate community distances due to pain in her left LE, and lack of neurological control left LE. Patient may benefit from modification to her current AFO or fabrication of new AFO. 173 ft in 6 minutes 01/27/21: using SPC. Limitations due to left foot, knee and hip pain, right wrist pain 6 min walk test improved to 199.9 feet today 03/24/21: slower 6 min walk test today as above. Has had modification to her AFO with some improvement in her function, but had poor day today. 06/25/21: 180' on 6 min walk test, patient reports left knee feeling wonky, and right UE still painful due to surgery' having stitches out today. Also c/o lack of caregiver recently has limited her walking, no outings. Will try again next session. LTG Duration 09/22/21 Assessment Summary Assessment Good distance with gait today and pt depends less on external support (none at all for 100'). PT observes slightly increased right step length and improved neutral rotation in left hip even as pt fatigues. Pt was exhausted by end of session and needed extra time to sit and stretch before using wheelchair back to car. Physical Therapy Plan Frequency and Duration Frequency of Treatment 2x/Week Duration of Treatment 12 wks Plan of Care Start Date 06/25/21 Plan of Care End Date 09/22/21 Therapeutic Interventions Therapeutic Interventions Aquatic Therapy,Balance Training,Gait Training,Home Exercise Program,Neuromuscular Re-education,Orthotic/ Prosthetic Management,Patient/ Caregiver Education,Self-Care/ Home Management,Taping, Therapeutic Activities, Therapeutic Exercises Modalities Cold Pack/Ice Massage,Hot Packs Next Visit Focus/Plan Next Note Type Treatment Note Next Visit Plan Standing ip extension with theraband, progress gait training to increased uneven surfaces including stepping onto and over objects.
--- NOTE | 2021-09-16 17:27 | PT.OTN ---
Current Diagnoses Difficulty in walking, not elsewhere classified (09/16/21) Weakness (09/16/21) History of falling (09/16/21) Physical Therapy Treatment Note PT-OP-A Visit Information Start: 05/28/19 08:11 Freq: Status: Active Protocol: Document 09/16/21 08:52 AW (Rec: 09/16/21 10:32 AW [id number]) Out-Patient Physical Therapy Visit Information Visit Information Visit Type Progress Note Visit Start Time 09:45 Visit Stop Time 10:30 Total Visit Minutes 45 Visit Number 137 Precautions Precautions Seizure disorder memory dysfunction PT-OP-B Current Condition Start: 05/28/19 08:11 Freq: Status: Active Protocol: Document 06/04/20 11:15 SAK (Rec: 06/05/20 16:34 SAK [id number]) Current Condition History of Current Condition Onset Date 2014 Current Complaints weakness, requires assistance with all mobility and household tasks History of Current Condition Reports that she suffered a stroke in 2014 after surgery for brain aneurysm. CVA caused weakness on the left side of her body, gait and balance difficulty, seizures. PT-OP-C Subjective Start: 05/28/19 08:11 Freq: Status: Active Protocol: Document 09/16/21 08:52 AW (Rec: 09/16/21 10:32 AW [id number]) OP-PT Subjective Patient Comments Patient Comments Pt has been doing outings to the store and able to manage longer times with cane. PT-OP-D Balance Start: 05/28/19 08:11 Freq: Status: Active Protocol: Document 05/29/19 14:30 SAK (Rec: 05/30/19 14:24 SAK [id number]) OP-PT Balance Assessment Sitting Balance Static Sitting Balance Ability Good Dynamic Sitting Balance Ability Fair Standing Balance Static Standing Balance Ability Good Dynamic Standing Balance Ability Fair Device Used hemiwalker right Tinetti Balance Assessment Sitting Balance Sitting Balance Steady, safe Arising from Chair Attempts to Arise Able, requires >1 attempt Standing Balance Immediate Standing Balance Steady with support Standing Balance Steady, wide stance Nudged Response Begins to fall Standing with Eyes Closed Unsteady Turning Step Pattern Turning 360 Degrees Discontinuous steps Stability Turning 360 Degrees Unsteady, grabs/staggers Sitting Down Sitting Down Uses arms or unsteady Gait and Step Initiation of Gait Hesitancy, mult. attempts Right Foot Step Length Does not pass stance ft. Right Foot Step Height Does not clear floor Left Foot Step Length Does not pass stance foot Left Foot Step Height Does not clear floor Step Description Step Symmetry Step length not equal Gait Description Path Description Mild/moderate deviation Trunk Description Marked sway or uses aide Walking Stance Heels apart Scoring and Interpretation Tinetti Composite Score (points) 6 Interpretation of Scores High risk for falls(< 19) Herrera Fall Scale Copyright Permission PT-OP-E Functional Tests Start: 05/28/19 08:11 Freq: Status: Active Protocol: Document 05/14/21 10:50 AMH (Rec: 05/14/21 11:08 AMH [id number]) Functional Tests 6 Minute Walk Test Distance 169ft Device Used spc, TB wrapping Comments pt has headache today and feels that may have slowed her down. Timed Up and Go (TUG) Score 107 seconds PT-OP-G Mobility & Gait Start: 05/28/19 08:11 Freq: Status: Active Protocol: Document 05/26/20 11:15 SAK (Rec: 05/26/20 17:04 SAK [id number]) OP Mobility Evaluation Bed Mobility Rolling min assist to right CGA to left Supine to and from Sit min assist to right CGA to left Transfers Sit to Stand CGA to min assist without UE use Bed to Chair Transfers requires use of right UE but able to do with SBA Floor Transfers unable PT-OP-H Neuro Start: 05/28/19 08:11 Freq: Status: Active Protocol: Document 05/29/19 14:30 SAK (Rec: 05/30/19 14:24 SAK [id number]) Sensation Evaluation Gross Sensation Gross Sensation Left UE Impaired,Left LE Impaired Sensation Description Paresthesia,Numbness Coordination Evaluation Lower Extremity Tests Left Alternate Heel to Knee; Heel to Toe Test Moderate Impairment Heel on Boles Test Moderate Impairment Foot Tapping Test Moderate Impairment PT-OP-K Range of Motion Start: 05/28/19 08:11 Freq: Status: Active Protocol: Document 05/26/20 11:15 SAK (Rec: 05/26/20 17:04 SAK [id number]) Hip Goniometric Range of Motion Hip jake Hip ROM WFL Yes Comments actively right LE, passively left LE Knee Goniometric Range of Motion Knee jake Knee ROM WFL Yes Ankle and Foot Goniometric Range of Motion Ankle and Foot Left Passive Ankle/Foot ROM WFL No Left Active Ankle/Foot ROM WFL No PT-OP-M Strength Start: 05/28/19 08:11 Freq: Status: Active Protocol: Document 05/26/20 11:15 SAK (Rec: 05/26/20 17:04 SAK [id number]) Hip Strength Hip Manual Muscle Testing Left Flexion (L2) 3- Fair- Extension (S1) 2 Poor Abduction 2+ Poor+ External Rotation 3- Fair- Internal Rotation 3+ Fair+ Right Flexion (L2) 4 Good Extension (S1) 4- Good- Abduction 4 Good External Rotation 3+ Fair+ Internal Rotation 4- Good- PT-OP-Q Treatments Start: 05/28/19 08:11 Freq: Status: Active Protocol: Document 09/16/21 08:52 AW (Rec: 09/16/21 10:32 AW [id number]) Cardio Equipment Recumbent Stepper (Sci-Fit) Duration (Minutes) 10 Resistance 2.1 Seat Position 11 Other cues for left LE alignment. 1. 06 mi Therapeutic Activity Therapeutic Activity TUG Comments - 1 min 16 sec with no AD, no UE support in STS. - 1 min 13 sec with hurry cane , no UE support in STS 5x sit to stand test Name 5xSTS Comments No use of hands at all. Good weight shift/acceptance LLE. - 36.4 sec from 20 surface - 30.5 sec from 18 surface Gait Training Gait Activity 6 min walk test Description AFO only Level of Assistance SBA- CGA Surface firm Distance/Duration 165'/6 min Comments Improved stability overall. Pt reaches for wall 5 times during six minutes but does not lean on it. Average gait speed 0.14 m/s. PT-OP-R Modalities Start: 05/28/19 08:11 Freq: Status: Active Protocol: Document 12/29/20 10:30 SP (Rec: 12/29/20 11:44 SP [id number]) Electric Stimulation Electric Stimulation Functional Electric Stimulation Body Location L hand/ forearm extensors Duration (Minutes) 2 Patient Position Sitting Comments NMES- education on placement of pad for muscular feedback extension based- check self placement understanding. PT-OP-T Assessment and Plan Start: 05/28/19 08:11 Freq: Status: Active Protocol: Document 09/16/21 08:52 AW (Rec: 09/16/21 10:32 AW [id number]) Physical Therapy Assessment Goals Five Impairment gait speed not adequate for safe community ambulation [facility] Goal (LTG) Patient able to ambulate 300' in 6 min. TUG score no greater than 30 sec 06/02/20: 134' 08/28/20: 144', likely not as high due to new shoes and wearing old AFO because fits better in new shoes. Requires level 4 theraband for derotation of left LE into more neutral position for gait . 09/19/20: 146 ft 6 min w/ QC and Tb wrapping to LLE. 11/13/20: 153 ft CG w/ SPC 2>3 pt gait w/out metronome w/ reported L glut/ lateral leg burn pain, 2 step brief stand breaks. 11/24/20: progressing 173.7 ft using SPC, predominently 2 pt gait. TUG score 59 sec using SP 01/27/21: TUG 55 sec. , 6 min walk test 199.9 ft with SPC 03/19/21: 6 min walk test 165' , TUG 1:20. Continue with use of theraband for derotation of excess ER left LE with gait . 04/16/21: 6MWT 190 ft w/ SPC and TB wrapping assist hip IR. 04/23/21: 6MWT 181 ftw/ SPC and TB wrapping 06/25/21: 6MWT 180 ft with SPC and TB wrapping. TU sec 09/16/21 - average gait speed 0 .14 m/s on 6MWT which pt completed with no AD (AFO only ). LTG Duration 12/24/21 Four Impairment requires assistance with bed mobility and transfers Short Term Goal (STG) Patient will be able to perform all bed mobility independently to improve her functional independence. 10/31/19: good goal progress 06/02/20:inconsistent, but min assist most times 11/24/20: Met goal: pt is independent in supine>sit. STG Duration goal met ( independent 11/24/20 ) Manufacturing Teacher Goal (LTG) Patient will be able to perform a floor transfer with SB to min assist. 5x sit to stand score in no more than 15 sec as measure of functional strength for transfers 10/31/19: max assist today 01/02/20: has not been willing to try since 10/31/19 06/02/21: does not feel strong enough to try yet. 06/25/21: 08/28/20: max assistance required 12/02/20: remains at max assist , not recently willing to attempt floor transfer. 5x sit to stand score 26 seconds 01/27/21: not tried recently. 03/24/21: 5x sit to stand 25 sec. No floor transfer today 06/25/21: 5x sit to stand 24 sec. Patient didn't feel up to doing floor transfer, remains a concern 09/16/21: Pt willing to work on floor transfers but demonstrates a great deal of fear avoidance. 5 Time Sit to Stand today in 30.4 seconds from standard height chair with no use of RUE LTG Duration 12/24/21 Three Impairment weakness left UE and LE s/p CVA [facility]ci Goal (LTG) Improve functional strength in left LE, as evidenced by ability to move from sit > < stand without use of UE's. 10/31/19: OT starts tomorrow. Good progress with sit to stand, though mostly using right UE and LE 01/02/20: Improving ability to perform, able to increase weight-bearing through left LE with cues, but still some use of right UE 05/26/20: With manual and visual feedback patient able to transfer sit to stand with only CG A. 08/28/20: inconsistent ability to move sit to stand without using UE's, but able to do transfer without physical assistance 11/24/20: Goal Met 01/27/21: more difficulty recently, having to use hands. Goal reactivated. 03/24/21: difficulty motor planning and performing sit to stand today. 06/25/21: patient becomes frustrated with sit to stand transfers as she expresses she feels she has a hard time remembering how to do it, has to use right UE 09/16/21 Pt completes sit to stand x 5 today without use of RUE from std height chair. LTG Duration 12/24/21 Two Impairment balance dysfunction with high risk for falls Manufacturing Teacher Goal (LTG) Improve balance as evidenced by improvement in Tinnetti balance and gait score to low fall risk range to improve safety in the home and community. 10/31/19: remains high risk for falls 01/02/20: some improvement but still in high risk category 05/26/20: Tinetti score in high risk category 08/28/20: moderate risk for falls 12/02/20: remains in moderate risk for falls. 01/27/21: moderate risk for falls 03/24/21: no significant change noted today but again having poor day. 06/25/21: Moderate risk for falls, though no reported falls over past few months. 09/16/21 No change LTG Duration 12/24/21 One Impairment requires armaan-walker for gait, limited to household gait Manufacturing Teacher Goal (LTG) Patient able to ambulate with least restrictive device for functional community distances to improve her functional independence and quality of life. 10/30/19: no progress due to Covid 19. 11/02/19: able to ambulate with quad cane but with very slow speed, household distances, very short community distances . 05/26/20: Now able to ambulate with use of single point cane and use of L4 theraband wrapped around left LE to facilitate left LE internal rotation for improved alignment. Patient unable to don the theraband on her own. Gait is for short distances and very slow at 39 ft in 2 min. 08/28/20: has demonstrated improved gait ability, still using theraband for derotation of LE for more neutral position. Able to consistenly use quad cane and is increasing stride length especially with cues. Now able to ascend and descend 4 stairs with min assist using railing. Mod assist on 6 stairs. 12/02/20: Patient ambulating with SPC, mostly household but some community distances, improved gait alignment with use of theraband for improved alignment. Patient not consistently able to ambulate community distances due to pain in her left LE, and lack of neurological control left LE. Patient may benefit from modification to her current AFO or fabrication of new AFO. 173 ft in 6 minutes 01/27/21: using SPC. Limitations due to left foot, knee and hip pain, right wrist pain 6 min walk test improved to 199.9 feet today 03/24/21: slower 6 min walk test today as above. Has had modification to her AFO with some improvement in her function, but had poor day today. 06/25/21: 180' on 6 min walk test, patient reports left knee feeling wonky, and right UE still painful due to surgery' having stitches out today. Also c/o lack of caregiver recently has limited her walking, no outings. Will try again next session. 09/16/21: Pt completes 6MWT without cane today/ Average gait speed 0.14 m/s. LTG Duration 12/24/21 Progress Towards Goals Progress Towards Goals Progressing Toward Goals Progress Comments [place] has made good progress with gait and is more open to balance challenges in recent months. She is now able to complete 6 Minute Walk Test with no cane and reports increase in short community outings with cane. Assessment Summary Assessment Reassessed today and pt has made good progress with gait, completing 6MWT with no assistive device other than AFO. Good evidence of endurance improvements such as more neutral rotation in left hip even as gait distance increases. Physical Therapy Plan Frequency and Duration Frequency of Treatment 2x/Week Duration of Treatment 3 months Plan of Care Start Date 09/23/21 Plan of Care End Date 12/24/21 Therapeutic Interventions Therapeutic Interventions Aquatic Therapy,Balance Training,Gait Training,Home Exercise Program,Neuromuscular Re-education,Orthotic/ Prosthetic Management,Patient/ Caregiver Education,Self-Care/ Home Management,Taping, Therapeutic Activities, Therapeutic Exercises Modalities Cold Pack/Ice Massage,Hot Packs Next Visit Focus/Plan Next Note Type Treatment Note Next Visit Plan Standing hip extension with theraband, progress gait training to increased uneven surfaces including stepping onto and over objects. Revisit floor transfers.
--- NOTE | 2021-09-29 15:05 | PT.OTN ---
Current Diagnoses Difficulty in walking, not elsewhere classified (09/29/21) Weakness (09/29/21) History of falling (09/29/21) Physical Therapy Treatment Note PT-OP-A Visit Information Start: 05/28/19 08:11 Freq: Status: Active Protocol: Document 09/29/21 10:40 SAK (Rec: 09/29/21 11:21 SAK [id number]) Out-Patient Physical Therapy Visit Information Visit Information Visit Type Treatment Note Visit Start Time 10:35 Visit Stop Time 11:17 Total Visit Minutes 43 Visit Number 138 Precautions Precautions Seizure disorder memory dysfunction PT-OP-B Current Condition Start: 05/28/19 08:11 Freq: Status: Active Protocol: Document 06/04/20 11:15 SAK (Rec: 06/05/20 16:34 SAK [id number]) Current Condition History of Current Condition Onset Date 2014 Current Complaints weakness, requires assistance with all mobility and household tasks History of Current Condition Reports that she suffered a stroke in 2014 after surgery for brain aneurysm. CVA caused weakness on the left side of her body, gait and balance difficulty, seizures. PT-OP-C Subjective Start: 05/28/19 08:11 Freq: Status: Active Protocol: Document 09/29/21 10:40 SAK (Rec: 09/29/21 11:21 SAK [id number]) OP-PT Subjective Patient Comments Patient Comments No new c/o. Went to [place] over the weekend to see daughter and grandkids, look at house; states nothing in her budjet. Didn't get accessible hotel room, had much difficulty getting off toilet, realizes how difficult things are outside her usual environment. PT-OP-D Balance Start: 05/28/19 08:11 Freq: Status: Active Protocol: Document 05/29/19 14:30 SAK (Rec: 05/30/19 14:24 SAK [id number]) OP-PT Balance Assessment Sitting Balance Static Sitting Balance Ability Good Dynamic Sitting Balance Ability Fair Standing Balance Static Standing Balance Ability Good Dynamic Standing Balance Ability Fair Device Used [facility] right Tinetti Balance Assessment Sitting Balance Sitting Balance Steady, safe Arising from Chair Attempts to Arise Able, requires >1 attempt Standing Balance Immediate Standing Balance Steady with support Standing Balance Steady, wide stance Nudged Response Begins to fall Standing with Eyes Closed Unsteady Turning Step Pattern Turning 360 Degrees Discontinuous steps Stability Turning 360 Degrees Unsteady, grabs/staggers Sitting Down Sitting Down Uses arms or unsteady Gait and Step Initiation of Gait Hesitancy, mult. attempts Right Foot Step Length Does not pass stance ft. Right Foot Step Height Does not clear floor Left Foot Step Length Does not pass stance foot Left Foot Step Height Does not clear floor Step Description Step Symmetry Step length not equal Gait Description Path Description Mild/moderate deviation Trunk Description Marked sway or uses aide Walking Stance Heels apart Scoring and Interpretation Tinetti Composite Score (points) 6 Interpretation of Scores High risk for falls(< 19) Herrera Fall Scale Copyright Permission PT-OP-E Functional Tests Start: 05/28/19 08:11 Freq: Status: Active Protocol: Document 05/14/21 10:50 [facility] (Rec: 05/14/21 11:08 [facility] [id number]) Functional Tests 6 Minute Walk Test Distance 169ft Device Used spc, TB wrapping Comments pt has headache today and feels that may have slowed her down. Timed Up and Go (TUG) Score 107 seconds PT-OP-G Mobility & Gait Start: 05/28/19 08:11 Freq: Status: Active Protocol: Document 05/26/20 11:15 SAK (Rec: 05/26/20 17:04 SAK [id number]) OP Mobility Evaluation Bed Mobility Rolling min assist to right CGA to left Supine to and from Sit min assist to right CGA to left Transfers Sit to Stand CGA to min assist without UE use Bed to Chair Transfers requires use of right UE but able to do with SBA Floor Transfers unable PT-OP-H Neuro Start: 05/28/19 08:11 Freq: Status: Active Protocol: Document 05/29/19 14:30 SAK (Rec: 05/30/19 14:24 SAK [id number]) Sensation Evaluation Gross Sensation Gross Sensation Left UE Impaired,Left LE Impaired Sensation Description Paresthesia,Numbness Coordination Evaluation Lower Extremity Tests Left Alternate Heel to Knee; Heel to Toe Test Moderate Impairment Heel on Boles Test Moderate Impairment Foot Tapping Test Moderate Impairment PT-OP-K Range of Motion Start: 05/28/19 08:11 Freq: Status: Active Protocol: Document 05/26/20 11:15 SAK (Rec: 05/26/20 17:04 SAK [id number]) Hip Goniometric Range of Motion Hip jake Hip ROM WFL Yes Comments actively right LE, passively left LE Knee Goniometric Range of Motion Knee jake Knee ROM WFL Yes Ankle and Foot Goniometric Range of Motion Ankle and Foot Left Passive Ankle/Foot ROM WFL No Left Active Ankle/Foot ROM WFL No PT-OP-M Strength Start: 05/28/19 08:11 Freq: Status: Active Protocol: Document 05/26/20 11:15 [facility] (Rec: 05/26/20 17:04 [facility] [id number]) Hip Strength Hip Manual Muscle Testing Left Flexion (L2) 3- Fair- Extension (S1) 2 Poor Abduction 2+ Poor+ External Rotation 3- Fair- Internal Rotation 3+ Fair+ Right Flexion (L2) 4 Good Extension (S1) 4- Good- Abduction 4 Good External Rotation 3+ Fair+ Internal Rotation 4- Good- PT-OP-Q Treatments Start: 05/28/19 08:11 Freq: Status: Active Protocol: Document 09/29/21 10:40 [facility] (Rec: 09/29/21 11:21 [facility] [id number]) Cardio Equipment Recumbent Stepper (Sci-Fit) Duration (Minutes) 10 Resistance 2.1 Seat Position 11 Other cues for left LE alignment. Therapeutic Exercises Standing Exercises resisted standing Standing Exercise Name rhythmic stabilization Equipment Used mirror for visual feedback Reps/Minutes 5 min Comments PT providing push to right to encourage patient inc wt bearing to left squats Standing Exercise Name sit to stand Reps/Minutes 15x Comments mat table, mirror, cues for alignment. Therapeutic Activity Therapeutic Activity sit>sideling> kneeling Comments seated to sidelying with min assist, mod assist to knees and right LE but unable to maintain position secondary to pain and/or fear avoidance. 3 trials Gait Training Gait Activity uneven Description uneven Device Used AFO, no cane Level of Assistance CGA-mod assist Surface 1-2 red yoga mat, folded Comments mod assist over thicker folded mat pre-gait weight shifts Description side to side (AFO doffed) Device Used none Level of Assistance CG, verbal cues Surface firm Distance/Duration rail on R Treatment Focus increased weight bearing left LE (cued >50-75%) Comments mirror for visual feedback 1 Description level surface Device Used AFO Level of Assistance CGA, cues Surface indoor carpet, linoleum, firm Distance/Duration 150 ft, 60 ft Treatment Focus gait without device, improved weight shift and stance time left Comments Patient reporting right LE fatigue PT-OP-R Modalities Start: 05/28/19 08:11 Freq: Status: Active Protocol: Document 12/29/20 10:30 SP (Rec: 12/29/20 11:44 SP [id number]) Electric Stimulation Electric Stimulation Functional Electric Stimulation Body Location L hand/ forearm extensors Duration (Minutes) 2 Patient Position Sitting Comments NMES- education on placement of pad for muscular feedback extension based- check self placement understanding. PT-OP-T Assessment and Plan Start: 05/28/19 08:11 Freq: Status: Active Protocol: Document 09/29/21 10:40 SAK (Rec: 09/29/21 15:05 SAK [id number]) Physical Therapy Assessment Goals Five Impairment gait speed not adequate for safe community ambulation Bander And Cellophaner Machine Helper Goal (LTG) Patient able to ambulate 300' in 6 min. TUG score no greater than 30 sec 06/02/20: 134' 08/28/20: 144', likely not as high due to new shoes and wearing old AFO because fits better in new shoes. Requires level 4 theraband for derotation of left LE into more neutral position for gait . 09/19/20: 146 ft 6 min w/ QC and Tb wrapping to LLE. 11/13/20: 153 ft CG w/ SPC 2>3 pt gait w/out metronome w/ reported L glut/ lateral leg burn pain, 2 step brief stand breaks. 11/24/20: progressing 173.7 ft using SPC, predominently 2 pt gait. TUG score 59 sec using SP 01/27/21: TUG 55 sec. , 6 min walk test 199.9 ft with SPC 03/19/21: 6 min walk test 165' , TUG 1:20. Continue with use of theraband for derotation of excess ER left LE with gait . 04/16/21: 6MWT 190 ft w/ SPC and TB wrapping assist hip IR. 04/23/21: 6MWT 181 ftw/ SPC and TB wrapping 06/25/21: 6MWT 180 ft with SPC and TB wrapping. TU sec 09/16/21 - average gait speed 0 .14 m/s on 6MWT which pt completed with no AD (AFO only ). LTG Duration 12/24/21 Four Impairment requires assistance with bed mobility and transfers Short Term Goal (STG) Patient will be able to perform all bed mobility independently to improve her functional independence. 10/31/19: good goal progress 06/02/20:inconsistent, but min assist most times 11/24/20: Met goal: pt is independent in supine>sit. STG Duration goal met ( independent 11/24/20 ) Fpc Goal (LTG) Patient will be able to perform a floor transfer with SB to min assist. 5x sit to stand score in no more than 15 sec as measure of functional strength for transfers 10/31/19: max assist today 01/02/20: has not been willing to try since 10/31/19 06/02/21: does not feel strong enough to try yet. 06/25/21: 08/28/20: max assistance required 12/02/20: remains at max assist , not recently willing to attempt floor transfer. 5x sit to stand score 26 seconds 01/27/21: not tried recently. 03/24/21: 5x sit to stand 25 sec. No floor transfer today 06/25/21: 5x sit to stand 24 sec. Patient didn't feel up to doing floor transfer, remains a concern 09/16/21: Pt willing to work on floor transfers but demonstrates a great deal of fear avoidance. 5 Time Sit to Stand today in 30.4 seconds from standard height chair with no use of RUE LTG Duration 12/24/21 Three Impairment weakness left UE and LE s/p CVA Bander And Cellophaner Machine Helper Goal (LTG) Improve functional strength in left LE, as evidenced by ability to move from sit > < stand without use of UE's. 10/31/19: OT starts tomorrow. Good progress with sit to stand, though mostly using right UE and LE 01/02/20: Improving ability to perform, able to increase weight-bearing through left LE with cues, but still some use of right UE 05/26/20: With manual and visual feedback patient able to transfer sit to stand with only CG A. 08/28/20: inconsistent ability to move sit to stand without using UE's, but able to do transfer without physical assistance 11/24/20: Goal Met 01/27/21: more difficulty recently, having to use hands. Goal reactivated. 03/24/21: difficulty motor planning and performing sit to stand today. 06/25/21: patient becomes frustrated with sit to stand transfers as she expresses she feels she has a hard time remembering how to do it, has to use right UE 09/16/21 Pt completes sit to stand x 5 today without use of RUE from std height chair. LTG Duration 12/24/21 Two Impairment balance dysfunction with high risk for falls Fpc Goal (LTG) Improve balance as evidenced by improvement in Tinnetti balance and gait score to low fall risk range to improve safety in the home and community. 10/31/19: remains high risk for falls 01/02/20: some improvement but still in high risk category 05/26/20: Tinetti score in high risk category 08/28/20: moderate risk for falls 12/02/20: remains in moderate risk for falls. 01/27/21: moderate risk for falls 03/24/21: no significant change noted today but again having poor day. 06/25/21: Moderate risk for falls, though no reported falls over past few months. 09/16/21 No change LTG Duration 12/24/21 One Impairment requires armaan-walker for gait, limited to household gait Fpc Goal (LTG) Patient able to ambulate with least restrictive device for functional community distances to improve her functional independence and quality of life. 10/30/19: no progress due to Covid 19. 11/02/19: able to ambulate with quad cane but with very slow speed, household distances, very short community distances . 05/26/20: Now able to ambulate with use of single point cane and use of L4 theraband wrapped around left LE to facilitate left LE internal rotation for improved alignment. Patient unable to don the theraband on her own. Gait is for short distances and very slow at 39 ft in 2 min. 08/28/20: has demonstrated improved gait ability, still using theraband for derotation of LE for more neutral position. Able to consistenly use quad cane and is increasing stride length especially with cues. Now able to ascend and descend 4 stairs with min assist using railing. Mod assist on 6 stairs. 12/02/20: Patient ambulating with SPC, mostly household but some community distances, improved gait alignment with use of theraband for improved alignment. Patient not consistently able to ambulate community distances due to pain in her left LE, and lack of neurological control left LE. Patient may benefit from modification to her current AFO or fabrication of new AFO. 173 ft in 6 minutes 01/27/21: using SPC. Limitations due to left foot, knee and hip pain, right wrist pain 6 min walk test improved to 199.9 feet today 03/24/21: slower 6 min walk test today as above. Has had modification to her AFO with some improvement in her function, but had poor day today. 06/25/21: 180' on 6 min walk test, patient reports left knee feeling wonky, and right UE still painful due to surgery' having stitches out today. Also c/o lack of caregiver recently has limited her walking, no outings. Will try again next session. 09/16/21: Pt completes 6MWT without cane today/ Average gait speed 0.14 m/s. LTG Duration 12/24/21 Progress Towards Goals Progress Towards Goals Progressing Toward Goals Assessment Summary Assessment Adelaide performed 3 trials moving from sitting to sidelying toward kneeling with CG to mod assist, unable to get fully onto knees, difficulty with motor planning and fearful. Physical Therapy Plan Frequency and Duration Frequency of Treatment 2x/Week Duration of Treatment 3 months Plan of Care Start Date 09/23/21 Plan of Care End Date 12/24/21 Therapeutic Interventions Therapeutic Interventions Aquatic Therapy,Balance Training,Gait Training,Home Exercise Program,Neuromuscular Re-education,Orthotic/ Prosthetic Management,Patient/ Caregiver Education,Self-Care/ Home Management,Taping, Therapeutic Activities, Therapeutic Exercises Modalities Cold Pack/Ice Massage,Hot Packs Next Visit Focus/Plan Next Note Type Treatment Note Next Visit Plan Standing hip extension with theraband, progress gait training to increased uneven surfaces including stepping onto and over objects. Continue activity progression toward floor transfer.
--- NOTE | 2021-10-01 11:24 | PT.OTN ---
Current Diagnoses Difficulty in walking, not elsewhere classified (10/01/21) Weakness (10/01/21) History of falling (10/01/21) Physical Therapy Treatment Note PT-OP-A Visit Information Start: 05/28/19 08:11 Freq: Status: Active Protocol: Document 10/01/21 10:33 SAK (Rec: 10/01/21 11:24 SAK [id number]) Out-Patient Physical Therapy Visit Information Visit Information Visit Type Treatment Note Visit Start Time 10:35 Visit Stop Time 11:20 Total Visit Minutes 45 Visit Number 139 Precautions Precautions Seizure disorder memory dysfunction PT-OP-B Current Condition Start: 05/28/19 08:11 Freq: Status: Active Protocol: Document 06/04/20 11:15 SAK (Rec: 06/05/20 16:34 SAK [id number]) Current Condition History of Current Condition Onset Date 2014 Current Complaints weakness, requires assistance with all mobility and household tasks History of Current Condition Reports that she suffered a stroke in 2014 after surgery for brain aneurysm. CVA caused weakness on the left side of her body, gait and balance difficulty, seizures. PT-OP-C Subjective Start: 05/28/19 08:11 Freq: Status: Active Protocol: Document 10/01/21 10:33 SAK (Rec: 10/01/21 11:24 SAK [id number]) OP-PT Subjective Patient Comments Patient Comments Sore and stiff, but ok, willing to do stairs to start session today. PT-OP-D Balance Start: 05/28/19 08:11 Freq: Status: Active Protocol: Document 05/29/19 14:30 SAK (Rec: 05/30/19 14:24 [facility] [id number]) OP-PT Balance Assessment Sitting Balance Static Sitting Balance Ability Good Dynamic Sitting Balance Ability Fair Standing Balance Static Standing Balance Ability Good Dynamic Standing Balance Ability Fair Device Used hemiwalker right Tinetti Balance Assessment Sitting Balance Sitting Balance Steady, safe Arising from Chair Attempts to Arise Able, requires >1 attempt Standing Balance Immediate Standing Balance Steady with support Standing Balance Steady, wide stance Nudged Response Begins to fall Standing with Eyes Closed Unsteady Turning Step Pattern Turning 360 Degrees Discontinuous steps Stability Turning 360 Degrees Unsteady, grabs/staggers Sitting Down Sitting Down Uses arms or unsteady Gait and Step Initiation of Gait Hesitancy, mult. attempts Right Foot Step Length Does not pass stance ft. Right Foot Step Height Does not clear floor Left Foot Step Length Does not pass stance foot Left Foot Step Height Does not clear floor Step Description Step Symmetry Step length not equal Gait Description Path Description Mild/moderate deviation Trunk Description Marked sway or uses aide Walking Stance Heels apart Scoring and Interpretation Tinetti Composite Score (points) 6 Interpretation of Scores High risk for falls(< 19) Herrera Fall Scale Copyright Permission PT-OP-E Functional Tests Start: 05/28/19 08:11 Freq: Status: Active Protocol: Document 05/14/21 10:50 [facility] (Rec: 05/14/21 11:08 [facility] [id number]) Functional Tests 6 Minute Walk Test Distance 169ft Device Used spc, TB wrapping Comments pt has headache today and feels that may have slowed her down. Timed Up and Go (TUG) Score 107 seconds PT-OP-G Mobility & Gait Start: 05/28/19 08:11 Freq: Status: Active Protocol: Document 05/26/20 11:15 SAK (Rec: 05/26/20 17:04 SAK [id number]) OP Mobility Evaluation Bed Mobility Rolling min assist to right CGA to left Supine to and from Sit min assist to right CGA to left Transfers Sit to Stand CGA to min assist without UE use Bed to Chair Transfers requires use of right UE but able to do with SBA Floor Transfers unable PT-OP-H Neuro Start: 05/28/19 08:11 Freq: Status: Active Protocol: Document 05/29/19 14:30 SAK (Rec: 05/30/19 14:24 SAK [id number]) Sensation Evaluation Gross Sensation Gross Sensation Left UE Impaired,Left LE Impaired Sensation Description Paresthesia,Numbness Coordination Evaluation Lower Extremity Tests Left Alternate Heel to Knee; Heel to Toe Test Moderate Impairment Heel on Boles Test Moderate Impairment Foot Tapping Test Moderate Impairment PT-OP-K Range of Motion Start: 05/28/19 08:11 Freq: Status: Active Protocol: Document 05/26/20 11:15 SAK (Rec: 05/26/20 17:04 SAK [id number]) Hip Goniometric Range of Motion Hip jake Hip ROM WFL Yes Comments actively right LE, passively left LE Knee Goniometric Range of Motion Knee jake Knee ROM WFL Yes Ankle and Foot Goniometric Range of Motion Ankle and Foot Left Passive Ankle/Foot ROM WFL No Left Active Ankle/Foot ROM WFL No PT-OP-M Strength Start: 05/28/19 08:11 Freq: Status: Active Protocol: Document 05/26/20 11:15 SAK (Rec: 05/26/20 17:04 [facility] [id number]) Hip Strength Hip Manual Muscle Testing Left Flexion (L2) 3- Fair- Extension (S1) 2 Poor Abduction 2+ Poor+ External Rotation 3- Fair- Internal Rotation 3+ Fair+ Right Flexion (L2) 4 Good Extension (S1) 4- Good- Abduction 4 Good External Rotation 3+ Fair+ Internal Rotation 4- Good- PT-OP-Q Treatments Start: 05/28/19 08:11 Freq: Status: Active Protocol: Document 10/01/21 10:33 SAK (Rec: 10/01/21 11:24 [facility] [id number]) Cardio Equipment Recumbent Stepper (Sci-Fit) Duration (Minutes) 10 Resistance 2.1 Seat Position 11 Other cues for left LE alignment. Therapeutic Exercises Standing Exercises resisted standing Standing Exercise Name rhythmic stabilization Equipment Used mirror for visual feedback Reps/Minutes 5 min Comments PT providing push to right to encourage patient inc wt bearing to left Gait Training Gait Activity uneven Description uneven Device Used AFO, no cane Level of Assistance CGA-mod assist Surface 1-2 red yoga mat, stacked Comments parallel bars, cues for min UE use stairs Description 4 stairs ascend and descend Device Used R railing AFO, heel lift Level of Assistance CG- Min A Distance/Duration 1 set of 10. Treatment Focus alternating LE pattern facilitation Comments verbal and manual cues to increase weight shift to left LE, unlock left knee, step-to pattern, cues toes pointed forward, dec right UEuse. pre-gait weight shifts Description side to side (AFO doffed) Device Used none Level of Assistance CG, verbal cues Surface firm Distance/Duration rail on R Treatment Focus increased weight bearing left LE (cued >50-75%) Comments mirror for visual feedback 1 Description level surface Device Used AFO Level of Assistance CGA, cues Surface indoor carpet, linoleum, firm Distance/Duration 60 ft, 20 ft Treatment Focus gait without device, improved weight shift and stance time left Comments Patient reporting right LE fatigue PT-OP-R Modalities Start: 05/28/19 08:11 Freq: Status: Active Protocol: Document 12/29/20 10:30 SP (Rec: 08/23/21 11:44 SP [id number]) Electric Stimulation Electric Stimulation Functional Electric Stimulation Body Location L hand/ forearm extensors Duration (Minutes) 2 Patient Position Sitting Comments NMES- education on placement of pad for muscular feedback extension based- check self placement understanding. PT-OP-T Assessment and Plan Start: 05/28/19 08:11 Freq: Status: Active Protocol: Document 10/01/21 10:33 SAK (Rec: 10/01/21 11:24 [facility] [id number]) Physical Therapy Assessment Goals Five Impairment gait speed not adequate for safe community ambulation Retirement Goal (LTG) Patient able to ambulate 300' in 6 min. TUG score no greater than 30 sec 06/02/20: 134' 08/28/20: 144', likely not as high due to new shoes and wearing old AFO because fits better in new shoes. Requires level 4 theraband for derotation of left LE into more neutral position for gait . 09/19/20: 146 ft 6 min w/ QC and Tb wrapping to LLE. 11/13/20: 153 ft CG w/ SPC 2>3 pt gait w/out metronome w/ reported L glut/ lateral leg burn pain, 2 step brief stand breaks. 11/24/20: progressing 173.7 ft using SPC, predominently 2 pt gait. TUG score 59 sec using SP 01/27/21: TUG 55 sec. , 6 min walk test 199.9 ft with SPC 03/19/21: 6 min walk test 165' , TUG 1:20. Continue with use of theraband for derotation of excess ER left LE with gait . 04/16/21: 6MWT 190 ft w/ SPC and TB wrapping assist hip IR. 04/23/21: 6MWT 181 ftw/ SPC and TB wrapping 06/25/21: 6MWT 180 ft with SPC and TB wrapping. TU sec 09/16/21 - average gait speed 0 .14 m/s on 6MWT which pt completed with no AD (AFO only ). LTG Duration 12/24/21 Four Impairment requires assistance with bed mobility and transfers Short Term Goal (STG) Patient will be able to perform all bed mobility independently to improve her functional independence. 10/31/19: good goal progress 06/02/20:inconsistent, but min assist most times 11/24/20: Met goal: pt is independent in supine>sit. STG Duration goal met ( independent 11/24/20 ) Retirement Goal (LTG) Patient will be able to perform a floor transfer with SB to min assist. 5x sit to stand score in no more than 15 sec as measure of functional strength for transfers 10/31/19: max assist today 01/02/20: has not been willing to try since 10/31/19 06/02/21: does not feel strong enough to try yet. 06/25/21: 08/28/20: max assistance required 12/02/20: remains at max assist , not recently willing to attempt floor transfer. 5x sit to stand score 26 seconds 01/27/21: not tried recently. 03/24/21: 5x sit to stand 25 sec. No floor transfer today 06/25/21: 5x sit to stand 24 sec. Patient didn't feel up to doing floor transfer, remains a concern 09/16/21: Pt willing to work on floor transfers but demonstrates a great deal of fear avoidance. 5 Time Sit to Stand today in 30.4 seconds from standard height chair with no use of RUE LTG Duration 12/24/21 Three Impairment weakness left UE and LE s/p CVA Retirement Goal (LTG) Improve functional strength in left LE, as evidenced by ability to move from sit > < stand without use of UE's. 10/31/19: OT starts tomorrow. Good progress with sit to stand, though mostly using right UE and LE 01/02/20: Improving ability to perform, able to increase weight-bearing through left LE with cues, but still some use of right UE 05/26/20: With manual and visual feedback patient able to transfer sit to stand with only CG A. 08/28/20: inconsistent ability to move sit to stand without using UE's, but able to do transfer without physical assistance 11/24/20: Goal Met 01/27/21: more difficulty recently, having to use hands. Goal reactivated. 03/24/21: difficulty motor planning and performing sit to stand today. 06/25/21: patient becomes frustrated with sit to stand transfers as she expresses she feels she has a hard time remembering how to do it, has to use right UE 09/16/21 Pt completes sit to stand x 5 today without use of RUE from std height chair. LTG Duration 12/24/21 Two Impairment balance dysfunction with high risk for falls [employer] Operator Goal (LTG) Improve balance as evidenced by improvement in Tinnetti balance and gait score to low fall risk range to improve safety in the home and community. 10/31/19: remains high risk for falls 01/02/20: some improvement but still in high risk category 05/26/20: Tinetti score in high risk category 08/28/20: moderate risk for falls 12/02/20: remains in moderate risk for falls. 01/27/21: moderate risk for falls 03/24/21: no significant change noted today but again having poor day. 06/25/21: Moderate risk for falls, though no reported falls over past few months. 09/16/21 No change LTG Duration 12/24/21 One Impairment requires armaan-walker for gait, limited to household gait Retirement Goal (LTG) Patient able to ambulate with least restrictive device for functional community distances to improve her functional independence and quality of life. 10/30/19: no progress due to Covid 19. 11/02/19: able to ambulate with quad cane but with very slow speed, household distances, very short community distances . 05/26/20: Now able to ambulate with use of single point cane and use of L4 theraband wrapped around left LE to facilitate left LE internal rotation for improved alignment. Patient unable to don the theraband on her own. Gait is for short distances and very slow at 39 ft in 2 min. 08/28/20: has demonstrated improved gait ability, still using theraband for derotation of LE for more neutral position. Able to consistenly use quad cane and is increasing stride length especially with cues. Now able to ascend and descend 4 stairs with min assist using railing. Mod assist on 6 stairs. 12/02/20: Patient ambulating with SPC, mostly household but some community distances, improved gait alignment with use of theraband for improved alignment. Patient not consistently able to ambulate community distances due to pain in her left LE, and lack of neurological control left LE. Patient may benefit from modification to her current AFO or fabrication of new AFO. 173 ft in 6 minutes 01/27/21: using SPC. Limitations due to left foot, knee and hip pain, right wrist pain 6 min walk test improved to 199.9 feet today 03/24/21: slower 6 min walk test today as above. Has had modification to her AFO with some improvement in her function, but had poor day today. 06/25/21: 180' on 6 min walk test, patient reports left knee feeling wonky, and right UE still painful due to surgery' having stitches out today. Also c/o lack of caregiver recently has limited her walking, no outings. Will try again next session. 09/16/21: Pt completes 6MWT without cane today/ Average gait speed 0.14 m/s. LTG Duration 12/24/21 Assessment Summary Assessment [place] in good spirits today, less fearful on stairs, no physical assist needed but much cueing for weight shift and sequencing, step-to pattern. Today's session focused gait and balance. Physical Therapy Plan Frequency and Duration Frequency of Treatment 2x/Week Duration of Treatment 3 months Plan of Care Start Date 09/23/21 Plan of Care End Date 12/24/21 Therapeutic Interventions Therapeutic Interventions Aquatic Therapy,Balance Training,Gait Training,Home Exercise Program,Neuromuscular Re-education,Orthotic/ Prosthetic Management,Patient/ Caregiver Education,Self-Care/ Home Management,Taping, Therapeutic Activities, Therapeutic Exercises Modalities Cold Pack/Ice Massage,Hot Packs Next Visit Focus/Plan Next Note Type Treatment Note Next Visit Plan Work on black mat progression toward kneeling position for floor transfer. Continue strengthening, gait, balance work.
--- NOTE | 2021-10-06 10:36 | PT.OTN ---
Current Diagnoses Difficulty in walking, not elsewhere classified (10/06/21) Weakness (10/06/21) History of falling (10/06/21) Physical Therapy Treatment Note PT-OP-A Visit Information Start: 05/28/19 08:11 Freq: Status: Active Protocol: Document 10/06/21 09:46 AW (Rec: 10/06/21 10:36 AW [id number]) Out-Patient Physical Therapy Visit Information Visit Information Visit Type Treatment Note Visit Start Time 09:46 Visit Stop Time 10:36 Total Visit Minutes 50 Visit Number 140 Precautions Precautions Seizure disorder memory dysfunction PT-OP-B Current Condition Start: 05/28/19 08:11 Freq: Status: Active Protocol: Document 06/04/20 11:15 SAK (Rec: 06/05/20 16:34 SAK [id number]) Current Condition History of Current Condition Onset Date 2014 Current Complaints weakness, requires assistance with all mobility and household tasks History of Current Condition Reports that she suffered a stroke in 2014 after surgery for brain aneurysm. CVA caused weakness on the left side of her body, gait and balance difficulty, seizures. PT-OP-C Subjective Start: 05/28/19 08:11 Freq: Status: Active Protocol: Document 10/06/21 09:46 AW (Rec: 10/06/21 10:36 AW [id number]) OP-PT Subjective Patient Comments Patient Comments Feeling a little sore today but does not limit effort. PT-OP-D Balance Start: 05/28/19 08:11 Freq: Status: Active Protocol: Document 05/29/19 14:30 SAK (Rec: 05/30/19 14:24 SAK [id number]) OP-PT Balance Assessment Sitting Balance Static Sitting Balance Ability Good Dynamic Sitting Balance Ability Fair Standing Balance Static Standing Balance Ability Good Dynamic Standing Balance Ability Fair Device Used [facility] right Tinetti Balance Assessment Sitting Balance Sitting Balance Steady, safe Arising from Chair Attempts to Arise Able, requires >1 attempt Standing Balance Immediate Standing Balance Steady with support Standing Balance Steady, wide stance Nudged Response Begins to fall Standing with Eyes Closed Unsteady Turning Step Pattern Turning 360 Degrees Discontinuous steps Stability Turning 360 Degrees Unsteady, grabs/staggers Sitting Down Sitting Down Uses arms or unsteady Gait and Step Initiation of Gait Hesitancy, mult. attempts Right Foot Step Length Does not pass stance ft. Right Foot Step Height Does not clear floor Left Foot Step Length Does not pass stance foot Left Foot Step Height Does not clear floor Step Description Step Symmetry Step length not equal Gait Description Path Description Mild/moderate deviation Trunk Description Marked sway or uses aide Walking Stance Heels apart Scoring and Interpretation Tinetti Composite Score (points) 6 Interpretation of Scores High risk for falls(< 19) Herrera Fall Scale Copyright Permission PT-OP-E Functional Tests Start: 05/28/19 08:11 Freq: Status: Active Protocol: Document 05/14/21 10:50 AMH (Rec: 05/14/21 11:08 AMH [id number]) Functional Tests 6 Minute Walk Test Distance 169ft Device Used spc, TB wrapping Comments pt has headache today and feels that may have slowed her down. Timed Up and Go (TUG) Score 107 seconds PT-OP-G Mobility & Gait Start: 05/28/19 08:11 Freq: Status: Active Protocol: Document 05/26/20 11:15 SAK (Rec: 05/26/20 17:04 SAK [id number]) OP Mobility Evaluation Bed Mobility Rolling min assist to right CGA to left Supine to and from Sit min assist to right CGA to left Transfers Sit to Stand CGA to min assist without UE use Bed to Chair Transfers requires use of right UE but able to do with SBA Floor Transfers unable PT-OP-H Neuro Start: 05/28/19 08:11 Freq: Status: Active Protocol: Document 05/29/19 14:30 SAK (Rec: 05/30/19 14:24 SAK [id number]) Sensation Evaluation Gross Sensation Gross Sensation Left UE Impaired,Left LE Impaired Sensation Description Paresthesia,Numbness Coordination Evaluation Lower Extremity Tests Left Alternate Heel to Knee; Heel to Toe Test Moderate Impairment Heel on Boles Test Moderate Impairment Foot Tapping Test Moderate Impairment PT-OP-K Range of Motion Start: 05/28/19 08:11 Freq: Status: Active Protocol: Document 05/26/20 11:15 SAK (Rec: 05/26/20 17:04 SAK [id number]) Hip Goniometric Range of Motion Hip jake Hip ROM WFL Yes Comments actively right LE, passively left LE Knee Goniometric Range of Motion Knee jake Knee ROM WFL Yes Ankle and Foot Goniometric Range of Motion Ankle and Foot Left Passive Ankle/Foot ROM WFL No Left Active Ankle/Foot ROM WFL No PT-OP-M Strength Start: 05/28/19 08:11 Freq: Status: Active Protocol: Document 05/26/20 11:15 SAK (Rec: 05/26/20 17:04 SAK [id number]) Hip Strength Hip Manual Muscle Testing Left Flexion (L2) 3- Fair- Extension (S1) 2 Poor Abduction 2+ Poor+ External Rotation 3- Fair- Internal Rotation 3+ Fair+ Right Flexion (L2) 4 Good Extension (S1) 4- Good- Abduction 4 Good External Rotation 3+ Fair+ Internal Rotation 4- Good- PT-OP-Q Treatments Start: 05/28/19 08:11 Freq: Status: Active Protocol: Document 10/06/21 09:46 AW (Rec: 10/06/21 10:36 AW [id number]) Cardio Equipment Recumbent Stepper (Sci-Fit) Duration (Minutes) 10 Resistance 2.1 Seat Position 11 Other cues for left LE alignment. Therapeutic Exercises Standing Exercises resisted standing Standing Exercise Name rhythmic stabilization Equipment Used mirror for visual feedback Reps/Minutes 5 min Comments PT providing push to right to encourage patient inc wt bearing to left sit to stands Standing Exercise Name sit to stand Equipment Used mesh chair Reps/Minutes x 10 reps Comments cues for leftward weight shift Gait Training Gait Activity uneven Description uneven Device Used AFO, no cane Level of Assistance CGA-min assist Surface 1-2 red yoga mat, stacked Comments parallel bars, cues for min UE use stairs Description 4 stairs ascend and descend Device Used R railing AFO, heel lift Level of Assistance CG Distance/Duration 1 set of 14 Treatment Focus alternating LE pattern facilitation Comments verbal and manual cues to increase weight shift to left LE, unlock left knee, step-to pattern, cues toes pointed forward, dec right UEuse. 1 Description level surface Device Used AFO Level of Assistance CGA, cues Surface indoor carpet, tile, firm Distance/Duration 60 ft x 3 Treatment Focus gait without device, improved weight shift and stance time left Comments Patient reporting right LE fatigue PT-OP-R Modalities Start: 05/28/19 08:11 Freq: Status: Active Protocol: Document 12/29/20 10:30 SP (Rec: 12/29/20 11:44 SP [id number]) Electric Stimulation Electric Stimulation Functional Electric Stimulation Body Location L hand/ forearm extensors Duration (Minutes) 2 Patient Position Sitting Comments NMES- education on placement of pad for muscular feedback extension based- check self placement understanding. PT-OP-T Assessment and Plan Start: 05/28/19 08:11 Freq: Status: Active Protocol: Document 10/06/21 09:46 AW (Rec: 10/06/21 10:36 AW [id number]) Physical Therapy Assessment Goals Five Impairment gait speed not adequate for safe community ambulation Information Technology Advisor Goal (LTG) Patient able to ambulate 300' in 6 min. TUG score no greater than 30 sec 06/02/20: 134' 08/28/20: 144', likely not as high due to new shoes and wearing old AFO because fits better in new shoes. Requires level 4 theraband for derotation of left LE into more neutral position for gait . 09/19/20: 146 ft 6 min w/ QC and Tb wrapping to LLE. 11/13/20: 153 ft CG w/ SPC 2>3 pt gait w/out metronome w/ reported L glut/ lateral leg burn pain, 2 step brief stand breaks. 11/24/20: progressing 173.7 ft using SPC, predominently 2 pt gait. TUG score 59 sec using SP 01/27/21: TUG 55 sec. , 6 min walk test 199.9 ft with SPC 03/19/21: 6 min walk test 165' , TUG 1:20. Continue with use of theraband for derotation of excess ER left LE with gait . 04/16/21: 6MWT 190 ft w/ SPC and TB wrapping assist hip IR. 04/23/21: 6MWT 181 ftw/ SPC and TB wrapping 06/25/21: 6MWT 180 ft with SPC and TB wrapping. TU sec 09/16/21 - average gait speed 0 .14 m/s on 6MWT which pt completed with no AD (AFO only ). LTG Duration 12/24/21 Four Impairment requires assistance with bed mobility and transfers Short Term Goal (STG) Patient will be able to perform all bed mobility independently to improve her functional independence. 10/31/19: good goal progress 06/02/20:inconsistent, but min assist most times 11/24/20: Met goal: pt is independent in supine>sit. STG Duration goal met ( independent 11/24/20 ) [facility] Goal (LTG) Patient will be able to perform a floor transfer with SB to min assist. 5x sit to stand score in no more than 15 sec as measure of functional strength for transfers 10/31/19: max assist today 01/02/20: has not been willing to try since 10/31/19 06/02/21: does not feel strong enough to try yet. 06/25/21: 08/28/20: max assistance required 12/02/20: remains at max assist , not recently willing to attempt floor transfer. 5x sit to stand score 26 seconds 01/27/21: not tried recently. 03/24/21: 5x sit to stand 25 sec. No floor transfer today 06/25/21: 5x sit to stand 24 sec. Patient didn't feel up to doing floor transfer, remains a concern 09/16/21: Pt willing to work on floor transfers but demonstrates a great deal of fear avoidance. 5 Time Sit to Stand today in 30.4 seconds from standard height chair with no use of RUE LTG Duration 12/24/21 Three Impairment weakness left UE and LE s/p CVA Information Technology Advisor Goal (LTG) Improve functional strength in left LE, as evidenced by ability to move from sit > < stand without use of UE's. 10/31/19: OT starts tomorrow. Good progress with sit to stand, though mostly using right UE and LE 01/02/20: Improving ability to perform, able to increase weight-bearing through left LE with cues, but still some use of right UE 05/26/20: With manual and visual feedback patient able to transfer sit to stand with only CG A. 08/28/20: inconsistent ability to move sit to stand without using UE's, but able to do transfer without physical assistance 11/24/20: Goal Met 01/27/21: more difficulty recently, having to use hands. Goal reactivated. 03/24/21: difficulty motor planning and performing sit to stand today. 06/25/21: patient becomes frustrated with sit to stand transfers as she expresses she feels she has a hard time remembering how to do it, has to use right UE 09/16/21 Pt completes sit to stand x 5 today without use of RUE from std height chair. LTG Duration 12/24/21 Two Impairment balance dysfunction with high risk for falls [facility]ci Goal (LTG) Improve balance as evidenced by improvement in Tinnetti balance and gait score to low fall risk range to improve safety in the home and community. 10/31/19: remains high risk for falls 01/02/20: some improvement but still in high risk category 05/26/20: Tinetti score in high risk category 08/28/20: moderate risk for falls 12/02/20: remains in moderate risk for falls. 01/27/21: moderate risk for falls 03/24/21: no significant change noted today but again having poor day. 06/25/21: Moderate risk for falls, though no reported falls over past few months. 09/16/21 No change LTG Duration 12/24/21 One Impairment requires armaan-walker for gait, limited to household gait [facility]ci Goal (LTG) Patient able to ambulate with least restrictive device for functional community distances to improve her functional independence and quality of life. 10/30/19: no progress due to Covid 19. 11/02/19: able to ambulate with quad cane but with very slow speed, household distances, very short community distances . 05/26/20: Now able to ambulate with use of single point cane and use of L4 theraband wrapped around left LE to facilitate left LE internal rotation for improved alignment. Patient unable to don the theraband on her own. Gait is for short distances and very slow at 39 ft in 2 min. 08/28/20: has demonstrated improved gait ability, still using theraband for derotation of LE for more neutral position. Able to consistenly use quad cane and is increasing stride length especially with cues. Now able to ascend and descend 4 stairs with min assist using railing. Mod assist on 6 stairs. 12/02/20: Patient ambulating with SPC, mostly household but some community distances, improved gait alignment with use of theraband for improved alignment. Patient not consistently able to ambulate community distances due to pain in her left LE, and lack of neurological control left LE. Patient may benefit from modification to her current AFO or fabrication of new AFO. 173 ft in 6 minutes 01/27/21: using SPC. Limitations due to left foot, knee and hip pain, right wrist pain 6 min walk test improved to 199.9 feet today 03/24/21: slower 6 min walk test today as above. Has had modification to her AFO with some improvement in her function, but had poor day today. 06/25/21: 180' on 6 min walk test, patient reports left knee feeling wonky, and right UE still painful due to surgery' having stitches out today. Also c/o lack of caregiver recently has limited her walking, no outings. Will try again next session. 09/16/21: Pt completes 6MWT without cane today/ Average gait speed 0.14 m/s. LTG Duration 12/24/21 Assessment Summary Assessment Adelaide showed good effort with all activities today. Limited rests breaks required. Stairs improved with less cueing. Physical Therapy Plan Frequency and Duration Frequency of Treatment 2x/Week Duration of Treatment 3 months Plan of Care Start Date 09/23/21 Plan of Care End Date 12/24/21 Therapeutic Interventions Therapeutic Interventions Aquatic Therapy,Balance Training,Gait Training,Home Exercise Program,Neuromuscular Re-education,Orthotic/ Prosthetic Management,Patient/ Caregiver Education,Self-Care/ Home Management,Taping, Therapeutic Activities, Therapeutic Exercises Modalities Cold Pack/Ice Massage,Hot Packs Next Visit Focus/Plan Next Note Type Treatment Note Next Visit Plan Work on black mat progression toward kneeling position for floor transfer. Continue strengthening, gait, balance work.
--- NOTE | 2021-10-13 10:26 | PT.OTN ---
Current Diagnoses Difficulty in walking, not elsewhere classified (10/13/21) Weakness (10/13/21) History of falling (10/13/21) Physical Therapy Treatment Note PT-OP-A Visit Information Start: 05/28/19 08:11 Freq: Status: Active Protocol: Document 10/13/21 09:01 AW (Rec: 10/13/21 10:26 AW [id number]) Out-Patient Physical Therapy Visit Information Visit Information Visit Type Treatment Note Visit Start Time 09:48 Visit Stop Time 10:30 Total Visit Minutes 42 Visit Number 141 Precautions Precautions Seizure disorder memory dysfunction PT-OP-B Current Condition Start: 05/28/19 08:11 Freq: Status: Active Protocol: Document 06/04/20 11:15 SAK (Rec: 06/05/20 16:34 SAK [id number]) Current Condition History of Current Condition Onset Date 2014 Current Complaints weakness, requires assistance with all mobility and household tasks History of Current Condition Reports that she suffered a stroke in 2014 after surgery for brain aneurysm. CVA caused weakness on the left side of her body, gait and balance difficulty, seizures. PT-OP-C Subjective Start: 05/28/19 08:11 Freq: Status: Active Protocol: Document 10/13/21 09:01 AW (Rec: 10/13/21 10:26 AW [id number]) OP-PT Subjective Patient Comments Patient Comments Adelaide feels nauseous and low- energy today. PT-OP-D Balance Start: 05/28/19 08:11 Freq: Status: Active Protocol: Document 05/29/19 14:30 SAK (Rec: 05/30/19 14:24 SAK [id number]) OP-PT Balance Assessment Sitting Balance Static Sitting Balance Ability Good Dynamic Sitting Balance Ability Fair Standing Balance Static Standing Balance Ability Good Dynamic Standing Balance Ability Fair Device Used [facility] right Tinetti Balance Assessment Sitting Balance Sitting Balance Steady, safe Arising from Chair Attempts to Arise Able, requires >1 attempt Standing Balance Immediate Standing Balance Steady with support Standing Balance Steady, wide stance Nudged Response Begins to fall Standing with Eyes Closed Unsteady Turning Step Pattern Turning 360 Degrees Discontinuous steps Stability Turning 360 Degrees Unsteady, grabs/staggers Sitting Down Sitting Down Uses arms or unsteady Gait and Step Initiation of Gait Hesitancy, mult. attempts Right Foot Step Length Does not pass stance ft. Right Foot Step Height Does not clear floor Left Foot Step Length Does not pass stance foot Left Foot Step Height Does not clear floor Step Description Step Symmetry Step length not equal Gait Description Path Description Mild/moderate deviation Trunk Description Marked sway or uses aide Walking Stance Heels apart Scoring and Interpretation Tinetti Composite Score (points) 6 Interpretation of Scores High risk for falls(< 19) Herrera Fall Scale Copyright Permission PT-OP-E Functional Tests Start: 05/28/19 08:11 Freq: Status: Active Protocol: Document 05/14/21 10:50 AMH (Rec: 05/14/21 11:08 AMH [id number]) Functional Tests 6 Minute Walk Test Distance 169ft Device Used spc, TB wrapping Comments pt has headache today and feels that may have slowed her down. Timed Up and Go (TUG) Score 107 seconds PT-OP-G Mobility & Gait Start: 05/28/19 08:11 Freq: Status: Active Protocol: Document 05/26/20 11:15 SAK (Rec: 05/26/20 17:04 SAK [id number]) OP Mobility Evaluation Bed Mobility Rolling min assist to right CGA to left Supine to and from Sit min assist to right CGA to left Transfers Sit to Stand CGA to min assist without UE use Bed to Chair Transfers requires use of right UE but able to do with SBA Floor Transfers unable PT-OP-H Neuro Start: 05/28/19 08:11 Freq: Status: Active Protocol: Document 05/29/19 14:30 SAK (Rec: 05/30/19 14:24 SAK [id number]) Sensation Evaluation Gross Sensation Gross Sensation Left UE Impaired,Left LE Impaired Sensation Description Paresthesia,Numbness Coordination Evaluation Lower Extremity Tests Left Alternate Heel to Knee; Heel to Toe Test Moderate Impairment Heel on Boles Test Moderate Impairment Foot Tapping Test Moderate Impairment PT-OP-K Range of Motion Start: 05/28/19 08:11 Freq: Status: Active Protocol: Document 05/26/20 11:15 SAK (Rec: 05/26/20 17:04 SAK [id number]) Hip Goniometric Range of Motion Hip jake Hip ROM WFL Yes Comments actively right LE, passively left LE Knee Goniometric Range of Motion Knee jake Knee ROM WFL Yes Ankle and Foot Goniometric Range of Motion Ankle and Foot Left Passive Ankle/Foot ROM WFL No Left Active Ankle/Foot ROM WFL No PT-OP-M Strength Start: 05/28/19 08:11 Freq: Status: Active Protocol: Document 05/26/20 11:15 SAK (Rec: 05/26/20 17:04 SAK [id number]) Hip Strength Hip Manual Muscle Testing Left Flexion (L2) 3- Fair- Extension (S1) 2 Poor Abduction 2+ Poor+ External Rotation 3- Fair- Internal Rotation 3+ Fair+ Right Flexion (L2) 4 Good Extension (S1) 4- Good- Abduction 4 Good External Rotation 3+ Fair+ Internal Rotation 4- Good- PT-OP-Q Treatments Start: 05/28/19 08:11 Freq: Status: Active Protocol: Document 10/13/21 09:01 AW (Rec: 10/13/21 10:26 AW [id number]) Cardio Equipment Recumbent Stepper (Sci-Fit) Duration (Minutes) 10 Resistance 2.1 Seat Position 10 Other cues for left LE alignment. Gait Training Gait Activity stairs Description 4 stairs ascend and descend Device Used R railing AFO, heel lift Level of Assistance CG Distance/Duration 1 set of 14 Treatment Focus alternating LE pattern facilitation Comments Verbal and manual cues to increase weight shift to left LE, unlock left knee, step-to pattern, cues toes pointed forward, dec right UE use. 16 minutes 1 Description level surface Device Used AFO Level of Assistance CGA, cues Surface indoor carpet, tile, firm Distance/Duration 60 ft x 2 Treatment Focus gait without device, improved weight shift and stance time left Comments Patient reporting right LE fatigue. PT-OP-R Modalities Start: 05/28/19 08:11 Freq: Status: Active Protocol: Document 12/29/20 10:30 SP (Rec: 12/29/20 11:44 SP [id number]) Electric Stimulation Electric Stimulation Functional Electric Stimulation Body Location L hand/ forearm extensors Duration (Minutes) 2 Patient Position Sitting Comments NMES- education on placement of pad for muscular feedback extension based- check self placement understanding. PT-OP-T Assessment and Plan Start: 05/28/19 08:11 Freq: Status: Active Protocol: Document 10/13/21 09:01 AW (Rec: 10/13/21 10:26 AW [id number]) Physical Therapy Assessment Goals Five Impairment gait speed not adequate for safe community ambulation School Guidance Counselor Goal (LTG) Patient able to ambulate 300' in 6 min. TUG score no greater than 30 sec 06/02/20: 134' 08/28/20: 144', likely not as high due to new shoes and wearing old AFO because fits better in new shoes. Requires level 4 theraband for derotation of left LE into more neutral position for gait . 09/19/20: 146 ft 6 min w/ QC and Tb wrapping to LLE. 11/13/20: 153 ft CG w/ SPC 2>3 pt gait w/out metronome w/ reported L glut/ lateral leg burn pain, 2 step brief stand breaks. 11/24/20: progressing 173.7 ft using SPC, predominently 2 pt gait. TUG score 59 sec using SP 01/27/21: TUG 55 sec. , 6 min walk test 199.9 ft with SPC 03/19/21: 6 min walk test 165' , TUG 1:20. Continue with use of theraband for derotation of excess ER left LE with gait . 04/16/21: 6MWT 190 ft w/ SPC and TB wrapping assist hip IR. 04/23/21: 6MWT 181 ftw/ SPC and TB wrapping 06/25/21: 6MWT 180 ft with SPC and TB wrapping. TU sec 09/16/21 - average gait speed 0 .14 m/s on 6MWT which pt completed with no AD (AFO only ). LTG Duration 12/24/21 Four Impairment requires assistance with bed mobility and transfers Short Term Goal (STG) Patient will be able to perform all bed mobility independently to improve her functional independence. 10/31/19: good goal progress 06/02/20:inconsistent, but min assist most times 11/24/20: Met goal: pt is independent in supine>sit. STG Duration goal met ( independent 11/24/20 ) School Guidance Counselor Goal (LTG) Patient will be able to perform a floor transfer with SB to min assist. 5x sit to stand score in no more than 15 sec as measure of functional strength for transfers 10/31/19: max assist today 01/02/20: has not been willing to try since 10/31/19 06/02/21: does not feel strong enough to try yet. 06/25/21: 08/28/20: max assistance required 12/02/20: remains at max assist , not recently willing to attempt floor transfer. 5x sit to stand score 26 seconds 01/27/21: not tried recently. 03/24/21: 5x sit to stand 25 sec. No floor transfer today 06/25/21: 5x sit to stand 24 sec. Patient didn't feel up to doing floor transfer, remains a concern 09/16/21: Pt willing to work on floor transfers but demonstrates a great deal of fear avoidance. 5 Time Sit to Stand today in 30.4 seconds from standard height chair with no use of RUE LTG Duration 12/24/21 Three Impairment weakness left UE and LE s/p CVA Retirement Goal (LTG) Improve functional strength in left LE, as evidenced by ability to move from sit > < stand without use of UE's. 10/31/19: OT starts tomorrow. Good progress with sit to stand, though mostly using right UE and LE 01/02/20: Improving ability to perform, able to increase weight-bearing through left LE with cues, but still some use of right UE 05/26/20: With manual and visual feedback patient able to transfer sit to stand with only CG A. 08/28/20: inconsistent ability to move sit to stand without using UE's, but able to do transfer without physical assistance 11/24/20: Goal Met 01/27/21: more difficulty recently, having to use hands. Goal reactivated. 03/24/21: difficulty motor planning and performing sit to stand today. 06/25/21: patient becomes frustrated with sit to stand transfers as she expresses she feels she has a hard time remembering how to do it, has to use right UE 09/16/21 Pt completes sit to stand x 5 today without use of RUE from std height chair. LTG Duration 12/24/21 Two Impairment balance dysfunction with high risk for falls School Guidance Counselor Goal (LTG) Improve balance as evidenced by improvement in Tinnetti balance and gait score to low fall risk range to improve safety in the home and community. 10/31/19: remains high risk for falls 01/02/20: some improvement but still in high risk category 05/26/20: Tinetti score in high risk category 08/28/20: moderate risk for falls 12/02/20: remains in moderate risk for falls. 01/27/21: moderate risk for falls 03/24/21: no significant change noted today but again having poor day. 06/25/21: Moderate risk for falls, though no reported falls over past few months. 09/16/21 No change LTG Duration 12/24/21 One Impairment requires armaan-walker for gait, limited to household gait School Guidance Counselor Goal (LTG) Patient able to ambulate with least restrictive device for functional community distances to improve her functional independence and quality of life. 10/30/19: no progress due to Covid 19. 11/02/19: able to ambulate with quad cane but with very slow speed, household distances, very short community distances . 05/26/20: Now able to ambulate with use of single point cane and use of L4 theraband wrapped around left LE to facilitate left LE internal rotation for improved alignment. Patient unable to don the theraband on her own. Gait is for short distances and very slow at 39 ft in 2 min. 08/28/20: has demonstrated improved gait ability, still using theraband for derotation of LE for more neutral position. Able to consistenly use quad cane and is increasing stride length especially with cues. Now able to ascend and descend 4 stairs with min assist using railing. Mod assist on 6 stairs. 12/02/20: Patient ambulating with SPC, mostly household but some community distances, improved gait alignment with use of theraband for improved alignment. Patient not consistently able to ambulate community distances due to pain in her left LE, and lack of neurological control left LE. Patient may benefit from modification to her current AFO or fabrication of new AFO. 173 ft in 6 minutes 01/27/21: using SPC. Limitations due to left foot, knee and hip pain, right wrist pain 6 min walk test improved to 199.9 feet today 03/24/21: slower 6 min walk test today as above. Has had modification to her AFO with some improvement in her function, but had poor day today. 06/25/21: 180' on 6 min walk test, patient reports left knee feeling wonky, and right UE still painful due to surgery' having stitches out today. Also c/o lack of caregiver recently has limited her walking, no outings. Will try again next session. 09/16/21: Pt completes 6MWT without cane today/ Average gait speed 0.14 m/s. LTG Duration 12/24/21 Assessment Summary Assessment Adelaide is limited by nausea and fatigue today. Stairs were completed first and gait afterward was difficult with poor patterning, increased ER left hip. Consider starting with gait and black mat activity/work toward kneeling next visit. Physical Therapy Plan Frequency and Duration Frequency of Treatment 2x/Week Duration of Treatment 3 months Plan of Care Start Date 09/23/21 Plan of Care End Date 12/24/21 Therapeutic Interventions Therapeutic Interventions Aquatic Therapy,Balance Training,Gait Training,Home Exercise Program,Neuromuscular Re-education,Orthotic/ Prosthetic Management,Patient/ Caregiver Education,Self-Care/ Home Management,Taping, Therapeutic Activities, Therapeutic Exercises Modalities Cold Pack/Ice Massage,Hot Packs Next Visit Focus/Plan Next Note Type Treatment Note Next Visit Plan Work on black mat progression toward kneeling position for floor transfer. Continue strengthening, gait, balance work.
--- NOTE | 2021-10-15 13:45 | PT.OTN ---
Current Diagnoses Difficulty in walking, not elsewhere classified (10/15/21) Weakness (10/15/21) History of falling (10/15/21) Physical Therapy Treatment Note PT-OP-A Visit Information Start: 05/28/19 08:11 Freq: Status: Active Protocol: Document 10/15/21 10:34 SAK (Rec: 10/15/21 11:18 [facility] [id number]) Out-Patient Physical Therapy Visit Information Visit Information Visit Type Treatment Note Visit Start Time 10:35 Visit Stop Time 11:15 Total Visit Minutes 40 Visit Number 142 Precautions Precautions Seizure disorder memory dysfunction PT-OP-B Current Condition Start: 05/28/19 08:11 Freq: Status: Active Protocol: Document 06/04/20 11:15 SAK (Rec: 06/05/20 16:34 [facility] [id number]) Current Condition History of Current Condition Onset Date 2014 Current Complaints weakness, requires assistance with all mobility and household tasks History of Current Condition Reports that she suffered a stroke in 2014 after surgery for brain aneurysm. CVA caused weakness on the left side of her body, gait and balance difficulty, seizures. PT-OP-C Subjective Start: 05/28/19 08:11 Freq: Status: Active Protocol: Document 10/15/21 10:34 SAK (Rec: 10/15/21 11:18 [facility] [id number]) OP-PT Subjective Patient Comments Patient Comments Reports really bad heartburn today, not feeling very good. Televisit with her doctor yesterday, addressing constipation issues. States has had low energy because of that. Doesn't feel up to doing activities on black mat. PT-OP-D Balance Start: 05/28/19 08:11 Freq: Status: Active Protocol: Document 05/29/19 14:30 SAK (Rec: 05/30/19 14:24 SAK [id number]) OP-PT Balance Assessment Sitting Balance Static Sitting Balance Ability Good Dynamic Sitting Balance Ability Fair Standing Balance Static Standing Balance Ability Good Dynamic Standing Balance Ability Fair Device Used [facility] right Tinetti Balance Assessment Sitting Balance Sitting Balance Steady, safe Arising from Chair Attempts to Arise Able, requires >1 attempt Standing Balance Immediate Standing Balance Steady with support Standing Balance Steady, wide stance Nudged Response Begins to fall Standing with Eyes Closed Unsteady Turning Step Pattern Turning 360 Degrees Discontinuous steps Stability Turning 360 Degrees Unsteady, grabs/staggers Sitting Down Sitting Down Uses arms or unsteady Gait and Step Initiation of Gait Hesitancy, mult. attempts Right Foot Step Length Does not pass stance ft. Right Foot Step Height Does not clear floor Left Foot Step Length Does not pass stance foot Left Foot Step Height Does not clear floor Step Description Step Symmetry Step length not equal Gait Description Path Description Mild/moderate deviation Trunk Description Marked sway or uses aide Walking Stance Heels apart Scoring and Interpretation Tinetti Composite Score (points) 6 Interpretation of Scores High risk for falls(< 19) Herrera Fall Scale Copyright Permission PT-OP-E Functional Tests Start: 05/28/19 08:11 Freq: Status: Active Protocol: Document 05/14/21 10:50 [facility] (Rec: 05/14/21 11:08 [facility] [id number]) Functional Tests 6 Minute Walk Test Distance 169ft Device Used spc, TB wrapping Comments pt has headache today and feels that may have slowed her down. Timed Up and Go (TUG) Score 107 seconds PT-OP-G Mobility & Gait Start: 05/28/19 08:11 Freq: Status: Active Protocol: Document 05/26/20 11:15 SAK (Rec: 05/26/20 17:04 [facility] [id number]) OP Mobility Evaluation Bed Mobility Rolling min assist to right CGA to left Supine to and from Sit min assist to right CGA to left Transfers Sit to Stand CGA to min assist without UE use Bed to Chair Transfers requires use of right UE but able to do with SBA Floor Transfers unable PT-OP-H Neuro Start: 05/28/19 08:11 Freq: Status: Active Protocol: Document 05/29/19 14:30 SAK (Rec: 05/30/19 14:24 SAK [id number]) Sensation Evaluation Gross Sensation Gross Sensation Left UE Impaired,Left LE Impaired Sensation Description Paresthesia,Numbness Coordination Evaluation Lower Extremity Tests Left Alternate Heel to Knee; Heel to Toe Test Moderate Impairment Heel on Boles Test Moderate Impairment Foot Tapping Test Moderate Impairment PT-OP-K Range of Motion Start: 05/28/19 08:11 Freq: Status: Active Protocol: Document 05/26/20 11:15 SAK (Rec: 05/26/20 17:04 SAK [id number]) Hip Goniometric Range of Motion Hip jake Hip ROM WFL Yes Comments actively right LE, passively left LE Knee Goniometric Range of Motion Knee jake Knee ROM WFL Yes Ankle and Foot Goniometric Range of Motion Ankle and Foot Left Passive Ankle/Foot ROM WFL No Left Active Ankle/Foot ROM WFL No PT-OP-M Strength Start: 05/28/19 08:11 Freq: Status: Active Protocol: Document 05/26/20 11:15 SAK (Rec: 05/26/20 17:04 [facility] [id number]) Hip Strength Hip Manual Muscle Testing Left Flexion (L2) 3- Fair- Extension (S1) 2 Poor Abduction 2+ Poor+ External Rotation 3- Fair- Internal Rotation 3+ Fair+ Right Flexion (L2) 4 Good Extension (S1) 4- Good- Abduction 4 Good External Rotation 3+ Fair+ Internal Rotation 4- Good- PT-OP-Q Treatments Start: 05/28/19 08:11 Freq: Status: Active Protocol: Document 10/15/21 10:34 [facility] (Rec: 10/15/21 11:18 [facility] [id number]) Cardio Equipment Recumbent Stepper (Sci-Fit) Duration (Minutes) 10 Resistance 2.2 Seat Position 10 Other cues for left LE alignment. Therapeutic Exercises Sitting Exercises HC stretch Side left Resistance AAROM Equipment Used manual and demonstrates use mesh chair w/ hip hinge forward self Reps/Minutes 30 x 3 Comments manual, review discussion with pt and caregiver. Standing Exercises sit to stands Standing Exercise Name sit to stand Equipment Used mesh chair Reps/Minutes x 10 reps Comments cues for leftward weight shift Gait Training Gait Activity uneven Description uneven Device Used AFO, no cane Level of Assistance CGA-mod assist Surface 2 red yoga mats, stacked Comments 4x across mats, cues for LE sequencing, weight shift to left, increased step length right. Patient anxious but doing positive self-talk 1 Description level surface Device Used AFO Level of Assistance CGA, cues Surface indoor carpet, tile, firm Distance/Duration 60 ft x 2 Treatment Focus gait without device, improved weight shift and stance time left Comments Patient reporting right LE fatigue. PT-OP-R Modalities Start: 05/28/19 08:11 Freq: Status: Active Protocol: Document 12/29/20 10:30 SP (Rec: 12/29/20 11:44 SP [id number]) Electric Stimulation Electric Stimulation Functional Electric Stimulation Body Location L hand/ forearm extensors Duration (Minutes) 2 Patient Position Sitting Comments NMES- education on placement of pad for muscular feedback extension based- check self placement understanding. PT-OP-T Assessment and Plan Start: 05/28/19 08:11 Freq: Status: Active Protocol: Document 10/15/21 10:34 [facility] (Rec: 10/15/21 11:18 [facility] [id number]) Physical Therapy Assessment Goals Five Impairment gait speed not adequate for safe community ambulation Residential Goal (LTG) Patient able to ambulate 300' in 6 min. TUG score no greater than 30 sec 06/02/20: 134' 08/28/20: 144', likely not as high due to new shoes and wearing old AFO because fits better in new shoes. Requires level 4 theraband for derotation of left LE into more neutral position for gait . 09/19/20: 146 ft 6 min w/ QC and Tb wrapping to LLE. 11/13/20: 153 ft CG w/ SPC 2>3 pt gait w/out metronome w/ reported L glut/ lateral leg burn pain, 2 step brief stand breaks. 11/24/20: progressing 173.7 ft using SPC, predominently 2 pt gait. TUG score 59 sec using SP 01/27/21: TUG 55 sec. , 6 min walk test 199.9 ft with SPC 03/19/21: 6 min walk test 165' , TUG 1:20. Continue with use of theraband for derotation of excess ER left LE with gait . 04/16/21: 6MWT 190 ft w/ SPC and TB wrapping assist hip IR. 04/23/21: 6MWT 181 ftw/ SPC and TB wrapping 06/25/21: 6MWT 180 ft with SPC and TB wrapping. TU sec 09/16/21 - average gait speed 0 .14 m/s on 6MWT which pt completed with no AD (AFO only ). LTG Duration 12/24/21 Four Impairment requires assistance with bed mobility and transfers Short Term Goal (STG) Patient will be able to perform all bed mobility independently to improve her functional independence. 10/31/19: good goal progress 06/02/20:inconsistent, but min assist most times 11/24/20: Met goal: pt is independent in supine>sit. STG Duration goal met ( independent 11/24/20 ) Senior Training Specialist Goal (LTG) Patient will be able to perform a floor transfer with SB to min assist. 5x sit to stand score in no more than 15 sec as measure of functional strength for transfers 10/31/19: max assist today 01/02/20: has not been willing to try since 10/31/19 06/02/21: does not feel strong enough to try yet. 06/25/21: 08/28/20: max assistance required 12/02/20: remains at max assist , not recently willing to attempt floor transfer. 5x sit to stand score 26 seconds 01/27/21: not tried recently. 03/24/21: 5x sit to stand 25 sec. No floor transfer today 06/25/21: 5x sit to stand 24 sec. Patient didn't feel up to doing floor transfer, remains a concern 09/16/21: Pt willing to work on floor transfers but demonstrates a great deal of fear avoidance. 5 Time Sit to Stand today in 30.4 seconds from standard height chair with no use of RUE LTG Duration 12/24/21 Three Impairment weakness left UE and LE s/p CVA Residential Goal (LTG) Improve functional strength in left LE, as evidenced by ability to move from sit > < stand without use of UE's. 10/31/19: OT starts tomorrow. Good progress with sit to stand, though mostly using right UE and LE 01/02/20: Improving ability to perform, able to increase weight-bearing through left LE with cues, but still some use of right UE 05/26/20: With manual and visual feedback patient able to transfer sit to stand with only CG A. 08/28/20: inconsistent ability to move sit to stand without using UE's, but able to do transfer without physical assistance 11/24/20: Goal Met 01/27/21: more difficulty recently, having to use hands. Goal reactivated. 03/24/21: difficulty motor planning and performing sit to stand today. 06/25/21: patient becomes frustrated with sit to stand transfers as she expresses she feels she has a hard time remembering how to do it, has to use right UE 09/16/21 Pt completes sit to stand x 5 today without use of RUE from std height chair. LTG Duration 12/24/21 Two Impairment balance dysfunction with high risk for falls Senior Training Specialist Goal (LTG) Improve balance as evidenced by improvement in Tinnetti balance and gait score to low fall risk range to improve safety in the home and community. 10/31/19: remains high risk for falls 01/02/20: some improvement but still in high risk category 05/26/20: Tinetti score in high risk category 08/28/20: moderate risk for falls 12/02/20: remains in moderate risk for falls. 01/27/21: moderate risk for falls 03/24/21: no significant change noted today but again having poor day. 06/25/21: Moderate risk for falls, though no reported falls over past few months. 09/16/21 No change LTG Duration 12/24/21 One Impairment requires armaan-walker for gait, limited to household gait Residential Goal (LTG) Patient able to ambulate with least restrictive device for functional community distances to improve her functional independence and quality of life. 10/30/19: no progress due to Covid 19. 11/02/19: able to ambulate with quad cane but with very slow speed, household distances, very short community distances . 05/26/20: Now able to ambulate with use of single point cane and use of L4 theraband wrapped around left LE to facilitate left LE internal rotation for improved alignment. Patient unable to don the theraband on her own. Gait is for short distances and very slow at 39 ft in 2 min. 08/28/20: has demonstrated improved gait ability, still using theraband for derotation of LE for more neutral position. Able to consistenly use quad cane and is increasing stride length especially with cues. Now able to ascend and descend 4 stairs with min assist using railing. Mod assist on 6 stairs. 12/02/20: Patient ambulating with SPC, mostly household but some community distances, improved gait alignment with use of theraband for improved alignment. Patient not consistently able to ambulate community distances due to pain in her left LE, and lack of neurological control left LE. Patient may benefit from modification to her current AFO or fabrication of new AFO. 173 ft in 6 minutes 01/27/21: using SPC. Limitations due to left foot, knee and hip pain, right wrist pain 6 min walk test improved to 199.9 feet today 03/24/21: slower 6 min walk test today as above. Has had modification to her AFO with some improvement in her function, but had poor day today. 06/25/21: 180' on 6 min walk test, patient reports left knee feeling wonky, and right UE still painful due to surgery' having stitches out today. Also c/o lack of caregiver recently has limited her walking, no outings. Will try again next session. 09/16/21: Pt completes 6MWT without cane today/ Average gait speed 0.14 m/s. LTG Duration 12/24/21 Assessment Summary Assessment Adelaide initially limited by not feeling well, but often seems to improve after starting with Sci-Fit, was able to participate in challenged gait activity on 2 stacked yoga mats and was encouraging herself in the activity. Has most difficulty with the transition on off the mats, often catching right toe stepping up and without cues often would step up first with left LE which is more challenging for her. Once on the mat demonstrating fair to good balance reactions. Very fatigued after session with right LE discomfort and asked her caregiver to get her wheelchair to get back to the car. Physical Therapy Plan Frequency and Duration Frequency of Treatment 2x/Week Duration of Treatment 3 months Plan of Care Start Date 09/23/21 Plan of Care End Date 12/24/21 Next Visit Focus/Plan Next Note Type Treatment Note Next Visit Plan Work on black mat progression toward kneeling position for floor transfer. Continue strengthening, gait, balance work.
--- NOTE | 2021-10-20 17:40 | PT.OTN ---
Current Diagnoses Difficulty in walking, not elsewhere classified (10/20/21) Weakness (10/20/21) History of falling (10/20/21) Physical Therapy Treatment Note PT-OP-A Visit Information Start: 05/28/19 08:11 Freq: Status: Active Protocol: Document 10/20/21 10:33 SAK (Rec: 10/20/21 11:19 [facility] [id number]) Out-Patient Physical Therapy Visit Information Visit Information Visit Type Treatment Note Visit Start Time 10:30 Visit Stop Time 11:15 Total Visit Minutes 45 Visit Number 143 Precautions Precautions Seizure disorder memory dysfunction PT-OP-B Current Condition Start: 05/28/19 08:11 Freq: Status: Active Protocol: Document 06/04/20 11:15 SAK (Rec: 06/05/20 16:34 SAK [id number]) Current Condition History of Current Condition Onset Date 2014 Current Complaints weakness, requires assistance with all mobility and household tasks History of Current Condition Reports that she suffered a stroke in 2014 after surgery for brain aneurysm. CVA caused weakness on the left side of her body, gait and balance difficulty, seizures. PT-OP-C Subjective Start: 05/28/19 08:11 Freq: Status: Active Protocol: Document 10/20/21 10:33 SAK (Rec: 10/20/21 11:19 [facility] [id number]) OP-PT Subjective Patient Comments Patient Comments REports wakes with neck pain, needs help with figuring out bed positioning. Feels her walking hasn't been as good lately. PT-OP-D Balance Start: 05/28/19 08:11 Freq: Status: Active Protocol: Document 05/29/19 14:30 SAK (Rec: 05/30/19 14:24 SAK [id number]) OP-PT Balance Assessment Sitting Balance Static Sitting Balance Ability Good Dynamic Sitting Balance Ability Fair Standing Balance Static Standing Balance Ability Good Dynamic Standing Balance Ability Fair Device Used hemiwalker right Tinetti Balance Assessment Sitting Balance Sitting Balance Steady, safe Arising from Chair Attempts to Arise Able, requires >1 attempt Standing Balance Immediate Standing Balance Steady with support Standing Balance Steady, wide stance Nudged Response Begins to fall Standing with Eyes Closed Unsteady Turning Step Pattern Turning 360 Degrees Discontinuous steps Stability Turning 360 Degrees Unsteady, grabs/staggers Sitting Down Sitting Down Uses arms or unsteady Gait and Step Initiation of Gait Hesitancy, mult. attempts Right Foot Step Length Does not pass stance ft. Right Foot Step Height Does not clear floor Left Foot Step Length Does not pass stance foot Left Foot Step Height Does not clear floor Step Description Step Symmetry Step length not equal Gait Description Path Description Mild/moderate deviation Trunk Description Marked sway or uses aide Walking Stance Heels apart Scoring and Interpretation Tinetti Composite Score (points) 6 Interpretation of Scores High risk for falls(< 19) Herrera Fall Scale Copyright Permission PT-OP-E Functional Tests Start: 05/28/19 08:11 Freq: Status: Active Protocol: Document 05/14/21 10:50 [facility] (Rec: 05/14/21 11:08 [facility] [id number]) Functional Tests 6 Minute Walk Test Distance 169ft Device Used spc, TB wrapping Comments pt has headache today and feels that may have slowed her down. Timed Up and Go (TUG) Score 107 seconds PT-OP-G Mobility & Gait Start: 05/28/19 08:11 Freq: Status: Active Protocol: Document 05/26/20 11:15 SAK (Rec: 05/26/20 17:04 [facility] [id number]) OP Mobility Evaluation Bed Mobility Rolling min assist to right CGA to left Supine to and from Sit min assist to right CGA to left Transfers Sit to Stand CGA to min assist without UE use Bed to Chair Transfers requires use of right UE but able to do with SBA Floor Transfers unable PT-OP-H Neuro Start: 05/28/19 08:11 Freq: Status: Active Protocol: Document 05/29/19 14:30 SAK (Rec: 05/30/19 14:24 SAK [id number]) Sensation Evaluation Gross Sensation Gross Sensation Left UE Impaired,Left LE Impaired Sensation Description Paresthesia,Numbness Coordination Evaluation Lower Extremity Tests Left Alternate Heel to Knee; Heel to Toe Test Moderate Impairment Heel on Boles Test Moderate Impairment Foot Tapping Test Moderate Impairment PT-OP-K Range of Motion Start: 05/28/19 08:11 Freq: Status: Active Protocol: Document 05/26/20 11:15 SAK (Rec: 05/26/20 17:04 SAK [id number]) Hip Goniometric Range of Motion Hip jake Hip ROM WFL Yes Comments actively right LE, passively left LE Knee Goniometric Range of Motion Knee jake Knee ROM WFL Yes Ankle and Foot Goniometric Range of Motion Ankle and Foot Left Passive Ankle/Foot ROM WFL No Left Active Ankle/Foot ROM WFL No PT-OP-M Strength Start: 05/28/19 08:11 Freq: Status: Active Protocol: Document 05/26/20 11:15 SAK (Rec: 05/26/20 17:04 SAK [id number]) Hip Strength Hip Manual Muscle Testing Left Flexion (L2) 3- Fair- Extension (S1) 2 Poor Abduction 2+ Poor+ External Rotation 3- Fair- Internal Rotation 3+ Fair+ Right Flexion (L2) 4 Good Extension (S1) 4- Good- Abduction 4 Good External Rotation 3+ Fair+ Internal Rotation 4- Good- PT-OP-Q Treatments Start: 05/28/19 08:11 Freq: Status: Active Protocol: Document 10/20/21 10:33 SAK (Rec: 10/20/21 17:40 [facility] [id number]) Cardio Equipment Recumbent Stepper (Sci-Fit) Duration (Minutes) 10 Resistance 2.2 Seat Position 10 Other cues for left LE alignment, 1. 22 miles Gait Training Gait Activity uneven Description uneven Device Used AFO, no cane Level of Assistance CGA-mod assist Surface 2 red yoga mats, stacked Comments 4x across mats, cues for LE sequencing, weight shift to left, increased step length right. Patient anxious but doing positive self-talk 1 Description level surface Device Used AFO Level of Assistance CGA, cues Surface indoor carpet, tile, firm Distance/Duration 60 ft x 2, 40' x 1 Treatment Focus gait without device, improved weight shift and stance time left Comments Patient reporting right LE fatigue. Self-Care/Home Management Treatment Education Other Education bed positioning in supine and sidelying; use of pillows under neck and not shoulders, in sidelying pillow between legs, left UE supported in neutral at side of body, pillow under. PT-OP-R Modalities Start: 05/28/19 08:11 Freq: Status: Active Protocol: Document 12/29/20 10:30 SP (Rec: 12/29/20 11:44 SP [id number]) Electric Stimulation Electric Stimulation Functional Electric Stimulation Body Location L hand/ forearm extensors Duration (Minutes) 2 Patient Position Sitting Comments NMES- education on placement of pad for muscular feedback extension based- check self placement understanding. PT-OP-T Assessment and Plan Start: 01/20/20 08:11 Freq: Status: Active Protocol: Document 10/20/21 10:33 [facility] (Rec: 10/20/21 11:19 [facility] [id number]) Physical Therapy Assessment Goals Five Impairment gait speed not adequate for safe community ambulation Custodial Goal (LTG) Patient able to ambulate 300' in 6 min. TUG score no greater than 30 sec 06/02/20: 134' 08/28/20: 144', likely not as high due to new shoes and wearing old AFO because fits better in new shoes. Requires level 4 theraband for derotation of left LE into more neutral position for gait . 09/19/20: 146 ft 6 min w/ QC and Tb wrapping to LLE. 11/13/20: 153 ft CG w/ SPC 2>3 pt gait w/out metronome w/ reported L glut/ lateral leg burn pain, 2 step brief stand breaks. 11/24/20: progressing 173.7 ft using SPC, predominently 2 pt gait. TUG score 59 sec using SP 01/27/21: TUG 55 sec. , 6 min walk test 199.9 ft with SPC 03/19/21: 6 min walk test 165' , TUG 1:20. Continue with use of theraband for derotation of excess ER left LE with gait . 04/16/21: 6MWT 190 ft w/ SPC and TB wrapping assist hip IR. 04/23/21: 6MWT 181 ftw/ SPC and TB wrapping 06/25/21: 6MWT 180 ft with SPC and TB wrapping. TU sec 09/16/21 - average gait speed 0 .14 m/s on 6MWT which pt completed with no AD (AFO only ). LTG Duration 12/24/21 Four Impairment requires assistance with bed mobility and transfers Short Term Goal (STG) Patient will be able to perform all bed mobility independently to improve her functional independence. 10/31/19: good goal progress 06/02/20:inconsistent, but min assist most times 11/24/20: Met goal: pt is independent in supine>sit. STG Duration goal met ( independent 11/24/20 ) [employer] Installer Goal (LTG) Patient will be able to perform a floor transfer with SB to min assist. 5x sit to stand score in no more than 15 sec as measure of functional strength for transfers 10/31/19: max assist today 01/02/20: has not been willing to try since 10/31/19 06/02/21: does not feel strong enough to try yet. 06/25/21: 08/28/20: max assistance required 12/02/20: remains at max assist , not recently willing to attempt floor transfer. 5x sit to stand score 26 seconds 01/27/21: not tried recently. 03/24/21: 5x sit to stand 25 sec. No floor transfer today 06/25/21: 5x sit to stand 24 sec. Patient didn't feel up to doing floor transfer, remains a concern 09/16/21: Pt willing to work on floor transfers but demonstrates a great deal of fear avoidance. 5 Time Sit to Stand today in 30.4 seconds from standard height chair with no use of RUE LTG Duration 12/24/21 Three Impairment weakness left UE and LE s/p CVA Custodial Goal (LTG) Improve functional strength in left LE, as evidenced by ability to move from sit > < stand without use of UE's. 10/31/19: OT starts tomorrow. Good progress with sit to stand, though mostly using right UE and LE 01/02/20: Improving ability to perform, able to increase weight-bearing through left LE with cues, but still some use of right UE 05/26/20: With manual and visual feedback patient able to transfer sit to stand with only CG A. 08/28/20: inconsistent ability to move sit to stand without using UE's, but able to do transfer without physical assistance 11/24/20: Goal Met 01/27/21: more difficulty recently, having to use hands. Goal reactivated. 03/24/21: difficulty motor planning and performing sit to stand today. 06/25/21: patient becomes frustrated with sit to stand transfers as she expresses she feels she has a hard time remembering how to do it, has to use right UE 09/16/21 Pt completes sit to stand x 5 today without use of RUE from std height chair. LTG Duration 12/24/21 Two Impairment balance dysfunction with high risk for falls [employer] Installer Goal (LTG) Improve balance as evidenced by improvement in Tinnetti balance and gait score to low fall risk range to improve safety in the home and community. 10/31/19: remains high risk for falls 01/02/20: some improvement but still in high risk category 05/26/20: Tinetti score in high risk category 08/28/20: moderate risk for falls 12/02/20: remains in moderate risk for falls. 01/27/21: moderate risk for falls 03/24/21: no significant change noted today but again having poor day. 06/25/21: Moderate risk for falls, though no reported falls over past few months. 09/16/21 No change LTG Duration 12/24/21 One Impairment requires armaan-walker for gait, limited to household gait Custodial Goal (LTG) Patient able to ambulate with least restrictive device for functional community distances to improve her functional independence and quality of life. 10/30/19: no progress due to Covid 19. 11/02/19: able to ambulate with quad cane but with very slow speed, household distances, very short community distances . 05/26/20: Now able to ambulate with use of single point cane and use of L4 theraband wrapped around left LE to facilitate left LE internal rotation for improved alignment. Patient unable to don the theraband on her own. Gait is for short distances and very slow at 39 ft in 2 min. 08/28/20: has demonstrated improved gait ability, still using theraband for derotation of LE for more neutral position. Able to consistenly use quad cane and is increasing stride length especially with cues. Now able to ascend and descend 4 stairs with min assist using railing. Mod assist on 6 stairs. 12/02/20: Patient ambulating with SPC, mostly household but some community distances, improved gait alignment with use of theraband for improved alignment. Patient not consistently able to ambulate community distances due to pain in her left LE, and lack of neurological control left LE. Patient may benefit from modification to her current AFO or fabrication of new AFO. 173 ft in 6 minutes 01/27/21: using SPC. Limitations due to left foot, knee and hip pain, right wrist pain 6 min walk test improved to 199.9 feet today 03/24/21: slower 6 min walk test today as above. Has had modification to her AFO with some improvement in her function, but had poor day today. 06/25/21: 180' on 6 min walk test, patient reports left knee feeling wonky, and right UE still painful due to surgery' having stitches out today. Also c/o lack of caregiver recently has limited her walking, no outings. Will try again next session. 09/16/21: Pt completes 6MWT without cane today/ Average gait speed 0.14 m/s. LTG Duration 12/24/21 Assessment Summary Assessment Patient demonstrated good understanding of correct bed positioning for neck and shoulder support. Has difficulty with lateral scooting to allow for safe sidelying and has difficulty adjusting pillows with one hand. Gait without device continues to improve though patient needs near constant cues for increased weight shift and stance time on left. Decreased excess external rotation with gait noted. Physical Therapy Plan Frequency and Duration Frequency of Treatment 2x/Week Duration of Treatment 3 months Plan of Care Start Date 09/23/21 Plan of Care End Date 12/24/21 Next Visit Focus/Plan Next Note Type Treatment Note Next Visit Plan further use of mirror for patient feedback for weight shifting to left with pre-gait activities, continue gait training and functional strengthening. Work on bed scooting to allow for improved bed positioning.
--- NOTE | 2021-10-27 17:38 | PT.OTN ---
Current Diagnoses Difficulty in walking, not elsewhere classified (10/27/21) Weakness (10/27/21) History of falling (10/27/21) Physical Therapy Treatment Note PT-OP-A Visit Information Start: 05/28/19 08:11 Freq: Status: Active Protocol: Document 10/27/21 09:48 SAK (Rec: 10/27/21 10:33 [facility] [id number]) Out-Patient Physical Therapy Visit Information Visit Information Visit Type Treatment Note Visit Start Time 10:30 Visit Stop Time 11:25 Total Visit Minutes 55 Visit Number 144 Precautions Precautions Seizure disorder memory dysfunction PT-OP-B Current Condition Start: 05/28/19 08:11 Freq: Status: Active Protocol: Document 06/04/20 11:15 SAK (Rec: 06/05/20 16:34 [facility] [id number]) Current Condition History of Current Condition Onset Date 2014 Current Complaints weakness, requires assistance with all mobility and household tasks History of Current Condition Reports that she suffered a stroke in 2014 after surgery for brain aneurysm. CVA caused weakness on the left side of her body, gait and balance difficulty, seizures. PT-OP-C Subjective Start: 05/28/19 08:11 Freq: Status: Active Protocol: Document 10/27/21 09:48 SAK (Rec: 10/27/21 10:33 [facility] [id number]) OP-PT Subjective Patient Comments Patient Comments Has been walking in [place] with caregiver, cane. Was in store and was bumped by a lady and found she was able to stay upright after practice with PT pushing against her in PT. Feels very tight in left LE today. PT-OP-D Balance Start: 05/28/19 08:11 Freq: Status: Active Protocol: Document 05/29/19 14:30 SAK (Rec: 05/30/19 14:24 SAK [id number]) OP-PT Balance Assessment Sitting Balance Static Sitting Balance Ability Good Dynamic Sitting Balance Ability Fair Standing Balance Static Standing Balance Ability Good Dynamic Standing Balance Ability Fair Device Used hemiwalker right Tinetti Balance Assessment Sitting Balance Sitting Balance Steady, safe Arising from Chair Attempts to Arise Able, requires >1 attempt Standing Balance Immediate Standing Balance Steady with support Standing Balance Steady, wide stance Nudged Response Begins to fall Standing with Eyes Closed Unsteady Turning Step Pattern Turning 360 Degrees Discontinuous steps Stability Turning 360 Degrees Unsteady, grabs/staggers Sitting Down Sitting Down Uses arms or unsteady Gait and Step Initiation of Gait Hesitancy, mult. attempts Right Foot Step Length Does not pass stance ft. Right Foot Step Height Does not clear floor Left Foot Step Length Does not pass stance foot Left Foot Step Height Does not clear floor Step Description Step Symmetry Step length not equal Gait Description Path Description Mild/moderate deviation Trunk Description Marked sway or uses aide Walking Stance Heels apart Scoring and Interpretation Tinetti Composite Score (points) 6 Interpretation of Scores High risk for falls(< 19) Herrera Fall Scale Copyright Permission PT-OP-E Functional Tests Start: 05/28/19 08:11 Freq: Status: Active Protocol: Document 05/14/21 10:50 [facility] (Rec: 05/14/21 11:08 [facility] [id number]) Functional Tests 6 Minute Walk Test Distance 169ft Device Used spc, TB wrapping Comments pt has headache today and feels that may have slowed her down. Timed Up and Go (TUG) Score 107 seconds PT-OP-G Mobility & Gait Start: 05/28/19 08:11 Freq: Status: Active Protocol: Document 05/26/20 11:15 SAK (Rec: 05/26/20 17:04 [facility] [id number]) OP Mobility Evaluation Bed Mobility Rolling min assist to right CGA to left Supine to and from Sit min assist to right CGA to left Transfers Sit to Stand CGA to min assist without UE use Bed to Chair Transfers requires use of right UE but able to do with SBA Floor Transfers unable PT-OP-H Neuro Start: 05/28/19 08:11 Freq: Status: Active Protocol: Document 05/29/19 14:30 SAK (Rec: 05/30/19 14:24 [facility] [id number]) Sensation Evaluation Gross Sensation Gross Sensation Left UE Impaired,Left LE Impaired Sensation Description Paresthesia,Numbness Coordination Evaluation Lower Extremity Tests Left Alternate Heel to Knee; Heel to Toe Test Moderate Impairment Heel on Boles Test Moderate Impairment Foot Tapping Test Moderate Impairment PT-OP-K Range of Motion Start: 05/28/19 08:11 Freq: Status: Active Protocol: Document 05/26/20 11:15 SAK (Rec: 05/26/20 17:04 [facility] [id number]) Hip Goniometric Range of Motion Hip jake Hip ROM WFL Yes Comments actively right LE, passively left LE Knee Goniometric Range of Motion Knee jake Knee ROM WFL Yes Ankle and Foot Goniometric Range of Motion Ankle and Foot Left Passive Ankle/Foot ROM WFL No Left Active Ankle/Foot ROM WFL No PT-OP-M Strength Start: 05/28/19 08:11 Freq: Status: Active Protocol: Document 05/26/20 11:15 [facility] (Rec: 05/26/20 17:04 [facility] [id number]) Hip Strength Hip Manual Muscle Testing Left Flexion (L2) 3- Fair- Extension (S1) 2 Poor Abduction 2+ Poor+ External Rotation 3- Fair- Internal Rotation 3+ Fair+ Right Flexion (L2) 4 Good Extension (S1) 4- Good- Abduction 4 Good External Rotation 3+ Fair+ Internal Rotation 4- Good- PT-OP-Q Treatments Start: 05/28/19 08:11 Freq: Status: Active Protocol: Document 10/27/21 09:48 [facility] (Rec: 10/28/21 17:38 [facility] [id number]) Cardio Equipment Recumbent Stepper (Sci-Fit) Duration (Minutes) 10 Resistance 2.2 Seat Position 10 Other cues for left LE alignment, 1. 22 miles Therapeutic Exercises Sitting Exercises pirifomis stretch Reps/Minutes 2x30 Comments manual HS stretch Reps/Minutes 2x30 Comments manual HC stretch Side left Resistance AAROM Equipment Used manual Reps/Minutes 30 x 3 Standing Exercises calf stretch Equipment Used REKHA, no AFO Reps/Minutes 2x30 Comments verbal and manual cues, UE support, cues for upright posture Gait Training Gait Activity backward Device Used none Level of Assistance CGA Distance/Duration 6'x2 Treatment Focus decreased support, gluteal activation Comments mirror for visual feedback. uneven Description uneven Device Used AFO, no cane Level of Assistance CGA-mod assist Surface 1 red yoga mat Comments 4x across mat, cues for LE sequencing, weight shift to left, increased step length right. Patient anxious but postive self talk encouraged. parallel bars Description forward, back, Device Used //bar mostly no UE support, occasional light touch support , AFO Surface firm Distance/Duration 3x each direction Treatment Focus neutral alignment, weight- shift over LLE required verbal sequencing Comments No theraband wrap on LE. Used mirror for visual feedback fwd /bwd and pt was able to improve LLE weight shift. pre-gait weight shifts Description side to side (AFO doffed) Device Used none Level of Assistance CG, verbal cues Surface firm Distance/Duration rail on R Treatment Focus increased weight bearing left LE (cued >50-75%) Comments mirror for visual feedback Neuro Re-Education Treatment Balance Activities standing balance Details lateral & A/P weight shifts in WBOS, head turns, EC Surface firm, sneakers w/ and w/out AFO LLE Equipment in//bars PRN contact Reps/Duration 8 min Comments cues and manual facilitation for soft L knee, increased weight-shift left, minimal UE support on //, able complete head turns and EC 6 sec w/ and without LLE AFO. Self-Care/Home Management Treatment Education Other Education positive self-talk PT-OP-R Modalities Start: 05/28/19 08:11 Freq: Status: Active Protocol: Document 12/29/20 10:30 [facility] (Rec: 12/29/20 11:44 [facility] [id number]) Electric Stimulation Electric Stimulation Functional Electric Stimulation Body Location L hand/ forearm extensors Duration (Minutes) 2 Patient Position Sitting Comments NMES- education on placement of pad for muscular feedback extension based- check self placement understanding. PT-OP-T Assessment and Plan Start: 05/28/19 08:11 Freq: Status: Active Protocol: Document 10/27/21 09:48 SAK (Rec: 10/27/21 10:33 [facility] [id number]) Physical Therapy Assessment Goals Five Impairment gait speed not adequate for safe community ambulation Geriatric Social Worker Goal (LTG) Patient able to ambulate 300' in 6 min. TUG score no greater than 30 sec 06/02/20: 134' 08/28/20: 144', likely not as high due to new shoes and wearing old AFO because fits better in new shoes. Requires level 4 theraband for derotation of left LE into more neutral position for gait . 09/19/20: 146 ft 6 min w/ QC and Tb wrapping to LLE. 11/13/20: 153 ft CG w/ SPC 2>3 pt gait w/out metronome w/ reported L glut/ lateral leg burn pain, 2 step brief stand breaks. 11/24/20: progressing 173.7 ft using SPC, predominently 2 pt gait. TUG score 59 sec using SP 01/27/21: TUG 55 sec. , 6 min walk test 199.9 ft with SPC 11/11/21: 6 min walk test 165' , TUG 1:20. Continue with use of theraband for derotation of excess ER left LE with gait . 04/16/21: 6MWT 190 ft w/ SPC and TB wrapping assist hip IR. 04/23/21: 6MWT 181 ftw/ SPC and TB wrapping 06/25/21: 6MWT 180 ft with SPC and TB wrapping. TU sec 09/16/21 - average gait speed 0 .14 m/s on 6MWT which pt completed with no AD (AFO only ). LTG Duration 12/24/21 Four Impairment requires assistance with bed mobility and transfers Short Term Goal (STG) Patient will be able to perform all bed mobility independently to improve her functional independence. 10/31/19: good goal progress 06/02/20:inconsistent, but min assist most times 11/24/20: Met goal: pt is independent in supine>sit. STG Duration goal met ( independent 11/24/20 ) Geriatric Social Worker Goal (LTG) Patient will be able to perform a floor transfer with SB to min assist. 5x sit to stand score in no more than 15 sec as measure of functional strength for transfers 10/31/19: max assist today 01/02/20: has not been willing to try since 10/31/19 06/02/21: does not feel strong enough to try yet. 06/25/21: 08/28/20: max assistance required 12/02/20: remains at max assist , not recently willing to attempt floor transfer. 5x sit to stand score 26 seconds 01/27/21: not tried recently. 03/24/21: 5x sit to stand 25 sec. No floor transfer today 06/25/21: 5x sit to stand 24 sec. Patient didn't feel up to doing floor transfer, remains a concern 09/16/21: Pt willing to work on floor transfers but demonstrates a great deal of fear avoidance. 5 Time Sit to Stand today in 30.4 seconds from standard height chair with no use of RUE LTG Duration 12/24/21 Three Impairment weakness left UE and LE s/p CVA Geriatric Social Worker Goal (LTG) Improve functional strength in left LE, as evidenced by ability to move from sit > < stand without use of UE's. 10/31/19: OT starts tomorrow. Good progress with sit to stand, though mostly using right UE and LE 01/02/20: Improving ability to perform, able to increase weight-bearing through left LE with cues, but still some use of right UE 05/26/20: With manual and visual feedback patient able to transfer sit to stand with only CG A. 08/28/20: inconsistent ability to move sit to stand without using UE's, but able to do transfer without physical assistance 11/24/20: Goal Met 01/27/21: more difficulty recently, having to use hands. Goal reactivated. 03/24/21: difficulty motor planning and performing sit to stand today. 06/25/21: patient becomes frustrated with sit to stand transfers as she expresses she feels she has a hard time remembering how to do it, has to use right UE 09/16/21 Pt completes sit to stand x 5 today without use of RUE from std height chair. LTG Duration 12/24/21 Two Impairment balance dysfunction with high risk for falls Geriatric Social Worker Goal (LTG) Improve balance as evidenced by improvement in Tinnetti balance and gait score to low fall risk range to improve safety in the home and community. 10/31/19: remains high risk for falls 01/02/20: some improvement but still in high risk category 05/26/20: Tinetti score in high risk category 08/28/20: moderate risk for falls 12/02/20: remains in moderate risk for falls. 01/27/21: moderate risk for falls 03/24/21: no significant change noted today but again having poor day. 06/25/21: Moderate risk for falls, though no reported falls over past few months. 09/16/21 No change LTG Duration 12/24/21 One Impairment requires armaan-walker for gait, limited to household gait Geriatric Social Worker Goal (LTG) Patient able to ambulate with least restrictive device for functional community distances to improve her functional independence and quality of life. 10/30/19: no progress due to Covid 19. 11/02/19: able to ambulate with quad cane but with very slow speed, household distances, very short community distances . 05/26/20: Now able to ambulate with use of single point cane and use of L4 theraband wrapped around left LE to facilitate left LE internal rotation for improved alignment. Patient unable to don the theraband on her own. Gait is for short distances and very slow at 39 ft in 2 min. 08/28/20: has demonstrated improved gait ability, still using theraband for derotation of LE for more neutral position. Able to consistenly use quad cane and is increasing stride length especially with cues. Now able to ascend and descend 4 stairs with min assist using railing. Mod assist on 6 stairs. 12/02/20: Patient ambulating with SPC, mostly household but some community distances, improved gait alignment with use of theraband for improved alignment. Patient not consistently able to ambulate community distances due to pain in her left LE, and lack of neurological control left LE. Patient may benefit from modification to her current AFO or fabrication of new AFO. 173 ft in 6 minutes 01/27/21: using SPC. Limitations due to left foot, knee and hip pain, right wrist pain 6 min walk test improved to 199.9 feet today 03/24/21: slower 6 min walk test today as above. Has had modification to her AFO with some improvement in her function, but had poor day today. 06/25/21: 180' on 6 min walk test, patient reports left knee feeling wonky, and right UE still painful due to surgery' having stitches out today. Also c/o lack of caregiver recently has limited her walking, no outings. Will try again next session. 09/16/21: Pt completes 6MWT without cane today/ Average gait speed 0.14 m/s. LTG Duration 12/24/21 Assessment Summary Assessment Patient noting improved functional balance, has been increasing her gait outdoors. Fatigues rapidly and reports pain in both left and right LE 's. Patient verbalizes frequent negative self-talk due to frustration with her limitations and we talked about strategies for encouraging herself instead. With UE support was able to rock picker object from floor. Physical Therapy Plan Frequency and Duration Frequency of Treatment 2x/Week Duration of Treatment 3 months Plan of Care Start Date 09/23/21 Plan of Care End Date 12/24/21 Next Visit Focus/Plan Next Note Type Treatment Note Next Visit Plan further use of mirror for patient feedback for weight shifting to left with pre-gait activities, continue gait training and functional strengthening. Work on bed scooting to allow for improved bed positioning. Functional squats and reaching using cones and balls.
--- NOTE | 2021-10-29 17:04 | PT.OTN ---
Current Diagnoses Difficulty in walking, not elsewhere classified (10/29/21) Weakness (10/29/21) History of falling (10/29/21) Physical Therapy Treatment Note PT-OP-A Visit Information Start: 05/28/19 08:11 Freq: Status: Active Protocol: Document 10/29/21 10:14 SAK (Rec: 10/29/21 10:32 [facility] [id number]) Out-Patient Physical Therapy Visit Information Visit Information Visit Type Treatment Note Visit Start Time 09:45 Visit Stop Time 10:30 Total Visit Minutes 55 Visit Number 144 Precautions Precautions Seizure disorder memory dysfunction PT-OP-B Current Condition Start: 05/28/19 08:11 Freq: Status: Active Protocol: Document 06/04/20 11:15 SAK (Rec: 06/05/20 16:34 SAK [id number]) Current Condition History of Current Condition Onset Date 2014 Current Complaints weakness, requires assistance with all mobility and household tasks History of Current Condition Reports that she suffered a stroke in 2014 after surgery for brain aneurysm. CVA caused weakness on the left side of her body, gait and balance difficulty, seizures. PT-OP-C Subjective Start: 05/28/19 08:11 Freq: Status: Active Protocol: Document 10/29/21 10:14 SAK (Rec: 10/29/21 10:32 [facility] [id number]) OP-PT Subjective Patient Comments Patient Comments Trying to do a little walking without cane at home. PT-OP-D Balance Start: 05/28/19 08:11 Freq: Status: Active Protocol: Document 05/29/19 14:30 SAK (Rec: 05/30/19 14:24 SAK [id number]) OP-PT Balance Assessment Sitting Balance Static Sitting Balance Ability Good Dynamic Sitting Balance Ability Fair Standing Balance Static Standing Balance Ability Good Dynamic Standing Balance Ability Fair Device Used [facility] right Tinetti Balance Assessment Sitting Balance Sitting Balance Steady, safe Arising from Chair Attempts to Arise Able, requires >1 attempt Standing Balance Immediate Standing Balance Steady with support Standing Balance Steady, wide stance Nudged Response Begins to fall Standing with Eyes Closed Unsteady Turning Step Pattern Turning 360 Degrees Discontinuous steps Stability Turning 360 Degrees Unsteady, grabs/staggers Sitting Down Sitting Down Uses arms or unsteady Gait and Step Initiation of Gait Hesitancy, mult. attempts Right Foot Step Length Does not pass stance ft. Right Foot Step Height Does not clear floor Left Foot Step Length Does not pass stance foot Left Foot Step Height Does not clear floor Step Description Step Symmetry Step length not equal Gait Description Path Description Mild/moderate deviation Trunk Description Marked sway or uses aide Walking Stance Heels apart Scoring and Interpretation Tinetti Composite Score (points) 6 Interpretation of Scores High risk for falls(< 19) Herrera Fall Scale Copyright Permission PT-OP-E Functional Tests Start: 05/28/19 08:11 Freq: Status: Active Protocol: Document 05/14/21 10:50 [facility] (Rec: 05/14/21 11:08 [facility] [id number]) Functional Tests 6 Minute Walk Test Distance 169ft Device Used spc, TB wrapping Comments pt has headache today and feels that may have slowed her down. Timed Up and Go (TUG) Score 107 seconds PT-OP-G Mobility & Gait Start: 05/28/19 08:11 Freq: Status: Active Protocol: Document 05/26/20 11:15 SAK (Rec: 05/26/20 17:04 SAK [id number]) OP Mobility Evaluation Bed Mobility Rolling min assist to right CGA to left Supine to and from Sit min assist to right CGA to left Transfers Sit to Stand CGA to min assist without UE use Bed to Chair Transfers requires use of right UE but able to do with SBA Floor Transfers unable PT-OP-H Neuro Start: 05/28/19 08:11 Freq: Status: Active Protocol: Document 05/29/19 14:30 SAK (Rec: 05/30/19 14:24 SAK [id number]) Sensation Evaluation Gross Sensation Gross Sensation Left UE Impaired,Left LE Impaired Sensation Description Paresthesia,Numbness Coordination Evaluation Lower Extremity Tests Left Alternate Heel to Knee; Heel to Toe Test Moderate Impairment Heel on Boles Test Moderate Impairment Foot Tapping Test Moderate Impairment PT-OP-K Range of Motion Start: 05/28/19 08:11 Freq: Status: Active Protocol: Document 05/26/20 11:15 SAK (Rec: 05/26/20 17:04 SAK [id number]) Hip Goniometric Range of Motion Hip jake Hip ROM WFL Yes Comments actively right LE, passively left LE Knee Goniometric Range of Motion Knee jake Knee ROM WFL Yes Ankle and Foot Goniometric Range of Motion Ankle and Foot Left Passive Ankle/Foot ROM WFL No Left Active Ankle/Foot ROM WFL No PT-OP-M Strength Start: 05/28/19 08:11 Freq: Status: Active Protocol: Document 05/26/20 11:15 [facility] (Rec: 05/26/20 17:04 [facility] [id number]) Hip Strength Hip Manual Muscle Testing Left Flexion (L2) 3- Fair- Extension (S1) 2 Poor Abduction 2+ Poor+ External Rotation 3- Fair- Internal Rotation 3+ Fair+ Right Flexion (L2) 4 Good Extension (S1) 4- Good- Abduction 4 Good External Rotation 3+ Fair+ Internal Rotation 4- Good- PT-OP-Q Treatments Start: 05/28/19 08:11 Freq: Status: Active Protocol: Document 10/29/21 10:14 SAK (Rec: 10/29/21 10:32 [facility] [id number]) Cardio Equipment Recumbent Stepper (Sci-Fit) Duration (Minutes) 10 Resistance 2.2 Seat Position 10 Other cues for left LE alignment, 1. 22 miles Therapeutic Exercises Sitting Exercises pirifomis stretch Reps/Minutes 2x30 Comments manual HS stretch Reps/Minutes 2x30 Comments manual HC stretch Side left Resistance AAROM Equipment Used manual Reps/Minutes 30 x 3 Standing Exercises calf stretch Equipment Used REKHA, no AFO Reps/Minutes 2x30 Comments verbal and manual cues, UE support, cues for upright posture Gait Training Gait Activity backward Device Used none Level of Assistance CGA Surface firm, parallel bars Distance/Duration 6'x2 Treatment Focus decreased support, gluteal activation Comments mirror for visual feedback. uneven Description uneven Device Used AFO, no cane Level of Assistance CGA-mod assist Surface 1 red yoga mat Comments 2x across mat, cues for LE sequencing, weight shift to left, increased step length right. Patient anxious but postive self talk encouraged. parallel bars Description forward, back, Device Used //bar mostly no UE support, occasional light touch support , AFO Surface firm Distance/Duration 3x each direction Treatment Focus neutral alignment, weight- shift over LLE required verbal sequencing Comments No theraband wrap on LE. Used mirror for visual feedback fwd /bwd and pt was able to improve LLE weight shift. pre-gait weight shifts Description side to side (AFO doffed) Device Used none Level of Assistance CG, verbal cues Surface firm Distance/Duration rail on R Treatment Focus increased weight bearing left LE (cued >50-75%) Comments mirror for visual feedback stair mgt Device Used right railing Level of Assistance verbal cues, mod assist for left LE alignment 50% of steps Surface 4 stairs; 5 stairs Distance/Duration 1x Treatment Focus decreased use of right UE, inc wt shift to left. Neuro Re-Education Treatment Balance Activities standing balance Details lateral & A/P weight shifts in WBOS, head turns, EC Surface firm, sneakers w/ and w/out AFO LLE Equipment in//bars PRN contact Reps/Duration 8 min Comments cues and manual facilitation for soft L knee, increased weight-shift left, minimal UE support on //, able complete head turns and EC 6 sec w/ and without LLE AFO. Self-Care/Home Management Treatment Education Other Education continue HEP, increase pre- gait with mirror and gait activities with caregiver PT-OP-R Modalities Start: 05/28/19 08:11 Freq: Status: Active Protocol: Document 12/29/20 10:30 SP (Rec: 12/29/20 11:44 SP [id number]) Electric Stimulation Electric Stimulation Functional Electric Stimulation Body Location L hand/ forearm extensors Duration (Minutes) 2 Patient Position Sitting Comments NMES- education on placement of pad for muscular feedback extension based- check self placement understanding. PT-OP-T Assessment and Plan Start: 05/28/19 08:11 Freq: Status: Active Protocol: Document 10/29/21 10:14 SAK (Rec: 11/02/21 17:04 SAK [id number]) Physical Therapy Assessment Goals Five Impairment gait speed not adequate for safe community ambulation Half-Way Goal (LTG) Patient able to ambulate 300' in 6 min. TUG score no greater than 30 sec 06/02/20: 134' 08/28/20: 144', likely not as high due to new shoes and wearing old AFO because fits better in new shoes. Requires level 4 theraband for derotation of left LE into more neutral position for gait . 09/19/20: 146 ft 6 min w/ QC and Tb wrapping to LLE. 11/13/20: 153 ft CG w/ SPC 2>3 pt gait w/out metronome w/ reported L glut/ lateral leg burn pain, 2 step brief stand breaks. 11/24/20: progressing 173.7 ft using SPC, predominently 2 pt gait. TUG score 59 sec using SP 01/27/21: TUG 55 sec. , 6 min walk test 199.9 ft with SPC 03/19/21: 6 min walk test 165' , TUG 1:20. Continue with use of theraband for derotation of excess ER left LE with gait . 04/16/21: 6MWT 190 ft w/ SPC and TB wrapping assist hip IR. 04/23/21: 6MWT 181 ftw/ SPC and TB wrapping 06/25/21: 6MWT 180 ft with SPC and TB wrapping. TU sec 09/16/21 - average gait speed 0 .14 m/s on 6MWT which pt completed with no AD (AFO only ). LTG Duration 12/24/21 Four Impairment requires assistance with bed mobility and transfers Short Term Goal (STG) Patient will be able to perform all bed mobility independently to improve her functional independence. 10/31/19: good goal progress 06/02/20:inconsistent, but min assist most times 11/24/20: Met goal: pt is independent in supine>sit. STG Duration goal met ( independent 11/24/20 ) Half-Way Goal (LTG) Patient will be able to perform a floor transfer with SB to min assist. 5x sit to stand score in no more than 15 sec as measure of functional strength for transfers 10/31/19: max assist today 01/02/20: has not been willing to try since 10/31/19 06/02/21: does not feel strong enough to try yet. 06/25/21: 08/28/20: max assistance required 12/02/20: remains at max assist , not recently willing to attempt floor transfer. 5x sit to stand score 26 seconds 01/27/21: not tried recently. 03/24/21: 5x sit to stand 25 sec. No floor transfer today 06/25/21: 5x sit to stand 24 sec. Patient didn't feel up to doing floor transfer, remains a concern 09/16/21: Pt willing to work on floor transfers but demonstrates a great deal of fear avoidance. 5 Time Sit to Stand today in 30.4 seconds from standard height chair with no use of RUE LTG Duration 12/24/21 Three Impairment weakness left UE and LE s/p CVA [employer] Goal (LTG) Improve functional strength in left LE, as evidenced by ability to move from sit > < stand without use of UE's. 10/31/19: OT starts tomorrow. Good progress with sit to stand, though mostly using right UE and LE 01/02/20: Improving ability to perform, able to increase weight-bearing through left LE with cues, but still some use of right UE 05/26/20: With manual and visual feedback patient able to transfer sit to stand with only CG A. 08/28/20: inconsistent ability to move sit to stand without using UE's, but able to do transfer without physical assistance 11/24/20: Goal Met 01/27/21: more difficulty recently, having to use hands. Goal reactivated. 03/24/21: difficulty motor planning and performing sit to stand today. 06/25/21: patient becomes frustrated with sit to stand transfers as she expresses she feels she has a hard time remembering how to do it, has to use right UE 09/16/21 Pt completes sit to stand x 5 today without use of RUE from std height chair. LTG Duration 12/24/21 Two Impairment balance dysfunction with high risk for falls [place] [employer] Goal (LTG) Improve balance as evidenced by improvement in Tinnetti balance and gait score to low fall risk range to improve safety in the home and community. 10/31/19: remains high risk for falls 01/02/20: some improvement but still in high risk category 05/26/20: Tinetti score in high risk category 08/28/20: moderate risk for falls 12/02/20: remains in moderate risk for falls. 01/27/21: moderate risk for falls 03/24/21: no significant change noted today but again having poor day. 06/25/21: Moderate risk for falls, though no reported falls over past few months. 09/16/21 No change LTG Duration 12/24/21 One Impairment requires armaan-walker for gait, limited to household gait Half-Way Goal (LTG) Patient able to ambulate with least restrictive device for functional community distances to improve her functional independence and quality of life. 10/30/19: no progress due to Covid 19. 11/02/19: able to ambulate with quad cane but with very slow speed, household distances, very short community distances . 05/26/20: Now able to ambulate with use of single point cane and use of L4 theraband wrapped around left LE to facilitate left LE internal rotation for improved alignment. Patient unable to don the theraband on her own. Gait is for short distances and very slow at 39 ft in 2 min. 08/28/20: has demonstrated improved gait ability, still using theraband for derotation of LE for more neutral position. Able to consistenly use quad cane and is increasing stride length especially with cues. Now able to ascend and descend 4 stairs with min assist using railing. Mod assist on 6 stairs. 12/02/20: Patient ambulating with SPC, mostly household but some community distances, improved gait alignment with use of theraband for improved alignment. Patient not consistently able to ambulate community distances due to pain in her left LE, and lack of neurological control left LE. Patient may benefit from modification to her current AFO or fabrication of new AFO. 173 ft in 6 minutes 01/27/21: using SPC. Limitations due to left foot, knee and hip pain, right wrist pain 6 min walk test improved to 199.9 feet today 03/24/21: slower 6 min walk test today as above. Has had modification to her AFO with some improvement in her function, but had poor day today. 06/25/21: 180' on 6 min walk test, patient reports left knee feeling wonky, and right UE still painful due to surgery' having stitches out today. Also c/o lack of caregiver recently has limited her walking, no outings. Will try again next session. 09/16/21: Pt completes 6MWT without cane today/ Average gait speed 0.14 m/s. LTG Duration 12/24/21 Assessment Summary Assessment Adelaide's attitude and energy for PT has improved recently, increased ability to work through challenging activities without becoming as anxious or defeated. Physical Therapy Plan Frequency and Duration Frequency of Treatment 2x/Week Duration of Treatment 3 months Plan of Care Start Date 09/23/21 Plan of Care End Date 12/24/21 Therapeutic Interventions Therapeutic Interventions Aquatic Therapy,Balance Training,Gait Training,Home Exercise Program,Neuromuscular Re-education,Orthotic/ Prosthetic Management,Patient/ Caregiver Education,Self-Care/ Home Management,Taping, Therapeutic Activities, Therapeutic Exercises Modalities Cold Pack/Ice Massage,Hot Packs Next Visit Focus/Plan Next Note Type Treatment Note Next Visit Plan further use of mirror for patient feedback for weight shifting to left with pre-gait activities, continue gait training and functional strengthening. Work on bed scooting to allow for improved bed positioning. Functional squats and reaching using cones and balls.
--- NOTE | 2021-11-03 18:08 | PT.OTN ---
Current Diagnoses Difficulty in walking, not elsewhere classified (11/03/21) Weakness (11/03/21) History of falling (11/03/21) Physical Therapy Treatment Note PT-OP-A Visit Information Start: 05/28/19 08:11 Freq: Status: Active Protocol: Document 11/03/21 09:57 SAK (Rec: 11/03/21 10:36 [facility] [id number]) Out-Patient Physical Therapy Visit Information Visit Information Visit Type Treatment Note Visit Start Time 09:45 Visit Stop Time 10:30 Total Visit Minutes 55 Visit Number [id number] Precautions Precautions Seizure disorder memory dysfunction PT-OP-B Current Condition Start: 05/28/19 08:11 Freq: Status: Active Protocol: Document 06/04/20 11:15 SAK (Rec: 06/05/20 16:34 SAK [id number]) Current Condition History of Current Condition Onset Date 2014 Current Complaints weakness, requires assistance with all mobility and household tasks History of Current Condition Reports that she suffered a stroke in 2014 after surgery for brain aneurysm. CVA caused weakness on the left side of her body, gait and balance difficulty, seizures. PT-OP-C Subjective Start: 05/28/19 08:11 Freq: Status: Active Protocol: Document 11/03/21 09:57 SAK (Rec: 11/03/21 10:36 [facility] [id number]) OP-PT Subjective Patient Comments Patient Comments sluggish this am, not much exercise due to heat PT-OP-D Balance Start: 05/28/19 08:11 Freq: Status: Active Protocol: Document 05/29/19 14:30 SAK (Rec: 05/30/19 14:24 SAK [id number]) OP-PT Balance Assessment Sitting Balance Static Sitting Balance Ability Good Dynamic Sitting Balance Ability Fair Standing Balance Static Standing Balance Ability Good Dynamic Standing Balance Ability Fair Device Used [facility] right Tinetti Balance Assessment Sitting Balance Sitting Balance Steady, safe Arising from Chair Attempts to Arise Able, requires >1 attempt Standing Balance Immediate Standing Balance Steady with support Standing Balance Steady, wide stance Nudged Response Begins to fall Standing with Eyes Closed Unsteady Turning Step Pattern Turning 360 Degrees Discontinuous steps Stability Turning 360 Degrees Unsteady, grabs/staggers Sitting Down Sitting Down Uses arms or unsteady Gait and Step Initiation of Gait Hesitancy, mult. attempts Right Foot Step Length Does not pass stance ft. Right Foot Step Height Does not clear floor Left Foot Step Length Does not pass stance foot Left Foot Step Height Does not clear floor Step Description Step Symmetry Step length not equal Gait Description Path Description Mild/moderate deviation Trunk Description Marked sway or uses aide Walking Stance Heels apart Scoring and Interpretation Tinetti Composite Score (points) 6 Interpretation of Scores High risk for falls(< 19) Herrera Fall Scale Copyright Permission PT-OP-E Functional Tests Start: 05/28/19 08:11 Freq: Status: Active Protocol: Document 05/14/21 10:50 [facility] (Rec: 05/14/21 11:08 [facility] [id number]) Functional Tests 6 Minute Walk Test Distance 169ft Device Used spc, TB wrapping Comments pt has headache today and feels that may have slowed her down. Timed Up and Go (TUG) Score 107 seconds PT-OP-G Mobility & Gait Start: 05/28/19 08:11 Freq: Status: Active Protocol: Document 05/26/20 11:15 SAK (Rec: 05/26/20 17:04 SAK [id number]) OP Mobility Evaluation Bed Mobility Rolling min assist to right CGA to left Supine to and from Sit min assist to right CGA to left Transfers Sit to Stand CGA to min assist without UE use Bed to Chair Transfers requires use of right UE but able to do with SBA Floor Transfers unable PT-OP-H Neuro Start: 05/28/19 08:11 Freq: Status: Active Protocol: Document 05/29/19 14:30 SAK (Rec: 05/30/19 14:24 SAK [id number]) Sensation Evaluation Gross Sensation Gross Sensation Left UE Impaired,Left LE Impaired Sensation Description Paresthesia,Numbness Coordination Evaluation Lower Extremity Tests Left Alternate Heel to Knee; Heel to Toe Test Moderate Impairment Heel on Boles Test Moderate Impairment Foot Tapping Test Moderate Impairment PT-OP-K Range of Motion Start: 05/28/19 08:11 Freq: Status: Active Protocol: Document 05/26/20 11:15 SAK (Rec: 05/26/20 17:04 SAK [id number]) Hip Goniometric Range of Motion Hip jake Hip ROM WFL Yes Comments actively right LE, passively left LE Knee Goniometric Range of Motion Knee jake Knee ROM WFL Yes Ankle and Foot Goniometric Range of Motion Ankle and Foot Left Passive Ankle/Foot ROM WFL No Left Active Ankle/Foot ROM WFL No PT-OP-M Strength Start: 05/28/19 08:11 Freq: Status: Active Protocol: Document 05/26/20 11:15 [facility] (Rec: 05/26/20 17:04 [facility] [id number]) Hip Strength Hip Manual Muscle Testing Left Flexion (L2) 3- Fair- Extension (S1) 2 Poor Abduction 2+ Poor+ External Rotation 3- Fair- Internal Rotation 3+ Fair+ Right Flexion (L2) 4 Good Extension (S1) 4- Good- Abduction 4 Good External Rotation 3+ Fair+ Internal Rotation 4- Good- PT-OP-Q Treatments Start: 05/28/19 08:11 Freq: Status: Active Protocol: Document 11/03/21 09:57 [facility] (Rec: 11/03/21 10:36 [facility] [id number]) Cardio Equipment Recumbent Stepper (Sci-Fit) Duration (Minutes) 10 Resistance 2.2 Seat Position 10 Other cues for left LE alignment, 1. 15 miles Therapeutic Exercises Sitting Exercises HC stretch Side left Resistance AAROM Equipment Used manual Reps/Minutes 30 x 3 Gait Training Gait Activity backward Device Used none Level of Assistance CGA Surface firm, parallel bars Distance/Duration 6'x2 Treatment Focus decreased support, gluteal activation Comments mirror for visual feedback. uneven Description uneven Device Used AFO, no cane Level of Assistance CGA-mod assist Surface 1 red yoga mat Comments 2x across mat, cues for LE sequencing, weight shift to left, increased step length right. Patient anxious but postive self talk encouraged. parallel bars Description forward, back, Device Used //bar mostly no UE support, occasional light touch support , AFO Surface firm Distance/Duration 3x each direction Treatment Focus neutral alignment, weight- shift over LLE required verbal sequencing Comments No theraband wrap on LE. Used mirror for visual feedback fwd /bwd and pt was able to improve LLE weight shift. pre-gait weight shifts Description side to side (AFO doffed) Device Used none Level of Assistance CG, verbal cues Surface firm Distance/Duration rail on R Treatment Focus increased weight bearing left LE (cued >50-75%) Comments mirror for visual feedback Neuro Re-Education Treatment Balance Activities standing balance Details lateral & A/P weight shifts in WBOS, head turns, EC Surface firm, sneakers w/ and w/out AFO LLE Equipment in//bars PRN contact Reps/Duration 8 min Comments cues and manual facilitation for soft L knee, increased weight-shift left, minimal UE support on //, able complete head turns and EC 6 sec w/ and without LLE AFO. PT-OP-R Modalities Start: 05/28/19 08:11 Freq: Status: Active Protocol: Document 12/29/20 10:30 SP (Rec: 12/29/20 11:44 SP [id number]) Electric Stimulation Electric Stimulation Functional Electric Stimulation Body Location L hand/ forearm extensors Duration (Minutes) 2 Patient Position Sitting Comments NMES- education on placement of pad for muscular feedback extension based- check self placement understanding. PT-OP-T Assessment and Plan Start: 05/28/19 08:11 Freq: Status: Active Protocol: Document 11/03/21 09:57 SAK (Rec: 11/03/21 10:36 SAK [id number]) Physical Therapy Assessment Goals Five Impairment gait speed not adequate for safe community ambulation Fpc Goal (LTG) Patient able to ambulate 300' in 6 min. TUG score no greater than 30 sec 06/02/20: 134' 08/28/20: 144', likely not as high due to new shoes and wearing old AFO because fits better in new shoes. Requires level 4 theraband for derotation of left LE into more neutral position for gait . 09/19/20: 146 ft 6 min w/ QC and Tb wrapping to LLE. 11/13/20: 153 ft CG w/ SPC 2>3 pt gait w/out metronome w/ reported L glut/ lateral leg burn pain, 2 step brief stand breaks. 11/24/20: progressing 173.7 ft using SPC, predominently 2 pt gait. TUG score 59 sec using SP 01/27/21: TUG 55 sec. , 6 min walk test 199.9 ft with SPC 03/19/21: 6 min walk test 165' , TUG 1:20. Continue with use of theraband for derotation of excess ER left LE with gait . 04/16/21: 6MWT 190 ft w/ SPC and TB wrapping assist hip IR. 04/23/21: 6MWT 181 ftw/ SPC and TB wrapping 06/25/21: 6MWT 180 ft with SPC and TB wrapping. TU sec 09/16/21 - average gait speed 0 .14 m/s on 6MWT which pt completed with no AD (AFO only ). LTG Duration 12/24/21 Four Impairment requires assistance with bed mobility and transfers Short Term Goal (STG) Patient will be able to perform all bed mobility independently to improve her functional independence. 10/31/19: good goal progress 06/02/20:inconsistent, but min assist most times 11/24/20: Met goal: pt is independent in supine>sit. STG Duration goal met ( independent 11/24/20 ) Bike Mechanic Goal (LTG) Patient will be able to perform a floor transfer with SB to min assist. 5x sit to stand score in no more than 15 sec as measure of functional strength for transfers 10/31/19: max assist today 01/02/20: has not been willing to try since 10/31/19 06/02/21: does not feel strong enough to try yet. 06/25/21: 08/28/20: max assistance required 12/02/20: remains at max assist , not recently willing to attempt floor transfer. 5x sit to stand score 26 seconds 01/27/21: not tried recently. 03/24/21: 5x sit to stand 25 sec. No floor transfer today 06/25/21: 5x sit to stand 24 sec. Patient didn't feel up to doing floor transfer, remains a concern 09/16/21: Pt willing to work on floor transfers but demonstrates a great deal of fear avoidance. 5 Time Sit to Stand today in 30.4 seconds from standard height chair with no use of RUE LTG Duration 12/24/21 Three Impairment weakness left UE and LE s/p CVA Bike Mechanic Goal (LTG) Improve functional strength in left LE, as evidenced by ability to move from sit > < stand without use of UE's. 10/31/19: OT starts tomorrow. Good progress with sit to stand, though mostly using right UE and LE 01/02/20: Improving ability to perform, able to increase weight-bearing through left LE with cues, but still some use of right UE 05/26/20: With manual and visual feedback patient able to transfer sit to stand with only CG A. 08/28/20: inconsistent ability to move sit to stand without using UE's, but able to do transfer without physical assistance 11/24/20: Goal Met 01/27/21: more difficulty recently, having to use hands. Goal reactivated. 03/24/21: difficulty motor planning and performing sit to stand today. 06/25/21: patient becomes frustrated with sit to stand transfers as she expresses she feels she has a hard time remembering how to do it, has to use right UE 09/16/21 Pt completes sit to stand x 5 today without use of RUE from std height chair. LTG Duration 12/24/21 Two Impairment balance dysfunction with high risk for falls Bike Mechanic Goal (LTG) Improve balance as evidenced by improvement in Tinnetti balance and gait score to low fall risk range to improve safety in the home and community. 10/31/19: remains high risk for falls 01/02/20: some improvement but still in high risk category 05/26/20: Tinetti score in high risk category 08/28/20: moderate risk for falls 12/02/20: remains in moderate risk for falls. 01/27/21: moderate risk for falls 03/24/21: no significant change noted today but again having poor day. 06/25/21: Moderate risk for falls, though no reported falls over past few months. 09/16/21 No change LTG Duration 12/24/21 One Impairment requires armaan-walker for gait, limited to household gait Bike Mechanic Goal (LTG) Patient able to ambulate with least restrictive device for functional community distances to improve her functional independence and quality of life. 10/30/19: no progress due to Covid 19. 11/02/19: able to ambulate with quad cane but with very slow speed, household distances, very short community distances . 05/26/20: Now able to ambulate with use of single point cane and use of L4 theraband wrapped around left LE to facilitate left LE internal rotation for improved alignment. Patient unable to don the theraband on her own. Gait is for short distances and very slow at 39 ft in 2 min. 08/28/20: has demonstrated improved gait ability, still using theraband for derotation of LE for more neutral position. Able to consistenly use quad cane and is increasing stride length especially with cues. Now able to ascend and descend 4 stairs with min assist using railing. Mod assist on 6 stairs. 12/02/20: Patient ambulating with SPC, mostly household but some community distances, improved gait alignment with use of theraband for improved alignment. Patient not consistently able to ambulate community distances due to pain in her left LE, and lack of neurological control left LE. Patient may benefit from modification to her current AFO or fabrication of new AFO. 173 ft in 6 minutes 01/27/21: using SPC. Limitations due to left foot, knee and hip pain, right wrist pain 6 min walk test improved to 199.9 feet today 03/24/21: slower 6 min walk test today as above. Has had modification to her AFO with some improvement in her function, but had poor day today. 06/25/21: 180' on 6 min walk test, patient reports left knee feeling wonky, and right UE still painful due to surgery' having stitches out today. Also c/o lack of caregiver recently has limited her walking, no outings. Will try again next session. 09/16/21: Pt completes 6MWT without cane today/ Average gait speed 0.14 m/s. LTG Duration 12/24/21 Assessment Summary Assessment Initially [place] verbalizing low energy, but imporved after starting with Sci-Fit. Her left ankle was more tight today with her having more difficulty weight shifting to left or achieving foot flat. Was able to walk across yoga mats without pausing prior due to fear. Physical Therapy Plan Frequency and Duration Frequency of Treatment 2x/Week Duration of Treatment 3 months Plan of Care Start Date 09/23/21 Plan of Care End Date 12/24/21 Therapeutic Interventions Therapeutic Interventions Aquatic Therapy,Balance Training,Gait Training,Home Exercise Program,Neuromuscular Re-education,Orthotic/ Prosthetic Management,Patient/ Caregiver Education,Self-Care/ Home Management,Taping, Therapeutic Activities, Therapeutic Exercises Modalities Cold Pack/Ice Massage,Hot Packs Next Visit Focus/Plan Next Note Type Treatment Note Next Visit Plan further use of mirror for patient feedback for weight shifting to left with pre-gait activities, continue gait training and functional strengthening. Work on bed scooting to allow for improved bed positioning. Functional squats and reaching using cones and balls.
--- NOTE | 2021-11-05 11:49 | PT.OTN ---
Current Diagnoses Difficulty in walking, not elsewhere classified (11/05/21) Weakness (11/05/21) History of falling (11/05/21) Physical Therapy Treatment Note PT-OP-A Visit Information Start: 05/28/19 08:11 Freq: Status: Active Protocol: Document 11/05/21 09:46 SAK (Rec: 11/05/21 10:33 SAK [id number]) Out-Patient Physical Therapy Visit Information Visit Information Visit Type Treatment Note Visit Start Time 09:55 Visit Stop Time 10:40 Total Visit Minutes 45 Visit Number 147 Precautions Precautions Seizure disorder memory dysfunction PT-OP-B Current Condition Start: 05/28/19 08:11 Freq: Status: Active Protocol: Document 06/04/20 11:15 SAK (Rec: 06/05/20 16:34 SAK [id number]) Current Condition History of Current Condition Onset Date 2014 Current Complaints weakness, requires assistance with all mobility and household tasks History of Current Condition Reports that she suffered a stroke in 2014 after surgery for brain aneurysm. CVA caused weakness on the left side of her body, gait and balance difficulty, seizures. PT-OP-C Subjective Start: 05/28/19 08:11 Freq: Status: Active Protocol: Document 11/03/21 09:57 SAK (Rec: 11/03/21 10:36 SAK [id number]) OP-PT Subjective Patient Comments Patient Comments sluggish this am, not much exercise due to heat PT-OP-D Balance Start: 05/28/19 08:11 Freq: Status: Active Protocol: Document 05/29/19 14:30 SAK (Rec: 05/30/19 14:24 SAK [id number]) OP-PT Balance Assessment Sitting Balance Static Sitting Balance Ability Good Dynamic Sitting Balance Ability Fair Standing Balance Static Standing Balance Ability Good Dynamic Standing Balance Ability Fair Device Used [facility] right Tinetti Balance Assessment Sitting Balance Sitting Balance Steady, safe Arising from Chair Attempts to Arise Able, requires >1 attempt Standing Balance Immediate Standing Balance Steady with support Standing Balance Steady, wide stance Nudged Response Begins to fall Standing with Eyes Closed Unsteady Turning Step Pattern Turning 360 Degrees Discontinuous steps Stability Turning 360 Degrees Unsteady, grabs/staggers Sitting Down Sitting Down Uses arms or unsteady Gait and Step Initiation of Gait Hesitancy, mult. attempts Right Foot Step Length Does not pass stance ft. Right Foot Step Height Does not clear floor Left Foot Step Length Does not pass stance foot Left Foot Step Height Does not clear floor Step Description Step Symmetry Step length not equal Gait Description Path Description Mild/moderate deviation Trunk Description Marked sway or uses aide Walking Stance Heels apart Scoring and Interpretation Tinetti Composite Score (points) 6 Interpretation of Scores High risk for falls(< 19) Herrera Fall Scale Copyright Permission PT-OP-E Functional Tests Start: 05/28/19 08:11 Freq: Status: Active Protocol: Document 05/14/21 10:50 [facility] (Rec: 05/14/21 11:08 [facility] [id number]) Functional Tests 6 Minute Walk Test Distance 169ft Device Used spc, TB wrapping Comments pt has headache today and feels that may have slowed her down. Timed Up and Go (TUG) Score 107 seconds PT-OP-G Mobility & Gait Start: 05/28/19 08:11 Freq: Status: Active Protocol: Document 05/26/20 11:15 SAK (Rec: 05/26/20 17:04 SAK [id number]) OP Mobility Evaluation Bed Mobility Rolling min assist to right CGA to left Supine to and from Sit min assist to right CGA to left Transfers Sit to Stand CGA to min assist without UE use Bed to Chair Transfers requires use of right UE but able to do with SBA Floor Transfers unable PT-OP-H Neuro Start: 05/28/19 08:11 Freq: Status: Active Protocol: Document 05/29/19 14:30 SAK (Rec: 05/30/19 14:24 SAK [id number]) Sensation Evaluation Gross Sensation Gross Sensation Left UE Impaired,Left LE Impaired Sensation Description Paresthesia,Numbness Coordination Evaluation Lower Extremity Tests Left Alternate Heel to Knee; Heel to Toe Test Moderate Impairment Heel on Boles Test Moderate Impairment Foot Tapping Test Moderate Impairment PT-OP-K Range of Motion Start: 05/28/19 08:11 Freq: Status: Active Protocol: Document 05/26/20 11:15 SAK (Rec: 05/26/20 17:04 SAK [id number]) Hip Goniometric Range of Motion Hip jake Hip ROM WFL Yes Comments actively right LE, passively left LE Knee Goniometric Range of Motion Knee jake Knee ROM WFL Yes Ankle and Foot Goniometric Range of Motion Ankle and Foot Left Passive Ankle/Foot ROM WFL No Left Active Ankle/Foot ROM WFL No PT-OP-M Strength Start: 05/28/19 08:11 Freq: Status: Active Protocol: Document 05/26/20 11:15 [facility] (Rec: 05/26/20 17:04 [facility] [id number]) Hip Strength Hip Manual Muscle Testing Left Flexion (L2) 3- Fair- Extension (S1) 2 Poor Abduction 2+ Poor+ External Rotation 3- Fair- Internal Rotation 3+ Fair+ Right Flexion (L2) 4 Good Extension (S1) 4- Good- Abduction 4 Good External Rotation 3+ Fair+ Internal Rotation 4- Good- PT-OP-Q Treatments Start: 05/28/19 08:11 Freq: Status: Active Protocol: Document 11/05/21 09:46 [facility] (Rec: 11/05/21 11:49 [facility] [id number]) Therapeutic Exercises Sitting Exercises HS stretch Reps/Minutes 2x30 Comments manual HC stretch Side left Resistance AAROM Equipment Used manual Reps/Minutes 30 x 3 Standing Exercises calf stretch Equipment Used REKHA, no AFO Reps/Minutes 2x30 Comments verbal and manual cues, UE support, cues for upright posture Gait Training Gait Activity backward Device Used none, no AFO Level of Assistance CGA Surface firm, parallel bars Distance/Duration 5' x 2 Treatment Focus decreased support, gluteal activation Comments mirror for visual feedback. uneven Description uneven Device Used AFO, no cane Level of Assistance CGA-mod assist Surface 1 red yoga mat Comments 2x across mat, cues for LE sequencing, weight shift to left, increased step length right. Patient anxious but postive self talk encouraged. parallel bars Description forward Device Used //bar mostly no UE support, occasional light touch support , AFO Surface firm Distance/Duration 3x each direction Treatment Focus neutral alignment, weight- shift over LLE required verbal sequencing pre-gait weight shifts Description side to side with and without AFO Device Used none Level of Assistance CG, verbal cues Surface firm Distance/Duration rail on R Treatment Focus increased weight bearing left LE (cued >50-75%) Comments mirror for visual feedback stair mgt Device Used right railing Level of Assistance verbal cues, mod assist for left LE alignment 50% of steps Surface 4 stairs; 10 stairs Distance/Duration 1x Treatment Focus decreased use of right UE, inc wt shift to left, anterior pelvic wt Neuro Re-Education Treatment Balance Activities standing balance Details lateral & A/P weight shifts in WBOS, head turns, EC Surface firm, sneakers w/ and w/out AFO LLE Equipment in//bars PRN contact Reps/Duration 8 min Comments cues and manual facilitation for soft L knee, increased weight-shift left, minimal UE support on //, able complete head turns and EC 6 sec w/ and without LLE AFO. PT-OP-R Modalities Start: 05/28/19 08:11 Freq: Status: Active Protocol: Document 12/29/20 10:30 SP (Rec: 12/29/20 11:44 SP [id number]) Electric Stimulation Electric Stimulation Functional Electric Stimulation Body Location L hand/ forearm extensors Duration (Minutes) 2 Patient Position Sitting Comments NMES- education on placement of pad for muscular feedback extension based- check self placement understanding. PT-OP-T Assessment and Plan Start: 05/28/19 08:11 Freq: Status: Active Protocol: Document 11/05/21 09:46 SAK (Rec: 11/05/21 10:33 SAK [id number]) Physical Therapy Assessment Goals Five Impairment gait speed not adequate for safe community ambulation [employer] Goal (LTG) Patient able to ambulate 300' in 6 min. TUG score no greater than 30 sec 06/02/20: 134' 08/28/20: 144', likely not as high due to new shoes and wearing old AFO because fits better in new shoes. Requires level 4 theraband for derotation of left LE into more neutral position for gait . 09/19/20: 146 ft 6 min w/ QC and Tb wrapping to LLE. 11/13/20: 153 ft CG w/ SPC 2>3 pt gait w/out metronome w/ reported L glut/ lateral leg burn pain, 2 step brief stand breaks. 11/24/20: progressing 173.7 ft using SPC, predominently 2 pt gait. TUG score 59 sec using SP 01/27/21: TUG 55 sec. , 6 min walk test 199.9 ft with SPC 03/19/21: 6 min walk test 165' , TUG 1:20. Continue with use of theraband for derotation of excess ER left LE with gait . 04/16/21: 6MWT 190 ft w/ SPC and TB wrapping assist hip IR. 04/23/21: 6MWT 181 ftw/ SPC and TB wrapping 2/17/22: 6MWT 180 ft with SPC and TB wrapping. TU sec 09/16/21 - average gait speed 0 .14 m/s on 6MWT which pt completed with no AD (AFO only ). LTG Duration 12/24/21 Four Impairment requires assistance with bed mobility and transfers Short Term Goal (STG) Patient will be able to perform all bed mobility independently to improve her functional independence. 10/31/19: good goal progress 06/02/20:inconsistent, but min assist most times 11/24/20: Met goal: pt is independent in supine>sit. STG Duration goal met ( independent 11/24/20 ) [facility] Goal (LTG) Patient will be able to perform a floor transfer with SB to min assist. 5x sit to stand score in no more than 15 sec as measure of functional strength for transfers 10/31/19: max assist today 01/02/20: has not been willing to try since 10/31/19 06/02/21: does not feel strong enough to try yet. 06/25/21: 08/28/20: max assistance required 12/02/20: remains at max assist , not recently willing to attempt floor transfer. 5x sit to stand score 26 seconds 01/27/21: not tried recently. 03/24/21: 5x sit to stand 25 sec. No floor transfer today 06/25/21: 5x sit to stand 24 sec. Patient didn't feel up to doing floor transfer, remains a concern 09/16/21: Pt willing to work on floor transfers but demonstrates a great deal of fear avoidance. 5 Time Sit to Stand today in 30.4 seconds from standard height chair with no use of RUE LTG Duration 12/24/21 Three Impairment weakness left UE and LE s/p CVA [employer] Goal (LTG) Improve functional strength in left LE, as evidenced by ability to move from sit > < stand without use of UE's. 10/31/19: OT starts tomorrow. Good progress with sit to stand, though mostly using right UE and LE 01/02/20: Improving ability to perform, able to increase weight-bearing through left LE with cues, but still some use of right UE 05/26/20: With manual and visual feedback patient able to transfer sit to stand with only CG A. 08/28/20: inconsistent ability to move sit to stand without using UE's, but able to do transfer without physical assistance 11/24/20: Goal Met 01/27/21: more difficulty recently, having to use hands. Goal reactivated. 03/24/21: difficulty motor planning and performing sit to stand today. 06/25/21: patient becomes frustrated with sit to stand transfers as she expresses she feels she has a hard time remembering how to do it, has to use right UE 09/16/21 Pt completes sit to stand x 5 today without use of RUE from std height chair. LTG Duration 12/24/21 Two Impairment balance dysfunction with high risk for falls [employer] Goal (LTG) Improve balance as evidenced by improvement in Tinnetti balance and gait score to low fall risk range to improve safety in the home and community. 10/31/19: remains high risk for falls 01/02/20: some improvement but still in high risk category 05/26/20: Tinetti score in high risk category 08/28/20: moderate risk for falls 12/02/20: remains in moderate risk for falls. 01/27/21: moderate risk for falls 03/24/21: no significant change noted today but again having poor day. 06/25/21: Moderate risk for falls, though no reported falls over past few months. 09/16/21 No change LTG Duration 12/24/21 One Impairment requires armaan-walker for gait, limited to household gait [employer] Goal (LTG) Patient able to ambulate with least restrictive device for functional community distances to improve her functional independence and quality of life. 10/30/19: no progress due to Covid 19. 11/02/19: able to ambulate with quad cane but with very slow speed, household distances, very short community distances . 05/26/20: Now able to ambulate with use of single point cane and use of L4 theraband wrapped around left LE to facilitate left LE internal rotation for improved alignment. Patient unable to don the theraband on her own. Gait is for short distances and very slow at 39 ft in 2 min. 08/28/20: has demonstrated improved gait ability, still using theraband for derotation of LE for more neutral position. Able to consistenly use quad cane and is increasing stride length especially with cues. Now able to ascend and descend 4 stairs with min assist using railing. Mod assist on 6 stairs. 12/02/20: Patient ambulating with SPC, mostly household but some community distances, improved gait alignment with use of theraband for improved alignment. Patient not consistently able to ambulate community distances due to pain in her left LE, and lack of neurological control left LE. Patient may benefit from modification to her current AFO or fabrication of new AFO. 173 ft in 6 minutes 01/27/21: using SPC. Limitations due to left foot, knee and hip pain, right wrist pain 6 min walk test improved to 199.9 feet today 03/24/21: slower 6 min walk test today as above. Has had modification to her AFO with some improvement in her function, but had poor day today. 06/25/21: 180' on 6 min walk test, patient reports left knee feeling wonky, and right UE still painful due to surgery' having stitches out today. Also c/o lack of caregiver recently has limited her walking, no outings. Will try again next session. 09/16/21: Pt completes 6MWT without cane today/ Average gait speed 0.14 m/s. LTG Duration 12/24/21 Assessment Summary Assessment Patient weight shift and anterior movement of left pelvis as moves into weight bearing improved today with patient self-cuing and demonstrating good understanding. Brought high- top tennis shoe which she wore left foot without AFO, able to ambulate 10 ft in parallel bars with moderate right UE support but without AFO. Continues to make good progress with mobility skills especially gait without device . Physical Therapy Plan Frequency and Duration Frequency of Treatment 2x/Week Duration of Treatment 3 months Plan of Care Start Date 09/23/21 Plan of Care End Date 12/24/21 Therapeutic Interventions Therapeutic Interventions Aquatic Therapy,Balance Training,Gait Training,Home Exercise Program,Neuromuscular Re-education,Orthotic/ Prosthetic Management,Patient/ Caregiver Education,Self-Care/ Home Management,Taping, Therapeutic Activities, Therapeutic Exercises Modalities Cold Pack/Ice Massage,Hot Packs Next Visit Focus/Plan Next Note Type Treatment Note Next Visit Plan further use of mirror for patient feedback for weight shifting to left with pre-gait activities, continue gait training and functional strengthening. Work on bed scooting to allow for improved bed positioning. Functional squats and reaching using cones and balls.
--- NOTE | 2021-11-16 13:42 | PT.OTN ---
Current Diagnoses Difficulty in walking, not elsewhere classified (11/16/21) Weakness (11/16/21) History of falling (11/16/21) Physical Therapy Treatment Note PT-OP-A Visit Information Start: 05/28/19 08:11 Freq: Status: Active Protocol: Document 11/16/21 12:00 DCW (Rec: 11/16/21 12:52 DCW [id number]) Out-Patient Physical Therapy Visit Information Visit Information Visit Start Time 12:00 Visit Stop Time 12:55 Total Visit Minutes 55 Visit Number 148 Precautions Precautions Seizure disorder memory dysfunction PT-OP-B Current Condition Start: 05/28/19 08:11 Freq: Status: Active Protocol: Document 06/04/20 11:15 SAK (Rec: 06/05/20 16:34 SAK [id number]) Current Condition History of Current Condition Onset Date 2014 Current Complaints weakness, requires assistance with all mobility and household tasks History of Current Condition Reports that she suffered a stroke in 2014 after surgery for brain aneurysm. CVA caused weakness on the left side of her body, gait and balance difficulty, seizures. PT-OP-C Subjective Start: 05/28/19 08:11 Freq: Status: Active Protocol: Document 11/16/21 12:00 DCW (Rec: 11/16/21 12:52 DCW [id number]) OP-PT Subjective Patient Comments Patient Comments The foot isn't behaving today . PT-OP-D Balance Start: 05/28/19 08:11 Freq: Status: Active Protocol: Document 05/29/19 14:30 SAK (Rec: 05/30/19 14:24 SAK [id number]) OP-PT Balance Assessment Sitting Balance Static Sitting Balance Ability Good Dynamic Sitting Balance Ability Fair Standing Balance Static Standing Balance Ability Good Dynamic Standing Balance Ability Fair Device Used [facility] right Tinetti Balance Assessment Sitting Balance Sitting Balance Steady, safe Arising from Chair Attempts to Arise Able, requires >1 attempt Standing Balance Immediate Standing Balance Steady with support Standing Balance Steady, wide stance Nudged Response Begins to fall Standing with Eyes Closed Unsteady Turning Step Pattern Turning 360 Degrees Discontinuous steps Stability Turning 360 Degrees Unsteady, grabs/staggers Sitting Down Sitting Down Uses arms or unsteady Gait and Step Initiation of Gait Hesitancy, mult. attempts Right Foot Step Length Does not pass stance ft. Right Foot Step Height Does not clear floor Left Foot Step Length Does not pass stance foot Left Foot Step Height Does not clear floor Step Description Step Symmetry Step length not equal Gait Description Path Description Mild/moderate deviation Trunk Description Marked sway or uses aide Walking Stance Heels apart Scoring and Interpretation Tinetti Composite Score (points) 6 Interpretation of Scores High risk for falls(< 19) Herrera Fall Scale Copyright Permission PT-OP-E Functional Tests Start: 05/28/19 08:11 Freq: Status: Active Protocol: Document 05/14/21 10:50 AMH (Rec: 05/14/21 11:08 AMH [id number]) Functional Tests 6 Minute Walk Test Distance 169ft Device Used spc, TB wrapping Comments pt has headache today and feels that may have slowed her down. Timed Up and Go (TUG) Score 107 seconds PT-OP-G Mobility & Gait Start: 05/28/19 08:11 Freq: Status: Active Protocol: Document 05/26/20 11:15 SAK (Rec: 05/26/20 17:04 SAK [id number]) OP Mobility Evaluation Bed Mobility Rolling min assist to right CGA to left Supine to and from Sit min assist to right CGA to left Transfers Sit to Stand CGA to min assist without UE use Bed to Chair Transfers requires use of right UE but able to do with SBA Floor Transfers unable PT-OP-H Neuro Start: 05/28/19 08:11 Freq: Status: Active Protocol: Document 05/29/19 14:30 SAK (Rec: 05/30/19 14:24 SAK [id number]) Sensation Evaluation Gross Sensation Gross Sensation Left UE Impaired,Left LE Impaired Sensation Description Paresthesia,Numbness Coordination Evaluation Lower Extremity Tests Left Alternate Heel to Knee; Heel to Toe Test Moderate Impairment Heel on Boles Test Moderate Impairment Foot Tapping Test Moderate Impairment PT-OP-K Range of Motion Start: 05/28/19 08:11 Freq: Status: Active Protocol: Document 05/26/20 11:15 SAK (Rec: 05/26/20 17:04 SAK [id number]) Hip Goniometric Range of Motion Hip jake Hip ROM WFL Yes Comments actively right LE, passively left LE Knee Goniometric Range of Motion Knee jake Knee ROM WFL Yes Ankle and Foot Goniometric Range of Motion Ankle and Foot Left Passive Ankle/Foot ROM WFL No Left Active Ankle/Foot ROM WFL No PT-OP-M Strength Start: 05/28/19 08:11 Freq: Status: Active Protocol: Document 05/26/20 11:15 SAK (Rec: 05/26/20 17:04 SAK [id number]) Hip Strength Hip Manual Muscle Testing Left Flexion (L2) 3- Fair- Extension (S1) 2 Poor Abduction 2+ Poor+ External Rotation 3- Fair- Internal Rotation 3+ Fair+ Right Flexion (L2) 4 Good Extension (S1) 4- Good- Abduction 4 Good External Rotation 3+ Fair+ Internal Rotation 4- Good- PT-OP-Q Treatments Start: 05/28/19 08:11 Freq: Status: Active Protocol: Document 11/16/21 12:00 DCW (Rec: 11/16/21 12:52 DCW [id number]) Therapeutic Exercises Sitting Exercises HS stretch Reps/Minutes 2x30 Comments manual HC stretch Side left Resistance AAROM Equipment Used manual Reps/Minutes 30 x 3 Standing Exercises calf stretch Equipment Used REKHA, no AFO Reps/Minutes 2x30 Comments verbal and manual cues, UE support, cues for upright posture Gait Training Gait Activity uneven Description uneven Device Used AFO, no cane Level of Assistance CGA-mod assist Surface 1 red yoga mat Comments 2x across mat, cues for LE sequencing, weight shift to left, increased step length right. Patient anxious but postive self talk encouraged. parallel bars Description forward Device Used //bar mostly no UE support, occasional light touch support , AFO Surface firm Distance/Duration 3x each direction Treatment Focus neutral alignment, weight- shift over LLE required verbal sequencing Neuro Re-Education Treatment Balance Activities hurdles Details single shyanne Equipment R rail, 4 tall green shyanne standing balance Details lateral & A/P weight shifts in WBOS, head turns, EC Surface firm, sneakers w/ and w/out AFO LLE Equipment in//bars PRN contact Reps/Duration 8 min Comments cues and manual facilitation for soft L knee, increased weight-shift left, minimal UE support on //, able complete head turns and EC 6 sec w/ and without LLE AFO. PT-OP-R Modalities Start: 05/28/19 08:11 Freq: Status: Active Protocol: Document 12/29/20 10:30 SP (Rec: 12/29/20 11:44 SP [id number]) Electric Stimulation Electric Stimulation Functional Electric Stimulation Body Location L hand/ forearm extensors Duration (Minutes) 2 Patient Position Sitting Comments NMES- education on placement of pad for muscular feedback extension based- check self placement understanding. PT-OP-T Assessment and Plan Start: 05/28/19 08:11 Freq: Status: Active Protocol: Document 11/16/21 12:00 DCW (Rec: 11/16/21 12:52 DCW [id number]) Physical Therapy Assessment Goals Five Impairment gait speed not adequate for safe community ambulation Manager Talent Goal (LTG) Patient able to ambulate 300' in 6 min. TUG score no greater than 30 sec 06/02/20: 134' 08/28/20: 144', likely not as high due to new shoes and wearing old AFO because fits better in new shoes. Requires level 4 theraband for derotation of left LE into more neutral position for gait . 09/19/20: 146 ft 6 min w/ QC and Tb wrapping to LLE. 11/13/20: 153 ft CG w/ SPC 2>3 pt gait w/out metronome w/ reported L glut/ lateral leg burn pain, 2 step brief stand breaks. 11/24/20: progressing 173.7 ft using SPC, predominently 2 pt gait. TUG score 59 sec using SP 01/27/21: TUG 55 sec. , 6 min walk test 199.9 ft with SPC 03/19/21: 6 min walk test 165' , TUG 1:20. Continue with use of theraband for derotation of excess ER left LE with gait . 04/16/21: 6MWT 190 ft w/ SPC and TB wrapping assist hip IR. 04/23/21: 6MWT 181 ftw/ SPC and TB wrapping 06/25/21: 6MWT 180 ft with SPC and TB wrapping. TU sec 09/16/21 - average gait speed 0 .14 m/s on 6MWT which pt completed with no AD (AFO only ). LTG Duration 12/24/21 Four Impairment requires assistance with bed mobility and transfers Short Term Goal (STG) Patient will be able to perform all bed mobility independently to improve her functional independence. 10/31/19: good goal progress 06/02/20:inconsistent, but min assist most times 11/24/20: Met goal: pt is independent in supine>sit. STG Duration goal met ( independent 11/24/20 ) Chcf Goal (LTG) Patient will be able to perform a floor transfer with SB to min assist. 5x sit to stand score in no more than 15 sec as measure of functional strength for transfers 10/31/19: max assist today 01/02/20: has not been willing to try since 10/31/19 06/02/21: does not feel strong enough to try yet. 06/25/21: 08/28/20: max assistance required 12/02/20: remains at max assist , not recently willing to attempt floor transfer. 5x sit to stand score 26 seconds 01/27/21: not tried recently. 03/24/21: 5x sit to stand 25 sec. No floor transfer today 06/25/21: 5x sit to stand 24 sec. Patient didn't feel up to doing floor transfer, remains a concern 09/16/21: Pt willing to work on floor transfers but demonstrates a great deal of fear avoidance. 5 Time Sit to Stand today in 30.4 seconds from standard height chair with no use of RUE LTG Duration 12/24/21 Three Impairment weakness left UE and LE s/p CVA Chcf Goal (LTG) Improve functional strength in left LE, as evidenced by ability to move from sit > < stand without use of UE's. 10/31/19: OT starts tomorrow. Good progress with sit to stand, though mostly using right UE and LE 01/02/20: Improving ability to perform, able to increase weight-bearing through left LE with cues, but still some use of right UE 05/26/20: With manual and visual feedback patient able to transfer sit to stand with only CG A. 08/28/20: inconsistent ability to move sit to stand without using UE's, but able to do transfer without physical assistance 11/24/20: Goal Met 01/27/21: more difficulty recently, having to use hands. Goal reactivated. 03/24/21: difficulty motor planning and performing sit to stand today. 06/25/21: patient becomes frustrated with sit to stand transfers as she expresses she feels she has a hard time remembering how to do it, has to use right UE 09/16/21 Pt completes sit to stand x 5 today without use of RUE from std height chair. LTG Duration 12/24/21 Two Impairment balance dysfunction with high risk for falls Manager Talent Goal (LTG) Improve balance as evidenced by improvement in Tinnetti balance and gait score to low fall risk range to improve safety in the home and community. 10/31/19: remains high risk for falls 01/02/20: some improvement but still in high risk category 05/26/20: Tinetti score in high risk category 08/28/20: moderate risk for falls 12/02/20: remains in moderate risk for falls. 01/27/21: moderate risk for falls 03/24/21: no significant change noted today but again having poor day. 06/25/21: Moderate risk for falls, though no reported falls over past few months. 09/16/21 No change LTG Duration 12/24/21 One Impairment requires armaan-walker for gait, limited to household gait Manager Talent Goal (LTG) Patient able to ambulate with least restrictive device for functional community distances to improve her functional independence and quality of life. 10/30/19: no progress due to Covid 19. 11/02/19: able to ambulate with quad cane but with very slow speed, household distances, very short community distances . 05/26/20: Now able to ambulate with use of single point cane and use of L4 theraband wrapped around left LE to facilitate left LE internal rotation for improved alignment. Patient unable to don the theraband on her own. Gait is for short distances and very slow at 39 ft in 2 min. 08/28/20: has demonstrated improved gait ability, still using theraband for derotation of LE for more neutral position. Able to consistenly use quad cane and is increasing stride length especially with cues. Now able to ascend and descend 4 stairs with min assist using railing. Mod assist on 6 stairs. 12/02/20: Patient ambulating with SPC, mostly household but some community distances, improved gait alignment with use of theraband for improved alignment. Patient not consistently able to ambulate community distances due to pain in her left LE, and lack of neurological control left LE. Patient may benefit from modification to her current AFO or fabrication of new AFO. 173 ft in 6 minutes 01/27/21: using SPC. Limitations due to left foot, knee and hip pain, right wrist pain 6 min walk test improved to 199.9 feet today 03/24/21: slower 6 min walk test today as above. Has had modification to her AFO with some improvement in her function, but had poor day today. 06/25/21: 180' on 6 min walk test, patient reports left knee feeling wonky, and right UE still painful due to surgery' having stitches out today. Also c/o lack of caregiver recently has limited her walking, no outings. Will try again next session. 09/16/21: Pt completes 6MWT without cane today/ Average gait speed 0.14 m/s. LTG Duration 12/24/21 Assessment Summary Assessment Patient pretty happy today after practicing stepping over single shyanne. Did begin to experience some increased hip soreness from overuse. Discussed working on trusting her left leg a little more to improve quick step-to right foot advancement. Physical Therapy Plan Frequency and Duration Frequency of Treatment 2x/Week Duration of Treatment 3 months Plan of Care Start Date 09/23/21 Plan of Care End Date 12/24/21 Therapeutic Interventions Therapeutic Interventions Aquatic Therapy,Balance Training,Gait Training,Home Exercise Program,Neuromuscular Re-education,Orthotic/ Prosthetic Management,Patient/ Caregiver Education,Self-Care/ Home Management,Taping, Therapeutic Activities, Therapeutic Exercises Modalities Cold Pack/Ice Massage,Hot Packs Next Visit Focus/Plan Next Note Type Treatment Note Next Visit Plan further use of mirror for patient feedback for weight shifting to left with pre-gait activities, continue gait training and functional strengthening. Work on bed scooting to allow for improved bed positioning. Functional squats and reaching using cones and balls.
--- NOTE | 2021-11-18 11:52 | PT-OP ANOTE ---
Pt called same day to cancel due to schedule conflict with another provider.
--- NOTE | 2021-11-25 10:30 | PT.OTN ---
Current Diagnoses Difficulty in walking, not elsewhere classified (11/25/21) Weakness (11/25/21) History of falling (11/25/21) Physical Therapy Treatment Note PT-OP-A Visit Information Start: 05/28/19 08:11 Freq: Status: Active Protocol: Document 11/25/21 08:57 AW (Rec: 11/25/21 10:30 AW [id number]) Out-Patient Physical Therapy Visit Information Visit Information Visit Type Treatment Note Visit Start Time 09:45 Visit Stop Time 10:25 Total Visit Minutes 40 Visit Number 149 Number of BELT SANDER Visits 0 Precautions Precautions Seizure disorder memory dysfunction PT-OP-B Current Condition Start: 05/28/19 08:11 Freq: Status: Active Protocol: Document 06/04/20 11:15 SAK (Rec: 06/05/20 16:34 SAK [id number]) Current Condition History of Current Condition Onset Date 2014 Current Complaints weakness, requires assistance with all mobility and household tasks History of Current Condition Reports that she suffered a stroke in 2014 after surgery for brain aneurysm. CVA caused weakness on the left side of her body, gait and balance difficulty, seizures. PT-OP-C Subjective Start: 05/28/19 08:11 Freq: Status: Active Protocol: Document 11/25/21 08:57 AW (Rec: 11/25/21 10:30 AW [id number]) OP-PT Subjective Patient Comments Patient Comments I'm happy with my walking this morning. PT-OP-D Balance Start: 05/28/19 08:11 Freq: Status: Active Protocol: Document 05/29/19 14:30 SAK (Rec: 05/30/19 14:24 SAK [id number]) OP-PT Balance Assessment Sitting Balance Static Sitting Balance Ability Good Dynamic Sitting Balance Ability Fair Standing Balance Static Standing Balance Ability Good Dynamic Standing Balance Ability Fair Device Used hemiwalker right Tinetti Balance Assessment Sitting Balance Sitting Balance Steady, safe Arising from Chair Attempts to Arise Able, requires >1 attempt Standing Balance Immediate Standing Balance Steady with support Standing Balance Steady, wide stance Nudged Response Begins to fall Standing with Eyes Closed Unsteady Turning Step Pattern Turning 360 Degrees Discontinuous steps Stability Turning 360 Degrees Unsteady, grabs/staggers Sitting Down Sitting Down Uses arms or unsteady Gait and Step Initiation of Gait Hesitancy, mult. attempts Right Foot Step Length Does not pass stance ft. Right Foot Step Height Does not clear floor Left Foot Step Length Does not pass stance foot Left Foot Step Height Does not clear floor Step Description Step Symmetry Step length not equal Gait Description Path Description Mild/moderate deviation Trunk Description Marked sway or uses aide Walking Stance Heels apart Scoring and Interpretation Tinetti Composite Score (points) 6 Interpretation of Scores High risk for falls(< 19) Herrera Fall Scale Copyright Permission PT-OP-E Functional Tests Start: 05/28/19 08:11 Freq: Status: Active Protocol: Document 05/14/21 10:50 AMH (Rec: 05/14/21 11:08 AMH [id number]) Functional Tests 6 Minute Walk Test Distance 169ft Device Used spc, TB wrapping Comments pt has headache today and feels that may have slowed her down. Timed Up and Go (TUG) Score 107 seconds PT-OP-G Mobility & Gait Start: 05/28/19 08:11 Freq: Status: Active Protocol: Document 05/26/20 11:15 SAK (Rec: 05/26/20 17:04 SAK [id number]) OP Mobility Evaluation Bed Mobility Rolling min assist to right CGA to left Supine to and from Sit min assist to right CGA to left Transfers Sit to Stand CGA to min assist without UE use Bed to Chair Transfers requires use of right UE but able to do with SBA Floor Transfers unable PT-OP-H Neuro Start: 05/28/19 08:11 Freq: Status: Active Protocol: Document 05/29/19 14:30 SAK (Rec: 05/30/19 14:24 SAK [id number]) Sensation Evaluation Gross Sensation Gross Sensation Left UE Impaired,Left LE Impaired Sensation Description Paresthesia,Numbness Coordination Evaluation Lower Extremity Tests Left Alternate Heel to Knee; Heel to Toe Test Moderate Impairment Heel on Boles Test Moderate Impairment Foot Tapping Test Moderate Impairment PT-OP-K Range of Motion Start: 05/28/19 08:11 Freq: Status: Active Protocol: Document 05/26/20 11:15 SAK (Rec: 05/26/20 17:04 SAK [id number]) Hip Goniometric Range of Motion Hip jake Hip ROM WFL Yes Comments actively right LE, passively left LE Knee Goniometric Range of Motion Knee jake Knee ROM WFL Yes Ankle and Foot Goniometric Range of Motion Ankle and Foot Left Passive Ankle/Foot ROM WFL No Left Active Ankle/Foot ROM WFL No PT-OP-M Strength Start: 05/28/19 08:11 Freq: Status: Active Protocol: Document 05/26/20 11:15 SAK (Rec: 05/26/20 17:04 SAK [id number]) Hip Strength Hip Manual Muscle Testing Left Flexion (L2) 3- Fair- Extension (S1) 2 Poor Abduction 2+ Poor+ External Rotation 3- Fair- Internal Rotation 3+ Fair+ Right Flexion (L2) 4 Good Extension (S1) 4- Good- Abduction 4 Good External Rotation 3+ Fair+ Internal Rotation 4- Good- PT-OP-Q Treatments Start: 05/28/19 08:11 Freq: Status: Active Protocol: Document 11/25/21 08:57 AW (Rec: 11/25/21 10:30 AW [id number]) Therapeutic Exercises Sitting Exercises HS stretch Reps/Minutes 2x30 Comments manual HC stretch Side left Resistance AAROM Equipment Used manual Reps/Minutes 30 x 3 Standing Exercises calf stretch Equipment Used REKHA, no AFO Reps/Minutes 2x30 Comments verbal and manual cues, UE support, cues for upright posture Gait Training Gait Activity backward Device Used none, no AFO Level of Assistance CGA Surface firm, parallel bars Distance/Duration 5' x 2 Treatment Focus decreased support, gluteal activation Comments mirror for visual feedback. uneven Description uneven Device Used AFO, no cane Level of Assistance CGA-min assist Surface 2 red yoga mats stacked Comments 3.5x laps across mat, cues for LE sequencing, weight shift to left, increased step length right. Better confidence today parallel bars Description forward Device Used //bar mostly no UE support, occasional light touch support , AFO Surface firm Distance/Duration 3x each direction Treatment Focus neutral alignment, weight- shift over LLE required verbal sequencing Neuro Re-Education Treatment Balance Activities hurdles Details single shyanne Equipment R rail, Comments fingertip support during LLE stance only PT-OP-R Modalities Start: 05/28/19 08:11 Freq: Status: Active Protocol: Document 12/29/20 10:30 SP (Rec: 12/29/20 11:44 SP [id number]) Electric Stimulation Electric Stimulation Functional Electric Stimulation Body Location L hand/ forearm extensors Duration (Minutes) 2 Patient Position Sitting Comments NMES- education on placement of pad for muscular feedback extension based- check self placement understanding. PT-OP-T Assessment and Plan Start: 05/28/19 08:11 Freq: Status: Active Protocol: Document 11/25/21 08:57 AW (Rec: 11/25/21 10:30 AW [id number]) Physical Therapy Assessment Goals Five Impairment gait speed not adequate for safe community ambulation Pierogi Maker Goal (LTG) Patient able to ambulate 300' in 6 min. TUG score no greater than 30 sec 06/02/20: 134' 08/28/20: 144', likely not as high due to new shoes and wearing old AFO because fits better in new shoes. Requires level 4 theraband for derotation of left LE into more neutral position for gait . 09/19/20: 146 ft 6 min w/ QC and Tb wrapping to LLE. 11/13/20: 153 ft CG w/ SPC 2>3 pt gait w/out metronome w/ reported L glut/ lateral leg burn pain, 2 step brief stand breaks. 11/24/20: progressing 173.7 ft using SPC, predominently 2 pt gait. TUG score 59 sec using SP 01/27/21: TUG 55 sec. , 6 min walk test 199.9 ft with SPC 03/19/21: 6 min walk test 165' , TUG 1:20. Continue with use of theraband for derotation of excess ER left LE with gait . 04/16/21: 6MWT 190 ft w/ SPC and TB wrapping assist hip IR. 04/23/21: 6MWT 181 ftw/ SPC and TB wrapping 06/25/21: 6MWT 180 ft with SPC and TB wrapping. TU sec 09/16/21 - average gait speed 0 .14 m/s on 6MWT which pt completed with no AD (AFO only ). LTG Duration 12/24/21 Four Impairment requires assistance with bed mobility and transfers Short Term Goal (STG) Patient will be able to perform all bed mobility independently to improve her functional independence. 10/31/19: good goal progress 06/02/20:inconsistent, but min assist most times 11/24/20: Met goal: pt is independent in supine>sit. STG Duration goal met ( independent 11/24/20 ) Retirement Goal (LTG) Patient will be able to perform a floor transfer with SB to min assist. 5x sit to stand score in no more than 15 sec as measure of functional strength for transfers 10/31/19: max assist today 01/02/20: has not been willing to try since 10/31/19 06/02/21: does not feel strong enough to try yet. 06/25/21: 08/28/20: max assistance required 12/02/20: remains at max assist , not recently willing to attempt floor transfer. 5x sit to stand score 26 seconds 01/27/21: not tried recently. 03/24/21: 5x sit to stand 25 sec. No floor transfer today 06/25/21: 5x sit to stand 24 sec. Patient didn't feel up to doing floor transfer, remains a concern 09/16/21: Pt willing to work on floor transfers but demonstrates a great deal of fear avoidance. 5 Time Sit to Stand today in 30.4 seconds from standard height chair with no use of RUE LTG Duration 12/24/21 Three Impairment weakness left UE and LE s/p CVA Retirement Goal (LTG) Improve functional strength in left LE, as evidenced by ability to move from sit > < stand without use of UE's. 10/31/19: OT starts tomorrow. Good progress with sit to stand, though mostly using right UE and LE 01/02/20: Improving ability to perform, able to increase weight-bearing through left LE with cues, but still some use of right UE 05/26/20: With manual and visual feedback patient able to transfer sit to stand with only CG A. 08/28/20: inconsistent ability to move sit to stand without using UE's, but able to do transfer without physical assistance 11/24/20: Goal Met 01/27/21: more difficulty recently, having to use hands. Goal reactivated. 03/24/21: difficulty motor planning and performing sit to stand today. 06/25/21: patient becomes frustrated with sit to stand transfers as she expresses she feels she has a hard time remembering how to do it, has to use right UE 09/16/21 Pt completes sit to stand x 5 today without use of RUE from std height chair. LTG Duration 12/24/21 Two Impairment balance dysfunction with high risk for falls Retirement Goal (LTG) Improve balance as evidenced by improvement in Tinnetti balance and gait score to low fall risk range to improve safety in the home and community. 10/31/19: remains high risk for falls 01/02/20: some improvement but still in high risk category 05/26/20: Tinetti score in high risk category 08/28/20: moderate risk for falls 12/02/20: remains in moderate risk for falls. 01/27/21: moderate risk for falls 03/24/21: no significant change noted today but again having poor day. 06/25/21: Moderate risk for falls, though no reported falls over past few months. 09/16/21 No change LTG Duration 12/24/21 One Impairment requires armaan-walker for gait, limited to household gait Retirement Goal (LTG) Patient able to ambulate with least restrictive device for functional community distances to improve her functional independence and quality of life. 10/30/19: no progress due to Covid 19. 11/02/19: able to ambulate with quad cane but with very slow speed, household distances, very short community distances . 05/26/20: Now able to ambulate with use of single point cane and use of L4 theraband wrapped around left LE to facilitate left LE internal rotation for improved alignment. Patient unable to don the theraband on her own. Gait is for short distances and very slow at 39 ft in 2 min. 08/28/20: has demonstrated improved gait ability, still using theraband for derotation of LE for more neutral position. Able to consistenly use quad cane and is increasing stride length especially with cues. Now able to ascend and descend 4 stairs with min assist using railing. Mod assist on 6 stairs. 12/02/20: Patient ambulating with SPC, mostly household but some community distances, improved gait alignment with use of theraband for improved alignment. Patient not consistently able to ambulate community distances due to pain in her left LE, and lack of neurological control left LE. Patient may benefit from modification to her current AFO or fabrication of new AFO. 173 ft in 6 minutes 01/27/21: using SPC. Limitations due to left foot, knee and hip pain, right wrist pain 6 min walk test improved to 199.9 feet today 03/24/21: slower 6 min walk test today as above. Has had modification to her AFO with some improvement in her function, but had poor day today. 06/25/21: 180' on 6 min walk test, patient reports left knee feeling wonky, and right UE still painful due to surgery' having stitches out today. Also c/o lack of caregiver recently has limited her walking, no outings. Will try again next session. 09/16/21: Pt completes 6MWT without cane today/ Average gait speed 0.14 m/s. LTG Duration 12/24/21 Assessment Summary Assessment Adelaide was happy with her performance today and showed improved confidence on uneven surface as well as single shyanne. Marching in place to warm up hip flexion and forward translation was helpful for hurdles. Physical Therapy Plan Frequency and Duration Frequency of Treatment 2x/Week Duration of Treatment 3 months Plan of Care Start Date 09/23/21 Plan of Care End Date 12/24/21 Therapeutic Interventions Therapeutic Interventions Aquatic Therapy,Balance Training,Gait Training,Home Exercise Program,Neuromuscular Re-education,Orthotic/ Prosthetic Management,Patient/ Caregiver Education,Self-Care/ Home Management,Taping, Therapeutic Activities, Therapeutic Exercises Modalities Cold Pack/Ice Massage,Hot Packs Next Visit Focus/Plan Next Note Type Treatment Note Next Visit Plan further use of mirror for patient feedback for weight shifting to left with pre-gait activities, continue gait training and functional strengthening. Work on bed scooting to allow for improved bed positioning. Functional squats and reaching using cones and balls.
--- NOTE | 2021-12-01 12:07 | PT.OTN ---
Current Diagnoses Difficulty in walking, not elsewhere classified (12/01/21) Weakness (12/01/21) History of falling (12/01/21) Physical Therapy Treatment Note PT-OP-A Visit Information Start: 05/28/19 08:11 Freq: Status: Active Protocol: Document 12/01/21 09:54 SAK (Rec: 12/01/21 10:32 [facility] [id number]) Out-Patient Physical Therapy Visit Information Visit Information Visit Type Treatment Note Visit Start Time 09:45 Visit Stop Time 10:25 Total Visit Minutes 40 Visit Number 150 Number of FINANCIAL RETIREMENT PLAN SPECIALIST Visits 0 Precautions Precautions Seizure disorder memory dysfunction PT-OP-B Current Condition Start: 05/28/19 08:11 Freq: Status: Active Protocol: Document 06/04/20 11:15 SAK (Rec: 06/05/20 16:34 SAK [id number]) Current Condition History of Current Condition Onset Date 2014 Current Complaints weakness, requires assistance with all mobility and household tasks History of Current Condition Reports that she suffered a stroke in 2014 after surgery for brain aneurysm. CVA caused weakness on the left side of her body, gait and balance difficulty, seizures. PT-OP-C Subjective Start: 05/28/19 08:11 Freq: Status: Active Protocol: Document 12/01/21 09:54 SAK (Rec: 12/01/21 10:32 [facility] [id number]) OP-PT Subjective Patient Comments Patient Comments Wants to do more curb practice . PT-OP-D Balance Start: 05/28/19 08:11 Freq: Status: Active Protocol: Document 05/29/19 14:30 SAK (Rec: 05/30/19 14:24 SAK [id number]) OP-PT Balance Assessment Sitting Balance Static Sitting Balance Ability Good Dynamic Sitting Balance Ability Fair Standing Balance Static Standing Balance Ability Good Dynamic Standing Balance Ability Fair Device Used hemiwalker right Tinetti Balance Assessment Sitting Balance Sitting Balance Steady, safe Arising from Chair Attempts to Arise Able, requires >1 attempt Standing Balance Immediate Standing Balance Steady with support Standing Balance Steady, wide stance Nudged Response Begins to fall Standing with Eyes Closed Unsteady Turning Step Pattern Turning 360 Degrees Discontinuous steps Stability Turning 360 Degrees Unsteady, grabs/staggers Sitting Down Sitting Down Uses arms or unsteady Gait and Step Initiation of Gait Hesitancy, mult. attempts Right Foot Step Length Does not pass stance ft. Right Foot Step Height Does not clear floor Left Foot Step Length Does not pass stance foot Left Foot Step Height Does not clear floor Step Description Step Symmetry Step length not equal Gait Description Path Description Mild/moderate deviation Trunk Description Marked sway or uses aide Walking Stance Heels apart Scoring and Interpretation Tinetti Composite Score (points) 6 Interpretation of Scores High risk for falls(< 19) Herrera Fall Scale Copyright Permission PT-OP-E Functional Tests Start: 05/28/19 08:11 Freq: Status: Active Protocol: Document 05/14/21 10:50 [facility] (Rec: 05/14/21 11:08 [facility] [id number]) Functional Tests 6 Minute Walk Test Distance 169ft Device Used spc, TB wrapping Comments pt has headache today and feels that may have slowed her down. Timed Up and Go (TUG) Score 107 seconds PT-OP-G Mobility & Gait Start: 05/28/19 08:11 Freq: Status: Active Protocol: Document 05/26/20 11:15 SAK (Rec: 05/26/20 17:04 SAK [id number]) OP Mobility Evaluation Bed Mobility Rolling min assist to right CGA to left Supine to and from Sit min assist to right CGA to left Transfers Sit to Stand CGA to min assist without UE use Bed to Chair Transfers requires use of right UE but able to do with SBA Floor Transfers unable PT-OP-H Neuro Start: 05/28/19 08:11 Freq: Status: Active Protocol: Document 05/29/19 14:30 SAK (Rec: 05/30/19 14:24 SAK [id number]) Sensation Evaluation Gross Sensation Gross Sensation Left UE Impaired,Left LE Impaired Sensation Description Paresthesia,Numbness Coordination Evaluation Lower Extremity Tests Left Alternate Heel to Knee; Heel to Toe Test Moderate Impairment Heel on Boles Test Moderate Impairment Foot Tapping Test Moderate Impairment PT-OP-K Range of Motion Start: 05/28/19 08:11 Freq: Status: Active Protocol: Document 05/26/20 11:15 SAK (Rec: 05/26/20 17:04 SAK [id number]) Hip Goniometric Range of Motion Hip jake Hip ROM WFL Yes Comments actively right LE, passively left LE Knee Goniometric Range of Motion Knee jake Knee ROM WFL Yes Ankle and Foot Goniometric Range of Motion Ankle and Foot Left Passive Ankle/Foot ROM WFL No Left Active Ankle/Foot ROM WFL No PT-OP-M Strength Start: 05/28/19 08:11 Freq: Status: Active Protocol: Document 05/26/20 11:15 [facility] (Rec: 05/26/20 17:04 [facility] [id number]) Hip Strength Hip Manual Muscle Testing Left Flexion (L2) 3- Fair- Extension (S1) 2 Poor Abduction 2+ Poor+ External Rotation 3- Fair- Internal Rotation 3+ Fair+ Right Flexion (L2) 4 Good Extension (S1) 4- Good- Abduction 4 Good External Rotation 3+ Fair+ Internal Rotation 4- Good- PT-OP-Q Treatments Start: 05/28/19 08:11 Freq: Status: Active Protocol: Document 12/01/21 09:54 [facility] (Rec: 12/01/21 10:32 [facility] [id number]) Cardio Equipment Recumbent Stepper (Sci-Fit) Duration (Minutes) 10 Resistance 2.2 Seat Position 10 Other cues for left LE alignment, 1. 15 miles Therapeutic Exercises Sitting Exercises HC stretch Side left Resistance AAROM Equipment Used manual Reps/Minutes 30 x 3 Standing Exercises calf stretch Equipment Used REHKA, no AFO Reps/Minutes 2x30 Comments verbal and manual cues, UE support, cues for upright posture Gait Training Gait Activity step-ups Description step-up, down Device Used parallel bars, out of bars with hurrycane Level of Assistance CG to mod assist Surface 4 box Distance/Duration 4x in bars, 2x our of parallel bars Treatment Focus decreased support, weight shift, muscle activation safety Comments first trial out of parallel bars patient became very anxious descending and after lowering left leg shifted weight excessively to right and almost lost balance, needed much cuing for correct weight shift. After review and demonstration able to try again with improved weight shifting and safety. backward Device Used none, no AFO Level of Assistance CGA Surface firm, parallel bars Distance/Duration 5' x 2 Treatment Focus decreased support, gluteal activation Comments mirror for visual feedback. uneven Description uneven Device Used AFO, no cane Level of Assistance CGA-min assist Surface 2 red yoga mats stacked Comments 3.5x laps across mat, cues for LE sequencing, weight shift to left, increased step length right. Better confidence today Step-tap on 4 block Description Alternating step tap to 4 block Device Used paralel bars Level of Assistance CGA, UE support on R Surface Firm Distance/Duration 10 ea Treatment Focus weight shifting, hip flexor fascilitation, targeted foot placement Comments cued for wt shift over stance LE for opp LE advancement. Cued to maintain upright posture, B weight shifting, hamstring and hip flexor fascilitation on L during advancement, and slow step on R w/support at anterior L knee support to prevent buckling w / cues for quad facilitation. parallel bars Description forward, backward Device Used //bar mostly no UE support, occasional light touch support , AFO Surface firm Distance/Duration 3x each direction Treatment Focus neutral alignment, weight- shift over LLE required verbal sequencing Neuro Re-Education Treatment Balance Activities standing balance Comments cues and manual facilitation for soft L knee, increased weight-shift left, minimal UE support on //, PT-OP-R Modalities Start: 05/28/19 08:11 Freq: Status: Active Protocol: Document 12/29/20 10:30 SP (Rec: 12/29/20 11:44 SP [id number]) Electric Stimulation Electric Stimulation Functional Electric Stimulation Body Location L hand/ forearm extensors Duration (Minutes) 2 Patient Position Sitting Comments NMES- education on placement of pad for muscular feedback extension based- check self placement understanding. PT-OP-T Assessment and Plan Start: 05/28/19 08:11 Freq: Status: Active Protocol: Document 12/01/21 09:54 SAK (Rec: 12/01/21 10:32 SAK [id number]) Physical Therapy Assessment Goals Five Impairment gait speed not adequate for safe community ambulation Mcfp Goal (LTG) Patient able to ambulate 300' in 6 min. TUG score no greater than 30 sec 06/02/20: 134' 08/28/20: 144', likely not as high due to new shoes and wearing old AFO because fits better in new shoes. Requires level 4 theraband for derotation of left LE into more neutral position for gait . 09/19/20: 146 ft 6 min w/ QC and Tb wrapping to LLE. 11/13/20: 153 ft CG w/ SPC 2>3 pt gait w/out metronome w/ reported L glut/ lateral leg burn pain, 2 step brief stand breaks. 11/24/20: progressing 173.7 ft using SPC, predominently 2 pt gait. TUG score 59 sec using SP 01/27/21: TUG 55 sec. , 6 min walk test 199.9 ft with SPC 03/19/21: 6 min walk test 165' , TUG 1:20. Continue with use of theraband for derotation of excess ER left LE with gait . 04/16/21: 6MWT 190 ft w/ SPC and TB wrapping assist hip IR. 04/23/21: 6MWT 181 ftw/ SPC and TB wrapping 06/25/21: 6MWT 180 ft with SPC and TB wrapping. TU sec 09/16/21 - average gait speed 0 .14 m/s on 6MWT which pt completed with no AD (AFO only ). LTG Duration 12/24/21 Four Impairment requires assistance with bed mobility and transfers Short Term Goal (STG) Patient will be able to perform all bed mobility independently to improve her functional independence. 10/31/19: good goal progress 06/02/20:inconsistent, but min assist most times 11/24/20: Met goal: pt is independent in supine>sit. STG Duration goal met ( independent 11/24/20 ) Outside Sales Inspector Goal (LTG) Patient will be able to perform a floor transfer with SB to min assist. 5x sit to stand score in no more than 15 sec as measure of functional strength for transfers 10/31/19: max assist today 01/02/20: has not been willing to try since 10/31/19 06/02/21: does not feel strong enough to try yet. 06/25/21: 08/28/20: max assistance required 12/02/20: remains at max assist , not recently willing to attempt floor transfer. 5x sit to stand score 26 seconds 01/27/21: not tried recently. 03/24/21: 5x sit to stand 25 sec. No floor transfer today 06/25/21: 5x sit to stand 24 sec. Patient didn't feel up to doing floor transfer, remains a concern 09/16/21: Pt willing to work on floor transfers but demonstrates a great deal of fear avoidance. 5 Time Sit to Stand today in 30.4 seconds from standard height chair with no use of RUE LTG Duration 12/24/21 Three Impairment weakness left UE and LE s/p CVA Outside Sales Inspector Goal (LTG) Improve functional strength in left LE, as evidenced by ability to move from sit > < stand without use of UE's. 10/31/19: OT starts tomorrow. Good progress with sit to stand, though mostly using right UE and LE 01/02/20: Improving ability to perform, able to increase weight-bearing through left LE with cues, but still some use of right UE 05/26/20: With manual and visual feedback patient able to transfer sit to stand with only CG A. 08/28/20: inconsistent ability to move sit to stand without using UE's, but able to do transfer without physical assistance 11/24/20: Goal Met 01/27/21: more difficulty recently, having to use hands. Goal reactivated. 03/24/21: difficulty motor planning and performing sit to stand today. 06/25/21: patient becomes frustrated with sit to stand transfers as she expresses she feels she has a hard time remembering how to do it, has to use right UE 09/16/21 Pt completes sit to stand x 5 today without use of RUE from std height chair. LTG Duration 12/24/21 Two Impairment balance dysfunction with high risk for falls Mcfp Goal (LTG) Improve balance as evidenced by improvement in Tinnetti balance and gait score to low fall risk range to improve safety in the home and community. 10/31/19: remains high risk for falls 01/02/20: some improvement but still in high risk category 05/26/20: Tinetti score in high risk category 08/28/20: moderate risk for falls 12/02/20: remains in moderate risk for falls. 01/27/21: moderate risk for falls 03/24/21: no significant change noted today but again having poor day. 06/25/21: Moderate risk for falls, though no reported falls over past few months. 09/16/21 No change LTG Duration 12/24/21 One Impairment requires armaan-walker for gait, limited to household gait Outside Sales Inspector Goal (LTG) Patient able to ambulate with least restrictive device for functional community distances to improve her functional independence and quality of life. 10/30/19: no progress due to Covid 19. 11/02/19: able to ambulate with quad cane but with very slow speed, household distances, very short community distances . 05/26/20: Now able to ambulate with use of single point cane and use of L4 theraband wrapped around left LE to facilitate left LE internal rotation for improved alignment. Patient unable to don the theraband on her own. Gait is for short distances and very slow at 39 ft in 2 min. 08/28/20: has demonstrated improved gait ability, still using theraband for derotation of LE for more neutral position. Able to consistenly use quad cane and is increasing stride length especially with cues. Now able to ascend and descend 4 stairs with min assist using railing. Mod assist on 6 stairs. 12/02/20: Patient ambulating with SPC, mostly household but some community distances, improved gait alignment with use of theraband for improved alignment. Patient not consistently able to ambulate community distances due to pain in her left LE, and lack of neurological control left LE. Patient may benefit from modification to her current AFO or fabrication of new AFO. 173 ft in 6 minutes 01/27/21: using SPC. Limitations due to left foot, knee and hip pain, right wrist pain 6 min walk test improved to 199.9 feet today 03/24/21: slower 6 min walk test today as above. Has had modification to her AFO with some improvement in her function, but had poor day today. 06/25/21: 180' on 6 min walk test, patient reports left knee feeling wonky, and right UE still painful due to surgery' having stitches out today. Also c/o lack of caregiver recently has limited her walking, no outings. Will try again next session. 09/16/21: Pt completes 6MWT without cane today/ Average gait speed 0.14 m/s. LTG Duration 12/24/21 Assessment Summary Assessment Adelaide showing improved confidence in her gait on firm , level surface and came to PT wanting to work on her ability to ascend and descend a curb; didn't want to practice outside but requested in clinic for controlled environment Improved performance in parallel bars, and was willing to try out of bars as well; first trial descending out of bars was very difficulty with incorrect weight shift to right and anxiety response. AFter further review and instruction /demo by PT, patient able to complete another trial with improved weight shift and safety. Physical Therapy Plan Frequency and Duration Frequency of Treatment 2x/Week Duration of Treatment 3 months Plan of Care Start Date 09/23/21 Plan of Care End Date 12/24/21 Therapeutic Interventions Therapeutic Interventions Aquatic Therapy,Balance Training,Gait Training,Home Exercise Program,Neuromuscular Re-education,Orthotic/ Prosthetic Management,Patient/ Caregiver Education,Self-Care/ Home Management,Taping, Therapeutic Activities, Therapeutic Exercises Modalities Cold Pack/Ice Massage,Hot Packs Next Visit Focus/Plan Next Note Type Treatment Note Next Visit Plan curb practice outdoors on varying heights, continue use of mirror with pre-gait activities. Bed scooting, functional squats and reaching using cones and balls.
--- NOTE | 2021-12-03 09:49 | PT-OP ANOTE ---
cancelled due to not sleeping well due to heat.
--- NOTE | 2021-12-08 11:28 | PT.OTN ---
Current Diagnoses Difficulty in walking, not elsewhere classified (12/08/21) Weakness (12/08/21) History of falling (12/08/21) Physical Therapy Treatment Note PT-OP-A Visit Information Start: 05/28/19 08:11 Freq: Status: Active Protocol: Document 12/08/21 10:30 SAK (Rec: 12/08/21 11:15 [facility] [id number]) Out-Patient Physical Therapy Visit Information Visit Information Visit Type Treatment Note Visit Start Time 10:30 Visit Stop Time 11:15 Total Visit Minutes 45 Visit Number 151 Precautions Precautions Seizure disorder memory dysfunction PT-OP-B Current Condition Start: 05/28/19 08:11 Freq: Status: Active Protocol: Document 06/04/20 11:15 SAK (Rec: 06/05/20 16:34 [facility] [id number]) Current Condition History of Current Condition Onset Date 2014 Current Complaints weakness, requires assistance with all mobility and household tasks History of Current Condition Reports that she suffered a stroke in 2014 after surgery for brain aneurysm. CVA caused weakness on the left side of her body, gait and balance difficulty, seizures. PT-OP-C Subjective Start: 05/28/19 08:11 Freq: Status: Active Protocol: Document 12/08/21 10:30 SAK (Rec: 12/08/21 11:15 [facility] [id number]) OP-PT Subjective Patient Comments Patient Comments Pt reports doing a lot of walking lately. Left calf and ITB feeling very tight currently. I feel like I'm ready to progress. PT-OP-D Balance Start: 05/28/19 08:11 Freq: Status: Active Protocol: Document 05/29/19 14:30 SAK (Rec: 05/30/19 14:24 [facility] [id number]) OP-PT Balance Assessment Sitting Balance Static Sitting Balance Ability Good Dynamic Sitting Balance Ability Fair Standing Balance Static Standing Balance Ability Good Dynamic Standing Balance Ability Fair Device Used hemiwalker right Tinetti Balance Assessment Sitting Balance Sitting Balance Steady, safe Arising from Chair Attempts to Arise Able, requires >1 attempt Standing Balance Immediate Standing Balance Steady with support Standing Balance Steady, wide stance Nudged Response Begins to fall Standing with Eyes Closed Unsteady Turning Step Pattern Turning 360 Degrees Discontinuous steps Stability Turning 360 Degrees Unsteady, grabs/staggers Sitting Down Sitting Down Uses arms or unsteady Gait and Step Initiation of Gait Hesitancy, mult. attempts Right Foot Step Length Does not pass stance ft. Right Foot Step Height Does not clear floor Left Foot Step Length Does not pass stance foot Left Foot Step Height Does not clear floor Step Description Step Symmetry Step length not equal Gait Description Path Description Mild/moderate deviation Trunk Description Marked sway or uses aide Walking Stance Heels apart Scoring and Interpretation Tinetti Composite Score (points) 6 Interpretation of Scores High risk for falls(< 19) Herrera Fall Scale Copyright Permission PT-OP-E Functional Tests Start: 05/28/19 08:11 Freq: Status: Active Protocol: Document 05/14/21 10:50 [facility] (Rec: 05/14/21 11:08 [facility] [id number]) Functional Tests 6 Minute Walk Test Distance 169ft Device Used spc, TB wrapping Comments pt has headache today and feels that may have slowed her down. Timed Up and Go (TUG) Score 107 seconds PT-OP-G Mobility & Gait Start: 05/28/19 08:11 Freq: Status: Active Protocol: Document 05/26/20 11:15 SAK (Rec: 05/26/20 17:04 [facility] [id number]) OP Mobility Evaluation Bed Mobility Rolling min assist to right CGA to left Supine to and from Sit min assist to right CGA to left Transfers Sit to Stand CGA to min assist without UE use Bed to Chair Transfers requires use of right UE but able to do with SBA Floor Transfers unable PT-OP-H Neuro Start: 05/28/19 08:11 Freq: Status: Active Protocol: Document 05/29/19 14:30 SAK (Rec: 05/30/19 14:24 [facility] [id number]) Sensation Evaluation Gross Sensation Gross Sensation Left UE Impaired,Left LE Impaired Sensation Description Paresthesia,Numbness Coordination Evaluation Lower Extremity Tests Left Alternate Heel to Knee; Heel to Toe Test Moderate Impairment Heel on Boles Test Moderate Impairment Foot Tapping Test Moderate Impairment PT-OP-K Range of Motion Start: 05/28/19 08:11 Freq: Status: Active Protocol: Document 05/26/20 11:15 SAK (Rec: 05/26/20 17:04 [facility] [id number]) Hip Goniometric Range of Motion Hip jake Hip ROM WFL Yes Comments actively right LE, passively left LE Knee Goniometric Range of Motion Knee jake Knee ROM WFL Yes Ankle and Foot Goniometric Range of Motion Ankle and Foot Left Passive Ankle/Foot ROM WFL No Left Active Ankle/Foot ROM WFL No PT-OP-M Strength Start: 05/28/19 08:11 Freq: Status: Active Protocol: Document 05/26/20 11:15 [facility] (Rec: 05/26/20 17:04 [facility] [id number]) Hip Strength Hip Manual Muscle Testing Left Flexion (L2) 3- Fair- Extension (S1) 2 Poor Abduction 2+ Poor+ External Rotation 3- Fair- Internal Rotation 3+ Fair+ Right Flexion (L2) 4 Good Extension (S1) 4- Good- Abduction 4 Good External Rotation 3+ Fair+ Internal Rotation 4- Good- PT-OP-Q Treatments Start: 05/28/19 08:11 Freq: Status: Active Protocol: Document 12/08/21 10:30 [facility] (Rec: 12/08/21 11:15 [facility] [id number]) Gym Equipment Shuttle Balance green Details balance, WBOS Reps/Duration 5 min Comments red hooks; PT stabilizing platform w/LLE, min assist, patient mod lean to right with UE onto rail, left LE hyperextension with getting on Therapeutic Exercises Sitting Exercises seated crunches Reps/Minutes 10x HC stretch Side left Resistance AAROM Equipment Used manual Reps/Minutes 30 x 3 Standing Exercises calf stretch Equipment Used REKHA, no AFO Reps/Minutes 2x30 Comments verbal and manual cues, UE support, cues for upright posture squats Reps/Minutes 15x Comments at parallel bars; wt on LLE Gait Training Gait Activity step-ups Description step-up, down Device Used out of bars with hurrycane Level of Assistance CG to min assist Surface 4 box Distance/Duration 1x out of parallel bars Treatment Focus decreased support, weight shift, muscle activation safety Comments Pt requested mirror for observation of her technique, more anxious today uneven Description uneven Device Used AFO, no cane Level of Assistance CGA-min assist Surface 1-2 red yoga mats stacked Comments 1 lap today. Good control, no LOB 6 min walk test Description AFO only Level of Assistance SBA- CGA Surface firm Distance/Duration 169'/6 min Comments Improved stability overall. Pt reaches for wall 5 times during six minutes but does not lean on it. No cane. Average gait speed 0.14 m/s. stairs Description 4 stairs ascend 6 descend Device Used R railing AFO, heel lift Level of Assistance CG Distance/Duration 1 set of 4 Treatment Focus alternating LE pattern facilitation Comments Verbal and manual cues to increase weight shift to left LE, unlock left knee, step-to pattern, cues toes pointed forward, dec right UE use Neuro Re-Education Treatment Balance Activities standing balance Comments cues and manual facilitation for soft L knee, increased weight-shift left, minimal UE support on //, PT-OP-R Modalities Start: 05/28/19 08:11 Freq: Status: Active Protocol: Document 12/29/20 10:30 SP (Rec: 12/29/20 11:44 [facility] [id number]) Electric Stimulation Electric Stimulation Functional Electric Stimulation Body Location L hand/ forearm extensors Duration (Minutes) 2 Patient Position Sitting Comments NMES- education on placement of pad for muscular feedback extension based- check self placement understanding. PT-OP-T Assessment and Plan Start: 05/28/19 08:11 Freq: Status: Active Protocol: Document 12/08/21 10:30 SAK (Rec: 12/08/21 11:15 [facility] [id number]) Physical Therapy Assessment Goals Five Impairment gait speed not adequate for safe community ambulation Registered Associate Goal (LTG) Patient able to ambulate 300' in 6 min. TUG score no greater than 30 sec 06/02/20: 134' 08/28/20: 144', likely not as high due to new shoes and wearing old AFO because fits better in new shoes. Requires level 4 theraband for derotation of left LE into more neutral position for gait . 09/19/20: 146 ft 6 min w/ QC and Tb wrapping to LLE. 11/13/20: 153 ft CG w/ SPC 2>3 pt gait w/out metronome w/ reported L glut/ lateral leg burn pain, 2 step brief stand breaks. 11/24/20: progressing 173.7 ft using SPC, predominently 2 pt gait. TUG score 59 sec using SP 01/27/21: TUG 55 sec. , 6 min walk test 199.9 ft with SPC 03/19/21: 6 min walk test 165' , TUG 1:20. Continue with use of theraband for derotation of excess ER left LE with gait . 04/16/21: 6MWT 190 ft w/ SPC and TB wrapping assist hip IR. 04/23/21: 6MWT 181 ftw/ SPC and TB wrapping 06/25/21: 6MWT 180 ft with SPC and TB wrapping. TU sec 09/16/21 - average gait speed 0 .14 m/s on 6MWT which pt completed with no AD (AFO only ). LTG Duration 12/24/21 Four Impairment requires assistance with bed mobility and transfers Short Term Goal (STG) Patient will be able to perform all bed mobility independently to improve her functional independence. 10/31/19: good goal progress 06/02/20:inconsistent, but min assist most times 11/24/20: Met goal: pt is independent in supine>sit. STG Duration goal met ( independent 11/24/20 ) Registered Associate Goal (LTG) Patient will be able to perform a floor transfer with SB to min assist. 5x sit to stand score in no more than 15 sec as measure of functional strength for transfers 10/31/19: max assist today 01/02/20: has not been willing to try since 10/31/19 06/02/21: does not feel strong enough to try yet. 06/25/21: 08/28/20: max assistance required 12/02/20: remains at max assist , not recently willing to attempt floor transfer. 5x sit to stand score 26 seconds 01/27/21: not tried recently. 03/24/21: 5x sit to stand 25 sec. No floor transfer today 06/25/21: 5x sit to stand 24 sec. Patient didn't feel up to doing floor transfer, remains a concern 09/16/21: Pt willing to work on floor transfers but demonstrates a great deal of fear avoidance. 5 Time Sit to Stand today in 30.4 seconds from standard height chair with no use of RUE LTG Duration 12/24/21 Three Impairment weakness left UE and LE s/p CVA Fdc Goal (LTG) Improve functional strength in left LE, as evidenced by ability to move from sit > < stand without use of UE's. 10/31/19: OT starts tomorrow. Good progress with sit to stand, though mostly using right UE and LE 01/02/20: Improving ability to perform, able to increase weight-bearing through left LE with cues, but still some use of right UE 05/26/20: With manual and visual feedback patient able to transfer sit to stand with only CG A. 08/28/20: inconsistent ability to move sit to stand without using UE's, but able to do transfer without physical assistance 11/24/20: Goal Met 01/27/21: more difficulty recently, having to use hands. Goal reactivated. 03/24/21: difficulty motor planning and performing sit to stand today. 06/25/21: patient becomes frustrated with sit to stand transfers as she expresses she feels she has a hard time remembering how to do it, has to use right UE 09/16/21 Pt completes sit to stand x 5 today without use of RUE from std height chair. LTG Duration 12/24/21 Two Impairment balance dysfunction with high risk for falls Fdc Goal (LTG) Improve balance as evidenced by improvement in Tinnetti balance and gait score to low fall risk range to improve safety in the home and community. 10/31/19: remains high risk for falls 01/02/20: some improvement but still in high risk category 05/26/20: Tinetti score in high risk category 08/28/20: moderate risk for falls 12/02/20: remains in moderate risk for falls. 01/27/21: moderate risk for falls 03/24/21: no significant change noted today but again having poor day. 06/25/21: Moderate risk for falls, though no reported falls over past few months. 09/16/21 No change LTG Duration 12/24/21 One Impairment requires armaan-walker for gait, limited to household gait Fdc Goal (LTG) Patient able to ambulate with least restrictive device for functional community distances to improve her functional independence and quality of life. 10/30/19: no progress due to Covid 19. 11/02/19: able to ambulate with quad cane but with very slow speed, household distances, very short community distances . 05/26/20: Now able to ambulate with use of single point cane and use of L4 theraband wrapped around left LE to facilitate left LE internal rotation for improved alignment. Patient unable to don the theraband on her own. Gait is for short distances and very slow at 39 ft in 2 min. 08/28/20: has demonstrated improved gait ability, still using theraband for derotation of LE for more neutral position. Able to consistenly use quad cane and is increasing stride length especially with cues. Now able to ascend and descend 4 stairs with min assist using railing. Mod assist on 6 stairs. 12/02/20: Patient ambulating with SPC, mostly household but some community distances, improved gait alignment with use of theraband for improved alignment. Patient not consistently able to ambulate community distances due to pain in her left LE, and lack of neurological control left LE. Patient may benefit from modification to her current AFO or fabrication of new AFO. 173 ft in 6 minutes 01/27/21: using SPC. Limitations due to left foot, knee and hip pain, right wrist pain 6 min walk test improved to 199.9 feet today 03/24/21: slower 6 min walk test today as above. Has had modification to her AFO with some improvement in her function, but had poor day today. 06/25/21: 180' on 6 min walk test, patient reports left knee feeling wonky, and right UE still painful due to surgery' having stitches out today. Also c/o lack of caregiver recently has limited her walking, no outings. Will try again next session. 09/16/21: Pt completes 6MWT without cane today/ Average gait speed 0.14 m/s. LTG Duration 12/24/21 Assessment Summary Assessment Pt improved 6 minute walk test by 4 feet. Step up/down required lots of cueing but she performed well without LOB . Patient in good spirits Physical Therapy Plan Frequency and Duration Frequency of Treatment 2x/Week Duration of Treatment 3 months Plan of Care Start Date 09/23/21 Plan of Care End Date 12/24/21 Therapeutic Interventions Therapeutic Interventions Aquatic Therapy,Balance Training,Gait Training,Home Exercise Program,Neuromuscular Re-education,Orthotic/ Prosthetic Management,Patient/ Caregiver Education,Self-Care/ Home Management,Taping, Therapeutic Activities, Therapeutic Exercises Modalities Cold Pack/Ice Massage,Hot Packs Next Visit Focus/Plan Next Note Type Treatment Note Next Visit Plan curb practice outdoors on varying heights, continue use of mirror with pre-gait activities. Bed scooting, functional squats and reaching using cones and balls.
--- NOTE | 2021-12-14 16:40 | PT.OTN ---
Current Diagnoses Difficulty in walking, not elsewhere classified (12/14/21) Weakness (12/14/21) History of falling (12/14/21) Physical Therapy Treatment Note PT-OP-A Visit Information Start: 05/28/19 08:11 Freq: Status: Active Protocol: Document 12/14/21 11:18 SAK (Rec: 12/14/21 11:20 [facility] [id number]) Out-Patient Physical Therapy Visit Information Visit Information Visit Type Treatment Note Visit Start Time 10:35 Visit Stop Time 11:15 Total Visit Minutes 40 Visit Number 152 Precautions Precautions Seizure disorder memory dysfunction PT-OP-B Current Condition Start: 05/28/19 08:11 Freq: Status: Active Protocol: Document 06/04/20 11:15 SAK (Rec: 06/05/20 16:34 [facility] [id number]) Current Condition History of Current Condition Onset Date 2014 Current Complaints weakness, requires assistance with all mobility and household tasks History of Current Condition Reports that she suffered a stroke in 2014 after surgery for brain aneurysm. CVA caused weakness on the left side of her body, gait and balance difficulty, seizures. PT-OP-C Subjective Start: 05/28/19 08:11 Freq: Status: Active Protocol: Document 12/14/21 11:18 SAK (Rec: 12/14/21 11:20 [facility] [id number]) OP-PT Subjective Patient Comments Patient Comments Leg muscles feel very tight but overall fairly good. Willing to go outside to practice curbs, also receptive to gait training on stairs. PT-OP-D Balance Start: 05/28/19 08:11 Freq: Status: Active Protocol: Document 05/29/19 14:30 SAK (Rec: 05/30/19 14:24 [facility] [id number]) OP-PT Balance Assessment Sitting Balance Static Sitting Balance Ability Good Dynamic Sitting Balance Ability Fair Standing Balance Static Standing Balance Ability Good Dynamic Standing Balance Ability Fair Device Used hemiwalker right Tinetti Balance Assessment Sitting Balance Sitting Balance Steady, safe Arising from Chair Attempts to Arise Able, requires >1 attempt Standing Balance Immediate Standing Balance Steady with support Standing Balance Steady, wide stance Nudged Response Begins to fall Standing with Eyes Closed Unsteady Turning Step Pattern Turning 360 Degrees Discontinuous steps Stability Turning 360 Degrees Unsteady, grabs/staggers Sitting Down Sitting Down Uses arms or unsteady Gait and Step Initiation of Gait Hesitancy, mult. attempts Right Foot Step Length Does not pass stance ft. Right Foot Step Height Does not clear floor Left Foot Step Length Does not pass stance foot Left Foot Step Height Does not clear floor Step Description Step Symmetry Step length not equal Gait Description Path Description Mild/moderate deviation Trunk Description Marked sway or uses aide Walking Stance Heels apart Scoring and Interpretation Tinetti Composite Score (points) 6 Interpretation of Scores High risk for falls(< 19) Herrera Fall Scale Copyright Permission PT-OP-E Functional Tests Start: 05/28/19 08:11 Freq: Status: Active Protocol: Document 05/14/21 10:50 [facility] (Rec: 05/14/21 11:08 [facility] [id number]) Functional Tests 6 Minute Walk Test Distance 169ft Device Used spc, TB wrapping Comments pt has headache today and feels that may have slowed her down. Timed Up and Go (TUG) Score 107 seconds PT-OP-G Mobility & Gait Start: 05/28/19 08:11 Freq: Status: Active Protocol: Document 05/26/20 11:15 SAK (Rec: 05/26/20 17:04 [facility] [id number]) OP Mobility Evaluation Bed Mobility Rolling min assist to right CGA to left Supine to and from Sit min assist to right CGA to left Transfers Sit to Stand CGA to min assist without UE use Bed to Chair Transfers requires use of right UE but able to do with SBA Floor Transfers unable PT-OP-H Neuro Start: 05/28/19 08:11 Freq: Status: Active Protocol: Document 05/29/19 14:30 SAK (Rec: 05/30/19 14:24 [facility] [id number]) Sensation Evaluation Gross Sensation Gross Sensation Left UE Impaired,Left LE Impaired Sensation Description Paresthesia,Numbness Coordination Evaluation Lower Extremity Tests Left Alternate Heel to Knee; Heel to Toe Test Moderate Impairment Heel on Boles Test Moderate Impairment Foot Tapping Test Moderate Impairment PT-OP-K Range of Motion Start: 05/28/19 08:11 Freq: Status: Active Protocol: Document 05/26/20 11:15 SAK (Rec: 05/26/20 17:04 [facility] [id number]) Hip Goniometric Range of Motion Hip jake Hip ROM WFL Yes Comments actively right LE, passively left LE Knee Goniometric Range of Motion Knee jake Knee ROM WFL Yes Ankle and Foot Goniometric Range of Motion Ankle and Foot Left Passive Ankle/Foot ROM WFL No Left Active Ankle/Foot ROM WFL No PT-OP-M Strength Start: 05/28/19 08:11 Freq: Status: Active Protocol: Document 05/26/20 11:15 SAK (Rec: 05/26/20 17:04 SAK [id number]) Hip Strength Hip Manual Muscle Testing Left Flexion (L2) 3- Fair- Extension (S1) 2 Poor Abduction 2+ Poor+ External Rotation 3- Fair- Internal Rotation 3+ Fair+ Right Flexion (L2) 4 Good Extension (S1) 4- Good- Abduction 4 Good External Rotation 3+ Fair+ Internal Rotation 4- Good- PT-OP-Q Treatments Start: 05/28/19 08:11 Freq: Status: Active Protocol: Document 12/14/21 11:18 SAK (Rec: 12/14/21 16:40 SAK [id number]) Therapeutic Exercises Sitting Exercises IT band stretch Side left Reps/Minutes 2min Comments with pin and stretch HC stretch Side left Resistance AAROM Equipment Used manual Reps/Minutes 30 x 3 Gait Training Gait Activity outdoor Device Used single point cane Level of Assistance CGA, cues Surface pavement, short curb Distance/Duration 5x Treatment Focus increasing height difference, safety Comments started even, progressed to 4 difference stairs Description 4 stairs Device Used R railing AFO, heel lift Level of Assistance CG Distance/Duration 2 sets of 10 Treatment Focus weight shift, decreased UE support Comments step-to pattern PT-OP-R Modalities Start: 05/28/19 08:11 Freq: Status: Active Protocol: Document 12/29/20 10:30 SP (Rec: 12/29/20 11:44 SP [id number]) Electric Stimulation Electric Stimulation Functional Electric Stimulation Body Location L hand/ forearm extensors Duration (Minutes) 2 Patient Position Sitting Comments NMES- education on placement of pad for muscular feedback extension based- check self placement understanding. PT-OP-T Assessment and Plan Start: 05/28/19 08:11 Freq: Status: Active Protocol: Document 12/14/21 11:18 SAK (Rec: 12/14/21 11:20 SAK [id number]) Physical Therapy Assessment Goals Five Impairment gait speed not adequate for safe community ambulation Reflesher Goal (LTG) Patient able to ambulate 300' in 6 min. TUG score no greater than 30 sec 06/02/20: 134' 08/28/20: 144', likely not as high due to new shoes and wearing old AFO because fits better in new shoes. Requires level 4 theraband for derotation of left LE into more neutral position for gait . 09/19/20: 146 ft 6 min w/ QC and Tb wrapping to LLE. 11/13/20: 153 ft CG w/ SPC 2>3 pt gait w/out metronome w/ reported L glut/ lateral leg burn pain, 2 step brief stand breaks. 11/24/20: progressing 173.7 ft using SPC, predominently 2 pt gait. TUG score 59 sec using SP 01/27/21: TUG 55 sec. , 6 min walk test 199.9 ft with SPC 03/19/21: 6 min walk test 165' , TUG 1:20. Continue with use of theraband for derotation of excess ER left LE with gait . 04/16/21: 6MWT 190 ft w/ SPC and TB wrapping assist hip IR. 04/23/21: 6MWT 181 ftw/ SPC and TB wrapping 06/25/21: 6MWT 180 ft with SPC and TB wrapping. TU sec 09/16/21 - average gait speed 0 .14 m/s on 6MWT which pt completed with no AD (AFO only ). LTG Duration 12/24/21 Four Impairment requires assistance with bed mobility and transfers Short Term Goal (STG) Patient will be able to perform all bed mobility independently to improve her functional independence. 10/31/19: good goal progress 06/02/20:inconsistent, but min assist most times 11/24/20: Met goal: pt is independent in supine>sit. STG Duration goal met ( independent 11/24/20 ) Snf Goal (LTG) Patient will be able to perform a floor transfer with SB to min assist. 5x sit to stand score in no more than 15 sec as measure of functional strength for transfers 10/31/19: max assist today 01/02/20: has not been willing to try since 10/31/19 06/02/21: does not feel strong enough to try yet. 06/25/21: 08/28/20: max assistance required 12/02/20: remains at max assist , not recently willing to attempt floor transfer. 5x sit to stand score 26 seconds 01/27/21: not tried recently. 03/24/21: 5x sit to stand 25 sec. No floor transfer today 06/25/21: 5x sit to stand 24 sec. Patient didn't feel up to doing floor transfer, remains a concern 09/16/21: Pt willing to work on floor transfers but demonstrates a great deal of fear avoidance. 5 Time Sit to Stand today in 30.4 seconds from standard height chair with no use of RUE LTG Duration 12/24/21 Three Impairment weakness left UE and LE s/p CVA Snf Goal (LTG) Improve functional strength in left LE, as evidenced by ability to move from sit > < stand without use of UE's. 10/31/19: OT starts tomorrow. Good progress with sit to stand, though mostly using right UE and LE 01/02/20: Improving ability to perform, able to increase weight-bearing through left LE with cues, but still some use of right UE 05/26/20: With manual and visual feedback patient able to transfer sit to stand with only CG A. 08/28/20: inconsistent ability to move sit to stand without using UE's, but able to do transfer without physical assistance 11/24/20: Goal Met 01/27/21: more difficulty recently, having to use hands. Goal reactivated. 03/24/21: difficulty motor planning and performing sit to stand today. 06/25/21: patient becomes frustrated with sit to stand transfers as she expresses she feels she has a hard time remembering how to do it, has to use right UE 09/16/21 Pt completes sit to stand x 5 today without use of RUE from std height chair. LTG Duration 12/24/21 Two Impairment balance dysfunction with high risk for falls Snf Goal (LTG) Improve balance as evidenced by improvement in Tinnetti balance and gait score to low fall risk range to improve safety in the home and community. 10/31/19: remains high risk for falls 01/02/20: some improvement but still in high risk category 05/26/20: Tinetti score in high risk category 08/28/20: moderate risk for falls 12/02/20: remains in moderate risk for falls. 01/27/21: moderate risk for falls 03/24/21: no significant change noted today but again having poor day. 2/17/22: Moderate risk for falls, though no reported falls over past few months. 09/16/21 No change LTG Duration 12/24/21 One Impairment requires armaan-walker for gait, limited to household gait Reflesher Goal (LTG) Patient able to ambulate with least restrictive device for functional community distances to improve her functional independence and quality of life. 10/30/19: no progress due to Covid 19. 11/02/19: able to ambulate with quad cane but with very slow speed, household distances, very short community distances . 05/26/20: Now able to ambulate with use of single point cane and use of L4 theraband wrapped around left LE to facilitate left LE internal rotation for improved alignment. Patient unable to don the theraband on her own. Gait is for short distances and very slow at 39 ft in 2 min. 08/28/20: has demonstrated improved gait ability, still using theraband for derotation of LE for more neutral position. Able to consistenly use quad cane and is increasing stride length especially with cues. Now able to ascend and descend 4 stairs with min assist using railing. Mod assist on 6 stairs. 12/02/20: Patient ambulating with SPC, mostly household but some community distances, improved gait alignment with use of theraband for improved alignment. Patient not consistently able to ambulate community distances due to pain in her left LE, and lack of neurological control left LE. Patient may benefit from modification to her current AFO or fabrication of new AFO. 173 ft in 6 minutes 01/27/21: using SPC. Limitations due to left foot, knee and hip pain, right wrist pain 6 min walk test improved to 199.9 feet today 03/24/21: slower 6 min walk test today as above. Has had modification to her AFO with some improvement in her function, but had poor day today. 06/25/21: 180' on 6 min walk test, patient reports left knee feeling wonky, and right UE still painful due to surgery' having stitches out today. Also c/o lack of caregiver recently has limited her walking, no outings. Will try again next session. 09/16/21: Pt completes 6MWT without cane today/ Average gait speed 0.14 m/s. LTG Duration 12/24/21 Progress Towards Goals Progress Towards Goals Progressing Toward Goals Assessment Summary Assessment Improved gait on stairs with less UE support using step-to pattern. Worked on progressively increasing height of sidewalk to curb, max 4. Spent majority of her time on her feet, and when not on uneven ground, ambulating without assistive devicef 95% of time. Good progress. Physical Therapy Plan Frequency and Duration Frequency of Treatment 2x/Week Duration of Treatment 3 months Plan of Care Start Date 09/23/21 Plan of Care End Date 12/24/21 Therapeutic Interventions Therapeutic Interventions Aquatic Therapy,Balance Training,Gait Training,Home Exercise Program,Neuromuscular Re-education,Orthotic/ Prosthetic Management,Patient/ Caregiver Education,Self-Care/ Home Management,Taping, Therapeutic Activities, Therapeutic Exercises Modalities Cold Pack/Ice Massage,Hot Packs Next Visit Focus/Plan Next Note Type Treatment Note Next Visit Plan Continue gait training on uneven surfaces, functional strengthening and safety, balance retraining.
--- NOTE | 2021-12-16 11:24 | PT.OTN ---
Current Diagnoses Difficulty in walking, not elsewhere classified (12/16/21) Weakness (12/16/21) History of falling (12/16/21) Physical Therapy Treatment Note PT-OP-A Visit Information Start: 05/28/19 08:11 Freq: Status: Active Protocol: Document 12/16/21 10:32 SAK (Rec: 12/16/21 11:24 [facility] [id number]) Out-Patient Physical Therapy Visit Information Visit Information Visit Type Treatment Note Visit Start Time 10:33 Visit Stop Time 11:16 Total Visit Minutes 43 Visit Number 153 Precautions Precautions Seizure disorder memory dysfunction PT-OP-B Current Condition Start: 05/28/19 08:11 Freq: Status: Active Protocol: Document 06/04/20 11:15 SAK (Rec: 06/05/20 16:34 SAK [id number]) Current Condition History of Current Condition Onset Date 2014 Current Complaints weakness, requires assistance with all mobility and household tasks History of Current Condition Reports that she suffered a stroke in 2014 after surgery for brain aneurysm. CVA caused weakness on the left side of her body, gait and balance difficulty, seizures. PT-OP-C Subjective Start: 05/28/19 08:11 Freq: Status: Active Protocol: Document 12/16/21 10:32 SAK (Rec: 12/16/21 11:24 [facility] [id number]) OP-PT Subjective Patient Comments Patient Comments Leg muscles feel very tight but overall fairly good. Willing to go outside to practice curbs, also receptive to gait training on stairs. PT-OP-D Balance Start: 05/28/19 08:11 Freq: Status: Active Protocol: Document 05/29/19 14:30 SAK (Rec: 05/30/19 14:24 [facility] [id number]) OP-PT Balance Assessment Sitting Balance Static Sitting Balance Ability Good Dynamic Sitting Balance Ability Fair Standing Balance Static Standing Balance Ability Good Dynamic Standing Balance Ability Fair Device Used hemiwalker right Tinetti Balance Assessment Sitting Balance Sitting Balance Steady, safe Arising from Chair Attempts to Arise Able, requires >1 attempt Standing Balance Immediate Standing Balance Steady with support Standing Balance Steady, wide stance Nudged Response Begins to fall Standing with Eyes Closed Unsteady Turning Step Pattern Turning 360 Degrees Discontinuous steps Stability Turning 360 Degrees Unsteady, grabs/staggers Sitting Down Sitting Down Uses arms or unsteady Gait and Step Initiation of Gait Hesitancy, mult. attempts Right Foot Step Length Does not pass stance ft. Right Foot Step Height Does not clear floor Left Foot Step Length Does not pass stance foot Left Foot Step Height Does not clear floor Step Description Step Symmetry Step length not equal Gait Description Path Description Mild/moderate deviation Trunk Description Marked sway or uses aide Walking Stance Heels apart Scoring and Interpretation Tinetti Composite Score (points) 6 Interpretation of Scores High risk for falls(< 19) Herrera Fall Scale Copyright Permission PT-OP-E Functional Tests Start: 05/28/19 08:11 Freq: Status: Active Protocol: Document 05/14/21 10:50 [facility] (Rec: 05/14/21 11:08 [facility] [id number]) Functional Tests 6 Minute Walk Test Distance 169ft Device Used spc, TB wrapping Comments pt has headache today and feels that may have slowed her down. Timed Up and Go (TUG) Score 107 seconds PT-OP-G Mobility & Gait Start: 05/28/19 08:11 Freq: Status: Active Protocol: Document 05/26/20 11:15 SAK (Rec: 05/26/20 17:04 [facility] [id number]) OP Mobility Evaluation Bed Mobility Rolling min assist to right CGA to left Supine to and from Sit min assist to right CGA to left Transfers Sit to Stand CGA to min assist without UE use Bed to Chair Transfers requires use of right UE but able to do with SBA Floor Transfers unable PT-OP-H Neuro Start: 05/28/19 08:11 Freq: Status: Active Protocol: Document 05/29/19 14:30 SAK (Rec: 05/30/19 14:24 [facility] [id number]) Sensation Evaluation Gross Sensation Gross Sensation Left UE Impaired,Left LE Impaired Sensation Description Paresthesia,Numbness Coordination Evaluation Lower Extremity Tests Left Alternate Heel to Knee; Heel to Toe Test Moderate Impairment Heel on Boles Test Moderate Impairment Foot Tapping Test Moderate Impairment PT-OP-K Range of Motion Start: 05/28/19 08:11 Freq: Status: Active Protocol: Document 05/26/20 11:15 SAK (Rec: 05/26/20 17:04 [facility] [id number]) Hip Goniometric Range of Motion Hip jake Hip ROM WFL Yes Comments actively right LE, passively left LE Knee Goniometric Range of Motion Knee jake Knee ROM WFL Yes Ankle and Foot Goniometric Range of Motion Ankle and Foot Left Passive Ankle/Foot ROM WFL No Left Active Ankle/Foot ROM WFL No PT-OP-M Strength Start: 05/28/19 08:11 Freq: Status: Active Protocol: Document 05/26/20 11:15 SAK (Rec: 05/26/20 17:04 [facility] [id number]) Hip Strength Hip Manual Muscle Testing Left Flexion (L2) 3- Fair- Extension (S1) 2 Poor Abduction 2+ Poor+ External Rotation 3- Fair- Internal Rotation 3+ Fair+ Right Flexion (L2) 4 Good Extension (S1) 4- Good- Abduction 4 Good External Rotation 3+ Fair+ Internal Rotation 4- Good- PT-OP-Q Treatments Start: 05/28/19 08:11 Freq: Status: Active Protocol: Document 12/16/21 10:32 SAK (Rec: 12/16/21 11:24 [facility] [id number]) Therapeutic Exercises Sitting Exercises IT band stretch Side left Reps/Minutes 2min Comments with pin and stretch HS stretch Reps/Minutes 2x30 Comments manual HC stretch Side left Resistance AAROM Equipment Used manual Reps/Minutes 30 x 3 Gait Training Gait Activity outdoor Description ascend/descend Device Used single point cane Level of Assistance CGA, cues Surface pavement, short curb Distance/Duration 5x Treatment Focus increasing height difference, safety Comments started 2 1/2 progressed to 5 height moderate verbal and tactile cues, encouragement CGA to min A Manual Therapy Treatment Soft Tissue Mobilization L calf Body Location L calf, Mobilization Type Myofascial Release,Strumming, Trigger Point Release Intensity/Depth Moderate Body Position seated pre gait Comments good feedback response decreased tight muscles ITB, peroneal Body Location L ITB Mobilization Type Cross-Friction,Myofascial Release,Sustained Pressure Intensity/Depth gentle> moderate> gentle pressure Body Position Sitting Comments tender to pressure, modified with feedback. Pt responded improved decrease tightness pre gait for success. PT-OP-R Modalities Start: 05/28/19 08:11 Freq: Status: Active Protocol: Document 12/29/20 10:30 SP (Rec: 12/29/20 11:44 SP [id number]) Electric Stimulation Electric Stimulation Functional Electric Stimulation Body Location L hand/ forearm extensors Duration (Minutes) 2 Patient Position Sitting Comments NMES- education on placement of pad for muscular feedback extension based- check self placement understanding. PT-OP-T Assessment and Plan Start: 05/28/19 08:11 Freq: Status: Active Protocol: Document 12/16/21 10:32 [facility] (Rec: 12/16/21 11:24 [facility] [id number]) Physical Therapy Assessment Goals Five Impairment gait speed not adequate for safe community ambulation Mcfp Goal (LTG) Patient able to ambulate 300' in 6 min. TUG score no greater than 30 sec 06/02/20: 134' 08/28/20: 144', likely not as high due to new shoes and wearing old AFO because fits better in new shoes. Requires level 4 theraband for derotation of left LE into more neutral position for gait . 09/19/20: 146 ft 6 min w/ QC and Tb wrapping to LLE. 11/13/20: 153 ft CG w/ SPC 2>3 pt gait w/out metronome w/ reported L glut/ lateral leg burn pain, 2 step brief stand breaks. 11/24/20: progressing 173.7 ft using SPC, predominently 2 pt gait. TUG score 59 sec using SP 01/27/21: TUG 55 sec. , 6 min walk test 199.9 ft with SPC 03/19/21: 6 min walk test 165' , TUG 1:20. Continue with use of theraband for derotation of excess ER left LE with gait . 04/16/21: 6MWT 190 ft w/ SPC and TB wrapping assist hip IR. 04/23/21: 6MWT 181 ftw/ SPC and TB wrapping 06/25/21: 6MWT 180 ft with SPC and TB wrapping. TU sec 09/16/21 - average gait speed 0 .14 m/s on 6MWT which pt completed with no AD (AFO only ). LTG Duration 12/24/21 Four Impairment requires assistance with bed mobility and transfers Short Term Goal (STG) Patient will be able to perform all bed mobility independently to improve her functional independence. 10/31/19: good goal progress 06/02/20:inconsistent, but min assist most times 11/24/20: Met goal: pt is independent in supine>sit. STG Duration goal met ( independent 11/24/20 ) Mcfp Goal (LTG) Patient will be able to perform a floor transfer with SB to min assist. 5x sit to stand score in no more than 15 sec as measure of functional strength for transfers 10/31/19: max assist today 01/02/20: has not been willing to try since 10/31/19 06/02/21: does not feel strong enough to try yet. 06/25/21: 08/28/20: max assistance required 12/02/20: remains at max assist , not recently willing to attempt floor transfer. 5x sit to stand score 26 seconds 01/27/21: not tried recently. 03/24/21: 5x sit to stand 25 sec. No floor transfer today 06/25/21: 5x sit to stand 24 sec. Patient didn't feel up to doing floor transfer, remains a concern 09/16/21: Pt willing to work on floor transfers but demonstrates a great deal of fear avoidance. 5 Time Sit to Stand today in 30.4 seconds from standard height chair with no use of RUE LTG Duration 12/24/21 Three Impairment weakness left UE and LE s/p CVA Steam Tank Operator Goal (LTG) Improve functional strength in left LE, as evidenced by ability to move from sit > < stand without use of UE's. 10/31/19: OT starts tomorrow. Good progress with sit to stand, though mostly using right UE and LE 01/02/20: Improving ability to perform, able to increase weight-bearing through left LE with cues, but still some use of right UE 05/26/20: With manual and visual feedback patient able to transfer sit to stand with only CG A. 08/28/20: inconsistent ability to move sit to stand without using UE's, but able to do transfer without physical assistance 11/24/20: Goal Met 01/27/21: more difficulty recently, having to use hands. Goal reactivated. 03/24/21: difficulty motor planning and performing sit to stand today. 06/25/21: patient becomes frustrated with sit to stand transfers as she expresses she feels she has a hard time remembering how to do it, has to use right UE 09/16/21 Pt completes sit to stand x 5 today without use of RUE from std height chair. LTG Duration 12/24/21 Two Impairment balance dysfunction with high risk for falls Mcfp Goal (LTG) Improve balance as evidenced by improvement in Tinnetti balance and gait score to low fall risk range to improve safety in the home and community. 10/31/19: remains high risk for falls 01/02/20: some improvement but still in high risk category 05/26/20: Tinetti score in high risk category 08/28/20: moderate risk for falls 12/02/20: remains in moderate risk for falls. 01/27/21: moderate risk for falls 03/24/21: no significant change noted today but again having poor day. 06/25/21: Moderate risk for falls, though no reported falls over past few months. 09/16/21 No change LTG Duration 12/24/21 One Impairment requires armaan-walker for gait, limited to household gait Steam Tank Operator Goal (LTG) Patient able to ambulate with least restrictive device for functional community distances to improve her functional independence and quality of life. 10/30/19: no progress due to Covid 19. 11/02/19: able to ambulate with quad cane but with very slow speed, household distances, very short community distances . 05/26/20: Now able to ambulate with use of single point cane and use of L4 theraband wrapped around left LE to facilitate left LE internal rotation for improved alignment. Patient unable to don the theraband on her own. Gait is for short distances and very slow at 39 ft in 2 min. 08/28/20: has demonstrated improved gait ability, still using theraband for derotation of LE for more neutral position. Able to consistenly use quad cane and is increasing stride length especially with cues. Now able to ascend and descend 4 stairs with min assist using railing. Mod assist on 6 stairs. 12/02/20: Patient ambulating with SPC, mostly household but some community distances, improved gait alignment with use of theraband for improved alignment. Patient not consistently able to ambulate community distances due to pain in her left LE, and lack of neurological control left LE. Patient may benefit from modification to her current AFO or fabrication of new AFO. 173 ft in 6 minutes 01/27/21: using SPC. Limitations due to left foot, knee and hip pain, right wrist pain 6 min walk test improved to 199.9 feet today 03/24/21: slower 6 min walk test today as above. Has had modification to her AFO with some improvement in her function, but had poor day today. 06/25/21: 180' on 6 min walk test, patient reports left knee feeling wonky, and right UE still painful due to surgery' having stitches out today. Also c/o lack of caregiver recently has limited her walking, no outings. Will try again next session. 09/16/21: Pt completes 6MWT without cane today/ Average gait speed 0.14 m/s. LTG Duration 12/24/21 Progress Towards Goals Progress Towards Goals Progressing Toward Goals Assessment Summary Assessment Able to progress from 2 1/2 to 5 height curb today for ascending and descending, 1 higher than last session. Goal is 7-8 for standard height curb. Physical Therapy Plan Frequency and Duration Frequency of Treatment 2x/Week Duration of Treatment 3 months Plan of Care Start Date 09/23/21 Plan of Care End Date 12/24/21 Therapeutic Interventions Therapeutic Interventions Aquatic Therapy,Balance Training,Gait Training,Home Exercise Program,Neuromuscular Re-education,Orthotic/ Prosthetic Management,Patient/ Caregiver Education,Self-Care/ Home Management,Taping, Therapeutic Activities, Therapeutic Exercises Modalities Cold Pack/Ice Massage,Hot Packs Next Visit Focus/Plan Next Note Type Treatment Note Next Visit Plan Continue gait training on uneven surfaces, functional strengthening and safety, balance retraining.
--- NOTE | 2021-12-23 16:25 | PT.OTRE ---
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 Cervical somatic dysfunction Chronic constipation Chronic left shoulder pain Chronic neck pain Chronic neck pain Chronic neck pain with abnormal neurologic examination Chronic neuropathic pain Chronic pain Chronic pain of left lower extremity Chronic pain of right lower extremity Chronic right hip pain Chronic right shoulder pain Chronic right-sided thoracic back pain Class 2 obesity Constipation Constipation Cranial somatic dysfunction Difficulty swallowing pills Dominant hemiplegia complicating stroke Dry mouth, unspecified Dysphagia Elevated BP without diagnosis of hypertension Excessive vitamin B12 intake Family history of colon cancer Fatigue Foot drop, left Generalized anxiety disorder GERD (gastroesophageal reflux disease) Headache Hyperextension deformity of left knee Hypothyroidism Iliotibial band syndrome, left leg Iliotibial band syndrome, left leg Irritable bowel syndrome Left hand weakness Left hemiplegia Left leg weakness Major depressive disorder Mass of right axilla Menorrhagia Mixed hyperlipidemia Mixed hyperlipidemia Neuropathic pain Obesity Obesity (BMI 35.0-39.9 without comorbidity) JM (obstructive sleep apnea) Pelvic somatic dysfunction Right wrist pain Seasonal allergies Segmental and somatic dysfunction of abdomen and other regions Segmental and somatic dysfunction of lumbar region Segmental and somatic dysfunction of rib cage Segmental and somatic dysfunction of sacral region Segmental and somatic dysfunction of thoracic region Seizure disorder Shortness of breath Sleep apnea in adult Stiff neck Stroke Throat disorder Vision changes Vision disorder Vitamin D deficiency Weight gain due to medication Weight gain finding Surgical History (Last Reviewed 10/20/21 @ 07:40 by KINJAL Cooper) Anesthesia Brain aneurysm (~03/25/15) De Quervain's syndrome (tenosynovitis) (~1996) Visit Care Team Role Provider Type KINJAL Cooper Attending Provider Advanced Assistant Superintendent Primary Care Provider Specialty: Family Practice Address: [address] [place] [address], [id number] Email: [email or web address] Physical Therapy Re-Evaluation PT-OP-A Visit Information Start: 05/28/19 08:11 Freq: Status: Active Protocol: Document 12/23/21 09:46 SAK (Rec: 12/23/21 11:19 [facility] [id number]) Out-Patient Physical Therapy Visit Information Visit Information Visit Type Re-Evaluation Visit Start Time 09:50 Visit Stop Time 10:30 Total Visit Minutes 40 Visit Number [id number] Precautions Precautions Seizure disorder memory dysfunction PT-OP-B Current Condition Start: 05/28/19 08:11 Freq: Status: Active Protocol: Document 06/04/20 11:15 SAK (Rec: 06/05/20 16:34 [facility] [id number]) Current Condition History of Current Condition Onset Date 2014 Current Complaints weakness, requires assistance with all mobility and household tasks History of Current Condition Reports that she suffered a stroke in 2014 after surgery for brain aneurysm. CVA caused weakness on the left side of her body, gait and balance difficulty, seizures. PT-OP-C Subjective Start: 05/28/19 08:11 Freq: Status: Active Protocol: Document 12/23/21 09:46 [facility] (Rec: 12/23/21 16:25 [facility] [id number]) OP-PT Subjective Patient Comments Patient Comments Patient reporting having a hard day, tired, hurting, and overwhelmed by kids who were playing loudly in the waiting room for PT. Doesn't feel up to doing much today. PT-OP-D Balance Start: 05/28/19 08:11 Freq: Status: Active Protocol: Document 05/29/19 14:30 SAK (Rec: 05/30/19 14:24 [facility] [id number]) OP-PT Balance Assessment Sitting Balance Static Sitting Balance Ability Good Dynamic Sitting Balance Ability Fair Standing Balance Static Standing Balance Ability Good Dynamic Standing Balance Ability Fair Device Used hemiwalker right Tinetti Balance Assessment Sitting Balance Sitting Balance Steady, safe Arising from Chair Attempts to Arise Able, requires >1 attempt Standing Balance Immediate Standing Balance Steady with support Standing Balance Steady, wide stance Nudged Response Begins to fall Standing with Eyes Closed Unsteady Turning Step Pattern Turning 360 Degrees Discontinuous steps Stability Turning 360 Degrees Unsteady, grabs/staggers Sitting Down Sitting Down Uses arms or unsteady Gait and Step Initiation of Gait Hesitancy, mult. attempts Right Foot Step Length Does not pass stance ft. Right Foot Step Height Does not clear floor Left Foot Step Length Does not pass stance foot Left Foot Step Height Does not clear floor Step Description Step Symmetry Step length not equal Gait Description Path Description Mild/moderate deviation Trunk Description Marked sway or uses aide Walking Stance Heels apart Scoring and Interpretation Tinetti Composite Score (points) 6 Interpretation of Scores High risk for falls(< 19) Herrera Fall Scale Copyright Permission Javier JM, Javier RM, Baldev SJ. Development of a scale to identify the fall- prone patient. Can J Aging 1989;8;366-7. Fabian Herrera (2009). Preventing patient falls. (2nd ed). Taliaferro: Bai. PT-OP-E Functional Tests Start: 05/28/19 08:11 Freq: Status: Active Protocol: Document 05/14/21 10:50 [facility] (Rec: 05/14/21 11:08 [facility] [id number]) Functional Tests 6 Minute Walk Test Distance 169ft Device Used spc, TB wrapping Comments pt has headache today and feels that may have slowed her down. Timed Up and Go (TUG) Score 107 seconds PT-OP-G Mobility & Gait Start: 05/28/19 08:11 Freq: Status: Active Protocol: Document 05/26/20 11:15 [facility] (Rec: 05/26/20 17:04 [facility] [id number]) OP Mobility Evaluation Bed Mobility Rolling min assist to right CGA to left Supine to and from Sit min assist to right CGA to left Transfers Sit to Stand CGA to min assist without UE use Bed to Chair Transfers requires use of right UE but able to do with SBA Floor Transfers unable PT-OP-H Neuro Start: 05/28/19 08:11 Freq: Status: Active Protocol: Document 05/29/19 14:30 [facility] (Rec: 05/30/19 14:24 [facility] [id number]) Sensation Evaluation Gross Sensation Gross Sensation Left UE Impaired,Left LE Impaired Sensation Description Paresthesia,Numbness Coordination Evaluation Lower Extremity Tests Left Alternate Heel to Knee; Heel to Toe Test Moderate Impairment Heel on Boles Test Moderate Impairment Foot Tapping Test Moderate Impairment PT-OP-K Range of Motion Start: 05/28/19 08:11 Freq: Status: Active Protocol: Document 05/26/20 11:15 [facility] (Rec: 05/26/20 17:04 [facility] [id number]) Hip Goniometric Range of Motion Hip Measured in Degrees jake Hip ROM WFL Yes Comments actively right LE, passively left LE Knee Goniometric Range of Motion Knee Measured in Degrees jake Knee ROM WFL Yes Ankle and Foot Goniometric Range of Motion Ankle and Foot Measured in Degrees Left Passive Ankle/Foot ROM WFL No Left Active Ankle/Foot ROM WFL No PT-OP-M Strength Start: 05/28/19 08:11 Freq: Status: Active Protocol: Document 05/26/20 11:15 [facility] (Rec: 05/26/20 17:04 [facility] [id number]) Hip Strength Hip Manual Muscle Testing Left Flexion (L2) 3- Fair- Extension (S1) 2 Poor Abduction 2+ Poor+ External Rotation 3- Fair- Internal Rotation 3+ Fair+ Right Flexion (L2) 4 Good Extension (S1) 4- Good- Abduction 4 Good External Rotation 3+ Fair+ Internal Rotation 4- Good- PT-OP-Q Treatments Start: 05/28/19 08:11 Freq: Status: Active Protocol: Document 12/23/21 09:46 [facility] (Rec: 12/23/21 16:25 [facility] [id number]) Therapeutic Exercises Sitting Exercises chin tuck, neck lengthening Reps/Minutes 5x scapular retraction Reps/Minutes 10x Comments verbal and manual cues Standing Exercises calf stretch Reps/Minutes 10x Comments verbal and manual cues Therapeutic Activity Therapeutic Activity 5x sit to stand test Name 5xSTS Comments - 28 sec from 18 surface Gait Training Gait Activity gait w/ AD no wrapping Device Used SPC Level of Assistance SBA Surface stable Distance/Duration 50 ft x 2 Treatment Focus L knee flexion, hip IR, wt shift to left, step-through RLE gait Comments cued small step LLE, bigger step RLE: 2 pt gait and LLE awareness of adduction to decrease L hip ER. Decreased edurance today and required use of assistive device Cues for postural correction with standing and gait. Manual Therapy Treatment Soft Tissue Mobilization L calf Body Location L calf, Mobilization Type Myofascial Release,Strumming, Trigger Point Release Intensity/Depth Moderate Body Position Sidelying Comments good feedback response decreased tight muscles ITB, peroneal Body Location L ITB Mobilization Type Instrument Assisted,Myofascial Release Intensity/Depth gentle> moderate> gentle pressure Body Position Sitting Comments tender to pressure, modified with feedback. Pt responded improved decrease tightness pre gait for success. PT-OP-R Modalities Start: 05/28/19 08:11 Freq: Status: Active Protocol: Document 12/29/20 10:30 SP (Rec: 12/29/20 11:44 [facility] [id number]) Electric Stimulation Electric Stimulation Functional Electric Stimulation Body Location L hand/ forearm extensors Duration (Minutes) 2 Patient Position Sitting Comments NMES- education on placement of pad for muscular feedback extension based- check self placement understanding. PT-OP-T Assessment and Plan Start: 05/28/19 08:11 Freq: Status: Active Protocol: Document 12/23/21 09:46 [facility] (Rec: 12/23/21 16:25 [facility] [id number]) Physical Therapy Assessment Goals Five Impairment gait speed not adequate for safe community ambulation Assisted Goal (LTG) Patient able to ambulate 300' in 6 min. TUG score no greater than 30 sec 06/02/20: 134' 08/28/20: 144', likely not as high due to new shoes and wearing old AFO because fits better in new shoes. Requires level 4 theraband for derotation of left LE into more neutral position for gait . 09/19/20: 146 ft 6 min w/ QC and Tb wrapping to LLE. 11/13/20: 153 ft CG w/ SPC 2>3 pt gait w/out metronome w/ reported L glut/ lateral leg burn pain, 2 step brief stand breaks. 11/24/20: progressing 173.7 ft using SPC, predominently 2 pt gait. TUG score 59 sec using SP 01/27/21: TUG 55 sec. , 6 min walk test 199.9 ft with SPC 03/19/21: 6 min walk test 165' , TUG 1:20. Continue with use of theraband for derotation of excess ER left LE with gait . 04/16/21: 6MWT 190 ft w/ SPC and TB wrapping assist hip IR. 04/23/21: 6MWT 181 ftw/ SPC and TB wrapping 06/25/21: 6MWT 180 ft with SPC and TB wrapping. TU sec 09/16/21 - average gait speed 0 .14 m/s on 6MWT which pt completed with no AD (AFO only ). 12/23/21: most recent 6 min walk test 159 ft with no theraband derotation wrap and no assistive device LTG Duration 03/26/22 Four Impairment requires assistance with bed mobility and transfers Short Term Goal (STG) Patient will be able to perform all bed mobility independently to improve her functional independence. 10/31/19: good goal progress 06/02/20:inconsistent, but min assist most times 11/24/20: Met goal: pt is independent in supine>sit. STG Duration goal met Assisted Goal (LTG) Patient will be able to perform a floor transfer with SB to min assist. 5x sit to stand score in no more than 15 sec as measure of functional strength for transfers 10/31/19: max assist today 01/02/20: has not been willing to try since 10/31/19 06/02/21: does not feel strong enough to try yet. 06/25/21: 08/28/20: max assistance required 12/02/20: remains at max assist , not recently willing to attempt floor transfer. 5x sit to stand score 26 seconds 01/27/21: not tried recently. 03/24/21: 5x sit to stand 25 sec. No floor transfer today 06/25/21: 5x sit to stand 24 sec. Patient didn't feel up to doing floor transfer, remains a concern 09/16/21: Pt willing to work on floor transfers but demonstrates a great deal of fear avoidance. 12/23/21: 5 Time Sit to Stand today in 30.4 seconds from standard height chair with no use of RUE LTG Duration 03/26/22 Three Impairment weakness left UE and LE s/p CVA Assisted Goal (LTG) Improve functional strength in left LE, as evidenced by ability to move from sit > < stand without use of UE's. 10/31/19: OT starts tomorrow. Good progress with sit to stand, though mostly using right UE and LE 01/02/20: Improving ability to perform, able to increase weight-bearing through left LE with cues, but still some use of right UE 05/26/20: With manual and visual feedback patient able to transfer sit to stand with only CG A. 08/28/20: inconsistent ability to move sit to stand without using UE's, but able to do transfer without physical assistance 11/24/20: Goal Met 01/27/21: more difficulty recently, having to use hands. Goal reactivated. 03/24/21: difficulty motor planning and performing sit to stand today. 06/25/21: patient becomes frustrated with sit to stand transfers as she expresses she feels she has a hard time remembering how to do it, has to use right UE 09/16/21 Pt completes sit to stand x 5 today without use of RUE from std height chair. 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 10/31/19: remains high risk for falls 01/02/20: some improvement but still in high risk category 05/26/20: Tinetti score in high risk category 08/28/20: moderate risk for falls 12/02/20: remains in moderate risk for falls. 01/27/21: moderate risk for falls 03/24/21: no significant change noted today but again having poor day. 06/25/21: Moderate risk for falls, though no reported falls over past few months. 09/16/21 No change 12/23/21: improved by 3 points LTG Duration 03/26/22 One Impairment requires armaan-walker for gait, limited to household gait Assisted Goal (LTG) Patient able to ambulate with least restrictive device for functional community distances to improve her functional independence and quality of life. 10/30/19: no progress due to Covid 19. 11/02/19: able to ambulate with quad cane but with very slow speed, household distances, very short community distances . 05/26/20: Now able to ambulate with use of single point cane and use of L4 theraband wrapped around left LE to facilitate left LE internal rotation for improved alignment. Patient unable to don the theraband on her own. Gait is for short distances and very slow at 39 ft in 2 min. 08/28/20: has demonstrated improved gait ability, still using theraband for derotation of LE for more neutral position. Able to consistenly use quad cane and is increasing stride length especially with cues. Now able to ascend and descend 4 stairs with min assist using railing. Mod assist on 6 stairs. 12/02/20: Patient ambulating with SPC, mostly household but some community distances, improved gait alignment with use of theraband for improved alignment. Patient not consistently able to ambulate community distances due to pain in her left LE, and lack of neurological control left LE. Patient may benefit from modification to her current AFO or fabrication of new AFO. 173 ft in 6 minutes 01/27/21: using SPC. Limitations due to left foot, knee and hip pain, right wrist pain 6 min walk test improved to 199.9 feet today 03/24/21: slower 6 min walk test today as above. Has had modification to her AFO with some improvement in her function, but had poor day today. 06/25/21: 180' on 6 min walk test, patient reports left knee feeling wonky, and right UE still painful due to surgery' having stitches out today. Also c/o lack of caregiver recently has limited her walking, no outings. Will try again next session. 09/16/21: Pt completes 6MWT without cane today/ Average gait speed 0.14 12/23/21: [place] is now able to ambulate indoors with no assistive device. Outdoors on level surfaces with no device with CGA, uneven surfaces requires cane and CG to mod assist. Continues to improve. LTG Duration 03/26/22 Assessment Summary Assessment Today's treatment was limited by patient's pain in left LE , neck, and scapular region; patient educated on possible postural contribution to her pain with exercises perrformed for postural correction, gait training on level surface performed, and ended with manual treatment today. Patient has been making good progress with improved function as noted above, and has good potential for further improvement toward goals with continued PT. Most significantly she is now able to ambulate household distances with no assistive device, and perform 6 min walk test on level surface in PT with no device. Continue to work on uneven surfaces and outdoor gait. She is highly motivated. Physical Therapy Plan Frequency and Duration Frequency of Treatment 2x/Week Duration of Treatment 3 months Plan of Care Start Date 12/23/21 Plan of Care End Date 03/25/22 Therapeutic Interventions Therapeutic Interventions Aquatic Therapy,Balance Training,Gait Training,Home Exercise Program,Neuromuscular Re-education,Orthotic/ Prosthetic Management,Patient/ Caregiver Education,Self-Care/ Home Management,Taping, Therapeutic Activities, Therapeutic Exercises Modalities Cold Pack/Ice Massage,Hot Packs Next Visit Focus/Plan Next Note Type Treatment Note Next Visit Plan Continue gait training on uneven surfaces, functional strengthening and safety, balance retraining, continue cues for postural correction for improved function and decreased pain.
--- NOTE | 2021-12-30 10:51 | PT-OP ANOTE ---
Pt did not show today. PT called and pt stated she did not have today's appointment on her most recent list. She was willing to take an opening at 0945 tomorrow.
--- NOTE | 2021-12-31 12:31 | PT.OTN ---
Current Diagnoses Difficulty in walking, not elsewhere classified (12/31/21) Weakness (12/31/21) History of falling (12/31/21) Physical Therapy Treatment Note PT-OP-A Visit Information Start: 05/28/19 08:11 Freq: Status: Active Protocol: Document 12/31/21 12:21 AW (Rec: 12/31/21 12:31 AW [id number]) Out-Patient Physical Therapy Visit Information Visit Information Visit Type Treatment Note Visit Start Time 09:49 Visit Stop Time 10:30 Total Visit Minutes 41 Visit Number 155 Precautions Precautions Seizure disorder memory dysfunction PT-OP-B Current Condition Start: 05/28/19 08:11 Freq: Status: Active Protocol: Document 06/04/20 11:15 SAK (Rec: 06/05/20 16:34 SAK [id number]) Current Condition History of Current Condition Onset Date 2014 Current Complaints weakness, requires assistance with all mobility and household tasks History of Current Condition Reports that she suffered a stroke in 2014 after surgery for brain aneurysm. CVA caused weakness on the left side of her body, gait and balance difficulty, seizures. PT-OP-C Subjective Start: 05/28/19 08:11 Freq: Status: Active Protocol: Document 12/31/21 12:21 AW (Rec: 12/31/21 12:31 AW [id number]) OP-PT Subjective Patient Comments Patient Comments Adelaide arrived ready to work on curbs and stairs, very motivated today. PT-OP-D Balance Start: 05/28/19 08:11 Freq: Status: Active Protocol: Document 05/29/19 14:30 SAK (Rec: 05/30/19 14:24 SAK [id number]) OP-PT Balance Assessment Sitting Balance Static Sitting Balance Ability Good Dynamic Sitting Balance Ability Fair Standing Balance Static Standing Balance Ability Good Dynamic Standing Balance Ability Fair Device Used hemiwalker right Tinetti Balance Assessment Sitting Balance Sitting Balance Steady, safe Arising from Chair Attempts to Arise Able, requires >1 attempt Standing Balance Immediate Standing Balance Steady with support Standing Balance Steady, wide stance Nudged Response Begins to fall Standing with Eyes Closed Unsteady Turning Step Pattern Turning 360 Degrees Discontinuous steps Stability Turning 360 Degrees Unsteady, grabs/staggers Sitting Down Sitting Down Uses arms or unsteady Gait and Step Initiation of Gait Hesitancy, mult. attempts Right Foot Step Length Does not pass stance ft. Right Foot Step Height Does not clear floor Left Foot Step Length Does not pass stance foot Left Foot Step Height Does not clear floor Step Description Step Symmetry Step length not equal Gait Description Path Description Mild/moderate deviation Trunk Description Marked sway or uses aide Walking Stance Heels apart Scoring and Interpretation Tinetti Composite Score (points) 6 Interpretation of Scores High risk for falls(< 19) Herrera Fall Scale Copyright Permission PT-OP-E Functional Tests Start: 05/28/19 08:11 Freq: Status: Active Protocol: Document 05/14/21 10:50 AMH (Rec: 05/14/21 11:08 AMH [id number]) Functional Tests 6 Minute Walk Test Distance 169ft Device Used spc, TB wrapping Comments pt has headache today and feels that may have slowed her down. Timed Up and Go (TUG) Score 107 seconds PT-OP-G Mobility & Gait Start: 05/28/19 08:11 Freq: Status: Active Protocol: Document 05/26/20 11:15 SAK (Rec: 05/26/20 17:04 SAK [id number]) OP Mobility Evaluation Bed Mobility Rolling min assist to right CGA to left Supine to and from Sit min assist to right CGA to left Transfers Sit to Stand CGA to min assist without UE use Bed to Chair Transfers requires use of right UE but able to do with SBA Floor Transfers unable PT-OP-H Neuro Start: 05/28/19 08:11 Freq: Status: Active Protocol: Document 05/29/19 14:30 SAK (Rec: 05/30/19 14:24 SAK [id number]) Sensation Evaluation Gross Sensation Gross Sensation Left UE Impaired,Left LE Impaired Sensation Description Paresthesia,Numbness Coordination Evaluation Lower Extremity Tests Left Alternate Heel to Knee; Heel to Toe Test Moderate Impairment Heel on Boles Test Moderate Impairment Foot Tapping Test Moderate Impairment PT-OP-K Range of Motion Start: 05/28/19 08:11 Freq: Status: Active Protocol: Document 05/26/20 11:15 SAK (Rec: 05/26/20 17:04 SAK [id number]) Hip Goniometric Range of Motion Hip jake Hip ROM WFL Yes Comments actively right LE, passively left LE Knee Goniometric Range of Motion Knee jake Knee ROM WFL Yes Ankle and Foot Goniometric Range of Motion Ankle and Foot Left Passive Ankle/Foot ROM WFL No Left Active Ankle/Foot ROM WFL No PT-OP-M Strength Start: 05/28/19 08:11 Freq: Status: Active Protocol: Document 05/26/20 11:15 SAK (Rec: 05/26/20 17:04 SAK [id number]) Hip Strength Hip Manual Muscle Testing Left Flexion (L2) 3- Fair- Extension (S1) 2 Poor Abduction 2+ Poor+ External Rotation 3- Fair- Internal Rotation 3+ Fair+ Right Flexion (L2) 4 Good Extension (S1) 4- Good- Abduction 4 Good External Rotation 3+ Fair+ Internal Rotation 4- Good- PT-OP-Q Treatments Start: 05/28/19 08:11 Freq: Status: Active Protocol: Document 12/31/21 12:21 AW (Rec: 12/31/21 12:31 AW [id number]) Therapeutic Exercises Sitting Exercises IT band stretch Side left Reps/Minutes 2min Comments with pin and stretch HS stretch Reps/Minutes 2x30 Comments manual Gait Training Gait Activity outdoor Description ascend/descend Device Used single point cane Level of Assistance CGA, cues Surface pavement, short curb Distance/Duration 5x Treatment Focus increasing height difference, safety Comments started 2 1/2 progressed to 5 height moderate verbal and tactile cues, encouragement CGA to min A except first rep when pt lost balance and needed max A to recover. stairs Description 5 stairs Device Used R railing AFO, heel lift Level of Assistance CGA ascend, SBA descend Distance/Duration x14 (lobby stairs) Treatment Focus weight shift, decreased UE support Comments step-to pattern gait w/ AD no wrapping Device Used no AD Level of Assistance SBA to CGA Surface pavement Distance/Duration 50 ft, 100 ft Treatment Focus L knee flexion, hip IR, wt shift to left, step-through RLE gait Comments Busy environment with lots of sound and other stimulation. Focused on step pattern, decreased L hip ER with distraction. PT-OP-R Modalities Start: 05/28/19 08:11 Freq: Status: Active Protocol: Document 12/29/20 10:30 SP (Rec: 12/29/20 11:44 SP [id number]) Electric Stimulation Electric Stimulation Functional Electric Stimulation Body Location L hand/ forearm extensors Duration (Minutes) 2 Patient Position Sitting Comments NMES- education on placement of pad for muscular feedback extension based- check self placement understanding. PT-OP-T Assessment and Plan Start: 05/28/19 08:11 Freq: Status: Active Protocol: Document 12/31/21 12:21 AW (Rec: 12/31/21 12:31 AW [id number]) Physical Therapy Assessment Goals Five Impairment gait speed not adequate for safe community ambulation Shelter Goal (LTG) Patient able to ambulate 300' in 6 min. TUG score no greater than 30 sec 06/02/20: 134' 08/28/20: 144', likely not as high due to new shoes and wearing old AFO because fits better in new shoes. Requires level 4 theraband for derotation of left LE into more neutral position for gait . 09/19/20: 146 ft 6 min w/ QC and Tb wrapping to LLE. 11/13/20: 153 ft CG w/ SPC 2>3 pt gait w/out metronome w/ reported L glut/ lateral leg burn pain, 2 step brief stand breaks. 11/24/20: progressing 173.7 ft using SPC, predominently 2 pt gait. TUG score 59 sec using SP 01/27/21: TUG 55 sec. , 6 min walk test 199.9 ft with SPC 03/19/21: 6 min walk test 165' , TUG 1:20. Continue with use of theraband for derotation of excess ER left LE with gait . 04/16/21: 6MWT 190 ft w/ SPC and TB wrapping assist hip IR. 04/23/21: 6MWT 181 ftw/ SPC and TB wrapping 06/25/21: 6MWT 180 ft with SPC and TB wrapping. TU sec 09/16/21 - average gait speed 0 .14 m/s on 6MWT which pt completed with no AD (AFO only ). 12/23/21: most recent 6 min walk test 159 ft with no theraband derotation wrap and no assistive device LTG Duration 03/26/22 Four Impairment requires assistance with bed mobility and transfers Short Term Goal (STG) Patient will be able to perform all bed mobility independently to improve her functional independence. 10/31/19: good goal progress 06/02/20:inconsistent, but min assist most times 11/24/20: Met goal: pt is independent in supine>sit. STG Duration goal met Shelter Goal (LTG) Patient will be able to perform a floor transfer with SB to min assist. 5x sit to stand score in no more than 15 sec as measure of functional strength for transfers 10/31/19: max assist today 01/02/20: has not been willing to try since 10/31/19 06/02/21: does not feel strong enough to try yet. 06/25/21: 08/28/20: max assistance required 12/02/20: remains at max assist , not recently willing to attempt floor transfer. 5x sit to stand score 26 seconds 01/27/21: not tried recently. 03/24/21: 5x sit to stand 25 sec. No floor transfer today 06/25/21: 5x sit to stand 24 sec. Patient didn't feel up to doing floor transfer, remains a concern 09/16/21: Pt willing to work on floor transfers but demonstrates a great deal of fear avoidance. 12/23/21: 5 Time Sit to Stand today in 30.4 seconds from standard height chair with no use of RUE LTG Duration 03/26/22 Three Impairment weakness left UE and LE s/p CVA Steward/Stewardess Second Goal (LTG) Improve functional strength in left LE, as evidenced by ability to move from sit > < stand without use of UE's. 10/31/19: OT starts tomorrow. Good progress with sit to stand, though mostly using right UE and LE 01/02/20: Improving ability to perform, able to increase weight-bearing through left LE with cues, but still some use of right UE 05/26/20: With manual and visual feedback patient able to transfer sit to stand with only CG A. 08/28/20: inconsistent ability to move sit to stand without using UE's, but able to do transfer without physical assistance 11/24/20: Goal Met 01/27/21: more difficulty recently, having to use hands. Goal reactivated. 03/24/21: difficulty motor planning and performing sit to stand today. 06/25/21: patient becomes frustrated with sit to stand transfers as she expresses she feels she has a hard time remembering how to do it, has to use right UE 09/16/21 Pt completes sit to stand x 5 today without use of RUE from std height chair. LTG Duration goal met Two Impairment balance dysfunction with high risk for falls Shelter Goal (LTG) Improve balance as evidenced by improvement in Tinnetti balance and gait score to low fall risk range to improve safety in the home and community. 10/31/19: remains high risk for falls 01/02/20: some improvement but still in high risk category 05/26/20: Tinetti score in high risk category 08/28/20: moderate risk for falls 12/02/20: remains in moderate risk for falls. 01/27/21: moderate risk for falls 03/24/21: no significant change noted today but again having poor day. 06/25/21: Moderate risk for falls, though no reported falls over past few months. 09/16/21 No change 12/23/21: improved by 3 points LTG Duration 03/26/22 One Impairment requires armaan-walker for gait, limited to household gait Shelter Goal (LTG) Patient able to ambulate with least restrictive device for functional community distances to improve her functional independence and quality of life. 10/30/19: no progress due to Covid 19. 11/02/19: able to ambulate with quad cane but with very slow speed, household distances, very short community distances . 05/26/20: Now able to ambulate with use of single point cane and use of L4 theraband wrapped around left LE to facilitate left LE internal rotation for improved alignment. Patient unable to don the theraband on her own. Gait is for short distances and very slow at 39 ft in 2 min. 08/28/20: has demonstrated improved gait ability, still using theraband for derotation of LE for more neutral position. Able to consistenly use quad cane and is increasing stride length especially with cues. Now able to ascend and descend 4 stairs with min assist using railing. Mod assist on 6 stairs. 12/02/20: Patient ambulating with SPC, mostly household but some community distances, improved gait alignment with use of theraband for improved alignment. Patient not consistently able to ambulate community distances due to pain in her left LE, and lack of neurological control left LE. Patient may benefit from modification to her current AFO or fabrication of new AFO. 173 ft in 6 minutes 01/27/21: using SPC. Limitations due to left foot, knee and hip pain, right wrist pain 6 min walk test improved to 199.9 feet today 03/24/21: slower 6 min walk test today as above. Has had modification to her AFO with some improvement in her function, but had poor day today. 06/25/21: 180' on 6 min walk test, patient reports left knee feeling wonky, and right UE still painful due to surgery' having stitches out today. Also c/o lack of caregiver recently has limited her walking, no outings. Will try again next session. 09/16/21: Pt completes 6MWT without cane today/ Average gait speed 0.14 12/23/21: Adelaide is now able to ambulate indoors with no assistive device. Outdoors on level surfaces with no device with CGA, uneven surfaces requires cane and CG to mod assist. Continues to improve. LTG Duration 03/26/22 Assessment Summary Assessment Adelaide had a near fall with first curb attempt but was able to recover and continue working on curb management, stairs, and gait without AD in a busy, distracting environment. She is highly motivated. Physical Therapy Plan Frequency and Duration Frequency of Treatment 2x/Week Duration of Treatment 3 months Plan of Care Start Date 12/23/21 Plan of Care End Date 03/25/22 Therapeutic Interventions Therapeutic Interventions Aquatic Therapy,Balance Training,Gait Training,Home Exercise Program,Neuromuscular Re-education,Orthotic/ Prosthetic Management,Patient/ Caregiver Education,Self-Care/ Home Management,Taping, Therapeutic Activities, Therapeutic Exercises Modalities Cold Pack/Ice Massage,Hot Packs Next Visit Focus/Plan Next Note Type Treatment Note Next Visit Plan Continue gait training on uneven surfaces, functional strengthening and safety, balance retraining, continue cues for postural correction for improved function and decreased pain.
--- NOTE | 2022-01-06 11:06 | PT.OTN ---
Current Diagnoses Difficulty in walking, not elsewhere classified (01/06/22) Weakness (01/06/22) History of falling (01/06/22) Physical Therapy Treatment Note PT-OP-A Visit Information Start: 05/28/19 08:11 Freq: Status: Active Protocol: Document 01/06/22 09:47 AW (Rec: 01/06/22 11:06 AW [id number]) Out-Patient Physical Therapy Visit Information Visit Information Visit Type Treatment Note Visit Start Time 10:30 Visit Stop Time 11:02 Total Visit Minutes 32 Visit Number 156 Precautions Precautions Seizure disorder memory dysfunction PT-OP-B Current Condition Start: 05/28/19 08:11 Freq: Status: Active Protocol: Document 06/04/20 11:15 SAK (Rec: 06/05/20 16:34 SAK [id number]) Current Condition History of Current Condition Onset Date 2014 Current Complaints weakness, requires assistance with all mobility and household tasks History of Current Condition Reports that she suffered a stroke in 2014 after surgery for brain aneurysm. CVA caused weakness on the left side of her body, gait and balance difficulty, seizures. PT-OP-C Subjective Start: 05/28/19 08:11 Freq: Status: Active Protocol: Document 01/06/22 09:47 AW (Rec: 01/06/22 11:06 AW [id number]) OP-PT Subjective Patient Comments Patient Comments Adelaide has to leave early, has an MBS scheduled today. PT-OP-D Balance Start: 05/28/19 08:11 Freq: Status: Active Protocol: Document 05/29/19 14:30 SAK (Rec: 05/30/19 14:24 SAK [id number]) OP-PT Balance Assessment Sitting Balance Static Sitting Balance Ability Good Dynamic Sitting Balance Ability Fair Standing Balance Static Standing Balance Ability Good Dynamic Standing Balance Ability Fair Device Used hemiwalker right Tinetti Balance Assessment Sitting Balance Sitting Balance Steady, safe Arising from Chair Attempts to Arise Able, requires >1 attempt Standing Balance Immediate Standing Balance Steady with support Standing Balance Steady, wide stance Nudged Response Begins to fall Standing with Eyes Closed Unsteady Turning Step Pattern Turning 360 Degrees Discontinuous steps Stability Turning 360 Degrees Unsteady, grabs/staggers Sitting Down Sitting Down Uses arms or unsteady Gait and Step Initiation of Gait Hesitancy, mult. attempts Right Foot Step Length Does not pass stance ft. Right Foot Step Height Does not clear floor Left Foot Step Length Does not pass stance foot Left Foot Step Height Does not clear floor Step Description Step Symmetry Step length not equal Gait Description Path Description Mild/moderate deviation Trunk Description Marked sway or uses aide Walking Stance Heels apart Scoring and Interpretation Tinetti Composite Score (points) 6 Interpretation of Scores High risk for falls(< 19) Herrera Fall Scale Copyright Permission PT-OP-E Functional Tests Start: 05/28/19 08:11 Freq: Status: Active Protocol: Document 05/14/21 10:50 AMH (Rec: 05/14/21 11:08 AMH [id number]) Functional Tests 6 Minute Walk Test Distance 169ft Device Used spc, TB wrapping Comments pt has headache today and feels that may have slowed her down. Timed Up and Go (TUG) Score 107 seconds PT-OP-G Mobility & Gait Start: 05/28/19 08:11 Freq: Status: Active Protocol: Document 05/26/20 11:15 SAK (Rec: 05/26/20 17:04 SAK [id number]) OP Mobility Evaluation Bed Mobility Rolling min assist to right CGA to left Supine to and from Sit min assist to right CGA to left Transfers Sit to Stand CGA to min assist without UE use Bed to Chair Transfers requires use of right UE but able to do with SBA Floor Transfers unable PT-OP-H Neuro Start: 05/28/19 08:11 Freq: Status: Active Protocol: Document 05/29/19 14:30 SAK (Rec: 05/30/19 14:24 SAK [id number]) Sensation Evaluation Gross Sensation Gross Sensation Left UE Impaired,Left LE Impaired Sensation Description Paresthesia,Numbness Coordination Evaluation Lower Extremity Tests Left Alternate Heel to Knee; Heel to Toe Test Moderate Impairment Heel on Boles Test Moderate Impairment Foot Tapping Test Moderate Impairment PT-OP-K Range of Motion Start: 05/28/19 08:11 Freq: Status: Active Protocol: Document 05/26/20 11:15 SAK (Rec: 05/26/20 17:04 SAK [id number]) Hip Goniometric Range of Motion Hip jake Hip ROM WFL Yes Comments actively right LE, passively left LE Knee Goniometric Range of Motion Knee jake Knee ROM WFL Yes Ankle and Foot Goniometric Range of Motion Ankle and Foot Left Passive Ankle/Foot ROM WFL No Left Active Ankle/Foot ROM WFL No PT-OP-M Strength Start: 05/28/19 08:11 Freq: Status: Active Protocol: Document 05/26/20 11:15 SAK (Rec: 05/26/20 17:04 SAK [id number]) Hip Strength Hip Manual Muscle Testing Left Flexion (L2) 3- Fair- Extension (S1) 2 Poor Abduction 2+ Poor+ External Rotation 3- Fair- Internal Rotation 3+ Fair+ Right Flexion (L2) 4 Good Extension (S1) 4- Good- Abduction 4 Good External Rotation 3+ Fair+ Internal Rotation 4- Good- PT-OP-Q Treatments Start: 05/28/19 08:11 Freq: Status: Active Protocol: Document 01/06/22 09:47 AW (Rec: 01/06/22 11:06 AW [id number]) Cardio Equipment Recumbent Stepper (Sci-Fit) Duration (Minutes) 6 Resistance 2.2 Seat Position 6 Other cues for left LE alignment, Therapeutic Exercises Sitting Exercises HS stretch Reps/Minutes 2x30 Comments manual Standing Exercises calf stretch Reps/Minutes 10x Comments verbal and manual cues Gait Training Gait Activity uneven Description uneven Device Used AFO, no cane Level of Assistance CGA-min assist Surface 2 red yoga mats stacked Comments 2.5 laps today. Good control, no LOB, minimal reaching with RUE PT-OP-R Modalities Start: 05/28/19 08:11 Freq: Status: Active Protocol: Document 12/29/20 10:30 SP (Rec: 12/29/20 11:44 SP [id number]) Electric Stimulation Electric Stimulation Functional Electric Stimulation Body Location L hand/ forearm extensors Duration (Minutes) 2 Patient Position Sitting Comments NMES- education on placement of pad for muscular feedback extension based- check self placement understanding. PT-OP-T Assessment and Plan Start: 05/28/19 08:11 Freq: Status: Active Protocol: Document 01/06/22 09:47 AW (Rec: 01/06/22 11:06 AW [id number]) Physical Therapy Assessment Goals Five Impairment gait speed not adequate for safe community ambulation Health Practice Manager Goal (LTG) Patient able to ambulate 300' in 6 min. TUG score no greater than 30 sec 06/02/20: 134' 08/28/20: 144', likely not as high due to new shoes and wearing old AFO because fits better in new shoes. Requires level 4 theraband for derotation of left LE into more neutral position for gait . 09/19/20: 146 ft 6 min w/ QC and Tb wrapping to LLE. 11/13/20: 153 ft CG w/ SPC 2>3 pt gait w/out metronome w/ reported L glut/ lateral leg burn pain, 2 step brief stand breaks. 11/24/20: progressing 173.7 ft using SPC, predominently 2 pt gait. TUG score 59 sec using SP 01/27/21: TUG 55 sec. , 6 min walk test 199.9 ft with SPC 03/19/21: 6 min walk test 165' , TUG 1:20. Continue with use of theraband for derotation of excess ER left LE with gait . 04/16/21: 6MWT 190 ft w/ SPC and TB wrapping assist hip IR. 04/23/21: 6MWT 181 ftw/ SPC and TB wrapping 06/25/21: 6MWT 180 ft with SPC and TB wrapping. TU sec 09/16/21 - average gait speed 0 .14 m/s on 6MWT which pt completed with no AD (AFO only ). 12/23/21: most recent 6 min walk test 159 ft with no theraband derotation wrap and no assistive device LTG Duration 03/26/22 Four Impairment requires assistance with bed mobility and transfers Short Term Goal (STG) Patient will be able to perform all bed mobility independently to improve her functional independence. 10/31/19: good goal progress 06/02/20:inconsistent, but min assist most times 11/24/20: Met goal: pt is independent in supine>sit. STG Duration goal met Skilled Nursing Goal (LTG) Patient will be able to perform a floor transfer with SB to min assist. 5x sit to stand score in no more than 15 sec as measure of functional strength for transfers 10/31/19: max assist today 01/02/20: has not been willing to try since 10/31/19 06/02/21: does not feel strong enough to try yet. 06/25/21: 08/28/20: max assistance required 12/02/20: remains at max assist , not recently willing to attempt floor transfer. 5x sit to stand score 26 seconds 01/27/21: not tried recently. 03/24/21: 5x sit to stand 25 sec. No floor transfer today 06/25/21: 5x sit to stand 24 sec. Patient didn't feel up to doing floor transfer, remains a concern 09/16/21: Pt willing to work on floor transfers but demonstrates a great deal of fear avoidance. 12/23/21: 5 Time Sit to Stand today in 30.4 seconds from standard height chair with no use of RUE LTG Duration 03/26/22 Three Impairment weakness left UE and LE s/p CVA Health Practice Manager Goal (LTG) Improve functional strength in left LE, as evidenced by ability to move from sit > < stand without use of UE's. 10/31/19: OT starts tomorrow. Good progress with sit to stand, though mostly using right UE and LE 01/02/20: Improving ability to perform, able to increase weight-bearing through left LE with cues, but still some use of right UE 05/26/20: With manual and visual feedback patient able to transfer sit to stand with only CG A. 08/28/20: inconsistent ability to move sit to stand without using UE's, but able to do transfer without physical assistance 11/24/20: Goal Met 01/27/21: more difficulty recently, having to use hands. Goal reactivated. 03/24/21: difficulty motor planning and performing sit to stand today. 06/25/21: patient becomes frustrated with sit to stand transfers as she expresses she feels she has a hard time remembering how to do it, has to use right UE 09/16/21 Pt completes sit to stand x 5 today without use of RUE from std height chair. LTG Duration goal met Two Impairment balance dysfunction with high risk for falls Health Practice Manager Goal (LTG) Improve balance as evidenced by improvement in Tinnetti balance and gait score to low fall risk range to improve safety in the home and community. 10/31/19: remains high risk for falls 01/02/20: some improvement but still in high risk category 05/26/20: Tinetti score in high risk category 08/28/20: moderate risk for falls 12/02/20: remains in moderate risk for falls. 01/27/21: moderate risk for falls 03/24/21: no significant change noted today but again having poor day. 06/25/21: Moderate risk for falls, though no reported falls over past few months. 09/16/21 No change 12/23/21: improved by 3 points LTG Duration 03/26/22 One Impairment requires armaan-walker for gait, limited to household gait Health Practice Manager Goal (LTG) Patient able to ambulate with least restrictive device for functional community distances to improve her functional independence and quality of life. 10/30/19: no progress due to Covid 19. 11/02/19: able to ambulate with quad cane but with very slow speed, household distances, very short community distances . 05/26/20: Now able to ambulate with use of single point cane and use of L4 theraband wrapped around left LE to facilitate left LE internal rotation for improved alignment. Patient unable to don the theraband on her own. Gait is for short distances and very slow at 39 ft in 2 min. 08/28/20: has demonstrated improved gait ability, still using theraband for derotation of LE for more neutral position. Able to consistenly use quad cane and is increasing stride length especially with cues. Now able to ascend and descend 4 stairs with min assist using railing. Mod assist on 6 stairs. 12/02/20: Patient ambulating with SPC, mostly household but some community distances, improved gait alignment with use of theraband for improved alignment. Patient not consistently able to ambulate community distances due to pain in her left LE, and lack of neurological control left LE. Patient may benefit from modification to her current AFO or fabrication of new AFO. 173 ft in 6 minutes 01/27/21: using SPC. Limitations due to left foot, knee and hip pain, right wrist pain 6 min walk test improved to 199.9 feet today 03/24/21: slower 6 min walk test today as above. Has had modification to her AFO with some improvement in her function, but had poor day today. 06/25/21: 180' on 6 min walk test, patient reports left knee feeling wonky, and right UE still painful due to surgery' having stitches out today. Also c/o lack of caregiver recently has limited her walking, no outings. Will try again next session. 09/16/21: Pt completes 6MWT without cane today/ Average gait speed 0.14 12/23/21: Adelaide is now able to ambulate indoors with no assistive device. Outdoors on level surfaces with no device with CGA, uneven surfaces requires cane and CG to mod assist. Continues to improve. LTG Duration 03/26/22 Assessment Summary Assessment Short treatment today due to schedule conflict with barium swallow study. Pt did well with uneven surface training and was able to recover from getting her feet stuck on yoga mats with minimal cues for strategy but only CGA needed for physical assist. Physical Therapy Plan Frequency and Duration Frequency of Treatment 2x/Week Duration of Treatment 3 months Plan of Care Start Date 12/23/21 Plan of Care End Date 03/25/22 Therapeutic Interventions Therapeutic Interventions Aquatic Therapy,Balance Training,Gait Training,Home Exercise Program,Neuromuscular Re-education,Orthotic/ Prosthetic Management,Patient/ Caregiver Education,Self-Care/ Home Management,Taping, Therapeutic Activities, Therapeutic Exercises Modalities Cold Pack/Ice Massage,Hot Packs Next Visit Focus/Plan Next Note Type Treatment Note Next Visit Plan Continue gait training on uneven surfaces, functional strengthening and safety, balance retraining, continue cues for postural correction for improved function and decreased pain.
--- NOTE | 2022-01-13 12:21 | PT.OTN ---
Current Diagnoses Difficulty in walking, not elsewhere classified (01/13/22) Weakness (01/13/22) History of falling (01/13/22) Physical Therapy Treatment Note PT-OP-A Visit Information Start: 05/28/19 08:11 Freq: Status: Active Protocol: Document 01/13/22 08:58 AW (Rec: 01/13/22 12:21 AW [id number]) Out-Patient Physical Therapy Visit Information Visit Information Visit Type Treatment Note Visit Start Time 10:30 Visit Stop Time 11:15 Total Visit Minutes 45 Visit Number 157 Precautions Precautions Seizure disorder memory dysfunction PT-OP-B Current Condition Start: 05/28/19 08:11 Freq: Status: Active Protocol: Document 06/04/20 11:15 SAK (Rec: 06/05/20 16:34 SAK [id number]) Current Condition History of Current Condition Onset Date 2014 Current Complaints weakness, requires assistance with all mobility and household tasks History of Current Condition Reports that she suffered a stroke in 2014 after surgery for brain aneurysm. CVA caused weakness on the left side of her body, gait and balance difficulty, seizures. PT-OP-C Subjective Start: 05/28/19 08:11 Freq: Status: Active Protocol: Document 01/13/22 08:58 AW (Rec: 01/13/22 12:21 AW [id number]) OP-PT Subjective Patient Comments Patient Comments Adelaide went on a 20-minute walk at the [place] yesterday and did not use her cane. She did depend on railings where available. PT-OP-D Balance Start: 05/28/19 08:11 Freq: Status: Active Protocol: Document 05/29/19 14:30 SAK (Rec: 05/30/19 14:24 SAK [id number]) OP-PT Balance Assessment Sitting Balance Static Sitting Balance Ability Good Dynamic Sitting Balance Ability Fair Standing Balance Static Standing Balance Ability Good Dynamic Standing Balance Ability Fair Device Used hemiwalker right Tinetti Balance Assessment Sitting Balance Sitting Balance Steady, safe Arising from Chair Attempts to Arise Able, requires >1 attempt Standing Balance Immediate Standing Balance Steady with support Standing Balance Steady, wide stance Nudged Response Begins to fall Standing with Eyes Closed Unsteady Turning Step Pattern Turning 360 Degrees Discontinuous steps Stability Turning 360 Degrees Unsteady, grabs/staggers Sitting Down Sitting Down Uses arms or unsteady Gait and Step Initiation of Gait Hesitancy, mult. attempts Right Foot Step Length Does not pass stance ft. Right Foot Step Height Does not clear floor Left Foot Step Length Does not pass stance foot Left Foot Step Height Does not clear floor Step Description Step Symmetry Step length not equal Gait Description Path Description Mild/moderate deviation Trunk Description Marked sway or uses aide Walking Stance Heels apart Scoring and Interpretation Tinetti Composite Score (points) 6 Interpretation of Scores High risk for falls(< 19) Herrera Fall Scale Copyright Permission PT-OP-E Functional Tests Start: 05/28/19 08:11 Freq: Status: Active Protocol: Document 05/14/21 10:50 [facility] (Rec: 05/14/21 11:08 AMH [id number]) Functional Tests 6 Minute Walk Test Distance 169ft Device Used spc, TB wrapping Comments pt has headache today and feels that may have slowed her down. Timed Up and Go (TUG) Score 107 seconds PT-OP-G Mobility & Gait Start: 05/28/19 08:11 Freq: Status: Active Protocol: Document 05/26/20 11:15 [facility] (Rec: 05/26/20 17:04 [facility] [id number]) OP Mobility Evaluation Bed Mobility Rolling min assist to right CGA to left Supine to and from Sit min assist to right CGA to left Transfers Sit to Stand CGA to min assist without UE use Bed to Chair Transfers requires use of right UE but able to do with SBA Floor Transfers unable PT-OP-H Neuro Start: 05/28/19 08:11 Freq: Status: Active Protocol: Document 05/29/19 14:30 SAK (Rec: 05/30/19 14:24 [facility] [id number]) Sensation Evaluation Gross Sensation Gross Sensation Left UE Impaired,Left LE Impaired Sensation Description Paresthesia,Numbness Coordination Evaluation Lower Extremity Tests Left Alternate Heel to Knee; Heel to Toe Test Moderate Impairment Heel on Boles Test Moderate Impairment Foot Tapping Test Moderate Impairment PT-OP-K Range of Motion Start: 05/28/19 08:11 Freq: Status: Active Protocol: Document 05/26/20 11:15 SAK (Rec: 05/26/20 17:04 [facility] [id number]) Hip Goniometric Range of Motion Hip jake Hip ROM WFL Yes Comments actively right LE, passively left LE Knee Goniometric Range of Motion Knee jake Knee ROM WFL Yes Ankle and Foot Goniometric Range of Motion Ankle and Foot Left Passive Ankle/Foot ROM WFL No Left Active Ankle/Foot ROM WFL No PT-OP-M Strength Start: 05/28/19 08:11 Freq: Status: Active Protocol: Document 05/26/20 11:15 SAK (Rec: 05/26/20 17:04 SAK [id number]) Hip Strength Hip Manual Muscle Testing Left Flexion (L2) 3- Fair- Extension (S1) 2 Poor Abduction 2+ Poor+ External Rotation 3- Fair- Internal Rotation 3+ Fair+ Right Flexion (L2) 4 Good Extension (S1) 4- Good- Abduction 4 Good External Rotation 3+ Fair+ Internal Rotation 4- Good- PT-OP-Q Treatments Start: 05/28/19 08:11 Freq: Status: Active Protocol: Document 01/13/22 08:58 AW (Rec: 01/13/22 12:21 AW [id number]) Therapeutic Exercises Standing Exercises step ups Standing Exercise Name RHR up/down SBA/CGA Resistance 6 step Equipment Used R HR Reps/Minutes x5 lead with RLE Gait Training Gait Activity outdoor Description ascend/descend Device Used single point cane Level of Assistance CGA, cues Surface pavement, short curb Distance/Duration 5x Treatment Focus increasing height difference, safety Comments started 2 1/2 progressed to 5 height CGA all reps except 5 height when pt did not shift weight onto RLE and needed mod A to step up PT-OP-R Modalities Start: 05/28/19 08:11 Freq: Status: Active Protocol: Document 12/29/20 10:30 SP (Rec: 12/29/20 11:44 SP [id number]) Electric Stimulation Electric Stimulation Functional Electric Stimulation Body Location L hand/ forearm extensors Duration (Minutes) 2 Patient Position Sitting Comments NMES- education on placement of pad for muscular feedback extension based- check self placement understanding. PT-OP-T Assessment and Plan Start: 05/28/19 08:11 Freq: Status: Active Protocol: Document 01/13/22 08:58 AW (Rec: 01/13/22 12:21 AW [id number]) Physical Therapy Assessment Goals Five Impairment gait speed not adequate for safe community ambulation Executive Administrative Assistant Goal (LTG) Patient able to ambulate 300' in 6 min. TUG score no greater than 30 sec 06/02/20: 134' 08/28/20: 144', likely not as high due to new shoes and wearing old AFO because fits better in new shoes. Requires level 4 theraband for derotation of left LE into more neutral position for gait . 09/19/20: 146 ft 6 min w/ QC and Tb wrapping to LLE. 11/13/20: 153 ft CG w/ SPC 2>3 pt gait w/out metronome w/ reported L glut/ lateral leg burn pain, 2 step brief stand breaks. 11/24/20: progressing 173.7 ft using SPC, predominently 2 pt gait. TUG score 59 sec using SP 01/27/21: TUG 55 sec. , 6 min walk test 199.9 ft with SPC 03/19/21: 6 min walk test 165' , TUG 1:20. Continue with use of theraband for derotation of excess ER left LE with gait . 04/16/21: 6MWT 190 ft w/ SPC and TB wrapping assist hip IR. 04/23/21: 6MWT 181 ftw/ SPC and TB wrapping 06/25/21: 6MWT 180 ft with SPC and TB wrapping. TU sec 09/16/21 - average gait speed 0 .14 m/s on 6MWT which pt completed with no AD (AFO only ). 12/23/21: most recent 6 min walk test 159 ft with no theraband derotation wrap and no assistive device LTG Duration 03/26/22 Four Impairment requires assistance with bed mobility and transfers Short Term Goal (STG) Patient will be able to perform all bed mobility independently to improve her functional independence. 10/31/19: good goal progress 06/02/20:inconsistent, but min assist most times 11/24/20: Met goal: pt is independent in supine>sit. STG Duration goal met Executive Administrative Assistant Goal (LTG) Patient will be able to perform a floor transfer with SB to min assist. 5x sit to stand score in no more than 15 sec as measure of functional strength for transfers 10/31/19: max assist today 01/02/20: has not been willing to try since 10/31/19 06/02/21: does not feel strong enough to try yet. 06/25/21: 08/28/20: max assistance required 12/02/20: remains at max assist , not recently willing to attempt floor transfer. 5x sit to stand score 26 seconds 01/27/21: not tried recently. 03/24/21: 5x sit to stand 25 sec. No floor transfer today 06/25/21: 5x sit to stand 24 sec. Patient didn't feel up to doing floor transfer, remains a concern 09/16/21: Pt willing to work on floor transfers but demonstrates a great deal of fear avoidance. 12/23/21: 5 Time Sit to Stand today in 30.4 seconds from standard height chair with no use of RUE LTG Duration 03/26/22 Three Impairment weakness left UE and LE s/p CVA Group Home Goal (LTG) Improve functional strength in left LE, as evidenced by ability to move from sit > < stand without use of UE's. 10/31/19: OT starts tomorrow. Good progress with sit to stand, though mostly using right UE and LE 01/02/20: Improving ability to perform, able to increase weight-bearing through left LE with cues, but still some use of right UE 05/26/20: With manual and visual feedback patient able to transfer sit to stand with only CG A. 08/28/20: inconsistent ability to move sit to stand without using UE's, but able to do transfer without physical assistance 11/24/20: Goal Met 01/27/21: more difficulty recently, having to use hands. Goal reactivated. 03/24/21: difficulty motor planning and performing sit to stand today. 06/25/21: patient becomes frustrated with sit to stand transfers as she expresses she feels she has a hard time remembering how to do it, has to use right UE 09/16/21 Pt completes sit to stand x 5 today without use of RUE from std height chair. LTG Duration goal met Two Impairment balance dysfunction with high risk for falls Executive Administrative Assistant Goal (LTG) Improve balance as evidenced by improvement in Tinnetti balance and gait score to low fall risk range to improve safety in the home and community. 10/31/19: remains high risk for falls 01/02/20: some improvement but still in high risk category 05/26/20: Tinetti score in high risk category 08/28/20: moderate risk for falls 12/02/20: remains in moderate risk for falls. 01/27/21: moderate risk for falls 03/24/21: no significant change noted today but again having poor day. 06/25/21: Moderate risk for falls, though no reported falls over past few months. 09/16/21 No change 12/23/21: improved by 3 points LTG Duration 03/26/22 One Impairment requires armaan-walker for gait, limited to household gait Group Home Goal (LTG) Patient able to ambulate with least restrictive device for functional community distances to improve her functional independence and quality of life. 10/30/19: no progress due to Covid 19. 11/02/19: able to ambulate with quad cane but with very slow speed, household distances, very short community distances . 05/26/20: Now able to ambulate with use of single point cane and use of L4 theraband wrapped around left LE to facilitate left LE internal rotation for improved alignment. Patient unable to don the theraband on her own. Gait is for short distances and very slow at 39 ft in 2 min. 08/28/20: has demonstrated improved gait ability, still using theraband for derotation of LE for more neutral position. Able to consistenly use quad cane and is increasing stride length especially with cues. Now able to ascend and descend 4 stairs with min assist using railing. Mod assist on 6 stairs. 12/02/20: Patient ambulating with SPC, mostly household but some community distances, improved gait alignment with use of theraband for improved alignment. Patient not consistently able to ambulate community distances due to pain in her left LE, and lack of neurological control left LE. Patient may benefit from modification to her current AFO or fabrication of new AFO. 173 ft in 6 minutes 01/27/21: using SPC. Limitations due to left foot, knee and hip pain, right wrist pain 6 min walk test improved to 199.9 feet today 03/24/21: slower 6 min walk test today as above. Has had modification to her AFO with some improvement in her function, but had poor day today. 06/25/21: 180' on 6 min walk test, patient reports left knee feeling wonky, and right UE still painful due to surgery' having stitches out today. Also c/o lack of caregiver recently has limited her walking, no outings. Will try again next session. 09/16/21: Pt completes 6MWT without cane today/ Average gait speed 0.14 12/23/21: Adelaide is now able to ambulate indoors with no assistive device. Outdoors on level surfaces with no device with CGA, uneven surfaces requires cane and CG to mod assist. Continues to improve. LTG Duration 03/26/22 Assessment Summary Assessment Adelaide did well with curbs today until final rep on 5 curb when she had difficulty shifting weight forward over RLE and needed mod assist to recover. Worked in the parallel bars on step ups to 6 step using rail vs cane. Physical Therapy Plan Frequency and Duration Frequency of Treatment 2x/Week Duration of Treatment 3 months Plan of Care Start Date 12/23/21 Plan of Care End Date 03/25/22 Therapeutic Interventions Therapeutic Interventions Aquatic Therapy,Balance Training,Gait Training,Home Exercise Program,Neuromuscular Re-education,Orthotic/ Prosthetic Management,Patient/ Caregiver Education,Self-Care/ Home Management,Taping, Therapeutic Activities, Therapeutic Exercises Modalities Cold Pack/Ice Massage,Hot Packs Next Visit Focus/Plan Next Note Type Treatment Note Next Visit Plan Continue gait training on uneven surfaces, functional strengthening and safety, balance retraining, continue cues for postural correction for improved function and decreased pain.
--- NOTE | 2022-01-21 11:17 | PT.OTN ---
Current Diagnoses Difficulty in walking, not elsewhere classified (01/21/22) Weakness (01/21/22) History of falling (01/21/22) Physical Therapy Treatment Note PT-OP-A Visit Information Start: 05/28/19 08:11 Freq: Status: Active Protocol: Document 01/21/22 10:34 AW (Rec: 01/21/22 11:17 AW [id number]) Out-Patient Physical Therapy Visit Information Visit Information Visit Type Treatment Note Visit Start Time 10:30 Visit Stop Time 11:15 Total Visit Minutes 45 Visit Number 158 Precautions Precautions Seizure disorder memory dysfunction PT-OP-B Current Condition Start: 05/28/19 08:11 Freq: Status: Active Protocol: Document 06/04/20 11:15 SAK (Rec: 06/05/20 16:34 SAK [id number]) Current Condition History of Current Condition Onset Date 2014 Current Complaints weakness, requires assistance with all mobility and household tasks History of Current Condition Reports that she suffered a stroke in 2014 after surgery for brain aneurysm. CVA caused weakness on the left side of her body, gait and balance difficulty, seizures. PT-OP-C Subjective Start: 05/28/19 08:11 Freq: Status: Active Protocol: Document 01/21/22 10:34 AW (Rec: 01/21/22 11:17 AW [id number]) OP-PT Subjective Patient Comments Patient Comments Another walk [facility] yesterday with minimal use of cane. Adelaide notes she struggles most with slight inclines and declines on cement. PT-OP-D Balance Start: 05/28/19 08:11 Freq: Status: Active Protocol: Document 05/29/19 14:30 SAK (Rec: 05/30/19 14:24 SAK [id number]) OP-PT Balance Assessment Sitting Balance Static Sitting Balance Ability Good Dynamic Sitting Balance Ability Fair Standing Balance Static Standing Balance Ability Good Dynamic Standing Balance Ability Fair Device Used hemiwalker right Tinetti Balance Assessment Sitting Balance Sitting Balance Steady, safe Arising from Chair Attempts to Arise Able, requires >1 attempt Standing Balance Immediate Standing Balance Steady with support Standing Balance Steady, wide stance Nudged Response Begins to fall Standing with Eyes Closed Unsteady Turning Step Pattern Turning 360 Degrees Discontinuous steps Stability Turning 360 Degrees Unsteady, grabs/staggers Sitting Down Sitting Down Uses arms or unsteady Gait and Step Initiation of Gait Hesitancy, mult. attempts Right Foot Step Length Does not pass stance ft. Right Foot Step Height Does not clear floor Left Foot Step Length Does not pass stance foot Left Foot Step Height Does not clear floor Step Description Step Symmetry Step length not equal Gait Description Path Description Mild/moderate deviation Trunk Description Marked sway or uses aide Walking Stance Heels apart Scoring and Interpretation Tinetti Composite Score (points) 6 Interpretation of Scores High risk for falls(< 19) Herrera Fall Scale Copyright Permission PT-OP-E Functional Tests Start: 05/28/19 08:11 Freq: Status: Active Protocol: Document 05/14/21 10:50 AMH (Rec: 05/14/21 11:08 AMH [id number]) Functional Tests 6 Minute Walk Test Distance 169ft Device Used spc, TB wrapping Comments pt has headache today and feels that may have slowed her down. Timed Up and Go (TUG) Score 107 seconds PT-OP-G Mobility & Gait Start: 05/28/19 08:11 Freq: Status: Active Protocol: Document 05/26/20 11:15 SAK (Rec: 05/26/20 17:04 [facility] [id number]) OP Mobility Evaluation Bed Mobility Rolling min assist to right CGA to left Supine to and from Sit min assist to right CGA to left Transfers Sit to Stand CGA to min assist without UE use Bed to Chair Transfers requires use of right UE but able to do with SBA Floor Transfers unable PT-OP-H Neuro Start: 05/28/19 08:11 Freq: Status: Active Protocol: Document 05/29/19 14:30 SAK (Rec: 05/30/19 14:24 [facility] [id number]) Sensation Evaluation Gross Sensation Gross Sensation Left UE Impaired,Left LE Impaired Sensation Description Paresthesia,Numbness Coordination Evaluation Lower Extremity Tests Left Alternate Heel to Knee; Heel to Toe Test Moderate Impairment Heel on Boles Test Moderate Impairment Foot Tapping Test Moderate Impairment PT-OP-K Range of Motion Start: 05/28/19 08:11 Freq: Status: Active Protocol: Document 05/26/20 11:15 SAK (Rec: 05/26/20 17:04 [facility] [id number]) Hip Goniometric Range of Motion Hip jake Hip ROM WFL Yes Comments actively right LE, passively left LE Knee Goniometric Range of Motion Knee jake Knee ROM WFL Yes Ankle and Foot Goniometric Range of Motion Ankle and Foot Left Passive Ankle/Foot ROM WFL No Left Active Ankle/Foot ROM WFL No PT-OP-M Strength Start: 05/28/19 08:11 Freq: Status: Active Protocol: Document 05/26/20 11:15 SAK (Rec: 05/26/20 17:04 SAK [id number]) Hip Strength Hip Manual Muscle Testing Left Flexion (L2) 3- Fair- Extension (S1) 2 Poor Abduction 2+ Poor+ External Rotation 3- Fair- Internal Rotation 3+ Fair+ Right Flexion (L2) 4 Good Extension (S1) 4- Good- Abduction 4 Good External Rotation 3+ Fair+ Internal Rotation 4- Good- PT-OP-Q Treatments Start: 05/28/19 08:11 Freq: Status: Active Protocol: Document 01/21/22 10:34 AW (Rec: 01/21/22 11:17 AW [id number]) Therapeutic Exercises Standing Exercises minisquats Standing Exercise Name squats Equipment Used // Reps/Minutes 2x10 Comments window for visual feedback step ups Standing Exercise Name RHR up/down SBA/CGA Resistance 6 step, yoga mat Equipment Used R HR Reps/Minutes x 14 lead with RLE Comments step set on yoga mat in //; CGA Gait Training Gait Activity uneven Description uneven Comments with step practice. See step ups above Neuro Re-Education Treatment Balance Activities standing balance Comments on 6 block duiring step ups as above; cues and manual facilitation for soft L knee , increased weight-shift left, no UE support on //, PT-OP-R Modalities Start: 05/28/19 08:11 Freq: Status: Active Protocol: Document 12/29/20 10:30 SP (Rec: 12/29/20 11:44 SP [id number]) Electric Stimulation Electric Stimulation Functional Electric Stimulation Body Location L hand/ forearm extensors Duration (Minutes) 2 Patient Position Sitting Comments NMES- education on placement of pad for muscular feedback extension based- check self placement understanding. PT-OP-T Assessment and Plan Start: 05/28/19 08:11 Freq: Status: Active Protocol: Document 01/21/22 10:34 AW (Rec: 01/21/22 11:17 AW [id number]) Physical Therapy Assessment Goals Five Impairment gait speed not adequate for safe community ambulation [facility]ci Goal (LTG) Patient able to ambulate 300' in 6 min. TUG score no greater than 30 sec 06/02/20: 134' 08/28/20: 144', likely not as high due to new shoes and wearing old AFO because fits better in new shoes. Requires level 4 theraband for derotation of left LE into more neutral position for gait . 09/19/20: 146 ft 6 min w/ QC and Tb wrapping to LLE. 11/13/20: 153 ft CG w/ SPC 2>3 pt gait w/out metronome w/ reported L glut/ lateral leg burn pain, 2 step brief stand breaks. 11/24/20: progressing 173.7 ft using SPC, predominently 2 pt gait. TUG score 59 sec using SP 01/27/21: TUG 55 sec. , 6 min walk test 199.9 ft with SPC 03/19/21: 6 min walk test 165' , TUG 1:20. Continue with use of theraband for derotation of excess ER left LE with gait . 04/16/21: 6MWT 190 ft w/ SPC and TB wrapping assist hip IR. 04/23/21: 6MWT 181 ftw/ SPC and TB wrapping 06/25/21: 6MWT 180 ft with SPC and TB wrapping. TU sec 09/16/21 - average gait speed 0 .14 m/s on 6MWT which pt completed with no AD (AFO only ). 12/23/21: most recent 6 min walk test 159 ft with no theraband derotation wrap and no assistive device LTG Duration 03/26/22 Four Impairment requires assistance with bed mobility and transfers Short Term Goal (STG) Patient will be able to perform all bed mobility independently to improve her functional independence. 10/31/19: good goal progress 06/02/20:inconsistent, but min assist most times 11/24/20: Met goal: pt is independent in supine>sit. STG Duration goal met Fci Goal (LTG) Patient will be able to perform a floor transfer with SB to min assist. 5x sit to stand score in no more than 15 sec as measure of functional strength for transfers 10/31/19: max assist today 01/02/20: has not been willing to try since 10/31/19 06/02/21: does not feel strong enough to try yet. 06/25/21: 08/28/20: max assistance required 12/02/20: remains at max assist , not recently willing to attempt floor transfer. 5x sit to stand score 26 seconds 01/27/21: not tried recently. 03/24/21: 5x sit to stand 25 sec. No floor transfer today 06/25/21: 5x sit to stand 24 sec. Patient didn't feel up to doing floor transfer, remains a concern 09/16/21: Pt willing to work on floor transfers but demonstrates a great deal of fear avoidance. 12/23/21: 5 Time Sit to Stand today in 30.4 seconds from standard height chair with no use of RUE LTG Duration 03/26/22 Three Impairment weakness left UE and LE s/p CVA Fci Goal (LTG) Improve functional strength in left LE, as evidenced by ability to move from sit > < stand without use of UE's. 10/31/19: OT starts tomorrow. Good progress with sit to stand, though mostly using right UE and LE 01/02/20: Improving ability to perform, able to increase weight-bearing through left LE with cues, but still some use of right UE 05/26/20: With manual and visual feedback patient able to transfer sit to stand with only CG A. 08/28/20: inconsistent ability to move sit to stand without using UE's, but able to do transfer without physical assistance 11/24/20: Goal Met 01/27/21: more difficulty recently, having to use hands. Goal reactivated. 03/24/21: difficulty motor planning and performing sit to stand today. 06/25/21: patient becomes frustrated with sit to stand transfers as she expresses she feels she has a hard time remembering how to do it, has to use right UE 09/16/21 Pt completes sit to stand x 5 today without use of RUE from std height chair. LTG Duration goal met Two Impairment balance dysfunction with high risk for falls Fci Goal (LTG) Improve balance as evidenced by improvement in Tinnetti balance and gait score to low fall risk range to improve safety in the home and community. 10/31/19: remains high risk for falls 01/02/20: some improvement but still in high risk category 05/26/20: Tinetti score in high risk category 08/28/20: moderate risk for falls 12/02/20: remains in moderate risk for falls. 01/27/21: moderate risk for falls 03/24/21: no significant change noted today but again having poor day. 06/25/21: Moderate risk for falls, though no reported falls over past few months. 09/16/21 No change 12/23/21: improved by 3 points LTG Duration 03/26/22 One Impairment requires armaan-walker for gait, limited to household gait Fci Goal (LTG) Patient able to ambulate with least restrictive device for functional community distances to improve her functional independence and quality of life. 10/30/19: no progress due to Covid 19. 11/02/19: able to ambulate with quad cane but with very slow speed, household distances, very short community distances . 05/26/20: Now able to ambulate with use of single point cane and use of L4 theraband wrapped around left LE to facilitate left LE internal rotation for improved alignment. Patient unable to don the theraband on her own. Gait is for short distances and very slow at 39 ft in 2 min. 08/28/20: has demonstrated improved gait ability, still using theraband for derotation of LE for more neutral position. Able to consistenly use quad cane and is increasing stride length especially with cues. Now able to ascend and descend 4 stairs with min assist using railing. Mod assist on 6 stairs. 12/02/20: Patient ambulating with SPC, mostly household but some community distances, improved gait alignment with use of theraband for improved alignment. Patient not consistently able to ambulate community distances due to pain in her left LE, and lack of neurological control left LE. Patient may benefit from modification to her current AFO or fabrication of new AFO. 173 ft in 6 minutes 01/27/21: using SPC. Limitations due to left foot, knee and hip pain, right wrist pain 6 min walk test improved to 199.9 feet today 03/24/21: slower 6 min walk test today as above. Has had modification to her AFO with some improvement in her function, but had poor day today. 06/25/21: 180' on 6 min walk test, patient reports left knee feeling wonky, and right UE still painful due to surgery' having stitches out today. Also c/o lack of caregiver recently has limited her walking, no outings. Will try again next session. 09/16/21: Pt completes 6MWT without cane today/ Average gait speed 0.14 12/23/21: Adelaide is now able to ambulate indoors with no assistive device. Outdoors on level surfaces with no device with CGA, uneven surfaces requires cane and CG to mod assist. Continues to improve. LTG Duration 03/26/22 Assessment Summary Assessment Backed off of outdoor curb practice today to build confidence, self-efficacy. Adelaide was able to manage single 6 step set on a yoga mat, walking toward the step and going up and over with right rail and with SPC on last reps. Physical Therapy Plan Frequency and Duration Frequency of Treatment 2x/Week Duration of Treatment 3 months Plan of Care Start Date 12/23/21 Plan of Care End Date 03/25/22 Therapeutic Interventions Therapeutic Interventions Aquatic Therapy,Balance Training,Gait Training,Home Exercise Program,Neuromuscular Re-education,Orthotic/ Prosthetic Management,Patient/ Caregiver Education,Self-Care/ Home Management,Taping, Therapeutic Activities, Therapeutic Exercises Modalities Cold Pack/Ice Massage,Hot Packs
--- NOTE | 2022-01-26 11:35 | PT.OTN ---
Current Diagnoses Difficulty in walking, not elsewhere classified (01/26/22) Weakness (01/26/22) History of falling (01/26/22) Physical Therapy Treatment Note PT-OP-A Visit Information Start: 05/28/19 08:11 Freq: Status: Active Protocol: Document 01/26/22 10:33 [facility] (Rec: 01/26/22 11:35 [facility] [id number]) Out-Patient Physical Therapy Visit Information Visit Information Visit Type Treatment Note Visit Start Time 10:30 Visit Stop Time 11:15 Total Visit Minutes 45 Visit Number 159 Precautions Precautions Seizure disorder memory dysfunction PT-OP-B Current Condition Start: 05/28/19 08:11 Freq: Status: Active Protocol: Document 06/04/20 11:15 SAK (Rec: 06/05/20 16:34 [facility] [id number]) Current Condition History of Current Condition Onset Date 2014 Current Complaints weakness, requires assistance with all mobility and household tasks History of Current Condition Reports that she suffered a stroke in 2014 after surgery for brain aneurysm. CVA caused weakness on the left side of her body, gait and balance difficulty, seizures. PT-OP-C Subjective Start: 05/28/19 08:11 Freq: Status: Active Protocol: Document 01/26/22 10:33 SAK (Rec: 01/26/22 11:35 [facility] [id number]) OP-PT Subjective Patient Comments Patient Comments Reports her caregivers hours have been cut some, hasn't been able to walk outside as much or walk without her cane as she does in PT. States very pleased with how she did last session. PT-OP-D Balance Start: 05/28/19 08:11 Freq: Status: Active Protocol: Document 05/29/19 14:30 SAK (Rec: 05/30/19 14:24 [facility] [id number]) OP-PT Balance Assessment Sitting Balance Static Sitting Balance Ability Good Dynamic Sitting Balance Ability Fair Standing Balance Static Standing Balance Ability Good Dynamic Standing Balance Ability Fair Device Used hemiwalker right Tinetti Balance Assessment Sitting Balance Sitting Balance Steady, safe Arising from Chair Attempts to Arise Able, requires >1 attempt Standing Balance Immediate Standing Balance Steady with support Standing Balance Steady, wide stance Nudged Response Begins to fall Standing with Eyes Closed Unsteady Turning Step Pattern Turning 360 Degrees Discontinuous steps Stability Turning 360 Degrees Unsteady, grabs/staggers Sitting Down Sitting Down Uses arms or unsteady Gait and Step Initiation of Gait Hesitancy, mult. attempts Right Foot Step Length Does not pass stance ft. Right Foot Step Height Does not clear floor Left Foot Step Length Does not pass stance foot Left Foot Step Height Does not clear floor Step Description Step Symmetry Step length not equal Gait Description Path Description Mild/moderate deviation Trunk Description Marked sway or uses aide Walking Stance Heels apart Scoring and Interpretation Tinetti Composite Score (points) 6 Interpretation of Scores High risk for falls(< 19) Herrera Fall Scale Copyright Permission PT-OP-E Functional Tests Start: 05/28/19 08:11 Freq: Status: Active Protocol: Document 05/14/21 10:50 [facility] (Rec: 05/14/21 11:08 [facility] [id number]) Functional Tests 6 Minute Walk Test Distance 169ft Device Used spc, TB wrapping Comments pt has headache today and feels that may have slowed her down. Timed Up and Go (TUG) Score 107 seconds PT-OP-G Mobility & Gait Start: 05/28/19 08:11 Freq: Status: Active Protocol: Document 05/26/20 11:15 [facility] (Rec: 05/26/20 17:04 [facility] [id number]) OP Mobility Evaluation Bed Mobility Rolling min assist to right CGA to left Supine to and from Sit min assist to right CGA to left Transfers Sit to Stand CGA to min assist without UE use Bed to Chair Transfers requires use of right UE but able to do with SBA Floor Transfers unable PT-OP-H Neuro Start: 05/28/19 08:11 Freq: Status: Active Protocol: Document 05/29/19 14:30 [facility]AK (Rec: 05/30/19 14:24 [facility] [id number]) Sensation Evaluation Gross Sensation Gross Sensation Left UE Impaired,Left LE Impaired Sensation Description Paresthesia,Numbness Coordination Evaluation Lower Extremity Tests Left Alternate Heel to Knee; Heel to Toe Test Moderate Impairment Heel on Boles Test Moderate Impairment Foot Tapping Test Moderate Impairment PT-OP-K Range of Motion Start: 05/28/19 08:11 Freq: Status: Active Protocol: Document 05/26/20 11:15 [facility] (Rec: 05/26/20 17:04 [facility] [id number]) Hip Goniometric Range of Motion Hip jake Hip ROM WFL Yes Comments actively right LE, passively left LE Knee Goniometric Range of Motion Knee jake Knee ROM WFL Yes Ankle and Foot Goniometric Range of Motion Ankle and Foot Left Passive Ankle/Foot ROM WFL No Left Active Ankle/Foot ROM WFL No PT-OP-M Strength Start: 05/28/19 08:11 Freq: Status: Active Protocol: Document 05/26/20 11:15 [facility] (Rec: 05/26/20 17:04 [facility] [id number]) Hip Strength Hip Manual Muscle Testing Left Flexion (L2) 3- Fair- Extension (S1) 2 Poor Abduction 2+ Poor+ External Rotation 3- Fair- Internal Rotation 3+ Fair+ Right Flexion (L2) 4 Good Extension (S1) 4- Good- Abduction 4 Good External Rotation 3+ Fair+ Internal Rotation 4- Good- PT-OP-Q Treatments Start: 05/28/19 08:11 Freq: Status: Active Protocol: Document 01/26/22 10:33 [facility] (Rec: 01/26/22 11:35 [facility] [id number]) Therapeutic Exercises Supine Exercises ITband stretch Reps/Minutes 2x30 Comments manual, ed of caregiver piriformis stretch Reps/Minutes 2x Comments passive gastroc stretch Supine Exercise Name manual stretch calf Side left Equipment Used in supine on table Comments after floor transfer training, review with caregiver Therapeutic Activity Therapeutic Activity pre-gait wt shifts, steps Comments wt shifts during standing rest breaks x 3 today Gait Training Gait Activity outdoor Description ascend/descend Device Used single point cane, none Level of Assistance CGA, cues Surface sidewalk concrete, gravel with incline Distance/Duration 220, 130, 90, 120, Treatment Focus wt shifts, LE alignment, increasing height difference, safety Comments used SPC for most of gait, but able to ambulate approx 30' on level sidewalk without device for first time outside Manual Therapy Treatment Soft Tissue Mobilization ITB, peroneal Body Location L ITB Mobilization Type Instrument Assisted,Myofascial Release Intensity/Depth gentle> moderate> gentle pressure Body Position Sitting Comments tender to pressure, modified with feedback. Pt responded improved decrease tightness pre gait for success. PT-OP-R Modalities Start: 05/28/19 08:11 Freq: Status: Active Protocol: Document 12/29/20 10:30 [facility] (Rec: 12/29/20 11:44 [facility] [id number]) Electric Stimulation Electric Stimulation Functional Electric Stimulation Body Location L hand/ forearm extensors Duration (Minutes) 2 Patient Position Sitting Comments NMES- education on placement of pad for muscular feedback extension based- check self placement understanding. PT-OP-T Assessment and Plan Start: 05/28/19 08:11 Freq: Status: Active Protocol: Document 01/26/22 10:33 [facility] (Rec: 01/26/22 11:35 [facility] [id number]) Physical Therapy Assessment Goals Five Impairment gait speed not adequate for safe community ambulation [facility] Goal (LTG) Patient able to ambulate 300' in 6 min. TUG score no greater than 30 sec 06/02/20: 134' 08/28/20: 144', likely not as high due to new shoes and wearing old AFO because fits better in new shoes. Requires level 4 theraband for derotation of left LE into more neutral position for gait . 09/19/20: 146 ft 6 min w/ QC and Tb wrapping to LLE. 11/13/20: 153 ft CG w/ SPC 2>3 pt gait w/out metronome w/ reported L glut/ lateral leg burn pain, 2 step brief stand breaks. 11/24/20: progressing 173.7 ft using SPC, predominently 2 pt gait. TUG score 59 sec using SP 01/27/21: TUG 55 sec. , 6 min walk test 199.9 ft with SPC 03/19/21: 6 min walk test 165' , TUG 1:20. Continue with use of theraband for derotation of excess ER left LE with gait . 04/16/21: 6MWT 190 ft w/ SPC and TB wrapping assist hip IR. 04/23/21: 6MWT 181 ftw/ SPC and TB wrapping 06/25/21: 6MWT 180 ft with SPC and TB wrapping. TU sec 09/16/21 - average gait speed 0 .14 m/s on 6MWT which pt completed with no AD (AFO only ). 12/23/21: most recent 6 min walk test 159 ft with no theraband derotation wrap and no assistive device LTG Duration 03/26/22 Four Impairment requires assistance with bed mobility and transfers Short Term Goal (STG) Patient will be able to perform all bed mobility independently to improve her functional independence. 10/31/19: good goal progress 06/02/20:inconsistent, but min assist most times 11/24/20: Met goal: pt is independent in supine>sit. STG Duration goal met [facility] Goal (LTG) Patient will be able to perform a floor transfer with SB to min assist. 5x sit to stand score in no more than 15 sec as measure of functional strength for transfers 10/31/19: max assist today 01/02/20: has not been willing to try since 10/31/19 06/02/21: does not feel strong enough to try yet. 06/25/21: 08/28/20: max assistance required 12/02/20: remains at max assist , not recently willing to attempt floor transfer. 5x sit to stand score 26 seconds 01/27/21: not tried recently. 03/24/21: 5x sit to stand 25 sec. No floor transfer today 06/25/21: 5x sit to stand 24 sec. Patient didn't feel up to doing floor transfer, remains a concern 09/16/21: Pt willing to work on floor transfers but demonstrates a great deal of fear avoidance. 12/23/21: 5 Time Sit to Stand today in 30.4 seconds from standard height chair with no use of RUE LTG Duration 03/26/22 Three Impairment weakness left UE and LE s/p CVA [facility] Goal (LTG) Improve functional strength in left LE, as evidenced by ability to move from sit > < stand without use of UE's. 10/31/19: OT starts tomorrow. Good progress with sit to stand, though mostly using right UE and LE 01/02/20: Improving ability to perform, able to increase weight-bearing through left LE with cues, but still some use of right UE 05/26/20: With manual and visual feedback patient able to transfer sit to stand with only CG A. 08/28/20: inconsistent ability to move sit to stand without using UE's, but able to do transfer without physical assistance 11/24/20: Goal Met 01/27/21: more difficulty recently, having to use hands. Goal reactivated. 03/24/21: difficulty motor planning and performing sit to stand today. 06/25/21: patient becomes frustrated with sit to stand transfers as she expresses she feels she has a hard time remembering how to do it, has to use right UE 09/16/21 Pt completes sit to stand x 5 today without use of RUE from std height chair. LTG Duration goal met Two Impairment balance dysfunction with high risk for falls [employer] Goal (LTG) Improve balance as evidenced by improvement in Tinnetti balance and gait score to low fall risk range to improve safety in the home and community. 10/31/19: remains high risk for falls 01/02/20: some improvement but still in high risk category 05/26/20: Tinetti score in high risk category 08/28/20: moderate risk for falls 12/02/20: remains in moderate risk for falls. 01/27/21: moderate risk for falls 03/24/21: no significant change noted today but again having poor day. 06/25/21: Moderate risk for falls, though no reported falls over past few months. 09/16/21 No change 12/23/21: improved by 3 points LTG Duration 03/26/22 One Impairment requires armaan-walker for gait, limited to household gait [employer] Goal (LTG) Patient able to ambulate with least restrictive device for functional community distances to improve her functional independence and quality of life. 10/30/19: no progress due to Covid 19. 11/02/19: able to ambulate with quad cane but with very slow speed, household distances, very short community distances . 05/26/20: Now able to ambulate with use of single point cane and use of L4 theraband wrapped around left LE to facilitate left LE internal rotation for improved alignment. Patient unable to don the theraband on her own. Gait is for short distances and very slow at 39 ft in 2 min. 08/28/20: has demonstrated improved gait ability, still using theraband for derotation of LE for more neutral position. Able to consistenly use quad cane and is increasing stride length especially with cues. Now able to ascend and descend 4 stairs with min assist using railing. Mod assist on 6 stairs. 12/02/20: Patient ambulating with SPC, mostly household but some community distances, improved gait alignment with use of theraband for improved alignment. Patient not consistently able to ambulate community distances due to pain in her left LE, and lack of neurological control left LE. Patient may benefit from modification to her current AFO or fabrication of new AFO. 173 ft in 6 minutes 01/27/21: using SPC. Limitations due to left foot, knee and hip pain, right wrist pain 6 min walk test improved to 199.9 feet today 03/24/21: slower 6 min walk test today as above. Has had modification to her AFO with some improvement in her function, but had poor day today. 06/25/21: 180' on 6 min walk test, patient reports left knee feeling wonky, and right UE still painful due to surgery' having stitches out today. Also c/o lack of caregiver recently has limited her walking, no outings. Will try again next session. 09/16/21: Pt completes 6MWT without cane today/ Average gait speed 0.14 12/23/21: Adelaide is now able to ambulate indoors with no assistive device. Outdoors on level surfaces with no device with CGA, uneven surfaces requires cane and CG to mod assist. Continues to improve. LTG Duration 03/26/22 Assessment Summary Assessment Adelaide had good session of outdoor gait on concrete and incline with gravel. She demonstrated good self-talk regarding LE alignment and wt shift, safety awaress, and willingness to challenge herself. gait on level with CGA, needed min assist and cues for smaller steps with incline on gravel. Physical Therapy Plan Frequency and Duration Frequency of Treatment 2x/Week Duration of Treatment 3 months Plan of Care Start Date 12/23/21 Plan of Care End Date 03/25/22 Therapeutic Interventions Therapeutic Interventions Aquatic Therapy,Balance Training,Gait Training,Home Exercise Program,Neuromuscular Re-education,Orthotic/ Prosthetic Management,Patient/ Caregiver Education,Self-Care/ Home Management,Taping, Therapeutic Activities, Therapeutic Exercises Modalities Cold Pack/Ice Massage,Hot Packs Next Visit Focus/Plan Next Note Type Treatment Note Next Visit Plan Continue gait training on uneven surfaces, functional strengthening and safety, balance retraining, continue cues for postural correction for improved function and decreased pain.
--- NOTE | 2022-02-02 10:52 | PT-OP ANOTE ---
Adelaide called to cancel same day due to illness.
--- NOTE | 2022-02-04 12:16 | PT.OTN ---
Current Diagnoses Difficulty in walking, not elsewhere classified (02/04/22) Weakness (02/04/22) History of falling (02/04/22) Physical Therapy Treatment Note PT-OP-A Visit Information Start: 05/28/19 08:11 Freq: Status: Active Protocol: Document 02/04/22 10:34 AW (Rec: 02/04/22 12:13 AW [id number]) Out-Patient Physical Therapy Visit Information Visit Information Visit Type Treatment Note Visit Start Time 10:33 Visit Stop Time 11:15 Total Visit Minutes 42 Visit Number 160 Precautions Precautions Seizure disorder memory dysfunction PT-OP-B Current Condition Start: 05/28/19 08:11 Freq: Status: Active Protocol: Document 06/04/20 11:15 SAK (Rec: 06/05/20 16:34 SAK [id number]) Current Condition History of Current Condition Onset Date 2014 Current Complaints weakness, requires assistance with all mobility and household tasks History of Current Condition Reports that she suffered a stroke in 2014 after surgery for brain aneurysm. CVA caused weakness on the left side of her body, gait and balance difficulty, seizures. PT-OP-C Subjective Start: 05/28/19 08:11 Freq: Status: Active Protocol: Document 02/04/22 10:34 AW (Rec: 02/04/22 12:13 AW [id number]) OP-PT Subjective Patient Comments Patient Comments Adelaide went to [employer] a few days ago and walked from [place]. It was challenging but she managed it . She is feeling extra sore today but willing to work hard . PT-OP-D Balance Start: 05/28/19 08:11 Freq: Status: Active Protocol: Document 05/29/19 14:30 SAK (Rec: 05/30/19 14:24 SAK [id number]) OP-PT Balance Assessment Sitting Balance Static Sitting Balance Ability Good Dynamic Sitting Balance Ability Fair Standing Balance Static Standing Balance Ability Good Dynamic Standing Balance Ability Fair Device Used [facility] right Tinetti Balance Assessment Sitting Balance Sitting Balance Steady, safe Arising from Chair Attempts to Arise Able, requires >1 attempt Standing Balance Immediate Standing Balance Steady with support Standing Balance Steady, wide stance Nudged Response Begins to fall Standing with Eyes Closed Unsteady Turning Step Pattern Turning 360 Degrees Discontinuous steps Stability Turning 360 Degrees Unsteady, grabs/staggers Sitting Down Sitting Down Uses arms or unsteady Gait and Step Initiation of Gait Hesitancy, mult. attempts Right Foot Step Length Does not pass stance ft. Right Foot Step Height Does not clear floor Left Foot Step Length Does not pass stance foot Left Foot Step Height Does not clear floor Step Description Step Symmetry Step length not equal Gait Description Path Description Mild/moderate deviation Trunk Description Marked sway or uses aide Walking Stance Heels apart Scoring and Interpretation Tinetti Composite Score (points) 6 Interpretation of Scores High risk for falls(< 19) Herrera Fall Scale Copyright Permission PT-OP-E Functional Tests Start: 05/28/19 08:11 Freq: Status: Active Protocol: Document 05/14/21 10:50 AMH (Rec: 05/14/21 11:08 AMH [id number]) Functional Tests 6 Minute Walk Test Distance 169ft Device Used spc, TB wrapping Comments pt has headache today and feels that may have slowed her down. Timed Up and Go (TUG) Score 107 seconds PT-OP-G Mobility & Gait Start: 05/28/19 08:11 Freq: Status: Active Protocol: Document 05/26/20 11:15 SAK (Rec: 05/26/20 17:04 [facility] [id number]) OP Mobility Evaluation Bed Mobility Rolling min assist to right CGA to left Supine to and from Sit min assist to right CGA to left Transfers Sit to Stand CGA to min assist without UE use Bed to Chair Transfers requires use of right UE but able to do with SBA Floor Transfers unable PT-OP-H Neuro Start: 05/28/19 08:11 Freq: Status: Active Protocol: Document 05/29/19 14:30 SAK (Rec: 05/30/19 14:24 SAK [id number]) Sensation Evaluation Gross Sensation Gross Sensation Left UE Impaired,Left LE Impaired Sensation Description Paresthesia,Numbness Coordination Evaluation Lower Extremity Tests Left Alternate Heel to Knee; Heel to Toe Test Moderate Impairment Heel on Boles Test Moderate Impairment Foot Tapping Test Moderate Impairment PT-OP-K Range of Motion Start: 05/28/19 08:11 Freq: Status: Active Protocol: Document 05/26/20 11:15 SAK (Rec: 05/26/20 17:04 SAK [id number]) Hip Goniometric Range of Motion Hip jake Hip ROM WFL Yes Comments actively right LE, passively left LE Knee Goniometric Range of Motion Knee jake Knee ROM WFL Yes Ankle and Foot Goniometric Range of Motion Ankle and Foot Left Passive Ankle/Foot ROM WFL No Left Active Ankle/Foot ROM WFL No PT-OP-M Strength Start: 05/28/19 08:11 Freq: Status: Active Protocol: Document 05/26/20 11:15 SAK (Rec: 05/26/20 17:04 SAK [id number]) Hip Strength Hip Manual Muscle Testing Left Flexion (L2) 3- Fair- Extension (S1) 2 Poor Abduction 2+ Poor+ External Rotation 3- Fair- Internal Rotation 3+ Fair+ Right Flexion (L2) 4 Good Extension (S1) 4- Good- Abduction 4 Good External Rotation 3+ Fair+ Internal Rotation 4- Good- PT-OP-Q Treatments Start: 05/28/19 08:11 Freq: Status: Active Protocol: Document 02/04/22 10:34 AW (Rec: 02/04/22 12:13 AW [id number]) Therapeutic Exercises Supine Exercises gastroc stretch Supine Exercise Name manual stretch calf Side left Equipment Used in sitting pre-gait Sitting Exercises HS stretch Reps/Minutes 2x30 Comments manual Therapeutic Activity Therapeutic Activity pre-gait wt shifts, steps Comments wt shifts during standing rest breaks Gait Training Gait Activity outdoor Device Used single point cane, none Level of Assistance CGA, cues Surface sidewalk concrete, gravel with incline Distance/Duration front door, outside bldg, to gravel patch/picnic Treatment Focus wt shifts, LE alignment, increasing height difference, safety Comments Used SPC for most of gait, but able to ambulate approx 40' on level sidewalk without device. Incorporated transitions to grass with change in elevation with cane. Included gravel incline to/ from picnic table with SPC and CGA (occ min A to ascend) PT-OP-R Modalities Start: 05/28/19 08:11 Freq: Status: Active Protocol: Document 12/29/20 10:30 SP (Rec: 12/29/20 11:44 SP [id number]) Electric Stimulation Electric Stimulation Functional Electric Stimulation Body Location L hand/ forearm extensors Duration (Minutes) 2 Patient Position Sitting Comments NMES- education on placement of pad for muscular feedback extension based- check self placement understanding. PT-OP-T Assessment and Plan Start: 05/28/19 08:11 Freq: Status: Active Protocol: Document 02/04/22 10:34 AW (Rec: 02/04/22 12:13 AW [id number]) Physical Therapy Assessment Goals Five Impairment gait speed not adequate for safe community ambulation Jail Goal (LTG) Patient able to ambulate 300' in 6 min. TUG score no greater than 30 sec 06/02/20: 134' 08/28/20: 144', likely not as high due to new shoes and wearing old AFO because fits better in new shoes. Requires level 4 theraband for derotation of left LE into more neutral position for gait . 09/19/20: 146 ft 6 min w/ QC and Tb wrapping to LLE. 11/13/20: 153 ft CG w/ SPC 2>3 pt gait w/out metronome w/ reported L glut/ lateral leg burn pain, 2 step brief stand breaks. 11/24/20: progressing 173.7 ft using SPC, predominently 2 pt gait. TUG score 59 sec using SP 01/27/21: TUG 55 sec. , 6 min walk test 199.9 ft with SPC 03/19/21: 6 min walk test 165' , TUG 1:20. Continue with use of theraband for derotation of excess ER left LE with gait . 04/16/21: 6MWT 190 ft w/ SPC and TB wrapping assist hip IR. 04/23/21: 6MWT 181 ftw/ SPC and TB wrapping 06/25/21: 6MWT 180 ft with SPC and TB wrapping. TU sec 09/16/21 - average gait speed 0 .14 m/s on 6MWT which pt completed with no AD (AFO only ). 12/23/21: most recent 6 min walk test 159 ft with no theraband derotation wrap and no assistive device LTG Duration 03/26/22 Four Impairment requires assistance with bed mobility and transfers Short Term Goal (STG) Patient will be able to perform all bed mobility independently to improve her functional independence. 10/31/19: good goal progress 06/02/20:inconsistent, but min assist most times 11/24/20: Met goal: pt is independent in supine>sit. STG Duration goal met Jail Goal (LTG) Patient will be able to perform a floor transfer with SB to min assist. 5x sit to stand score in no more than 15 sec as measure of functional strength for transfers 10/31/19: max assist today 01/02/20: has not been willing to try since 10/31/19 06/02/21: does not feel strong enough to try yet. 06/25/21: 08/28/20: max assistance required 12/02/20: remains at max assist , not recently willing to attempt floor transfer. 5x sit to stand score 26 seconds 01/27/21: not tried recently. 03/24/21: 5x sit to stand 25 sec. No floor transfer today 06/25/21: 5x sit to stand 24 sec. Patient didn't feel up to doing floor transfer, remains a concern 09/16/21: Pt willing to work on floor transfers but demonstrates a great deal of fear avoidance. 12/23/21: 5 Time Sit to Stand today in 30.4 seconds from standard height chair with no use of RUE LTG Duration 03/26/22 Three Impairment weakness left UE and LE s/p CVA Jail Goal (LTG) Improve functional strength in left LE, as evidenced by ability to move from sit > < stand without use of UE's. 10/31/19: OT starts tomorrow. Good progress with sit to stand, though mostly using right UE and LE 01/02/20: Improving ability to perform, able to increase weight-bearing through left LE with cues, but still some use of right UE 05/26/20: With manual and visual feedback patient able to transfer sit to stand with only CG A. 08/28/20: inconsistent ability to move sit to stand without using UE's, but able to do transfer without physical assistance 11/24/20: Goal Met 01/27/21: more difficulty recently, having to use hands. Goal reactivated. 03/24/21: difficulty motor planning and performing sit to stand today. 06/25/21: patient becomes frustrated with sit to stand transfers as she expresses she feels she has a hard time remembering how to do it, has to use right UE 09/16/21 Pt completes sit to stand x 5 today without use of RUE from std height chair. LTG Duration goal met Two Impairment balance dysfunction with high risk for falls Boiling Off [place]inder Goal (LTG) Improve balance as evidenced by improvement in Tinnetti balance and gait score to low fall risk range to improve safety in the home and community. 10/31/19: remains high risk for falls 01/02/20: some improvement but still in high risk category 05/26/20: Tinetti score in high risk category 08/28/20: moderate risk for falls 12/02/20: remains in moderate risk for falls. 01/27/21: moderate risk for falls 03/24/21: no significant change noted today but again having poor day. 06/25/21: Moderate risk for falls, though no reported falls over past few months. 09/16/21 No change 12/23/21: improved by 3 points LTG Duration 03/26/22 One Impairment requires armaan-walker for gait, limited to household gait Boiling Off [place] Goal (LTG) Patient able to ambulate with least restrictive device for functional community distances to improve her functional independence and quality of life. 10/30/19: no progress due to Covid 19. 11/02/19: able to ambulate with quad cane but with very slow speed, household distances, very short community distances . 05/26/20: Now able to ambulate with use of single point cane and use of L4 theraband wrapped around left LE to facilitate left LE internal rotation for improved alignment. Patient unable to don the theraband on her own. Gait is for short distances and very slow at 39 ft in 2 min. 08/28/20: has demonstrated improved gait ability, still using theraband for derotation of LE for more neutral position. Able to consistenly use quad cane and is increasing stride length especially with cues. Now able to ascend and descend 4 stairs with min assist using railing. Mod assist on 6 stairs. 12/02/20: Patient ambulating with SPC, mostly household but some community distances, improved gait alignment with use of theraband for improved alignment. Patient not consistently able to ambulate community distances due to pain in her left LE, and lack of neurological control left LE. Patient may benefit from modification to her current AFO or fabrication of new AFO. 173 ft in 6 minutes 01/27/21: using SPC. Limitations due to left foot, knee and hip pain, right wrist pain 6 min walk test improved to 199.9 feet today 03/24/21: slower 6 min walk test today as above. Has had modification to her AFO with some improvement in her function, but had poor day today. 06/25/21: 180' on 6 min walk test, patient reports left knee feeling wonky, and right UE still painful due to surgery' having stitches out today. Also c/o lack of caregiver recently has limited her walking, no outings. Will try again next session. 09/16/21: Pt completes 6MWT without cane today/ Average gait speed 0.14 12/23/21: Adelaide is now able to ambulate indoors with no assistive device. Outdoors on level surfaces with no device with CGA, uneven surfaces requires cane and CG to mod assist. Continues to improve. LTG Duration 03/26/22 Assessment Summary Assessment Adelaide arrived fatigued and sore but ready to put in good effort in therapy. She walked on concrete (part distance with no cane), on grassy surfaces with short curbs, and on gravel incline. Good level of challenge today and pt remains very motivated. Physical Therapy Plan Frequency and Duration Frequency of Treatment 2x/Week Plan of Care Start Date 12/23/21 Plan of Care End Date 03/25/22 Therapeutic Interventions Therapeutic Interventions Aquatic Therapy,Balance Training,Gait Training,Home Exercise Program,Neuromuscular Re-education,Orthotic/ Prosthetic Management,Patient/ Caregiver Education,Self-Care/ Home Management,Taping, Therapeutic Activities, Therapeutic Exercises Modalities Cold Pack/Ice Massage,Hot Packs Next Visit Focus/Plan Next Note Type Treatment Note Next Visit Plan Continue gait training on uneven surfaces, functional strengthening and safety, balance retraining, continue cues for postural correction for improved function and decreased pain.
--- NOTE | 2022-02-09 11:20 | PT.OTN ---
Current Diagnoses Difficulty in walking, not elsewhere classified (02/09/22) Weakness (02/09/22) History of falling (02/09/22) Physical Therapy Treatment Note PT-OP-A Visit Information Start: 05/28/19 08:11 Freq: Status: Active Protocol: Document 02/09/22 09:02 AW (Rec: 02/09/22 11:20 AW [id number]) Out-Patient Physical Therapy Visit Information Visit Information Visit Type Treatment Note Visit Start Time 10:30 Visit Stop Time 11:15 Total Visit Minutes 45 Visit Number 161 Precautions Precautions Seizure disorder memory dysfunction PT-OP-B Current Condition Start: 05/28/19 08:11 Freq: Status: Active Protocol: Document 06/04/20 11:15 SAK (Rec: 06/05/20 16:34 SAK [id number]) Current Condition History of Current Condition Onset Date 2014 Current Complaints weakness, requires assistance with all mobility and household tasks History of Current Condition Reports that she suffered a stroke in 2014 after surgery for brain aneurysm. CVA caused weakness on the left side of her body, gait and balance difficulty, seizures. PT-OP-C Subjective Start: 05/28/19 08:11 Freq: Status: Active Protocol: Document 02/09/22 09:02 AW (Rec: 02/09/22 11:20 AW [id number]) OP-PT Subjective Patient Comments Patient Comments Adelaide is in the beginning stages of a plan to move to [place]. She is excited to be closer to family but a little bit worried about leaving her support system here. PT-OP-D Balance Start: 05/28/19 08:11 Freq: Status: Active Protocol: Document 05/29/19 14:30 SAK (Rec: 05/30/19 14:24 SAK [id number]) OP-PT Balance Assessment Sitting Balance Static Sitting Balance Ability Good Dynamic Sitting Balance Ability Fair Standing Balance Static Standing Balance Ability Good Dynamic Standing Balance Ability Fair Device Used hemiwalker right Tinetti Balance Assessment Sitting Balance Sitting Balance Steady, safe Arising from Chair Attempts to Arise Able, requires >1 attempt Standing Balance Immediate Standing Balance Steady with support Standing Balance Steady, wide stance Nudged Response Begins to fall Standing with Eyes Closed Unsteady Turning Step Pattern Turning 360 Degrees Discontinuous steps Stability Turning 360 Degrees Unsteady, grabs/staggers Sitting Down Sitting Down Uses arms or unsteady Gait and Step Initiation of Gait Hesitancy, mult. attempts Right Foot Step Length Does not pass stance ft. Right Foot Step Height Does not clear floor Left Foot Step Length Does not pass stance foot Left Foot Step Height Does not clear floor Step Description Step Symmetry Step length not equal Gait Description Path Description Mild/moderate deviation Trunk Description Marked sway or uses aide Walking Stance Heels apart Scoring and Interpretation Tinetti Composite Score (points) 6 Interpretation of Scores High risk for falls(< 19) Herrera Fall Scale Copyright Permission PT-OP-E Functional Tests Start: 05/28/19 08:11 Freq: Status: Active Protocol: Document 05/14/21 10:50 AMH (Rec: 05/14/21 11:08 AMH [id number]) Functional Tests 6 Minute Walk Test Distance 169ft Device Used spc, TB wrapping Comments pt has headache today and feels that may have slowed her down. Timed Up and Go (TUG) Score 107 seconds PT-OP-G Mobility & Gait Start: 05/28/19 08:11 Freq: Status: Active Protocol: Document 05/26/20 11:15 SAK (Rec: 05/26/20 17:04 [facility] [id number]) OP Mobility Evaluation Bed Mobility Rolling min assist to right CGA to left Supine to and from Sit min assist to right CGA to left Transfers Sit to Stand CGA to min assist without UE use Bed to Chair Transfers requires use of right UE but able to do with SBA Floor Transfers unable PT-OP-H Neuro Start: 05/28/19 08:11 Freq: Status: Active Protocol: Document 05/29/19 14:30 SAK (Rec: 05/30/19 14:24 [facility] [id number]) Sensation Evaluation Gross Sensation Gross Sensation Left UE Impaired,Left LE Impaired Sensation Description Paresthesia,Numbness Coordination Evaluation Lower Extremity Tests Left Alternate Heel to Knee; Heel to Toe Test Moderate Impairment Heel on Boles Test Moderate Impairment Foot Tapping Test Moderate Impairment PT-OP-K Range of Motion Start: 05/28/19 08:11 Freq: Status: Active Protocol: Document 05/26/20 11:15 SAK (Rec: 05/26/20 17:04 SAK [id number]) Hip Goniometric Range of Motion Hip jake Hip ROM WFL Yes Comments actively right LE, passively left LE Knee Goniometric Range of Motion Knee jake Knee ROM WFL Yes Ankle and Foot Goniometric Range of Motion Ankle and Foot Left Passive Ankle/Foot ROM WFL No Left Active Ankle/Foot ROM WFL No PT-OP-M Strength Start: 05/28/19 08:11 Freq: Status: Active Protocol: Document 05/26/20 11:15 SAK (Rec: 05/26/20 17:04 SAK [id number]) Hip Strength Hip Manual Muscle Testing Left Flexion (L2) 3- Fair- Extension (S1) 2 Poor Abduction 2+ Poor+ External Rotation 3- Fair- Internal Rotation 3+ Fair+ Right Flexion (L2) 4 Good Extension (S1) 4- Good- Abduction 4 Good External Rotation 3+ Fair+ Internal Rotation 4- Good- PT-OP-Q Treatments Start: 05/28/19 08:11 Freq: Status: Active Protocol: Document 02/09/22 09:02 AW (Rec: 02/09/22 11:20 AW [id number]) Therapeutic Activity Therapeutic Activity pre-gait wt shifts, steps Comments wt shifts during standing rest breaks and on top of 6 step Gait Training Gait Activity outdoor Device Used single point cane, none Level of Assistance CGA, cues Surface sidewalk concrete, gravel with incline Distance/Duration front door, outside bldg, to gravel patch/picnic Treatment Focus wt shifts, LE alignment, increasing height difference, safety Comments Used SPC for most of gait, but able to ambulate approx 40' on level sidewalk without device. Incorporated transitions to grass with change in elevation with cane. Included gravel incline to/ from picnic table with SPC and CGA (occ min A to ascend) step-ups Description step-up, down Device Used in bars with min/mod contact R rail Level of Assistance CGA Surface 6 box, yoga mat Treatment Focus decreased support, weight shift, muscle activation safety Comments Up and over 6 block which is sitting on top of yoga mat x 4 passes. Blue foam placed under yoga mat x 1 pass. PT-OP-R Modalities Start: 05/28/19 08:11 Freq: Status: Active Protocol: Document 12/29/20 10:30 SP (Rec: 12/29/20 11:44 SP [id number]) Electric Stimulation Electric Stimulation Functional Electric Stimulation Body Location L hand/ forearm extensors Duration (Minutes) 2 Patient Position Sitting Comments NMES- education on placement of pad for muscular feedback extension based- check self placement understanding. PT-OP-T Assessment and Plan Start: 05/28/19 08:11 Freq: Status: Active Protocol: Document 02/09/22 09:02 AW (Rec: 02/09/22 11:20 AW [id number]) Physical Therapy Assessment Goals Five Impairment gait speed not adequate for safe community ambulation Long-Term Goal (LTG) Patient able to ambulate 300' in 6 min. TUG score no greater than 30 sec 06/02/20: 134' 08/28/20: 144', likely not as high due to new shoes and wearing old AFO because fits better in new shoes. Requires level 4 theraband for derotation of left LE into more neutral position for gait . 09/19/20: 146 ft 6 min w/ QC and Tb wrapping to LLE. 11/13/20: 153 ft CG w/ SPC 2>3 pt gait w/out metronome w/ reported L glut/ lateral leg burn pain, 2 step brief stand breaks. 11/24/20: progressing 173.7 ft using SPC, predominently 2 pt gait. TUG score 59 sec using SP 01/27/21: TUG 55 sec. , 6 min walk test 199.9 ft with SPC 03/19/21: 6 min walk test 165' , TUG 1:20. Continue with use of theraband for derotation of excess ER left LE with gait . 04/16/21: 6MWT 190 ft w/ SPC and TB wrapping assist hip IR. 04/23/21: 6MWT 181 ftw/ SPC and TB wrapping 06/25/21: 6MWT 180 ft with SPC and TB wrapping. TU sec 09/16/21 - average gait speed 0 .14 m/s on 6MWT which pt completed with no AD (AFO only ). 12/23/21: most recent 6 min walk test 159 ft with no theraband derotation wrap and no assistive device LTG Duration 03/26/22 Four Impairment requires assistance with bed mobility and transfers Short Term Goal (STG) Patient will be able to perform all bed mobility independently to improve her functional independence. 10/31/19: good goal progress 06/02/20:inconsistent, but min assist most times 11/24/20: Met goal: pt is independent in supine>sit. STG Duration goal met Long-Term Goal (LTG) Patient will be able to perform a floor transfer with SB to min assist. 5x sit to stand score in no more than 15 sec as measure of functional strength for transfers 10/31/19: max assist today 01/02/20: has not been willing to try since 10/31/19 06/02/21: does not feel strong enough to try yet. 06/25/21: 08/28/20: max assistance required 12/02/20: remains at max assist , not recently willing to attempt floor transfer. 5x sit to stand score 26 seconds 01/27/21: not tried recently. 03/24/21: 5x sit to stand 25 sec. No floor transfer today 06/25/21: 5x sit to stand 24 sec. Patient didn't feel up to doing floor transfer, remains a concern 09/16/21: Pt willing to work on floor transfers but demonstrates a great deal of fear avoidance. 12/23/21: 5 Time Sit to Stand today in 30.4 seconds from standard height chair with no use of RUE LTG Duration 03/26/22 Three Impairment weakness left UE and LE s/p CVA Long-Term Goal (LTG) Improve functional strength in left LE, as evidenced by ability to move from sit > < stand without use of UE's. 10/31/19: OT starts tomorrow. Good progress with sit to stand, though mostly using right UE and LE 01/02/20: Improving ability to perform, able to increase weight-bearing through left LE with cues, but still some use of right UE 05/26/20: With manual and visual feedback patient able to transfer sit to stand with only CG A. 08/28/20: inconsistent ability to move sit to stand without using UE's, but able to do transfer without physical assistance 11/24/20: Goal Met 01/27/21: more difficulty recently, having to use hands. Goal reactivated. 03/24/21: difficulty motor planning and performing sit to stand today. 06/25/21: patient becomes frustrated with sit to stand transfers as she expresses she feels she has a hard time remembering how to do it, has to use right UE 09/16/21 Pt completes sit to stand x 5 today without use of RUE from std height chair. LTG Duration goal met Two Impairment balance dysfunction with high risk for falls Long-Term Goal (LTG) Improve balance as evidenced by improvement in Tinnetti balance and gait score to low fall risk range to improve safety in the home and community. 10/31/19: remains high risk for falls 01/02/20: some improvement but still in high risk category 05/26/20: Tinetti score in high risk category 08/28/20: moderate risk for falls 12/02/20: remains in moderate risk for falls. 01/27/21: moderate risk for falls 03/24/21: no significant change noted today but again having poor day. 06/25/21: Moderate risk for falls, though no reported falls over past few months. 09/16/21 No change 12/23/21: improved by 3 points LTG Duration 03/26/22 One Impairment requires armaan-walker for gait, limited to household gait Long-Term Goal (LTG) Patient able to ambulate with least restrictive device for functional community distances to improve her functional independence and quality of life. 10/30/19: no progress due to Covid 19. 11/02/19: able to ambulate with quad cane but with very slow speed, household distances, very short community distances . 05/26/20: Now able to ambulate with use of single point cane and use of L4 theraband wrapped around left LE to facilitate left LE internal rotation for improved alignment. Patient unable to don the theraband on her own. Gait is for short distances and very slow at 39 ft in 2 min. 08/28/20: has demonstrated improved gait ability, still using theraband for derotation of LE for more neutral position. Able to consistenly use quad cane and is increasing stride length especially with cues. Now able to ascend and descend 4 stairs with min assist using railing. Mod assist on 6 stairs. 12/02/20: Patient ambulating with SPC, mostly household but some community distances, improved gait alignment with use of theraband for improved alignment. Patient not consistently able to ambulate community distances due to pain in her left LE, and lack of neurological control left LE. Patient may benefit from modification to her current AFO or fabrication of new AFO. 173 ft in 6 minutes 01/27/21: using SPC. Limitations due to left foot, knee and hip pain, right wrist pain 6 min walk test improved to 199.9 feet today 03/24/21: slower 6 min walk test today as above. Has had modification to her AFO with some improvement in her function, but had poor day today. 06/25/21: 180' on 6 min walk test, patient reports left knee feeling wonky, and right UE still painful due to surgery' having stitches out today. Also c/o lack of caregiver recently has limited her walking, no outings. Will try again next session. 09/16/21: Pt completes 6MWT without cane today/ Average gait speed 0.14 12/23/21: Adelaide is now able to ambulate indoors with no assistive device. Outdoors on level surfaces with no device with CGA, uneven surfaces requires cane and CG to mod assist. Continues to improve. LTG Duration 03/26/22 Assessment Summary Assessment Adelaide practiced curbs of varying heights today and continued with step ups in parallel bars with min/mod use of her right upper extremity. Step up and down are with good control today. Physical Therapy Plan Frequency and Duration Frequency of Treatment 2x/Week Plan of Care Start Date 12/23/21 Plan of Care End Date 03/25/22 Therapeutic Interventions Therapeutic Interventions Aquatic Therapy,Balance Training,Gait Training,Home Exercise Program,Neuromuscular Re-education,Orthotic/ Prosthetic Management,Patient/ Caregiver Education,Self-Care/ Home Management,Taping, Therapeutic Activities, Therapeutic Exercises Modalities Cold Pack/Ice Massage,Hot Packs Next Visit Focus/Plan Next Note Type Treatment Note Next Visit Plan Continue gait training on uneven surfaces, functional strengthening and safety, balance retraining, continue cues for postural correction for improved function and decreased pain.
--- NOTE | 2022-02-15 10:04 | PT.OTN ---
Current Diagnoses Difficulty in walking, not elsewhere classified (02/15/22) Weakness (02/15/22) History of falling (02/15/22) Physical Therapy Treatment Note PT-OP-A Visit Information Start: 05/28/19 08:11 Freq: Status: Active Protocol: Document 02/15/22 09:04 SAK (Rec: 02/15/22 10:04 SAK [id number]) Out-Patient Physical Therapy Visit Information Visit Information Visit Type Treatment Note Visit Start Time 09:05 Visit Stop Time 09:55 Total Visit Minutes 50 Visit Number 162 Precautions Precautions Seizure disorder memory dysfunction PT-OP-B Current Condition Start: 05/28/19 08:11 Freq: Status: Active Protocol: Document 06/04/20 11:15 SAK (Rec: 06/05/20 16:34 SAK [id number]) Current Condition History of Current Condition Onset Date 2014 Current Complaints weakness, requires assistance with all mobility and household tasks History of Current Condition Reports that she suffered a stroke in 2014 after surgery for brain aneurysm. CVA caused weakness on the left side of her body, gait and balance difficulty, seizures. PT-OP-C Subjective Start: 05/28/19 08:11 Freq: Status: Active Protocol: Document 02/15/22 09:04 SAK (Rec: 02/15/22 10:04 SAK [id number]) OP-PT Subjective Patient Comments Patient Comments Reports had a sharp stabbing pain between her shoulder blades and down her left side a couple days ago, cause uncertain. Looking forward to seeing Dr. Valdez end of month. PT-OP-D Balance Start: 05/28/19 08:11 Freq: Status: Active Protocol: Document 05/29/19 14:30 SAK (Rec: 05/30/19 14:24 SAK [id number]) OP-PT Balance Assessment Sitting Balance Static Sitting Balance Ability Good Dynamic Sitting Balance Ability Fair Standing Balance Static Standing Balance Ability Good Dynamic Standing Balance Ability Fair Device Used [facility] right Tinetti Balance Assessment Sitting Balance Sitting Balance Steady, safe Arising from Chair Attempts to Arise Able, requires >1 attempt Standing Balance Immediate Standing Balance Steady with support Standing Balance Steady, wide stance Nudged Response Begins to fall Standing with Eyes Closed Unsteady Turning Step Pattern Turning 360 Degrees Discontinuous steps Stability Turning 360 Degrees Unsteady, grabs/staggers Sitting Down Sitting Down Uses arms or unsteady Gait and Step Initiation of Gait Hesitancy, mult. attempts Right Foot Step Length Does not pass stance ft. Right Foot Step Height Does not clear floor Left Foot Step Length Does not pass stance foot Left Foot Step Height Does not clear floor Step Description Step Symmetry Step length not equal Gait Description Path Description Mild/moderate deviation Trunk Description Marked sway or uses aide Walking Stance Heels apart Scoring and Interpretation Tinetti Composite Score (points) 6 Interpretation of Scores High risk for falls(< 19) Herrera Fall Scale Copyright Permission PT-OP-E Functional Tests Start: 05/28/19 08:11 Freq: Status: Active Protocol: Document 05/14/21 10:50 [facility] (Rec: 05/14/21 11:08 AMH [id number]) Functional Tests 6 Minute Walk Test Distance 169ft Device Used spc, TB wrapping Comments pt has headache today and feels that may have slowed her down. Timed Up and Go (TUG) Score 107 seconds PT-OP-G Mobility & Gait Start: 05/28/19 08:11 Freq: Status: Active Protocol: Document 05/26/20 11:15 SAK (Rec: 05/26/20 17:04 [facility] [id number]) OP Mobility Evaluation Bed Mobility Rolling min assist to right CGA to left Supine to and from Sit min assist to right CGA to left Transfers Sit to Stand CGA to min assist without UE use Bed to Chair Transfers requires use of right UE but able to do with SBA Floor Transfers unable PT-OP-H Neuro Start: 05/28/19 08:11 Freq: Status: Active Protocol: Document 05/29/19 14:30 SAK (Rec: 05/30/19 14:24 [facility] [id number]) Sensation Evaluation Gross Sensation Gross Sensation Left UE Impaired,Left LE Impaired Sensation Description Paresthesia,Numbness Coordination Evaluation Lower Extremity Tests Left Alternate Heel to Knee; Heel to Toe Test Moderate Impairment Heel on Boles Test Moderate Impairment Foot Tapping Test Moderate Impairment PT-OP-K Range of Motion Start: 05/28/19 08:11 Freq: Status: Active Protocol: Document 05/26/20 11:15 SAK (Rec: 05/26/20 17:04 [facility] [id number]) Hip Goniometric Range of Motion Hip jake Hip ROM WFL Yes Comments actively right LE, passively left LE Knee Goniometric Range of Motion Knee jake Knee ROM WFL Yes Ankle and Foot Goniometric Range of Motion Ankle and Foot Left Passive Ankle/Foot ROM WFL No Left Active Ankle/Foot ROM WFL No PT-OP-M Strength Start: 05/28/19 08:11 Freq: Status: Active Protocol: Document 05/26/20 11:15 [facility] (Rec: 05/26/20 17:04 [facility] [id number]) Hip Strength Hip Manual Muscle Testing Left Flexion (L2) 3- Fair- Extension (S1) 2 Poor Abduction 2+ Poor+ External Rotation 3- Fair- Internal Rotation 3+ Fair+ Right Flexion (L2) 4 Good Extension (S1) 4- Good- Abduction 4 Good External Rotation 3+ Fair+ Internal Rotation 4- Good- PT-OP-Q Treatments Start: 05/28/19 08:11 Freq: Status: Active Protocol: Document 02/15/22 09:04 [facility] (Rec: 02/15/22 10:04 [facility] [id number]) Gait Training Gait Activity outdoor Device Used single point cane, none Level of Assistance CGA, cues Surface sidewalk concrete, gravel with incline Distance/Duration front door, outside bldg, to gravel patch/picnic Treatment Focus wt shifts, LE alignment, increasing height difference, safety Comments Used SPC for uneven parts of gait, but able to ambulate majority of level sidewalk without device; 20'x1 40'x1, 60'x1. [employer] transitions to grass with change in elevation with cane. Included gravel incline to/ from picnic table with SPC and CGA (occ min A to ascend). Manual Therapy Treatment Soft Tissue Mobilization L calf Body Location L calf, Mobilization Type Myofascial Release,Strumming, Trigger Point Release Intensity/Depth Moderate Body Position Sidelying Comments good feedback response decreased tight muscles ITB, peroneal Body Location L ITB Mobilization Type Instrument Assisted,Myofascial Release Intensity/Depth gentle> moderate> gentle pressure Body Position Sitting Comments tender to pressure, modified with feedback. Pt responded improved decrease tightness pre gait for success. PT-OP-R Modalities Start: 05/28/19 08:11 Freq: Status: Active Protocol: Document 12/29/20 10:30 SP (Rec: 12/29/20 11:44 SP [id number]) Electric Stimulation Electric Stimulation Functional Electric Stimulation Body Location L hand/ forearm extensors Duration (Minutes) 2 Patient Position Sitting Comments NMES- education on placement of pad for muscular feedback extension based- check self placement understanding. PT-OP-T Assessment and Plan Start: 05/28/19 08:11 Freq: Status: Active Protocol: Document 02/15/22 09:04 KRYSTAL (Rec: 02/15/22 10:04 [facility] [id number]) Physical Therapy Assessment Goals Five Impairment gait speed not adequate for safe community ambulation [facility]iary Goal (LTG) Patient able to ambulate 300' in 6 min. TUG score no greater than 30 sec 06/02/20: 134' 08/28/20: 144', likely not as high due to new shoes and wearing old AFO because fits better in new shoes. Requires level 4 theraband for derotation of left LE into more neutral position for gait . 09/19/20: 146 ft 6 min w/ QC and Tb wrapping to LLE. 11/13/20: 153 ft CG w/ SPC 2>3 pt gait w/out metronome w/ reported L glut/ lateral leg burn pain, 2 step brief stand breaks. 11/24/20: progressing 173.7 ft using SPC, predominently 2 pt gait. TUG score 59 sec using SP 01/27/21: TUG 55 sec. , 6 min walk test 199.9 ft with SPC 03/19/21: 6 min walk test 165' , TUG 1:20. Continue with use of theraband for derotation of excess ER left LE with gait . 04/16/21: 6MWT 190 ft w/ SPC and TB wrapping assist hip IR. 04/23/21: 6MWT 181 ftw/ SPC and TB wrapping 06/25/21: 6MWT 180 ft with SPC and TB wrapping. TU sec 09/16/21 - average gait speed 0 .14 m/s on 6MWT which pt completed with no AD (AFO only ). 12/23/21: most recent 6 min walk test 159 ft with no theraband derotation wrap and no assistive device LTG Duration 03/26/22 Four Impairment requires assistance with bed mobility and transfers Short Term Goal (STG) Patient will be able to perform all bed mobility independently to improve her functional independence. 10/31/19: good goal progress 06/02/20:inconsistent, but min assist most times 11/24/20: Met goal: pt is independent in supine>sit. STG Duration goal met Construction Assistant Goal (LTG) Patient will be able to perform a floor transfer with SB to min assist. 5x sit to stand score in no more than 15 sec as measure of functional strength for transfers 10/31/19: max assist today 01/02/20: has not been willing to try since 10/31/19 06/02/21: does not feel strong enough to try yet. 06/25/21: 08/28/20: max assistance required 12/02/20: remains at max assist , not recently willing to attempt floor transfer. 5x sit to stand score 26 seconds 01/27/21: not tried recently. 03/24/21: 5x sit to stand 25 sec. No floor transfer today 06/25/21: 5x sit to stand 24 sec. Patient didn't feel up to doing floor transfer, remains a concern 09/16/21: Pt willing to work on floor transfers but demonstrates a great deal of fear avoidance. 12/23/21: 5 Time Sit to Stand today in 30.4 seconds from standard height chair with no use of RUE LTG Duration 03/26/22 Three Impairment weakness left UE and LE s/p CVA [facility]iary Goal (LTG) Improve functional strength in left LE, as evidenced by ability to move from sit > < stand without use of UE's. 10/31/19: OT starts tomorrow. Good progress with sit to stand, though mostly using right UE and LE 01/02/20: Improving ability to perform, able to increase weight-bearing through left LE with cues, but still some use of right UE 05/26/20: With manual and visual feedback patient able to transfer sit to stand with only CG A. 08/28/20: inconsistent ability to move sit to stand without using UE's, but able to do transfer without physical assistance 11/24/20: Goal Met 01/27/21: more difficulty recently, having to use hands. Goal reactivated. 03/24/21: difficulty motor planning and performing sit to stand today. 06/25/21: patient becomes frustrated with sit to stand transfers as she expresses she feels she has a hard time remembering how to do it, has to use right UE 09/16/21 Pt completes sit to stand x 5 today without use of RUE from std height chair. LTG Duration goal met Two Impairment balance dysfunction with high risk for falls [facility]itentiary Goal (LTG) Improve balance as evidenced by improvement in Tinnetti balance and gait score to low fall risk range to improve safety in the home and community. 10/31/19: remains high risk for falls 01/02/20: some improvement but still in high risk category 05/26/20: Tinetti score in high risk category 08/28/20: moderate risk for falls 12/02/20: remains in moderate risk for falls. 01/27/21: moderate risk for falls 03/24/21: no significant change noted today but again having poor day. 06/25/21: Moderate risk for falls, though no reported falls over past few months. 09/16/21 No change 12/23/21: improved by 3 points LTG Duration 03/26/22 One Impairment requires armaan-walker for gait, limited to household gait Construction Assistant Goal (LTG) Patient able to ambulate with least restrictive device for functional community distances to improve her functional independence and quality of life. 10/30/19: no progress due to Covid 19. 11/02/19: able to ambulate with quad cane but with very slow speed, household distances, very short community distances . 05/26/20: Now able to ambulate with use of single point cane and use of L4 theraband wrapped around left LE to facilitate left LE internal rotation for improved alignment. Patient unable to don the theraband on her own. Gait is for short distances and very slow at 39 ft in 2 min. 08/28/20: has demonstrated improved gait ability, still using theraband for derotation of LE for more neutral position. Able to consistenly use quad cane and is increasing stride length especially with cues. Now able to ascend and descend 4 stairs with min assist using railing. Mod assist on 6 stairs. 12/02/20: Patient ambulating with SPC, mostly household but some community distances, improved gait alignment with use of theraband for improved alignment. Patient not consistently able to ambulate community distances due to pain in her left LE, and lack of neurological control left LE. Patient may benefit from modification to her current AFO or fabrication of new AFO. 173 ft in 6 minutes 01/27/21: using SPC. Limitations due to left foot, knee and hip pain, right wrist pain 6 min walk test improved to 199.9 feet today 03/24/21: slower 6 min walk test today as above. Has had modification to her AFO with some improvement in her function, but had poor day today. 06/25/21: 180' on 6 min walk test, patient reports left knee feeling wonky, and right UE still painful due to surgery' having stitches out today. Also c/o lack of caregiver recently has limited her walking, no outings. Will try again next session. 09/16/21: Pt completes 6MWT without cane today/ Average gait speed 0.14 12/23/21: Adelaide is now able to ambulate indoors with no assistive device. Outdoors on level surfaces with no device with CGA, uneven surfaces requires cane and CG to mod assist. Continues to improve. LTG Duration 03/26/22 Assessment Summary Assessment Adelaide's confidence and functional ability with gait outside continues to improve with increased time with no device on level sidewalk and improved safety of gait with uneven surfaces, with cues to keep cane close for increased support. Physical Therapy Plan Frequency and Duration Frequency of Treatment 2x/Week Duration of treatment (weeks) 12 Plan of Care Start Date 12/23/21 Plan of Care End Date 03/25/22 Therapeutic Interventions Therapeutic Interventions Aquatic Therapy,Balance Training,Gait Training,Home Exercise Program,Neuromuscular Re-education,Orthotic/ Prosthetic Management,Patient/ Caregiver Education,Self-Care/ Home Management,Taping, Therapeutic Activities, Therapeutic Exercises Modalities Cold Pack/Ice Massage,Hot Packs Next Visit Focus/Plan Next Note Type Treatment Note Next Visit Plan Continue gait training on uneven surfaces, functional strengthening and safety, balance retraining, continue cues for postural correction for improved function and decreased pain.
--- NOTE | 2022-02-24 10:33 | PT.OTN ---
Current Diagnoses Difficulty in walking, not elsewhere classified (02/24/22) Weakness (02/24/22) History of falling (02/24/22) Physical Therapy Treatment Note PT-OP-A Visit Information Start: 05/28/19 08:11 Freq: Status: Active Protocol: Document 02/24/22 08:58 AW (Rec: 02/24/22 10:33 AW [id number]) Out-Patient Physical Therapy Visit Information Visit Information Visit Type Treatment Note Visit Start Time 09:58 Visit Stop Time 10:29 Total Visit Minutes 31 Visit Number 163 Precautions Precautions Seizure disorder memory dysfunction PT-OP-B Current Condition Start: 05/28/19 08:11 Freq: Status: Active Protocol: Document 06/04/20 11:15 SAK (Rec: 06/05/20 16:34 SAK [id number]) Current Condition History of Current Condition Onset Date 2014 Current Complaints weakness, requires assistance with all mobility and household tasks History of Current Condition Reports that she suffered a stroke in 2014 after surgery for brain aneurysm. CVA caused weakness on the left side of her body, gait and balance difficulty, seizures. PT-OP-C Subjective Start: 05/28/19 08:11 Freq: Status: Active Protocol: Document 02/24/22 08:58 AW (Rec: 02/24/22 10:33 AW [id number]) OP-PT Subjective Patient Comments Patient Comments Adelaide slipped from a chair a few days ago and had to call EMS to get up. States she would like to resume workin jose floor transfers but is too sore today. PT-OP-D Balance Start: 05/28/19 08:11 Freq: Status: Active Protocol: Document 05/29/19 14:30 SAK (Rec: 05/30/19 14:24 SAK [id number]) OP-PT Balance Assessment Sitting Balance Static Sitting Balance Ability Good Dynamic Sitting Balance Ability Fair Standing Balance Static Standing Balance Ability Good Dynamic Standing Balance Ability Fair Device Used hemiwalker right Tinetti Balance Assessment Sitting Balance Sitting Balance Steady, safe Arising from Chair Attempts to Arise Able, requires >1 attempt Standing Balance Immediate Standing Balance Steady with support Standing Balance Steady, wide stance Nudged Response Begins to fall Standing with Eyes Closed Unsteady Turning Step Pattern Turning 360 Degrees Discontinuous steps Stability Turning 360 Degrees Unsteady, grabs/staggers Sitting Down Sitting Down Uses arms or unsteady Gait and Step Initiation of Gait Hesitancy, mult. attempts Right Foot Step Length Does not pass stance ft. Right Foot Step Height Does not clear floor Left Foot Step Length Does not pass stance foot Left Foot Step Height Does not clear floor Step Description Step Symmetry Step length not equal Gait Description Path Description Mild/moderate deviation Trunk Description Marked sway or uses aide Walking Stance Heels apart Scoring and Interpretation Tinetti Composite Score (points) 6 Interpretation of Scores High risk for falls(< 19) Herrera Fall Scale Copyright Permission PT-OP-E Functional Tests Start: 05/28/19 08:11 Freq: Status: Active Protocol: Document 05/14/21 10:50 [facility] (Rec: 05/14/21 11:08 [facility] [id number]) Functional Tests 6 Minute Walk Test Distance 169ft Device Used spc, TB wrapping Comments pt has headache today and feels that may have slowed her down. Timed Up and Go (TUG) Score 107 seconds PT-OP-G Mobility & Gait Start: 05/28/19 08:11 Freq: Status: Active Protocol: Document 05/26/20 11:15 SAK (Rec: 05/26/20 17:04 [facility] [id number]) OP Mobility Evaluation Bed Mobility Rolling min assist to right CGA to left Supine to and from Sit min assist to right CGA to left Transfers Sit to Stand CGA to min assist without UE use Bed to Chair Transfers requires use of right UE but able to do with SBA Floor Transfers unable PT-OP-H Neuro Start: 05/28/19 08:11 Freq: Status: Active Protocol: Document 05/29/19 14:30 SAK (Rec: 05/30/19 14:24 [facility] [id number]) Sensation Evaluation Gross Sensation Gross Sensation Left UE Impaired,Left LE Impaired Sensation Description Paresthesia,Numbness Coordination Evaluation Lower Extremity Tests Left Alternate Heel to Knee; Heel to Toe Test Moderate Impairment Heel on Boles Test Moderate Impairment Foot Tapping Test Moderate Impairment PT-OP-K Range of Motion Start: 05/28/19 08:11 Freq: Status: Active Protocol: Document 05/26/20 11:15 SAK (Rec: 05/26/20 17:04 SAK [id number]) Hip Goniometric Range of Motion Hip jake Hip ROM WFL Yes Comments actively right LE, passively left LE Knee Goniometric Range of Motion Knee jake Knee ROM WFL Yes Ankle and Foot Goniometric Range of Motion Ankle and Foot Left Passive Ankle/Foot ROM WFL No Left Active Ankle/Foot ROM WFL No PT-OP-M Strength Start: 05/28/19 08:11 Freq: Status: Active Protocol: Document 05/26/20 11:15 SAK (Rec: 05/26/20 17:04 SAK [id number]) Hip Strength Hip Manual Muscle Testing Left Flexion (L2) 3- Fair- Extension (S1) 2 Poor Abduction 2+ Poor+ External Rotation 3- Fair- Internal Rotation 3+ Fair+ Right Flexion (L2) 4 Good Extension (S1) 4- Good- Abduction 4 Good External Rotation 3+ Fair+ Internal Rotation 4- Good- PT-OP-Q Treatments Start: 05/28/19 08:11 Freq: Status: Active Protocol: Document 02/24/22 08:58 AW (Rec: 02/24/22 10:33 AW [id number]) Therapeutic Exercises Standing Exercises sit stands w/ AFO donned Standing Exercise Name no RUE assist Equipment Used outside bench Reps/Minutes x10 Comments verbal and manual cues for LLE positioning, weight shift toward left Therapeutic Activity Therapeutic Activity pre-gait wt shifts, steps Comments wt shifts during standing rest breaks on concrete, gravel, and grass Gait Training Gait Activity outdoor Device Used single point cane, none Level of Assistance CGA, cues Surface sidewalk concrete, gravel with incline Distance/Duration front door, outside bldg, to gravel patch/picnic Treatment Focus wt shifts, LE alignment, increasing height difference, safety Comments Used SPC for uneven parts of gait, but able to ambulate majority of level sidewalk without device; Incorporated transitions to grass with change in elevation with cane. Included gravel incline to/ from picnic table with SPC and CGA (occ min A to ascend). PT-OP-R Modalities Start: 05/28/19 08:11 Freq: Status: Active Protocol: Document 12/29/20 10:30 SP (Rec: 12/29/20 11:44 SP [id number]) Electric Stimulation Electric Stimulation Functional Electric Stimulation Body Location L hand/ forearm extensors Duration (Minutes) 2 Patient Position Sitting Comments NMES- education on placement of pad for muscular feedback extension based- check self placement understanding. PT-OP-T Assessment and Plan Start: 05/28/19 08:11 Freq: Status: Active Protocol: Document 02/24/22 08:58 AW (Rec: 02/24/22 10:33 AW [id number]) Physical Therapy Assessment Goals Five Impairment gait speed not adequate for safe community ambulation Produce Clerk Goal (LTG) Patient able to ambulate 300' in 6 min. TUG score no greater than 30 sec 06/02/20: 134' 08/28/20: 144', likely not as high due to new shoes and wearing old AFO because fits better in new shoes. Requires level 4 theraband for derotation of left LE into more neutral position for gait . 09/19/20: 146 ft 6 min w/ QC and Tb wrapping to LLE. 11/13/20: 153 ft CG w/ SPC 2>3 pt gait w/out metronome w/ reported L glut/ lateral leg burn pain, 2 step brief stand breaks. 11/24/20: progressing 173.7 ft using SPC, predominently 2 pt gait. TUG score 59 sec using SP 01/27/21: TUG 55 sec. , 6 min walk test 199.9 ft with SPC 03/19/21: 6 min walk test 165' , TUG 1:20. Continue with use of theraband for derotation of excess ER left LE with gait . 04/16/21: 6MWT 190 ft w/ SPC and TB wrapping assist hip IR. 04/23/21: 6MWT 181 ftw/ SPC and TB wrapping 06/25/21: 6MWT 180 ft with SPC and TB wrapping. TU sec 09/16/21 - average gait speed 0 .14 m/s on 6MWT which pt completed with no AD (AFO only ). 12/23/21: most recent 6 min walk test 159 ft with no theraband derotation wrap and no assistive device LTG Duration 03/26/22 Four Impairment requires assistance with bed mobility and transfers Short Term Goal (STG) Patient will be able to perform all bed mobility independently to improve her functional independence. 10/31/19: good goal progress 06/02/20:inconsistent, but min assist most times 11/24/20: Met goal: pt is independent in supine>sit. STG Duration goal met Produce Clerk Goal (LTG) Patient will be able to perform a floor transfer with SB to min assist. 5x sit to stand score in no more than 15 sec as measure of functional strength for transfers 10/31/19: max assist today 01/02/20: has not been willing to try since 10/31/19 06/02/21: does not feel strong enough to try yet. 06/25/21: 08/28/20: max assistance required 12/02/20: remains at max assist , not recently willing to attempt floor transfer. 5x sit to stand score 26 seconds 01/27/21: not tried recently. 03/24/21: 5x sit to stand 25 sec. No floor transfer today 06/25/21: 5x sit to stand 24 sec. Patient didn't feel up to doing floor transfer, remains a concern 09/16/21: Pt willing to work on floor transfers but demonstrates a great deal of fear avoidance. 12/23/21: 5 Time Sit to Stand today in 30.4 seconds from standard height chair with no use of RUE LTG Duration 03/26/22 Three Impairment weakness left UE and LE s/p CVA [facility] Goal (LTG) Improve functional strength in left LE, as evidenced by ability to move from sit > < stand without use of UE's. 10/31/19: OT starts tomorrow. Good progress with sit to stand, though mostly using right UE and LE 01/02/20: Improving ability to perform, able to increase weight-bearing through left LE with cues, but still some use of right UE 05/26/20: With manual and visual feedback patient able to transfer sit to stand with only CG A. 08/28/20: inconsistent ability to move sit to stand without using UE's, but able to do transfer without physical assistance 11/24/20: Goal Met 01/27/21: more difficulty recently, having to use hands. Goal reactivated. 03/24/21: difficulty motor planning and performing sit to stand today. 06/25/21: patient becomes frustrated with sit to stand transfers as she expresses she feels she has a hard time remembering how to do it, has to use right UE 09/16/21 Pt completes sit to stand x 5 today without use of RUE from std height chair. LTG Duration goal met Two Impairment balance dysfunction with high risk for falls [facility] Goal (LTG) Improve balance as evidenced by improvement in Tinnetti balance and gait score to low fall risk range to improve safety in the home and community. 10/31/19: remains high risk for falls 01/02/20: some improvement but still in high risk category 05/26/20: Tinetti score in high risk category 08/28/20: moderate risk for falls 12/02/20: remains in moderate risk for falls. 01/27/21: moderate risk for falls 03/24/21: no significant change noted today but again having poor day. 06/25/21: Moderate risk for falls, though no reported falls over past few months. 09/16/21 No change 12/23/21: improved by 3 points LTG Duration 03/26/22 One Impairment requires armaan-walker for gait, limited to household gait Produce Clerk Goal (LTG) Patient able to ambulate with least restrictive device for functional community distances to improve her functional independence and quality of life. 10/30/19: no progress due to Covid 19. 11/02/19: able to ambulate with quad cane but with very slow speed, household distances, very short community distances . 05/26/20: Now able to ambulate with use of single point cane and use of L4 theraband wrapped around left LE to facilitate left LE internal rotation for improved alignment. Patient unable to don the theraband on her own. Gait is for short distances and very slow at 39 ft in 2 min. 08/28/20: has demonstrated improved gait ability, still using theraband for derotation of LE for more neutral position. Able to consistenly use quad cane and is increasing stride length especially with cues. Now able to ascend and descend 4 stairs with min assist using railing. Mod assist on 6 stairs. 12/02/20: Patient ambulating with SPC, mostly household but some community distances, improved gait alignment with use of theraband for improved alignment. Patient not consistently able to ambulate community distances due to pain in her left LE, and lack of neurological control left LE. Patient may benefit from modification to her current AFO or fabrication of new AFO. 173 ft in 6 minutes 01/27/21: using SPC. Limitations due to left foot, knee and hip pain, right wrist pain 6 min walk test improved to 199.9 feet today 03/24/21: slower 6 min walk test today as above. Has had modification to her AFO with some improvement in her function, but had poor day today. 06/25/21: 180' on 6 min walk test, patient reports left knee feeling wonky, and right UE still painful due to surgery' having stitches out today. Also c/o lack of caregiver recently has limited her walking, no outings. Will try again next session. 09/16/21: Pt completes 6MWT without cane today/ Average gait speed 0.14 12/23/21: Adelaide is now able to ambulate indoors with no assistive device. Outdoors on level surfaces with no device with CGA, uneven surfaces requires cane and CG to mod assist. Continues to improve. LTG Duration 03/26/22 Assessment Summary Assessment Adelaide arrived late today and reported a recent fall from her chair. She feels too sore to work on floor transfers today but would like to do so in upcoming sessions. Good tolerance for outside gait on sidewalk, grass, and gravel ( cane for uneven surfaces but otherwise without AD.) Physical Therapy Plan Frequency and Duration Frequency of Treatment 2x/Week Duration of treatment (weeks) 12 Plan of Care Start Date 12/23/21 Plan of Care End Date 03/17/22 Therapeutic Interventions Therapeutic Interventions Aquatic Therapy,Balance Training,Gait Training,Home Exercise Program,Neuromuscular Re-education,Orthotic/ Prosthetic Management,Patient/ Caregiver Education,Self-Care/ Home Management,Taping, Therapeutic Activities, Therapeutic Exercises Modalities Cold Pack/Ice Massage,Hot Packs Next Visit Focus/Plan Next Note Type Treatment Note Next Visit Plan Continue gait training on uneven surfaces, functional strengthening and safety, balance retraining, continue cues for postural correction for improved function and decreased pain.
--- NOTE | 2022-03-02 12:15 | PT.OTN ---
Current Diagnoses Difficulty in walking, not elsewhere classified (03/02/22) Weakness (03/02/22) History of falling (03/02/22) Physical Therapy Treatment Note PT-OP-A Visit Information Start: 05/28/19 08:11 Freq: Status: Active Protocol: Document 03/02/22 11:15 SAK (Rec: 03/02/22 12:15 [facility] [id number]) Out-Patient Physical Therapy Visit Information Visit Information Visit Type Treatment Note Visit Start Time 11:16 Visit Stop Time 12:02 Total Visit Minutes 45 Visit Number 164 Precautions Precautions Seizure disorder memory dysfunction PT-OP-B Current Condition Start: 05/28/19 08:11 Freq: Status: Active Protocol: Document 06/04/20 11:15 SAK (Rec: 06/05/20 16:34 [facility] [id number]) Current Condition History of Current Condition Onset Date 2014 Current Complaints weakness, requires assistance with all mobility and household tasks History of Current Condition Reports that she suffered a stroke in 2014 after surgery for brain aneurysm. CVA caused weakness on the left side of her body, gait and balance difficulty, seizures. PT-OP-C Subjective Start: 05/28/19 08:11 Freq: Status: Active Protocol: Document 03/02/22 11:15 SAK (Rec: 03/02/22 12:15 [facility] [id number]) OP-PT Subjective Patient Comments Patient Comments States she just saw Dr. Valdez, decreased pain, not sure how well she july do functionally, but willing to try 6 min walk test. PT-OP-D Balance Start: 05/28/19 08:11 Freq: Status: Active Protocol: Document 05/29/19 14:30 SAK (Rec: 05/30/19 14:24 [facility] [id number]) OP-PT Balance Assessment Sitting Balance Static Sitting Balance Ability Good Dynamic Sitting Balance Ability Fair Standing Balance Static Standing Balance Ability Good Dynamic Standing Balance Ability Fair Device [facility] Tinetti Balance Assessment Sitting Balance Sitting Balance Steady, safe Arising from Chair Attempts to Arise Able, requires >1 attempt Standing Balance Immediate Standing Balance Steady with support Standing Balance Steady, wide stance Nudged Response Begins to fall Standing with Eyes Closed Unsteady Turning Step Pattern Turning 360 Degrees Discontinuous steps Stability Turning 360 Degrees Unsteady, grabs/staggers Sitting Down Sitting Down Uses arms or unsteady Gait and Step Initiation of Gait Hesitancy, mult. attempts Right Foot Step Length Does not pass stance ft. Right Foot Step Height Does not clear floor Left Foot Step Length Does not pass stance foot Left Foot Step Height Does not clear floor Step Description Step Symmetry Step length not equal Gait Description Path Description Mild/moderate deviation Trunk Description Marked sway or uses aide Walking Stance Heels apart Scoring and Interpretation Tinetti Composite Score (points) 6 Interpretation of Scores High risk for falls(< 19) Herrera Fall Scale Copyright Permission PT-OP-E Functional Tests Start: 05/28/19 08:11 Freq: Status: Active Protocol: Document 05/14/21 10:50 [facility] (Rec: 05/14/21 11:08 [facility] [id number]) Functional Tests 6 Minute Walk Test Distance 169ft Device Used spc, TB wrapping Comments pt has headache today and feels that may have slowed her down. Timed Up and Go (TUG) Score 107 seconds PT-OP-G Mobility & Gait Start: 05/28/19 08:11 Freq: Status: Active Protocol: Document 05/26/20 11:15 SAK (Rec: 05/26/20 17:04 [facility] [id number]) OP Mobility Evaluation Bed Mobility Rolling min assist to right CGA to left Supine to and from Sit min assist to right CGA to left Transfers Sit to Stand CGA to min assist without UE use Bed to Chair Transfers requires use of right UE but able to do with SBA Floor Transfers unable PT-OP-H Neuro Start: 05/28/19 08:11 Freq: Status: Active Protocol: Document 05/29/19 14:30 SAK (Rec: 05/30/19 14:24 SAK [id number]) Sensation Evaluation Gross Sensation Gross Sensation Left UE Impaired,Left LE Impaired Sensation Description Paresthesia,Numbness Coordination Evaluation Lower Extremity Tests Left Alternate Heel to Knee; Heel to Toe Test Moderate Impairment Heel on Boles Test Moderate Impairment Foot Tapping Test Moderate Impairment PT-OP-K Range of Motion Start: 05/28/19 08:11 Freq: Status: Active Protocol: Document 05/26/20 11:15 SAK (Rec: 05/26/20 17:04 [facility] [id number]) Hip Goniometric Range of Motion Hip jake Hip ROM WFL Yes Comments actively right LE, passively left LE Knee Goniometric Range of Motion Knee jake Knee ROM WFL Yes Ankle and Foot Goniometric Range of Motion Ankle and Foot Left Passive Ankle/Foot ROM WFL No Left Active Ankle/Foot ROM WFL No PT-OP-M Strength Start: 05/28/19 08:11 Freq: Status: Active Protocol: Document 05/26/20 11:15 SAK (Rec: 05/26/20 17:04 SAK [id number]) Hip Strength Hip Manual Muscle Testing Left Flexion (L2) 3- Fair- Extension (S1) 2 Poor Abduction 2+ Poor+ External Rotation 3- Fair- Internal Rotation 3+ Fair+ Right Flexion (L2) 4 Good Extension (S1) 4- Good- Abduction 4 Good External Rotation 3+ Fair+ Internal Rotation 4- Good- PT-OP-Q Treatments Start: 05/28/19 08:11 Freq: Status: Active Protocol: Document 03/02/22 11:15 SAK (Rec: 03/02/22 12:15 SAK [id number]) Therapeutic Exercises Sitting Exercises HC stretch Side left Resistance AAROM Equipment Used manual Reps/Minutes 30 x 3 Therapeutic Activity Therapeutic Activity sit>sideling> kneeling Comments seated to sidelying with SBA assist, min assist to knees 1 trials with PT 1/2 kneeling beside, patient using thigh for stability Gait Training Gait Activity uneven Description uneven Level of Assistance CGA Surface 5 red foam mats Treatment Focus balance and stability 6 min walk test Description AFO only Level of Assistance SBA- CGA Surface firm Distance/Duration 179'/6 min Comments Pt reaches for wall 3 times during six minutes but does not lean on it. Stumbled x 2 requiring mod assist. More difficulty with left LE alignment. No cane. PT-OP-R Modalities Start: 05/28/19 08:11 Freq: Status: Active Protocol: Document 12/29/20 10:30 SP (Rec: 12/29/20 11:44 SP [id number]) Electric Stimulation Electric Stimulation Functional Electric Stimulation Body Location L hand/ forearm extensors Duration (Minutes) 2 Patient Position Sitting Comments NMES- education on placement of pad for muscular feedback extension based- check self placement understanding. PT-OP-T Assessment and Plan Start: 05/28/19 08:11 Freq: Status: Active Protocol: Document 03/02/22 11:15 SAK (Rec: 03/02/22 12:15 SAK [id number]) Physical Therapy Assessment Goals Five Impairment gait speed not adequate for safe community ambulation Boat Crew Deck Hand Goal (LTG) Patient able to ambulate 300' in 6 min. TUG score no greater than 30 sec 06/02/20: 134' 08/28/20: 144', likely not as high due to new shoes and wearing old AFO because fits better in new shoes. Requires level 4 theraband for derotation of left LE into more neutral position for gait . 09/19/20: 146 ft 6 min w/ QC and Tb wrapping to LLE. 11/13/20: 153 ft CG w/ SPC 2>3 pt gait w/out metronome w/ reported L glut/ lateral leg burn pain, 2 step brief stand breaks. 11/24/20: progressing 173.7 ft using SPC, predominently 2 pt gait. TUG score 59 sec using SP 01/27/21: TUG 55 sec. , 6 min walk test 199.9 ft with SPC 03/19/21: 6 min walk test 165' , TUG 1:20. Continue with use of theraband for derotation of excess ER left LE with gait . 04/16/21: 6MWT 190 ft w/ SPC and TB wrapping assist hip IR. 04/23/21: 6MWT 181 ftw/ SPC and TB wrapping 06/25/21: 6MWT 180 ft with SPC and TB wrapping. TU sec 09/16/21 - average gait speed 0 .14 m/s on 6MWT which pt completed with no AD (AFO only ). 12/23/21: most recent 6 min walk test 159 ft with no theraband derotation wrap and no assistive device LTG Duration 03/26/22 Four Impairment requires assistance with bed mobility and transfers Short Term Goal (STG) Patient will be able to perform all bed mobility independently to improve her functional independence. 10/31/19: good goal progress 06/02/20:inconsistent, but min assist most times 11/24/20: Met goal: pt is independent in supine>sit. STG Duration goal met Boat Crew Deck Hand Goal (LTG) Patient will be able to perform a floor transfer with SB to min assist. 5x sit to stand score in no more than 15 sec as measure of functional strength for transfers 10/31/19: max assist today 01/02/20: has not been willing to try since 10/31/19 06/02/21: does not feel strong enough to try yet. 2/17/22: 08/28/20: max assistance required 12/02/20: remains at max assist , not recently willing to attempt floor transfer. 5x sit to stand score 26 seconds 01/27/21: not tried recently. 03/24/21: 5x sit to stand 25 sec. No floor transfer today 06/25/21: 5x sit to stand 24 sec. Patient didn't feel up to doing floor transfer, remains a concern 09/16/21: Pt willing to work on floor transfers but demonstrates a great deal of fear avoidance. 12/23/21: 5 Time Sit to Stand today in 30.4 seconds from standard height chair with no use of RUE LTG Duration 03/26/22 Three Impairment weakness left UE and LE s/p CVA Custodial Goal (LTG) Improve functional strength in left LE, as evidenced by ability to move from sit > < stand without use of UE's. 10/31/19: OT starts tomorrow. Good progress with sit to stand, though mostly using right UE and LE 01/02/20: Improving ability to perform, able to increase weight-bearing through left LE with cues, but still some use of right UE 05/26/20: With manual and visual feedback patient able to transfer sit to stand with only CG A. 08/28/20: inconsistent ability to move sit to stand without using UE's, but able to do transfer without physical assistance 11/24/20: Goal Met 01/27/21: more difficulty recently, having to use hands. Goal reactivated. 03/24/21: difficulty motor planning and performing sit to stand today. 06/25/21: patient becomes frustrated with sit to stand transfers as she expresses she feels she has a hard time remembering how to do it, has to use right UE 09/16/21 Pt completes sit to stand x 5 today without use of RUE from std height chair. LTG Duration goal met Two Impairment balance dysfunction with high risk for falls Boat Crew Deck Hand Goal (LTG) Improve balance as evidenced by improvement in Tinnetti balance and gait score to low fall risk range to improve safety in the home and community. 10/31/19: remains high risk for falls 01/02/20: some improvement but still in high risk category 05/26/20: Tinetti score in high risk category 08/28/20: moderate risk for falls 12/02/20: remains in moderate risk for falls. 01/27/21: moderate risk for falls 03/24/21: no significant change noted today but again having poor day. 06/25/21: Moderate risk for falls, though no reported falls over past few months. 09/16/21 No change 12/23/21: improved by 3 points LTG Duration 03/26/22 One Impairment requires armaan-walker for gait, limited to household gait Boat Crew Deck Hand Goal (LTG) Patient able to ambulate with least restrictive device for functional community distances to improve her functional independence and quality of life. 10/30/19: no progress due to Covid 19. 11/02/19: able to ambulate with quad cane but with very slow speed, household distances, very short community distances . 05/26/20: Now able to ambulate with use of single point cane and use of L4 theraband wrapped around left LE to facilitate left LE internal rotation for improved alignment. Patient unable to don the theraband on her own. Gait is for short distances and very slow at 39 ft in 2 min. 08/28/20: has demonstrated improved gait ability, still using theraband for derotation of LE for more neutral position. Able to consistenly use quad cane and is increasing stride length especially with cues. Now able to ascend and descend 4 stairs with min assist using railing. Mod assist on 6 stairs. 12/02/20: Patient ambulating with SPC, mostly household but some community distances, improved gait alignment with use of theraband for improved alignment. Patient not consistently able to ambulate community distances due to pain in her left LE, and lack of neurological control left LE. Patient may benefit from modification to her current AFO or fabrication of new AFO. 173 ft in 6 minutes 01/27/21: using SPC. Limitations due to left foot, knee and hip pain, right wrist pain 6 min walk test improved to 199.9 feet today 03/24/21: slower 6 min walk test today as above. Has had modification to her AFO with some improvement in her function, but had poor day today. 06/25/21: 180' on 6 min walk test, patient reports left knee feeling wonky, and right UE still painful due to surgery' having stitches out today. Also c/o lack of caregiver recently has limited her walking, no outings. Will try again next session. 09/16/21: Pt completes 6MWT without cane today/ Average gait speed 0.14 12/23/21: [place] is now able to ambulate indoors with no assistive device. Outdoors on level surfaces with no device with CGA, uneven surfaces requires cane and CG to mod assist. Continues to improve. LTG Duration 03/26/22 Assessment Summary Assessment 6 min walk test 179ft AFO only , 2 stumbles requiring mod assist, touched wall for stability x 3. Less assist sitting to kneeling. Physical Therapy Plan Frequency and Duration Frequency of Treatment 2x/Week Duration of treatment (weeks) 12 Plan of Care Start Date 12/23/21 Plan of Care End Date 03/17/22 Therapeutic Interventions Therapeutic Interventions Aquatic Therapy,Balance Training,Gait Training,Home Exercise Program,Neuromuscular Re-education,Orthotic/ Prosthetic Management,Patient/ Caregiver Education,Self-Care/ Home Management,Taping, Therapeutic Activities, Therapeutic Exercises Modalities Cold Pack/Ice Massage,Hot Packs Next Visit Focus/Plan Next Note Type Treatment Note Next Visit Plan Progression of floor transfer training using large black mat . Continue gait training on uneven surfaces, functional strengthening and safety, balance retraining, continue cues for postural correction for improved function and decreased pain.
--- NOTE | 2022-03-04 12:12 | PT.OTN ---
Current Diagnoses Difficulty in walking, not elsewhere classified (03/04/22) Weakness (03/04/22) History of falling (03/04/22) Physical Therapy Treatment Note PT-OP-A Visit Information Start: 05/28/19 08:11 Freq: Status: Active Protocol: Document 03/04/22 10:56 AW (Rec: 03/04/22 12:12 AW [id number]) Out-Patient Physical Therapy Visit Information Visit Information Visit Type Treatment Note Visit Start Time 11:15 Visit Stop Time 12:00 Total Visit Minutes 45 Visit Number 165 Precautions Precautions Seizure disorder memory dysfunction PT-OP-B Current Condition Start: 05/28/19 08:11 Freq: Status: Active Protocol: Document 06/04/20 11:15 SAK (Rec: 06/05/20 16:34 SAK [id number]) Current Condition History of Current Condition Onset Date 2014 Current Complaints weakness, requires assistance with all mobility and household tasks History of Current Condition Reports that she suffered a stroke in 2014 after surgery for brain aneurysm. CVA caused weakness on the left side of her body, gait and balance difficulty, seizures. PT-OP-C Subjective Start: 05/28/19 08:11 Freq: Status: Active Protocol: Document 03/04/22 10:56 AW (Rec: 03/04/22 12:12 AW [id number]) OP-PT Subjective Patient Comments Patient Comments Feeling more sore the past few days and has been sleeping poorly. PT-OP-D Balance Start: 05/28/19 08:11 Freq: Status: Active Protocol: Document 05/29/19 14:30 SAK (Rec: 05/30/19 14:24 SAK [id number]) OP-PT Balance Assessment Sitting Balance Static Sitting Balance Ability Good Dynamic Sitting Balance Ability Fair Standing Balance Static Standing Balance Ability Good Dynamic Standing Balance Ability Fair Device [facility] right Tinetti Balance Assessment Sitting Balance Sitting Balance Steady, safe Arising from Chair Attempts to Arise Able, requires >1 attempt Standing Balance Immediate Standing Balance Steady with support Standing Balance Steady, wide stance Nudged Response Begins to fall Standing with Eyes Closed Unsteady Turning Step Pattern Turning 360 Degrees Discontinuous steps Stability Turning 360 Degrees Unsteady, grabs/staggers Sitting Down Sitting Down Uses arms or unsteady Gait and Step Initiation of Gait Hesitancy, mult. attempts Right Foot Step Length Does not pass stance ft. Right Foot Step Height Does not clear floor Left Foot Step Length Does not pass stance foot Left Foot Step Height Does not clear floor Step Description Step Symmetry Step length not equal Gait Description Path Description Mild/moderate deviation Trunk Description Marked sway or uses aide Walking Stance Heels apart Scoring and Interpretation Tinetti Composite Score (points) 6 Interpretation of Scores High risk for falls(< 19) Herrera Fall Scale Copyright Permission PT-OP-E Functional Tests Start: 05/28/19 08:11 Freq: Status: Active Protocol: Document 05/14/21 10:50 AMH (Rec: 05/14/21 11:08 AMH [id number]) Functional Tests 6 Minute Walk Test Distance 169ft Device Used spc, TB wrapping Comments pt has headache today and feels that may have slowed her down. Timed Up and Go (TUG) Score 107 seconds PT-OP-G Mobility & Gait Start: 05/28/19 08:11 Freq: Status: Active Protocol: Document 05/26/20 11:15 SAK (Rec: 05/26/20 17:04 SAK [id number]) OP Mobility Evaluation Bed Mobility Rolling min assist to right CGA to left Supine to and from Sit min assist to right CGA to left Transfers Sit to Stand CGA to min assist without UE use Bed to Chair Transfers requires use of right UE but able to do with SBA Floor Transfers unable PT-OP-H Neuro Start: 05/28/19 08:11 Freq: Status: Active Protocol: Document 05/29/19 14:30 SAK (Rec: 05/30/19 14:24 SAK [id number]) Sensation Evaluation Gross Sensation Gross Sensation Left UE Impaired,Left LE Impaired Sensation Description Paresthesia,Numbness Coordination Evaluation Lower Extremity Tests Left Alternate Heel to Knee; Heel to Toe Test Moderate Impairment Heel on Boles Test Moderate Impairment Foot Tapping Test Moderate Impairment PT-OP-K Range of Motion Start: 05/28/19 08:11 Freq: Status: Active Protocol: Document 05/26/20 11:15 SAK (Rec: 05/26/20 17:04 SAK [id number]) Hip Goniometric Range of Motion Hip jake Hip ROM WFL Yes Comments actively right LE, passively left LE Knee Goniometric Range of Motion Knee jake Knee ROM WFL Yes Ankle and Foot Goniometric Range of Motion Ankle and Foot Left Passive Ankle/Foot ROM WFL No Left Active Ankle/Foot ROM WFL No PT-OP-M Strength Start: 05/28/19 08:11 Freq: Status: Active Protocol: Document 05/26/20 11:15 SAK (Rec: 05/26/20 17:04 SAK [id number]) Hip Strength Hip Manual Muscle Testing Left Flexion (L2) 3- Fair- Extension (S1) 2 Poor Abduction 2+ Poor+ External Rotation 3- Fair- Internal Rotation 3+ Fair+ Right Flexion (L2) 4 Good Extension (S1) 4- Good- Abduction 4 Good External Rotation 3+ Fair+ Internal Rotation 4- Good- PT-OP-Q Treatments Start: 05/28/19 08:11 Freq: Status: Active Protocol: Document 03/04/22 10:56 AW (Rec: 03/04/22 12:12 AW [id number]) Therapeutic Exercises Sitting Exercises sitting balance Sitting Exercise Name f/b/side wt shift, reaching out side of MIKA across body RUE Equipment Used 65 cm T ball Comments CGA/min A for tall sitting, weight shift Standing Exercises squats Reps/Minutes 15x Comments at elevated black tx table; wt on LLE sit stands w/ AFO donned Standing Exercise Name no RUE assist Equipment Used from black tx table 19 Reps/Minutes 2x10 Comments verbal and manual cues for LLE positioning, weight shift toward left Therapeutic Activity Therapeutic Activity sit>sideling> kneeling Comments - seated to sidelying with SBA assist, min assist to knees 1 trials with PT 1/2 kneeling beside, patient using thigh for stability - QL walk fwd/bwd x 3 to work on floor scooting - hip hinge in tall kneeling ( pt c/o right knee pain with increased time in kneeling) Gait Training Gait Activity uneven Description uneven Level of Assistance CGA Surface yoga mats Treatment Focus balance and stability PT-OP-R Modalities Start: 05/28/19 08:11 Freq: Status: Active Protocol: Document 12/29/20 10:30 SP (Rec: 12/29/20 11:44 SP [id number]) Electric Stimulation Electric Stimulation Functional Electric Stimulation Body Location L hand/ forearm extensors Duration (Minutes) 2 Patient Position Sitting Comments NMES- education on placement of pad for muscular feedback extension based- check self placement understanding. PT-OP-T Assessment and Plan Start: 05/28/19 08:11 Freq: Status: Active Protocol: Document 03/04/22 10:56 AW (Rec: 03/04/22 12:12 AW [id number]) Physical Therapy Assessment Goals Five Impairment gait speed not adequate for safe community ambulation T[employer] Mechanic Goal (LTG) Patient able to ambulate 300' in 6 min. TUG score no greater than 30 sec 06/02/20: 134' 08/28/20: 144', likely not as high due to new shoes and wearing old AFO because fits better in new shoes. Requires level 4 theraband for derotation of left LE into more neutral position for gait . 09/19/20: 146 ft 6 min w/ QC and Tb wrapping to LLE. 11/13/20: 153 ft CG w/ SPC 2>3 pt gait w/out metronome w/ reported L glut/ lateral leg burn pain, 2 step brief stand breaks. 11/24/20: progressing 173.7 ft using SPC, predominently 2 pt gait. TUG score 59 sec using SP 01/27/21: TUG 55 sec. , 6 min walk test 199.9 ft with SPC 03/19/21: 6 min walk test 165' , TUG 1:20. Continue with use of theraband for derotation of excess ER left LE with gait . 04/16/21: 6MWT 190 ft w/ SPC and TB wrapping assist hip IR. 04/23/21: 6MWT 181 ftw/ SPC and TB wrapping 06/25/21: 6MWT 180 ft with SPC and TB wrapping. TU sec 09/16/21 - average gait speed 0 .14 m/s on 6MWT which pt completed with no AD (AFO only ). 12/23/21: most recent 6 min walk test 159 ft with no theraband derotation wrap and no assistive device LTG Duration 03/26/22 Four Impairment requires assistance with bed mobility and transfers Short Term Goal (STG) Patient will be able to perform all bed mobility independently to improve her functional independence. 10/31/19: good goal progress 06/02/20:inconsistent, but min assist most times 11/24/20: Met goal: pt is independent in supine>sit. STG Duration goal met Group Home Goal (LTG) Patient will be able to perform a floor transfer with SB to min assist. 5x sit to stand score in no more than 15 sec as measure of functional strength for transfers 10/31/19: max assist today 01/02/20: has not been willing to try since 10/31/19 06/02/21: does not feel strong enough to try yet. 06/25/21: 08/28/20: max assistance required 12/02/20: remains at max assist , not recently willing to attempt floor transfer. 5x sit to stand score 26 seconds 01/27/21: not tried recently. 03/24/21: 5x sit to stand 25 sec. No floor transfer today 06/25/21: 5x sit to stand 24 sec. Patient didn't feel up to doing floor transfer, remains a concern 09/16/21: Pt willing to work on floor transfers but demonstrates a great deal of fear avoidance. 12/23/21: 5 Time Sit to Stand today in 30.4 seconds from standard height chair with no use of RUE LTG Duration 03/26/22 Three Impairment weakness left UE and LE s/p CVA [employer] Mechanic Goal (LTG) Improve functional strength in left LE, as evidenced by ability to move from sit > < stand without use of UE's. 10/31/19: OT starts tomorrow. Good progress with sit to stand, though mostly using right UE and LE 01/02/20: Improving ability to perform, able to increase weight-bearing through left LE with cues, but still some use of right UE 05/26/20: With manual and visual feedback patient able to transfer sit to stand with only CG A. 08/28/20: inconsistent ability to move sit to stand without using UE's, but able to do transfer without physical assistance 11/24/20: Goal Met 01/27/21: more difficulty recently, having to use hands. Goal reactivated. 03/24/21: difficulty motor planning and performing sit to stand today. 06/25/21: patient becomes frustrated with sit to stand transfers as she expresses she feels she has a hard time remembering how to do it, has to use right UE 09/16/21 Pt completes sit to stand x 5 today without use of RUE from std height chair. LTG Duration goal met Two Impairment balance dysfunction with high risk for falls T[employer] Mechanic Goal (LTG) Improve balance as evidenced by improvement in Tinnetti balance and gait score to low fall risk range to improve safety in the home and community. 10/31/19: remains high risk for falls 01/02/20: some improvement but still in high risk category 05/26/20: Tinetti score in high risk category 08/28/20: moderate risk for falls 12/02/20: remains in moderate risk for falls. 01/27/21: moderate risk for falls 03/24/21: no significant change noted today but again having poor day. 06/25/21: Moderate risk for falls, though no reported falls over past few months. 09/16/21 No change 12/23/21: improved by 3 points LTG Duration 03/26/22 One Impairment requires armaan-walker for gait, limited to household gait Tire Mechanic Goal (LTG) Patient able to ambulate with least restrictive device for functional community distances to improve her functional independence and quality of life. 10/30/19: no progress due to Covid 19. 11/02/19: able to ambulate with quad cane but with very slow speed, household distances, very short community distances . 05/26/20: Now able to ambulate with use of single point cane and use of L4 theraband wrapped around left LE to facilitate left LE internal rotation for improved alignment. Patient unable to don the theraband on her own. Gait is for short distances and very slow at 39 ft in 2 min. 08/28/20: has demonstrated improved gait ability, still using theraband for derotation of LE for more neutral position. Able to consistenly use quad cane and is increasing stride length especially with cues. Now able to ascend and descend 4 stairs with min assist using railing. Mod assist on 6 stairs. 12/02/20: Patient ambulating with SPC, mostly household but some community distances, improved gait alignment with use of theraband for improved alignment. Patient not consistently able to ambulate community distances due to pain in her left LE, and lack of neurological control left LE. Patient may benefit from modification to her current AFO or fabrication of new AFO. 173 ft in 6 minutes 01/27/21: using SPC. Limitations due to left foot, knee and hip pain, right wrist pain 6 min walk test improved to 199.9 feet today 03/24/21: slower 6 min walk test today as above. Has had modification to her AFO with some improvement in her function, but had poor day today. 06/25/21: 180' on 6 min walk test, patient reports left knee feeling wonky, and right UE still painful due to surgery' having stitches out today. Also c/o lack of caregiver recently has limited her walking, no outings. Will try again next session. 09/16/21: Pt completes 6MWT without cane today/ Average gait speed 0.14 12/23/21: Adelaide is now able to ambulate indoors with no assistive device. Outdoors on level surfaces with no device with CGA, uneven surfaces requires cane and CG to mod assist. Continues to improve. LTG Duration 03/26/22 Assessment Summary Assessment Adelaide is able to complete sidelying to kneeling with min assist from therapist. Incorporated hip hinge work in tall kneeling. Worked on floor mobility with QL walks. Physical Therapy Plan Frequency and Duration Frequency of Treatment 2x/Week Duration of treatment (weeks) 12 Plan of Care Start Date 12/23/21 Plan of Care End Date 03/17/22 Therapeutic Interventions Therapeutic Interventions Aquatic Therapy,Balance Training,Gait Training,Home Exercise Program,Neuromuscular Re-education,Orthotic/ Prosthetic Management,Patient/ Caregiver Education,Self-Care/ Home Management,Taping, Therapeutic Activities, Therapeutic Exercises Modalities Cold Pack/Ice Massage,Hot Packs Next Visit Focus/Plan Next Note Type Treatment Note Next Visit Plan Progression of floor transfer training using large black mat . Continue gait training on uneven surfaces, functional strengthening and safety, balance retraining, continue cues for postural correction for improved function and decreased pain.
--- NOTE | 2022-03-09 11:27 | PT.OTN ---
Current Diagnoses Difficulty in walking, not elsewhere classified (03/09/22) Weakness (03/09/22) History of falling (03/09/22) Physical Therapy Treatment Note PT-OP-A Visit Information Start: 05/28/19 08:11 Freq: Status: Active Protocol: Document 03/09/22 10:31 SAK (Rec: 03/09/22 11:18 [facility] [id number]) Out-Patient Physical Therapy Visit Information Visit Information Visit Type Treatment Note Visit Start Time 10:30 Visit Stop Time 11:15 Total Visit Minutes 45 Visit Number 166 Precautions Precautions Seizure disorder memory dysfunction PT-OP-B Current Condition Start: 05/28/19 08:11 Freq: Status: Active Protocol: Document 06/04/20 11:15 SAK (Rec: 06/05/20 16:34 [facility] [id number]) Current Condition History of Current Condition Onset Date 2014 Current Complaints weakness, requires assistance with all mobility and household tasks History of Current Condition Reports that she suffered a stroke in 2014 after surgery for brain aneurysm. CVA caused weakness on the left side of her body, gait and balance difficulty, seizures. PT-OP-C Subjective Start: 05/28/19 08:11 Freq: Status: Active Protocol: Document 03/09/22 10:31 SAK (Rec: 03/09/22 11:18 [facility] [id number]) OP-PT Subjective Patient Comments Patient Comments Feels she has a pinched nerve in her left neck, numbness. Has had before. PT-OP-D Balance Start: 05/28/19 08:11 Freq: Status: Active Protocol: Document 05/29/19 14:30 SAK (Rec: 05/30/19 14:24 [facility] [id number]) OP-PT Balance Assessment Sitting Balance Static Sitting Balance Ability Good Dynamic Sitting Balance Ability Fair Standing Balance Static Standing Balance Ability Good Dynamic Standing Balance Ability Fair Device [facility] Tinetti Balance Assessment Sitting Balance Sitting Balance Steady, safe Arising from Chair Attempts to Arise Able, requires >1 attempt Standing Balance Immediate Standing Balance Steady with support Standing Balance Steady, wide stance Nudged Response Begins to fall Standing with Eyes Closed Unsteady Turning Step Pattern Turning 360 Degrees Discontinuous steps Stability Turning 360 Degrees Unsteady, grabs/staggers Sitting Down Sitting Down Uses arms or unsteady Gait and Step Initiation of Gait Hesitancy, mult. attempts Right Foot Step Length Does not pass stance ft. Right Foot Step Height Does not clear floor Left Foot Step Length Does not pass stance foot Left Foot Step Height Does not clear floor Step Description Step Symmetry Step length not equal Gait Description Path Description Mild/moderate deviation Trunk Description Marked sway or uses aide Walking Stance Heels apart Scoring and Interpretation Tinetti Composite Score (points) 6 Interpretation of Scores High risk for falls(< 19) Herrrea Fall Scale Copyright Permission PT-OP-E Functional Tests Start: 05/28/19 08:11 Freq: Status: Active Protocol: Document 05/14/21 10:50 [facility] (Rec: 05/14/21 11:08 [facility] [id number]) Functional Tests 6 Minute Walk Test Distance 169ft Device Used spc, TB wrapping Comments pt has headache today and feels that may have slowed her down. Timed Up and Go (TUG) Score 107 seconds PT-OP-G Mobility & Gait Start: 05/28/19 08:11 Freq: Status: Active Protocol: Document 05/26/20 11:15 SAK (Rec: 05/26/20 17:04 [facility] [id number]) OP Mobility Evaluation Bed Mobility Rolling min assist to right CGA to left Supine to and from Sit min assist to right CGA to left Transfers Sit to Stand CGA to min assist without UE use Bed to Chair Transfers requires use of right UE but able to do with SBA Floor Transfers unable PT-OP-H Neuro Start: 05/28/19 08:11 Freq: Status: Active Protocol: Document 05/29/19 14:30 SAK (Rec: 05/30/19 14:24 [facility]AK [id number]) Sensation Evaluation Gross Sensation Gross Sensation Left UE Impaired,Left LE Impaired Sensation Description Paresthesia,Numbness Coordination Evaluation Lower Extremity Tests Left Alternate Heel to Knee; Heel to Toe Test Moderate Impairment Heel on Boles Test Moderate Impairment Foot Tapping Test Moderate Impairment PT-OP-K Range of Motion Start: 05/28/19 08:11 Freq: Status: Active Protocol: Document 05/26/20 11:15 SAK (Rec: 05/26/20 17:04 [facility]AK [id number]) Hip Goniometric Range of Motion Hip jake Hip ROM WFL Yes Comments actively right LE, passively left LE Knee Goniometric Range of Motion Knee jake Knee ROM WFL Yes Ankle and Foot Goniometric Range of Motion Ankle and Foot Left Passive Ankle/Foot ROM WFL No Left Active Ankle/Foot ROM WFL No PT-OP-M Strength Start: 05/28/19 08:11 Freq: Status: Active Protocol: Document 05/26/20 11:15 SAK (Rec: 05/26/20 17:04 SAK [id number]) Hip Strength Hip Manual Muscle Testing Left Flexion (L2) 3- Fair- Extension (S1) 2 Poor Abduction 2+ Poor+ External Rotation 3- Fair- Internal Rotation 3+ Fair+ Right Flexion (L2) 4 Good Extension (S1) 4- Good- Abduction 4 Good External Rotation 3+ Fair+ Internal Rotation 4- Good- PT-OP-Q Treatments Start: 05/28/19 08:11 Freq: Status: Active Protocol: Document 03/09/22 10:31 SAK (Rec: 03/09/22 11:18 SAK [id number]) Cardio Equipment Recumbent Stepper (Sci-Fit) Duration (Minutes) 9 Resistance 2.0-1.0 Seat Position 11 Other cues for left LE alignment, 1. 0 mile Therapeutic Exercises Sitting Exercises HC stretch Side left Resistance AAROM Equipment Used manual Reps/Minutes 30 x 3 Gait Training Gait Activity uneven Description uneven Device Used AFO,SPC Level of Assistance CGA Surface yoga mats, blue mat Distance/Duration 3x 2 red and 1 blue with SPC, 1x 2 red no device Treatment Focus balance and stability Comments CG to min assist, encouragement and cues for cane placement PT-OP-R Modalities Start: 05/28/19 08:11 Freq: Status: Active Protocol: Document 12/29/20 10:30 SP (Rec: 12/29/20 11:44 SP [id number]) Electric Stimulation Electric Stimulation Functional Electric Stimulation Body Location L hand/ forearm extensors Duration (Minutes) 2 Patient Position Sitting Comments NMES- education on placement of pad for muscular feedback extension based- check self placement understanding. PT-OP-T Assessment and Plan Start: 05/28/19 08:11 Freq: Status: Active Protocol: Document 03/09/22 10:31 SAK (Rec: 03/09/22 11:18 [facility] [id number]) Physical Therapy Assessment Goals Five Impairment gait speed not adequate for safe community ambulation Garbage Pick Up Man Goal (LTG) Patient able to ambulate 300' in 6 min. TUG score no greater than 30 sec 06/02/20: 134' 08/28/20: 144', likely not as high due to new shoes and wearing old AFO because fits better in new shoes. Requires level 4 theraband for derotation of left LE into more neutral position for gait . 09/19/20: 146 ft 6 min w/ QC and Tb wrapping to LLE. 11/13/20: 153 ft CG w/ SPC 2>3 pt gait w/out metronome w/ reported L glut/ lateral leg burn pain, 2 step brief stand breaks. 11/24/20: progressing 173.7 ft using SPC, predominently 2 pt gait. TUG score 59 sec using SP 01/27/21: TUG 55 sec. , 6 min walk test 199.9 ft with SPC 03/19/21: 6 min walk test 165' , TUG 1:20. Continue with use of theraband for derotation of excess ER left LE with gait . 04/16/21: 6MWT 190 ft w/ SPC and TB wrapping assist hip IR. 04/23/21: 6MWT 181 ftw/ SPC and TB wrapping 06/25/21: 6MWT 180 ft with SPC and TB wrapping. TU sec 09/16/21 - average gait speed 0 .14 m/s on 6MWT which pt completed with no AD (AFO only ). 12/23/21: most recent 6 min walk test 159 ft with no theraband derotation wrap and no assistive device LTG Duration 03/26/22 Four Impairment requires assistance with bed mobility and transfers Short Term Goal (STG) Patient will be able to perform all bed mobility independently to improve her functional independence. 10/31/19: good goal progress 06/02/20:inconsistent, but min assist most times 11/24/20: Met goal: pt is independent in supine>sit. STG Duration goal met Assisted Goal (LTG) Patient will be able to perform a floor transfer with SB to min assist. 5x sit to stand score in no more than 15 sec as measure of functional strength for transfers 10/31/19: max assist today 01/02/20: has not been willing to try since 10/31/19 06/02/21: does not feel strong enough to try yet. 06/25/21: 08/28/20: max assistance required 12/02/20: remains at max assist , not recently willing to attempt floor transfer. 5x sit to stand score 26 seconds 01/27/21: not tried recently. 03/24/21: 5x sit to stand 25 sec. No floor transfer today 06/25/21: 5x sit to stand 24 sec. Patient didn't feel up to doing floor transfer, remains a concern 09/16/21: Pt willing to work on floor transfers but demonstrates a great deal of fear avoidance. 12/23/21: 5 Time Sit to Stand today in 30.4 seconds from standard height chair with no use of RUE LTG Duration 03/26/22 Three Impairment weakness left UE and LE s/p CVA Assisted Goal (LTG) Improve functional strength in left LE, as evidenced by ability to move from sit > < stand without use of UE's. 10/31/19: OT starts tomorrow. Good progress with sit to stand, though mostly using right UE and LE 01/02/20: Improving ability to perform, able to increase weight-bearing through left LE with cues, but still some use of right UE 05/26/20: With manual and visual feedback patient able to transfer sit to stand with only CG A. 08/28/20: inconsistent ability to move sit to stand without using UE's, but able to do transfer without physical assistance 11/24/20: Goal Met 01/27/21: more difficulty recently, having to use hands. Goal reactivated. 03/24/21: difficulty motor planning and performing sit to stand today. 06/25/21: patient becomes frustrated with sit to stand transfers as she expresses she feels she has a hard time remembering how to do it, has to use right UE 09/16/21 Pt completes sit to stand x 5 today without use of RUE from std height chair. LTG Duration goal met Two Impairment balance dysfunction with high risk for falls Garbage Pick Up Man Goal (LTG) Improve balance as evidenced by improvement in Tinnetti balance and gait score to low fall risk range to improve safety in the home and community. 10/31/19: remains high risk for falls 01/02/20: some improvement but still in high risk category 05/26/20: Tinetti score in high risk category 08/28/20: moderate risk for falls 12/02/20: remains in moderate risk for falls. 01/27/21: moderate risk for falls 03/24/21: no significant change noted today but again having poor day. 06/25/21: Moderate risk for falls, though no reported falls over past few months. 09/16/21 No change 12/23/21: improved by 3 points LTG Duration 03/26/22 One Impairment requires armaan-walker for gait, limited to household gait Assisted Goal (LTG) Patient able to ambulate with least restrictive device for functional community distances to improve her functional independence and quality of life. 10/30/19: no progress due to Covid 19. 11/02/19: able to ambulate with quad cane but with very slow speed, household distances, very short community distances . 05/26/20: Now able to ambulate with use of single point cane and use of L4 theraband wrapped around left LE to facilitate left LE internal rotation for improved alignment. Patient unable to don the theraband on her own. Gait is for short distances and very slow at 39 ft in 2 min. 08/28/20: has demonstrated improved gait ability, still using theraband for derotation of LE for more neutral position. Able to consistenly use quad cane and is increasing stride length especially with cues. Now able to ascend and descend 4 stairs with min assist using railing. Mod assist on 6 stairs. 12/02/20: Patient ambulating with SPC, mostly household but some community distances, improved gait alignment with use of theraband for improved alignment. Patient not consistently able to ambulate community distances due to pain in her left LE, and lack of neurological control left LE. Patient may benefit from modification to her current AFO or fabrication of new AFO. 173 ft in 6 minutes 01/27/21: using SPC. Limitations due to left foot, knee and hip pain, right wrist pain 6 min walk test improved to 199.9 feet today 03/24/21: slower 6 min walk test today as above. Has had modification to her AFO with some improvement in her function, but had poor day today. 06/25/21: 180' on 6 min walk test, patient reports left knee feeling wonky, and right UE still painful due to surgery' having stitches out today. Also c/o lack of caregiver recently has limited her walking, no outings. Will try again next session. 09/16/21: Pt completes 6MWT without cane today/ Average gait speed 0.14 12/23/21: Adelaide is now able to ambulate indoors with no assistive device. Outdoors on level surfaces with no device with CGA, uneven surfaces requires cane and CG to mod assist. Continues to improve. LTG Duration 03/26/22 Assessment Summary Assessment Adelaide didn't feel up to doing mat activities today, increased focus on gait on uneven surfaces with decreased assistance needed stepping up and down on 4 blue mat. Physical Therapy Plan Frequency and Duration Frequency of Treatment 2x/Week Duration of treatment (weeks) 12 Plan of Care Start Date 12/23/21 Plan of Care End Date 03/17/22 Therapeutic Interventions Therapeutic Interventions Aquatic Therapy,Balance Training,Gait Training,Home Exercise Program,Neuromuscular Re-education,Orthotic/ Prosthetic Management,Patient/ Caregiver Education,Self-Care/ Home Management,Taping, Therapeutic Activities, Therapeutic Exercises Modalities Cold Pack/Ice Massage,Hot Packs Next Visit Focus/Plan Next Note Type Treatment Note Next Visit Plan Progression of floor transfer training using large black mat . Continue gait training on uneven surfaces, functional strengthening and safety, balance retraining, continue cues for postural correction for improved function and decreased pain.
--- NOTE | 2022-03-11 11:32 | PT.OTN ---
Current Diagnoses Difficulty in walking, not elsewhere classified (03/11/22) Weakness (03/11/22) History of falling (03/11/22) Physical Therapy Treatment Note PT-OP-A Visit Information Start: 05/28/19 08:11 Freq: Status: Active Protocol: Document 03/11/22 08:57 AW (Rec: 03/11/22 11:32 AW [id number]) Out-Patient Physical Therapy Visit Information Visit Information Visit Type Treatment Note Visit Start Time 10:30 Visit Stop Time 11:15 Total Visit Minutes 45 Visit Number 167 Precautions Precautions Seizure disorder memory dysfunction PT-OP-B Current Condition Start: 05/28/19 08:11 Freq: Status: Active Protocol: Document 06/04/20 11:15 SAK (Rec: 06/05/20 16:34 SAK [id number]) Current Condition History of Current Condition Onset Date 2014 Current Complaints weakness, requires assistance with all mobility and household tasks History of Current Condition Reports that she suffered a stroke in 2014 after surgery for brain aneurysm. CVA caused weakness on the left side of her body, gait and balance difficulty, seizures. PT-OP-C Subjective Start: 05/28/19 08:11 Freq: Status: Active Protocol: Document 03/11/22 08:57 AW (Rec: 03/11/22 11:32 AW [id number]) OP-PT Subjective Patient Comments Patient Comments Adelaide went for a walk at the [place] after therapy on Tuesday. She feels her endurance is improving. PT-OP-D Balance Start: 05/28/19 08:11 Freq: Status: Active Protocol: Document 05/29/19 14:30 SAK (Rec: 05/30/19 14:24 SAK [id number]) OP-PT Balance Assessment Sitting Balance Static Sitting Balance Ability Good Dynamic Sitting Balance Ability Fair Standing Balance Static Standing Balance Ability Good Dynamic Standing Balance Ability Fair Device Used hemiwalker right Tinetti Balance Assessment Sitting Balance Sitting Balance Steady, safe Arising from Chair Attempts to Arise Able, requires >1 attempt Standing Balance Immediate Standing Balance Steady with support Standing Balance Steady, wide stance Nudged Response Begins to fall Standing with Eyes Closed Unsteady Turning Step Pattern Turning 360 Degrees Discontinuous steps Stability Turning 360 Degrees Unsteady, grabs/staggers Sitting Down Sitting Down Uses arms or unsteady Gait and Step Initiation of Gait Hesitancy, mult. attempts Right Foot Step Length Does not pass stance ft. Right Foot Step Height Does not clear floor Left Foot Step Length Does not pass stance foot Left Foot Step Height Does not clear floor Step Description Step Symmetry Step length not equal Gait Description Path Description Mild/moderate deviation Trunk Description Marked sway or uses aide Walking Stance Heels apart Scoring and Interpretation Tinetti Composite Score (points) 6 Interpretation of Scores High risk for falls(< 19) Herrera Fall Scale Copyright Permission PT-OP-E Functional Tests Start: 05/28/19 08:11 Freq: Status: Active Protocol: Document 05/14/21 10:50 AMH (Rec: 05/14/21 11:08 AMH [id number]) Functional Tests 6 Minute Walk Test Distance 169ft Device Used spc, TB wrapping Comments pt has headache today and feels that may have slowed her down. Timed Up and Go (TUG) Score 107 seconds PT-OP-G Mobility & Gait Start: 05/28/19 08:11 Freq: Status: Active Protocol: Document 05/26/20 11:15 SAK (Rec: 05/26/20 17:04 [facility] [id number]) OP Mobility Evaluation Bed Mobility Rolling min assist to right CGA to left Supine to and from Sit min assist to right CGA to left Transfers Sit to Stand CGA to min assist without UE use Bed to Chair Transfers requires use of right UE but able to do with SBA Floor Transfers unable PT-OP-H Neuro Start: 05/28/19 08:11 Freq: Status: Active Protocol: Document 05/29/19 14:30 SAK (Rec: 05/30/19 14:24 SAK [id number]) Sensation Evaluation Gross Sensation Gross Sensation Left UE Impaired,Left LE Impaired Sensation Description Paresthesia,Numbness Coordination Evaluation Lower Extremity Tests Left Alternate Heel to Knee; Heel to Toe Test Moderate Impairment Heel on Boles Test Moderate Impairment Foot Tapping Test Moderate Impairment PT-OP-K Range of Motion Start: 05/28/19 08:11 Freq: Status: Active Protocol: Document 05/26/20 11:15 SAK (Rec: 05/26/20 17:04 SAK [id number]) Hip Goniometric Range of Motion Hip jake Hip ROM WFL Yes Comments actively right LE, passively left LE Knee Goniometric Range of Motion Knee jake Knee ROM WFL Yes Ankle and Foot Goniometric Range of Motion Ankle and Foot Left Passive Ankle/Foot ROM WFL No Left Active Ankle/Foot ROM WFL No PT-OP-M Strength Start: 05/28/19 08:11 Freq: Status: Active Protocol: Document 05/26/20 11:15 SAK (Rec: 05/26/20 17:04 SAK [id number]) Hip Strength Hip Manual Muscle Testing Left Flexion (L2) 3- Fair- Extension (S1) 2 Poor Abduction 2+ Poor+ External Rotation 3- Fair- Internal Rotation 3+ Fair+ Right Flexion (L2) 4 Good Extension (S1) 4- Good- Abduction 4 Good External Rotation 3+ Fair+ Internal Rotation 4- Good- PT-OP-Q Treatments Start: 05/28/19 08:11 Freq: Status: Active Protocol: Document 03/11/22 08:57 AW (Rec: 03/11/22 11:32 AW [id number]) Therapeutic Exercises Standing Exercises squats Equipment Used no AFO, // Reps/Minutes 15x Comments wt on LLE Gait Training Gait Activity parallel bars Description forward, backward Device Used //bar mostly no UE support, occasional light touch support Level of Assistance no AFO Surface firm Distance/Duration 3x each direction Treatment Focus neutral alignment, weight- shift over LLE required verbal sequencing curb simulation Description ascend/descend Device Used right rail Level of Assistance SBA/CGA Surface 6 step, blue foam Distance/Duration 5x Treatment Focus increase stability curb mgt Comments cued quad facilitation L knee stance LE during RLE advancement to ascend, and decreased UE support Neuro Re-Education Treatment Balance Activities rhythmic stabilization Details standing Surface firm Equipment no AFO Reps/Duration 5 min Comments pressure at hips all directions, slow directional changes balloon volleyball Details 5 min Surface firm, parallel bars Equipment balloon, no AFO Comments cues for equal weight-bearing, bent knees. PT-OP-R Modalities Start: 05/28/19 08:11 Freq: Status: Active Protocol: Document 12/29/20 10:30 SP (Rec: 12/29/20 11:44 SP [id number]) Electric Stimulation Electric Stimulation Functional Electric Stimulation Body Location L hand/ forearm extensors Duration (Minutes) 2 Patient Position Sitting Comments NMES- education on placement of pad for muscular feedback extension based- check self placement understanding. PT-OP-T Assessment and Plan Start: 05/28/19 08:11 Freq: Status: Active Protocol: Document 03/11/22 08:57 AW (Rec: 03/11/22 11:32 AW [id number]) Physical Therapy Assessment Goals Five Impairment gait speed not adequate for safe community ambulation Fdc Goal (LTG) Patient able to ambulate 300' in 6 min. TUG score no greater than 30 sec 06/02/20: 134' 08/28/20: 144', likely not as high due to new shoes and wearing old AFO because fits better in new shoes. Requires level 4 theraband for derotation of left LE into more neutral position for gait . 09/19/20: 146 ft 6 min w/ QC and Tb wrapping to LLE. 11/13/20: 153 ft CG w/ SPC 2>3 pt gait w/out metronome w/ reported L glut/ lateral leg burn pain, 2 step brief stand breaks. 11/24/20: progressing 173.7 ft using SPC, predominently 2 pt gait. TUG score 59 sec using SP 01/27/21: TUG 55 sec. , 6 min walk test 199.9 ft with SPC 03/19/21: 6 min walk test 165' , TUG 1:20. Continue with use of theraband for derotation of excess ER left LE with gait . 04/16/21: 6MWT 190 ft w/ SPC and TB wrapping assist hip IR. 04/23/21: 6MWT 181 ftw/ SPC and TB wrapping 06/25/21: 6MWT 180 ft with SPC and TB wrapping. TU sec 09/16/21 - average gait speed 0 .14 m/s on 6MWT which pt completed with no AD (AFO only ). 12/23/21: most recent 6 min walk test 159 ft with no theraband derotation wrap and no assistive device LTG Duration 03/26/22 Four Impairment requires assistance with bed mobility and transfers Short Term Goal (STG) Patient will be able to perform all bed mobility independently to improve her functional independence. 10/31/19: good goal progress 06/02/20:inconsistent, but min assist most times 11/24/20: Met goal: pt is independent in supine>sit. STG Duration goal met Fdc Goal (LTG) Patient will be able to perform a floor transfer with SB to min assist. 5x sit to stand score in no more than 15 sec as measure of functional strength for transfers 10/31/19: max assist today 01/02/20: has not been willing to try since 10/31/19 06/02/21: does not feel strong enough to try yet. 06/25/21: 08/28/20: max assistance required 12/02/20: remains at max assist , not recently willing to attempt floor transfer. 5x sit to stand score 26 seconds 01/27/21: not tried recently. 03/24/21: 5x sit to stand 25 sec. No floor transfer today 06/25/21: 5x sit to stand 24 sec. Patient didn't feel up to doing floor transfer, remains a concern 09/16/21: Pt willing to work on floor transfers but demonstrates a great deal of fear avoidance. 12/23/21: 5 Time Sit to Stand today in 30.4 seconds from standard height chair with no use of RUE LTG Duration 03/26/22 Three Impairment weakness left UE and LE s/p CVA Firebrick Layer Goal (LTG) Improve functional strength in left LE, as evidenced by ability to move from sit > < stand without use of UE's. 10/31/19: OT starts tomorrow. Good progress with sit to stand, though mostly using right UE and LE 01/02/20: Improving ability to perform, able to increase weight-bearing through left LE with cues, but still some use of right UE 05/26/20: With manual and visual feedback patient able to transfer sit to stand with only CG A. 08/28/20: inconsistent ability to move sit to stand without using UE's, but able to do transfer without physical assistance 11/24/20: Goal Met 01/27/21: more difficulty recently, having to use hands. Goal reactivated. 03/24/21: difficulty motor planning and performing sit to stand today. 06/25/21: patient becomes frustrated with sit to stand transfers as she expresses she feels she has a hard time remembering how to do it, has to use right UE 09/16/21 Pt completes sit to stand x 5 today without use of RUE from std height chair. LTG Duration goal met Two Impairment balance dysfunction with high risk for falls Fdc Goal (LTG) Improve balance as evidenced by improvement in Tinnetti balance and gait score to low fall risk range to improve safety in the home and community. 10/31/19: remains high risk for falls 01/02/20: some improvement but still in high risk category 05/26/20: Tinetti score in high risk category 08/28/20: moderate risk for falls 12/02/20: remains in moderate risk for falls. 01/27/21: moderate risk for falls 03/24/21: no significant change noted today but again having poor day. 06/25/21: Moderate risk for falls, though no reported falls over past few months. 09/16/21 No change 12/23/21: improved by 3 points LTG Duration 03/26/22 One Impairment requires armaan-walker for gait, limited to household gait Fdc Goal (LTG) Patient able to ambulate with least restrictive device for functional community distances to improve her functional independence and quality of life. 10/30/19: no progress due to Covid 19. 11/02/19: able to ambulate with quad cane but with very slow speed, household distances, very short community distances . 05/26/20: Now able to ambulate with use of single point cane and use of L4 theraband wrapped around left LE to facilitate left LE internal rotation for improved alignment. Patient unable to don the theraband on her own. Gait is for short distances and very slow at 39 ft in 2 min. 08/28/20: has demonstrated improved gait ability, still using theraband for derotation of LE for more neutral position. Able to consistenly use quad cane and is increasing stride length especially with cues. Now able to ascend and descend 4 stairs with min assist using railing. Mod assist on 6 stairs. 12/02/20: Patient ambulating with SPC, mostly household but some community distances, improved gait alignment with use of theraband for improved alignment. Patient not consistently able to ambulate community distances due to pain in her left LE, and lack of neurological control left LE. Patient may benefit from modification to her current AFO or fabrication of new AFO. 173 ft in 6 minutes 01/27/21: using SPC. Limitations due to left foot, knee and hip pain, right wrist pain 6 min walk test improved to 199.9 feet today 03/24/21: slower 6 min walk test today as above. Has had modification to her AFO with some improvement in her function, but had poor day today. 06/25/21: 180' on 6 min walk test, patient reports left knee feeling wonky, and right UE still painful due to surgery' having stitches out today. Also c/o lack of caregiver recently has limited her walking, no outings. Will try again next session. 09/16/21: Pt completes 6MWT without cane today/ Average gait speed 0.14 12/23/21: Adelaide is now able to ambulate indoors with no assistive device. Outdoors on level surfaces with no device with CGA, uneven surfaces requires cane and CG to mod assist. Continues to improve. LTG Duration 03/26/22 Assessment Summary Assessment Adelaide expressed preference for working without AFO today. She managed ambulation, weight shifting, and balloon volleyball with no AFO and cues for increased LLE weightbearing. Physical Therapy Plan Frequency and Duration Frequency of Treatment 2x/Week Duration of treatment (weeks) 12 Plan of Care Start Date 12/23/21 Plan of Care End Date 03/17/22 Therapeutic Interventions Therapeutic Interventions Aquatic Therapy,Balance Training,Gait Training,Home Exercise Program,Neuromuscular Re-education,Orthotic/ Prosthetic Management,Patient/ Caregiver Education,Self-Care/ Home Management,Taping, Therapeutic Activities, Therapeutic Exercises Modalities Cold Pack/Ice Massage,Hot Packs Next Visit Focus/Plan Next Note Type Treatment Note Next Visit Plan NEEDS PROGRESS NOTE/RE-EVAL? Progression of floor transfer training using large black mat . Continue gait training on uneven surfaces, functional strengthening and safety, balance retraining, continue cues for postural correction for improved function and decreased pain.
--- NOTE | 2022-03-16 12:20 | PT.OTRE ---
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 Cervical somatic dysfunction Chronic constipation Chronic left shoulder pain Chronic neck pain Chronic neck pain Chronic neck pain with abnormal neurologic examination Chronic pain Chronic pain of left lower extremity Chronic pain of right lower extremity Chronic right hip pain Chronic right shoulder pain Chronic right-sided thoracic back pain Class 2 obesity Constipation Constipation Cranial somatic dysfunction Dominant hemiplegia complicating stroke Dry mouth, unspecified Dysphagia Elevated BP without diagnosis of hypertension Excessive vitamin B12 intake Family history of colon cancer Fatigue Foot drop, left Generalized anxiety disorder GERD (gastroesophageal reflux disease) Headache Hyperextension deformity of left knee Hypothyroidism Iliotibial band syndrome, left leg Iliotibial band syndrome, left leg Irritable bowel syndrome Left hand weakness Left hemiplegia Left leg weakness Major depressive disorder Mass of right axilla Menorrhagia Mixed hyperlipidemia Neuropathic pain Obesity Obesity (BMI 35.0-39.9 without comorbidity) JM (obstructive sleep apnea) Pelvic somatic dysfunction Right wrist pain Seasonal allergies Segmental and somatic dysfunction of abdomen and other regions Segmental and somatic dysfunction of lumbar region Segmental and somatic dysfunction of rib cage Segmental and somatic dysfunction of sacral region Segmental and somatic dysfunction of thoracic region Seizure disorder Shortness of breath Sleep apnea in adult Stiff neck Stroke Throat disorder Vision changes Vision disorder Vitamin D deficiency Weight gain due to medication Weight gain finding Surgical History (Last Reviewed 03/05/22 @ 07:57 by KINJAL Cooper) Anesthesia Brain aneurysm (~03/25/15) De Quervain's syndrome (tenosynovitis) (~1996) Visit Care Team Role Provider Type KINJAL Cooper Attending Provider Advanced Watch Train Inspector Primary Care Provider Specialty: Family Practice Address: [address] [place] [address], [id number] Email: [email or web address] Physical Therapy Re-Evaluation PT-OP-A Visit Information Start: 05/28/19 08:11 Freq: Status: Active Protocol: Document 03/16/22 10:39 SAK (Rec: 03/16/22 11:18 SAK [id number]) Out-Patient Physical Therapy Visit Information Visit Information Visit Type Re-Evaluation Visit Start Time 10:37 Visit Stop Time 11:15 Total Visit Minutes 38 Visit Number 168 Precautions Precautions Seizure disorder memory dysfunction PT-OP-B Current Condition Start: 05/28/19 08:11 Freq: Status: Active Protocol: Document 06/04/20 11:15 SAK (Rec: 06/05/20 16:34 SAK [id number]) Current Condition History of Current Condition Onset Date 2014 Current Complaints weakness, requires assistance with all mobility and household tasks History of Current Condition Reports that she suffered a stroke in 2014 after surgery for brain aneurysm. CVA caused weakness on the left side of her body, gait and balance difficulty, seizures. PT-OP-C Subjective Start: 05/28/19 08:11 Freq: Status: Active Protocol: Document 03/11/22 08:57 AW (Rec: 03/11/22 11:32 AW [id number]) OP-PT Subjective Patient Comments Patient Comments Adelaide went for a walk at the [facility] after therapy on Tuesday. She feels her endurance is improving. PT-OP-D Balance Start: 05/28/19 08:11 Freq: Status: Active Protocol: Document 05/29/19 14:30 SAK (Rec: 05/30/19 14:24 SAK [id number]) OP-PT Balance Assessment Sitting Balance Static Sitting Balance Ability Good Dynamic Sitting Balance Ability Fair Standing Balance Static Standing Balance Ability Good Dynamic Standing Balance Ability Fair Device Used hemiwalker right Tinetti Balance Assessment Sitting Balance Sitting Balance Steady, safe Arising from Chair Attempts to Arise Able, requires >1 attempt Standing Balance Immediate Standing Balance Steady with support Standing Balance Steady, wide stance Nudged Response Begins to fall Standing with Eyes Closed Unsteady Turning Step Pattern Turning 360 Degrees Discontinuous steps Stability Turning 360 Degrees Unsteady, grabs/staggers Sitting Down Sitting Down Uses arms or unsteady Gait and Step Initiation of Gait Hesitancy, mult. attempts Right Foot Step Length Does not pass stance ft. Right Foot Step Height Does not clear floor Left Foot Step Length Does not pass stance foot Left Foot Step Height Does not clear floor Step Description Step Symmetry Step length not equal Gait Description Path Description Mild/moderate deviation Trunk Description Marked sway or uses aide Walking Stance Heels apart Scoring and Interpretation Tinetti Composite Score (points) 6 Interpretation of Scores High risk for falls(< 19) Herrera Fall Scale Copyright Permission Javier JM, Javier RM, Baldev SJ. Development of a scale to identify the fall- prone patient. Can J Aging 1989;8;366-7. Fabian Herrera (2009). Preventing patient falls. (2nd ed). [place]: Bai. PT-OP-E Functional Tests Start: 05/28/19 08:11 Freq: Status: Active Protocol: Document 05/14/21 10:50 AMH (Rec: 05/14/21 11:08 AMH [id number]) Functional Tests 6 Minute Walk Test Distance 169ft Device Used spc, TB wrapping Comments pt has headache today and feels that may have slowed her down. Timed Up and Go (TUG) Score 107 seconds PT-OP-G Mobility & Gait Start: 05/28/19 08:11 Freq: Status: Active Protocol: Document 05/26/20 11:15 SAK (Rec: 05/26/20 17:04 SAK [id number]) OP Mobility Evaluation Bed Mobility Rolling min assist to right CGA to left Supine to and from Sit min assist to right CGA to left Transfers Sit to Stand CGA to min assist without UE use Bed to Chair Transfers requires use of right UE but able to do with SBA Floor Transfers unable PT-OP-H Neuro Start: 05/28/19 08:11 Freq: Status: Active Protocol: Document 05/29/19 14:30 SAK (Rec: 05/30/19 14:24 SAK [id number]) Sensation Evaluation Gross Sensation Gross Sensation Left UE Impaired,Left LE Impaired Sensation Description Paresthesia,Numbness Coordination Evaluation Lower Extremity Tests Left Alternate Heel to Knee; Heel to Toe Test Moderate Impairment Heel on Boles Test Moderate Impairment Foot Tapping Test Moderate Impairment PT-OP-K Range of Motion Start: 05/28/19 08:11 Freq: Status: Active Protocol: Document 05/26/20 11:15 SAK (Rec: 05/26/20 17:04 SAK [id number]) Hip Goniometric Range of Motion Hip Measured in Degrees jake Hip ROM WFL Yes Comments actively right LE, passively left LE Knee Goniometric Range of Motion Knee Measured in Degrees jake Knee ROM WFL Yes Ankle and Foot Goniometric Range of Motion Ankle and Foot Measured in Degrees Left Passive Ankle/Foot ROM WFL No Left Active Ankle/Foot ROM WFL No PT-OP-M Strength Start: 05/28/19 08:11 Freq: Status: Active Protocol: Document 05/26/20 11:15 SAK (Rec: 05/26/20 17:04 SAK [id number]) Hip Strength Hip Manual Muscle Testing Left Flexion (L2) 3- Fair- Extension (S1) 2 Poor Abduction 2+ Poor+ External Rotation 3- Fair- Internal Rotation 3+ Fair+ Right Flexion (L2) 4 Good Extension (S1) 4- Good- Abduction 4 Good External Rotation 3+ Fair+ Internal Rotation 4- Good- PT-OP-Q Treatments Start: 05/28/19 08:11 Freq: Status: Active Protocol: Document 03/16/22 10:39 SAK (Rec: 03/16/22 11:18 SAK [id number]) Therapeutic Exercises Sitting Exercises HC stretch Side left Resistance AAROM Equipment Used manual Reps/Minutes 30 x 2 Gait Training Gait Activity parallel bars Description forward Device Used //bar mostly no UE support, occasional light touch support Level of Assistance no AFO Surface firm Distance/Duration 3x each direction Treatment Focus neutral alignment, weight- shift over LLE required verbal sequencing 6 min walk test Description AFO only Level of Assistance SBA- CGA Surface firm Distance/Duration 182'/6 min Comments Pt reaches for wall 4 times during six minutes but does not lean on it. No cane. Distracted and talking more due to losing caregiver. Neuro Re-Education Treatment Balance Activities rhythmic stabilization Details standing Surface firm Equipment no AFO Reps/Duration 5 min Comments pressure at hips all directions, slow directional changes PT-OP-R Modalities Start: 05/28/19 08:11 Freq: Status: Active Protocol: Document 12/29/20 10:30 SP (Rec: 12/29/20 11:44 SP [id number]) Electric Stimulation Electric Stimulation Functional Electric Stimulation Body Location L hand/ forearm extensors Duration (Minutes) 2 Patient Position Sitting Comments NMES- education on placement of pad for muscular feedback extension based- check self placement understanding. PT-OP-T Assessment and Plan Start: 05/28/19 08:11 Freq: Status: Active Protocol: Document 03/16/22 10:39 SAK (Rec: 03/16/22 11:18 SAK [id number]) Physical Therapy Assessment Goals Five Impairment gait speed not adequate for safe community ambulation Analytical Manager Goal (LTG) Patient able to ambulate 300' in 6 min. TUG score no greater than 30 sec 06/02/20: 134' 08/28/20: 144', likely not as high due to new shoes and wearing old AFO because fits better in new shoes. Requires level 4 theraband for derotation of left LE into more neutral position for gait . 09/19/20: 146 ft 6 min w/ QC and Tb wrapping to LLE. 11/13/20: 153 ft CG w/ SPC 2>3 pt gait w/out metronome w/ reported L glut/ lateral leg burn pain, 2 step brief stand breaks. 11/24/20: progressing 173.7 ft using SPC, predominently 2 pt gait. TUG score 59 sec using SP 01/27/21: TUG 55 sec. , 6 min walk test 199.9 ft with SPC 03/19/21: 6 min walk test 165' , TUG 1:20. Continue with use of theraband for derotation of excess ER left LE with gait . 04/16/21: 6MWT 190 ft w/ SPC and TB wrapping assist hip IR. 04/23/21: 6MWT 181 ftw/ SPC and TB wrapping 06/25/21: 6MWT 180 ft with SPC and TB wrapping. TU sec 09/16/21 - average gait speed 0 .14 m/s on 6MWT which pt completed with no AD (AFO only ). 12/23/21: most recent 6 min walk test 159 ft with no theraband derotation wrap and no assistive device LTG Duration 06/14/22 Four Impairment requires assistance with bed mobility and transfers Short Term Goal (STG) Patient will be able to perform all bed mobility independently to improve her functional independence. 10/31/19: good goal progress 06/02/20:inconsistent, but min assist most times 11/24/20: Met goal: pt is independent in supine>sit. STG Duration goal met Assisted Goal (LTG) Patient will be able to perform a floor transfer with SB to min assist. 5x sit to stand score in no more than 15 sec as measure of functional strength for transfers 10/31/19: max assist today 01/02/20: has not been willing to try since 10/31/19 06/02/21: does not feel strong enough to try yet. 06/25/21: 08/28/20: max assistance required 12/02/20: remains at max assist , not recently willing to attempt floor transfer. 5x sit to stand score 26 seconds 01/27/21: not tried recently. 03/24/21: 5x sit to stand 25 sec. No floor transfer today 06/25/21: 5x sit to stand 24 sec. Patient didn't feel up to doing floor transfer, remains a concern 09/16/21: Pt willing to work on floor transfers but demonstrates a great deal of fear avoidance. 12/23/21: 5 Time Sit to Stand today in 30.4 seconds from standard height chair with no use of RUE LTG Duration 06/14/22 Three Impairment weakness left UE and LE s/p CVA Assisted Goal (LTG) Improve functional strength in left LE, as evidenced by ability to move from sit > < stand without use of UE's. 10/31/19: OT starts tomorrow. Good progress with sit to stand, though mostly using right UE and LE 01/02/20: Improving ability to perform, able to increase weight-bearing through left LE with cues, but still some use of right UE 05/26/20: With manual and visual feedback patient able to transfer sit to stand with only CG A. 08/28/20: inconsistent ability to move sit to stand without using UE's, but able to do transfer without physical assistance 11/24/20: Goal Met 01/27/21: more difficulty recently, having to use hands. Goal reactivated. 03/24/21: difficulty motor planning and performing sit to stand today. 06/25/21: patient becomes frustrated with sit to stand transfers as she expresses she feels she has a hard time remembering how to do it, has to use right UE 09/16/21 Pt completes sit to stand x 5 today without use of RUE from std height chair. LTG Duration goal met Two Impairment balance dysfunction with high risk for falls Assisted Goal (LTG) Improve balance as evidenced by improvement in Tinnetti balance and gait score to low fall risk range to improve safety in the home and community. 10/31/19: remains high risk for falls 01/02/20: some improvement but still in high risk category 05/26/20: Tinetti score in high risk category 08/28/20: moderate risk for falls 12/02/20: remains in moderate risk for falls. 01/27/21: moderate risk for falls 03/24/21: no significant change noted today but again having poor day. 06/25/21: Moderate risk for falls, though no reported falls over past few months. 09/16/21 No change 12/23/21: improved by 3 points 03/16/22: no further change this treatment period LTG Duration 06/14/22 One Impairment requires armaan-walker for gait, limited to household gait Assisted Goal (LTG) Patient able to ambulate with least restrictive device for functional community distances to improve her functional independence and quality of life. 10/30/19: no progress due to Covid 19. 11/02/19: able to ambulate with quad cane but with very slow speed, household distances, very short community distances . 05/26/20: Now able to ambulate with use of single point cane and use of L4 theraband wrapped around left LE to facilitate left LE internal rotation for improved alignment. Patient unable to don the theraband on her own. Gait is for short distances and very slow at 39 ft in 2 min. 08/28/20: has demonstrated improved gait ability, still using theraband for derotation of LE for more neutral position. Able to consistenly use quad cane and is increasing stride length especially with cues. Now able to ascend and descend 4 stairs with min assist using railing. Mod assist on 6 stairs. 12/02/20: Patient ambulating with SPC, mostly household but some community distances, improved gait alignment with use of theraband for improved alignment. Patient not consistently able to ambulate community distances due to pain in her left LE, and lack of neurological control left LE. Patient may benefit from modification to her current AFO or fabrication of new AFO. 173 ft in 6 minutes 01/27/21: using SPC. Limitations due to left foot, knee and hip pain, right wrist pain 6 min walk test improved to 199.9 feet today 03/24/21: slower 6 min walk test today as above. Has had modification to her AFO with some improvement in her function, but had poor day today. 06/25/21: 180' on 6 min walk test, patient reports left knee feeling wonky, and right UE still painful due to surgery' having stitches out today. Also c/o lack of caregiver recently has limited her walking, no outings. Will try again next session. 09/16/21: Pt completes 6MWT without cane today/ Average gait speed 0.14 12/23/21: Adelaide is now able to ambulate indoors with no assistive device. Outdoors on level surfaces with no device with CGA, uneven surfaces requires cane and CG to mod assist. Continues to improve. 03/16/22: No improvement in speed, though patient continues to be able to ambulate without device most of the time in PT though doesn 't do at home due to fear. Improved confidence on compliant surface in clinic with ability to do without device. LTG Duration 06/14/22 Assessment Summary Assessment 182 ft on 6 min walk. Physical Therapy Plan Frequency and Duration Frequency of Treatment 2x/Week Duration of treatment (weeks) 12 Plan of Care Start Date 03/16/22 Plan of Care End Date 06/14/22 Therapeutic Interventions Therapeutic Interventions Aquatic Therapy,Balance Training,Gait Training,Home Exercise Program,Neuromuscular Re-education,Orthotic/ Prosthetic Management,Patient/ Caregiver Education,Self-Care/ Home Management,Taping, Therapeutic Activities, Therapeutic Exercises Modalities Cold Pack/Ice Massage,Hot Packs Next Visit Focus/Plan Next Note Type Treatment Note Next Visit Plan Continue closed chain activities without AFO as tolerated and progress gait with AFO for safety, improved functional speed, balance with least restrictive device. Floor transfers. Functional strengthening and flexibility exercises.
--- NOTE | 2022-03-18 11:32 | PT.OTN ---
Current Diagnoses Difficulty in walking, not elsewhere classified (03/18/22) Weakness (03/18/22) History of falling (03/18/22) Physical Therapy Treatment Note PT-OP-A Visit Information Start: 05/28/19 08:11 Freq: Status: Active Protocol: Document 03/18/22 09:33 AW (Rec: 03/18/22 11:32 AW [id number]) Out-Patient Physical Therapy Visit Information Visit Information Visit Type Treatment Note Visit Start Time 10:30 Visit Stop Time 11:15 Total Visit Minutes 45 Visit Number 169 Precautions Precautions Seizure disorder memory dysfunction PT-OP-B Current Condition Start: 05/28/19 08:11 Freq: Status: Active Protocol: Document 06/04/20 11:15 SAK (Rec: 06/05/20 16:34 SAK [id number]) Current Condition History of Current Condition Onset Date 2014 Current Complaints weakness, requires assistance with all mobility and household tasks History of Current Condition Reports that she suffered a stroke in 2014 after surgery for brain aneurysm. CVA caused weakness on the left side of her body, gait and balance difficulty, seizures. PT-OP-C Subjective Start: 05/28/19 08:11 Freq: Status: Active Protocol: Document 03/18/22 09:33 AW (Rec: 03/18/22 11:32 AW [id number]) OP-PT Subjective Patient Comments Patient Comments Today is Adelaide's caregiver's last day. She is uncertain about what kind of help she will be able to get and is concerned that it will be a short term relationship, anyway, if she does end up moving. PT-OP-D Balance Start: 05/28/19 08:11 Freq: Status: Active Protocol: Document 05/29/19 14:30 SAK (Rec: 05/30/19 14:24 SAK [id number]) OP-PT Balance Assessment Sitting Balance Static Sitting Balance Ability Good Dynamic Sitting Balance Ability Fair Standing Balance Static Standing Balance Ability Good Dynamic Standing Balance Ability Fair Device Used hemiwalker right Tinetti Balance Assessment Sitting Balance Sitting Balance Steady, safe Arising from Chair Attempts to Arise Able, requires >1 attempt Standing Balance Immediate Standing Balance Steady with support Standing Balance Steady, wide stance Nudged Response Begins to fall Standing with Eyes Closed Unsteady Turning Step Pattern Turning 360 Degrees Discontinuous steps Stability Turning 360 Degrees Unsteady, grabs/staggers Sitting Down Sitting Down Uses arms or unsteady Gait and Step Initiation of Gait Hesitancy, mult. attempts Right Foot Step Length Does not pass stance ft. Right Foot Step Height Does not clear floor Left Foot Step Length Does not pass stance foot Left Foot Step Height Does not clear floor Step Description Step Symmetry Step length not equal Gait Description Path Description Mild/moderate deviation Trunk Description Marked sway or uses aide Walking Stance Heels apart Scoring and Interpretation Tinetti Composite Score (points) 6 Interpretation of Scores High risk for falls(< 19) Herrera Fall Scale Copyright Permission PT-OP-E Functional Tests Start: 05/28/19 08:11 Freq: Status: Active Protocol: Document 05/14/21 10:50 [facility] (Rec: 05/14/21 11:08 [facility] [id number]) Functional Tests 6 Minute Walk Test Distance 169ft Device Used spc, TB wrapping Comments pt has headache today and feels that may have slowed her down. Timed Up and Go (TUG) Score 107 seconds PT-OP-G Mobility & Gait Start: 05/28/19 08:11 Freq: Status: Active Protocol: Document 05/26/20 11:15 [facility] (Rec: 05/26/20 17:04 [facility] [id number]) OP Mobility Evaluation Bed Mobility Rolling min assist to right CGA to left Supine to and from Sit min assist to right CGA to left Transfers Sit to Stand CGA to min assist without UE use Bed to Chair Transfers requires use of right UE but able to do with SBA Floor Transfers unable PT-OP-H Neuro Start: 05/28/19 08:11 Freq: Status: Active Protocol: Document 05/29/19 14:30 SAK (Rec: 05/30/19 14:24 [facility] [id number]) Sensation Evaluation Gross Sensation Gross Sensation Left UE Impaired,Left LE Impaired Sensation Description Paresthesia,Numbness Coordination Evaluation Lower Extremity Tests Left Alternate Heel to Knee; Heel to Toe Test Moderate Impairment Heel on Boles Test Moderate Impairment Foot Tapping Test Moderate Impairment PT-OP-K Range of Motion Start: 05/28/19 08:11 Freq: Status: Active Protocol: Document 05/26/20 11:15 SAK (Rec: 05/26/20 17:04 [facility] [id number]) Hip Goniometric Range of Motion Hip jake Hip ROM WFL Yes Comments actively right LE, passively left LE Knee Goniometric Range of Motion Knee jake Knee ROM WFL Yes Ankle and Foot Goniometric Range of Motion Ankle and Foot Left Passive Ankle/Foot ROM WFL No Left Active Ankle/Foot ROM WFL No PT-OP-M Strength Start: 05/28/19 08:11 Freq: Status: Active Protocol: Document 05/26/20 11:15 SAK (Rec: 05/26/20 17:04 [facility] [id number]) Hip Strength Hip Manual Muscle Testing Left Flexion (L2) 3- Fair- Extension (S1) 2 Poor Abduction 2+ Poor+ External Rotation 3- Fair- Internal Rotation 3+ Fair+ Right Flexion (L2) 4 Good Extension (S1) 4- Good- Abduction 4 Good External Rotation 3+ Fair+ Internal Rotation 4- Good- PT-OP-Q Treatments Start: 05/28/19 08:11 Freq: Status: Active Protocol: Document 03/18/22 09:33 AW (Rec: 03/18/22 11:32 AW [id number]) Therapeutic Exercises Standing Exercises squats Equipment Used no AFO, // Reps/Minutes 15x Comments wt on LLE sit stands w/ AFO donned Standing Exercise Name no RUE assist Equipment Used from black tx table 19 Reps/Minutes 2x8 Comments verbal and manual cues for LLE positioning, weight shift toward left Therapeutic Activity Therapeutic Activity sit>sideling> kneeling Comments - seated to sidelying with SBA assist, min assist to knees 2 trials with PT 1/2 kneeling beside, patient using thigh for stability - QL walk fwd/bwd x 3 to work on floor scooting - c/o left knee pain so dc'ed Gait Training Gait Activity backward Device Used none, no AFO Level of Assistance CGA Surface firm, parallel bars Distance/Duration 5' x 2 Treatment Focus decreased support, gluteal activation Comments mirror for visual feedback. parallel bars Description forward Device Used //bar mostly no UE support, occasional light touch support Level of Assistance no AFO Surface firm Distance/Duration 3x each direction Treatment Focus neutral alignment, weight- shift over LLE required verbal sequencing curb simulation Description ascend/descend Device Used right rail Level of Assistance SBA/CGA Surface 6 step, blue foam, yoga mat over step/under step Distance/Duration 8x Treatment Focus increase stability curb mgt Comments cued quad facilitation L knee stance LE during RLE advancement to ascend, and decreased UE support Neuro Re-Education Treatment Balance Activities rhythmic stabilization Details standing Surface firm Equipment no AFO Reps/Duration 5 min Comments pressure at hips all directions, slow directional changes PT-OP-R Modalities Start: 05/28/19 08:11 Freq: Status: Active Protocol: Document 12/29/20 10:30 SP (Rec: 12/29/20 11:44 SP [id number]) Electric Stimulation Electric Stimulation Functional Electric Stimulation Body Location L hand/ forearm extensors Duration (Minutes) 2 Patient Position Sitting Comments NMES- education on placement of pad for muscular feedback extension based- check self placement understanding. PT-OP-T Assessment and Plan Start: 05/28/19 08:11 Freq: Status: Active Protocol: Document 03/18/22 09:33 AW (Rec: 03/18/22 11:32 AW [id number]) Physical Therapy Assessment Goals Five Impairment gait speed not adequate for safe community ambulation [facility] Goal (LTG) Patient able to ambulate 300' in 6 min. TUG score no greater than 30 sec 06/02/20: 134' 08/28/20: 144', likely not as high due to new shoes and wearing old AFO because fits better in new shoes. Requires level 4 theraband for derotation of left LE into more neutral position for gait . 09/19/20: 146 ft 6 min w/ QC and Tb wrapping to LLE. 11/13/20: 153 ft CG w/ SPC 2>3 pt gait w/out metronome w/ reported L glut/ lateral leg burn pain, 2 step brief stand breaks. 11/24/20: progressing 173.7 ft using SPC, predominently 2 pt gait. TUG score 59 sec using SP 01/27/21: TUG 55 sec. , 6 min walk test 199.9 ft with SPC 03/19/21: 6 min walk test 165' , TUG 1:20. Continue with use of theraband for derotation of excess ER left LE with gait . 04/16/21: 6MWT 190 ft w/ SPC and TB wrapping assist hip IR. 04/23/21: 6MWT 181 ftw/ SPC and TB wrapping 06/25/21: 6MWT 180 ft with SPC and TB wrapping. TU sec 09/16/21 - average gait speed 0 .14 m/s on 6MWT which pt completed with no AD (AFO only ). 12/23/21: most recent 6 min walk test 159 ft with no theraband derotation wrap and no assistive device LTG Duration 06/14/22 Four Impairment requires assistance with bed mobility and transfers Short Term Goal (STG) Patient will be able to perform all bed mobility independently to improve her functional independence. 10/31/19: good goal progress 06/02/20:inconsistent, but min assist most times 11/24/20: Met goal: pt is independent in supine>sit. STG Duration goal met [facility] Goal (LTG) Patient will be able to perform a floor transfer with SB to min assist. 5x sit to stand score in no more than 15 sec as measure of functional strength for transfers 10/31/19: max assist today 01/02/20: has not been willing to try since 10/31/19 06/02/21: does not feel strong enough to try yet. 06/25/21: 08/28/20: max assistance required 12/02/20: remains at max assist , not recently willing to attempt floor transfer. 5x sit to stand score 26 seconds 01/27/21: not tried recently. 03/24/21: 5x sit to stand 25 sec. No floor transfer today 06/25/21: 5x sit to stand 24 sec. Patient didn't feel up to doing floor transfer, remains a concern 09/16/21: Pt willing to work on floor transfers but demonstrates a great deal of fear avoidance. 12/23/21: 5 Time Sit to Stand today in 30.4 seconds from standard height chair with no use of RUE LTG Duration 06/14/22 Three Impairment weakness left UE and LE s/p CVA [facility] Goal (LTG) Improve functional strength in left LE, as evidenced by ability to move from sit > < stand without use of UE's. 10/31/19: OT starts tomorrow. Good progress with sit to stand, though mostly using right UE and LE 01/02/20: Improving ability to perform, able to increase weight-bearing through left LE with cues, but still some use of right UE 05/26/20: With manual and visual feedback patient able to transfer sit to stand with only CG A. 08/28/20: inconsistent ability to move sit to stand without using UE's, but able to do transfer without physical assistance 11/24/20: Goal Met 01/27/21: more difficulty recently, having to use hands. Goal reactivated. 03/24/21: difficulty motor planning and performing sit to stand today. 06/25/21: patient becomes frustrated with sit to stand transfers as she expresses she feels she has a hard time remembering how to do it, has to use right UE 09/16/21 Pt completes sit to stand x 5 today without use of RUE from std height chair. LTG Duration goal met Two Impairment balance dysfunction with high risk for falls [facility] Goal (LTG) Improve balance as evidenced by improvement in Tinnetti balance and gait score to low fall risk range to improve safety in the home and community. 10/31/19: remains high risk for falls 01/02/20: some improvement but still in high risk category 05/26/20: Tinetti score in high risk category 08/28/20: moderate risk for falls 12/02/20: remains in moderate risk for falls. 01/27/21: moderate risk for falls 03/24/21: no significant change noted today but again having poor day. 06/25/21: Moderate risk for falls, though no reported falls over past few months. 09/16/21 No change 12/23/21: improved by 3 points 03/16/22: no further change this treatment period LTG Duration 06/14/22 One Impairment requires armaan-walker for gait, limited to household gait [facility] Goal (LTG) Patient able to ambulate with least restrictive device for functional community distances to improve her functional independence and quality of life. 10/30/19: no progress due to Covid 19. 11/02/19: able to ambulate with quad cane but with very slow speed, household distances, very short community distances . 05/26/20: Now able to ambulate with use of single point cane and use of L4 theraband wrapped around left LE to facilitate left LE internal rotation for improved alignment. Patient unable to don the theraband on her own. Gait is for short distances and very slow at 39 ft in 2 min. 08/28/20: has demonstrated improved gait ability, still using theraband for derotation of LE for more neutral position. Able to consistenly use quad cane and is increasing stride length especially with cues. Now able to ascend and descend 4 stairs with min assist using railing. Mod assist on 6 stairs. 12/02/20: Patient ambulating with SPC, mostly household but some community distances, improved gait alignment with use of theraband for improved alignment. Patient not consistently able to ambulate community distances due to pain in her left LE, and lack of neurological control left LE. Patient may benefit from modification to her current AFO or fabrication of new AFO. 173 ft in 6 minutes 01/27/21: using SPC. Limitations due to left foot, knee and hip pain, right wrist pain 6 min walk test improved to 199.9 feet today 03/24/21: slower 6 min walk test today as above. Has had modification to her AFO with some improvement in her function, but had poor day today. 06/25/21: 180' on 6 min walk test, patient reports left knee feeling wonky, and right UE still painful due to surgery' having stitches out today. Also c/o lack of caregiver recently has limited her walking, no outings. Will try again next session. 09/16/21: Pt completes 6MWT without cane today/ Average gait speed 0.14 12/23/21: Adelaide is now able to ambulate indoors with no assistive device. Outdoors on level surfaces with no device with CGA, uneven surfaces requires cane and CG to mod assist. Continues to improve. 03/16/22: No improvement in speed, though patient continues to be able to ambulate without device most of the time in PT though doesn 't do at home due to fear. Improved confidence on compliant surface in clinic with ability to do without device. LTG Duration 06/14/22 Assessment Summary Assessment Adelaide is able to decrease her UE dependence during curb simulation today. Continued working on getting into kneeling position. Knee pain was limiting factor. Motor planning remains challenging. Physical Therapy Plan Frequency and Duration Frequency of Treatment 2x/Week Duration of treatment (weeks) 12 Plan of Care Start Date 03/16/22 Plan of Care End Date 06/14/22 Therapeutic Interventions Therapeutic Interventions Aquatic Therapy,Balance Training,Gait Training,Home Exercise Program,Neuromuscular Re-education,Orthotic/ Prosthetic Management,Patient/ Caregiver Education,Self-Care/ Home Management,Taping, Therapeutic Activities, Therapeutic Exercises Modalities Cold Pack/Ice Massage,Hot Packs Next Visit Focus/Plan Next Note Type Treatment Note Next Visit Plan Continue closed chain activities without AFO as tolerated and progress gait with AFO for safety, improved functional speed, balance with least restrictive device. Floor transfers. Functional strengthening and flexibility exercises.
--- NOTE | 2022-03-23 17:02 | PT.OTN ---
Current Diagnoses Difficulty in walking, not elsewhere classified (03/23/22) Weakness (03/23/22) History of falling (03/23/22) Physical Therapy Treatment Note PT-OP-A Visit Information Start: 05/28/19 08:11 Freq: Status: Active Protocol: Document 03/23/22 10:36 SAK (Rec: 03/23/22 11:16 [facility] [id number]) Out-Patient Physical Therapy Visit Information Visit Information Visit Type Treatment Note Visit Start Time 10:30 Visit Stop Time 11:15 Total Visit Minutes 45 Visit Number 170 Precautions Precautions Seizure disorder memory dysfunction PT-OP-B Current Condition Start: 05/28/19 08:11 Freq: Status: Active Protocol: Document 06/04/20 11:15 SAK (Rec: 06/05/20 16:34 SAK [id number]) Current Condition History of Current Condition Onset Date 2014 Current Complaints weakness, requires assistance with all mobility and household tasks History of Current Condition Reports that she suffered a stroke in 2014 after surgery for brain aneurysm. CVA caused weakness on the left side of her body, gait and balance difficulty, seizures. PT-OP-C Subjective Start: 05/28/19 08:11 Freq: Status: Active Protocol: Document 03/23/22 10:36 SAK (Rec: 03/23/22 11:16 [facility] [id number]) OP-PT Subjective Patient Comments Patient Comments Caregiver last week, Adelaide will be taking bus on Tuesday. Reports low back has been bothering her more recently, doesn't feel up to working on the mat. PT-OP-D Balance Start: 05/28/19 08:11 Freq: Status: Active Protocol: Document 05/29/19 14:30 SAK (Rec: 05/30/19 14:24 [facility] [id number]) OP-PT Balance Assessment Sitting Balance Static Sitting Balance Ability Good Dynamic Sitting Balance Ability Fair Standing Balance Static Standing Balance Ability Good Dynamic Standing Balance Ability Fair Device Used [facility] right Tinetti Balance Assessment Sitting Balance Sitting Balance Steady, safe Arising from Chair Attempts to Arise Able, requires >1 attempt Standing Balance Immediate Standing Balance Steady with support Standing Balance Steady, wide stance Nudged Response Begins to fall Standing with Eyes Closed Unsteady Turning Step Pattern Turning 360 Degrees Discontinuous steps Stability Turning 360 Degrees Unsteady, grabs/staggers Sitting Down Sitting Down Uses arms or unsteady Gait and Step Initiation of Gait Hesitancy, mult. attempts Right Foot Step Length Does not pass stance ft. Right Foot Step Height Does not clear floor Left Foot Step Length Does not pass stance foot Left Foot Step Height Does not clear floor Step Description Step Symmetry Step length not equal Gait Description Path Description Mild/moderate deviation Trunk Description Marked sway or uses aide Walking Stance Heels apart Scoring and Interpretation Tinetti Composite Score (points) 6 Interpretation of Scores High risk for falls(< 19) Herrera Fall Scale Copyright Permission PT-OP-E Functional Tests Start: 05/28/19 08:11 Freq: Status: Active Protocol: Document 05/14/21 10:50 [facility] (Rec: 05/14/21 11:08 [facility] [id number]) Functional Tests 6 Minute Walk Test Distance 169ft Device Used spc, TB wrapping Comments pt has headache today and feels that may have slowed her down. Timed Up and Go (TUG) Score 107 seconds PT-OP-G Mobility & Gait Start: 05/28/19 08:11 Freq: Status: Active Protocol: Document 05/26/20 11:15 SAK (Rec: 05/26/20 17:04 [facility] [id number]) OP Mobility Evaluation Bed Mobility Rolling min assist to right CGA to left Supine to and from Sit min assist to right CGA to left Transfers Sit to Stand CGA to min assist without UE use Bed to Chair Transfers requires use of right UE but able to do with SBA Floor Transfers unable PT-OP-H Neuro Start: 05/28/19 08:11 Freq: Status: Active Protocol: Document 05/29/19 14:30 SAK (Rec: 05/30/19 14:24 [facility] [id number]) Sensation Evaluation Gross Sensation Gross Sensation Left UE Impaired,Left LE Impaired Sensation Description Paresthesia,Numbness Coordination Evaluation Lower Extremity Tests Left Alternate Heel to Knee; Heel to Toe Test Moderate Impairment Heel on Boles Test Moderate Impairment Foot Tapping Test Moderate Impairment PT-OP-K Range of Motion Start: 05/28/19 08:11 Freq: Status: Active Protocol: Document 05/26/20 11:15 SAK (Rec: 05/26/20 17:04 [facility] [id number]) Hip Goniometric Range of Motion Hip jake Hip ROM WFL Yes Comments actively right LE, passively left LE Knee Goniometric Range of Motion Knee jake Knee ROM WFL Yes Ankle and Foot Goniometric Range of Motion Ankle and Foot Left Passive Ankle/Foot ROM WFL No Left Active Ankle/Foot ROM WFL No PT-OP-M Strength Start: 05/28/19 08:11 Freq: Status: Active Protocol: Document 05/26/20 11:15 SAK (Rec: 05/26/20 17:04 [facility] [id number]) Hip Strength Hip Manual Muscle Testing Left Flexion (L2) 3- Fair- Extension (S1) 2 Poor Abduction 2+ Poor+ External Rotation 3- Fair- Internal Rotation 3+ Fair+ Right Flexion (L2) 4 Good Extension (S1) 4- Good- Abduction 4 Good External Rotation 3+ Fair+ Internal Rotation 4- Good- PT-OP-Q Treatments Start: 05/28/19 08:11 Freq: Status: Active Protocol: Document 03/23/22 10:36 SAK (Rec: 03/23/22 11:16 [facility] [id number]) Cardio Equipment Recumbent Stepper (Sci-Fit) Duration (Minutes) 10 Resistance 1.8-2.0 Seat Position 11 Other cues for left LE alignment, 1. 27 mile Gym Equipment Shuttle Balance green Details balance, WBOS, balloon volleyball Reps/Duration 5 min Therapeutic Exercises Standing Exercises squats Equipment Used no AFO, // Reps/Minutes 15x Comments wt on LLE Gait Training Gait Activity backward Device Used none, no AFO Level of Assistance CGA Surface firm, parallel bars Distance/Duration 5' x 2 Treatment Focus decreased support, gluteal activation Comments mirror for visual feedback. parallel bars Description forward Device Used //bar mostly no UE support, occasional light touch support Level of Assistance no AFO Surface firm Distance/Duration 3x each direction Treatment Focus neutral alignment, weight- shift over LLE required verbal sequencing curb simulation Description ascend/descend Device Used right rail Level of Assistance SBA/CGA Surface 6 step, blue foam, yoga mat over step/under step Distance/Duration 8x Treatment Focus increase stability curb mgt Comments cued quad facilitation L knee stance LE during RLE advancement to ascend, and decreased UE support Neuro Re-Education Treatment Balance Activities rhythmic stabilization Details standing Surface firm Equipment no AFO Reps/Duration 5 min Comments pressure at hips all directions, slow directional changes PT-OP-R Modalities Start: 05/28/19 08:11 Freq: Status: Active Protocol: Document 12/29/20 10:30 SP (Rec: 12/29/20 11:44 SP [id number]) Electric Stimulation Electric Stimulation Functional Electric Stimulation Body Location L hand/ forearm extensors Duration (Minutes) 2 Patient Position Sitting Comments NMES- education on placement of pad for muscular feedback extension based- check self placement understanding. PT-OP-T Assessment and Plan Start: 05/28/19 08:11 Freq: Status: Active Protocol: Document 03/23/22 10:36 SAK (Rec: 03/23/22 11:16 SAK [id number]) Physical Therapy Assessment Goals Five Impairment gait speed not adequate for safe community ambulation Human Resources Training Manager Goal (LTG) Patient able to ambulate 300' in 6 min. TUG score no greater than 30 sec 06/02/20: 134' 08/28/20: 144', likely not as high due to new shoes and wearing old AFO because fits better in new shoes. Requires level 4 theraband for derotation of left LE into more neutral position for gait . 09/19/20: 146 ft 6 min w/ QC and Tb wrapping to LLE. 11/13/20: 153 ft CG w/ SPC 2>3 pt gait w/out metronome w/ reported L glut/ lateral leg burn pain, 2 step brief stand breaks. 11/24/20: progressing 173.7 ft using SPC, predominently 2 pt gait. TUG score 59 sec using SP 01/27/21: TUG 55 sec. , 6 min walk test 199.9 ft with SPC 03/19/21: 6 min walk test 165' , TUG 1:20. Continue with use of theraband for derotation of excess ER left LE with gait . 04/16/21: 6MWT 190 ft w/ SPC and TB wrapping assist hip IR. 04/23/21: 6MWT 181 ftw/ SPC and TB wrapping 06/25/21: 6MWT 180 ft with SPC and TB wrapping. TU sec 09/16/21 - average gait speed 0 .14 m/s on 6MWT which pt completed with no AD (AFO only ). 12/23/21: most recent 6 min walk test 159 ft with no theraband derotation wrap and no assistive device LTG Duration 06/14/22 Four Impairment requires assistance with bed mobility and transfers Short Term Goal (STG) Patient will be able to perform all bed mobility independently to improve her functional independence. 10/31/19: good goal progress 06/02/20:inconsistent, but min assist most times 11/24/20: Met goal: pt is independent in supine>sit. STG Duration goal met Human Resources Training Manager Goal (LTG) Patient will be able to perform a floor transfer with SB to min assist. 5x sit to stand score in no more than 15 sec as measure of functional strength for transfers 10/31/19: max assist today 01/02/20: has not been willing to try since 10/31/19 06/02/21: does not feel strong enough to try yet. 06/25/21: 08/28/20: max assistance required 12/02/20: remains at max assist , not recently willing to attempt floor transfer. 5x sit to stand score 26 seconds 01/27/21: not tried recently. 03/24/21: 5x sit to stand 25 sec. No floor transfer today 06/25/21: 5x sit to stand 24 sec. Patient didn't feel up to doing floor transfer, remains a concern 09/16/21: Pt willing to work on floor transfers but demonstrates a great deal of fear avoidance. 12/23/21: 5 Time Sit to Stand today in 30.4 seconds from standard height chair with no use of RUE LTG Duration 06/14/22 Three Impairment weakness left UE and LE s/p CVA Mcc Goal (LTG) Improve functional strength in left LE, as evidenced by ability to move from sit > < stand without use of UE's. 10/31/19: OT starts tomorrow. Good progress with sit to stand, though mostly using right UE and LE 01/02/20: Improving ability to perform, able to increase weight-bearing through left LE with cues, but still some use of right UE 05/26/20: With manual and visual feedback patient able to transfer sit to stand with only CG A. 08/28/20: inconsistent ability to move sit to stand without using UE's, but able to do transfer without physical assistance 11/24/20: Goal Met 01/27/21: more difficulty recently, having to use hands. Goal reactivated. 03/24/21: difficulty motor planning and performing sit to stand today. 06/25/21: patient becomes frustrated with sit to stand transfers as she expresses she feels she has a hard time remembering how to do it, has to use right UE 09/16/21 Pt completes sit to stand x 5 today without use of RUE from std height chair. LTG Duration goal met Two Impairment balance dysfunction with high risk for falls Human Resources Training Manager Goal (LTG) Improve balance as evidenced by improvement in Tinnetti balance and gait score to low fall risk range to improve safety in the home and community. 10/31/19: remains high risk for falls 01/02/20: some improvement but still in high risk category 05/26/20: Tinetti score in high risk category 08/28/20: moderate risk for falls 12/02/20: remains in moderate risk for falls. 01/27/21: moderate risk for falls 03/24/21: no significant change noted today but again having poor day. 06/25/21: Moderate risk for falls, though no reported falls over past few months. 09/16/21 No change 12/23/21: improved by 3 points 03/16/22: no further change this treatment period LTG Duration 06/14/22 One Impairment requires armaan-walker for gait, limited to household gait Mcc Goal (LTG) Patient able to ambulate with least restrictive device for functional community distances to improve her functional independence and quality of life. 10/30/19: no progress due to Covid 19. 11/02/19: able to ambulate with quad cane but with very slow speed, household distances, very short community distances . 05/26/20: Now able to ambulate with use of single point cane and use of L4 theraband wrapped around left LE to facilitate left LE internal rotation for improved alignment. Patient unable to don the theraband on her own. Gait is for short distances and very slow at 39 ft in 2 min. 08/28/20: has demonstrated improved gait ability, still using theraband for derotation of LE for more neutral position. Able to consistenly use quad cane and is increasing stride length especially with cues. Now able to ascend and descend 4 stairs with min assist using railing. Mod assist on 6 stairs. 12/02/20: Patient ambulating with SPC, mostly household but some community distances, improved gait alignment with use of theraband for improved alignment. Patient not consistently able to ambulate community distances due to pain in her left LE, and lack of neurological control left LE. Patient may benefit from modification to her current AFO or fabrication of new AFO. 173 ft in 6 minutes 01/27/21: using SPC. Limitations due to left foot, knee and hip pain, right wrist pain 6 min walk test improved to 199.9 feet today 03/24/21: slower 6 min walk test today as above. Has had modification to her AFO with some improvement in her function, but had poor day today. 06/25/21: 180' on 6 min walk test, patient reports left knee feeling wonky, and right UE still painful due to surgery' having stitches out today. Also c/o lack of caregiver recently has limited her walking, no outings. Will try again next session. 09/16/21: Pt completes 6MWT without cane today/ Average gait speed 0.14 12/23/21: [place] is now able to ambulate indoors with no assistive device. Outdoors on level surfaces with no device with CGA, uneven surfaces requires cane and CG to mod assist. Continues to improve. 03/16/22: No improvement in speed, though patient continues to be able to ambulate without device most of the time in PT though doesn 't do at home due to fear. Improved confidence on compliant surface in clinic with ability to do without device. LTG Duration 06/14/22 Assessment Summary Assessment Patient initially expressing fatigue but after SCi-Fit ( improved distance) reported feeling improved and had good tolerance for ther ex including shuttle balance and balance and gait activities in parallel bars. Has been trying to do more standing at home without AFO as recommended by PT. Caregiver issues stressful for patient at this time, will be bringing bus to PT until agency able to find her a new caregiver. Physical Therapy Plan Frequency and Duration Frequency of Treatment 2x/Week Duration of treatment (weeks) 12 Plan of Care Start Date 03/16/22 Plan of Care End Date 06/14/22 Therapeutic Interventions Therapeutic Interventions Aquatic Therapy,Balance Training,Gait Training,Home Exercise Program,Neuromuscular Re-education,Orthotic/ Prosthetic Management,Patient/ Caregiver Education,Self-Care/ Home Management,Taping, Therapeutic Activities, Therapeutic Exercises Modalities Cold Pack/Ice Massage,Hot Packs Next Visit Focus/Plan Next Note Type Treatment Note Next Visit Plan Continue closed chain activities without AFO as tolerated and progress gait with AFO for safety, improved functional speed, balance with least restrictive device. Floor transfers. Functional strengthening and flexibility exercises.
--- NOTE | 2022-03-25 11:22 | PT.OTN ---
Current Diagnoses Difficulty in walking, not elsewhere classified (03/25/22) Weakness (03/25/22) History of falling (03/25/22) Physical Therapy Treatment Note PT-OP-A Visit Information Start: 05/28/19 08:11 Freq: Status: Active Protocol: Document 03/25/22 08:55 AW (Rec: 03/25/22 11:22 AW [id number]) Out-Patient Physical Therapy Visit Information Visit Information Visit Type Treatment Note Visit Start Time 10:30 Visit Stop Time 11:15 Total Visit Minutes 45 Visit Number 171 Precautions Precautions Seizure disorder memory dysfunction PT-OP-B Current Condition Start: 05/28/19 08:11 Freq: Status: Active Protocol: Document 06/04/20 11:15 SAK (Rec: 06/05/20 16:34 SAK [id number]) Current Condition History of Current Condition Onset Date 2014 Current Complaints weakness, requires assistance with all mobility and household tasks History of Current Condition Reports that she suffered a stroke in 2014 after surgery for brain aneurysm. CVA caused weakness on the left side of her body, gait and balance difficulty, seizures. PT-OP-C Subjective Start: 05/28/19 08:11 Freq: Status: Active Protocol: Document 03/25/22 08:55 AW (Rec: 03/25/22 11:22 AW [id number]) OP-PT Subjective Patient Comments Patient Comments Adelaide is getting a prescription for a new AFO but no appointment yet. Feels sore and not wanting to work on mat activities today. PT-OP-D Balance Start: 05/28/19 08:11 Freq: Status: Active Protocol: Document 05/29/19 14:30 SAK (Rec: 05/30/19 14:24 SAK [id number]) OP-PT Balance Assessment Sitting Balance Static Sitting Balance Ability Good Dynamic Sitting Balance Ability Fair Standing Balance Static Standing Balance Ability Good Dynamic Standing Balance Ability Fair Device Used hemiwalker right Tinetti Balance Assessment Sitting Balance Sitting Balance Steady, safe Arising from Chair Attempts to Arise Able, requires >1 attempt Standing Balance Immediate Standing Balance Steady with support Standing Balance Steady, wide stance Nudged Response Begins to fall Standing with Eyes Closed Unsteady Turning Step Pattern Turning 360 Degrees Discontinuous steps Stability Turning 360 Degrees Unsteady, grabs/staggers Sitting Down Sitting Down Uses arms or unsteady Gait and Step Initiation of Gait Hesitancy, mult. attempts Right Foot Step Length Does not pass stance ft. Right Foot Step Height Does not clear floor Left Foot Step Length Does not pass stance foot Left Foot Step Height Does not clear floor Step Description Step Symmetry Step length not equal Gait Description Path Description Mild/moderate deviation Trunk Description Marked sway or uses aide Walking Stance Heels apart Scoring and Interpretation Tinetti Composite Score (points) 6 Interpretation of Scores High risk for falls(< 19) Herrera Fall Scale Copyright Permission PT-OP-E Functional Tests Start: 05/28/19 08:11 Freq: Status: Active Protocol: Document 05/14/21 10:50 [facility] (Rec: 05/14/21 11:08 [facility] [id number]) Functional Tests 6 Minute Walk Test Distance 169ft Device Used spc, TB wrapping Comments pt has headache today and feels that may have slowed her down. Timed Up and Go (TUG) Score 107 seconds PT-OP-G Mobility & Gait Start: 05/28/19 08:11 Freq: Status: Active Protocol: Document 05/26/20 11:15 SAK (Rec: 05/26/20 17:04 [facility] [id number]) OP Mobility Evaluation Bed Mobility Rolling min assist to right CGA to left Supine to and from Sit min assist to right CGA to left Transfers Sit to Stand CGA to min assist without UE use Bed to Chair Transfers requires use of right UE but able to do with SBA Floor Transfers unable PT-OP-H Neuro Start: 05/28/19 08:11 Freq: Status: Active Protocol: Document 05/29/19 14:30 SAK (Rec: 05/30/19 14:24 [facility] [id number]) Sensation Evaluation Gross Sensation Gross Sensation Left UE Impaired,Left LE Impaired Sensation Description Paresthesia,Numbness Coordination Evaluation Lower Extremity Tests Left Alternate Heel to Knee; Heel to Toe Test Moderate Impairment Heel on Boles Test Moderate Impairment Foot Tapping Test Moderate Impairment PT-OP-K Range of Motion Start: 05/28/19 08:11 Freq: Status: Active Protocol: Document 05/26/20 11:15 SAK (Rec: 05/26/20 17:04 [facility] [id number]) Hip Goniometric Range of Motion Hip jake Hip ROM WFL Yes Comments actively right LE, passively left LE Knee Goniometric Range of Motion Knee jake Knee ROM WFL Yes Ankle and Foot Goniometric Range of Motion Ankle and Foot Left Passive Ankle/Foot ROM WFL No Left Active Ankle/Foot ROM WFL No PT-OP-M Strength Start: 05/28/19 08:11 Freq: Status: Active Protocol: Document 05/26/20 11:15 SAK (Rec: 05/26/20 17:04 SAK [id number]) Hip Strength Hip Manual Muscle Testing Left Flexion (L2) 3- Fair- Extension (S1) 2 Poor Abduction 2+ Poor+ External Rotation 3- Fair- Internal Rotation 3+ Fair+ Right Flexion (L2) 4 Good Extension (S1) 4- Good- Abduction 4 Good External Rotation 3+ Fair+ Internal Rotation 4- Good- PT-OP-Q Treatments Start: 05/28/19 08:11 Freq: Status: Active Protocol: Document 03/25/22 08:55 AW (Rec: 03/25/22 11:22 AW [id number]) Cardio Equipment Recumbent Stepper (Sci-Fit) Duration (Minutes) 10 Resistance 1.8-2.0 Seat Position 11 Other no AFO; cues for left LE alignment, 1.1 mile Therapeutic Exercises Standing Exercises squats Equipment Used no AFO, // Reps/Minutes 15x Comments wt on LLE Gait Training Gait Activity curb simulation Description ascend/descend Device Used right rail Level of Assistance SBA/CGA Surface 6 step, blue foam, yoga mat over step/under step Distance/Duration 8x Treatment Focus increase stability curb mgt Comments cued quad facilitation L knee stance LE during RLE advancement to ascend, and decreased UE support Added rocker board to beginning of mat for increased challenge stairs Description 5 stairs Device Used R railing AFO, heel lift Level of Assistance CGA ascend, SBA descend Distance/Duration x14 (lobby stairs) Treatment Focus weight shift, decreased UE support Comments step-to pattern. 3 min up, 1.5 min down PT-OP-R Modalities Start: 05/28/19 08:11 Freq: Status: Active Protocol: Document 12/29/20 10:30 SP (Rec: 12/29/20 11:44 SP [id number]) Electric Stimulation Electric Stimulation Functional Electric Stimulation Body Location L hand/ forearm extensors Duration (Minutes) 2 Patient Position Sitting Comments NMES- education on placement of pad for muscular feedback extension based- check self placement understanding. PT-OP-T Assessment and Plan Start: 05/28/19 08:11 Freq: Status: Active Protocol: Document 03/25/22 08:55 AW (Rec: 03/25/22 11:22 AW [id number]) Physical Therapy Assessment Goals Five Impairment gait speed not adequate for safe community ambulation Mcc Goal (LTG) Patient able to ambulate 300' in 6 min. TUG score no greater than 30 sec 06/02/20: 134' 08/28/20: 144', likely not as high due to new shoes and wearing old AFO because fits better in new shoes. Requires level 4 theraband for derotation of left LE into more neutral position for gait . 09/19/20: 146 ft 6 min w/ QC and Tb wrapping to LLE. 11/13/20: 153 ft CG w/ SPC 2>3 pt gait w/out metronome w/ reported L glut/ lateral leg burn pain, 2 step brief stand breaks. 11/24/20: progressing 173.7 ft using SPC, predominently 2 pt gait. TUG score 59 sec using SP 01/27/21: TUG 55 sec. , 6 min walk test 199.9 ft with SPC 03/19/21: 6 min walk test 165' , TUG 1:20. Continue with use of theraband for derotation of excess ER left LE with gait . 04/16/21: 6MWT 190 ft w/ SPC and TB wrapping assist hip IR. 04/23/21: 6MWT 181 ftw/ SPC and TB wrapping 06/25/21: 6MWT 180 ft with SPC and TB wrapping. TU sec 09/16/21 - average gait speed 0 .14 m/s on 6MWT which pt completed with no AD (AFO only ). 12/23/21: most recent 6 min walk test 159 ft with no theraband derotation wrap and no assistive device LTG Duration 06/14/22 Four Impairment requires assistance with bed mobility and transfers Short Term Goal (STG) Patient will be able to perform all bed mobility independently to improve her functional independence. 10/31/19: good goal progress 06/02/20:inconsistent, but min assist most times 11/24/20: Met goal: pt is independent in supine>sit. STG Duration goal met Bacteriologist Dairy Goal (LTG) Patient will be able to perform a floor transfer with SB to min assist. 5x sit to stand score in no more than 15 sec as measure of functional strength for transfers 10/31/19: max assist today 01/02/20: has not been willing to try since 10/31/19 06/02/21: does not feel strong enough to try yet. 06/25/21: 08/28/20: max assistance required 12/02/20: remains at max assist , not recently willing to attempt floor transfer. 5x sit to stand score 26 seconds 01/27/21: not tried recently. 03/24/21: 5x sit to stand 25 sec. No floor transfer today 06/25/21: 5x sit to stand 24 sec. Patient didn't feel up to doing floor transfer, remains a concern 09/16/21: Pt willing to work on floor transfers but demonstrates a great deal of fear avoidance. 12/23/21: 5 Time Sit to Stand today in 30.4 seconds from standard height chair with no use of RUE LTG Duration 06/14/22 Three Impairment weakness left UE and LE s/p CVA Bacteriologist Dairy Goal (LTG) Improve functional strength in left LE, as evidenced by ability to move from sit > < stand without use of UE's. 10/31/19: OT starts tomorrow. Good progress with sit to stand, though mostly using right UE and LE 01/02/20: Improving ability to perform, able to increase weight-bearing through left LE with cues, but still some use of right UE 05/26/20: With manual and visual feedback patient able to transfer sit to stand with only CG A. 08/28/20: inconsistent ability to move sit to stand without using UE's, but able to do transfer without physical assistance 11/24/20: Goal Met 01/27/21: more difficulty recently, having to use hands. Goal reactivated. 03/24/21: difficulty motor planning and performing sit to stand today. 06/25/21: patient becomes frustrated with sit to stand transfers as she expresses she feels she has a hard time remembering how to do it, has to use right UE 09/16/21 Pt completes sit to stand x 5 today without use of RUE from std height chair. LTG Duration goal met Two Impairment balance dysfunction with high risk for falls Mcc Goal (LTG) Improve balance as evidenced by improvement in Tinnetti balance and gait score to low fall risk range to improve safety in the home and community. 10/31/19: remains high risk for falls 01/02/20: some improvement but still in high risk category 05/26/20: Tinetti score in high risk category 08/28/20: moderate risk for falls 12/02/20: remains in moderate risk for falls. 01/27/21: moderate risk for falls 03/24/21: no significant change noted today but again having poor day. 06/25/21: Moderate risk for falls, though no reported falls over past few months. 09/16/21 No change 12/23/21: improved by 3 points 03/16/22: no further change this treatment period LTG Duration 06/14/22 One Impairment requires armaan-walker for gait, limited to household gait Bacteriologist Dairy Goal (LTG) Patient able to ambulate with least restrictive device for functional community distances to improve her functional independence and quality of life. 10/30/19: no progress due to Covid 19. 11/02/19: able to ambulate with quad cane but with very slow speed, household distances, very short community distances . 05/26/20: Now able to ambulate with use of single point cane and use of L4 theraband wrapped around left LE to facilitate left LE internal rotation for improved alignment. Patient unable to don the theraband on her own. Gait is for short distances and very slow at 39 ft in 2 min. 08/28/20: has demonstrated improved gait ability, still using theraband for derotation of LE for more neutral position. Able to consistenly use quad cane and is increasing stride length especially with cues. Now able to ascend and descend 4 stairs with min assist using railing. Mod assist on 6 stairs. 12/02/20: Patient ambulating with SPC, mostly household but some community distances, improved gait alignment with use of theraband for improved alignment. Patient not consistently able to ambulate community distances due to pain in her left LE, and lack of neurological control left LE. Patient may benefit from modification to her current AFO or fabrication of new AFO. 173 ft in 6 minutes 01/27/21: using SPC. Limitations due to left foot, knee and hip pain, right wrist pain 6 min walk test improved to 199.9 feet today 03/24/21: slower 6 min walk test today as above. Has had modification to her AFO with some improvement in her function, but had poor day today. 06/25/21: 180' on 6 min walk test, patient reports left knee feeling wonky, and right UE still painful due to surgery' having stitches out today. Also c/o lack of caregiver recently has limited her walking, no outings. Will try again next session. 09/16/21: Pt completes 6MWT without cane today/ Average gait speed 0.14 12/23/21: Adelaide is now able to ambulate indoors with no assistive device. Outdoors on level surfaces with no device with CGA, uneven surfaces requires cane and CG to mod assist. Continues to improve. 03/16/22: No improvement in speed, though patient continues to be able to ambulate without device most of the time in PT though doesn 't do at home due to fear. Improved confidence on compliant surface in clinic with ability to do without device. LTG Duration 06/14/22 Assessment Summary Assessment Adelaide is easily distracted and needs cues to stay on task . She did do well with added challenge in gait on uneven surface during curb simulation . Physical Therapy Plan Frequency and Duration Frequency of Treatment 2x/Week Duration of treatment (weeks) 12 Plan of Care Start Date 03/16/22 Plan of Care End Date 06/14/22 Therapeutic Interventions Therapeutic Interventions Aquatic Therapy,Balance Training,Gait Training,Home Exercise Program,Neuromuscular Re-education,Orthotic/ Prosthetic Management,Patient/ Caregiver Education,Self-Care/ Home Management,Taping, Therapeutic Activities, Therapeutic Exercises Modalities Cold Pack/Ice Massage,Hot Packs Next Visit Focus/Plan Next Note Type Treatment Note Next Visit Plan Continue closed chain activities without AFO as tolerated and progress gait with AFO for safety, improved functional speed, balance with least restrictive device. Floor transfers. Functional strengthening and flexibility exercises.
--- NOTE | 2022-03-30 12:05 | PT.OTN ---
Current Diagnoses Difficulty in walking, not elsewhere classified (03/30/22) Weakness (03/30/22) History of falling (03/30/22) Physical Therapy Treatment Note PT-OP-A Visit Information Start: 05/28/19 08:11 Freq: Status: Active Protocol: Document 03/30/22 10:34 SAK (Rec: 03/30/22 11:20 SAK [id number]) Out-Patient Physical Therapy Visit Information Visit Information Visit Type Treatment Note Visit Start Time 10:30 Visit Stop Time 11:15 Total Visit Minutes 45 Visit Number 172 Precautions Precautions Seizure disorder memory dysfunction PT-OP-B Current Condition Start: 05/28/19 08:11 Freq: Status: Active Protocol: Document 06/04/20 11:15 SAK (Rec: 06/05/20 16:34 SAK [id number]) Current Condition History of Current Condition Onset Date 2014 Current Complaints weakness, requires assistance with all mobility and household tasks History of Current Condition Reports that she suffered a stroke in 2014 after surgery for brain aneurysm. CVA caused weakness on the left side of her body, gait and balance difficulty, seizures. PT-OP-C Subjective Start: 05/28/19 08:11 Freq: Status: Active Protocol: Document 03/30/22 10:34 SAK (Rec: 03/30/22 11:20 SAK [id number]) OP-PT Subjective Patient Comments Patient Comments left side feels like it's on fire, out of medication PT-OP-D Balance Start: 05/28/19 08:11 Freq: Status: Active Protocol: Document 05/29/19 14:30 SAK (Rec: 05/30/19 14:24 SAK [id number]) OP-PT Balance Assessment Sitting Balance Static Sitting Balance Ability Good Dynamic Sitting Balance Ability Fair Standing Balance Static Standing Balance Ability Good Dynamic Standing Balance Ability Fair Device Used hemiwalker right Tinetti Balance Assessment Sitting Balance Sitting Balance Steady, safe Arising from Chair Attempts to Arise Able, requires >1 attempt Standing Balance Immediate Standing Balance Steady with support Standing Balance Steady, wide stance Nudged Response Begins to fall Standing with Eyes Closed Unsteady Turning Step Pattern Turning 360 Degrees Discontinuous steps Stability Turning 360 Degrees Unsteady, grabs/staggers Sitting Down Sitting Down Uses arms or unsteady Gait and Step Initiation of Gait Hesitancy, mult. attempts Right Foot Step Length Does not pass stance ft. Right Foot Step Height Does not clear floor Left Foot Step Length Does not pass stance foot Left Foot Step Height Does not clear floor Step Description Step Symmetry Step length not equal Gait Description Path Description Mild/moderate deviation Trunk Description Marked sway or uses aide Walking Stance Heels apart Scoring and Interpretation Tinetti Composite Score (points) 6 Interpretation of Scores High risk for falls(< 19) Herrera Fall Scale Copyright Permission PT-OP-E Functional Tests Start: 05/28/19 08:11 Freq: Status: Active Protocol: Document 05/14/21 10:50 [facility] (Rec: 05/14/21 11:08 AMH [id number]) Functional Tests 6 Minute Walk Test Distance 169ft Device Used spc, TB wrapping Comments pt has headache today and feels that may have slowed her down. Timed Up and Go (TUG) Score 107 seconds PT-OP-G Mobility & Gait Start: 05/28/19 08:11 Freq: Status: Active Protocol: Document 05/26/20 11:15 SAK (Rec: 05/26/20 17:04 SAK [id number]) OP Mobility Evaluation Bed Mobility Rolling min assist to right CGA to left Supine to and from Sit min assist to right CGA to left Transfers Sit to Stand CGA to min assist without UE use Bed to Chair Transfers requires use of right UE but able to do with SBA Floor Transfers unable PT-OP-H Neuro Start: 05/28/19 08:11 Freq: Status: Active Protocol: Document 05/29/19 14:30 SAK (Rec: 05/30/19 14:24 SAK [id number]) Sensation Evaluation Gross Sensation Gross Sensation Left UE Impaired,Left LE Impaired Sensation Description Paresthesia,Numbness Coordination Evaluation Lower Extremity Tests Left Alternate Heel to Knee; Heel to Toe Test Moderate Impairment Heel on Boles Test Moderate Impairment Foot Tapping Test Moderate Impairment PT-OP-K Range of Motion Start: 05/28/19 08:11 Freq: Status: Active Protocol: Document 05/26/20 11:15 SAK (Rec: 05/26/20 17:04 SAK [id number]) Hip Goniometric Range of Motion Hip jake Hip ROM WFL Yes Comments actively right LE, passively left LE Knee Goniometric Range of Motion Knee jake Knee ROM WFL Yes Ankle and Foot Goniometric Range of Motion Ankle and Foot Left Passive Ankle/Foot ROM WFL No Left Active Ankle/Foot ROM WFL No PT-OP-M Strength Start: 05/28/19 08:11 Freq: Status: Active Protocol: Document 05/26/20 11:15 SAK (Rec: 05/26/20 17:04 [facility] [id number]) Hip Strength Hip Manual Muscle Testing Left Flexion (L2) 3- Fair- Extension (S1) 2 Poor Abduction 2+ Poor+ External Rotation 3- Fair- Internal Rotation 3+ Fair+ Right Flexion (L2) 4 Good Extension (S1) 4- Good- Abduction 4 Good External Rotation 3+ Fair+ Internal Rotation 4- Good- PT-OP-Q Treatments Start: 05/28/19 08:11 Freq: Status: Active Protocol: Document 03/30/22 10:34 SAK (Rec: 03/30/22 11:20 [facility] [id number]) Cardio Equipment Recumbent Stepper (Sci-Fit) Duration (Minutes) 10 Resistance 1.8-2.0 Seat Position 11 Other no AFO; cues for left LE alignment, 1.16 mile Therapeutic Exercises Sitting Exercises HC stretch Side left Resistance AAROM Equipment Used manual Reps/Minutes 30 x 2 Standing Exercises squats Equipment Used no AFO, // Reps/Minutes 15x Comments wt on LLE minisquats Standing Exercise Name squats Equipment Used // Reps/Minutes 2x10 Comments window for visual feedback sit to stands Standing Exercise Name sit to stand Equipment Used mesh chair Reps/Minutes 5x Comments cues for leftward weight shift Gait Training Gait Activity backward Device Used none, no AFO Level of Assistance CGA Surface firm, parallel bars Distance/Duration 5' x 2 Treatment Focus decreased support, gluteal activation Comments mirror for visual feedback. parallel bars Description forward Device Used //bar mostly no UE support, occasional light touch support Level of Assistance no AFO Surface firm Distance/Duration 3x each direction Treatment Focus neutral alignment, weight- shift over LLE required verbal sequencing pre-gait weight shifts Description side to side with and without AFO Device Used none Level of Assistance CG, verbal cues Surface firm Distance/Duration rail on R Treatment Focus increased weight bearing left LE (cued >50-75%) Comments mirror for visual feedback 1 Description level surface Device Used AFO Level of Assistance CGA, cues Surface indoor carpet, tile, firm Distance/Duration 60 ft x 2, 40' x 1 PT-OP-R Modalities Start: 05/28/19 08:11 Freq: Status: Active Protocol: Document 12/29/20 10:30 SP (Rec: 12/29/20 11:44 SP [id number]) Electric Stimulation Electric Stimulation Functional Electric Stimulation Body Location L hand/ forearm extensors Duration (Minutes) 2 Patient Position Sitting Comments NMES- education on placement of pad for muscular feedback extension based- check self placement understanding. PT-OP-T Assessment and Plan Start: 05/28/19 08:11 Freq: Status: Active Protocol: Document 03/30/22 10:34 SAK (Rec: 03/30/22 11:20 SAK [id number]) Physical Therapy Assessment Goals Five Impairment gait speed not adequate for safe community ambulation Space Buyer Goal (LTG) Patient able to ambulate 300' in 6 min. TUG score no greater than 30 sec 06/02/20: 134' 08/28/20: 144', likely not as high due to new shoes and wearing old AFO because fits better in new shoes. Requires level 4 theraband for derotation of left LE into more neutral position for gait . 09/19/20: 146 ft 6 min w/ QC and Tb wrapping to LLE. 11/13/20: 153 ft CG w/ SPC 2>3 pt gait w/out metronome w/ reported L glut/ lateral leg burn pain, 2 step brief stand breaks. 11/24/20: progressing 173.7 ft using SPC, predominently 2 pt gait. TUG score 59 sec using SP 01/27/21: TUG 55 sec. , 6 min walk test 199.9 ft with SPC 03/19/21: 6 min walk test 165' , TUG 1:20. Continue with use of theraband for derotation of excess ER left LE with gait . 04/16/21: 6MWT 190 ft w/ SPC and TB wrapping assist hip IR. 04/23/21: 6MWT 181 ftw/ SPC and TB wrapping 06/25/21: 6MWT 180 ft with SPC and TB wrapping. TU sec 09/16/21 - average gait speed 0 .14 m/s on 6MWT which pt completed with no AD (AFO only ). 12/23/21: most recent 6 min walk test 159 ft with no theraband derotation wrap and no assistive device LTG Duration 06/14/22 Four Impairment requires assistance with bed mobility and transfers Short Term Goal (STG) Patient will be able to perform all bed mobility independently to improve her functional independence. 10/31/19: good goal progress 06/02/20:inconsistent, but min assist most times 11/24/20: Met goal: pt is independent in supine>sit. STG Duration goal met Space Buyer Goal (LTG) Patient will be able to perform a floor transfer with SB to min assist. 5x sit to stand score in no more than 15 sec as measure of functional strength for transfers 10/31/19: max assist today 01/02/20: has not been willing to try since 10/31/19 06/02/21: does not feel strong enough to try yet. 06/25/21: 08/28/20: max assistance required 12/02/20: remains at max assist , not recently willing to attempt floor transfer. 5x sit to stand score 26 seconds 01/27/21: not tried recently. 03/24/21: 5x sit to stand 25 sec. No floor transfer today 06/25/21: 5x sit to stand 24 sec. Patient didn't feel up to doing floor transfer, remains a concern 09/16/21: Pt willing to work on floor transfers but demonstrates a great deal of fear avoidance. 12/23/21: 5 Time Sit to Stand today in 30.4 seconds from standard height chair with no use of RUE LTG Duration 06/14/22 Three Impairment weakness left UE and LE s/p CVA Space Buyer Goal (LTG) Improve functional strength in left LE, as evidenced by ability to move from sit > < stand without use of UE's. 10/31/19: OT starts tomorrow. Good progress with sit to stand, though mostly using right UE and LE 01/02/20: Improving ability to perform, able to increase weight-bearing through left LE with cues, but still some use of right UE 05/26/20: With manual and visual feedback patient able to transfer sit to stand with only CG A. 08/28/20: inconsistent ability to move sit to stand without using UE's, but able to do transfer without physical assistance 11/24/20: Goal Met 01/27/21: more difficulty recently, having to use hands. Goal reactivated. 03/24/21: difficulty motor planning and performing sit to stand today. 06/25/21: patient becomes frustrated with sit to stand transfers as she expresses she feels she has a hard time remembering how to do it, has to use right UE 09/16/21 Pt completes sit to stand x 5 today without use of RUE from std height chair. LTG Duration goal met Two Impairment balance dysfunction with high risk for falls Long-Term Goal (LTG) Improve balance as evidenced by improvement in Tinnetti balance and gait score to low fall risk range to improve safety in the home and community. 10/31/19: remains high risk for falls 01/02/20: some improvement but still in high risk category 05/26/20: Tinetti score in high risk category 08/28/20: moderate risk for falls 12/02/20: remains in moderate risk for falls. 01/27/21: moderate risk for falls 03/24/21: no significant change noted today but again having poor day. 06/25/21: Moderate risk for falls, though no reported falls over past few months. 09/16/21 No change 12/23/21: improved by 3 points 03/16/22: no further change this treatment period LTG Duration 06/14/22 One Impairment requires armaan-walker for gait, limited to household gait Long-Term Goal (LTG) Patient able to ambulate with least restrictive device for functional community distances to improve her functional independence and quality of life. 10/30/19: no progress due to Covid 19. 11/02/19: able to ambulate with quad cane but with very slow speed, household distances, very short community distances . 05/26/20: Now able to ambulate with use of single point cane and use of L4 theraband wrapped around left LE to facilitate left LE internal rotation for improved alignment. Patient unable to don the theraband on her own. Gait is for short distances and very slow at 39 ft in 2 min. 08/28/20: has demonstrated improved gait ability, still using theraband for derotation of LE for more neutral position. Able to consistenly use quad cane and is increasing stride length especially with cues. Now able to ascend and descend 4 stairs with min assist using railing. Mod assist on 6 stairs. 12/02/20: Patient ambulating with SPC, mostly household but some community distances, improved gait alignment with use of theraband for improved alignment. Patient not consistently able to ambulate community distances due to pain in her left LE, and lack of neurological control left LE. Patient may benefit from modification to her current AFO or fabrication of new AFO. 173 ft in 6 minutes 01/27/21: using SPC. Limitations due to left foot, knee and hip pain, right wrist pain 6 min walk test improved to 199.9 feet today 03/24/21: slower 6 min walk test today as above. Has had modification to her AFO with some improvement in her function, but had poor day today. 06/25/21: 180' on 6 min walk test, patient reports left knee feeling wonky, and right UE still painful due to surgery' having stitches out today. Also c/o lack of caregiver recently has limited her walking, no outings. Will try again next session. 09/16/21: Pt completes 6MWT without cane today/ Average gait speed 0.14 12/23/21: [place] is now able to ambulate indoors with no assistive device. Outdoors on level surfaces with no device with CGA, uneven surfaces requires cane and CG to mod assist. Continues to improve. 03/16/22: No improvement in speed, though patient continues to be able to ambulate without device most of the time in PT though doesn 't do at home due to fear. Improved confidence on compliant surface in clinic with ability to do without device. LTG Duration 06/14/22 Physical Therapy Plan Frequency and Duration Frequency of Treatment 2x/Week Duration of treatment (weeks) 12 Plan of Care Start Date 03/16/22 Plan of Care End Date 06/14/22 Therapeutic Interventions Therapeutic Interventions Aquatic Therapy,Balance Training,Gait Training,Home Exercise Program,Neuromuscular Re-education,Orthotic/ Prosthetic Management,Patient/ Caregiver Education,Self-Care/ Home Management,Taping, Therapeutic Activities, Therapeutic Exercises Modalities Cold Pack/Ice Massage,Hot Packs Next Visit Focus/Plan Next Note Type Treatment Note Next Visit Plan Continue closed chain activities without AFO as tolerated and progress gait with AFO for safety, improved functional speed, balance with least restrictive device. Floor transfers. Functional strengthening and flexibility exercises.
--- NOTE | 2022-04-06 12:16 | PT.OTN ---
Current Diagnoses Difficulty in walking, not elsewhere classified (04/06/22) Weakness (04/06/22) History of falling (04/06/22) Physical Therapy Treatment Note PT-OP-A Visit Information Start: 05/28/19 08:11 Freq: Status: Active Protocol: Document 04/06/22 08:55 AW (Rec: 04/06/22 11:19 AW [id number]) Out-Patient Physical Therapy Visit Information Visit Information Visit Type Treatment Note Visit Start Time 10:30 Visit Stop Time 11:15 Total Visit Minutes 45 Visit Number 173 Precautions Precautions Seizure disorder memory dysfunction PT-OP-B Current Condition Start: 05/28/19 08:11 Freq: Status: Active Protocol: Document 06/04/20 11:15 SAK (Rec: 06/05/20 16:34 SAK [id number]) Current Condition History of Current Condition Onset Date 2014 Current Complaints weakness, requires assistance with all mobility and household tasks History of Current Condition Reports that she suffered a stroke in 2014 after surgery for brain aneurysm. CVA caused weakness on the left side of her body, gait and balance difficulty, seizures. PT-OP-C Subjective Start: 05/28/19 08:11 Freq: Status: Active Protocol: Document 04/06/22 08:55 AW (Rec: 04/06/22 11:19 AW [id number]) OP-PT Subjective Patient Comments Patient Comments New caregiver starts tomorrow PT-OP-D Balance Start: 05/28/19 08:11 Freq: Status: Active Protocol: Document 05/29/19 14:30 SAK (Rec: 05/30/19 14:24 SAK [id number]) OP-PT Balance Assessment Sitting Balance Static Sitting Balance Ability Good Dynamic Sitting Balance Ability Fair Standing Balance Static Standing Balance Ability Good Dynamic Standing Balance Ability Fair Device Used the medical center right Tinetti Balance Assessment Sitting Balance Sitting Balance Steady, safe Arising from Chair Attempts to Arise Able, requires >1 attempt Standing Balance Immediate Standing Balance Steady with support Standing Balance Steady, wide stance Nudged Response Begins to fall Standing with Eyes Closed Unsteady Turning Step Pattern Turning 360 Degrees Discontinuous steps Stability Turning 360 Degrees Unsteady, grabs/staggers Sitting Down Sitting Down Uses arms or unsteady Gait and Step Initiation of Gait Hesitancy, mult. attempts Right Foot Step Length Does not pass stance ft. Right Foot Step Height Does not clear floor Left Foot Step Length Does not pass stance foot Left Foot Step Height Does not clear floor Step Description Step Symmetry Step length not equal Gait Description Path Description Mild/moderate deviation Trunk Description Marked sway or uses aide Walking Stance Heels apart Scoring and Interpretation Tinetti Composite Score (points) 6 Interpretation of Scores High risk for falls(< 19) Herrera Fall Scale Copyright Permission PT-OP-E Functional Tests Start: 05/28/19 08:11 Freq: Status: Active Protocol: Document 05/14/21 10:50 AMH (Rec: 05/14/21 11:08 AMH [id number]) Functional Tests 6 Minute Walk Test Distance 169ft Device Used spc, TB wrapping Comments pt has headache today and feels that may have slowed her down. Timed Up and Go (TUG) Score 107 seconds PT-OP-G Mobility & Gait Start: 05/28/19 08:11 Freq: Status: Active Protocol: Document 05/26/20 11:15 SAK (Rec: 05/26/20 17:04 SAK [id number]) OP Mobility Evaluation Bed Mobility Rolling min assist to right CGA to left Supine to and from Sit min assist to right CGA to left Transfers Sit to Stand CGA to min assist without UE use Bed to Chair Transfers requires use of right UE but able to do with SBA Floor Transfers unable PT-OP-H Neuro Start: 05/28/19 08:11 Freq: Status: Active Protocol: Document 05/29/19 14:30 SAK (Rec: 05/30/19 14:24 SAK [id number]) Sensation Evaluation Gross Sensation Gross Sensation Left UE Impaired,Left LE Impaired Sensation Description Paresthesia,Numbness Coordination Evaluation Lower Extremity Tests Left Alternate Heel to Knee; Heel to Toe Test Moderate Impairment Heel on Boles Test Moderate Impairment Foot Tapping Test Moderate Impairment PT-OP-K Range of Motion Start: 05/28/19 08:11 Freq: Status: Active Protocol: Document 05/26/20 11:15 SAK (Rec: 05/26/20 17:04 SAK [id number]) Hip Goniometric Range of Motion Hip jake Hip ROM WFL Yes Comments actively right LE, passively left LE Knee Goniometric Range of Motion Knee jake Knee ROM WFL Yes Ankle and Foot Goniometric Range of Motion Ankle and Foot Left Passive Ankle/Foot ROM WFL No Left Active Ankle/Foot ROM WFL No PT-OP-M Strength Start: 05/28/19 08:11 Freq: Status: Active Protocol: Document 05/26/20 11:15 SAK (Rec: 05/26/20 17:04 SAK [id number]) Hip Strength Hip Manual Muscle Testing Left Flexion (L2) 3- Fair- Extension (S1) 2 Poor Abduction 2+ Poor+ External Rotation 3- Fair- Internal Rotation 3+ Fair+ Right Flexion (L2) 4 Good Extension (S1) 4- Good- Abduction 4 Good External Rotation 3+ Fair+ Internal Rotation 4- Good- PT-OP-Q Treatments Start: 05/28/19 08:11 Freq: Status: Active Protocol: Document 04/06/22 08:55 AW (Rec: 04/06/22 11:19 AW [id number]) Cardio Equipment Recumbent Stepper (Sci-Fit) Duration (Minutes) 10 Resistance 1.8-2.0 Seat Position 11 Other no AFO; cues for left LE alignment, 1.16 mile Therapeutic Exercises Standing Exercises minisquats Standing Exercise Name squats Equipment Used // Reps/Minutes 2x10 Comments window for visual feedback sit to stands Standing Exercise Name sit to stand Equipment Used transport chair stab against wall Reps/Minutes 5x Comments cues for leftward weight shift Gait Training Gait Activity step up/down blue foam Device Used none, cane Level of Assistance CGA without AD Distance/Duration 4x Treatment Focus stability, balance, increased weight-bearing through left LE Comments - onto red yoga mat, layered over blue tumbling mat 1 Description level surface Device Used AFO Level of Assistance CGA, cues Surface indoor carpet, tile, firm Distance/Duration 100' x 2 Comments short seated rest break at 100 ' PT-OP-R Modalities Start: 05/28/19 08:11 Freq: Status: Active Protocol: Document 12/29/20 10:30 SP (Rec: 12/29/20 11:44 SP [id number]) Electric Stimulation Electric Stimulation Functional Electric Stimulation Body Location L hand/ forearm extensors Duration (Minutes) 2 Patient Position Sitting Comments NMES- education on placement of pad for muscular feedback extension based- check self placement understanding. PT-OP-T Assessment and Plan Start: 05/28/19 08:11 Freq: Status: Active Protocol: Document 04/06/22 08:55 AW (Rec: 04/06/22 11:19 AW [id number]) Physical Therapy Assessment Goals Five Impairment gait speed not adequate for safe community ambulation [facility] Goal (LTG) Patient able to ambulate 300' in 6 min. TUG score no greater than 30 sec 06/02/20: 134' 08/28/20: 144', likely not as high due to new shoes and wearing old AFO because fits better in new shoes. Requires level 4 theraband for derotation of left LE into more neutral position for gait . 09/19/20: 146 ft 6 min w/ QC and Tb wrapping to LLE. 11/13/20: 153 ft CG w/ SPC 2>3 pt gait w/out metronome w/ reported L glut/ lateral leg burn pain, 2 step brief stand breaks. 11/24/20: progressing 173.7 ft using SPC, predominently 2 pt gait. TUG score 59 sec using SP 01/27/21: TUG 55 sec. , 6 min walk test 199.9 ft with SPC 03/19/21: 6 min walk test 165' , TUG 1:20. Continue with use of theraband for derotation of excess ER left LE with gait . 04/16/21: 6MWT 190 ft w/ SPC and TB wrapping assist hip IR. 04/23/21: 6MWT 181 ftw/ SPC and TB wrapping 06/25/21: 6MWT 180 ft with SPC and TB wrapping. TU sec 09/16/21 - average gait speed 0 .14 m/s on 6MWT which pt completed with no AD (AFO only ). 12/23/21: most recent 6 min walk test 159 ft with no theraband derotation wrap and no assistive device LTG Duration 06/14/22 Four Impairment requires assistance with bed mobility and transfers Short Term Goal (STG) Patient will be able to perform all bed mobility independently to improve her functional independence. 10/31/19: good goal progress 06/02/20:inconsistent, but min assist most times 11/24/20: Met goal: pt is independent in supine>sit. STG Duration goal met [facility] Goal (LTG) Patient will be able to perform a floor transfer with SB to min assist. 5x sit to stand score in no more than 15 sec as measure of functional strength for transfers 10/31/19: max assist today 01/02/20: has not been willing to try since 10/31/19 06/02/21: does not feel strong enough to try yet. 06/25/21: 08/28/20: max assistance required 12/02/20: remains at max assist , not recently willing to attempt floor transfer. 5x sit to stand score 26 seconds 01/27/21: not tried recently. 03/24/21: 5x sit to stand 25 sec. No floor transfer today 06/25/21: 5x sit to stand 24 sec. Patient didn't feel up to doing floor transfer, remains a concern 09/16/21: Pt willing to work on floor transfers but demonstrates a great deal of fear avoidance. 12/23/21: 5 Time Sit to Stand today in 30.4 seconds from standard height chair with no use of RUE LTG Duration 06/14/22 Three Impairment weakness left UE and LE s/p CVA [employer] Goal (LTG) Improve functional strength in left LE, as evidenced by ability to move from sit > < stand without use of UE's. 10/31/19: OT starts tomorrow. Good progress with sit to stand, though mostly using right UE and LE 01/02/20: Improving ability to perform, able to increase weight-bearing through left LE with cues, but still some use of right UE 05/26/20: With manual and visual feedback patient able to transfer sit to stand with only CG A. 08/28/20: inconsistent ability to move sit to stand without using UE's, but able to do transfer without physical assistance 11/24/20: Goal Met 01/27/21: more difficulty recently, having to use hands. Goal reactivated. 03/24/21: difficulty motor planning and performing sit to stand today. 06/25/21: patient becomes frustrated with sit to stand transfers as she expresses she feels she has a hard time remembering how to do it, has to use right UE 09/16/21 Pt completes sit to stand x 5 today without use of RUE from std height chair. LTG Duration goal met Two Impairment balance dysfunction with high risk for falls [facility] Goal (LTG) Improve balance as evidenced by improvement in Tinnetti balance and gait score to low fall risk range to improve safety in the home and community. 10/31/19: remains high risk for falls 01/02/20: some improvement but still in high risk category 05/26/20: Tinetti score in high risk category 08/28/20: moderate risk for falls 12/02/20: remains in moderate risk for falls. 01/27/21: moderate risk for falls 03/24/21: no significant change noted today but again having poor day. 06/25/21: Moderate risk for falls, though no reported falls over past few months. 09/16/21 No change 12/23/21: improved by 3 points 03/16/22: no further change this treatment period LTG Duration 06/14/22 One Impairment requires armaan-walker for gait, limited to household gait [facility] Goal (LTG) Patient able to ambulate with least restrictive device for functional community distances to improve her functional independence and quality of life. 10/30/19: no progress due to Covid 19. 11/02/19: able to ambulate with quad cane but with very slow speed, household distances, very short community distances . 05/26/20: Now able to ambulate with use of single point cane and use of L4 theraband wrapped around left LE to facilitate left LE internal rotation for improved alignment. Patient unable to don the theraband on her own. Gait is for short distances and very slow at 39 ft in 2 min. 08/28/20: has demonstrated improved gait ability, still using theraband for derotation of LE for more neutral position. Able to consistenly use quad cane and is increasing stride length especially with cues. Now able to ascend and descend 4 stairs with min assist using railing. Mod assist on 6 stairs. 12/02/20: Patient ambulating with SPC, mostly household but some community distances, improved gait alignment with use of theraband for improved alignment. Patient not consistently able to ambulate community distances due to pain in her left LE, and lack of neurological control left LE. Patient may benefit from modification to her current AFO or fabrication of new AFO. 173 ft in 6 minutes 01/27/21: using SPC. Limitations due to left foot, knee and hip pain, right wrist pain 6 min walk test improved to 199.9 feet today 03/24/21: slower 6 min walk test today as above. Has had modification to her AFO with some improvement in her function, but had poor day today. 06/25/21: 180' on 6 min walk test, patient reports left knee feeling wonky, and right UE still painful due to surgery' having stitches out today. Also c/o lack of caregiver recently has limited her walking, no outings. Will try again next session. 09/16/21: Pt completes 6MWT without cane today/ Average gait speed 0.14 12/23/21: Adelaide is now able to ambulate indoors with no assistive device. Outdoors on level surfaces with no device with CGA, uneven surfaces requires cane and CG to mod assist. Continues to improve. 03/16/22: No improvement in speed, though patient continues to be able to ambulate without device most of the time in PT though doesn 't do at home due to fear. Improved confidence on compliant surface in clinic with ability to do without device. LTG Duration 06/14/22 Assessment Summary Assessment Continued to work on gait level surface and uneven surface without AD. Adelaide is affected by lack of caregiver support and has not been able to get out into the community. Physical Therapy Plan Frequency and Duration Frequency of Treatment 2x/Week Duration of treatment (weeks) 12 Plan of Care Start Date 03/16/22 Plan of Care End Date 06/14/22 Therapeutic Interventions Therapeutic Interventions Aquatic Therapy,Balance Training,Gait Training,Home Exercise Program,Neuromuscular Re-education,Orthotic/ Prosthetic Management,Patient/ Caregiver Education,Self-Care/ Home Management,Taping, Therapeutic Activities, Therapeutic Exercises Modalities Cold Pack/Ice Massage,Hot Packs Next Visit Focus/Plan Next Note Type Treatment Note Next Visit Plan Continue closed chain activities without AFO as tolerated and progress gait with AFO for safety, improved functional speed, balance with least restrictive device. Floor transfers. Functional strengthening and flexibility exercises.
--- NOTE | 2022-04-08 16:45 | PT.OTN ---
Current Diagnoses Difficulty in walking, not elsewhere classified (04/08/22) Weakness (04/08/22) History of falling (04/08/22) Physical Therapy Treatment Note PT-OP-A Visit Information Start: 05/28/19 08:11 Freq: Status: Active Protocol: Document 04/08/22 10:35 SAK (Rec: 04/08/22 11:23 [facility] [id number]) Out-Patient Physical Therapy Visit Information Visit Information Visit Type Treatment Note Visit Start Time 10:30 Visit Stop Time 11:15 Total Visit Minutes 45 Visit Number [id number] Precautions Precautions Seizure disorder memory dysfunction PT-OP-B Current Condition Start: 05/28/19 08:11 Freq: Status: Active Protocol: Document 06/04/20 11:15 SAK (Rec: 06/05/20 16:34 [facility] [id number]) Current Condition History of Current Condition Onset Date 2014 Current Complaints weakness, requires assistance with all mobility and household tasks History of Current Condition Reports that she suffered a stroke in 2014 after surgery for brain aneurysm. CVA caused weakness on the left side of her body, gait and balance difficulty, seizures. PT-OP-C Subjective Start: 05/28/19 08:11 Freq: Status: Active Protocol: Document 04/08/22 10:35 SAK (Rec: 04/08/22 11:23 [facility] [id number]) OP-PT Subjective Patient Comments Patient Comments No new c/o. wants to walk first today. States she and her mom are now not going to look at moving until the spring. States her new caregiver doesn't have any experience; did well at cleaning but will need training with self-care and mobility assistance. She called in sick today. PT-OP-D Balance Start: 05/28/19 08:11 Freq: Status: Active Protocol: Document 05/29/19 14:30 SAK (Rec: 05/30/19 14:24 [facility] [id number]) OP-PT Balance Assessment Sitting Balance Static Sitting Balance Ability Good Dynamic Sitting Balance Ability Fair Standing Balance Static Standing Balance Ability Good Dynamic Standing Balance Ability Fair Device Used [facility] right Tinetti Balance Assessment Sitting Balance Sitting Balance Steady, safe Arising from Chair Attempts to Arise Able, requires >1 attempt Standing Balance Immediate Standing Balance Steady with support Standing Balance Steady, wide stance Nudged Response Begins to fall Standing with Eyes Closed Unsteady Turning Step Pattern Turning 360 Degrees Discontinuous steps Stability Turning 360 Degrees Unsteady, grabs/staggers Sitting Down Sitting Down Uses arms or unsteady Gait and Step Initiation of Gait Hesitancy, mult. attempts Right Foot Step Length Does not pass stance ft. Right Foot Step Height Does not clear floor Left Foot Step Length Does not pass stance foot Left Foot Step Height Does not clear floor Step Description Step Symmetry Step length not equal Gait Description Path Description Mild/moderate deviation Trunk Description Marked sway or uses aide Walking Stance Heels apart Scoring and Interpretation Tinetti Composite Score (points) 6 Interpretation of Scores High risk for falls(< 19) Herrera Fall Scale Copyright Permission PT-OP-E Functional Tests Start: 05/28/19 08:11 Freq: Status: Active Protocol: Document 05/14/21 10:50 [facility] (Rec: 05/14/21 11:08 [facility] [id number]) Functional Tests 6 Minute Walk Test Distance 169ft Device Used spc, TB wrapping Comments pt has headache today and feels that may have slowed her down. Timed Up and Go (TUG) Score 107 seconds PT-OP-G Mobility & Gait Start: 05/28/19 08:11 Freq: Status: Active Protocol: Document 05/26/20 11:15 SAK (Rec: 05/26/20 17:04 [facility]AK [id number]) OP Mobility Evaluation Bed Mobility Rolling min assist to right CGA to left Supine to and from Sit min assist to right CGA to left Transfers Sit to Stand CGA to min assist without UE use Bed to Chair Transfers requires use of right UE but able to do with SBA Floor Transfers unable PT-OP-H Neuro Start: 05/28/19 08:11 Freq: Status: Active Protocol: Document 05/29/19 14:30 SAK (Rec: 05/30/19 14:24 [facility] [id number]) Sensation Evaluation Gross Sensation Gross Sensation Left UE Impaired,Left LE Impaired Sensation Description Paresthesia,Numbness Coordination Evaluation Lower Extremity Tests Left Alternate Heel to Knee; Heel to Toe Test Moderate Impairment Heel on Boles Test Moderate Impairment Foot Tapping Test Moderate Impairment PT-OP-K Range of Motion Start: 05/28/19 08:11 Freq: Status: Active Protocol: Document 05/26/20 11:15 SAK (Rec: 05/26/20 17:04 [facility] [id number]) Hip Goniometric Range of Motion Hip jake Hip ROM WFL Yes Comments actively right LE, passively left LE Knee Goniometric Range of Motion Knee jake Knee ROM WFL Yes Ankle and Foot Goniometric Range of Motion Ankle and Foot Left Passive Ankle/Foot ROM WFL No Left Active Ankle/Foot ROM WFL No PT-OP-M Strength Start: 05/28/19 08:11 Freq: Status: Active Protocol: Document 05/26/20 11:15 [facility] (Rec: 05/26/20 17:04 [facility] [id number]) Hip Strength Hip Manual Muscle Testing Left Flexion (L2) 3- Fair- Extension (S1) 2 Poor Abduction 2+ Poor+ External Rotation 3- Fair- Internal Rotation 3+ Fair+ Right Flexion (L2) 4 Good Extension (S1) 4- Good- Abduction 4 Good External Rotation 3+ Fair+ Internal Rotation 4- Good- PT-OP-Q Treatments Start: 05/28/19 08:11 Freq: Status: Active Protocol: Document 04/08/22 10:35 [facility] (Rec: 04/08/22 11:23 [facility] [id number]) Cardio Equipment Recumbent Stepper (Sci-Fit) Duration (Minutes) 10 Resistance 2 Seat Position 11 Other no AFO; cues for left LE alignment, 1.24 mile Therapeutic Exercises Sitting Exercises scapular retraction Reps/Minutes 10x Comments verbal and manual cues seated crunches Reps/Minutes 10x HC stretch Side left Resistance AAROM Equipment Used manual Reps/Minutes 30 x 2 Standing Exercises minisquats Standing Exercise Name squats Equipment Used // Reps/Minutes 2x10 Comments window for visual feedback sit to stands Standing Exercise Name sit to stand Equipment Used mesh chair Reps/Minutes 5x Comments cues for leftward weight shift Gait Training Gait Activity parallel bars Description forward,back Device Used //bar mostly no UE support, occasional light touch support Level of Assistance no AFO Surface firm Distance/Duration 1x each direction Treatment Focus neutral alignment, weight- shift over LLE required verbal sequencing Comments mirror for visual feedback pre-gait weight shifts Description side to side with and without AFO Device Used none Level of Assistance CG, verbal cues Surface firm Distance/Duration rail on R Treatment Focus increased weight bearing left LE (cued >50-75%) Comments mirror for visual feedback 1 Description level surface Device Used AFO Level of Assistance CGA, cues Surface indoor carpet, tile, firm Distance/Duration 100' x 2 Comments short seated rest break at 100 ' PT-OP-R Modalities Start: 05/28/19 08:11 Freq: Status: Active Protocol: Document 12/29/20 10:30 [facility] (Rec: 12/29/20 11:44 [facility] [id number]) Electric Stimulation Electric Stimulation Functional Electric Stimulation Body Location L hand/ forearm extensors Duration (Minutes) 2 Patient Position Sitting Comments NMES- education on placement of pad for muscular feedback extension based- check self placement understanding. PT-OP-T Assessment and Plan Start: 05/28/19 08:11 Freq: Status: Active Protocol: Document 04/08/22 10:35 [facility] (Rec: 04/08/22 11:23 [facility] [id number]) Physical Therapy Assessment Goals Five Impairment gait speed not adequate for safe community ambulation Pastry Assistant Goal (LTG) Patient able to ambulate 300' in 6 min. TUG score no greater than 30 sec 06/02/20: 134' 08/28/20: 144', likely not as high due to new shoes and wearing old AFO because fits better in new shoes. Requires level 4 theraband for derotation of left LE into more neutral position for gait . 09/19/20: 146 ft 6 min w/ QC and Tb wrapping to LLE. 11/13/20: 153 ft CG w/ SPC 2>3 pt gait w/out metronome w/ reported L glut/ lateral leg burn pain, 2 step brief stand breaks. 11/24/20: progressing 173.7 ft using SPC, predominently 2 pt gait. TUG score 59 sec using SP 01/27/21: TUG 55 sec. , 6 min walk test 199.9 ft with SPC 03/19/21: 6 min walk test 165' , TUG 1:20. Continue with use of theraband for derotation of excess ER left LE with gait . 04/16/21: 6MWT 190 ft w/ SPC and TB wrapping assist hip IR. 04/23/21: 6MWT 181 ftw/ SPC and TB wrapping 06/25/21: 6MWT 180 ft with SPC and TB wrapping. TU sec 09/16/21 - average gait speed 0 .14 m/s on 6MWT which pt completed with no AD (AFO only ). 12/23/21: most recent 6 min walk test 159 ft with no theraband derotation wrap and no assistive device LTG Duration 06/14/22 Four Impairment requires assistance with bed mobility and transfers Short Term Goal (STG) Patient will be able to perform all bed mobility independently to improve her functional independence. 10/31/19: good goal progress 06/02/20:inconsistent, but min assist most times 11/24/20: Met goal: pt is independent in supine>sit. STG Duration goal met Longterm Goal (LTG) Patient will be able to perform a floor transfer with SB to min assist. 5x sit to stand score in no more than 15 sec as measure of functional strength for transfers 10/31/19: max assist today 01/02/20: has not been willing to try since 10/31/19 06/02/21: does not feel strong enough to try yet. 06/25/21: 08/28/20: max assistance required 12/02/20: remains at max assist , not recently willing to attempt floor transfer. 5x sit to stand score 26 seconds 01/27/21: not tried recently. 03/24/21: 5x sit to stand 25 sec. No floor transfer today 06/25/21: 5x sit to stand 24 sec. Patient didn't feel up to doing floor transfer, remains a concern 09/16/21: Pt willing to work on floor transfers but demonstrates a great deal of fear avoidance. 12/23/21: 5 Time Sit to Stand today in 30.4 seconds from standard height chair with no use of RUE LTG Duration 06/14/22 Three Impairment weakness left UE and LE s/p CVA Longterm Goal (LTG) Improve functional strength in left LE, as evidenced by ability to move from sit > < stand without use of UE's. 10/31/19: OT starts tomorrow. Good progress with sit to stand, though mostly using right UE and LE 01/02/20: Improving ability to perform, able to increase weight-bearing through left LE with cues, but still some use of right UE 05/26/20: With manual and visual feedback patient able to transfer sit to stand with only CG A. 08/28/20: inconsistent ability to move sit to stand without using UE's, but able to do transfer without physical assistance 11/24/20: Goal Met 01/27/21: more difficulty recently, having to use hands. Goal reactivated. 03/24/21: difficulty motor planning and performing sit to stand today. 06/25/21: patient becomes frustrated with sit to stand transfers as she expresses she feels she has a hard time remembering how to do it, has to use right UE 09/16/21 Pt completes sit to stand x 5 today without use of RUE from std height chair. LTG Duration goal met Two Impairment balance dysfunction with high risk for falls Longterm Goal (LTG) Improve balance as evidenced by improvement in Tinnetti balance and gait score to low fall risk range to improve safety in the home and community. 10/31/19: remains high risk for falls 01/02/20: some improvement but still in high risk category 05/26/20: Tinetti score in high risk category 08/28/20: moderate risk for falls 12/02/20: remains in moderate risk for falls. 01/27/21: moderate risk for falls 03/24/21: no significant change noted today but again having poor day. 06/25/21: Moderate risk for falls, though no reported falls over past few months. 09/16/21 No change 12/23/21: improved by 3 points 03/16/22: no further change this treatment period LTG Duration 06/14/22 One Impairment requires armaan-walker for gait, limited to household gait Pastry Assistant Goal (LTG) Patient able to ambulate with least restrictive device for functional community distances to improve her functional independence and quality of life. 10/30/19: no progress due to Covid 19. 11/02/19: able to ambulate with quad cane but with very slow speed, household distances, very short community distances . 05/26/20: Now able to ambulate with use of single point cane and use of L4 theraband wrapped around left LE to facilitate left LE internal rotation for improved alignment. Patient unable to don the theraband on her own. Gait is for short distances and very slow at 39 ft in 2 min. 08/28/20: has demonstrated improved gait ability, still using theraband for derotation of LE for more neutral position. Able to consistenly use quad cane and is increasing stride length especially with cues. Now able to ascend and descend 4 stairs with min assist using railing. Mod assist on 6 stairs. 12/02/20: Patient ambulating with SPC, mostly household but some community distances, improved gait alignment with use of theraband for improved alignment. Patient not consistently able to ambulate community distances due to pain in her left LE, and lack of neurological control left LE. Patient may benefit from modification to her current AFO or fabrication of new AFO. 173 ft in 6 minutes 01/27/21: using SPC. Limitations due to left foot, knee and hip pain, right wrist pain 6 min walk test improved to 199.9 feet today 03/24/21: slower 6 min walk test today as above. Has had modification to her AFO with some improvement in her function, but had poor day today. 06/25/21: 180' on 6 min walk test, patient reports left knee feeling wonky, and right UE still painful due to surgery' having stitches out today. Also c/o lack of caregiver recently has limited her walking, no outings. Will try again next session. 09/16/21: Pt completes 6MWT without cane today/ Average gait speed 0.14 12/23/21: [place] is now able to ambulate indoors with no assistive device. Outdoors on level surfaces with no device with CGA, uneven surfaces requires cane and CG to mod assist. Continues to improve. 03/16/22: No improvement in speed, though patient continues to be able to ambulate without device most of the time in PT though doesn 't do at home due to fear. Improved confidence on compliant surface in clinic with ability to do without device. LTG Duration 06/14/22 Assessment Summary Assessment Switched lap to clockwise today with patient noting increased difficulty with orientation. With fatigue noting increased hip ER and decreased step length right, though initially demonstrating improved step length right. Physical Therapy Plan Frequency and Duration Frequency of Treatment 2x/Week Duration of treatment (weeks) 12 Plan of Care Start Date 03/16/22 Plan of Care End Date 06/14/22 Therapeutic Interventions Therapeutic Interventions Aquatic Therapy,Balance Training,Gait Training,Home Exercise Program,Neuromuscular Re-education,Orthotic/ Prosthetic Management,Patient/ Caregiver Education,Self-Care/ Home Management,Taping, Therapeutic Activities, Therapeutic Exercises Modalities Cold Pack/Ice Massage,Hot Packs Next Visit Focus/Plan Next Note Type Treatment Note Next Visit Plan Continue closed chain activities without AFO as tolerated and progress gait with AFO without devicefor alternatng clockwise and counterclockwise, improved functional speed, balance with least restrictive device. Floor transfers. Functional strengthening and flexibility exercises.
--- NOTE | 2022-04-14 11:19 | PT.OTN ---
Current Diagnoses Difficulty in walking, not elsewhere classified (04/14/22) Weakness (04/14/22) History of falling (04/14/22) Physical Therapy Treatment Note PT-OP-A Visit Information Start: 05/28/19 08:11 Freq: Status: Active Protocol: Document 04/14/22 10:30 DCW (Rec: 04/14/22 11:19 DCW [id number]) Out-Patient Physical Therapy Visit Information Visit Information Visit Type Treatment Note Visit Start Time 10:30 Visit Stop Time 11:15 Total Visit Minutes 45 Visit Number 175 Precautions Precautions Seizure disorder memory dysfunction PT-OP-B Current Condition Start: 05/28/19 08:11 Freq: Status: Active Protocol: Document 06/04/20 11:15 SAK (Rec: 06/05/20 16:34 SAK [id number]) Current Condition History of Current Condition Onset Date 2014 Current Complaints weakness, requires assistance with all mobility and household tasks History of Current Condition Reports that she suffered a stroke in 2014 after surgery for brain aneurysm. CVA caused weakness on the left side of her body, gait and balance difficulty, seizures. PT-OP-C Subjective Start: 05/28/19 08:11 Freq: Status: Active Protocol: Document 04/14/22 10:30 DCW (Rec: 04/14/22 11:19 DCW [id number]) OP-PT Subjective Patient Comments Patient Comments Pt complaining of increased leg and toe stiffness today. PT-OP-D Balance Start: 05/28/19 08:11 Freq: Status: Active Protocol: Document 05/29/19 14:30 SAK (Rec: 05/30/19 14:24 SAK [id number]) OP-PT Balance Assessment Sitting Balance Static Sitting Balance Ability Good Dynamic Sitting Balance Ability Fair Standing Balance Static Standing Balance Ability Good Dynamic Standing Balance Ability Fair Device Used hemiwalker right Tinetti Balance Assessment Sitting Balance Sitting Balance Steady, safe Arising from Chair Attempts to Arise Able, requires >1 attempt Standing Balance Immediate Standing Balance Steady with support Standing Balance Steady, wide stance Nudged Response Begins to fall Standing with Eyes Closed Unsteady Turning Step Pattern Turning 360 Degrees Discontinuous steps Stability Turning 360 Degrees Unsteady, grabs/staggers Sitting Down Sitting Down Uses arms or unsteady Gait and Step Initiation of Gait Hesitancy, mult. attempts Right Foot Step Length Does not pass stance ft. Right Foot Step Height Does not clear floor Left Foot Step Length Does not pass stance foot Left Foot Step Height Does not clear floor Step Description Step Symmetry Step length not equal Gait Description Path Description Mild/moderate deviation Trunk Description Marked sway or uses aide Walking Stance Heels apart Scoring and Interpretation Tinetti Composite Score (points) 6 Interpretation of Scores High risk for falls(< 19) Herrera Fall Scale Copyright Permission PT-OP-E Functional Tests Start: 05/28/19 08:11 Freq: Status: Active Protocol: Document 05/14/21 10:50 AMH (Rec: 05/14/21 11:08 AMH [id number]) Functional Tests 6 Minute Walk Test Distance 169ft Device Used spc, TB wrapping Comments pt has headache today and feels that may have slowed her down. Timed Up and Go (TUG) Score 107 seconds PT-OP-G Mobility & Gait Start: 05/28/19 08:11 Freq: Status: Active Protocol: Document 05/26/20 11:15 SAK (Rec: 05/26/20 17:04 SAK [id number]) OP Mobility Evaluation Bed Mobility Rolling min assist to right CGA to left Supine to and from Sit min assist to right CGA to left Transfers Sit to Stand CGA to min assist without UE use Bed to Chair Transfers requires use of right UE but able to do with SBA Floor Transfers unable PT-OP-H Neuro Start: 05/28/19 08:11 Freq: Status: Active Protocol: Document 05/29/19 14:30 SAK (Rec: 05/30/19 14:24 SAK [id number]) Sensation Evaluation Gross Sensation Gross Sensation Left UE Impaired,Left LE Impaired Sensation Description Paresthesia,Numbness Coordination Evaluation Lower Extremity Tests Left Alternate Heel to Knee; Heel to Toe Test Moderate Impairment Heel on Boles Test Moderate Impairment Foot Tapping Test Moderate Impairment PT-OP-K Range of Motion Start: 05/28/19 08:11 Freq: Status: Active Protocol: Document 05/26/20 11:15 SAK (Rec: 05/26/20 17:04 SAK [id number]) Hip Goniometric Range of Motion Hip jake Hip ROM WFL Yes Comments actively right LE, passively left LE Knee Goniometric Range of Motion Knee jake Knee ROM WFL Yes Ankle and Foot Goniometric Range of Motion Ankle and Foot Left Passive Ankle/Foot ROM WFL No Left Active Ankle/Foot ROM WFL No PT-OP-M Strength Start: 05/28/19 08:11 Freq: Status: Active Protocol: Document 05/26/20 11:15 SAK (Rec: 05/26/20 17:04 SAK [id number]) Hip Strength Hip Manual Muscle Testing Left Flexion (L2) 3- Fair- Extension (S1) 2 Poor Abduction 2+ Poor+ External Rotation 3- Fair- Internal Rotation 3+ Fair+ Right Flexion (L2) 4 Good Extension (S1) 4- Good- Abduction 4 Good External Rotation 3+ Fair+ Internal Rotation 4- Good- PT-OP-Q Treatments Start: 05/28/19 08:11 Freq: Status: Active Protocol: Document 04/14/22 10:30 DCW (Rec: 04/14/22 11:19 DCW [id number]) Cardio Equipment Recumbent Stepper (Sci-Fit) Duration (Minutes) 8 Resistance 2 Seat Position 9 Other no AFO; cues for left LE alignment, 1.24 mile Therapeutic Exercises Supine Exercises SKTC Supine Exercise Name SKTC piriformis stretch Reps/Minutes 2x Comments passive ITB stretch w/ strap Supine Exercise Name AAROM Side left Equipment Used manual assist AAROM Comments cued slow movement into patient feedback: hip flex/ knee ext/ hip add alejandro gastroc stretch Supine Exercise Name manual stretch calf Side left Equipment Used in sitting pre-gait hamstring stretch Side left Reps/Minutes 2x30s Comments manual, review with caregiver Gait Training Gait Activity 1 Description level surface Device Used AFO Level of Assistance CGA, cues Surface indoor carpet, tile, firm Distance/Duration 100' x 2 Comments foot increased ER, c/o toes curling PT-OP-R Modalities Start: 05/28/19 08:11 Freq: Status: Active Protocol: Document 12/29/20 10:30 SP (Rec: 12/29/20 11:44 SP [id number]) Electric Stimulation Electric Stimulation Functional Electric Stimulation Body Location L hand/ forearm extensors Duration (Minutes) 2 Patient Position Sitting Comments NMES- education on placement of pad for muscular feedback extension based- check self placement understanding. PT-OP-T Assessment and Plan Start: 05/28/19 08:11 Freq: Status: Active Protocol: Document 04/14/22 10:30 DCW (Rec: 04/14/22 11:19 DCW [id number]) Physical Therapy Assessment Goals Five Impairment gait speed not adequate for safe community ambulation Retirement Goal (LTG) Patient able to ambulate 300' in 6 min. TUG score no greater than 30 sec 06/02/20: 134' 08/28/20: 144', likely not as high due to new shoes and wearing old AFO because fits better in new shoes. Requires level 4 theraband for derotation of left LE into more neutral position for gait . 09/19/20: 146 ft 6 min w/ QC and Tb wrapping to LLE. 11/13/20: 153 ft CG w/ SPC 2>3 pt gait w/out metronome w/ reported L glut/ lateral leg burn pain, 2 step brief stand breaks. 11/24/20: progressing 173.7 ft using SPC, predominently 2 pt gait. TUG score 59 sec using SP 01/27/21: TUG 55 sec. , 6 min walk test 199.9 ft with SPC 03/19/21: 6 min walk test 165' , TUG 1:20. Continue with use of theraband for derotation of excess ER left LE with gait . 04/16/21: 6MWT 190 ft w/ SPC and TB wrapping assist hip IR. 04/23/21: 6MWT 181 ftw/ SPC and TB wrapping 06/25/21: 6MWT 180 ft with SPC and TB wrapping. TU sec 09/16/21 - average gait speed 0 .14 m/s on 6MWT which pt completed with no AD (AFO only ). 12/23/21: most recent 6 min walk test 159 ft with no theraband derotation wrap and no assistive device LTG Duration 06/14/22 Four Impairment requires assistance with bed mobility and transfers Short Term Goal (STG) Patient will be able to perform all bed mobility independently to improve her functional independence. 10/31/19: good goal progress 06/02/20:inconsistent, but min assist most times 11/24/20: Met goal: pt is independent in supine>sit. STG Duration goal met Publicist Goal (LTG) Patient will be able to perform a floor transfer with SB to min assist. 5x sit to stand score in no more than 15 sec as measure of functional strength for transfers 10/31/19: max assist today 01/02/20: has not been willing to try since 10/31/19 06/02/21: does not feel strong enough to try yet. 06/25/21: 08/28/20: max assistance required 12/02/20: remains at max assist , not recently willing to attempt floor transfer. 5x sit to stand score 26 seconds 01/27/21: not tried recently. 03/24/21: 5x sit to stand 25 sec. No floor transfer today 06/25/21: 5x sit to stand 24 sec. Patient didn't feel up to doing floor transfer, remains a concern 09/16/21: Pt willing to work on floor transfers but demonstrates a great deal of fear avoidance. 12/23/21: 5 Time Sit to Stand today in 30.4 seconds from standard height chair with no use of RUE LTG Duration 06/14/22 Three Impairment weakness left UE and LE s/p CVA Publicist Goal (LTG) Improve functional strength in left LE, as evidenced by ability to move from sit > < stand without use of UE's. 10/31/19: OT starts tomorrow. Good progress with sit to stand, though mostly using right UE and LE 01/02/20: Improving ability to perform, able to increase weight-bearing through left LE with cues, but still some use of right UE 05/26/20: With manual and visual feedback patient able to transfer sit to stand with only CG A. 08/28/20: inconsistent ability to move sit to stand without using UE's, but able to do transfer without physical assistance 11/24/20: Goal Met 01/27/21: more difficulty recently, having to use hands. Goal reactivated. 03/24/21: difficulty motor planning and performing sit to stand today. 06/25/21: patient becomes frustrated with sit to stand transfers as she expresses she feels she has a hard time remembering how to do it, has to use right UE 09/16/21 Pt completes sit to stand x 5 today without use of RUE from std height chair. LTG Duration goal met Two Impairment balance dysfunction with high risk for falls Publicist Goal (LTG) Improve balance as evidenced by improvement in Tinnetti balance and gait score to low fall risk range to improve safety in the home and community. 10/31/19: remains high risk for falls 01/02/20: some improvement but still in high risk category 05/26/20: Tinetti score in high risk category 08/28/20: moderate risk for falls 12/02/20: remains in moderate risk for falls. 01/27/21: moderate risk for falls 03/24/21: no significant change noted today but again having poor day. 06/25/21: Moderate risk for falls, though no reported falls over past few months. 09/16/21 No change 12/23/21: improved by 3 points 03/16/22: no further change this treatment period LTG Duration 06/14/22 One Impairment requires armaan-walker for gait, limited to household gait Retirement Goal (LTG) Patient able to ambulate with least restrictive device for functional community distances to improve her functional independence and quality of life. 10/30/19: no progress due to Covid 19. 11/02/19: able to ambulate with quad cane but with very slow speed, household distances, very short community distances . 05/26/20: Now able to ambulate with use of single point cane and use of L4 theraband wrapped around left LE to facilitate left LE internal rotation for improved alignment. Patient unable to don the theraband on her own. Gait is for short distances and very slow at 39 ft in 2 min. 08/28/20: has demonstrated improved gait ability, still using theraband for derotation of LE for more neutral position. Able to consistenly use quad cane and is increasing stride length especially with cues. Now able to ascend and descend 4 stairs with min assist using railing. Mod assist on 6 stairs. 12/02/20: Patient ambulating with SPC, mostly household but some community distances, improved gait alignment with use of theraband for improved alignment. Patient not consistently able to ambulate community distances due to pain in her left LE, and lack of neurological control left LE. Patient may benefit from modification to her current AFO or fabrication of new AFO. 173 ft in 6 minutes 01/27/21: using SPC. Limitations due to left foot, knee and hip pain, right wrist pain 6 min walk test improved to 199.9 feet today 03/24/21: slower 6 min walk test today as above. Has had modification to her AFO with some improvement in her function, but had poor day today. 06/25/21: 180' on 6 min walk test, patient reports left knee feeling wonky, and right UE still painful due to surgery' having stitches out today. Also c/o lack of caregiver recently has limited her walking, no outings. Will try again next session. 09/16/21: Pt completes 6MWT without cane today/ Average gait speed 0.14 12/23/21: [place] is now able to ambulate indoors with no assistive device. Outdoors on level surfaces with no device with CGA, uneven surfaces requires cane and CG to mod assist. Continues to improve. 03/16/22: No improvement in speed, though patient continues to be able to ambulate without device most of the time in PT though doesn 't do at home due to fear. Improved confidence on compliant surface in clinic with ability to do without device. LTG Duration 06/14/22 Assessment Summary Assessment Focused more today on tone management and stretching, pt initially complaining of increased tightness in calf and lateral upper leg. Noted improvement in tone following stretching. Did struggle some today with ER of foot during gait, improved some when walking without AD vs using SPC. Physical Therapy Plan Frequency and Duration Frequency of Treatment 2x/Week Duration of treatment (weeks) 12 Plan of Care Start Date 03/16/22 Plan of Care End Date 06/14/22 Therapeutic Interventions Therapeutic Interventions Aquatic Therapy,Balance Training,Gait Training,Home Exercise Program,Neuromuscular Re-education,Orthotic/ Prosthetic Management,Patient/ Caregiver Education,Self-Care/ Home Management,Taping, Therapeutic Activities, Therapeutic Exercises Modalities Cold Pack/Ice Massage,Hot Packs Next Visit Focus/Plan Next Note Type Treatment Note Next Visit Plan Continue closed chain activities without AFO as tolerated and progress gait with AFO without device for alternating clockwise and counterclockwise, improved functional speed, balance with least restrictive device. Floor transfers. Functional strengthening and flexibility exercises.
--- NOTE | 2022-04-20 12:11 | PT.OTN ---
Current Diagnoses Difficulty in walking, not elsewhere classified (04/20/22) Weakness (04/20/22) History of falling (04/20/22) Physical Therapy Treatment Note PT-OP-A Visit Information Start: 05/28/19 08:11 Freq: Status: Active Protocol: Document 04/20/22 09:00 AW (Rec: 04/20/22 12:11 AW [id number]) Out-Patient Physical Therapy Visit Information Visit Information Visit Type Treatment Note Visit Start Time 10:48 Visit Stop Time 11:15 Total Visit Minutes 27 Visit Number 176 Precautions Precautions Seizure disorder memory dysfunction PT-OP-B Current Condition Start: 05/28/19 08:11 Freq: Status: Active Protocol: Document 06/04/20 11:15 SAK (Rec: 06/05/20 16:34 SAK [id number]) Current Condition History of Current Condition Onset Date 2014 Current Complaints weakness, requires assistance with all mobility and household tasks History of Current Condition Reports that she suffered a stroke in 2014 after surgery for brain aneurysm. CVA caused weakness on the left side of her body, gait and balance difficulty, seizures. PT-OP-C Subjective Start: 05/28/19 08:11 Freq: Status: Active Protocol: Document 04/20/22 09:00 AW (Rec: 04/20/22 12:11 AW [id number]) OP-PT Subjective Patient Comments Patient Comments Pt states she has no caregiver today and had to scramble to get a ride from a friend. PT-OP-D Balance Start: 05/28/19 08:11 Freq: Status: Active Protocol: Document 05/29/19 14:30 SAK (Rec: 05/30/19 14:24 SAK [id number]) OP-PT Balance Assessment Sitting Balance Static Sitting Balance Ability Good Dynamic Sitting Balance Ability Fair Standing Balance Static Standing Balance Ability Good Dynamic Standing Balance Ability Fair Device [facility] Tinetti Balance Assessment Sitting Balance Sitting Balance Steady, safe Arising from Chair Attempts to Arise Able, requires >1 attempt Standing Balance Immediate Standing Balance Steady with support Standing Balance Steady, wide stance Nudged Response Begins to fall Standing with Eyes Closed Unsteady Turning Step Pattern Turning 360 Degrees Discontinuous steps Stability Turning 360 Degrees Unsteady, grabs/staggers Sitting Down Sitting Down Uses arms or unsteady Gait and Step Initiation of Gait Hesitancy, mult. attempts Right Foot Step Length Does not pass stance ft. Right Foot Step Height Does not clear floor Left Foot Step Length Does not pass stance foot Left Foot Step Height Does not clear floor Step Description Step Symmetry Step length not equal Gait Description Path Description Mild/moderate deviation Trunk Description Marked sway or uses aide Walking Stance Heels apart Scoring and Interpretation Tinetti Composite Score (points) 6 Interpretation of Scores High risk for falls(< 19) Herrera Fall Scale Copyright Permission PT-OP-E Functional Tests Start: 05/28/19 08:11 Freq: Status: Active Protocol: Document 05/14/21 10:50 AMH (Rec: 05/14/21 11:08 AMH [id number]) Functional Tests 6 Minute Walk Test Distance 169ft Device Used spc, TB wrapping Comments pt has headache today and feels that may have slowed her down. Timed Up and Go (TUG) Score 107 seconds PT-OP-G Mobility & Gait Start: 05/28/19 08:11 Freq: Status: Active Protocol: Document 05/26/20 11:15 SAK (Rec: 05/26/20 17:[address] [facility] [id number]) OP Mobility Evaluation Bed Mobility Rolling min assist to right CGA to left Supine to and from Sit min assist to right CGA to left Transfers Sit to Stand CGA to min assist without UE use Bed to Chair Transfers requires use of right UE but able to do with SBA Floor Transfers unable PT-OP-H Neuro Start: 05/28/19 08:11 Freq: Status: Active Protocol: Document 05/29/19 14:30 SAK (Rec: 05/30/19 14:24 SAK [id number]) Sensation Evaluation Gross Sensation Gross Sensation Left UE Impaired,Left LE Impaired Sensation Description Paresthesia,Numbness Coordination Evaluation Lower Extremity Tests Left Alternate Heel to Knee; Heel to Toe Test Moderate Impairment Heel on Boles Test Moderate Impairment Foot Tapping Test Moderate Impairment PT-OP-K Range of Motion Start: 05/28/19 08:11 Freq: Status: Active Protocol: Document 05/26/20 11:15 SAK (Rec: 05/26/20 17:04 SAK [id number]) Hip Goniometric Range of Motion Hip jake Hip ROM WFL Yes Comments actively right LE, passively left LE Knee Goniometric Range of Motion Knee jake Knee ROM WFL Yes Ankle and Foot Goniometric Range of Motion Ankle and Foot Left Passive Ankle/Foot ROM WFL No Left Active Ankle/Foot ROM WFL No PT-OP-M Strength Start: 05/28/19 08:11 Freq: Status: Active Protocol: Document 05/26/20 11:15 SAK (Rec: 05/26/20 17:04 SAK [id number]) Hip Strength Hip Manual Muscle Testing Left Flexion (L2) 3- Fair- Extension (S1) 2 Poor Abduction 2+ Poor+ External Rotation 3- Fair- Internal Rotation 3+ Fair+ Right Flexion (L2) 4 Good Extension (S1) 4- Good- Abduction 4 Good External Rotation 3+ Fair+ Internal Rotation 4- Good- PT-OP-Q Treatments Start: 05/28/19 08:11 Freq: Status: Active Protocol: Document 04/20/22 09:00 AW (Rec: 04/20/22 12:11 AW [id number]) Therapeutic Exercises Sitting Exercises HS stretch Reps/Minutes 2x30 Comments manual HC stretch Side left Resistance AAROM Equipment Used manual Reps/Minutes 30 x 2 Standing Exercises sit to stands Standing Exercise Name sit to stand Equipment Used mesh chair Reps/Minutes 10x Comments cues for leftward weight shift Gait Training Gait Activity stairs Description 4 stairs Device Used R railing, AFO Level of Assistance CGA ascend, SBA descend Distance/Duration x6 Treatment Focus weight shift, decreased UE support 1 Description level surface Device Used AFO Level of Assistance CGA, cues Surface indoor carpet, tile, yoga mats layered for add'l challenge Distance/Duration 100' x 2 Comments clockwise with right turns PT-OP-R Modalities Start: 05/28/19 08:11 Freq: Status: Active Protocol: Document 12/29/20 10:30 SP (Rec: 12/29/20 11:44 SP [id number]) Electric Stimulation Electric Stimulation Functional Electric Stimulation Body Location L hand/ forearm extensors Duration (Minutes) 2 Patient Position Sitting Comments NMES- education on placement of pad for muscular feedback extension based- check self placement understanding. PT-OP-T Assessment and Plan Start: 05/28/19 08:11 Freq: Status: Active Protocol: Document 04/20/22 09:00 AW (Rec: 04/20/22 12:11 AW [id number]) Physical Therapy Assessment Goals Five Impairment gait speed not adequate for safe community ambulation Alf Goal (LTG) Patient able to ambulate 300' in 6 min. TUG score no greater than 30 sec 06/02/20: 134' 08/28/20: 144', likely not as high due to new shoes and wearing old AFO because fits better in new shoes. Requires level 4 theraband for derotation of left LE into more neutral position for gait . 09/19/20: 146 ft 6 min w/ QC and Tb wrapping to LLE. 11/13/20: 153 ft CG w/ SPC 2>3 pt gait w/out metronome w/ reported L glut/ lateral leg burn pain, 2 step brief stand breaks. 11/24/20: progressing 173.7 ft using SPC, predominently 2 pt gait. TUG score 59 sec using SP 01/27/21: TUG 55 sec. , 6 min walk test 199.9 ft with SPC 03/19/21: 6 min walk test 165' , TUG 1:20. Continue with use of theraband for derotation of excess ER left LE with gait . 04/16/21: 6MWT 190 ft w/ SPC and TB wrapping assist hip IR. 04/23/21: 6MWT 181 ftw/ SPC and TB wrapping 06/25/21: 6MWT 180 ft with SPC and TB wrapping. TU sec 09/16/21 - average gait speed 0 .14 m/s on 6MWT which pt completed with no AD (AFO only ). 12/23/21: most recent 6 min walk test 159 ft with no theraband derotation wrap and no assistive device LTG Duration 06/14/22 Four Impairment requires assistance with bed mobility and transfers Short Term Goal (STG) Patient will be able to perform all bed mobility independently to improve her functional independence. 10/31/19: good goal progress 06/02/20:inconsistent, but min assist most times 11/24/20: Met goal: pt is independent in supine>sit. STG Duration goal met Alf Goal (LTG) Patient will be able to perform a floor transfer with SB to min assist. 5x sit to stand score in no more than 15 sec as measure of functional strength for transfers 10/31/19: max assist today 01/02/20: has not been willing to try since 10/31/19 06/02/21: does not feel strong enough to try yet. 06/25/21: 08/28/20: max assistance required 12/02/20: remains at max assist , not recently willing to attempt floor transfer. 5x sit to stand score 26 seconds 01/27/21: not tried recently. 03/24/21: 5x sit to stand 25 sec. No floor transfer today 06/25/21: 5x sit to stand 24 sec. Patient didn't feel up to doing floor transfer, remains a concern 09/16/21: Pt willing to work on floor transfers but demonstrates a great deal of fear avoidance. 12/23/21: 5 Time Sit to Stand today in 30.4 seconds from standard height chair with no use of RUE LTG Duration 06/14/22 Three Impairment weakness left UE and LE s/p CVA Client Server Programmer Goal (LTG) Improve functional strength in left LE, as evidenced by ability to move from sit > < stand without use of UE's. 10/31/19: OT starts tomorrow. Good progress with sit to stand, though mostly using right UE and LE 01/02/20: Improving ability to perform, able to increase weight-bearing through left LE with cues, but still some use of right UE 05/26/20: With manual and visual feedback patient able to transfer sit to stand with only CG A. 08/28/20: inconsistent ability to move sit to stand without using UE's, but able to do transfer without physical assistance 11/24/20: Goal Met 01/27/21: more difficulty recently, having to use hands. Goal reactivated. 03/24/21: difficulty motor planning and performing sit to stand today. 06/25/21: patient becomes frustrated with sit to stand transfers as she expresses she feels she has a hard time remembering how to do it, has to use right UE 09/16/21 Pt completes sit to stand x 5 today without use of RUE from std height chair. LTG Duration goal met Two Impairment balance dysfunction with high risk for falls Client Server Programmer Goal (LTG) Improve balance as evidenced by improvement in Tinnetti balance and gait score to low fall risk range to improve safety in the home and community. 10/31/19: remains high risk for falls 01/02/20: some improvement but still in high risk category 05/26/20: Tinetti score in high risk category 08/28/20: moderate risk for falls 12/02/20: remains in moderate risk for falls. 01/27/21: moderate risk for falls 03/24/21: no significant change noted today but again having poor day. 06/25/21: Moderate risk for falls, though no reported falls over past few months. 09/16/21 No change 12/23/21: improved by 3 points 03/16/22: no further change this treatment period LTG Duration 06/14/22 One Impairment requires armaan-walker for gait, limited to household gait Client Server Programmer Goal (LTG) Patient able to ambulate with least restrictive device for functional community distances to improve her functional independence and quality of life. 10/30/19: no progress due to Covid 19. 11/02/19: able to ambulate with quad cane but with very slow speed, household distances, very short community distances . 05/26/20: Now able to ambulate with use of single point cane and use of L4 theraband wrapped around left LE to facilitate left LE internal rotation for improved alignment. Patient unable to don the theraband on her own. Gait is for short distances and very slow at 39 ft in 2 min. 08/28/20: has demonstrated improved gait ability, still using theraband for derotation of LE for more neutral position. Able to consistenly use quad cane and is increasing stride length especially with cues. Now able to ascend and descend 4 stairs with min assist using railing. Mod assist on 6 stairs. 12/02/20: Patient ambulating with SPC, mostly household but some community distances, improved gait alignment with use of theraband for improved alignment. Patient not consistently able to ambulate community distances due to pain in her left LE, and lack of neurological control left LE. Patient may benefit from modification to her current AFO or fabrication of new AFO. 173 ft in 6 minutes 01/27/21: using SPC. Limitations due to left foot, knee and hip pain, right wrist pain 6 min walk test improved to 199.9 feet today 03/24/21: slower 6 min walk test today as above. Has had modification to her AFO with some improvement in her function, but had poor day today. 06/25/21: 180' on 6 min walk test, patient reports left knee feeling wonky, and right UE still painful due to surgery' having stitches out today. Also c/o lack of caregiver recently has limited her walking, no outings. Will try again next session. 09/16/21: Pt completes 6MWT without cane today/ Average gait speed 0.14 12/23/21: Adelaide is now able to ambulate indoors with no assistive device. Outdoors on level surfaces with no device with CGA, uneven surfaces requires cane and CG to mod assist. Continues to improve. 03/16/22: No improvement in speed, though patient continues to be able to ambulate without device most of the time in PT though doesn 't do at home due to fear. Improved confidence on compliant surface in clinic with ability to do without device. LTG Duration 06/14/22 Assessment Summary Assessment Short session today due to pt showing up late because she had no caregiver today. Adelaide worked hard and gait speed did improve without AD. Physical Therapy Plan Frequency and Duration Frequency of Treatment 2x/Week Duration of treatment (weeks) 12 Plan of Care Start Date 03/16/22 Plan of Care End Date 06/14/22 Therapeutic Interventions Therapeutic Interventions Aquatic Therapy,Balance Training,Gait Training,Home Exercise Program,Neuromuscular Re-education,Orthotic/ Prosthetic Management,Patient/ Caregiver Education,Self-Care/ Home Management,Taping, Therapeutic Activities, Therapeutic Exercises Modalities Cold Pack/Ice Massage,Hot Packs Next Visit Focus/Plan Next Note Type Treatment Note Next Visit Plan Continue closed chain activities without AFO as tolerated and progress gait with AFO without devicefor alternatng clockwise and counterclockwise, improved functional speed, balance with least restrictive device. Floor transfers. Functional strengthening and flexibility exercises.
--- NOTE | 2022-04-22 11:21 | PT.OTN ---
Current Diagnoses Difficulty in walking, not elsewhere classified (04/22/22) Weakness (04/22/22) History of falling (04/22/22) Physical Therapy Treatment Note PT-OP-A Visit Information Start: 05/28/19 08:11 Freq: Status: Active Protocol: Document 04/22/22 10:03 AW (Rec: 04/22/22 11:21 AW [id number]) Out-Patient Physical Therapy Visit Information Visit Information Visit Type Treatment Note Visit Start Time 10:30 Visit Stop Time 11:15 Total Visit Minutes 45 Visit Number 177 Precautions Precautions Seizure disorder memory dysfunction PT-OP-B Current Condition Start: 05/28/19 08:11 Freq: Status: Active Protocol: Document 06/04/20 11:15 SAK (Rec: 06/05/20 16:34 SAK [id number]) Current Condition History of Current Condition Onset Date 2014 Current Complaints weakness, requires assistance with all mobility and household tasks History of Current Condition Reports that she suffered a stroke in 2014 after surgery for brain aneurysm. CVA caused weakness on the left side of her body, gait and balance difficulty, seizures. PT-OP-C Subjective Start: 05/28/19 08:11 Freq: Status: Active Protocol: Document 04/22/22 10:03 AW (Rec: 04/22/22 11:21 AW [id number]) OP-PT Subjective Patient Comments Patient Comments Has been using her AFO less at home. PT-OP-D Balance Start: 05/28/19 08:11 Freq: Status: Active Protocol: Document 05/29/19 14:30 SAK (Rec: 05/30/19 14:24 SAK [id number]) OP-PT Balance Assessment Sitting Balance Static Sitting Balance Ability Good Dynamic Sitting Balance Ability Fair Standing Balance Static Standing Balance Ability Good Dynamic Standing Balance Ability Fair Device Used [facility] right Tinetti Balance Assessment Sitting Balance Sitting Balance Steady, safe Arising from Chair Attempts to Arise Able, requires >1 attempt Standing Balance Immediate Standing Balance Steady with support Standing Balance Steady, wide stance Nudged Response Begins to fall Standing with Eyes Closed Unsteady Turning Step Pattern Turning 360 Degrees Discontinuous steps Stability Turning 360 Degrees Unsteady, grabs/staggers Sitting Down Sitting Down Uses arms or unsteady Gait and Step Initiation of Gait Hesitancy, mult. attempts Right Foot Step Length Does not pass stance ft. Right Foot Step Height Does not clear floor Left Foot Step Length Does not pass stance foot Left Foot Step Height Does not clear floor Step Description Step Symmetry Step length not equal Gait Description Path Description Mild/moderate deviation Trunk Description Marked sway or uses aide Walking Stance Heels apart Scoring and Interpretation Tinetti Composite Score (points) 6 Interpretation of Scores High risk for falls(< 19) Herrera Fall Scale Copyright Permission PT-OP-E Functional Tests Start: 05/28/19 08:11 Freq: Status: Active Protocol: Document 05/14/21 10:50 AMH (Rec: 05/14/21 11:08 AMH [id number]) Functional Tests 6 Minute Walk Test Distance 169ft Device Used spc, TB wrapping Comments pt has headache today and feels that may have slowed her down. Timed Up and Go (TUG) Score 107 seconds PT-OP-G Mobility & Gait Start: 05/28/19 08:11 Freq: Status: Active Protocol: Document 05/26/20 11:15 SAK (Rec: 05/26/20 17:04 SAK [id number]) OP Mobility Evaluation Bed Mobility Rolling min assist to right CGA to left Supine to and from Sit min assist to right CGA to left Transfers Sit to Stand CGA to min assist without UE use Bed to Chair Transfers requires use of right UE but able to do with SBA Floor Transfers unable PT-OP-H Neuro Start: 05/28/19 08:11 Freq: Status: Active Protocol: Document 05/29/19 14:30 SAK (Rec: 05/30/19 14:24 SAK [id number]) Sensation Evaluation Gross Sensation Gross Sensation Left UE Impaired,Left LE Impaired Sensation Description Paresthesia,Numbness Coordination Evaluation Lower Extremity Tests Left Alternate Heel to Knee; Heel to Toe Test Moderate Impairment Heel on Boles Test Moderate Impairment Foot Tapping Test Moderate Impairment PT-OP-K Range of Motion Start: 05/28/19 08:11 Freq: Status: Active Protocol: Document 05/26/20 11:15 SAK (Rec: 05/26/20 17:04 SAK [id number]) Hip Goniometric Range of Motion Hip jake Hip ROM WFL Yes Comments actively right LE, passively left LE Knee Goniometric Range of Motion Knee jake Knee ROM WFL Yes Ankle and Foot Goniometric Range of Motion Ankle and Foot Left Passive Ankle/Foot ROM WFL No Left Active Ankle/Foot ROM WFL No PT-OP-M Strength Start: 05/28/19 08:11 Freq: Status: Active Protocol: Document 05/26/20 11:15 SAK (Rec: 05/26/20 17:04 SAK [id number]) Hip Strength Hip Manual Muscle Testing Left Flexion (L2) 3- Fair- Extension (S1) 2 Poor Abduction 2+ Poor+ External Rotation 3- Fair- Internal Rotation 3+ Fair+ Right Flexion (L2) 4 Good Extension (S1) 4- Good- Abduction 4 Good External Rotation 3+ Fair+ Internal Rotation 4- Good- PT-OP-Q Treatments Start: 05/28/19 08:11 Freq: Status: Active Protocol: Document 04/22/22 10:03 AW (Rec: 04/22/22 11:21 AW [id number]) Cardio Equipment Recumbent Stepper (Sci-Fit) Duration (Minutes) 8 Resistance 2 Seat Position 9 Other no AFO; cues for left LE alignment, 1.28 mile Therapeutic Exercises Standing Exercises sit to stands Standing Exercise Name sit to stand Equipment Used mesh chair Reps/Minutes 10x Comments cues for leftward weight shift Gait Training Gait Activity curb simulation Description ascend/descend Device Used right rail, AFO Level of Assistance SBA/CGA Surface 6 step, blue foam, yoga mat over step/under step Distance/Duration 6x Treatment Focus increase stability curb mgt Comments cued quad facilitation L knee stance LE during RLE advancement to ascend, and decreased UE support Added rocker board to beginning of mat for increased challenge forward/back steps Description fwd, bwd, lateral Device Used // PRN Level of Assistance no AD, CG Surface firm no AFO Distance/Duration 10 ft x3 laps Treatment Focus increase weight bearing LLE Comments decreased LLE step length walking backward, required cues for step length and CGA. pre-gait weight shifts Description side to side, stride stance without AFO Device Used none Level of Assistance CG, verbal cues Surface firm Distance/Duration rail on R Treatment Focus increased weight bearing left LE (cued >50-75%) Comments mirror for visual feedback 1 Description level surface Device Used AFO Level of Assistance CGA, cues Surface indoor carpet, tile Distance/Duration 100' x 2 PT-OP-R Modalities Start: 05/28/19 08:11 Freq: Status: Active Protocol: Document 12/29/20 10:30 SP (Rec: 12/29/20 11:44 SP [id number]) Electric Stimulation Electric Stimulation Functional Electric Stimulation Body Location L hand/ forearm extensors Duration (Minutes) 2 Patient Position Sitting Comments NMES- education on placement of pad for muscular feedback extension based- check self placement understanding. PT-OP-T Assessment and Plan Start: 05/28/19 08:11 Freq: Status: Active Protocol: Document 04/22/22 10:03 AW (Rec: 04/22/22 11:21 AW [id number]) Physical Therapy Assessment Goals Five Impairment gait speed not adequate for safe community ambulation Survey Project Manager Goal (LTG) Patient able to ambulate 300' in 6 min. TUG score no greater than 30 sec 06/02/20: 134' 08/28/20: 144', likely not as high due to new shoes and wearing old AFO because fits better in new shoes. Requires level 4 theraband for derotation of left LE into more neutral position for gait . 09/19/20: 146 ft 6 min w/ QC and Tb wrapping to LLE. 11/13/20: 153 ft CG w/ SPC 2>3 pt gait w/out metronome w/ reported L glut/ lateral leg burn pain, 2 step brief stand breaks. 11/24/20: progressing 173.7 ft using SPC, predominently 2 pt gait. TUG score 59 sec using SP 01/27/21: TUG 55 sec. , 6 min walk test 199.9 ft with SPC 03/19/21: 6 min walk test 165' , TUG 1:20. Continue with use of theraband for derotation of excess ER left LE with gait . 04/16/21: 6MWT 190 ft w/ SPC and TB wrapping assist hip IR. 04/23/21: 6MWT 181 ftw/ SPC and TB wrapping 06/25/21: 6MWT 180 ft with SPC and TB wrapping. TU sec 09/16/21 - average gait speed 0 .14 m/s on 6MWT which pt completed with no AD (AFO only ). 12/23/21: most recent 6 min walk test 159 ft with no theraband derotation wrap and no assistive device LTG Duration 06/14/22 Four Impairment requires assistance with bed mobility and transfers Short Term Goal (STG) Patient will be able to perform all bed mobility independently to improve her functional independence. 10/31/19: good goal progress 06/02/20:inconsistent, but min assist most times 11/24/20: Met goal: pt is independent in supine>sit. STG Duration goal met Survey Project Manager Goal (LTG) Patient will be able to perform a floor transfer with SB to min assist. 5x sit to stand score in no more than 15 sec as measure of functional strength for transfers 10/31/19: max assist today 01/02/20: has not been willing to try since 10/31/19 06/02/21: does not feel strong enough to try yet. 06/25/21: 08/28/20: max assistance required 12/02/20: remains at max assist , not recently willing to attempt floor transfer. 5x sit to stand score 26 seconds 01/27/21: not tried recently. 03/24/21: 5x sit to stand 25 sec. No floor transfer today 06/25/21: 5x sit to stand 24 sec. Patient didn't feel up to doing floor transfer, remains a concern 09/16/21: Pt willing to work on floor transfers but demonstrates a great deal of fear avoidance. 12/23/21: 5 Time Sit to Stand today in 30.4 seconds from standard height chair with no use of RUE LTG Duration 06/14/22 Three Impairment weakness left UE and LE s/p CVA Halfway Goal (LTG) Improve functional strength in left LE, as evidenced by ability to move from sit > < stand without use of UE's. 10/31/19: OT starts tomorrow. Good progress with sit to stand, though mostly using right UE and LE 01/02/20: Improving ability to perform, able to increase weight-bearing through left LE with cues, but still some use of right UE 05/26/20: With manual and visual feedback patient able to transfer sit to stand with only CG A. 08/28/20: inconsistent ability to move sit to stand without using UE's, but able to do transfer without physical assistance 11/24/20: Goal Met 01/27/21: more difficulty recently, having to use hands. Goal reactivated. 03/24/21: difficulty motor planning and performing sit to stand today. 06/25/21: patient becomes frustrated with sit to stand transfers as she expresses she feels she has a hard time remembering how to do it, has to use right UE 09/16/21 Pt completes sit to stand x 5 today without use of RUE from std height chair. LTG Duration goal met Two Impairment balance dysfunction with high risk for falls Halfway Goal (LTG) Improve balance as evidenced by improvement in Tinnetti balance and gait score to low fall risk range to improve safety in the home and community. 10/31/19: remains high risk for falls 01/02/20: some improvement but still in high risk category 05/26/20: Tinetti score in high risk category 08/28/20: moderate risk for falls 12/02/20: remains in moderate risk for falls. 01/27/21: moderate risk for falls 03/24/21: no significant change noted today but again having poor day. 06/25/21: Moderate risk for falls, though no reported falls over past few months. 09/16/21 No change 12/23/21: improved by 3 points 03/16/22: no further change this treatment period LTG Duration 06/14/22 One Impairment requires armaan-walker for gait, limited to household gait Halfway Goal (LTG) Patient able to ambulate with least restrictive device for functional community distances to improve her functional independence and quality of life. 10/30/19: no progress due to Covid 19. 11/02/19: able to ambulate with quad cane but with very slow speed, household distances, very short community distances . 05/26/20: Now able to ambulate with use of single point cane and use of L4 theraband wrapped around left LE to facilitate left LE internal rotation for improved alignment. Patient unable to don the theraband on her own. Gait is for short distances and very slow at 39 ft in 2 min. 08/28/20: has demonstrated improved gait ability, still using theraband for derotation of LE for more neutral position. Able to consistenly use quad cane and is increasing stride length especially with cues. Now able to ascend and descend 4 stairs with min assist using railing. Mod assist on 6 stairs. 12/02/20: Patient ambulating with SPC, mostly household but some community distances, improved gait alignment with use of theraband for improved alignment. Patient not consistently able to ambulate community distances due to pain in her left LE, and lack of neurological control left LE. Patient may benefit from modification to her current AFO or fabrication of new AFO. 173 ft in 6 minutes 01/27/21: using SPC. Limitations due to left foot, knee and hip pain, right wrist pain 6 min walk test improved to 199.9 feet today 03/24/21: slower 6 min walk test today as above. Has had modification to her AFO with some improvement in her function, but had poor day today. 06/25/21: 180' on 6 min walk test, patient reports left knee feeling wonky, and right UE still painful due to surgery' having stitches out today. Also c/o lack of caregiver recently has limited her walking, no outings. Will try again next session. 09/16/21: Pt completes 6MWT without cane today/ Average gait speed 0.14 12/23/21: Adelaide is now able to ambulate indoors with no assistive device. Outdoors on level surfaces with no device with CGA, uneven surfaces requires cane and CG to mod assist. Continues to improve. 03/16/22: No improvement in speed, though patient continues to be able to ambulate without device most of the time in PT though doesn 't do at home due to fear. Improved confidence on compliant surface in clinic with ability to do without device. LTG Duration 06/14/22 Assessment Summary Assessment Worked on SciFit and walking without AFO first. Adelaide was fatigued afterward and needed more assist than usual (more reliant on rail) during curb simulation. Physical Therapy Plan Frequency and Duration Frequency of Treatment 2x/Week Duration of treatment (weeks) 12 Plan of Care Start Date 03/16/22 Plan of Care End Date 06/14/22 Therapeutic Interventions Therapeutic Interventions Aquatic Therapy,Balance Training,Gait Training,Home Exercise Program,Neuromuscular Re-education,Orthotic/ Prosthetic Management,Patient/ Caregiver Education,Self-Care/ Home Management,Taping, Therapeutic Activities, Therapeutic Exercises Modalities Cold Pack/Ice Massage,Hot Packs Next Visit Focus/Plan Next Note Type Treatment Note Next Visit Plan Continue closed chain activities without AFO as tolerated and progress gait with AFO without devicefor alternatng clockwise and counterclockwise, improved functional speed, balance with least restrictive device. Floor transfers. Functional strengthening and flexibility exercises.
--- NOTE | 2022-05-04 17:05 | PT.OTN ---
Current Diagnoses Difficulty in walking, not elsewhere classified (05/04/22) Weakness (05/04/22) History of falling (05/04/22) Physical Therapy Treatment Note PT-OP-A Visit Information Start: 05/28/19 08:11 Freq: Status: Active Protocol: Document 05/04/22 10:30 SAK (Rec: 05/04/22 11:19 SAK [id number]) Out-Patient Physical Therapy Visit Information Visit Information Visit Type Treatment Note Visit Start Time 10:30 Visit Stop Time 11:15 Total Visit Minutes 45 Visit Number 178 Precautions Precautions Seizure disorder memory dysfunction PT-OP-B Current Condition Start: 05/28/19 08:11 Freq: Status: Active Protocol: Document 06/04/20 11:15 SAK (Rec: 06/05/20 16:34 SAK [id number]) Current Condition History of Current Condition Onset Date 2014 Current Complaints weakness, requires assistance with all mobility and household tasks History of Current Condition Reports that she suffered a stroke in 2014 after surgery for brain aneurysm. CVA caused weakness on the left side of her body, gait and balance difficulty, seizures. PT-OP-C Subjective Start: 05/28/19 08:11 Freq: Status: Active Protocol: Document 04/22/22 10:03 AW (Rec: 04/22/22 11:21 AW [id number]) OP-PT Subjective Patient Comments Patient Comments Has been using her AFO less at home. PT-OP-D Balance Start: 05/28/19 08:11 Freq: Status: Active Protocol: Document 05/29/19 14:30 SAK (Rec: 05/30/19 14:24 SAK [id number]) OP-PT Balance Assessment Sitting Balance Static Sitting Balance Ability Good Dynamic Sitting Balance Ability Fair Standing Balance Static Standing Balance Ability Good Dynamic Standing Balance Ability Fair Device Used [facility] right Tinetti Balance Assessment Sitting Balance Sitting Balance Steady, safe Arising from Chair Attempts to Arise Able, requires >1 attempt Standing Balance Immediate Standing Balance Steady with support Standing Balance Steady, wide stance Nudged Response Begins to fall Standing with Eyes Closed Unsteady Turning Step Pattern Turning 360 Degrees Discontinuous steps Stability Turning 360 Degrees Unsteady, grabs/staggers Sitting Down Sitting Down Uses arms or unsteady Gait and Step Initiation of Gait Hesitancy, mult. attempts Right Foot Step Length Does not pass stance ft. Right Foot Step Height Does not clear floor Left Foot Step Length Does not pass stance foot Left Foot Step Height Does not clear floor Step Description Step Symmetry Step length not equal Gait Description Path Description Mild/moderate deviation Trunk Description Marked sway or uses aide Walking Stance Heels apart Scoring and Interpretation Tinetti Composite Score (points) 6 Interpretation of Scores High risk for falls(< 19) Herrera Fall Scale Copyright Permission PT-OP-E Functional Tests Start: 05/28/19 08:11 Freq: Status: Active Protocol: Document 05/14/21 10:50 AMH (Rec: 05/14/21 11:08 AMH [id number]) Functional Tests 6 Minute Walk Test Distance 169ft Device Used spc, TB wrapping Comments pt has headache today and feels that may have slowed her down. Timed Up and Go (TUG) Score 107 seconds PT-OP-G Mobility & Gait Start: 05/28/19 08:11 Freq: Status: Active Protocol: Document 05/26/20 11:15 SAK (Rec: 05/26/20 17:04 SAK [id number]) OP Mobility Evaluation Bed Mobility Rolling min assist to right CGA to left Supine to and from Sit min assist to right CGA to left Transfers Sit to Stand CGA to min assist without UE use Bed to Chair Transfers requires use of right UE but able to do with SBA Floor Transfers unable PT-OP-H Neuro Start: 05/28/19 08:11 Freq: Status: Active Protocol: Document 05/29/19 14:30 SAK (Rec: 05/30/19 14:24 SAK [id number]) Sensation Evaluation Gross Sensation Gross Sensation Left UE Impaired,Left LE Impaired Sensation Description Paresthesia,Numbness Coordination Evaluation Lower Extremity Tests Left Alternate Heel to Knee; Heel to Toe Test Moderate Impairment Heel on Boles Test Moderate Impairment Foot Tapping Test Moderate Impairment PT-OP-K Range of Motion Start: 05/28/19 08:11 Freq: Status: Active Protocol: Document 05/26/20 11:15 SAK (Rec: 05/26/20 17:04 SAK [id number]) Hip Goniometric Range of Motion Hip jake Hip ROM WFL Yes Comments actively right LE, passively left LE Knee Goniometric Range of Motion Knee jake Knee ROM WFL Yes Ankle and Foot Goniometric Range of Motion Ankle and Foot Left Passive Ankle/Foot ROM WFL No Left Active Ankle/Foot ROM WFL No PT-OP-M Strength Start: 05/28/19 08:11 Freq: Status: Active Protocol: Document 05/26/20 11:15 SAK (Rec: 05/26/20 17:04 SAK [id number]) Hip Strength Hip Manual Muscle Testing Left Flexion (L2) 3- Fair- Extension (S1) 2 Poor Abduction 2+ Poor+ External Rotation 3- Fair- Internal Rotation 3+ Fair+ Right Flexion (L2) 4 Good Extension (S1) 4- Good- Abduction 4 Good External Rotation 3+ Fair+ Internal Rotation 4- Good- PT-OP-Q Treatments Start: 05/28/19 08:11 Freq: Status: Active Protocol: Document 05/04/22 10:30 SAK (Rec: 05/04/22 11:19 SAK [id number]) Cardio Equipment Recumbent Stepper (Sci-Fit) Duration (Minutes) 8 Resistance 2 Seat Position 9 Other no AFO; cues for left LE alignment, 1.0mile Therapeutic Exercises Sitting Exercises HC stretch Side left Resistance AAROM Equipment Used manual Reps/Minutes 30 x 2 Comments Instruction of caregiver Luke Standing Exercises sit to stands Standing Exercise Name sit to stand Equipment Used mesh chair Reps/Minutes 5x Comments cues for leftward weight shift , no UE assist Gait Training Gait Activity stairs Description 4 stairs Device Used R railing, AFO Level of Assistance CGA and cues for LE alignment, UE support Surface 4 stairs Distance/Duration 12 stairs Treatment Focus weight shift, decreased UE support 1 Description level surface Device Used AFO Level of Assistance CGA, cues Surface indoor carpet, tile Distance/Duration 100'x2, 50' x 1 Treatment Focus safety, improved mechanics Comments gait without device, cues for weight shift, weight acceptance, inc step length right PT-OP-R Modalities Start: 05/28/19 08:11 Freq: Status: Active Protocol: Document 12/29/20 10:30 SP (Rec: 12/29/20 11:44 SP [id number]) Electric Stimulation Electric Stimulation Functional Electric Stimulation Body Location L hand/ forearm extensors Duration (Minutes) 2 Patient Position Sitting Comments NMES- education on placement of pad for muscular feedback extension based- check self placement understanding. PT-OP-T Assessment and Plan Start: 05/28/19 08:11 Freq: Status: Active Protocol: Document 05/04/22 10:30 SAK (Rec: 05/04/22 11:19 [facility] [id number]) Physical Therapy Assessment Goals Five Impairment gait speed not adequate for safe community ambulation Fpc Goal (LTG) Patient able to ambulate 300' in 6 min. TUG score no greater than 30 sec 06/02/20: 134' 08/28/20: 144', likely not as high due to new shoes and wearing old AFO because fits better in new shoes. Requires level 4 theraband for derotation of left LE into more neutral position for gait . 09/19/20: 146 ft 6 min w/ QC and Tb wrapping to LLE. 11/13/20: 153 ft CG w/ SPC 2>3 pt gait w/out metronome w/ reported L glut/ lateral leg burn pain, 2 step brief stand breaks. 11/24/20: progressing 173.7 ft using SPC, predominently 2 pt gait. TUG score 59 sec using SP 01/27/21: TUG 55 sec. , 6 min walk test 199.9 ft with SPC 03/19/21: 6 min walk test 165' , TUG 1:20. Continue with use of theraband for derotation of excess ER left LE with gait . 04/16/21: 6MWT 190 ft w/ SPC and TB wrapping assist hip IR. 04/23/21: 6MWT 181 ftw/ SPC and TB wrapping 06/25/21: 6MWT 180 ft with SPC and TB wrapping. TU sec 09/16/21 - average gait speed 0 .14 m/s on 6MWT which pt completed with no AD (AFO only ). 12/23/21: most recent 6 min walk test 159 ft with no theraband derotation wrap and no assistive device LTG Duration 06/14/22 Four Impairment requires assistance with bed mobility and transfers Short Term Goal (STG) Patient will be able to perform all bed mobility independently to improve her functional independence. 10/31/19: good goal progress 06/02/20:inconsistent, but min assist most times 11/24/20: Met goal: pt is independent in supine>sit. STG Duration goal met Fpc Goal (LTG) Patient will be able to perform a floor transfer with SB to min assist. 5x sit to stand score in no more than 15 sec as measure of functional strength for transfers 10/31/19: max assist today 01/02/20: has not been willing to try since 10/31/19 06/02/21: does not feel strong enough to try yet. 06/25/21: 08/28/20: max assistance required 12/02/20: remains at max assist , not recently willing to attempt floor transfer. 5x sit to stand score 26 seconds 01/27/21: not tried recently. 03/24/21: 5x sit to stand 25 sec. No floor transfer today 06/25/21: 5x sit to stand 24 sec. Patient didn't feel up to doing floor transfer, remains a concern 09/16/21: Pt willing to work on floor transfers but demonstrates a great deal of fear avoidance. 12/23/21: 5 Time Sit to Stand today in 30.4 seconds from standard height chair with no use of RUE LTG Duration 06/14/22 Three Impairment weakness left UE and LE s/p CVA Health Care Manager Goal (LTG) Improve functional strength in left LE, as evidenced by ability to move from sit > < stand without use of UE's. 10/31/19: OT starts tomorrow. Good progress with sit to stand, though mostly using right UE and LE 01/02/20: Improving ability to perform, able to increase weight-bearing through left LE with cues, but still some use of right UE 05/26/20: With manual and visual feedback patient able to transfer sit to stand with only CG A. 08/28/20: inconsistent ability to move sit to stand without using UE's, but able to do transfer without physical assistance 11/24/20: Goal Met 01/27/21: more difficulty recently, having to use hands. Goal reactivated. 03/24/21: difficulty motor planning and performing sit to stand today. 06/25/21: patient becomes frustrated with sit to stand transfers as she expresses she feels she has a hard time remembering how to do it, has to use right UE 09/16/21 Pt completes sit to stand x 5 today without use of RUE from std height chair. LTG Duration goal met Two Impairment balance dysfunction with high risk for falls Fpc Goal (LTG) Improve balance as evidenced by improvement in Tinnetti balance and gait score to low fall risk range to improve safety in the home and community. 10/31/19: remains high risk for falls 01/02/20: some improvement but still in high risk category 05/26/20: Tinetti score in high risk category 08/28/20: moderate risk for falls 12/02/20: remains in moderate risk for falls. 01/27/21: moderate risk for falls 03/24/21: no significant change noted today but again having poor day. 06/25/21: Moderate risk for falls, though no reported falls over past few months. 09/16/21 No change 12/23/21: improved by 3 points 03/16/22: no further change this treatment period LTG Duration 06/14/22 One Impairment requires armaan-walker for gait, limited to household gait Health Care Manager Goal (LTG) Patient able to ambulate with least restrictive device for functional community distances to improve her functional independence and quality of life. 10/30/19: no progress due to Covid 19. 11/02/19: able to ambulate with quad cane but with very slow speed, household distances, very short community distances . 05/26/20: Now able to ambulate with use of single point cane and use of L4 theraband wrapped around left LE to facilitate left LE internal rotation for improved alignment. Patient unable to don the theraband on her own. Gait is for short distances and very slow at 39 ft in 2 min. 08/28/20: has demonstrated improved gait ability, still using theraband for derotation of LE for more neutral position. Able to consistenly use quad cane and is increasing stride length especially with cues. Now able to ascend and descend 4 stairs with min assist using railing. Mod assist on 6 stairs. 12/02/20: Patient ambulating with SPC, mostly household but some community distances, improved gait alignment with use of theraband for improved alignment. Patient not consistently able to ambulate community distances due to pain in her left LE, and lack of neurological control left LE. Patient may benefit from modification to her current AFO or fabrication of new AFO. 173 ft in 6 minutes 01/27/21: using SPC. Limitations due to left foot, knee and hip pain, right wrist pain 6 min walk test improved to 199.9 feet today 03/24/21: slower 6 min walk test today as above. Has had modification to her AFO with some improvement in her function, but had poor day today. 06/25/21: 180' on 6 min walk test, patient reports left knee feeling wonky, and right UE still painful due to surgery' having stitches out today. Also c/o lack of caregiver recently has limited her walking, no outings. Will try again next session. 09/16/21: Pt completes 6MWT without cane today/ Average gait speed 0.14 12/23/21: Adelaide is now able to ambulate indoors with no assistive device. Outdoors on level surfaces with no device with CGA, uneven surfaces requires cane and CG to mod assist. Continues to improve. 03/16/22: No improvement in speed, though patient continues to be able to ambulate without device most of the time in PT though doesn 't do at home due to fear. Improved confidence on compliant surface in clinic with ability to do without device. LTG Duration 06/14/22 Assessment Summary Assessment Adelaide demonstrated improved weight shift to left with gait today, and decreased UE support on stairs. Able to stop 3x while walking to weight shift, decrease left foot tone and then continue on with gait without device on level sursface. Did not feel up to doing floor transfer today. Has been increasing time at home weight-shifting without AFO as instructed. Physical Therapy Plan Frequency and Duration Frequency of Treatment 2x/Week Duration of treatment (weeks) 12 Plan of Care Start Date 03/16/22 Plan of Care End Date 06/14/22 Therapeutic Interventions Therapeutic Interventions Aquatic Therapy,Balance Training,Gait Training,Home Exercise Program,Neuromuscular Re-education,Orthotic/ Prosthetic Management,Patient/ Caregiver Education,Self-Care/ Home Management,Taping, Therapeutic Activities, Therapeutic Exercises Modalities Cold Pack/Ice Massage,Hot Packs Next Visit Focus/Plan Next Note Type Treatment Note Next Visit Plan Continue closed chain activities without AFO as tolerated and progress gait with AFO without devicefor alternatng clockwise and counterclockwise, improved functional speed, balance with least restrictive device. Floor transfers. Functional strengthening and flexibility exercises. Patient to bring in new boots for standing,weight ,shifting, possible gait without AFO.
--- NOTE | 2022-05-05 18:29 | PT.OTN ---
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 CVA caused weakness on the left side of her body, gait and balance difficulty, seizures. PT-OP-C Subjective Start: 05/28/19 08:11 Freq: Status: Active Protocol: Document 05/05/22 08:56 [facility] (Rec: 05/05/22 10:53 [facility] [id number]) OP-PT Subjective Patient Comments Patient Comments She has been mostly just working on walkinga t home. Pt brought boots that she wants to try PT-OP-D Balance Start: 05/28/19 08:11 Freq: Status: Active Protocol: Document 05/29/19 14:30 [facility] (Rec: 05/30/19 14:24 [facility] [id number]) OP-PT Balance Assessment Sitting Balance Static Sitting Balance Ability Good Dynamic Sitting Balance Ability Fair Standing Balance Static Standing Balance Ability Good Dynamic Standing Balance Ability Fair Device Used hemiwalker right Tinetti Balance Assessment Sitting Balance Sitting Balance Steady, safe Arising from Chair Attempts to Arise Able, requires >1 attempt Standing Balance Immediate Standing Balance Steady with support Standing Balance Steady, wide stance Nudged Response Begins to fall Standing with Eyes Closed Unsteady Turning Step Pattern Turning 360 Degrees Discontinuous steps Stability Turning 360 Degrees Unsteady, grabs/staggers Sitting Down Sitting Down Uses arms or unsteady Gait and Step Initiation of Gait Hesitancy, mult. attempts Right Foot Step Length Does not pass stance ft. Right Foot Step Height Does not clear floor Left Foot Step Length Does not pass stance foot Left Foot Step Height Does not clear floor Step Description Step Symmetry Step length not equal Gait Description Path Description Mild/moderate deviation Trunk Description Marked sway or uses aide Walking Stance Heels apart Scoring and Interpretation Tinetti Composite Score (points) 6 Interpretation of Scores High risk for falls(< 19) Herrera Fall Scale Copyright Permission PT-OP-E Functional Tests Start: 05/28/19 08:11 Freq: Status: Active Protocol: Document 05/14/21 10:50 [facility] (Rec: 05/14/21 11:08 [facility] [id number]) Functional Tests 6 Minute Walk Test Distance 169ft Device Used spc, TB wrapping Comments pt has headache today and feels that may have slowed her down. Timed Up and Go (TUG) Score 107 seconds PT-OP-G Mobility & Gait Start: 05/28/19 08:11 Freq: Status: Active Protocol: Document 05/26/20 11:15 [facility] (Rec: 05/26/20 17:04 [facility] [id number]) OP Mobility Evaluation Bed Mobility Rolling min assist to right CGA to left Supine to and from Sit min assist to right CGA to left Transfers Sit to Stand CGA to min assist without UE use Bed to Chair Transfers requires use of right UE but able to do with SBA Floor Transfers unable PT-OP-H Neuro Start: 05/28/19 08:11 Freq: Status: Active Protocol: Document 05/29/19 14:30 [facility] (Rec: 05/30/19 14:24 [facility] [id number]) Sensation Evaluation Gross Sensation Gross Sensation Left UE Impaired,Left LE Impaired Sensation Description Paresthesia,Numbness Coordination Evaluation Lower Extremity Tests Left Alternate Heel to Knee; Heel to Toe Test Moderate Impairment Heel on Boles Test Moderate Impairment Foot Tapping Test Moderate Impairment PT-OP-K Range of Motion Start: 05/28/19 08:11 Freq: Status: Active Protocol: Document 05/26/20 11:15 [facility] (Rec: 05/26/20 17:04 [facility] [id number]) Hip Goniometric Range of Motion Hip jake Hip ROM WFL Yes Comments actively right LE, passively left LE Knee Goniometric Range of Motion Knee jake Knee ROM WFL Yes Ankle and Foot Goniometric Range of Motion Ankle and Foot Left Passive Ankle/Foot ROM WFL No Left Active Ankle/Foot ROM WFL No PT-OP-M Strength Start: 05/28/19 08:11 Freq: Status: Active Protocol: Document 05/26/20 11:15 [facility] (Rec: 05/26/20 17:04 [facility] [id number]) Hip Strength Hip Manual Muscle Testing Left Flexion (L2) 3- Fair- Extension (S1) 2 Poor Abduction 2+ Poor+ External Rotation 3- Fair- Internal Rotation 3+ Fair+ Right Flexion (L2) 4 Good Extension (S1) 4- Good- Abduction 4 Good External Rotation 3+ Fair+ Internal Rotation 4- Good- PT-OP-Q Treatments Start: 05/28/19 08:11 Freq: Status: Active Protocol: Document 05/05/22 08:56 [facility] (Rec: 05/05/22 10:53 [facility] [id number]) Cardio Equipment Recumbent Stepper (Sci-Fit) Duration (Minutes) 8 Resistance 2 Seat Position 9 Other no AFO; cues for left LE alignment, 1.0mile Therapeutic Exercises Standing Exercises sit to stands Standing Exercise Name sit to stand Equipment Used mesh chair Reps/Minutes 5x Comments cues for leftward weight shift , no UE assist Gait Training Gait Activity wt acceptance Comments mirror for visual feedback- worked w/PT helping dec knee hyperext; PT helped pt get into better knee position and gave min A as pt wt shifted to maintain better knee positioning for better wt acceptance and pt went into SLS on LLE w/R rail x8 gait w/ AD no wrapping Device Used no AFO; SPC Distance/Duration 20ft forward/back steps Description fwd, bwd Device Used // PRN Level of Assistance no AD, CG Surface firm no AFO Distance/Duration 10 ft Treatment Focus increase weight bearing LLE Comments decreased LLE step length walking backward, required cues for step length and CGA. pre-gait weight shifts Description side to side, stride stance without AFO Device Used none Level of Assistance CG, verbal cues Surface firm Distance/Duration rail on R Treatment Focus increased weight bearing left LE (cued >50-75%) Comments mirror for visual feedback- worked w/PT helping dec knee hyperext; PT helped pt get into better knee position and gave min A as pt wt shifted to maintain better knee positioning for better wt acceptance x13 min 1 Description level surface Device Used AFO & cane Level of Assistance CGA, cues Surface indoor carpet, tile Distance/Duration 100ft Treatment Focus safety, improved mechanics; max cues for inc RLE step length Self-Care/Home Management Treatment Education Caregiver Education discussion w/pt and CG that boots pt brought (small wide heel, narrow, fashion boots, flexible) will not replace AFO for her. They will be unable to give her enough support. Discussed w/pt how AFO also helps w/knee position and will help with knee locking that happens when pt shifts onto that LE. PT-OP-R Modalities Start: 05/28/19 08:11 Freq: Status: Active Protocol: Document 12/29/20 10:30 [facility] (Rec: 12/29/20 11:44 [facility] [id number]) Electric Stimulation Electric Stimulation Functional Electric Stimulation Body Location L hand/ forearm extensors Duration (Minutes) 2 Patient Position Sitting Comments NMES- education on placement of pad for muscular feedback extension based- check self placement understanding. PT-OP-T Assessment and Plan Start: 05/28/19 08:11 Freq: Status: Active Protocol: Document 05/05/22 08:56 [facility] (Rec: 05/05/22 10:53 [facility] [id number]) Physical Therapy Assessment Goals Five Impairment gait speed not adequate for safe community ambulation Detention Goal (LTG) Patient able to ambulate 300' in 6 min. TUG score no greater than 30 sec 06/02/20: 134' 08/28/20: 144', likely not as high due to new shoes and wearing old AFO because fits better in new shoes. Requires level 4 theraband for derotation of left LE into more neutral position for gait . 09/19/20: 146 ft 6 min w/ QC and Tb wrapping to LLE. 11/13/20: 153 ft CG w/ SPC 2>3 pt gait w/out metronome w/ reported L glut/ lateral leg burn pain, 2 step brief stand breaks. 11/24/20: progressing 173.7 ft using SPC, predominently 2 pt gait. TUG score 59 sec using SP 01/27/21: TUG 55 sec. , 6 min walk test 199.9 ft with SPC 03/19/21: 6 min walk test 165' , TUG 1:20. Continue with use of theraband for derotation of excess ER left LE with gait . 04/16/21: 6MWT 190 ft w/ SPC and TB wrapping assist hip IR. 04/23/21: 6MWT 181 ftw/ SPC and TB wrapping 06/25/21: 6MWT 180 ft with SPC and TB wrapping. TU sec 09/16/21 - average gait speed 0 .14 m/s on 6MWT which pt completed with no AD (AFO only ). 12/23/21: most recent 6 min walk test 159 ft with no theraband derotation wrap and no assistive device LTG Duration 06/14/22 Four Impairment requires assistance with bed mobility and transfers Short Term Goal (STG) Patient will be able to perform all bed mobility independently to improve her functional independence. 10/31/19: good goal progress 06/02/20:inconsistent, but min assist most times 11/24/20: Met goal: pt is independent in supine>sit. STG Duration goal met Detention Goal (LTG) Patient will be able to perform a floor transfer with SB to min assist. 5x sit to stand score in no more than 15 sec as measure of functional strength for transfers 10/31/19: max assist today 01/02/20: has not been willing to try since 10/31/19 06/02/21: does not feel strong enough to try yet. 06/25/21: 08/28/20: max assistance required 12/02/20: remains at max assist , not recently willing to attempt floor transfer. 5x sit to stand score 26 seconds 01/27/21: not tried recently. 03/24/21: 5x sit to stand 25 sec. No floor transfer today 06/25/21: 5x sit to stand 24 sec. Patient didn't feel up to doing floor transfer, remains a concern 09/16/21: Pt willing to work on floor transfers but demonstrates a great deal of fear avoidance. 12/23/21: 5 Time Sit to Stand today in 30.4 seconds from standard height chair with no use of RUE LTG Duration 06/14/22 Three Impairment weakness left UE and LE s/p CVA Detention Goal (LTG) Improve functional strength in left LE, as evidenced by ability to move from sit > < stand without use of UE's. 10/31/19: OT starts tomorrow. Good progress with sit to stand, though mostly using right UE and LE 01/02/20: Improving ability to perform, able to increase weight-bearing through left LE with cues, but still some use of right UE 05/26/20: With manual and visual feedback patient able to transfer sit to stand with only CG A. 08/28/20: inconsistent ability to move sit to stand without using UE's, but able to do transfer without physical assistance 11/24/20: Goal Met 01/27/21: more difficulty recently, having to use hands. Goal reactivated. 03/24/21: difficulty motor planning and performing sit to stand today. 06/25/21: patient becomes frustrated with sit to stand transfers as she expresses she feels she has a hard time remembering how to do it, has to use right UE 09/16/21 Pt completes sit to stand x 5 today without use of RUE from std height chair. LTG Duration goal met Two Impairment balance dysfunction with high risk for falls Detention Goal (LTG) Improve balance as evidenced by improvement in Tinnetti balance and gait score to low fall risk range to improve safety in the home and community. 10/31/19: remains high risk for falls 01/02/20: some improvement but still in high risk category 05/26/20: Tinetti score in high risk category 08/28/20: moderate risk for falls 12/02/20: remains in moderate risk for falls. 01/27/21: moderate risk for falls 03/24/21: no significant change noted today but again having poor day. 06/25/21: Moderate risk for falls, though no reported falls over past few months. 09/16/21 No change 12/23/21: improved by 3 points 03/16/22: no further change this treatment period LTG Duration 06/14/22 One Impairment requires armaan-walker for gait, limited to household gait Detention Goal (LTG) Patient able to ambulate with least restrictive device for functional community distances to improve her functional independence and quality of life. 10/30/19: no progress due to Covid 19. 11/02/19: able to ambulate with quad cane but with very slow speed, household distances, very short community distances . 05/26/20: Now able to ambulate with use of single point cane and use of L4 theraband wrapped around left LE to facilitate left LE internal rotation for improved alignment. Patient unable to don the theraband on her own. Gait is for short distances and very slow at 39 ft in 2 min. 08/28/20: has demonstrated improved gait ability, still using theraband for derotation of LE for more neutral position. Able to consistenly use quad cane and is increasing stride length especially with cues. Now able to ascend and descend 4 stairs with min assist using railing. Mod assist on 6 stairs. 12/02/20: Patient ambulating with SPC, mostly household but some community distances, improved gait alignment with use of theraband for improved alignment. Patient not consistently able to ambulate community distances due to pain in her left LE, and lack of neurological control left LE. Patient may benefit from modification to her current AFO or fabrication of new AFO. 173 ft in 6 minutes 01/27/21: using SPC. Limitations due to left foot, knee and hip pain, right wrist pain 6 min walk test improved to 199.9 feet today 03/24/21: slower 6 min walk test today as above. Has had modification to her AFO with some improvement in her function, but had poor day today. 06/25/21: 180' on 6 min walk test, patient reports left knee feeling wonky, and right UE still painful due to surgery' having stitches out today. Also c/o lack of caregiver recently has limited her walking, no outings. Will try again next session. 09/16/21: Pt completes 6MWT without cane today/ Average gait speed 0.14 12/23/21: [place] is now able to ambulate indoors with no assistive device. Outdoors on level surfaces with no device with CGA, uneven surfaces requires cane and CG to mod assist. Continues to improve. 03/16/22: No improvement in speed, though patient continues to be able to ambulate without device most of the time in PT though doesn 't do at home due to fear. Improved confidence on compliant surface in clinic with ability to do without device. LTG Duration 06/14/22 Assessment Summary Assessment Pt continues to struggle w/wt shifting onto LLE and requires use of mirror, cues and PT support to knee and occ ankle for imrpoved wt shift to LLE as she is reluctant to wt shift. She dos note soem L foot pain which may contribute to her dec wt shift. Physical Therapy Plan Frequency and Duration Frequency of Treatment 2x/Week Duration of treatment (weeks) 12 Plan of Care Start Date 03/16/22 Plan of Care End Date 06/14/22 Next Visit Focus/Plan Next Note Type Treatment Note Next Visit Plan Continue closed chain activities without AFO as tolerated and progress gait with AFO without devicefor alternatng clockwise and counterclockwise, improved functional speed, balance with least restrictive device. Floor transfers. Functional strengthening and flexibility exercises. Work on DF strength and give pt HEP for this as her goal is to be more indep w /DF-train CG w/exercises. Consider manual to L ankle to help dec pain w/wt acceptance & improve functional position of L foot.
--- NOTE | 2022-05-12 11:25 | PT.OTN ---
Current Diagnoses Difficulty in walking, not elsewhere classified (05/12/22) Weakness (05/12/22) History of falling (05/12/22) Physical Therapy Treatment Note PT-OP-A Visit Information Start: 05/28/19 08:11 Freq: Status: Active Protocol: Document 05/12/22 10:33 AW (Rec: 05/12/22 11:25 AW [id number]) Out-Patient Physical Therapy Visit Information Visit Information Visit Type Treatment Note Visit Start Time 10:33 Visit Stop Time 11:15 Total Visit Minutes 42 Visit Number 180 Number of CMO Visits 0 PT-OP-B Current Condition Start: 05/28/19 08:11 Freq: Status: Active Protocol: Document 06/04/20 11:15 SAK (Rec: 06/05/20 16:34 SAK [id number]) Current Condition History of Current Condition Onset Date 2014 Current Complaints weakness, requires assistance with all mobility and household tasks History of Current Condition Reports that she suffered a stroke in 2014 after surgery for brain aneurysm. CVA caused weakness on the left side of her body, gait and balance difficulty, seizures. PT-OP-C Subjective Start: 05/28/19 08:11 Freq: Status: Active Protocol: Document 05/12/22 10:33 AW (Rec: 05/12/22 11:25 AW [id number]) OP-PT Subjective Patient Comments Patient Comments Adelaide has a new caregiver with regular hours PT-OP-D Balance Start: 05/28/19 08:11 Freq: Status: Active Protocol: Document 05/29/19 14:30 SAK (Rec: 05/30/19 14:24 SAK [id number]) OP-PT Balance Assessment Sitting Balance Static Sitting Balance Ability Good Dynamic Sitting Balance Ability Fair Standing Balance Static Standing Balance Ability Good Dynamic Standing Balance Ability Fair Device Used [facility] right Tinetti Balance Assessment Sitting Balance Sitting Balance Steady, safe Arising from Chair Attempts to Arise Able, requires >1 attempt Standing Balance Immediate Standing Balance Steady with support Standing Balance Steady, wide stance Nudged Response Begins to fall Standing with Eyes Closed Unsteady Turning Step Pattern Turning 360 Degrees Discontinuous steps Stability Turning 360 Degrees Unsteady, grabs/staggers Sitting Down Sitting Down Uses arms or unsteady Gait and Step Initiation of Gait Hesitancy, mult. attempts Right Foot Step Length Does not pass stance ft. Right Foot Step Height Does not clear floor Left Foot Step Length Does not pass stance foot Left Foot Step Height Does not clear floor Step Description Step Symmetry Step length not equal Gait Description Path Description Mild/moderate deviation Trunk Description Marked sway or uses aide Walking Stance Heels apart Scoring and Interpretation Tinetti Composite Score (points) 6 Interpretation of Scores High risk for falls(< 19) Herrera Fall Scale Copyright Permission PT-OP-E Functional Tests Start: 05/28/19 08:11 Freq: Status: Active Protocol: Document 05/14/21 10:50 AMH (Rec: 05/14/21 11:08 AMH [id number]) Functional Tests 6 Minute Walk Test Distance 169ft Device Used spc, TB wrapping Comments pt has headache today and feels that may have slowed her down. Timed Up and Go (TUG) Score 107 seconds PT-OP-G Mobility & Gait Start: 05/28/19 08:11 Freq: Status: Active Protocol: Document 05/26/20 11:15 SAK (Rec: 05/26/20 17:04 SAK [id number]) OP Mobility Evaluation Bed Mobility Rolling min assist to right CGA to left Supine to and from Sit min assist to right CGA to left Transfers Sit to Stand CGA to min assist without UE use Bed to Chair Transfers requires use of right UE but able to do with SBA Floor Transfers unable PT-OP-H Neuro Start: 05/28/19 08:11 Freq: Status: Active Protocol: Document 05/29/19 14:30 SAK (Rec: 05/30/19 14:24 SAK [id number]) Sensation Evaluation Gross Sensation Gross Sensation Left UE Impaired,Left LE Impaired Sensation Description Paresthesia,Numbness Coordination Evaluation Lower Extremity Tests Left Alternate Heel to Knee; Heel to Toe Test Moderate Impairment Heel on Boles Test Moderate Impairment Foot Tapping Test Moderate Impairment PT-OP-K Range of Motion Start: 05/28/19 08:11 Freq: Status: Active Protocol: Document 05/26/20 11:15 SAK (Rec: 05/26/20 17:04 SAK [id number]) Hip Goniometric Range of Motion Hip jake Hip ROM WFL Yes Comments actively right LE, passively left LE Knee Goniometric Range of Motion Knee jake Knee ROM WFL Yes Ankle and Foot Goniometric Range of Motion Ankle and Foot Left Passive Ankle/Foot ROM WFL No Left Active Ankle/Foot ROM WFL No PT-OP-M Strength Start: 05/28/19 08:11 Freq: Status: Active Protocol: Document 05/26/20 11:15 SAK (Rec: 05/26/20 17:04 SAK [id number]) Hip Strength Hip Manual Muscle Testing Left Flexion (L2) 3- Fair- Extension (S1) 2 Poor Abduction 2+ Poor+ External Rotation 3- Fair- Internal Rotation 3+ Fair+ Right Flexion (L2) 4 Good Extension (S1) 4- Good- Abduction 4 Good External Rotation 3+ Fair+ Internal Rotation 4- Good- PT-OP-Q Treatments Start: 05/28/19 08:11 Freq: Status: Active Protocol: Document 05/12/22 10:33 AW (Rec: 05/12/22 11:25 AW [id number]) Therapeutic Exercises Sitting Exercises HC stretch Side left Resistance AAROM Equipment Used manual Reps/Minutes 30 x 2 Comments Instruction of caregiver Luke Standing Exercises sit to stands Standing Exercise Name sit to stand without AFO Equipment Used black tx table, mesh chair Reps/Minutes 3x10 Comments cues for leftward weight shift , no UE assist Gait Training Gait Activity curb simulation Description ascend/descend Device Used right rail, AFO Level of Assistance SBA/CGA Surface 6 step, blue foam, yoga mat over step/under step Distance/Duration 6x Treatment Focus increase stability curb mgt Comments cued quad facilitation L knee stance LE during RLE advancement to ascend, and decreased UE support Added rocker board to beginning of mat for increased challenge 1 Description level surface Device Used AFO, no cane Level of Assistance CGA, cues Surface indoor carpet, tile Distance/Duration 120ft x 2 Treatment Focus safety, improved mechanics; max cues for inc RLE step length PT-OP-R Modalities Start: 05/28/19 08:11 Freq: Status: Active Protocol: Document 12/29/20 10:30 SP (Rec: 12/29/20 11:44 SP [id number]) Electric Stimulation Electric Stimulation Functional Electric Stimulation Body Location L hand/ forearm extensors Duration (Minutes) 2 Patient Position Sitting Comments NMES- education on placement of pad for muscular feedback extension based- check self placement understanding. PT-OP-T Assessment and Plan Start: 05/28/19 08:11 Freq: Status: Active Protocol: Document 05/12/22 10:33 AW (Rec: 05/12/22 11:25 AW [id number]) Physical Therapy Assessment Goals Five Impairment gait speed not adequate for safe community ambulation Senior Care Goal (LTG) Patient able to ambulate 300' in 6 min. TUG score no greater than 30 sec 06/02/20: 134' 08/28/20: 144', likely not as high due to new shoes and wearing old AFO because fits better in new shoes. Requires level 4 theraband for derotation of left LE into more neutral position for gait . 09/19/20: 146 ft 6 min w/ QC and Tb wrapping to LLE. 11/13/20: 153 ft CG w/ SPC 2>3 pt gait w/out metronome w/ reported L glut/ lateral leg burn pain, 2 step brief stand breaks. 11/24/20: progressing 173.7 ft using SPC, predominently 2 pt gait. TUG score 59 sec using SP 01/27/21: TUG 55 sec. , 6 min walk test 199.9 ft with SPC 03/19/21: 6 min walk test 165' , TUG 1:20. Continue with use of theraband for derotation of excess ER left LE with gait . 04/16/21: 6MWT 190 ft w/ SPC and TB wrapping assist hip IR. 04/23/21: 6MWT 181 ftw/ SPC and TB wrapping 06/25/21: 6MWT 180 ft with SPC and TB wrapping. TU sec 09/16/21 - average gait speed 0 .14 m/s on 6MWT which pt completed with no AD (AFO only ). 12/23/21: most recent 6 min walk test 159 ft with no theraband derotation wrap and no assistive device LTG Duration 06/14/22 Four Impairment requires assistance with bed mobility and transfers Short Term Goal (STG) Patient will be able to perform all bed mobility independently to improve her functional independence. 10/31/19: good goal progress 06/02/20:inconsistent, but min assist most times 11/24/20: Met goal: pt is independent in supine>sit. STG Duration goal met Senior Care Goal (LTG) Patient will be able to perform a floor transfer with SB to min assist. 5x sit to stand score in no more than 15 sec as measure of functional strength for transfers 10/31/19: max assist today 01/02/20: has not been willing to try since 10/31/19 06/02/21: does not feel strong enough to try yet. 06/25/21: 08/28/20: max assistance required 12/02/20: remains at max assist , not recently willing to attempt floor transfer. 5x sit to stand score 26 seconds 01/27/21: not tried recently. 03/24/21: 5x sit to stand 25 sec. No floor transfer today 06/25/21: 5x sit to stand 24 sec. Patient didn't feel up to doing floor transfer, remains a concern 09/16/21: Pt willing to work on floor transfers but demonstrates a great deal of fear avoidance. 12/23/21: 5 Time Sit to Stand today in 30.4 seconds from standard height chair with no use of RUE LTG Duration 06/14/22 Three Impairment weakness left UE and LE s/p CVA Senior Care Goal (LTG) Improve functional strength in left LE, as evidenced by ability to move from sit > < stand without use of UE's. 10/31/19: OT starts tomorrow. Good progress with sit to stand, though mostly using right UE and LE 01/02/20: Improving ability to perform, able to increase weight-bearing through left LE with cues, but still some use of right UE 05/26/20: With manual and visual feedback patient able to transfer sit to stand with only CG A. 08/28/20: inconsistent ability to move sit to stand without using UE's, but able to do transfer without physical assistance 11/24/20: Goal Met 01/27/21: more difficulty recently, having to use hands. Goal reactivated. 03/24/21: difficulty motor planning and performing sit to stand today. 06/25/21: patient becomes frustrated with sit to stand transfers as she expresses she feels she has a hard time remembering how to do it, has to use right UE 09/16/21 Pt completes sit to stand x 5 today without use of RUE from std height chair. LTG Duration goal met Two Impairment balance dysfunction with high risk for falls Legal Secretary Receptionist Goal (LTG) Improve balance as evidenced by improvement in Tinnetti balance and gait score to low fall risk range to improve safety in the home and community. 10/31/19: remains high risk for falls 01/02/20: some improvement but still in high risk category 05/26/20: Tinetti score in high risk category 08/28/20: moderate risk for falls 12/02/20: remains in moderate risk for falls. 01/27/21: moderate risk for falls 03/24/21: no significant change noted today but again having poor day. 06/25/21: Moderate risk for falls, though no reported falls over past few months. 09/16/21 No change 12/23/21: improved by 3 points 03/16/22: no further change this treatment period LTG Duration 06/14/22 One Impairment requires armaan-walker for gait, limited to household gait Senior Care Goal (LTG) Patient able to ambulate with least restrictive device for functional community distances to improve her functional independence and quality of life. 10/30/19: no progress due to Covid 19. 11/02/19: able to ambulate with quad cane but with very slow speed, household distances, very short community distances . 05/26/20: Now able to ambulate with use of single point cane and use of L4 theraband wrapped around left LE to facilitate left LE internal rotation for improved alignment. Patient unable to don the theraband on her own. Gait is for short distances and very slow at 39 ft in 2 min. 08/28/20: has demonstrated improved gait ability, still using theraband for derotation of LE for more neutral position. Able to consistenly use quad cane and is increasing stride length especially with cues. Now able to ascend and descend 4 stairs with min assist using railing. Mod assist on 6 stairs. 12/02/20: Patient ambulating with SPC, mostly household but some community distances, improved gait alignment with use of theraband for improved alignment. Patient not consistently able to ambulate community distances due to pain in her left LE, and lack of neurological control left LE. Patient may benefit from modification to her current AFO or fabrication of new AFO. 173 ft in 6 minutes 01/27/21: using SPC. Limitations due to left foot, knee and hip pain, right wrist pain 6 min walk test improved to 199.9 feet today 03/24/21: slower 6 min walk test today as above. Has had modification to her AFO with some improvement in her function, but had poor day today. 06/25/21: 180' on 6 min walk test, patient reports left knee feeling wonky, and right UE still painful due to surgery' having stitches out today. Also c/o lack of caregiver recently has limited her walking, no outings. Will try again next session. 09/16/21: Pt completes 6MWT without cane today/ Average gait speed 0.14 12/23/21: Adelaide is now able to ambulate indoors with no assistive device. Outdoors on level surfaces with no device with CGA, uneven surfaces requires cane and CG to mod assist. Continues to improve. 03/16/22: No improvement in speed, though patient continues to be able to ambulate without device most of the time in PT though doesn 't do at home due to fear. Improved confidence on compliant surface in clinic with ability to do without device. LTG Duration 06/14/22 Assessment Summary Assessment Adelaide continues to increase time without AFO at home for functional strengthening. In clinic today, she was able to complete sit to stand 10 reps x 3 without AFO and fair control of left knee. Physical Therapy Plan Frequency and Duration Frequency of Treatment 2x/Week Duration of treatment (weeks) 12 Plan of Care Start Date 03/16/22 Plan of Care End Date 06/14/22 Therapeutic Interventions Therapeutic Interventions Aquatic Therapy,Balance Training,Gait Training,Home Exercise Program,Neuromuscular Re-education,Orthotic/ Prosthetic Management,Patient/ Caregiver Education,Self-Care/ Home Management,Taping, Therapeutic Activities, Therapeutic Exercises Modalities Cold Pack/Ice Massage,Hot Packs Next Visit Focus/Plan Next Note Type Treatment Note Next Visit Plan Continue closed chain activities without AFO as tolerated and progress gait with AFO without devicefor alternatng clockwise and counterclockwise, improved functional speed, balance with least restrictive device. Floor transfers. Functional strengthening and flexibility exercises. Work on DF strength and give pt HEP for this as her goal is to be more indep w /DF-train CG w/exercises. Consider manual to L ankle to help dec pain w/wt acceptance & improve functional position of L foot.
--- NOTE | 2022-05-18 11:47 | PT.OTN ---
Current Diagnoses Difficulty in walking, not elsewhere classified (05/18/22) Weakness (05/18/22) History of falling (05/18/22) Physical Therapy Treatment Note PT-OP-A Visit Information Start: 05/28/19 08:11 Freq: Status: Active Protocol: Document 05/18/22 10:30 SAK (Rec: 05/18/22 11:46 [facility] [id number]) Out-Patient Physical Therapy Visit Information Visit Information Visit Type Treatment Note Visit Start Time 10:35 Visit Stop Time 11:20 Total Visit Minutes 45 Visit Number [id number] PT-OP-B Current Condition Start: 05/28/19 08:11 Freq: Status: Active Protocol: Document 06/04/20 11:15 SAK (Rec: 06/05/20 16:34 [facility] [id number]) Current Condition History of Current Condition Onset Date 2014 Current Complaints weakness, requires assistance with all mobility and household tasks History of Current Condition Reports that she suffered a stroke in 2014 after surgery for brain aneurysm. CVA caused weakness on the left side of her body, gait and balance difficulty, seizures. PT-OP-C Subjective Start: 05/28/19 08:11 Freq: Status: Active Protocol: Document 05/18/22 10:30 SAK (Rec: 05/18/22 11:46 [facility] [id number]) OP-PT Subjective Patient Comments Patient Comments Sick over weekend, 2 days in bed. Had shingles shot and saw Dr Valdez on Tuesday. Not sure how much she'll be able to do today, feeling weak. PT-OP-D Balance Start: 05/28/19 08:11 Freq: Status: Active Protocol: Document 05/29/19 14:30 [facility] (Rec: 05/30/19 14:24 [facility] [id number]) OP-PT Balance Assessment Sitting Balance Static Sitting Balance Ability Good Dynamic Sitting Balance Ability Fair Standing Balance Static Standing Balance Ability Good Dynamic Standing Balance Ability Fair Device Used hemiwalker right Tinetti Balance Assessment Sitting Balance Sitting Balance Steady, safe Arising from Chair Attempts to Arise Able, requires >1 attempt Standing Balance Immediate Standing Balance Steady with support Standing Balance Steady, wide stance Nudged Response Begins to fall Standing with Eyes Closed Unsteady Turning Step Pattern Turning 360 Degrees Discontinuous steps Stability Turning 360 Degrees Unsteady, grabs/staggers Sitting Down Sitting Down Uses arms or unsteady Gait and Step Initiation of Gait Hesitancy, mult. attempts Right Foot Step Length Does not pass stance ft. Right Foot Step Height Does not clear floor Left Foot Step Length Does not pass stance foot Left Foot Step Height Does not clear floor Step Description Step Symmetry Step length not equal Gait Description Path Description Mild/moderate deviation Trunk Description Marked sway or uses aide Walking Stance Heels apart Scoring and Interpretation Tinetti Composite Score (points) 6 Interpretation of Scores High risk for falls(< 19) Herrera Fall Scale Copyright Permission PT-OP-E Functional Tests Start: 05/28/19 08:11 Freq: Status: Active Protocol: Document 05/14/21 10:50 [facility] (Rec: 05/14/21 11:08 [facility] [id number]) Functional Tests 6 Minute Walk Test Distance 169ft Device Used spc, TB wrapping Comments pt has headache today and feels that may have slowed her down. Timed Up and Go (TUG) Score 107 seconds PT-OP-G Mobility & Gait Start: 05/28/19 08:11 Freq: Status: Active Protocol: Document 05/26/20 11:15 SAK (Rec: 05/26/20 17:04 [facility] [id number]) OP Mobility Evaluation Bed Mobility Rolling min assist to right CGA to left Supine to and from Sit min assist to right CGA to left Transfers Sit to Stand CGA to min assist without UE use Bed to Chair Transfers requires use of right UE but able to do with SBA Floor Transfers unable PT-OP-H Neuro Start: 05/28/19 08:11 Freq: Status: Active Protocol: Document 05/29/19 14:30 SAK (Rec: 05/30/19 14:24 [facility] [id number]) Sensation Evaluation Gross Sensation Gross Sensation Left UE Impaired,Left LE Impaired Sensation Description Paresthesia,Numbness Coordination Evaluation Lower Extremity Tests Left Alternate Heel to Knee; Heel to Toe Test Moderate Impairment Heel on Boles Test Moderate Impairment Foot Tapping Test Moderate Impairment PT-OP-K Range of Motion Start: 05/28/19 08:11 Freq: Status: Active Protocol: Document 05/26/20 11:15 SAK (Rec: 05/26/20 17:04 [facility] [id number]) Hip Goniometric Range of Motion Hip jake Hip ROM WFL Yes Comments actively right LE, passively left LE Knee Goniometric Range of Motion Knee jake Knee ROM WFL Yes Ankle and Foot Goniometric Range of Motion Ankle and Foot Left Passive Ankle/Foot ROM WFL No Left Active Ankle/Foot ROM WFL No PT-OP-M Strength Start: 05/28/19 08:11 Freq: Status: Active Protocol: Document 05/26/20 11:15 SAK (Rec: 05/26/20 17:04 SAK [id number]) Hip Strength Hip Manual Muscle Testing Left Flexion (L2) 3- Fair- Extension (S1) 2 Poor Abduction 2+ Poor+ External Rotation 3- Fair- Internal Rotation 3+ Fair+ Right Flexion (L2) 4 Good Extension (S1) 4- Good- Abduction 4 Good External Rotation 3+ Fair+ Internal Rotation 4- Good- PT-OP-Q Treatments Start: 05/28/19 08:11 Freq: Status: Active Protocol: Document 05/18/22 10:30 SAK (Rec: 05/18/22 11:46 SAK [id number]) Cardio Equipment Recumbent Stepper (Sci-Fit) Duration (Minutes) 10 Resistance 2 Seat Position 9 Other no AFO; cues for left LE alignment, 1.0mile Therapeutic Exercises Supine Exercises ITband stretch Reps/Minutes 2x30 Comments manual, ed of caregiver gastroc stretch Supine Exercise Name manual stretch calf Side left Comments instructed caregiver Radha hamstring stretch Side left Reps/Minutes 2x30s Comments instructed caregiver Radha Sitting Exercises HC stretch Side left Resistance AAROM Equipment Used manual Reps/Minutes 30 x 2 Comments instructed caregiver Radha Standing Exercises sit to stands Standing Exercise Name sit to stand without AFO Equipment Used black tx table, mesh chair Reps/Minutes 3x10 Comments cues for leftward weight shift , no UE assist Gait Training Gait Activity gait w/ AD no wrapping Device Used AFO, cane Distance/Duration 60ft Treatment Focus safety, inc wt shift 1 Description level surface Device Used AFO, no cane Level of Assistance CGA, cues Surface indoor carpet Distance/Duration 40ft Treatment Focus safety, improved mechanics; max cues for inc RLE step length PT-OP-R Modalities Start: 05/28/19 08:11 Freq: Status: Active Protocol: Document 12/29/20 10:30 SP (Rec: 12/29/20 11:44 SP [id number]) Electric Stimulation Electric Stimulation Functional Electric Stimulation Body Location L hand/ forearm extensors Duration (Minutes) 2 Patient Position Sitting Comments NMES- education on placement of pad for muscular feedback extension based- check self placement understanding. PT-OP-T Assessment and Plan Start: 05/28/19 08:11 Freq: Status: Active Protocol: Document 05/18/22 10:30 KRYSTAL (Rec: 05/18/22 11:46 [facility] [id number]) Physical Therapy Assessment Goals Five Impairment gait speed not adequate for safe community ambulation Prison Goal (LTG) Patient able to ambulate 300' in 6 min. TUG score no greater than 30 sec 06/02/20: 134' 08/28/20: 144', likely not as high due to new shoes and wearing old AFO because fits better in new shoes. Requires level 4 theraband for derotation of left LE into more neutral position for gait . 09/19/20: 146 ft 6 min w/ QC and Tb wrapping to LLE. 11/13/20: 153 ft CG w/ SPC 2>3 pt gait w/out metronome w/ reported L glut/ lateral leg burn pain, 2 step brief stand breaks. 11/24/20: progressing 173.7 ft using SPC, predominently 2 pt gait. TUG score 59 sec using SP 01/27/21: TUG 55 sec. , 6 min walk test 199.9 ft with SPC 03/19/21: 6 min walk test 165' , TUG 1:20. Continue with use of theraband for derotation of excess ER left LE with gait . 04/16/21: 6MWT 190 ft w/ SPC and TB wrapping assist hip IR. 04/23/21: 6MWT 181 ftw/ SPC and TB wrapping 06/25/21: 6MWT 180 ft with SPC and TB wrapping. TU sec 09/16/21 - average gait speed 0 .14 m/s on 6MWT which pt completed with no AD (AFO only ). 12/23/21: most recent 6 min walk test 159 ft with no theraband derotation wrap and no assistive device LTG Duration 06/14/22 Four Impairment requires assistance with bed mobility and transfers Short Term Goal (STG) Patient will be able to perform all bed mobility independently to improve her functional independence. 10/31/19: good goal progress 06/02/20:inconsistent, but min assist most times 11/24/20: Met goal: pt is independent in supine>sit. STG Duration goal met Prison Goal (LTG) Patient will be able to perform a floor transfer with SB to min assist. 5x sit to stand score in no more than 15 sec as measure of functional strength for transfers 10/31/19: max assist today 01/02/20: has not been willing to try since 10/31/19 06/02/21: does not feel strong enough to try yet. 06/25/21: 08/28/20: max assistance required 12/02/20: remains at max assist , not recently willing to attempt floor transfer. 5x sit to stand score 26 seconds 01/27/21: not tried recently. 03/24/21: 5x sit to stand 25 sec. No floor transfer today 06/25/21: 5x sit to stand 24 sec. Patient didn't feel up to doing floor transfer, remains a concern 09/16/21: Pt willing to work on floor transfers but demonstrates a great deal of fear avoidance. 12/23/21: 5 Time Sit to Stand today in 30.4 seconds from standard height chair with no use of RUE LTG Duration 06/14/22 Three Impairment weakness left UE and LE s/p CVA [employer] Goal (LTG) Improve functional strength in left LE, as evidenced by ability to move from sit > < stand without use of UE's. 10/31/19: OT starts tomorrow. Good progress with sit to stand, though mostly using right UE and LE 01/02/20: Improving ability to perform, able to increase weight-bearing through left LE with cues, but still some use of right UE 05/26/20: With manual and visual feedback patient able to transfer sit to stand with only CG A. 08/28/20: inconsistent ability to move sit to stand without using UE's, but able to do transfer without physical assistance 11/24/20: Goal Met 01/27/21: more difficulty recently, having to use hands. Goal reactivated. 03/24/21: difficulty motor planning and performing sit to stand today. 06/25/21: patient becomes frustrated with sit to stand transfers as she expresses she feels she has a hard time remembering how to do it, has to use right UE 09/16/21 Pt completes sit to stand x 5 today without use of RUE from std height chair. LTG Duration goal met Two Impairment balance dysfunction with high risk for falls [employer] Goal (LTG) Improve balance as evidenced by improvement in Tinnetti balance and gait score to low fall risk range to improve safety in the home and community. 10/31/19: remains high risk for falls 01/02/20: some improvement but still in high risk category 05/26/20: Tinetti score in high risk category 08/28/20: moderate risk for falls 12/02/20: remains in moderate risk for falls. 01/27/21: moderate risk for falls 03/24/21: no significant change noted today but again having poor day. 06/25/21: Moderate risk for falls, though no reported falls over past few months. 09/16/21 No change 12/23/21: improved by 3 points 03/16/22: no further change this treatment period LTG Duration 06/14/22 One Impairment requires armaan-walker for gait, limited to household gait [employer] Goal (LTG) Patient able to ambulate with least restrictive device for functional community distances to improve her functional independence and quality of life. 10/30/19: no progress due to Covid 19. 11/02/19: able to ambulate with quad cane but with very slow speed, household distances, very short community distances . 05/26/20: Now able to ambulate with use of single point cane and use of L4 theraband wrapped around left LE to facilitate left LE internal rotation for improved alignment. Patient unable to don the theraband on her own. Gait is for short distances and very slow at 39 ft in 2 min. 08/28/20: has demonstrated improved gait ability, still using theraband for derotation of LE for more neutral position. Able to consistenly use quad cane and is increasing stride length especially with cues. Now able to ascend and descend 4 stairs with min assist using railing. Mod assist on 6 stairs. 12/02/20: Patient ambulating with SPC, mostly household but some community distances, improved gait alignment with use of theraband for improved alignment. Patient not consistently able to ambulate community distances due to pain in her left LE, and lack of neurological control left LE. Patient may benefit from modification to her current AFO or fabrication of new AFO. 173 ft in 6 minutes 01/27/21: using SPC. Limitations due to left foot, knee and hip pain, right wrist pain 6 min walk test improved to 199.9 feet today 03/24/21: slower 6 min walk test today as above. Has had modification to her AFO with some improvement in her function, but had poor day today. 06/25/21: 180' on 6 min walk test, patient reports left knee feeling wonky, and right UE still painful due to surgery' having stitches out today. Also c/o lack of caregiver recently has limited her walking, no outings. Will try again next session. 09/16/21: Pt completes 6MWT without cane today/ Average gait speed 0.14 12/23/21: Adelaide is now able to ambulate indoors with no assistive device. Outdoors on level surfaces with no device with CGA, uneven surfaces requires cane and CG to mod assist. Continues to improve. 03/16/22: No improvement in speed, though patient continues to be able to ambulate without device most of the time in PT though doesn 't do at home due to fear. Improved confidence on compliant surface in clinic with ability to do without device. LTG Duration 06/14/22 Assessment Summary Assessment Decreased activity and exercise tolerance due to pt. having GI illness over weekend . Feeling fatigued and weak. Instructed new caregiver on calf stretching, she was receptive, demonstrated good understanding but will need further review. Physical Therapy Plan Frequency and Duration Frequency of Treatment 2x/Week Duration of treatment (weeks) 12 Plan of Care Start Date 03/16/22 Plan of Care End Date 06/14/22 Therapeutic Interventions Therapeutic Interventions Aquatic Therapy,Balance Training,Gait Training,Home Exercise Program,Neuromuscular Re-education,Orthotic/ Prosthetic Management,Patient/ Caregiver Education,Self-Care/ Home Management,Taping, Therapeutic Activities, Therapeutic Exercises Modalities Cold Pack/Ice Massage,Hot Packs Next Visit Focus/Plan Next Note Type Treatment Note Next Visit Plan Continue closed chain activities without AFO as tolerated and progress gait with AFO without devicefor alternatng clockwise and counterclockwise, improved functional speed, balance with least restrictive device. Floor transfers. Functional strengthening and flexibility exercises. Work on DF strength and give pt HEP for this as her goal is to be more indep w /DF-train CG w/exercises. Consider manual to L ankle to help dec pain w/wt acceptance & improve functional position of L foot.
--- NOTE | 2022-05-20 12:26 | PT.OTN ---
Current Diagnoses Difficulty in walking, not elsewhere classified (05/20/22) Weakness (05/20/22) History of falling (05/20/22) Physical Therapy Treatment Note PT-OP-A Visit Information Start: 05/28/19 08:11 Freq: Status: Active Protocol: Document 05/20/22 11:21 [facility] (Rec: 05/20/22 12:26 [facility] [id number]) Out-Patient Physical Therapy Visit Information Visit Information Visit Type Treatment Note Visit Start Time 11:20 Visit Stop Time 12:00 Total Visit Minutes 40 Visit Number 182 PT-OP-B Current Condition Start: 05/28/19 08:11 Freq: Status: Active Protocol: Document 06/04/20 11:15 [facility] (Rec: 06/05/20 16:34 [facility] [id number]) Current Condition History of Current Condition Onset Date 2014 Current Complaints weakness, requires assistance with all mobility and household tasks History of Current Condition Reports that she suffered a stroke in 2014 after surgery for brain aneurysm. CVA caused weakness on the left side of her body, gait and balance difficulty, seizures. PT-OP-C Subjective Start: 05/28/19 08:11 Freq: Status: Active Protocol: Document 05/20/22 11:21 [facility] (Rec: 05/20/22 12:26 [facility] [id number]) OP-PT Subjective Patient Comments Patient Comments Leg feeling tight again today. Had OT yesterday, pecs a big sore. PT-OP-D Balance Start: 05/28/19 08:11 Freq: Status: Active Protocol: Document 05/29/19 14:30 [facility] (Rec: 05/30/19 14:24 [facility] [id number]) OP-PT Balance Assessment Sitting Balance Static Sitting Balance Ability Good Dynamic Sitting Balance Ability Fair Standing Balance Static Standing Balance Ability Good Dynamic Standing Balance Ability Fair Device [facility] right Tinetti Balance Assessment Sitting Balance Sitting Balance Steady, safe Arising from Chair Attempts to Arise Able, requires >1 attempt Standing Balance Immediate Standing Balance Steady with support Standing Balance Steady, wide stance Nudged Response Begins to fall Standing with Eyes Closed Unsteady Turning Step Pattern Turning 360 Degrees Discontinuous steps Stability Turning 360 Degrees Unsteady, grabs/staggers Sitting Down Sitting Down Uses arms or unsteady Gait and Step Initiation of Gait Hesitancy, mult. attempts Right Foot Step Length Does not pass stance ft. Right Foot Step Height Does not clear floor Left Foot Step Length Does not pass stance foot Left Foot Step Height Does not clear floor Step Description Step Symmetry Step length not equal Gait Description Path Description Mild/moderate deviation Trunk Description Marked sway or uses aide Walking Stance Heels apart Scoring and Interpretation Tinetti Composite Score (points) 6 Interpretation of Scores High risk for falls(< 19) Herrera Fall Scale Copyright Permission PT-OP-E Functional Tests Start: 05/28/19 08:11 Freq: Status: Active Protocol: Document 05/14/21 10:50 [facility] (Rec: 05/14/21 11:08 [facility] [id number]) Functional Tests 6 Minute Walk Test Distance 169ft Device Used spc, TB wrapping Comments pt has headache today and feels that may have slowed her down. Timed Up and Go (TUG) Score 107 seconds PT-OP-G Mobility & Gait Start: 05/28/19 08:11 Freq: Status: Active Protocol: Document 05/26/20 11:15 [facility] (Rec: 05/26/20 17:04 [facility] [id number]) OP Mobility Evaluation Bed Mobility Rolling min assist to right CGA to left Supine to and from Sit min assist to right CGA to left Transfers Sit to Stand CGA to min assist without UE use Bed to Chair Transfers requires use of right UE but able to do with SBA Floor Transfers unable PT-OP-H Neuro Start: 05/28/19 08:11 Freq: Status: Active Protocol: Document 05/29/19 14:30 [facility] (Rec: 05/30/19 14:24 [facility] [id number]) Sensation Evaluation Gross Sensation Gross Sensation Left UE Impaired,Left LE Impaired Sensation Description Paresthesia,Numbness Coordination Evaluation Lower Extremity Tests Left Alternate Heel to Knee; Heel to Toe Test Moderate Impairment Heel on Boles Test Moderate Impairment Foot Tapping Test Moderate Impairment PT-OP-K Range of Motion Start: 05/28/19 08:11 Freq: Status: Active Protocol: Document 05/26/20 11:15 [facility] (Rec: 05/26/20 17:04 [facility] [id number]) Hip Goniometric Range of Motion Hip jake Hip ROM WFL Yes Comments actively right LE, passively left LE Knee Goniometric Range of Motion Knee jake Knee ROM WFL Yes Ankle and Foot Goniometric Range of Motion Ankle and Foot Left Passive Ankle/Foot ROM WFL No Left Active Ankle/Foot ROM WFL No PT-OP-M Strength Start: 05/28/19 08:11 Freq: Status: Active Protocol: Document 05/26/20 11:15 [facility] (Rec: 05/26/20 17:04 [facility] [id number]) Hip Strength Hip Manual Muscle Testing Left Flexion (L2) 3- Fair- Extension (S1) 2 Poor Abduction 2+ Poor+ External Rotation 3- Fair- Internal Rotation 3+ Fair+ Right Flexion (L2) 4 Good Extension (S1) 4- Good- Abduction 4 Good External Rotation 3+ Fair+ Internal Rotation 4- Good- PT-OP-Q Treatments Start: 05/28/19 08:11 Freq: Status: Active Protocol: Document 05/20/22 11:21 [facility] (Rec: 05/20/22 12:26 [facility] [id number]) Gait Training Gait Activity backward Device Used none, no AFO Level of Assistance CGA Surface firm, parallel bars Distance/Duration 5' x 2 Treatment Focus decreased support, gluteal activation, soft knee Comments mirror for visual feedback. parallel bars Description forward,back Device Used min UE support Level of Assistance no AFO Surface firm Distance/Duration 2x each direction Treatment Focus neutral alignment, weight- shift over LLE required verbal sequencing Comments mirror for visual feedback pre-gait weight shifts Description side to side, stride stance without AFO Device Used none Level of Assistance CG, verbal cues Surface firm Distance/Duration rail on R Treatment Focus increased weight bearing left LE (cued >50-75%) Comments mirror for visual feedback- worked w/PT helping dec knee hyperext; PT helped pt get into better knee position and gave min A as pt wt shifted to maintain better knee positioning for better wt acceptance x13 min 1 Description level surface Device Used AFO, no cane Level of Assistance CGA, cues Surface indoor carpet Distance/Duration 40ft x 2 Treatment Focus safety, improved mechanics; max cues for inc RLE step length Manual Therapy Treatment Soft Tissue Mobilization HS Body Location L Intensity/Depth Moderate Body Position Sitting Comments manual stretch knee extension w/ DF pre gait ITB, peroneal Body Location L ITB Mobilization Type Myofascial Release,Strumming Intensity/Depth gentle> moderate> gentle pressure Body Position Sitting Comments tender to pressure, modified with feedback. Pt responded improved decrease tightness pre gait for success. Joint Mobilizations MTPs, talocrual mobs, rotation forefoot Joint L Grade II Body Position Sitting Comments good feedback response manual MWM support foot/ ankle seated pre gait, noted decrease plantar and inversion tone. Neuro Re-Education Treatment Balance Activities Modified SLS Details Modified SLS on LLE Surface firm> Equipment RUE WB on //bar, RLE toe touch Reps/Duration 3x 30 sec Comments cued L quad facilitation/ knee extension soft knee and glut fac pelvis over knee/ wt shift over LLE and decrease RUE heavy WB on //bar, gradually load left LE until feels strong for SLS. PT-OP-R Modalities Start: 05/28/19 08:11 Freq: Status: Active Protocol: Document 12/29/20 10:30 [facility] (Rec: 12/29/20 11:44 [facility] [id number]) Electric Stimulation Electric Stimulation Functional Electric Stimulation Body Location L hand/ forearm extensors Duration (Minutes) 2 Patient Position Sitting Comments NMES- education on placement of pad for muscular feedback extension based- check self placement understanding. PT-OP-T Assessment and Plan Start: 05/28/19 08:11 Freq: Status: Active Protocol: Document 05/20/22 11:21 [facility] (Rec: 05/20/22 12:26 [facility] [id number]) Physical Therapy Assessment Goals Five Impairment gait speed not adequate for safe community ambulation Chcf Goal (LTG) Patient able to ambulate 300' in 6 min. TUG score no greater than 30 sec 06/02/20: 134' 08/28/20: 144', likely not as high due to new shoes and wearing old AFO because fits better in new shoes. Requires level 4 theraband for derotation of left LE into more neutral position for gait . 09/19/20: 146 ft 6 min w/ QC and Tb wrapping to LLE. 11/13/20: 153 ft CG w/ SPC 2>3 pt gait w/out metronome w/ reported L glut/ lateral leg burn pain, 2 step brief stand breaks. 11/24/20: progressing 173.7 ft using SPC, predominently 2 pt gait. TUG score 59 sec using SP 01/27/21: TUG 55 sec. , 6 min walk test 199.9 ft with SPC 03/19/21: 6 min walk test 165' , TUG 1:20. Continue with use of theraband for derotation of excess ER left LE with gait . 04/16/21: 6MWT 190 ft w/ SPC and TB wrapping assist hip IR. 04/23/21: 6MWT 181 ftw/ SPC and TB wrapping 06/25/21: 6MWT 180 ft with SPC and TB wrapping. TU sec 09/16/21 - average gait speed 0 .14 m/s on 6MWT which pt completed with no AD (AFO only ). 12/23/21: most recent 6 min walk test 159 ft with no theraband derotation wrap and no assistive device LTG Duration 06/14/22 Four Impairment requires assistance with bed mobility and transfers Short Term Goal (STG) Patient will be able to perform all bed mobility independently to improve her functional independence. 10/31/19: good goal progress 06/02/20:inconsistent, but min assist most times 11/24/20: Met goal: pt is independent in supine>sit. STG Duration goal met Electroformer Goal (LTG) Patient will be able to perform a floor transfer with SB to min assist. 5x sit to stand score in no more than 15 sec as measure of functional strength for transfers 10/31/19: max assist today 01/02/20: has not been willing to try since 10/31/19 06/02/21: does not feel strong enough to try yet. 06/25/21: 08/28/20: max assistance required 12/02/20: remains at max assist , not recently willing to attempt floor transfer. 5x sit to stand score 26 seconds 01/27/21: not tried recently. 03/24/21: 5x sit to stand 25 sec. No floor transfer today 06/25/21: 5x sit to stand 24 sec. Patient didn't feel up to doing floor transfer, remains a concern 09/16/21: Pt willing to work on floor transfers but demonstrates a great deal of fear avoidance. 12/23/21: 5 Time Sit to Stand today in 30.4 seconds from standard height chair with no use of RUE LTG Duration 06/14/22 Three Impairment weakness left UE and LE s/p CVA Electroformer Goal (LTG) Improve functional strength in left LE, as evidenced by ability to move from sit > < stand without use of UE's. 10/31/19: OT starts tomorrow. Good progress with sit to stand, though mostly using right UE and LE 01/02/20: Improving ability to perform, able to increase weight-bearing through left LE with cues, but still some use of right UE 05/26/20: With manual and visual feedback patient able to transfer sit to stand with only CG A. 08/28/20: inconsistent ability to move sit to stand without using UE's, but able to do transfer without physical assistance 11/24/20: Goal Met 01/27/21: more difficulty recently, having to use hands. Goal reactivated. 03/24/21: difficulty motor planning and performing sit to stand today. 06/25/21: patient becomes frustrated with sit to stand transfers as she expresses she feels she has a hard time remembering how to do it, has to use right UE 09/16/21 Pt completes sit to stand x 5 today without use of RUE from std height chair. LTG Duration goal met Two Impairment balance dysfunction with high risk for falls Electroformer Goal (LTG) Improve balance as evidenced by improvement in Tinnetti balance and gait score to low fall risk range to improve safety in the home and community. 10/31/19: remains high risk for falls 01/02/20: some improvement but still in high risk category 05/26/20: Tinetti score in high risk category 08/28/20: moderate risk for falls 12/02/20: remains in moderate risk for falls. 01/27/21: moderate risk for falls 03/24/21: no significant change noted today but again having poor day. 06/25/21: Moderate risk for falls, though no reported falls over past few months. 09/16/21 No change 12/23/21: improved by 3 points 03/16/22: no further change this treatment period LTG Duration 06/14/22 One Impairment requires armaan-walker for gait, limited to household gait Chcf Goal (LTG) Patient able to ambulate with least restrictive device for functional community distances to improve her functional independence and quality of life. 10/30/19: no progress due to Covid 19. 11/02/19: able to ambulate with quad cane but with very slow speed, household distances, very short community distances . 05/26/20: Now able to ambulate with use of single point cane and use of L4 theraband wrapped around left LE to facilitate left LE internal rotation for improved alignment. Patient unable to don the theraband on her own. Gait is for short distances and very slow at 39 ft in 2 min. 08/28/20: has demonstrated improved gait ability, still using theraband for derotation of LE for more neutral position. Able to consistenly use quad cane and is increasing stride length especially with cues. Now able to ascend and descend 4 stairs with min assist using railing. Mod assist on 6 stairs. 12/02/20: Patient ambulating with SPC, mostly household but some community distances, improved gait alignment with use of theraband for improved alignment. Patient not consistently able to ambulate community distances due to pain in her left LE, and lack of neurological control left LE. Patient may benefit from modification to her current AFO or fabrication of new AFO. 173 ft in 6 minutes 01/27/21: using SPC. Limitations due to left foot, knee and hip pain, right wrist pain 6 min walk test improved to 199.9 feet today 03/24/21: slower 6 min walk test today as above. Has had modification to her AFO with some improvement in her function, but had poor day today. 06/25/21: 180' on 6 min walk test, patient reports left knee feeling wonky, and right UE still painful due to surgery' having stitches out today. Also c/o lack of caregiver recently has limited her walking, no outings. Will try again next session. 09/16/21: Pt completes 6MWT without cane today/ Average gait speed 0.14 12/23/21: Adelaide is now able to ambulate indoors with no assistive device. Outdoors on level surfaces with no device with CGA, uneven surfaces requires cane and CG to mod assist. Continues to improve. 03/16/22: No improvement in speed, though patient continues to be able to ambulate without device most of the time in PT though doesn 't do at home due to fear. Improved confidence on compliant surface in clinic with ability to do without device. LTG Duration 06/14/22 Assessment Summary Assessment Started session after walk to gym with HC stretching and foot joint mobilization prior to standing, pre-gait, and gait training activities in parallel bars. Improved sit to stand without AFO which allows forward translation of tibia. Feel would benefit from less rigid AFO. Physical Therapy Plan Frequency and Duration Frequency of Treatment 2x/Week Duration of treatment (weeks) 12 Plan of Care Start Date 03/16/22 Plan of Care End Date 06/14/22 Therapeutic Interventions Therapeutic Interventions Aquatic Therapy,Balance Training,Gait Training,Home Exercise Program,Neuromuscular Re-education,Orthotic/ Prosthetic Management,Patient/ Caregiver Education,Self-Care/ Home Management,Taping, Therapeutic Activities, Therapeutic Exercises Modalities Cold Pack/Ice Massage,Hot Packs Next Visit Focus/Plan Next Note Type Treatment Note Next Visit Plan Gait and balance training without AFO as much as pt tolerates on firm and uneven ground. Manual ankle stretching and joint mobilization prior to closed chain activities. Determine AFO vendor and how long since last received new AFO, recommend less rigid AFO.
--- NOTE | 2022-05-27 16:46 | PT.OTN ---
Current Diagnoses Difficulty in walking, not elsewhere classified (05/27/22) Weakness (05/27/22) History of falling (05/27/22) Physical Therapy Treatment Note PT-OP-A Visit Information Start: 05/28/19 08:11 Freq: Status: Active Protocol: Document 05/27/22 11:35 SAK (Rec: 05/27/22 12:05 [facility] [id number]) Out-Patient Physical Therapy Visit Information Visit Information Visit Type Treatment Note Visit Start Time 11:20 Visit Stop Time 12:00 Total Visit Minutes 39 Visit Number [id number] PT-OP-B Current Condition Start: 05/28/19 08:11 Freq: Status: Active Protocol: Document 06/04/20 11:15 SAK (Rec: 06/05/20 16:34 SAK [id number]) Current Condition History of Current Condition Onset Date 2014 Current Complaints weakness, requires assistance with all mobility and household tasks History of Current Condition Reports that she suffered a stroke in 2014 after surgery for brain aneurysm. CVA caused weakness on the left side of her body, gait and balance difficulty, seizures. PT-OP-C Subjective Start: 05/28/19 08:11 Freq: Status: Active Protocol: Document 05/27/22 11:35 SAK (Rec: 05/27/22 12:05 [facility] [id number]) OP-PT Subjective Patient Comments Patient Comments Feeling stiff, sore. PT-OP-D Balance Start: 05/28/19 08:11 Freq: Status: Active Protocol: Document 05/29/19 14:30 SAK (Rec: 05/30/19 14:24 SAK [id number]) OP-PT Balance Assessment Sitting Balance Static Sitting Balance Ability Good Dynamic Sitting Balance Ability Fair Standing Balance Static Standing Balance Ability Good Dynamic Standing Balance Ability Fair Device Used [facility] right Tinetti Balance Assessment Sitting Balance Sitting Balance Steady, safe Arising from Chair Attempts to Arise Able, requires >1 attempt Standing Balance Immediate Standing Balance Steady with support Standing Balance Steady, wide stance Nudged Response Begins to fall Standing with Eyes Closed Unsteady Turning Step Pattern Turning 360 Degrees Discontinuous steps Stability Turning 360 Degrees Unsteady, grabs/staggers Sitting Down Sitting Down Uses arms or unsteady Gait and Step Initiation of Gait Hesitancy, mult. attempts Right Foot Step Length Does not pass stance ft. Right Foot Step Height Does not clear floor Left Foot Step Length Does not pass stance foot Left Foot Step Height Does not clear floor Step Description Step Symmetry Step length not equal Gait Description Path Description Mild/moderate deviation Trunk Description Marked sway or uses aide Walking Stance Heels apart Scoring and Interpretation Tinetti Composite Score (points) 6 Interpretation of Scores High risk for falls(< 19) Herrera Fall Scale Copyright Permission PT-OP-E Functional Tests Start: 05/28/19 08:11 Freq: Status: Active Protocol: Document 05/14/21 10:50 [facility] (Rec: 05/14/21 11:08 [facility] [id number]) Functional Tests 6 Minute Walk Test Distance 169ft Device Used spc, TB wrapping Comments pt has headache today and feels that may have slowed her down. Timed Up and Go (TUG) Score 107 seconds PT-OP-G Mobility & Gait Start: 05/28/19 08:11 Freq: Status: Active Protocol: Document 05/26/20 11:15 SAK (Rec: 05/26/20 17:04 SAK [id number]) OP Mobility Evaluation Bed Mobility Rolling min assist to right CGA to left Supine to and from Sit min assist to right CGA to left Transfers Sit to Stand CGA to min assist without UE use Bed to Chair Transfers requires use of right UE but able to do with SBA Floor Transfers unable PT-OP-H Neuro Start: 05/28/19 08:11 Freq: Status: Active Protocol: Document 05/29/19 14:30 SAK (Rec: 05/30/19 14:24 SAK [id number]) Sensation Evaluation Gross Sensation Gross Sensation Left UE Impaired,Left LE Impaired Sensation Description Paresthesia,Numbness Coordination Evaluation Lower Extremity Tests Left Alternate Heel to Knee; Heel to Toe Test Moderate Impairment Heel on Boles Test Moderate Impairment Foot Tapping Test Moderate Impairment PT-OP-K Range of Motion Start: 05/28/19 08:11 Freq: Status: Active Protocol: Document 05/26/20 11:15 SAK (Rec: 05/26/20 17:04 SAK [id number]) Hip Goniometric Range of Motion Hip jake Hip ROM WFL Yes Comments actively right LE, passively left LE Knee Goniometric Range of Motion Knee jake Knee ROM WFL Yes Ankle and Foot Goniometric Range of Motion Ankle and Foot Left Passive Ankle/Foot ROM WFL No Left Active Ankle/Foot ROM WFL No PT-OP-M Strength Start: 05/28/19 08:11 Freq: Status: Active Protocol: Document 05/26/20 11:15 [facility] (Rec: 05/26/20 17:04 [facility] [id number]) Hip Strength Hip Manual Muscle Testing Left Flexion (L2) 3- Fair- Extension (S1) 2 Poor Abduction 2+ Poor+ External Rotation 3- Fair- Internal Rotation 3+ Fair+ Right Flexion (L2) 4 Good Extension (S1) 4- Good- Abduction 4 Good External Rotation 3+ Fair+ Internal Rotation 4- Good- PT-OP-Q Treatments Start: 05/28/19 08:11 Freq: Status: Active Protocol: Document 05/27/22 11:35 [facility] (Rec: 05/27/22 12:05 [facility] [id number]) Cardio Equipment Recumbent Stepper (Sci-Fit) Duration (Minutes) 10 Resistance 2 Seat Position 9 Other no AFO; cues for left LE alignment, 1.0mile Therapeutic Exercises Sitting Exercises IT band stretch Side left Reps/Minutes 2min Comments with pin and stretch HC stretch Side left Resistance AAROM Equipment Used manual Reps/Minutes 30 x 2 Comments instructed caregiver Merced Gait Training Gait Activity backward Device Used none, no AFO Level of Assistance CGA Surface firm, parallel bars Distance/Duration 5' x 2 Treatment Focus decreased support, gluteal activation, soft knee Comments mirror for visual feedback. parallel bars Description forward Device Used min UE support Level of Assistance no AFO Surface firm Distance/Duration 2x 10 ft Treatment Focus neutral alignment, weight- shift over LLE required verbal sequencing, soft k Comments mirror for visual feedback pre-gait weight shifts Description side to side, stride stance without AFO Device Used none Level of Assistance CG, verbal cues Surface firm Distance/Duration rail on R Treatment Focus increased weight bearing left LE (cued >50-75%) Comments mirror for visual feedback- worked w/PT helping dec knee hyperext; PT helped pt get into better knee position and gave min A as pt wt shifted to maintain better knee positioning for better wt acceptance x13 min 1 Description level surface Device Used cane, no AFO Level of Assistance CGA, cues Surface indoor carpet Distance/Duration 6 ft x 2 Treatment Focus cues for wt shift, soft knee Manual Therapy Treatment Soft Tissue Mobilization ITB, peroneal Body Location L ITB Mobilization Type Myofascial Release,Strumming Intensity/Depth gentle> moderate> gentle pressure Body Position Sitting Comments tender to pressure, modified with feedback. Pt responded improved decrease tightness pre gait for success. Joint Mobilizations MTPs, talocrual mobs, rotation forefoot Joint L Grade II Body Position Sitting Comments good feedback response manual MWM support foot/ ankle seated pre gait, noted decrease plantar and inversion tone. PT-OP-R Modalities Start: 05/28/19 08:11 Freq: Status: Active Protocol: Document 12/29/20 10:30 SP (Rec: 12/29/20 11:44 SP [id number]) Electric Stimulation Electric Stimulation Functional Electric Stimulation Body Location L hand/ forearm extensors Duration (Minutes) 2 Patient Position Sitting Comments NMES- education on placement of pad for muscular feedback extension based- check self placement understanding. PT-OP-T Assessment and Plan Start: 05/28/19 08:11 Freq: Status: Active Protocol: Document 05/27/22 11:35 SAK (Rec: 05/27/22 12:05 SAK [id number]) Physical Therapy Assessment Goals Five Impairment gait speed not adequate for safe community ambulation [facility] Goal (LTG) Patient able to ambulate 300' in 6 min. TUG score no greater than 30 sec 06/02/20: 134' 08/28/20: 144', likely not as high due to new shoes and wearing old AFO because fits better in new shoes. Requires level 4 theraband for derotation of left LE into more neutral position for gait . 09/19/20: 146 ft 6 min w/ QC and Tb wrapping to LLE. 11/13/20: 153 ft CG w/ SPC 2>3 pt gait w/out metronome w/ reported L glut/ lateral leg burn pain, 2 step brief stand breaks. 11/24/20: progressing 173.7 ft using SPC, predominently 2 pt gait. TUG score 59 sec using SP 01/27/21: TUG 55 sec. , 6 min walk test 199.9 ft with SPC 03/19/21: 6 min walk test 165' , TUG 1:20. Continue with use of theraband for derotation of excess ER left LE with gait . 04/16/21: 6MWT 190 ft w/ SPC and TB wrapping assist hip IR. 04/23/21: 6MWT 181 ftw/ SPC and TB wrapping 06/25/21: 6MWT 180 ft with SPC and TB wrapping. TU sec 09/16/21 - average gait speed 0 .14 m/s on 6MWT which pt completed with no AD (AFO only ). 12/23/21: most recent 6 min walk test 159 ft with no theraband derotation wrap and no assistive device LTG Duration 06/14/22 Four Impairment requires assistance with bed mobility and transfers Short Term Goal (STG) Patient will be able to perform all bed mobility independently to improve her functional independence. 10/31/19: good goal progress 06/02/20:inconsistent, but min assist most times 11/24/20: Met goal: pt is independent in supine>sit. STG Duration goal met Retirement Sales Consultant Goal (LTG) Patient will be able to perform a floor transfer with SB to min assist. 5x sit to stand score in no more than 15 sec as measure of functional strength for transfers 10/31/19: max assist today 01/02/20: has not been willing to try since 10/31/19 06/02/21: does not feel strong enough to try yet. 06/25/21: 08/28/20: max assistance required 12/02/20: remains at max assist , not recently willing to attempt floor transfer. 5x sit to stand score 26 seconds 01/27/21: not tried recently. 03/24/21: 5x sit to stand 25 sec. No floor transfer today 06/25/21: 5x sit to stand 24 sec. Patient didn't feel up to doing floor transfer, remains a concern 09/16/21: Pt willing to work on floor transfers but demonstrates a great deal of fear avoidance. 12/23/21: 5 Time Sit to Stand today in 30.4 seconds from standard height chair with no use of RUE LTG Duration 06/14/22 Three Impairment weakness left UE and LE s/p CVA Retirement Sales Consultant Goal (LTG) Improve functional strength in left LE, as evidenced by ability to move from sit > < stand without use of UE's. 10/31/19: OT starts tomorrow. Good progress with sit to stand, though mostly using right UE and LE 01/02/20: Improving ability to perform, able to increase weight-bearing through left LE with cues, but still some use of right UE 05/26/20: With manual and visual feedback patient able to transfer sit to stand with only CG A. 08/28/20: inconsistent ability to move sit to stand without using UE's, but able to do transfer without physical assistance 11/24/20: Goal Met 01/27/21: more difficulty recently, having to use hands. Goal reactivated. 03/24/21: difficulty motor planning and performing sit to stand today. 06/25/21: patient becomes frustrated with sit to stand transfers as she expresses she feels she has a hard time remembering how to do it, has to use right UE 09/16/21 Pt completes sit to stand x 5 today without use of RUE from std height chair. LTG Duration goal met Two Impairment balance dysfunction with high risk for falls [facility] Goal (LTG) Improve balance as evidenced by improvement in Tinnetti balance and gait score to low fall risk range to improve safety in the home and community. 10/31/19: remains high risk for falls 01/02/20: some improvement but still in high risk category 05/26/20: Tinetti score in high risk category 08/28/20: moderate risk for falls 12/02/20: remains in moderate risk for falls. 01/27/21: moderate risk for falls 03/24/21: no significant change noted today but again having poor day. 06/25/21: Moderate risk for falls, though no reported falls over past few months. 09/16/21 No change 12/23/21: improved by 3 points 03/16/22: no further change this treatment period LTG Duration 06/14/22 One Impairment requires armaan-walker for gait, limited to household gait Retirement Sales Consultant Goal (LTG) Patient able to ambulate with least restrictive device for functional community distances to improve her functional independence and quality of life. 10/30/19: no progress due to Covid 19. 11/02/19: able to ambulate with quad cane but with very slow speed, household distances, very short community distances . 05/26/20: Now able to ambulate with use of single point cane and use of L4 theraband wrapped around left LE to facilitate left LE internal rotation for improved alignment. Patient unable to don the theraband on her own. Gait is for short distances and very slow at 39 ft in 2 min. 08/28/20: has demonstrated improved gait ability, still using theraband for derotation of LE for more neutral position. Able to consistenly use quad cane and is increasing stride length especially with cues. Now able to ascend and descend 4 stairs with min assist using railing. Mod assist on 6 stairs. 12/02/20: Patient ambulating with SPC, mostly household but some community distances, improved gait alignment with use of theraband for improved alignment. Patient not consistently able to ambulate community distances due to pain in her left LE, and lack of neurological control left LE. Patient may benefit from modification to her current AFO or fabrication of new AFO. 173 ft in 6 minutes 01/27/21: using SPC. Limitations due to left foot, knee and hip pain, right wrist pain 6 min walk test improved to 199.9 feet today 03/24/21: slower 6 min walk test today as above. Has had modification to her AFO with some improvement in her function, but had poor day today. 06/25/21: 180' on 6 min walk test, patient reports left knee feeling wonky, and right UE still painful due to surgery' having stitches out today. Also c/o lack of caregiver recently has limited her walking, no outings. Will try again next session. 09/16/21: Pt completes 6MWT without cane today/ Average gait speed 0.14 12/23/21: Adelaide is now able to ambulate indoors with no assistive device. Outdoors on level surfaces with no device with CGA, uneven surfaces requires cane and CG to mod assist. Continues to improve. 03/16/22: No improvement in speed, though patient continues to be able to ambulate without device most of the time in PT though doesn 't do at home due to fear. Improved confidence on compliant surface in clinic with ability to do without device. LTG Duration 06/14/22 Assessment Summary Assessment Good session, patient able to ambulate outside of parallel bars with no AFO, using SPC with CGA and VC for sequencing , wt shift, soft knee. Physical Therapy Plan Frequency and Duration Frequency of Treatment 2x/Week Duration of treatment (weeks) 12 Plan of Care Start Date 03/16/22 Plan of Care End Date 06/14/22 Therapeutic Interventions Therapeutic Interventions Aquatic Therapy,Balance Training,Gait Training,Home Exercise Program,Neuromuscular Re-education,Orthotic/ Prosthetic Management,Patient/ Caregiver Education,Self-Care/ Home Management,Taping, Therapeutic Activities, Therapeutic Exercises Modalities Cold Pack/Ice Massage,Hot Packs Next Visit Focus/Plan Next Note Type Treatment Note Next Visit Plan Gait and balance training without AFO as much as pt tolerates on firm and uneven ground. Manual ankle stretching and joint mobilization prior to closed chain activities. Determine AFO vendor and how long since last received new AFO, recommend less rigid AFO.
--- NOTE | 2022-06-01 12:01 | PT.OTN ---
Current Diagnoses Difficulty in walking, not elsewhere classified (06/01/22) Weakness (06/01/22) History of falling (06/01/22) Physical Therapy Treatment Note PT-OP-A Visit Information Start: 05/28/19 08:11 Freq: Status: Active Protocol: Document 06/01/22 11:23 DCW (Rec: 06/01/22 12:01 DCW [id number]) Out-Patient Physical Therapy Visit Information Visit Information Visit Type Treatment Note Visit Start Time 11:23 Visit Stop Time 12:00 Total Visit Minutes 37 Visit Number [id number] PT-OP-B Current Condition Start: 05/28/19 08:11 Freq: Status: Active Protocol: Document 06/04/20 11:15 SAK (Rec: 06/05/20 16:34 SAK [id number]) Current Condition History of Current Condition Onset Date 2014 Current Complaints weakness, requires assistance with all mobility and household tasks History of Current Condition Reports that she suffered a stroke in 2014 after surgery for brain aneurysm. CVA caused weakness on the left side of her body, gait and balance difficulty, seizures. PT-OP-C Subjective Start: 05/28/19 08:11 Freq: Status: Active Protocol: Document 06/01/22 11:23 DCW (Rec: 06/01/22 12:01 DCW [id number]) OP-PT Subjective Patient Comments Patient Comments Pt took a shower prior to PT today, so is running late and already a little tired. PT-OP-D Balance Start: 05/28/19 08:11 Freq: Status: Active Protocol: Document 05/29/19 14:30 SAK (Rec: 05/30/19 14:24 SAK [id number]) OP-PT Balance Assessment Sitting Balance Static Sitting Balance Ability Good Dynamic Sitting Balance Ability Fair Standing Balance Static Standing Balance Ability Good Dynamic Standing Balance Ability Fair Device Used hemiwalker right Tinetti Balance Assessment Sitting Balance Sitting Balance Steady, safe Arising from Chair Attempts to Arise Able, requires >1 attempt Standing Balance Immediate Standing Balance Steady with support Standing Balance Steady, wide stance Nudged Response Begins to fall Standing with Eyes Closed Unsteady Turning Step Pattern Turning 360 Degrees Discontinuous steps Stability Turning 360 Degrees Unsteady, grabs/staggers Sitting Down Sitting Down Uses arms or unsteady Gait and Step Initiation of Gait Hesitancy, mult. attempts Right Foot Step Length Does not pass stance ft. Right Foot Step Height Does not clear floor Left Foot Step Length Does not pass stance foot Left Foot Step Height Does not clear floor Step Description Step Symmetry Step length not equal Gait Description Path Description Mild/moderate deviation Trunk Description Marked sway or uses aide Walking Stance Heels apart Scoring and Interpretation Tinetti Composite Score (points) 6 Interpretation of Scores High risk for falls(< 19) Herrera Fall Scale Copyright Permission PT-OP-E Functional Tests Start: 05/28/19 08:11 Freq: Status: Active Protocol: Document 05/14/21 10:50 AMH (Rec: 05/14/21 11:08 AMH [id number]) Functional Tests 6 Minute Walk Test Distance 169ft Device Used spc, TB wrapping Comments pt has headache today and feels that may have slowed her down. Timed Up and Go (TUG) Score 107 seconds PT-OP-G Mobility & Gait Start: 05/28/19 08:11 Freq: Status: Active Protocol: Document 05/26/20 11:15 SAK (Rec: 05/26/20 17:04 SAK [id number]) OP Mobility Evaluation Bed Mobility Rolling min assist to right CGA to left Supine to and from Sit min assist to right CGA to left Transfers Sit to Stand CGA to min assist without UE use Bed to Chair Transfers requires use of right UE but able to do with SBA Floor Transfers unable PT-OP-H Neuro Start: 05/28/19 08:11 Freq: Status: Active Protocol: Document 05/29/19 14:30 SAK (Rec: 05/30/19 14:24 SAK [id number]) Sensation Evaluation Gross Sensation Gross Sensation Left UE Impaired,Left LE Impaired Sensation Description Paresthesia,Numbness Coordination Evaluation Lower Extremity Tests Left Alternate Heel to Knee; Heel to Toe Test Moderate Impairment Heel on Boles Test Moderate Impairment Foot Tapping Test Moderate Impairment PT-OP-K Range of Motion Start: 05/28/19 08:11 Freq: Status: Active Protocol: Document 05/26/20 11:15 SAK (Rec: 05/26/20 17:04 SAK [id number]) Hip Goniometric Range of Motion Hip jake Hip ROM WFL Yes Comments actively right LE, passively left LE Knee Goniometric Range of Motion Knee jake Knee ROM WFL Yes Ankle and Foot Goniometric Range of Motion Ankle and Foot Left Passive Ankle/Foot ROM WFL No Left Active Ankle/Foot ROM WFL No PT-OP-M Strength Start: 05/28/19 08:11 Freq: Status: Active Protocol: Document 05/26/20 11:15 SAK (Rec: 05/26/20 17:04 SAK [id number]) Hip Strength Hip Manual Muscle Testing Left Flexion (L2) 3- Fair- Extension (S1) 2 Poor Abduction 2+ Poor+ External Rotation 3- Fair- Internal Rotation 3+ Fair+ Right Flexion (L2) 4 Good Extension (S1) 4- Good- Abduction 4 Good External Rotation 3+ Fair+ Internal Rotation 4- Good- PT-OP-Q Treatments Start: 05/28/19 08:11 Freq: Status: Active Protocol: Document 06/01/22 11:23 DCW (Rec: 06/01/22 12:01 DCW [id number]) Cardio Equipment Recumbent Stepper (Sci-Fit) Duration (Minutes) 10 Resistance 2 Seat Position 8 Other no AFO; cues for left LE alignment, 1.0mile Therapeutic Exercises Supine Exercises piriformis stretch Reps/Minutes 2x Comments passive LTR Supine Exercise Name R> L states most beneficial Side bilateral Reps/Minutes 20 sec x2 Comments cued feet together DKFO tolerant range ITB stretch w/ strap Supine Exercise Name AAROM Side left Equipment Used manual assist AAROM Comments cued slow movement into patient feedback: hip flex/ knee ext/ hip add alejandro gastroc stretch Supine Exercise Name manual stretch calf Side left Comments instructed caregiver Radha hamstring stretch Side left Reps/Minutes 2x30s Comments instructed caregiver Radha Neuro Re-Education Treatment Balance Activities hurdles Details Hurdles Equipment R rail, Comments fingertip support during LLE stance only PT-OP-R Modalities Start: 05/28/19 08:11 Freq: Status: Active Protocol: Document 12/29/20 10:30 SP (Rec: 12/29/20 11:44 SP [id number]) Electric Stimulation Electric Stimulation Functional Electric Stimulation Body Location L hand/ forearm extensors Duration (Minutes) 2 Patient Position Sitting Comments NMES- education on placement of pad for muscular feedback extension based- check self placement understanding. PT-OP-T Assessment and Plan Start: 05/28/19 08:11 Freq: Status: Active Protocol: Document 06/01/22 11:23 DCW (Rec: 06/01/22 12:01 DCW [id number]) Physical Therapy Assessment Goals Five Impairment gait speed not adequate for safe community ambulation Consulting Networking Engineer Goal (LTG) Patient able to ambulate 300' in 6 min. TUG score no greater than 30 sec 06/02/20: 134' 08/28/20: 144', likely not as high due to new shoes and wearing old AFO because fits better in new shoes. Requires level 4 theraband for derotation of left LE into more neutral position for gait . 09/19/20: 146 ft 6 min w/ QC and Tb wrapping to LLE. 11/13/20: 153 ft CG w/ SPC 2>3 pt gait w/out metronome w/ reported L glut/ lateral leg burn pain, 2 step brief stand breaks. 11/24/20: progressing 173.7 ft using SPC, predominently 2 pt gait. TUG score 59 sec using SP 01/27/21: TUG 55 sec. , 6 min walk test 199.9 ft with SPC 03/19/21: 6 min walk test 165' , TUG 1:20. Continue with use of theraband for derotation of excess ER left LE with gait . 04/16/21: 6MWT 190 ft w/ SPC and TB wrapping assist hip IR. 04/23/21: 6MWT 181 ftw/ SPC and TB wrapping 06/25/21: 6MWT 180 ft with SPC and TB wrapping. TU sec 09/16/21 - average gait speed 0 .14 m/s on 6MWT which pt completed with no AD (AFO only ). 12/23/21: most recent 6 min walk test 159 ft with no theraband derotation wrap and no assistive device LTG Duration 06/14/22 Four Impairment requires assistance with bed mobility and transfers Short Term Goal (STG) Patient will be able to perform all bed mobility independently to improve her functional independence. 10/31/19: good goal progress 06/02/20:inconsistent, but min assist most times 11/24/20: Met goal: pt is independent in supine>sit. STG Duration goal met Prison Goal (LTG) Patient will be able to perform a floor transfer with SB to min assist. 5x sit to stand score in no more than 15 sec as measure of functional strength for transfers 10/31/19: max assist today 01/02/20: has not been willing to try since 10/31/19 06/02/21: does not feel strong enough to try yet. 06/25/21: 08/28/20: max assistance required 12/02/20: remains at max assist , not recently willing to attempt floor transfer. 5x sit to stand score 26 seconds 01/27/21: not tried recently. 03/24/21: 5x sit to stand 25 sec. No floor transfer today 06/25/21: 5x sit to stand 24 sec. Patient didn't feel up to doing floor transfer, remains a concern 09/16/21: Pt willing to work on floor transfers but demonstrates a great deal of fear avoidance. 12/23/21: 5 Time Sit to Stand today in 30.4 seconds from standard height chair with no use of RUE LTG Duration 06/14/22 Three Impairment weakness left UE and LE s/p CVA Consulting Networking Engineer Goal (LTG) Improve functional strength in left LE, as evidenced by ability to move from sit > < stand without use of UE's. 10/31/19: OT starts tomorrow. Good progress with sit to stand, though mostly using right UE and LE 01/02/20: Improving ability to perform, able to increase weight-bearing through left LE with cues, but still some use of right UE 05/26/20: With manual and visual feedback patient able to transfer sit to stand with only CG A. 08/28/20: inconsistent ability to move sit to stand without using UE's, but able to do transfer without physical assistance 11/24/20: Goal Met 01/27/21: more difficulty recently, having to use hands. Goal reactivated. 03/24/21: difficulty motor planning and performing sit to stand today. 06/25/21: patient becomes frustrated with sit to stand transfers as she expresses she feels she has a hard time remembering how to do it, has to use right UE 09/16/21 Pt completes sit to stand x 5 today without use of RUE from std height chair. LTG Duration goal met Two Impairment balance dysfunction with high risk for falls Prison Goal (LTG) Improve balance as evidenced by improvement in Tinnetti balance and gait score to low fall risk range to improve safety in the home and community. 10/31/19: remains high risk for falls 01/02/20: some improvement but still in high risk category 05/26/20: Tinetti score in high risk category 08/28/20: moderate risk for falls 12/02/20: remains in moderate risk for falls. 01/27/21: moderate risk for falls 03/24/21: no significant change noted today but again having poor day. 06/25/21: Moderate risk for falls, though no reported falls over past few months. 09/16/21 No change 12/23/21: improved by 3 points 03/16/22: no further change this treatment period LTG Duration 06/14/22 One Impairment requires armaan-walker for gait, limited to household gait Consulting Networking Engineer Goal (LTG) Patient able to ambulate with least restrictive device for functional community distances to improve her functional independence and quality of life. 10/30/19: no progress due to Covid 19. 11/02/19: able to ambulate with quad cane but with very slow speed, household distances, very short community distances . 05/26/20: Now able to ambulate with use of single point cane and use of L4 theraband wrapped around left LE to facilitate left LE internal rotation for improved alignment. Patient unable to don the theraband on her own. Gait is for short distances and very slow at 39 ft in 2 min. 08/28/20: has demonstrated improved gait ability, still using theraband for derotation of LE for more neutral position. Able to consistenly use quad cane and is increasing stride length especially with cues. Now able to ascend and descend 4 stairs with min assist using railing. Mod assist on 6 stairs. 12/02/20: Patient ambulating with SPC, mostly household but some community distances, improved gait alignment with use of theraband for improved alignment. Patient not consistently able to ambulate community distances due to pain in her left LE, and lack of neurological control left LE. Patient may benefit from modification to her current AFO or fabrication of new AFO. 173 ft in 6 minutes 01/27/21: using SPC. Limitations due to left foot, knee and hip pain, right wrist pain 6 min walk test improved to 199.9 feet today 03/24/21: slower 6 min walk test today as above. Has had modification to her AFO with some improvement in her function, but had poor day today. 06/25/21: 180' on 6 min walk test, patient reports left knee feeling wonky, and right UE still painful due to surgery' having stitches out today. Also c/o lack of caregiver recently has limited her walking, no outings. Will try again next session. 09/16/21: Pt completes 6MWT without cane today/ Average gait speed 0.14 12/23/21: Adelaide is now able to ambulate indoors with no assistive device. Outdoors on level surfaces with no device with CGA, uneven surfaces requires cane and CG to mod assist. Continues to improve. 03/16/22: No improvement in speed, though patient continues to be able to ambulate without device most of the time in PT though doesn 't do at home due to fear. Improved confidence on compliant surface in clinic with ability to do without device. LTG Duration 06/14/22 Assessment Summary Assessment Focused on stretching and hurdles today, pt felt improvement with gait after working on flexibility. Ended with Scifit, pt tolerated well . Physical Therapy Plan Frequency and Duration Frequency of Treatment 2x/Week Duration of treatment (weeks) 12 Plan of Care Start Date 03/16/22 Plan of Care End Date 06/14/22 Therapeutic Interventions Therapeutic Interventions Aquatic Therapy,Balance Training,Gait Training,Home Exercise Program,Neuromuscular Re-education,Orthotic/ Prosthetic Management,Patient/ Caregiver Education,Self-Care/ Home Management,Taping, Therapeutic Activities, Therapeutic Exercises Modalities Cold Pack/Ice Massage,Hot Packs Next Visit Focus/Plan Next Note Type Treatment Note Next Visit Plan Gait and balance training without AFO as much as pt tolerates on firm and uneven ground. Manual ankle stretching and joint mobilization prior to closed chain activities. Determine AFO vendor and how long since last received new AFO, recommend less rigid AFO.
--- NOTE | 2022-06-03 12:21 | PT.OTN ---
Current Diagnoses Difficulty in walking, not elsewhere classified (06/03/22) Weakness (06/03/22) History of falling (06/03/22) Physical Therapy Treatment Note PT-OP-A Visit Information Start: 05/28/19 08:11 Freq: Status: Active Protocol: Document 06/03/22 11:19 SAK (Rec: 06/03/22 12:20 [facility] [id number]) Out-Patient Physical Therapy Visit Information Visit Information Visit Type Treatment Note Visit Start Time 11:20 Visit Stop Time 12:00 Total Visit Minutes 40 Visit Number [id number] PT-OP-B Current Condition Start: 05/28/19 08:11 Freq: Status: Active Protocol: Document 06/04/20 11:15 SAK (Rec: 06/05/20 16:34 [facility] [id number]) Current Condition History of Current Condition Onset Date 2014 Current Complaints weakness, requires assistance with all mobility and household tasks History of Current Condition Reports that she suffered a stroke in 2014 after surgery for brain aneurysm. CVA caused weakness on the left side of her body, gait and balance difficulty, seizures. PT-OP-C Subjective Start: 05/28/19 08:11 Freq: Status: Active Protocol: Document 06/03/22 11:19 SAK (Rec: 06/03/22 12:20 [facility] [id number]) OP-PT Subjective Patient Comments Patient Comments Don't have any energy today. PT-OP-D Balance Start: 05/28/19 08:11 Freq: Status: Active Protocol: Document 05/29/19 14:30 SAK (Rec: 05/30/19 14:24 SAK [id number]) OP-PT Balance Assessment Sitting Balance Static Sitting Balance Ability Good Dynamic Sitting Balance Ability Fair Standing Balance Static Standing Balance Ability Good Dynamic Standing Balance Ability Fair Device Used [facility] right Tinetti Balance Assessment Sitting Balance Sitting Balance Steady, safe Arising from Chair Attempts to Arise Able, requires >1 attempt Standing Balance Immediate Standing Balance Steady with support Standing Balance Steady, wide stance Nudged Response Begins to fall Standing with Eyes Closed Unsteady Turning Step Pattern Turning 360 Degrees Discontinuous steps Stability Turning 360 Degrees Unsteady, grabs/staggers Sitting Down Sitting Down Uses arms or unsteady Gait and Step Initiation of Gait Hesitancy, mult. attempts Right Foot Step Length Does not pass stance ft. Right Foot Step Height Does not clear floor Left Foot Step Length Does not pass stance foot Left Foot Step Height Does not clear floor Step Description Step Symmetry Step length not equal Gait Description Path Description Mild/moderate deviation Trunk Description Marked sway or uses aide Walking Stance Heels apart Scoring and Interpretation Tinetti Composite Score (points) 6 Interpretation of Scores High risk for falls(< 19) Herrera Fall Scale Copyright Permission PT-OP-E Functional Tests Start: 05/28/19 08:11 Freq: Status: Active Protocol: Document 05/14/21 10:50 [facility] (Rec: 05/14/21 11:08 [facility] [id number]) Functional Tests 6 Minute Walk Test Distance 169ft Device Used spc, TB wrapping Comments pt has headache today and feels that may have slowed her down. Timed Up and Go (TUG) Score 107 seconds PT-OP-G Mobility & Gait Start: 05/28/19 08:11 Freq: Status: Active Protocol: Document 05/26/20 11:15 SAK (Rec: 05/26/20 17:04 SAK [id number]) OP Mobility Evaluation Bed Mobility Rolling min assist to right CGA to left Supine to and from Sit min assist to right CGA to left Transfers Sit to Stand CGA to min assist without UE use Bed to Chair Transfers requires use of right UE but able to do with SBA Floor Transfers unable PT-OP-H Neuro Start: 05/28/19 08:11 Freq: Status: Active Protocol: Document 05/29/19 14:30 SAK (Rec: 05/30/19 14:24 SAK [id number]) Sensation Evaluation Gross Sensation Gross Sensation Left UE Impaired,Left LE Impaired Sensation Description Paresthesia,Numbness Coordination Evaluation Lower Extremity Tests Left Alternate Heel to Knee; Heel to Toe Test Moderate Impairment Heel on Boles Test Moderate Impairment Foot Tapping Test Moderate Impairment PT-OP-K Range of Motion Start: 05/28/19 08:11 Freq: Status: Active Protocol: Document 05/26/20 11:15 SAK (Rec: 05/26/20 17:04 SAK [id number]) Hip Goniometric Range of Motion Hip jake Hip ROM WFL Yes Comments actively right LE, passively left LE Knee Goniometric Range of Motion Knee jake Knee ROM WFL Yes Ankle and Foot Goniometric Range of Motion Ankle and Foot Left Passive Ankle/Foot ROM WFL No Left Active Ankle/Foot ROM WFL No PT-OP-M Strength Start: 05/28/19 08:11 Freq: Status: Active Protocol: Document 05/26/20 11:15 SAK (Rec: 05/26/20 17:04 SAK [id number]) Hip Strength Hip Manual Muscle Testing Left Flexion (L2) 3- Fair- Extension (S1) 2 Poor Abduction 2+ Poor+ External Rotation 3- Fair- Internal Rotation 3+ Fair+ Right Flexion (L2) 4 Good Extension (S1) 4- Good- Abduction 4 Good External Rotation 3+ Fair+ Internal Rotation 4- Good- PT-OP-Q Treatments Start: 05/28/19 08:11 Freq: Status: Active Protocol: Document 06/03/22 11:19 [facility] (Rec: 06/03/22 12:20 [facility] [id number]) Cardio Equipment Recumbent Stepper (Sci-Fit) Duration (Minutes) 10 Resistance 2 Seat Position 8 Other no AFO; cues for left LE alignment, 1.0mile Therapeutic Exercises Sitting Exercises IT band stretch Side left Reps/Minutes 1min pirifomis stretch Reps/Minutes 1 min Comments manual HS stretch Reps/Minutes 1 min Comments manual HC stretch Sitting Exercise Name PROM Side left Equipment Used manual Reps/Minutes 30 x 3 Comments instructed caregiver Gait Training Gait Activity stairs Description 4 stairs Device Used R railing, AFO Level of Assistance CGA and cues for LE alignment, UE support Surface 4 stairs Distance/Duration 4 stairs Treatment Focus weight shift, decreased UE support Comments discontinued due to left hip pain. 1 Description level surface Device Used cane, no AFO Level of Assistance CGA, cues Surface indoor carpet Distance/Duration 40 ft x 1, 60' x 1 Treatment Focus cues for wt shift, soft knee PT-OP-R Modalities Start: 05/28/19 08:11 Freq: Status: Active Protocol: Document 12/29/20 10:30 SP (Rec: 12/29/20 11:44 SP [id number]) Electric Stimulation Electric Stimulation Functional Electric Stimulation Body Location L hand/ forearm extensors Duration (Minutes) 2 Patient Position Sitting Comments NMES- education on placement of pad for muscular feedback extension based- check self placement understanding. PT-OP-T Assessment and Plan Start: 05/28/19 08:11 Freq: Status: Active Protocol: Document 06/03/22 11:19 [facility] (Rec: 06/03/22 12:20 [facility] [id number]) Physical Therapy Assessment Goals Five Impairment gait speed not adequate for safe community ambulation Fpc Goal (LTG) Patient able to ambulate 300' in 6 min. TUG score no greater than 30 sec 06/02/20: 134' 08/28/20: 144', likely not as high due to new shoes and wearing old AFO because fits better in new shoes. Requires level 4 theraband for derotation of left LE into more neutral position for gait . 09/19/20: 146 ft 6 min w/ QC and Tb wrapping to LLE. 11/13/20: 153 ft CG w/ SPC 2>3 pt gait w/out metronome w/ reported L glut/ lateral leg burn pain, 2 step brief stand breaks. 11/24/20: progressing 173.7 ft using SPC, predominently 2 pt gait. TUG score 59 sec using SP 01/27/21: TUG 55 sec. , 6 min walk test 199.9 ft with SPC 03/19/21: 6 min walk test 165' , TUG 1:20. Continue with use of theraband for derotation of excess ER left LE with gait . 04/16/21: 6MWT 190 ft w/ SPC and TB wrapping assist hip IR. 04/23/21: 6MWT 181 ftw/ SPC and TB wrapping 06/25/21: 6MWT 180 ft with SPC and TB wrapping. TU sec 09/16/21 - average gait speed 0 .14 m/s on 6MWT which pt completed with no AD (AFO only ). 12/23/21: most recent 6 min walk test 159 ft with no theraband derotation wrap and no assistive device LTG Duration 06/14/22 Four Impairment requires assistance with bed mobility and transfers Short Term Goal (STG) Patient will be able to perform all bed mobility independently to improve her functional independence. 10/31/19: good goal progress 06/02/20:inconsistent, but min assist most times 11/24/20: Met goal: pt is independent in supine>sit. STG Duration goal met [employer] Operator Goal (LTG) Patient will be able to perform a floor transfer with SB to min assist. 5x sit to stand score in no more than 15 sec as measure of functional strength for transfers 10/31/19: max assist today 01/02/20: has not been willing to try since 10/31/19 06/02/21: does not feel strong enough to try yet. 06/25/21: 08/28/20: max assistance required 12/02/20: remains at max assist , not recently willing to attempt floor transfer. 5x sit to stand score 26 seconds 01/27/21: not tried recently. 03/24/21: 5x sit to stand 25 sec. No floor transfer today 06/25/21: 5x sit to stand 24 sec. Patient didn't feel up to doing floor transfer, remains a concern 09/16/21: Pt willing to work on floor transfers but demonstrates a great deal of fear avoidance. 12/23/21: 5 Time Sit to Stand today in 30.4 seconds from standard height chair with no use of RUE LTG Duration 06/14/22 Three Impairment weakness left UE and LE s/p CVA [employer] Operator Goal (LTG) Improve functional strength in left LE, as evidenced by ability to move from sit > < stand without use of UE's. 10/31/19: OT starts tomorrow. Good progress with sit to stand, though mostly using right UE and LE 01/02/20: Improving ability to perform, able to increase weight-bearing through left LE with cues, but still some use of right UE 05/26/20: With manual and visual feedback patient able to transfer sit to stand with only CG A. 08/28/20: inconsistent ability to move sit to stand without using UE's, but able to do transfer without physical assistance 11/24/20: Goal Met 01/27/21: more difficulty recently, having to use hands. Goal reactivated. 03/24/21: difficulty motor planning and performing sit to stand today. 06/25/21: patient becomes frustrated with sit to stand transfers as she expresses she feels she has a hard time remembering how to do it, has to use right UE 09/16/21 Pt completes sit to stand x 5 today without use of RUE from std height chair. LTG Duration goal met Two Impairment balance dysfunction with high risk for falls [employer]ing [employer] Operator Goal (LTG) Improve balance as evidenced by improvement in Tinnetti balance and gait score to low fall risk range to improve safety in the home and community. 10/31/19: remains high risk for falls 01/02/20: some improvement but still in high risk category 05/26/20: Tinetti score in high risk category 08/28/20: moderate risk for falls 12/02/20: remains in moderate risk for falls. 01/27/21: moderate risk for falls 03/24/21: no significant change noted today but again having poor day. 06/25/21: Moderate risk for falls, though no reported falls over past few months. 09/16/21 No change 12/23/21: improved by 3 points 03/16/22: no further change this treatment period LTG Duration 06/14/22 One Impairment requires armaan-walker for gait, limited to household gait Fpc Goal (LTG) Patient able to ambulate with least restrictive device for functional community distances to improve her functional independence and quality of life. 10/30/19: no progress due to Covid 19. 11/02/19: able to ambulate with quad cane but with very slow speed, household distances, very short community distances . 05/26/20: Now able to ambulate with use of single point cane and use of L4 theraband wrapped around left LE to facilitate left LE internal rotation for improved alignment. Patient unable to don the theraband on her own. Gait is for short distances and very slow at 39 ft in 2 min. 08/28/20: has demonstrated improved gait ability, still using theraband for derotation of LE for more neutral position. Able to consistenly use quad cane and is increasing stride length especially with cues. Now able to ascend and descend 4 stairs with min assist using railing. Mod assist on 6 stairs. 12/02/20: Patient ambulating with SPC, mostly household but some community distances, improved gait alignment with use of theraband for improved alignment. Patient not consistently able to ambulate community distances due to pain in her left LE, and lack of neurological control left LE. Patient may benefit from modification to her current AFO or fabrication of new AFO. 173 ft in 6 minutes 01/27/21: using SPC. Limitations due to left foot, knee and hip pain, right wrist pain 6 min walk test improved to 199.9 feet today 03/24/21: slower 6 min walk test today as above. Has had modification to her AFO with some improvement in her function, but had poor day today. 06/25/21: 180' on 6 min walk test, patient reports left knee feeling wonky, and right UE still painful due to surgery' having stitches out today. Also c/o lack of caregiver recently has limited her walking, no outings. Will try again next session. 09/16/21: Pt completes 6MWT without cane today/ Average gait speed 0.14 12/23/21: Adelaide is now able to ambulate indoors with no assistive device. Outdoors on level surfaces with no device with CGA, uneven surfaces requires cane and CG to mod assist. Continues to improve. 03/16/22: No improvement in speed, though patient continues to be able to ambulate without device most of the time in PT though doesn 't do at home due to fear. Improved confidence on compliant surface in clinic with ability to do without device. LTG Duration 06/14/22 Assessment Summary Assessment Decreased weight-bearing tolerance today due to left hip pain, improved with stretching but returned with resumption of gait. Discontinued stairs at end of session due to pain. Discussed weakness and compensatory movements as cause for pain and tightness. Try using ice and heat at home, supine and seated exercises for strengthening. ASsisted stretching with caregivers; updated HO issued. Physical Therapy Plan Frequency and Duration Frequency of Treatment 2x/Week Duration of treatment (weeks) 12 Plan of Care Start Date 03/16/22 Plan of Care End Date 06/14/22 Therapeutic Interventions Therapeutic Interventions Aquatic Therapy,Balance Training,Gait Training,Home Exercise Program,Neuromuscular Re-education,Orthotic/ Prosthetic Management,Patient/ Caregiver Education,Self-Care/ Home Management,Taping, Therapeutic Activities, Therapeutic Exercises Modalities Cold Pack/Ice Massage,Hot Packs Next Visit Focus/Plan Next Note Type Treatment Note Next Visit Plan Gait and balance training without AFO as much as pt tolerates on firm and uneven ground. Manual ankle stretching and joint mobilization prior to closed chain activities. Determine AFO vendor and how long since last received new AFO, recommend less rigid AFO.
--- NOTE | 2022-06-14 15:41 | PT.OTN ---
Current Diagnoses Difficulty in walking, not elsewhere classified (06/14/22) Weakness (06/14/22) History of falling (06/14/22) Physical Therapy Treatment Note PT-OP-A Visit Information Start: 05/28/19 08:11 Freq: Status: Active Protocol: Document 06/14/22 13:00 [facility] (Rec: 06/14/22 13:48 [facility] [id number]) Out-Patient Physical Therapy Visit Information Visit Information Visit Type Treatment Note Visit Start Time 13:00 Visit Stop Time 13:45 Total Visit Minutes 45 Visit Number [id number] PT-OP-B Current Condition Start: 05/28/19 08:11 Freq: Status: Active Protocol: Document 06/04/20 11:15 [facility] (Rec: 06/05/20 16:34 [facility] [id number]) Current Condition History of Current Condition Onset Date 2014 Current Complaints weakness, requires assistance with all mobility and household tasks History of Current Condition Reports that she suffered a stroke in 2014 after surgery for brain aneurysm. CVA caused weakness on the left side of her body, gait and balance difficulty, seizures. PT-OP-C Subjective Start: 05/28/19 08:11 Freq: Status: Active Protocol: Document 06/14/22 13:00 [facility] (Rec: 06/14/22 13:48 [facility] [id number]) OP-PT Subjective Patient Comments Patient Comments Had fasting labs this am and couldn't take medicaiton. Not feeling well. PT-OP-D Balance Start: 05/28/19 08:11 Freq: Status: Active Protocol: Document 05/29/19 14:30 [facility] (Rec: 05/30/19 14:24 [facility] [id number]) OP-PT Balance Assessment Sitting Balance Static Sitting Balance Ability Good Dynamic Sitting Balance Ability Fair Standing Balance Static Standing Balance Ability Good Dynamic Standing Balance Ability Fair Device Used [facility] right Tinetti Balance Assessment Sitting Balance Sitting Balance Steady, safe Arising from Chair Attempts to Arise Able, requires >1 attempt Standing Balance Immediate Standing Balance Steady with support Standing Balance Steady, wide stance Nudged Response Begins to fall Standing with Eyes Closed Unsteady Turning Step Pattern Turning 360 Degrees Discontinuous steps Stability Turning 360 Degrees Unsteady, grabs/staggers Sitting Down Sitting Down Uses arms or unsteady Gait and Step Initiation of Gait Hesitancy, mult. attempts Right Foot Step Length Does not pass stance ft. Right Foot Step Height Does not clear floor Left Foot Step Length Does not pass stance foot Left Foot Step Height Does not clear floor Step Description Step Symmetry Step length not equal Gait Description Path Description Mild/moderate deviation Trunk Description Marked sway or uses aide Walking Stance Heels apart Scoring and Interpretation Tinetti Composite Score (points) 6 Interpretation of Scores High risk for falls(< 19) Herrera Fall Scale Copyright Permission PT-OP-E Functional Tests Start: 05/28/19 08:11 Freq: Status: Active Protocol: Document 05/14/21 10:50 [facility] (Rec: 05/14/21 11:08 [facility] [id number]) Functional Tests 6 Minute Walk Test Distance 169ft Device Used spc, TB wrapping Comments pt has headache today and feels that may have slowed her down. Timed Up and Go (TUG) Score 107 seconds PT-OP-G Mobility & Gait Start: 05/28/19 08:11 Freq: Status: Active Protocol: Document 05/26/20 11:15 [facility] (Rec: 05/26/20 17:04 [facility] [id number]) OP Mobility Evaluation Bed Mobility Rolling min assist to right CGA to left Supine to and from Sit min assist to right CGA to left Transfers Sit to Stand CGA to min assist without UE use Bed to Chair Transfers requires use of right UE but able to do with SBA Floor Transfers unable PT-OP-H Neuro Start: 05/28/19 08:11 Freq: Status: Active Protocol: Document 05/29/19 14:30 [facility] (Rec: 05/30/19 14:24 [facility] [id number]) Sensation Evaluation Gross Sensation Gross Sensation Left UE Impaired,Left LE Impaired Sensation Description Paresthesia,Numbness Coordination Evaluation Lower Extremity Tests Left Alternate Heel to Knee; Heel to Toe Test Moderate Impairment Heel on Boles Test Moderate Impairment Foot Tapping Test Moderate Impairment PT-OP-K Range of Motion Start: 05/28/19 08:11 Freq: Status: Active Protocol: Document 05/26/20 11:15 [facility] (Rec: 05/26/20 17:04 [facility] [id number]) Hip Goniometric Range of Motion Hip jake Hip ROM WFL Yes Comments actively right LE, passively left LE Knee Goniometric Range of Motion Knee jake Knee ROM WFL Yes Ankle and Foot Goniometric Range of Motion Ankle and Foot Left Passive Ankle/Foot ROM WFL No Left Active Ankle/Foot ROM WFL No PT-OP-M Strength Start: 05/28/19 08:11 Freq: Status: Active Protocol: Document 05/26/20 11:15 [facility] (Rec: 05/26/20 17:04 [facility] [id number]) Hip Strength Hip Manual Muscle Testing Left Flexion (L2) 3- Fair- Extension (S1) 2 Poor Abduction 2+ Poor+ External Rotation 3- Fair- Internal Rotation 3+ Fair+ Right Flexion (L2) 4 Good Extension (S1) 4- Good- Abduction 4 Good External Rotation 3+ Fair+ Internal Rotation 4- Good- PT-OP-Q Treatments Start: 05/28/19 08:11 Freq: Status: Active Protocol: Document 06/14/22 13:00 [facility] (Rec: 06/14/22 13:48 [facility] [id number]) Cardio Equipment Recumbent Stepper (Sci-Fit) Duration (Minutes) 10 Resistance 2 Seat Position 8 Other no AFO; cues for left LE alignment, 1.0mile Therapeutic Exercises Sitting Exercises IT band stretch Side left Reps/Minutes 1min HS stretch Reps/Minutes 1 min Comments manual HC stretch Sitting Exercise Name PROM Side left Equipment Used manual Reps/Minutes 30 x 3 Standing Exercises weight-shifting Standing Exercise Name side to side, front to back Resistance AFO, in parrallel bars Equipment Used R HR Comments mirror for visual feedback, verbal and manual cues Gait Training Gait Activity wt acceptance Comments mirror for visual feedback- worked w/PT helping dec knee hyperext; PT helped pt get into better knee position and gave min A as pt wt shifted to maintain better knee positioning for better wt acceptance and pt went into SLS on LLE w/R rail x8 backward Device Used none, no AFO Level of Assistance CGA Surface firm, parallel bars Distance/Duration 5' x 2 Treatment Focus decreased support, gluteal activation, soft knee Comments mirror for visual feedback. uneven Description uneven Device Used AFO, Level of Assistance CGA to min assist Surface black yoga mats, blue mat Treatment Focus balance and stability Comments CG to min assist to step up and down, no CGA while on mat parallel bars Description forward Device Used min UE support Level of Assistance no AFO Surface firm Distance/Duration 2x 10 ft Treatment Focus neutral alignment, weight- shift over LLE required verbal sequencing, soft k Comments mirror for visual feedback 1 Description level surface Device Used cane, no AFO Level of Assistance CGA, cues Surface indoor carpet Distance/Duration 30' x 1 Treatment Focus cues for wt shift, soft knee PT-OP-T Assessment and Plan Start: 05/28/19 08:11 Freq: Status: Active Protocol: Document 06/14/22 13:00 [facility] (Rec: 06/14/22 13:48 [facility] [id number]) Physical Therapy Assessment Goals Five Impairment gait speed not adequate for safe community ambulation Engineering And Operations Director Goal (LTG) Patient able to ambulate 300' in 6 min. TUG score no greater than 30 sec 06/02/20: 134' 08/28/20: 144', likely not as high due to new shoes and wearing old AFO because fits better in new shoes. Requires level 4 theraband for derotation of left LE into more neutral position for gait . 09/19/20: 146 ft 6 min w/ QC and Tb wrapping to LLE. 11/13/20: 153 ft CG w/ SPC 2>3 pt gait w/out metronome w/ reported L glut/ lateral leg burn pain, 2 step brief stand breaks. 11/24/20: progressing 173.7 ft using SPC, predominently 2 pt gait. TUG score 59 sec using SP 01/27/21: TUG 55 sec. , 6 min walk test 199.9 ft with SPC 03/19/21: 6 min walk test 165' , TUG 1:20. Continue with use of theraband for derotation of excess ER left LE with gait . 04/16/21: 6MWT 190 ft w/ SPC and TB wrapping assist hip IR. 04/23/21: 6MWT 181 ftw/ SPC and TB wrapping 06/25/21: 6MWT 180 ft with SPC and TB wrapping. TU sec 09/16/21 - average gait speed 0 .14 m/s on 6MWT which pt completed with no AD (AFO only ). 12/23/21: most recent 6 min walk test 159 ft with no theraband derotation wrap and no assistive device LTG Duration 06/14/22 Four Impairment requires assistance with bed mobility and transfers Short Term Goal (STG) Patient will be able to perform all bed mobility independently to improve her functional independence. 10/31/19: good goal progress 06/02/20:inconsistent, but min assist most times 11/24/20: Met goal: pt is independent in supine>sit. STG Duration goal met Correction Goal (LTG) Patient will be able to perform a floor transfer with SB to min assist. 5x sit to stand score in no more than 15 sec as measure of functional strength for transfers 10/31/19: max assist today 01/02/20: has not been willing to try since 10/31/19 06/02/21: does not feel strong enough to try yet. 06/25/21: 08/28/20: max assistance required 12/02/20: remains at max assist , not recently willing to attempt floor transfer. 5x sit to stand score 26 seconds 01/27/21: not tried recently. 03/24/21: 5x sit to stand 25 sec. No floor transfer today 06/25/21: 5x sit to stand 24 sec. Patient didn't feel up to doing floor transfer, remains a concern 09/16/21: Pt willing to work on floor transfers but demonstrates a great deal of fear avoidance. 12/23/21: 5 Time Sit to Stand today in 30.4 seconds from standard height chair with no use of RUE LTG Duration 06/14/22 Three Impairment weakness left UE and LE s/p CVA Correction Goal (LTG) Improve functional strength in left LE, as evidenced by ability to move from sit > < stand without use of UE's. 10/31/19: OT starts tomorrow. Good progress with sit to stand, though mostly using right UE and LE 01/02/20: Improving ability to perform, able to increase weight-bearing through left LE with cues, but still some use of right UE 05/26/20: With manual and visual feedback patient able to transfer sit to stand with only CG A. 08/28/20: inconsistent ability to move sit to stand without using UE's, but able to do transfer without physical assistance 11/24/20: Goal Met 01/27/21: more difficulty recently, having to use hands. Goal reactivated. 03/24/21: difficulty motor planning and performing sit to stand today. 06/25/21: patient becomes frustrated with sit to stand transfers as she expresses she feels she has a hard time remembering how to do it, has to use right UE 09/16/21 Pt completes sit to stand x 5 today without use of RUE from std height chair. LTG Duration goal met Two Impairment balance dysfunction with high risk for falls Engineering And Operations Director Goal (LTG) Improve balance as evidenced by improvement in Tinnetti balance and gait score to low fall risk range to improve safety in the home and community. 10/31/19: remains high risk for falls 01/02/20: some improvement but still in high risk category 05/26/20: Tinetti score in high risk category 08/28/20: moderate risk for falls 12/02/20: remains in moderate risk for falls. 01/27/21: moderate risk for falls 03/24/21: no significant change noted today but again having poor day. 06/25/21: Moderate risk for falls, though no reported falls over past few months. 09/16/21 No change 12/23/21: improved by 3 points 03/16/22: no further change this treatment period LTG Duration 06/14/22 One Impairment requires armaan-walker for gait, limited to household gait Correction Goal (LTG) Patient able to ambulate with least restrictive device for functional community distances to improve her functional independence and quality of life. 10/30/19: no progress due to Covid 19. 11/02/19: able to ambulate with quad cane but with very slow speed, household distances, very short community distances . 05/26/20: Now able to ambulate with use of single point cane and use of L4 theraband wrapped around left LE to facilitate left LE internal rotation for improved alignment. Patient unable to don the theraband on her own. Gait is for short distances and very slow at 39 ft in 2 min. 08/28/20: has demonstrated improved gait ability, still using theraband for derotation of LE for more neutral position. Able to consistenly use quad cane and is increasing stride length especially with cues. Now able to ascend and descend 4 stairs with min assist using railing. Mod assist on 6 stairs. 12/02/20: Patient ambulating with SPC, mostly household but some community distances, improved gait alignment with use of theraband for improved alignment. Patient not consistently able to ambulate community distances due to pain in her left LE, and lack of neurological control left LE. Patient may benefit from modification to her current AFO or fabrication of new AFO. 173 ft in 6 minutes 01/27/21: using SPC. Limitations due to left foot, knee and hip pain, right wrist pain 6 min walk test improved to 199.9 feet today 03/24/21: slower 6 min walk test today as above. Has had modification to her AFO with some improvement in her function, but had poor day today. 06/25/21: 180' on 6 min walk test, patient reports left knee feeling wonky, and right UE still painful due to surgery' having stitches out today. Also c/o lack of caregiver recently has limited her walking, no outings. Will try again next session. 09/16/21: Pt completes 6MWT without cane today/ Average gait speed 0.14 12/23/21: Adelaide is now able to ambulate indoors with no assistive device. Outdoors on level surfaces with no device with CGA, uneven surfaces requires cane and CG to mod assist. Continues to improve. 03/16/22: No improvement in speed, though patient continues to be able to ambulate without device most of the time in PT though doesn 't do at home due to fear. Improved confidence on compliant surface in clinic with ability to do without device. LTG Duration 06/14/22 Progress Towards Goals Progress Towards Goals Progressing Toward Goals Assessment Summary Assessment Improved gait ability on foam mats today as well as on level without AFO despite not feeling well. Physical Therapy Plan Frequency and Duration Frequency of Treatment 2x/Week Duration of treatment (weeks) 12 Plan of Care Start Date 03/16/22 Plan of Care End Date 06/14/22 Therapeutic Interventions Therapeutic Interventions Aquatic Therapy,Balance Training,Gait Training,Home Exercise Program,Neuromuscular Re-education,Orthotic/ Prosthetic Management,Patient/ Caregiver Education,Self-Care/ Home Management,Taping, Therapeutic Activities, Therapeutic Exercises Modalities Cold Pack/Ice Massage,Hot Packs Next Visit Focus/Plan Next Note Type Treatment Note Next Visit Plan Gait and balance training without AFO as much as pt tolerates on firm and uneven ground. Manual ankle stretching and joint mobilization prior to closed chain activities. Determine AFO vendor and how long since last received new AFO, recommend less rigid AFO. Work on weight acceptance into left LE.
--- NOTE | 2022-06-29 08:04 | PT-OP ANOTE ---
cancelled due to stuck in [place] with inclement weather
--- NOTE | 2022-07-06 09:43 | PT.OTN ---
Current Diagnoses Difficulty in walking, not elsewhere classified (07/06/22) Weakness (07/06/22) History of falling (07/06/22) Physical Therapy Treatment Note PT-OP-A Visit Information Start: 05/28/19 08:11 Freq: Status: Active Protocol: Document 07/06/22 09:01 [facility] (Rec: 07/06/22 09:43 [facility] [id number]) Out-Patient Physical Therapy Visit Information Visit Information Visit Type Treatment Note Visit Start Time 09:01 Visit Stop Time 09:45 Total Visit Minutes 44 Visit Number [id number] PT-OP-B Current Condition Start: 05/28/19 08:11 Freq: Status: Active Protocol: Document 06/04/20 11:15 [facility]AK (Rec: 06/05/20 16:34 [facility] [id number]) Current Condition History of Current Condition Onset Date 2014 Current Complaints weakness, requires assistance with all mobility and household tasks History of Current Condition Reports that she suffered a stroke in 2014 after surgery for brain aneurysm. CVA caused weakness on the left side of her body, gait and balance difficulty, seizures. PT-OP-C Subjective Start: 05/28/19 08:11 Freq: Status: Active Protocol: Document 07/06/22 09:01 [facility] (Rec: 07/06/22 09:43 [facility] [id number]) OP-PT Subjective Patient Comments Patient Comments States had to get up from low futon where she was staying in [place], did more walking PT-OP-D Balance Start: 05/28/19 08:11 Freq: Status: Active Protocol: Document 05/29/19 14:30 SAK (Rec: 05/30/19 14:24 [facility] [id number]) OP-PT Balance Assessment Sitting Balance Static Sitting Balance Ability Good Dynamic Sitting Balance Ability Fair Standing Balance Static Standing Balance Ability Good Dynamic Standing Balance Ability Fair Device Used hemiwalker right Tinetti Balance Assessment Sitting Balance Sitting Balance Steady, safe Arising from Chair Attempts to Arise Able, requires >1 attempt Standing Balance Immediate Standing Balance Steady with support Standing Balance Steady, wide stance Nudged Response Begins to fall Standing with Eyes Closed Unsteady Turning Step Pattern Turning 360 Degrees Discontinuous steps Stability Turning 360 Degrees Unsteady, grabs/staggers Sitting Down Sitting Down Uses arms or unsteady Gait and Step Initiation of Gait Hesitancy, mult. attempts Right Foot Step Length Does not pass stance ft. Right Foot Step Height Does not clear floor Left Foot Step Length Does not pass stance foot Left Foot Step Height Does not clear floor Step Description Step Symmetry Step length not equal Gait Description Path Description Mild/moderate deviation Trunk Description Marked sway or uses aide Walking Stance Heels apart Scoring and Interpretation Tinetti Composite Score (points) 6 Interpretation of Scores High risk for falls(< 19) Herrera Fall Scale Copyright Permission PT-OP-E Functional Tests Start: 05/28/19 08:11 Freq: Status: Active Protocol: Document 05/14/21 10:50 [facility] (Rec: 05/14/21 11:08 [facility] [id number]) Functional Tests 6 Minute Walk Test Distance 169ft Device Used spc, TB wrapping Comments pt has headache today and feels that may have slowed her down. Timed Up and Go (TUG) Score 107 seconds PT-OP-G Mobility & Gait Start: 05/28/19 08:11 Freq: Status: Active Protocol: Document 05/26/20 11:15 [facility]AK (Rec: 05/26/20 17:04 [facility] [id number]) OP Mobility Evaluation Bed Mobility Rolling min assist to right CGA to left Supine to and from Sit min assist to right CGA to left Transfers Sit to Stand CGA to min assist without UE use Bed to Chair Transfers requires use of right UE but able to do with SBA Floor Transfers unable PT-OP-H Neuro Start: 05/28/19 08:11 Freq: Status: Active Protocol: Document 05/29/19 14:30 [facility]AK (Rec: 05/30/19 14:24 [facility] [id number]) Sensation Evaluation Gross Sensation Gross Sensation Left UE Impaired,Left LE Impaired Sensation Description Paresthesia,Numbness Coordination Evaluation Lower Extremity Tests Left Alternate Heel to Knee; Heel to Toe Test Moderate Impairment Heel on Boles Test Moderate Impairment Foot Tapping Test Moderate Impairment PT-OP-K Range of Motion Start: 05/28/19 08:11 Freq: Status: Active Protocol: Document 05/26/20 11:15 [facility] (Rec: 05/26/20 17:04 [facility] [id number]) Hip Goniometric Range of Motion Hip jake Hip ROM WFL Yes Comments actively right LE, passively left LE Knee Goniometric Range of Motion Knee jake Knee ROM WFL Yes Ankle and Foot Goniometric Range of Motion Ankle and Foot Left Passive Ankle/Foot ROM WFL No Left Active Ankle/Foot ROM WFL No PT-OP-M Strength Start: 05/28/19 08:11 Freq: Status: Active Protocol: Document 05/26/20 11:15 [facility] (Rec: 05/26/20 17:04 [facility] [id number]) Hip Strength Hip Manual Muscle Testing Left Flexion (L2) 3- Fair- Extension (S1) 2 Poor Abduction 2+ Poor+ External Rotation 3- Fair- Internal Rotation 3+ Fair+ Right Flexion (L2) 4 Good Extension (S1) 4- Good- Abduction 4 Good External Rotation 3+ Fair+ Internal Rotation 4- Good- PT-OP-Q Treatments Start: 05/28/19 08:11 Freq: Status: Active Protocol: Document 07/06/22 09:01 [facility] (Rec: 07/06/22 09:43 [facility] [id number]) Cardio Equipment Recumbent Stepper (Sci-Fit) Duration (Minutes) 10 Resistance 2 Seat Position 9 Other no AFO; cues for left LE alignment, 7.5' mile, 10' 1.3 mi Therapeutic Exercises Sitting Exercises HC stretch Sitting Exercise Name PROM Side left Equipment Used manual Reps/Minutes 30 x 4 Standing Exercises weight-shifting Standing Exercise Name side to side, front to back Resistance AFO, Equipment Used no UE support sit to stands Standing Exercise Name sit to stand without AFO Equipment Used black tx table Reps/Minutes 3x10 Comments cues for leftward weight shift , no UE assist Gait Training Gait Activity gait with AFO Device Used none Surface firm Distance/Duration 75 Treatment Focus balance, safety wt acceptance Comments mirror for visual feedback- worked w/PT helping dec knee hyperext; PT helped pt get into better knee position and gave min A as pt wt shifted to maintain better knee positioning for better wt acceptance and pt went into SLS on LLE w/R rail x8 1 Description level surface Device Used no cane or AFO Level of Assistance CGA, cues Surface indoor carpet Distance/Duration 15 x 1 Treatment Focus cues for wt shift, soft knee Manual Therapy Treatment Joint Mobilizations MTPs, talocrual mobs, rotation forefoot Joint L Grade II Body Position Sitting Comments good feedback response manual MWM support foot/ ankle seated pre gait, noted decrease plantar and inversion tone. Use of Dycem PT-OP-T Assessment and Plan Start: 05/28/19 08:11 Freq: Status: Active Protocol: Document 07/06/22 09:01 [facility] (Rec: 07/06/22 09:43 [facility] [id number]) Physical Therapy Assessment Goals Five Impairment gait speed not adequate for safe community ambulation Halfway Goal (LTG) Patient able to ambulate 300' in 6 min. TUG score no greater than 30 sec 06/02/20: 134' 08/28/20: 144', likely not as high due to new shoes and wearing old AFO because fits better in new shoes. Requires level 4 theraband for derotation of left LE into more neutral position for gait . 09/19/20: 146 ft 6 min w/ QC and Tb wrapping to LLE. 11/13/20: 153 ft CG w/ SPC 2>3 pt gait w/out metronome w/ reported L glut/ lateral leg burn pain, 2 step brief stand breaks. 11/24/20: progressing 173.7 ft using SPC, predominently 2 pt gait. TUG score 59 sec using SP 01/27/21: TUG 55 sec. , 6 min walk test 199.9 ft with SPC 03/19/21: 6 min walk test 165' , TUG 1:20. Continue with use of theraband for derotation of excess ER left LE with gait . 04/16/21: 6MWT 190 ft w/ SPC and TB wrapping assist hip IR. 04/23/21: 6MWT 181 ftw/ SPC and TB wrapping 06/25/21: 6MWT 180 ft with SPC and TB wrapping. TU sec 09/16/21 - average gait speed 0 .14 m/s on 6MWT which pt completed with no AD (AFO only ). 12/23/21: most recent 6 min walk test 159 ft with no theraband derotation wrap and no assistive device 06/14/22: LTG Duration 09/11/22 Four Impairment requires assistance with bed mobility and transfers Short Term Goal (STG) Patient will be able to perform all bed mobility independently to improve her functional independence. 10/31/19: good goal progress 06/02/20:inconsistent, but min assist most times 11/24/20: Met goal: pt is independent in supine>sit. STG Duration goal met Halfway Goal (LTG) Patient will be able to perform a floor transfer with SB to min assist. 5x sit to stand score in no more than 15 sec as measure of functional strength for transfers 10/31/19: max assist today 01/02/20: has not been willing to try since 10/31/19 06/02/21: does not feel strong enough to try yet. 06/25/21: 08/28/20: max assistance required 12/02/20: remains at max assist , not recently willing to attempt floor transfer. 5x sit to stand score 26 seconds 01/27/21: not tried recently. 03/24/21: 5x sit to stand 25 sec. No floor transfer today 06/25/21: 5x sit to stand 24 sec. Patient didn't feel up to doing floor transfer, remains a concern 09/16/21: Pt willing to work on floor transfers but demonstrates a great deal of fear avoidance. 12/23/21: 5 Time Sit to Stand today in 30.4 seconds from standard height chair with no use of RUE 06/14/22 LTG Duration 09/11/22 Three Impairment weakness left UE and LE s/p CVA Halfway Goal (LTG) Improve functional strength in left LE, as evidenced by ability to move from sit > < stand without use of UE's. 10/31/19: OT starts tomorrow. Good progress with sit to stand, though mostly using right UE and LE 01/02/20: Improving ability to perform, able to increase weight-bearing through left LE with cues, but still some use of right UE 05/26/20: With manual and visual feedback patient able to transfer sit to stand with only CG A. 08/28/20: inconsistent ability to move sit to stand without using UE's, but able to do transfer without physical assistance 11/24/20: Goal Met 01/27/21: more difficulty recently, having to use hands. Goal reactivated. 03/24/21: difficulty motor planning and performing sit to stand today. 06/25/21: patient becomes frustrated with sit to stand transfers as she expresses she feels she has a hard time remembering how to do it, has to use right UE 09/16/21 Pt completes sit to stand x 5 today without use of RUE from std height chair. LTG Duration goal met Two Impairment balance dysfunction with high risk for falls Halfway Goal (LTG) Improve balance as evidenced by improvement in Tinnetti balance and gait score to low fall risk range to improve safety in the home and community. 10/31/19: remains high risk for falls 01/02/20: some improvement but still in high risk category 05/26/20: Tinetti score in high risk category 08/28/20: moderate risk for falls 12/02/20: remains in moderate risk for falls. 01/27/21: moderate risk for falls 03/24/21: no significant change noted today but again having poor day. 06/25/21: Moderate risk for falls, though no reported falls over past few months. 09/16/21 No change 12/23/21: improved by 3 points 03/16/22: no further change this treatment period 06/14/22 Tinetti gait and balance score LTG Duration 09/11/22 One Impairment requires armaan-walker for gait, limited to household gait Pole Cutter Goal (LTG) Patient able to ambulate with least restrictive device for functional community distances to improve her functional independence and quality of life. 10/30/19: no progress due to Covid 19. 11/02/19: able to ambulate with quad cane but with very slow speed, household distances, very short community distances . 05/26/20: Now able to ambulate with use of single point cane and use of L4 theraband wrapped around left LE to facilitate left LE internal rotation for improved alignment. Patient unable to don the theraband on her own. Gait is for short distances and very slow at 39 ft in 2 min. 08/28/20: has demonstrated improved gait ability, still using theraband for derotation of LE for more neutral position. Able to consistenly use quad cane and is increasing stride length especially with cues. Now able to ascend and descend 4 stairs with min assist using railing. Mod assist on 6 stairs. 12/02/20: Patient ambulating with SPC, mostly household but some community distances, improved gait alignment with use of theraband for improved alignment. Patient not consistently able to ambulate community distances due to pain in her left LE, and lack of neurological control left LE. Patient may benefit from modification to her current AFO or fabrication of new AFO. 173 ft in 6 minutes 01/27/21: using SPC. Limitations due to left foot, knee and hip pain, right wrist pain 6 min walk test improved to 199.9 feet today 03/24/21: slower 6 min walk test today as above. Has had modification to her AFO with some improvement in her function, but had poor day today. 06/25/21: 180' on 6 min walk test, patient reports left knee feeling wonky, and right UE still painful due to surgery' having stitches out today. Also c/o lack of caregiver recently has limited her walking, no outings. Will try again next session. 09/16/21: Pt completes 6MWT without cane today/ Average gait speed 0.14 12/23/21: Adelaide is now able to ambulate indoors with no assistive device. Outdoors on level surfaces with no device with CGA, uneven surfaces requires cane and CG to mod assist. Continues to improve. 03/16/22: No improvement in speed, though patient continues to be able to ambulate without device most of the time in PT though doesn 't do at home due to fear. Improved confidence on compliant surface in clinic with ability to do without device. 06/14/22: patient progressing with gait without device though ability variability depending on tone and musculoskeletal pain. Today able to ambulate 10 ft with cane but no AFO but difficulty due to lack of knee control/hyperextension at knee in weight-bearing. potential for further improvement. LTG Duration 09/11/22 Progress Towards Goals Progress Towards Goals Progressing Toward Goals Assessment Summary Assessment able to ambulate 15' today with no AFO or cane for first time outside of parallel bars, good improvement in gait Physical Therapy Plan Frequency and Duration Frequency of Treatment 2x/Week Duration of treatment (weeks) 12 Plan of Care Start Date 06/14/22 Plan of Care End Date 09/11/22 Next Visit Focus/Plan Next Note Type Treatment Note Next Visit Plan Gait and balance training without AFO as much as pt tolerates on firm and uneven ground. Manual ankle stretching and joint mobilization prior to closed chain activities. Determine AFO vendor and how long since last received new AFO, recommend less rigid AFO. Work on weight acceptance into left LE.
--- NOTE | 2022-07-15 17:10 | PT.OTN ---
Current Diagnoses Difficulty in walking, not elsewhere classified (07/15/22) Weakness (07/15/22) History of falling (07/15/22) Physical Therapy Treatment Note PT-OP-A Visit Information Start: 05/28/19 08:11 Freq: Status: Active Protocol: Document 07/15/22 11:19 SAK (Rec: 07/15/22 12:03 [facility] [id number]) Out-Patient Physical Therapy Visit Information Visit Information Visit Type Treatment Note Visit Start Time 11:15 Visit Stop Time 12:00 Total Visit Minutes 45 Visit Number [id number] PT-OP-B Current Condition Start: 05/28/19 08:11 Freq: Status: Active Protocol: Document 06/04/20 11:15 SAK (Rec: 06/05/20 16:34 [facility] [id number]) Current Condition History of Current Condition Onset Date 2014 Current Complaints weakness, requires assistance with all mobility and household tasks History of Current Condition Reports that she suffered a stroke in 2014 after surgery for brain aneurysm. CVA caused weakness on the left side of her body, gait and balance difficulty, seizures. PT-OP-C Subjective Start: 05/28/19 08:11 Freq: Status: Active Protocol: Document 07/15/22 11:19 SAK (Rec: 07/15/22 12:03 [facility] [id number]) OP-PT Subjective Patient Comments Patient Comments Consult for new AFO 07/19/22. FEeling very tight in left LE today. Sees Dr. José Miguel zuniga. Patient Reported Progress Improving PT-OP-D Balance Start: 05/28/19 08:11 Freq: Status: Active Protocol: Document 05/29/19 14:30 SAK (Rec: 05/30/19 14:24 [facility] [id number]) OP-PT Balance Assessment Sitting Balance Static Sitting Balance Ability Good Dynamic Sitting Balance Ability Fair Standing Balance Static Standing Balance Ability Good Dynamic Standing Balance Ability Fair Device Used hemiwalker right Tinetti Balance Assessment Sitting Balance Sitting Balance Steady, safe Arising from Chair Attempts to Arise Able, requires >1 attempt Standing Balance Immediate Standing Balance Steady with support Standing Balance Steady, wide stance Nudged Response Begins to fall Standing with Eyes Closed Unsteady Turning Step Pattern Turning 360 Degrees Discontinuous steps Stability Turning 360 Degrees Unsteady, grabs/staggers Sitting Down Sitting Down Uses arms or unsteady Gait and Step Initiation of Gait Hesitancy, mult. attempts Right Foot Step Length Does not pass stance ft. Right Foot Step Height Does not clear floor Left Foot Step Length Does not pass stance foot Left Foot Step Height Does not clear floor Step Description Step Symmetry Step length not equal Gait Description Path Description Mild/moderate deviation Trunk Description Marked sway or uses aide Walking Stance Heels apart Scoring and Interpretation Tinetti Composite Score (points) 6 Interpretation of Scores High risk for falls(< 19) Herrera Fall Scale Copyright Permission PT-OP-E Functional Tests Start: 05/28/19 08:11 Freq: Status: Active Protocol: Document 05/14/21 10:50 [facility] (Rec: 05/14/21 11:08 [facility] [id number]) Functional Tests 6 Minute Walk Test Distance 169ft Device Used spc, TB wrapping Comments pt has headache today and feels that may have slowed her down. Timed Up and Go (TUG) Score 107 seconds PT-OP-G Mobility & Gait Start: 05/28/19 08:11 Freq: Status: Active Protocol: Document 05/26/20 11:15 SAK (Rec: 05/26/20 17:04 [facility] [id number]) OP Mobility Evaluation Bed Mobility Rolling min assist to right CGA to left Supine to and from Sit min assist to right CGA to left Transfers Sit to Stand CGA to min assist without UE use Bed to Chair Transfers requires use of right UE but able to do with SBA Floor Transfers unable PT-OP-H Neuro Start: 05/28/19 08:11 Freq: Status: Active Protocol: Document 05/29/19 14:30 SAK (Rec: 05/30/19 14:24 [facility] [id number]) Sensation Evaluation Gross Sensation Gross Sensation Left UE Impaired,Left LE Impaired Sensation Description Paresthesia,Numbness Coordination Evaluation Lower Extremity Tests Left Alternate Heel to Knee; Heel to Toe Test Moderate Impairment Heel on Boles Test Moderate Impairment Foot Tapping Test Moderate Impairment PT-OP-K Range of Motion Start: 05/28/19 08:11 Freq: Status: Active Protocol: Document 05/26/20 11:15 SAK (Rec: 05/26/20 17:04 [facility] [id number]) Hip Goniometric Range of Motion Hip jake Hip ROM WFL Yes Comments actively right LE, passively left LE Knee Goniometric Range of Motion Knee jake Knee ROM WFL Yes Ankle and Foot Goniometric Range of Motion Ankle and Foot Left Passive Ankle/Foot ROM WFL No Left Active Ankle/Foot ROM WFL No PT-OP-M Strength Start: 05/28/19 08:11 Freq: Status: Active Protocol: Document 05/26/20 11:15 [facility] (Rec: 05/26/20 17:04 [facility] [id number]) Hip Strength Hip Manual Muscle Testing Left Flexion (L2) 3- Fair- Extension (S1) 2 Poor Abduction 2+ Poor+ External Rotation 3- Fair- Internal Rotation 3+ Fair+ Right Flexion (L2) 4 Good Extension (S1) 4- Good- Abduction 4 Good External Rotation 3+ Fair+ Internal Rotation 4- Good- PT-OP-Q Treatments Start: 05/28/19 08:11 Freq: Status: Active Protocol: Document 07/15/22 11:19 [facility] (Rec: 07/15/22 12:03 [facility] [id number]) Therapeutic Exercises Sitting Exercises IT band stretch Side left Reps/Minutes 1min HS stretch Reps/Minutes 1 min Comments manual HS curl AROM Side left Resistance AROM> TB #1 Equipment Used 18 chair Reps/Minutes 2x10 HC stretch Sitting Exercise Name PROM Side left Equipment Used manual Reps/Minutes 30 x 4 LAQ Side left Resistance AROM Equipment Used 18 chair Reps/Minutes 10x Comments with manual resistance Standing Exercises weight-shifting Standing Exercise Name side to side, front to back Resistance no AFO Equipment Used no UE support sit to stands Standing Exercise Name sit to stand without AFO Equipment Used black tx table Reps/Minutes 3x10 Comments cues for leftward weight shift , no UE assist Gait Training Gait Activity gait with AFO Device Used none Surface firm Distance/Duration 25 Treatment Focus balance, safety wt acceptance Comments mirror for visual feedback- worked w/PT helping dec knee hyperext; PT helped pt get into better knee position and gave min A as pt wt shifted to maintain better knee positioning for better wt acceptance and pt went into SLS on LLE w/R rail x5 parallel bars Description forward and backward Device Used min UE support Level of Assistance no AFO Surface firm Distance/Duration 3x 10 ft Treatment Focus neutral alignment, weight- shift over LLE required verbal sequencing, soft k Comments mirror for visual feedback, PT verbal and tactile cues for wt shift, soft knee, gluteal activation Neuro Re-Education Treatment Balance Activities standing balance Surface 3 blue foam Equipment mirror Reps/Duration 2x2 min Comments cues for pushing arch toward floor neutral foot to prevent excess eversion foam stand Details feet side by side wt shift into LLE Surface blue foam, //bars Reps/Duration static stand approx CGA no UE support required Comments no AFO min A, noted L knee hyperextended, difficulty maintaining soft knee with cues. Self-Care/Home Management Treatment Education Other Education continue standing, shallow squats and small steps at home without AFO PT-OP-T Assessment and Plan Start: 05/28/19 08:11 Freq: Status: Active Protocol: Document 07/15/22 11:19 [facility] (Rec: 07/15/22 12:03 [facility] [id number]) Physical Therapy Assessment Goals Five Impairment gait speed not adequate for safe community ambulation Fpc Goal (LTG) Patient able to ambulate 300' in 6 min. TUG score no greater than 30 sec 06/02/20: 134' 08/28/20: 144', likely not as high due to new shoes and wearing old AFO because fits better in new shoes. Requires level 4 theraband for derotation of left LE into more neutral position for gait . 09/19/20: 146 ft 6 min w/ QC and Tb wrapping to LLE. 11/13/20: 153 ft CG w/ SPC 2>3 pt gait w/out metronome w/ reported L glut/ lateral leg burn pain, 2 step brief stand breaks. 11/24/20: progressing 173.7 ft using SPC, predominently 2 pt gait. TUG score 59 sec using SP 01/27/21: TUG 55 sec. , 6 min walk test 199.9 ft with SPC 03/19/21: 6 min walk test 165' , TUG 1:20. Continue with use of theraband for derotation of excess ER left LE with gait . 04/16/21: 6MWT 190 ft w/ SPC and TB wrapping assist hip IR. 04/23/21: 6MWT 181 ftw/ SPC and TB wrapping 06/25/21: 6MWT 180 ft with SPC and TB wrapping. TU sec 09/16/21 - average gait speed 0 .14 m/s on 6MWT which pt completed with no AD (AFO only ). 12/23/21: most recent 6 min walk test 159 ft with no theraband derotation wrap and no assistive device 06/14/22: LTG Duration 09/11/22 Four Impairment requires assistance with bed mobility and transfers Short Term Goal (STG) Patient will be able to perform all bed mobility independently to improve her functional independence. 10/31/19: good goal progress 06/02/20:inconsistent, but min assist most times 11/24/20: Met goal: pt is independent in supine>sit. STG Duration goal met Veneer Supervisor Goal (LTG) Patient will be able to perform a floor transfer with SB to min assist. 5x sit to stand score in no more than 15 sec as measure of functional strength for transfers 10/31/19: max assist today 01/02/20: has not been willing to try since 10/31/19 06/02/21: does not feel strong enough to try yet. 06/25/21: 08/28/20: max assistance required 12/02/20: remains at max assist , not recently willing to attempt floor transfer. 5x sit to stand score 26 seconds 01/27/21: not tried recently. 03/24/21: 5x sit to stand 25 sec. No floor transfer today 06/25/21: 5x sit to stand 24 sec. Patient didn't feel up to doing floor transfer, remains a concern 09/16/21: Pt willing to work on floor transfers but demonstrates a great deal of fear avoidance. 12/23/21: 5 Time Sit to Stand today in 30.4 seconds from standard height chair with no use of RUE 06/14/22 LTG Duration 09/11/22 Three Impairment weakness left UE and LE s/p CVA Fpc Goal (LTG) Improve functional strength in left LE, as evidenced by ability to move from sit > < stand without use of UE's. 10/31/19: OT starts tomorrow. Good progress with sit to stand, though mostly using right UE and LE 01/02/20: Improving ability to perform, able to increase weight-bearing through left LE with cues, but still some use of right UE 05/26/20: With manual and visual feedback patient able to transfer sit to stand with only CG A. 08/28/20: inconsistent ability to move sit to stand without using UE's, but able to do transfer without physical assistance 11/24/20: Goal Met 01/27/21: more difficulty recently, having to use hands. Goal reactivated. 03/24/21: difficulty motor planning and performing sit to stand today. 06/25/21: patient becomes frustrated with sit to stand transfers as she expresses she feels she has a hard time remembering how to do it, has to use right UE 09/16/21 Pt completes sit to stand x 5 today without use of RUE from std height chair. LTG Duration goal met Two Impairment balance dysfunction with high risk for falls Fpc Goal (LTG) Improve balance as evidenced by improvement in Tinnetti balance and gait score to low fall risk range to improve safety in the home and community. 10/31/19: remains high risk for falls 01/02/20: some improvement but still in high risk category 05/26/20: Tinetti score in high risk category 08/28/20: moderate risk for falls 12/02/20: remains in moderate risk for falls. 01/27/21: moderate risk for falls 03/24/21: no significant change noted today but again having poor day. 06/25/21: Moderate risk for falls, though no reported falls over past few months. 09/16/21 No change 12/23/21: improved by 3 points 03/16/22: no further change this treatment period 06/14/22 Tinetti gait and balance score LTG Duration 09/11/22 One Impairment requires armaan-walker for gait, limited to household gait Veneer Supervisor Goal (LTG) Patient able to ambulate with least restrictive device for functional community distances to improve her functional independence and quality of life. 10/30/19: no progress due to Covid 19. 11/02/19: able to ambulate with quad cane but with very slow speed, household distances, very short community distances . 05/26/20: Now able to ambulate with use of single point cane and use of L4 theraband wrapped around left LE to facilitate left LE internal rotation for improved alignment. Patient unable to don the theraband on her own. Gait is for short distances and very slow at 39 ft in 2 min. 08/28/20: has demonstrated improved gait ability, still using theraband for derotation of LE for more neutral position. Able to consistenly use quad cane and is increasing stride length especially with cues. Now able to ascend and descend 4 stairs with min assist using railing. Mod assist on 6 stairs. 12/02/20: Patient ambulating with SPC, mostly household but some community distances, improved gait alignment with use of theraband for improved alignment. Patient not consistently able to ambulate community distances due to pain in her left LE, and lack of neurological control left LE. Patient may benefit from modification to her current AFO or fabrication of new AFO. 173 ft in 6 minutes 01/27/21: using SPC. Limitations due to left foot, knee and hip pain, right wrist pain 6 min walk test improved to 199.9 feet today 03/24/21: slower 6 min walk test today as above. Has had modification to her AFO with some improvement in her function, but had poor day today. 06/25/21: 180' on 6 min walk test, patient reports left knee feeling wonky, and right UE still painful due to surgery' having stitches out today. Also c/o lack of caregiver recently has limited her walking, no outings. Will try again next session. 09/16/21: Pt completes 6MWT without cane today/ Average gait speed 0.14 12/23/21: Adelaide is now able to ambulate indoors with no assistive device. Outdoors on level surfaces with no device with CGA, uneven surfaces requires cane and CG to mod assist. Continues to improve. 03/16/22: No improvement in speed, though patient continues to be able to ambulate without device most of the time in PT though doesn 't do at home due to fear. Improved confidence on compliant surface in clinic with ability to do without device. 06/14/22: patient progressing with gait without device though ability variability depending on tone and musculoskeletal pain. Today able to ambulate 10 ft with cane but no AFO but difficulty due to lack of knee control/hyperextension at knee in weight-bearing. potential for further improvement. LTG Duration 09/11/22 Assessment Summary Assessment Less confident in gait without AFO today, less successful with weight acceptance, used parallel bars, but able to stand on foam without AFO with SBA and cues only, occas UE support on parallel bars. Continues to make steady functional progress. Physical Therapy Plan Frequency and Duration Frequency of Treatment 2x/Week Duration of treatment (weeks) 12 Plan of Care Start Date 06/14/22 Plan of Care End Date 09/11/22 Therapeutic Interventions Therapeutic Interventions Aquatic Therapy,Balance Training,Gait Training,Home Exercise Program,Neuromuscular Re-education,Orthotic/ Prosthetic Management,Patient/ Caregiver Education,Self-Care/ Home Management,Taping, Therapeutic Activities, Therapeutic Exercises Modalities Cold Pack/Ice Massage,Hot Packs Next Visit Focus/Plan Next Note Type Treatment Note Next Visit Plan Manual ankle and hip stretching followed by gait activities without AFO as much as possible, work on weight acceptance and SLS left LE and transition to gait outside of parallel barswithout AFO as able.
--- NOTE | 2022-07-21 17:06 | PT.OTN ---
Current Diagnoses Difficulty in walking, not elsewhere classified (07/21/22) Weakness (07/21/22) History of falling (07/21/22) Physical Therapy Treatment Note PT-OP-A Visit Information Start: 05/28/19 08:11 Freq: Status: Active Protocol: Document 07/21/22 09:47 SAK (Rec: 07/21/22 10:31 [facility] [id number]) Out-Patient Physical Therapy Visit Information Visit Information Visit Type Treatment Note Visit Start Time 09:48 Visit Stop Time 10:30 Total Visit Minutes 42 Visit Number [id number] PT-OP-B Current Condition Start: 05/28/19 08:11 Freq: Status: Active Protocol: Document 06/04/20 11:15 SAK (Rec: 06/05/20 16:34 SAK [id number]) Current Condition History of Current Condition Onset Date 2014 Current Complaints weakness, requires assistance with all mobility and household tasks History of Current Condition Reports that she suffered a stroke in 2014 after surgery for brain aneurysm. CVA caused weakness on the left side of her body, gait and balance difficulty, seizures. PT-OP-C Subjective Start: 05/28/19 08:11 Freq: Status: Active Protocol: Document 07/21/22 09:47 SAK (Rec: 07/21/22 10:31 [facility] [id number]) OP-PT Subjective Patient Comments Patient Comments Unable to have consult for new AFO 07/19/22 due to caregiver issues. New caregiver today. Has UTI. PT-OP-D Balance Start: 05/28/19 08:11 Freq: Status: Active Protocol: Document 05/29/19 14:30 SAK (Rec: 05/30/19 14:24 [facility] [id number]) OP-PT Balance Assessment Sitting Balance Static Sitting Balance Ability Good Dynamic Sitting Balance Ability Fair Standing Balance Static Standing Balance Ability Good Dynamic Standing Balance Ability Fair Device Used hemiwalker right Tinetti Balance Assessment Sitting Balance Sitting Balance Steady, safe Arising from Chair Attempts to Arise Able, requires >1 attempt Standing Balance Immediate Standing Balance Steady with support Standing Balance Steady, wide stance Nudged Response Begins to fall Standing with Eyes Closed Unsteady Turning Step Pattern Turning 360 Degrees Discontinuous steps Stability Turning 360 Degrees Unsteady, grabs/staggers Sitting Down Sitting Down Uses arms or unsteady Gait and Step Initiation of Gait Hesitancy, mult. attempts Right Foot Step Length Does not pass stance ft. Right Foot Step Height Does not clear floor Left Foot Step Length Does not pass stance foot Left Foot Step Height Does not clear floor Step Description Step Symmetry Step length not equal Gait Description Path Description Mild/moderate deviation Trunk Description Marked sway or uses aide Walking Stance Heels apart Scoring and Interpretation Tinetti Composite Score (points) 6 Interpretation of Scores High risk for falls(< 19) Herrera Fall Scale Copyright Permission PT-OP-E Functional Tests Start: 05/28/19 08:11 Freq: Status: Active Protocol: Document 05/14/21 10:50 [facility] (Rec: 05/14/21 11:08 [facility] [id number]) Functional Tests 6 Minute Walk Test Distance 169ft Device Used spc, TB wrapping Comments pt has headache today and feels that may have slowed her down. Timed Up and Go (TUG) Score 107 seconds PT-OP-G Mobility & Gait Start: 05/28/19 08:11 Freq: Status: Active Protocol: Document 05/26/20 11:15 SAK (Rec: 05/26/20 17:04 SAK [id number]) OP Mobility Evaluation Bed Mobility Rolling min assist to right CGA to left Supine to and from Sit min assist to right CGA to left Transfers Sit to Stand CGA to min assist without UE use Bed to Chair Transfers requires use of right UE but able to do with SBA Floor Transfers unable PT-OP-H Neuro Start: 05/28/19 08:11 Freq: Status: Active Protocol: Document 05/29/19 14:30 SAK (Rec: 05/30/19 14:24 [facility] [id number]) Sensation Evaluation Gross Sensation Gross Sensation Left UE Impaired,Left LE Impaired Sensation Description Paresthesia,Numbness Coordination Evaluation Lower Extremity Tests Left Alternate Heel to Knee; Heel to Toe Test Moderate Impairment Heel on Boles Test Moderate Impairment Foot Tapping Test Moderate Impairment PT-OP-K Range of Motion Start: 05/28/19 08:11 Freq: Status: Active Protocol: Document 05/26/20 11:15 SAK (Rec: 05/26/20 17:04 SAK [id number]) Hip Goniometric Range of Motion Hip jake Hip ROM WFL Yes Comments actively right LE, passively left LE Knee Goniometric Range of Motion Knee jake Knee ROM WFL Yes Ankle and Foot Goniometric Range of Motion Ankle and Foot Left Passive Ankle/Foot ROM WFL No Left Active Ankle/Foot ROM WFL No PT-OP-M Strength Start: 05/28/19 08:11 Freq: Status: Active Protocol: Document 05/26/20 11:15 [facility] (Rec: 05/26/20 17:04 [facility] [id number]) Hip Strength Hip Manual Muscle Testing Left Flexion (L2) 3- Fair- Extension (S1) 2 Poor Abduction 2+ Poor+ External Rotation 3- Fair- Internal Rotation 3+ Fair+ Right Flexion (L2) 4 Good Extension (S1) 4- Good- Abduction 4 Good External Rotation 3+ Fair+ Internal Rotation 4- Good- PT-OP-Q Treatments Start: 05/28/19 08:11 Freq: Status: Active Protocol: Document 07/21/22 09:47 [facility] (Rec: 07/21/22 10:31 [facility] [id number]) Gait Training Gait Activity gait with AFO Device Used none Surface firm Distance/Duration 60 Treatment Focus balance, safety wt acceptance Comments mirror for visual feedback- worked w/PT helping dec knee hyperext; PT helped pt get into better knee position and gave min A as pt wt shifted to maintain better knee positioning for better wt acceptance and pt went into SLS on LLE w/R rail x5 forward gait at rail Description Forward with no AFO Level of Assistance CGA Surface firm, mirror front for trunk alignment Distance/Duration 10 ft Treatment Focus WB into LLE, dynamic balance Comments CG support on right rail, cues for weight-shift left, bigger step right. 1 Description level surface Device Used no cane or AFO Level of Assistance CGA, cues Surface indoor carpet Distance/Duration 8' x 1, 10' x 1 Treatment Focus cues for wt shift, soft knee PT-OP-T Assessment and Plan Start: 05/28/19 08:11 Freq: Status: Active Protocol: Document 07/21/22 09:47 [facility] (Rec: 07/21/22 10:31 [facility] [id number]) Physical Therapy Assessment Goals Five Impairment gait speed not adequate for safe community ambulation Stewardesses Teacher Goal (LTG) Patient able to ambulate 300' in 6 min. TUG score no greater than 30 sec 06/02/20: 134' 08/28/20: 144', likely not as high due to new shoes and wearing old AFO because fits better in new shoes. Requires level 4 theraband for derotation of left LE into more neutral position for gait . 09/19/20: 146 ft 6 min w/ QC and Tb wrapping to LLE. 11/13/20: 153 ft CG w/ SPC 2>3 pt gait w/out metronome w/ reported L glut/ lateral leg burn pain, 2 step brief stand breaks. 11/24/20: progressing 173.7 ft using SPC, predominently 2 pt gait. TUG score 59 sec using SP 01/27/21: TUG 55 sec. , 6 min walk test 199.9 ft with SPC 03/19/21: 6 min walk test 165' , TUG 1:20. Continue with use of theraband for derotation of excess ER left LE with gait . 04/16/21: 6MWT 190 ft w/ SPC and TB wrapping assist hip IR. 04/23/21: 6MWT 181 ftw/ SPC and TB wrapping 06/25/21: 6MWT 180 ft with SPC and TB wrapping. TU sec 09/16/21 - average gait speed 0 .14 m/s on 6MWT which pt completed with no AD (AFO only ). 12/23/21: most recent 6 min walk test 159 ft with no theraband derotation wrap and no assistive device 06/14/22: LTG Duration 09/11/22 Four Impairment requires assistance with bed mobility and transfers Short Term Goal (STG) Patient will be able to perform all bed mobility independently to improve her functional independence. 10/31/19: good goal progress 06/02/20:inconsistent, but min assist most times 11/24/20: Met goal: pt is independent in supine>sit. STG Duration goal met Retirement Goal (LTG) Patient will be able to perform a floor transfer with SB to min assist. 5x sit to stand score in no more than 15 sec as measure of functional strength for transfers 10/31/19: max assist today 01/02/20: has not been willing to try since 10/31/19 06/02/21: does not feel strong enough to try yet. 06/25/21: 08/28/20: max assistance required 12/02/20: remains at max assist , not recently willing to attempt floor transfer. 5x sit to stand score 26 seconds 01/27/21: not tried recently. 03/24/21: 5x sit to stand 25 sec. No floor transfer today 06/25/21: 5x sit to stand 24 sec. Patient didn't feel up to doing floor transfer, remains a concern 09/16/21: Pt willing to work on floor transfers but demonstrates a great deal of fear avoidance. 12/23/21: 5 Time Sit to Stand today in 30.4 seconds from standard height chair with no use of RUE 06/14/22 LTG Duration 09/11/22 Three Impairment weakness left UE and LE s/p CVA Retirement Goal (LTG) Improve functional strength in left LE, as evidenced by ability to move from sit > < stand without use of UE's. 10/31/19: OT starts tomorrow. Good progress with sit to stand, though mostly using right UE and LE 01/02/20: Improving ability to perform, able to increase weight-bearing through left LE with cues, but still some use of right UE 05/26/20: With manual and visual feedback patient able to transfer sit to stand with only CG A. 08/28/20: inconsistent ability to move sit to stand without using UE's, but able to do transfer without physical assistance 11/24/20: Goal Met 01/27/21: more difficulty recently, having to use hands. Goal reactivated. 03/24/21: difficulty motor planning and performing sit to stand today. 06/25/21: patient becomes frustrated with sit to stand transfers as she expresses she feels she has a hard time remembering how to do it, has to use right UE 09/16/21 Pt completes sit to stand x 5 today without use of RUE from std height chair. LTG Duration goal met Two Impairment balance dysfunction with high risk for falls Retirement Goal (LTG) Improve balance as evidenced by improvement in Tinnetti balance and gait score to low fall risk range to improve safety in the home and community. 10/31/19: remains high risk for falls 01/02/20: some improvement but still in high risk category 05/26/20: Tinetti score in high risk category 08/28/20: moderate risk for falls 12/02/20: remains in moderate risk for falls. 01/27/21: moderate risk for falls 03/24/21: no significant change noted today but again having poor day. 06/25/21: Moderate risk for falls, though no reported falls over past few months. 09/16/21 No change 12/23/21: improved by 3 points 03/16/22: no further change this treatment period 06/14/22 Tinetti gait and balance score LTG Duration 09/11/22 One Impairment requires armaan-walker for gait, limited to household gait Stewardesses Teacher Goal (LTG) Patient able to ambulate with least restrictive device for functional community distances to improve her functional independence and quality of life. 10/30/19: no progress due to Covid 19. 11/02/19: able to ambulate with quad cane but with very slow speed, household distances, very short community distances . 05/26/20: Now able to ambulate with use of single point cane and use of L4 theraband wrapped around left LE to facilitate left LE internal rotation for improved alignment. Patient unable to don the theraband on her own. Gait is for short distances and very slow at 39 ft in 2 min. 08/28/20: has demonstrated improved gait ability, still using theraband for derotation of LE for more neutral position. Able to consistenly use quad cane and is increasing stride length especially with cues. Now able to ascend and descend 4 stairs with min assist using railing. Mod assist on 6 stairs. 12/02/20: Patient ambulating with SPC, mostly household but some community distances, improved gait alignment with use of theraband for improved alignment. Patient not consistently able to ambulate community distances due to pain in her left LE, and lack of neurological control left LE. Patient may benefit from modification to her current AFO or fabrication of new AFO. 173 ft in 6 minutes 01/27/21: using SPC. Limitations due to left foot, knee and hip pain, right wrist pain 6 min walk test improved to 199.9 feet today 03/24/21: slower 6 min walk test today as above. Has had modification to her AFO with some improvement in her function, but had poor day today. 06/25/21: 180' on 6 min walk test, patient reports left knee feeling wonky, and right UE still painful due to surgery' having stitches out today. Also c/o lack of caregiver recently has limited her walking, no outings. Will try again next session. 09/16/21: Pt completes 6MWT without cane today/ Average gait speed 0.14 12/23/21: Adelaide is now able to ambulate indoors with no assistive device. Outdoors on level surfaces with no device with CGA, uneven surfaces requires cane and CG to mod assist. Continues to improve. 03/16/22: No improvement in speed, though patient continues to be able to ambulate without device most of the time in PT though doesn 't do at home due to fear. Improved confidence on compliant surface in clinic with ability to do without device. 06/14/22: patient progressing with gait without device though ability variability depending on tone and musculoskeletal pain. Today able to ambulate 10 ft with cane but no AFO but difficulty due to lack of knee control/hyperextension at knee in weight-bearing. potential for further improvement. LTG Duration 09/11/22 Assessment Summary Assessment Caregiver training throughout session with new caregiver Karuna. For length of parallel bars after AFO removed and s/ p ankle mob and stretching patient able to ambulate with best gait seen by this therapist with ability to keep knee soft and improved weight shift. She fatigued quickly and had difficulty with gait outside of parallel bars without AFO or cane. Overall improved, Karuna attentive and demonstrsated good understanding. Physical Therapy Plan Frequency and Duration Frequency of Treatment 2x/Week Duration of treatment (weeks) 12 Plan of Care Start Date 06/14/22 Plan of Care End Date 09/11/22 Therapeutic Interventions Therapeutic Interventions Aquatic Therapy,Balance Training,Gait Training,Home Exercise Program,Neuromuscular Re-education,Orthotic/ Prosthetic Management,Patient/ Caregiver Education,Self-Care/ Home Management,Taping, Therapeutic Activities, Therapeutic Exercises Modalities Cold Pack/Ice Massage,Hot Packs Next Visit Focus/Plan Next Note Type Treatment Note Next Visit Plan Manual ankle and hip stretching followed by gait activities without AFO as much as possible, work on weight acceptance and SLS left LE and transition to gait outside of parallel barswithout AFO as able.
--- NOTE | 2022-08-03 12:14 | PT.OTN ---
Current Diagnoses Difficulty in walking, not elsewhere classified (08/03/22) Weakness (08/03/22) History of falling (08/03/22) Physical Therapy Treatment Note PT-OP-A Visit Information Start: 05/28/19 08:11 Freq: Status: Active Protocol: Document 08/03/22 11:16 SAK (Rec: 08/03/22 12:14 [facility] [id number]) Out-Patient Physical Therapy Visit Information Visit Information Visit Type Treatment Note Visit Start Time 11:16 Visit Stop Time 12:01 Total Visit Minutes 45 Visit Number 190 PT-OP-B Current Condition Start: 05/28/19 08:11 Freq: Status: Active Protocol: Document 06/04/20 11:15 SAK (Rec: 06/05/20 16:34 [facility] [id number]) Current Condition History of Current Condition Onset Date 2014 Current Complaints weakness, requires assistance with all mobility and household tasks History of Current Condition Reports that she suffered a stroke in 2014 after surgery for brain aneurysm. CVA caused weakness on the left side of her body, gait and balance difficulty, seizures. PT-OP-C Subjective Start: 05/28/19 08:11 Freq: Status: Active Protocol: Document 08/03/22 11:16 SAK (Rec: 08/03/22 12:14 [facility] [id number]) OP-PT Subjective Patient Comments Patient Comments Hoping to get new AFO in about a month. No caregiver today, came in w/c in bus PT-OP-D Balance Start: 05/28/19 08:11 Freq: Status: Active Protocol: Document 05/29/19 14:30 SAK (Rec: 05/30/19 14:24 [facility] [id number]) OP-PT Balance Assessment Sitting Balance Static Sitting Balance Ability Good Dynamic Sitting Balance Ability Fair Standing Balance Static Standing Balance Ability Good Dynamic Standing Balance Ability Fair Device Used hemiwalker right Tinetti Balance Assessment Sitting Balance Sitting Balance Steady, safe Arising from Chair Attempts to Arise Able, requires >1 attempt Standing Balance Immediate Standing Balance Steady with support Standing Balance Steady, wide stance Nudged Response Begins to fall Standing with Eyes Closed Unsteady Turning Step Pattern Turning 360 Degrees Discontinuous steps Stability Turning 360 Degrees Unsteady, grabs/staggers Sitting Down Sitting Down Uses arms or unsteady Gait and Step Initiation of Gait Hesitancy, mult. attempts Right Foot Step Length Does not pass stance ft. Right Foot Step Height Does not clear floor Left Foot Step Length Does not pass stance foot Left Foot Step Height Does not clear floor Step Description Step Symmetry Step length not equal Gait Description Path Description Mild/moderate deviation Trunk Description Marked sway or uses aide Walking Stance Heels apart Scoring and Interpretation Tinetti Composite Score (points) 6 Interpretation of Scores High risk for falls(< 19) Herrera Fall Scale Copyright Permission PT-OP-E Functional Tests Start: 05/28/19 08:11 Freq: Status: Active Protocol: Document 05/14/21 10:50 [facility] (Rec: 05/14/21 11:08 [facility] [id number]) Functional Tests 6 Minute Walk Test Distance 169ft Device Used spc, TB wrapping Comments pt has headache today and feels that may have slowed her down. Timed Up and Go (TUG) Score 107 seconds PT-OP-G Mobility & Gait Start: 05/28/19 08:11 Freq: Status: Active Protocol: Document 05/26/20 11:15 SAK (Rec: 05/26/20 17:04 [facility] [id number]) OP Mobility Evaluation Bed Mobility Rolling min assist to right CGA to left Supine to and from Sit min assist to right CGA to left Transfers Sit to Stand CGA to min assist without UE use Bed to Chair Transfers requires use of right UE but able to do with SBA Floor Transfers unable PT-OP-H Neuro Start: 05/28/19 08:11 Freq: Status: Active Protocol: Document 05/29/19 14:30 SAK (Rec: 05/30/19 14:24 [facility] [id number]) Sensation Evaluation Gross Sensation Gross Sensation Left UE Impaired,Left LE Impaired Sensation Description Paresthesia,Numbness Coordination Evaluation Lower Extremity Tests Left Alternate Heel to Knee; Heel to Toe Test Moderate Impairment Heel on Boles Test Moderate Impairment Foot Tapping Test Moderate Impairment PT-OP-K Range of Motion Start: 05/28/19 08:11 Freq: Status: Active Protocol: Document 05/26/20 11:15 SAK (Rec: 05/26/20 17:04 [facility] [id number]) Hip Goniometric Range of Motion Hip jake Hip ROM WFL Yes Comments actively right LE, passively left LE Knee Goniometric Range of Motion Knee jake Knee ROM WFL Yes Ankle and Foot Goniometric Range of Motion Ankle and Foot Left Passive Ankle/Foot ROM WFL No Left Active Ankle/Foot ROM WFL No PT-OP-M Strength Start: 05/28/19 08:11 Freq: Status: Active Protocol: Document 05/26/20 11:15 [facility] (Rec: 05/26/20 17:04 [facility] [id number]) Hip Strength Hip Manual Muscle Testing Left Flexion (L2) 3- Fair- Extension (S1) 2 Poor Abduction 2+ Poor+ External Rotation 3- Fair- Internal Rotation 3+ Fair+ Right Flexion (L2) 4 Good Extension (S1) 4- Good- Abduction 4 Good External Rotation 3+ Fair+ Internal Rotation 4- Good- PT-OP-Q Treatments Start: 05/28/19 08:11 Freq: Status: Active Protocol: Document 08/03/22 11:16 [facility] (Rec: 08/03/22 12:14 [facility] [id number]) Therapeutic Exercises Sitting Exercises IT band stretch Side left Reps/Minutes 1min HS stretch Reps/Minutes 1 min Comments manual HC stretch Sitting Exercise Name PROM Side left Equipment Used manual Reps/Minutes 30 x 4 LAQ Side left Resistance AROM Equipment Used 18 chair Reps/Minutes 10x Comments with manual resistance Gait Training Gait Activity wt acceptance Comments mirror for visual feedback- worked w/PT helping dec knee hyperext; PT helped pt get into better knee position and gave min A as pt wt shifted to maintain better knee positioning for better wt acceptance and pt went into SLS on LLE w/R rail x5 forward gait at rail Description Forward with no AFO Level of Assistance CGA Surface firm, mirror front for trunk alignment Distance/Duration 10 ft Treatment Focus WB into LLE, dynamic balance Comments CG support on right rail, cues for weight-shift left, bigger step right. 1 Description level surface Device Used no cane or AFO Level of Assistance CGA, cues Surface indoor carpet Distance/Duration 8' x 1, 10' x 1 Treatment Focus cues for wt shift, soft knee Self-Care/Home Management Treatment Education Other Education continue standing, shallow squats and small steps at home without AFO PT-OP-T Assessment and Plan Start: 05/28/19 08:11 Freq: Status: Active Protocol: Document 08/03/22 11:16 [facility] (Rec: 08/03/22 12:14 [facility] [id number]) Physical Therapy Assessment Goals Five Impairment gait speed not adequate for safe community ambulation Certified Medical Coder Goal (LTG) Patient able to ambulate 300' in 6 min. TUG score no greater than 30 sec 06/02/20: 134' 08/28/20: 144', likely not as high due to new shoes and wearing old AFO because fits better in new shoes. Requires level 4 theraband for derotation of left LE into more neutral position for gait . 09/19/20: 146 ft 6 min w/ QC and Tb wrapping to LLE. 11/13/20: 153 ft CG w/ SPC 2>3 pt gait w/out metronome w/ reported L glut/ lateral leg burn pain, 2 step brief stand breaks. 11/24/20: progressing 173.7 ft using SPC, predominently 2 pt gait. TUG score 59 sec using SP 01/27/21: TUG 55 sec. , 6 min walk test 199.9 ft with SPC 03/19/21: 6 min walk test 165' , TUG 1:20. Continue with use of theraband for derotation of excess ER left LE with gait . 04/16/21: 6MWT 190 ft w/ SPC and TB wrapping assist hip IR. 04/23/21: 6MWT 181 ftw/ SPC and TB wrapping 06/25/21: 6MWT 180 ft with SPC and TB wrapping. TU sec 09/16/21 - average gait speed 0 .14 m/s on 6MWT which pt completed with no AD (AFO only ). 12/23/21: most recent 6 min walk test 159 ft with no theraband derotation wrap and no assistive device 06/14/22: LTG Duration 09/11/22 Four Impairment requires assistance with bed mobility and transfers Short Term Goal (STG) Patient will be able to perform all bed mobility independently to improve her functional independence. 10/31/19: good goal progress 06/02/20:inconsistent, but min assist most times 11/24/20: Met goal: pt is independent in supine>sit. STG Duration goal met Senior Care Goal (LTG) Patient will be able to perform a floor transfer with SB to min assist. 5x sit to stand score in no more than 15 sec as measure of functional strength for transfers 10/31/19: max assist today 01/02/20: has not been willing to try since 10/31/19 06/02/21: does not feel strong enough to try yet. 06/25/21: 08/28/20: max assistance required 12/02/20: remains at max assist , not recently willing to attempt floor transfer. 5x sit to stand score 26 seconds 01/27/21: not tried recently. 03/24/21: 5x sit to stand 25 sec. No floor transfer today 06/25/21: 5x sit to stand 24 sec. Patient didn't feel up to doing floor transfer, remains a concern 09/16/21: Pt willing to work on floor transfers but demonstrates a great deal of fear avoidance. 12/23/21: 5 Time Sit to Stand today in 30.4 seconds from standard height chair with no use of RUE 06/14/22 LTG Duration 09/11/22 Three Impairment weakness left UE and LE s/p CVA Certified Medical Coder Goal (LTG) Improve functional strength in left LE, as evidenced by ability to move from sit > < stand without use of UE's. 10/31/19: OT starts tomorrow. Good progress with sit to stand, though mostly using right UE and LE 01/02/20: Improving ability to perform, able to increase weight-bearing through left LE with cues, but still some use of right UE 05/26/20: With manual and visual feedback patient able to transfer sit to stand with only CG A. 08/28/20: inconsistent ability to move sit to stand without using UE's, but able to do transfer without physical assistance 11/24/20: Goal Met 01/27/21: more difficulty recently, having to use hands. Goal reactivated. 03/24/21: difficulty motor planning and performing sit to stand today. 06/25/21: patient becomes frustrated with sit to stand transfers as she expresses she feels she has a hard time remembering how to do it, has to use right UE 09/16/21 Pt completes sit to stand x 5 today without use of RUE from std height chair. LTG Duration goal met Two Impairment balance dysfunction with high risk for falls Senior Care Goal (LTG) Improve balance as evidenced by improvement in Tinnetti balance and gait score to low fall risk range to improve safety in the home and community. 10/31/19: remains high risk for falls 01/02/20: some improvement but still in high risk category 05/26/20: Tinetti score in high risk category 08/28/20: moderate risk for falls 12/02/20: remains in moderate risk for falls. 01/27/21: moderate risk for falls 03/24/21: no significant change noted today but again having poor day. 06/25/21: Moderate risk for falls, though no reported falls over past few months. 09/16/21 No change 12/23/21: improved by 3 points 03/16/22: no further change this treatment period 06/14/22 Tinetti gait and balance score LTG Duration 09/11/22 One Impairment requires armaan-walker for gait, limited to household gait Certified Medical Coder Goal (LTG) Patient able to ambulate with least restrictive device for functional community distances to improve her functional independence and quality of life. 10/30/19: no progress due to Covid 19. 11/02/19: able to ambulate with quad cane but with very slow speed, household distances, very short community distances . 05/26/20: Now able to ambulate with use of single point cane and use of L4 theraband wrapped around left LE to facilitate left LE internal rotation for improved alignment. Patient unable to don the theraband on her own. Gait is for short distances and very slow at 39 ft in 2 min. 08/28/20: has demonstrated improved gait ability, still using theraband for derotation of LE for more neutral position. Able to consistenly use quad cane and is increasing stride length especially with cues. Now able to ascend and descend 4 stairs with min assist using railing. Mod assist on 6 stairs. 12/02/20: Patient ambulating with SPC, mostly household but some community distances, improved gait alignment with use of theraband for improved alignment. Patient not consistently able to ambulate community distances due to pain in her left LE, and lack of neurological control left LE. Patient may benefit from modification to her current AFO or fabrication of new AFO. 173 ft in 6 minutes 01/27/21: using SPC. Limitations due to left foot, knee and hip pain, right wrist pain 6 min walk test improved to 199.9 feet today 03/24/21: slower 6 min walk test today as above. Has had modification to her AFO with some improvement in her function, but had poor day today. 06/25/21: 180' on 6 min walk test, patient reports left knee feeling wonky, and right UE still painful due to surgery' having stitches out today. Also c/o lack of caregiver recently has limited her walking, no outings. Will try again next session. 09/16/21: Pt completes 6MWT without cane today/ Average gait speed 0.14 12/23/21: Adelaide is now able to ambulate indoors with no assistive device. Outdoors on level surfaces with no device with CGA, uneven surfaces requires cane and CG to mod assist. Continues to improve. 03/16/22: No improvement in speed, though patient continues to be able to ambulate without device most of the time in PT though doesn 't do at home due to fear. Improved confidence on compliant surface in clinic with ability to do without device. 06/14/22: patient progressing with gait without device though ability variability depending on tone and musculoskeletal pain. Today able to ambulate 10 ft with cane but no AFO but difficulty due to lack of knee control/hyperextension at knee in weight-bearing. potential for further improvement. LTG Duration 09/11/22 Assessment Summary Assessment Much encouragement required today for standing weight shifts and gait without AFO, patient upset about caregiver situation, unsure when will have new caregiver. C/o tightness and pain jake LE's, cues for weight shift to left with soft knee , offload right for dec pain. Physical Therapy Plan Frequency and Duration Frequency of Treatment 2x/Week Duration of treatment (weeks) 12 Plan of Care Start Date 06/14/22 Plan of Care End Date 09/11/22 Therapeutic Interventions Therapeutic Interventions Aquatic Therapy,Balance Training,Gait Training,Home Exercise Program,Neuromuscular Re-education,Orthotic/ Prosthetic Management,Patient/ Caregiver Education,Self-Care/ Home Management,Taping, Therapeutic Activities, Therapeutic Exercises Modalities Cold Pack/Ice Massage,Hot Packs Next Visit Focus/Plan Next Note Type Treatment Note Next Visit Plan Continue PT, emphasis on weight acceptance left LE, SLS as able. Mirror for visual feedback with standing, gait.
--- NOTE | 2022-08-05 08:10 | PT-OP ANOTE ---
cancelled via [facility]
--- NOTE | 2022-08-09 12:20 | PT.OTN ---
Current Diagnoses Difficulty in walking, not elsewhere classified (08/09/22) Weakness (08/09/22) History of falling (08/09/22) Physical Therapy Treatment Note PT-OP-A Visit Information Start: 05/28/19 08:11 Freq: Status: Active Protocol: Document 08/09/22 11:19 [facility] (Rec: 08/09/22 12:09 [facility] [id number]) Out-Patient Physical Therapy Visit Information Visit Information Visit Type Treatment Note Visit Start Time 11:19 PT-OP-B Current Condition Start: 05/28/19 08:11 Freq: Status: Active Protocol: Document 06/04/20 11:15 [facility] (Rec: 06/05/20 16:34 [facility] [id number]) Current Condition History of Current Condition Onset Date 2014 Current Complaints weakness, requires assistance with all mobility and household tasks History of Current Condition Reports that she suffered a stroke in 2014 after surgery for brain aneurysm. CVA caused weakness on the left side of her body, gait and balance difficulty, seizures. PT-OP-C Subjective Start: 05/28/19 08:11 Freq: Status: Active Protocol: Document 08/09/22 11:19 [facility] (Rec: 08/09/22 12:15 [facility] [id number]) OP-PT Subjective Patient Comments Patient Comments States she worked really hard on standing and weight shifting over the weekend. Feels ready to turn a corner. Saw Dr. Valdez last Tuesday, felt pain and tightness improved but came back after a walk. Has new caregiver. PT-OP-D Balance Start: 05/28/19 08:11 Freq: Status: Active Protocol: Document 05/29/19 14:30 [facility] (Rec: 05/30/19 14:24 [facility] [id number]) OP-PT Balance Assessment Sitting Balance Static Sitting Balance Ability Good Dynamic Sitting Balance Ability Fair Standing Balance Static Standing Balance Ability Good Dynamic Standing Balance Ability Fair Device Used hemiwalker right Tinetti Balance Assessment Sitting Balance Sitting Balance Steady, safe Arising from Chair Attempts to Arise Able, requires >1 attempt Standing Balance Immediate Standing Balance Steady with support Standing Balance Steady, wide stance Nudged Response Begins to fall Standing with Eyes Closed Unsteady Turning Step Pattern Turning 360 Degrees Discontinuous steps Stability Turning 360 Degrees Unsteady, grabs/staggers Sitting Down Sitting Down Uses arms or unsteady Gait and Step Initiation of Gait Hesitancy, mult. attempts Right Foot Step Length Does not pass stance ft. Right Foot Step Height Does not clear floor Left Foot Step Length Does not pass stance foot Left Foot Step Height Does not clear floor Step Description Step Symmetry Step length not equal Gait Description Path Description Mild/moderate deviation Trunk Description Marked sway or uses aide Walking Stance Heels apart Scoring and Interpretation Tinetti Composite Score (points) 6 Interpretation of Scores High risk for falls(< 19) Herrera Fall Scale Copyright Permission PT-OP-E Functional Tests Start: 05/28/19 08:11 Freq: Status: Active Protocol: Document 05/14/21 10:50 [facility] (Rec: 05/14/21 11:08 [facility] [id number]) Functional Tests 6 Minute Walk Test Distance 169ft Device Used spc, TB wrapping Comments pt has headache today and feels that may have slowed her down. Timed Up and Go (TUG) Score 107 seconds PT-OP-G Mobility & Gait Start: 05/28/19 08:11 Freq: Status: Active Protocol: Document 05/26/20 11:15 [facility] (Rec: 05/26/20 17:04 [facility] [id number]) OP Mobility Evaluation Bed Mobility Rolling min assist to right CGA to left Supine to and from Sit min assist to right CGA to left Transfers Sit to Stand CGA to min assist without UE use Bed to Chair Transfers requires use of right UE but able to do with SBA Floor Transfers unable PT-OP-H Neuro Start: 05/28/19 08:11 Freq: Status: Active Protocol: Document 05/29/19 14:30 [facility] (Rec: 05/30/19 14:24 [facility] [id number]) Sensation Evaluation Gross Sensation Gross Sensation Left UE Impaired,Left LE Impaired Sensation Description Paresthesia,Numbness Coordination Evaluation Lower Extremity Tests Left Alternate Heel to Knee; Heel to Toe Test Moderate Impairment Heel on Boles Test Moderate Impairment Foot Tapping Test Moderate Impairment PT-OP-K Range of Motion Start: 05/28/19 08:11 Freq: Status: Active Protocol: Document 05/26/20 11:15 [facility] (Rec: 05/26/20 17:04 [facility] [id number]) Hip Goniometric Range of Motion Hip jake Hip ROM WFL Yes Comments actively right LE, passively left LE Knee Goniometric Range of Motion Knee jake Knee ROM WFL Yes Ankle and Foot Goniometric Range of Motion Ankle and Foot Left Passive Ankle/Foot ROM WFL No Left Active Ankle/Foot ROM WFL No PT-OP-M Strength Start: 05/28/19 08:11 Freq: Status: Active Protocol: Document 05/26/20 11:15 [facility] (Rec: 05/26/20 17:04 [facility] [id number]) Hip Strength Hip Manual Muscle Testing Left Flexion (L2) 3- Fair- Extension (S1) 2 Poor Abduction 2+ Poor+ External Rotation 3- Fair- Internal Rotation 3+ Fair+ Right Flexion (L2) 4 Good Extension (S1) 4- Good- Abduction 4 Good External Rotation 3+ Fair+ Internal Rotation 4- Good- PT-OP-Q Treatments Start: 05/28/19 08:11 Freq: Status: Active Protocol: Document 08/09/22 11:19 [facility] (Rec: 08/09/22 12:09 [facility] [id number]) Gym Equipment Shuttle Recovery Unilateral Squats Details cued quad facilitation, support prevent hyperextension Resistance 25# Reps/Time 2x10, Bilateral Squats Details cued L heel press LLE into extension w/ adduction alignment with toes Resistance 50# Reps/Time 2x10 Therapeutic Exercises Supine Exercises ITband stretch Reps/Minutes 2x30 Comments manual, ed of caregiver piriformis stretch Reps/Minutes 2x Comments passive gastroc stretch Supine Exercise Name manual stretch calf Side left Comments instructed caregiver Gait Training Gait Activity gait with AFO Device Used none Surface firm Distance/Duration 138 Treatment Focus balance, safety Comments improved weight shift left wt acceptance Comments mirror for visual feedback- worked w/PT helping dec knee hyperext; PT helped pt get into better knee position and gave min A as pt wt shifted to maintain better knee positioning for better wt acceptance and pt went into SLS on LLE w/R rail x5 pre-gait weight shifts Description side to side, stride stance without AFO Device Used none Level of Assistance CG, verbal cues Surface firm Distance/Duration rail on R Treatment Focus increased weight bearing left LE (cued >50-75%) Comments mirror for visual feedback- worked w/PT helping dec knee hyperext; PT helped pt get into better knee position and gave min A as pt wt shifted to maintain better knee positioning for better wt acceptance x13 min 1 Description level surface Device Used no cane or AFO Level of Assistance CGA, cues Surface indoor carpet Distance/Duration 6ft x 2 Treatment Focus cues for wt shift, soft knee PT-OP-T Assessment and Plan Start: 05/28/19 08:11 Freq: Status: Active Protocol: Document 08/09/22 11:19 [facility] (Rec: 08/09/22 12:09 [facility] [id number]) Physical Therapy Assessment Goals Five Impairment gait speed not adequate for safe community ambulation Half-Way Goal (LTG) Patient able to ambulate 300' in 6 min. TUG score no greater than 30 sec 06/02/20: 134' 08/28/20: 144', likely not as high due to new shoes and wearing old AFO because fits better in new shoes. Requires level 4 theraband for derotation of left LE into more neutral position for gait . 09/19/20: 146 ft 6 min w/ QC and Tb wrapping to LLE. 11/13/20: 153 ft CG w/ SPC 2>3 pt gait w/out metronome w/ reported L glut/ lateral leg burn pain, 2 step brief stand breaks. 11/24/20: progressing 173.7 ft using SPC, predominently 2 pt gait. TUG score 59 sec using SP 01/27/21: TUG 55 sec. , 6 min walk test 199.9 ft with SPC 03/19/21: 6 min walk test 165' , TUG 1:20. Continue with use of theraband for derotation of excess ER left LE with gait . 04/16/21: 6MWT 190 ft w/ SPC and TB wrapping assist hip IR. 04/23/21: 6MWT 181 ftw/ SPC and TB wrapping 06/25/21: 6MWT 180 ft with SPC and TB wrapping. TU sec 09/16/21 - average gait speed 0 .14 m/s on 6MWT which pt completed with no AD (AFO only ). 12/23/21: most recent 6 min walk test 159 ft with no theraband derotation wrap and no assistive device 06/14/22: LTG Duration 09/11/22 Four Impairment requires assistance with bed mobility and transfers Short Term Goal (STG) Patient will be able to perform all bed mobility independently to improve her functional independence. 10/31/19: good goal progress 06/02/20:inconsistent, but min assist most times 11/24/20: Met goal: pt is independent in supine>sit. STG Duration goal met Half-Way Goal (LTG) Patient will be able to perform a floor transfer with SB to min assist. 5x sit to stand score in no more than 15 sec as measure of functional strength for transfers 10/31/19: max assist today 01/02/20: has not been willing to try since 10/31/19 06/02/21: does not feel strong enough to try yet. 06/25/21: 08/28/20: max assistance required 12/02/20: remains at max assist , not recently willing to attempt floor transfer. 5x sit to stand score 26 seconds 01/27/21: not tried recently. 03/24/21: 5x sit to stand 25 sec. No floor transfer today 06/25/21: 5x sit to stand 24 sec. Patient didn't feel up to doing floor transfer, remains a concern 09/16/21: Pt willing to work on floor transfers but demonstrates a great deal of fear avoidance. 12/23/21: 5 Time Sit to Stand today in 30.4 seconds from standard height chair with no use of RUE 06/14/22 LTG Duration 09/11/22 Three Impairment weakness left UE and LE s/p CVA Half-Way Goal (LTG) Improve functional strength in left LE, as evidenced by ability to move from sit > < stand without use of UE's. 10/31/19: OT starts tomorrow. Good progress with sit to stand, though mostly using right UE and LE 01/02/20: Improving ability to perform, able to increase weight-bearing through left LE with cues, but still some use of right UE 05/26/20: With manual and visual feedback patient able to transfer sit to stand with only CG A. 08/28/20: inconsistent ability to move sit to stand without using UE's, but able to do transfer without physical assistance 11/24/20: Goal Met 01/27/21: more difficulty recently, having to use hands. Goal reactivated. 03/24/21: difficulty motor planning and performing sit to stand today. 06/25/21: patient becomes frustrated with sit to stand transfers as she expresses she feels she has a hard time remembering how to do it, has to use right UE 09/16/21 Pt completes sit to stand x 5 today without use of RUE from std height chair. LTG Duration goal met Two Impairment balance dysfunction with high risk for falls Birth Attendant Goal (LTG) Improve balance as evidenced by improvement in Tinnetti balance and gait score to low fall risk range to improve safety in the home and community. 10/31/19: remains high risk for falls 01/02/20: some improvement but still in high risk category 05/26/20: Tinetti score in high risk category 08/28/20: moderate risk for falls 12/02/20: remains in moderate risk for falls. 01/27/21: moderate risk for falls 03/24/21: no significant change noted today but again having poor day. 06/25/21: Moderate risk for falls, though no reported falls over past few months. 09/16/21 No change 12/23/21: improved by 3 points 03/16/22: no further change this treatment period 06/14/22 Tinetti gait and balance score LTG Duration 09/11/22 One Impairment requires armaan-walker for gait, limited to household gait Half-Way Goal (LTG) Patient able to ambulate with least restrictive device for functional community distances to improve her functional independence and quality of life. 10/30/19: no progress due to Covid 19. 11/02/19: able to ambulate with quad cane but with very slow speed, household distances, very short community distances . 05/26/20: Now able to ambulate with use of single point cane and use of L4 theraband wrapped around left LE to facilitate left LE internal rotation for improved alignment. Patient unable to don the theraband on her own. Gait is for short distances and very slow at 39 ft in 2 min. 08/28/20: has demonstrated improved gait ability, still using theraband for derotation of LE for more neutral position. Able to consistenly use quad cane and is increasing stride length especially with cues. Now able to ascend and descend 4 stairs with min assist using railing. Mod assist on 6 stairs. 12/02/20: Patient ambulating with SPC, mostly household but some community distances, improved gait alignment with use of theraband for improved alignment. Patient not consistently able to ambulate community distances due to pain in her left LE, and lack of neurological control left LE. Patient may benefit from modification to her current AFO or fabrication of new AFO. 173 ft in 6 minutes 01/27/21: using SPC. Limitations due to left foot, knee and hip pain, right wrist pain 6 min walk test improved to 199.9 feet today 03/24/21: slower 6 min walk test today as above. Has had modification to her AFO with some improvement in her function, but had poor day today. 06/25/21: 180' on 6 min walk test, patient reports left knee feeling wonky, and right UE still painful due to surgery' having stitches out today. Also c/o lack of caregiver recently has limited her walking, no outings. Will try again next session. 09/16/21: Pt completes 6MWT without cane today/ Average gait speed 0.14 12/23/21: Adelaide is now able to ambulate indoors with no assistive device. Outdoors on level surfaces with no device with CGA, uneven surfaces requires cane and CG to mod assist. Continues to improve. 03/16/22: No improvement in speed, though patient continues to be able to ambulate without device most of the time in PT though doesn 't do at home due to fear. Improved confidence on compliant surface in clinic with ability to do without device. 06/14/22: patient progressing with gait without device though ability variability depending on tone and musculoskeletal pain. Today able to ambulate 10 ft with cane but no AFO but difficulty due to lack of knee control/hyperextension at knee in weight-bearing. potential for further improvement. LTG Duration 09/11/22 Assessment Summary Assessment Patient demonstrated improved weight shifting, and increased distance with gait with AFO but no cane. Gait without AFO not attempted until end of session, patient fatigued. Improved HEP compliance evident. Physical Therapy Plan Frequency and Duration Frequency of Treatment 2x/Week Duration of treatment (weeks) 12 Plan of Care Start Date 06/14/22 Plan of Care End Date 09/11/22 Therapeutic Interventions Therapeutic Interventions Aquatic Therapy,Balance Training,Gait Training,Home Exercise Program,Neuromuscular Re-education,Orthotic/ Prosthetic Management,Patient/ Caregiver Education,Self-Care/ Home Management,Taping, Therapeutic Activities, Therapeutic Exercises Modalities Cold Pack/Ice Massage,Hot Packs Next Visit Focus/Plan Next Note Type Treatment Note Next Visit Plan Continue PT, emphasis on weight acceptance left LE, SLS as able. Mirror for visual feedback with standing, gait. 6 min walk test with AFO, no cane.
--- NOTE | 2022-08-11 12:09 | PT.OTN ---
Current Diagnoses Difficulty in walking, not elsewhere classified (08/11/22) Weakness (08/11/22) History of falling (08/11/22) Physical Therapy Treatment Note PT-OP-A Visit Information Start: 05/28/19 08:11 Freq: Status: Active Protocol: Document 08/11/22 11:17 SAK (Rec: 08/11/22 12:09 [facility] [id number]) Out-Patient Physical Therapy Visit Information Visit Information Visit Type Treatment Note Visit Start Time 11:18 Visit Stop Time 12:00 Total Visit Minutes 42 Visit Number [id number] PT-OP-B Current Condition Start: 05/28/19 08:11 Freq: Status: Active Protocol: Document 06/04/20 11:15 SAK (Rec: 06/05/20 16:34 [facility] [id number]) Current Condition History of Current Condition Onset Date 2014 Current Complaints weakness, requires assistance with all mobility and household tasks History of Current Condition Reports that she suffered a stroke in 2014 after surgery for brain aneurysm. CVA caused weakness on the left side of her body, gait and balance difficulty, seizures. PT-OP-C Subjective Start: 05/28/19 08:11 Freq: Status: Active Protocol: Document 08/11/22 11:17 SAK (Rec: 08/11/22 12:09 [facility] [id number]) OP-PT Subjective Patient Comments Patient Comments sore right hip and left anterior rivera. PT-OP-D Balance Start: 05/28/19 08:11 Freq: Status: Active Protocol: Document 05/29/19 14:30 SAK (Rec: 05/30/19 14:24 [facility] [id number]) OP-PT Balance Assessment Sitting Balance Static Sitting Balance Ability Good Dynamic Sitting Balance Ability Fair Standing Balance Static Standing Balance Ability Good Dynamic Standing Balance Ability Fair Device Used [facility] right Tinetti Balance Assessment Sitting Balance Sitting Balance Steady, safe Arising from Chair Attempts to Arise Able, requires >1 attempt Standing Balance Immediate Standing Balance Steady with support Standing Balance Steady, wide stance Nudged Response Begins to fall Standing with Eyes Closed Unsteady Turning Step Pattern Turning 360 Degrees Discontinuous steps Stability Turning 360 Degrees Unsteady, grabs/staggers Sitting Down Sitting Down Uses arms or unsteady Gait and Step Initiation of Gait Hesitancy, mult. attempts Right Foot Step Length Does not pass stance ft. Right Foot Step Height Does not clear floor Left Foot Step Length Does not pass stance foot Left Foot Step Height Does not clear floor Step Description Step Symmetry Step length not equal Gait Description Path Description Mild/moderate deviation Trunk Description Marked sway or uses aide Walking Stance Heels apart Scoring and Interpretation Tinetti Composite Score (points) 6 Interpretation of Scores High risk for falls(< 19) Herrera Fall Scale Copyright Permission PT-OP-E Functional Tests Start: 05/28/19 08:11 Freq: Status: Active Protocol: Document 05/14/21 10:50 [facility] (Rec: 05/14/21 11:08 [facility] [id number]) Functional Tests 6 Minute Walk Test Distance 169ft Device Used spc, TB wrapping Comments pt has headache today and feels that may have slowed her down. Timed Up and Go (TUG) Score 107 seconds PT-OP-G Mobility & Gait Start: 05/28/19 08:11 Freq: Status: Active Protocol: Document 05/26/20 11:15 [facility]AK (Rec: 05/26/20 17:04 [facility] [id number]) OP Mobility Evaluation Bed Mobility Rolling min assist to right CGA to left Supine to and from Sit min assist to right CGA to left Transfers Sit to Stand CGA to min assist without UE use Bed to Chair Transfers requires use of right UE but able to do with SBA Floor Transfers unable PT-OP-H Neuro Start: 05/28/19 08:11 Freq: Status: Active Protocol: Document 05/29/19 14:30 SAK (Rec: 05/30/19 14:24 [facility] [id number]) Sensation Evaluation Gross Sensation Gross Sensation Left UE Impaired,Left LE Impaired Sensation Description Paresthesia,Numbness Coordination Evaluation Lower Extremity Tests Left Alternate Heel to Knee; Heel to Toe Test Moderate Impairment Heel on Rivera Test Moderate Impairment Foot Tapping Test Moderate Impairment PT-OP-K Range of Motion Start: 05/28/19 08:11 Freq: Status: Active Protocol: Document 05/26/20 11:15 [facility] (Rec: 05/26/20 17:04 [facility] [id number]) Hip Goniometric Range of Motion Hip jake Hip ROM WFL Yes Comments actively right LE, passively left LE Knee Goniometric Range of Motion Knee jake Knee ROM WFL Yes Ankle and Foot Goniometric Range of Motion Ankle and Foot Left Passive Ankle/Foot ROM WFL No Left Active Ankle/Foot ROM WFL No PT-OP-M Strength Start: 05/28/19 08:11 Freq: Status: Active Protocol: Document 05/26/20 11:15 [facility] (Rec: 05/26/20 17:04 [facility] [id number]) Hip Strength Hip Manual Muscle Testing Left Flexion (L2) 3- Fair- Extension (S1) 2 Poor Abduction 2+ Poor+ External Rotation 3- Fair- Internal Rotation 3+ Fair+ Right Flexion (L2) 4 Good Extension (S1) 4- Good- Abduction 4 Good External Rotation 3+ Fair+ Internal Rotation 4- Good- PT-OP-Q Treatments Start: 05/28/19 08:11 Freq: Status: Active Protocol: Document 08/11/22 11:17 [facility] (Rec: 08/11/22 12:09 [facility] [id number]) Cardio Equipment Recumbent Stepper (Sci-Fit) Duration (Minutes) 10 Resistance 2 Seat Position 9 Other no AFO; cues for left LE alignment, , 10' 1.21 mi Treadmill Other per pt request looked at treadmill to consider trial Other Cardio Equipment Other Cardio Equipment patient shown treadmill, slowest speed, discussed safe use with PT trial next session Therapeutic Exercises Sitting Exercises IT band stretch Side left Reps/Minutes 1min pirifomis stretch Reps/Minutes 1 min Comments manual HS stretch Reps/Minutes 1 min Comments manual HC stretch Sitting Exercise Name PROM Side left Equipment Used manual Reps/Minutes 30 x 4 Standing Exercises sit stands w/ AFO donned Standing Exercise Name no RUE assist, no AFO Equipment Used from black tx table 19 Reps/Minutes 2x8 Comments verbal and manual cues for LLE positioning, weight shift toward left Gait Training Gait Activity gait with AFO Device Used none Surface firm Distance/Duration 138 Treatment Focus balance, safety Comments improved weight shift left wt acceptance Comments mirror for visual feedback- worked w/PT helping dec knee hyperext; PT helped pt get into better knee position and gave min A as pt wt shifted to maintain better knee positioning for better wt acceptance and pt went into SLS on LLE w/R rail x5 6 min walk test Description AFO only Level of Assistance SBA- CGA Surface firm Distance/Duration 182'/6 min Comments Pt reaches for wall 4 times during six minutes but does not lean on it. No cane. Distracted and talking more due to losing caregiver. pre-gait weight shifts Description side to side, stride stance without AFO Device Used none Level of Assistance CG, verbal cues Surface firm Distance/Duration rail on R Treatment Focus increased weight bearing left LE (cued >50-75%) Comments mirror for visual feedback- worked w/PT helping dec knee hyperext; PT helped pt get into better knee position and gave min A as pt wt shifted to maintain better knee positioning for better wt acceptance x13 min Self-Care/Home Management Treatment Education Other Education increas walking at home with new caregiver PT-OP-T Assessment and Plan Start: 05/28/19 08:11 Freq: Status: Active Protocol: Document 08/11/22 11:17 [facility] (Rec: 08/11/22 12:09 [facility] [id number]) Physical Therapy Assessment Goals Five Impairment gait speed not adequate for safe community ambulation Custodial Goal (LTG) Patient able to ambulate 300' in 6 min. TUG score no greater than 30 sec 06/02/20: 134' 08/28/20: 144', likely not as high due to new shoes and wearing old AFO because fits better in new shoes. Requires level 4 theraband for derotation of left LE into more neutral position for gait . 09/19/20: 146 ft 6 min w/ QC and Tb wrapping to LLE. 11/13/20: 153 ft CG w/ SPC 2>3 pt gait w/out metronome w/ reported L glut/ lateral leg burn pain, 2 step brief stand breaks. 11/24/20: progressing 173.7 ft using SPC, predominently 2 pt gait. TUG score 59 sec using SP 01/27/21: TUG 55 sec. , 6 min walk test 199.9 ft with SPC 03/19/21: 6 min walk test 165' , TUG 1:20. Continue with use of theraband for derotation of excess ER left LE with gait . 04/16/21: 6MWT 190 ft w/ SPC and TB wrapping assist hip IR. 04/23/21: 6MWT 181 ftw/ SPC and TB wrapping 06/25/21: 6MWT 180 ft with SPC and TB wrapping. TU sec 09/16/21 - average gait speed 0 .14 m/s on 6MWT which pt completed with no AD (AFO only ). 12/23/21: most recent 6 min walk test 159 ft with no theraband derotation wrap and no assistive device 2/6/23: LTG Duration 09/11/22 Four Impairment requires assistance with bed mobility and transfers Short Term Goal (STG) Patient will be able to perform all bed mobility independently to improve her functional independence. 10/31/19: good goal progress 06/02/20:inconsistent, but min assist most times 11/24/20: Met goal: pt is independent in supine>sit. STG Duration goal met Custodial Goal (LTG) Patient will be able to perform a floor transfer with SB to min assist. 5x sit to stand score in no more than 15 sec as measure of functional strength for transfers 10/31/19: max assist today 01/02/20: has not been willing to try since 10/31/19 06/02/21: does not feel strong enough to try yet. 06/25/21: 08/28/20: max assistance required 12/02/20: remains at max assist , not recently willing to attempt floor transfer. 5x sit to stand score 26 seconds 01/27/21: not tried recently. 03/24/21: 5x sit to stand 25 sec. No floor transfer today 06/25/21: 5x sit to stand 24 sec. Patient didn't feel up to doing floor transfer, remains a concern 09/16/21: Pt willing to work on floor transfers but demonstrates a great deal of fear avoidance. 12/23/21: 5 Time Sit to Stand today in 30.4 seconds from standard height chair with no use of RUE 06/14/22 LTG Duration 09/11/22 Three Impairment weakness left UE and LE s/p CVA Lacer And Tier Goal (LTG) Improve functional strength in left LE, as evidenced by ability to move from sit > < stand without use of UE's. 10/31/19: OT starts tomorrow. Good progress with sit to stand, though mostly using right UE and LE 01/02/20: Improving ability to perform, able to increase weight-bearing through left LE with cues, but still some use of right UE 05/26/20: With manual and visual feedback patient able to transfer sit to stand with only CG A. 08/28/20: inconsistent ability to move sit to stand without using UE's, but able to do transfer without physical assistance 11/24/20: Goal Met 01/27/21: more difficulty recently, having to use hands. Goal reactivated. 03/24/21: difficulty motor planning and performing sit to stand today. 06/25/21: patient becomes frustrated with sit to stand transfers as she expresses she feels she has a hard time remembering how to do it, has to use right UE 09/16/21 Pt completes sit to stand x 5 today without use of RUE from std height chair. LTG Duration goal met Two Impairment balance dysfunction with high risk for falls Custodial Goal (LTG) Improve balance as evidenced by improvement in Tinnetti balance and gait score to low fall risk range to improve safety in the home and community. 10/31/19: remains high risk for falls 01/02/20: some improvement but still in high risk category 05/26/20: Tinetti score in high risk category 08/28/20: moderate risk for falls 12/02/20: remains in moderate risk for falls. 01/27/21: moderate risk for falls 03/24/21: no significant change noted today but again having poor day. 06/25/21: Moderate risk for falls, though no reported falls over past few months. 09/16/21 No change 12/23/21: improved by 3 points 03/16/22: no further change this treatment period 06/14/22 Tinetti gait and balance score LTG Duration 09/11/22 One Impairment requires armaan-walker for gait, limited to household gait Custodial Goal (LTG) Patient able to ambulate with least restrictive device for functional community distances to improve her functional independence and quality of life. 10/30/19: no progress due to Covid 19. 11/02/19: able to ambulate with quad cane but with very slow speed, household distances, very short community distances . 05/26/20: Now able to ambulate with use of single point cane and use of L4 theraband wrapped around left LE to facilitate left LE internal rotation for improved alignment. Patient unable to don the theraband on her own. Gait is for short distances and very slow at 39 ft in 2 min. 08/28/20: has demonstrated improved gait ability, still using theraband for derotation of LE for more neutral position. Able to consistenly use quad cane and is increasing stride length especially with cues. Now able to ascend and descend 4 stairs with min assist using railing. Mod assist on 6 stairs. 12/02/20: Patient ambulating with SPC, mostly household but some community distances, improved gait alignment with use of theraband for improved alignment. Patient not consistently able to ambulate community distances due to pain in her left LE, and lack of neurological control left LE. Patient may benefit from modification to her current AFO or fabrication of new AFO. 173 ft in 6 minutes 01/27/21: using SPC. Limitations due to left foot, knee and hip pain, right wrist pain 6 min walk test improved to 199.9 feet today 03/24/21: slower 6 min walk test today as above. Has had modification to her AFO with some improvement in her function, but had poor day today. 06/25/21: 180' on 6 min walk test, patient reports left knee feeling wonky, and right UE still painful due to surgery' having stitches out today. Also c/o lack of caregiver recently has limited her walking, no outings. Will try again next session. 09/16/21: Pt completes 6MWT without cane today/ Average gait speed 0.14 12/23/21: Adelaide is now able to ambulate indoors with no assistive device. Outdoors on level surfaces with no device with CGA, uneven surfaces requires cane and CG to mod assist. Continues to improve. 03/16/22: No improvement in speed, though patient continues to be able to ambulate without device most of the time in PT though doesn 't do at home due to fear. Improved confidence on compliant surface in clinic with ability to do without device. 06/14/22: patient progressing with gait without device though ability variability depending on tone and musculoskeletal pain. Today able to ambulate 10 ft with cane but no AFO but difficulty due to lack of knee control/hyperextension at knee in weight-bearing. potential for further improvement. LTG Duration 09/11/22 Assessment Summary Assessment 6 min walk test 136 ft today, had more need for change in direction and was more fatigued today than last session. states not as much walking due to lack of caregiver, will discuss with new caregiver need for increased exercise and walking . Noting imnproved weight shift to left LE with improving ability to step past slightly beyond right leg with left, but dec stance time . Emphasis on need for rhymthmic advancement of LE's with equal stance time for safe ambulation on treadmill and improved function. Pt. verbalizes understandng. Physical Therapy Plan Frequency and Duration Frequency of Treatment 2x/Week Duration of treatment (weeks) 12 Plan of Care Start Date 06/14/22 Plan of Care End Date 09/11/22 Therapeutic Interventions Therapeutic Interventions Aquatic Therapy,Balance Training,Gait Training,Home Exercise Program,Neuromuscular Re-education,Orthotic/ Prosthetic Management,Patient/ Caregiver Education,Self-Care/ Home Management,Taping, Therapeutic Activities, Therapeutic Exercises Modalities Cold Pack/Ice Massage,Hot Packs Next Visit Focus/Plan Next Note Type Treatment Note Next Visit Plan Continue PT, emphasis on weight acceptance left LE, SLS as able. Mirror for visual feedback with standing, gait. Consider trial treadmill with PT standing behind for safety
--- NOTE | 2022-09-01 09:35 | PT.OTN ---
Current Diagnoses Difficulty in walking, not elsewhere classified (09/01/22) Weakness (09/01/22) History of falling (09/01/22) Physical Therapy Treatment Note PT-OP-A Visit Information Start: 05/28/19 08:11 Freq: Status: Active Protocol: Document 09/01/22 13:50 SAK (Rec: 09/01/22 15:30 [facility] [id number]) Out-Patient Physical Therapy Visit Information Visit Information Visit Type Re-Evaluation Visit Start Time 14:35 Visit Number [id number] PT-OP-B Current Condition Start: 05/28/19 08:11 Freq: Status: Active Protocol: Document 06/04/20 11:15 SAK (Rec: 06/05/20 16:34 SAK [id number]) Current Condition History of Current Condition Onset Date 2014 Current Complaints weakness, requires assistance with all mobility and household tasks History of Current Condition Reports that she suffered a stroke in 2014 after surgery for brain aneurysm. CVA caused weakness on the left side of her body, gait and balance difficulty, seizures. PT-OP-C Subjective Start: 05/28/19 08:11 Freq: Status: Active Protocol: Document 09/01/22 13:50 SAK (Rec: 09/01/22 15:30 [facility] [id number]) OP-PT Subjective Patient Comments Patient Comments Patient reports she will be moving to [place] this weekend. Sore left LE, inc sciatic pain possibly due to bending over packing boxes. Today will be last PT appointment with this PT PT-OP-D Balance Start: 05/28/19 08:11 Freq: Status: Active Protocol: Document 05/29/19 14:30 SAK (Rec: 05/30/19 14:24 [facility] [id number]) OP-PT Balance Assessment Sitting Balance Static Sitting Balance Ability Good Dynamic Sitting Balance Ability Fair Standing Balance Static Standing Balance Ability Good Dynamic Standing Balance Ability Fair Device Used hemiwalker right Tinetti Balance Assessment Sitting Balance Sitting Balance Steady, safe Arising from Chair Attempts to Arise Able, requires >1 attempt Standing Balance Immediate Standing Balance Steady with support Standing Balance Steady, wide stance Nudged Response Begins to fall Standing with Eyes Closed Unsteady Turning Step Pattern Turning 360 Degrees Discontinuous steps Stability Turning 360 Degrees Unsteady, grabs/staggers Sitting Down Sitting Down Uses arms or unsteady Gait and Step Initiation of Gait Hesitancy, mult. attempts Right Foot Step Length Does not pass stance ft. Right Foot Step Height Does not clear floor Left Foot Step Length Does not pass stance foot Left Foot Step Height Does not clear floor Step Description Step Symmetry Step length not equal Gait Description Path Description Mild/moderate deviation Trunk Description Marked sway or uses aide Walking Stance Heels apart Scoring and Interpretation Tinetti Composite Score (points) 6 Interpretation of Scores High risk for falls(< 19) Herrera Fall Scale Copyright Permission PT-OP-E Functional Tests Start: 05/28/19 08:11 Freq: Status: Active Protocol: Document 05/14/21 10:50 [facility] (Rec: 05/14/21 11:08 [facility] [id number]) Functional Tests 6 Minute Walk Test Distance 169ft Device Used spc, TB wrapping Comments pt has headache today and feels that may have slowed her down. Timed Up and Go (TUG) Score 107 seconds PT-OP-G Mobility & Gait Start: 05/28/19 08:11 Freq: Status: Active Protocol: Document 05/26/20 11:15 SAK (Rec: 05/26/20 17:04 [facility] [id number]) OP Mobility Evaluation Bed Mobility Rolling min assist to right CGA to left Supine to and from Sit min assist to right CGA to left Transfers Sit to Stand CGA to min assist without UE use Bed to Chair Transfers requires use of right UE but able to do with SBA Floor Transfers unable PT-OP-H Neuro Start: 05/28/19 08:11 Freq: Status: Active Protocol: Document 05/29/19 14:30 SAK (Rec: 05/30/19 14:24 [facility]AK [id number]) Sensation Evaluation Gross Sensation Gross Sensation Left UE Impaired,Left LE Impaired Sensation Description Paresthesia,Numbness Coordination Evaluation Lower Extremity Tests Left Alternate Heel to Knee; Heel to Toe Test Moderate Impairment Heel on Boles Test Moderate Impairment Foot Tapping Test Moderate Impairment PT-OP-K Range of Motion Start: 05/28/19 08:11 Freq: Status: Active Protocol: Document 05/26/20 11:15 SAK (Rec: 05/26/20 17:04 [facility] [id number]) Hip Goniometric Range of Motion Hip jake Hip ROM WFL Yes Comments actively right LE, passively left LE Knee Goniometric Range of Motion Knee jake Knee ROM WFL Yes Ankle and Foot Goniometric Range of Motion Ankle and Foot Left Passive Ankle/Foot ROM WFL No Left Active Ankle/Foot ROM WFL No PT-OP-M Strength Start: 05/28/19 08:11 Freq: Status: Active Protocol: Document 05/26/20 11:15 [facility] (Rec: 05/26/20 17:04 [facility] [id number]) Hip Strength Hip Manual Muscle Testing Left Flexion (L2) 3- Fair- Extension (S1) 2 Poor Abduction 2+ Poor+ External Rotation 3- Fair- Internal Rotation 3+ Fair+ Right Flexion (L2) 4 Good Extension (S1) 4- Good- Abduction 4 Good External Rotation 3+ Fair+ Internal Rotation 4- Good- PT-OP-Q Treatments Start: 05/28/19 08:11 Freq: Status: Active Protocol: Document 08/11/22 11:17 [facility] (Rec: 08/11/22 12:09 [facility] [id number]) Cardio Equipment Recumbent Stepper (Sci-Fit) Duration (Minutes) 10 Resistance 2 Seat Position 9 Other no AFO; cues for left LE alignment, , 10' 1.21 mi Treadmill Other per pt request looked at treadmill to consider trial Other Cardio Equipment Other Cardio Equipment patient shown treadmill, slowest speed, discussed safe use with PT trial next session Therapeutic Exercises Sitting Exercises IT band stretch Side left Reps/Minutes 1min pirifomis stretch Reps/Minutes 1 min Comments manual HS stretch Reps/Minutes 1 min Comments manual HC stretch Sitting Exercise Name PROM Side left Equipment Used manual Reps/Minutes 30 x 4 Standing Exercises sit stands w/ AFO donned Standing Exercise Name no RUE assist, no AFO Equipment Used from black tx table 19 Reps/Minutes 2x8 Comments verbal and manual cues for LLE positioning, weight shift toward left Gait Training Gait Activity gait with AFO Device Used none Surface firm Distance/Duration 138 Treatment Focus balance, safety Comments improved weight shift left wt acceptance Comments mirror for visual feedback- worked w/PT helping dec knee hyperext; PT helped pt get into better knee position and gave min A as pt wt shifted to maintain better knee positioning for better wt acceptance and pt went into SLS on LLE w/R rail x5 6 min walk test Description AFO only Level of Assistance SBA- CGA Surface firm Distance/Duration 182'/6 min Comments Pt reaches for wall 4 times during six minutes but does not lean on it. No cane. Distracted and talking more due to losing caregiver. pre-gait weight shifts Description side to side, stride stance without AFO Device Used none Level of Assistance CG, verbal cues Surface firm Distance/Duration rail on R Treatment Focus increased weight bearing left LE (cued >50-75%) Comments mirror for visual feedback- worked w/PT helping dec knee hyperext; PT helped pt get into better knee position and gave min A as pt wt shifted to maintain better knee positioning for better wt acceptance x13 min Self-Care/Home Management Treatment Education Other Education increas walking at home with new caregiver PT-OP-T Assessment and Plan Start: 05/28/19 08:11 Freq: Status: Active Protocol: Document 09/01/22 13:50 SAK (Rec: 09/01/22 15:30 [facility] [id number]) Physical Therapy Assessment Goals Five Impairment gait speed not adequate for safe community ambulation Dynamic Etching Processor Goal (LTG) Patient able to ambulate 300' in 6 min. TUG score no greater than 30 sec 06/02/20: 134' 08/28/20: 144', likely not as high due to new shoes and wearing old AFO because fits better in new shoes. Requires level 4 theraband for derotation of left LE into more neutral position for gait . 09/19/20: 146 ft 6 min w/ QC and Tb wrapping to LLE. 11/13/20: 153 ft CG w/ SPC 2>3 pt gait w/out metronome w/ reported L glut/ lateral leg burn pain, 2 step brief stand breaks. 11/24/20: progressing 173.7 ft using SPC, predominently 2 pt gait. TUG score 59 sec using SP 01/27/21: TUG 55 sec. , 6 min walk test 199.9 ft with SPC 03/19/21: 6 min walk test 165' , TUG 1:20. Continue with use of theraband for derotation of excess ER left LE with gait . 04/16/21: 6MWT 190 ft w/ SPC and TB wrapping assist hip IR. 04/23/21: 6MWT 181 ftw/ SPC and TB wrapping 06/25/21: 6MWT 180 ft with SPC and TB wrapping. TU sec 09/16/21 - average gait speed 0 .14 m/s on 6MWT which pt completed with no AD (AFO only ). 12/23/21: most recent 6 min walk test 159 ft with no theraband derotation wrap and no assistive device 06/14/22:6 min walk test 195 using cane and AFO 09/02/22: 6 min walk 136 ft without device LTG Duration 09/11/22 Four Impairment requires assistance with bed mobility and transfers Short Term Goal (STG) Patient will be able to perform all bed mobility independently to improve her functional independence. 10/31/19: good goal progress 06/02/20:inconsistent, but min assist most times 11/24/20: Met goal: pt is independent in supine>sit. STG Duration goal met Dynamic Etching Processor Goal (LTG) Patient will be able to perform a floor transfer with SB to min assist. 5x sit to stand score in no more than 15 sec as measure of functional strength for transfers 10/31/19: max assist today 01/02/20: has not been willing to try since 10/31/19 06/02/21: does not feel strong enough to try yet. 06/25/21: 08/28/20: max assistance required 12/02/20: remains at max assist , not recently willing to attempt floor transfer. 5x sit to stand score 26 seconds 01/27/21: not tried recently. 03/24/21: 5x sit to stand 25 sec. No floor transfer today 06/25/21: 5x sit to stand 24 sec. Patient didn't feel up to doing floor transfer, remains a concern 09/16/21: Pt willing to work on floor transfers but demonstrates a great deal of fear avoidance. 12/23/21: 5 Time Sit to Stand today in 30.4 seconds from standard height chair with no use of RUE 06/14/22: Not feeling up to trying floor transfer. Bed mobility independent LTG Duration 09/11/22 Three Impairment weakness left UE and LE s/p CVA Dynamic Etching Processor Goal (LTG) Improve functional strength in left LE, as evidenced by ability to move from sit > < stand without use of UE's. 10/31/19: OT starts tomorrow. Good progress with sit to stand, though mostly using right UE and LE 01/02/20: Improving ability to perform, able to increase weight-bearing through left LE with cues, but still some use of right UE 05/26/20: With manual and visual feedback patient able to transfer sit to stand with only CG A. 08/28/20: inconsistent ability to move sit to stand without using UE's, but able to do transfer without physical assistance 11/24/20: Goal Met 01/27/21: more difficulty recently, having to use hands. Goal reactivated. 03/24/21: difficulty motor planning and performing sit to stand today. 06/25/21: patient becomes frustrated with sit to stand transfers as she expresses she feels she has a hard time remembering how to do it, has to use right UE 09/16/21 Pt completes sit to stand x 5 today without use of RUE from std height chair. LTG Duration goal met Two Impairment balance dysfunction with high risk for falls Fpc Goal (LTG) Improve balance as evidenced by improvement in Tinnetti balance and gait score to low fall risk range to improve safety in the home and community. 10/31/19: remains high risk for falls 01/02/20: some improvement but still in high risk category 05/26/20: Tinetti score in high risk category 08/28/20: moderate risk for falls 12/02/20: remains in moderate risk for falls. 01/27/21: moderate risk for falls 03/24/21: no significant change noted today but again having poor day. 06/25/21: Moderate risk for falls, though no reported falls over past few months. 09/16/21 No change 12/23/21: improved by 3 points 03/16/22: no further change this treatment period 06/14/22 Tinetti gait and balance score high risk range LTG Duration 09/11/22 One Impairment requires armaan-walker for gait, limited to household gait Fpc Goal (LTG) Patient able to ambulate with least restrictive device for functional community distances to improve her functional independence and quality of life. 10/30/19: no progress due to Covid 19. 11/02/19: able to ambulate with quad cane but with very slow speed, household distances, very short community distances . 05/26/20: Now able to ambulate with use of single point cane and use of L4 theraband wrapped around left LE to facilitate left LE internal rotation for improved alignment. Patient unable to don the theraband on her own. Gait is for short distances and very slow at 39 ft in 2 min. 08/28/20: has demonstrated improved gait ability, still using theraband for derotation of LE for more neutral position. Able to consistenly use quad cane and is increasing stride length especially with cues. Now able to ascend and descend 4 stairs with min assist using railing. Mod assist on 6 stairs. 12/02/20: Patient ambulating with SPC, mostly household but some community distances, improved gait alignment with use of theraband for improved alignment. Patient not consistently able to ambulate community distances due to pain in her left LE, and lack of neurological control left LE. Patient may benefit from modification to her current AFO or fabrication of new AFO. 173 ft in 6 minutes 01/27/21: using SPC. Limitations due to left foot, knee and hip pain, right wrist pain 6 min walk test improved to 199.9 feet today 03/24/21: slower 6 min walk test today as above. Has had modification to her AFO with some improvement in her function, but had poor day today. 06/25/21: 180' on 6 min walk test, patient reports left knee feeling wonky, and right UE still painful due to surgery' having stitches out today. Also c/o lack of caregiver recently has limited her walking, no outings. Will try again next session. 09/16/21: Pt completes 6MWT without cane today/ Average gait speed 0.14 12/23/21: Adelaide is now able to ambulate indoors with no assistive device. Outdoors on level surfaces with no device with CGA, uneven surfaces requires cane and CG to mod assist. Continues to improve. 03/16/22: No improvement in speed, though patient continues to be able to ambulate without device most of the time in PT though doesn 't do at home due to fear. Improved confidence on compliant surface in clinic with ability to do without device. 06/14/22: patient progressing with gait without device though ability variability depending on tone and musculoskeletal pain. Today able to ambulate 10 ft with cane but no AFO but difficulty due to lack of knee control/ hyperextension at knee in weight-bearing. potential for further improvement. 09/01/22: Patient has demonstrated ability to occasionally ambulate without device or AFO up to 10 ft. Can walk 200 ft with AFO and no device but with dec weight shift right, excess right LE ER, retracted pelvis. Stairs with step-to pattern with railing, SB-CGA and cues. LTG Duration 09/11/22 Assessment Summary Assessment Patient informs PT she is moving this weekend. Overall has continued to make progress with functional strength, gait, and balance, but LE pain , lack of sensation right LE, lack of consistent caregivers all have affected her ability to make progress in PT. She is supposed to be receiving new AFO soon and am hopeful that will help her make further progress with her function. Recommend she continue PT in [place] after her move. It has been a pleasure working with this patient. Physical Therapy Plan Discharge Physical Therapy Discharge Comments patient moving to [place]
== END 2022-09-03 11:58 | disposition home or self-care (01) ==
LOC: PHYS 14:30
PROVIDERS: PCP Nurse Practitioner; Visit Provider Nurse Practitioner
DX: R53.1 Weakness (principal); R26.2 Difficulty in walking, not elsewhere classified; Z91.81 History of falling
CPT/HCPCS: 97032; 97110; 97112; 97113; 97116; 97140; 97162; 97530; 97535